=== PATIENT | female | born 1970 | race Caucasian/White ===

== ENCOUNTER → 2017-05-05 | Outpatient (CLI) | payer BC ==
[~2017-05-05] MED LIST: AMOX500C2; AMOXIL; ASPI1TAB9 PO; FAMO20TA5; PEPCID; RABE20TA PO; SCR1T1 PO; SULF1TAB38 PO; SUMA100T2 PO; TRAM50TA2 PO; TRM50T; TRM50T PO
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
== END ==
LOC: RAD 08:36
PROVIDERS: ATTEND Orthopaedic Surgery Orthopaedic Surgery of the Spine
DX: M51.26 Other intervertebral disc displacement, lumbar region (principal); M48.06 Spinal stenosis, lumbar region
CPT/HCPCS: 72148

== ENCOUNTER 2020-02-22 16:53 | Inpatient (IN) | payer BC ==
[~2020-02-22] VITALS: Ht 165 cm; Wt 84.0 kg
--- OUTSIDE RECORDS SUMMARY | 2020-02-22 17:07 | XMS REPORT ---
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 [employer] [facility] [place] [facility] Address [address] [address] Care Team Providers Care Electronic Equipment Installer Name Role Phone ZACKARY TRUJILLO Unavailable Unavailable HUERTIRMA, ZACKARY Unavailable HUERTER, ZACKARY Unavailable MARCUS GORMAN Unavailable Unavailable JOVAN STONE Unavailable HUERTER, ZACKARY Unavailable HUERTER, ZACKARY Unavailable HUERTER, ZACKARY Unavailable HUERTER, ZACKARY Unavailable JOSE SILVA Unavailable HUERTER, ZACKARY Unavailable RAYRAY BENITEZ Unavailable RAYRAY BENITEZ Unavailable HUERTER, ZACKARY Unavailable HUERTER, ZACKARY Unavailable HUERTER, ZACKARY Unavailable HUERTER, ZACKARY Unavailable HUERTER, ZACKARY Unavailable HUERTER, ZACKARY Unavailable HUERTER, ZACKARY Unavailable HUERTER, ZACKARY Unavailable HUERTER, ZACKARY Unavailable HUERTER, ZACKARY Unavailable HUERTER, ZACKARY Unavailable HUERTER, ZACKARY Unavailable HUERTER, ZACKARY Unavailable HUERTER, ZACKARY Unavailable HUERTER, ZACKARY Unavailable HUERTER, ZACKARY Unavailable ANNA ORTIZ Unavailable HUERTER, ZACKARY Unavailable Migration, Doctor Unavailable Unavailable Migration, Doctor Unavailable Unavailable Migration, Doctor Unavailable Unavailable Migration, Doctor Unavailable Unavailable Migration, Doctor Unavailable Unavailable Migration, Doctor Unavailable Unavailable Migration, Doctor Unavailable Unavailable Migration, Doctor Unavailable Unavailable Migration, Doctor Unavailable Unavailable Migration, Doctor Unavailable Unavailable HUERTIRMA, ZACKARY Gustafson Unavailable Unavailable Migration, Doctor Unavailable Unavailable Migration, Doctor Unavailable Unavailable MADL, JOSE Unavailable HUERTER, ZACKARY Unavailable HUERTER, ZACKARY Unavailable MADELINE, SHABNAM Unavailable MADELINE, SHABNAM Unavailable MADL, JOSE Unavailable Migration, Doctor Unavailable Unavailable MADELINE, SHABNAM Unavailable MADELINE, SHABNAM Unavailable Migration, Doctor Unavailable Unavailable ZACKARY TRUJILLO Unavailable MADELINE, SHABNAM Unavailable MADELINE, SHABNAM Unavailable MADELINE, SHABNAM Unavailable MADELINE, SHABNAM Unavailable MADELINE, SHABNAM Unavailable MADL, JOSE Unavailable HUZACKARY WILLIAM Unavailable MADELINE, SHABNAM Unavailable MADELINE, SHABNAM Unavailable MADELINE, SHABNAM Unavailable MADELINE, SHABNAM Unavailable MADELINE, SHABNAM Unavailable MADELINE, SHABNAM Unavailable MADELINE, SHABNAM Unavailable Unavailable Unavailable ZACKARY TRUJILLO Unavailable SHABNAM CORREA Unavailable ZACKARY TRUJILLO Unavailable MADELINE, SHABNAM Unavailable MADL, JOSE Unavailable MADELINE, SHABNAM Unavailable MADELINE, SHABNAM Unavailable SHABNAM CORREA Unavailable HUZACKARY WILLIAM Unavailable HUERTIRMA, ZACKARY Unavailable HUERTIRMA, ZACKARY Unavailable SHABNAM CORREA Unavailable EVER BRYANT Unavailable SHABNAM CORREA Unavailable Migration, Doctor Unavailable Unavailable SHABNAM CORREA Unavailable Migration, Doctor Unavailable Unavailable Migration, Doctor Unavailable Unavailable Migration, Doctor Unavailable Unavailable SHABNAM CORREA Unavailable ZACKARY TRUJILLO Unavailable SHABNAM CORREA Unavailable SHABNAM CORREA Unavailable SHABNAM CORREA Unavailable SHABNAM CORREA Unavailable SHABNAM CORREA Unavailable Unavailable Unavailable Allergies The data below is from unstructured sourcesNo Known Allergies No Known Allergies No Known Allergies Unknown Allergies Unknown AllergiesNo Known Allergies No Known Allergies No Known Allergies No Known Allergies No Known Allergies No Known Allergies No Known Allergies No Known Allergies No Known Allergies No Known Allergies No Known Allergies No Known Allergies No Known Allergies No Known Allergies No Known Allergies No Known Allergies Unknown Allergies Unknown Allergies Unknown Allergies Unknown Allergies No Information No Information No Information No Information No Information No Information No Information No Information No Information No Information No Information No Information No Information No Information No Information No Information No Information No Information No Information No Information No Information No Information No Information No Information No Information No Information No Information No Information No Information No Information No Information No Information No Information No Information No Information No Information No Information No Information No Information No Information No Information No Information No Information No Information No Information No Information No Information No Information No Information No Information No Information No Information No Information No Information No Information No Information No Information No Information No Information No Information No Information No Information No Information No Information No Information No Information No Information No Information No Information No Information No Information No Information No Information No Information No Information No Information No Information No Information No Information No Information No Information No Information No Information No Information No Information No Information No Information No Information No Information No Information No Information No Information No Information No Information No Information No Information No Information No Information No Information No Information No Information No Information No Information No Information No Information No Information No Information No Information No Information No Information No Information No Information No Information No Information No Information No Information No Information No Information No Information No Information No Information No Information No Information No Information No Information No Information No Information No Information No Information No Information No Information No Information No Information No Information No Information No Information Medications Medication Ingredient Drug Dose Dates Status Sig Sig Care Class(es) (Normalized) (Original) Provid er azithromyci Azithromyci Macrolide 500 mg 10-30-19 Active take 2 Zithromax no n 250 mg n Antimicrobi 15 tablets by Z-Edd 250 mg name oral tablet Translation al mouth once 2 tablet by (1 source.) s: [ daily, then Oral route 1 Zithromax take 1 time per day Z-Edd 250 tablet by for 1 days mg] mouth once then take 1 daily, then tab daily on take 2-5 days 2-5 27 tablets by Oct, 2014 mouth Active ciprofloxac Ciprofloxac Quinolone 500 mg 10-18-19 Active take 1 Cipro 500 mg no in 500 mg in Antimicrobi 13 tablet by take 1 nam e oral tablet Translation al mouth every tablet by (1 source.) s: [ Cipro twelve hours Oral route 500 mg] every 12 hours for 5 day(s) Oct, Active doxycycline Doxycycline Tetracyclin 100 mg 07-02-20 Active no Doxycycline no hyclate 100 Translation e-class 18 - information Hyclate 10 0 name mg oral s: [ Drug 07-09-20 mg Orally capsule (1 Doxycycline 18 twice a day source.) Hyclate 100 1 capsule mg] 12h Jun, Jul, 7 days Active meclizine Meclizine Antiemetic 25 mg 11-13-19 Active take 1 mec lizine 25 no hydrochlori Translation 15 tablet by mg 1 tablet name de 25 mg s: [ mouth four by Oral oral tablet meclizine times daily route 4 (1 source.) 25 mg] as needed times per day PRN Nov, Active predniSONE predniSONE no 40 mg 01-01-20 Active take 2 Predn iSONE no 20 mg oral Translation information 14 tablets by 20 mg 2 name tablet (1 s: [ mouth once tablet by source.) PredniSONE daily Oral route 1 20 mg] time per day for 5 day(s) Dec, Active pseudoePHED Pseudoephed alpha-Adren 60 mg 10-15-19 Active no SudoGest 60 no rine rine ergic 18 information mg Orally name hydrochlori Translation Agonist every 6 hrs de 60 mg s: [ 1 tablet as oral tablet SudoGest 60 needed 6h 12 (1 source.) mg] Oct, 2017 5 days Active Problems Active Problems Problem Normalized Date Last Normalized Normalized Provider Fa cility Classification Problem(s) Recorded Problem Problem Sta tus Duration Thyroid Acquired Chronic Active Doctor Community disorders (20 hypothyroidism [facility] sources.) Translations: of [facility] [ Acquired [place] ([address]855) hypothyroidism , - Acquired hypothyroidism E03.9] Deficiency and Anemia, Episodic Active WILLIAM CORREIA MD Not Available other anemia unspecified (53485) (3 sources.) Abdominal Diaphragmatic Episodic Active no name no infor mation hernia (2 hernia without sources.) mention of obstruction or gangrene Esophageal Gastro-esophag Chronic Active [facility] disorders (20 eal reflux [address] [place] [address] sources.) disease of [facility] without [place] (94404) esophagitis Translations: [ - Gastro-esophag eal reflux disease without esophagitis K21.9, Gastro-esophag eal reflux disease without esophagitis, Gastro-esophag eal reflux disease without esophagitis] Headache; Headache Episodic Active [facility] including Translations: [address] [place] [address] migraine (20 [ - [facility] [place] sources.) headache R51] [place] ([address]11) Headache; Migraine Chronic Active Doctor Community including without aura, [facility] migraine (20 not of [facility] sources.) intractable, [place] ([address]84) without status migrainosus Translations: [ - Migraine without aura and without status migrainosus, not intractable G43.009, Migraine without aura and without status migrainosus, not intractable, Migraine without aura and without status migrainosus, not intractable] Past or Other Problems Problem Normalized Date Last Normalized Normalized Provider Fa cility Classification Problem(s) Recorded Problem Problem Sta tus Duration Spondylosis; Other Chronic Completed DONTRELL IPSEN , Not Av ailable intervertebral intervertebral (14398) disc disc disorders; displacement, other back lumbar region problems (2 Translations: sources.) [ SPINAL STENOSIS, LUMBAR REGION] Procedures Procedure Normalized Procedure Procedure Result Performer Facility Date 06-17-2014 Assay of magnesium no information no name [facility] ([id number]) 06-17-2014 Assay of thyroid no information no name [facility] stimulating hormone [facility] ([id number]) 09-28-2014 Blood count complete no information no name [facility] auto&auto difrntl [facility] (97313) 06-17-2014 Blood count complete no information no name [facility] auto&auto difrntl [facility] (78846) 11-27-2013 Blood count complete no information no name [facility] auto&auto difrntl wbc Center [facility] (61664) 06-16-2013 Blood count complete no information no name [facility] auto&auto difrntl wbc Center [facility] (39164) 09-28-2014 Collection venous no information no name [facility] blood venipuncture [facility] (10439) 06-17-2014 Collection venous no information no name [facility] blood venipuncture [facility] (25985) 11-27-2013 Collection venous no information no name [facility] blood venipuncture [facility] (03952) 06-17-2014 Comprehensive no information no name [facility] metabolic panel [facility] (00216) 06-23-2013 Ct abdomen & pelvis no information no name [facility] w/o contrst 1/> body [facility] (70457) 06-17-2014 Ecg routine ecg no information no name [facility] w/least 12 lds trcg [facility] w/o i&r [place] ([address]) 10-07-2014 Echo tthrc r-t 2d no information no name [facility] w/wom-mode compl [facility] spec&colr d [place] (16721) 10-07-2014 Gonadotropin chorionic no information no name [facility] Health qualitative [facility] (01290) 06-17-2014 Lipid panel no information no name [facility] H ealth [facility] (63641) 12-31-2013 Mri spinal canal no information no name [facility] lumbar w/o contrast [facility] (05987) 10-07-2014 Myocardial spect no information no name [facility] multiple studies [facility] (77470) 10-07-2014 Noninvasive ear/pulse [facility] information [facility] single deter [facility] (68497) 06-16-2014 Xtrnl ecg & 48 hr no information no name [facility] (48902) Immunizations The data below is from unstructured sources No Known Immunizations No Known Immunizations No Known ImmunizationsNo immunization records.No immunization records. No Known Immunizations No Known Immunizations No Known Immunizations No Known Immunizations No Known Immunizations No Known Immunizations No Known Immunizations No Known Immunizations No Known Immunizations No Known Immunizations No Known Immunizations No Known Immunizations No Known Immunizations No Known Immunizations No Known Immunizations No Known Immunizations No Known Immunizations No Known Immunizations No Known Immunizations No Known Immunizations No Known Immunizations No Known Immunizations No Known Immunizations No Known Immunizations No Known Immunizations No Known Immunizations No Known Immunizations No Known Immunizations No Known Immunizations No Known Immunizations No Known Immunizations No Known Immunizations No Known Immunizations No Known Immunizations No Known Immunizations No Known Immunizations No Known Immunizations No Known Immunizations No Known Immunizations No Known Immunizations No Known Immunizations No Known Immunizations No Known Immunizations No Known Immunizations No Known Immunizations No Known Immunizations No Known Immunizations No Known Immunizations No Known Immunizations No Known Immunizations No Known Immunizations No Known Immunizations No Known Immunizations No Known Immunizations No Known Immunizations No Known Immunizations No Known Immunizations No Known Immunizations No Known Immunizations No Known Immunizations No Known Immunizations No Known Immunizations No Known Immunizations No Known Immunizations No Known Immunizations No Known Immunizations No Known Immunizations No Known Immunizations No Known Immunizations No Known Immunizations No Known Immunizations No Known Immunizations No Known Immunizations No Known Immunizations No Known Immunizations No Known Immunizations No Known Immunizations No Known Immunizations No Known Immunizations No Known Immunizations No Known Immunizations No Known Immunizations No Known Immunizations No Known Immunizations No Known Immunizations No Known Immunizations No Known Immunizations No Known Immunizations No Known Immunizations No Known Immunizations No Known Immunizations No Known Immunizations No Known Immunizations No Known Immunizations No Known Immunizations No Known Immunizations No Known Immunizations No Known Immunizations No Known Immunizations No Known Immunizations No Known Immunizations No Known Immunizations No Known Immunizations No Known Immunizations No Known Immunizations No Known Immunizations No Known Immunizations No Known Immunizations No Known Immunizations No Known Immunizations No Known Immunizations No Known Immunizations No Known Immunizations No Known Immunizations No Known Immunizations No Known Immunizations No Known Immunizations No Known Immunizations No Known Immunizations No Known Immunizations No Known Immunizations No Known Immunizations No Known Immunizations No Known Immunizations No Known Immunizations No Known Immunizations No Known Immunizations No Known Immunizations No Known Immunizations No Known Immunizations No Known Immunizations No Known Immunizations No Known Immunizations No Known Immunizations No Known Immunizations No Known Immunizations No Known Immunizations No Known Immunizations No Known Immunizations No Known Immunizations No Known Immunizations No Known Immunizations No Known Immunizations No Known Immunizations No Known Immunizations No Known Immunizations No Known Immunizations No Known Immunizations No Known Immunizations No Known Immunizations Results Test Name Value Interpretation Reference Range Date Time Fa cility (Normalized) (Normalized) (Medline Reference) not yet categorized on null BLO 1+ (no code) [facility] (79633) Exp date [id number] (no code) [facility] (43175) KET clear~yellow~non (no code) [facility] e~neg~neg~neg [facility] (84707) LISA neg~3+ (no code) [facility] (98736) SG 1.010 (no code) [facility] (44560) URO 0.2 (no code) [facility] (80651) laboratory on null pH (Bld) 7.0 [pH] (no code) 7.38 - 7.42 [pH] [facility] (95094) Protein (U) Negative (no code) 0 - 20 mg/dL [facility] [Mass/Vol] [facility] (70187) urinalysis on 2019-01-01 Amphetamines Ql Negative (no code) [facility] th (U) [facility] (67026) Benzodiazepines Negative (no code) [facility] Ql (U) [facility] (31912) Benzoylecgonine Negative (no code) [facility] Ql (U) [facility] (81996) Creatinine (U) 11.9 mg/dL (L) Critical access hospital [Mass/Vol] [facility] (17405) Methadone Ql (U) Negative (no code) [facility] (34170) Opiates Ql (U) Negative (no code) [facility] (79694) Phencyclidine Ql Negative (no code) [facility] lt (U) [facility] (73166) Specific gravity 1.002 (L) [facility] lt (U) [[facility]] [facility] (01229) Tetrahydrocannab Negative (no code) [facility] inol Ql (U) [facility] (43557) other on 2019-01-01 Alphahydroxyalpr Negative (no code) [facility] azolam [facility] (20309) Alphahydroxymida Negative (no code) [facility] zolam [facility] (78967) Alphahydroxytria Negative (no code) [facility] (45742) Aminoclonazepam Negative (no code) [facility] (28316) Hydroxyethylflur Negative (no code) [facility] azepam [facility] (63812) Lorazepam Negative (no code) [facility] (66661) Nordiazepam Negative (no code) [facility] (95014) Oxazepam Negative (no code) [facility] (68765) Temazepam Negative (no code) [facility] (79640) Abnormal no information (no code) Critical access hospital Specimen [facility] Test: [facility] (22043) Barbiturates Negative (no code) [facility] (32263) COMMENT no information (no code) [facility] (62088) medMATCH CONSISTENT (no code) [facility] (60302) medMATCH CONSISTENT (no code) [facility] (23666) medMATCH aOH CONSISTENT (no code) [facility] alprazol[facility] (69783) medMATCH aOH CONSISTENT (no code) [facility] (85267) medMATCH aOH CONSISTENT (no code) [facility] triazol[facility] (35569) medMATCH CONSISTENT (no code) [facility] Barbiturates [facility] (79422) medMATCH Cocaine CONSISTENT (no code) [facility] Metab [facility] (99135) medMATCH CONSISTENT (no code) [facility] Lorazepam [facility] (25605) medMATCH CONSISTENT (no code) [facility] Marijuana Metab [facility] (18263) medMATCH CONSISTENT (no code) [facility] Methadone Metab [facility] (24203) medMATCH INCONSISTENT (no code) [facility] Nordiazepam [facility] (42329) medMATCH OH,Et CONSISTENT (no code) [facility] flurazepam [facility] (98554) medMATCH Opiates CONSISTENT (no code) [facility] (52336) medMATCH INCONSISTENT (no code) [facility] Oxazep[facility] (69338) medMATCH CONSISTENT (no code) [facility] Oxycodone [facility] (33397) medMATCH CONSISTENT (no code) [facility] Phencyclidine [facility] (19942) medMATCH INCONSISTENT (no code) [facility] Temazep[facility] (67374) Oxidants Ql (U) Negative (no code) [facility] Heal th [facility] (73406) Oxycodone Ql (U) Negative (no code) [facility] (16579) pH (U) 6.81 [pH] (no code) 4.6 - 8 [pH] [facility] (40125) Prescribed Drug Tramadol (no code) [facility] 1 [facility] (63460) Prescribed Drug Diazepam (no code) [facility] 2 [facility] (12672) urinalysis on 2018-12-12 Amphetamines Ql Negative (no code) [facility] (U) [facility] (93565) Benzodiazepines Positive (A) [facility] Ql (U) [facility] (94795) Benzoylecgonine Negative (no code) [facility] Ql (U) [facility] (19359) Creatinine (U) 84.2 mg/dL (no code) Critical access hospital [Mass/Vol] [facility] (01709) Methadone Ql (U) Negative (no code) [facility] (72965) Opiates Ql (U) Positive (A) [facility] (24680) Phencyclidine Ql Negative (no code) [facility] (U) [facility] (92073) Tetrahydrocannab Negative (no code) [facility] inol Ql (U) [facility] (59054) other on 2018-12-12 Alphahydroxyalpr Negative (no code) [facility] azolam [facility] (24057) Alphahydroxymida Negative (no code) [facility] zolam [facility] (71587) Alphahydroxytria Negative (no code) [facility] (53886) Aminoclonazepam Negative (no code) [facility] (13848) Codeine Negative (no code) [facility] (30516) Hydrocodone 95 (H) [facility] (73498) Hydromorphone 159 (H) [facility] (45555) Hydroxyethylflur Negative (no code) [facility]20722[facility] Lorazepam Negative (no code) [facility] (81581) Morphine Negative (no code) [facility] (35377) Nordiazepam 343 (H) [facility] (90048) Norhydrocodone 591 (H) [facility] (86645) Oxazepam 466 (H) [facility] (08423) Temazepam 786 (H) [facility] (76232) Barbiturates Negative (no code) [facility] (75176) COMMENT no information (no code) [facility] (24444) medMATCH CONSISTENT (no code) [facility] Aminoclonazepam [facility] (48130) medMATCH CONSISTENT (no code) [facility] Amphetamines [facility] (84791) medMATCH aOH CONSISTENT (no code) [facility] alprazolam [facility] (05679) medMATCH aOH CONSISTENT (no code) [facility] midazolam [facility] (27236) medMATCH aOH CONSISTENT (no code) [facility] triazolam [facility] ([id number]) medMATCH CONSISTENT (no code) [facility] Barbiturates [facility] ([id number]) medMATCH Cocaine CONSISTENT (no code) [facility] Metab [facility] (61550) medMATCH Codeine CONSISTENT (no code) [facility] (30814) medMATCH INCONSISTENT (no code) [facility] Hydrocodone [facility] (12712) medMATCH INCONSISTENT (no code) [facility] Hydromorphone [facility] (70007) medMATCH CONSISTENT (no code) [facility] Lorazepam [facility] (02578) medMATCH CONSISTENT (no code) [facility] Marijuana Metab [facility] (16739) medMATCH CONSISTENT (no code) [facility] Methadone Metab [facility] (21882) medMATCH CONSISTENT (no code) [facility] Morphine [facility] (55028) medMATCH CONSISTENT (no code) [facility] Nordiazepam [facility] (25909) medMATCH INCONSISTENT (no code) [facility] Norhydrocodone [facility] (51095) medMATCH [place],Et CONSISTENT (no code) [facility] Healt flurazepam [facility] (41320) medMATCH CONSISTENT (no code) [facility] Oxazepam [facility] (72493) medMATCH CONSISTENT (no code) [facility] Oxycodone [facility] (37905) medMATCH CONSISTENT (no code) [facility] Phencyclidine [facility] (65542) medMATCH CONSISTENT (no code) Critical access hospital Temazepam [facility] (00043) Oxidants Ql (U) Negative (no code) [facility] (68897) Oxycodone Ql (U) Negative (no code) [facility] Hea [facility] (44622) pH (U) 7.19 [pH] (no code) 4.6 - 8 [pH] [facility] (07463) Prescribed Drug Tramadol (no code) [facility] 1 [facility] (83017) Prescribed Drug Diazepam (no code) [facility] 2 [facility] (21059) thyroid on 2018-12-05 Free T4 0.8 ng/dL (N) 0.9 - 2.2 ng/dL [facility] [Mass/Vol] [facility] (95605) TSH Qn 2.43 m[IU]/L (N) 0.4 - 4 m[IU]/L [facility] (21710) laboratory on 2018-12-05 Albumin 4.0 g/dL (N) 3.4 - 5.4 g/dL [facility] [Mass/Vol] [facility] (16451) Albumin/Globulin 1.4 {ratio} (N) 1 - 2.5 {ratio} Comm [facility] [Mass ratio] [facility] (86676) ALP [Catalytic 60 U/L (N) 44 - 147 U/L [facility] Health activity/Vol] [facility] (09366) ALT [Catalytic 9 U/L (N) 4 - 40 U/L [facility] ealt activity/Vol] [facility] (71025) AST [Catalytic 19 U/L (N) 10 - 34 U/L [facility] activity/Vol] [facility] (40445) Bilirubin 0.3 mg/dL (N) 0.1 - 1.2 mg/dL [facility] [Mass/Vol] [facility] (34639) Calcium 9.7 mg/dL (N) 8.5 - 10.2 mg/dL [facility] [Mass/Vol] [facility] (99619) Chloride 103 mmol/L (N) 95 - 106 mmol/L [facility] [Moles/Vol] [facility] (79569) CO2 [Moles/Vol] 28 mmol/L (N) 23 - 29 mmol/L [facility] (02902) Creatinine 0.76 mg/dL (N) [facility] h [Mass/Vol] [facility] (93100) GFR/1.73 sq M 108 (N) 90 - 120 [facility] predicted among mL/min/{1.73_m2} mL/min/{1.73_m2} [facility] f [facility] blacks MDRD [facility] (S/P/Bld) [Vol (28018) rate/Area] GFR/1.73 sq 93 (N) 90 - 120 Community [facility]al th M.predicted MDRD mL/min/{1.73_m2} mL/min/{1.73_m2} [facility] (S/P/Bld) [Vol [facility] rate/Area] (20212) Globulin (S) 2.8 g/dL (N) 2 - 3.5 g/dL [facility] ealt [Mass/Vol] [facility] (60813) Glucose 98 mg/dL (N) 60 - 125 mg/dL [facility] [Mass/Vol] [facility] (51721) Potassium 4.2 mmol/L (N) 3.7 - 5.2 mmol/L [facility] [Moles/Vol] [facility] (28245) Protein 6.8 g/dL (N) 6.4 - 8.3 g/dL [facility] [Mass/Vol] [facility] (01600) Sodium 139 mmol/L (N) 135 - 145 mmol/L [facility] [Moles/Vol] [facility] (84830) Urea nitrogen 7 mg/dL (N) 7 - 20 mg/dL [facility] [Mass/Vol] [facility] (79505) Urea NOT APPLICABLE (no code) [facility]alt [facility] nitrogen/Creatin [facility] ine [Mass ratio] [facility] (42759) other on 2017-09-10 MYCOPLASMA 97 (no code) Community [facility]alt [facility] PNEUMONIAE [facility] (IGM) [facility] (21039) Vital Signs Vital Sign Value Interpretation Reference Date Time Care Prov ider Facility (Normalized) (Normalized) Range BMI (Body Mass 29.4 kg/m2 (no code) 15 - 25 kg/m2 07-02-2018 HILDA ORLANDO [facility] Community Index) 17:00-0400 29118 [facility] (45009) Body height 165.1 cm (no code) cm 06-16-2014 Doctor Com ivy 17:20-0400 Migration [facility] (48067) Body height 165.1 cm (no code) cm 12-31-2013 [facility] 18:35-0400 61238 [facility] (76774) Body height 165.1 cm (no code) cm 11-27-2013 ZACKARY NATALIIA [facility] 16:50-0400 29671 [facility] (91999) Body height 165.1 cm (no code) cm 06-16-2013 [facility] 13:28-0400 87577 (Other Health Center Phone: of [facility] (02631) Body 98 [degF] (no code) 97.8 - 99.0 07-02-2018 ZACKARY CRAWFORD [facility] Temperature [degF] 17:00-0400 10729 Health Cente r of [facility] (07035) Body 98.1 [degF] (no code) 97.8 - 99.0 11-12-2014 ZACKARY WILLIAMSON [facility] Temperature [degF] 12:57-0400 32561 Health Cente r of [facility] (23980) Body 98.1 [degF] (no code) 97.8 - 99.0 10-30-2014 ZACKARY IRMA [facility] Temperature [degF] 14:35-0500 77140 Health Cente r of [facility] (02825) Body 99.7 [degF] (no code) 97.8 - 99.0 10-15-2014 ZACKARY WILLIAMSON [facility] Temperature [degF] 16:24-0500 99598 Health Cent[facility] r [facility] (36231) Body 98.9 [degF] (no code) 97.8 - 99.0 09-28-2014 JOSE [facility] Temperature [degF] 15:22-0500 62697 Health Cente r of [facility] (81288) Body 98.9 [degF] (no code) 97.8 - 99.0 06-16-2014 [facility] temperature [degF] 17:20-0400 [facility] (36684) Body 98.9 [degF] (no code) 97.8 - 99.0 06-13-2014 [facility] Community Temperature [degF] 14:10-0400 36586 Health Cent[facility] (39891) Body 97.4 [degF] (no code) 97.8 - 99.0 05-05-2014 SHABNAM [facility] Temperature [degF] 16:11-0400 93592 Health Cent[facility] r [facility] (13352) Body 99 [degF] (no code) 97.8 - 99.0 12-31-2013 SHABNAM [facility] temperature [degF] 18:35-0400 10820 Health Cent[facility] r [facility] (31760) Body 97.5 [degF] (no code) 97.8 - 99.0 11-27-2013 ZACKARY WILLIAMSON [facility] temperature [degF] 16:50-0400 39209 Health Cente r of [facility] (94153) Body 98.5 [degF] (no code) 97.8 - 99.0 06-16-2013 SHABNAM ROBLERO [facility] temperature [degF] 13:280400 41365 (Other Health Cent er Phone: of [facility] ) [place] (20340) Body weight 80.54 kg (no code) kg 11-12-2014 [facility] 12:57-0400 11091 [facility] (91095) Body weight 80.29 kg (no code) kg 10-30-2014 [facility] 14:35-0500 60191 [facility] (73773) Body weight 78.93 kg (no code) kg 10-15-2014 [facility] 16:24-[address] [place] [address] (40574) Body weight 79.84 kg (no code) kg 10-07-2014 Doctor Com munity 08:39-0500 [facility] (03185) Body weight 81.19 kg (no code) kg 09-28-2014 JOSE SILVA [facility] 15:22-0500 12957 [facility] (64535) Body weight 78.79 kg (no code) kg 06-16-2014 Doctor Com munity 17:20-0400 [facility] (88726) Body weight 79.43 kg (no code) kg 06-13-2014 SHABNAM CORREA [facility] 14:10-[id number] [place] [address] ([id number]) Body weight 76.89 kg (no code) kg 05-05-2014 SHABNAM [facility] 16:11-[address] [place] [address] (72075) Body weight 78.84 kg (no code) kg 12-31-2013 SHABNAM [facility] 18:35-[id number] [place] [address] (49877) Body weight 77.88 kg (no code) kg 11-27-2013 [facility] 16:50-0400 82088 [facility] (16755) Body weight 74.71 kg (no code) kg 06-16-2013 [facility] 13:28-0400 50953 (Other Health Center Phone: of [facility] (49665) Height 165.1 cm (no code) cm 07-02-2018 ZACKARY [facility] 17:00-[id number] [place] [address] (50181) Height 165.1 cm (no code) cm 11-12-2014 ZACKARY [facility] 12:57-[id number] [place] [address] (16515) Height 165.1 cm (no code) cm 10-30-2014 ZACKARY [facility] 14:35-[address] [place] [address] (81647) Height 165.1 cm (no code) cm 10-15-2014 ZACKARY [facility] 16:24-[address] [place] [address] (07590) Height 165.1 cm (no code) cm 10-07-2014 Doctor Commun ity 08:39-0500 Migration [facility] (54029) Height 165.1 cm (no code) cm 09-28-2014 JOSE SILVA Com munity 15:22-[address] [place] [address] (52196) Height 165.1 cm (no code) cm 06-13-2014 SHABNAM MADELINE Fl [facility] 14:100400 [address] [place] [address] (06994) Height 165.1 cm (no code) cm 05-05-2014 [facility] mmunity 16:11-[id number] [place] [address] ([id number]) Weight 80.15 kg (no code) kg 07-02-2018 ZACKARY [facility] 17:00-[address] [place] [address] ([id number]) Interventions No Information Plan of Treatment The data below is from unstructured sources Activity Details Follow Up 3 Months Reason: Activity Details Follow Up if not improving with PCP or reg follow up Reason: Activity Details Follow Up prn Reason: Activity Details Follow Up 4 Months Reason: Goals No Information Social History The data below is from unstructured sources History Response Recorde d Date/Time Hx Family Cancer Y GRANDPARENTS BOTH SIDES OF FAMILY 04/02/13 11:45pm Hx Family Cardiac Disorders Y 04/02/13 11:45pm Hx Family Myocardial Infarction Y PA TERNAL GRANDFATHER, PATIENTS SON AT AGE 16. 04/02/13 11:45pm History Response Recorde d Date/Time Alcohol Use Denies Use 0 04/02/13 11:45pm Recreational Drug Use N 04/02/13 11:45pm Functional Status The data below is from unstructured sourcesNo functional status results. Mental Status No Information Encounters Encounter Normalized Encounter Encounter Diagnosis Care Provi debbie Organization Date Type 05-22-2019 [facility] Acute cystitis with NADJA HERCULES (no [facility] CARE hematuria phone) CARE (no phone ) 05-22-2019 - 05-22-2019 04-28-2019 [facility] Cervical disc ZACKARY TRUJILLO ( no [facility] - disorder, unspecified, phone) (no mary ne) 04-28-2019 unspecified cervical - region 04-28-2019 10-15-2017 Patient encounter no information no name no or ganization name 09-10-2017 Patient encounter no information no name no or ganization name 09-21-2014 Patient encounter no information no name no or ganization name 06-22-2014 Patient encounter no information no name no or ganization name - 09-20-2014 01-12-2014 Patient encounter no information no name no or ganization name 07-02-2013 Patient encounter no information no name no or ganization name NEGATED Patient encounter no information no name no or ganization name 04-02-2013 - 04-03-2013 08-01-2012 Patient encounter no information no name no or ganization name 10-16-2019 Patient encounter no information ZACKARY TRUJILLO ([facility] o [facility] phone) [facility] (no phone) 10-14-2019 Patient encounter no information (no phone) [facility] procedure [facility] (no phone) 05-22-2019 Patient encounter no information no name no or ganization name procedure 04-28-2019 Patient encounter no information no name no or ganization name procedure 01-01-2019 Patient encounter no information no name no or ganization name procedure 12-12-2018 Patient encounter no information no name no or ganization name procedure 12-05-2018 Patient encounter no information no name no or ganization name procedure 05-05-2017 Patient encounter no information no name no or ganization name procedure 01-08-2020 Telephone encounter Cervical disc ZACKARY HUERTER (no [facility] disorder, unspecified, phone) (no phone) unspecified cervical region 01-05-2020 Telephone encounter Cervical disc ZACKARY HUERTER (no [facility] disorder, unspecified, phone) (no phone) unspecified cervical region 10-16-2019 Telephone encounter Cervical disc ZACKARY HUERTER (no [facility] disorder, unspecified, phone) (no phone) unspecified cervical region 09-17-2019 Telephone encounter Cervical disc ZACKARY HUERTER (no [facility] disorder, unspecified, phone) (no phone) unspecified cervical region 08-21-2019 Telephone encounter Cervical disc ZACKARY SHEPHERDERTER (no [facility] disorder, unspecified, phone) (no phone) unspecified cervical region 08-07-2019 Telephone encounter no information ZACKARY SHEPHERDERTER (n o [facility] phone) (no phone) 07-24-2019 Telephone encounter Cervical disc ZACKARY HUERTER (no [facility] disorder, unspecified, phone) (no phone) unspecified cervical region 06-25-2019 Telephone encounter Cervical disc ZACKARY SHEPHERDERTER (no [facility] disorder, unspecified, phone) (no phone) unspecified cervical region 05-30-2019 Telephone encounter no information ZACKARY SHEPHERDERTER (n o [facility] - phone) (no phone) 05-30-2019 - 05-30-2019 05-28-2019 Telephone encounter Cervical disc ZACKARY SHEPHERDERTER (no [facility] - disorder, unspecified, phone) (no mary ne) 05-28-2019 unspecified cervical - region 05-28-2019 05-19-2019 Telephone encounter no information ZACKARY SHEPHERDERTER (n o [facility] - phone) (no phone) 05-19-2019 - 05-19-2019 04-30-2019 Telephone encounter Cervical disc ZACKARY SHEPHERDERTER (no [facility] - disorder, unspecified, phone) (no mary ne) 04-30-2019 unspecified cervical - region 04-30-2019 Medical Equipment No Information Payers The data below is from unstructured sources Payer Name Policy Number Subscriber Name Relationship [place] [employer] [facility] [id number] Sudhir Maya 02 History general Narrative - Reported Note Type Note Facility History general Narrative - Reported Type Medical gastric ulcer History Medical pyloric stenosis s/p dilati on History Medical Arthritis History Medical migraine headaches History Medical chronic pain History Medical anemia History Medical MRSA History Medical mitral valve prolapse History Medical heart murmur History Medical asthma History Medical blood transfusion History Surgical oopherectomy (L) History Surgical section x2 History Surgical cholecystectomy History Hospitaliz see surgeries ation History Hospitaliz numerous pneumonias x 4 ation History Hospitaliz flesh eating strep ation History [facility] ([id number]) Summary Purpose eClinicalWorks SubmissioneClinicalWorks SubmissioneClinicalWorks SubmissioneClinicalWorks SubmissioneClinicalWorks SubmissioneClinicalWorks SubmissioneClinicalWorks SubmissioneClinicalWorks SubmissioneClinicalWorks SubmissioneClinicalWorks SubmissioneClinicalWorks SubmissioneClinicalWorks SubmissioneClinicalWorks SubmissioneClinicalWorks Submission Advance Directives Directive Response Recor ded Date Advance Directives N 11:45pm Health Care Power of Die Designer Apprentice N 04/02/13 11:45pm Organ Donor Y 04/02/13 1 1:45pm Directive Response Recor ded Date/Time Advance Directives No 11:45pm Health Care Power of Die Designer Apprentice No 04/02/13 11:45pm Organ Donor Yes 04/02/13 11:45pm Discharge Instructions No hospital discharge instructions. Additional Source Comments This clinical document has been generated using [employer] software that has been certified by the Office of the National Coordinator for Health Information Technology (ONC 15.99.04.3023.Diam.31.00.0.918951) and the National Committee for Image Archivist (NCQA, as an eMeasure certified technology). FOR RECORDS PERTAINING TO PATIENTS WHO ARE OR HAVE BEEN ENROLLED IN A CHEMICAL D EPENDENCY/SUBSTANCE ABUSE PROGRAM, SOME INFORMATION MAY BE OMITTED. This clinica l summary was aggregated from multiple sources. Caution should be exercised in using it in the provision of clinical care. This summary normalizes information from multiple sources, and as a consequence, information in this document may ma terially change the coding, format and clinical context of patient data. In troy tion, data may be omitted in some cases. CLINICAL DECISIONS SHOULD BE BASED ON T HE PRIMARY CLINICAL RECORDS. [employer] provides no warranty or guara ntee of the accuracy or completeness of information in this document.The followi ng information is based on time limited clinical information UNRECOGNIZED CONTENT PROVIDED BELOW FOR UNRECOGNIZED SECTION MEDICAL (GENERAL) HISTORY Type Description Date Medical History gastric ulcer Medical History pyloric stenosis s/p dilation Medical History Arthritis Medical History migraine headaches Medical History chronic pain Medical History anemia Medical History MRSA Medical History mitral valve prolapse Medical History heart murmur Medical History asthma Medical History blood transfusion Surgical History oopherectomy (L) Surgical History section x2 Surgical History cholecystectomy Hospitalization History see surgeries Hospitalization History numerous pne umonias x 4 Hospitalization History flesh eating strep UNRECOGNIZED CONTENT PROVIDED BELOW FOR UNRECOGNIZED SECTION REASON FOR VISIT ValiumControlled refill- EarlyControlled med refillControlled Med RefillControll ed Med Refill 06/28Controlled Med Refill 07/24c/o Sinus Infection b9aeiee kPage mA , severe headaches with facial pain kPage mA , has alot of drainage but also has some pressure KPage MARIAH [id number]-MigEMR- [id number]-MigEMR-MigControlled Med Refill
--- OUTSIDE RECORDS SUMMARY | 2020-02-22 17:07 | XMS REPORT ---
Author Author Marion CORREA Organization [facility] Address [address] [place] [address] Care Team Providers Care Crown Presser Name Role Phone SHABNAM CORREA Unavailable PROBLEMS Type Condition ICD9-CM Code OVC80-YE Code Onset Dates Condition S tatus SNOMED Code Problem Acquired hypothyroidism E03.9 Active 894026447 Problem Gastro-esophageal reflux disease without esophagitis K21.9 Active 596926154 Problem Cervical disc disease M50.90 Active 578793214 Problem Dyspepsia R10.13 Active 417419570 Problem Migraine without aura and without status migrain osus, not intractable G43.009 Active [id number] ALLERGIES No Information ENCOUNTERS Encounter Location Date Diagnosis [facility] [address] [id number] [address] [place] [address] January, Cervical disc disease M50.[address] 340B [id number] [place] [address] January, Cervical disc disease M50.90 [facility] [address] [id number] [address] [place] [address] Dec, [facility] [address] [id number] [address] [place] [address] Nov, [facility] [address] [id number] [address] [place] [address] Nov, Cervical disc disease M50.90 [facility] [address] [id number] [address] [place] [address] Oct, [facility] [address] [id number] [address] [place] [address] Oct, Cervical disc disease M50.90 [facility] [address] [id number] [address] [place] [address] 13 Oct, 2019 Contusion of left knee, init ial encounter S80.02XA [facility] [address] [id number] [address] [place] [address] 13 Oct, 2019 Cervical disc disease M50.90 [facility] [address] [id number] [address] [place] [address] 12 Oct, 2019 [facility] [address] [id number] [address] [place] [address] Oct, Acute pain of left knee M25. 562 [facility] [address] [id number] [address] [place] [address] Sep, [facility] [address] [id number] [address] [place] [address] Sep, Cervical disc disease M50.90 [facility] [address] [id number] [address] [place] [address] Sep, Cervical disc disease M50.90 [facility] [address] [id number] [address] [place] [address] Aug, Cervical disc disease M50.90 [facility] [address] [id number] [address] [place] [address] Aug, [facility] [address] [id number] [address] [place] [address] Jul, Cervical disc disease M50.90 [facility] [address] [id number] [address] [place] [address] Jun, Cervical disc disease M50.90 [facility] [address] [id number] [address] [place] [address] May, [facility] [address] [id number] [address] [place] [address] May, Cervical disc disease M50.90 [facility] [address] [id number] [address] [place] [address] May, Acute cystitis with hematuri a N30.01 and UTI symptoms R39.9 [facility] [address] [id number] [address] [place] [address] May, [facility] [address] [id number] [address] [place] [address] Apr, Cervical disc disease M50.90 [facility] [address] [id number] [address] [place] [address] Apr, Cervical disc disease M50.90 ; Gastro-esophageal reflux disease without esophagitis K21.9 and Sinus headache R51 [facility] [address] [id number] [address] [place] [address] Apr, [facility] [address] [id number] [address] [place] [address] Apr, Cervical disc disease M50.90 [facility] [address] [id number] [address] [place] [address] Mar, [facility] [address] [id number] [address] [place] [address] Mar, Cervical disc disease M50.90 [facility] [address] [id number] [address] [place] [address] Feb, [address] [id number] [address] Feb, Cervical disc disease M50.[address] 340[id number] [address] January, [facility] [address] [id number] [address] [place] [address] January, Cervical disc disease M50.90 [facility] [address] [id number] [address] [place] [address] January, Cervical disc disease M50.90 [facility] [address] [id number] [address] [place] [address] Dec, Cervical disc disease M50.90 [facility] [address] [id number] [address] [place] [address] Dec, Cervical disc disease M50.90 [facility] [address] [id number] [address] [place] [address] Dec, Cervical disc disease M50.90 [facility] [address] [id number] [address] [place] [address] Dec, Cervical disc disease M50.90 ; Acquired hypothyroidism E03.9 and Migraine without aura and without status migrainosus, not intractable G43.009 [facility] [address] [id number] [address] [place] [address] Nov, [facility] [address] [id number] [address] [place] [address] Nov, Cervical disc disease M50.90 [facility] [address] [id number] [address] [place] [address] Oct, Cervical disc disease M50.90 [facility] [address] [id number] [address] [place] [address] Sep, [facility] [address] [id number] [address] [place] [address] Sep, Cervical disc disease M50.90 [facility] [address] [id number] [address] [place] [address] Aug, Cervical disc disease M50.90 [facility] [address] [id number] [address] [place] [address] Jul, Cervical disc disease M50.90 [facility] [address] [id number] [address] [place] [address] Jun, Acute recurrent pansinusitis J01.41 and Cervical disc disease M50.90 [facility] [address] [id number] [address] [place] [address] Jun, Cervical disc disease M50.90 [facility] [address] [id number] [address] [place] [address] May, Cervical disc disease M50.90 [facility] [address] [id number] [address] [place] [address] Apr, Cervical disc disease M50.90 [facility] [address] [id number] [address] [place] [address] Mar, Cervical disc disease M50.90 [facility] [address] [id number] [address] [place] [address] Mar, [facility] [address] [id number] [address] [place] [address] Mar, Cervical disc disease M50.90 [facility] [address] [id number] [address] [place] [address] Feb, Cervical disc disease M50.90 [facility] [address] [id number] [address] [place] [address] January, Cervical disc disease M50.90 [facility] [address] [id number] [address] [place] [address] Dec, [facility] [address] [id number] [address] [place] [address] Dec, Cervical disc disease M50.90 [facility] [address] [id number] [address] [place] [address] Nov, Cervical disc disease M50.90 [facility] [address] [id number] [address] [place] [address] Nov, Cervical disc disease M50.90 [facility] [address] [id number] [address] [place] [address] Oct, Cervical disc disease M50.90 [facility] [address] [id number] [address] [place] [address] Oct, Cervical disc disease M50.90 and Acute non-recurrent maxillary sinusitis J01.00 [facility] [address] [id number] [address] [place] [address] Sep, Cervical disc disease M50.90 [facility] [address] [id number] [address] [place] [address] Sep, [facility] [address] [id number] [address] [place] [address] Sep, Fatigue, unspecified type R5 3.83 and Cough R05 [facility] [address] [id number] [address] [place] [address] Aug, Cervical disc disease M50.90 [facility] [address] [id number] [address] [place] [address] Aug, Sore throat J02.9 ; Canker s ore K12.0 and History of anemia Z86.2 [facility] [address] [id number] [address] [place] [address] Jul, Cervical disc disease M50.90 [place] [id number] [id number] [address] [place] [address] Jun, Cervical disc disease M50.90 [facility] [address] [id number] [address] [place] [address] Jun, Cervical disc disease M50.90 [facility] [address] [id number] [address] [place] [address] May, Cervical disc disease M50.90 [facility] [address] [id number] [address] [place] [address] Apr, Cervical disc disease M50.90 [facility] [address] [id number] [address] [place] [address] Apr, [facility] [address] [id number] [address] [place] [address] Feb, Cervical disc disease M50.90 [place] [address] [id number] [address] [place] [address] January, Cervical disc disease M50.90 [facility] [address] [id number] [address] [place] [address] Nov, [facility] [address] [id number] [address] [place] [address] Nov, Cervical disc disease M50.90 [facility] [address] [id number] [address] [place] [address] Nov, Acute cystitis with hematuri a N30.01 and Dysuria R30.0 [facility] [address] [place] [id number] [place] [address] Oct, Cervical disc disease M50.90 and Acute non-recurrent frontal sinusitis J01.10 [place] [address] [place] [place] [id number] [address] [place] [address] Sep, Neck pain M54.2 [facility] [address] [place] [id number] [address] [place] [address] Sep, [facility] [address] [place] [id number] [place] [address] Aug, Cervical disc disease M50.90 [facility] [address] [id number] [address] [place] [address] Jul, [facility] [address] [place] [id number] [address] [place] [address] Jun, [facility] [address] [place] [id number] [address] [place] [address] May, [place] [address] [place] [id number] [place] [address] May, Screening for diabetes emilio tus Z13.1 ; Chronic fatigue R53.82 and Edema, unspecified type R60.9 [facility] [address] [place] [address] [id number] [address] [place] [address] Apr, Neck pain M54.2 [facility] [address] [id number] [address] [place] [address], [place] [address] Mar, [facility] [address] [id number] [address] [place] [address] Mar, Neck pain M54.2 [facility] [address] [id number] [address] [place] [address] Feb, Cervical disc disease M50.90 [facility] [address] [id number] [address] [place] [address] Feb, Cervical disc disease M50.90 [facility] [address] [id number] [address] [place] [address] January, [facility] [address] [id number] [address] [place] [address] January, [facility] [address] [id number] [address] [place] [address] January, Cervical disc disease M50.90 [facility] [address] [id number] [address] [place] [address] January, [facility] [address] [id number] [address] [place] [address] January, [facility] [address] [id number] [address] [place] [address] Dec, Cervical disc disease M50.90 [facility] [address] [id number] [address] [place] [address] Nov, Cervical disc disease M50.90 [facility] [address] [id number] [address] [place] [address] Oct, Cervical disc disease M50.90 [facility] [address] [id number] [address] [place] [address] Sep, Cervical disc disease M50.90 [facility] [address] [id number] [address] [place] [address] [id number] 16 Aug, 2015 Dental caries K02.9 and Enco unter for dental examination Z01.20 [facility] [address] [id number] [address] [place] [address] Aug, [facility] [address] [id number] [address] [place] [address] Aug, [facility] [address] [id number] [address] [place] [address] [id number] 08 Aug, 2015 Encounter for dental examina tion Z01.20 [facility] [address] [id number] [address] [place] [address] Jul, [facility] [address] [id number] [address] [place] [address] Jun, Sinusitis J32.9 and Cervical disc disease M50.90 [facility] [address] [id number] [address] [place] [address] Jun, [facility] [address] [id number] [address] [place] [address] 24 May, 2015 [facility] [address] [id number] [address] [place] [address] May, [facility] [address] [id number] [address] [place] [address] May, [facility] [address] [id number] [address] [place] [address] May, [facility] [address] [id number] [address] [place] [address] Apr, Cervical spondylosis without myelopathy 721.0 [facility] [address] [id number] [address] [place] [address] Mar, [facility] [address] [id number] [address] [place] [address] January, Cervical spondylosis without myelopathy 721.0 [facility] [address] [id number] [address] [place] [address], [place] [address] 28 Dec, 2014 [facility] [address] [id number] [address] [place] [address], [place] [address] 14 Dec, 2014 [facility] [address] [id number] [address] [place] [address], [place] [address] 13 Dec, 2014 [facility] [address] [id number] [address] [place] [address], [place] [address] Nov, [facility] [address] [id number] [address] [place] [address], [place] [address] Nov, [facility] [address] [id number] [address] [place] [address], [place] [address] Oct, [facility] [address] [id number] [address] [place] [address], [place] [address] Oct, 2014 [facility] [address] [id number] [address] [place] [address], [place] [address] Oct, 2014 [facility] [address] [id number] [address] [place] [address], [place] [address] Oct, [facility] [address] [id number] [address] [place] [address], [place] [address] Oct, [facility] [address] [id number] [address] [place] [address], [place] [address] Oct, 2014 [facility] [address] [id number] [address] [place] [address], [place] [address] Oct, 2014 [facility] [address] [id number] [address] [place] [address], [place] [address] Oct, 2014 [facility] [address] [id number] [address] [place] [address], [place] [address] Oct, 2014 [facility] [address] [id number] [address] [place] [address], [place] [address] Oct, 2014 [facility] [address] [id number] [address] [place] [address] [place] [address] Sep, [facility] [address] [id number] [address] [place] [address], [place] [address] Sep, [facility] [address] [id number] [address] [place] [address], [place] [address] Sep, [facility] [address] [id number] [address] [place] [address], [place] [address] Sep, [facility] [address] [id number] [address] [place] [address], [place] [address] Sep, [facility] [address] [id number] [address] [place] [address], [place] [address] Sep, [facility] [address] [id number] [address] [place] [address], [place] [address] Sep, [facility] [address] [id number] [address] [place] [address], [place] [address] Sep, [facility] [address] [id number] [address] [place] [address], [place] [address] Sep, [facility] [address] [id number] [address] [place] [address], [place] [address] Aug, [facility] [address] [id number] [address] [place] [address], [place] [address] Aug, [facility] [address] [id number] [address] [place] [address], [place] [address] Aug, [facility] [address] [id number] [address] [place] [address], [place] [address] Aug, [facility] [address] [id number] [address] [place] [address], [place] [address] Jul, [facility] [address] [id number] [address] [place] [address], [place] [address] Jul, [facility] [address] [id number] [address] [place] [address], [place] [address] Jul, [facility] [address] [id number] [address] [place] [address], [place] [address] 17 Jul, 2014 [facility] [address] [id number] [address] [place] [address], [place] [address] Jul, [facility] [address] [id number] [address] [place] [address], [place] [address] Jul, [facility] [address] [id number] [address] [place] [address], [place] [address] Jul, [facility] [address] [id number] [address] [place] [address], [place] [address] Jul, [facility] [address] [id number] [address] [place] [address], [place] [address] Jun, [facility] [address] [id number] [address] [place] [address], [place] [address] 27 Jun, 2014 [facility] [address] [id number] [address] [place] [address], [place] [address] 20 Jun, 2014 [facility] [address] [id number] [address] [place] [address], [place] [address] 20 Jun, 2014 [facility] [address] [id number] [address] [place] [address], [place] [address] 16 Jun, 2014 [facility] [address] [id number] [address] [place] [address], [place] [address] 15 Jun, 2014 [facility] [address] [id number] [address] [place] [address], [place] [address] 15 Jun, 2014 [facility] [address] [id number] [address] [place] [address], [place] [address] 14 Jun, 2014 [facility] [address] [id number] [address] [place] [address], [place] [address] 14 Jun, 2014 [facility] [address] [id number] [address] [place] [address], [place] [address] 11 Jun, 2014 [facility] [address] [id number] [address] [place] [address], [place] [address] Jun, [facility] [address] [id number] [facility] [place] [place] [address] May, [facility] [address] [id number] [address] [place] [address], [place] [address] May, [facility] [address] [id number] [address] [place] [address], [place] [address] May, [facility] [address] [id number] [address] [place] [address], [place] [address] May, [facility] [address] [id number] [address] [place] [address], [place] [address] May, [facility] [address] [id number] [address] [place] [address], [place] [address] Apr, [facility] [address] [id number] [address] [place] [address], [place] [address] Apr, [facility] [address] [id number] [address] [place] [address], [place] [address] Apr, [facility] [address] [id number] [address] [place] [address], [place] [address] Apr, [facility] [address] [id number] [address] [place] [address], [place] [address] Apr, [facility] [address] [id number] [address] [place] [address], [place] [address] Apr, [facility] [address] [id number] [address] [place] [address], [place] [address] Mar, [facility] [address] [id number] [address] [place] [address], [place] [address] Mar, [facility] [address] [id number] [address] [place] [address], [place] [address] Mar, [facility] [address] [id number] [address] [place] [address], [place] [address] Mar, [facility] [address] [id number] [address] [place] [address], [place] [address] 07 Mar, 2014 [facility] [address] [id number] [address] [place] [address], [place] [address] Mar, [facility] [address] [id number] [address] [place] [address], [place] [address] Feb, [facility] [address] [id number] [address] [place] [address], [place] [address] Feb, [facility] [address] [id number] [address] [place] [address], [place] [address] Feb, [facility] [address] [id number] [address] [place] [address], [place] [address] Feb, [facility] [address] [id number] [address] [place] [address], [place] [address] Feb, [facility] [address] [id number] [address] [place] [address], [place] [address] Feb, [facility] [address] [id number] [address] [place] [address], [place] [address] Feb, [facility] [address] [id number] [address] [place] [address], [place] [address] Feb, [facility] [address] [id number] [address] [place] [address], [place] [address] January, [facility] [address] [id number] [address] [place] [address], [place] [address] January, [facility] [address] [id number] [address] [place] [address], [place] [address] January, [facility] [address] [id number] [address] [place] [address], [place] [address] January, [facility] [address] [id number] [address] [place] [address], [place] [address] January, [facility] [address] [id number] [address] [place] [address], [place] [address] January, [facility] [address] [id number] [address] [place] [address], [place] [address] January, [facility] [address] [id number] [address] [place] [address], [place] [address] January, [facility] [address] [id number] [address] [place] [address], [place] [address] Dec, [facility] [address] [id number] [address] [place] [address], [place] [address] Dec, [facility] [address] [id number] [address] [place] [address], [place] [address] Dec, [facility] [address] [id number] [address] [place] [address], [place] [address] Dec, [facility] [address] [id number] [address] [place] [address], [place] [address] Dec, [facility] [address] [id number] [address] [place] [address], [place] [address] Dec, [facility] [address] [id number] [address] [place] [address], [place] [address] Nov, [facility] [address] [id number] [address] [place] [address], [place] [address] Nov, [facility] [address] [id number] [address] [place] [address], [place] [address] Nov, [facility] [address] [id number] [address] [place] [address], [place] [address] Nov, [facility] [address] [id number] [address] [place] [address], [place] [address] Nov, [facility] [address] [id number] [address] [place] [address], [place] [address] Nov, [facility] [address] [id number] [address] [place] [address], [place] [address] Nov, [facility] [address] [id number] [address] [place] [address], [place] [address] Nov, [facility] [address] [id number] [address] [place] [address], [place] [address] Oct, [facility] [address] [id number] [address] [place] [address], [place] [address] Oct, [facility] [address] [id number] [address] [place] [address], [place] [address] Sep, [facility] [address] [id number] [address] [place] [address], [place] [address] Sep, [facility] [address] [id number] [address] [place] [address], [place] [address] Sep, [facility] [address] [id number] [address] [place] [address], [place] [address] Sep, [facility] [address] [id number] [address] [place] [address], [place] [address] Aug, [facility] [address] [id number] [address] [place] [address], [place] [address] Aug, [facility] [address] [id number] [address] [place] [address], [place] [address] Aug, [facility] [address] [id number] [address] [place] [address], [place] [address] Aug, [facility] [address] [id number] [address] [place] [address], [place] [address] Jul, [facility] [address] [id number] [address] [place] [address], [place] [address] Jul, [facility] [address] [id number] [address] [place] [address], [place] [address] Jul, [facility] [address] [id number] [address] [place] [address], [place] [address] Jul, [facility] [address] [id number] [address] [place] [address], [place] [address] Jul, [facility] [address] [id number] [address] [place] [address], [place] [address] Jul, [facility] [address] [id number] [address] [place] [address], [place] [address] Jul, [facility] [address] [id number] [address] [place] [address], [place] [address] Jul, [facility] [address] [id number] [address] [place] [address], [place] [address] Jul, [facility] [address] [id number] [address] [place] [address], [place] [address] Jul, [facility] [address] [id number] [address] [place] [address], [place] [address] Jul, [facility] [address] [id number] [address] [place] [address], [place] [address] Jul, [facility] [address] [id number] [address] [place] [address], [place] [address] Jun, [facility] [address] [id number] [address] [place] [address], [place] [address] Jun, [facility] [address] [id number] [address] [place] [address], [place] [address] Jun, [facility] [address] [id number] [address] [place] [address], [place] [address] Jun, [facility] [address] [id number] [address] [place] [address], [place] [address] 16 Jun, 2013 [facility] [address] [id number] [address] [place] [address], [place] [address] 14 Jun, 2013 [facility] [address] [id number] [address] [place] [address], [place] [address] 14 Jun, 2013 [facility] [address] [id number] [address] [place] [address], [place] [address] 02 Jun, 2013 [facility] [address] [id number] [address] [place] [address], [place] [address] 15 May, 2013 [facility] [address] [id number] [address] [place] [address], [place] [address] 05 May, 2013 [facility] [address] [id number] [address] [place] [address], [place] [address] May, [facility] [address] [id number] [address] [place] [address], [place] [address] Apr, [facility] [address] [id number] [address] [place] [address], [place] [address] Apr, [facility] [address] [id number] [address] [place] [address], [place] [address] Mar, [facility] [address] [id number] [address] [place] [address], [place] [address] Mar, [facility] [address] [id number] [address] [place] [address], [place] [address] Feb, [facility] [address] [id number] [address] [place] [address], [place] [address] January, [facility] [address] [id number] [address] [place] [address], [place] [address] January, [facility] [address] [id number] [address] [place] [address], [place] [address] January, [facility] [address] [id number] [address] [place] [address], [place] [address] January, [facility] [address] [id number] [address] [place] [address], [place] [address] January, [facility] [address] [id number] [address] [place] [address], [place] [address] Dec, [facility] [address] [id number] [address] [place] [address], [place] [address] Dec, [facility] [address] [id number] [address] [place] [address], [place] [address] Dec, [facility] [address] [id number] [address] [place] [address], [place] [address] 18 Nov, 2012 [facility] [address] [id number] [address] [place] [address], [place] [address] 27 Oct, 2012 [facility] [address] [id number] [address] [place] [address], [place] [address] 18 Oct, 2012 [facility] [address] [id number] [address] [place] [address], [place] [address] 15 Oct, 2012 [facility] [address] [id number] [address] [place] [address], [place] [address] 18 Sep, 2012 [facility] [address] [id number] [address] [place] [address], [place] [address] 16 Sep, 2012 [facility] [address] [id number] [address] [place] [address], [place] [address] 14 Aug, 2012 [facility] [address] [id number] [address] [place] [address], [place] [address] 14 Aug, 2012 [facility] [address] [id number] [address] [place] [address], [place] [address] Aug, [facility] [address] [id number] [address] [place] [address], [place] [address] Aug, [facility] [address] [id number] [address] [place] [address], [place] [address] Jul, [facility] [address] [id number] [address] [place] [address], [place] [address] Jul, [facility] [address] [id number] [address] [place] [address], [place] [address] Jul, [facility] [address] [id number] [address] [place] [address], [place] [address] 09 Jul, 2012 [facility] [address] [id number] [address] [place] [address], [place] [address] 09 Jul, 2012 [facility] [address] [id number] [address] [place] [address], [place] [address] 15 Jun, 2012 [facility] [address] [id number] [address] [place] [address], [place] [address] 15 Jun, 2012 [facility] [address] [id number] [address] [place] [address], [place] [address] 10 Jun, 2012 [facility] [address] [id number] [address] [place] [address], [place] [address] 10 Jun, 2012 [facility] [address] [id number] [address] [place] [address], [place] [address] 10 May, 2012 [facility] [address] [id number] [address] [place] [address], [place] [address] Apr, [facility] [address] [id number] [address] [place] [address], [place] [address] Apr, [facility] [address] [id number] [address] [place] [address], [place] [address] Apr, [facility] [address] [id number] [address] [place] [address], [place] [address] Apr, [facility] [address] [id number] [address] [place] [address], [place] [address] January, [facility] [address] [id number] [address] [place] [address], [place] [address] January, [facility] [address] [id number] [address] [place] [address], [place] [address] Dec, [facility] [address] [id number] [address] [place] [address], [place] [address] Dec, [facility] [address] [id number] [address] [place] [address], [place] [address] Nov, [facility] [address] [id number] [address] [place] [address], [place] [address] Nov, [facility] [address] [id number] [address] [place] [address], [place] [address] Nov, [facility] [address] [id number] [address] [place] [address] Nov, [facility] [address] [id number] [address] [place] [address], [place] [address] Oct, [facility] [address] [id number] [address] [place] [address], [place] [address] Oct, [facility] [address] [id number] [address] [place] [address], [place] [address] Oct, [facility] [address] [id number] [address] [place] [address], [place] [address] Sep, [facility] [address] [id number] [address] [place] [address], [place] [address] Sep, [facility] [address] [id number] [address] [place] [address], [place] [address] Aug, [facility] [address] [id number] [address] [place] [address], [place] [address] Aug, [facility] [address] [id number] [address] [place] [address], [place] [address] Jul, [facility] [address] [id number] [address] [place] [address], [place] [address] Jul, [facility] [address] [id number] [address] [place] [address], [place] [address] Jul, [facility] [address] [id number] [address] [place] [address], [place] [address] Jun, [facility] [address] [id number] [address] [place] [address] 24 Jun, 2011 [facility] [address] [id number] [address] [place] [address] Jun, [facility] [address] [id number] [address] [place] [address] Jun, [facility] [address] [id number] [address] [place] [address] Jun, [facility] [address] [id number] [address] [place] [address], [place] [address] 10 Jun, 2011 [facility] [address] [id number] [address] [place] [address], [place] [address] Aug, [facility] [address] [id number] [address] [place] [address], [place] [address] Aug, [facility] [address] [id number] [address] [place] [address], [place] [address] Aug, [facility] [address] [id number] [address] [place] [address], [place] [address] Jul, [facility] [address] [id number] [address] [place] [address], [place] [address] Jul, [facility] [address] [id number] [address] [place] [address], [place] [address] Jul, [facility] [address] [id number] [address] [place] [address], [place] [address] Jul, [facility] [address] [id number] [address] [place] [address], [place] [address] Jul, [facility] [address] [id number] [address] [place] [address], [place] [address] Jul, [facility] [address] [id number] [address] [place] [address], [place] [address] Jun, [facility] [address] [id number] [address] [place] [address], [place] [address] Apr, [facility] [address] [id number] [address] [place] [address], [place] [address] Feb, [facility] [address] [id number] [address] [place] [address], [place] [address] 10 Oct, 2009 [facility] [address] [id number] [address] [place] [address], [place] [address] 13 Sep, 2009 [facility] [address] [id number] [address] [place] [address] Aug, [facility] [address] [id number] [address] [place] [address] Aug, [facility] [address] [id number] [address] [place] [address] Aug, [facility] [address] [id number] [address] [place] [address] Jul, [facility] [address] [id number] [address] [place] [address] Jun, IMMUNIZATIONS No Known Immunizations SOCIAL HISTORY Never Assessed REASON FOR VISIT PLAN OF CARE VITAL SIGNS MEDICATIONS No Known Medications RESULTS No Results PROCEDURES No Known procedures INSTRUCTIONS MEDICATIONS ADMINISTERED No Known Medications MEDICAL (GENERAL) HISTORY Type Description Date Medical [...] Hospitalization History see surgeries Hospitalization History numerous pneumonias x 4 Hospitalization History flesh eating strep
--- OUTSIDE RECORDS SUMMARY | 2020-02-22 17:07 | XMS REPORT ---
Author Author Marion CORREA Organization [facility] Address [address] [place] [address] Care Team Providers Care Investment Underwriter Name Role Phone SHABNAM CORREA Unavailable PROBLEMS Type Condition ICD9-CM Code [id number] Code Onset Dates Condition S tatus SNOMED Code Problem Acquired hypothyroidism E03.9 Active 531472861 Problem Gastro-esophageal reflux disease without esophagitis K21.9 Active 460773339 Problem Cervical disc disease M50.90 Active 901509487 Problem Dyspepsia R10.13 Active 108339567 Problem Migraine without aura and without status migrain osus, not intractable G43.009 Active [id number] ALLERGIES No Information ENCOUNTERS Encounter Location Date Diagnosis [facility] [address] [facility] [id number] [address] [place] [address] January, Cervical disc disease M50.[address] 340[id number] [place] [address] January, Cervical disc disease M50.90 [facility] [address] [facility] [id number] [address] [place] [address] Dec, [facility] [address] [facility] [id number] [address] [place] [address] Nov, [facility] [address] [facility] [id number] [address] [place] [address] Nov, Cervical disc disease M50.90 [facility] [address] [facility] [id number] [address] [place] [address] Oct, [facility] [address] [facility] [id number] [address] [place] [address] Oct, Cervical disc disease M50.90 [facility] [address] [facility] [id number] [address] [place] [id number] 13 Oct, 2019 Contusion of left knee, init ial encounter S80.02XA [facility] [address] [id number] [address] [place] [id number] 13 Oct, 2019 Cervical disc disease M50.90 [facility] [address] [id number] [address] [place] [id number] 12 Oct, 2019 [facility] [address] [id number] [address] [place] [address] Oct, Acute pain of left knee M25. 562 [facility] [address] [id number] [address] [place] [phone] Sep, [facility] [address] [id number] [address] [place] [address] Sep, Cervical disc disease M50.90 [facility] [address] [id number] [address] [place] [address] Sep, Cervical disc disease M50.90 [facility] [address] [id number] [address] [place] [address] Aug, Cervical disc disease M50.90 [facility] [address] [id number] [address] [place] [address] Aug, [facility] [address] [id number] [address] [place] [address] Jul, Cervical disc disease M50.90 [facility] [address] [id number] [address] [place] [address] Jun, Cervical disc disease M50.90 [facility] [address] [id number] [address] [place] [phone] May, [facility] [address] [id number] [address] [place] [address] May, Cervical disc disease M50.90 [facility] [address] [id number] [address] [place] [address] May, Acute cystitis with hematuri a N30.01 and UTI symptoms R39.9 [facility] [address] [id number] [address] [place] [address] May, [facility] [address] [id number] [address] [place] [address] Apr, Cervical disc disease M50.90 [facility] [address] [id number] [address] [place] [address] Apr, Cervical disc disease M50.90 ; Gastro-esophageal reflux disease without esophagitis K21.9 and Sinus headache R51 [facility] [address] [id number] [address] [place] [address] Apr, [facility] [address] [id number] [address] [place] [address] Apr, Cervical disc disease M50.90 [facility] [address] [id number] [address] [place] [address] Mar, [facility] [address] [id number] [address] [place] [address] Mar, Cervical disc disease M50.90 [facility] [address] [id number] [address] [place] [address] Feb, [address] [id number] [address] Feb, Cervical disc disease M50.[address] [id number] [address] January, [facility] [address] [id number] [address] [place] [address] January, Cervical disc disease M50.90 [facility] [address] [id number] [address] [place] [address] January, Cervical disc disease M50.90 [facility] [address] [id number] [address] [place] [address] Dec, Cervical disc disease M50.90 [facility] [address] [facility] [id number] [address] [place] [address] Dec, Cervical disc disease M50.90 [facility] [address] [facility] [id number] [address] [place] [address] Dec, Cervical disc disease M50.90 [facility] [address] [facility] [id number] [address] [place] [address] Dec, Cervical disc disease M50.90 ; Acquired hypothyroidism E03.9 and Migraine without aura and without status migrainosus, not intractable G43.009 [facility] [address] [facility] [id number] [address] [place] [address] Nov, [facility] [address] [facility] [id number] [address] [place] [address] Nov, Cervical disc disease M50.90 [facility] [address] [facility] [id number] [address] [place] [address] Oct, Cervical disc disease M50.90 [facility] [address] [facility] [id number] [address] [place] [address] Sep, [facility] [address] [facility] [id number] [address] [place] [address] Sep, Cervical disc disease M50.90 [facility] [address] [facility] [id number] [address] [place] [address] Aug, Cervical disc disease M50.90 [facility] [address] [facility] [id number] [address] [place] [address] Jul, Cervical disc disease M50.90 [facility] [address] [facility] [id number] [address] [place] [address] Jun, Acute recurrent pansinusitis J01.41 and Cervical disc disease M50.90 [facility] [address] [facility] [id number] [address] [place] [address] Jun, Cervical disc disease M50.90 [facility] [address] [id number] [address] [place] [address] May, Cervical disc disease M50.90 [facility] [address] [id number] [address] [place] [address] Apr, Cervical disc disease M50.90 [facility] [address] [id number] [address] [place] [address] Mar, Cervical disc disease M50.90 [facility] [address] [id number] [address] [place] [address] Mar, [facility] [address] [id number] [address] [place] [address] Mar, Cervical disc disease M50.90 [facility] [address] [id number] [address] [place] [address] Feb, Cervical disc disease M50.90 [facility] [address] [id number] [address] [place] [address] January, Cervical disc disease M50.90 [facility] [address] [id number] [address] [place] [address] Dec, [facility] [address] [id number] [address] [place] [address] Dec, Cervical disc disease M50.90 [facility] [address] [id number] [address] [place] [address] Nov, Cervical disc disease M50.90 [facility] [address] [id number] [address] [place] [address] Nov, Cervical disc disease M50.90 [facility] [address] [id number] [address] [place] [address] Oct, Cervical disc disease M50.90 [facility] [address] [id number] [address] [place] [address] Oct, Cervical disc disease M50.90 and Acute non-recurrent maxillary sinusitis J01.00 [facility] [address] [id number] [address] [place] [address] Sep, Cervical disc disease M50.90 [facility] [address] [id number] [address] [place] [id number] Sep, [facility] [address] [facility] [id number] [address] [place] [address] Sep, Fatigue, unspecified type R5 3.83 and Cough R05 [facility] [address] [facility] [id number] [address] [place] [address] Aug, Cervical disc disease M50.90 [facility] [address] [facility] [id number] [address] [place] [address] Aug, Sore throat J02.9 ; Canker s ore K12.0 and History of anemia Z86.2 [facility] [address] [facility] [id number] [address] [place] [address] Jul, Cervical disc disease M50.90 [place] [address] [facility] [id number] [address] [place] [address] Jun, Cervical disc disease M50.90 [facility] [address] [facility] [id number] [address] [place] [address] Jun, Cervical disc disease M50.90 [facility] [address] [facility] [id number] [address] [place] [address] May, Cervical disc disease M50.90 [facility] [address] [facility] [id number] [address] [place] [address] Apr, Cervical disc disease M50.90 [facility] [address] [facility] [id number] [address] [place] [address] Apr, [facility] [address] [facility] [id number] [address] [place] [address] Feb, Cervical disc disease M50.90 [place] [address] [facility] [id number] [address] [place] [address] January, Cervical disc disease M50.90 [facility] [address] [facility] [id number] [address] [place] [address] Nov, [facility] [address] [facility] [id number] [address] [place] [address] Nov, Cervical disc disease M50.90 [facility] [address] [facility] [id number] [address] [place] [address] Nov, Acute cystitis with hematuri a N30.01 and Dysuria R30.0 [facility] [address] [place] [id number] [place] [address] Oct, Cervical disc disease M50.90 and Acute non-recurrent frontal sinusitis J01.10 [place] [address] [place] [id number] [address] [place] [address] Sep, Neck pain M54.2 [facility] [address] [place] [id number] [address] [place] [address] Sep, [facility] [address] [place] [id number] [place] [address] Aug, Cervical disc disease M50.90 [facility] [address] [place] [id number] [address] [place] [address] Jul, [facility] [address] [place] [id number] [address] [place] [address] Jun, [facility] [address] [place] [id number] [address] [place] [address] May, [place] [address] [place] [id number] [place] [address] May, Screening for diabetes emilio tus Z13.1 ; Chronic fatigue R53.82 and Edema, unspecified type R60.9 [facility] [address] [place] [id number] [address] [place] [phone] Apr, Neck pain M54.2 [facility] [address] [id number] [address] [place] [address], [place] [address] Mar, [facility] [address] [id number] [address] [place] [id number] Mar, Neck pain M54.2 [facility] [address] [id number] [address] [place] [address] Feb, Cervical disc disease M50.90 [facility] [address] [id number] [address] [place] [id number] Feb, Cervical disc disease M50.90 [facility] [address] [id number] [address] [place] [phone] January, [facility] [address] [id number] [address] [place] [phone] January, [facility] [address] [id number] [address] [place] [address] January, Cervical disc disease M50.90 [facility] [address] [id number] [address] [place] [id number] January, [facility] [address] [id number] [address] [place] [address] January, [facility] [address] [id number] [address] [place] [address] Dec, Cervical disc disease M50.90 [facility] [address] [id number] [address] [place] [address] Nov, Cervical disc disease M50.90 [facility] [address] [id number] [address] [place] [address] Oct, Cervical disc disease M50.90 [facility] [address] [id number] [address] [place] [id number] Sep, Cervical disc disease M50.90 [facility] [address] [id number] [address] [place] [address] [id number] 16 Aug, 2015 Dental caries K02.9 and Enco unter for dental examination Z01.20 [facility] [address] [id number] [address] [place] [id number] Aug, [facility] [address] [id number] [address] [place] [address] Aug, [facility] [address] [id number] [address] [place] [id number] 08 Aug, 2015 Encounter for dental examina tion Z01.20 [facility] [address] [id number] [address] [place] [id number] Jul, [facility] [address] [facility] [id number] [address] [place] [address] Jun, Sinusitis J32.9 and Cervical disc disease M50.90 [facility] [address] [id number] [address] [place] [address] Jun, [facility] [address] [id number] [address] [place] [id number] 24 May, 2015 [facility] [address] [id number] [address] [place] [id number] May, [facility] [address] [id number] [address] [place] [id number] May, [facility] [address] [id number] [address] [place] [address] May, [facility] [address] [id number] [address] [place] [id number] Apr, Cervical spondylosis without myelopathy 721.0 [facility] [address] [id number] [address] [place] [address] Mar, [facility] [address] [id number] [address] [place] [id number] January, Cervical spondylosis without myelopathy 721.0 [facility] [address] [id number] [address] [place] [address], [place] [address] 28 Dec, 2014 [facility] [address] [id number] [address] [place] [address], [place] [address] 14 Dec, 2014 [facility] [address] [id number] [address] [place] [address], [place] [address] 13 Dec, 2014 [facility] [address] [id number] [address] [place] [address], [place] [address] Nov, [facility] [address] [id number] [address] [place] [address], [place] [address] Nov, [facility] [address] [id number] [address] [place] [address], [place] [address] Oct, [facility] [address] [id number] [address] [place] [address], [place] [address] Oct, 2014 [facility] [address] [id number] [address] [place] [address], [place] [address] Oct, 2014 [facility] [address] [id number] [address] [place] [address], [place] [address] Oct, [facility] [address] [id number] [address] [place] [address], [place] [address] Oct, [facility] [address] [id number] [address] [place] [address], [place] [address] Oct, 2014 [facility] [address] [id number] [address] [place] [address], [place] [address] Oct, 2014 [facility] [address] [id number] [address] [place] [address], [place] [address] Oct, 2014 [facility] [address] [id number] [address] [place] [address], [place] [address] Oct, 2014 [facility] [address] [id number] [address] [place] [address], [place] [address] Oct, 2014 [facility] [address] [id number] [address] [place] [address] [place] [address] Sep, [facility] [address] [id number] [address] [place] [address], [place] [address] Sep, [facility] [address] [id number] [address] [place] [address], [place] [address] Sep, [facility] [address] [id number] [address] [place] [address], [place] [address] Sep, [facility] [address] [id number] [address] [place] [address], [place] [address] Sep, [facility] [address] [id number] [address] [place] [address], [place] [address] Sep, [facility] [address] [id number] [address] [place] [address], [place] [address] Sep, [facility] [address] [id number] [address] [place] [address], [place] [address] Sep, [facility] [address] [id number] [address] [place] [address], [place] [address] Sep, [facility] [address] [id number] [address] [place] [address], [place] [address] Aug, [facility] [address] [id number] [address] [place] [address], [place] [address] Aug, [facility] [address] [id number] [address] [place] [address], [place] [address] Aug, [facility] [address] [id number] [address] [place] [address], [place] [address] Aug, [facility] [address] [id number] [address] [place] [address], [place] [address] Jul, [facility] [address] [id number] [address] [place] [address], [place] [address] Jul, [facility] [address] [id number] [address] [place] [address], [place] [address] Jul, [facility] [address] [id number] [address] [place] [address], [place] [address] 17 Jul, 2014 [facility] [address] [id number] [address] [place] [address], [place] [address] Jul, [facility] [address] [id number] [address] [place] [address], [place] [address] Jul, [facility] [address] [id number] [address] [place] [address], [place] [address] Jul, [facility] [address] [id number] [address] [place] [address], [place] [address] Jul, [facility] [address] [id number] [address] [place] [address], [place] [address] Jun, [facility] [address] [id number] [address] [place] [address], [place] [address] 27 Jun, 2014 [facility] [address] [id number] [address] [place] [address], [place] [address] 20 Jun, 2014 [facility] [address] [id number] [address] [place] [address], [place] [address] 20 Jun, 2014 [facility] [address] [id number] [address] [place] [address], [place] [address] 16 Jun, 2014 [facility] [address] [id number] [address] [place] [address], [place] [address] 15 Jun, 2014 [facility] [address] [id number] [address] [place] [address], [place] [address] 15 Jun, 2014 [facility] [address] [id number] [address] [place] [address], [place] [address] 14 Jun, 2014 [facility] [address] [id number] [address] [place] [address], [place] [address] 14 Jun, 2014 [facility] [address] [id number] [address] [place] [address], [place] [address] 11 Jun, 2014 [facility] [address] [id number] [address] [place] [address], [place] [address] Jun, [facility] [address] [id number] [facility] [place] [address] May, [facility] [address] [id number] [address] [place] [address], [place] [address] May, [facility] [address] [id number] [address] [place] [address], [place] [address] May, [facility] [address] [id number] [address] [place] [address], [place] [address] May, [facility] [address] [id number] [address] [place] [address], [place] [address] May, [facility] [address] [id number] [address] [place] [address], [place] [address] Apr, [facility] [address] [id number] [address] [place] [address], [place] [address] Apr, [facility] [address] [id number] [address] [place] [address], [place] [address] Apr, [facility] [address] [id number] [address] [place] [address], [place] [address] Apr, [facility] [address] [id number] [address] [place] [address], [place] [address] Apr, [facility] [address] [id number] [address] [place] [address], [place] [address] Apr, [facility] [address] [id number] [address] [place] [address], [place] [address] Mar, [facility] [address] [id number] [address] [place] [address], [place] [address] Mar, [facility] [address] [id number] [address] [place] [address], [place] [address] Mar, [facility] [address] [id number] [address] [place] [address], [place] [address] Mar, [facility] [address] [id number] [address] [place] [address], [place] [address] 07 Mar, 2014 [facility] [address] [id number] [address] [place] [address], [place] [address] Mar, [facility] [address] [id number] [address] [place] [address], [place] [address] Feb, [facility] [address] [id number] [address] [place] [address], [place] [address] Feb, [facility] [address] [id number] [address] [place] [address], [place] [address] Feb, [facility] [address] [id number] [address] [place] [address], [place] [address] Feb, [facility] [address] [id number] [address] [place] [address], [place] [address] Feb, [facility] [address] [id number] [address] [place] [address], [place] [address] Feb, [facility] [address] [id number] [address] [place] [address], [place] [address] Feb, [facility] [address] [id number] [address] [place] [address], [place] [address] Feb, [facility] [address] [id number] [address] [place] [address], [place] [address] January, [facility] [address] [id number] [address] [place] [address], [place] [address] January, [facility] [address] [id number] [address] [place] [address], [place] [address] January, [facility] [address] [id number] [address] [place] [address], [place] [address] January, [facility] [address] [id number] [address] [place] [address], [place] [address] January, [facility] [address] [id number] [address] [place] [address], [place] [address] January, [facility] [address] [id number] [address] [place] [address], [place] [address] January, [facility] [address] [id number] [address] [place] [address], [place] [address] January, [facility] [address] [id number] [address] [place] [address], [place] [address] Dec, [facility] [address] [id number] [address] [place] [address], [place] [address] Dec, [facility] [address] [id number] [address] [place] [address], [place] [address] Dec, [facility] [address] [id number] [address] [place] [address], [place] [address] Dec, [facility] [address] [id number] [address] [place] [address], [place] [address] Dec, [facility] [address] [id number] [address] [place] [address], [place] [address] Dec, [facility] [address] [id number] [address] [place] [address], [place] [address] Nov, [facility] [address] [id number] [address] [place] [address], [place] [address] Nov, [facility] [address] [id number] [address] [place] [address], [place] [address] Nov, [facility] [address] [id number] [address] [place] [address], [place] [address] Nov, [facility] [address] [id number] [address] [place] [address], [place] [address] Nov, [facility] [address] [id number] [address] [place] [address], [place] [address] Nov, [facility] [address] [id number] [address] [place] [address], [place] [address] Nov, [facility] [address] [id number] [address] [place] [address], [place] [address] Nov, [facility] [address] [id number] [address] [place] [address], [place] [address] Oct, [facility] [address] [id number] [address] [place] [address], [place] [address] Oct, [facility] [address] [id number] [address] [place] [address], [place] [address] Sep, [facility] [address] [id number] [address] [place] [address], [place] [address] Sep, [facility] [address] [id number] [address] [place] [address], [place] [address] Sep, [facility] [address] [id number] [address] [place] [address], [place] [address] Sep, [facility] [address] [id number] [address] [place] [address], [place] [address] Aug, [facility] [address] [id number] [address] [place] [address], [place] [address] Aug, [facility] [address] [id number] [address] [place] [address], [place] [address] Aug, [facility] [address] [id number] [address] [place] [address], [place] [address] Aug, [facility] [address] [id number] [address] [place] [address], [place] [address] Jul, [facility] [address] [id number] [address] [place] [address], [place] [address] Jul, [facility] [address] [id number] [address] [place] [address], [place] [address] Jul, [facility] [address] [id number] [address] [place] [address], [place] [address] Jul, [facility] [address] [id number] [address] [place] [address], [place] [address] Jul, [facility] [address] [id number] [address] [place] [address], [place] [address] Jul, [facility] [address] [id number] [address] [place] [address], [place] [address] Jul, [facility] [address] [id number] [address] [place] [address], [place] [address] Jul, [facility] [address] [id number] [address] [place] [address], [place] [address] Jul, [facility] [address] [id number] [address] [place] [address], [place] [address] Jul, [facility] [address] [id number] [address] [place] [address], [place] [address] Jul, [facility] [address] [id number] [address] [place] [address], [place] [address] Jul, [facility] [address] [id number] [address] [place] [address], [place] [address] Jun, [facility] [address] [id number] [address] [place] [address], [place] [address] Jun, [facility] [address] [id number] [address] [place] [address], [place] [address] Jun, [facility] [address] [id number] [address] [place] [address], [place] [address] Jun, [facility] [address] [id number] [address] [place] [address], [place] [address] 16 Jun, 2013 [facility] [address] [id number] [address] [place] [address], [place] [address] 14 Jun, 2013 [facility] [address] [id number] [address] [place] [address], [place] [address] 14 Jun, 2013 [facility] [address] [id number] [address] [place] [address], [place] [address] 02 Jun, 2013 [facility] [address] [id number] [address] [place] [address], [place] [address] 15 May, 2013 [facility] [address] [id number] [address] [place] [address], [place] [address] 05 May, 2013 [facility] [address] [id number] [address] [place] [address], [place] [address] May, [facility] [address] [id number] [address] [place] [address], [place] [address] Apr, [facility] [address] [id number] [address] [place] [address], [place] [address] Apr, [facility] [address] [id number] [address] [place] [address], [place] [address] Mar, [facility] [address] [id number] [address] [place] [address], [place] [address] Mar, [facility] [address] [id number] [address] [place] [address], [place] [address] Feb, [facility] [address] [id number] [address] [place] [address], [place] [address] January, [facility] [address] [id number] [address] [place] [address], [place] [address] January, [facility] [address] [id number] [address] [place] [address], [place] [address] January, [facility] [address] [id number] [address] [place] [address], [place] [address] January, [facility] [address] [id number] [address] [place] [address], [place] [address] January, [facility] [address] [id number] [address] [place] [address], [place] [address] Dec, [facility] [address] [id number] [address] [place] [address], [place] [address] Dec, [facility] [address] [id number] [address] [place] [address], [place] [address] Dec, [facility] [address] [id number] [address] [place] [address], [place] [address] 18 Nov, 2012 [facility] [address] [id number] [address] [place] [address], [place] [address] 27 Oct, 2012 [facility] [address] [id number] [address] [place] [address], [place] [address] 18 Oct, 2012 [facility] [address] [id number] [address] [place] [address], [place] [address] 15 Oct, 2012 [facility] [address] [id number] [address] [place] [address], [place] [address] 18 Sep, 2012 [facility] [address] [id number] [address] [place] [address], [place] [address] 16 Sep, 2012 [facility] [address] [id number] [address] [place] [address], [place] [address] 14 Aug, 2012 [facility] [address] [id number] [address] [place] [address], [place] [address] 14 Aug, 2012 [facility] [address] [id number] [address] [place] [address], [place] [address] Aug, [facility] [address] [id number] [address] [place] [address], [place] [address] Aug, [facility] [address] [id number] [address] [place] [address], [place] [address] Jul, [facility] [address] [id number] [address] [place] [address], [place] [address] Jul, [facility] [address] [id number] [address] [place] [address], [place] [address] Jul, [facility] [address] [id number] [address] [place] [address], [place] [address] 09 Jul, 2012 [facility] [address] [id number] [address] [place] [address], [place] [address] 09 Jul, 2012 [facility] [address] [id number] [address] [place] [address], [place] [address] 15 Jun, 2012 [facility] [address] [id number] [address] [place] [address], [place] [address] 15 Jun, 2012 [facility] [address] [id number] [address] [place] [address], [place] [address] 10 Jun, 2012 [facility] [address] [id number] [address] [place] [address], [place] [address] 10 Jun, 2012 [facility] [address] [id number] [address] [place] [address], [place] [address] 10 May, 2012 [facility] [address] [id number] [address] [place] [address], [place] [address] Apr, [facility] [address] [id number] [address] [place] [address], [place] [address] Apr, [facility] [address] [id number] [address] [place] [address], [place] [address] Apr, [facility] [address] [id number] [address] [place] [address], [place] [address] Apr, [facility] [address] [id number] [address] [place] [address], [place] [address] January, [facility] [address] [id number] [address] [place] [address], [place] [address] January, [facility] [address] [id number] [address] [place] [address], [place] [address] Dec, [facility] [address] [id number] [address] [place] [address], [place] [address] Dec, [facility] [address] [id number] [address] [place] [address], [place] [address] Nov, [facility] [address] [id number] [address] [place] [address], [place] [address] Nov, [facility] [address] [id number] [address] [place] [address], [place] [address] Nov, [facility] [address] [id number] [address] [place] [address] Nov, [facility] [address] [id number] [address] [place] [address], [place] [address] Oct, [facility] [address] [id number] [address] [place] [address], [place] [address] Oct, [facility] [address] [id number] [address] [place] [address], [place] [address] Oct, [facility] [address] [id number] [address] [place] [address], [place] [address] Sep, [facility] [address] [id number] [address] [place] [address], [place] [address] Sep, [facility] [address] [id number] [address] [place] [address], [place] [address] Aug, [facility] [address] [id number] [address] [place] [address], [place] [address] Aug, [facility] [address] [id number] [address] [place] [address], [place] [address] Jul, [facility] [address] [id number] [address] [place] [address], [place] [address] Jul, [facility] [address] [id number] [address] [place] [address], [place] [address] Jul, [facility] [address] [id number] [address] [place] [address], [place] [address] Jun, [facility] [address] [id number] [address] [place] [address] 24 Jun, 2011 [facility] [address] [id number] [address] [place] [address] Jun, [facility] [address] [id number] [address] [place] [address] Jun, [facility] [address] [id number] [address] [place] [address] Jun, [facility] [address] [id number] [address] [place] [address], [place] [address] 10 Jun, 2011 [facility] [address] [id number] [address] [place] [address], [place] [address] Aug, [facility] [address] [id number] [address] [place] [address], [place] [address] Aug, [facility] [address] [id number] [address] [place] [address], [place] [address] Aug, [facility] [address] [id number] [address] [place] [address], [place] [address] Jul, [facility] [address] [id number] [address] [place] [address], [place] [address] Jul, [facility] [address] [id number] [address] [place] [address], [place] [address] Jul, [facility] [address] [id number] [address] [place] [address], [place] [address] Jul, [facility] [address] [id number] [address] [place] [address], [place] [address] Jul, [facility] [address] [id number] [address] [place] [address], [place] [address] Jul, [facility] [address] [id number] [address] [place] [address], [place] [address] Jun, [facility] [address] [id number] [address] [place] [address], [place] [address] Apr, [facility] [address] [id number] [address] [place] [address], [place] [address] Feb, [facility] [address] [id number] [address] [place] [address], [place] [address] 10 Oct, 2009 [facility] [address] [id number] [address] [place] [address], [place] [address] 13 Sep, 2009 [facility] [address] [id number] [address] [place] [address] Aug, [facility] [address] [facility] [id number] [address] [place] [address] Aug, [facility] [address] [facility] [id number] [address] [place] [address] Aug, [facility] [address] [facility] [id number] [address] [place] [address] Jul, [facility] [address] [facility] [id number] [address] [place] [address] Jun, IMMUNIZATIONS No Known Immunizations SOCIAL HISTORY Never Assessed REASON FOR VISIT PLAN OF CARE VITAL SIGNS MEDICATIONS No Known Medications RESULTS No Results PROCEDURES Procedure Date Ordered Result Body Site CT ABD&PELV 1+ SECTION/REGNS Jun 23, 2013 INSTRUCTIONS MEDICATIONS ADMINISTERED No Known Medications MEDICAL [...]
--- OUTSIDE RECORDS SUMMARY | 2020-02-22 17:08 | XMS REPORT ---
Author Author Marion CORREA Organization [facility] Address [address] [place] [address] Care Team Providers Care Leather Finisher Name Role Phone SHABNAM CORREA Unavailable PROBLEMS Type Condition ICD9-CM Code TED92-NC Code Onset Dates Condition S tatus SNOMED Code Problem Acquired hypothyroidism E03.9 Active 220226605 Problem Gastro-esophageal reflux disease without esophagitis K21.9 Active 775924119 Problem Cervical disc disease M50.90 Active 567976032 Problem Dyspepsia R10.13 Active 654775009 Problem Migraine without aura and without status migrain osus, not intractable G43.009 Active [id number] ALLERGIES No Information ENCOUNTERS Encounter Location Date Diagnosis [facility] [place] [address] [facility] [id number] [address] [place] [address] January, Cervical disc disease M50.[id number] [place] [address] January, Cervical disc disease M50.90 [facility] [place] [address] [facility] [id number] [address] [place] [address] Dec, [facility] [place] [address] [facility] [id number] [address] [place] [id number] Nov, [facility] [place] [address] [facility] [id number] [address] [place] [address] Nov, Cervical disc disease M50.90 [facility] [place] [address] [facility] [id number] [address] [place] [address] Oct, [facility] [place] [address] [facility] [id number] [address] [place] [address] Oct, Cervical disc disease M50.90 [facility] [place] [address] [facility] [id number] [address] [place] [address] 13 Oct, 2019 Contusion of left knee, init ial encounter S80.02XA [facility] [place] [address] [id number] [address] [place] [address] 13 Oct, 2019 Cervical disc disease M50.90 [facility] [address] [id number] [address] [place] [id number] 12 Oct, 2019 [facility] [address] [id number] [address] [place] [address] Oct, Acute pain of left knee M25. 562 [facility] [place] [address] [id number] [address] [place] [address] Sep, [facility] [place] [address] [id number] [address] [place] [address] Sep, Cervical disc disease M50.90 [facility] [place] [address] [id number] [address] [place] [address] Sep, Cervical disc disease M50.90 [facility] [place] [address] [id number] [address] [place] [address] Aug, Cervical disc disease M50.90 [facility] [place] [address] [id number] [address] [place] [address] Aug, [facility] [place] [address] [id number] [address] [place] [address] Jul, Cervical disc disease M50.90 [facility] [place] [address] [id number] [address] [place] [address] Jun, Cervical disc disease M50.90 [facility] [place] [address] [id number] [address] [place] [address] May, [facility] [place] [address] [id number] [address] [place] [address] May, Cervical disc disease M50.90 [facility] [address] [id number] [address] [place] [address] May, Acute cystitis with hematuri a N30.01 and UTI symptoms R39.9 [facility] [place] [address] [id number] [address] [place] [address] May, [facility] [place] [address] [id number] [address] [place] [address] Apr, Cervical disc disease M50.90 [facility] [place] [address] [id number] [address] [place] [address] Apr, Cervical disc disease M50.90 ; Gastro-esophageal reflux disease without esophagitis K21.9 and Sinus headache R51 [facility] [place] [address] [id number] [address] [place] [address] Apr, [facility] [place] [address] [id number] [address] [place] [address] Apr, Cervical disc disease M50.90 [facility] [place] [address] [id number] [address] [place] [address] Mar, [facility] [place] [address] [id number] [address] [place] [address] Mar, Cervical disc disease M50.90 [facility] [place] [address] [id number] [address] [place] [address] Feb, [id number] [address] Feb, Cervical disc disease M50.[address] 340[id number] [address] January, [facility] [place] [address] [id number] [address] [place] [address] January, Cervical disc disease M50.90 [facility] [place] [address] [id number] [address] [place] [address] January, Cervical disc disease M50.90 [facility] [place] [address] [id number] [address] [place] [address] Dec, Cervical disc disease M50.90 [facility] [place] [address] [facility] [id number] [address] [place] [address] Dec, Cervical disc disease M50.90 [facility] [place] [address] [facility] [id number] [address] [place] [address] Dec, Cervical disc disease M50.90 [facility] [place] [address] [facility] [id number] [address] [place] [address] Dec, Cervical disc disease M50.90 ; Acquired hypothyroidism E03.9 and Migraine without aura and without status migrainosus, not intractable G43.009 [facility] [place] [address] [facility] [id number] [address] [place] [address] Nov, [facility] [place] [address] [facility] [id number] [address] [place] [address] Nov, Cervical disc disease M50.90 [facility] [place] [address] [facility] [id number] [address] [place] [address] Oct, Cervical disc disease M50.90 [facility] [place] [address] [facility] [id number] [address] [place] [address] Sep, [facility] [place] [address] [facility] [id number] [address] [place] [address] Sep, Cervical disc disease M50.90 [facility] [place] [address] [facility] [id number] [address] [place] [address] Aug, Cervical disc disease M50.90 [facility] [place] [address] [facility] [id number] [address] [place] [address] Jul, Cervical disc disease M50.90 [facility] [place] [address] [facility] [id number] [address] [place] [address] Jun, Acute recurrent pansinusitis J01.41 and Cervical disc disease M50.90 [facility] [place] [address] [facility] [id number] [address] [place] [address] Jun, Cervical disc disease M50.90 [facility] [place] [address] [id number] [address] [place] [address] May, Cervical disc disease M50.90 [facility] [place] [address] [id number] [address] [place] [address] Apr, Cervical disc disease M50.90 [facility] [place] [address] [id number] [address] [place] [address] Mar, Cervical disc disease M50.90 [facility] [place] [address] [id number] [address] [place] [address] Mar, [facility] [place] [address] [id number] [address] [place] [address] Mar, Cervical disc disease M50.90 [facility] [place] [address] [id number] [address] [place] [address] Feb, Cervical disc disease M50.90 [facility] [place] [address] [id number] [address] [place] [address] January, Cervical disc disease M50.90 [facility] [place] [address] [id number] [address] [place] [address] Dec, [facility] [place] [address] [id number] [address] [place] [address] Dec, Cervical disc disease M50.90 [facility] [place] [address] [id number] [address] [place] [address] Nov, Cervical disc disease M50.90 [facility] [place] [address] [id number] [address] [place] [address] Nov, Cervical disc disease M50.90 [facility] [place] [address] [id number] [address] [place] [address] Oct, Cervical disc disease M50.90 [facility] [place] [address] [id number] [address] [place] [address] Oct, Cervical disc disease M50.90 and Acute non-recurrent maxillary sinusitis J01.00 [facility] [place] [address] [id number] [address] [place] [address] Sep, Cervical disc disease M50.90 [facility] [address] [id number] [address] [place] [address] Sep, [facility] [address] [facility] [id number] [address] [place] [address] Sep, Fatigue, unspecified type R5 3.83 and Cough R05 [facility] [place] [address] [facility] [id number] [address] [place] [address] Aug, Cervical disc disease M50.90 [facility] [address] [facility] [id number] [address] [place] [address] Aug, Sore throat J02.9 ; Canker s ore K12.0 and History of anemia Z86.2 [facility] [place] [address] [facility] [id number] [address] [place] [address] Jul, Cervical disc disease M50.90 [place] [address] [facility] [id number] [address] [place] [address] Jun, Cervical disc disease M50.90 [facility] [place] [address] [facility] [id number] [address] [place] [address] Jun, Cervical disc disease M50.90 [facility] [place] [address] [facility] [id number] [address] [place] [address] May, Cervical disc disease M50.90 [facility] [place] [address] [facility] [id number] [address] [place] [address] Apr, Cervical disc disease M50.90 [facility] [place] [address] [facility] [id number] [address] [place] [address] Apr, [facility] [place] [address] [facility] [id number] [address] [place] [address] Feb, Cervical disc disease M50.90 [place] [address] [facility] [id number] [address] [place] [address] January, Cervical disc disease M50.90 [facility] [address] [facility] [id number] [address] [place] [address] Nov, [facility] [place] [address] [facility] [id number] [address] [place] [address] Nov, Cervical disc disease M50.90 [facility] [address] [facility] [id number] [address] [place] [address] Nov, Acute cystitis with hematuri a N30.01 and Dysuria R30.0 [facility] [address] [place] [id number] [place] [address] Oct, Cervical disc disease M50.90 and Acute non-recurrent frontal sinusitis J01.10 [place] [address] [place] [id number] [address] [place] [address] Sep, Neck pain M54.2 [facility] [place] [address] [place] [id number] [address] [place] [address] Sep, [facility] [place] [address] [place] [id number] [place] [address] Aug, Cervical disc disease M50.90 [facility] [place] [address] [place] [id number] [address] [place] [address] Jul, [facility] [place] [address] [place] [id number] [address] [place] [address] Jun, [facility] [place] [address] [place] [id number] [address] [place] [address] May, [place] [address] [place] [id number] [place] [address] May, Screening for diabetes emilio tus Z13.1 ; Chronic fatigue R53.82 and Edema, unspecified type R60.9 [facility] [place] [address] [place] [id number] [address] [place] [address] Apr, Neck pain M54.2 [facility] [place] [address] [id number] [address] [place] [address], [place] [address] Mar, [facility] [place] [address] [id number] [address] [place] [address] Mar, Neck pain M54.2 [facility] [place] [address] [id number] [address] [place] [address] Feb, Cervical disc disease M50.90 [facility] [place] [address] [id number] [address] [place] [address] Feb, Cervical disc disease M50.90 [facility] [place] [address] [id number] [address] [place] [address] January, [facility] [place] [address] [id number] [address] [place] [address] January, [facility] [address] [id number] [address] [place] [address] January, Cervical disc disease M50.90 [facility] [address] [id number] [address] [place] [address] January, [facility] [place] [address] [id number] [address] [place] [address] January, [facility] [place] [address] [id number] [address] [place] [address] Dec, Cervical disc disease M50.90 [facility] [place] [address] [id number] [address] [place] [address] Nov, Cervical disc disease M50.90 [facility] [place] [address] [id number] [address] [place] [address] Oct, Cervical disc disease M50.90 [facility] [address] [id number] [address] [place] [address] Sep, Cervical disc disease M50.90 [facility] [address] [id number] [address] [place] [address] [id number] 16 Aug, 2015 Dental caries K02.9 and Enco unter for dental examination Z01.20 [facility] [address] [id number] [address] [place] [address] Aug, [facility] [address] [id number] [address] [place] [id number] Aug, [facility] [address] [id number] [address] [place] [address] [id number] 08 Aug, 2015 Encounter for dental examina tion Z01.20 [facility] [address] [id number] [address] [place] [address] Jul, [facility] [address] [facility] [id number] [address] [place] [address] Jun, Sinusitis J32.9 and Cervical disc disease M50.90 [facility] [address] [id number] [address] [place] [address] Jun, [facility] [place] [address] [id number] [address] [place] [id number] 24 May, 2015 [facility] [address] [id number] [address] [place] [id number] May, [facility] [address] [id number] [address] [place] [address] May, [facility] [address] [id number] [address] [place] [phone] May, [facility] [address] [id number] [address] [place] [address] Apr, Cervical spondylosis without myelopathy 721.0 [facility] [address] [id number] [address] [place] [address] Mar, [facility] [address] [id number] [address] [place] [phone] January, Cervical spondylosis without myelopathy 721.0 [facility] [address] [id number] [address] [place] [address], [place] [address] 28 Dec, 2014 [facility] [address] [id number] [address] [place] [address], [place] [address] 14 Dec, 2014 [facility] [address] [id number] [address] [place] [address], [place] [address] 13 Dec, 2014 [facility] [address] [id number] [address] [place] [address], [place] [address] Nov, [facility] [address] [id number] [address] [place] [address], [place] [address] Nov, [facility] [address] [id number] [address] [place] [address], [place] [address] Oct, [facility] [address] [id number] [address] [place] [address], [place] [address] Oct, 2014 [facility] [address] [id number] [address] [place] [address], [place] [address] Oct, 2014 [facility] [address] [id number] [address] [place] [address], [place] [address] Oct, [facility] [address] [id number] [address] [place] [address], [place] [address] Oct, [facility] [address] [id number] [address] [place] [address], [place] [address] Oct, 2014 [facility] [address] [id number] [address] [place] [address], [place] [address] Oct, 2014 [facility] [address] [id number] [address] [place] [address], [place] [address] Oct, 2014 [facility] [address] [id number] [address] [place] [address], [place] [address] Oct, 2014 [facility] [address] [id number] [address] [place] [address], [place] [address] Oct, 2014 [facility] [address] [id number] [address] [place] [address] [place] [address] Sep, [facility] [address] [id number] [address] [place] [address], [place] [address] Sep, [facility] [address] [id number] [address] [place] [address], [place] [address] Sep, [facility] [address] [id number] [address] [place] [address], [place] [address] Sep, [facility] [address] [id number] [address] [place] [address], [place] [address] Sep, [facility] [address] [id number] [address] [place] [address], [place] [address] Sep, [facility] [address] [id number] [address] [place] [address], [place] [address] Sep, [facility] [address] [id number] [address] [place] [address], [place] [address] Sep, [facility] [address] [id number] [address] [place] [address], [place] [address] Sep, [facility] [address] [id number] [address] [place] [address], [place] [address] Aug, [facility] [address] [id number] [address] [place] [address], [place] [address] Aug, [facility] [address] [id number] [address] [place] [address], [place] [address] Aug, [facility] [address] [id number] [address] [place] [address], [place] [address] Aug, [facility] [address] [id number] [address] [place] [address], [place] [address] Jul, [facility] [address] [id number] [address] [place] [address], [place] [address] Jul, [facility] [address] [id number] [address] [place] [address], [place] [address] Jul, [facility] [address] [id number] [address] [place] [address], [place] [address] 17 Jul, 2014 [facility] [address] [id number] [address] [place] [address], [place] [address] Jul, [facility] [address] [id number] [address] [place] [address], [place] [address] Jul, [facility] [address] [id number] [address] [place] [address], [place] [address] Jul, [facility] [address] [id number] [address] [place] [address], [place] [address] Jul, [facility] [address] [id number] [address] [place] [address], [place] [address] Jun, [facility] [address] [id number] [address] [place] [address], [place] [address] 27 Jun, 2014 [facility] [address] [id number] [address] [place] [address], [place] [address] 20 Jun, 2014 [facility] [address] [id number] [address] [place] [address], [place] [address] 20 Jun, 2014 [facility] [address] [id number] [address] [place] [address], [place] [address] 16 Jun, 2014 [facility] [address] [id number] [address] [place] [address], [place] [address] 15 Jun, 2014 [facility] [address] [id number] [address] [place] [address], [place] [address] 15 Jun, 2014 [facility] [address] [id number] [address] [place] [address], [place] [address] 14 Jun, 2014 [facility] [address] [id number] [address] [place] [address], [place] [address] 14 Jun, 2014 [facility] [address] [id number] [address] [place] [address], [place] [address] 11 Jun, 2014 [facility] [address] [id number] [address] [place] [address], [place] [address] Jun, [facility] [address] [id number] [facility] [place] [address] May, [facility] [address] [id number] [address] [place] [address], [place] [address] May, [facility] [address] [id number] [address] [place] [address], [place] [address] May, [facility] [address] [id number] [address] [place] [address], [place] [address] May, [facility] [address] [id number] [address] [place] [address], [place] [address] May, [facility] [address] [id number] [address] [place] [address], [place] [address] Apr, [facility] [address] [id number] [address] [place] [address], [place] [address] Apr, [facility] [address] [id number] [address] [place] [address], [place] [address] Apr, [facility] [address] [id number] [address] [place] [address], [place] [address] Apr, [facility] [address] [id number] [address] [place] [address], [place] [address] Apr, [facility] [address] [id number] [address] [place] [address], [place] [address] Apr, [facility] [address] [id number] [address] [place] [address], [place] [address] Mar, [facility] [address] [id number] [address] [place] [address], [place] [address] Mar, [facility] [address] [id number] [address] [place] [address], [place] [address] Mar, [facility] [address] [id number] [address] [place] [address], [place] [address] Mar, [facility] [address] [id number] [address] [place] [address], [place] [address] 07 Mar, 2014 [facility] [address] [id number] [address] [place] [address], [place] [address] Mar, [facility] [address] [id number] [address] [place] [address], [place] [address] Feb, [facility] [address] [id number] [address] [place] [address], [place] [address] Feb, [facility] [address] [id number] [address] [place] [address], [place] [address] Feb, [facility] [address] [id number] [address] [place] [address], [place] [address] Feb, [facility] [address] [id number] [address] [place] [address], [place] [address] Feb, [facility] [address] [id number] [address] [place] [address], [place] [address] Feb, [facility] [address] [id number] [address] [place] [address], [place] [address] Feb, [facility] [address] [id number] [address] [place] [address], [place] [address] Feb, [facility] [address] [id number] [address] [place] [address], [place] [address] January, [facility] [address] [id number] [address] [place] [address], [place] [address] January, [facility] [address] [id number] [address] [place] [address], [place] [address] January, [facility] [address] [id number] [address] [place] [address], [place] [address] January, [facility] [address] [id number] [address] [place] [address], [place] [address] January, [facility] [address] [id number] [address] [place] [address], [place] [address] January, [facility] [address] [id number] [address] [place] [address], [place] [address] January, [facility] [address] [id number] [address] [place] [address], [place] [address] January, [facility] [address] [id number] [address] [place] [address], [place] [address] Dec, [facility] [address] [id number] [address] [place] [address], [place] [address] Dec, [facility] [address] [id number] [address] [place] [address], [place] [address] Dec, [facility] [address] [id number] [address] [place] [address], [place] [address] Dec, [facility] [address] [id number] [address] [place] [address], [place] [address] Dec, [facility] [address] [id number] [address] [place] [address], [place] [address] Dec, [facility] [address] [id number] [address] [place] [address], [place] [address] Nov, [facility] [address] [id number] [address] [place] [address], [place] [address] Nov, [facility] [address] [id number] [address] [place] [address], [place] [address] Nov, [facility] [address] [id number] [address] [place] [address], [place] [address] Nov, [facility] [address] [id number] [address] [place] [address], [place] [address] Nov, [facility] [address] [id number] [address] [place] [address], [place] [address] Nov, [facility] [address] [id number] [address] [place] [address], [place] [address] Nov, [facility] [address] [id number] [address] [place] [address], [place] [address] Nov, [facility] [address] [id number] [address] [place] [address], [place] [address] Oct, [facility] [address] [id number] [address] [place] [address], [place] [address] Oct, [facility] [address] [id number] [address] [place] [address], [place] [address] Sep, [facility] [address] [id number] [address] [place] [address], [place] [address] Sep, [facility] [address] [id number] [address] [place] [address], [place] [address] Sep, [facility] [address] [id number] [address] [place] [address], [place] [address] Sep, [facility] [address] [id number] [address] [place] [address], [place] [address] Aug, [facility] [address] [id number] [address] [place] [address], [place] [address] Aug, [facility] [address] [id number] [address] [place] [address], [place] [address] Aug, [facility] [address] [id number] [address] [place] [address], [place] [address] Aug, [facility] [address] [id number] [address] [place] [address], [place] [address] Jul, [facility] [address] [id number] [address] [place] [address], [place] [address] Jul, [facility] [address] [id number] [address] [place] [address], [place] [address] Jul, [facility] [address] [id number] [address] [place] [address], [place] [address] Jul, [facility] [address] [id number] [address] [place] [address], [place] [address] Jul, [facility] [address] [id number] [address] [place] [address], [place] [address] Jul, [facility] [address] [id number] [address] [place] [address], [place] [address] Jul, [facility] [address] [id number] [address] [place] [address], [place] [address] Jul, [facility] [address] [id number] [address] [place] [address], [place] [address] Jul, [facility] [address] [id number] [address] [place] [address], [place] [address] Jul, [facility] [address] [id number] [address] [place] [address], [place] [address] Jul, [facility] [address] [id number] [address] [place] [address], [place] [address] Jul, [facility] [address] [id number] [address] [place] [address], [place] [address] Jun, [facility] [address] [id number] [address] [place] [address], [place] [address] Jun, [facility] [address] [id number] [address] [place] [address], [place] [address] Jun, [facility] [address] [id number] [address] [place] [address], [place] [address] Jun, [facility] [address] [id number] [address] [place] [address], [place] [address] 16 Jun, 2013 [facility] [address] [id number] [address] [place] [address], [place] [address] 14 Jun, 2013 [facility] [address] [id number] [address] [place] [address], [place] [address] 14 Jun, 2013 [facility] [address] [id number] [address] [place] [address], [place] [address] 02 Jun, 2013 [facility] [address] [id number] [address] [place] [address], [place] [address] 15 May, 2013 [facility] [address] [id number] [address] [place] [address], [place] [address] 05 May, 2013 [facility] [address] [id number] [address] [place] [address], [place] [address] May, [facility] [address] [id number] [address] [place] [address], [place] [address] Apr, [facility] [address] [id number] [address] [place] [address], [place] [address] Apr, [facility] [address] [id number] [address] [place] [address], [place] [address] Mar, [facility] [address] [id number] [address] [place] [address], [place] [address] Mar, [facility] [address] [id number] [address] [place] [address], [place] [address] Feb, [facility] [address] [id number] [address] [place] [address], [place] [address] January, [facility] [address] [id number] [address] [place] [address], [place] [address] January, [facility] [address] [id number] [address] [place] [address], [place] [address] January, [facility] [address] [id number] [address] [place] [address], [place] [address] January, [facility] [address] [id number] [address] [place] [address], [place] [address] January, [facility] [address] [id number] [address] [place] [address], [place] [address] Dec, [facility] [address] [id number] [address] [place] [address], [place] [address] Dec, [facility] [address] [id number] [address] [place] [address], [place] [address] Dec, [facility] [address] [id number] [address] [place] [address], [place] [address] 18 Nov, 2012 [facility] [address] [id number] [address] [place] [address], [place] [address] 27 Oct, 2012 [facility] [address] [id number] [address] [place] [address], [place] [address] 18 Oct, 2012 [facility] [address] [id number] [address] [place] [address], [place] [address] 15 Oct, 2012 [facility] [address] [id number] [address] [place] [address], [place] [address] 18 Sep, 2012 [facility] [address] [id number] [address] [place] [address], [place] [address] 16 Sep, 2012 [facility] [address] [id number] [address] [place] [address], [place] [address] 14 Aug, 2012 [facility] [address] [id number] [address] [place] [address], [place] [address] 14 Aug, 2012 [facility] [address] [id number] [address] [place] [address], [place] [address] Aug, [facility] [address] [id number] [address] [place] [address], [place] [address] Aug, [facility] [address] [id number] [address] [place] [address], [place] [address] Jul, [facility] [address] [id number] [address] [place] [address], [place] [address] Jul, [facility] [address] [id number] [address] [place] [address], [place] [address] Jul, [facility] [address] [id number] [address] [place] [address], [place] [address] 09 Jul, 2012 [facility] [address] [id number] [address] [place] [address], [place] [address] 09 Jul, 2012 [facility] [address] [id number] [address] [place] [address], [place] [address] 15 Jun, 2012 [facility] [address] [id number] [address] [place] [address], [place] [address] 15 Jun, 2012 [facility] [address] [id number] [address] [place] [address], [place] [address] 10 Jun, 2012 [facility] [address] [id number] [address] [place] [address], [place] [address] 10 Jun, 2012 [facility] [address] [id number] [address] [place] [address], [place] [address] 10 May, 2012 [facility] [address] [id number] [address] [place] [address], [place] [address] Apr, [facility] [address] [id number] [address] [place] [address], [place] [address] Apr, [facility] [address] [id number] [address] [place] [address], [place] [address] Apr, [facility] [address] [id number] [address] [place] [address], [place] [address] Apr, [facility] [address] [id number] [address] [place] [address], [place] [address] January, [facility] [address] [id number] [address] [place] [address], [place] [address] January, [facility] [address] [id number] [address] [place] [address], [place] [address] Dec, [facility] [address] [id number] [address] [place] [address], [place] [address] Dec, [facility] [address] [id number] [address] [place] [address], [place] [address] Nov, [facility] [address] [id number] [address] [place] [address], [place] [address] Nov, [facility] [address] [id number] [address] [place] [address], [place] [address] Nov, [facility] [address] [id number] [address] [place] [address] Nov, [facility] [address] [id number] [address] [place] [address], [place] [address] Oct, [facility] [address] [id number] [address] [place] [address], [place] [address] Oct, [facility] [address] [id number] [address] [place] [address], [place] [address] Oct, [facility] [address] [id number] [address] [place] [address], [place] [address] Sep, [facility] [address] [id number] [address] [place] [address], [place] [address] Sep, [facility] [address] [id number] [address] [place] [address], [place] [address] Aug, [facility] [address] [id number] [address] [place] [address], [place] [address] Aug, [facility] [address] [id number] [address] [place] [address], [place] [address] Jul, [facility] [address] [id number] [address] [place] [address], [place] [address] Jul, [facility] [address] [id number] [address] [place] [address], [place] [address] Jul, [facility] [address] [id number] [address] [place] [address], [place] [address] Jun, [facility] [address] [id number] [address] [place] [address] 24 Jun, 2011 [facility] [address] [id number] [address] [place] [address] Jun, [facility] [address] [id number] [address] [place] [address] Jun, [facility] [address] [id number] [address] [place] [address] Jun, [facility] [address] [id number] [address] [place] [address], [place] [address] 10 Jun, 2011 [facility] [address] [id number] [address] [place] [address], [place] [address] Aug, [facility] [address] [id number] [address] [place] [address], [place] [address] Aug, [facility] [address] [id number] [address] [place] [address], [place] [address] Aug, [facility] [address] [id number] [address] [place] [address], [place] [address] Jul, [facility] [address] [id number] [address] [place] [address], [place] [address] Jul, [facility] [address] [id number] [address] [place] [address], [place] [address] Jul, [facility] [address] [id number] [address] [place] [address], [place] [address] Jul, [facility] [address] [id number] [address] [place] [address], [place] [address] Jul, [facility] [address] [id number] [address] [place] [address], [place] [address] Jul, [facility] [address] [id number] [address] [place] [address], [place] [address] Jun, [facility] [address] [id number] [address] [place] [address], [place] [address] Apr, [facility] [address] [id number] [address] [place] [address], [place] [address] Feb, [facility] [address] [id number] [address] [place] [address], [place] [id number] 10 Oct, 2009 [facility] [address] [id number] [address] [place] [address], [place] [id number] 13 Sep, 2009 [facility] [address] [id number] [address] [place] [id number] Aug, [facility] [place] [address] [facility] [id number] [address] [place] [phone] Aug, [facility] [place] [address] [facility] [id number] [address] [place] [phone] Aug, [facility] [place] [address] [facility] [id number] [address] [place] [id number] Jul, [facility] [place] [address] [facility] [id number] [address] [place] [id number] Jun, IMMUNIZATIONS No Known Immunizations SOCIAL HISTORY Never Assessed REASON FOR VISIT PLAN OF CARE VITAL SIGNS Height 65 in 2013-06-16 Weight 164.7 lbs 2013-06-16 Temperature 98.5 degrees Fahrenheit 2013-06-16 Heart Rate 76 bpm 2013-06-16 Respiratory Rate 18 2013-06-16 Blood pressure systolic 142 mmHg 2013-06-16 Blood pressure diastolic 80 mmHg 2013-06-16 MEDICATIONS No Known Medications RESULTS No Results PROCEDURES Procedure Date Ordered Result Body Site COMPLETE CBC W/AUTO DIFF WBC Jun 16, 2013 INSTRUCTIONS MEDICATIONS ADMINISTERED No Known Medications [...]
--- OUTSIDE RECORDS SUMMARY | 2020-02-22 17:08 | XMS REPORT ---
Author Author Marion CORREA Organization [facility] Address [address] [place] [address] Care Team Providers Care Automotive Professional Name Role Phone SHABNAM CORREA Unavailable PROBLEMS Type Condition ICD9-CM Code AMS03-LH Code Onset Dates Condition S tatus SNOMED Code Problem Acquired hypothyroidism E03.9 Active 520664460 Problem Gastro-esophageal reflux disease without esophagitis K21.9 Active 245946540 Problem Cervical disc disease M50.90 Active 475602244 Problem Dyspepsia R10.13 Active 954951160 Problem Migraine without aura and without status migrain osus, not intractable G43.009 Active 290013948 ALLERGIES No Information ENCOUNTERS Encounter Location Date Diagnosis [facility] [address] [facility] [id number] [address] [place] [address] January, Cervical disc disease M50.[address] 340[id number] [place] [address] January, Cervical disc disease M50.90 [facility] [address] [facility] [id number] [address] [place] [address] Dec, [facility] [address] [facility] [id number] [address] [place] [address] Nov, [facility] [address] [facility] [id number] [address] [place] [address] Nov, Cervical disc disease M50.90 [facility] [address] [facility] [id number] [address] [place] [address] Oct, [facility] [address] [facility] [id number] [address] [place] [address] Oct, Cervical disc disease M50.90 [facility] [address] [facility] [id number] [address] [place] [address] 13 Oct, 2019 Contusion of left knee, init ial encounter S80.02XA [facility] [address] [id number] [address] [place] [address] 13 Oct, 2019 Cervical disc disease M50.90 [facility] [address] [id number] [address] [place] [address] 12 Oct, 2019 [facility] [address] [id number] [address] [place] [address] Oct, Acute pain of left knee M25. 562 [facility] [address] [id number] [address] [place] [address] Sep, [facility] [address] [id number] [address] [place] [address] Sep, Cervical disc disease M50.90 [facility] [address] [id number] [address] [place] [address] Sep, Cervical disc disease M50.90 [facility] [address] [id number] [address] [place] [address] Aug, Cervical disc disease M50.90 [facility] [address] [id number] [address] [place] [address] Aug, [facility] [address] [id number] [address] [place] [address] Jul, Cervical disc disease M50.90 [facility] [address] [id number] [address] [place] [address] Jun, Cervical disc disease M50.90 [facility] [address] [id number] [address] [place] [address] May, [facility] [address] [id number] [address] [place] [address] May, Cervical disc disease M50.90 [facility] [address] [id number] [address] [place] [address] May, Acute cystitis with hematuri a N30.01 and UTI symptoms R39.9 [facility] [address] [id number] [address] [place] [address] May, [facility] [address] [id number] [address] [place] [address] Apr, Cervical disc disease M50.90 [facility] [address] [id number] [address] [place] [address] Apr, Cervical disc disease M50.90 ; Gastro-esophageal reflux disease without esophagitis K21.9 and Sinus headache R51 [facility] [address] [id number] [address] [place] [address] Apr, [facility] [address] [id number] [address] [place] [address] Apr, Cervical disc disease M50.90 [facility] [address] [id number] [address] [place] [address] Mar, [facility] [address] [id number] [address] [place] [address] Mar, Cervical disc disease M50.90 [facility] [address] [id number] [address] [place] [address] Feb, [id number] [address] Feb, Cervical disc disease M50.[address] 340[id number] [address] January, [facility] [address] [id number] [address] [place] [address] January, Cervical disc disease M50.90 [facility] [address] [id number] [address] [place] [address] January, Cervical disc disease M50.90 [facility] [address] [id number] [address] [place] [address] Dec, Cervical disc disease M50.90 [facility] [address] [facility] [id number] [address] [place] [address] Dec, Cervical disc disease M50.90 [facility] [address] [facility] [id number] [address] [place] [address] Dec, Cervical disc disease M50.90 [facility] [address] [facility] [id number] [address] [place] [address] Dec, Cervical disc disease M50.90 ; Acquired hypothyroidism E03.9 and Migraine without aura and without status migrainosus, not intractable G43.009 [facility] [address] [facility] [id number] [address] [place] [address] Nov, [facility] [address] [facility] [id number] [address] [place] [address] Nov, Cervical disc disease M50.90 [facility] [address] [facility] [id number] [address] [place] [address] Oct, Cervical disc disease M50.90 [facility] [address] [facility] [id number] [address] [place] [address] Sep, [facility] [address] [facility] [id number] [address] [place] [address] Sep, Cervical disc disease M50.90 [facility] [address] [facility] [id number] [address] [place] [address] Aug, Cervical disc disease M50.90 [facility] [address] [facility] [id number] [address] [place] [address] Jul, Cervical disc disease M50.90 [facility] [address] [facility] [id number] [address] [place] [address] Jun, Acute recurrent pansinusitis J01.41 and Cervical disc disease M50.90 [facility] [address] [facility] [id number] [address] [place] [address] Jun, Cervical disc disease M50.90 [facility] [address] [id number] [address] [place] [address] May, Cervical disc disease M50.90 [facility] [address] [id number] [address] [place] [address] Apr, Cervical disc disease M50.90 [facility] [address] [id number] [address] [place] [address] Mar, Cervical disc disease M50.90 [facility] [address] [id number] [address] [place] [address] Mar, [facility] [address] [id number] [address] [place] [address] Mar, Cervical disc disease M50.90 [facility] [address] [id number] [address] [place] [address] Feb, Cervical disc disease M50.90 [facility] [address] [id number] [address] [place] [address] January, Cervical disc disease M50.90 [facility] [address] [id number] [address] [place] [address] Dec, [facility] [address] [id number] [address] [place] [address] Dec, Cervical disc disease M50.90 [facility] [address] [id number] [address] [place] [address] Nov, Cervical disc disease M50.90 [facility] [address] [id number] [address] [place] [address] Nov, Cervical disc disease M50.90 [facility] [address] [id number] [address] [place] [address] Oct, Cervical disc disease M50.90 [facility] [address] [id number] [address] [place] [address] Oct, Cervical disc disease M50.90 and Acute non-recurrent maxillary sinusitis J01.00 [facility] [address] [id number] [address] [place] [address] Sep, Cervical disc disease M50.90 [facility] [address] [id number] [address] [place] [address] Sep, [facility] [address] [facility] [id number] [address] [place] [address] Sep, Fatigue, unspecified type R5 3.83 and Cough R05 [facility] [address] [facility] [id number] [address] [place] [address] Aug, Cervical disc disease M50.90 [facility] [address] [facility] [id number] [address] [place] [address] Aug, Sore throat J02.9 ; Canker s ore K12.0 and History of anemia Z86.2 [facility] [address] [facility] [id number] [address] [place] [address] Jul, Cervical disc disease M50.90 [place] [id number] [facility] [id number] [address] [place] [address] Jun, Cervical disc disease M50.90 [facility] [address] [facility] [id number] [address] [place] [address] Jun, Cervical disc disease M50.90 [facility] [address] [facility] [id number] [address] [place] [address] May, Cervical disc disease M50.90 [facility] [address] [facility] [id number] [address] [place] [address] Apr, Cervical disc disease M50.90 [facility] [address] [facility] [id number] [address] [place] [address] Apr, [facility] [address] [facility] [id number] [address] [place] [address] Feb, Cervical disc disease M50.90 [place] [address] [facility] [id number] [address] [place] [address] January, Cervical disc disease M50.90 [facility] [address] [facility] [id number] [address] [place] [address] Nov, [facility] [address] [facility] [id number] [address] [place] [address] Nov, Cervical disc disease M50.90 [facility] [address] [facility] [id number] [address] [place] [address] Nov, Acute cystitis with hematuri a N30.01 and Dysuria R30.0 [facility] [address] [place] [id number] [place] [address] Oct, Cervical disc disease M50.90 and Acute non-recurrent frontal sinusitis J01.10 [place] [address] [place] [id number] [address] [place] [address] Sep, Neck pain M54.2 [facility] [address] [place] [id number] [address] [place] [address] Sep, [facility] [address] [place] [id number] [place] [address] Aug, Cervical disc disease M50.90 [facility] [address] [place] [id number] [address] [place] [address] Jul, [facility] [address] [place] [id number] [address] [place] [address] Jun, [facility] [address] [place] [id number] [address] [place] [address] May, [place] [address] [place] [id number] [place] [address] May, Screening for diabetes emilio tus Z13.1 ; Chronic fatigue R53.82 and Edema, unspecified type R60.9 [facility] [address] [place] [id number] [address] [place] [address] Apr, Neck pain M54.2 [facility] [address] [id number] [address] [place] [address], [place] [address] Mar, [facility] [address] [id number] [address] [place] [address] Mar, Neck pain M54.2 [facility] [address] [id number] [address] [place] [address] Feb, Cervical disc disease M50.90 [facility] [address] [id number] [address] [place] [address] Feb, Cervical disc disease M50.90 [facility] [address] [id number] [address] [place] [address] January, [facility] [address] [id number] [address] [place] [address] January, [facility] [address] [id number] [address] [place] [address] January, Cervical disc disease M50.90 [facility] [address] [id number] [address] [place] [address] January, [facility] [address] [id number] [address] [place] [address] January, [facility] [address] [id number] [address] [place] [address] Dec, Cervical disc disease M50.90 [facility] [address] [id number] [address] [place] [address] Nov, Cervical disc disease M50.90 [facility] [address] [id number] [address] [place] [address] Oct, Cervical disc disease M50.90 [facility] [address] [id number] [address] [place] [address] Sep, Cervical disc disease M50.90 [facility] [address] [id number] [address] [place] [id number] 16 Aug, 2015 Dental caries K02.9 and Enco unter for dental examination Z01.20 [facility] [address] [id number] [address] [place] [address] Aug, [facility] [address] [id number] [address] [place] [address] Aug, [facility] [address] [id number] [address] [place] [id number] Aug, 2015 Encounter for dental examina tion Z01.20 [facility] [address] [id number] [address] [place] [address] Jul, [facility] [address] [facility] [id number] [address] [place] [address] Jun, Sinusitis J32.9 and Cervical disc disease M50.90 [facility] [address] [id number] [address] [place] [address] Jun, [facility] [address] [id number] [address] [place] [address] 24 May, 2015 [facility] [address] [id number] [address] [place] [address] May, [facility] [address] [id number] [address] [place] [address] May, [facility] [address] [id number] [address] [place] [address] May, [facility] [address] [id number] [address] [place] [address] Apr, Cervical spondylosis without myelopathy 721.0 [facility] [address] [id number] [address] [place] [address] Mar, [facility] [address] [id number] [address] [place] [address] January, Cervical spondylosis without myelopathy 721.0 [facility] [address] [id number] [address] [place] [address], [place] [address] 28 Dec, 2014 [facility] [address] [id number] [address] [place] [address], [place] [address] 14 Dec, 2014 [facility] [address] [id number] [address] [place] [address], [place] [address] 13 Dec, 2014 [facility] [address] [id number] [address] [place] [address], [place] [address] Nov, [facility] [address] [id number] [address] [place] [address], [place] [address] Nov, [facility] [address] [id number] [address] [place] [address], [place] [address] Oct, [facility] [address] [id number] [address] [place] [address], [place] [address] Oct, 2014 [facility] [address] [id number] [address] [place] [address], [place] [address] Oct, 2014 [facility] [address] [id number] [address] [place] [address], [place] [address] Oct, [facility] [address] [id number] [address] [place] [address], [place] [address] Oct, [facility] [address] [id number] [address] [place] [address], [place] [address] Oct, 2014 [facility] [address] [id number] [address] [place] [address], [place] [address] Oct, 2014 [facility] [address] [id number] [address] [place] [address], [place] [address] Oct, 2014 [facility] [address] [id number] [address] [place] [address], [place] [address] Oct, 2014 [facility] [address] [id number] [address] [place] [address], [place] [address] Oct, 2014 [facility] [address] [id number] [address] [place] [address] [place] [address] Sep, [facility] [address] [id number] [address] [place] [address], [place] [address] Sep, [facility] [address] [id number] [address] [place] [address], [place] [address] Sep, [facility] [address] [id number] [address] [place] [address], [place] [address] Sep, [facility] [address] [id number] [address] [place] [address], [place] [address] Sep, [facility] [address] [id number] [address] [place] [address], [place] [address] Sep, [facility] [address] [id number] [address] [place] [address], [place] [address] Sep, [facility] [address] [id number] [address] [place] [address], [place] [address] Sep, [facility] [address] [id number] [address] [place] [address], [place] [address] Sep, [facility] [address] [id number] [address] [place] [address], [place] [address] Aug, [facility] [address] [id number] [address] [place] [address], [place] [address] Aug, [facility] [address] [id number] [address] [place] [address], [place] [address] Aug, [facility] [address] [id number] [address] [place] [address], [place] [address] Aug, [facility] [address] [id number] [address] [place] [address], [place] [address] Jul, [facility] [address] [id number] [address] [place] [address], [place] [address] Jul, [facility] [address] [id number] [address] [place] [address], [place] [address] Jul, [facility] [address] [id number] [address] [place] [address], [place] [address] 17 Jul, 2014 [facility] [address] [id number] [address] [place] [address], [place] [address] Jul, [facility] [address] [id number] [address] [place] [address], [place] [address] Jul, [facility] [address] [id number] [address] [place] [address], [place] [address] Jul, [facility] [address] [id number] [address] [place] [address], [place] [address] Jul, [facility] [address] [id number] [address] [place] [address], [place] [address] Jun, [facility] [address] [id number] [address] [place] [address], [place] [address] 27 Jun, 2014 [facility] [address] [id number] [address] [place] [address], [place] [address] 20 Jun, 2014 [facility] [address] [id number] [address] [place] [address], [place] [address] 20 Jun, 2014 [facility] [address] [id number] [address] [place] [address], [place] [id number] 16 Jun, 2014 [facility] [address] [id number] [address] [place] [address], [place] [id number] 15 Jun, 2014 [facility] [address] [id number] [address] [place] [address], [place] [id number] 15 Jun, 2014 [facility] [address] [id number] [address] [place] [address], [place] [id number] 14 Jun, 2014 [facility] [address] [id number] [address] [place] [address], [place] [id number] 14 Jun, 2014 [facility] [address] [id number] [address] [place] [address], [place] [id number] 11 Jun, 2014 [facility] [address] [id number] [address] [place] [address], [place] [address] Jun, [facility] [address] [id number] [address] [place] [address] May, [facility] [address] [id number] [address] [place] [address], [place] [address] May, [facility] [address] [id number] [address] [place] [address], [place] [address] May, [facility] [address] [id number] [address] [place] [address], [place] [address] May, [facility] [address] [id number] [address] [place] [address], [place] [id number] May, [facility] [address] [id number] [address] [place] [address], [place] [address] Apr, [facility] [address] [id number] [address] [place] [address], [place] [address] Apr, [facility] [address] [id number] [address] [place] [address], [place] [address] Apr, [facility] [address] [id number] [address] [place] [address], [place] [address] Apr, [facility] [address] [id number] [address] [place] [address], [place] [address] Apr, [facility] [address] [id number] [address] [place] [address], [place] [address] Apr, [facility] [address] [id number] [address] [place] [address], [place] [address] Mar, [facility] [address] [id number] [address] [place] [address], [place] [address] Mar, [facility] [address] [id number] [address] [place] [address], [place] [address] Mar, [facility] [address] [id number] [address] [place] [address], [place] [address] Mar, [facility] [address] [id number] [address] [place] [address], [place] [id number] 07 Mar, 2014 [facility] [address] [id number] [address] [place] [address], [place] [address] Mar, [facility] [address] [id number] [address] [place] [address], [place] [id number] Feb, [facility] [address] [id number] [address] [place] [address], [place] [address] Feb, [facility] [address] [id number] [address] [place] [address], [place] [address] Feb, [facility] [address] [id number] [address] [place] [address], [place] [id number] Feb, [facility] [address] [id number] [address] [place] [address], [place] [address] Feb, [facility] [address] [id number] [address] [place] [address], [place] [address] Feb, [facility] [address] [id number] [address] [place] [address], [place] [id number] Feb, [facility] [address] [id number] [address] [place] [address], [place] [address] Feb, [facility] [address] [id number] [address] [place] [address], [place] [address] January, [facility] [address] [id number] [address] [place] [address] [address] January, [facility] [address] [id number] [address] [place] [address], [place] [address] January, [facility] [address] [id number] [address] [place] [address], [place] [address] January, [facility] [address] [id number] [address] [place] [address], [place] [address] January, [facility] [address] [id number] [address] [place] [address], [place] [address] January, [facility] [address] [id number] [address] [place] [address], [place] [address] January, [facility] [address] [id number] [address] [place] [address], [place] [address] January, [facility] [address] [id number] [address] [place] [address], [place] [address] Dec, [facility] [address] [id number] [address] [place] [address], [place] [address] Dec, [facility] [address] [id number] [address] [place] [address], [place] [address] Dec, [facility] [address] [id number] [address] [place] [address], [place] [address] Dec, [facility] [address] [id number] [address] [place] [address], [place] [address] Dec, [facility] [address] [id number] [address] [place] [address], [place] [address] Dec, [facility] [address] [id number] [address] [place] [address], [place] [address] Nov, [facility] [address] [id number] [address] [place] [address], [place] [address] Nov, [facility] [address] [id number] [address] [place] [address], [place] [address] Nov, [facility] [address] [id number] [address] [place] [address], [place] [address] Nov, [facility] [address] [id number] [address] [place] [address], [place] [address] Nov, [facility] [address] [id number] [address] [place] [address], [place] [address] Nov, [facility] [address] [id number] [address] [place] [address], [place] [address] Nov, [facility] [address] [id number] [address] [place] [address], [place] [address] Nov, [facility] [address] [id number] [address] [place] [address], [place] [address] Oct, [facility] [address] [id number] [address] [place] [address], [place] [address] Oct, [facility] [address] [id number] [address] [place] [address], [place] [address] Sep, [facility] [address] [id number] [address] [place] [address], [place] [address] Sep, [facility] [address] [id number] [address] [place] [address], [place] [address] Sep, [facility] [address] [id number] [address] [place] [address], [place] [address] Sep, [facility] [address] [id number] [address] [place] [address], [place] [address] Aug, [facility] [address] [id number] [address] [place] [address], [place] [address] Aug, [facility] [address] [id number] [address] [place] [address], [place] [address] Aug, [facility] [address] [id number] [address] [place] [address], [place] [address] Aug, [facility] [address] [id number] [address] [place] [address], [place] [address] Jul, [facility] [address] [id number] [address] [place] [address], [place] [address] Jul, [facility] [address] [id number] [address] [place] [address], [place] [address] Jul, [facility] [address] [id number] [address] [place] [address], [place] [address] Jul, [facility] [address] [id number] [address] [place] [address], [place] [address] Jul, [facility] [address] [id number] [address] [place] [address], [place] [address] Jul, [facility] [address] [id number] [address] [place] [address], [place] [address] Jul, [facility] [address] [id number] [address] [place] [address], [place] [address] Jul, [facility] [address] [id number] [address] [place] [address], [place] [address] Jul, [facility] [address] [id number] [address] [place] [address], [place] [address] Jul, [facility] [address] [id number] [address] [place] [address], [place] [address] Jul, [facility] [address] [id number] [address] [place] [address], [place] [address] Jul, [facility] [address] [id number] [address] [place] [address], [place] [address] Jun, [facility] [address] [id number] [address] [place] [address], [place] [address] Jun, [facility] [address] [id number] [address] [place] [address], [place] [address] Jun, [facility] [address] [id number] [address] [place] [address], [place] [address] Jun, [facility] [address] [id number] [address] [place] [address], [place] [address] 16 Jun, 2013 [facility] [address] [id number] [address] [place] [address], [place] [address] 14 Jun, 2013 [facility] [address] [id number] [address] [place] [address], [place] [address] 14 Jun, 2013 [facility] [address] [id number] [address] [place] [address], [place] [address] 02 Jun, 2013 [facility] [address] [id number] [address] [place] [address], [place] [address] 15 May, 2013 [facility] [address] [id number] [address] [place] [address], [place] [address] 05 May, 2013 [facility] [address] [id number] [address] [place] [address], [place] [address] May, [facility] [address] [id number] [address] [place] [address], [place] [address] Apr, [facility] [address] [id number] [address] [place] [address], [place] [address] Apr, [facility] [address] [id number] [address] [place] [address], [place] [address] Mar, [facility] [address] [id number] [address] [place] [address], [place] [address] Mar, [facility] [address] [id number] [address] [place] [address], [place] [address] Feb, [facility] [address] [id number] [address] [place] [address], [place] [address] January, [facility] [address] [id number] [address] [place] [address], [place] [address] January, [facility] [address] [id number] [address] [place] [address], [place] [address] January, [facility] [address] [id number] [address] [place] [address], [place] [address] January, [facility] [address] [id number] [address] [place] [address], [place] [address] January, [facility] [address] [id number] [address] [place] [address], [place] [address] Dec, [facility] [address] [id number] [address] [place] [address], [place] [address] Dec, [facility] [address] [id number] [address] [place] [address], [place] [address] Dec, [facility] [address] [id number] [address] [place] [address], [place] [address] 18 Nov, 2012 [facility] [address] [id number] [address] [place] [address], [place] [address] 27 Oct, 2012 [facility] [address] [id number] [address] [place] [address], [place] [address] 18 Oct, 2012 [facility] [address] [id number] [address] [place] [address], [place] [address] 15 Oct, 2012 [facility] [address] [id number] [address] [place] [address], [place] [address] 18 Sep, 2012 [facility] [address] [id number] [address] [place] [address], [place] [address] 16 Sep, 2012 [facility] [address] [id number] [address] [place] [address], [place] [address] 14 Aug, 2012 [facility] [address] [id number] [address] [place] [address], [place] [address] 14 Aug, 2012 [facility] [address] [id number] [address] [place] [address], [place] [address] Aug, [facility] [address] [id number] [address] [place] [address], [place] [address] Aug, [facility] [address] [id number] [address] [place] [address], [place] [address] Jul, [facility] [address] [id number] [address] [place] [address], [place] [address] Jul, [facility] [address] [id number] [address] [place] [address], [place] [address] Jul, [facility] [address] [id number] [address] [place] [address], [place] [address] 09 Jul, 2012 [facility] [address] [id number] [address] [place] [address], [place] [address] 09 Jul, 2012 [facility] [address] [id number] [address] [place] [address], [place] [address] 15 Jun, 2012 [facility] [address] [id number] [address] [place] [address], [place] [address] 15 Jun, 2012 [facility] [address] [id number] [address] [place] [address], [place] [address] 10 Jun, 2012 [facility] [address] [id number] [address] [place] [address], [place] [address] 10 Jun, 2012 [facility] [address] [id number] [address] [place] [address], [place] [address] 10 May, 2012 [facility] [address] [id number] [address] [place] [address], [place] [address] Apr, [facility] [address] [id number] [address] [place] [address], [place] [address] Apr, [facility] [address] [id number] [address] [place] [address], [place] [address] Apr, [facility] [address] [id number] [address] [place] [address], [place] [address] Apr, [facility] [address] [id number] [address] [place] [address], [place] [address] January, [facility] [address] [id number] [address] [place] [address], [place] [address] January, [facility] [address] [id number] [address] [place] [address], [place] [address] Dec, [facility] [address] [id number] [address] [place] [address], [place] [address] Dec, [facility] [address] [id number] [address] [place] [address], [place] [address] Nov, [facility] [address] [id number] [address] [place] [address], [place] [address] Nov, [facility] [address] [id number] [address] [place] [address], [place] [address] Nov, [facility] [address] [id number] [address] [place] [address] Nov, [facility] [address] [id number] [address] [place] [address], [place] [address] Oct, [facility] [address] [id number] [address] [place] [address], [place] [address] Oct, [facility] [address] [id number] [address] [place] [address], [place] [address] Oct, [facility] [address] [id number] [address] [place] [address], [place] [address] Sep, [facility] [address] [id number] [address] [place] [address], [place] [address] Sep, [facility] [address] [id number] [address] [place] [address], [place] [address] Aug, [facility] [address] [id number] [address] [place] [address], [place] [address] Aug, [facility] [address] [id number] [address] [place] [address], [place] [address] Jul, [facility] [address] [id number] [address] [place] [address], [place] [address] Jul, [facility] [address] [id number] [address] [place] [address], [place] [address] Jul, [facility] [address] [id number] [address] [place] [address], [place] [address] Jun, [facility] [address] [id number] [address] [place] [id number] 24 Jun, 2011 [facility] [address] [id number] [address] [place] [address] Jun, [facility] [address] [id number] [address] [place] [address] Jun, [facility] [address] [id number] [address] [place] [address] Jun, [facility] [address] [id number] [address] [place] [address], [place] [address] 10 Jun, 2011 [facility] [address] [id number] [address] [place] [address], [place] [address] Aug, [facility] [address] [id number] [address] [place] [address], [place] [address] Aug, [facility] [address] [id number] [address] [place] [address], [place] [address] Aug, [facility] [address] [id number] [address] [place] [address], [place] [address] Jul, [facility] [address] [id number] [address] [place] [address], [place] [address] Jul, [facility] [address] [id number] [address] [place] [address], [place] [address] Jul, [facility] [address] [id number] [address] [place] [address], [place] [address] Jul, [facility] [address] [id number] [address] [place] [address], [place] [address] Jul, [facility] [address] [id number] [address] [place] [address], [place] [address] Jul, [facility] [address] [id number] [address] [place] [address], [place] [address] Jun, [facility] [address] [id number] [address] [place] [address], [place] [address] Apr, [facility] [address] [id number] [address] [place] [address], [place] [address] Feb, [facility] [address] [id number] [address] [place] [address], [place] [address] 10 Oct, 2009 [facility] [address] [id number] [address] [place] [address], [place] [address] 13 Sep, 2009 [facility] [address] [id number] [address] [place] [id number] Aug, [facility] [address] [facility] [id number] [address] [place] [address] Aug, [facility] [address] [facility] [id number] [address] [place] [id number] Aug, [facility] [address] [facility] [id number] [address] [place] [address] Jul, [facility] [address] [facility] [id number] [address] [place] [address] Jun, IMMUNIZATIONS No Known Immunizations SOCIAL HISTORY [...]
--- OUTSIDE RECORDS SUMMARY | 2020-02-22 17:08 | XMS REPORT ---
Author Author Marion CORREA Organization [facility] Address [address] [place] [address] Care Team Providers Care Hammerer Tab Name Role Phone SHABNAM CORREA Unavailable PROBLEMS Type Condition ICD9-CM Code [id number] Code Onset Dates Condition S tatus SNOMED Code Problem Acquired hypothyroidism E03.9 Active 091448212 Problem Gastro-esophageal reflux disease without esophagitis K21.9 Active 886241000 Problem Cervical disc disease M50.90 Active 360421909 Problem Dyspepsia R10.13 Active 238193117 Problem Migraine without aura and without status migrain osus, not intractable G43.009 Active [id number] ALLERGIES No Information ENCOUNTERS Encounter Location Date Diagnosis [place] [id number] [place] [phone] January, [place] [address] [place] [id number] [address] [place] [phone] Dec, [place] [address] [place] [id number] [address] [place] [phone] Nov, [place] [address] [place] [id number] [address] [place] [phone] Nov, Cervical disc disease M50.90 [facility] [address] [facility] [id number] [address] [place] [phone] Oct, [place] [address] [facility] [id number] [address] [place] [phone] Oct, Cervical disc disease M50.90 [facility] [address] [place] [id number] [address] [place] [phone] Oct, Contusion of left knee, init ial encounter S80.02XA [place] [address] [place] [id number] [address] [place] [id number] 13 Oct, 2019 Cervical disc disease M50.90 [facility] [address] [id number] [address] [place] [phone] 12 Oct, 2019 [facility] [address] [id number] [address] [place] [phone] 11 Oct, 2019 Acute pain of left knee M25. 562 [facility] [address] [id number] [address] [place] [phone] 31 Sep, 2019 [facility] [address] [id number] [address] [place] [id number] 17 Sep, 2019 Cervical disc disease M50.90 [facility] [address] [id number] [address] [place] [id number] Sep, Cervical disc disease M50.90 [facility] [address] [id number] [address] [place] [phone] Aug, Cervical disc disease M50.90 [facility] [address] [id number] [address] [place] [phone] Aug, [facility] [address] [id number] [address] [place] [phone] Jul, Cervical disc disease M50.90 [facility] [address] [id number] [address] [place] [phone] Jun, Cervical disc disease M50.90 [facility] [address] [id number] [address] [place] [phone] May, [facility] [address] [id number] [address] [place] [phone] 25 May, 2019 Cervical disc disease M50.90 [facility] [address] [id number] [address] [place] [phone] 19 May, 2019 Acute cystitis with hematuri a N30.01 and UTI symptoms R39.9 [facility] [address] [id number] [address] [place] [phone] May, [facility] [address] [id number] [address] [place] [phone] Apr, Cervical disc disease M50.90 [facility] [address] [id number] [address] [place] [phone] Apr, Cervical disc disease M50.90 ; Gastro-esophageal reflux disease without esophagitis K21.9 and Sinus headache R51 [facility] [address] [id number] [address] [place] [phone] Apr, [facility] [address] [id number] [address] [place] [phone] Apr, Cervical disc disease M50.90 [facility] [address] [facility] [id number] [address] [place] [phone] Mar, [facility] [address] [facility] [id number] [address] [place] [phone] Mar, Cervical disc disease M50.90 [facility] [address] [facility] [id number] [address] [place] [phone] Feb, [address] [id number] [address] Feb, Cervical disc disease M50.[address] [id number] [address] January, [facility] [address] [facility] [id number] [address] [place] [phone] January, Cervical disc disease M50.90 [facility] [address] [facility] [id number] [address] [place] [phone] January, Cervical disc disease M50.90 [facility] [address] [facility] [id number] [address] [place] [phone] Dec, Cervical disc disease M50.90 [facility] [address] [facility] [id number] [address] [place] [phone] Dec, Cervical disc disease M50.90 [facility] [address] [facility] [id number] [address] [place] [phone] Dec, Cervical disc disease M50.90 [facility] [address] [facility] [id number] [address] [place] [phone] Dec, Cervical disc disease M50.90 ; Acquired hypothyroidism E03.9 and Migraine without aura and without status migrainosus, not intractable G43.009 [facility] [address] [facility] [id number] [address] [place] [phone] Nov, [facility] [address] [facility] [id number] [address] [place] [phone] Nov, Cervical disc disease M50.90 [facility] [address] [facility] [id number] [address] [place] [phone] Oct, Cervical disc disease M50.90 [facility] [address] [place] [id number] [address] [place] [phone] Sep, [facility] [address] [facility] [id number] [address] [place] [phone] Sep, Cervical disc disease M50.90 [facility] [address] [facility] [id number] [address] [place] [phone] Aug, Cervical disc disease M50.90 [facility] [address] [place] [id number] [address] [place] [phone] Jul, Cervical disc disease M50.90 [facility] [address] [facility] [id number] [address] [place] [phone] Jun, Acute recurrent pansinusitis J01.41 and Cervical disc disease M50.90 [facility] [address] [facility] [id number] [address] [place] [phone] Jun, Cervical disc disease M50.90 [facility] [address] [facility] [id number] [address] [place] [phone] May, Cervical disc disease M50.90 [facility] [address] [id number] [address] [place] [phone] Apr, Cervical disc disease M50.90 [facility] [address] [id number] [address] [place] [phone] Mar, Cervical disc disease M50.90 [facility] [address] [id number] [address] [place] [phone] Mar, [facility] [address] [id number] [address] [place] [phone] Mar, Cervical disc disease M50.90 [facility] [address] [id number] [address] [place] [phone] Feb, Cervical disc disease M50.90 [facility] [address] [id number] [address] [place] [phone] January, Cervical disc disease M50.90 [facility] [address] [id number] [address] [place] [phone] Dec, [facility] [address] [id number] [address] [place] [phone] Dec, Cervical disc disease M50.90 [facility] [address] [id number] [address] [place] [phone] Nov, Cervical disc disease M50.90 [facility] [address] [id number] [address] [place] [id number] Nov, Cervical disc disease M50.90 [facility] [address] [id number] [address] [place] [phone] Oct, Cervical disc disease M50.90 [facility] [address] [id number] [address] [place] [phone] Oct, Cervical disc disease M50.90 and Acute non-recurrent maxillary sinusitis J01.00 [facility] [address] [id number] [address] [place] [phone] Sep, Cervical disc disease M50.90 [facility] [address] [facility] [id number] [address] [place] [phone] Sep, [facility] [address] [facility] [id number] [address] [place] [phone] Sep, Fatigue, unspecified type R5 3.83 and Cough R05 [facility] [address] [facility] [id number] [address] [place] [phone] Aug, Cervical disc disease M50.90 [facility] [address] [facility] [id number] [address] [place] [phone] Aug, Sore throat J02.9 ; Canker s ore K12.0 and History of anemia Z86.2 [facility] [address] [facility] [id number] [address] [place] [phone] Jul, Cervical disc disease M50.90 [facility] [address] [facility] [id number] [address] [place] [phone] Jun, Cervical disc disease M50.90 [facility] [address] [facility] [id number] [address] [place] [phone] Jun, Cervical disc disease M50.90 [facility] [address] [facility] [id number] [address] [place] [phone] May, Cervical disc disease M50.90 [facility] [address] [facility] [id number] [address] [place] [phone] Apr, Cervical disc disease M50.90 [facility] [address] [facility] [id number] [address] [place] [phone] Apr, [facility] [address] [facility] [id number] [address] [place] [phone] Feb, Cervical disc disease M50.90 [facility] [address] [facility] [id number] [address] [place] [phone] January, Cervical disc disease M50.90 [facility] [address] [facility] [id number] [address] [place] [phone] Nov, [facility] [address] [facility] [id number] [address] [place] [phone] Nov, Cervical disc disease M50.90 [facility] [address] [facility] [id number] [address] [place] [phone] Nov, Acute cystitis with hematuri a N30.01 and Dysuria R30.0 [facility] [address] [facility] [id number] [address] [place] [phone] Oct, Cervical disc disease M50.90 and Acute non-recurrent frontal sinusitis J01.10 [facility] [address] [facility] [id number] [address] [place] [phone] Sep, Neck pain M54.2 [facility] [address] [place] [id number] [address] [place] [phone] Sep, [facility] [address] [place] [id number] [address] [place] [phone] Aug, Cervical disc disease M50.90 [facility] [address] [place] [id number] [address] [place] [phone] Jul, [facility] [address] [place] [id number] [address] [place] [phone] Jun, [facility] [address] [place] [id number] [address] [place] [phone] May, [facility] [address] [place] [id number] [address] [place] [phone] May, Screening for diabetes melli tus Z13.1 ; Chronic fatigue R53.82 and Edema, unspecified type R60.9 [facility] [address] [facility] [id number] [address] [place] [phone] Apr, Neck pain M54.2 [facility] [address] [place] [id number] [address] [place] [phone] Mar, [facility] [address] [id number] [address] [place] [phone] Mar, Neck pain M54.2 [facility] [address] [id number] [address] [place] [phone] Feb, Cervical disc disease M50.90 [facility] [address] [id number] [address] [place] [phone] Feb, Cervical disc disease M50.90 [facility] [address] [id number] [address] [place] [phone] January, [facility] [address] [id number] [address] [place] [phone] January, [facility] [address] [id number] [address] [place] [phone] January, Cervical disc disease M50.90 [facility] [address] [id number] [address] [place] [phone] January, [facility] [address] [id number] [address] [place] [phone] January, [facility] [address] [id number] [address] [place] [phone] Dec, Cervical disc disease M50.90 [facility] [address] [id number] [address] [place] [phone] Nov, Cervical disc disease M50.90 [facility] [address] [id number] [address] [place] [phone] Oct, Cervical disc disease M50.90 [facility] [address] [id number] [address] [place] [id number] Sep, Cervical disc disease M50.90 [facility] [address] [id number] [address] [place] [id number] Aug, Dental caries K02.9 and Enco unter for dental examination Z01.20 [facility] [address] [id number] [address] [place] [phone] Aug, [facility] [address] [id number] [address] [place] [phone] Aug, [facility] [address] [id number] [address] [place] [address] [id number] 08 Aug, 2015 Encounter for dental examina tion Z01.20 [facility] [address] [id number] [address] [place] [phone] Jul, [facility] [address] [id number] [address] [place] [phone] Jun, Sinusitis J32.9 and Cervical disc disease M50.90 [facility] [address] [id number] [address] [place] [phone] Jun, [facility] [address] [id number] [address] [place] [id number] 24 May, 2015 [facility] [address] [id number] [address] [place] [phone] May, [facility] [address] [id number] [address] [place] [id number] May, [facility] [address] [id number] [address] [place] [phone] May, [facility] [address] [id number] [address] [place] [id number] Apr, Cervical spondylosis without myelopathy 721.0 [facility] [address] [id number] [address] [place] [phone] Mar, [facility] [address] [id number] [address] [place] [phone] January, Cervical spondylosis without myelopathy 721.0 [facility] [address] [id number] [address] [place] [phone] Dec, [facility] [address] [id number] [address] [place] [id number] 14 Dec, 2014 [facility] [address] [id number] [address] [place] [address], [place] [address] Dec, [facility] [address] [id number] [address] [place] [address], [place] [address] Nov, [facility] [address] [id number] [address] [place] [address], [place] [address] Nov, [facility] [address] [id number] [address] [place] [address], [place] [address] Oct, [facility] [address] [id number] [address] [place] [address], [place] [address] Oct, [facility] [address] [id number] [address] [place] [address], [place] [id number] Oct, [facility] [address] [id number] [address] [place] [address], [place] [address] Oct, [facility] [address] [id number] [address] [place] [address], [place] [address] Oct, [facility] [address] [id number] [address] [place] [address], [place] [address] Oct, [facility] [address] [id number] [address] [place] [address], [place] [address] Oct, [facility] [address] [id number] [address] [place] [address], [place] [address] Oct, [facility] [address] [id number] [address] [place] [address], [place] [address] Oct, [facility] [address] [id number] [address] [place] [address], [place] [address] Oct, [facility] [address] [id number] [address] [place] [address], [place] [address] Sep, [facility] [address] [id number] [address] [place] [address], [place] [address] Sep, [facility] [address] [id number] [address] [place] [address], [place] [address] Sep, [facility] [address] [id number] [address] [place] [address], [place] [address] Sep, [facility] [address] [id number] [address] [place] [address], [place] [address] Sep, [facility] [address] [id number] [address] [place] [address], [place] [address] Sep, [facility] [address] [id number] [address] [place] [address], [place] [address] Sep, [facility] [address] [id number] [address] [place] [address], [place] [address] Sep, [facility] [address] [id number] [address] [place] [address], [place] [address] Sep, [facility] [address] [id number] [address] [place] [address], [place] [address] Aug, [facility] [address] [id number] [address] [place] [address], [place] [address] Aug, [facility] [address] [id number] [address] [place] [address], [place] [address] Aug, [facility] [address] [id number] [address] [place] [address], [place] [address] Aug, [facility] [address] [id number] [address] [place] [address], [place] [address] Jul, [facility] [address] [id number] [address] [place] [address], [place] [address] Jul, [facility] [address] [id number] [address] [place] [address], [place] [address] Jul, [facility] [address] [id number] [address] [place] [address], [place] [address] Jul, [facility] [address] [id number] [address] [place] [address] Jul, [facility] [address] [id number] [address] [place] [address], [place] [address] Jul, [facility] [address] [id number] [address] [place] [address] Jul, [facility] [address] [id number] [address] [place] [address], [place] [address] Jul, [facility] [address] [id number] [address] [place] [address], [place] [address] Jun, [facility] [address] [id number] [address] [place] [address], [place] [address] 27 Jun, 2014 [facility] [address] [id number] [address] [place] [address], [place] [address] Jun, [facility] [address] [id number] [address] [place] [address], [place] [address] 20 Jun, 2014 [facility] [address] [id number] [address] [place] [address], [place] [address] 16 Jun, 2014 [facility] [address] [id number] [address] [place] [address], [place] [address] 15 Jun, 2014 [facility] [address] [id number] [address] [place] [address] 15 Jun, 2014 [facility] [address] [id number] [address] [place] [address] 14 Jun, 2014 [facility] [address] [id number] [address] [place] [address] 14 Jun, 2014 [facility] [address] [id number] [address] [place] [address], [place] [address] 11 Jun, 2014 [facility] [address] [id number] [address] [place] [address], [place] [address] 11 Jun, 2014 [facility] [address] [id number] [address] [place] [address], [place] [address] 24 May, 2014 [facility] [address] [id number] [facility] [place] [address] 24 May, 2014 [facility] [address] [id number] [facility] [place] [address] 08 May, 2014 [facility] [address] [id number] [facility] [place] [address] May, [facility] [address] [id number] [address] [place] [address], [place] [address] May, [facility] [address] [id number] [facility] [place] [address] Apr, [facility] [address] [id number] [address] [place] [address], [place] [address] Apr, [facility] [address] [id number] [address] [place] [address], [place] [address] Apr, [facility] [address] [id number] [address] [place] [address], [place] [address] Apr, [facility] [address] [id number] [address] [place] [address], [place] [address] Apr, [facility] [address] [id number] [address] [place] [address], [place] [address] Apr, [facility] [address] [id number] [address] [place] [address], [place] [address] Mar, [facility] [address] [id number] [address] [place] [address], [place] [address] Mar, [facility] [address] [id number] [address] [place] [address], [place] [address] Mar, [facility] [address] [address] [id number] [address] [place] [address], [place] [address] Mar, [facility] [address] [id number] [address] [place] [address], [place] [address] Mar, [facility] [address] [id number] [address] [place] [address], [place] [address] Mar, [facility] [address] [id number] [facility] [place] [address] Feb, [facility] [address] [id number] [address] [place] [address], [place] [address] Feb, [facility] [address] [id number] [address] [place] [address], [place] [address] Feb, [facility] [address] [id number] [address] [place] [address], [place] [address] Feb, [facility] [address] [id number] [address] [place] [address], [place] [address] Feb, [facility] [address] [id number] [address] [place] [address], [place] [address] Feb, [facility] [address] [id number] [address] [place] [address], [place] [address] Feb, [facility] [address] [id number] [address] [place] [address], [place] [address] Feb, [facility] [address] [id number] [address] [place] [address], [place] [address] January, [facility] [address] [id number] [address] [place] [address], [place] [address] January, [facility] [address] [id number] [address] [place] [address], [place] [address] January, [facility] [address] [id number] [address] [place] [address], [place] [address] January, [facility] [address] [id number] [address] [place] [address], [place] [address] January, [facility] [address] [id number] [address] [place] [address], [place] [address] January, [facility] [address] [id number] [address] [place] [address], [place] [address] January, [facility] [address] [id number] [facility] [place] [address] January, [facility] [address] [id number] [address] [place] [address], [place] [address] Dec, [facility] [address] [id number] [address] [place] [address], [place] [address] Dec, [facility] [address] [id number] [address] [place] [address], [place] [address] Dec, [facility] [address] [id number] [address] [place] [address], [place] [address] Dec, [facility] [address] [id number] [address] [place] [address], [place] [address] Dec, [facility] [address] [id number] [address] [place] [address], [place] [address] Dec, [facility] [address] [id number] [address] [place] [address], [place] [address] Nov, [facility] [address] [id number] [address] [place] [address], [place] [address] Nov, [facility] [address] [id number] [address] [place] [address], [place] [address] Nov, [facility] [address] [id number] [address] [place] [address], [place] [address] Nov, [facility] [address] [id number] [address] [place] [address], [place] [address] Nov, [facility] [address] [id number] [address] [place] [address], [place] [address] Nov, [facility] [address] [id number] [address] [place] [address], [place] [address] Nov, [facility] [address] [id number] [address] [place] [address], [place] [address] Nov, [facility] [address] [id number] [address] [place] [address], [place] [address] Oct, [facility] [address] [id number] [address] [place] [address], [place] [address] Oct, [facility] [address] [id number] [address] [place] [address], [place] [address] Sep, [facility] [address] [id number] [address] [place] [address], [place] [address] Sep, [facility] [address] [id number] [address] [place] [address], [place] [address] Sep, [facility] [address] [id number] [address] [place] [address], [place] [address] Sep, [facility] [address] [id number] [address] [place] [address], [place] [address] Aug, [facility] [address] [id number] [address] [place] [address], [place] [address] Aug, [facility] [address] [id number] [address] [place] [address], [place] [address] Aug, [facility] [address] [id number] [address] [place] [address], [place] [address] Aug, [facility] [address] [id number] [address] [place] [address], [place] [address] Jul, [facility] [address] [id number] [address] [place] [address], [place] [address] Jul, [facility] [address] [id number] [address] [place] [address], [place] [address] Jul, [facility] [address] [id number] [address] [place] [address], [place] [address] Jul, [facility] [address] [id number] [address] [place] [address], [place] [address] Jul, [facility] [address] [id number] [address] [place] [address], [place] [address] Jul, [facility] [address] [id number] [address] [place] [address] Jul, [facility] [address] [id number] [address] [place] [address], [place] [address] Jul, [facility] [address] [id number] [address] [place] [address] Jul, [facility] [address] [id number] [address] [place] [address], [place] [address] Jul, [facility] [address] [id number] [address] [place] [address] Jul, [facility] [address] [id number] [address] [place] [address], [place] [address] Jul, [facility] [address] [id number] [address] [place] [address], [place] [address] Jun, [facility] [address] [id number] [address] [place] [address] Jun, [facility] [address] [id number] [address] [place] [address] Jun, [facility] [address] [id number] [address] [place] [address] Jun, [facility] [address] [id number] [address] [place] [address] 16 Jun, 2013 [facility] [address] [id number] [address] [place] [address] 14 Jun, 2013 [facility] [address] [id number] [address] [place] [address] 14 Jun, 2013 [facility] [address] [id number] [address] [place] [address] 02 Jun, 2013 [facility] [address] [id number] [address] [place] [address] 15 May, 2013 [facility] [address] [id number] [address] [place] [address] 05 May, 2013 [facility] [address] [id number] [address] [place] [address], [place] [address] May, [facility] [address] [id number] [address] [place] [address], [place] [address] Apr, [facility] [address] [id number] [address] [place] [address], [place] [address] Apr, [facility] [address] [id number] [address] [place] [address], [place] [address] Mar, [facility] [address] [id number] [address] [place] [address], [place] [address] Mar, [facility] [address] [id number] [address] [place] [address], [place] [address] Feb, [facility] [address] [id number] [address] [place] [address], [place] [address] January, [facility] [address] [id number] [address] [place] [address], [place] [address] January, [facility] [address] [id number] [address] [place] [address], [place] [address] January, [facility] [address] [id number] [address] [place] [address], [place] [address] January, [facility] [address] [id number] [address] [place] [address], [place] [address] January, [facility] [address] [id number] [address] [place] [address], [place] [address] Dec, [facility] [address] [id number] [address] [place] [address], [place] [address] Dec, [facility] [address] [id number] [address] [place] [address], [place] [address] Dec, [facility] [address] [id number] [address] [place] [address], [place] [address] Nov, [facility] [address] [id number] [address] [place] [address], [place] [address] Oct, [facility] [address] [id number] [address] [place] [address], [place] [address] 18 Oct, 2012 [facility] [address] [id number] [address] [place] [address], [place] [address] 15 Oct, 2012 [facility] [address] [id number] [address] [place] [address], [place] [address] 18 Sep, 2012 [facility] [address] [id number] [address] [place] [address], [place] [address] 16 Sep, 2012 [facility] [address] [id number] [address] [place] [address], [place] [address] 14 Aug, 2012 [facility] [address] [id number] [address] [place] [address], [place] [address] 14 Aug, 2012 [facility] [address] [id number] [address] [place] [address], [place] [address] Aug, [facility] [address] [id number] [address] [place] [address], [place] [address] Aug, [facility] [address] [id number] [address] [place] [address], [place] [address] Jul, [facility] [address] [id number] [address] [place] [address], [place] [address] Jul, [facility] [address] [id number] [address] [place] [address], [place] [address] Jul, [facility] [address] [id number] [address] [place] [address] Jul, [facility] [address] [id number] [address] [place] [address], [place] [address] Jul, [facility] [address] [id number] [address] [place] [address], [place] [address] 15 Jun, 2012 [facility] [address] [id number] [address] [place] [address], [place] [address] 15 Jun, 2012 [facility] [address] [id number] [address] [place] [address], [place] [address] 10 Jun, 2012 [facility] [address] [id number] [address] [place] [address], [place] [address] 10 Jun, 2012 [facility] [address] [id number] [address] [place] [address], [place] [address] 10 May, 2012 [facility] [address] [id number] [address] [place] [address], [place] [address] Apr, [facility] [address] [id number] [address] [place] [address], [place] [address] Apr, [facility] [address] [id number] [address] [place] [address], [place] [address] Apr, [facility] [address] [id number] [address] [place] [address], [place] [address] Apr, [facility] [address] [id number] [address] [place] [address], [place] [address] January, [facility] [address] [id number] [address] [place] [address], [place] [address] January, [facility] [address] [id number] [address] [place] [address], [place] [address] Dec, [facility] [address] [id number] [address] [place] [address], [place] [address] Dec, [facility] [address] [id number] [address] [place] [address], [place] [address] Nov, [facility] [address] [id number] [address] [place] [address], [place] [address] Nov, [facility] [address] [id number] [address] [place] [address], [place] [address] Nov, [facility] [address] [id number] [address] [place] [address], [place] [address] Nov, [facility] [address] [id number] [address] [place] [address], [place] [address] Oct, [facility] [address] [id number] [address] [place] [address], [place] [address] Oct, [facility] [address] [id number] [address] [place] [address], [place] [address] Oct, [facility] [address] [id number] [address] [place] [address], [place] [address] Sep, [facility] [address] [id number] [address] [place] [address], [place] [address] Sep, [facility] [address] [id number] [address] [place] [address], [place] [address] Aug, [facility] [address] [id number] [address] [place] [address], [place] [address] Aug, [facility] [address] [id number] [address] [place] [address], [place] [address] Jul, [facility] [address] [id number] [address] [place] [address] Jul, [facility] [address] [id number] [address] [place] [address], [place] [address] Jul, [facility] [address] [id number] [address] [place] [address] Jun, [facility] [address] [id number] [address] [place] [address] Jun, [facility] [address] [id number] [address] [place] [address] Jun, [facility] [address] [id number] [address] [place] [address], [place] [address] Jun, [facility] [address] [id number] [address] [place] [address] Jun, [facility] [address] [id number] [address] [place] [address] Jun, [facility] [address] [id number] [address] [place] [address] 29 Aug, 2010 [facility] [address] [id number] [address] [place] [address], [place] [address] Aug, [facility] [address] [id number] [address] [place] [address] 08 Aug, 2010 [facility] [address] [id number] [address] [place] [address], [place] [address] 29 Jul, 2010 [facility] [address] [id number] [address] [place] [address], [place] [address] 27 Jul, 2010 [facility] [address] [id number] [address] [place] [address], [place] [address] Jul, [facility] [address] [id number] [address] [place] [address], [place] [address] 15 Jul, 2010 [facility] [address] [id number] [address] [place] [address], [place] [address] Jul, [facility] [address] [id number] [address] [place] [address], [place] [address] Jul, [facility] [address] [id number] [address] [place] [address], [place] [address] Jun, [facility] [address] [id number] [address] [place] [address], [place] [address] Apr, [facility] [address] [id number] [address] [place] [address] Feb, [facility] [address] [id number] [address] [place] [address] 10 Oct, 2009 [facility] [address] [id number] [address] [place] [address], [place] [address] 13 Sep, 2009 [facility] [address] [id number] [address] [place] [address], [place] [address] 18 Aug, 2009 [facility] [address] [id number] [address] [place] [address] Aug, [facility] [address] [facility] [id number] [address] [place] [address] Aug, [facility] [address] [facility] [id number] [address] [place] [id number] Jul, [facility] [address] [facility] [id number] [address] [place] [address] Jun, IMMUNIZATIONS No Known Immunizations SOCIAL HISTORY Never Assessed REASON FOR VISIT PLAN OF CARE VITAL SIGNS MEDICATIONS Unknown Medications RESULTS No Results PROCEDURES No Known [...]
--- OUTSIDE RECORDS SUMMARY | 2020-02-22 17:09 | XMS REPORT ---
Author Author Marion CORREA Organization [facility] Address [address] [place] [address] Care Team Providers Care Enrollment Services Vice President Name Role Phone SHABNAM CORREA Unavailable PROBLEMS Type Condition ICD9-CM Code VJY09-AC Code Onset Dates Condition S tatus SNOMED Code Problem Acquired hypothyroidism E03.9 Active 964789210 Problem Gastro-esophageal reflux disease without esophagitis K21.9 Active 905463527 Problem Cervical disc disease M50.90 Active 788908213 Problem Dyspepsia R10.13 Active 153986609 Problem Migraine without aura and without status migrain osus, not intractable G43.009 Active 330102374 ALLERGIES No Information ENCOUNTERS Encounter Location Date Diagnosis [place] [id number] [place] [phone] January, [place] [address] [place] [id number] [address] [place] [phone] Dec, [place] [address] [place] [id number] [address] [place] [address] Nov, [place] [address] [place] [id number] [address] [place] [phone] Nov, Cervical disc disease M50.90 [facility] [address] [facility] [id number] [address] [place] [address] Oct, [place] [address] [facility] [id number] [address] [place] [address] Oct, Cervical disc disease M50.90 [facility] [address] [place] [id number] [address] [place] [address] Oct, Contusion of left knee, init ial encounter S80.02XA [place] [address] [place] [id number] [address] [place] [phone] 13 Oct, 2019 Cervical disc disease M50.90 [facility] [address] [id number] [address] [place] [address] 12 Oct, 2019 [facility] [address] [id number] [address] [place] [address] 11 Oct, 2019 Acute pain of left knee M25. 562 [facility] [address] [id number] [address] [place] [address] 31 Sep, 2019 [facility] [address] [id number] [address] [place] [address] 17 Sep, 2019 Cervical disc disease M50.90 [facility] [address] [id number] [address] [place] [address] Sep, Cervical disc disease M50.90 [facility] [address] [id number] [address] [place] [address] Aug, Cervical disc disease M50.90 [facility] [address] [id number] [address] [place] [address] Aug, [facility] [address] [id number] [address] [place] [address] Jul, Cervical disc disease M50.90 [facility] [address] [id number] [address] [place] [address] Jun, Cervical disc disease M50.90 [facility] [address] [id number] [address] [place] [address] May, [facility] [address] [id number] [address] [place] [address] 25 May, 2019 Cervical disc disease M50.90 [facility] [address] [id number] [address] [place] [address] 19 May, 2019 Acute cystitis with hematuri a N30.01 and UTI symptoms R39.9 [facility] [address] [id number] [address] [place] [address] May, [facility] [address] [id number] [address] [place] [address] Apr, Cervical disc disease M50.90 [facility] [address] [id number] [address] [place] [address] Apr, Cervical disc disease M50.90 ; Gastro-esophageal reflux disease without esophagitis K21.9 and Sinus headache R51 [facility] [address] [id number] [address] [place] [address] Apr, [facility] [address] [id number] [address] [place] [address] Apr, Cervical disc disease M50.90 [facility] [address] [facility] [id number] [address] [place] [address] Mar, [facility] [address] [facility] [id number] [address] [place] [address] Mar, Cervical disc disease M50.90 [facility] [address] [facility] [id number] [address] [place] [address] Feb, [address] [address] Feb, Cervical disc disease M50.[address] [place] [address] January, [facility] [address] [facility] [id number] [address] [place] [address] January, Cervical disc disease M50.90 [facility] [address] [facility] [id number] [address] [place] [address] January, Cervical disc disease M50.90 [facility] [address] [facility] [id number] [address] [place] [address] Dec, Cervical disc disease M50.90 [facility] [address] [facility] [id number] [address] [place] [address] Dec, Cervical disc disease M50.90 [facility] [address] [facility] [id number] [address] [place] [address] Dec, Cervical disc disease M50.90 [facility] [address] [facility] [id number] [address] [place] [address] Dec, Cervical disc disease M50.90 ; Acquired hypothyroidism E03.9 and Migraine without aura and without status migrainosus, not intractable G43.009 [facility] [address] [facility] [id number] [address] [place] [address] Nov, [facility] [address] [facility] [id number] [address] [place] [address] Nov, Cervical disc disease M50.90 [facility] [address] [facility] [id number] [address] [place] [address] Oct, Cervical disc disease M50.90 [facility] [address] [place] [id number] [address] [place] [address] Sep, [facility] [address] [facility] [id number] [address] [place] [address] Sep, Cervical disc disease M50.90 [facility] [address] [facility] [id number] [address] [place] [address] Aug, Cervical disc disease M50.90 [facility] [address] [place] [id number] [address] [place] [address] Jul, Cervical disc disease M50.90 [facility] [address] [facility] [id number] [address] [place] [address] Jun, Acute recurrent pansinusitis J01.41 and Cervical disc disease M50.90 [facility] [address] [facility] [id number] [address] [place] [address] Jun, Cervical disc disease M50.90 [facility] [address] [facility] [id number] [address] [place] [address] May, Cervical disc disease M50.90 [facility] [address] [id number] [address] [place] [address] Apr, Cervical disc disease M50.90 [facility] [address] [id number] [address] [place] [address] Mar, Cervical disc disease M50.90 [facility] [address] [id number] [address] [place] [address] Mar, [facility] [address] [id number] [address] [place] [address] Mar, Cervical disc disease M50.90 [facility] [address] [id number] [address] [place] [address] Feb, Cervical disc disease M50.90 [facility] [address] [id number] [address] [place] [address] January, Cervical disc disease M50.90 [facility] [address] [id number] [address] [place] [address] Dec, [facility] [address] [id number] [address] [place] [address] Dec, Cervical disc disease M50.90 [facility] [address] [id number] [address] [place] [address] Nov, Cervical disc disease M50.90 [facility] [address] [id number] [address] [place] [address] Nov, Cervical disc disease M50.90 [facility] [address] [id number] [address] [place] [address] Oct, Cervical disc disease M50.90 [facility] [address] [id number] [address] [place] [address] Oct, Cervical disc disease M50.90 and Acute non-recurrent maxillary sinusitis J01.00 [facility] [address] [id number] [address] [place] [address] Sep, Cervical disc disease M50.90 [facility] [address] [facility] [id number] [address] [place] [address] Sep, [facility] [address] [facility] [id number] [address] [place] [address] Sep, Fatigue, unspecified type R5 3.83 and Cough R05 [facility] [address] [facility] [id number] [address] [place] [address] Aug, Cervical disc disease M50.90 [facility] [address] [facility] [id number] [address] [place] [address] Aug, Sore throat J02.9 ; Canker s ore K12.0 and History of anemia Z86.2 [facility] [address] [facility] [id number] [address] [place] [address] Jul, Cervical disc disease M50.90 [facility] [address] [facility] [id number] [address] [place] [address] Jun, Cervical disc disease M50.90 [facility] [address] [facility] [id number] [address] [place] [address] Jun, Cervical disc disease M50.90 [facility] [address] [facility] [id number] [address] [place] [address] May, Cervical disc disease M50.90 [facility] [address] [facility] [id number] [address] [place] [address] Apr, Cervical disc disease M50.90 [facility] [address] [facility] [id number] [address] [place] [address] Apr, [facility] [address] [facility] [id number] [address] [place] [address] Feb, Cervical disc disease M50.90 [facility] [address] [facility] [id number] [address] [place] [address] January, Cervical disc disease M50.90 [facility] [address] [facility] [id number] [address] [place] [address] Nov, [facility] [address] [facility] [id number] [address] [place] [address] Nov, Cervical disc disease M50.90 [facility] [address] [facility] [id number] [address] [place] [address] Nov, Acute cystitis with hematuri a N30.01 and Dysuria R30.0 [facility] [address] [facility] [id number] [address] [place] [address] Oct, Cervical disc disease M50.90 and Acute non-recurrent frontal sinusitis J01.10 [facility] [address] [facility] [id number] [address] [place] [address] Sep, Neck pain M54.2 [facility] [address] [place] [id number] [address] [place] [address] Sep, [facility] [address] [place] [id number] [address] [place] [address] Aug, Cervical disc disease M50.90 [facility] [address] [place] [id number] [address] [place] [address] Jul, [facility] [address] [place] [id number] [address] [place] [address] Jun, [facility] [address] [place] [id number] [address] [place] [address] May, [facility] [address] [place] [id number] [address] [place] [address] May, Screening for diabetes melli tus Z13.1 ; Chronic fatigue R53.82 and Edema, unspecified type R60.9 [facility] [address] [facility] [id number] [address] [place] [address] Apr, Neck pain M54.2 [facility] [address] [place] [id number] [address] [place] [address] Mar, [facility] [address] [id number] [address] [place] [address] Mar, Neck pain M54.2 [facility] [address] [id number] [address] [place] [address] Feb, Cervical disc disease M50.90 [facility] [address] [id number] [address] [place] [address] Feb, Cervical disc disease M50.90 [facility] [address] [id number] [address] [place] [address] January, [facility] [address] [id number] [address] [place] [address] January, [facility] [address] [id number] [address] [place] [address] January, Cervical disc disease M50.90 [facility] [address] [id number] [address] [place] [address] January, [facility] [address] [id number] [address] [place] [address] January, [facility] [address] [id number] [address] [place] [address] Dec, Cervical disc disease M50.90 [facility] [address] [id number] [address] [place] [address] Nov, Cervical disc disease M50.90 [facility] [address] [id number] [address] [place] [address] Oct, Cervical disc disease M50.90 [facility] [address] [id number] [address] [place] [address] Sep, Cervical disc disease M50.90 [facility] [address] [id number] [address] [place] [id number] Aug, Dental caries K02.9 and Enco unter for dental examination Z01.20 [facility] [address] [id number] [address] [place] [address] Aug, [facility] [address] [id number] [address] [place] [address] Aug, [facility] [address] [id number] [address] [place] [id number] 08 Aug, 2015 Encounter for dental examina tion Z01.20 [facility] [address] [id number] [address] [place] [address] Jul, [facility] [address] [id number] [address] [place] [address] Jun, Sinusitis J32.9 and Cervical disc disease M50.90 [facility] [address] [id number] [address] [place] [address] Jun, [facility] [address] [id number] [address] [place] [address] 24 May, 2015 [facility] [address] [id number] [address] [place] [address] May, [facility] [address] [id number] [address] [place] [address] May, [facility] [address] [id number] [address] [place] [address] May, [facility] [address] [id number] [address] [place] [address] Apr, Cervical spondylosis without myelopathy 721.0 [facility] [address] [id number] [address] [place] [address] Mar, [facility] [address] [id number] [address] [place] [address] January, Cervical spondylosis without myelopathy 721.0 [facility] [address] [id number] [address] [place] [address] Dec, [facility] [address] [id number] [address] [place] [phone] 14 Dec, 2014 [facility] [address] [id number] [address] [place] [address], [place] [address] Dec, [facility] [address] [id number] [address] [place] [address], [place] [address] Nov, [facility] [address] [id number] [address] [place] [address], [place] [address] Nov, [facility] [address] [id number] [address] [place] [address], [place] [address] Oct, [facility] [address] [id number] [address] [place] [address], [place] [address] Oct, [facility] [address] [id number] [address] [place] [address], [place] [address] Oct, [facility] [address] [id number] [address] [place] [address], [place] [address] Oct, [facility] [address] [id number] [address] [place] [address], [place] [address] Oct, [facility] [address] [id number] [address] [place] [address], [place] [address] Oct, [facility] [address] [id number] [address] [place] [address], [place] [address] Oct, [facility] [address] [id number] [address] [place] [address], [place] [address] Oct, [facility] [address] [id number] [address] [place] [address], [place] [address] Oct, [facility] [address] [id number] [address] [place] [address], [place] [address] Oct, [facility] [address] [id number] [address] [place] [address], [place] [address] Sep, [facility] [address] [id number] [address] [place] [address], [place] [address] Sep, [facility] [address] [id number] [address] [place] [address], [place] [address] Sep, [facility] [address] [id number] [address] [place] [address], [place] [address] Sep, [facility] [address] [id number] [address] [place] [address], [place] [address] Sep, [facility] [address] [id number] [address] [place] [address], [place] [address] Sep, [facility] [address] [id number] [address] [place] [address], [place] [address] Sep, [facility] [address] [id number] [address] [place] [address], [place] [address] Sep, [facility] [address] [id number] [address] [place] [address], [place] [address] Sep, [facility] [address] [id number] [address] [place] [address], [place] [address] Aug, [facility] [address] [id number] [address] [place] [address], [place] [address] Aug, [facility] [address] [id number] [address] [place] [address], [place] [address] Aug, [facility] [address] [id number] [address] [place] [address], [place] [address] Aug, [facility] [address] [id number] [address] [place] [address], [place] [address] Jul, [facility] [address] [id number] [address] [place] [address], [place] [address] Jul, [facility] [address] [id number] [address] [place] [address], [place] [address] Jul, [facility] [address] [id number] [address] [place] [address], [place] [address] Jul, [facility] [address] [id number] [address] [place] [address] Jul, [facility] [address] [id number] [address] [place] [address], [place] [address] Jul, [facility] [address] [id number] [address] [place] [address] Jul, [facility] [address] [id number] [address] [place] [address], [place] [address] Jul, [facility] [address] [id number] [address] [place] [address], [place] [address] Jun, [facility] [address] [id number] [address] [place] [address], [place] [address] 27 Jun, 2014 [facility] [address] [id number] [address] [place] [address], [place] [address] Jun, [facility] [address] [id number] [address] [place] [address], [place] [address] 20 Jun, 2014 [facility] [address] [id number] [address] [place] [address], [place] [address] 16 Jun, 2014 [facility] [address] [id number] [address] [place] [address], [place] [address] 15 Jun, 2014 [facility] [address] [id number] [address] [place] [address] 15 Jun, 2014 [facility] [address] [id number] [address] [place] [address] 14 Jun, 2014 [facility] [address] [id number] [address] [place] [address] 14 Jun, 2014 [facility] [address] [id number] [address] [place] [address], [place] [address] 11 Jun, 2014 [facility] [address] [id number] [address] [place] [address], [place] [address] 11 Jun, 2014 [facility] [address] [id number] [address] [place] [address], [place] [address] 24 May, 2014 [facility] [address] [id number] [facility] [place] [address] 24 May, 2014 [facility] [address] [id number] [facility] [place] [address] 08 May, 2014 [facility] [address] [id number] [facility] [place] [address] May, [facility] [address] [id number] [address] [place] [address], [place] [address] May, [facility] [address] [id number] [facility] [place] [address] Apr, [facility] [address] [id number] [address] [place] [address], [place] [address] Apr, [facility] [address] [id number] [address] [place] [address], [place] [address] Apr, [facility] [address] [id number] [address] [place] [address], [place] [address] Apr, [facility] [address] [id number] [address] [place] [address], [place] [address] Apr, [facility] [address] [id number] [address] [place] [address], [place] [address] Apr, [facility] [address] [id number] [address] [place] [address], [place] [address] Mar, [facility] [address] [id number] [address] [place] [address], [place] [address] Mar, [facility] [address] [id number] [address] [place] [address], [place] [address] Mar, [facility] [address] [id number] [address] [place] [address], [place] [address] Mar, [facility] [address] [id number] [address] [place] [address], [place] [address] Mar, [facility] [address] [id number] [address] [place] [address], [place] [address] Mar, [facility] [address] [id number] [facility] [place] [address] Feb, [facility] [address] [id number] [address] [place] [address], [place] [address] Feb, [facility] [address] [id number] [address] [place] [address], [place] [address] Feb, [facility] [address] [id number] [address] [place] [address], [place] [address] Feb, [facility] [address] [id number] [address] [place] [address], [place] [address] Feb, [facility] [address] [id number] [address] [place] [address], [place] [address] Feb, [facility] [address] [id number] [address] [place] [address], [place] [address] Feb, [facility] [address] [id number] [address] [place] [address], [place] [address] Feb, [facility] [address] [id number] [address] [place] [address], [place] [address] January, [facility] [address] [id number] [address] [place] [address], [place] [address] January, [facility] [address] [id number] [address] [place] [address], [place] [address] January, [facility] [address] [id number] [address] [place] [address], [place] [address] January, [facility] [address] [id number] [address] [place] [address], [place] [address] January, [facility] [address] [id number] [address] [place] [address], [place] [address] January, [facility] [address] [id number] [address] [place] [address], [place] [address] January, [facility] [address] [id number] [facility] [place] [address] January, [facility] [address] [id number] [address] [place] [address], [place] [address] Dec, [facility] [address] [id number] [address] [place] [address], [place] [address] Dec, [facility] [address] [id number] [address] [place] [address], [place] [address] Dec, [facility] [address] [id number] [address] [place] [address], [place] [address] Dec, [facility] [address] [id number] [address] [place] [address], [place] [address] Dec, [facility] [address] [id number] [address] [place] [address], [place] [address] Dec, [facility] [address] [id number] [address] [place] [address], [place] [address] Nov, [facility] [address] [id number] [address] [place] [address], [place] [address] Nov, [facility] [address] [id number] [address] [place] [address], [place] [address] Nov, [facility] [address] [id number] [address] [place] [address], [place] [address] Nov, [facility] [address] [id number] [address] [place] [address], [place] [address] Nov, [facility] [address] [id number] [address] [place] [address], [place] [address] Nov, [facility] [address] [id number] [address] [place] [address], [place] [address] Nov, [facility] [address] [id number] [address] [place] [address], [place] [address] Nov, [facility] [address] [id number] [address] [place] [address], [place] [address] Oct, [facility] [address] [id number] [address] [place] [address], [place] [address] Oct, [facility] [address] [id number] [address] [place] [address], [place] [address] Sep, [facility] [address] [id number] [address] [place] [address], [place] [address] Sep, [facility] [address] [id number] [address] [place] [address], [place] [address] Sep, [facility] [address] [id number] [address] [place] [address], [place] [address] Sep, [facility] [address] [id number] [address] [place] [address], [place] [address] Aug, [facility] [address] [id number] [address] [place] [address], [place] [address] Aug, [facility] [address] [id number] [address] [place] [address], [place] [address] Aug, [facility] [address] [id number] [address] [place] [address], [place] [address] Aug, [facility] [address] [id number] [address] [place] [address], [place] [address] Jul, [facility] [address] [id number] [address] [place] [address], [place] [address] Jul, [facility] [address] [id number] [address] [place] [address], [place] [address] Jul, [facility] [address] [id number] [address] [place] [address], [place] [address] Jul, [facility] [address] [id number] [address] [place] [address], [place] [address] Jul, [facility] [address] [id number] [address] [place] [address], [place] [address] Jul, [facility] [address] [id number] [address] [place] [address] Jul, [facility] [address] [id number] [address] [place] [address], [place] [address] Jul, [facility] [address] [id number] [address] [place] [address] Jul, [facility] [address] [id number] [address] [place] [address], [place] [address] Jul, [facility] [address] [id number] [address] [place] [address] Jul, [facility] [address] [id number] [address] [place] [address], [place] [address] Jul, [facility] [address] [id number] [address] [place] [address], [place] [address] Jun, [facility] [address] [id number] [address] [place] [address] Jun, [facility] [address] [id number] [address] [place] [address] Jun, [facility] [address] [id number] [address] [place] [address] Jun, [facility] [address] [id number] [address] [place] [address] 16 Jun, 2013 [facility] [address] [id number] [address] [place] [address] 14 Jun, 2013 [facility] [address] [id number] [address] [place] [address] 14 Jun, 2013 [facility] [address] [id number] [address] [place] [address] 02 Jun, 2013 [facility] [address] [id number] [address] [place] [address] 15 May, 2013 [facility] [address] [id number] [address] [place] [id number] 05 May, 2013 [facility] [address] [id number] [address] [place] [address], [place] [address] May, [facility] [address] [id number] [address] [place] [address], [place] [address] Apr, [facility] [address] [id number] [address] [place] [address], [place] [address] Apr, [facility] [address] [id number] [address] [place] [address], [place] [address] Mar, [facility] [address] [id number] [address] [place] [address], [place] [address] Mar, [facility] [address] [id number] [address] [place] [address], [place] [address] Feb, [facility] [address] [id number] [address] [place] [address], [place] [address] January, [facility] [address] [id number] [address] [place] [address], [place] [address] January, [facility] [address] [id number] [address] [place] [address], [place] [address] January, [facility] [address] [id number] [address] [place] [address], [place] [address] January, [facility] [address] [id number] [address] [place] [address], [place] [address] January, [facility] [address] [id number] [address] [place] [address], [place] [address] Dec, [facility] [address] [id number] [address] [place] [address], [place] [address] Dec, [facility] [address] [id number] [address] [place] [address], [place] [address] Dec, [facility] [address] [id number] [address] [place] [address], [place] [address] Nov, [facility] [address] [id number] [address] [place] [address], [place] [address] Oct, [facility] [address] [id number] [address] [place] [address], [place] [address] 18 Oct, 2012 [facility] [address] [id number] [address] [place] [address], [place] [address] 15 Oct, 2012 [facility] [address] [id number] [address] [place] [address], [place] [address] 18 Sep, 2012 [facility] [address] [id number] [address] [place] [address], [place] [address] 16 Sep, 2012 [facility] [address] [id number] [address] [place] [address], [place] [address] 14 Aug, 2012 [facility] [address] [id number] [address] [place] [address], [place] [address] 14 Aug, 2012 [facility] [address] [id number] [address] [place] [address], [place] [address] Aug, [facility] [address] [id number] [address] [place] [address], [place] [address] Aug, [facility] [address] [id number] [address] [place] [address], [place] [address] Jul, [facility] [address] [id number] [address] [place] [address], [place] [address] Jul, [facility] [address] [id number] [address] [place] [address], [place] [address] Jul, [facility] [address] [id number] [address] [place] [address] Jul, [facility] [address] [id number] [address] [place] [address], [place] [address] Jul, [facility] [address] [id number] [address] [place] [address], [place] [address] 15 Jun, 2012 [facility] [address] [id number] [address] [place] [address], [place] [address] 15 Jun, 2012 [facility] [address] [id number] [address] [place] [address], [place] [address] 10 Jun, 2012 [facility] [address] [id number] [address] [place] [address], [place] [address] 10 Jun, 2012 [facility] [address] [id number] [address] [place] [address], [place] [address] 10 May, 2012 [facility] [address] [id number] [address] [place] [address], [place] [address] Apr, [facility] [address] [id number] [address] [place] [address], [place] [address] Apr, [facility] [address] [id number] [address] [place] [address], [place] [address] Apr, [facility] [address] [id number] [address] [place] [address], [place] [address] Apr, [facility] [address] [id number] [address] [place] [address], [place] [address] January, [facility] [address] [id number] [address] [place] [address], [place] [address] January, [facility] [address] [id number] [address] [place] [address], [place] [address] Dec, [facility] [address] [id number] [address] [place] [address], [place] [address] Dec, [facility] [address] [id number] [address] [place] [address], [place] [address] Nov, [facility] [address] [id number] [address] [place] [address], [place] [address] Nov, [facility] [address] [id number] [address] [place] [address], [place] [address] Nov, [facility] [address] [id number] [address] [place] [address], [place] [address] Nov, [facility] [address] [id number] [address] [place] [address], [place] [address] Oct, [facility] [address] [id number] [address] [place] [address], [place] [address] Oct, [facility] [address] [id number] [address] [place] [address], [place] [address] Oct, [facility] [address] [id number] [address] [place] [address], [place] [address] Sep, [facility] [address] [id number] [address] [place] [address], [place] [address] Sep, [facility] [address] [id number] [address] [place] [address], [place] [address] Aug, [facility] [address] [id number] [address] [place] [address], [place] [address] Aug, [facility] [address] [id number] [address] [place] [address], [place] [address] Jul, [facility] [address] [id number] [address] [place] [address] Jul, [facility] [address] [id number] [address] [place] [address], [place] [address] Jul, [facility] [address] [id number] [address] [place] [address] Jun, [facility] [address] [id number] [address] [place] [address] Jun, [facility] [address] [id number] [address] [place] [address] Jun, [facility] [address] [id number] [address] [place] [address], [place] [address] Jun, [facility] [address] [id number] [address] [place] [address] Jun, [facility] [address] [id number] [address] [place] [address] Jun, [facility] [address] [id number] [address] [place] [address] 29 Aug, 2010 [facility] [address] [id number] [address] [place] [address], [place] [address] Aug, [facility] [address] [id number] [address] [place] [address] 08 Aug, 2010 [facility] [address] [id number] [address] [place] [address], [place] [address] 29 Jul, 2010 [facility] [address] [id number] [address] [place] [address], [place] [address] 27 Jul, 2010 [facility] [address] [id number] [address] [place] [address], [place] [address] Jul, [facility] [address] [id number] [address] [place] [address], [place] [address] 15 Jul, 2010 [facility] [address] [id number] [address] [place] [address], [place] [address] Jul, [facility] [address] [id number] [address] [place] [address], [place] [address] Jul, [facility] [address] [id number] [address] [place] [address], [place] [address] Jun, [facility] [address] [id number] [address] [place] [address], [place] [address] Apr, [facility] [address] [id number] [address] [place] [address] Feb, [facility] [address] [id number] [address] [place] [address] 10 Oct, 2009 [facility] [address] [id number] [address] [place] [address], [place] [address] 13 Sep, 2009 [facility] [address] [id number] [address] [place] [address], [place] [address] 18 Aug, 2009 [facility] [address] [id number] [address] [place] [address] Aug, [facility] [address] [facility] [id number] [address] [place] [address] Aug, [facility] [address] [facility] [id number] [address] [place] [address] Jul, [facility] [address] [facility] [id number] [address] [place] [address] Jun, IMMUNIZATIONS No Known Immunizations SOCIAL HISTORY [...]
--- OUTSIDE RECORDS SUMMARY | 2020-02-22 17:09 | XMS REPORT ---
Author Author Marion Alexander Doctor Organization [facility] Address Unknown Phone Unavailable Care Team Providers Care Rn Mds Coordinator Name Role Phone Migration, Doctor Unavailable Unavailable PROBLEMS Type Condition ICD9-CM Code SZY72-SD Code Onset Dates Condition S tatus SNOMED Code Problem Acquired hypothyroidism E03.9 Active 032934989 Problem Gastro-esophageal reflux disease without esophagitis K21.9 Active 682709885 Problem Cervical disc disease M50.90 Active 671605028 Problem Dyspepsia R10.13 Active 910169828 Problem Migraine without aura and without status migrain osus, not intractable G43.009 Active [id number] ALLERGIES No Information ENCOUNTERS Encounter Location Date Diagnosis [place] [id number] [place] [address] Dec, [facility] [address] [place] [id number] [address] [place] [address] Nov, [facility] [address] [place] [id number] [address] [place] [address] Nov, Cervical disc disease M50.90 [facility] [address] [place] [place] [id number] [address] [place] [address] Oct, [facility] [address] [place] [place] [id number] [address] [place] [address] Oct, Cervical disc disease M50.90 [facility] [address] [place] [place] [id number] [address] [place] [address] Oct, Contusion of left knee, init ial encounter S80.02XA [facility] [address] [place] [place] [id number] [address] [place] [address] Oct, Cervical disc disease M50.90 [facility] [address] [place] [place] [id number] [address] [place] [address] Oct, [facility] [address] [id number] [address] [place] [address] 11 Oct, 2019 Acute pain of left knee M25. 562 [facility] [address] [id number] [address] [place] [address] Sep, [facility] [address] [id number] [address] [place] [address] Sep, Cervical disc disease M50.90 [facility] [address] [id number] [address] [place] [address] Sep, Cervical disc disease M50.90 [facility] [address] [id number] [address] [place] [address] Aug, Cervical disc disease M50.90 [facility] [address] [id number] [address] [place] [address] Aug, [facility] [address] [id number] [address] [place] [address] Jul, Cervical disc disease M50.90 [facility] [address] [id number] [address] [place] [address] Jun, Cervical disc disease M50.90 [facility] [address] [id number] [address] [place] [address] May, [facility] [address] [id number] [address] [place] [address] May, Cervical disc disease M50.[address] [facility] [address] [id number] [address] [place] [address] May, Acute cystitis with hematuri a N30.01 and UTI symptoms R39.9 [facility] [address] [id number] [address] [place] [address] 16 May, 2019 [facility] [address] [id number] [address] [place] [address] Apr, Cervical disc disease M50.90 [facility] [address] [id number] [address] [place] [address] Apr, Cervical disc disease M50.90 ; Gastro-esophageal reflux disease without esophagitis K21.9 and Sinus headache R51 [facility] [address] [id number] [address] [place] [address] Apr, [facility] [address] [id number] [address] [place] [address] Apr, Cervical disc disease M50.90 [facility] [address] [id number] [address] [place] [address] Mar, [facility] [address] [id number] [address] [place] [address] Mar, Cervical disc disease M50.90 [facility] [address] [id number] [address] [place] [address] Feb, [address] [id number] [address] Feb, Cervical disc disease M50.[address] [id number] [address] January, [facility] [address] [id number] [address] [place] [address] January, Cervical disc disease M50.90 [facility] [address] [id number] [address] [place] [address] January, Cervical disc disease M50.90 [facility] [address] [id number] [address] [place] [address] Dec, Cervical disc disease M50.90 [facility] [address] [id number] [address] [place] [address] Dec, Cervical disc disease M50.90 [facility] [address] [id number] [address] [place] [address] Dec, Cervical disc disease M50.90 [facility] [address] [id number] [address] [place] [address] Dec, Cervical disc disease M50.90 ; Acquired hypothyroidism E03.9 and Migraine without aura and without status migrainosus, not intractable G43.009 [facility] [address] [id number] [address] [place] [address] Nov, [facility] [address] [facility] [id number] [address] [place] [address] Nov, Cervical disc disease M50.90 [facility] [address] [facility] [id number] [address] [place] [address] Oct, Cervical disc disease M50.90 [facility] [address] [facility] [id number] [address] [place] [address] Sep, [facility] [address] [facility] [id number] [address] [place] [address] Sep, Cervical disc disease M50.90 [facility] [address] [id number] [address] [place] [address] Aug, Cervical disc disease M50.90 [facility] [address] [facility] [id number] [address] [place] [address] Jul, Cervical disc disease M50.90 [facility] [address] [facility] [id number] [address] [place] [address] Jun, Acute recurrent pansinusitis J01.41 and Cervical disc disease M50.90 [facility] [address] [id number] [address] [place] [address] Jun, Cervical disc disease M50.90 [facility] [address] [facility] [id number] [address] [place] [address] May, Cervical disc disease M50.90 [facility] [address] [facility] [id number] [address] [place] [address] Apr, Cervical disc disease M50.90 [facility] [address] [facility] [id number] [address] [place] [address] Mar, Cervical disc disease M50.90 [facility] [address] [id number] [address] [place] [address] Mar, [facility] [address] [id number] [address] [place] [address] Mar, Cervical disc disease M50.90 [facility] [address] [id number] [address] [place] [address] Feb, Cervical disc disease M50.90 [facility] [address] [id number] [address] [place] [address] January, Cervical disc disease M50.90 [facility] [address] [id number] [address] [place] [address] Dec, [facility] [address] [id number] [address] [place] [address] Dec, Cervical disc disease M50.90 [facility] [address] [id number] [address] [place] [address] Nov, Cervical disc disease M50.90 [facility] [address] [id number] [address] [place] [address] Nov, Cervical disc disease M50.90 [facility] [address] [id number] [address] [place] [address] Oct, Cervical disc disease M50.90 [facility] [address] [id number] [address] [place] [address] Oct, Cervical disc disease M50.90 and Acute non-recurrent maxillary sinusitis J01.00 [facility] [address] [id number] [address] [place] [address] Sep, Cervical disc disease M50.90 [facility] [address] [id number] [address] [place] [address] Sep, [facility] [address] [facility] [id number] [address] [place] [address] Sep, Fatigue, unspecified type R5 3.83 and Cough R05 [facility] [address] [facility] [id number] [address] [place] [address] Aug, Cervical disc disease M50.[address] [facility] [address] [facility] [id number] [address] [place] [address] Aug, Sore throat J02.9 ; Canker s ore K12.0 and History of anemia Z86.2 [facility] [address] [facility] [id number] [address] [place] [address] Jul, Cervical disc disease M50.90 [facility] [address] [place] [id number] [address] [place] [address] Jun, Cervical disc disease M50.90 [facility] [address] [place] [id number] [address] [place] [address] Jun, Cervical disc disease M50.90 [facility] [address] [facility] [id number] [address] [place] [address] May, Cervical disc disease M50.90 [facility] [address] [place] [id number] [address] [place] [address] Apr, Cervical disc disease M50.90 [facility] [address] [facility] [id number] [address] [place] [address] Apr, [facility] [address] [facility] [id number] [address] [place] [address] Feb, Cervical disc disease M50.90 [facility] [address] [facility] [id number] [address] [place] [address] January, Cervical disc disease M50.90 [facility] [address] [facility] [id number] [address] [place] [address] Nov, [facility] [address] [facility] [id number] [address] [place] [address] Nov, Cervical disc disease M50.[address] [facility] [address] [id number] [address] [place] [address] Nov, Acute cystitis with hematuri a N30.01 and Dysuria R30.0 [facility] [address] [id number] [address] [place] [address] Oct, Cervical disc disease M50.90 and Acute non-recurrent frontal sinusitis J01.10 [facility] [address] [id number] [address] [place] [address] Sep, Neck pain M54.2 [facility] [address] [id number] [address] [place] [address] Sep, [facility] [address] [facility] [id number] [address] [place] [address] Aug, Cervical disc disease M50.90 [facility] [address] [id number] [address] [place] [address] Jul, [facility] [address] [id number] [address] [place] [address] Jun, [facility] [address] [id number] [address] [place] [address] May, [facility] [address] [facility] [id number] [address] [place] [address] May, Screening for diabetes melli tus Z13.1 ; Chronic fatigue R53.82 and Edema, unspecified type R60.9 [facility] [address] [id number] [address] [place] [address] Apr, Neck pain M54.2 [facility] [address] [id number] [address] [place] [address] Mar, [facility] [address] [id number] [address] [place] [address] Mar, Neck pain M54.2 [facility] [address] [id number] [address] [place] [address] Feb, Cervical disc disease M50.90 [facility] [address] [id number] [address] [place] [address] Feb, Cervical disc disease M50.90 [facility] [address] [id number] [address] [place] [address] January, [facility] [address] [id number] [address] [place] [address] January, [facility] [address] [id number] [address] [place] [address] January, Cervical disc disease M50.90 [facility] [address] [id number] [address] [place] [address] January, [facility] [address] [id number] [address] [place] [address] January, [facility] [address] [id number] [address] [place] [address] Dec, Cervical disc disease M50.90 [facility] [address] [id number] [address] [place] [address] Nov, Cervical disc disease M50.90 [facility] [address] [id number] [address] [place] [address] Oct, Cervical disc disease M50.90 [facility] [address] [id number] [address] [place] [address] Sep, Cervical disc disease M50.90 [facility] [address] [id number] [address] [place] [id number] Aug, Dental caries K02.9 and Enco unter for dental examination Z01.20 [facility] [address] [id number] [address] [place] [address] Aug, [facility] [address] [id number] [address] [place] [address] Aug, [facility] [address] [id number] [address] [place] [id number] 08 Aug, 2015 Encounter for dental examina tion Z01.20 [facility] [address] [id number] [address] [place] [address] 16 Jul, 2015 [facility] [address] [id number] [address] [place] [address] Jun, Sinusitis J32.9 and Cervical disc disease M50.90 [facility] [address] [id number] [address] [place] [address] Jun, [facility] [address] [id number] [address] [place] [address] 24 May, 2015 [facility] [address] [id number] [address] [place] [address] May, [facility] [address] [id number] [address] [place] [address] May, [facility] [address] [id number] [address] [place] [address] May, [facility] [address] [id number] [address] [place] [address] Apr, Cervical spondylosis without myelopathy 721.0 [facility] [address] [id number] [address] [place] [address] Mar, [facility] [address] [id number] [address] [place] [address] January, Cervical spondylosis without myelopathy 721.0 [facility] [address] [id number] [address] [place] [address] Dec, [facility] [address] [id number] [address] [place] [address] 14 Dec, 2014 [facility] [address] [id number] [address] [place] [address] 13 Dec, 2014 [facility] [address] [id number] [address] [place] [address], [place] [address] Nov, [facility] [address] [id number] [address] [place] [address], [place] [address] Nov, [facility] [address] [id number] [address] [place] [address], [place] [address] Oct, 2014 [facility] [address] [id number] [address] [place] [address], [place] [address] Oct, 2014 [facility] [address] [id number] [address] [place] [address], [place] [address] Oct, [facility] [address] [id number] [address] [place] [address], [place] [address] Oct, [facility] [address] [id number] [address] [place] [address], [place] [address] Oct, [facility] [address] [id number] [address] [place] [address], [place] [address] Oct, [facility] [address] [id number] [address] [place] [address], [place] [address] Oct, [facility] [address] [id number] [address] [place] [address], [place] [address] Oct, [facility] [address] [id number] [address] [place] [address], [place] [address] Oct, [facility] [address] [id number] [address] [place] [address] Oct, [facility] [address] [id number] [address] [place] [address], [place] [address] Sep, [facility] [address] [id number] [address] [place] [address], [place] [address] Sep, [facility] [address] [id number] [address] [place] [address], [place] [address] Sep, [facility] [address] [id number] [address] [place] [address] Sep, [facility] [address] [id number] [address] [place] [address], [place] [address] Sep, [facility] [address] [id number] [address] [place] [address], [place] [address] Sep, [facility] [address] [id number] [address] [place] [address], [place] [address] Sep, [facility] [address] [id number] [address] [place] [address], [place] [address] Sep, [facility] [address] [id number] [address] [place] [address], [place] [address] Sep, [facility] [address] [id number] [address] [place] [address], [place] [address] Aug, [facility] [address] [id number] [address] [place] [address], [place] [address] Aug, [facility] [address] [id number] [address] [place] [address], [place] [address] Aug, [facility] [address] [id number] [address] [place] [address], [place] [address] Aug, [facility] [address] [id number] [address] [place] [address], [place] [address] Jul, [facility] [address] [id number] [address] [place] [address], [place] [address] Jul, [facility] [address] [id number] [address] [place] [address], [place] [address] Jul, [facility] [address] [id number] [address] [place] [address], [place] [address] Jul, [facility] [address] [id number] [address] [place] [address], [place] [address] Jul, [facility] [address] [id number] [address] [place] [address], [place] [address] Jul, [facility] [address] [id number] [address] [place] [address], [place] [address] Jul, [facility] [address] [id number] [address] [place] [address], [place] [address] Jul, [facility] [address] [id number] [address] [place] [address], [place] [address] 27 Jun, 2014 [facility] [address] [id number] [address] [place] [address], [place] [address] 27 Jun, 2014 [facility] [address] [id number] [address] [place] [address], [place] [address] 20 Jun, 2014 [facility] [address] [id number] [address] [place] [address], [place] [address] 20 Jun, 2014 [facility] [address] [id number] [address] [place] [address], [place] [address] 16 Jun, 2014 [facility] [address] [id number] [address] [place] [address], [place] [address] 15 Jun, 2014 [facility] [address] [id number] [address] [place] [address], [place] [address] 15 Jun, 2014 [facility] [address] [id number] [address] [place] [address], [place] [address] 14 Jun, 2014 [facility] [address] [id number] [address] [place] [address], [place] [address] 14 Jun, 2014 [facility] [address] [id number] [address] [place] [address], [place] [address] 11 Jun, 2014 [facility] [address] [id number] [address] [place] [address], [place] [address] 11 Jun, 2014 [facility] [address] [id number] [address] [place] [address], [place] [address] 24 May, 2014 [facility] [address] [id number] [address] [place] [address], [place] [address] 24 May, 2014 [facility] [address] [id number] [address] [place] [address], [place] [address] May, [facility] [address] [id number] [facility] [place] [address] May, [facility] [address] [id number] [address] [place] [address], [place] [address] May, [facility] [address] [id number] [address] [place] [address], [place] [address] Apr, [facility] [address] [id number] [address] [place] [address], [place] [address] Apr, [facility] [address] [id number] [address] [place] [address], [place] [address] Apr, [facility] [address] [id number] [address] [place] [address], [place] [address] Apr, [facility] [address] [id number] [address] [place] [address], [place] [address] Apr, [facility] [address] [id number] [address] [place] [address], [place] [address] Apr, [facility] [address] [id number] [address] [place] [address], [place] [address] Mar, [facility] [address] [id number] [address] [place] [address], [place] [address] Mar, [facility] [address] [id number] [address] [place] [address], [place] [address] Mar, [facility] [address] [id number] [address] [place] [address], [place] [address] Mar, [facility] [address] [id number] [address] [place] [address], [place] [address] Mar, [facility] [address] [id number] [address] [place] [address], [place] [id number] Mar, [facility] [address] [id number] [address] [place] [address], [place] [address] Feb, [facility] [address] [id number] [address] [place] [address], [place] [address] Feb, [facility] [address] [id number] [address] [place] [address], [place] [address] Feb, [facility] [address] [id number] [address] [place] [address], [place] [address] Feb, [facility] [address] [id number] [address] [place] [address], [place] [address] Feb, [facility] [address] [id number] [address] [place] [address], [place] [address] Feb, [facility] [address] [id number] [address] [place] [address], [place] [address] Feb, [facility] [address] [id number] [address] [place] [address], [place] [address] Feb, [facility] [address] [id number] [address] [place] [address], [place] [address] January, [facility] [address] [id number] [address] [place] [address], [place] [address] January, [facility] [address] [id number] [address] [place] [address], [place] [address] January, [facility] [address] [id number] [address] [place] [address], [place] [address] January, [facility] [address] [id number] [address] [place] [address], [place] [address] January, [facility] [address] [id number] [address] [place] [address], [place] [address] January, [facility] [address] [id number] [address] [place] [address], [place] [address] January, [facility] [address] [id number] [address] [place] [address], [place] [address] January, [facility] [address] [id number] [address] [place] [address], [place] [address] Dec, [facility] [address] [id number] [facility] [place] [address] 30 Dec, 2013 [facility] [address] [id number] [facility] [place] [address] Dec, [facility] [address] [id number] [facility] [place] [address] Dec, [facility] [address] [id number] [address] [place] [address], [place] [address] Dec, [facility] [address] [id number] [address] [place] [address], [place] [address] Dec, [facility] [address] [id number] [address] [place] [address], [place] [address] Nov, [facility] [address] [id number] [address] [place] [address], [place] [address] Nov, [facility] [address] [id number] [address] [place] [address], [place] [address] Nov, [facility] [address] [id number] [address] [place] [address], [place] [address] Nov, [facility] [address] [id number] [address] [place] [address], [place] [address] Nov, [facility] [address] [id number] [address] [place] [address], [place] [address] Nov, [facility] [address] [id number] [address] [place] [address], [place] [address] Nov, [facility] [address] [id number] [address] [place] [address], [place] [address] Nov, [facility] [address] [id number] [address] [place] [address], [place] [address] Oct, [facility] [address] [id number] [address] [place] [address], [place] [address] Oct, [facility] [address] [id number] [address] [place] [address], [place] [address] Sep, [facility] [address] [id number] [address] [place] [address], [place] [address] Sep, [facility] [address] [id number] [address] [place] [address], [place] [address] Sep, [facility] [address] [id number] [address] [place] [address], [place] [address] Sep, [facility] [address] [id number] [address] [place] [address], [place] [address] Aug, [facility] [address] [id number] [address] [place] [address], [place] [address] Aug, [facility] [address] [id number] [address] [place] [address], [place] [address] Aug, [facility] [address] [id number] [address] [place] [address], [place] [address] Aug, [facility] [address] [id number] [address] [place] [address], [place] [address] Jul, [facility] [address] [id number] [address] [place] [address], [place] [address] Jul, [facility] [address] [id number] [address] [place] [address], [place] [address] Jul, [facility] [address] [id number] [address] [place] [address], [place] [address] Jul, [facility] [address] [id number] [address] [place] [address], [place] [address] Jul, [facility] [address] [id number] [address] [place] [address], [place] [address] Jul, [facility] [address] [id number] [address] [place] [address], [place] [address] Jul, [facility] [address] [id number] [address] [place] [address], [place] [address] Jul, [facility] [address] [id number] [address] [place] [address], [place] [address] Jul, [facility] [address] [id number] [address] [place] [address], [place] [address] Jul, [facility] [address] [id number] [address] [place] [address], [place] [address] Jul, [facility] [address] [id number] [address] [place] [address], [place] [address] Jul, [facility] [address] [id number] [address] [place] [address], [place] [address] Jun, [facility] [address] [id number] [address] [place] [address], [place] [address] Jun, [facility] [address] [id number] [address] [place] [address], [place] [address] Jun, [facility] [address] [id number] [address] [place] [address], [place] [address] Jun, [facility] [address] [id number] [address] [place] [address], [place] [address] 16 Jun, 2013 [facility] [address] [id number] [address] [place] [address], [place] [address] Jun, [facility] [address] [id number] [address] [place] [address], [place] [address] 14 Jun, 2013 [facility] [address] [id number] [address] [place] [address], [place] [address] 02 Jun, 2013 [facility] [address] [id number] [address] [place] [address], [place] [address] 15 May, 2013 [facility] [address] [id number] [address] [place] [address], [place] [address] 05 May, 2013 [facility] [address] [id number] [address] [place] [address], [place] [address] 04 May, 2013 [facility] [address] [id number] [address] [place] [address], [place] [address] Apr, [facility] [address] [id number] [address] [place] [address], [place] [address] Apr, [facility] [address] [id number] [address] [place] [address], [place] [address] Mar, [facility] [address] [id number] [address] [place] [address], [place] [address] Mar, [facility] [address] [id number] [address] [place] [address], [place] [address] Feb, [facility] [address] [id number] [address] [place] [address], [place] [address] January, [facility] [address] [id number] [address] [place] [address], [place] [address] January, [facility] [address] [id number] [address] [place] [address], [place] [address] January, [facility] [address] [id number] [address] [place] [address], [place] [address] January, [facility] [address] [id number] [address] [place] [address], [place] [address] January, [facility] [address] [id number] [address] [place] [address], [place] [address] Dec, [facility] [address] [id number] [address] [place] [address], [place] [address] Dec, [facility] [address] [id number] [address] [place] [address], [place] [address] Dec, [facility] [address] [id number] [address] [place] [address], [place] [address] Nov, [facility] [address] [id number] [address] [place] [address], [place] [address] Oct, [facility] [address] [id number] [address] [place] [address], [place] [address] Oct, [facility] [address] [id number] [address] [place] [address], [place] [address] 15 Oct, 2012 [facility] [address] [id number] [address] [place] [address], [place] [address] 18 Sep, 2012 [facility] [address] [id number] [address] [place] [address], [place] [address] 16 Sep, 2012 [facility] [address] [id number] [address] [place] [address], [place] [address] 14 Aug, 2012 [facility] [address] [id number] [address] [place] [address], [place] [address] 14 Aug, 2012 [facility] [address] [id number] [address] [place] [address], [place] [address] Aug, [facility] [address] [id number] [address] [place] [address], [place] [address] Aug, [facility] [address] [id number] [address] [place] [address], [place] [address] Jul, [facility] [address] [id number] [address] [place] [address], [place] [address] Jul, [facility] [address] [id number] [address] [place] [address], [place] [address] Jul, [facility] [address] [id number] [address] [place] [address], [place] [address] Jul, [facility] [address] [id number] [address] [place] [address], [place] [address] Jul, [facility] [address] [id number] [address] [place] [address] 15 Jun, 2012 [facility] [address] [id number] [address] [place] [address], [place] [address] 15 Jun, 2012 [facility] [address] [id number] [address] [place] [address], [place] [address] 10 Jun, 2012 [facility] [address] [id number] [address] [place] [address] 10 Jun, 2012 [facility] [address] [id number] [address] [place] [address], [place] [address] May, [facility] [address] [id number] [address] [place] [address], [place] [address] Apr, [facility] [address] [id number] [address] [place] [address], [place] [address] Apr, [facility] [address] [id number] [address] [place] [address], [place] [address] Apr, [facility] [address] [id number] [address] [place] [address], [place] [address] Apr, [facility] [address] [id number] [address] [place] [address], [place] [address] January, [facility] [address] [id number] [address] [place] [address], [place] [address] January, [facility] [address] [id number] [address] [place] [address], [place] [address] Dec, [facility] [address] [id number] [address] [place] [address], [place] [address] Dec, [facility] [address] [id number] [address] [place] [address], [place] [address] Nov, [facility] [address] [id number] [address] [place] [address], [place] [address] Nov, [facility] [address] [id number] [address] [place] [address], [place] [address] Nov, [facility] [address] [id number] [address] [place] [address], [place] [address] Nov, [facility] [address] [id number] [address] [place] [address], [place] [address] Oct, [facility] [address] [id number] [address] [place] [address], [place] [address] Oct, [facility] [address] [id number] [address] [place] [address], [place] [address] Oct, [facility] [address] [id number] [address] [place] [address], [place] [address] Sep, [facility] [address] [id number] [address] [place] [address] Sep, [facility] [address] [id number] [address] [place] [address], [place] [address] Aug, [facility] [address] [id number] [address] [place] [address], [place] [address] Aug, [facility] [address] [id number] [address] [place] [address], [place] [address] Jul, [facility] [address] [id number] [address] [place] [address], [place] [address] Jul, [facility] [address] [id number] [address] [place] [address], [place] [address] Jul, [facility] [address] [id number] [address] [place] [address], [place] [address] Jun, [facility] [address] [id number] [address] [place] [address], [place] [address] 24 Jun, 2011 [facility] [address] [id number] [address] [place] [address], [place] [address] Jun, [facility] [address] [id number] [address] [place] [address] Jun, [facility] [address] [id number] [address] [place] [address] Jun, [facility] [address] [id number] [address] [place] [address], [place] [address] Jun, [facility] [address] [id number] [address] [place] [address], [place] [address] 29 Aug, 2010 [facility] [address] [id number] [address] [place] [address], [place] [address] Aug, [facility] [address] [id number] [address] [place] [address], [place] [address] 08 Aug, 2010 [facility] [address] [id number] [address] [place] [address], [place] [address] 29 Jul, 2010 [facility] [address] [id number] [address] [place] [address], [place] [address] 27 Jul, 2010 [facility] [address] [id number] [address] [place] [address], [place] [address] Jul, [facility] [address] [id number] [address] [place] [address], [place] [address] 15 Jul, 2010 [facility] [address] [id number] [address] [place] [address], [place] [address] 15 Jul, 2010 [facility] [address] [id number] [address] [place] [address], [place] [address] Jul, [facility] [address] [id number] [address] [place] [address], [place] [address] Jun, [facility] [address] [id number] [address] [place] [address], [place] [address] Apr, [facility] [address] [id number] [address] [place] [address], [place] [address] Feb, [facility] [address] [id number] [address] [place] [address], [place] [address] 10 Oct, 2009 [facility] [address] [id number] [address] [place] [address], [place] [address] Sep, [facility] [address] [id number] [address] [place] [address], [place] [address] Aug, [facility] [address] [id number] [address] [place] [address], [place] [address] Aug, [facility] [address] [id number] [address] [place] [address], [place] [address] 05 Aug, 2009 [facility] [address] [id number] [address] [place] [address], [place] [address] Jul, [facility] [address] [facility] [id number] [address] [place] [address] Jun, IMMUNIZATIONS No Known Immunizations SOCIAL HISTORY [...]
--- OUTSIDE RECORDS SUMMARY | 2020-02-22 17:09 | XMS REPORT ---
Author Author Marion TRUJILLO Organization [facility] Address [address] [place] [address] Care Team Providers Care Nuclear Control Operator Name Role Phone ZACKARY TRUJILLO Unavailable PROBLEMS Type Condition ICD9-CM Code CQH31-DY Code Onset Dates Condition S tatus SNOMED Code Problem Acquired hypothyroidism E03.9 Active 144202412 Problem Gastro-esophageal reflux disease without esophagitis K21.9 Active 087343526 Problem Cervical disc disease M50.90 Active 390933522 Problem Dyspepsia R10.13 Active 543689661 Problem Migraine without aura and without status migrain osus, not intractable G43.009 Active [id number] ALLERGIES No Information ENCOUNTERS Encounter Location Date Diagnosis [place] [id number] [place] [phone] January, [place] [address] [place] [id number] [address] [place] [phone] Dec, [place] [address] [place] [phone] Nov, [place] [address] [place] [phone] Nov, Cervical disc disease M50.90 [place] [address] [place] [id number] [address] [place] [phone] Oct, [place] [address] [place] [id number] [address] [place] [phone] Oct, Cervical disc disease M50.90 [place] [address] [place] [id number] [address] [place] [phone] Oct, Contusion of left knee, init ial encounter S80.02XA [place] [address] [place] [id number] [address] [place] [id number] 13 Oct, 2019 Cervical disc disease M50.90 [facility] [address] [id number] [address] [place] [id number] 12 Oct, 2019 [facility] [address] [id number] [address] [place] [phone] 11 Oct, 2019 Acute pain of left knee M25. 562 [facility] [address] [id number] [address] [place] [phone] 31 Sep, 2019 [facility] [address] [id number] [address] [place] [phone] Sep, Cervical disc disease M50.90 [facility] [address] [id number] [address] [place] [phone] Sep, Cervical disc disease M50.90 [facility] [address] [id number] [address] [place] [id number] Aug, Cervical disc disease M50.90 [facility] [address] [id number] [address] [place] [phone] Aug, [facility] [address] [id number] [address] [place] [phone] Jul, Cervical disc disease M50.90 [facility] [address] [id number] [address] [place] [phone] Jun, Cervical disc disease M50.90 [facility] [address] [id number] [address] [place] [phone] May, [facility] [address] [id number] [address] [place] [id number] 25 May, 2019 Cervical disc disease M50.90 [facility] [address] [id number] [address] [place] [id number] 19 May, 2019 Acute cystitis with hematuri a N30.01 and UTI symptoms R39.9 [facility] [address] [id number] [address] [place] [phone] May, [facility] [address] [id number] [address] [place] [phone] Apr, Cervical disc disease M50.90 [facility] [address] [id number] [address] [place] [phone] Apr, Cervical disc disease M50.90 ; Gastro-esophageal reflux disease without esophagitis K21.9 and Sinus headache R51 [facility] [address] [id number] [address] [place] [phone] Apr, [facility] [address] [id number] [address] [place] [phone] Apr, Cervical disc disease M50.90 [facility] [address] [facility] [id number] [address] [place] [phone] Mar, [facility] [address] [id number] [address] [place] [phone] Mar, Cervical disc disease M50.90 [facility] [address] [facility] [id number] [address] [place] [phone] Feb, [address] [place] [id number] [address] Feb, Cervical disc disease M50.[address] [id number] [address] January, [facility] [address] [facility] [id number] [address] [place] [phone] January, Cervical disc disease M50.90 [facility] [address] [id number] [address] [place] [address] January, Cervical disc disease M50.90 [facility] [address] [facility] [id number] [address] [place] [address] Dec, Cervical disc disease M50.90 [facility] [address] [id number] [address] [place] [phone] Dec, Cervical disc disease M50.90 [facility] [address] [id number] [address] [place] [phone] Dec, Cervical disc disease M50.90 [facility] [address] [facility] [id number] [address] [place] [address] Dec, Cervical disc disease M50.90 ; Acquired hypothyroidism E03.9 and Migraine without aura and without status migrainosus, not intractable G43.009 [facility] [address] [id number] [address] [place] [phone] Nov, [facility] [address] [facility] [id number] [address] [place] [phone] Nov, Cervical disc disease M50.90 [facility] [address] [facility] [id number] [address] [place] [phone] Oct, Cervical disc disease M50.90 [facility] [address] [facility] [id number] [address] [place] [phone] Sep, [facility] [address] [facility] [id number] [address] [place] [id number] Sep, Cervical disc disease M50.90 [facility] [address] [facility] [id number] [address] [place] [phone] Aug, Cervical disc disease M50.90 [facility] [address] [facility] [id number] [address] [place] [address] Jul, Cervical disc disease M50.90 [facility] [address] [facility] [id number] [address] [place] [phone] Jun, Acute recurrent pansinusitis J01.41 and Cervical disc disease M50.90 [facility] [address] [facility] [id number] [address] [place] [phone] 24 Jun, 2018 Cervical disc disease M50.90 [facility] [address] [facility] [id number] [address] [place] [phone] May, Cervical disc disease M50.90 [facility] [address] [id number] [address] [place] [phone] Apr, Cervical disc disease M50.90 [facility] [address] [id number] [address] [place] [address] Mar, Cervical disc disease M50.90 [facility] [address] [id number] [address] [place] [phone] Mar, [facility] [address] [id number] [address] [place] [phone] Mar, Cervical disc disease M50.90 [facility] [address] [id number] [address] [place] [id number] Feb, Cervical disc disease M50.90 [facility] [address] [id number] [address] [place] [phone] January, Cervical disc disease M50.90 [facility] [address] [id number] [address] [place] [phone] Dec, [facility] [address] [id number] [address] [place] [address] Dec, Cervical disc disease M50.90 [facility] [address] [id number] [address] [place] [phone] Nov, Cervical disc disease M50.90 [facility] [address] [id number] [address] [place] [phone] Nov, Cervical disc disease M50.90 [facility] [address] [id number] [address] [place] [phone] Oct, Cervical disc disease M50.90 [facility] [address] [id number] [address] [place] [id number] Oct, Cervical disc disease M50.90 and Acute non-recurrent maxillary sinusitis J01.00 [facility] [address] [id number] [address] [place] [id number] Sep, Cervical disc disease M50.90 [facility] [address] [facility] [id number] [address] [place] [phone] Sep, [facility] [address] [facility] [id number] [address] [place] [phone] Sep, Fatigue, unspecified type R5 3.83 and Cough R05 [facility] [address] [facility] [id number] [address] [place] [address] Aug, Cervical disc disease M50.90 [facility] [address] [facility] [id number] [address] [place] [phone] Aug, Sore throat J02.9 ; Canker s ore K12.0 and History of anemia Z86.2 [facility] [address] [facility] [id number] [address] [place] [id number] Jul, Cervical disc disease M50.90 [facility] [address] [facility] [id number] [address] [place] [id number] Jun, Cervical disc disease M50.90 [facility] [address] [facility] [id number] [address] [place] [phone] Jun, Cervical disc disease M50.90 [facility] [address] [facility] [id number] [address] [place] [phone] May, Cervical disc disease M50.90 [facility] [address] [facility] [id number] [address] [place] [phone] Apr, Cervical disc disease M50.90 [facility] [address] [facility] [id number] [address] [place] [phone] Apr, [facility] [address] [facility] [id number] [address] [place] [phone] Feb, Cervical disc disease M50.90 [facility] [address] [place] [id number] [address] [place] [phone] January, Cervical disc disease M50.90 [facility] [address] [facility] [id number] [address] [place] [phone] Nov, [facility] [address] [facility] [id number] [address] [place] [address] Nov, Cervical disc disease M50.90 [facility] [address] [facility] [id number] [address] [place] [phone] Nov, Acute cystitis with hematuri a N30.01 and Dysuria R30.0 [facility] [address] [facility] [id number] [address] [place] [phone] Oct, Cervical disc disease M50.90 and Acute non-recurrent frontal sinusitis J01.10 [facility] [address] [facility] [id number] [address] [place] [phone] Sep, Neck pain M54.2 [facility] [address] [facility] [id number] [address] [place] [phone] Sep, [facility] [address] [facility] [id number] [address] [place] [phone] Aug, Cervical disc disease M50.90 [facility] [address] [facility] [id number] [address] [place] [phone] Jul, [facility] [address] [facility] [id number] [address] [place] [id number] Jun, [facility] [address] [place] [id number] [address] [place] [phone] May, [facility] [address] [facility] [id number] [address] [place] [phone] May, Screening for diabetes melli tus Z13.1 ; Chronic fatigue R53.82 and Edema, unspecified type R60.9 [facility] [address] [facility] [id number] [address] [place] [phone] Apr, Neck pain M54.2 [facility] [address] [place] [id number] [address] [place] [phone] Mar, [facility] [address] [id number] [address] [place] [phone] Mar, Neck pain M54.2 [facility] [address] [id number] [address] [place] [address] Feb, Cervical disc disease M50.90 [facility] [address] [id number] [address] [place] [phone] Feb, Cervical disc disease M50.90 [facility] [address] [id number] [address] [place] [phone] January, [facility] [address] [id number] [address] [place] [phone] January, [facility] [address] [id number] [address] [place] [phone] January, Cervical disc disease M50.90 [facility] [address] [id number] [address] [place] [phone] January, [facility] [address] [id number] [address] [place] [phone] January, [facility] [address] [id number] [address] [place] [phone] Dec, Cervical disc disease M50.90 [facility] [address] [id number] [address] [place] [id number] Nov, Cervical disc disease M50.90 [facility] [address] [id number] [address] [place] [phone] Oct, Cervical disc disease M50.90 [facility] [address] [id number] [address] [place] [address] Sep, Cervical disc disease M50.90 [facility] [address] [id number] [address] [place] [id number] Aug, Dental caries K02.9 and Enco unter for dental examination Z01.20 [facility] [address] [id number] [address] [place] [id number] 16 Aug, 2015 [facility] [address] [id number] [address] [place] [phone] Aug, [facility] [address] [id number] [address] [place] [id number] 08 Aug, 2015 Encounter for dental examina tion Z01.20 [facility] [address] [id number] [address] [place] [id number] Jul, [facility] [address] [id number] [address] [place] [phone] Jun, Sinusitis J32.9 and Cervical disc disease M50.90 [facility] [address] [id number] [address] [place] [phone] Jun, [facility] [address] [id number] [address] [place] [id number] 24 May, 2015 [facility] [address] [id number] [address] [place] [phone] May, [facility] [address] [id number] [address] [place] [phone] May, [facility] [address] [id number] [address] [place] [phone] May, [facility] [address] [id number] [address] [place] [id number] Apr, Cervical spondylosis without myelopathy 721.0 [facility] [address] [id number] [address] [place] [id number] Mar, [facility] [address] [id number] [address] [place] [phone] January, Cervical spondylosis without myelopathy 721.0 [facility] [address] [id number] [address] [place] [phone] Dec, [facility] [address] [id number] [address] [place] [address] [place] [address] 14 Dec, 2014 [facility] [address] [id number] [address] [place] [address], [place] [id number] 13 Dec, 2014 [facility] [address] [id number] [address] [place] [address], [place] [address] Nov, [facility] [address] [id number] [address] [place] [address], [place] [address] Nov, [facility] [address] [id number] [address] [place] [address], [place] [address] Oct, [facility] [address] [id number] [address] [place] [address], [place] [address] Oct, [facility] [address] [id number] [address] [place] [address], [place] [address] Oct, [facility] [address] [id number] [address] [place] [address], [place] [address] Oct, [facility] [address] [id number] [address] [place] [address], [place] [address] Oct, [facility] [address] [id number] [address] [place] [address], [place] [address] Oct, [facility] [address] [id number] [address] [place] [address], [place] [address] Oct, [facility] [address] [id number] [address] [place] [address], [place] [address] Oct, [facility] [address] [id number] [address] [place] [address], [place] [address] Oct, [facility] [address] [id number] [address] [place] [address], [place] [address] Oct, [facility] [address] [id number] [address] [place] [address], [place] [address] Sep, [facility] [address] [id number] [address] [place] [address], [place] [id number] Sep, [facility] [address] [id number] [address] [place] [address], [place] [id number] Sep, [facility] [address] [id number] [address] [place] [address], [place] [address] Sep, [facility] [address] [id number] [address] [place] [address], [place] [address] Sep, [facility] [address] [id number] [address] [place] [address], [place] [address] Sep, [facility] [address] [id number] [address] [place] [address], [place] [address] Sep, [facility] [address] [id number] [address] [place] [address], [place] [address] Sep, [facility] [address] [id number] [address] [place] [address], [place] [address] Sep, [facility] [address] [id number] [address] [place] [address], [place] [address] Aug, [facility] [address] [id number] [address] [place] [address], [place] [address] Aug, [facility] [address] [id number] [address] [place] [address], [place] [address] Aug, [facility] [address] [id number] [address] [place] [address], [place] [address] Aug, [facility] [address] [id number] [address] [place] [address], [place] [address] Jul, [facility] [address] [id number] [address] [place] [address], [place] [address] Jul, [facility] [address] [id number] [address] [place] [address], [place] [address] Jul, [facility] [address] [id number] [address] [place] [address], [place] [address] Jul, [facility] [address] [id number] [address] [place] [address], [place] [address] Jul, [facility] [address] [id number] [address] [place] [address], [place] [address] Jul, [facility] [address] [id number] [address] [place] [address], [place] [address] Jul, [facility] [address] [id number] [address] [place] [address], [place] [address] Jul, [facility] [address] [id number] [address] [place] [address], [place] [address] Jun, [facility] [address] [id number] [address] [place] [address], [place] [address] 27 Jun, 2014 [facility] [address] [id number] [address] [place] [address], [place] [address] Jun, [facility] [address] [id number] [address] [place] [address], [place] [address] 20 Jun, 2014 [facility] [address] [id number] [address] [place] [address], [place] [address] 16 Jun, 2014 [facility] [address] [id number] [address] [place] [address], [place] [address] 15 Jun, 2014 [facility] [address] [id number] [address] [place] [address], [place] [address] 15 Jun, 2014 [facility] [address] [id number] [address] [place] [address], [place] [address] 14 Jun, 2014 [facility] [address] [id number] [address] [place] [address], [place] [address] 14 Jun, 2014 [facility] [address] [id number] [address] [place] [address], [place] [address] 11 Jun, 2014 [facility] [address] [id number] [address] [place] [address], [place] [address] 11 Jun, 2014 [facility] [address] [id number] [address] [place] [address], [place] [address] 24 May, 2014 [facility] [address] [id number] [facility] [address] 24 May, 2014 [facility] [address] [id number] [address] [place] [address], [place] [address] May, [facility] [address] [id number] [address] [place] [address], [place] [address] May, [facility] [address] [id number] [address] [place] [address], [place] [address] May, [facility] [address] [id number] [address] [place] [address], [place] [address] Apr, [facility] [address] [id number] [address] [place] [address], [place] [address] Apr, [facility] [address] [id number] [address] [place] [address], [place] [address] Apr, [facility] [address] [id number] [address] [place] [address], [place] [address] Apr, [facility] [address] [id number] [address] [place] [address], [place] [address] Apr, [facility] [address] [id number] [address] [place] [address], [place] [address] Apr, [facility] [address] [id number] [address] [place] [address], [place] [address] Mar, [facility] [address] [id number] [address] [place] [address], [place] [address] Mar, [facility] [address] [id number] [address] [place] [address], [place] [address] Mar, [facility] [address] [id number] [address] [place] [address], [place] [address] Mar, [facility] [address] [id number] [address] [place] [address], [place] [address] Mar, [facility] [address] [id number] [address] [place] [address], [place] [address] Mar, [facility] [address] [id number] [address] [place] [address], [place] [address] Feb, [facility] [address] [id number] [address] [place] [address], [place] [address] Feb, [facility] [address] [id number] [address] [place], [place] [address], [place] [address] Feb, [facility] [address] [id number] [address] [place] [address], [place] [address] Feb, [facility] [address] [id number] [address] [place] [address], [place] [address] Feb, [facility] [address] [id number] [address] [place] [address], [place] [address] Feb, [facility] [address] [id number] [address] [place] [address], [place] [address] Feb, [facility] [address] [id number] [address] [place] [address], [place] [address] Feb, [facility] [address] [id number] [address] [place] [address], [place] [address] January, [facility] [address] [id number] [address] [place] [address], [place] [address] January, [facility] [address] [id number] [address] [place] [address], [place] [address] January, [facility] [address] [id number] [address] [place] [address], [place] [address] January, [facility] [address] [id number] [address] [place] [address], [place] [address] January, [facility] [address] [id number] [address] [place] [address], [place] [address] January, [facility] [address] [id number] [address] [place] [address], [place] [address] January, [facility] [address] [id number] [facility] [address] January, [facility] [address] [id number] [address] [place] [address], [place] [address] Dec, [facility] [address] [id number] [address] [place] [address], [place] [address] Dec, [facility] [address] [id number] [address] [place] [address], [place] [address] Dec, [facility] [address] [id number] [address] [place] [address], [place] [address] Dec, [facility] [address] [id number] [address] [place] [address], [place] [address] Dec, [facility] [address] [id number] [address] [place] [address], [place] [address] Dec, [facility] [address] [id number] [address] [place] [address], [place] [address] Nov, [facility] [address] [id number] [address] [place] [address], [place] [address] Nov, [facility] [address] [id number] [address] [place] [address], [place] [address] Nov, [facility] [address] [id number] [address] [place] [address], [place] [address] Nov, [facility] [address] [id number] [address] [place] [address], [place] [address] Nov, [facility] [address] [id number] [address] [place] [address], [place] [address] Nov, [facility] [address] [id number] [address] [place] [address], [place] [address] Nov, [facility] [address] [id number] [address] [place] [address], [place] [address] Nov, [facility] [address] [id number] [address] [place] [address], [place] [address] Oct, [facility] [address] [id number] [address] [place] [address], [place] [address] Oct, [facility] [address] [id number] [address] [place] [address], [place] [address] Sep, [facility] [address] [id number] [address] [place] [address], [place] [address] Sep, [facility] [address] [id number] [address] [place] [address], [place] [address] Sep, [facility] [address] [id number] [address] [place] [address], [place] [address] Sep, [facility] [address] [id number] [address] [place] [address], [place] [address] Aug, [facility] [address] [id number] [address] [place] [address], [place] [address] Aug, [facility] [address] [id number] [address] [place] [address], [place] [address] Aug, [facility] [address] [id number] [address] [place] [address], [place] [address] Aug, [facility] [address] [id number] [address] [place] [address], [place] [address] Jul, [facility] [address] [id number] [address] [place] [address], [place] [address] Jul, [facility] [address] [id number] [address] [place] [address], [place] [address] Jul, [facility] [address] [id number] [address] [place] [address], [place] [address] Jul, [facility] [address] [id number] [address] [place] [address], [place] [address] Jul, [facility] [address] [id number] [address] [place] [address], [place] [address] Jul, [facility] [address] [id number] [address] [place] [address] [place] [address] 12 Jul, 2013 [facility] [address] [id number] [address] [place] [address], [place] [address] Jul, [facility] [address] [id number] [address] [place] [address] Jul, [facility] [address] [id number] [address] [place] [address], [place] [address] Jul, [facility] [address] [id number] [address] [place] [address], [place] [address] 05 Jul, 2013 [facility] [address] [id number] [address] [place] [address], [place] [address] Jul, [facility] [address] [id number] [address] [place] [address], [place] [address] Jun, [facility] [address] [id number] [address] [place] [address], [place] [address] Jun, [facility] [address] [id number] [address] [place] [address], [place] [address] Jun, [facility] [address] [id number] [address] [place] [address], [place] [address] Jun, [facility] [address] [id number] [address] [place] [id number] 16 Jun, 2013 [facility] [address] [id number] [address] [place] [address], [place] [address] 14 Jun, 2013 [facility] [address] [id number] [address] [place] [address] 14 Jun, 2013 [facility] [address] [id number] [address] [place] [address] 02 Jun, 2013 [facility] [address] [id number] [address] [place] [id number] 15 May, 2013 [facility] [address] [id number] [address] [place] [address] 05 Sep, 2012 [facility] [address] [id number] [address] [place] [address], [place] [address] May, [facility] [address] [id number] [address] [place] [address], [place] [address] Apr, [facility] [address] [id number] [address] [place] [address], [place] [address] Apr, [facility] [address] [id number] [address] [place] [address], [place] [address] Mar, [facility] [address] [id number] [address] [place] [address], [place] [address] Mar, [facility] [address] [id number] [address] [place] [address], [place] [address] Feb, [facility] [address] [id number] [address] [place] [address], [place] [address] January, [facility] [address] [id number] [address] [place] [address], [place] [address] January, [facility] [address] [id number] [address] [place] [address], [place] [address] January, [facility] [address] [id number] [address] [place] [address], [place] [address] January, [facility] [address] [id number] [address] [place] [address], [place] [address] January, [facility] [address] [id number] [address] [place] [address], [place] [address] Dec, [facility] [address] [id number] [address] [place] [address], [place] [address] Dec, [facility] [address] [id number] [address] [place] [address], [place] [address] Dec, [facility] [address] [id number] [address] [place] [address], [place] [address] Nov, [facility] [address] [id number] [address] [place] [address], [place] [address] Oct, [facility] [address] [id number] [address] [place] [address], [place] [address] 18 Oct, 2012 [facility] [address] [id number] [address] [place] [address], [place] [address] 15 Oct, 2012 [facility] [address] [id number] [address] [place] [address], [place] [address] 18 Sep, 2012 [facility] [address] [id number] [address] [place] [address], [place] [address] 16 Sep, 2012 [facility] [address] [id number] [address] [place] [address], [place] [address] 14 Aug, 2012 [facility] [address] [id number] [address] [place] [address], [place] [address] 14 Aug, 2012 [facility] [address] [id number] [address] [place] [address], [place] [address] Aug, [facility] [address] [id number] [address] [place] [address], [place] [address] Aug, [facility] [address] [id number] [address] [place] [address], [place] [address] Jul, [facility] [address] [id number] [address] [place] [address], [place] [address] Jul, [facility] [address] [id number] [address] [place] [address], [place] [address] Jul, [facility] [address] [id number] [address] [place] [address] Jul, [facility] [address] [id number] [address] [place] [address], [place] [address] Jul, [facility] [address] [id number] [address] [place] [address], [place] [address] 15 Jun, 2012 [facility] [address] [id number] [address] [place] [address], [place] [address] 15 Jun, 2012 [facility] [address] [id number] [address] [place] [address], [place] [address] 10 Jun, 2012 [facility] [address] [id number] [address] [place] [address], [place] [address] 10 Jun, 2012 [facility] [address] [id number] [address] [place] [address], [place] [address] 10 May, 2012 [facility] [address] [id number] [address] [place] [address], [place] [address] Apr, [facility] [address] [id number] [address] [place] [address], [place] [address] Apr, [facility] [address] [id number] [address] [place] [address], [place] [address] Apr, [facility] [address] [id number] [address] [place] [address], [place] [address] Apr, [facility] [address] [id number] [address] [place] [address], [place] [address] January, [facility] [address] [id number] [address] [place] [address], [place] [address] January, [facility] [address] [id number] [address] [place] [address], [place] [address] Dec, [facility] [address] [id number] [address] [place] [address], [place] [address] Dec, [facility] [address] [id number] [address] [place] [address], [place] [address] Nov, [facility] [address] [id number] [address] [place] [address], [place] [address] Nov, [facility] [address] [id number] [address] [place] [address], [place] [address] Nov, [facility] [address] [id number] [address] [place] [address], [place] [address] Nov, [facility] [address] [id number] [address] [place] [address], [place] [address] Oct, [facility] [address] [id number] [address] [place] [address], [place] [address] Oct, [facility] [address] [id number] [address] [place] [address], [place] [address] Oct, [facility] [address] [id number] [address] [place] [address], [place] [address] Sep, [facility] [address] [id number] [address] [place] [address], [place] [address] Sep, [facility] [address] [id number] [address] [place] [address], [place] [address] Aug, [facility] [address] [id number] [address] [place] [address], [place] [address] Aug, [facility] [address] [id number] [address] [place] [address], [place] [address] Jul, [facility] [address] [id number] [address] [place] [address], [place] [address] Jul, [facility] [address] [id number] [address] [place] [address], [place] [address] Jul, [facility] [address] [id number] [address] [place] [address] Jun, [facility] [address] [id number] [address] [place] [address] 24 Jun, 2011 [facility] [address] [id number] [address] [place] [address] Jun, [facility] [address] [id number] [address] [place] [address], [place] [address] Jun, [facility] [address] [id number] [address] [place] [address] Jun, [facility] [address] [id number] [address] [place] [address] Jun, [facility] [address] [id number] [address] [place] [address], [place] [address] 29 Aug, 2010 [facility] [address] [id number] [address] [place] [address], [place] [address] 12 Aug, 2010 [facility] [address] [id number] [address] [place] [address], [place] [address] 08 Aug, 2010 [facility] [address] [id number] [address] [place] [address], [place] [address] 29 Jul, 2010 [facility] [address] [id number] [address] [place] [address], [place] [address] 27 Jul, 2010 [facility] [address] [id number] [address] [place] [address], [place] [address] Jul, [facility] [address] [id number] [address] [place] [address], [place] [address] 15 Jul, 2010 [facility] [address] [id number] [address] [place] [address], [place] [address] 15 Jul, 2010 [facility] [address] [id number] [address] [place] [address], [place] [address] 08 Jul, 2010 [facility] [address] [id number] [address] [place] [address], [place] [address] 25 Jun, 2010 [facility] [address] [id number] [address] [place] [address], [place] [address] Apr, [facility] [address] [id number] [address] [place] [address], [place] [address] 11 Feb, 2010 [facility] [address] [id number] [address] [place] [address], [place] [address] 10 Oct, 2009 [facility] [address] [id number] [address] [place] [address], [place] [address] 13 Sep, 2009 [facility] [address] [id number] [address] [place] [address], [place] [address] 18 Aug, 2009 [facility] [address] [id number] [address] [place] [address], [place] [address] Aug, [facility] [address] [facility] [id number] [address] [place] [address] Aug, [facility] [address] [facility] [id number] [address] [place] [address] Jul, [facility] [address] [facility] [id number] [address] [place] [address] Jun, IMMUNIZATIONS No Known Immunizations SOCIAL HISTORY Never Assessed REASON FOR VISIT PLAN OF CARE VITAL SIGNS Height 65 in 2014-07-24 Weight 175 lbs 2014-07-24 Temperature 98 degrees Fahrenheit 2014-07-24 Heart Rate 78 bpm 2014-07-24 Respiratory Rate 20 2014-07-24 Blood pressure systolic 162 mmHg 2014-07-24 Blood pressure diastolic 78 mmHg 2014-07-24 MEDICATIONS Unknown Medications RESULTS No Results PROCEDURES [...]
--- OUTSIDE RECORDS SUMMARY | 2020-02-22 17:10 | XMS REPORT ---
Author Author Marion Alexander Doctor Organization [facility] Address Unknown Phone Unavailable Care Team Providers Care Erp Implementation Consultant Name Role Phone Migration, Doctor Unavailable Unavailable PROBLEMS Type Condition ICD9-CM Code NCJ52-DL Code Onset Dates Condition S tatus SNOMED Code Problem Acquired hypothyroidism E03.9 Active 037117095 Problem Gastro-esophageal reflux disease without esophagitis K21.9 Active 596198904 Problem Cervical disc disease M50.90 Active 559034814 Problem Dyspepsia R10.13 Active 645025409 Problem Migraine without aura and without status migrain osus, not intractable G43.009 Active 837644406 ALLERGIES No Information ENCOUNTERS Encounter Location Date Diagnosis [place] [id number] [place] [address] Dec, [facility] [address] [id number] [address] [place] [address] Nov, [facility] [address] [id number] [address] [place] [address] Nov, Cervical disc disease M50.90 [facility] [address] [id number] [address] [place] [address] Oct, [facility] [address] [id number] [address] [place] [address] Oct, Cervical disc disease M50.90 [facility] [address] [id number] [address] [place] [address] Oct, Contusion of left knee, init ial encounter S80.02XA [facility] [address] [id number] [address] [place] [address] Oct, Cervical disc disease M50.90 [facility] [address] [id number] [address] [place] [address] Oct, [facility] [address] [id number] [address] [place] [address] 11 Oct, 2019 Acute pain of left knee M25. 562 [facility] [address] [id number] [address] [place] [address] Sep, [facility] [address] [id number] [address] [place] [address] Sep, Cervical disc disease M50.90 [facility] [address] [id number] [address] [place] [address] Sep, Cervical disc disease M50.90 [facility] [address] [id number] [address] [place] [address] Aug, Cervical disc disease M50.90 [facility] [address] [id number] [address] [place] [address] Aug, [facility] [address] [id number] [address] [place] [address] Jul, Cervical disc disease M50.90 [facility] [address] [id number] [address] [place] [address] Jun, Cervical disc disease M50.90 [facility] [address] [id number] [address] [place] [address] May, [facility] [address] [id number] [address] [place] [address] May, Cervical disc disease M50.90 [facility] [address] [id number] [address] [place] [address] May, Acute cystitis with hematuri a N30.01 and UTI symptoms R39.9 [facility] [address] [id number] [address] [place] [address] 16 May, 2019 [facility] [address] [id number] [address] [place] [address] Apr, Cervical disc disease M50.90 [facility] [address] [id number] [address] [place] [address] Apr, Cervical disc disease M50.90 ; Gastro-esophageal reflux disease without esophagitis K21.9 and Sinus headache R51 [facility] [address] [id number] [address] [place] [address] Apr, [facility] [address] [id number] [address] [place] [address] Apr, Cervical disc disease M50.90 [facility] [address] [id number] [address] [place] [address] Mar, [facility] [address] [id number] [address] [place] [address] Mar, Cervical disc disease M50.90 [facility] [address] [id number] [address] [place] [address] Feb, [address] [place] [address] Feb, Cervical disc disease M50.[address] 340B [id number] [address] January, [facility] [address] [id number] [address] [place] [address] January, Cervical disc disease M50.90 [facility] [address] [id number] [address] [place] [address] January, Cervical disc disease M50.90 [facility] [address] [id number] [address] [place] [address] Dec, Cervical disc disease M50.90 [facility] [address] [id number] [address] [place] [address] Dec, Cervical disc disease M50.90 [facility] [address] [id number] [address] [place] [address] Dec, Cervical disc disease M50.90 [facility] [address] [id number] [address] [place] [address] Dec, Cervical disc disease M50.90 ; Acquired hypothyroidism E03.9 and Migraine without aura and without status migrainosus, not intractable G43.009 [facility] [address] [id number] [address] [place] [address] Nov, [facility] [address] [facility] [id number] [address] [place] [address] Nov, Cervical disc disease M50.90 [facility] [address] [facility] [id number] [address] [place] [address] Oct, Cervical disc disease M50.90 [facility] [address] [facility] [id number] [address] [place] [address] Sep, [facility] [address] [facility] [id number] [address] [place] [address] Sep, Cervical disc disease M50.90 [facility] [address] [id number] [address] [place] [address] Aug, Cervical disc disease M50.90 [facility] [address] [facility] [id number] [address] [place] [address] Jul, Cervical disc disease M50.90 [facility] [address] [facility] [id number] [address] [place] [address] Jun, Acute recurrent pansinusitis J01.41 and Cervical disc disease M50.90 [facility] [address] [id number] [address] [place] [address] Jun, Cervical disc disease M50.90 [facility] [address] [facility] [id number] [address] [place] [address] May, Cervical disc disease M50.90 [facility] [address] [facility] [id number] [address] [place] [address] Apr, Cervical disc disease M50.90 [facility] [address] [facility] [id number] [address] [place] [address] Mar, Cervical disc disease M50.90 [facility] [address] [id number] [address] [place] [address] Mar, [facility] [address] [id number] [address] [place] [address] Mar, Cervical disc disease M50.90 [facility] [address] [id number] [address] [place] [address] Feb, Cervical disc disease M50.90 [facility] [address] [id number] [address] [place] [address] January, Cervical disc disease M50.90 [facility] [address] [id number] [address] [place] [address] Dec, [facility] [address] [id number] [address] [place] [address] Dec, Cervical disc disease M50.90 [facility] [address] [id number] [address] [place] [address] Nov, Cervical disc disease M50.90 [facility] [address] [id number] [address] [place] [address] Nov, Cervical disc disease M50.90 [facility] [address] [id number] [address] [place] [address] Oct, Cervical disc disease M50.90 [facility] [address] [id number] [address] [place] [address] Oct, Cervical disc disease M50.90 and Acute non-recurrent maxillary sinusitis J01.00 [facility] [address] [id number] [address] [place] [address] Sep, Cervical disc disease M50.90 [facility] [address] [id number] [address] [place] [address] Sep, [facility] [address] [facility] [id number] [address] [place] [address] Sep, Fatigue, unspecified type R5 3.83 and Cough R05 [facility] [address] [facility] [id number] [address] [place] [address] Aug, Cervical disc disease M50.90 [facility] [address] [facility] [id number] [address] [place] [address] Aug, Sore throat J02.9 ; Canker s ore K12.0 and History of anemia Z86.2 [facility] [address] [facility] [id number] [address] [place] [address] Jul, Cervical disc disease M50.90 [facility] [address] [place] [id number] [address] [place] [address] Jun, Cervical disc disease M50.90 [facility] [address] [place] [id number] [address] [place] [address] Jun, Cervical disc disease M50.90 [facility] [address] [facility] [id number] [address] [place] [address] May, Cervical disc disease M50.90 [facility] [address] [place] [id number] [address] [place] [address] Apr, Cervical disc disease M50.90 [facility] [address] [facility] [id number] [address] [place] [address] Apr, [facility] [address] [facility] [id number] [address] [place] [address] Feb, Cervical disc disease M50.90 [facility] [address] [facility] [id number] [address] [place] [address] January, Cervical disc disease M50.90 [facility] [address] [facility] [id number] [address] [place] [address] Nov, [facility] [address] [facility] [id number] [address] [place] [address] Nov, Cervical disc disease M50.90 [facility] [address] [id number] [address] [place] [address] Nov, Acute cystitis with hematuri a N30.01 and Dysuria R30.0 [facility] [address] [id number] [address] [place] [address] Oct, Cervical disc disease M50.90 and Acute non-recurrent frontal sinusitis J01.10 [facility] [address] [id number] [address] [place] [address] Sep, Neck pain M54.2 [facility] [address] [id number] [address] [place] [address] Sep, [facility] [address] [facility] [id number] [address] [place] [address] Aug, Cervical disc disease M50.90 [facility] [address] [id number] [address] [place] [address] Jul, [facility] [address] [id number] [address] [place] [address] Jun, [facility] [address] [id number] [address] [place] [address] May, [facility] [address] [facility] [id number] [address] [place] [address] May, Screening for diabetes melli tus Z13.1 ; Chronic fatigue R53.82 and Edema, unspecified type R60.9 [facility] [address] [id number] [address] [place] [address] Apr, Neck pain M54.2 [facility] [address] [id number] [address] [place] [address] Mar, [facility] [address] [id number] [address] [place] [address] Mar, Neck pain M54.2 [facility] [address] [id number] [address] [place] [address] Feb, Cervical disc disease M50.90 [facility] [address] [id number] [address] [place] [address] Feb, Cervical disc disease M50.90 [facility] [address] [id number] [address] [place] [address] January, [facility] [address] [id number] [address] [place] [address] January, [facility] [address] [id number] [address] [place] [address] January, Cervical disc disease M50.90 [facility] [address] [id number] [address] [place] [address] January, [facility] [address] [id number] [address] [place] [address] January, [facility] [address] [id number] [address] [place] [address] Dec, Cervical disc disease M50.90 [facility] [address] [id number] [address] [place] [address] Nov, Cervical disc disease M50.90 [facility] [address] [id number] [address] [place] [address] Oct, Cervical disc disease M50.90 [facility] [address] [id number] [address] [place] [address] Sep, Cervical disc disease M50.90 [facility] [address] [id number] [address] [place] [id number] Aug, Dental caries K02.9 and Enco unter for dental examination Z01.20 [facility] [address] [id number] [address] [place] [address] Aug, [facility] [address] [id number] [address] [place] [address] Aug, [facility] [address] [id number] [address] [place] [id number] 08 Aug, 2015 Encounter for dental examina tion Z01.20 [facility] [address] [id number] [address] [place] [address] 16 Jul, 2015 [facility] [address] [id number] [address] [place] [address] Jun, Sinusitis J32.9 and Cervical disc disease M50.90 [facility] [address] [id number] [address] [place] [address] Jun, [facility] [address] [id number] [address] [place] [address] 24 May, 2015 [facility] [address] [id number] [address] [place] [address] May, [facility] [address] [id number] [address] [place] [address] May, [facility] [address] [id number] [address] [place] [address] May, [facility] [address] [id number] [address] [place] [address] Apr, Cervical spondylosis without myelopathy 721.0 [facility] [address] [id number] [address] [place] [address] Mar, [facility] [address] [id number] [address] [place] [address] January, Cervical spondylosis without myelopathy 721.0 [facility] [address] [id number] [address] [place] [address] Dec, [facility] [address] [id number] [address] [place] [address] 14 Dec, 2014 [facility] [address] [id number] [address] [place] [address] 13 Dec, 2014 [facility] [address] [id number] [address] [place] [address], [place] [address] Nov, [facility] [address] [id number] [address] [place] [address], [place] [address] Nov, [facility] [address] [id number] [address] [place] [address], [place] [address] Oct, 2014 [facility] [address] [id number] [address] [place] [address], [place] [address] Oct, 2014 [facility] [address] [id number] [address] [place] [address], [place] [address] Oct, [facility] [address] [id number] [address] [place] [address], [place] [address] Oct, [facility] [address] [id number] [address] [place] [address], [place] [address] Oct, [facility] [address] [id number] [address] [place] [address], [place] [address] Oct, [facility] [address] [id number] [address] [place] [address], [place] [address] Oct, [facility] [address] [id number] [address] [place] [address], [place] [address] Oct, [facility] [address] [id number] [address] [place] [address], [place] [address] Oct, [facility] [address] [id number] [address] [place] [id number] Oct, [facility] [address] [id number] [address] [place] [address], [place] [address] Sep, [facility] [address] [id number] [address] [place] [address], [place] [address] Sep, [facility] [address] [id number] [address] [place] [address], [place] [address] Sep, [facility] [address] [id number] [address] [place] [address] Sep, [facility] [address] [id number] [address] [place] [address], [place] [address] Sep, [facility] [address] [id number] [address] [place] [address], [place] [address] Sep, [facility] [address] [id number] [address] [place] [address], [place] [address] Sep, [facility] [address] [id number] [address] [place] [address], [place] [address] Sep, [facility] [address] [id number] [address] [place] [address], [place] [address] Sep, [facility] [address] [id number] [address] [place] [address], [place] [address] Aug, [facility] [address] [id number] [address] [place] [address], [place] [address] Aug, [facility] [address] [id number] [address] [place] [address], [place] [address] Aug, [facility] [address] [id number] [address] [place] [address], [place] [address] Aug, [facility] [address] [id number] [address] [place] [address], [place] [address] Jul, [facility] [address] [id number] [address] [place] [address], [place] [address] Jul, [facility] [address] [id number] [address] [place] [address], [place] [address] Jul, [facility] [address] [id number] [address] [place] [address], [place] [address] Jul, [facility] [address] [id number] [address] [place] [address], [place] [address] Jul, [facility] [address] [id number] [address] [place] [address], [place] [address] Jul, [facility] [address] [id number] [address] [place] [address], [place] [address] Jul, [facility] [address] [id number] [address] [place] [address], [place] [address] Jul, [facility] [address] [id number] [address] [place] [address], [place] [address] 27 Jun, 2014 [facility] [address] [id number] [address] [place] [address], [place] [address] 27 Jun, 2014 [facility] [address] [id number] [address] [place] [address], [place] [address] 20 Jun, 2014 [facility] [address] [id number] [address] [place] [address], [place] [address] 20 Jun, 2014 [facility] [address] [id number] [address] [place] [address], [place] [address] 16 Jun, 2014 [facility] [address] [id number] [address] [place] [address], [place] [address] 15 Jun, 2014 [facility] [address] [id number] [address] [place] [address], [place] [address] 15 Jun, 2014 [facility] [address] [id number] [address] [place] [address], [place] [address] 14 Jun, 2014 [facility] [address] [id number] [address] [place] [address], [place] [address] 14 Jun, 2014 [facility] [address] [id number] [address] [place] [address], [place] [address] 11 Jun, 2014 [facility] [address] [id number] [address] [place] [address], [place] [address] 11 Jun, 2014 [facility] [address] [id number] [address] [place] [address], [place] [address] 24 May, 2014 [facility] [address] [id number] [address] [place] [address], [place] [address] 24 May, 2014 [facility] [address] [id number] [address] [place] [address], [place] [address] May, [facility] [address] [id number] [facility] [place] [address] May, [facility] [address] [id number] [address] [place] [address], [place] [address] May, [facility] [address] [id number] [address] [place] [address], [place] [address] Apr, [facility] [address] [id number] [address] [place] [address], [place] [address] Apr, [facility] [address] [id number] [address] [place] [address], [place] [address] Apr, [facility] [address] [id number] [address] [place] [address], [place] [address] Apr, [facility] [address] [id number] [address] [place] [address], [place] [address] Apr, [facility] [address] [id number] [address] [place] [address], [place] [address] Apr, [facility] [address] [id number] [address] [place] [address], [place] [address] Mar, [facility] [address] [id number] [address] [place] [address], [place] [address] Mar, [facility] [address] [id number] [address] [place] [address], [place] [address] Mar, [facility] [address] [id number] [address] [place] [address], [place] [address] Mar, [facility] [address] [id number] [address] [place] [address], [place] [address] Mar, [facility] [address] [id number] [address] [place] [address], [place] [address] Mar, [facility] [address] [id number] [address] [place] [address], [place] [address] Feb, [facility] [address] [id number] [address] [place] [address], [place] [address] Feb, [facility] [address] [id number] [address] [place] [address], [place] [address] Feb, [facility] [address] [id number] [address] [place] [address], [place] [address] Feb, [facility] [address] [id number] [address] [place] [address], [place] [address] Feb, [facility] [address] [id number] [address] [place] [address], [place] [address] Feb, [facility] [address] [id number] [address] [place] [address], [place] [address] Feb, [facility] [address] [id number] [address] [place] [address], [place] [address] Feb, [facility] [address] [id number] [address] [place] [address], [place] [address] January, [facility] [address] [id number] [address] [place] [address], [place] [address] January, [facility] [facility] [address] [id number] [address] [place] [address], [place] [address] January, [facility] [address] [id number] [address] [place] [address], [place] [address] January, [facility] [address] [id number] [address] [place] [address], [place] [address] January, [facility] [address] [id number] [address] [place] [address], [place] [address] January, [facility] [address] [id number] [address] [place] [address], [place] [address] January, [facility] [address] [id number] [address] [place] [address], [place] [address] January, [facility] [address] [id number] [address] [place] [address], [place] [address] Dec, [facility] [address] [id number] [facility] [place] [address] 30 Dec, 2013 [facility] [address] [id number] [facility] [place] [address] Dec, [facility] [address] [id number] [facility] [place] [address] Dec, [facility] [address] [id number] [address] [place] [address], [place] [address] Dec, [facility] [address] [id number] [address] [place] [address], [place] [address] Dec, [facility] [address] [id number] [address] [place] [address], [place] [address] Nov, [facility] [address] [id number] [address] [place] [address], [place] [address] Nov, [facility] [address] [id number] [address] [place] [address], [place] [address] Nov, [facility] [address] [id number] [address] [place] [address], [place] [address] Nov, [facility] [address] [id number] [address] [place] [address], [place] [address] Nov, [facility] [address] [id number] [address] [place] [address], [place] [address] Nov, [facility] [address] [id number] [address] [place] [address], [place] [address] Nov, [facility] [address] [id number] [address] [place] [address], [place] [address] Nov, [facility] [address] [id number] [address] [place] [address], [place] [address] Oct, [facility] [address] [id number] [address] [place] [address], [place] [address] Oct, [facility] [address] [id number] [address] [place] [address], [place] [address] Sep, [facility] [address] [id number] [address] [place] [address], [place] [address] Sep, [facility] [address] [id number] [address] [place] [address], [place] [address] Sep, [facility] [address] [id number] [address] [place] [address], [place] [address] Sep, [facility] [address] [id number] [address] [place] [address], [place] [address] Aug, [facility] [address] [id number] [address] [place] [address], [place] [address] Aug, [facility] [address] [id number] [address] [place] [address], [place] [address] Aug, [facility] [address] [id number] [address] [place] [address], [place] [address] Aug, [facility] [address] [id number] [address] [place] [address], [place] [address] Jul, [facility] [address] [id number] [address] [place] [address], [place] [address] Jul, [facility] [address] [id number] [address] [place] [address], [place] [address] Jul, [facility] [address] [id number] [address] [place] [address], [place] [address] Jul, [facility] [address] [id number] [address] [place] [address], [place] [address] Jul, [facility] [address] [id number] [address] [place] [address], [place] [address] Jul, [facility] [address] [id number] [address] [place] [address], [place] [address] Jul, [facility] [address] [id number] [address] [place] [address], [place] [address] Jul, [facility] [address] [id number] [address] [place] [address], [place] [address] Jul, [facility] [address] [id number] [address] [place] [address], [place] [address] Jul, [facility] [address] [id number] [address] [place] [address], [place] [address] Jul, [facility] [address] [id number] [address] [place] [address], [place] [address] Jul, [facility] [address] [id number] [address] [place] [address], [place] [address] Jun, [facility] [address] [id number] [address] [place] [address], [place] [address] Jun, [facility] [address] [id number] [address] [place] [address], [place] [address] Jun, [facility] [address] [id number] [address] [place] [address], [place] [address] Jun, [facility] [address] [id number] [address] [place] [address], [place] [address] 16 Jun, 2013 [facility] [address] [id number] [address] [place] [address], [place] [address] Jun, [facility] [address] [id number] [address] [place] [address], [place] [address] 14 Jun, 2013 [facility] [address] [id number] [address] [place] [address], [place] [address] 02 Jun, 2013 [facility] [address] [id number] [address] [place] [address], [place] [address] 15 May, 2013 [facility] [address] [id number] [address] [place] [address], [place] [address] 05 May, 2013 [facility] [address] [id number] [address] [place] [address], [place] [address] 04 May, 2013 [facility] [address] [id number] [address] [place] [address], [place] [address] Apr, [facility] [address] [id number] [address] [place] [address], [place] [address] Apr, [facility] [address] [id number] [address] [place] [address], [place] [address] Mar, [facility] [address] [id number] [address] [place] [address], [place] [address] Mar, [facility] [address] [id number] [address] [place] [address], [place] [address] Feb, [facility] [address] [id number] [address] [place] [address], [place] [address] January, [facility] [address] [id number] [address] [place] [address], [place] [address] January, [facility] [address] [id number] [address] [place] [address], [place] [address] January, [facility] [address] [id number] [address] [place] [address], [place] [address] January, [facility] [address] [id number] [address] [place] [address], [place] [address] January, [facility] [address] [id number] [address] [place] [address], [place] [address] Dec, [facility] [address] [id number] [address] [place] [address], [place] [address] Dec, [facility] [address] [id number] [address] [place] [address], [place] [address] Dec, [facility] [address] [id number] [address] [place] [address], [place] [address] Nov, [facility] [address] [id number] [address] [place] [address], [place] [address] Oct, [facility] [address] [id number] [address] [place] [address], [place] [address] Oct, [facility] [address] [id number] [address] [place] [address], [place] [address] 15 Oct, 2012 [facility] [address] [id number] [address] [place] [address], [place] [address] 18 Sep, 2012 [facility] [address] [id number] [address] [place] [address], [place] [address] 16 Sep, 2012 [facility] [address] [id number] [address] [place] [address], [place] [address] 14 Aug, 2012 [facility] [address] [id number] [address] [place] [address], [place] [address] 14 Aug, 2012 [facility] [address] [id number] [address] [place] [address], [place] [address] Aug, [facility] [address] [id number] [address] [place] [address], [place] [address] Aug, [facility] [address] [id number] [address] [place] [address], [place] [address] Jul, [facility] [address] [id number] [address] [place] [address], [place] [address] Jul, [facility] [address] [id number] [address] [place] [address], [place] [address] Jul, [facility] [address] [id number] [address] [place] [address], [place] [address] Jul, [facility] [address] [id number] [address] [place] [address], [place] [address] Jul, [facility] [address] [id number] [address] [place] [address] 15 Jun, 2012 [facility] [address] [id number] [address] [place] [address], [place] [address] 15 Jun, 2012 [facility] [address] [id number] [address] [place] [address], [place] [address] 10 Jun, 2012 [facility] [address] [id number] [address] [place] [address] 10 Jun, 2012 [facility] [address] [id number] [address] [place] [address], [place] [address] May, [facility] [address] [id number] [address] [place] [address], [place] [address] Apr, [facility] [address] [id number] [address] [place] [address], [place] [address] Apr, [facility] [address] [id number] [address] [place] [address], [place] [address] Apr, [facility] [address] [id number] [address] [place] [address], [place] [address] Apr, [facility] [address] [id number] [address] [place] [address], [place] [address] January, [facility] [address] [id number] [address] [place] [address], [place] [address] January, [facility] [address] [id number] [address] [place] [address], [place] [address] Dec, [facility] [address] [id number] [address] [place] [address], [place] [address] Dec, [facility] [address] [id number] [address] [place] [address], [place] [address] Nov, [facility] [address] [id number] [address] [place] [address], [place] [address] Nov, [facility] [address] [id number] [address] [place] [address], [place] [address] Nov, [facility] [address] [id number] [address] [place] [address], [place] [address] Nov, [facility] [address] [id number] [address] [place] [address], [place] [address] Oct, [facility] [address] [id number] [address] [place] [address], [place] [address] Oct, [facility] [address] [id number] [address] [place] [address], [place] [address] Oct, [facility] [address] [id number] [address] [place] [address], [place] [address] Sep, [facility] [address] [id number] [address] [place] [address] Sep, [facility] [address] [id number] [address] [place] [address], [place] [address] Aug, [facility] [address] [id number] [address] [place] [address], [place] [address] Aug, [facility] [address] [id number] [address] [place] [address], [place] [address] Jul, [facility] [address] [id number] [address] [place] [address], [place] [address] Jul, [facility] [address] [id number] [address] [place] [address], [place] [address] Jul, [facility] [address] [id number] [address] [place] [address], [place] [address] Jun, [facility] [address] [id number] [address] [place] [address], [place] [address] 24 Jun, 2011 [facility] [address] [id number] [address] [place] [address], [place] [address] Jun, [facility] [address] [id number] [address] [place] [address] Jun, [facility] [address] [id number] [address] [place] [address] Jun, [facility] [address] [id number] [address] [place] [address], [place] [address] Jun, [facility] [address] [id number] [address] [place] [address], [place] [address] 29 Aug, 2010 [facility] [address] [id number] [address] [place] [address], [place] [address] Aug, [facility] [address] [id number] [address] [place] [address], [place] [address] 08 Aug, 2010 [facility] [address] [id number] [address] [place] [address], [place] [address] 29 Jul, 2010 [facility] [address] [id number] [address] [place] [address], [place] [address] 27 Jul, 2010 [facility] [address] [id number] [address] [place] [address], [place] [address] Jul, [facility] [address] [id number] [address] [place] [address], [place] [address] 15 Jul, 2010 [facility] [address] [id number] [address] [place] [address], [place] [address] 15 Jul, 2010 [facility] [address] [id number] [address] [place] [address], [place] [address] Jul, [facility] [address] [id number] [address] [place] [address], [place] [address] Jun, [facility] [address] [id number] [address] [place] [address], [place] [address] Apr, [facility] [address] [id number] [address] [place] [address], [place] [address] Feb, [facility] [address] [id number] [address] [place] [address], [place] [address] 10 Oct, 2009 [facility] [address] [id number] [address] [place] [address], [place] [address] Sep, [facility] [address] [id number] [address] [place] [address], [place] [address] Aug, [facility] [address] [id number] [address] [place] [address], [place] [address] Aug, [facility] [address] [id number] [address] [place] [address], [place] [address] 05 Aug, 2009 [facility] [address] [id number] [address] [place] [address], [place] [address] Jul, [facility] [address] [facility] [id number] [address] [place] [address] Jun, IMMUNIZATIONS No Known Immunizations SOCIAL HISTORY Never Assessed REASON FOR VISIT PLAN OF CARE VITAL SIGNS Height 65 in 2014-06-16 Weight 173.7 lbs 2014-06-16 Temperature 98.9 degrees Fahrenheit 2014-06-16 Heart Rate 100 bpm 2014-06-16 Respiratory Rate 18 2014-06-16 Blood pressure systolic 132 mmHg 2014-06-16 Blood pressure diastolic 95 mmHg 2014-06-16 MEDICATIONS Unknown Medications RESULTS No Results PROCEDURES Procedure Date Ordered Result Body Site ECG MONITOR/RECORD, 24 HRS Jun 16, 2014 INSTRUCTIONS MEDICATIONS ADMINISTERED No Known Medications MEDICAL [...]
--- OUTSIDE RECORDS SUMMARY | 2020-02-22 17:10 | XMS REPORT ---
Author Author Marion Alexander Doctor Organization [facility] Address Unknown Phone Unavailable Care Team Providers Care Orthopedically Impaired Teacher Name Role Phone Migration, Doctor Unavailable Unavailable PROBLEMS Type Condition ICD9-CM Code [id number] Code Onset Dates Condition S tatus SNOMED Code Problem Acquired hypothyroidism E03.9 Active 180369892 Problem Gastro-esophageal reflux disease without esophagitis K21.9 Active 363261962 Problem Cervical disc disease M50.90 Active 312326226 Problem Dyspepsia R10.13 Active 724705413 Problem Migraine without aura and without status migrain osus, not intractable G43.009 Active [id number] ALLERGIES No Information ENCOUNTERS Encounter Location Date Diagnosis [place] [id number] [place] [address] Dec, [facility] [address] [place] [id number] [address] [place] [address] Nov, [facility] [address] [place] [id number] [address] [place] [address] Nov, Cervical disc disease M50.90 [facility] [address] [place] [id number] [address] [place] [address] Oct, [facility] [address] [place] [place] [id number] [address] [place] [address] Oct, Cervical disc disease M50.90 [facility] [address] [place] [id number] [address] [place] [address] Oct, Contusion of left knee, init ial encounter S80.02XA [facility] [address] [place] [id number] [address] [place] [address] Oct, Cervical disc disease M50.90 [facility] [address] [place] [id number] [address] [place] [address] Oct, [facility] [address] [id number] [address] [place] [id number] 11 Oct, 2019 Acute pain of left knee M25. 562 [facility] [address] [id number] [address] [place] [address] Sep, [facility] [address] [id number] [address] [place] [address] Sep, Cervical disc disease M50.90 [facility] [address] [id number] [address] [place] [address] Sep, Cervical disc disease M50.90 [facility] [address] [id number] [address] [place] [address] Aug, Cervical disc disease M50.90 [facility] [address] [id number] [address] [place] [id number] Aug, [facility] [address] [id number] [address] [place] [address] Jul, Cervical disc disease M50.90 [facility] [address] [id number] [address] [place] [address] Jun, Cervical disc disease M50.90 [facility] [address] [id number] [address] [place] [address] May, [facility] [address] [id number] [address] [place] [address] May, Cervical disc disease M50.90 [facility] [address] [id number] [address] [place] [address] May, Acute cystitis with hematuri a N30.01 and UTI symptoms R39.9 [facility] [address] [id number] [address] [place] [address] 16 May, 2019 [facility] [address] [id number] [address] [place] [address] Apr, Cervical disc disease M50.90 [facility] [address] [id number] [address] [place] [address] Apr, Cervical disc disease M50.90 ; Gastro-esophageal reflux disease without esophagitis K21.9 and Sinus headache R51 [facility] [address] [id number] [address] [place] [address] Apr, [facility] [address] [id number] [address] [place] [address] Apr, Cervical disc disease M50.90 [facility] [address] [id number] [address] [place] [address] Mar, [facility] [address] [id number] [address] [place] [address] Mar, Cervical disc disease M50.90 [facility] [address] [id number] [address] [place] [address] Feb, [address] [id number] [address] Feb, Cervical disc disease M50.[id number] [facility] [place] [address] January, [facility] [address] [id number] [address] [place] [address] January, Cervical disc disease M50.90 [facility] [address] [id number] [address] [place] [address] January, Cervical disc disease M50.90 [facility] [address] [id number] [address] [place] [address] Dec, Cervical disc disease M50.90 [facility] [address] [id number] [address] [place] [address] Dec, Cervical disc disease M50.90 [facility] [address] [id number] [address] [place] [address] Dec, Cervical disc disease M50.90 [facility] [address] [id number] [address] [place] [address] Dec, Cervical disc disease M50.90 ; Acquired hypothyroidism E03.9 and Migraine without aura and without status migrainosus, not intractable G43.009 [facility] [address] [id number] [address] [place] [address] Nov, [facility] [address] [facility] [id number] [address] [place] [address] Nov, Cervical disc disease M50.90 [facility] [address] [facility] [id number] [address] [place] [address] Oct, Cervical disc disease M50.90 [facility] [address] [facility] [id number] [address] [place] [address] Sep, [facility] [address] [facility] [id number] [address] [place] [address] Sep, Cervical disc disease M50.90 [facility] [address] [id number] [address] [place] [address] Aug, Cervical disc disease M50.90 [facility] [address] [facility] [id number] [address] [place] [address] Jul, Cervical disc disease M50.90 [facility] [address] [facility] [id number] [address] [place] [address] Jun, Acute recurrent pansinusitis J01.41 and Cervical disc disease M50.90 [facility] [address] [id number] [address] [place] [address] Jun, Cervical disc disease M50.90 [facility] [address] [facility] [id number] [address] [place] [address] May, Cervical disc disease M50.90 [facility] [address] [facility] [id number] [address] [place] [address] Apr, Cervical disc disease M50.90 [facility] [address] [facility] [id number] [address] [place] [address] Mar, Cervical disc disease M50.90 [facility] [address] [id number] [address] [place] [address] Mar, [facility] [address] [id number] [address] [place] [address] Mar, Cervical disc disease M50.90 [facility] [address] [id number] [address] [place] [address] Feb, Cervical disc disease M50.90 [facility] [address] [id number] [address] [place] [address] January, Cervical disc disease M50.90 [facility] [address] [id number] [address] [place] [address] Dec, [facility] [address] [id number] [address] [place] [address] Dec, Cervical disc disease M50.90 [facility] [address] [id number] [address] [place] [address] Nov, Cervical disc disease M50.90 [facility] [address] [id number] [address] [place] [address] Nov, Cervical disc disease M50.90 [facility] [address] [id number] [address] [place] [address] Oct, Cervical disc disease M50.90 [facility] [address] [id number] [address] [place] [address] Oct, Cervical disc disease M50.90 and Acute non-recurrent maxillary sinusitis J01.00 [facility] [address] [id number] [address] [place] [address] Sep, Cervical disc disease M50.90 [facility] [address] [id number] [address] [place] [address] Sep, [facility] [address] [facility] [id number] [address] [place] [address] Sep, Fatigue, unspecified type R5 3.83 and Cough R05 [facility] [address] [facility] [id number] [address] [place] [address] Aug, Cervical disc disease M50.90 [facility] [address] [facility] [id number] [address] [place] [address] Aug, Sore throat J02.9 ; Canker s ore K12.0 and History of anemia Z86.2 [facility] [address] [facility] [id number] [address] [place] [address] Jul, Cervical disc disease M50.90 [facility] [address] [place] [id number] [address] [place] [address] Jun, Cervical disc disease M50.90 [facility] [address] [place] [id number] [address] [place] [address] Jun, Cervical disc disease M50.90 [facility] [address] [facility] [id number] [address] [place] [address] May, Cervical disc disease M50.90 [facility] [address] [place] [id number] [address] [place] [address] Apr, Cervical disc disease M50.90 [facility] [address] [facility] [id number] [address] [place] [address] Apr, [facility] [address] [facility] [id number] [address] [place] [address] Feb, Cervical disc disease M50.90 [facility] [address] [facility] [id number] [address] [place] [address] January, Cervical disc disease M50.90 [facility] [address] [facility] [id number] [address] [place] [address] Nov, [facility] [address] [facility] [id number] [address] [place] [address] Nov, Cervical disc disease M50.90 [facility] [address] [id number] [address] [place] [address] Nov, Acute cystitis with hematuri a N30.01 and Dysuria R30.0 [facility] [address] [id number] [address] [place] [address] Oct, Cervical disc disease M50.90 and Acute non-recurrent frontal sinusitis J01.10 [facility] [address] [id number] [address] [place] [address] Sep, Neck pain M54.2 [facility] [address] [id number] [address] [place] [address] Sep, [facility] [address] [facility] [id number] [address] [place] [address] Aug, Cervical disc disease M50.90 [facility] [address] [id number] [address] [place] [address] Jul, [facility] [address] [id number] [address] [place] [address] Jun, [facility] [address] [id number] [address] [place] [id number] May, [facility] [address] [facility] [id number] [address] [place] [address] May, Screening for diabetes melli tus Z13.1 ; Chronic fatigue R53.82 and Edema, unspecified type R60.9 [facility] [address] [id number] [address] [place] [address] Apr, Neck pain M54.2 [facility] [address] [id number] [address] [place] [address] Mar, [facility] [address] [id number] [address] [place] [address] Mar, Neck pain M54.2 [facility] [address] [id number] [address] [place] [address] Feb, Cervical disc disease M50.90 [facility] [address] [id number] [address] [place] [address] Feb, Cervical disc disease M50.90 [facility] [address] [id number] [address] [place] [address] January, [facility] [address] [id number] [address] [place] [address] January, [facility] [address] [id number] [address] [place] [address] January, Cervical disc disease M50.90 [facility] [address] [id number] [address] [place] [address] January, [facility] [address] [id number] [address] [place] [address] January, [facility] [address] [id number] [address] [place] [address] Dec, Cervical disc disease M50.90 [facility] [address] [id number] [address] [place] [address] Nov, Cervical disc disease M50.90 [facility] [address] [id number] [address] [place] [address] Oct, Cervical disc disease M50.90 [facility] [address] [id number] [address] [place] [address] Sep, Cervical disc disease M50.90 [facility] [address] [id number] [address] [place] [id number] Aug, Dental caries K02.9 and Enco unter for dental examination Z01.20 [facility] [address] [id number] [address] [place] [address] Aug, [facility] [address] [id number] [address] [place] [address] Aug, [facility] [address] [id number] [address] [place] [id number] 08 Aug, 2015 Encounter for dental examina tion Z01.20 [facility] [address] [id number] [address] [place] [address] 16 Jul, 2015 [facility] [address] [id number] [address] [place] [address] Jun, Sinusitis J32.9 and Cervical disc disease M50.90 [facility] [address] [id number] [address] [place] [address] Jun, [facility] [address] [id number] [address] [place] [address] 24 May, 2015 [facility] [address] [id number] [address] [place] [address] May, [facility] [address] [id number] [address] [place] [address] May, [facility] [address] [id number] [address] [place] [address] May, [facility] [address] [id number] [address] [place] [address] Apr, Cervical spondylosis without myelopathy 721.0 [facility] [address] [id number] [address] [place] [address] Mar, [facility] [address] [id number] [address] [place] [address] January, Cervical spondylosis without myelopathy 721.0 [facility] [address] [id number] [address] [place] [address] Dec, [facility] [address] [id number] [address] [place] [address] 14 Dec, 2014 [facility] [address] [id number] [address] [place] [address] 13 Dec, 2014 [facility] [address] [id number] [address] [place] [address], [place] [address] Nov, [facility] [address] [id number] [address] [place] [address], [place] [address] Nov, [facility] [address] [id number] [address] [place] [address], [place] [address] Oct, 2014 [facility] [address] [id number] [address] [place] [address], [place] [address] Oct, 2014 [facility] [address] [id number] [address] [place] [address], [place] [address] Oct, [facility] [address] [id number] [address] [place] [address], [place] [address] Oct, [facility] [address] [id number] [address] [place] [address], [place] [address] Oct, [facility] [address] [id number] [address] [place] [address], [place] [address] Oct, [facility] [address] [id number] [address] [place] [address], [place] [address] Oct, [facility] [address] [id number] [address] [place] [address], [place] [address] Oct, [facility] [address] [id number] [address] [place] [address], [place] [address] Oct, [facility] [address] [id number] [address] [place] [id number] Oct, [facility] [address] [id number] [address] [place] [address], [place] [address] Sep, [facility] [address] [id number] [address] [place] [address], [place] [address] Sep, [facility] [address] [id number] [address] [place] [address], [place] [address] Sep, [facility] [address] [id number] [address] [place] [phone] Sep, [facility] [address] [id number] [address] [place] [address], [place] [address] Sep, [facility] [address] [id number] [address] [place] [address], [place] [address] Sep, [facility] [address] [id number] [address] [place] [address], [place] [address] Sep, [facility] [address] [id number] [address] [place] [address], [place] [address] Sep, [facility] [address] [id number] [address] [place] [address], [place] [address] Sep, [facility] [address] [id number] [address] [place] [address], [place] [address] Aug, [facility] [address] [id number] [address] [place] [address], [place] [address] Aug, [facility] [address] [id number] [address] [place] [address], [place] [address] Aug, [facility] [address] [id number] [address] [place] [address], [place] [address] Aug, [facility] [address] [id number] [address] [place] [address], [place] [address] Jul, [facility] [address] [id number] [address] [place] [address], [place] [address] Jul, [facility] [address] [id number] [address] [place] [address], [place] [address] Jul, [facility] [address] [id number] [address] [place] [address], [place] [address] Jul, [facility] [address] [id number] [address] [place] [address], [place] [address] Jul, [facility] [address] [id number] [address] [place] [address], [place] [address] Jul, [facility] [address] [id number] [address] [place] [address], [place] [address] Jul, [facility] [address] [id number] [address] [place] [address], [place] [address] Jul, [facility] [address] [id number] [address] [place] [address], [place] [address] 27 Jun, 2014 [facility] [address] [id number] [address] [place] [address], [place] [address] 27 Jun, 2014 [facility] [address] [id number] [address] [place] [address], [place] [address] 20 Jun, 2014 [facility] [address] [id number] [address] [place] [address], [place] [address] 20 Jun, 2014 [facility] [address] [id number] [address] [place] [address], [place] [address] 16 Jun, 2014 [facility] [address] [id number] [address] [place] [address], [place] [address] 15 Jun, 2014 [facility] [address] [id number] [address] [place] [address], [place] [address] 15 Jun, 2014 [facility] [address] [id number] [address] [place] [address], [place] [address] 14 Jun, 2014 [facility] [address] [id number] [address] [place] [address], [place] [address] 14 Jun, 2014 [facility] [address] [id number] [address] [place] [address], [place] [address] 11 Jun, 2014 [facility] [address] [id number] [address] [place] [address], [place] [address] 11 Jun, 2014 [facility] [address] [id number] [address] [place] [address], [place] [address] 24 May, 2014 [facility] [address] [id number] [address] [place] [address], [place] [address] 24 May, 2014 [facility] [address] [id number] [address] [place] [address], [place] [address] May, [facility] [address] [id number] [facility] [place] [address] May, [facility] [address] [id number] [address] [place] [address], [place] [address] May, [facility] [address] [id number] [address] [place] [address], [place] [address] Apr, [facility] [address] [id number] [address] [place] [address], [place] [address] Apr, [facility] [address] [id number] [address] [place] [address], [place] [address] Apr, [facility] [address] [id number] [address] [place] [address], [place] [address] Apr, [facility] [address] [id number] [address] [place] [address], [place] [address] Apr, [facility] [address] [id number] [address] [place] [address], [place] [address] Apr, [facility] [address] [id number] [address] [place] [address], [place] [address] Mar, [facility] [address] [id number] [address] [place] [address], [place] [address] Mar, [facility] [address] [id number] [address] [place] [address], [place] [address] Mar, [facility] [address] [id number] [address] [place] [address], [place] [address] Mar, [facility] [address] [id number] [address] [place] [address], [place] [address] Mar, [facility] [address] [id number] [address] [place] [address], [place] [address] Mar, [facility] [address] [id number] [address] [place] [address], [place] [address] Feb, [facility] [address] [id number] [address] [place] [address], [place] [address] Feb, [facility] [address] [id number] [address] [place] [address], [place] [address] Feb, [facility] [address] [id number] [address] [place] [address], [place] [address] Feb, [facility] [address] [id number] [address] [place] [address], [place] [address] Feb, [facility] [address] [id number] [address] [place] [address], [place] [address] Feb, [facility] [address] [id number] [address] [place] [address], [place] [address] Feb, [facility] [address] [id number] [address] [place] [address], [place] [address] Feb, [facility] [address] [id number] [address] [place] [address], [place] [address] January, [facility] [address] [id number] [address] [place] [address], [place] [address] January, [facility] [address] [id number] [address] [place] [address], [place] [address] January, [facility] [address] [id number] [address] [place] [address], [place] [address] January, [facility] [address] [id number] [address] [place] [address], [place] [address] January, [facility] [address] [id number] [address] [place] [address], [place] [address] January, [facility] [address] [id number] [address] [place] [address], [place] [address] January, [facility] [address] [id number] [address] [place] [address], [place] [address] January, [facility] [address] [id number] [address] [place] [address], [place] [address] Dec, [facility] [address] [id number] [facility] [place] [address] 30 Dec, 2013 [facility] [address] [id number] [facility] [place] [address] Dec, [facility] [address] [id number] [facility] [place] [address] Dec, [facility] [address] [id number] [address] [place] [address], [place] [address] Dec, [facility] [address] [id number] [address] [place] [address], [place] [address] Dec, [facility] [address] [id number] [address] [place] [address], [place] [address] Nov, [facility] [address] [id number] [address] [place] [address], [place] [address] Nov, [facility] [address] [id number] [address] [place] [address], [place] [address] Nov, [facility] [address] [id number] [address] [place] [address], [place] [address] Nov, [facility] [address] [id number] [address] [place] [address], [place] [address] Nov, [facility] [address] [id number] [address] [place] [address], [place] [address] Nov, [facility] [address] [id number] [address] [place] [address], [place] [address] Nov, [facility] [address] [id number] [address] [place] [address], [place] [address] Nov, [facility] [address] [id number] [address] [place] [address], [place] [address] Oct, [facility] [address] [id number] [address] [place] [address], [place] [address] Oct, [facility] [address] [id number] [address] [place] [address], [place] [address] Sep, [facility] [address] [id number] [address] [place] [address], [place] [address] Sep, [facility] [address] [id number] [address] [place] [address], [place] [address] Sep, [facility] [address] [id number] [address] [place] [address], [place] [address] Sep, [facility] [address] [id number] [address] [place] [address], [place] [address] Aug, [facility] [address] [id number] [address] [place] [address], [place] [address] Aug, [facility] [address] [id number] [address] [place] [address], [place] [address] Aug, [facility] [address] [id number] [address] [place] [address], [place] [address] Aug, [facility] [address] [id number] [address] [place] [address], [place] [address] Jul, [facility] [address] [id number] [address] [place] [address], [place] [address] Jul, [facility] [address] [id number] [address] [place] [address], [place] [address] Jul, [facility] [address] [id number] [address] [place] [address], [place] [address] Jul, [facility] [address] [id number] [address] [place] [address], [place] [address] Jul, [facility] [address] [id number] [address] [place] [address], [place] [address] Jul, [facility] [address] [id number] [address] [place] [address], [place] [address] Jul, [facility] [address] [id number] [address] [place] [address], [place] [address] Jul, [facility] [address] [id number] [address] [place] [address], [place] [address] Jul, [facility] [address] [id number] [address] [place] [address], [place] [address] Jul, [facility] [address] [id number] [address] [place] [address], [place] [address] Jul, [facility] [address] [id number] [address] [place] [address], [place] [address] Jul, [facility] [address] [id number] [address] [place] [address], [place] [address] Jun, [facility] [address] [id number] [address] [place] [address], [place] [address] Jun, [facility] [address] [id number] [address] [place] [address], [place] [address] Jun, [facility] [address] [id number] [address] [place] [address], [place] [address] Jun, [facility] [address] [id number] [address] [place] [address], [place] [address] 16 Jun, 2013 [facility] [address] [id number] [address] [place] [address], [place] [address] Jun, [facility] [address] [id number] [address] [place] [address], [place] [address] 14 Jun, 2013 [facility] [address] [id number] [address] [place] [address], [place] [address] 02 Jun, 2013 [facility] [address] [id number] [address] [place] [address], [place] [address] 15 May, 2013 [facility] [address] [id number] [address] [place] [address], [place] [address] 05 May, 2013 [facility] [address] [id number] [address] [place] [address], [place] [address] 04 May, 2013 [facility] [address] [id number] [address] [place] [address], [place] [address] Apr, [facility] [address] [id number] [address] [place] [address], [place] [address] Apr, [facility] [address] [id number] [address] [place] [address], [place] [address] Mar, [facility] [address] [id number] [address] [place] [address], [place] [address] Mar, [facility] [address] [id number] [address] [place] [address], [place] [address] Feb, [facility] [address] [id number] [address] [place] [address], [place] [address] January, [facility] [address] [id number] [address] [place] [address], [place] [address] January, [facility] [address] [id number] [address] [place] [address], [place] [address] January, [facility] [address] [id number] [address] [place] [address], [place] [address] January, [facility] [address] [id number] [address] [place] [address], [place] [address] January, [facility] [address] [id number] [address] [place] [address], [place] [address] Dec, [facility] [address] [id number] [address] [place] [address], [place] [address] Dec, [facility] [address] [id number] [address] [place] [address], [place] [address] Dec, [facility] [address] [id number] [address] [place] [address], [place] [address] Nov, [facility] [address] [id number] [address] [place] [address], [place] [address] Oct, [facility] [address] [id number] [address] [place] [address], [place] [address] Oct, [facility] [address] [id number] [address] [place] [address], [place] [address] 15 Oct, 2012 [facility] [address] [id number] [address] [place] [address], [place] [address] 18 Sep, 2012 [facility] [address] [id number] [address] [place] [address], [place] [address] 16 Sep, 2012 [facility] [address] [id number] [address] [place] [address], [place] [address] 14 Aug, 2012 [facility] [address] [id number] [address] [place] [address], [place] [address] 14 Aug, 2012 [facility] [address] [id number] [address] [place] [address], [place] [address] Aug, [facility] [address] [id number] [address] [place] [address], [place] [address] Aug, [facility] [address] [id number] [address] [place] [address], [place] [address] Jul, [facility] [address] [id number] [address] [place] [address], [place] [address] Jul, [facility] [address] [id number] [address] [place] [address], [place] [address] Jul, [facility] [address] [id number] [address] [place] [address], [place] [address] Jul, [facility] [address] [id number] [address] [place] [address], [place] [address] Jul, [facility] [address] [id number] [address] [place] [address] 15 Jun, 2012 [facility] [address] [id number] [address] [place] [address], [place] [address] 15 Jun, 2012 [facility] [address] [id number] [address] [place] [address], [place] [address] 10 Jun, 2012 [facility] [address] [id number] [address] [place] [address] 10 Jun, 2012 [facility] [address] [id number] [address] [place] [address], [place] [address] May, [facility] [address] [id number] [address] [place] [address], [place] [address] Apr, [facility] [address] [id number] [address] [place] [address], [place] [address] Apr, [facility] [address] [id number] [address] [place] [address], [place] [address] Apr, [facility] [address] [id number] [address] [place] [address], [place] [address] Apr, [facility] [address] [id number] [address] [place] [address], [place] [address] January, [facility] [address] [id number] [address] [place] [address], [place] [address] January, [facility] [address] [id number] [address] [place] [address], [place] [address] Dec, [facility] [address] [id number] [address] [place] [address], [place] [address] Dec, [facility] [address] [id number] [address] [place] [address], [place] [address] Nov, [facility] [address] [id number] [address] [place] [address], [place] [address] Nov, [facility] [address] [id number] [address] [place] [address], [place] [address] Nov, [facility] [address] [id number] [address] [place] [address], [place] [address] Nov, [facility] [address] [id number] [address] [place] [address], [place] [address] Oct, [facility] [address] [id number] [address] [place] [address], [place] [address] Oct, [facility] [address] [id number] [address] [place] [address], [place] [address] Oct, [facility] [address] [id number] [address] [place] [address], [place] [address] Sep, [facility] [address] [id number] [address] [place] [address] Sep, [facility] [address] [id number] [address] [place] [address], [place] [address] Aug, [facility] [address] [id number] [address] [place] [address], [place] [address] Aug, [facility] [address] [id number] [address] [place] [address], [place] [address] Jul, [facility] [address] [id number] [address] [place] [address], [place] [address] Jul, [facility] [address] [id number] [address] [place] [address], [place] [address] Jul, [facility] [address] [id number] [address] [place] [address], [place] [address] Jun, [facility] [address] [id number] [address] [place] [address], [place] [address] 24 Jun, 2011 [facility] [address] [id number] [address] [place] [address], [place] [address] Jun, [facility] [address] [id number] [address] [place] [address] Jun, [facility] [address] [id number] [address] [place] [address] Jun, [facility] [address] [id number] [address] [place] [address], [place] [address] Jun, [facility] [address] [id number] [address] [place] [address], [place] [address] 29 Aug, 2010 [facility] [address] [id number] [address] [place] [address], [place] [address] Aug, [facility] [address] [id number] [address] [place] [address], [place] [address] 08 Aug, 2010 [facility] [address] [id number] [address] [place] [address], [place] [address] 29 Jul, 2010 [facility] [address] [id number] [address] [place] [address], [place] [address] 27 Jul, 2010 [facility] [address] [id number] [address] [place] [address], [place] [address] Jul, [facility] [address] [id number] [address] [place] [address], [place] [address] 15 Jul, 2010 [facility] [address] [id number] [address] [place] [address], [place] [address] 15 Jul, 2010 [facility] [address] [id number] [address] [place] [address], [place] [address] Jul, [facility] [address] [id number] [address] [place] [address], [place] [address] Jun, [facility] [address] [id number] [address] [place] [address], [place] [address] Apr, [facility] [address] [id number] [address] [place] [address], [place] [address] Feb, [facility] [address] [id number] [address] [place] [address], [place] [address] 10 Oct, 2009 [facility] [address] [id number] [address] [place] [address], [place] [address] Sep, [facility] [address] [id number] [address] [place] [address], [place] [address] Aug, [facility] [address] [id number] [address] [place] [address], [place] [address] Aug, [facility] [address] [id number] [address] [place] [address], [place] [address] 05 Aug, 2009 [facility] [address] [id number] [address] [place] [address], [place] [address] Jul, [facility] [address] [facility] [id number] [address] [place] [address] Jun, IMMUNIZATIONS No Known Immunizations SOCIAL HISTORY [...]
--- OUTSIDE RECORDS SUMMARY | 2020-02-22 17:10 | XMS REPORT ---
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 Name Role Phone ZACKARY TRUJILLO Unavailable PROBLEMS Type Condition ICD9-CM Code GQV28-FV Code Onset Dates Condition S tatus SNOMED Code Problem Acquired hypothyroidism E03.9 Active 299803332 Problem Gastro-esophageal reflux disease without esophagitis K21.9 Active 373051102 Problem Cervical disc disease M50.90 Active 152498663 Problem Dyspepsia R10.13 Active 658749810 Problem Migraine without aura and without status migrain osus, not intractable G43.009 Active [id number] ALLERGIES No Information ENCOUNTERS Encounter Location Date Diagnosis [place] [id number] [place] [address] Dec, [place] [address] [place] [id number] [address] [place] [phone] Nov, [place] [address] [place] [id number] [address] [place] [address] Nov, Cervical disc disease M50.90 [place] [address] [place] [address] Oct, [place] [address] [place] [id number] [address] [place] [address] Oct, Cervical disc disease M50.90 [place] [address] [place] [id number] [address] [place] [address] Oct, Contusion of left knee, init ial encounter S80.02XA [facility] [address] [place] [id number] [address] [place] [address] Oct, Cervical disc disease M50.90 [facility] [address] [id number] [address] [place] [phone] 12 Oct, 2019 [facility] [address] [id number] [address] [place] [address] Oct, Acute pain of left knee M25. 562 [facility] [address] [id number] [address] [place] [address] Sep, [facility] [address] [id number] [address] [place] [address] Sep, Cervical disc disease M50.90 [facility] [address] [id number] [address] [place] [id number] Sep, Cervical disc disease M50.90 [facility] [address] [id number] [address] [place] [address] Aug, Cervical disc disease M50.90 [facility] [address] [id number] [address] [place] [phone] Aug, [facility] [address] [id number] [address] [place] [address] Jul, Cervical disc disease M50.90 [facility] [address] [id number] [address] [place] [address] Jun, Cervical disc disease M50.90 [facility] [address] [id number] [address] [place] [address] May, [facility] [address] [id number] [address] [place] [address] May, Cervical disc disease M50.90 [facility] [address] [id number] [address] [place] [id number] 19 May, 2019 Acute cystitis with hematuri a N30.01 and UTI symptoms R39.9 [facility] [address] [id number] [address] [place] [phone] 16 May, 2019 [facility] [address] [id number] [address] [place] [address] Apr, Cervical disc disease M50.90 [facility] [address] [id number] [address] [place] [address] Apr, Cervical disc disease M50.90 ; Gastro-esophageal reflux disease without esophagitis K21.9 and Sinus headache R51 [facility] [address] [id number] [address] [place] [address] Apr, [facility] [address] [id number] [address] [place] [id number] Apr, Cervical disc disease M50.90 [facility] [address] [id number] [address] [place] [address] Mar, [facility] [address] [facility] [id number] [address] [place] [address] Mar, Cervical disc disease M50.90 [facility] [address] [id number] [address] [place] [address] Feb, [address] [id number] [address] Feb, Cervical disc disease M50.[address] [id number] [address] January, [facility] [address] [id number] [address] [place] [address] January, Cervical disc disease M50.90 [facility] [address] [id number] [address] [place] [address] January, Cervical disc disease M50.90 [facility] [address] [facility] [id number] [address] [place] [address] Dec, Cervical disc disease M50.90 [facility] [address] [facility] [id number] [address] [place] [address] Dec, Cervical disc disease M50.90 [facility] [address] [id number] [address] [place] [address] Dec, Cervical disc disease M50.90 [facility] [address] [place] [id number] [address] [place] [address] Dec, Cervical disc disease M50.90 ; Acquired hypothyroidism E03.9 and Migraine without aura and without status migrainosus, not intractable G43.009 [facility] [address] [facility] [id number] [address] [place] [address] Nov, [facility] [address] [facility] [id number] [address] [place] [address] Nov, Cervical disc disease M50.90 [facility] [address] [place] [id number] [address] [place] [address] Oct, Cervical disc disease M50.90 [facility] [address] [place] [id number] [address] [place] [address] Sep, [facility] [address] [place] [id number] [address] [place] [address] Sep, Cervical disc disease M50.90 [facility] [address] [place] [id number] [address] [place] [address] Aug, Cervical disc disease M50.90 [facility] [address] [place] [id number] [address] [place] [address] Jul, Cervical disc disease M50.90 [facility] [address] [facility] [id number] [address] [place] [address] Jun, Acute recurrent pansinusitis J01.41 and Cervical disc disease M50.90 [facility] [address] [facility] [id number] [address] [place] [address] Jun, Cervical disc disease M50.90 [facility] [address] [facility] [id number] [address] [place] [address] May, Cervical disc disease M50.90 [facility] [address] [place] [id number] [address] [place] [address] Apr, Cervical disc disease M50.90 [facility] [address] [id number] [address] [place] [address] Mar, Cervical disc disease M50.90 [facility] [address] [id number] [address] [place] [address] Mar, [facility] [address] [id number] [address] [place] [address] Mar, Cervical disc disease M50.90 [facility] [address] [id number] [address] [place] [address] Feb, Cervical disc disease M50.90 [facility] [address] [id number] [address] [place] [address] January, Cervical disc disease M50.90 [facility] [address] [id number] [address] [place] [id number] Dec, [facility] [address] [id number] [address] [place] [address] Dec, Cervical disc disease M50.90 [facility] [address] [id number] [address] [place] [address] Nov, Cervical disc disease M50.90 [facility] [address] [id number] [address] [place] [address] Nov, Cervical disc disease M50.90 [facility] [address] [id number] [address] [place] [address] Oct, Cervical disc disease M50.90 [facility] [address] [id number] [address] [place] [address] Oct, Cervical disc disease M50.90 and Acute non-recurrent maxillary sinusitis J01.00 [facility] [address] [id number] [address] [place] [address] Sep, Cervical disc disease M50.90 [facility] [address] [id number] [address] [place] [address] Sep, [facility] [address] [facility] [id number] [address] [place] [address] Sep, Fatigue, unspecified type R5 3.83 and Cough R05 [facility] [address] [facility] [id number] [address] [place] [address] Aug, Cervical disc disease M50.90 [facility] [address] [facility] [id number] [address] [place] [address] Aug, Sore throat J02.9 ; Canker s ore K12.0 and History of anemia Z86.2 [facility] [address] [facility] [id number] [address] [place] [address] Jul, Cervical disc disease M50.90 [facility] [address] [place] [id number] [address] [place] [address] Jun, Cervical disc disease M50.90 [facility] [address] [place] [id number] [address] [place] [address] Jun, Cervical disc disease M50.90 [facility] [address] [facility] [id number] [address] [place] [address] May, Cervical disc disease M50.90 [facility] [address] [facility] [id number] [address] [place] [address] Apr, Cervical disc disease M50.90 [facility] [address] [facility] [id number] [address] [place] [address] Apr, [facility] [address] [facility] [id number] [address] [place] [address] Feb, Cervical disc disease M50.90 [facility] [address] [facility] [id number] [address] [place] [address] January, Cervical disc disease M50.90 [facility] [address] [facility] [id number] [address] [place] [address] Nov, [facility] [address] [id number] [address] [place] [address] Nov, Cervical disc disease M50.90 [facility] [address] [facility] [id number] [address] [place] [address] Nov, Acute cystitis with hematuri a N30.01 and Dysuria R30.0 [facility] [address] [facility] [id number] [address] [place] [address] Oct, Cervical disc disease M50.90 and Acute non-recurrent frontal sinusitis J01.10 [facility] [address] [facility] [id number] [address] [place] [address] Sep, Neck pain M54.2 [facility] [address] [facility] [id number] [address] [place] [address] Sep, [facility] [address] [facility] [id number] [address] [place] [address] Aug, Cervical disc disease M50.90 [facility] [address] [facility] [id number] [address] [place] [address] Jul, [facility] [address] [facility] [id number] [address] [place] [phone] Jun, [facility] [address] [facility] [id number] [address] [place] [address] May, [facility] [address] [place] [id number] [address] [place] [address] May, Screening for diabetes emilio tus Z13.1 ; Chronic fatigue R53.82 and Edema, unspecified type R60.9 [facility] [address] [id number] [address] [place] [address] Apr, Neck pain M54.2 [facility] [address] [facility] [id number] [address] [place] [address] Mar, [facility] [address] [facility] [id number] [address] [place] [address] Mar, Neck pain M54.2 [facility] [address] [id number] [address] [place] [id number] Feb, Cervical disc disease M50.90 [facility] [address] [id number] [address] [place] [address] Feb, Cervical disc disease M50.90 [facility] [address] [id number] [address] [place] [phone] January, [facility] [address] [id number] [address] [place] [phone] January, [facility] [address] [id number] [address] [place] [address] January, Cervical disc disease M50.90 [facility] [address] [id number] [address] [place] [address] January, [facility] [address] [id number] [address] [place] [phone] January, [facility] [address] [id number] [address] [place] [address] Dec, Cervical disc disease M50.90 [facility] [address] [id number] [address] [place] [address] Nov, Cervical disc disease M50.90 [facility] [address] [id number] [address] [place] [address] Oct, Cervical disc disease M50.90 [facility] [address] [id number] [address] [place] [id number] Sep, Cervical disc disease M50.90 [facility] [address] [id number] [address] [place] [id number] Aug, Dental caries K02.9 and Enco unter for dental examination Z01.20 [facility] [address] [id number] [address] [place] [address] Aug, [facility] [address] [id number] [address] [place] [address] 15 Aug, 2015 [facility] [address] [id number] [address] [place] [id number] Aug, Encounter for dental examina tion Z01.20 [facility] [address] [id number] [address] [place] [id number] 16 Jul, 2015 [facility] [address] [id number] [address] [place] [address] Jun, Sinusitis J32.9 and Cervical disc disease M50.90 [facility] [address] [id number] [address] [place] [address] Jun, [facility] [address] [id number] [address] [place] [phone] 24 May, 2015 [facility] [address] [id number] [address] [place] [address] May, [facility] [address] [id number] [address] [place] [phone] May, [facility] [address] [id number] [address] [place] [phone] May, [facility] [address] [id number] [address] [place] [phone] Apr, Cervical spondylosis without myelopathy 721.0 [facility] [address] [id number] [address] [place] [phone] Mar, [facility] [address] [id number] [address] [place] [phone] January, Cervical spondylosis without myelopathy 721.0 [facility] [address] [id number] [address] [place] [phone] 28 Dec, 2014 [facility] [address] [id number] [address] [place] [phone] 14 Dec, 2014 [facility] [address] [id number] [address] [place] [address] [place] [address] Dec, [facility] [address] [id number] [address] [place] [address], [place] [address] Nov, [facility] [address] [id number] [address] [place] [address], [place] [address] Nov, [facility] [address] [id number] [address] [place] [address], [place] [address] Oct, 2014 [facility] [address] [id number] [address] [place] [address], [place] [address] Oct, 2014 [facility] [address] [id number] [address] [place] [address], [place] [address] Oct, 2014 [facility] [address] [id number] [address] [place] [address], [place] [address] Oct, 2014 [facility] [address] [id number] [address] [place] [address], [place] [address] Oct, [facility] [address] [id number] [address] [place] [address], [place] [address] Oct, [facility] [address] [id number] [address] [place] [address], [place] [address] Oct, [facility] [address] [id number] [address] [place] [address], [place] [address] Oct, [facility] [address] [id number] [address] [place] [address], [place] [address] Oct, [facility] [address] [id number] [address] [place] [address], [place] [address] Oct, [facility] [address] [id number] [address] [place] [address], [place] [address] Sep, [facility] [address] [id number] [address] [place] [address], [place] [address] Sep, [facility] [address] [id number] [address] [place] [address], [place] [address] Sep, [facility] [address] [id number] [address] [place] [address], [place] [address] Sep, [facility] [address] [id number] [address] [place] [address], [place] [address] Sep, [facility] [address] [id number] [address] [place] [address], [place] [address] Sep, [facility] [address] [id number] [address] [place] [address], [place] [address] Sep, [facility] [address] [id number] [address] [place] [address], [place] [address] Sep, [facility] [address] [id number] [address] [place] [address], [place] [address] Sep, [facility] [address] [id number] [address] [place] [address], [place] [address] Aug, [facility] [address] [id number] [address] [place] [address], [place] [address] Aug, [facility] [address] [id number] [address] [place] [address], [place] [address] Aug, [facility] [address] [id number] [address] [place] [address], [place] [address] Aug, [facility] [address] [id number] [address] [place] [address], [place] [address] Jul, [facility] [address] [id number] [address] [place] [address], [place] [address] Jul, [facility] [address] [id number] [address] [place] [address], [place] [address] Jul, [facility] [address] [id number] [address] [place] [address], [place] [address] Jul, [facility] [address] [id number] [address] [place] [address], [place] [address] Jul, [facility] [address] [id number] [address] [place] [address], [place] [address] Jul, [facility] [address] [id number] [address] [place] [address], [place] [address] Jul, [facility] [address] [id number] [address] [place] [address], [place] [address] Jul, [facility] [address] [id number] [address] [place] [address], [place] [address] 27 Jun, 2014 [facility] [address] [id number] [address] [place] [address], [place] [address] 27 Jun, 2014 [facility] [address] [id number] [address] [place] [address], [place] [id number] Jun, [facility] [address] [id number] [address] [place] [address], [place] [address] 20 Jun, 2014 [facility] [address] [id number] [address] [place] [address], [place] [address] 16 Jun, 2014 [facility] [address] [id number] [address] [place] [address], [place] [address] 15 Jun, 2014 [facility] [address] [id number] [address] [place] [address], [place] [address] 15 Jun, 2014 [facility] [address] [id number] [address] [place] [address], [place] [address] 14 Jun, 2014 [facility] [address] [id number] [address] [place] [address], [place] [address] 14 Jun, 2014 [facility] [address] [id number] [address] [place] [address], [place] [id number] 11 Jun, 2014 [facility] [address] [id number] [address] [place] [address], [place] [address] 11 Jun, 2014 [facility] [address] [id number] [address] [place] [address], [place] [address] 24 May, 2014 [facility] [address] [id number] [address] [place] [address], [place] [address] 24 May, 2014 [facility] [address] [id number] [facility] [place] [address] May, [facility] [address] [id number] [facility] [place] [address] May, [facility] [address] [id number] [facility] [address] May, [facility] [address] [id number] [address] [place] [address], [place] [address] Apr, [facility] [address] [id number] [address] [place] [address], [place] [address] Apr, [facility] [address] [id number] [address] [place] [address], [place] [address] Apr, [facility] [address] [id number] [address] [place] [address], [place] [address] Apr, [facility] [address] [id number] [address] [place] [address], [place] [address] Apr, [facility] [address] [id number] [address] [place] [address], [place] [address] Apr, [facility] [address] [id number] [address] [place] [address], [place] [address] Mar, [facility] [address] [id number] [address] [place] [address], [place] [address] Mar, [facility] [address] [id number] [address] [place] [address], [place] [address] Mar, [facility] [address] [id number] [address] [place] [address], [place] [address] Mar, [facility] [address] [id number] [address] [place] [address], [place] [address] Mar, [facility] [address] [id number] [address] [place] [address], [place] [address] Mar, [facility] [address] [id number] [address] [place] [address], [place] [address] Feb, [facility] [address] [id number] [address] [place] [address], [place] [address] Feb, [facility] [address] [id number] [address] [place] [address], [place] [address] Feb, [facility] [address] [id number] [address] [place] [address], [place] [address] Feb, [facility] [address] [id number] [address] [place] [address], [place] [address] Feb, [facility] [address] [id number] [address] [place] [address], [place] [address] Feb, [facility] [address] [id number] [address] [place] [address], [place] [address] Feb, [facility] [address] [id number] [address] [place] [address], [place] [address] Feb, [facility] [address] [id number] [address] [place] [address], [place] [address] January, [facility] [address] [id number] [address] [place] [address], [place] [address] January, [facility] [address] [id number] [address] [place] [address], [place] [address] January, [facility] [address] [id number] [address] [place] [address], [place] [address] January, [facility] [address] [id number] [address] [place] [address], [place] [address] January, [facility] [address] [id number] [address] [place] [address], [place] [address] January, [facility] [address] [id number] [address] [place] [address], [place] [address] January, [facility] [address] [id number] [address] [place] [address], [place] [address] January, [facility] [address] [id number] [facility] [address] Dec, [facility] [address] [id number] [address] [place] [address], [place] [address] Dec, [facility] [address] [id number] [facility] [place] [address] Dec, [facility] [address] [id number] [address] [place] [address], [place] [address] Dec, [facility] [address] [id number] [address] [place] [address], [place] [address] Dec, [facility] [address] [id number] [address] [place] [address], [place] [address] Dec, [facility] [address] [id number] [address] [place] [address], [place] [address] Nov, [facility] [address] [id number] [address] [place] [address], [place] [address] Nov, [facility] [address] [id number] [address] [place] [address], [place] [address] Nov, [facility] [address] [id number] [address] [place] [address], [place] [address] Nov, [facility] [address] [id number] [address] [place] [address], [place] [address] Nov, [facility] [address] [id number] [address] [place] [address], [place] [address] Nov, [facility] [address] [id number] [address] [place] [address], [place] [address] Nov, [facility] [address] [id number] [address] [place] [address], [place] [address] Nov, [facility] [address] [id number] [address] [place] [address], [place] [address] Oct, [facility] [address] [id number] [address] [place] [address], [place] [address] Oct, [facility] [address] [id number] [address] [place] [address], [place] [address] Sep, [facility] [address] [id number] [address] [place] [address], [place] [address] Sep, [facility] [address] [id number] [address] [place] [address], [place] [address] Sep, [facility] [address] [id number] [address] [place] [address], [place] [address] Sep, [facility] [address] [id number] [address] [place] [address], [place] [address] Aug, [facility] [address] [id number] [address] [place] [address], [place] [address] Aug, [facility] [address] [id number] [address] [place] [address], [place] [address] Aug, [facility] [address] [id number] [address] [place] [address], [place] [address] Aug, [facility] [address] [id number] [address] [place] [address], [place] [address] Jul, [facility] [address] [id number] [address] [place] [address], [place] [address] Jul, [facility] [address] [id number] [address] [place] [address], [place] [address] Jul, [facility] [address] [id number] [address] [place] [address], [place] [address] Jul, [facility] [address] [id number] [address] [place] [address], [place] [address] Jul, [facility] [address] [id number] [address] [place] [address], [place] [address] Jul, [facility] [address] [id number] [address] [place] [address], [place] [address] Jul, [facility] [address] [id number] [address] [place] [address] [place] [address] Jul, [facility] [address] [id number] [address] [place] [address], [place] [address] Jul, [facility] [address] [id number] [address] [place] [address] Jul, [facility] [address] [id number] [address] [place] [address], [place] [address] Jul, [facility] [address] [id number] [address] [place] [address], [place] [address] Jul, [facility] [address] [id number] [address] [place] [address], [place] [address] Jun, [facility] [address] [id number] [address] [place] [address], [place] [address] Jun, [facility] [address] [id number] [address] [place] [address] Jun, [facility] [address] [id number] [address] [place] [address], [place] [address] Jun, [facility] [address] [id number] [address] [place] [address] 16 Jun, 2013 [facility] [address] [id number] [address] [place] [address] Jun, [facility] [address] [id number] [address] [place] [address] 14 Jun, 2013 [facility] [address] [id number] [address] [place] [id number] 02 Jun, 2013 [facility] [address] [id number] [address] [place] [address] 15 May, 2013 [facility] [address] [id number] [address] [place] [address] 05 May, 2012 [facility] [address] [id number] [address] [place] [id number] 04 May, 2012 [facility] [address] [id number] [address] [place] [address], [place] [address] Apr, [facility] [address] [id number] [address] [place] [address], [place] [address] Apr, [facility] [address] [id number] [address] [place] [address], [place] [address] Mar, [facility] [address] [id number] [address] [place] [address], [place] [address] Mar, [facility] [address] [id number] [address] [place] [address], [place] [address] Feb, [facility] [address] [id number] [address] [place] [address], [place] [address] January, [facility] [address] [id number] [address] [place] [address], [place] [address] January, [facility] [address] [id number] [address] [place] [address], [place] [address] January, [facility] [address] [id number] [address] [place] [address], [place] [address] January, [facility] [address] [id number] [address] [place] [address], [place] [address] January, [facility] [address] [id number] [address] [place] [address], [place] [address] Dec, [facility] [address] [id number] [address] [place] [address], [place] [address] Dec, [facility] [address] [id number] [address] [place] [address], [place] [address] Dec, [facility] [address] [id number] [address] [place] [address], [place] [address] Nov, [facility] [address] [id number] [address] [place] [address], [place] [address] Oct, [facility] [address] [id number] [address] [place] [address], [place] [address] 18 Oct, 2012 [facility] [address] [id number] [address] [place] [address], [place] [address] 15 Oct, 2012 [facility] [address] [id number] [address] [place] [address], [place] [address] 18 Sep, 2012 [facility] [address] [id number] [address] [place] [address], [place] [address] 16 Sep, 2012 [facility] [address] [id number] [address] [place] [address], [place] [address] 14 Aug, 2012 [facility] [address] [id number] [address] [place] [address], [place] [address] 14 Aug, 2012 [facility] [address] [id number] [address] [place] [address], [place] [address] Aug, [facility] [address] [id number] [address] [place] [address], [place] [address] Aug, [facility] [address] [id number] [address] [place] [address], [place] [address] Jul, [facility] [address] [id number] [address] [place] [address], [place] [address] Jul, [facility] [address] [id number] [address] [place] [address], [place] [address] Jul, [facility] [address] [id number] [address] [place] [address], [place] [address] Jul, [facility] [address] [id number] [address] [place] [id number] Jul, [facility] [address] [id number] [address] [place] [address], [place] [address] 15 Jun, 2012 [facility] [address] [id number] [address] [place] [address], [place] [address] 15 Jun, 2012 [facility] [address] [id number] [address] [place] [address], [place] [address] 10 Jun, 2012 [facility] [address] [id number] [address] [place] [address], [place] [address] 10 Jun, 2012 [facility] [address] [id number] [address] [place] [address], [place] [address] 10 May, 2012 [facility] [address] [id number] [address] [place] [address], [place] [address] Apr, [facility] [address] [id number] [address] [place] [address], [place] [address] Apr, [facility] [address] [id number] [address] [place] [address], [place] [address] Apr, [facility] [address] [id number] [address] [place] [address], [place] [address] Apr, [facility] [address] [id number] [address] [place] [address], [place] [address] January, [facility] [address] [id number] [address] [place] [address], [place] [address] January, [facility] [address] [id number] [address] [place] [address], [place] [address] Dec, [facility] [address] [id number] [address] [place] [address], [place] [address] Dec, [facility] [address] [id number] [address] [place] [address], [place] [address] Nov, [facility] [address] [id number] [address] [place] [address], [place] [address] Nov, [facility] [address] [id number] [address] [place] [address], [place] [address] Nov, [facility] [address] [id number] [address] [place] [address], [place] [address] Nov, [facility] [address] [id number] [address] [place] [address], [place] [address] Oct, [facility] [address] [id number] [address] [place] [address], [place] [address] Oct, [facility] [address] [id number] [address] [place] [address], [place] [address] Oct, [facility] [address] [id number] [address] [place] [address], [place] [address] Sep, [facility] [address] [id number] [address] [place] [address], [place] [address] Sep, [facility] [address] [id number] [address] [place] [address], [place] [address] Aug, [facility] [address] [id number] [address] [place] [address], [place] [address] Aug, [facility] [address] [id number] [address] [place] [address], [place] [address] Jul, [facility] [address] [id number] [address] [place] [address], [place] [address] Jul, [facility] [address] [id number] [address] [place] [address], [place] [address] Jul, [facility] [address] [id number] [address] [place] [address], [place] [address] Jun, [facility] [address] [id number] [address] [place] [address], [place] [address] Jun, [facility] [address] [id number] [address] [place] [address] Jun, [facility] [address] [id number] [address] [place] [address] Jun, [facility] [address] [id number] [address] [place] [address], [place] [address] Jun, [facility] [address] [id number] [address] [place] [address], [place] [address] Jun, [facility] [address] [id number] [address] [place] [address], [place] [address] 29 Aug, 2010 [facility] [address] [id number] [address] [place] [address], [place] [address] 12 Aug, 2010 [facility] [address] [id number] [address] [place] [address], [place] [address] 08 Aug, 2010 [facility] [address] [id number] [address] [place] [address], [place] [address] 29 Jul, 2010 [facility] [address] [id number] [address] [place] [address], [place] [address] 27 Jul, 2010 [facility] [address] [id number] [address] [place] [address], [place] [address] Jul, [facility] [address] [id number] [address] [place] [address], [place] [address] 15 Jul, 2010 [facility] [address] [id number] [address] [place] [address], [place] [address] 15 Jul, 2010 [facility] [address] [id number] [address] [place] [address], [place] [address] 08 Jul, 2010 [facility] [address] [id number] [address] [place] [address], [place] [address] Jun, [facility] [address] [id number] [address] [place] [address], [place] [address] 10 Apr, 2010 [facility] [address] [id number] [address] [place] [address], [place] [address] Feb, [facility] [address] [id number] [address] [place] [address], [place] [address] 10 Oct, 2009 [facility] [address] [id number] [address] [place] [address], [place] [address] 13 Sep, 2009 [facility] [address] [id number] [address] [place] [address], [place] [address] 18 Aug, 2009 [facility] [address] [id number] [address] [place] [address], [place] [address] 18 Aug, 2009 [facility] [address] [id number] [address] [place] [address], [place] [address] Aug, [facility] [address] [facility] [id number] [address] [place] [id number] Jul, [facility] [address] [facility] [id number] [address] [place] [id number] Jun, IMMUNIZATIONS No Known Immunizations SOCIAL HISTORY [...]
--- OUTSIDE RECORDS SUMMARY | 2020-02-22 17:11 | XMS REPORT ---
Author Author Marion Alexander Doctor Organization [facility] Address Unknown Phone Unavailable Care Team Providers Care Manager House Name Role Phone Migration, Doctor Unavailable Unavailable PROBLEMS Type Condition ICD9-CM Code [id number]-SE Code Onset Dates Condition S tatus SNOMED Code Problem Acquired hypothyroidism E03.9 Active 299095557 Problem Gastro-esophageal reflux disease without esophagitis K21.9 Active 320984897 Problem Cervical disc disease M50.90 Active 627882762 Problem Dyspepsia R10.13 Active 061354503 Problem Migraine without aura and without status migrain osus, not intractable G43.009 Active 834491358 ALLERGIES No Information ENCOUNTERS Encounter Location Date Diagnosis [place] [id number] [place] [address] Nov, [facility] [address] [place] [id number] [address] [place] [address] Nov, Cervical disc disease M50.90 [place] [address] [place] [id number] [address] [place] [address] Oct, [facility] [address] [place] [id number] [address] [place] [address] Oct, Cervical disc disease M50.90 [facility] [address] [place] [id number] [address] [place] [address] Oct, Contusion of left knee, init ial encounter S80.02XA [place] [address] [place] [id number] [address] [place] [phone] Oct, Cervical disc disease M50.90 [facility] [address] [place] [id number] [address] [place] [address] Oct, [facility] [address] [place] [id number] [address] [place] [address] Oct, Acute pain of left knee M25. 562 [facility] [address] [id number] [address] [place] [phone] Sep, [facility] [address] [id number] [address] [place] [address] Sep, Cervical disc disease M50.90 [facility] [address] [id number] [address] [place] [address] Sep, Cervical disc disease M50.90 [facility] [address] [id number] [address] [place] [address] Aug, Cervical disc disease M50.90 [facility] [address] [id number] [address] [place] [address] Aug, [facility] [address] [id number] [address] [place] [address] Jul, Cervical disc disease M50.90 [facility] [address] [id number] [address] [place] [address] Jun, Cervical disc disease M50.90 [facility] [address] [id number] [address] [place] [address] May, [facility] [address] [id number] [address] [place] [address] May, Cervical disc disease M50.90 [facility] [address] [id number] [address] [place] [address] May, Acute cystitis with hematuri a N30.01 and UTI symptoms R39.9 [facility] [address] [id number] [address] [place] [address] May, [facility] [address] [id number] [address] [place] [address] Apr, Cervical disc disease M50.90 [facility] [address] [id number] [address] [place] [address] Apr, Cervical disc disease M50.90 ; Gastro-esophageal reflux disease without esophagitis K21.9 and Sinus headache R51 [facility] [address] [id number] [address] [place] [address] Apr, [facility] [address] [id number] [address] [place] [address] Apr, Cervical disc disease M50.90 [facility] [address] [id number] [address] [place] [address] Mar, [facility] [address] [id number] [address] [place] [address] Mar, Cervical disc disease M50.90 [facility] [address] [id number] [address] [place] [address] Feb, [address] [id number] [address] Feb, Cervical disc disease M50.[address] [id number], [place] [address] January, [facility] [address] [facility] [id number] [address] [place] [address] January, Cervical disc disease M50.90 [facility] [address] [facility] [id number] [address] [place] [address] January, Cervical disc disease M50.90 [facility] [address] [id number] [address] [place] [address] Dec, Cervical disc disease M50.90 [facility] [address] [id number] [address] [place] [address] Dec, Cervical disc disease M50.90 [facility] [address] [id number] [address] [place] [address] Dec, Cervical disc disease M50.90 [facility] [address] [id number] [address] [place] [address] Dec, Cervical disc disease M50.90 ; Acquired hypothyroidism E03.9 and Migraine without aura and without status migrainosus, not intractable G43.009 [facility] [address] [facility] [id number] [address] [place] [address] Nov, [facility] [address] [facility] [id number] [address] [place] [address] Nov, Cervical disc disease M50.90 [facility] [address] [facility] [id number] [address] [place] [address] Oct, Cervical disc disease M50.90 [facility] [address] [id number] [address] [place] [address] Sep, [facility] [address] [facility] [id number] [address] [place] [address] Sep, Cervical disc disease M50.90 [facility] [address] [facility] [id number] [address] [place] [address] Aug, Cervical disc disease M50.90 [facility] [address] [facility] [id number] [address] [place] [address] Jul, Cervical disc disease M50.90 [facility] [address] [facility] [id number] [address] [place] [address] Jun, Acute recurrent pansinusitis J01.41 and Cervical disc disease M50.90 [facility] [address] [facility] [id number] [address] [place] [address] Jun, Cervical disc disease M50.90 [facility] [address] [facility] [id number] [address] [place] [address] May, Cervical disc disease M50.90 [facility] [address] [facility] [id number] [address] [place] [address] Apr, Cervical disc disease M50.90 [facility] [address] [facility] [id number] [address] [place] [address] Mar, Cervical disc disease M50.90 [facility] [address] [id number] [address] [place] [address] Mar, [facility] [address] [id number] [address] [place] [address] Mar, Cervical disc disease M50.90 [facility] [address] [id number] [address] [place] [address] Feb, Cervical disc disease M50.90 [facility] [address] [id number] [address] [place] [address] January, Cervical disc disease M50.90 [facility] [address] [id number] [address] [place] [address] Dec, [facility] [address] [id number] [address] [place] [address] Dec, Cervical disc disease M50.90 [facility] [address] [id number] [address] [place] [address] Nov, Cervical disc disease M50.90 [facility] [address] [id number] [address] [place] [address] Nov, Cervical disc disease M50.90 [facility] [address] [facility] [id number] [address] [place] [address] Oct, Cervical disc disease M50.90 [facility] [address] [facility] [id number] [address] [place] [address] Oct, Cervical disc disease M50.90 and Acute non-recurrent maxillary sinusitis J01.00 [facility] [address] [id number] [address] [place] [address] Sep, Cervical disc disease M50.90 [facility] [address] [facility] [id number] [address] [place] [address] Sep, [facility] [address] [facility] [id number] [address] [place] [address] Sep, Fatigue, unspecified type R5 3.83 and Cough R05 [facility] [address] [facility] [id number] [address] [place] [address] Aug, Cervical disc disease M50.90 [facility] [address] [facility] [id number] [address] [place] [address] Aug, Sore throat J02.9 ; Canker s ore K12.0 and History of anemia Z86.2 [facility] [address] [facility] [id number] [address] [place] [address] Jul, Cervical disc disease M50.90 [facility] [address] [facility] [id number] [address] [place] [address] Jun, Cervical disc disease M50.90 [facility] [address] [facility] [id number] [address] [place] [address] Jun, Cervical disc disease M50.90 [facility] [address] [facility] [id number] [address] [place] [address] May, Cervical disc disease M50.90 [facility] [address] [facility] [id number] [address] [place] [address] Apr, Cervical disc disease M50.90 [facility] [address] [facility] [id number] [address] [place] [address] Apr, [facility] [address] [facility] [id number] [address] [place] [address] Feb, Cervical disc disease M50.90 [facility] [address] [facility] [id number] [address] [place] [address] January, Cervical disc disease M50.90 [facility] [address] [facility] [id number] [address] [place] [address] Nov, [facility] [address] [facility] [id number] [address] [place] [address] Nov, Cervical disc disease M50.90 [facility] [address] [facility] [id number] [address] [place] [address] Nov, Acute cystitis with hematuri a N30.01 and Dysuria R30.0 [facility] [address] [facility] [id number] [address] [place] [address] Oct, Cervical disc disease M50.90 and Acute non-recurrent frontal sinusitis J01.10 [facility] [address] [facility] [id number] [address] [place] [address] Sep, Neck pain M54.2 [facility] [address] [id number] [address] [place] [address] Sep, [facility] [address] [id number] [address] [place] [address] Aug, Cervical disc disease M50.90 [facility] [address] [facility] [id number] [address] [place] [address] Jul, [facility] [address] [place] [id number] [address] [place] [address] Jun, [facility] [address] [facility] [id number] [address] [place] [address] May, [facility] [address] [place] [id number] [address] [place] [address] May, Screening for diabetes melli tus Z13.1 ; Chronic fatigue R53.82 and Edema, unspecified type R60.9 [facility] [address] [facility] [id number] [address] [place] [address] Apr, Neck pain M54.2 [facility] [address] [id number] [address] [place] [address] Mar, [facility] [address] [facility] [id number] [address] [place] [id number] Mar, Neck pain M54.2 [facility] [address] [facility] [id number] [address] [place] [address] Feb, Cervical disc disease M50.90 [facility] [address] [facility] [id number] [address] [place] [id number] Feb, Cervical disc disease M50.90 [facility] [address] [id number] [address] [place] [address] January, [facility] [address] [id number] [address] [place] [address] January, [facility] [address] [id number] [address] [place] [address] January, Cervical disc disease M50.90 [facility] [address] [id number] [address] [place] [address] January, [facility] [address] [id number] [address] [place] [address] January, [facility] [address] [id number] [address] [place] [address] Dec, Cervical disc disease M50.90 [facility] [address] [id number] [address] [place] [address] Nov, Cervical disc disease M50.90 [facility] [address] [id number] [address] [place] [address] Oct, Cervical disc disease M50.90 [facility] [address] [id number] [address] [place] [address] Sep, Cervical disc disease M50.90 [facility] [address] [id number] [address] [place] [id number] Aug, Dental caries K02.9 and Enco unter for dental examination Z01.20 [facility] [address] [id number] [address] [place] [address] Aug, [facility] [address] [id number] [address] [place] [address] Aug, [facility] [address] [id number] [address] [place] [id number] 08 Aug, 2015 Encounter for dental examina tion Z01.20 [facility] [address] [id number] [address] [place] [address] Jul, [facility] [address] [id number] [address] [place] [address] Jun, Sinusitis J32.9 and Cervical disc disease M50.90 [facility] [address] [id number] [address] [place] [phone] Jun, [facility] [address] [id number] [address] [place] [id number] 24 May, 2015 [facility] [address] [id number] [address] [place] [phone] May, [facility] [address] [id number] [address] [place] [phone] May, [facility] [address] [id number] [address] [place] [address] May, [facility] [address] [id number] [address] [place] [address] Apr, Cervical spondylosis without myelopathy 721.0 [facility] [address] [id number] [address] [place] [address] Mar, [facility] [address] [id number] [address] [place] [phone] January, Cervical spondylosis without myelopathy 721.0 [facility] [address] [id number] [address] [place] [phone] Dec, [facility] [address] [id number] [address] [place] [phone] 14 Dec, 2014 [facility] [address] [id number] [address] [place] [phone] 13 Dec, 2014 [facility] [address] [id number] [address] [place] [phone] Nov, [facility] [address] [id number] [address] [place] [address], [place] [address] Nov, [facility] [address] [id number] [address] [place] [address], [place] [address] Oct, 2014 [facility] [address] [id number] [address] [place] [address], [place] [address] Oct, 2014 [facility] [address] [id number] [address] [place] [address], [place] [address] Oct, 2014 [facility] [address] [id number] [address] [place] [address], [place] [address] Oct, 2014 [facility] [address] [id number] [address] [place] [address], [place] [address] Oct, [facility] [address] [id number] [address] [place] [address], [place] [address] Oct, [facility] [address] [id number] [address] [place] [address], [place] [address] Oct, [facility] [address] [id number] [address] [place] [address], [place] [address] Oct, [facility] [address] [id number] [address] [place] [address], [place] [address] Oct, [facility] [address] [id number] [address] [place] [address], [place] [address] Oct, [facility] [address] [id number] [address] [place] [phone] Sep, [facility] [address] [id number] [address] [place] [address], [place] [address] Sep, [facility] [address] [id number] [address] [place] [address], [place] [address] Sep, [facility] [address] [id number] [address] [place] [address], [place] [address] Sep, [facility] [address] [id number] [address] [place] [phone] Sep, [facility] [address] [id number] [address] [place] [address], [place] [address] Sep, [facility] [address] [id number] [address] [place] [address], [place] [address] Sep, [facility] [address] [id number] [address] [place] [address], [place] [address] Sep, [facility] [address] [id number] [address] [place] [address], [place] [address] Sep, [facility] [address] [id number] [address] [place] [address], [place] [address] Aug, [facility] [address] [id number] [address] [place] [address], [place] [address] Aug, [facility] [address] [id number] [address] [place] [address], [place] [address] Aug, [facility] [address] [id number] [address] [place] [address], [place] [address] Aug, [facility] [address] [id number] [address] [place] [address], [place] [address] Jul, [facility] [address] [id number] [address] [place] [address], [place] [address] Jul, [facility] [address] [id number] [address] [place] [address], [place] [address] Jul, [facility] [address] [id number] [address] [place] [address], [place] [address] Jul, [facility] [address] [id number] [address] [place] [address], [place] [address] Jul, [facility] [address] [id number] [address] [place] [address], [place] [address] Jul, [facility] [address] [id number] [address] [place] [address], [place] [address] Jul, [facility] [address] [id number] [address] [place] [address], [place] [address] Jul, [facility] [address] [id number] [address] [place] [address], [place] [address] 27 Jun, 2014 [facility] [address] [id number] [address] [place] [address], [place] [address] 27 Jun, 2014 [facility] [address] [id number] [address] [place] [address], [place] [address] 20 Jun, 2014 [facility] [address] [id number] [address] [place] [address], [place] [address] 20 Jun, 2014 [facility] [address] [id number] [address] [place] [address], [place] [address] 16 Jun, 2014 [facility] [address] [id number] [address] [place] [address], [place] [address] 15 Jun, 2014 [facility] [address] [id number] [address] [place] [address], [place] [address] 15 Jun, 2014 [facility] [address] [id number] [address] [place] [address], [place] [address] 14 Jun, 2014 [facility] [address] [id number] [address] [place] [address], [place] [address] 14 Jun, 2014 [facility] [address] [id number] [address] [place] [address], [place] [address] 11 Jun, 2014 [facility] [address] [id number] [address] [place] [address], [place] [address] 11 Jun, 2014 [facility] [address] [id number] [address] [place] [address], [place] [address] 24 May, 2013 [facility] [address] [id number] [address] [place] [address], [place] [address] 24 May, 2013 [facility] [address] [id number] [address] [place] [address], [place] [address] 08 May, 2013 [facility] [address] [id number] [address] [place] [address], [place] [address] May, [facility] [address] [id number] [address] [place] [address], [place] [address] May, [facility] [address] [id number] [address] [place] [address], [place] [address] Apr, [facility] [address] [id number] [address] [place] [address], [place] [address] Apr, [facility] [address] [id number] [address] [place] [address], [place] [address] Apr, [facility] [address] [id number] [address] [place] [address], [place] [address] Apr, [facility] [address] [id number] [address] [place] [address], [place] [address] Apr, [facility] [address] [id number] [address] [place] [address], [place] [address] Apr, [facility] [address] [id number] [address] [place] [address], [place] [address] Mar, [facility] [address] [id number] [address] [place] [address], [place] [address] Mar, [facility] [address] [id number] [address] [place] [address], [place] [address] Mar, [facility] [address] [id number] [address] [place] [address], [place] [address] Mar, [facility] [address] [id number] [address] [place] [address], [place] [address] Mar, [facility] [address] [id number] [address] [place] [address], [place] [address] Mar, [facility] [address] [id number] [address] [place] [address], [place] [address] Feb, [facility] [address] [id number] [address] [place] [address], [place] [address] Feb, [facility] [address] [id number] [address] [place] [address], [place] [address] Feb, [facility] [address] [id number] [address] [place] [address], [place] [address] Feb, [facility] [address] [id number] [address] [place] [address], [place] [address] Feb, [facility] [address] [id number] [address] [place] [address], [place] [address] Feb, [facility] [address] [id number] [address] [place] [address], [place] [address] Feb, [facility] [address] [id number] [address] [place] [address], [place] [address] Feb, [facility] [address] [id number] [address] [place] [address], [place] [address] January, [facility] [address] [id number] [address] [place] [address], [place] [address] January, [facility] [address] [id number] [address] [place] [address], [place] [address] January, [facility] [address] [id number] [address] [place] [address], [place] [address] January, [facility] [address] [id number] [address] [place] [address], [place] [address] January, [facility] [address] [id number] [address] [place] [address], [place] [address] January, [facility] [address] [id number] [address] [place] [address], [place] [address] January, [facility] [address] [id number] [address] [place] [address], [place] [address] January, [facility] [address] [id number] [address] [place] [address], [place] [address] Dec, [facility] [address] [id number] [address] [place] [address], [place] [address] Dec, [facility] [address] [id number] [facility] [place] [address] Dec, [facility] [address] [id number] [facility] [place] [address] Dec, [facility] [address] [id number] [facility] [place] [address] Dec, [facility] [address] [id number] [address] [place] [address], [place] [address] Dec, [facility] [address] [id number] [address] [place] [address], [place] [address] Nov, [facility] [address] [id number] [address] [place] [address], [place] [address] Nov, [facility] [address] [id number] [address] [place] [address], [place] [address] Nov, [facility] [address] [id number] [address] [place] [address], [place] [address] Nov, [facility] [address] [id number] [address] [place] [address], [place] [address] Nov, [facility] [address] [id number] [address] [place] [address], [place] [address] Nov, [facility] [address] [id number] [address] [place] [address], [place] [address] Nov, [facility] [address] [id number] [address] [place] [address], [place] [address] Nov, [facility] [address] [id number] [address] [place] [address], [place] [address] Oct, [facility] [address] [id number] [address] [place] [address], [place] [address] Oct, [facility] [address] [id number] [address] [place] [address], [place] [address] Sep, [facility] [address] [id number] [address] [place] [address], [place] [address] Sep, [facility] [address] [id number] [address] [place] [address], [place] [address] Sep, [facility] [address] [id number] [address] [place] [address], [place] [address] Sep, [facility] [address] [id number] [address] [place] [address], [place] [address] Aug, [facility] [address] [id number] [address] [place] [address], [place] [address] Aug, [facility] [address] [id number] [address] [place] [address], [place] [address] Aug, [facility] [address] [id number] [address] [place] [address], [place] [address] Aug, [facility] [address] [id number] [address] [place] [address], [place] [address] Jul, [facility] [address] [id number] [address] [place] [address], [place] [address] Jul, [facility] [address] [id number] [address] [place] [address], [place] [address] Jul, [facility] [address] [id number] [address] [place] [address], [place] [address] Jul, [facility] [address] [id number] [address] [place] [address], [place] [address] Jul, [facility] [address] [id number] [address] [place] [address] Jul, [facility] [address] [id number] [address] [place] [address], [place] [address] Jul, [facility] [address] [id number] [address] [place] [address], [place] [address] Jul, [facility] [address] [id number] [address] [place] [address], [place] [address] Jul, [facility] [address] [id number] [address] [place] [address], [place] [address] Jul, [facility] [address] [id number] [address] [place] [address], [place] [address] Jul, [facility] [address] [id number] [address] [place] [address], [place] [address] Jul, [facility] [address] [id number] [address] [place] [address], [place] [address] Jun, [facility] [address] [id number] [address] [place] [address], [place] [address] Jun, [facility] [address] [id number] [address] [place] [address], [place] [address] Jun, [facility] [address] [id number] [address] [place] [address], [place] [address] Jun, [facility] [address] [id number] [address] [place] [address], [place] [address] Jun, [facility] [address] [id number] [address] [place] [address], [place] [address] Jun, [facility] [address] [id number] [address] [place] [address], [place] [address] Jun, [facility] [address] [id number] [address] [place] [address], [place] [address] Jun, [facility] [address] [id number] [address] [place] [address], [place] [address] 15 May, 2013 [facility] [address] [id number] [address] [place] [address], [place] [address] 05 May, 2013 [facility] [address] [id number] [address] [place] [address], [place] [address] May, [facility] [address] [id number] [address] [place] [address], [place] [address] Apr, [facility] [address] [id number] [address] [place] [address], [place] [address] Apr, [facility] [address] [id number] [address] [place] [address], [place] [address] Mar, [facility] [address] [id number] [address] [place] [address], [place] [address] Mar, [facility] [address] [id number] [address] [place] [address], [place] [address] Feb, [facility] [address] [id number] [address] [place] [address], [place] [address] January, [facility] [address] [id number] [address] [place] [address], [place] [address] January, [facility] [address] [id number] [address] [place] [address], [place] [address] January, [facility] [address] [id number] [address] [place] [address], [place] [address] January, [facility] [address] [id number] [address] [place] [address], [place] [address] January, [facility] [address] [id number] [address] [place] [address], [place] [address] Dec, [facility] [address] [id number] [address] [place] [address], [place] [address] Dec, [facility] [address] [id number] [address] [place] [address], [place] [address] Dec, [facility] [address] [id number] [address] [place] [address], [place] [address] Nov, [facility] [address] [id number] [address] [place] [address], [place] [address] Oct, [facility] [address] [id number] [address] [place] [address], [place] [address] Oct, [facility] [address] [id number] [address] [place] [address], [place] [address] Oct, [facility] [address] [id number] [address] [place] [address], [place] [address] 18 Sep, 2012 [facility] [address] [id number] [address] [place] [address], [place] [address] 16 Sep, 2012 [facility] [address] [id number] [address] [place] [address], [place] [address] 14 Aug, 2012 [facility] [address] [id number] [address] [place] [address], [place] [address] 14 Aug, 2012 [facility] [address] [id number] [address] [place] [address], [place] [address] 11 Aug, 2012 [facility] [address] [id number] [address] [place] [address], [place] [address] 11 Aug, 2012 [facility] [address] [id number] [address] [place] [address], [place] [address] Jul, [facility] [address] [id number] [address] [place] [address], [place] [address] Jul, [facility] [address] [id number] [address] [place] [address], [place] [address] Jul, [facility] [address] [id number] [address] [place] [address], [place] [address] Jul, [facility] [address] [id number] [address] [place] [address], [place] [address] Jul, [facility] [address] [id number] [address] [place] [address], [place] [address] 15 Jun, 2012 [facility] [address] [id number] [address] [place] [address], [place] [address] 15 Jun, 2012 [facility] [address] [id number] [address] [place] [address], [place] [address] 10 Jun, 2012 [facility] [address] [id number] [address] [place] [address], [place] [address] 10 Jun, 2012 [facility] [address] [id number] [address] [place] [address], [place] [address] 10 May, 2012 [facility] [address] [id number] [address] [place] [address], [place] [address] Apr, [facility] [address] [id number] [address] [place] [address], [place] [address] Apr, [facility] [address] [id number] [address] [place] [address], [place] [address] Apr, [facility] [address] [id number] [address] [place] [address], [place] [address] Apr, [facility] [address] [id number] [address] [place] [address], [place] [address] January, [facility] [address] [id number] [address] [place] [address], [place] [address] January, [facility] [address] [id number] [address] [place] [address], [place] [address] Dec, [facility] [address] [id number] [address] [place] [address], [place] [address] Dec, [facility] [address] [id number] [address] [place] [address], [place] [address] Nov, [facility] [address] [id number] [address] [place] [address], [place] [address] Nov, [facility] [address] [id number] [address] [place] [address], [place] [address] Nov, [facility] [address] [id number] [address] [place] [address], [place] [address] Nov, [facility] [address] [id number] [address] [place] [address], [place] [address] Oct, [facility] [address] [id number] [address] [place] [address], [place] [address] Oct, [facility] [address] [id number] [address] [place] [address], [place] [address] Oct, [facility] [address] [id number] [address] [place] [address], [place] [address] Sep, [facility] [address] [id number] [address] [place] [address], [place] [address] Sep, [facility] [address] [id number] [address] [place] [address], [place] [address] Aug, [facility] [address] [id number] [address] [place] [address], [place] [address] Aug, [facility] [address] [id number] [address] [place] [address], [place] [address] Jul, [facility] [address] [id number] [address] [place] [address], [place] [address] Jul, [facility] [address] [id number] [address] [place] [address], [place] [address] Jul, [facility] [address] [id number] [address] [place] [address], [place] [address] Jun, [facility] [address] [id number] [address] [place] [address], [place] [address] Jun, [facility] [address] [id number] [address] [place] [address], [place] [address] Jun, [facility] [address] [id number] [address] [place] [address], [place] [address] Jun, [facility] [address] [id number] [address] [place] [address], [place] [address] Jun, [facility] [address] [id number] [address] [place] [address], [place] [address] Jun, [facility] [address] [id number] [address] [place] [address], [place] [address] Aug, [facility] [address] [id number] [address] [place] [address], [place] [address] Aug, [facility] [address] [id number] [address] [place] [address], [place] [address] Aug, [facility] [address] [id number] [address] [place] [address], [place] [address] 29 Jul, 2010 [facility] [address] [id number] [address] [place] [address], [place] [address] 27 Jul, 2010 [facility] [address] [id number] [address] [place] [address], [place] [address] Jul, [facility] [address] [id number] [address] [place] [address], [place] [address] 15 Jul, 2010 [facility] [address] [id number] [address] [place] [address], [place] [address] 15 Jul, 2010 [facility] [address] [id number] [address] [place] [address], [place] [address] 08 Jul, 2010 [facility] [address] [id number] [address] [place] [address], [place] [address] Jun, [facility] [address] [id number] [address] [place] [address], [place] [address] Apr, [facility] [address] [id number] [address] [place] [address], [place] [address] Feb, [facility] [address] [id number] [address] [place] [address], [place] [address] 10 Oct, 2009 [facility] [address] [id number] [address] [place] [address], [place] [address] Sep, [facility] [address] [id number] [address] [place] [address], [place] [address] Aug, [facility] [address] [id number] [address] [place] [address], [place] [address] Aug, [facility] [address] [id number] [address] [place] [address], [place] [address] Aug, [facility] [address] [id number] [address] [place] [address], [place] [address] Jul, [facility] [address] [id number] [address] [place] [address], [place] [address] Jun, IMMUNIZATIONS No Known Immunizations SOCIAL HISTORY [...]
--- OUTSIDE RECORDS SUMMARY | 2020-02-22 17:11 | XMS REPORT ---
Author Author Marion Alexander Doctor Organization [facility] Address Unknown Phone Unavailable Care Team Providers Care Order Packer Name Role Phone Migration, Doctor Unavailable Unavailable PROBLEMS Type Condition ICD9-CM Code MSQ90-YO Code Onset Dates Condition S tatus SNOMED Code Problem Acquired hypothyroidism E03.9 Active 188445968 Problem Gastro-esophageal reflux disease without esophagitis K21.9 Active 320862248 Problem Cervical disc disease M50.90 Active 374413268 Problem Dyspepsia R10.13 Active 839097670 Problem Migraine without aura and without status migrain osus, not intractable G43.009 Active [id number] ALLERGIES No Information ENCOUNTERS Encounter Location Date Diagnosis [place] [address] [id number] [place] [address] Nov, [facility], [place] [address] [place] [id number] [address] [place] [address] Nov, Cervical disc disease M50.90 [place] [address] [place] [id number] [address] [place] [address] Oct, [facility], [place] [address] [place] [id number] [address] [place] [address] Oct, Cervical disc disease M50.90 [facility], [place] [address] [place] [id number] [address] [place] [address] Oct, Contusion of left knee, init ial encounter S80.02XA [place] [address] [place] [id number] [address] [place] [address] Oct, Cervical disc disease M50.90 [facility] [address] [place] [id number] [address] [place] [address] Oct, [facility] [address] [place] [id number] [address] [place] [address] Oct, Acute pain of left knee M25. 562 [facility], [place] [address] [id number] [address] [place] [address] Sep, [facility], [place] [address] [id number] [address] [place] [address] Sep, Cervical disc disease M50.90 [facility], [place] [address] [id number] [address] [place] [address] Sep, Cervical disc disease M50.90 [facility], [place] [address] [id number] [address] [place] [address] Aug, Cervical disc disease M50.90 [facility], [place] [address] [id number] [address] [place] [address] Aug, [facility], [place] [address] [id number] [address] [place] [address] Jul, Cervical disc disease M50.90 [facility], [place] [address] [id number] [address] [place] [address] Jun, Cervical disc disease M50.90 [facility], [place] [address] [id number] [address] [place] [address] May, [facility], [place] [address] [id number] [address] [place] [address] May, Cervical disc disease M50.90 [facility] [address] [id number] [address] [place] [address] May, Acute cystitis with hematuri a N30.01 and UTI symptoms R39.9 [facility], [place] [address] [id number] [address] [place] [address] May, [facility], [place] [address] [id number] [address] [place] [address] Apr, Cervical disc disease M50.90 [facility], [place] [address] [id number] [address] [place] [address] Apr, Cervical disc disease M50.90 ; Gastro-esophageal reflux disease without esophagitis K21.9 and Sinus headache R51 [facility], [place] [address] [id number] [address] [place] [address] Apr, [facility], [place] [address] [id number] [address] [place] [address] Apr, Cervical disc disease M50.90 [facility], [place] [address] [id number] [address] [place] [address] Mar, [facility], [place] [address] [id number] [address] [place] [address] Mar, Cervical disc disease M50.90 [facility], [place] [address] [id number] [address] [place] [address] Feb, [address] [address] Feb, Cervical disc disease M50.[address] [place] [address] January, [facility], [place] [address] [facility] [id number] [address] [place] [address] January, Cervical disc disease M50.90 [facility], [place] [address] [facility] [id number] [address] [place] [address] January, Cervical disc disease M50.90 [facility], [place] [address] [id number] [address] [place] [address] Dec, Cervical disc disease M50.90 [facility], [place] [address] [id number] [address] [place] [address] Dec, Cervical disc disease M50.90 [facility], [place] [address] [id number] [address] [place] [address] Dec, Cervical disc disease M50.90 [facility], [place] [address] [id number] [address] [place] [address] Dec, Cervical disc disease M50.90 ; Acquired hypothyroidism E03.9 and Migraine without aura and without status migrainosus, not intractable G43.009 [facility], [place] [address] [facility] [id number] [address] [place] [address] Nov, [facility], [place] [address] [facility] [id number] [address] [place] [address] Nov, Cervical disc disease M50.90 [facility], [place] [address] [facility] [id number] [address] [place] [address] Oct, Cervical disc disease M50.90 [facility], [place] [address] [id number] [address] [place] [address] Sep, [facility], [place] [address] [facility] [id number] [address] [place] [address] Sep, Cervical disc disease M50.90 [facility], [place] [address] [facility] [id number] [address] [place] [address] Aug, Cervical disc disease M50.90 [facility], [place] [address] [facility] [id number] [address] [place] [address] Jul, Cervical disc disease M50.90 [facility], [place] [address] [facility] [id number] [address] [place] [address] Jun, Acute recurrent pansinusitis J01.41 and Cervical disc disease M50.90 [facility], [place] [address] [facility] [id number] [address] [place] [address] Jun, Cervical disc disease M50.90 [facility], [place] [address] [facility] [id number] [address] [place] [address] May, Cervical disc disease M50.90 [facility], [place] [address] [facility] [id number] [address] [place] [address] Apr, Cervical disc disease M50.90 [facility], [place] [address] [facility] [id number] [address] [place] [address] Mar, Cervical disc disease M50.90 [facility], [place] [address] [id number] [address] [place] [address] Mar, [facility], [place] [address] [id number] [address] [place] [address] Mar, Cervical disc disease M50.90 [facility], [place] [address] [id number] [address] [place] [address] Feb, Cervical disc disease M50.90 [facility], [place] [address] [id number] [address] [place] [address] January, Cervical disc disease M50.90 [facility], [place] [address] [id number] [address] [place] [address] Dec, [facility], [place] [address] [id number] [address] [place] [address] Dec, Cervical disc disease M50.90 [facility], [place] [address] [id number] [address] [place] [address] Nov, Cervical disc disease M50.90 [facility], [place] [address] [id number] [address] [place] [address] Nov, Cervical disc disease M50.90 [facility], [place] [address] [facility] [id number] [address] [place] [address] Oct, Cervical disc disease M50.90 [facility], [place] [address] [facility] [id number] [address] [place] [address] Oct, Cervical disc disease M50.90 and Acute non-recurrent maxillary sinusitis J01.00 [facility], [place] [address] [id number] [address] [place] [address] Sep, Cervical disc disease M50.90 [facility] [address] [facility] [id number] [address] [place] [address] Sep, [facility] [address] [facility] [id number] [address] [place] [address] Sep, Fatigue, unspecified type R5 3.83 and Cough R05 [facility] [address] [facility] [id number] [address] [place] [address] Aug, Cervical disc disease M50.90 [facility] [address] [facility] [id number] [address] [place] [address] Aug, Sore throat J02.9 ; Canker s ore K12.0 and History of anemia Z86.2 [facility], [place] [address] [facility] [id number] [address] [place] [address] Jul, Cervical disc disease M50.90 [facility], [place] [address] [facility] [id number] [address] [place] [address] Jun, Cervical disc disease M50.90 [facility], [place] [address] [facility] [id number] [address] [place] [address] Jun, Cervical disc disease M50.90 [facility], [place] [address] [facility] [id number] [address] [place] [address] May, Cervical disc disease M50.90 [facility], [place] [address] [facility] [id number] [address] [place] [address] Apr, Cervical disc disease M50.90 [facility], [place] [address] [facility] [id number] [address] [place] [address] Apr, [facility], [place] [address] [facility] [id number] [address] [place] [address] Feb, Cervical disc disease M50.90 [facility], [place] [address] [facility] [id number] [address] [place] [address] January, Cervical disc disease M50.90 [facility], [place] [address] [facility] [id number] [address] [place] [address] Nov, [facility], [place] [address] [facility] [id number] [address] [place] [address] Nov, Cervical disc disease M50.90 [facility] [address] [facility] [id number] [address] [place] [address] Nov, Acute cystitis with hematuri a N30.01 and Dysuria R30.0 [facility], [place] [address] [facility] [id number] [address] [place] [address] Oct, Cervical disc disease M50.90 and Acute non-recurrent frontal sinusitis J01.10 [facility], [place] [address] [facility] [id number] [address] [place] [address] Sep, Neck pain M54.2 [facility], [place] [address] [id number] [address] [place] [address] Sep, [facility], [place] [address] [id number] [address] [place] [address] Aug, Cervical disc disease M50.90 [facility], [place] [address] [facility] [id number] [address] [place] [address] Jul, [facility], [place] [address] [place] [id number] [address] [place] [address] Jun, [facility], [place] [address] [facility] [id number] [address] [place] [address] May, [facility], [place] [address] [place] [id number] [address] [place] [address] May, Screening for diabetes melli tus Z13.1 ; Chronic fatigue R53.82 and Edema, unspecified type R60.9 [facility], [place] [address] [facility] [id number] [address] [place] [address] Apr, Neck pain M54.2 [facility], [place] [address] [id number] [address] [place] [address] Mar, [facility], [place] [address] [facility] [id number] [address] [place] [address] Mar, Neck pain M54.2 [facility], [place] [address] [facility] [id number] [address] [place] [address] Feb, Cervical disc disease M50.90 [facility], [place] [address] [facility] [id number] [address] [place] [address] Feb, Cervical disc disease M50.90 [facility], [place] [address] [id number] [address] [place] [address] January, [facility], [place] [address] [id number] [address] [place] [address] January, [facility], [place] [address] [id number] [address] [place] [address] January, Cervical disc disease M50.90 [facility], [place] [address] [id number] [address] [place] [address] January, [facility], [place] [address] [id number] [address] [place] [address] January, [facility], [place] [address] [id number] [address] [place] [address] Dec, Cervical disc disease M50.90 [facility], [place] [address] [id number] [address] [place] [address] Nov, Cervical disc disease M50.90 [facility], [place] [address] [id number] [address] [place] [address] Oct, Cervical disc disease M50.90 [facility], [place] [address] [id number] [address] [place] [address] Sep, Cervical disc disease M50.90 [facility] [address] [id number] [address] [place] [id number] Aug, Dental caries K02.9 and Enco unter for dental examination Z01.20 [facility], [place] [address] [id number] [address] [place] [address] Aug, [facility], [place] [address] [id number] [address] [place] [address] Aug, [facility] [address] [id number] [address] [place] [id number] 08 Aug, 2015 Encounter for dental examina tion Z01.20 [facility], [place] [address] [id number] [address] [place] [address] Jul, [facility], [place] [address] [id number] [address] [place] [address] Jun, Sinusitis J32.9 and Cervical disc disease M50.90 [facility], [place] [address] [id number] [address] [place] [address] Jun, [facility], [place] [address] [id number] [address] [place] [id number] 24 May, 2015 [facility], [place] [address] [id number] [address] [place] [address] May, [facility], [place] [address] [id number] [address] [place] [address] May, [facility], [place] [address] [id number] [address] [place] [address] May, [facility], [place] [address] [id number] [address] [place] [address] Apr, Cervical spondylosis without myelopathy 721.0 [facility], [place] [address] [id number] [address] [place] [address] Mar, [facility], [place] [address] [id number] [address] [place] [address] January, Cervical spondylosis without myelopathy 721.0 [facility], [place] [address] [id number] [address] [place] [address] Dec, [facility], [place] [address] [id number] [address] [place] [id number] 14 Dec, 2014 [facility], [place] [address] [id number] [address] [place] [id number] 13 Dec, 2014 [facility], [place] [address] [id number] [address] [place] [address] Nov, [facility] [address] [id number] [address] [place] [address], [place] [address] Nov, [facility] [address] [id number] [address] [place] [address], [place] [address] Oct, 2014 [facility] [address] [id number] [address] [place] [address], [place] [address] Oct, 2014 [facility] [address] [id number] [address] [place] [address], [place] [address] Oct, 2014 [facility] [address] [id number] [address] [place] [address], [place] [address] Oct, 2014 [facility] [address] [id number] [address] [place] [address], [place] [address] Oct, [facility] [address] [id number] [address] [place] [address], [place] [address] Oct, [facility] [address] [id number] [address] [place] [address], [place] [address] Oct, [facility] [address] [id number] [address] [place] [address], [place] [address] Oct, [facility] [address] [id number] [address] [place] [address], [place] [address] Oct, [facility] [address] [id number] [address] [place] [address], [place] [address] Oct, [facility] [address] [id number] [address] [place] [address] Sep, [facility] [address] [id number] [address] [place] [address], [place] [address] Sep, [facility] [address] [id number] [address] [place] [address], [place] [address] Sep, [facility] [address] [id number] [address] [place] [address], [place] [address] Sep, [facility] [address] [id number] [address] [place] [address] Sep, [facility] [address] [id number] [address] [place] [address], [place] [address] Sep, [facility] [address] [id number] [address] [place] [address], [place] [address] Sep, [facility] [address] [id number] [address] [place] [address], [place] [address] Sep, [facility] [address] [id number] [address] [place] [address], [place] [address] Sep, [facility] [address] [id number] [address] [place] [address], [place] [address] Aug, [facility] [address] [id number] [address] [place] [address], [place] [address] Aug, [facility] [address] [id number] [address] [place] [address], [place] [address] Aug, [facility] [address] [id number] [address] [place] [address], [place] [address] Aug, [facility] [address] [id number] [address] [place] [address], [place] [address] Jul, [facility] [address] [id number] [address] [place] [address], [place] [address] Jul, [facility] [address] [id number] [address] [place] [address], [place] [address] Jul, [facility] [address] [id number] [address] [place] [address], [place] [address] Jul, [facility] [address] [id number] [address] [place] [address], [place] [address] Jul, [facility] [address] [id number] [address] [place] [address], [place] [address] Jul, [facility] [address] [id number] [address] [place] [address], [place] [address] Jul, [facility] [address] [id number] [address] [place] [address], [place] [address] Jul, [facility] [address] [id number] [address] [place] [address], [place] [address] 27 Jun, 2014 [facility] [address] [id number] [address] [place] [address], [place] [address] 27 Jun, 2014 [facility] [address] [id number] [address] [place] [address], [place] [address] 20 Jun, 2014 [facility] [address] [id number] [address] [place] [address], [place] [address] 20 Jun, 2014 [facility] [address] [id number] [address] [place] [address], [place] [address] 16 Jun, 2014 [facility] [address] [id number] [address] [place] [address], [place] [address] 15 Jun, 2014 [facility] [address] [id number] [address] [place] [address], [place] [address] 15 Jun, 2014 [facility] [address] [id number] [address] [place] [address], [place] [address] 14 Jun, 2014 [facility] [address] [id number] [address] [place] [address], [place] [address] 14 Jun, 2014 [facility] [address] [id number] [address] [place] [address], [place] [address] 11 Jun, 2014 [facility] [address] [id number] [address] [place] [address], [place] [address] 11 Jun, 2014 [facility] [address] [id number] [address] [place] [address], [place] [address] 24 May, 2013 [facility] [address] [id number] [address] [place] [address], [place] [address] 24 May, 2013 [facility] [address] [id number] [address] [place] [address], [place] [address] 08 May, 2013 [facility] [address] [id number] [address] [place] [address], [place] [address] May, [facility] [address] [id number] [address] [place] [address], [place] [address] May, [facility] [address] [id number] [address] [place] [address], [place] [address] Apr, [facility] [address] [id number] [address] [place] [address], [place] [address] Apr, [facility] [address] [id number] [address] [place] [address], [place] [address] Apr, [facility] [address] [id number] [address] [place] [address], [place] [address] Apr, [facility] [address] [id number] [address] [place] [address], [place] [address] Apr, [facility] [address] [id number] [address] [place] [address], [place] [address] Apr, [facility] [address] [id number] [address] [place] [address], [place] [address] Mar, [facility] [address] [id number] [address] [place] [address], [place] [address] Mar, [facility] [address] [id number] [address] [place] [address], [place] [address] Mar, [facility] [address] [id number] [address] [place] [address], [place] [address] Mar, [facility] [address] [id number] [address] [place] [address], [place] [address] Mar, [facility] [address] [id number] [address] [place] [address], [place] [address] Mar, [facility] [address] [id number] [address] [place] [address], [place] [address] Feb, [facility] [address] [id number] [address] [place] [address], [place] [address] Feb, [facility] [address] [id number] [address] [place] [address], [place] [address] Feb, [facility] [address] [id number] [address] [place] [address], [place] [address] Feb, [facility] [address] [id number] [address] [place] [address], [place] [address] Feb, [facility] [address] [id number] [address] [place] [address], [place] [address] Feb, [facility] [address] [id number] [address] [place] [address], [place] [address] Feb, [facility] [address] [id number] [address] [place] [address], [place] [address] Feb, [facility] [address] [id number] [address] [place] [address], [place] [address] January, [facility] [address] [id number] [address] [place] [address], [place] [address] January, [facility] [address] [id number] [address] [place] [address], [place] [address] January, [facility] [address] [id number] [address] [place] [address], [place] [address] January, [facility] [address] [id number] [address] [place] [address], [place] [address] January, [facility] [address] [id number] [address] [place] [address], [place] [address] January, [facility] [address] [id number] [address] [place] [address], [place] [address] January, [facility] [address] [id number] [address] [place] [address], [place] [address] January, [facility] [address] [id number] [address] [place] [address], [place] [address] Dec, [facility] [address] [id number] [address] [place] [address], [place] [address] Dec, [facility] [address] [id number] [facility] [place] [address] Dec, [facility] [address] [id number] [facility] [place] [address] Dec, [facility] [address] [id number] [facility] [place] [address] Dec, [facility] [address] [id number] [address] [place] [address], [place] [address] Dec, [facility] [address] [id number] [address] [place] [address], [place] [address] Nov, [facility] [address] [id number] [address] [place] [address], [place] [address] Nov, [facility] [address] [id number] [address] [place] [address], [place] [address] Nov, [facility] [address] [id number] [address] [place] [address], [place] [address] Nov, [facility] [address] [id number] [address] [place] [address], [place] [address] Nov, [facility] [address] [id number] [address] [place] [address], [place] [address] Nov, [facility] [address] [id number] [address] [place] [address], [place] [address] Nov, [facility] [address] [id number] [address] [place] [address], [place] [address] Nov, [facility] [address] [id number] [address] [place] [address], [place] [address] Oct, [facility] [address] [id number] [address] [place] [address], [place] [address] Oct, [facility] [address] [id number] [address] [place] [address], [place] [address] Sep, [facility] [address] [id number] [address] [place] [address], [place] [address] Sep, [facility] [address] [id number] [address] [place] [address], [place] [address] Sep, [facility] [address] [id number] [address] [place] [address], [place] [address] Sep, [facility] [address] [id number] [address] [place] [address], [place] [address] Aug, [facility] [address] [id number] [address] [place] [address], [place] [address] Aug, [facility] [address] [id number] [address] [place] [address], [place] [address] Aug, [facility] [address] [id number] [address] [place] [address], [place] [address] Aug, [facility] [address] [id number] [address] [place] [address], [place] [address] Jul, [facility] [address] [id number] [address] [place] [address], [place] [address] Jul, [facility] [address] [id number] [address] [place] [address], [place] [address] Jul, [facility] [address] [id number] [address] [place] [address], [place] [address] Jul, [facility] [address] [id number] [address] [place] [address], [place] [address] Jul, [facility] [address] [id number] [address] [place] [address] Jul, [facility] [address] [id number] [address] [place] [address], [place] [address] Jul, [facility] [address] [id number] [address] [place] [address], [place] [address] Jul, [facility] [address] [id number] [address] [place] [address], [place] [address] Jul, [facility] [address] [id number] [address] [place] [address], [place] [address] Jul, [facility] [address] [id number] [address] [place] [address], [place] [address] Jul, [facility] [address] [id number] [address] [place] [address], [place] [address] Jul, [facility] [address] [id number] [address] [place] [address], [place] [address] Jun, [facility] [address] [id number] [address] [place] [address], [place] [address] Jun, [facility] [address] [id number] [address] [place] [address], [place] [address] Jun, [facility] [address] [id number] [address] [place] [address], [place] [address] Jun, [facility] [address] [id number] [address] [place] [address], [place] [address] Jun, [facility] [address] [id number] [address] [place] [address], [place] [address] Jun, [facility] [address] [id number] [address] [place] [address], [place] [address] Jun, [facility] [address] [id number] [address] [place] [address], [place] [address] Jun, [facility] [address] [id number] [address] [place] [address], [place] [address] 15 May, 2013 [facility] [address] [id number] [address] [place] [address], [place] [address] 05 May, 2013 [facility] [address] [id number] [address] [place] [address], [place] [address] May, [facility] [address] [id number] [address] [place] [address], [place] [address] Apr, [facility] [address] [id number] [address] [place] [address], [place] [address] Apr, [facility] [address] [id number] [address] [place] [address], [place] [address] Mar, [facility] [address] [id number] [address] [place] [address], [place] [address] Mar, [facility] [address] [id number] [address] [place] [address], [place] [address] Feb, [facility] [address] [id number] [address] [place] [address], [place] [address] January, [facility] [address] [id number] [address] [place] [address], [place] [address] January, [facility] [address] [id number] [address] [place] [address], [place] [address] January, [facility] [address] [id number] [address] [place] [address], [place] [address] January, [facility] [address] [id number] [address] [place] [address], [place] [address] January, [facility] [address] [id number] [address] [place] [address], [place] [address] Dec, [facility] [address] [id number] [address] [place] [address], [place] [address] Dec, [facility] [address] [id number] [address] [place] [address], [place] [address] Dec, [facility] [address] [id number] [address] [place] [address], [place] [address] Nov, [facility] [address] [id number] [address] [place] [address], [place] [address] Oct, [facility] [address] [id number] [address] [place] [address], [place] [address] Oct, [facility] [address] [id number] [address] [place] [address], [place] [address] Oct, [facility] [address] [id number] [address] [place] [address], [place] [address] 18 Sep, 2012 [facility] [address] [id number] [address] [place] [address], [place] [address] 16 Sep, 2012 [facility] [address] [id number] [address] [place] [address], [place] [address] 14 Aug, 2012 [facility] [address] [id number] [address] [place] [address], [place] [address] 14 Aug, 2012 [facility] [address] [id number] [address] [place] [address], [place] [address] 11 Aug, 2012 [facility] [address] [id number] [address] [place] [address], [place] [address] 11 Aug, 2012 [facility] [address] [id number] [address] [place] [address], [place] [address] Jul, [facility] [address] [id number] [address] [place] [address], [place] [address] Jul, [facility] [address] [id number] [address] [place] [address], [place] [address] Jul, [facility] [address] [id number] [address] [place] [address], [place] [address] Jul, [facility] [address] [id number] [address] [place] [address], [place] [address] Jul, [facility] [address] [id number] [address] [place] [address], [place] [address] 15 Jun, 2012 [facility] [address] [id number] [address] [place] [address], [place] [address] 15 Jun, 2012 [facility] [address] [id number] [address] [place] [address], [place] [address] 10 Jun, 2012 [facility] [address] [id number] [address] [place] [address], [place] [address] 10 Jun, 2012 [facility] [address] [id number] [address] [place] [address], [place] [address] 10 May, 2012 [facility] [address] [id number] [address] [place] [address], [place] [address] Apr, [facility] [address] [id number] [address] [place] [address], [place] [address] Apr, [facility] [address] [id number] [address] [place] [address], [place] [address] Apr, [facility] [address] [id number] [address] [place] [address], [place] [address] Apr, [facility] [address] [id number] [address] [place] [address], [place] [address] January, [facility] [address] [id number] [address] [place] [address], [place] [address] January, [facility] [address] [id number] [address] [place] [address], [place] [address] Dec, [facility] [address] [id number] [address] [place] [address], [place] [address] Dec, [facility] [address] [id number] [address] [place] [address], [place] [address] Nov, [facility] [address] [id number] [address] [place] [address], [place] [address] Nov, [facility] [address] [id number] [address] [place] [address], [place] [address] Nov, [facility] [address] [id number] [address] [place] [address], [place] [address] Nov, [facility] [address] [id number] [address] [place] [address], [place] [address] Oct, [facility] [address] [id number] [address] [place] [address], [place] [address] Oct, [facility] [address] [id number] [address] [place] [address], [place] [address] Oct, [facility] [address] [id number] [address] [place] [address], [place] [address] Sep, [facility] [address] [id number] [address] [place] [address], [place] [address] Sep, [facility] [address] [id number] [address] [place] [address], [place] [address] Aug, [facility] [address] [id number] [address] [place] [address], [place] [address] Aug, [facility] [address] [id number] [address] [place] [address], [place] [address] Jul, [facility] [address] [id number] [address] [place] [address], [place] [address] Jul, [facility] [address] [id number] [address] [place] [address], [place] [address] Jul, [facility] [address] [id number] [address] [place] [address], [place] [address] Jun, [facility] [address] [id number] [address] [place] [address], [place] [address] Jun, [facility] [address] [id number] [address] [place] [address], [place] [address] Jun, [facility] [address] [id number] [address] [place] [address], [place] [address] Jun, [facility] [address] [id number] [address] [place] [address], [place] [address] Jun, [facility] [address] [id number] [address] [place] [address], [place] [address] Jun, [facility] [address] [id number] [address] [place] [address], [place] [address] Aug, [facility] [address] [id number] [address] [place] [address], [place] [address] Aug, [facility] [address] [id number] [address] [place] [address], [place] [address] Aug, [facility] [address] [id number] [address] [place] [address], [place] [address] 29 Jul, 2010 [facility] [address] [id number] [address] [place] [address], [place] [address] 27 Jul, 2010 [facility] [address] [id number] [address] [place] [address], [place] [address] Jul, [facility] [address] [id number] [address] [place] [address], [place] [address] 15 Jul, 2010 [facility] [address] [id number] [address] [place] [address], [place] [address] 15 Jul, 2010 [facility] [address] [id number] [address] [place] [address], [place] [address] 08 Jul, 2010 [facility] [address] [id number] [address] [place] [address], [place] [address] Jun, [facility] [address] [id number] [address] [place] [address], [place] [address] Apr, [facility] [address] [id number] [address] [place] [address], [place] [address] Feb, [facility] [address] [id number] [address] [place] [address], [place] [address] 10 Oct, 2009 [facility] [address] [id number] [address] [place] [address], [place] [address] Sep, [facility] [address] [id number] [address] [place] [address], [place] [address] Aug, [facility] [address] [id number] [address] [place] [address], [place] [address] Aug, [facility] [address] [id number] [address] [place] [address], [place] [address] Aug, [facility] [address] [id number] [address] [place] [address], [place] [address] Jul, [facility] [address] [id number] [address] [place] [address], [place] [address] Jun, IMMUNIZATIONS No Known Immunizations SOCIAL HISTORY Never Assessed REASON FOR VISIT PLAN OF CARE VITAL SIGNS MEDICATIONS Unknown Medications RESULTS No Results PROCEDURES Procedure Date Ordered Result Body Site COMPLETE CBC W/AUTO DIFF WBC Jun 17, 2014 ASSAY THYROID STIM HORMONE Jun 17, 2014 ASSAY OF MAGNESIUM Jun 17, 2014 LIPID PANEL Jun 17, 2014 COMPREHEN METABOLIC PANEL Jun 17, 2014 ELECTROCARDIOGRAM, TRACING Jun 17, 2014 VENIPUNCT, ROUTINE* Jun 17, 2014 INSTRUCTIONS MEDICATIONS ADMINISTERED No Known Medications [...]
--- OUTSIDE RECORDS SUMMARY | 2020-02-22 17:11 | XMS REPORT ---
Author Author Marion CORREA Organization [facility] Address [address] [place] [address] Care Team Providers Care Dealer Analyst Name Role Phone SHABNAM CORREA Unavailable PROBLEMS Type Condition ICD9-CM Code [id number] Code Onset Dates Condition S tatus SNOMED Code Problem Acquired hypothyroidism E03.9 Active 870918859 Problem Gastro-esophageal reflux disease without esophagitis K21.9 Active 321190260 Problem Cervical disc disease M50.90 Active 452349026 Problem Dyspepsia R10.13 Active 350060410 Problem Migraine without aura and without status migrain osus, not intractable G43.009 Active 514444850 ALLERGIES No Information ENCOUNTERS Encounter Location Date Diagnosis [place] [id number] [place] [address] Nov, [place] [address] [place] [id number] [address] [place] [address] Nov, Cervical disc disease M50.90 [place] [address] [place] [id number] [address] [place] [address] Oct, [place] [address] [place] [id number] [address] [place] [address] Oct, Cervical disc disease M50.90 [place] [address] [facility] [id number] [address] [place] [address] Oct, Contusion of left knee, init ial encounter S80.02XA [place] [address] [facility] [id number] [address] [place] [address] Oct, Cervical disc disease M50.90 [facility] [address] [place] [id number] [address] [place] [address] Oct, [facility] [address] [id number] [address] [place] [address] Oct, Acute pain of left knee M25. 562 [facility] [address] [id number] [address] [place] [address] Sep, [facility] [address] [id number] [address] [place] [address] Sep, Cervical disc disease M50.90 [facility] [address] [id number] [address] [place] [address] Sep, Cervical disc disease M50.90 [facility] [address] [id number] [address] [place] [address] Aug, Cervical disc disease M50.90 [facility] [address] [id number] [address] [place] [address] Aug, [facility] [address] [id number] [address] [place] [address] Jul, Cervical disc disease M50.90 [facility] [address] [id number] [address] [place] [address] Jun, Cervical disc disease M50.90 [facility] [address] [id number] [address] [place] [address] May, [facility] [address] [id number] [address] [place] [address] May, Cervical disc disease M50.90 [facility] [address] [id number] [address] [place] [address] May, Acute cystitis with hematuri a N30.01 and UTI symptoms R39.9 [facility] [address] [id number] [address] [place] [address] 16 May, 2019 [facility] [address] [id number] [address] [place] [address] Apr, Cervical disc disease M50.90 [facility] [address] [id number] [address] [place] [address] Apr, Cervical disc disease M50.90 ; Gastro-esophageal reflux disease without esophagitis K21.9 and Sinus headache R51 [facility] [address] [id number] [address] [place] [address] Apr, [facility] [address] [id number] [address] [place] [address] Apr, Cervical disc disease M50.90 [facility] [address] [id number] [address] [place] [address] Mar, [facility] [address] [id number] [address] [place] [address] Mar, Cervical disc disease M50.90 [facility] [address] [facility] [id number] [address] [place] [address] Feb, [address] [id number] [address] Feb, Cervical disc disease M50.[address] [place] [address] January, [facility] [address] [facility] [id number] [address] [place] [address] January, Cervical disc disease M50.90 [facility] [address] [facility] [id number] [address] [place] [address] January, Cervical disc disease M50.90 [facility] [address] [id number] [address] [place] [address] Dec, Cervical disc disease M50.90 [facility] [address] [id number] [address] [place] [address] Dec, Cervical disc disease M50.90 [facility] [address] [id number] [address] [place] [address] Dec, Cervical disc disease M50.90 [facility] [address] [facility] [id number] [address] [place] [address] Dec, Cervical disc disease M50.90 ; Acquired hypothyroidism E03.9 and Migraine without aura and without status migrainosus, not intractable G43.009 [facility] [address] [facility] [id number] [address] [place] [address] Nov, [facility] [address] [facility] [id number] [address] [place] [address] Nov, Cervical disc disease M50.90 [facility] [address] [facility] [id number] [address] [place] [address] Oct, Cervical disc disease M50.90 [facility] [address] [facility] [id number] [address] [place] [address] Sep, [facility] [address] [place] [id number] [address] [place] [address] Sep, Cervical disc disease M50.90 [facility] [address] [facility] [id number] [address] [place] [address] Aug, Cervical disc disease M50.90 [facility] [address] [place] [id number] [address] [place] [address] Jul, Cervical disc disease M50.90 [facility] [address] [facility] [id number] [address] [place] [address] Jun, Acute recurrent pansinusitis J01.41 and Cervical disc disease M50.90 [facility] [address] [facility] [id number] [address] [place] [address] Jun, Cervical disc disease M50.90 [facility] [address] [facility] [id number] [address] [place] [address] May, Cervical disc disease M50.90 [facility] [address] [facility] [id number] [address] [place] [address] Apr, Cervical disc disease M50.90 [facility] [address] [place] [id number] [address] [place] [address] Mar, Cervical disc disease M50.90 [facility] [address] [id number] [address] [place] [address] Mar, [facility] [address] [id number] [address] [place] [address] Mar, Cervical disc disease M50.90 [facility] [address] [id number] [address] [place] [address] Feb, Cervical disc disease M50.90 [facility] [address] [id number] [address] [place] [address] January, Cervical disc disease M50.90 [facility] [address] [id number] [address] [place] [address] Dec, [facility] [address] [id number] [address] [place] [address] Dec, Cervical disc disease M50.90 [facility] [address] [id number] [address] [place] [address] Nov, Cervical disc disease M50.90 [facility] [address] [id number] [address] [place] [address] Nov, Cervical disc disease M50.90 [facility] [address] [id number] [address] [place] [address] Oct, Cervical disc disease M50.90 [facility] [address] [id number] [address] [place] [address] Oct, Cervical disc disease M50.90 and Acute non-recurrent maxillary sinusitis J01.00 [facility] [address] [id number] [address] [place] [address] Sep, Cervical disc disease M50.90 [facility] [address] [id number] [address] [place] [address] Sep, [facility] [address] [id number] [address] [place] [address] Sep, Fatigue, unspecified type R5 3.83 and Cough R05 [facility] [address] [id number] [address] [place] [address] Aug, Cervical disc disease M50.90 [facility] [address] [facility] [id number] [address] [place] [address] Aug, Sore throat J02.9 ; Canker s ore K12.0 and History of anemia Z86.2 [facility] [address] [id number] [address] [place] [address] Jul, Cervical disc disease M50.90 [facility] [address] [id number] [address] [place] [address] Jun, Cervical disc disease M50.90 [facility] [address] [facility] [id number] [address] [place] [address] Jun, Cervical disc disease M50.90 [facility] [address] [id number] [address] [place] [address] May, Cervical disc disease M50.90 [facility] [address] [facility] [id number] [address] [place] [address] Apr, Cervical disc disease M50.90 [facility] [address] [facility] [id number] [address] [place] [address] Apr, [facility] [address] [facility] [id number] [address] [place] [address] Feb, Cervical disc disease M50.90 [facility] [address] [facility] [id number] [address] [place] [address] January, Cervical disc disease M50.90 [facility] [address] [facility] [id number] [address] [place] [address] Nov, [facility] [address] [facility] [id number] [address] [place] [address] Nov, Cervical disc disease M50.90 [facility] [address] [id number] [address] [place] [address] Nov, Acute cystitis with hematuri a N30.01 and Dysuria R30.0 [facility] [address] [facility] [id number] [address] [place] [address] Oct, Cervical disc disease M50.90 and Acute non-recurrent frontal sinusitis J01.10 [facility] [address] [facility] [id number] [address] [place] [address] Sep, Neck pain M54.2 [facility] [address] [facility] [id number] [address] [place] [address] Sep, [facility] [address] [facility] [id number] [address] [place] [address] Aug, Cervical disc disease M50.90 [facility] [address] [facility] [id number] [address] [place] [address] Jul, [facility] [address] [facility] [id number] [address] [place] [address] Jun, [facility] [address] [facility] [id number] [address] [place] [address] May, [facility] [address] [facility] [id number] [address] [place] [address] May, Screening for diabetes melli tus Z13.1 ; Chronic fatigue R53.82 and Edema, unspecified type R60.9 [facility] [address] [facility] [id number] [address] [place] [address] Apr, Neck pain M54.2 [facility] [address] [facility] [id number] [address] [place] [address] Mar, [facility] [address] [facility] [id number] [address] [place] [address] Mar, Neck pain M54.2 [facility] [address] [facility] [id number] [address] [place] [address] Feb, Cervical disc disease M50.90 [facility] [address] [id number] [address] [place] [address] Feb, Cervical disc disease M50.90 [facility] [address] [id number] [address] [place] [address] January, [facility] [address] [id number] [address] [place] [address] January, [facility] [address] [id number] [address] [place] [address] January, Cervical disc disease M50.90 [facility] [address] [id number] [address] [place] [address] January, [facility] [address] [id number] [address] [place] [address] January, [facility] [address] [id number] [address] [place] [address] Dec, Cervical disc disease M50.90 [facility] [address] [id number] [address] [place] [address] Nov, Cervical disc disease M50.90 [facility] [address] [id number] [address] [place] [address] Oct, Cervical disc disease M50.90 [facility] [address] [id number] [address] [place] [address] Sep, Cervical disc disease M50.90 [facility] [address] [id number] [address] [place] [id number] Aug, Dental caries K02.9 and Enco unter for dental examination Z01.20 [facility] [address] [id number] [address] [place] [address] Aug, [facility] [address] [id number] [address] [place] [address] Aug, [facility] [address] [id number] [address] [place] [address] [id number] 08 Aug, 2015 Encounter for dental examina tion Z01.20 [facility] [address] [id number] [address] [place] [address] 16 Jul, 2015 [facility] [address] [id number] [address] [place] [address] Jun, Sinusitis J32.9 and Cervical disc disease M50.90 [facility] [address] [id number] [address] [place] [address] Jun, [facility] [address] [id number] [address] [place] [address] 24 May, 2015 [facility] [address] [id number] [address] [place] [address] May, [facility] [address] [id number] [address] [place] [address] May, [facility] [address] [id number] [address] [place] [address] May, [facility] [address] [id number] [address] [place] [address] Apr, Cervical spondylosis without myelopathy 721.0 [facility] [address] [id number] [address] [place] [address] Mar, [facility] [address] [id number] [address] [place] [address] January, Cervical spondylosis without myelopathy 721.0 [facility] [address] [id number] [address] [place] [address] 28 Dec, 2014 [facility] [address] [id number] [address] [place] [address] 14 Dec, 2014 [facility] [address] [id number] [address] [place] [address] 13 Dec, 2014 [facility] [address] [id number] [address] [place] [address] Nov, [facility] [address] [id number] [address] [place] [address], [place] [address] Nov, [facility] [address] [id number] [address] [place] [address], [place] [address] Oct, 2014 [facility] [address] [id number] [address] [place] [address], [place] [address] Oct, 2014 [facility] [address] [id number] [address] [place] [address], [place] [address] Oct, 2014 [facility] [address] [id number] [address] [place] [address], [place] [address] Oct, 2014 [facility] [address] [id number] [address] [place] [address], [place] [address] Oct, 2014 [facility] [address] [id number] [address] [place] [address], [place] [address] Oct, 2014 [facility] [address] [id number] [address] [place] [address], [place] [address] Oct, [facility] [address] [id number] [address] [place] [address], [place] [address] Oct, [facility] [address] [id number] [address] [place] [address], [place] [address] Oct, [facility] [address] [id number] [address] [place] [address], [place] [address] Oct, [facility] [address] [id number] [address] [place] [address] Sep, [facility] [address] [id number] [address] [place] [address], [place] [address] Sep, [facility] [address] [id number] [address] [place] [address], [place] [address] Sep, [facility] [address] [id number] [address] [place] [address] Sep, [facility] [address] [id number] [address] [place] [address], [place] [address] Sep, [facility] [address] [id number] [address] [place] [address], [place] [address] Sep, [facility] [address] [id number] [address] [place] [address], [place] [address] Sep, [facility] [address] [id number] [address] [place] [address], [place] [address] Sep, [facility] [address] [id number] [address] [place] [address], [place] [address] Sep, [facility] [address] [id number] [address] [place] [address], [place] [address] Aug, [facility] [address] [id number] [address] [place] [address], [place] [address] Aug, [facility] [address] [id number] [address] [place] [address], [place] [address] Aug, [facility] [address] [id number] [address] [place] [address], [place] [address] Aug, [facility] [address] [id number] [address] [place] [address], [place] [address] Jul, [facility] [address] [id number] [address] [place] [address], [place] [address] Jul, [facility] [address] [id number] [address] [place] [address] Jul, [facility] [address] [id number] [address] [place] [address], [place] [address] Jul, [facility] [address] [id number] [address] [place] [address], [place] [address] Jul, [facility] [address] [id number] [address] [place] [address] Jul, [facility] [address] [id number] [address] [place] [address], [place] [address] Jul, [facility] [address] [id number] [address] [place] [address], [place] [address] Jul, [facility] [address] [id number] [address] [place] [address], [place] [address] 27 Jun, 2014 [facility] [address] [id number] [address] [place] [address], [place] [address] 27 Jun, 2014 [facility] [address] [id number] [address] [place] [address], [place] [address] 20 Jun, 2014 [facility] [address] [id number] [address] [place] [address], [place] [address] 20 Jun, 2014 [facility] [address] [id number] [address] [place] [address], [place] [address] 16 Jun, 2014 [facility] [address] [id number] [address] [place] [address], [place] [address] 15 Jun, 2014 [facility] [address] [id number] [address] [place] [address], [place] [address] 15 Jun, 2014 [facility] [address] [id number] [address] [place] [address], [place] [address] 14 Jun, 2014 [facility] [address] [id number] [address] [place] [address], [place] [address] 14 Jun, 2014 [facility] [address] [id number] [address] [place] [address], [place] [address] 11 Jun, 2014 [facility] [address] [id number] [address] [place] [address], [place] [address] 11 Jun, 2014 [facility] [address] [id number] [address] [place] [address], [place] [address] 24 May, 2014 [facility] [address] [id number] [address] [place] [address], [place] [address] 24 May, 2014 [facility] [address] [id number] [address] [place] [address], [place] [address] 08 May, 2014 [facility] [address] [id number] [facility] [place] [address] May, [facility] [address] [id number] [address] [place] [address], [place] [address] May, [facility] [address] [id number] [facility] [place] [address] Apr, [facility] [address] [id number] [address] [place] [address], [place] [address] Apr, [facility] [address] [id number] [address] [place] [address], [place] [address] Apr, [facility] [address] [id number] [address] [place] [address], [place] [address] Apr, [facility] [address] [id number] [address] [place] [address], [place] [address] Apr, [facility] [address] [id number] [address] [place] [address], [place] [address] Apr, [facility] [address] [id number] [address] [place] [address], [place] [address] Mar, [facility] [address] [id number] [address] [place] [address], [place] [address] Mar, [facility] [address] [id number] [address] [place] [address], [place] [address] Mar, [facility] [address] [id number] [address] [place] [address], [place] [address] Mar, [facility] [address] [id number] [address] [place] [address], [place] [address] Mar, [facility] [address] [id number] [address] [place] [address], [place] [address] Mar, [facility] [address] [id number] [address] [place] [address], [place] [address] Feb, [facility] [address] [id number] [address] [place] [address], [place] [address] Feb, [facility] [address] [id number] [facility] [place] [address] Feb, [facility] [address] [id number] [address] [place] [address], [place] [address] Feb, [facility] [address] [id number] [address] [place] [address], [place] [address] Feb, [facility] [address] [id number] [address] [place] [address], [place] [address] Feb, [facility] [address] [id number] [address] [place] [address], [place] [address] Feb, [facility] [address] [id number] [address] [place] [address], [place] [address] Feb, [facility] [address] [id number] [address] [place] [address], [place] [address] January, [facility] [address] [id number] [address] [place] [address], [place] [address] January, [facility] [address] [id number] [address] [place] [address], [place] [address] January, [facility] [address] [id number] [address] [place] [address], [place] [address] January, [facility] [address] [id number] [address] [place] [address], [place] [address] January, [facility] [address] [id number] [address] [place] [address], [place] [address] January, [facility] [facility] [address] [id number] [address] [place] [address], [place] [address] January, [facility] [address] [id number] [address] [place] [address], [place] [address] January, [facility] [address] [id number] [address] [place] [address], [place] [address] Dec, [facility] [address] [id number] [facility] [place] [address] 30 Dec, 2013 [facility] [address] [id number] [address] [place] [address], [place] [address] Dec, [facility] [address] [id number] [facility] [place] [address] Dec, [facility] [address] [id number] [address] [place] [address], [place] [address] Dec, [facility] [address] [id number] [address] [place] [address], [place] [address] Dec, [facility] [address] [id number] [address] [place] [address], [place] [address] Nov, [facility] [address] [id number] [address] [place] [address], [place] [address] Nov, [facility] [address] [id number] [address] [place] [address], [place] [address] Nov, [facility] [address] [id number] [address] [place] [address], [place] [address] Nov, [facility] [address] [id number] [address] [place] [address], [place] [address] Nov, [facility] [address] [id number] [address] [place] [address], [place] [address] Nov, [facility] [address] [id number] [address] [place] [address], [place] [address] Nov, [facility] [address] [id number] [address] [place] [address], [place] [address] Nov, [facility] [address] [id number] [address] [place] [address], [place] [address] Oct, [facility] [address] [id number] [address] [place] [address], [place] [address] Oct, [facility] [address] [id number] [address] [place] [address], [place] [address] Sep, [facility] [address] [id number] [address] [place] [address], [place] [address] Sep, [facility] [address] [id number] [address] [place] [address], [place] [address] Sep, [facility] [address] [id number] [address] [place] [address], [place] [address] Sep, [facility] [address] [id number] [address] [place] [address], [place] [address] Aug, [facility] [address] [id number] [address] [place] [address], [place] [address] Aug, [facility] [address] [id number] [address] [place] [address], [place] [address] Aug, [facility] [address] [id number] [address] [place] [address], [place] [address] Aug, [facility] [address] [id number] [address] [place] [address], [place] [address] Jul, [facility] [address] [id number] [address] [place] [address], [place] [address] Jul, [facility] [address] [id number] [address] [place] [address], [place] [address] Jul, [facility] [address] [id number] [address] [place] [address], [place] [address] Jul, [facility] [address] [id number] [address] [place] [address], [place] [address] Jul, [facility] [address] [id number] [address] [place] [address], [place] [address] Jul, [facility] [address] [id number] [address] [place] [address], [place] [address] Jul, [facility] [address] [id number] [address] [place] [address], [place] [address] Jul, [facility] [address] [id number] [address] [place] [address] Jul, [facility] [address] [id number] [address] [place] [address], [place] [address] Jul, [facility] [address] [id number] [address] [place] [address] Jul, [facility] [address] [id number] [address] [place] [address], [place] [address] Jul, [facility] [address] [id number] [address] [place] [address] Jun, [facility] [address] [id number] [address] [place] [address], [place] [address] Jun, [facility] [address] [id number] [address] [place] [address], [place] [address] Jun, [facility] [address] [id number] [address] [place] [address], [place] [address] Jun, [facility] [address] [id number] [address] [place] [address], [place] [address] Jun, [facility] [address] [id number] [address] [place] [address] Jun, [facility] [address] [id number] [address] [place] [address] Jun, [facility] [address] [id number] [address] [place] [address] 02 Jun, 2013 [facility] [address] [id number] [address] [place] [address] 15 May, 2013 [facility] [address] [id number] [address] [place] [address], [place] [address] 05 May, 2013 [facility] [address] [id number] [address] [place] [address] 04 May, 2013 [facility] [address] [id number] [address] [place] [address], [place] [address] Apr, [facility] [address] [id number] [address] [place] [address], [place] [address] Apr, [facility] [address] [id number] [address] [place] [address], [place] [address] Mar, [facility] [address] [id number] [address] [place] [address], [place] [address] Mar, [facility] [address] [id number] [address] [place] [address], [place] [address] Feb, [facility] [address] [id number] [address] [place] [address], [place] [address] January, [facility] [address] [id number] [address] [place] [address], [place] [address] January, [facility] [address] [id number] [address] [place] [address], [place] [address] January, [facility] [address] [id number] [address] [place] [address], [place] [address] January, [facility] [address] [id number] [address] [place] [address], [place] [address] January, [facility] [address] [id number] [address] [place] [address], [place] [address] Dec, [facility] [address] [id number] [address] [place] [address], [place] [address] Dec, [facility] [address] [id number] [address] [place] [address], [place] [address] Dec, [facility] [address] [id number] [address] [place] [address], [place] [address] Nov, [facility] [address] [id number] [address] [place] [address], [place] [address] Oct, [facility] [address] [id number] [address] [place] [address], [place] [address] 18 Oct, 2012 [facility] [address] [id number] [address] [place] [address], [place] [address] 15 Oct, 2012 [facility] [address] [id number] [address] [place] [address], [place] [address] Sep, [facility] [address] [id number] [address] [place] [address], [place] [address] 16 Sep, 2012 [facility] [address] [id number] [address] [place] [address], [place] [address] 14 Aug, 2012 [facility] [address] [id number] [address] [place] [address], [place] [address] 14 Aug, 2012 [facility] [address] [id number] [address] [place] [address], [place] [address] Aug, [facility] [address] [id number] [address] [place] [address], [place] [address] Aug, [facility] [address] [id number] [address] [place] [address], [place] [address] Jul, [facility] [address] [id number] [address] [place] [address], [place] [address] Jul, [facility] [address] [id number] [address] [place] [address], [place] [address] Jul, [facility] [address] [id number] [address] [place] [address], [place] [address] Jul, [facility] [address] [id number] [address] [place] [address], [place] [address] Jul, [facility] [address] [id number] [address] [place] [address] 15 Jun, 2012 [facility] [address] [id number] [address] [place] [address], [place] [address] 15 Jun, 2012 [facility] [address] [id number] [address] [place] [address], [place] [address] Jun, [facility] [address] [id number] [address] [place] [address], [place] [address] 10 Jun, 2012 [facility] [address] [id number] [address] [place] [address], [place] [address] 10 May, 2012 [facility] [address] [id number] [address] [place] [address], [place] [address] Apr, [facility] [address] [id number] [address] [place] [address], [place] [address] Apr, [facility] [address] [id number] [address] [place] [address], [place] [address] Apr, [facility] [address] [id number] [address] [place] [address], [place] [address] Apr, [facility] [address] [id number] [address] [place] [address], [place] [address] January, [facility] [address] [id number] [address] [place] [address], [place] [address] January, [facility] [address] [id number] [address] [place] [address], [place] [address] Dec, [facility] [address] [id number] [address] [place] [address], [place] [address] Dec, [facility] [address] [id number] [address] [place] [address], [place] [address] Nov, [facility] [address] [id number] [address] [place] [address], [place] [address] Nov, [facility] [address] [id number] [address] [place] [address], [place] [address] Nov, [facility] [address] [id number] [address] [place] [address], [place] [address] Nov, [facility] [address] [id number] [address] [place] [address], [place] [address] Oct, [facility] [address] [id number] [address] [place] [address], [place] [address] Oct, [facility] [address] [id number] [address] [place] [address], [place] [address] Oct, [facility] [address] [id number] [address] [place] [address], [place] [address] Sep, [facility] [address] [id number] [address] [place] [address], [place] [address] Sep, [facility] [address] [id number] [address] [place] [address], [place] [address] Aug, [facility] [address] [id number] [address] [place] [address], [place] [address] Aug, [facility] [address] [id number] [address] [place] [address], [place] [address] Jul, [facility] [address] [id number] [address] [place] [address], [place] [address] Jul, [facility] [address] [id number] [address] [place] [address], [place] [address] Jul, [facility] [address] [id number] [address] [place] [address], [place] [address] Jun, [facility] [address] [id number] [address] [place] [address], [place] [address] Jun, [facility] [address] [id number] [address] [place] [address] Jun, [facility] [address] [id number] [address] [place] [address] Jun, [facility] [address] [id number] [address] [place] [address] Jun, [facility] [address] [id number] [address] [place] [address], [place] [address] Jun, [facility] [address] [id number] [address] [place] [address] Aug, [facility] [address] [id number] [address] [place] [address] Aug, [facility] [address] [id number] [address] [place] [address] 08 Aug, 2010 [facility] [address] [id number] [address] [place] [address], [place] [address] 29 Jul, 2010 [facility] [address] [id number] [address] [place] [address] 27 Jul, 2010 [facility] [address] [id number] [address] [place] [address], [place] [address] Jul, [facility] [address] [id number] [address] [place] [address] 15 Jul, 2010 [facility] [address] [id number] [address] [place] [address], [place] [address] 15 Jul, 2010 [facility] [address] [id number] [address] [place] [address], [place] [address] 08 Jul, 2010 [facility] [address] [id number] [address] [place] [address] Jun, [facility] [address] [id number] [address] [place] [address] Apr, [facility] [address] [id number] [address] [place] [address] 11 Feb, 2010 [facility] [address] [id number] [address] [place] [address] 10 Oct, 2009 [facility] [address] [id number] [address] [place] [address] 13 Sep, 2009 [facility] [address] [id number] [address] [place] [address] 18 Aug, 2009 [facility] [address] [id number] [address] [place] [id number] 18 Aug, 2009 [facility] [address] [id number] [address] [place] [address] 05 Aug, 2009 [facility] [address] [id number] [address] [place] [address] 25 Jul, 2009 [facility] [address] [facility] [id number] [address] [place] [address] Jun, IMMUNIZATIONS No Known Immunizations SOCIAL HISTORY [...]
--- OUTSIDE RECORDS SUMMARY | 2020-02-22 17:12 | XMS REPORT ---
Author Author Marion BRYANT Organization [facility] Address [address] [place] [address] Care Team Providers Care Transportation Department Supervisor Name Role Phone EVER BRYANT Unavailable PROBLEMS Type Condition ICD9-CM Code XTQ19-TP Code Onset Dates Condition S tatus SNOMED Code Problem Acquired hypothyroidism E03.9 Active 833351910 Problem Gastro-esophageal reflux disease without esophagitis K21.9 Active 812921026 Problem Cervical disc disease M50.90 Active 119915384 Problem Dyspepsia R10.13 Active 985957651 Problem Migraine without aura and without status migrain osus, not intractable G43.009 Active 807391399 ALLERGIES No Information ENCOUNTERS Encounter Location Date Diagnosis [place] [address] [address] Nov, Cervical disc disease M50.90 [place] [address] [address] Oct, [place] [address] [address] Oct, Cervical disc disease M50.90 [place] [address] [address] Oct, Contusion of left knee, initial encounte r S80.02XA [place] [address] [address] Oct, Cervical disc disease M50.90 [facility] [address] [place] [id number] [place] [address] Oct, [facility] [address] [place] [id number] [address] [place] [address] Oct, Acute pain of left knee M25. 562 [facility] [address] [address] Sep, [facility] [address] [address] Sep, Cervical disc disease M50.90 [place] [address] [address] Sep, Cervical disc disease M50.90 [facility] [address] [address] Aug, Cervical disc disease M50.90 [place] [address] [address] Aug, [place] [address] [address] Jul, Cervical disc disease M50.90 [place] [address] [address] Jun, Cervical disc disease M50.90 [facility] [address] [address] May, [place] [address] [address] May, Cervical disc disease M50.90 [facility] [address] [facility] [id number] [address] [place] [address] May, Acute cystitis with hematuri a N30.01 and UTI symptoms R39.9 [facility] [address] [address] May, [place] [address] [address] Apr, Cervical disc disease M50.90 [facility] [address] [address] Apr, Cervical disc disease M50.90 ; Gastro-es ophageal reflux disease without esophagitis K21.9 and Sinus headache R51 [facility] [address] [place] [id number] [place] [address] Apr, [facility] [address] [place] [id number] [place] [address] Apr, Cervical disc disease M50.90 [facility] [address] [place] [id number] [place] [address] Mar, [facility] [address] [place] [id number] [place] [address] Mar, Cervical disc disease M50.90 [facility] [address] [place] [id number] [place] [address] Feb, [address] [place] [address] Feb, Cervical disc disease M50.[address] [place] [address] January, [place] [address] [place] [id number] [place] [address] January, Cervical disc disease M50.90 [facility] [address] [place] [id number] [place] [address] January, Cervical disc disease M50.90 [facility] [address] [place] [id number] [place] [address] Dec, Cervical disc disease M50.90 [place] [address] [place] [id number] [place] [address] Dec, Cervical disc disease M50.90 [facility] [address] [place] [id number] [place] [address] Dec, Cervical disc disease M50.90 [facility] [address] [place] [id number] [place] [address] Dec, Cervical disc disease M50.90 ; Acquired hypothyroidism E03.9 and Migraine without aura and without status migrainosus, not intractable G43.009 [facility] [address] [place] [id number] [place] [address] Nov, [facility] [address] [place] [id number] [place] [address] Nov, Cervical disc disease M50.90 [facility] [address] [place] [id number] [place] [address] Oct, Cervical disc disease M50.90 [facility] [address] [place] [id number] [place] [address] Sep, [facility] [address] [place] [id number] [place] [address] Sep, Cervical disc disease M50.90 [facility] [address] [place] [id number] [place] [address] Aug, Cervical disc disease M50.90 [facility] [address] [place] [id number] [place] [address] Jul, Cervical disc disease M50.90 [facility] [address] [place] [id number] [place] [address] Jun, Acute recurrent pansinusitis J01.41 and Cervical disc disease M50.90 [facility] [address] [place] [id number] [place] [address] Jun, Cervical disc disease M50.90 [facility] [address] [place] [id number] [place] [address] May, Cervical disc disease M50.90 [facility] [address] [place] [id number] [place] [address] Apr, Cervical disc disease M50.90 [facility] [address] [place] [id number] [place] [address] Mar, Cervical disc disease M50.90 [facility] [address] [place] [id number] [place] [address] Mar, [facility] [address] [place] [id number] [place] [address] Mar, Cervical disc disease M50.90 [facility] [address] [place] [id number] [place] [address] Feb, Cervical disc disease M50.90 [facility] [address] [address] January, Cervical disc disease M50.90 [facility] [address] [address] Dec, [place] [address] [address] Dec, Cervical disc disease M50.90 [place] [address] [address] Nov, Cervical disc disease M50.90 [place] [address] [address] Nov, Cervical disc disease M50.90 [place] [address] [address] Oct, Cervical disc disease M50.90 [place] [address] [address] Oct, Cervical disc disease M50.90 and Acute n on-recurrent maxillary sinusitis J01.00 [place] [address] [address] Sep, Cervical disc disease M50.90 [facility] [address] [place] [id number] [place] [address] Sep, [facility] [address] [place] [id number] [place] [address] Sep, Fatigue, unspecified type R5 3.83 and Cough R05 [place] [address] [address] Aug, Cervical disc disease M50.90 [facility] [address] [place] [id number] [place] [address] Aug, Sore throat J02.9 ; Canker s ore K12.0 and History of anemia Z86.2 [place] [address] [place] [id number] [place] [address] Jul, Cervical disc disease M50.90 [facility] [address] [address] Jun, Cervical disc disease M50.90 [facility] [address] [address] Jun, Cervical disc disease M50.90 [facility] [address] [address] May, Cervical disc disease M50.90 [facility] [address] [address] Apr, Cervical disc disease M50.90 [facility] [address] [address] Apr, [facility] [address] [address] Feb, Cervical disc disease M50.90 [facility] [address] [address] January, Cervical disc disease M50.90 [facility] [address] [address] Nov, [facility] [address] [address] Nov, Cervical disc disease M50.90 [facility] [address] [facility] [id number] [place] [address] Nov, Acute cystitis with hematuri a N30.01 and Dysuria R30.0 [facility] [address] [address] Oct, Cervical disc disease M50.90 and Acute n on-recurrent frontal sinusitis J01.10 [facility] [address] [facility] [place] [address] Sep, Neck pain M54.2 [facility] [address] [place] [address] Sep, [facility] [address] [address] Aug, Cervical disc disease M50.90 [facility] [address] [place] [id number] [place] [address] Jul, [facility] [address] [address] Jun, [facility] [address] [address] May, [facility] [address] [address] May, Screening for diabetes mellitus Z13.1 ; Chronic fatigue R53.82 and Edema, unspecified type R60.9 [facility] [address] [place] [id number] [place] [address] Apr, Neck pain M54.2 [facility] [address] [address] Mar, [facility] [address] [address] Mar, Neck pain M54.2 [facility] [address] [address] Feb, Cervical disc disease M50.90 [facility] [address] [place] [id number] [place] [address] Feb, Cervical disc disease M50.90 [facility] [address] [place] [id number] [place] [address] January, [facility] [address] [address] January, [facility] [address] [address] January, Cervical disc disease M50.90 [facility] [address] [address] January, [facility] [address] [address] January, [facility] [address] [address] Dec, Cervical disc disease M50.90 [facility] [address] [address] Nov, Cervical disc disease M50.90 [facility] [address] [address] Oct, Cervical disc disease M50.90 [facility] [address] [address] Sep, Cervical disc disease M50.90 [facility] [address] [id number] Aug, Dental caries K02.9 and Encounter for de ntal examination Z01.20 [facility] [address] [address] Aug, [facility] [address] [address] Aug, [facility] [address] [id number] Aug, Encounter for dental examination Z01.20 [facility] [address] [address] Jul, [facility] [address] [address] Jun, Sinusitis J32.9 and Cervical disc diseas e M50.90 [facility] [address] [address] Jun, [facility] [address] [address] 24 May, 2015 [facility] [address] [address] May, [facility] [address] [place] [address] [place] [address] May, [facility] [address] [id number] [place] [address] May, [facility] [address] [id number] [place] [address] Apr, Cervical spondylosis without myelopathy 721.0 [facility] [address] [place] [id number] [place] [address] Mar, [facility] [address] [place] [id number] [place] [address] January, Cervical spondylosis without myelopathy 721.0 [facility] [address] [place] [id number] [place] [address] Dec, [facility] [address] [place] [id number] [place] [address] Dec, [facility] [address] [place] [id number] [place] [address] Dec, [facility] [address] [place] [id number] [place] [address] Nov, [facility] [address] [place] [id number] [place] [address] Nov, [facility] [address] [place] [id number] [place] [address] Oct, [facility] [address] [place] [id number] [place] [address] Oct, [facility] [address] [place] [id number] [place] [address] Oct, [facility] [address] [place] [id number] [place] [address] Oct, [facility] [address] [place] [id number] [place] [address] Oct, [facility] [address] [place] [id number] [place] [address] Oct, [facility] [address] [id number] [place] [address] Oct, [facility] [address] [id number] [place] [address] Oct, [facility] [address] [id number] [place] [address] Oct, [facility] [address] [id number] [place] [address] Oct, [facility] [address] [id number] [place] [address] Sep, [facility] [address] [id number] [place] [address] Sep, [facility] [address] [id number] [place] [address] Sep, [facility] [address] [place] [id number] [place] [address] Sep, [facility] [address] [id number] [place] [address] Sep, [facility] [address] [id number] [place] [address] Sep, [facility] [address] [id number] [place] [address] Sep, [facility] [address] [id number] [place] [address] Sep, [facility] [address] [id number] [place] [address] Sep, [facility] [address] [id number] [place] [address] Aug, [facility] [address] [id number] [place] [address] Aug, [facility] [address] [id number] [place] [address] Aug, [facility] [address] [id number] [place] [address] Aug, [facility] [address] [facility] [id number] [place] [address] Jul, [facility] [address] [facility] [id number] [place] [address] Jul, [facility] [address] [id number] [place] [address] Jul, [facility] [address] [id number] [place] [address] Jul, [facility] [address] [facility] [id number] [place] [address] Jul, [facility] [address] [id number] [place] [address] Jul, [facility] [address] [id number] [place] [address] Jul, [facility] [address] [id number] [place] [address] Jul, [facility] [address] [id number] [place] [address] Jun, [facility] [address] [id number] [place] [address] 27 Jun, 2014 [facility] [address] [id number] [place] [address] Jun, [facility] [address] [id number] [place] [address] 20 Jun, 2014 [facility] [address] [id number] [place] [address] 16 Jun, 2014 [facility] [address] [id number] [place] [address] 15 Jun, 2014 [facility] [address] [id number] [place] [address] 15 Jun, 2014 [facility] [address] [id number] [place] [address] 14 Jun, 2014 [facility] [address] [id number] [place] [address] 14 Jun, 2014 [facility] [address] [id number] [place] [address] Jun, [facility] [address] [facility] [id number] [place] [address] Jun, [facility] [address] [id number] [place] [address] May, [facility] [address] [facility] [id number] [place] [address] May, [facility] [address] [facility] [id number] [place] [address] May, [facility] [address] [id number] [place] [address] May, [facility] [address] [id number] [place] [address] May, [facility] [address] [id number] [place] [address] Apr, [facility] [address] [facility] [id number] [place] [address] Apr, [facility] [address] [id number] [place] [address] Apr, [facility] [address] [id number] [place] [address] Apr, [facility] [address] [id number] [place] [address] Apr, [facility] [address] [facility] [id number] [place] [address] Apr, [facility] [address] [id number] [place] [address] Mar, [facility] [address] [id number] [place] [address] Mar, [facility] [address] [id number] [place] [address] Mar, [facility] [address] [facility] [id number] [place] [address] Mar, [facility] [address] [id number] [place] [address] Mar, [facility] [address] [id number] [place] [address] Mar, [facility] [address] [id number] [place] [address] Feb, [facility] [address] [id number] [place] [address] Feb, [facility] [address] [id number] [place] [address] Feb, [facility] [address] [id number] [place] [address] Feb, [facility] [address] [id number] [place] [address] Feb, [facility] [address] [id number] [place] [address] Feb, [facility] [address] [id number] [place] [address] Feb, [facility] [address] [id number] [place] [address] Feb, [facility] [address] [id number] [place] [address] January, [facility] [address] [id number] [place] [address] January, [facility] [address] [id number] [place] [address] January, [facility] [address] [id number] [place] [address] January, [facility] [address] [id number] [place] [address] January, [facility] [address] [id number] [place] [address] January, [facility] [address] [facility] [id number] [place] [address] January, [facility] [address] [facility] [id number] [place] [address] January, [facility] [address] [id number] [place] [address] Dec, [facility] [address] [id number] [place] [address] Dec, [facility] [address] [facility] [id number] [place] [address] Dec, [facility] [address] [id number] [place] [address] Dec, [facility] [address] [id number] [place] [address] Dec, [facility] [address] [id number] [place] [address] Dec, [facility] [address] [id number] [place] [address] Nov, [facility] [address] [id number] [place] [address] Nov, [facility] [address] [id number] [place] [address] Nov, [facility] [address] [id number] [place] [address] Nov, [facility] [address] [id number] [place] [address] Nov, [facility] [address] [id number] [place] [address] Nov, [facility] [address] [id number] [place] [address] Nov, [facility] [address] [id number] [place] [address] Nov, [facility] [address] [id number] [place] [address] Oct, [facility] [address] [id number] [place] [address] Oct, [facility] [address] [id number] [place] [address] Sep, [facility] [address] [id number] [place] [address] Sep, [facility] [address] [id number] [place] [address] Sep, [facility] [address] [id number] [place] [address] Sep, [facility] [address] [id number] [place] [address] Aug, [facility] [address] [id number] [place] [address] Aug, [facility] [address] [id number] [place] [address] Aug, [facility] [address] [id number] [place] [address] Aug, [facility] [address] [id number] [place] [address] Jul, [facility] [address] [id number] [place] [address] Jul, [facility] [address] [id number] [place] [address] Jul, [facility] [address] [id number] [place] [address] Jul, [facility] [address] [id number] [place] [address] Jul, [facility] [address] [id number] [place] [address] Jul, [facility] [address] [id number] [place] [address] Jul, [facility] [address] [id number] [place] [address] Jul, 2012 [facility] [address] [id number] [place] [address] Jul, 2012 [facility] [address] [id number] [place] [address] Jul, 2012 [facility] [address] [id number] [place] [address] Jul, [facility] [address] [id number] [place] [address] Jul, [facility] [address] [id number] [place] [address] Jun, [facility] [address] [id number] [place] [address] Jun, [facility] [address] [id number] [place] [address] Jun, [facility] [address] [id number] [place] [address] Jun, [facility] [address] [id number] [place] [address] 16 Jun, 2013 [facility] [address] [id number] [place] [address] Jun, [facility] [address] [id number] [place] [address] 14 Jun, 2013 [facility] [address] [id number] [place] [address] 02 Jun, 2013 [facility] [address] [id number] [place] [address] 15 May, 2013 [facility] [address] [id number] [place] [address] 05 Sep, 2012 [facility] [address] [id number] [place] [address] 04 May, 2012 [facility] [address] [id number] [place] [address] Apr, [facility] [address] [id number] [place] [address] Apr, [facility] [address] [id number] [place] [address] Mar, [facility] [address] [id number] [place] [address] Mar, [facility] [address] [id number] [place] [address] Feb, [facility] [address] [id number] [place] [address] January, [facility] [address] [id number] [place] [address] January, [facility] [address] [id number] [place] [address] January, [facility] [id number] [place] [address] January, [facility] [address] [id number] [place] [address] January, [facility] [address] [id number] [place] [address] Dec, [facility] [address] [id number] [place] [address] Dec, [facility] [address] [id number] [place] [address] Dec, [facility] [address] [id number] [place] [address] Nov, [facility] [address] [id number] [place] [address] Oct, [facility] [address] [id number] [place] [address] Oct, [facility] [id number] [place] [address] Oct, [facility] [address] [id number] [place] [address] 18 Sep, 2012 [facility] [address] [id number] [place] [address] 16 Sep, 2012 [facility] [address] [id number] [place] [address] 14 Aug, 2012 [facility] [address] [id number] [place] [address] 14 Aug, 2012 [facility] [address] [id number] [place] [address] 11 Aug, 2012 [facility] [address] [id number] [place] [address] Aug, [facility] [address] [id number] [place] [address] Jul, [facility] [address] [id number] [place] [address] Jul, [facility] [address] [id number] [place] [address] Jul, [facility] [address] [id number] [place] [address] Jul, [facility] [address] [id number] [place] [address] Jul, [facility] [address] [id number] [place] [address] 15 Jun, 2012 [facility] [address] [id number] [place] [address] 15 Jun, 2012 [facility] [address] [id number] [place] [address] 10 Jun, 2012 [facility] [id number] [place] [address] 10 Jun, 2012 [facility] [address] [id number] [place] [address] 10 May, 2012 [facility] [address] [id number] [place] [address] Apr, [facility] [address] [id number] [place] [address] Apr, [facility] [address] [id number] [place] [address] Apr, [facility] [address] [id number] [place] [address] Apr, [facility] [address] [id number] [place] [address] January, [facility] [address] [facility] [id number] [place] [address] January, [facility] [address] [id number] [place] [address] Dec, [facility] [address] [id number] [place] [address] Dec, [facility] [address] [id number] [place] [address] Nov, [facility] [address] [id number] [place] [address] Nov, [facility] [address] [id number] [place] [address] Nov, [facility] [address] [id number] [place] [address] Nov, [facility] [address] [id number] [place] [address] Oct, [facility] [address] [id number] [place] [address] Oct, [facility] [address] [id number] [place] [address] Oct, [facility] [address] [id number] [place] [address] Sep, [facility] [address] [id number] [place] [address] Sep, [facility] [address] [id number] [place] [address] Aug, [facility] [address] [id number] [place] [address] Aug, [facility] [address] [id number] [place] [address] Jul, [facility] [address] [id number] [place] [address] Jul, [facility] [address] [id number] [place] [address] Jul, [facility] [address] [id number] [place] [address] Jun, [facility] [address] [id number] [place] [address] Jun, [facility] [address] [id number] [place] [address] Jun, [facility] [address] [id number] [place] [address] Jun, [facility] [address] [id number] [place] [address] Jun, [facility] [address] [id number] [place] [address] Jun, [facility] [address] [id number] [place] [address] Aug, [facility] [address] [id number] [place] [address] Aug, [facility] [address] [id number] [place] [address] Aug, [facility] [address] [id number] [place] [address] 29 Jul, 2010 [facility] [address] [id number] [place] [address] Jul, [facility] [address] [id number] [place] [address] Jul, [facility] [id number] [place] [address] Jul, [facility] [id number] [place] [address] Jul, [facility] [id number] [place] [address] Jul, [facility] [id number] [place] [address] Jun, [facility] [id number] [place] [address] Apr, [facility] [id number] [place] [address] Feb, [facility] [id number] [place] [address] Oct, [facility] [id number] [place] [address] Sep, [facility] [id number] [place] [address] Aug, [facility] [id number] [place] [address] Aug, [facility] [id number] [place] [address] Aug, [facility] [id number] [place] [address] Jul, [facility] [id number] [place] [address] Jun, IMMUNIZATIONS No Known Immunizations SOCIAL HISTORY [...]
--- OUTSIDE RECORDS SUMMARY | 2020-02-22 17:12 | XMS REPORT ---
Author Author Marion CORREA Organization [facility] Address [address] [place] [address] Care Team Providers Care Rn Chronic Name Role Phone SHABNAM CORREA Unavailable PROBLEMS Type Condition ICD9-CM Code [id number] Code Onset Dates Condition S tatus SNOMED Code Problem Acquired hypothyroidism E03.9 Active 264348435 Problem Gastro-esophageal reflux disease without esophagitis K21.9 Active 179416917 Problem Cervical disc disease M50.90 Active 002726177 Problem Dyspepsia R10.13 Active 626341996 Problem Migraine without aura and without status migrain osus, not intractable G43.009 Active [id number] ALLERGIES No Information ENCOUNTERS Encounter Location Date Diagnosis [place] [id number] [place] [id number] Nov, [place] [address] [address] [place] [id number] [address] [place] [id number] Nov, Cervical disc disease M50.90 [place] [address] [address] [place] [id number] [address] [place] [address] Oct, [place] [address] [address] [place] [id number] [address] [place] [address] Oct, Cervical disc disease M50.90 [place] [address] [facility] [id number] [address] [place] [phone] Oct, Contusion of left knee, init ial encounter S80.02XA [place] [address] [facility] [id number] [address] [place] [phone] Oct, Cervical disc disease M50.90 [facility] [address] [place] [id number] [address] [place] [phone] Oct, [facility] [address] [id number] [address] [place] [phone] Oct, Acute pain of left knee M25. 562 [facility] [address] [id number] [address] [place] [id number] Sep, [facility] [address] [id number] [address] [place] [phone] Sep, Cervical disc disease M50.90 [facility] [address] [id number] [address] [place] [phone] Sep, Cervical disc disease M50.90 [facility] [address] [id number] [address] [place] [phone] Aug, Cervical disc disease M50.90 [facility] [address] [id number] [address] [place] [phone] Aug, [facility] [address] [id number] [address] [place] [phone] Jul, Cervical disc disease M50.90 [facility] [address] [id number] [address] [place] [phone] Jun, Cervical disc disease M50.90 [facility] [address] [id number] [address] [place] [phone] May, [facility] [address] [id number] [address] [place] [phone] May, Cervical disc disease M50.90 [facility] [address] [id number] [address] [place] [phone] May, Acute cystitis with hematuri a N30.01 and UTI symptoms R39.9 [facility] [address] [id number] [address] [place] [phone] 16 May, 2019 [facility] [address] [id number] [address] [place] [phone] Apr, Cervical disc disease M50.90 [facility] [address] [id number] [address] [place] [phone] Apr, Cervical disc disease M50.90 ; Gastro-esophageal reflux disease without esophagitis K21.9 and Sinus headache R51 [facility] [address] [id number] [address] [place] [phone] Apr, [facility] [address] [id number] [address] [place] [address] Apr, Cervical disc disease M50.90 [facility] [address] [id number] [address] [place] [phone] Mar, [facility] [address] [id number] [address] [place] [phone] Mar, Cervical disc disease M50.90 [facility] [address] [facility] [id number] [address] [place] [phone] Feb, [address] [id number] [address] Feb, Cervical disc disease M50.[id number] [address] January, [facility] [address] [facility] [id number] [address] [place] [address] January, Cervical disc disease M50.90 [facility] [address] [facility] [id number] [address] [place] [address] January, Cervical disc disease M50.90 [facility] [address] [id number] [address] [place] [phone] Dec, Cervical disc disease M50.90 [facility] [address] [id number] [address] [place] [phone] Dec, Cervical disc disease M50.90 [facility] [address] [id number] [address] [place] [address] Dec, Cervical disc disease M50.90 [facility] [address] [facility] [id number] [address] [place] [address] Dec, Cervical disc disease M50.90 ; Acquired hypothyroidism E03.9 and Migraine without aura and without status migrainosus, not intractable G43.009 [facility] [address] [facility] [id number] [address] [place] [phone] Nov, [facility] [address] [facility] [id number] [address] [place] [phone] Nov, Cervical disc disease M50.90 [facility] [address] [facility] [id number] [address] [place] [address] Oct, Cervical disc disease M50.90 [facility] [address] [facility] [id number] [address] [place] [phone] Sep, [facility] [address] [place] [id number] [address] [place] [address] Sep, Cervical disc disease M50.90 [facility] [address] [facility] [id number] [address] [place] [address] Aug, Cervical disc disease M50.90 [facility] [address] [place] [id number] [address] [place] [phone] Jul, Cervical disc disease M50.90 [facility] [address] [facility] [id number] [address] [place] [phone] Jun, Acute recurrent pansinusitis J01.41 and Cervical disc disease M50.90 [facility] [address] [facility] [id number] [address] [place] [phone] Jun, Cervical disc disease M50.90 [facility] [address] [facility] [id number] [address] [place] [address] May, Cervical disc disease M50.90 [facility] [address] [facility] [id number] [address] [place] [address] Apr, Cervical disc disease M50.90 [facility] [address] [place] [id number] [address] [place] [address] Mar, Cervical disc disease M50.90 [facility] [address] [id number] [address] [place] [phone] Mar, [facility] [address] [id number] [address] [place] [phone] Mar, Cervical disc disease M50.90 [facility] [address] [id number] [address] [place] [address] Feb, Cervical disc disease M50.90 [facility] [address] [id number] [address] [place] [phone] January, Cervical disc disease M50.90 [facility] [address] [id number] [address] [place] [phone] Dec, [facility] [address] [id number] [address] [place] [address] Dec, Cervical disc disease M50.90 [facility] [address] [id number] [address] [place] [address] Nov, Cervical disc disease M50.90 [facility] [address] [id number] [address] [place] [phone] Nov, Cervical disc disease M50.90 [facility] [address] [id number] [address] [place] [phone] Oct, Cervical disc disease M50.90 [facility] [address] [id number] [address] [place] [phone] Oct, Cervical disc disease M50.90 and Acute non-recurrent maxillary sinusitis J01.00 [facility] [address] [id number] [address] [place] [phone] Sep, Cervical disc disease M50.90 [facility] [address] [id number] [address] [place] [phone] Sep, [facility] [address] [id number] [address] [place] [address] Sep, Fatigue, unspecified type R5 3.83 and Cough R05 [facility] [address] [id number] [address] [place] [id number] Aug, Cervical disc disease M50.90 [facility] [address] [facility] [id number] [address] [place] [address] Aug, Sore throat J02.9 ; Canker s ore K12.0 and History of anemia Z86.2 [facility] [address] [id number] [address] [place] [address] Jul, Cervical disc disease M50.90 [facility] [address] [id number] [address] [place] [id number] Jun, Cervical disc disease M50.90 [facility] [address] [facility] [id number] [address] [place] [address] Jun, Cervical disc disease M50.90 [facility] [address] [id number] [address] [place] [id number] May, Cervical disc disease M50.90 [facility] [address] [facility] [id number] [address] [place] [address] Apr, Cervical disc disease M50.90 [facility] [address] [facility] [id number] [address] [place] [phone] Apr, [facility] [address] [facility] [id number] [address] [place] [phone] Feb, Cervical disc disease M50.90 [facility] [address] [facility] [id number] [address] [place] [address] January, Cervical disc disease M50.90 [facility] [address] [facility] [id number] [address] [place] [phone] Nov, [facility] [address] [facility] [id number] [address] [place] [id number] Nov, Cervical disc disease M50.90 [facility] [address] [id number] [address] [place] [address] Nov, Acute cystitis with hematuri a N30.01 and Dysuria R30.0 [facility] [address] [facility] [id number] [address] [place] [address] Oct, Cervical disc disease M50.90 and Acute non-recurrent frontal sinusitis J01.10 [facility] [address] [facility] [id number] [address] [place] [address] Sep, Neck pain M54.2 [facility] [address] [facility] [id number] [address] [place] [phone] Sep, [facility] [address] [facility] [id number] [address] [place] [phone] Aug, Cervical disc disease M50.90 [facility] [address] [facility] [id number] [address] [place] [phone] Jul, [facility] [address] [facility] [id number] [address] [place] [phone] Jun, [facility] [address] [facility] [id number] [address] [place] [phone] May, [facility] [address] [facility] [id number] [address] [place] [address] May, Screening for diabetes melli tus Z13.1 ; Chronic fatigue R53.82 and Edema, unspecified type R60.9 [facility] [address] [facility] [id number] [address] [place] [phone] Apr, Neck pain M54.2 [facility] [address] [facility] [id number] [address] [place] [phone] Mar, [facility] [address] [facility] [id number] [address] [place] [phone] Mar, Neck pain M54.2 [facility] [address] [facility] [id number] [address] [place] [phone] Feb, Cervical disc disease M50.90 [facility] [address] [id number] [address] [place] [address] Feb, Cervical disc disease M50.90 [facility] [address] [id number] [address] [place] [id number] January, [facility] [address] [id number] [address] [place] [phone] January, [facility] [address] [id number] [address] [place] [phone] January, Cervical disc disease M50.90 [facility] [address] [id number] [address] [place] [phone] January, [facility] [address] [id number] [address] [place] [phone] January, [facility] [address] [id number] [address] [place] [address] Dec, Cervical disc disease M50.90 [facility] [address] [id number] [address] [place] [phone] Nov, Cervical disc disease M50.90 [facility] [address] [id number] [address] [place] [phone] Oct, Cervical disc disease M50.90 [facility] [address] [id number] [address] [place] [address] Sep, Cervical disc disease M50.90 [facility] [address] [id number] [address] [place] [id number] Aug, Dental caries K02.9 and Enco unter for dental examination Z01.20 [facility] [address] [id number] [address] [place] [phone] Aug, [facility] [address] [id number] [address] [place] [phone] Aug, [facility] [address] [id number] [address] [place] [id number] Aug, 2015 Encounter for dental examina tion Z01.20 [facility] [address] [id number] [address] [place] [phone] 16 Jul, 2015 [facility] [address] [id number] [address] [place] [phone] Jun, Sinusitis J32.9 and Cervical disc disease M50.90 [facility] [address] [id number] [address] [place] [phone] Jun, [facility] [address] [id number] [address] [place] [id number] 24 May, 2015 [facility] [address] [id number] [address] [place] [phone] May, [facility] [address] [id number] [address] [place] [phone] May, [facility] [address] [id number] [address] [place] [phone] May, [facility] [address] [id number] [address] [place] [phone] Apr, Cervical spondylosis without myelopathy 721.0 [facility] [address] [id number] [address] [place] [id number] Mar, [facility] [address] [id number] [address] [place] [phone] January, Cervical spondylosis without myelopathy 721.0 [facility] [address] [id number] [address] [place] [id number] 28 Dec, 2014 [facility] [address] [id number] [address] [place] [phone] 14 Dec, 2014 [facility] [address] [id number] [address] [place] [phone] 13 Dec, 2014 [facility] [address] [id number] [address] [place] [phone] Nov, [facility] [address] [id number] [address] [place] [address], [place] [address] Nov, [facility] [address] [id number] [address] [place] [address], [place] [address] Oct, 2014 [facility] [address] [id number] [address] [place] [address], [place] [address] Oct, 2014 [facility] [address] [id number] [address] [place] [address], [place] [address] Oct, 2014 [facility] [address] [id number] [address] [place] [address], [place] [address] Oct, 2014 [facility] [address] [id number] [address] [place] [address], [place] [address] Oct, 2014 [facility] [address] [id number] [address] [place] [address], [place] [address] Oct, 2014 [facility] [address] [id number] [address] [place] [address], [place] [address] Oct, [facility] [address] [id number] [address] [place] [address], [place] [address] Oct, [facility] [address] [id number] [address] [place] [address], [place] [address] Oct, [facility] [address] [id number] [address] [place] [address], [place] [address] Oct, [facility] [address] [id number] [address] [place] [phone] Sep, [facility] [address] [id number] [address] [place] [address], [place] [address] Sep, [facility] [address] [id number] [address] [place] [address], [place] [address] Sep, [facility] [address] [id number] [address] [place] [phone] Sep, [facility] [address] [id number] [address] [place] [address], [place] [address] Sep, [facility] [address] [id number] [address] [place] [address], [place] [address] Sep, [facility] [address] [id number] [address] [place] [address], [place] [address] Sep, [facility] [address] [id number] [address] [place] [address], [place] [address] Sep, [facility] [address] [id number] [address] [place] [address], [place] [address] Sep, [facility] [address] [id number] [address] [place] [address], [place] [address] Aug, [facility] [address] [id number] [address] [place] [address], [place] [address] Aug, [facility] [address] [id number] [address] [place] [address], [place] [address] Aug, [facility] [address] [id number] [address] [place] [address], [place] [address] Aug, [facility] [address] [id number] [address] [place] [address], [place] [address] Jul, [facility] [address] [id number] [address] [place] [address], [place] [address] Jul, [facility] [address] [id number] [address] [place] [id number] Jul, [facility] [address] [id number] [address] [place] [address], [place] [address] Jul, [facility] [address] [id number] [address] [place] [address], [place] [address] Jul, [facility] [address] [id number] [address] [place] [address] Jul, [facility] [address] [id number] [address] [place] [address], [place] [address] Jul, [facility] [address] [id number] [address] [place] [address], [place] [address] Jul, [facility] [address] [id number] [address] [place] [address], [place] [address] 27 Jun, 2014 [facility] [address] [id number] [address] [place] [address], [place] [address] 27 Jun, 2014 [facility] [address] [id number] [address] [place] [address], [place] [address] 20 Jun, 2014 [facility] [address] [id number] [address] [place] [address], [place] [address] 20 Jun, 2014 [facility] [address] [id number] [address] [place] [address], [place] [address] 16 Jun, 2014 [facility] [address] [id number] [address] [place] [address], [place] [address] 15 Jun, 2014 [facility] [address] [id number] [address] [place] [address], [place] [address] 15 Jun, 2014 [facility] [address] [id number] [address] [place] [address], [place] [address] 14 Jun, 2014 [facility] [address] [id number] [address] [place] [address], [place] [address] 14 Jun, 2014 [facility] [address] [id number] [address] [place] [address], [place] [address] 11 Jun, 2014 [facility] [address] [id number] [address] [place] [address], [place] [address] 11 Jun, 2014 [facility] [address] [id number] [address] [place] [address], [place] [address] 24 May, 2014 [facility] [address] [id number] [address] [place] [address], [place] [address] 24 May, 2014 [facility] [address] [id number] [address] [place] [address], [place] [address] 08 May, 2014 [facility] [address] [id number] [facility] [place] [address] May, [facility] [address] [id number] [address] [place] [address], [place] [address] May, [facility] [address] [id number] [facility] [place] [address] Apr, [facility] [address] [id number] [address] [place] [address], [place] [address] Apr, [facility] [address] [id number] [address] [place] [address], [place] [address] Apr, [facility] [address] [id number] [address] [place] [address], [place] [address] Apr, [facility] [address] [id number] [address] [place] [address], [place] [address] Apr, [facility] [address] [id number] [address] [place] [address], [place] [address] Apr, [facility] [address] [id number] [address] [place] [address], [place] [address] Mar, [facility] [address] [id number] [address] [place] [address], [place] [address] Mar, [facility] [address] [id number] [address] [place] [address], [place] [address] Mar, [facility] [address] [id number] [address] [place] [address], [place] [address] Mar, [facility] [address] [id number] [address] [place] [address], [place] [address] Mar, [facility] [address] [id number] [address] [place] [address], [place] [address] Mar, [facility] [address] [id number] [address] [place] [address], [place] [address] Feb, [facility] [address] [id number] [address] [place] [address], [place] [address] Feb, [facility] [address] [id number] [facility] [place] [address] Feb, [facility] [address] [id number] [address] [place] [address], [place] [address] Feb, [facility] [address] [id number] [address] [place] [address], [place] [address] Feb, [facility] [address] [id number] [address] [place] [address], [place] [address] Feb, [facility] [address] [id number] [address] [place] [address], [place] [address] Feb, [facility] [address] [id number] [address] [place] [address], [place] [address] Feb, [facility] [address] [id number] [address] [place] [address], [place] [address] January, [facility] [address] [id number] [address] [place] [address], [place] [address] January, [facility] [address] [id number] [address] [place] [address], [place] [address] January, [facility] [address] [id number] [address] [place] [address], [place] [address] January, [facility] [address] [id number] [address] [place] [address], [place] [address] January, [facility] [address] [id number] [address] [place] [address], [place] [address] January, [facility] [address] [id number] [address] [place] [address], [place] [address] January, [facility] [address] [id number] [address] [place] [address], [place] [address] January, [facility] [address] [id number] [address] [place] [address], [place] [address] Dec, [facility] [address] [id number] [facility] [place] [address] 30 Dec, 2013 [facility] [address] [id number] [address] [place] [address], [place] [address] Dec, [facility] [address] [id number] [facility] [place] [address] Dec, [facility] [address] [id number] [address] [place] [address], [place] [address] Dec, [facility] [address] [id number] [address] [place] [address], [place] [address] Dec, [facility] [address] [id number] [address] [place] [address], [place] [address] Nov, [facility] [address] [id number] [address] [place] [address], [place] [address] Nov, [facility] [address] [id number] [address] [place] [address], [place] [address] Nov, [facility] [address] [id number] [address] [place] [address], [place] [address] Nov, [facility] [address] [id number] [address] [place] [address], [place] [address] Nov, [facility] [address] [id number] [address] [place] [address], [place] [address] Nov, [facility] [address] [id number] [address] [place] [address], [place] [address] Nov, [facility] [address] [id number] [address] [place] [address], [place] [address] Nov, [facility] [address] [id number] [address] [place] [address], [place] [address] Oct, [facility] [address] [id number] [address] [place] [address], [place] [address] Oct, [facility] [address] [id number] [address] [place] [address], [place] [address] Sep, [facility] [address] [id number] [address] [place] [address], [place] [address] Sep, [facility] [address] [id number] [address] [place] [address], [place] [address] Sep, [facility] [address] [id number] [address] [place] [address], [place] [address] Sep, [facility] [address] [id number] [address] [place] [address], [place] [address] Aug, [facility] [address] [id number] [address] [place] [address], [place] [address] Aug, [facility] [address] [id number] [address] [place] [address], [place] [address] Aug, [facility] [address] [id number] [address] [place] [address], [place] [address] Aug, [facility] [address] [id number] [address] [place] [address], [place] [address] Jul, [facility] [address] [id number] [address] [place] [address], [place] [address] Jul, [facility] [address] [id number] [address] [place] [address], [place] [address] Jul, [facility] [address] [id number] [address] [place] [address], [place] [address] Jul, [facility] [address] [id number] [address] [place] [address], [place] [address] Jul, [facility] [address] [id number] [address] [place] [address], [place] [address] Jul, [facility] [address] [id number] [address] [place] [address], [place] [address] Jul, [facility] [address] [id number] [address] [place] [address], [place] [address] Jul, [facility] [address] [id number] [address] [place] [address] Jul, [facility] [address] [id number] [address] [place] [address], [place] [address] Jul, [facility] [address] [id number] [address] [place] [address] Jul, [facility] [address] [id number] [address] [place] [address], [place] [address] Jul, [facility] [address] [id number] [address] [place] [address] Jun, [facility] [address] [id number] [address] [place] [address], [place] [address] Jun, [facility] [address] [id number] [address] [place] [address], [place] [address] Jun, [facility] [address] [id number] [address] [place] [address], [place] [address] Jun, [facility] [address] [id number] [address] [place] [address], [place] [address] Jun, [facility] [address] [id number] [address] [place] [address] Jun, [facility] [address] [id number] [address] [place] [address] Jun, [facility] [address] [id number] [address] [place] [address] 02 Jun, 2013 [facility] [address] [id number] [address] [place] [address] 15 May, 2013 [facility] [address] [id number] [address] [place] [address], [place] [address] 05 May, 2013 [facility] [address] [id number] [address] [place] [address] 04 May, 2013 [facility] [address] [id number] [address] [place] [address], [place] [address] Apr, [facility] [address] [id number] [address] [place] [address], [place] [address] Apr, [facility] [address] [id number] [address] [place] [address], [place] [address] Mar, [facility] [address] [id number] [address] [place] [address], [place] [address] Mar, [facility] [address] [id number] [address] [place] [address], [place] [address] Feb, [facility] [address] [id number] [address] [place] [address], [place] [address] January, [facility] [address] [id number] [address] [place] [address], [place] [address] January, [facility] [address] [id number] [address] [place] [address], [place] [address] January, [facility] [address] [id number] [address] [place] [address], [place] [address] January, [facility] [address] [id number] [address] [place] [address], [place] [address] January, [facility] [address] [id number] [address] [place] [address], [place] [address] Dec, [facility] [address] [id number] [address] [place] [address], [place] [address] Dec, [facility] [address] [id number] [address] [place] [address], [place] [address] Dec, [facility] [address] [id number] [address] [place] [address], [place] [address] Nov, [facility] [address] [id number] [address] [place] [address], [place] [address] Oct, [facility] [address] [id number] [address] [place] [address], [place] [address] 18 Oct, 2012 [facility] [address] [id number] [address] [place] [address], [place] [address] 15 Oct, 2012 [facility] [address] [id number] [address] [place] [address], [place] [address] Sep, [facility] [address] [id number] [address] [place] [address], [place] [address] 16 Sep, 2012 [facility] [address] [id number] [address] [place] [address], [place] [address] 14 Aug, 2012 [facility] [address] [id number] [address] [place] [address], [place] [address] 14 Aug, 2012 [facility] [address] [id number] [address] [place] [address], [place] [address] Aug, [facility] [address] [id number] [address] [place] [address], [place] [address] Aug, [facility] [address] [id number] [address] [place] [address], [place] [address] Jul, [facility] [address] [id number] [address] [place] [address], [place] [address] Jul, [facility] [address] [id number] [address] [place] [address], [place] [address] Jul, [facility] [address] [id number] [address] [place] [address], [place] [address] Jul, [facility] [address] [id number] [address] [place] [address], [place] [address] Jul, [facility] [address] [id number] [address] [place] [address] 15 Jun, 2012 [facility] [address] [id number] [address] [place] [address], [place] [address] 15 Jun, 2012 [facility] [address] [id number] [address] [place] [address], [place] [address] Jun, [facility] [address] [id number] [address] [place] [address], [place] [address] 10 Jun, 2012 [facility] [address] [id number] [address] [place] [address], [place] [address] 10 May, 2012 [facility] [address] [id number] [address] [place] [address], [place] [address] Apr, [facility] [address] [id number] [address] [place] [address], [place] [address] Apr, [facility] [address] [id number] [address] [place] [address], [place] [address] Apr, [facility] [address] [id number] [address] [place] [address], [place] [address] Apr, [facility] [address] [id number] [address] [place] [address], [place] [address] January, [facility] [address] [id number] [address] [place] [address], [place] [address] January, [facility] [address] [id number] [address] [place] [address], [place] [address] Dec, [facility] [address] [id number] [address] [place] [address], [place] [address] Dec, [facility] [address] [id number] [address] [place] [address], [place] [address] Nov, [facility] [address] [id number] [address] [place] [address], [place] [address] Nov, [facility] [address] [id number] [address] [place] [address], [place] [address] Nov, [facility] [address] [id number] [address] [place] [address], [place] [address] Nov, [facility] [address] [id number] [address] [place] [address], [place] [address] Oct, [facility] [address] [id number] [address] [place] [address], [place] [address] Oct, [facility] [address] [id number] [address] [place] [address], [place] [address] Oct, [facility] [address] [id number] [address] [place] [address], [place] [address] Sep, [facility] [address] [id number] [address] [place] [address], [place] [address] Sep, [facility] [address] [id number] [address] [place] [address], [place] [address] Aug, [facility] [address] [id number] [address] [place] [address], [place] [address] Aug, [facility] [address] [id number] [address] [place] [address], [place] [address] Jul, [facility] [address] [id number] [address] [place] [address], [place] [address] Jul, [facility] [address] [id number] [address] [place] [address], [place] [address] Jul, [facility] [address] [id number] [address] [place] [address], [place] [address] Jun, [facility] [address] [id number] [address] [place] [address], [place] [address] Jun, [facility] [address] [id number] [address] [place] [address] Jun, [facility] [address] [id number] [address] [place] [address] Jun, [facility] [address] [id number] [address] [place] [address] Jun, [facility] [address] [id number] [address] [place] [address], [place] [address] Jun, [facility] [address] [id number] [address] [place] [address] Aug, [facility] [address] [id number] [address] [place] [address] Aug, [facility] [address] [id number] [address] [place] [address] 08 Aug, 2010 [facility] [address] [id number] [address] [place] [address], [place] [address] 29 Jul, 2010 [facility] [address] [id number] [address] [place] [address] 27 Jul, 2010 [facility] [address] [id number] [address] [place] [address], [place] [address] Jul, [facility] [address] [id number] [address] [place] [address] 15 Jul, 2010 [facility] [address] [id number] [address] [place] [address], [place] [address] 15 Jul, 2010 [facility] [address] [id number] [address] [place] [address], [place] [address] 08 Jul, 2010 [facility] [address] [id number] [address] [place] [address] Jun, [facility] [address] [id number] [address] [place] [address] Apr, [facility] [address] [id number] [address] [place] [address] 11 Feb, 2010 [facility] [address] [id number] [address] [place] [id number] 10 Oct, 2009 [facility] [address] [id number] [address] [place] [id number] 13 Sep, 2009 [facility] [address] [id number] [address] [place] [id number] 18 Aug, 2009 [facility] [address] [id number] [address] [place] [id number] 18 Aug, 2009 [facility] [address] [id number] [address] [place] [id number] 05 Aug, 2009 [facility] [address] [id number] [address] [place] [id number] 25 Jul, 2009 [facility] [address] [facility] [id number] [address] [place] [address] Jun, IMMUNIZATIONS No Known Immunizations SOCIAL HISTORY [...]
--- OUTSIDE RECORDS SUMMARY | 2020-02-22 17:12 | XMS REPORT ---
Author Author Marion CORREA Organization [facility] [place] Address [address] [place] [address] Care Team Providers Care Pediatric Care Coordinator Name Role Phone SHABNAM CORREA Unavailable PROBLEMS Type Condition ICD9-CM Code MGR49-LD Code Onset Dates Condition S tatus SNOMED Code Problem Acquired hypothyroidism E03.9 Active 180669844 Problem Gastro-esophageal reflux disease without esophagitis K21.9 Active 737549513 Problem Cervical disc disease M50.90 Active 333614976 Problem Dyspepsia R10.13 Active 640975401 Problem Migraine without aura and without status migrain osus, not intractable G43.009 Active [id number] ALLERGIES No Information ENCOUNTERS Encounter Location Date Diagnosis [place] [address] [address] Oct, [place] [address] [address] Oct, Cervical disc disease M50.90 [place] [address] [address] Oct, Contusion of left knee, initial encounte r S80.02XA [place] [address] [address] Oct, Cervical disc disease M50.90 [facility] [address] [facility] [id number] [address] [place] [address] Oct, [facility] N [facility] [id number] [address] [place] [address] Oct, Acute pain of left knee M25. 562 [place] [address] [place] [id number] [place] [address] Sep, [place] [address] [place] [id number] [place] [address] Sep, Cervical disc disease M50.90 [facility] [place] [address] [address] Sep, Cervical disc disease M50.90 [facility] [place] [address] [place] [id number] [place] [address] Aug, Cervical disc disease M50.90 [facility] [place] [address] [address] Aug, [facility] [place] [address] [address] Jul, Cervical disc disease M50.90 [facility] [place] [address] [address] Jun, Cervical disc disease M50.90 [facility] [place] [address] [address] May, [facility] [place] [address] [address] May, Cervical disc disease M50.90 [facility] [address] [facility] [id number] [address] [place] [address] May, Acute cystitis with hematuri a N30.01 and UTI symptoms R39.9 [facility] [place] [address] [place] [id number] [place] [address] May, [facility] [place] [address] [address] Apr, Cervical disc disease M50.90 [facility] [place] [address] [address] Apr, Cervical disc disease M50.90 ; Gastro-es ophageal reflux disease without esophagitis K21.9 and Sinus headache R51 [facility] [place] [address] [place] [id number] [place] [address] Apr, [facility] [place] [address] [address] Apr, Cervical disc disease M50.90 [facility] [place] [address] [id number] [place] [address] Mar, [facility] [place] [address] [place] [id number] [place] [address] Mar, Cervical disc disease M50.90 [facility] [place] [address] [place] [id number] [place] [address] Feb, [place] [address] [place] [address] Feb, Cervical disc disease M50.90 [address] [place] [address] January, [facility] [place] [address] [place] [id number] [place] [address] January, Cervical disc disease M50.90 [place] [address] [address] January, Cervical disc disease M50.90 [facility] [place] [address] [place] [id number] [place] [address] Dec, Cervical disc disease M50.90 [place] [address] [address] Dec, Cervical disc disease M50.90 [place] [address] [address] Dec, Cervical disc disease M50.90 [facility] [place] [address] [address] Dec, Cervical disc disease M50.90 ; Acquired hypothyroidism E03.9 and Migraine without aura and without status migrainosus, not intractable G43.009 [facility] [place] [address] [place] [id number] [place] [address] Nov, [facility] [place] [address] [address] Nov, Cervical disc disease M50.90 [place] [address] [place] [id number] [place] [address] Oct, Cervical disc disease M50.90 [facility] [place] [address] [place] [id number] [place] [address] Sep, [facility] [place] [address] [place] [id number] [place] [address] Sep, Cervical disc disease M50.90 [facility] [place] [address] [place] [id number] [place] [address] Aug, Cervical disc disease M50.90 [facility] [place] [address] [place] [id number] [place] [address] Jul, Cervical disc disease M50.90 [facility] [place] [address] [place] [id number] [place] [address] Jun, Acute recurrent pansinusitis J01.41 and Cervical disc disease M50.90 [facility] [place] [address] [place] [id number] [place] [address] Jun, Cervical disc disease M50.90 [facility] [place] [address] [place] [id number] [place] [address] May, Cervical disc disease M50.90 [facility] [place] [address] [place] [id number] [place] [address] Apr, Cervical disc disease M50.90 [facility] [place] [address] [place] [id number] [place] [address] Mar, Cervical disc disease M50.90 [facility] [place] [address] [place] [id number] [place] [address] Mar, [facility] [place] [address] [place] [id number] [place] [address] Mar, Cervical disc disease M50.90 [facility] [place] [address] [place] [id number] [place] [address] Feb, Cervical disc disease M50.90 [facility] [place] [address] [place] [id number] [place] [address] January, Cervical disc disease M50.90 [facility] [place] [address] [address] Dec, [facility] [place] [address] [address] Dec, Cervical disc disease M50.90 [facility] [place] [address] [address] Nov, Cervical disc disease M50.90 [facility] [place] [address] [address] Nov, Cervical disc disease M50.90 [place] [address] [address] Oct, Cervical disc disease M50.90 [place] [address] [address] Oct, Cervical disc disease M50.90 and Acute n on-recurrent maxillary sinusitis J01.00 [place] [address] [address] Sep, Cervical disc disease M50.90 [facility] [address] [address] Sep, [facility] [address] [address] Sep, Fatigue, unspecified type R5 3.83 and Cough R05 [place] [address] [address] Aug, Cervical disc disease M50.90 [facility] [address] [address] Aug, Sore throat J02.9 ; Canker s ore K12.0 and History of anemia Z86.2 [place] [address] [address] Jul, Cervical disc disease M50.90 [place] [address] [address] Jun, Cervical disc disease M50.90 [facility] [place] [address] [address] Jun, Cervical disc disease M50.90 [facility] [place] [address] [address] May, Cervical disc disease M50.90 [facility] [place] [address] [address] Apr, Cervical disc disease M50.90 [facility] [place] [address] [address] Apr, [facility] [place] [address] [address] Feb, Cervical disc disease M50.90 [facility] [place] [address] [address] January, Cervical disc disease M50.90 [facility] [place] [address] [address] Nov, [facility] [place] [address] [address] Nov, Cervical disc disease M50.90 [facility] [address] [facility] [id number] [address] [place] [address] Nov, Acute cystitis with hematuri a N30.01 and Dysuria R30.0 [facility] [place] [address] [address] Oct, Cervical disc disease M50.90 and Acute n on-recurrent frontal sinusitis J01.10 [facility] [place] [address] [address] Sep, Neck pain M54.2 [place] [address] [address] Sep, [facility] [place] [address] [address] Aug, Cervical disc disease M50.90 [facility] [place] [address] [place] [id number] [place] [address] Jul, [facility] [place] [address] [address] Jun, [facility] [place] [address] [place] [id number] [place] [address] May, [facility] [place] [address] [address] May, Screening for diabetes mellitus Z13.1 ; Chronic fatigue R53.82 and Edema, unspecified type R60.9 [facility] [place] [address] [place] [id number] [place] [address] Apr, Neck pain M54.2 [facility] [place] [address] [address] Mar, [facility] [place] [address] [address] Mar, Neck pain M54.2 [facility] [place] [address] [place] [id number] [place] [address] Feb, Cervical disc disease M50.90 [facility] [place] [address] [place] [id number] [place] [address] Feb, Cervical disc disease M50.90 [facility] [place] [address] [place] [id number] [place] [address] January, [facility] [place] [address] [place] [id number] [place] [address] January, [facility] [place] [address] [place] [id number] [place] [address] January, Cervical disc disease M50.90 [facility] [place] [address] [place] [id number] [place] [address] January, [facility] [place] [address] [place] [id number] [place] [address] January, [facility] [place] [address] [address] 04 Dec, 2015 Cervical disc disease M50.90 [facility] [place] [address] [address] Nov, Cervical disc disease M50.90 [facility] [place] [address] [address] 08 Oct, 2015 Cervical disc disease M50.90 [facility] [place] [address] [address] Sep, Cervical disc disease M50.90 [facility] [address] [id number] Aug, Dental caries K02.9 and Encounter for de ntal examination Z01.20 [facility] [place] [address] [address] Aug, [facility] [place] [address] [address] Aug, [facility] [address] [id number] Aug, Encounter for dental examination Z01.20 [facility] [place] [address] [address] Jul, [facility] [place] [address] [address] Jun, Sinusitis J32.9 and Cervical disc diseas e M50.90 [facility] [place] [address] [address] Jun, [facility] [place] [address] [address] 24 May, 2015 [facility] [place] [address] [address] 23 May, 2015 [facility] [place] [address] [address] 22 May, 2015 [facility] [place] [address] [address] May, [facility] [address] [place] [id number] [place] [address] Apr, Cervical spondylosis without myelopathy 721.0 [facility] [address] [id number] [place] [address] Mar, [facility] [address] [place] [id number] [place] [address] January, Cervical spondylosis without myelopathy 721.0 [facility] [address] [place] [id number] [place] [address] Dec, [facility] [address] [place] [id number] [place] [address] Dec, [facility] [address] [place] [id number] [place] [address] Dec, [facility] [address] [place] [id number] [place] [address] Nov, [facility] [address] [place] [id number] [place] [address] Nov, [facility] [address] [place] [id number] [place] [address] Oct, [facility] [address] [place] [id number] [place] [address] Oct, [facility] [address] [place] [id number] [place] [address] Oct, [facility] [address] [place] [id number] [place] [address] Oct, [facility] [address] [place] [id number] [place] [address] Oct, [facility] [address] [place] [id number] [place] [address] Oct, [facility] [address] [place] [id number] [place] [address] Oct, [facility] [address] [place] [id number] [place] [address] Oct, [facility] [address] [id number] [place] [address] Oct, [facility] [address] [id number] [place] [address] Oct, [facility] [address] [id number] [place] [address] Sep, [facility] [address] [id number] [place] [address] Sep, [facility] [address] [id number] [place] [address] Sep, [facility] [address] [id number] [place] [address] Sep, [facility] [address] [id number] [place] [address] Sep, [facility] [address] [id number] [place] [address] Sep, [facility] [address] [id number] [place] [address] Sep, [facility] [address] [id number] [place] [address] Sep, [facility] [address] [id number] [place] [address] Sep, [facility] [address] [id number] [place] [address] Aug, [facility] [address] [id number] [place] [address] Aug, [facility] [address] [id number] [place] [address] Aug, [facility] [address] [id number] [place] [address] Aug, [facility] [address] [id number] [place] [address] Jul, [facility] [address] [id number] [place] [address] Jul, [facility] [address] [id number] [place] [address] Jul, [facility] [address] [id number] [place] [address] Jul, [facility] [address] [id number] [place] [address] Jul, [facility] [address] [id number] [place] [address] Jul, [facility] [address] [id number] [place] [address] Jul, [facility] [address] [id number] [place] [address] Jul, [facility] [address] [id number] [place] [address] Jun, [facility] [address] [id number] [place] [address] 27 Jun, 2014 [facility] [address] [id number] [place] [address] 20 Jun, 2014 [facility] [address] [id number] [place] [address] 20 Jun, 2014 [facility] [address] [id number] [place] [address] 16 Jun, 2014 [facility] [address] [id number] [place] [address] 15 Jun, 2014 [facility] [address] [id number] [place] [address] 15 Jun, 2014 [facility] [address] [id number] [place] [address] 14 Jun, 2014 [facility] [address] [id number] [place] [address] 14 Jun, 2014 [facility] [address] [id number] [place] [address] Jun, [facility] [address] [facility] [id number] [place] [address] Jun, [facility] [address] [facility] [id number] [place] [address] May, [facility] [address] [facility] [id number] [place] [address] May, [facility] [address] [id number] [place] [address] May, [facility] [address] [facility] [id number] [place] [address] May, [facility] [address] [id number] [place] [address] May, [facility] [address] [id number] [place] [address] Apr, [facility] [address] [id number] [place] [address] Apr, [facility] [address] [id number] [place] [address] Apr, [facility] [address] [id number] [place] [address] Apr, [facility] [address] [id number] [place] [address] Apr, [facility] [address] [id number] [place] [address] Apr, [facility] [address] [facility] [id number] [place] [address] Mar, [facility] [address] [facility] [id number] [place] [address] Mar, [facility] [address] [id number] [place] [address] Mar, [facility] [address] [id number] [place] [address] Mar, [facility] [address] [id number] [place] [address] Mar, [facility] [address] [facility] [id number] [facility] [address] Mar, [facility] [address] [facility] [id number] [place] [address] Feb, [facility] [address] [id number] [place] [address] Feb, [facility] [address] [id number] [place] [address] Feb, [facility] [address] [facility] [id number] [facility] [address] Feb, [facility] [address] [id number] [place] [address] Feb, [facility] [address] [id number] [place] [address] Feb, [facility] [address] [id number] [place] [address] Feb, [facility] [address] [id number] [place] [address] Feb, [facility] [address] [id number] [place] [address] January, [facility] [address] [id number] [place] [address] January, [facility] [address] [id number] [place] [address] January, [facility] [address] [facility] [id number] [place] [address] January, [facility] [address] [id number] [place] [address] January, [facility] [address] [id number] [place] [address] January, [facility] [address] [id number] [place] [address] January, [facility] [address] [id number] [place] [address] January, [facility] [address] [id number] [place] [address] Dec, [facility] [address] [id number] [place] [address] Dec, [facility] [address] [id number] [place] [address] Dec, [facility] [address] [id number] [place] [address] Dec, [facility] [address] [id number] [place] [address] Dec, [facility] [address] [id number] [place] [address] Dec, [facility] [address] [id number] [place] [address] Nov, [facility] [address] [id number] [place] [address] Nov, [facility] [address] [id number] [place] [address] Nov, [facility] [address] [id number] [place] [address] Nov, [facility] [address] [id number] [place] [address] Nov, [facility] [address] [id number] [place] [address] Nov, [facility] [address] [id number] [place] [address] Nov, [facility] [address] [id number] [place] [address] Nov, [facility] [address] [id number] [place] [address] Oct, [facility] [address] [id number] [place] [address] Oct, [facility] [address] [id number] [place] [address] Sep, [facility] [address] [id number] [place] [address] Sep, [facility] [address] [id number] [place] [address] Sep, [facility] [address] [id number] [place] [address] Sep, [facility] [address] [id number] [place] [address] Aug, [facility] [address] [id number] [place] [address] Aug, [facility] [address] [id number] [place] [address] Aug, [facility] [address] [id number] [place] [address] Aug, [facility] [address] [id number] [place] [address] Jul, [facility] [address] [id number] [place] [address] Jul, [facility] [address] [id number] [place] [address] Jul, [facility] [address] [id number] [place] [address] Jul, [facility] [address] [id number] [place] [address] Jul, [facility] [address] [id number] [place] [address] Jul, [facility] [address] [id number] [place] [address] Jul, [facility] [address] [id number] [place] [address] Jul, [facility] [address] [id number] [place] [address] Jul, [facility] [address] [id number] [place] [address] Jul, [facility] [address] [id number] [place] [address] Jul, [facility] [address] [id number] [place] [address] Jul, [facility] [address] [id number] [place] [address] Jun, [facility] [address] [id number] [place] [address] Jun, [facility] [address] [id number] [place] [address] Jun, [facility] [facility] [address] [id number] [place] [address] Jun, [facility] [address] [id number] [place] [address] Jun, [facility] [address] [id number] [place] [address] Jun, [facility] [address] [id number] [place] [address] Jun, [facility] [address] [id number] [place] [address] Jun, [facility] [address] [id number] [place] [address] 15 May, 2013 [facility] [address] [id number] [place] [address] May, [facility] [address] [id number] [place] [address] May, [facility] [address] [id number] [place] [address] Apr, [facility] [address] [id number] [place] [address] Apr, [facility] [address] [id number] [place] [address] Mar, [facility] [address] [id number] [place] [address] Mar, [facility] [address] [id number] [place] [address] Feb, [facility] [address] [id number] [place] [address] January, [facility] [address] [id number] [place] [address] January, [facility] [address] [id number] [place] [address] January, [facility] [address] [id number] [place] [address] January, [facility] [address] [id number] [place] [address] January, [facility] [address] [id number] [place] [address] Dec, [facility] [address] [id number] [place] [address] Dec, [facility] [address] [id number] [place] [address] Dec, [facility] [address] [id number] [place] [address] Nov, [facility] [address] [id number] [place] [address] Oct, [facility] [address] [id number] [place] [address] Oct, [facility] [address] [id number] [place] [address] Oct, [facility] [address] [id number] [place] [address] Sep, [facility] [address] [id number] [place] [address] 16 Sep, 2012 [facility] [address] [facility] [id number] [place] [address] 14 Aug, 2012 [facility] [address] [id number] [place] [address] 14 Aug, 2012 [facility] [address] [id number] [place] [address] Aug, [facility] [address] [id number] [place] [address] Aug, [facility] [address] [facility] [id number] [place] [address] Jul, [facility] [address] [id number] [place] [address] Jul, [facility] [address] [id number] [place] [address] Jul, [facility] [address] [id number] [place] [address] Jul, [facility] [address] [id number] [place] [address] Jul, [facility] [address] [id number] [place] [address] 15 Jun, 2012 [facility] [address] [id number] [place] [address] 15 Jun, 2012 [facility] [address] [id number] [place] [address] 10 Jun, 2012 [facility] [address] [id number] [place] [address] 10 Jun, 2012 [facility] [address] [id number] [place] [address] 10 May, 2012 [facility] [address] [id number] [place] [address] 13 Apr, 2012 [facility] [address] [id number] [place] [address] Apr, [facility] [address] [id number] [place] [address] Apr, [facility] [address] [id number] [place] [address] Apr, [facility] [address] [id number] [place] [address] January, [facility] [address] [id number] [place] [address] January, [facility] [address] [id number] [place] [address] Dec, [facility] [address] [id number] [place] [address] Dec, [facility] [address] [id number] [place] [address] Nov, [facility] [address] [id number] [place] [address] Nov, [facility] [address] [id number] [place] [address] Nov, [facility] [address] [id number] [place] [address] Nov, [facility] [address] [id number] [place] [address] Oct, [facility] [address] [id number] [place] [address] Oct, [facility] [address] [id number] [place] [address] Oct, [facility] [address] [id number] [place] [address] Sep, [facility] [address] [id number] [place] [address] Sep, [facility] [address] [id number] [place] [address] Aug, [facility] [address] [id number] [place] [address] Aug, [facility] [address] [id number] [place] [address] 15 Jul, 2011 [facility] [address] [id number] [place] [address] Jul, [facility] [address] [id number] [place] [address] Jul, [facility] [address] [id number] [place] [address] Jun, [facility] [address] [id number] [place] [address] Jun, [facility] [address] [id number] [place] [address] Jun, [facility] [address] [id number] [place] [address] Jun, [facility] [address] [id number] [place] [address] Jun, [facility] [address] [id number] [place] [address] Jun, [facility] [address] [id number] [place] [address] Aug, [facility] [address] [id number] [place] [address] Aug, [facility] [address] [id number] [place] [address] Aug, [facility] [address] [id number] [place] [address] 29 Jul, 2010 [facility] [address] [id number] [place] [address] Jul, [facility] [address] [id number] [place] [address] Jul, [facility] [address] [id number] [place] [address] 15 Jul, 2010 [facility] [address] [id number] [place] [address] 15 Jul, 2010 [facility] [place] [address] [id number] [place] [address] Jul, [facility] [place] [address] [id number] [place] [address] Jun, [facility] [place] [address] [id number] [place] [address] 10 Apr, 2010 [facility] [place] [address] [id number] [place] [address] Feb, [facility] [place] [address] [id number] [place] [address] Oct, [facility] [place] [address] [id number] [place] [address] Sep, [facility] [place] [address] [id number] [place] [address] Aug, [facility] [place] [address] [id number] [place] [address] Aug, [facility] [place] [address] [id number] [place] [address] Aug, [facility] [place] [address] [id number] [place] [address] Jul, [facility] [place] [address] [id number] [place] [address] Jun, IMMUNIZATIONS No Known Immunizations SOCIAL HISTORY [...]
--- OUTSIDE RECORDS SUMMARY | 2020-02-22 17:13 | XMS REPORT ---
Author Author Marion TRUJILLO Organization 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 Name Role Phone ZACKARY TRUJILLO Unavailable PROBLEMS Type Condition ICD9-CM Code PWC87-SS Code Onset Dates Condition S tatus SNOMED Code Problem Acquired hypothyroidism E03.9 Active 398674573 Problem Gastro-esophageal reflux disease without esophagitis K21.9 Active 485096608 Problem Cervical disc disease M50.90 Active 631907068 Problem Dyspepsia R10.13 Active 799141471 Problem Migraine without aura and without status migrain osus, not intractable G43.009 Active [id number] ALLERGIES No Information ENCOUNTERS Encounter Location Date Diagnosis [place] [address] [address] Oct, [place] [address] [address] Oct, Cervical disc disease M50.90 [place] [address] [address] Oct, Contusion of left knee, initial encounte r S80.02XA [place] [address] [address] Oct, Cervical disc disease M50.90 [facility] [address] [place] [id number] [place] [address] Oct, [facility] N [facility] [id number] [address] [place] [address] Oct, Acute pain of left knee M25. 562 [place] [address] [address] Sep, [place] [address] [address] Sep, Cervical disc disease M50.90 [facility] [address] [address] Sep, Cervical disc disease M50.90 [facility] [address] [address] Aug, Cervical disc disease M50.90 [facility] [address] [address] Aug, [facility] [address] [address] Jul, Cervical disc disease M50.90 [facility] [address] [address] Jun, Cervical disc disease M50.90 [facility] [address] [address] May, [facility] [address] [address] May, Cervical disc disease M50.90 [facility] [address] [facility] [id number] [address] [place] [address] May, Acute cystitis with hematuri a N30.01 and UTI symptoms R39.9 [facility] [address] [address] May, [facility] [address] [address] Apr, Cervical disc disease M50.90 [facility] [address] [address] Apr, Cervical disc disease M50.90 ; Gastro-es ophageal reflux disease without esophagitis K21.[address]51 [facility] [address] [place] [id number] [place] [address] Apr, [facility] [address] [address] Apr, Cervical disc disease M50.90 [facility] [address] [place] [id number] [place] [address] Mar, [facility] [address] [address] Mar, Cervical disc disease M50.90 [facility] [address] [address] Feb, [address] [place] [address] Feb, Cervical disc disease M50.90 [address] [place] [address] January, [facility] [address] [place] [id number] [place] [address] January, Cervical disc disease M50.90 [place] [address] [address] January, Cervical disc disease M50.90 [facility] [address] [address] Dec, Cervical disc disease M50.90 [facility] [address] [address] Dec, Cervical disc disease M50.90 [place] [address] [address] Dec, Cervical disc disease M50.90 [facility] [address] [address] Dec, Cervical disc disease M50.90 ; Acquired hypothyroidism E03.9 and Migraine without aura and without status migrainosus, not intractable G43.009 [facility] [address] [address] Nov, [facility] [address] [address] Nov, Cervical disc disease M50.90 [facility] [address] [place] [id number] [place] [address] Oct, Cervical disc disease M50.90 [facility] [address] [place] [id number] [place] [address] Sep, [facility] [address] [place] [id number] [place] [address] Sep, Cervical disc disease M50.90 [facility] [address] [place] [id number] [place] [address] Aug, Cervical disc disease M50.90 [facility] [address] [place] [id number] [place] [address] Jul, Cervical disc disease M50.90 [facility] [address] [place] [id number] [place] [address] Jun, Acute recurrent pansinusitis J01.41 and Cervical disc disease M50.90 [facility] [address] [place] [id number] [place] [address] Jun, Cervical disc disease M50.90 [facility] [address] [place] [id number] [place] [address] May, Cervical disc disease M50.90 [facility] [address] [place] [id number] [place] [address] Apr, Cervical disc disease M50.90 [facility] [address] [place] [id number] [place] [address] Mar, Cervical disc disease M50.90 [facility] [address] [place] [id number] [place] [address] Mar, [facility] [address] [place] [id number] [place] [address] Mar, Cervical disc disease M50.90 [facility] [address] [place] [id number] [place] [address] Feb, Cervical disc disease M50.90 [facility] [address] [place] [id number] [place] [address] January, Cervical disc disease M50.90 [facility] [address] [place] [id number] [place] [address] Dec, [facility] [address] [address] Dec, Cervical disc disease M50.90 [facility] [address] [address] Nov, Cervical disc disease M50.90 [facility] [address] [address] Nov, Cervical disc disease M50.90 [place] [address] [address] Oct, Cervical disc disease M50.90 [place] [address] [address] Oct, Cervical disc disease M50.90 and Acute n on-recurrent maxillary sinusitis J01.00 [place] [address] [address] Sep, Cervical disc disease M50.90 [facility] [address] [place] [id number] [address] [place] [address] Sep, [facility] [address] [place] [address] Sep, Fatigue, unspecified type R5 3.83 and Cough R05 [place] [address] [address] Aug, Cervical disc disease M50.90 [facility] [address] [place] [id number] [address] [place] [address] Aug, Sore throat J02.9 ; Canker s ore K12.0 and History of anemia Z86.2 [place] [address] [place] [id number] [place] [address] Jul, Cervical disc disease M50.90 [place] [address] [address] Jun, Cervical disc disease M50.90 [facility] [address] [address] Jun, Cervical disc disease M50.90 [facility] [address] [address] May, Cervical disc disease M50.90 [facility] [address] [address] Apr, Cervical disc disease M50.90 [facility] [address] [address] Apr, [place] [address] [address] Feb, Cervical disc disease M50.90 [place] [address] [address] January, Cervical disc disease M50.90 [facility] [address] [address] Nov, [place] [address] [address] Nov, Cervical disc disease M50.90 [facility] [address] [facility] [id number] [address] [place] [address] Nov, Acute cystitis with hematuri a N30.01 and Dysuria R30.0 [place] [address] [address] Oct, Cervical disc disease M50.90 and Acute n on-recurrent frontal sinusitis J01.10 [place] [address] [address] Sep, Neck pain M54.2 [place] [address] [address] Sep, [facility] [address] [address] Aug, Cervical disc disease M50.90 [facility] [address] [place] [id number] [place] [address] Jul, [facility] [address] [place] [id number] [place] [address] Jun, [facility] [address] [place] [id number] [place] [address] May, [facility] [address] [address] May, Screening for diabetes mellitus Z13.1 ; Chronic fatigue R53.82 and Edema, unspecified type R60.9 [facility] [address] [place] [id number] [place] [address] Apr, Neck pain M54.2 [facility] [address] [address] Mar, [facility] [address] [address] Mar, Neck pain M54.2 [facility] [address] [place] [id number] [place] [address] Feb, Cervical disc disease M50.90 [facility] [address] [place] [id number] [place] [address] Feb, Cervical disc disease M50.90 [facility] [address] [place] [id number] [place] [address] January, [facility] [address] [place] [id number] [place] [address] January, [facility] [address] [place] [id number] [place] [address] January, Cervical disc disease M50.90 [facility] [address] [place] [id number] [place] [address] January, [facility] [address] [place] [id number] [place] [address] January, [facility] [address] [address] Dec, Cervical disc disease M50.90 [facility] [address] [address] Nov, Cervical disc disease M50.90 [facility] [address] [address] Oct, Cervical disc disease M50.90 [facility] [address] [address] Sep, Cervical disc disease M50.90 [facility] [address] [id number] Aug, Dental caries K02.9 and Encounter for de ntal examination Z01.20 [facility] [address] [address] Aug, [facility] [address] [address] Aug, [facility] [address] [id number] Aug, Encounter for dental examination Z01.20 [facility] [address] [address] Jul, [facility] [address] [address] Jun, Sinusitis J32.9 and Cervical disc diseas e M50.90 [facility] [address] [address] Jun, [facility] [address] [address] 24 May, 2015 [facility] [address] [address] 23 May, 2015 [facility] [address] [address] 22 [address], 2015 [facility] [address] [address] May, [facility] [place] [facility] [address] [id number] [place] [address] Apr, Cervical spondylosis without myelopathy 721.0 [facility] [place] [facility] [address] [id number] [place] [address] Mar, [facility] [place] [facility] [address] [id number] [place] [address] January, Cervical spondylosis without myelopathy 721.0 [facility] [place] [facility] [address] [id number] [place] [address] Dec, [facility] [place] [facility] [address] [place] [id number] [place] [address] Dec, [facility] [place] [facility] [address] [place] [id number] [place] [address] Dec, [facility] [place] [facility] [address] [place] [id number] [place] [address] Nov, [facility] [place] [facility] [address] [place] [id number] [place] [address] Nov, [facility] [place] [facility] [address] [place] [id number] [place] [address] Oct, [facility] [place] [facility] [address] [place] [id number] [place] [address] Oct, [facility] [place] [facility] [address] [place] [id number] [place] [address] Oct, [facility] [place] [facility] [address] [place] [id number] [place] [address] Oct, [facility] [place] [facility] [address] [place] [id number] [place] [address] Oct, [facility] [place] [facility] [address] [place] [id number] [place] [address] Oct, [facility] [place] [facility] [address] [place] [id number] [place] [address] Oct, [facility] [place] [facility] [address] [place] [id number] [place] [address] Oct, 2014 [facility] [place] [facility] [address] [facility] [id number] [place] [address] Oct, [facility] [place] [facility] [address] [id number] [place] [address] Oct, [facility] [place] [facility] [address] [id number] [place] [address] Sep, [facility] [place] [facility] [address] [id number] [place] [address] Sep, [facility] [place] [facility] [address] [id number] [place] [address] Sep, [facility] [place] [facility] [address] [id number] [place] [address] Sep, [facility] [place] [facility] [address] [id number] [place] [address] Sep, [facility] [place] [facility] [address] [id number] [place] [address] Sep, [facility] [place] [facility] [address] [id number] [place] [address] Sep, [facility] [place] [facility] [address] [id number] [place] [address] Sep, [facility] [place] [facility] [address] [id number] [place] [address] Sep, [facility] [place] [facility] [address] [id number] [place] [address] Aug, [facility] [place] [facility] [address] [id number] [place] [address] Aug, [facility] [place] [facility] [address] [id number] [place] [address] Aug, [facility] [place] [facility] [address] [id number] [place] [address] Aug, [facility] [place] [facility] [address] [id number] [place] [address] Jul, [facility] [place] [facility] [address] [id number] [place] [address] Jul, [facility] [place] [facility] [address] [id number] [place] [address] Jul, [facility] [place] [facility] [address] [id number] [place] [address] Jul, [facility] [place] [facility] [address] [id number] [place] [address] Jul, [facility] [place] [facility] [address] [id number] [place] [address] Jul, [facility] [place] [facility] [address] [id number] [place] [address] Jul, [facility] [place] [facility] [address] [id number] [place] [address] Jul, [facility] [place] [facility] [address] [id number] [place] [address] Jun, [facility] [place] [facility] [address] [id number] [place] [address] 27 Jun, 2014 [facility] [place] [facility] [address] [id number] [place] [address] 20 Jun, 2014 [facility] [place] [facility] [address] [id number] [place] [address] 20 Jun, 2014 [facility] [place] [facility] [address] [id number] [place] [address] 16 Jun, 2014 [facility] [place] [facility] [address] [id number] [place] [address] 15 Jun, 2014 [facility] [place] [facility] [address] [id number] [place] [address] 15 Jun, 2014 [facility] [place] [facility] [address] [id number] [place] [address] 14 Jun, 2014 [facility] [place] [facility] [address] [id number] [place] [address] 14 Jun, 2014 [facility] [place] [facility] [address] [id number] [place] [address] Jun, [facility] [place] [facility] [address] [facility] [id number] [place] [address] Jun, [facility] [place] [facility] [address] [facility] [id number] [facility] [address] May, [facility] [place] [facility] [address] [facility] [id number] [place] [address] May, [facility] [place] [facility] [address] [facility] [id number] [place] [address] May, [facility] [place] [facility] [address] [facility] [id number] [facility] [address] May, [facility] [place] [facility] [address] [facility] [id number] [place] [address] May, [facility] [place] [facility] [address] [id number] [place] [address] Apr, [facility] [place] [facility] [address] [id number] [place] [address] Apr, [facility] [place] [facility] [address] [facility] [id number] [place] [address] Apr, [facility] [place] [facility] [address] [id number] [place] [address] Apr, [facility] [place] [facility] [address] [facility] [id number] [place] [address] Apr, [facility] [place] [facility] [address] [id number] [place] [address] Apr, [facility] [place] [facility] [address] [facility] [id number] [place] [address] Mar, [facility] [place] [facility] [address] [facility] [id number] [place] [address] Mar, [facility] [place] [facility] [address] [facility] [id number] [place] [address] Mar, [facility] [place] [facility] [address] [id number] [place] [address] Mar, [facility] [place] [facility] [address] [facility] [id number] [place] [address] Mar, [facility] [place] [facility] [address] [id number] [place] [address] Mar, [facility] [place] [facility] [address] [id number] [place] [address] Feb, [facility] [place] [facility] [address] [id number] [place] [address] Feb, [facility] [place] [facility] [address] [id number] [place] [address] Feb, [facility] [place] [facility] [address] [facility] [id number] [place] [address] Feb, [facility] [place] [facility] [address] [id number] [place] [address] Feb, [facility] [place] [facility] [address] [id number] [place] [address] Feb, [facility] [place] [facility] [address] [id number] [place] [address] Feb, [facility] [place] [facility] [address] [id number] [place] [address] Feb, [facility] [place] [facility] [address] [id number] [place] [address] January, [facility] [place] [facility] [address] [id number] [place] [address] January, [facility] [place] [facility] [address] [id number] [place] [address] January, [facility] [place] [facility] [address] [facility] [id number] [place] [address] January, [facility] [place] [facility] [address] [id number] [place] [address] January, [facility] [place] [facility] [address] [id number] [place] [address] January, [facility] [place] [facility] [address] [id number] [place] [address] January, [facility] [place] [facility] [address] [id number] [place] [address] January, [facility] [place] [facility] [address] [id number] [place] [address] Dec, [facility] [place] [facility] [address] [id number] [place] [address] Dec, [facility] [place] [facility] [address] [id number] [place] [address] Dec, [facility] [place] [facility] [address] [id number] [place] [address] Dec, [facility] [place] [facility] [address] [id number] [place] [address] Dec, [facility] [place] [facility] [address] [id number] [place] [address] Dec, [facility] [place] [facility] [address] [id number] [place] [address] Nov, [facility] [place] [facility] [address] [id number] [place] [address] Nov, [facility] [address] [id number] [place] [address] Nov, [facility] [address] [id number] [place] [address] Nov, [facility] [address] [id number] [place] [address] Nov, [facility] [address] [id number] [place] [address] Nov, [facility] [address] [id number] [place] [address] Nov, [facility] [address] [id number] [place] [address] Nov, [facility] [address] [id number] [place] [address] Oct, [facility] [address] [id number] [place] [address] Oct, [facility] [address] [id number] [place] [address] Sep, [facility] [address] [id number] [place] [address] Sep, [facility] [address] [id number] [place] [address] Sep, [facility] [address] [id number] [place] [address] Sep, [facility] [address] [id number] [place] [address] Aug, [facility] [address] [id number] [place] [address] Aug, [facility] [address] [id number] [place] [address] Aug, [facility] [address] [id number] [place] [address] Aug, [facility] [address] [id number] [place] [address] Jul, [facility] [address] [id number] [place] [address] Jul, [facility] [address] [id number] [place] [address] Jul, [facility] [address] [id number] [place] [address] Jul, [facility] [address] [id number] [place] [address] Jul, [facility] [address] [id number] [place] [address] Jul, [facility] [address] [id number] [place] [address] Jul, [facility] [address] [id number] [place] [address] Jul, [facility] [address] [id number] [place] [address] Jul, [facility] [address] [id number] [place] [address] Jul, [facility] [address] [id number] [place] [address] Jul, [facility] [address] [id number] [place] [address] Jul, [facility] [address] [id number] [place] [address] Jun, [facility] [address] [id number] [place] [address] Jun, [facility] [address] [id number] [place] [address] Jun, [facility] [address] [id number] [place] [address] Jun, [facility] [address] [id number] [place] [address] Jun, [facility] [address] [id number] [place] [address] Jun, [facility] [address] [id number] [place] [address] Jun, [facility] [address] [id number] [place] [address] Jun, [facility] [address] [id number] [place] [address] 15 May, 2013 [facility] [address] [id number] [place] [address] 05 May, 2013 [facility] [address] [id number] [place] [address] May, [facility] [address] [id number] [place] [address] Apr, [facility] [address] [id number] [place] [address] Apr, [facility] [address] [id number] [place] [address] Mar, [facility] [address] [id number] [place] [address] Mar, [facility] [address] [id number] [place] [address] Feb, [facility] [address] [id number] [place] [address] January, [facility] [address] [id number] [place] [address] January, [facility] [address] [id number] [place] [address] January, [facility] [address] [id number] [place] [address] January, [facility] [address] [id number] [place] [address] January, [facility] [address] [id number] [place] [address] Dec, [facility] [address] [id number] [place] [address] Dec, [facility] [address] [id number] [place] [address] Dec, [facility] [address] [id number] [place] [address] Nov, [facility] [address] [id number] [place] [address] Oct, [facility] [address] [id number] [place] [address] Oct, [facility] [address] [id number] [place] [address] Oct, [facility] [address] [id number] [place] [address] Sep, [facility] [address] [id number] [place] [address] 16 Sep, 2012 [facility] [address] [facility] [id number] [place] [address] 14 Aug, 2012 [facility] [address] [id number] [place] [address] 14 Aug, 2012 [facility] [address] [id number] [place] [address] Aug, [facility] [address] [id number] [place] [address] Aug, [facility] [address] [id number] [place] [address] Jul, [facility] [address] [id number] [place] [address] Jul, [facility] [address] [id number] [place] [address] Jul, [facility] [address] [id number] [place] [address] Jul, [facility] [address] [id number] [place] [address] Jul, [facility] [address] [id number] [place] [address] 15 Jun, 2012 [facility] [address] [id number] [place] [address] 15 Jun, 2012 [facility] [address] [id number] [place] [address] 10 Jun, 2012 [facility] [address] [id number] [place] [address] 10 Jun, 2012 [facility] [address] [id number] [place] [address] 10 May, 2012 [facility] [address] [id number] [place] [address] 13 Apr, 2012 [facility] [address] [id number] [place] [address] 13 Apr, 2012 [facility] [address] [facility] [id number] [place] [address] Apr, [facility] [address] [id number] [place] [address] Apr, [facility] [address] [id number] [place] [address] January, [facility] [address] [id number] [place] [address] January, [facility] [address] [id number] [place] [address] Dec, [facility] [address] [id number] [place] [address] Dec, [facility] [address] [id number] [place] [address] Nov, [facility] [address] [id number] [place] [address] Nov, [facility] [address] [id number] [place] [address] Nov, [facility] [address] [id number] [place] [address] Nov, [facility] [address] [id number] [place] [address] Oct, [facility] [address] [id number] [place] [address] Oct, [facility] [address] [id number] [place] [address] Oct, [facility] [address] [id number] [place] [address] Sep, [facility] [address] [id number] [place] [address] Sep, [facility] [address] [id number] [place] [address] Aug, [facility] [address] [id number] [place] [address] Aug, [facility] [address] [facility] [id number] [place] [address] 15 Jul, 2011 [facility] [address] [id number] [place] [address] Jul, [facility] [address] [id number] [place] [address] Jul, [facility] [address] [id number] [facility] [address] Jun, [facility] [address] [facility] [id number] [facility] [address] Jun, [facility] [address] [id number] [place] [address] Jun, [facility] [address] [id number] [place] [address] Jun, [facility] [address] [id number] [place] [address] Jun, [facility] [address] [id number] [place] [address] Jun, [facility] [address] [id number] [place] [address] Aug, [facility] [address] [id number] [place] [address] Aug, [facility] [address] [id number] [place] [address] Aug, [facility] [address] [id number] [place] [address] 29 Jul, 2010 [facility] [address] [id number] [place] [address] Jul, [facility] [address] [id number] [place] [address] Jul, [facility] [address] [id number] [place] [address] 15 Jul, 2010 [facility] [address] [id number] [place] [address] [address] [facility] [address] [id number] [place] [address] Jul, [facility] [address] [id number] [place] [address] Jun, [facility] [address] [id number] [place] [address] Apr, [facility] [id number] [place] [address] Feb, [facility] [address] [id number] [place] [address] Oct, [facility] [id number] [place] [address] Sep, [facility] [id number] [place] [address] Aug, [facility] [id number] [place] [address] Aug, [facility] [address] [id number] [place] [address] Aug, [facility] [id number] [place] [address] Jul, [facility] [address] [id number] [place] [address] Jun, IMMUNIZATIONS No Known Immunizations SOCIAL HISTORY [...]
--- OUTSIDE RECORDS SUMMARY | 2020-02-22 17:13 | XMS REPORT ---
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 Name Role Phone ZACKARY TRUJILLO Unavailable PROBLEMS Type Condition ICD9-CM Code [id number] Code Onset Dates Condition S tatus SNOMED Code Problem Acquired hypothyroidism E03.9 Active 722015380 Problem Gastro-esophageal reflux disease without esophagitis K21.9 Active 119601137 Problem Cervical disc disease M50.90 Active 122450923 Problem Dyspepsia R10.13 Active 919459350 Problem Migraine without aura and without status migrain osus, not intractable G43.009 Active [id number] ALLERGIES No Information ENCOUNTERS Encounter Location Date Diagnosis [place] [address] [address] Oct, [place] [address] [address] Oct, Cervical disc disease M50.90 [place] [address] [address] Oct, Contusion of left knee, initial encounte r S80.02XA [place] [address] [address] Oct, Cervical disc disease M50.90 [facility] [address] [place] [address] [id number] [place] [address] Oct, [facility] N [facility] [id number] [address] [place] [address] Oct, Acute pain of left knee M25. 562 [place] [address] [address] Sep, [place] [address] [address] Sep, Cervical disc disease M50.90 [facility] [address] [address] Sep, Cervical disc disease M50.90 [facility] [address] [address] Aug, Cervical disc disease M50.90 [facility] [address] [address] Aug, [facility] [address] [address] Jul, Cervical disc disease M50.90 [facility] [address] [address] Jun, Cervical disc disease M50.90 [facility] [address] [address] May, [facility] [address] [address] May, Cervical disc disease M50.90 [facility] [address] [facility] [id number] [address] [place] [address] May, Acute cystitis with hematuri a N30.01 and UTI symptoms R39.9 [facility] [address] [address] May, [facility] [address] [address] Apr, Cervical disc disease M50.90 [facility] [address] [address] Apr, Cervical disc disease M50.90 ; Gastro-es ophageal reflux disease without esophagitis K21.9 and Sinus headache R51 [facility] [address] [place] [id number] [place] [address] Apr, [facility] [address] [address] Apr, Cervical disc disease M50.90 [facility] [address] [place] [id number] [place] [address] Mar, [facility] [address] [address] Mar, Cervical disc disease M50.90 [facility] [address] [address] Feb, [address] [place] [address] Feb, Cervical disc disease M50.[address] [place] [address] January, [facility] [address] [place] [id number] [place] [address] January, Cervical disc disease M50.90 [place] [address] [address] January, Cervical disc disease M50.90 [facility] [address] [address] Dec, Cervical disc disease M50.90 [facility] [address] [address] Dec, Cervical disc disease M50.90 [place] [address] [address] Dec, Cervical disc disease M50.90 [facility] [address] [address] Dec, Cervical disc disease M50.90 ; Acquired hypothyroidism E03.9 and Migraine without aura and without status migrainosus, not intractable G43.009 [facility] [address] [address] Nov, [facility] [address] [address] Nov, Cervical disc disease M50.90 [facility] [address] [place] [id number] [place] [address] Oct, Cervical disc disease M50.90 [facility] [address] [place] [id number] [place] [address] Sep, [facility] [address] [place] [id number] [place] [address] Sep, Cervical disc disease M50.90 [facility] [address] [place] [id number] [place] [address] Aug, Cervical disc disease M50.90 [facility] [address] [place] [id number] [place] [address] Jul, Cervical disc disease M50.90 [facility] [address] [place] [id number] [place] [address] Jun, Acute recurrent pansinusitis J01.41 and Cervical disc disease M50.90 [facility] [address] [place] [id number] [place] [address] Jun, Cervical disc disease M50.90 [facility] [address] [place] [id number] [place] [address] May, Cervical disc disease M50.90 [facility] [address] [place] [id number] [place] [address] Apr, Cervical disc disease M50.90 [facility] [address] [place] [id number] [place] [address] Mar, Cervical disc disease M50.90 [facility] [address] [place] [id number] [place] [address] Mar, [facility] [address] [place] [id number] [place] [address] Mar, Cervical disc disease M50.90 [facility] [address] [place] [id number] [place] [address] Feb, Cervical disc disease M50.90 [facility] [address] [place] [id number] [place] [address] January, Cervical disc disease M50.90 [facility] [address] [place] [id number] [place] [address] Dec, [facility] [address] [address] Dec, Cervical disc disease M50.90 [facility] [address] [address] Nov, Cervical disc disease M50.90 [facility] [address] [address] Nov, Cervical disc disease M50.90 [place] [address] [address] Oct, Cervical disc disease M50.90 [place] [address] [address] Oct, Cervical disc disease M50.90 and Acute n on-recurrent maxillary sinusitis J01.00 [place] [address] [address] Sep, Cervical disc disease M50.90 [facility] [address] [place] [id number] [place] [address] Sep, [facility] N [address] [place] [address] Sep, Fatigue, unspecified type R5 3.83 and Cough R05 [place] [address] [address] Aug, Cervical disc disease M50.90 [facility] [address] [place] [id number] [place] [address] Aug, Sore throat J02.9 ; Canker s ore K12.0 and History of anemia Z86.2 [place] [address] [place] [id number] [place] [address] Jul, Cervical disc disease M50.90 [place] [address] [address] Jun, Cervical disc disease M50.90 [facility] [address] [address] Jun, Cervical disc disease M50.90 [facility] [address] [address] May, Cervical disc disease M50.90 [facility] [address] [address] Apr, Cervical disc disease M50.90 [facility] [address] [address] Apr, [place] [address] [address] Feb, Cervical disc disease M50.90 [place] [address] [address] January, Cervical disc disease M50.90 [facility] [address] [address] Nov, [place] [address] [address] Nov, Cervical disc disease M50.90 [facility] [address] [facility] [id number] [address] [place] [address] Nov, Acute cystitis with hematuri a N30.01 and Dysuria R30.0 [place] [address] [address] Oct, Cervical disc disease M50.90 and Acute n on-recurrent frontal sinusitis J01.10 [place] [address] [address] Sep, Neck pain M54.2 [place] [address] [address] Sep, [facility] [address] [address] Aug, Cervical disc disease M50.90 [facility] [address] [place] [id number] [place] [address] Jul, [facility] [address] [place] [id number] [place] [address] Jun, [facility] [address] [place] [id number] [place] [address] May, [facility] [address] [address] May, Screening for diabetes mellitus Z13.1 ; Chronic fatigue R53.82 and Edema, unspecified type R60.9 [facility] [address] [place] [id number] [place] [address] Apr, Neck pain M54.2 [facility] [address] [address] Mar, [facility] [address] [address] Mar, Neck pain M54.2 [facility] [address] [place] [id number] [place] [address] Feb, Cervical disc disease M50.90 [facility] [address] [place] [id number] [place] [address] Feb, Cervical disc disease M50.90 [facility] [address] [place] [id number] [place] [address] January, [facility] [address] [place] [id number] [place] [address] January, [facility] [address] [place] [id number] [place] [address] January, Cervical disc disease M50.90 [facility] [address] [place] [id number] [place] [address] January, [facility] [address] [place] [id number] [place] [address] January, [facility] [address] [address] Dec, Cervical disc disease M50.90 [facility] [address] [address] Nov, Cervical disc disease M50.90 [facility] [address] [address] Oct, Cervical disc disease M50.90 [facility] [address] [address] Sep, Cervical disc disease M50.90 [facility] [address] [id number] Aug, Dental caries K02.9 and Encounter for de ntal examination Z01.20 [facility] [address] [address] Aug, [facility] [address] [address] Aug, [facility] [address] [id number] Aug, Encounter for dental examination Z01.20 [facility] [address] [address] Jul, [facility] [address] [address] Jun, Sinusitis J32.9 and Cervical disc diseas e M50.90 [facility] [address] [address] Jun, [facility] [address] [address] 24 May, 2015 [facility] [address] [address] 23 May, 2015 [facility] [address] [address] 22 May, 2015 [facility] [address] [address] May, [facility] [place] [facility] [address] [id number] [place] [address] Apr, Cervical spondylosis without myelopathy 721.0 [facility] [place] [facility] [address] [id number] [place] [address] Mar, [facility] [place] [facility] [address] [id number] [place] [address] January, Cervical spondylosis without myelopathy 721.0 [facility] [place] [facility] [address] [id number] [place] [address] Dec, [facility] [place] [facility] [address] [place] [id number] [place] [address] Dec, [facility] [place] [facility] [address] [place] [id number] [place] [address] Dec, [facility] [place] [facility] [address] [place] [id number] [place] [address] Nov, [facility] [place] [facility] [address] [place] [id number] [place] [address] Nov, [facility] [place] [facility] [address] [place] [id number] [place] [address] Oct, [facility] [place] [facility] [address] [place] [id number] [place] [address] Oct, [facility] [place] [facility] [address] [place] [id number] [place] [address] Oct, [facility] [place] [facility] [address] [place] [id number] [place] [address] Oct, [facility] [place] [facility] [address] [place] [id number] [place] [address] Oct, [facility] [place] [facility] [address] [place] [id number] [place] [address] Oct, [facility] [place] [facility] [address] [place] [id number] [place] [address] Oct, [facility] [place] [facility] [address] [place] [id number] [place] [address] Oct, 2014 [facility] [place] [facility] [address] [facility] [id number] [place] [address] Oct, [facility] [place] [facility] [address] [id number] [place] [address] Oct, [facility] [place] [facility] [address] [id number] [place] [address] Sep, [facility] [place] [facility] [address] [id number] [place] [address] Sep, [facility] [place] [facility] [address] [id number] [place] [address] Sep, [facility] [place] [facility] [address] [id number] [place] [address] Sep, [facility] [place] [facility] [address] [id number] [place] [address] Sep, [facility] [place] [facility] [address] [id number] [place] [address] Sep, [facility] [place] [facility] [address] [id number] [place] [address] Sep, [facility] [place] [facility] [address] [id number] [place] [address] Sep, [facility] [place] [facility] [address] [id number] [place] [address] Sep, [facility] [place] [facility] [address] [id number] [place] [address] Aug, [facility] [place] [facility] [address] [id number] [place] [address] Aug, [facility] [place] [facility] [address] [id number] [place] [address] Aug, [facility] [place] [facility] [address] [id number] [place] [address] Aug, [facility] [place] [facility] [address] [id number] [place] [address] Jul, [facility] [place] [facility] [address] [id number] [place] [address] Jul, [facility] [place] [facility] [address] [id number] [place] [address] Jul, [facility] [place] [facility] [address] [id number] [place] [address] Jul, [facility] [place] [facility] [address] [id number] [place] [address] Jul, [facility] [place] [facility] [address] [id number] [place] [address] Jul, [facility] [place] [facility] [address] [id number] [place] [address] Jul, [facility] [place] [facility] [address] [id number] [place] [address] Jul, [facility] [place] [facility] [address] [id number] [place] [address] Jun, [facility] [place] [facility] [address] [id number] [place] [address] 27 Jun, 2014 [facility] [place] [facility] [address] [id number] [place] [address] 20 Jun, 2014 [facility] [place] [facility] [address] [id number] [place] [address] 20 Jun, 2014 [facility] [place] [facility] [address] [id number] [place] [address] 16 Jun, 2014 [facility] [place] [facility] [address] [id number] [place] [address] 15 Jun, 2014 [facility] [place] [facility] [address] [id number] [place] [address] 15 Jun, 2014 [facility] [place] [facility] [address] [id number] [place] [address] 14 Jun, 2014 [facility] [place] [facility] [address] [id number] [place] [address] 14 Jun, 2014 [facility] [place] [facility] [address] [id number] [place] [address] Jun, [facility] [place] [facility] [address] [facility] [id number] [place] [address] Jun, [facility] [place] [facility] [address] [facility] [id number] [facility] [place] [address] May, [facility] [place] [facility] [address] [facility] [id number] [place] [address] May, [facility] [place] [facility] [address] [facility] [id number] [place] [address] May, [facility] [place] [facility] [address] [facility] [id number] [facility] [place] [address] May, [facility] [place] [facility] [address] [facility] [id number] [place] [address] May, [facility] [place] [facility] [address] [id number] [place] [address] Apr, [facility] [place] [facility] [address] [id number] [place] [address] Apr, [facility] [place] [facility] [address] [facility] [id number] [place] [address] Apr, [facility] [place] [facility] [address] [id number] [place] [address] Apr, [facility] [place] [facility] [address] [facility] [id number] [place] [address] Apr, [facility] [place] [facility] [address] [id number] [place] [address] Apr, [facility] [place] [facility] [address] [facility] [id number] [place] [address] Mar, [facility] [place] [facility] [address] [facility] [id number] [place] [address] Mar, [facility] [place] [facility] [address] [facility] [id number] [place] [address] Mar, [facility] [place] [facility] [address] [id number] [place] [address] Mar, [facility] [place] [facility] [address] [facility] [id number] [place] [address] Mar, [facility] [place] [facility] [address] [id number] [place] [address] Mar, [facility] [place] [facility] [address] [id number] [place] [address] Feb, [facility] [place] [facility] [address] [id number] [place] [address] Feb, [facility] [place] [facility] [address] [id number] [place] [address] Feb, [facility] [place] [facility] [address] [facility] [id number] [place] [address] Feb, [facility] [place] [facility] [address] [id number] [place] [address] Feb, [facility] [place] [facility] [address] [id number] [place] [address] Feb, [facility] [place] [facility] [address] [id number] [place] [address] Feb, [facility] [place] [facility] [address] [id number] [place] [address] Feb, [facility] [place] [facility] [address] [id number] [place] [address] January, [facility] [place] [facility] [address] [id number] [place] [address] January, [facility] [place] [facility] [address] [id number] [place] [address] January, [facility] [place] [facility] [address] [facility] [id number] [place] [address] January, [facility] [place] [facility] [address] [id number] [place] [address] January, [facility] [place] [facility] [address] [id number] [place] [address] January, [facility] [place] [facility] [address] [id number] [place] [address] January, [facility] [place] [facility] [address] [id number] [place] [address] January, [facility] [place] [facility] [address] [id number] [place] [address] Dec, [facility] [place] [facility] [address] [id number] [place] [address] Dec, [facility] [place] [facility] [address] [id number] [place] [address] Dec, [facility] [place] [facility] [address] [id number] [place] [address] Dec, [facility] [place] [facility] [address] [id number] [place] [address] Dec, [facility] [place] [facility] [address] [id number] [place] [address] Dec, [facility] [place] [facility] [address] [id number] [place] [address] Nov, [facility] [place] [facility] [address] [id number] [place] [address] Nov, [facility] [address] [id number] [place] [address] Nov, [facility] [address] [id number] [place] [address] Nov, [facility] [address] [id number] [place] [address] Nov, [facility] [address] [id number] [place] [address] Nov, [facility] [address] [id number] [place] [address] Nov, [facility] [address] [id number] [place] [address] Nov, [facility] [address] [id number] [place] [address] Oct, [facility] [address] [id number] [place] [address] Oct, [facility] [address] [id number] [place] [address] Sep, [facility] [address] [id number] [place] [address] Sep, [facility] [address] [id number] [place] [address] Sep, [facility] [address] [id number] [place] [address] Sep, [facility] [address] [id number] [place] [address] Aug, [facility] [address] [id number] [place] [address] Aug, [facility] [address] [id number] [place] [address] Aug, [facility] [address] [id number] [place] [address] Aug, [facility] [address] [id number] [place] [address] Jul, [facility] [address] [id number] [place] [address] Jul, [facility] [address] [id number] [place] [address] Jul, [facility] [address] [id number] [place] [address] Jul, [facility] [address] [id number] [place] [address] Jul, [facility] [address] [id number] [place] [address] Jul, [facility] [address] [id number] [place] [address] Jul, [facility] [address] [id number] [place] [address] Jul, [facility] [address] [id number] [place] [address] Jul, [facility] [address] [id number] [place] [address] Jul, [facility] [address] [id number] [place] [address] Jul, [facility] [address] [id number] [place] [address] Jul, [facility] [address] [id number] [place] [address] Jun, [facility] [address] [id number] [place] [address] Jun, [facility] [address] [id number] [place] [address] Jun, [facility] [address] [id number] [place] [address] Jun, [facility] [address] [id number] [place] [address] Jun, [facility] [address] [id number] [place] [address] Jun, [facility] [address] [id number] [place] [address] Jun, [facility] [address] [id number] [place] [address] Jun, [facility] [address] [id number] [place] [address] 15 May, 2013 [facility] [address] [id number] [place] [address] 05 May, 2013 [facility] [address] [id number] [place] [address] May, [facility] [address] [id number] [place] [address] Apr, [facility] [address] [id number] [place] [address] Apr, [facility] [address] [id number] [place] [address] Mar, [facility] [address] [id number] [place] [address] Mar, [facility] [address] [id number] [place] [address] Feb, [facility] [address] [id number] [place] [address] January, [facility] [address] [id number] [place] [address] January, [facility] [address] [id number] [place] [address] January, [facility] [address] [id number] [place] [address] January, [facility] [address] [id number] [place] [address] January, [facility] [address] [id number] [place] [address] Dec, [facility] [address] [id number] [place] [address] Dec, [facility] [address] [id number] [place] [address] Dec, [facility] [address] [id number] [place] [address] Nov, [facility] [address] [id number] [place] [address] Oct, [facility] [address] [id number] [place] [address] Oct, [facility] [address] [id number] [place] [address] Oct, [facility] [address] [id number] [place] [address] Sep, [facility] [address] [id number] [place] [address] 16 Sep, 2012 [facility] [address] [facility] [id number] [place] [address] 14 Aug, 2012 [facility] [address] [id number] [place] [address] 14 Aug, 2012 [facility] [address] [id number] [place] [address] Aug, [facility] [address] [id number] [place] [address] Aug, [facility] [address] [id number] [place] [address] Jul, [facility] [address] [id number] [place] [address] Jul, [facility] [address] [id number] [place] [address] Jul, [facility] [address] [id number] [place] [address] Jul, [facility] [address] [id number] [place] [address] Jul, [facility] [address] [id number] [place] [address] 15 Jun, 2012 [facility] [address] [id number] [place] [address] 15 Jun, 2012 [facility] [address] [id number] [place] [address] 10 Jun, 2012 [facility] [address] [id number] [place] [address] 10 Jun, 2012 [facility] [address] [id number] [place] [address] 10 May, 2012 [facility] [address] [id number] [place] [address] 13 Apr, 2012 [facility] [address] [id number] [place] [address] 13 Apr, 2012 [facility] [address] [facility] [id number] [place] [address] Apr, [facility] [address] [id number] [place] [address] Apr, [facility] [address] [id number] [place] [address] January, [facility] [address] [id number] [place] [address] January, [facility] [address] [id number] [place] [address] Dec, [facility] [address] [id number] [place] [address] Dec, [facility] [address] [id number] [place] [address] Nov, [facility] [address] [id number] [place] [address] Nov, [facility] [address] [id number] [place] [address] Nov, [facility] [address] [id number] [place] [address] Nov, [facility] [address] [id number] [place] [address] Oct, [facility] [address] [id number] [place] [address] Oct, [facility] [address] [id number] [place] [address] Oct, [facility] [address] [id number] [place] [address] Sep, [facility] [address] [id number] [place] [address] Sep, [facility] [address] [id number] [place] [address] Aug, [facility] [address] [id number] [place] [address] Aug, [facility] [address] [facility] [id number] [place] [address] 15 Jul, 2011 [facility] [address] [id number] [place] [address] Jul, [facility] [address] [id number] [place] [address] Jul, [facility] [address] [id number] [facility] [address] Jun, [facility] [address] [facility] [id number] [facility] [place] [address] Jun, [facility] [address] [id number] [place] [address] Jun, [facility] [address] [id number] [place] [address] Jun, [facility] [address] [id number] [place] [address] Jun, [facility] [address] [id number] [place] [address] Jun, [facility] [address] [id number] [place] [address] Aug, [facility] [address] [id number] [place] [address] Aug, [facility] [address] [id number] [place] [address] Aug, [facility] [address] [id number] [place] [address] 29 Jul, 2010 [facility] [address] [id number] [place] [address] Jul, [facility] [address] [id number] [place] [address] Jul, [facility] [address] [id number] [place] [address] 15 Jul, 2010 [facility] [address] [id number] [place] [address] 15 Jul, 2010 [facility] [address] [id number] [place] [address] Jul, [facility] [address] [id number] [place] [address] Jun, [facility] [address] [id number] [place] [address] Apr, [facility] [id number] [place] [address] Feb, [facility] [id number] [place] [address] Oct, [facility] [id number] [place] [address] Sep, [facility] [id number] [place] [address] Aug, [facility] [id number] [place] [address] Aug, [facility] [id number] [place] [address] Aug, [facility] [id number] [place] [address] Jul, [facility] [address] [id number] [place] [address] Jun, IMMUNIZATIONS No Known Immunizations SOCIAL HISTORY Never Assessed REASON FOR VISIT Controlled Med Refill PLAN OF CARE VITAL SIGNS MEDICATIONS Medication Instructions Dosage Frequency Start Date End Date Duration S tatus Diazepam 5 mg Orally Once a day 1 tablet as needed 24h 28 Active RESULTS No Results PROCEDURES No Known procedures [...]
--- OUTSIDE RECORDS SUMMARY | 2020-02-22 17:13 | XMS REPORT ---
Author Author Marion TRUJILLO Organization [facility] Address [address] [place] [address] Care Team Providers Care Director Of Clinical Trials Name Role Phone ZACKARY TRUJILLO Unavailable PROBLEMS Type Condition ICD9-CM Code IHC45-IP Code Onset Dates Condition S tatus SNOMED Code Problem Acquired hypothyroidism E03.9 Active 813622161 Problem Gastro-esophageal reflux disease without esophagitis K21.9 Active 016143889 Problem Cervical disc disease M50.90 Active 547908774 Problem Dyspepsia R10.13 Active 507462912 Problem Migraine without aura and without status migrain osus, not intractable G43.009 Active [id number] ALLERGIES No Information ENCOUNTERS Encounter Location Date Diagnosis [place] [address] [address] Oct, [place] [address] [address] Oct, Cervical disc disease M50.90 [place] [address] [address] Oct, Contusion of left knee, initial encounte r S80.02XA [place] [address] [address] Oct, Cervical disc disease M50.90 [facility] [address] [place] [id number] [place] [address] Oct, [facility] N [facility] [id number] [address] [place] [address] Oct, Acute pain of left knee M25. 562 [place] [address] [address] Sep, [place] [address] [address] Sep, Cervical disc disease M50.90 [facility] [address] [address] Sep, Cervical disc disease M50.90 [facility] [address] [address] Aug, Cervical disc disease M50.90 [facility] [address] [address] Aug, [facility] [address] [address] Jul, Cervical disc disease M50.90 [facility] [address] [address] Jun, Cervical disc disease M50.90 [facility] [address] [address] May, [facility] [address] [address] May, Cervical disc disease M50.90 [facility] [address] [facility] [id number] [address] [place] [address] May, Acute cystitis with hematuri a N30.01 and UTI symptoms R39.9 [facility] [address] [address] May, [facility] [address] [address] Apr, Cervical disc disease M50.90 [facility] [address] [address] Apr, Cervical disc disease M50.90 ; Gastro-es ophageal reflux disease without esophagitis K21.9 and Sinus headache R51 [facility] [address] [place] [id number] [place] [address] Apr, [facility] [address] [address] Apr, Cervical disc disease M50.90 [facility] [address] [place] [id number] [place] [address] Mar, [facility] [address] [address] Mar, Cervical disc disease M50.90 [facility] [address] [address] Feb, [address] [place] [address] Feb, Cervical disc disease M50.90 [address] [place] [address] January, [facility] [address] [place] [id number] [place] [address] January, Cervical disc disease M50.90 [place] [address] [address] January, Cervical disc disease M50.90 [facility] [address] [address] Dec, Cervical disc disease M50.90 [facility] [address] [address] Dec, Cervical disc disease M50.90 [place] [address] [address] Dec, Cervical disc disease M50.90 [facility] [address] [address] Dec, Cervical disc disease M50.90 ; Acquired hypothyroidism E03.9 and Migraine without aura and without status migrainosus, not intractable G43.009 [facility] [address] [address] Nov, [facility] [address] [address] Nov, Cervical disc disease M50.90 [facility] [address] [place] [id number] [place] [address] Oct, Cervical disc disease M50.90 [facility] [address] [place] [id number] [place] [address] Sep, [facility] [address] [place] [id number] [place] [address] Sep, Cervical disc disease M50.90 [facility] [address] [place] [id number] [place] [address] Aug, Cervical disc disease M50.90 [facility] [address] [place] [id number] [place] [address] Jul, Cervical disc disease M50.90 [facility] [address] [place] [id number] [place] [address] Jun, Acute recurrent pansinusitis J01.41 and Cervical disc disease M50.90 [facility] [address] [place] [id number] [place] [address] Jun, Cervical disc disease M50.90 [facility] [address] [place] [id number] [place] [address] May, Cervical disc disease M50.90 [facility] [address] [place] [id number] [place] [address] Apr, Cervical disc disease M50.90 [facility] [address] [place] [id number] [place] [address] Mar, Cervical disc disease M50.90 [facility] [address] [place] [id number] [place] [address] Mar, [facility] [address] [place] [id number] [place] [address] Mar, Cervical disc disease M50.90 [facility] [address] [place] [id number] [place] [address] Feb, Cervical disc disease M50.90 [facility] [address] [place] [id number] [place] [address] January, Cervical disc disease M50.90 [facility] [address] [place] [id number] [place] [address] Dec, [facility] [address] [address] Dec, Cervical disc disease M50.90 [facility] [address] [address] Nov, Cervical disc disease M50.90 [facility] [address] [address] Nov, Cervical disc disease M50.90 [place] [address] [address] Oct, Cervical disc disease M50.90 [place] [address] [address] Oct, Cervical disc disease M50.90 and Acute n on-recurrent maxillary sinusitis J01.00 [place] [address] [address] Sep, Cervical disc disease M50.90 [facility] [address] [place] [id number] [place] [address] Sep, [facility] [address] [place] [address] Sep, Fatigue, unspecified type R5 3.83 and Cough R05 [place] [address] [address] Aug, Cervical disc disease M50.90 [facility] [address] [place] [id number] [place] [address] Aug, Sore throat J02.9 ; Canker s ore K12.0 and History of anemia Z86.2 [place] [address] [place] [id number] [place] [address] Jul, Cervical disc disease M50.90 [place] [address] [address] Jun, Cervical disc disease M50.90 [facility] [address] [address] Jun, Cervical disc disease M50.90 [facility] [address] [address] May, Cervical disc disease M50.90 [facility] [address] [address] Apr, Cervical disc disease M50.90 [facility] [address] [address] Apr, [place] [address] [address] Feb, Cervical disc disease M50.90 [place] [address] [address] January, Cervical disc disease M50.90 [facility] [address] [address] Nov, [place] [address] [address] Nov, Cervical disc disease M50.90 [facility] [address] [facility] [id number] [address] [place] [address] Nov, Acute cystitis with hematuri a N30.01 and Dysuria R30.0 [place] [address] [address] Oct, Cervical disc disease M50.90 and Acute n on-recurrent frontal sinusitis J01.10 [place] [address] [address] Sep, Neck pain M54.2 [place] [address] [address] Sep, [facility] [address] [address] Aug, Cervical disc disease M50.90 [facility] [address] [place] [id number] [place] [address] Jul, [facility] [address] [place] [id number] [place] [address] Jun, [facility] [address] [place] [id number] [place] [address] May, [facility] [address] [address] May, Screening for diabetes mellitus Z13.1 ; Chronic fatigue R53.82 and Edema, unspecified type R60.9 [facility] [address] [place] [id number] [place] [address] Apr, Neck pain M54.2 [facility] [address] [address] Mar, [facility] [address] [address] Mar, Neck pain M54.2 [facility] [address] [place] [id number] [place] [address] Feb, Cervical disc disease M50.90 [facility] [address] [place] [id number] [place] [address] Feb, Cervical disc disease M50.90 [facility] [address] [place] [id number] [place] [address] January, [facility] [address] [place] [id number] [place] [address] January, [facility] [address] [place] [id number] [place] [address] January, Cervical disc disease M50.90 [facility] [address] [place] [id number] [place] [address] January, [facility] [address] [place] [id number] [place] [address] January, [facility] [address] [address] Dec, Cervical disc disease M50.90 [facility] [address] [address] Nov, Cervical disc disease M50.90 [facility] [address] [address] Oct, Cervical disc disease M50.90 [facility] [address] [address] Sep, Cervical disc disease M50.90 [facility] [address] [id number] Aug, Dental caries K02.9 and Encounter for de ntal examination Z01.20 [facility] [address] [address] Aug, [facility] [address] [address] Aug, [facility] [address] [id number] Aug, Encounter for dental examination Z01.20 [facility] [address] [address] Jul, [facility] [address] [address] Jun, Sinusitis J32.9 and Cervical disc diseas e M50.90 [facility] [address] [address] Jun, [facility] [address] [address] 24 May, 2015 [facility] [address] [address] 23 May, 2015 [facility] [address] [address] 22 May, 2015 [facility] [address] [address] May, [facility] [place] [facility] [address] [id number] [place] [address] Apr, Cervical spondylosis without myelopathy 721.0 [facility] [place] [facility] [address] [id number] [place] [address] Mar, [facility] [place] [facility] [address] [id number] [place] [address] January, Cervical spondylosis without myelopathy 721.0 [facility] [place] [facility] [address] [id number] [place] [address] Dec, [facility] [place] [facility] [address] [place] [id number] [place] [address] Dec, [facility] [place] [facility] [address] [place] [id number] [place] [address] Dec, [facility] [place] [facility] [address] [place] [id number] [place] [address] Nov, [facility] [place] [facility] [address] [place] [id number] [place] [address] Nov, [facility] [place] [facility] [address] [place] [id number] [place] [address] Oct, [facility] [place] [facility] [address] [place] [id number] [place] [address] Oct, [facility] [place] [facility] [address] [place] [id number] [place] [address] Oct, [facility] [place] [facility] [address] [place] [id number] [place] [address] Oct, [facility] [place] [facility] [address] [place] [id number] [place] [address] Oct, [facility] [place] [facility] [address] [place] [id number] [place] [address] Oct, [facility] [place] [facility] [address] [place] [id number] [place] [address] Oct, [facility] [place] [facility] [address] [place] [id number] [place] [address] Oct, 2014 [facility] [place] [facility] [address] [facility] [id number] [place] [address] Oct, [facility] [place] [facility] [address] [id number] [place] [address] Oct, [facility] [place] [facility] [address] [id number] [place] [address] Sep, [facility] [place] [facility] [address] [id number] [place] [address] Sep, [facility] [place] [facility] [address] [id number] [place] [address] Sep, [facility] [place] [facility] [address] [id number] [place] [address] Sep, [facility] [place] [facility] [address] [id number] [place] [address] Sep, [facility] [place] [facility] [address] [id number] [place] [address] Sep, [facility] [place] [facility] [address] [id number] [place] [address] Sep, [facility] [place] [facility] [address] [id number] [place] [address] Sep, [facility] [place] [facility] [address] [id number] [place] [address] Sep, [facility] [place] [facility] [address] [id number] [place] [address] Aug, [facility] [place] [facility] [address] [id number] [place] [address] Aug, [facility] [place] [facility] [address] [id number] [place] [address] Aug, [facility] [place] [facility] [address] [id number] [place] [address] Aug, [facility] [place] [facility] [address] [id number] [place] [address] Jul, [facility] [place] [facility] [address] [id number] [place] [address] Jul, [facility] [place] [facility] [address] [id number] [place] [address] Jul, [facility] [place] [facility] [address] [id number] [place] [address] Jul, [facility] [place] [facility] [address] [id number] [place] [address] Jul, [facility] [place] [facility] [address] [id number] [place] [address] Jul, [facility] [place] [facility] [address] [id number] [place] [address] Jul, [facility] [place] [facility] [address] [id number] [place] [address] Jul, [facility] [place] [facility] [address] [id number] [place] [address] Jun, [facility] [place] [facility] [address] [id number] [place] [address] 27 Jun, 2014 [facility] [place] [facility] [address] [id number] [place] [address] 20 Jun, 2014 [facility] [place] [facility] [address] [id number] [place] [address] 20 Jun, 2014 [facility] [place] [facility] [address] [id number] [place] [address] 16 Jun, 2014 [facility] [place] [facility] [address] [id number] [place] [address] 15 Jun, 2014 [facility] [place] [facility] [address] [id number] [place] [address] 15 Jun, 2014 [facility] [place] [facility] [address] [id number] [place] [address] 14 Jun, 2014 [facility] [place] [facility] [address] [id number] [place] [address] 14 Jun, 2014 [facility] [place] [facility] [address] [id number] [place] [address] Jun, [facility] [place] [facility] [address] [facility] [id number] [place] [address] Jun, [facility] [place] [facility] [address] [facility] [id number] [place] [address] May, [facility] [place] [facility] [address] [facility] [id number] [place] [address] May, [facility] [place] [facility] [address] [facility] [id number] [place] [address] May, [facility] [place] [facility] [address] [facility] [id number] [place] [address] May, [facility] [place] [facility] [address] [facility] [id number] [place] [address] May, [facility] [place] [facility] [address] [id number] [place] [address] Apr, [facility] [place] [facility] [address] [id number] [place] [address] Apr, [facility] [place] [facility] [address] [facility] [id number] [place] [address] Apr, [facility] [place] [facility] [address] [id number] [place] [address] Apr, [facility] [place] [facility] [address] [facility] [id number] [place] [address] Apr, [facility] [place] [facility] [address] [id number] [place] [address] Apr, [facility] [place] [facility] [address] [facility] [id number] [place] [address] Mar, [facility] [place] [facility] [address] [facility] [id number] [place] [address] Mar, [facility] [place] [facility] [address] [facility] [id number] [place] [address] Mar, [facility] [place] [facility] [address] [id number] [place] [address] Mar, [facility] [place] [facility] [address] [facility] [id number] [place] [address] Mar, [facility] [place] [facility] [address] [id number] [place] [address] Mar, [facility] [place] [facility] [address] [id number] [place] [address] Feb, [facility] [place] [facility] [address] [id number] [place] [address] Feb, [facility] [place] [facility] [address] [id number] [place] [address] Feb, [facility] [place] [facility] [address] [facility] [id number] [place] [address] Feb, [facility] [place] [facility] [address] [id number] [place] [address] Feb, [facility] [place] [facility] [address] [id number] [place] [address] Feb, [facility] [place] [facility] [address] [id number] [place] [address] Feb, [facility] [place] [facility] [address] [id number] [place] [address] Feb, [facility] [place] [facility] [address] [id number] [place] [address] January, [facility] [place] [facility] [address] [id number] [place] [address] January, [facility] [place] [facility] [address] [id number] [place] [address] January, [facility] [place] [facility] [address] [facility] [id number] [place] [address] January, [facility] [place] [facility] [address] [id number] [place] [address] January, [facility] [place] [facility] [address] [id number] [place] [address] January, [facility] [place] [facility] [address] [id number] [place] [address] January, [facility] [place] [facility] [address] [id number] [place] [address] January, [facility] [place] [facility] [address] [id number] [place] [address] Dec, [facility] [place] [facility] [address] [id number] [place] [address] Dec, [facility] [place] [facility] [address] [id number] [place] [address] Dec, [facility] [place] [facility] [address] [id number] [place] [address] Dec, [facility] [place] [facility] [address] [id number] [place] [address] Dec, [facility] [place] [facility] [address] [id number] [place] [address] Dec, [facility] [place] [facility] [address] [id number] [place] [address] Nov, [facility] [place] [facility] [address] [id number] [place] [address] Nov, [facility] [place] [facility] [address] [id number] [place] [address] Nov, [facility] [place] [facility] [address] [id number] [place] [address] Nov, [facility] [place] [facility] [address] [id number] [place] [address] Nov, [facility] [place] [facility] [address] [id number] [place] [address] Nov, [facility] [address] [id number] [place] [address] Nov, [facility] [address] [id number] [place] [address] Nov, [facility] [address] [id number] [place] [address] Oct, [facility] [address] [id number] [place] [address] Oct, [facility] [address] [id number] [place] [address] Sep, [facility] [address] [id number] [place] [address] Sep, [facility] [address] [id number] [place] [address] Sep, [facility] [address] [id number] [place] [address] Sep, [facility] [address] [id number] [place] [address] Aug, [facility] [address] [id number] [place] [address] Aug, [facility] [address] [id number] [place] [address] Aug, [facility] [address] [id number] [place] [address] Aug, [facility] [address] [id number] [place] [address] Jul, [facility] [address] [id number] [place] [address] Jul, [facility] [address] [id number] [place] [address] Jul, [facility] [address] [id number] [place] [address] Jul, [facility] [address] [id number] [place] [address] Jul, [facility] [address] [id number] [place] [address] Jul, [facility] [address] [id number] [place] [address] Jul, [facility] [address] [id number] [place] [address] Jul, [facility] [address] [id number] [place] [address] Jul, [facility] [address] [id number] [place] [address] Jul, [facility] [address] [id number] [place] [address] Jul, [facility] [address] [id number] [place] [address] Jul, [facility] [address] [id number] [place] [address] Jun, [facility] [address] [id number] [place] [address] Jun, [facility] [address] [id number] [place] [address] Jun, [facility] [address] [id number] [place] [address] Jun, [facility] [address] [id number] [place] [address] Jun, [facility] [address] [id number] [place] [address] Jun, [facility] [address] [id number] [place] [address] Jun, [facility] [address] [id number] [place] [address] Jun, [facility] [address] [id number] [place] [address] 15 May, 2013 [facility] [address] [id number] [place] [address] 05 May, 2013 [facility] [address] [id number] [place] [address] May, [facility] [address] [id number] [place], [place] [address] Apr, [facility] [address] [id number] [place] [address] Apr, [facility] [address] [id number] [place] [address] Mar, [facility] [address] [id number] [place] [address] Mar, [facility] [address] [id number] [place] [address] Feb, [facility] [address] [id number] [place] [address] January, [facility] [address] [id number] [place] [address] January, [facility] [address] [id number] [place] [address] January, [facility] [address] [id number] [place] [address] January, [facility] [address] [id number] [place] [address] January, [facility] [address] [id number] [place] [address] Dec, [facility] [address] [id number] [place] [address] Dec, [facility] [address] [id number] [place] [address] Dec, [facility] [address] [id number] [place] [address] Nov, [facility] [address] [id number] [place] [address] Oct, [facility] [address] [id number] [place] [address] Oct, [facility] [address] [id number] [place] [address] Oct, [facility] [address] [id number] [place] [address] Sep, [facility] [address] [id number] [place] [address] 16 Sep, 2012 [facility] [address] [facility] [id number] [place] [address] 14 Aug, 2012 [facility] [address] [id number] [place] [address] 14 Aug, 2012 [facility] [address] [id number] [place] [address] Aug, [facility] [address] [id number] [place] [address] Aug, [facility] [address] [id number] [place] [address] Jul, [facility] [address] [id number] [place] [address] Jul, [facility] [address] [id number] [place] [address] Jul, [facility] [address] [id number] [place] [address] Jul, [facility] [address] [id number] [place] [address] Jul, [facility] [address] [id number] [place] [address] 15 Jun, 2012 [facility] [address] [id number] [place] [address] 15 Jun, 2012 [facility] [address] [id number] [place] [address] 10 Jun, 2012 [facility] [address] [id number] [place] [address] 10 Jun, 2012 [facility] [address] [id number] [place] [address] 10 May, 2012 [facility] [address] [id number] [place] [address] 13 Apr, 2012 [facility] [address] [id number] [place] [address] 13 Apr, 2012 [facility] [address] [facility] [id number] [place] [address] Apr, [facility] [address] [id number] [place] [address] Apr, [facility] [address] [id number] [place] [address] January, [facility] [address] [id number] [place] [address] January, [facility] [address] [id number] [place] [address] Dec, [facility] [address] [id number] [place] [address] Dec, [facility] [address] [id number] [place] [address] Nov, [facility] [address] [id number] [place] [address] Nov, [facility] [address] [id number] [place] [address] Nov, [facility] [address] [id number] [place] [address] Nov, [facility] [address] [id number] [place] [address] Oct, [facility] [address] [id number] [place] [address] Oct, [facility] [address] [id number] [place] [address] Oct, [facility] [address] [id number] [place] [address] Sep, [facility] [address] [id number] [place] [address] Sep, [facility] [address] [id number] [place] [address] Aug, [facility] [address] [id number] [place] [address] Aug, [facility] [address] [facility] [id number] [place] [address] 15 Jul, 2011 [facility] [address] [id number] [place] [address] Jul, [facility] [address] [id number] [place] [address] Jul, [facility] [address] [id number] [place] [address] Jun, [facility] [address] [facility] [id number] [place] [address] Jun, [facility] [address] [id number] [place] [address] Jun, [facility] [address] [id number] [place] [address] Jun, [facility] [address] [id number] [place] [address] Jun, [facility] [address] [id number] [place] [address] Jun, [facility] [address] [id number] [place] [address] Aug, [facility] [address] [id number] [place] [address] Aug, [facility] [address] [id number] [place] [address] Aug, [facility] [address] [id number] [place] [address] 29 Jul, 2010 [facility] [address] [id number] [place] [address] Jul, [facility] [address] [id number] [place] [address] Jul, [facility] [address] [id number] [place] [address] 15 Jul, 2010 [facility] [id number] [place] [address] 15 Jul, 2010 [facility] [id number] [place] [address] Jul, [facility] [id number] [place] [address] Jun, [facility] [id number] [place] [address] Apr, [facility] [address] [address] Feb, [facility] [address] [address] Oct, [facility] [address] [address] Sep, [facility] [address] [address] Aug, [facility] [address] [address] Aug, [facility] [id number] [place] [address] Aug, [facility] [address] [address] Jul, [facility] [id number] [place] [address] Jun, IMMUNIZATIONS No Known Immunizations SOCIAL HISTORY Never Assessed REASON FOR VISIT PLAN OF CARE VITAL SIGNS Height 65 in 2013-11-27 Weight 171.7 lbs 2013-11-27 Temperature 97.5 degrees Fahrenheit 2013-11-27 Heart Rate 84 bpm 2013-11-27 Respiratory Rate 18 2013-11-27 Blood pressure systolic 128 mmHg 2013-11-27 Blood pressure diastolic 66 mmHg 2013-11-27 MEDICATIONS Unknown Medications RESULTS No Results PROCEDURES Procedure Date Ordered Result Body Site COMPLETE CBC W/AUTO DIFF WBC November 27, 2013 VENIPUNCT, ROUTINE* November 27, 2013 INSTRUCTIONS MEDICATIONS ADMINISTERED No Known Medications [...]
--- OUTSIDE RECORDS SUMMARY | 2020-02-22 17:14 | XMS REPORT ---
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 Name Role Phone ZACKARY TRUJILLO Unavailable PROBLEMS Type Condition ICD9-CM Code [id number]-YK Code Onset Dates Condition S tatus SNOMED Code Problem Acquired hypothyroidism E03.9 Active 719566816 Problem Gastro-esophageal reflux disease without esophagitis K21.9 Active 367508605 Problem Cervical disc disease M50.90 Active 095659240 Problem Dyspepsia R10.13 Active 990485002 Problem Migraine without aura and without status migrain osus, not intractable G43.009 Active [id number] ALLERGIES No Information ENCOUNTERS Encounter Location Date Diagnosis [place] [address] [address] Oct, Cervical disc disease M50.[address] [address] Oct, Contusion of left knee, initial encounte r S80.02XA [address] [address] Oct, Cervical disc disease M50.90 [facility] [address] [place] [id number] [address] [place] [address] Oct, [facility] [address] [place] [id number] [address] [place] [address] Oct, Acute pain of left knee M25. 562 [place] [address] [address] Sep, [place] [address] [address] Sep, Cervical disc disease M50.90 [facility] [address] [place] [id number] [place] [address] Sep, Cervical disc disease M50.90 [facility] [address] [address] Aug, Cervical disc disease M50.90 [facility] [address] [address] Aug, [facility] [address] [address] Jul, Cervical disc disease M50.90 [facility] [address] [address] Jun, Cervical disc disease M50.90 [facility] [address] [address] May, [facility] [address] [address] May, Cervical disc disease M50.90 [facility] [address] [id number] [address] [place] [address] May, Acute cystitis with hematuri a N30.01 and UTI symptoms R39.9 [facility] [address] [place] [id number] [place] [address] May, [facility] [address] [address] Apr, Cervical disc disease M50.90 [facility] [address] [address] Apr, Cervical disc disease M50.90 ; Gastro-es ophageal reflux disease without esophagitis K21.9 and Sinus headache R51 [facility] [address] [place] [id number] [place] [address] Apr, [facility] [address] [address] Apr, Cervical disc disease M50.90 [facility] [address] [place] [address] Mar, [facility] [address] [address] Mar, Cervical disc disease M50.90 [facility] [address] [address] Feb, [address] [place] [address] Feb, Cervical disc disease M50.90 [address] [place] [address] January, [facility] [address] [address] January, Cervical disc disease M50.90 [facility] [address] [address] January, Cervical disc disease M50.90 [facility] [address] [address] Dec, Cervical disc disease M50.90 [facility] [address] [address] Dec, Cervical disc disease M50.90 [facility] [address] [address] Dec, Cervical disc disease M50.90 [facility] [address] [address] Dec, Cervical disc disease M50.90 ; Acquired hypothyroidism E03.9 and Migraine without aura and without status migrainosus, not intractable G43.009 [facility] [address] [address] Nov, [facility] [address] [address] Nov, Cervical disc disease M50.90 [facility] [address] [address] Oct, Cervical disc disease M50.90 [facility] [address] [place] [id number] [place] [address] Sep, [facility] [address] [place] [id number] [place] [address] Sep, Cervical disc disease M50.90 [facility] [address] [place] [id number] [place] [address] Aug, Cervical disc disease M50.90 [facility] [address] [address] Jul, Cervical disc disease M50.90 [facility] [address] [place] [id number] [place] [address] Jun, Acute recurrent pansinusitis J01.41 and Cervical disc disease M50.90 [facility] [address] [place] [id number] [place] [address] Jun, Cervical disc disease M50.90 [facility] [address] [place] [id number] [place] [address] May, Cervical disc disease M50.90 [facility] [address] [place] [id number] [place] [address] Apr, Cervical disc disease M50.90 [facility] [address] [place] [id number] [place] [address] Mar, Cervical disc disease M50.90 [facility] [address] [place] [id number] [place] [address] Mar, [facility] [address] [place] [id number] [place] [address] Mar, Cervical disc disease M50.90 [facility] [address] [place] [id number] [place] [address] Feb, Cervical disc disease M50.90 [facility] [address] [place] [id number] [place] [address] January, Cervical disc disease M50.90 [facility] [address] [address] Dec, [facility] [address] [address] Dec, Cervical disc disease M50.90 [facility] [address] [address] Nov, Cervical disc disease M50.90 [place] [address] [address] Nov, Cervical disc disease M50.90 [place] [address] [address] Oct, Cervical disc disease M50.90 [place] [address] [address] Oct, Cervical disc disease M50.90 and Acute n on-recurrent maxillary sinusitis J01.00 [place] [address] [address] Sep, Cervical disc disease M50.90 [facility] [address] [address] Sep, [facility] [address] [address] Sep, Fatigue, unspecified type R5 3.83 and Cough R05 [place] [address] [address] Aug, Cervical disc disease M50.90 [facility] [address] [place] [id number] [address] [place] [address] Aug, Sore throat J02.9 ; Canker s ore K12.0 and History of anemia Z86.2 [place] [address] [address] Jul, Cervical disc disease M50.90 [place] [address] [address] Jun, Cervical disc disease M50.90 [place] [address] [place] [id number] [place] [address] Jun, Cervical disc disease M50.90 [facility] [address] [address] May, Cervical disc disease M50.90 [facility] [address] [address] Apr, Cervical disc disease M50.90 [facility] [address] [address] Apr, [facility] [address] [address] Feb, Cervical disc disease M50.90 [facility] [address] [address] January, Cervical disc disease M50.90 [facility] [address] [address] Nov, [facility] [address] [address] Nov, Cervical disc disease M50.90 [facility] [address] [id number] [address] [place] [address] Nov, Acute cystitis with hematuri a N30.01 and Dysuria R30.0 [facility] [address] [address] Oct, Cervical disc disease M50.90 and Acute n on-recurrent frontal sinusitis J01.10 [facility] [address] [address] Sep, Neck pain M54.2 [place] [address] [address] Sep, [facility] [address] [address] Aug, Cervical disc disease M50.90 [facility] [address] [address] Jul, [facility] [address] [place] [id number] [place] [address] Jun, [facility] [address] [address] May, [facility] [address] [address] May, Screening for diabetes mellitus Z13.1 ; Chronic fatigue R53.82 and Edema, unspecified type R60.9 [facility] [address] [address] Apr, Neck pain M54.2 [facility] [address] [address] Mar, [facility] [address] [address] Mar, Neck pain M54.2 [facility] [address] [address] Feb, Cervical disc disease M50.90 [facility] [address] [address] Feb, Cervical disc disease M50.90 [facility] [address] [address] January, [facility] [address] [address] January, [facility] [address] [address] January, Cervical disc disease M50.90 [facility] [address] [address] January, [facility] [address] [address] January, [facility] [address] [address] Dec, Cervical disc disease M50.90 [facility] [address] [address] Nov, Cervical disc disease M50.90 [facility] [address] [address] Oct, Cervical disc disease M50.90 [facility] [address] [address] Sep, Cervical disc disease M50.90 [facility] [address] [id number] Aug, Dental caries K02.9 and Encounter for de ntal examination Z01.20 [facility] [address] [address] Aug, [facility] [address] [address] Aug, [facility] [address] [id number] Aug, Encounter for dental examination Z01.20 [facility] [address] [address] Jul, [facility] [address] [address] Jun, Sinusitis J32.9 and Cervical disc diseas e M50.90 [facility] [address] [address] Jun, [facility] [address] [address] 24 May, 2015 [facility] [address] [address] May, [facility] [address] [address] 22 May, 2015 [facility] [address] [address] May, [facility] [address] [address] Apr, Cervical spondylosis without myelopathy 721.0 [facility] [address] [place] [id number] [place] [address] Mar, [facility] [address] [place] [id number] [place] [address] January, Cervical spondylosis without myelopathy 721.0 [facility] [address] [place] [id number] [place] [address] Dec, [facility] [address] [place] [id number] [place] [address] Dec, [facility] [address] [place] [id number] [place] [address] Dec, [facility] [address] [place] [id number] [place] [address] Nov, [facility] [address] [place] [id number] [place] [address] Nov, [facility] [address] [place] [id number] [place] [address] Oct, [facility] [address] [place] [id number] [place] [address] Oct, [facility] [address] [place] [id number] [place] [address] Oct, [facility] [address] [place] [id number] [place] [address] Oct, [facility] [address] [place] [id number] [place] [address] Oct, [facility] [address] [place] [id number] [place] [address] Oct, [facility] [address] [place] [id number] [place] [address] Oct, [facility] [address] [address] Oct, [facility] [address] [place] [id number] [place] [address] Oct, [facility] [address] [id number] [place] [address] Oct, [facility] [address] [id number] [place] [address] Sep, [facility] [address] [id number] [place] [address] Sep, [facility] [address] [id number] [place] [address] Sep, [facility] [address] [id number] [place] [address] Sep, [facility] [address] [id number] [place] [address] Sep, [facility] [address] [id number] [place] [address] Sep, [facility] [address] [id number] [place] [address] Sep, [facility] [address] [id number] [place] [address] Sep, [facility] [address] [id number] [place] [address] Sep, [facility] [address] [id number] [place] [address] Aug, [facility] [address] [id number] [place] [address] Aug, [facility] [address] [id number] [place] [address] Aug, [facility] [address] [id number] [place] [address] Aug, [facility] [address] [id number] [place] [address] Jul, [facility] [address] [id number] [place] [address] Jul, [facility] [address] [id number] [place] [address] Jul, [facility] [address] [id number] [place] [address] Jul, [facility] [address] [id number] [place] [address] Jul, [facility] [address] [id number] [place] [address] Jul, [facility] [address] [id number] [place] [address] Jul, [facility] [address] [id number] [place] [address] Jul, [facility] [address] [id number] [place] [address] Jun, [facility] [address] [id number] [place] [address] 27 Jun, 2014 [facility] [address] [id number] [place] [address] 20 Jun, 2014 [facility] [address] [id number] [place] [address] 20 Jun, 2014 [facility] [address] [id number] [place] [address] 16 Jun, 2014 [facility] [address] [id number] [place] [address] 15 Jun, 2014 [facility] [address] [id number] [place] [address] 15 Jun, 2014 [facility] [address] [id number] [place] [address] 14 Jun, 2014 [facility] [address] [id number] [place] [address] 14 Jun, 2014 [facility] [address] [id number] [place] [address] 11 Jun, 2014 [facility] [address] [id number] [place] [address] Jun, [facility] [address] [id number] [place] [address] May, [facility] [address] [id number] [facility] [address] May, [facility] [address] [id number] [place] [address] May, [facility] [address] [id number] [facility] [address] May, [facility] [address] [id number] [place] [address] May, [facility] [address] [id number] [place] [address] Apr, [facility] [address] [id number] [place] [address] Apr, [facility] [address] [id number] [place] [address] Apr, [facility] [address] [id number] [place] [address] Apr, [facility] [address] [id number] [place] [address] Apr, [facility] [address] [id number] [place] [address] Apr, [facility] [address] [id number] [place] [address] Mar, [facility] [address] [id number] [place] [address] Mar, [facility] [address] [id number] [place] [address] Mar, [facility] [address] [id number] [place] [address] Mar, [facility] [address] [id number] [place] [address] Mar, [facility] [address] [id number] [facility] [address] Mar, [facility] [address] [id number] [place] [address] Feb, [facility] [address] [id number] [place] [address] Feb, [facility] [address] [id number] [place] [address] Feb, [facility] [address] [id number] [place] [address] Feb, [facility] [address] [id number] [place] [address] Feb, [facility] [address] [id number] [place] [address] Feb, [facility] [address] [id number] [place] [address] Feb, [facility] [address] [id number] [place] [address] Feb, [facility] [address] [id number] [place] [address] January, [facility] [address] [id number] [place] [address] January, [facility] [address] [id number] [place] [address] January, [facility] [address] [id number] [place] [address] January, [facility] [address] [id number] [place] [address] January, [facility] [address] [id number] [place] [address] January, [facility] [address] [id number] [place] [address] January, [facility] [address] [id number] [place] [address] January, [facility] [address] [id number] [place] [address] Dec, [facility] [address] [id number] [place] [address] Dec, [facility] [address] [id number] [place] [address] Dec, [facility] [address] [id number] [place] [address] Dec, [facility] [address] [id number] [place] [address] Dec, [facility] [address] [id number] [place] [address] Dec, [facility] [address] [id number] [place] [address] Nov, [facility] [address] [id number] [place] [address] Nov, [facility] [address] [id number] [place] [address] Nov, [facility] [address] [id number] [place] [address] Nov, [facility] [address] [id number] [place] [address] Nov, [facility] [address] [id number] [place] [address] Nov, [facility] [address] [id number] [place] [address] Nov, [facility] [address] [id number] [place] [address] Nov, [facility] [address] [id number] [place] [address] Oct, [facility] [address] [id number] [place] [address] Oct, [facility] [address] [id number] [place] [address] Sep, [facility] [address] [id number] [place] [address] Sep, [facility] [address] [id number] [place] [address] Sep, [facility] [address] [id number] [place] [address] Sep, [facility] [address] [id number] [place] [address] Aug, [facility] [id number] [place] [address] Aug, [facility] [address] [id number] [place] [address] Aug, [facility] [address] [id number] [place] [address] Aug, [facility] [address] [id number] [place] [address] Jul, [facility] [address] [id number] [place] [address] Jul, [facility] [address] [id number] [place] [address] Jul, [facility] [address] [id number] [place] [address] Jul, [facility] [address] [id number] [place] [address] Jul, [facility] [address] [id number] [place] [address] Jul, [facility] [address] [id number] [place] [address] Jul, [facility] [address] [id number] [place] [address] Jul, [facility] [address] [id number] [place] [address] Jul, [facility] [address] [id number] [place] [address] 05 Jul, 2013 [facility] [address] [id number] [place] [address] Jul, [facility] [address] [id number] [place] [address] Jul, [facility] [address] [id number] [place] [address] Jun, [facility] [address] [id number] [place] [address] Jun, [facility] [address] [id number] [place] [address] Jun, [facility] [address] [id number] [place] [address] Jun, [facility] [address] [id number] [place] [address] 16 Jun, 2013 [facility] [address] [id number] [place] [address] Jun, [facility] [address] [id number] [place] [address] Jun, [facility] [address] [id number] [place] [address] Jun, [facility] [address] [id number] [place] [address] 15 May, 2013 [facility] [address] [id number] [place] [address] 05 May, 2013 [facility] [address] [id number] [place] [address] May, [facility] [address] [id number] [place] [address] Apr, [facility] [address] [id number] [place] [address] Apr, [facility] [address] [id number] [place] [address] Mar, [facility] [address] [id number] [place] [address] Mar, [facility] [address] [id number] [place] [address] Feb, [facility] [address] [id number] [place] [address] January, [facility] [address] [id number] [place] [address] January, [facility] [address] [id number] [place] [address] January, [facility] [facility] [address] [id number] [place] [address] January, [facility] [address] [id number] [place] [address] January, [facility] [address] [id number] [place] [address] Dec, [facility] [address] [id number] [place] [address] Dec, [facility] [address] [id number] [place] [address] Dec, [facility] [address] [id number] [place] [address] Nov, [facility] [address] [id number] [place] [address] Oct, [facility] [address] [id number] [place] [address] Oct, [facility] [address] [id number] [place] [address] Oct, [facility] [address] [id number] [place] [address] Sep, [facility] [address] [id number] [place] [address] Sep, [facility] [address] [id number] [place] [address] 14 Aug, 2012 [facility] [address] [id number] [place] [address] 14 Aug, 2012 [facility] [address] [id number] [place] [address] Aug, [facility] [address] [id number] [place] [address] Aug, [facility] [address] [id number] [place] [address] Jul, [facility] [address] [id number] [place] [address] Jul, [facility] [address] [id number] [place] [address] Jul, [facility] [address] [id number] [place] [address] Jul, [facility] [address] [id number] [place] [address] Jul, [facility] [address] [id number] [place] [address] 15 Jun, 2012 [facility] [address] [id number] [place] [address] 15 Jun, 2012 [facility] [address] [id number] [place] [address] 10 Jun, 2012 [facility] [address] [id number] [place] [address] 10 Jun, 2012 [facility] [address] [id number] [place] [address] 10 May, 2012 [facility] [address] [id number] [place] [address] Apr, [facility] [address] [id number] [place] [address] Apr, [facility] [address] [id number] [place] [address] Apr, [facility] [address] [id number] [place] [address] Apr, [facility] [address] [id number] [place] [address] January, [facility] [address] [id number] [place] [address] January, [facility] [address] [id number] [place] [address] Dec, [facility] [address] [id number] [place] [address] Dec, [facility] [address] [id number] [place] [address] Nov, [facility] [address] [id number] [place] [address] Nov, [facility] [address] [id number] [place] [address] Nov, [facility] [address] [id number] [place] [address] Nov, [facility] [address] [id number] [place] [address] Oct, [facility] [address] [id number] [place] [address] Oct, [facility] [address] [id number] [place] [address] Oct, [facility] [address] [id number] [place] [address] Sep, [facility] [address] [id number] [place] [address] Sep, [facility] [address] [id number] [place] [address] Aug, [facility] [address] [id number] [place] [address] Aug, [facility] [address] [id number] [place] [address] Jul, [facility] [address] [id number] [place] [address] Jul, [facility] [address] [id number] [place] [address] Jul, [facility] [address] [id number] [place] [address] Jun, [facility] [address] [id number] [place] [address] 24 Jun, 2011 [facility] [id number] [place] [address] Jun, [facility] [address] [id number] [place] [address] Jun, [facility] [address] [id number] [place] [address] Jun, [facility] [address] [id number] [place] [address] Jun, [facility] [address] [id number] [place] [address] Aug, [facility] [address] [id number] [place] [address] Aug, [facility] [address] [id number] [place] [address] 08 Aug, 2010 [facility] [address] [id number] [place] [address] 29 Jul, 2010 [facility] [address] [id number] [place] [address] Jul, [facility] [address] [id number] [place] [address] Jul, [facility] [address] [id number] [place] [address] 15 Jul, 2010 [facility] [address] [id number] [place] [address] 15 Jul, 2010 [facility] [address] [id number] [place] [address] 08 Jul, 2010 [facility] [address] [id number] [place] [address] Jun, [facility] [address] [id number] [place] [address] Apr, [facility] [address] [id number] [place] [address] Feb, [facility] [id number] [place] [address] Oct, [facility] [id number] [place] [address] Sep, [facility] [id number] [place] [address] Aug, [facility] [id number] [place] [address] Aug, [facility] [id number] [place] [address] Aug, [facility] [address] [id number] [place] [address] Jul, [facility] [id number] [place] [address] Jun, IMMUNIZATIONS No Known Immunizations SOCIAL HISTORY [...]
--- OUTSIDE RECORDS SUMMARY | 2020-02-22 17:14 | XMS REPORT ---
Author Author Marion CORREA Organization [facility] Address [address] [place] [address] Care Team Providers Care Sr. Strategic Sourcing Manager Name Role Phone SHABNAM CORREA Unavailable PROBLEMS Type Condition ICD9-CM Code GNS98-ZU Code Onset Dates Condition S tatus SNOMED Code Problem Acquired hypothyroidism E03.9 Active 191884063 Problem Gastro-esophageal reflux disease without esophagitis K21.9 Active 293717817 Problem Cervical disc disease M50.90 Active 905038453 Problem Dyspepsia R10.13 Active 571357970 Problem Migraine without aura and without status migrain osus, not intractable G43.009 Active [id number] ALLERGIES No Information ENCOUNTERS Encounter Location Date Diagnosis [place] [address] [address] Oct, [place] [address] [address] Oct, Cervical disc disease M50.90 [place] [address] [address] Oct, Contusion of left knee, initial encounte r S80.02XA [place] [address] [address] Oct, Cervical disc disease M50.90 [facility] [address] [facility] [id number] [address] [place] [address] Oct, [facility] N [facility] [id number] [address] [place] [address] Oct, Acute pain of left knee M25. 562 [place] [address] [place] [id number] [place] [address] Sep, [place] [address] [place] [id number] [place] [address] Sep, Cervical disc disease M50.90 [facility] [address] [address] Sep, Cervical disc disease M50.90 [facility] [address] [place] [id number] [place] [address] Aug, Cervical disc disease M50.90 [facility] [address] [address] Aug, [facility] [address] [address] Jul, Cervical disc disease M50.90 [facility] [address] [address] Jun, Cervical disc disease M50.90 [facility] [address] [address] May, [facility] [address] [address] May, Cervical disc disease M50.90 [facility] [address] [facility] [id number] [address] [place] [address] May, Acute cystitis with hematuri a N30.01 and UTI symptoms R39.9 [facility] [address] [place] [id number] [place] [address] May, [facility] [address] [address] Apr, Cervical disc disease M50.90 [facility] [address] [address] Apr, Cervical disc disease M50.90 ; Gastro-es ophageal reflux disease without esophagitis K21.9 and Sinus headache R51 [facility] [address] [place] [id number] [place] [address] Apr, [facility] [address] [address] Apr, Cervical disc disease M50.90 [facility] [address] [id number] [place] [address] Mar, [facility] [address] [place] [id number] [place] [address] Mar, Cervical disc disease M50.90 [facility] [address] [place] [id number] [place] [address] Feb, [place] [address] [place] [address] Feb, Cervical disc disease M50.90 [address] [place] [address] January, [facility] [address] [place] [id number] [place] [address] January, Cervical disc disease M50.90 [place] [address] [address] January, Cervical disc disease M50.90 [facility] [address] [place] [id number] [place] [address] Dec, Cervical disc disease M50.90 [place] [address] [address] Dec, Cervical disc disease M50.90 [place] [address] [address] Dec, Cervical disc disease M50.90 [facility] [address] [address] Dec, Cervical disc disease M50.90 ; Acquired hypothyroidism E03.9 and Migraine without aura and without status migrainosus, not intractable G43.009 [facility] [address] [place] [id number] [place] [address] Nov, [facility] [address] [address] Nov, Cervical disc disease M50.90 [place] [address] [place] [id number] [place] [address] Oct, Cervical disc disease M50.90 [facility] [address] [place] [id number] [place] [address] Sep, [facility] [address] [place] [id number] [place] [address] Sep, Cervical disc disease M50.90 [facility] [address] [place] [id number] [place] [address] Aug, Cervical disc disease M50.90 [facility] [address] [place] [id number] [place] [address] Jul, Cervical disc disease M50.90 [facility] [address] [place] [id number] [place] [address] Jun, Acute recurrent pansinusitis J01.41 and Cervical disc disease M50.90 [facility] [address] [place] [id number] [place] [address] Jun, Cervical disc disease M50.90 [facility] [address] [place] [id number] [place] [address] May, Cervical disc disease M50.90 [facility] [address] [place] [id number] [place] [address] Apr, Cervical disc disease M50.90 [facility] [address] [place] [id number] [place] [address] Mar, Cervical disc disease M50.90 [facility] [address] [place] [id number] [place] [address] Mar, [facility] [address] [place] [id number] [place] [address] Mar, Cervical disc disease M50.90 [facility] [address] [place] [id number] [place] [address] Feb, Cervical disc disease M50.90 [facility] [address] [place] [id number] [place] [address] January, Cervical disc disease M50.90 [facility] [address] [address] Dec, [facility] [address] [address] Dec, Cervical disc disease M50.90 [facility] [address] [address] Nov, Cervical disc disease M50.90 [facility] [address] [address] Nov, Cervical disc disease M50.90 [place] [address] [address] Oct, Cervical disc disease M50.90 [place] [address] [address] Oct, Cervical disc disease M50.90 and Acute n on-recurrent maxillary sinusitis J01.00 [place] [address] [address] Sep, Cervical disc disease M50.90 [facility] [address] [address] Sep, [facility] [address] [address] Sep, Fatigue, unspecified type R5 3.83 and Cough R05 [place] [address] [address] Aug, Cervical disc disease M50.90 [facility] [address] [address] Aug, Sore throat J02.9 ; Canker s ore K12.0 and History of anemia Z86.2 [place] [address] [address] Jul, Cervical disc disease M50.90 [place] [address] [address] Jun, Cervical disc disease M50.90 [facility] [address] [address] Jun, Cervical disc disease M50.90 [facility] [address] [address] May, Cervical disc disease M50.90 [facility] [address] [address] Apr, Cervical disc disease M50.90 [facility] [address] [address] Apr, [facility] [address] [address] Feb, Cervical disc disease M50.90 [facility] [address] [address] January, Cervical disc disease M50.90 [facility] [address] [address] Nov, [facility] [address] [address] Nov, Cervical disc disease M50.90 [facility] [address] [facility] [id number] [address] [place] [address] Nov, Acute cystitis with hematuri a N30.01 and Dysuria R30.0 [facility] [address] [address] Oct, Cervical disc disease M50.90 and Acute n on-recurrent frontal sinusitis J01.10 [facility] [address] [address] Sep, Neck pain M54.2 [place] [address] [address] Sep, [facility] [address] [address] Aug, Cervical disc disease M50.90 [facility] [address] [place] [id number] [place] [address] Jul, [facility] [address] [address] Jun, [facility] [address] [place] [id number] [place] [address] May, [facility] [address] [address] May, Screening for diabetes mellitus Z13.1 ; Chronic fatigue R53.82 and Edema, unspecified type R60.9 [facility] [address] [place] [id number] [place] [address] Apr, Neck pain M54.2 [facility] [address] [address] Mar, [facility] [address] [address] Mar, Neck pain M54.2 [facility] [address] [place] [id number] [place] [address] Feb, Cervical disc disease M50.90 [facility] [address] [place] [id number] [place] [address] Feb, Cervical disc disease M50.90 [facility] [address] [place] [id number] [place] [address] January, [facility] [address] [place] [id number] [place] [address] January, [facility] [address] [place] [id number] [place] [address] January, Cervical disc disease M50.90 [facility] [address] [place] [id number] [place] [address] January, [facility] [address] [place] [id number] [place] [address] January, [facility] [address] [address] 04 Dec, 2015 Cervical disc disease M50.90 [facility] [address] [address] Nov, Cervical disc disease M50.90 [facility] [address] [address] 08 Oct, 2015 Cervical disc disease M50.90 [facility] [address] [address] Sep, Cervical disc disease M50.90 [facility] [address] [id number] Aug, Dental caries K02.9 and Encounter for de ntal examination Z01.20 [facility] [address] [address] Aug, [facility] [address] [address] Aug, [facility] [address] [id number] Aug, Encounter for dental examination Z01.20 [facility] [address] [address] Jul, [facility] [address] [address] Jun, Sinusitis J32.9 and Cervical disc diseas e M50.90 [facility] [address] [address] Jun, [facility] [address] [address] 24 May, 2015 [facility] [address] [address] 23 May, 2015 [facility] [address] [address] 22 May, 2015 [facility] [address] [address] May, [facility] [address] [place] [id number] [place] [address] Apr, Cervical spondylosis without myelopathy 721.0 [facility] [address] [id number] [place] [address] Mar, [facility] [address] [place] [id number] [place] [address] January, Cervical spondylosis without myelopathy 721.0 [facility] [address] [place] [id number] [place] [address] Dec, [facility] [address] [place] [id number] [place] [address] Dec, [facility] [address] [place] [id number] [place] [address] Dec, [facility] [address] [place] [id number] [place] [address] Nov, [facility] [address] [place] [id number] [place] [address] Nov, [facility] [address] [place] [id number] [place] [address] Oct, [facility] [address] [place] [id number] [place] [address] Oct, [facility] [address] [place] [id number] [place] [address] Oct, [facility] [address] [place] [id number] [place] [address] Oct, [facility] [address] [place] [id number] [place] [address] Oct, [facility] [address] [place] [id number] [place] [address] Oct, [facility] [address] [place] [id number] [place] [address] Oct, [facility] [address] [place] [id number] [place] [address] Oct, [facility] [address] [id number] [place] [address] Oct, [facility] [address] [id number] [place] [address] Oct, [facility] [address] [id number] [place] [address] Sep, [facility] [address] [id number] [place] [address] Sep, [facility] [address] [id number] [place] [address] Sep, [facility] [address] [id number] [place] [address] Sep, [facility] [address] [id number] [place] [address] Sep, [facility] [address] [id number] [place] [address] Sep, [facility] [address] [id number] [place] [address] Sep, [facility] [address] [id number] [place] [address] Sep, [facility] [address] [id number] [place] [address] Sep, [facility] [address] [id number] [place] [address] Aug, [facility] [address] [id number] [place] [address] Aug, [facility] [address] [id number] [place] [address] Aug, [facility] [address] [id number] [place] [address] Aug, [facility] [address] [id number] [place] [address] Jul, [facility] [address] [id number] [place] [address] Jul, [facility] [address] [id number] [place] [address] Jul, [facility] [address] [id number] [place] [address] Jul, [facility] [address] [id number] [place] [address] Jul, [facility] [address] [id number] [place] [address] Jul, [facility] [address] [id number] [place] [address] Jul, [facility] [address] [id number] [place] [address] Jul, [facility] [address] [id number] [place] [address] Jun, [facility] [address] [id number] [place] [address] 27 Jun, 2014 [facility] [address] [id number] [place] [address] 20 Jun, 2014 [facility] [address] [id number] [place] [address] 20 Jun, 2014 [facility] [address] [id number] [place] [address] 16 Jun, 2014 [facility] [address] [id number] [place] [address] 15 Jun, 2014 [facility] [address] [id number] [place] [address] 15 Jun, 2014 [facility] [address] [id number] [place] [address] 14 Jun, 2014 [facility] [address] [id number] [place] [address] 14 Jun, 2014 [facility] [address] [id number] [place] [address] Jun, [facility] [address] [facility] [id number] [place] [address] Jun, [facility] [address] [facility] [id number] [place] [address] May, [facility] [address] [facility] [id number] [place] [address] May, [facility] [address] [id number] [place] [address] May, [facility] [address] [facility] [id number] [place] [address] May, [facility] [address] [id number] [place] [address] May, [facility] [address] [id number] [place] [address] Apr, [facility] [address] [id number] [place] [address] Apr, [facility] [address] [id number] [place] [address] Apr, [facility] [address] [id number] [place] [address] Apr, [facility] [address] [id number] [place] [address] Apr, [facility] [address] [id number] [place] [address] Apr, [facility] [address] [facility] [id number] [place] [address] Mar, [facility] [address] [facility] [id number] [place] [address] Mar, [facility] [address] [id number] [place] [address] Mar, [facility] [address] [id number] [place] [address] Mar, [facility] [address] [id number] [place] [address] Mar, [facility] [address] [facility] [id number] [facility] [place] [address] Mar, [facility] [address] [facility] [id number] [place] [address] Feb, [facility] [address] [id number] [place] [address] Feb, [facility] [address] [id number] [place] [address] Feb, [facility] [address] [facility] [id number] [facility] [place] [address] Feb, [facility] [address] [id number] [place] [address] Feb, [facility] [address] [id number] [place] [address] Feb, [facility] [address] [id number] [place] [address] Feb, [facility] [address] [id number] [place] [address] Feb, [facility] [address] [id number] [place] [address] January, [facility] [address] [id number] [place] [address] January, [facility] [address] [id number] [place] [address] January, [facility] [address] [facility] [id number] [place] [address] January, [facility] [address] [id number] [place] [address] January, [facility] [address] [id number] [place] [address] January, [facility] [address] [id number] [place] [address] January, [facility] [address] [id number] [place] [address] January, [facility] [address] [id number] [place] [address] Dec, [facility] [address] [id number] [place] [address] Dec, [facility] [address] [id number] [place] [address] Dec, [facility] [address] [id number] [place] [address] Dec, [facility] [address] [id number] [place] [address] Dec, [facility] [address] [id number] [place] [address] Dec, [facility] [address] [id number] [place] [address] Nov, [facility] [address] [id number] [place] [address] Nov, [facility] [address] [id number] [place] [address] Nov, [facility] [address] [id number] [place] [address] Nov, [facility] [address] [id number] [place] [address] Nov, [facility] [address] [id number] [place] [address] Nov, [facility] [address] [id number] [place] [address] Nov, [facility] [address] [id number] [place] [address] Nov, [facility] [address] [id number] [place] [address] Oct, [facility] [address] [id number] [place] [address] Oct, [facility] [address] [id number] [place] [address] Sep, [facility] [address] [id number] [place] [address] Sep, [facility] [address] [id number] [place] [address] Sep, [facility] [address] [id number] [place] [address] Sep, [facility] [address] [id number] [place] [address] Aug, [facility] [address] [id number] [place] [address] Aug, [facility] [address] [id number] [place] [address] Aug, [facility] [address] [id number] [place] [address] Aug, [facility] [address] [id number] [place] [address] Jul, [facility] [address] [id number] [place] [address] Jul, [facility] [address] [id number] [place] [address] Jul, [facility] [address] [id number] [place] [address] Jul, [facility] [address] [id number] [place] [address] Jul, [facility] [address] [id number] [place] [address] Jul, [facility] [address] [id number] [place] [address] Jul, [facility] [address] [id number] [place] [address] Jul, [facility] [address] [id number] [place] [address] Jul, [facility] [address] [id number] [place] [address] Jul, [facility] [address] [id number] [place] [address] Jul, [facility] [address] [id number] [place] [address] Jul, [facility] [address] [id number] [place] [address] Jun, [facility] [address] [id number] [place] [address] Jun, [facility] [address] [id number] [place] [address] Jun, [facility] [address] [id number] [place] [address] Jun, [facility] [address] [id number] [place] [address] Jun, [facility] [address] [facility] [facility] [id number] [place] [address] Jun, [facility] [address] [id number] [place] [address] Jun, [facility] [address] [id number] [place] [address] Jun, [facility] [address] [id number] [place] [address] 15 May, 2013 [facility] [address] [id number] [place] [address] May, [facility] [address] [id number] [place] [address] May, [facility] [address] [id number] [place] [address] Apr, [facility] [address] [id number] [place] [address] Apr, [facility] [address] [id number] [place] [address] Mar, [facility] [address] [id number] [place] [address] Mar, [facility] [address] [id number] [place] [address] Feb, [facility] [address] [id number] [place] [address] January, [facility] [address] [id number] [place] [address] January, [facility] [address] [id number] [place] [address] January, [facility] [address] [id number] [place] [address] January, [facility] [address] [id number] [place] [address] January, [facility] [address] [id number] [place] [address] Dec, [facility] [address] [id number] [place] [address] Dec, [facility] [address] [id number] [place] [address] Dec, [facility] [address] [id number] [place] [address] Nov, [facility] [address] [id number] [place] [address] Oct, [facility] [address] [id number] [place] [address] Oct, [facility] [address] [id number] [place] [address] Oct, [facility] [address] [id number] [place] [address] Sep, [facility] [address] [id number] [place] [address] 16 Sep, 2012 [facility] [address] [facility] [id number] [place] [address] 14 Aug, 2012 [facility] [address] [id number] [place] [address] 14 Aug, 2012 [facility] [address] [id number] [place] [address] Aug, [facility] [address] [id number] [place] [address] Aug, [facility] [address] [facility] [id number] [place] [address] Jul, [facility] [address] [id number] [place] [address] Jul, [facility] [address] [id number] [place] [address] Jul, [facility] [address] [id number] [place] [address] Jul, [facility] [address] [id number] [place] [address] Jul, [facility] [address] [id number] [place] [address] 15 Jun, 2012 [facility] [address] [id number] [place] [address] 15 Jun, 2012 [facility] [address] [id number] [place] [address] 10 Jun, 2012 [facility] [address] [id number] [place] [address] 10 Jun, 2012 [facility] [address] [id number] [place] [address] 10 May, 2012 [facility] [address] [id number] [place] [address] 13 Apr, 2012 [facility] [address] [id number] [place] [address] Apr, [facility] [address] [id number] [place] [address] Apr, [facility] [address] [id number] [place] [address] Apr, [facility] [address] [id number] [place] [address] January, [facility] [address] [id number] [place] [address] January, [facility] [address] [id number] [place] [address] Dec, [facility] [address] [id number] [place] [address] Dec, [facility] [address] [id number] [place] [address] Nov, [facility] [address] [id number] [place] [address] Nov, [facility] [address] [id number] [place] [address] Nov, [facility] [address] [id number] [place] [address] Nov, [facility] [address] [id number] [place] [address] Oct, [facility] [address] [id number] [place] [address] Oct, [facility] [address] [id number] [place] [address] Oct, [facility] [address] [id number] [place] [address] Sep, [facility] [address] [id number] [place] [address] Sep, [facility] [address] [id number] [place] [address] Aug, [facility] [address] [id number] [place] [address] Aug, [facility] [address] [id number] [place] [address] 15 Jul, 2011 [facility] [address] [id number] [place] [address] Jul, [facility] [address] [id number] [place] [address] Jul, [facility] [address] [id number] [place] [address] Jun, [facility] [address] [id number] [place] [address] Jun, [facility] [address] [id number] [place] [address] Jun, [facility] [address] [id number] [place] [address] Jun, [facility] [address] [id number] [place] [address] Jun, [facility] [address] [id number] [place] [address] Jun, [facility] [address] [id number] [place] [address] Aug, [facility] [address] [id number] [place] [address] Aug, [facility] [address] [id number] [place] [address] Aug, [facility] [address] [id number] [place] [address] 29 Jul, 2010 [facility] [address] [id number] [place] [address] Jul, [facility] [address] [id number] [place] [address] Jul, [facility] [address] [id number] [place] [address] 15 Jul, 2010 [facility] [address] [id number] [place] [address] 15 Jul, 2010 [facility] [address] [id number] [place] [address] Jul, [facility] [address] [id number] [place] [address] Jun, [facility] [address] [id number] [place] [address] 10 Apr, 2010 [facility] [address] [id number] [place] [address] Feb, [facility] [address] [id number] [place] [address] Oct, [facility] [address] [id number] [place] [address] Sep, [facility] [address] [id number] [place] [address] Aug, [facility] [address] [id number] [place] [address] Aug, [facility] [address] [id number] [place] [address] Aug, [facility] [address] [id number] [place] [address] Jul, [facility] [address] [id number] [place] [address] Jun, IMMUNIZATIONS No Known Immunizations SOCIAL HISTORY [...]
--- OUTSIDE RECORDS SUMMARY | 2020-02-22 17:14 | XMS REPORT ---
Author Author Marion CORREA Organization 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 Name Role Phone SHABNAM CORREA Unavailable PROBLEMS Type Condition ICD9-CM Code [id number] Code Onset Dates Condition S tatus SNOMED Code Problem Acquired hypothyroidism E03.9 Active 158556236 Problem Gastro-esophageal reflux disease without esophagitis K21.9 Active 756104645 Problem Cervical disc disease M50.90 Active 765077548 Problem Dyspepsia R10.13 Active 718630483 Problem Migraine without aura and without status migrain osus, not intractable G43.009 Active 708030011 ALLERGIES No Information ENCOUNTERS Encounter Location Date Diagnosis [place] [address] [address] Oct, Cervical disc disease M50.[address] [address] Oct, Contusion of left knee, initial encounte r S80.02XA [place] [address] [address] Oct, Cervical disc disease M50.90 [facility] [address] [place] [id number] [address] [place] [address] Oct, [facility] [address] [place] [id number] [place] [address] Oct, Acute pain of left knee M25. 562 [place] [address] [address] Sep, [place] [address] [address] Sep, Cervical disc disease M50.90 [place] [address] [address] Sep, Cervical disc disease M50.90 [facility] [address] [address] Aug, Cervical disc disease M50.90 [facility] [address] [address] Aug, [facility] [address] [address] Jul, Cervical disc disease M50.90 [facility] [address] [address] Jun, Cervical disc disease M50.90 [facility] [address] [address] May, [facility] [address] [address] May, Cervical disc disease M50.90 [facility] [address] [facility] [id number] [place] [address] May, Acute cystitis with hematuri a N30.01 and UTI symptoms R39.9 [place] [address] [address] May, [facility] [address] [address] Apr, Cervical disc disease M50.90 [facility] [address] [address] Apr, Cervical disc disease M50.90 ; Gastro-es ophageal reflux disease without esophagitis K21.[address] headache R51 [facility] [address] [address] Apr, [facility] [address] [address] Apr, Cervical disc disease M50.90 [facility] [address] [address] Mar, [facility] [address] [address] Mar, Cervical disc disease M50.90 [facility] [address] [place] [id number] [place] [address] Feb, [address] [place] [address] Feb, Cervical disc disease M50.[address] [place] [address] January, [facility] [address] [address] January, Cervical disc disease M50.90 [facility] [address] [address] January, Cervical disc disease M50.90 [facility] [address] [address] Dec, Cervical disc disease M50.90 [facility] [address] [address] Dec, Cervical disc disease M50.90 [facility] [address] [address] Dec, Cervical disc disease M50.90 [facility] [address] [address] Dec, Cervical disc disease M50.90 ; Acquired hypothyroidism E03.9 and Migraine without aura and without status migrainosus, not intractable G43.009 [facility] [address] [address] Nov, [facility] [address] [address] Nov, Cervical disc disease M50.90 [facility] [address] [address] Oct, Cervical disc disease M50.90 [facility] [address] [address] Sep, [facility] [address] [address] Sep, Cervical disc disease M50.90 [facility] [address] [place] [id number] [place] [address] Aug, Cervical disc disease M50.90 [facility] [address] [address] Jul, Cervical disc disease M50.90 [facility] [address] [address] Jun, Acute recurrent pansinusitis J01.41 and Cervical disc disease M50.90 [facility] [address] [address] Jun, Cervical disc disease M50.90 [facility] [address] [address] May, Cervical disc disease M50.90 [facility] [address] [address] Apr, Cervical disc disease M50.90 [facility] [address] [place] [id number] [place] [address] Mar, Cervical disc disease M50.90 [facility] [address] [address] Mar, [facility] [address] [address] Mar, Cervical disc disease M50.90 [facility] [address] [address] Feb, Cervical disc disease M50.90 [facility] [address] [address] January, Cervical disc disease M50.90 [facility] [address] [address] Dec, [facility] [address] [address] Dec, Cervical disc disease M50.90 [facility] [address] [address] Nov, Cervical disc disease M50.90 [place] [address] [address] Nov, Cervical disc disease M50.90 [place] [address] [address] Oct, Cervical disc disease M50.90 [place] [address] [address] Oct, Cervical disc disease M50.90 and Acute n on-recurrent maxillary sinusitis J01.00 [place] [address] [address] Sep, Cervical disc disease M50.90 [facility] [address] [address] Sep, [facility] [address] [address] Sep, Fatigue, unspecified type R5 3.83 and Cough R05 [place] [address] [address] Aug, Cervical disc disease M50.90 [facility] [address] [address] Aug, Sore throat J02.9 ; Canker s ore K12.0 and History of anemia Z86.2 [place] [address] [address] Jul, Cervical disc disease M50.90 [place] [address] [address] Jun, Cervical disc disease M50.90 [place] [address] [place] [id number] [place] [address] Jun, Cervical disc disease M50.90 [facility] [address] [address] May, Cervical disc disease M50.90 [facility] [address] [address] Apr, Cervical disc disease M50.90 [facility] [address] [address] Apr, [facility] [address] [address] Feb, Cervical disc disease M50.90 [place] [address] [address] January, Cervical disc disease M50.90 [facility] [address] [address] Nov, [facility] [address] [address] Nov, Cervical disc disease M50.90 [facility] [address] [facility] [id number] [address] [place] [address] Nov, Acute cystitis with hematuri a N30.[address] [facility] [address] [address] Oct, Cervical disc disease M50.90 and Acute n on-recurrent frontal sinusitis J01.10 [facility] [address] [place] [id number] [place] [address] Sep, Neck pain M54.2 [place] [address] [address] Sep, [facility] [address] [address] Aug, Cervical disc disease M50.90 [facility] [address] [address] Jul, [facility] [address] [place] [id number] [place] [address] Jun, [facility] [address] [address] May, [facility] [address] [place] [id number] [place] [address] May, Screening for diabetes mellitus Z13.1 ; Chronic fatigue R53.82 and Edema, unspecified type R60.9 [facility] [address] [place] [id number] [place] [address] Apr, Neck pain M54.2 [facility] [address] [address] Mar, [facility] [address] [address] Mar, Neck pain M54.2 [facility] [address] [address] Feb, Cervical disc disease M50.90 [facility] [address] [address] Feb, Cervical disc disease M50.90 [facility] [address] [place] [id number] [place] [address] January, [facility] [address] [place] [id number] [place] [address] January, [facility] [address] [place] [id number] [place] [address] January, Cervical disc disease M50.90 [facility] [address] [place] [id number] [place] [address] January, [facility] [address] [address] January, [facility] [address] [address] Dec, Cervical disc disease M50.90 [facility] [address] [address] Nov, Cervical disc disease M50.90 [facility] [address] [address] Oct, Cervical disc disease M50.90 [facility] [address] [address] Sep, Cervical disc disease M50.90 [facility] [address] [id number] Aug, Dental caries K02.9 and Encounter for de ntal examination Z01.20 [facility] [address] [address] Aug, [facility] [address] [address] Aug, [facility] [address] [id number] Aug, Encounter for dental examination Z01.20 [facility] [address] [address] Jul, [facility] [address] [address] Jun, Sinusitis J32.9 and Cervical disc diseas e M50.90 [facility] [address] [address] Jun, [facility] [address] [address] 24 May, 2015 [facility] [address] [address] May, [facility] [address] [address] 22 May, 2015 [facility] [address] [address] May, [facility] [address] [address] Apr, Cervical spondylosis without myelopathy 721.0 [facility] [place] [facility] [address] [place] [id number] [place] [address] Mar, [facility] [place] [facility] [address] [id number] [place] [address] January, Cervical spondylosis without myelopathy 721.0 [facility] [place] [facility] [address] [place] [id number] [place] [address] Dec, [facility] [place] [facility] [address] [place] [id number] [place] [address] Dec, [facility] [place] [facility] [address] [place] [id number] [place] [address] Dec, [facility] [place] [facility] [address] [place] [id number] [place] [address] Nov, [facility] [place] [facility] [address] [place] [id number] [place] [address] Nov, [facility] [place] [facility] [address] [place] [id number] [place] [address] Oct, [facility] [place] [facility] [address] [place] [id number] [place] [address] Oct, [facility] [place] [facility] [address] [place] [id number] [place] [address] Oct, [facility] [place] [facility] [address] [place] [id number] [place] [address] Oct, [facility] [place] [facility] [address] [place] [id number] [place] [address] Oct, [facility] [place] [facility] [address] [place] [id number] [place] [address] Oct, [facility] [place] [facility] [address] [place] [id number] [place] [address] Oct, [facility] [place] [facility] [address] [place] [id number] [place] [address] Oct, [facility] [place] [facility] [address] [place] [id number] [place] [address] Oct, [facility] [place] [facility] [address] [id number] [place] [address] Oct, [facility] [place] [facility] [address] [id number] [place] [address] Sep, [facility] [place] [facility] [address] [id number] [place] [address] Sep, [facility] [place] [facility] [address] [id number] [place] [address] Sep, [facility] [place] [facility] [address] [id number] [place] [address] Sep, [facility] [place] [facility] [address] [id number] [place] [address] Sep, [facility] [place] [facility] [address] [id number] [place] [address] Sep, [facility] [place] [facility] [address] [id number] [place] [address] Sep, [facility] [place] [facility] [address] [id number] [place] [address] Sep, [facility] [place] [facility] [address] [id number] [place] [address] Sep, [facility] [place] [facility] [address] [id number] [place] [address] Aug, [facility] [place] [facility] [address] [id number] [place] [address] Aug, [facility] [place] [facility] [address] [id number] [place] [address] Aug, [facility] [place] [facility] [address] [id number] [place] [address] Aug, [facility] [place] [facility] [address] [id number] [place] [address] Jul, [facility] [place] [facility] [address] [id number] [place] [address] Jul, [facility] [place] [facility] [address] [facility] [id number] [place] [address] Jul, [facility] [place] [facility] [address] [facility] [id number] [place] [address] Jul, [facility] [place] [facility] [address] [id number] [place] [address] Jul, [facility] [place] [facility] [address] [id number] [place] [address] Jul, [facility] [place] [facility] [address] [id number] [place] [address] Jul, [facility] [place] [facility] [address] [id number] [place] [address] Jul, [facility] [place] [facility] [address] [id number] [place] [address] Jun, [facility] [place] [facility] [address] [id number] [place] [address] 27 Jun, 2014 [facility] [place] [facility] [address] [id number] [place] [address] 20 Jun, 2014 [facility] [place] [facility] [address] [id number] [place] [address] 20 Jun, 2014 [facility] [place] [facility] [address] [id number] [place] [address] 16 Jun, 2014 [facility] [place] [facility] [address] [id number] [place] [address] 15 Jun, 2014 [facility] [place] [facility] [address] [id number] [place] [address] 15 Jun, 2014 [facility] [place] [facility] [address] [id number] [place] [address] 14 Jun, 2014 [facility] [place] [facility] [address] [id number] [place] [address] 14 Jun, 2014 [facility] [place] [facility] [address] [id number] [place] [address] 11 Jun, 2014 [facility] [place] [facility] [address] [id number] [place] [address] Jun, [facility] [place] [facility] [address] [facility] [id number] [place] [address] May, [facility] [place] [facility] [address] [facility] [id number] [place] [address] May, [facility] [place] [facility] [address] [id number] [place] [address] May, [facility] [place] [facility] [address] [id number] [place] [address] May, [facility] [place] [facility] [address] [facility] [id number] [place] [address] May, [facility] [place] [facility] [address] [id number] [place] [address] Apr, [facility] [place] [facility] [address] [id number] [place] [address] Apr, [facility] [place] [facility] [address] [id number] [place] [address] Apr, [facility] [place] [facility] [address] [id number] [place] [address] Apr, [facility] [place] [facility] [address] [id number] [place] [address] Apr, [facility] [place] [facility] [address] [id number] [place] [address] Apr, [facility] [place] [facility] [address] [id number] [place] [address] Mar, [facility] [place] [facility] [address] [id number] [place] [address] Mar, [facility] [place] [facility] [address] [id number] [place] [address] Mar, [facility] [place] [facility] [address] [id number] [place] [address] Mar, [facility] [place] [facility] [address] [id number] [place] [address] Mar, [facility] [place] [facility] [address] [id number] [place] [address] Mar, [facility] [place] [facility] [address] [facility] [id number] [place] [address] Feb, [facility] [place] [facility] [address] [facility] [id number] [place] [address] Feb, [facility] [place] [facility] [address] [id number] [place] [address] Feb, [facility] [place] [facility] [address] [facility] [id number] [place] [address] Feb, [facility] [place] [facility] [address] [facility] [id number] [place] [address] Feb, [facility] [place] [facility] [address] [id number] [place] [address] Feb, [facility] [place] [facility] [address] [id number] [place] [address] Feb, [facility] [place] [facility] [address] [id number] [place] [address] Feb, [facility] [place] [facility] [address] [id number] [place] [address] January, [facility] [place] [facility] [address] [id number] [place] [address] January, [facility] [place] [facility] [address] [id number] [place] [address] January, [facility] [place] [facility] [address] [id number] [place] [address] January, [facility] [place] [facility] [address] [facility] [id number] [place] [address] January, [facility] [place] [facility] [address] [id number] [place] [address] January, [facility] [place] [facility] [address] [id number] [place] [address] January, [facility] [place] [facility] [address] [id number] [place] [address] January, [facility] [place] [facility] [address] [facility] [id number] [place] [address] Dec, [facility] [place] [facility] [address] [facility] [id number] [place] [address] Dec, [facility] [place] [facility] [address] [facility] [id number] [place] [address] Dec, [facility] [place] [facility] [address] [id number] [place] [address] Dec, [facility] [place] [facility] [address] [id number] [place] [address] Dec, [facility] [place] [facility] [address] [id number] [place] [address] Dec, [facility] [place] [facility] [address] [id number] [place] [address] Nov, [facility] [place] [facility] [address] [id number] [place] [address] Nov, [facility] [place] [facility] [address] [id number] [place] [address] Nov, [facility] [place] [facility] [address] [id number] [place] [address] Nov, [facility] [place] [facility] [address] [id number] [place] [address] Nov, [facility] [place] [facility] [address] [id number] [place] [address] Nov, [facility] [place] [facility] [address] [id number] [place] [address] Nov, [facility] [place] [facility] [address] [id number] [place] [address] Nov, [facility] [place] [facility] [address] [id number] [place] [address] Oct, [facility] [place] [facility] [address] [id number] [place] [address] Oct, [facility] [place] [facility] [address] [id number] [place] [address] Sep, [facility] [address] [id number] [place] [address] Sep, [facility] [place] [facility] [address] [id number] [place] [address] Sep, [facility] [place] [facility] [address] [id number] [place] [address] Sep, [facility] [place] [facility] [address] [id number] [place] [address] Aug, [facility] [id number] [place] [address] Aug, [facility] [id number] [place] [address] Aug, [facility] [id number] [place] [address] Aug, [facility] [id number] [place] [address] Jul, [facility] [id number] [place] [address] Jul, [facility] [id number] [place] [address] Jul, [facility] [id number] [place] [address] Jul, [facility] [id number] [place] [address] Jul, [facility] [id number] [place] [address] Jul, [facility] [id number] [place] [address] Jul, [facility] [id number] [place] [address] Jul, [facility] [id number] [place] [address] Jul, [facility] [id number] [place] [address] 05 Jul, 2013 [facility] [id number] [place] [address] Jul, [facility] [id number] [place] [address] Jul, [facility] [id number] [place] [address] Jun, [facility] [id number] [place] [address] Jun, [facility] [id number] [place] [address] Jun, [facility] [id number] [place] [address] Jun, [facility] [id number] [place] [address] 16 Jun, 2013 [facility] [id number] [place] [address] Jun, [facility] [id number] [place] [address] Jun, [facility] [id number] [place] [address] Jun, [facility] [id number] [place] [address] 15 May, 2013 [facility] [id number] [place] [address] 05 May, 2013 [facility] [id number] [place] [address] May, [facility] [id number] [place] [address] Apr, [facility] [id number] [place] [address] Apr, [facility] [id number] [place] [address] Mar, [facility] [id number] [place] [address] Mar, [facility] [id number] [place] [address] Feb, [facility] [id number] [place] [address] January, [facility] [id number] [place] [address] January, [facility] [id number] [place] [address] January, [facility] [id number] [place] [address] January, [facility] [id number] [place] [address] January, [facility] [id number] [place] [address] Dec, [facility] [id number] [place] [address] Dec, [facility] [id number] [place] [address] Dec, [facility] [id number] [place] [address] Nov, [facility] [id number] [place] [address] Oct, [facility] [id number] [place] [address] 18 Oct, 2012 [facility] [id number] [place] [address] 15 Oct, 2012 [facility] [id number] [place] [address] Sep, [facility] [id number] [place] [address] 16 Sep, 2012 [facility] [id number] [place] [address] 14 Aug, 2012 [facility] [id number] [place] [address] 14 Aug, 2012 [facility] [id number] [place] [address] Aug, [facility] [id number] [place] [address] Aug, [facility] [id number] [place] [address] Jul, [facility] [id number] [place] [address] Jul, [facility] [id number] [place] [address] Jul, [facility] [id number] [place] [address] Jul, [facility] [id number] [place] [address] Jul, [facility] [id number] [place] [address] 15 Jun, 2012 [facility] [id number] [place] [address] 15 Jun, 2012 [facility] [id number] [place] [address] Jun, [facility] [id number] [place] [address] 10 Jun, 2012 [facility] [id number] [place] [address] May, [facility] [id number] [place] [address] Apr, [facility] [address] [id number] [place] [address] Apr, [facility] [id number] [place] [address] Apr, [facility] [id number] [place] [address] Apr, [facility] [id number] [place] [address] January, [facility] [id number] [place] [address] January, [facility] [id number] [place] [address] Dec, [facility] [id number] [place] [address] Dec, [facility] [id number] [place] [address] Nov, [facility] [id number] [place] [address] Nov, [facility] [id number] [place] [address] Nov, [facility] [id number] [place] [address] Nov, [facility] [id number] [place] [address] Oct, [facility] [id number] [place] [address] Oct, [facility] [id number] [place] [address] Oct, [facility] [id number] [place] [address] Sep, [facility] [id number] [place] [address] Sep, [facility] [id number] [place] [address] Aug, [facility] [id number] [place] [address] Aug, [facility] [id number] [place] [address] Jul, [facility] [id number] [place] [address] Jul, [facility] [id number] [place] [address] Jul, [facility] [id number] [place] [address] Jun, [facility] [id number] [place] [address] 24 Jun, 2011 [facility] [id number] [place] [address] Jun, [facility] [id number] [place] [address] Jun, [facility] [id number] [place] [address] Jun, [facility] [id number] [place] [address] Jun, [facility] [id number] [place] [address] Aug, [facility] [id number] [place] [address] Aug, [facility] [id number] [place] [address] Aug, [facility] [id number] [place] [address] Jul, [facility] [id number] [place] [address] Jul, [facility] [id number] [place] [address] Jul, [facility] [id number] [place] [address] Jul, [facility] [id number] [place] [address] Jul, [facility] [id number] [place] [address] Jul, [facility] [id number] [place] [address] Jun, [facility] [id number] [place] [address] Apr, [facility] [id number] [place] [address] Feb, [facility] [id number] [place] [address] Oct, [facility] [id number] [place] [address] Sep, [facility] [id number] [place] [address] Aug, [facility] [id number] [place] [address] Aug, [facility] [id number] [place] [address] Aug, [facility] [id number] [place] [address] Jul, [facility] [id number] [place] [address] Jun, IMMUNIZATIONS No Known Immunizations SOCIAL HISTORY [...]
[2020-02-22] MEDS ORDERED: ASPIRIN 81 MG CHEW (CHILDREN'S ASA) PO ONE (17:15)
--- OUTSIDE RECORDS SUMMARY | 2020-02-22 17:15 | XMS REPORT ---
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 Name Role Phone ZACKARY TRUJILLO Unavailable PROBLEMS Type Condition ICD9-CM Code WGP94-OZ Code Onset Dates Condition S tatus SNOMED Code Problem Acquired hypothyroidism E03.9 Active 876241983 Problem Gastro-esophageal reflux disease without esophagitis K21.9 Active 988630620 Problem Cervical disc disease M50.90 Active 865955022 Problem Dyspepsia R10.13 Active 399643762 Problem Migraine without aura and without status migrain osus, not intractable G43.009 Active [id number] ALLERGIES No Information ENCOUNTERS Encounter Location Date Diagnosis [place] [address] [address] Oct, Cervical disc disease M50.[address] [address] Oct, Contusion of left knee, initial encounte r S80.02XA [address] [address] Oct, Cervical disc disease M50.90 [facility] [address] [place] [id number] [address] [place] [address] Oct, [facility] N [facility] [id number] [address] [place] [address] Oct, Acute pain of left knee M25. 562 [place] [address] [address] Sep, [place] [address] [address] Sep, Cervical disc disease M50.90 [facility] [address] [place] [id number] [place] [address] Sep, Cervical disc disease M50.90 [facility] [address] [address] Aug, Cervical disc disease M50.90 [facility] [address] [address] Aug, [facility] [address] [address] Jul, Cervical disc disease M50.90 [facility] [address] [address] Jun, Cervical disc disease M50.90 [facility] [address] [address] May, [facility] [address] [address] May, Cervical disc disease M50.90 [facility] [address] [facility] [id number] [address] [place] [address] May, Acute cystitis with hematuri a N30.01 and UTI symptoms R39.9 [facility] [address] [place] [id number] [place] [address] May, [facility] [address] [address] Apr, Cervical disc disease M50.90 [facility] [address] [address] Apr, Cervical disc disease M50.90 ; Gastro-es ophageal reflux disease without esophagitis K21.9 and Sinus headache R51 [facility] [address] [place] [id number] [place] [address] Apr, [facility] [address] [address] Apr, Cervical disc disease M50.90 [facility] [address] [place] [address] Mar, [facility] [address] [address] Mar, Cervical disc disease M50.90 [facility] [address] [address] Feb, [address] [place] [address] Feb, Cervical disc disease M50.90 [address] [place] [address] January, [facility] [address] [address] January, Cervical disc disease M50.90 [facility] [address] [address] January, Cervical disc disease M50.90 [facility] [address] [address] Dec, Cervical disc disease M50.90 [facility] [address] [address] Dec, Cervical disc disease M50.90 [facility] [address] [address] Dec, Cervical disc disease M50.90 [facility] [address] [address] Dec, Cervical disc disease M50.90 ; Acquired hypothyroidism E03.9 and Migraine without aura and without status migrainosus, not intractable G43.009 [facility] [address] [address] Nov, [facility] [address] [address] Nov, Cervical disc disease M50.90 [facility] [address] [address] Oct, Cervical disc disease M50.90 [facility] [address] [place] [id number] [place] [address] Sep, [facility] [address] [place] [id number] [place] [address] Sep, Cervical disc disease M50.90 [facility] [address] [place] [id number] [place] [address] Aug, Cervical disc disease M50.90 [facility] [address] [address] Jul, Cervical disc disease M50.90 [facility] [address] [place] [id number] [place] [address] Jun, Acute recurrent pansinusitis J01.41 and Cervical disc disease M50.90 [facility] [address] [place] [id number] [place] [address] Jun, Cervical disc disease M50.90 [facility] [address] [place] [id number] [place] [address] May, Cervical disc disease M50.90 [facility] [address] [place] [id number] [place] [address] Apr, Cervical disc disease M50.90 [facility] [address] [place] [id number] [place] [address] Mar, Cervical disc disease M50.90 [facility] [address] [place] [id number] [place] [address] Mar, [facility] [address] [place] [id number] [place] [address] Mar, Cervical disc disease M50.90 [facility] [address] [place] [id number] [place] [address] Feb, Cervical disc disease M50.90 [facility] [address] [place] [id number] [place] [address] January, Cervical disc disease M50.90 [facility] [address] [address] Dec, [facility] [address] [address] Dec, Cervical disc disease M50.90 [facility] [address] [address] Nov, Cervical disc disease M50.90 [place] [address] [address] Nov, Cervical disc disease M50.90 [place] [address] [address] Oct, Cervical disc disease M50.90 [place] [address] [address] Oct, Cervical disc disease M50.90 and Acute n on-recurrent maxillary sinusitis J01.00 [place] [address] [address] Sep, Cervical disc disease M50.90 [facility] [address] [address] Sep, [facility] [address] [address] Sep, Fatigue, unspecified type R5 3.83 and Cough R05 [place] [address] [address] Aug, Cervical disc disease M50.90 [facility] [address] [place] [id number] [address] [place] [address] Aug, Sore throat J02.9 ; Canker s ore K12.0 and History of anemia Z86.2 [place] [address] [address] Jul, Cervical disc disease M50.90 [place] [address] [address] Jun, Cervical disc disease M50.90 [place] [address] [place] [id number] [place] [address] Jun, Cervical disc disease M50.90 [facility] [address] [address] May, Cervical disc disease M50.90 [facility] [address] [address] Apr, Cervical disc disease M50.90 [facility] [address] [address] Apr, [facility] [address] [address] Feb, Cervical disc disease M50.90 [facility] [address] [address] January, Cervical disc disease M50.90 [facility] [address] [address] Nov, [facility] [address] [address] Nov, Cervical disc disease M50.90 [facility] [address] [facility] [id number] [address] [place] [address] Nov, Acute cystitis with hematuri a N30.01 and Dysuria R30.0 [facility] [address] [address] Oct, Cervical disc disease M50.90 and Acute n on-recurrent frontal sinusitis J01.10 [facility] [address] [address] Sep, Neck pain M54.2 [place] [address] [address] Sep, [facility] [address] [address] Aug, Cervical disc disease M50.90 [facility] [address] [address] Jul, [facility] [address] [place] [id number] [place] [address] Jun, [facility] [address] [address] May, [facility] [address] [address] May, Screening for diabetes mellitus Z13.1 ; Chronic fatigue R53.82 and Edema, unspecified type R60.9 [facility] [address] [address] Apr, Neck pain M54.2 [facility] [address] [address] Mar, [facility] [address] [address] Mar, Neck pain M54.2 [facility] [address] [address] Feb, Cervical disc disease M50.90 [facility] [address] [address] Feb, Cervical disc disease M50.90 [facility] [address] [address] January, [facility] [address] [address] January, [facility] [address] [address] January, Cervical disc disease M50.90 [facility] [address] [address] January, [facility] [address] [address] January, [facility] [address] [address] Dec, Cervical disc disease M50.90 [facility] [address] [address] Nov, Cervical disc disease M50.90 [facility] [address] [address] Oct, Cervical disc disease M50.90 [facility] [address] [address] Sep, Cervical disc disease M50.90 [facility] [address] [id number] Aug, Dental caries K02.9 and Encounter for de ntal examination Z01.20 [facility] [address] [address] Aug, [facility] [address] [address] Aug, [facility] [address] [id number] Aug, Encounter for dental examination Z01.20 [facility] [address] [address] Jul, [facility] [address] [address] Jun, Sinusitis J32.9 and Cervical disc diseas e M50.90 [facility] [address] [address] Jun, [facility] [address] [address] 24 May, 2015 [facility] [address] [address] May, [facility] [address] [address] 22 May, 2015 [facility] [address] [address] May, [facility] [address] [address] Apr, Cervical spondylosis without myelopathy 721.0 [facility] [address] [place] [id number] [place] [address] Mar, [facility] [address] [place] [id number] [place] [address] January, Cervical spondylosis without myelopathy 721.0 [facility] [address] [place] [id number] [place] [address] Dec, [facility] [address] [place] [id number] [place] [address] Dec, [facility] [address] [place] [id number] [place] [address] Dec, [facility] [address] [place] [id number] [place] [address] Nov, [facility] [address] [place] [id number] [place] [address] Nov, [facility] [address] [place] [id number] [place] [address] Oct, [facility] [address] [place] [id number] [place] [address] Oct, [facility] [address] [place] [id number] [place] [address] Oct, [facility] [address] [place] [id number] [place] [address] Oct, [facility] [address] [place] [id number] [place] [address] Oct, [facility] [address] [place] [id number] [place] [address] Oct, [facility] [address] [place] [id number] [place] [address] Oct, [facility] [address] [address] Oct, [facility] [address] [place] [id number] [place] [address] Oct, [facility] [address] [facility] [id number] [place] [address] Oct, [facility] [address] [id number] [place] [address] Sep, [facility] [address] [id number] [place] [address] Sep, [facility] [address] [id number] [place] [address] Sep, [facility] [address] [id number] [place] [address] Sep, [facility] [address] [id number] [place] [address] Sep, [facility] [address] [id number] [place] [address] Sep, [facility] [address] [id number] [place] [address] Sep, [facility] [address] [id number] [place] [address] Sep, [facility] [address] [id number] [place] [address] Sep, [facility] [address] [id number] [place] [address] Aug, [facility] [address] [id number] [place] [address] Aug, [facility] [address] [id number] [place] [address] Aug, [facility] [address] [id number] [place] [address] Aug, [facility] [address] [id number] [place] [address] Jul, [facility] [address] [id number] [place] [address] Jul, [facility] [address] [id number] [place] [address] Jul, [facility] [address] [id number] [place] [address] Jul, [facility] [address] [id number] [place] [address] Jul, [facility] [address] [id number] [place] [address] Jul, [facility] [address] [id number] [place] [address] Jul, [facility] [address] [id number] [place] [address] Jul, [facility] [address] [id number] [place] [address] Jun, [facility] [address] [id number] [place] [address] 27 Jun, 2014 [facility] [address] [id number] [place] [address] 20 Jun, 2014 [facility] [address] [id number] [place] [address] 20 Jun, 2014 [facility] [address] [id number] [place] [address] 16 Jun, 2014 [facility] [address] [id number] [place] [address] 15 Jun, 2014 [facility] [address] [id number] [place] [address] 15 Jun, 2014 [facility] [address] [id number] [place] [address] 14 Jun, 2014 [facility] [address] [id number] [place] [address] 14 Jun, 2014 [facility] [address] [id number] [place] [address] 11 Jun, 2014 [facility] [address] [id number] [place] [address] Jun, [facility] [address] [facility] [id number] [place] [address] May, [facility] [address] [facility] [id number] [facility] [place] [address] May, [facility] [address] [facility] [id number] [place] [address] May, [facility] [address] [facility] [id number] [facility] [place] [address] May, [facility] [address] [facility] [id number] [place] [address] May, [facility] [address] [facility] [id number] [place] [address] Apr, [facility] [address] [id number] [place] [address] Apr, [facility] [address] [id number] [place] [address] Apr, [facility] [address] [facility] [id number] [place] [address] Apr, [facility] [address] [id number] [place] [address] Apr, [facility] [address] [id number] [place] [address] Apr, [facility] [address] [id number] [place] [address] Mar, [facility] [address] [facility] [id number] [place] [address] Mar, [facility] [address] [facility] [id number] [place] [address] Mar, [facility] [address] [facility] [id number] [place] [address] Mar, [facility] [address] [id number] [place] [address] Mar, [facility] [address] [facility] [id number] [facility] [place] [address] Mar, [facility] [address] [id number] [place] [address] Feb, [facility] [address] [id number] [place] [address] Feb, [facility] [address] [id number] [place] [address] Feb, [facility] [address] [id number] [place] [address] Feb, [facility] [address] [id number] [place] [address] Feb, [facility] [address] [id number] [place] [address] Feb, [facility] [address] [id number] [place] [address] Feb, [facility] [address] [id number] [place] [address] Feb, [facility] [address] [id number] [place] [address] January, [facility] [address] [id number] [place] [address] January, [facility] [address] [id number] [place] [address] January, [facility] [address] [id number] [place] [address] January, [facility] [address] [id number] [place] [address] January, [facility] [address] [id number] [place] [address] January, [facility] [address] [id number] [place] [address] January, [facility] [address] [id number] [place] [address] January, [facility] [address] [id number] [place] [address] Dec, [facility] [address] [id number] [place] [address] Dec, [facility] [address] [id number] [place] [address] Dec, [facility] [address] [id number] [place] [address] Dec, [facility] [address] [id number] [place] [address] Dec, [facility] [address] [id number] [place] [address] Dec, [facility] [address] [id number] [place] [address] Nov, [facility] [address] [id number] [place] [address] Nov, [facility] [address] [id number] [place] [address] Nov, [facility] [address] [id number] [place] [address] Nov, [facility] [address] [id number] [place] [address] Nov, [facility] [address] [id number] [place] [address] Nov, [facility] [address] [id number] [place] [address] Nov, [facility] [address] [id number] [place] [address] Nov, [facility] [address] [id number] [place] [address] Oct, [facility] [address] [id number] [place] [address] Oct, [facility] [address] [id number] [place] [address] Sep, [facility] [address] [id number] [place] [address] Sep, [facility] [address] [id number] [place] [address] Sep, [facility] [address] [id number] [place] [address] Sep, [facility] [address] [id number] [place] [address] Aug, [facility] [address] [facility] [id number] [place] [address] Aug, [facility] [address] [facility] [id number] [place] [address] Aug, [facility] [address] [id number] [place] [address] Aug, [facility] [address] [id number] [place] [address] Jul, [facility] [address] [id number] [place] [address] Jul, [facility] [address] [id number] [place] [address] Jul, [facility] [address] [id number] [place] [address] Jul, [facility] [address] [id number] [place] [address] Jul, [facility] [address] [id number] [place] [address] Jul, [facility] [address] [id number] [place] [address] Jul, [facility] [address] [id number] [place] [address] Jul, [facility] [address] [id number] [place] [address] Jul, [facility] [address] [id number] [place] [address] 05 Jul, 2013 [facility] [address] [id number] [place] [address] Jul, [facility] [address] [id number] [place] [address] Jul, [facility] [address] [id number] [place] [address] Jun, [facility] [address] [id number] [place] [address] Jun, [facility] [address] [id number] [place] [address] Jun, [facility] [address] [id number] [place] [address] Jun, [facility] [address] [id number] [place] [address] 16 Jun, 2013 [facility] [address] [id number] [place] [address] Jun, [facility] [address] [id number] [place] [address] Jun, [facility] [address] [id number] [place] [address] Jun, [facility] [address] [id number] [place] [address] 15 May, 2013 [facility] [address] [id number] [place] [address] 05 May, 2013 [facility] [address] [id number] [place] [address] May, [facility] [address] [id number] [place] [address] Apr, [facility] [address] [id number] [place] [address] Apr, [facility] [address] [id number] [place] [address] Mar, [facility] [address] [id number] [place] [address] Mar, [facility] [address] [id number] [place] [address] Feb, [facility] [address] [id number] [place] [address] January, [facility] [address] [id number] [place] [address] January, [facility] [address] [id number] [place] [address] January, [facility] [address] [id number] [place] [address] January, [facility] [address] [id number] [place] [address] January, [facility] [address] [id number] [place] [address] Dec, [facility] [address] [id number] [place] [address] Dec, [facility] [address] [id number] [place] [address] Dec, [facility] [address] [id number] [place] [address] Nov, [facility] [address] [id number] [place] [address] Oct, [facility] [address] [id number] [place] [address] Oct, [facility] [address] [id number] [place] [address] Oct, [facility] [address] [id number] [place] [address] Sep, [facility] [address] [id number] [place] [address] Sep, [facility] [address] [id number] [place] [address] 14 Aug, 2012 [facility] [address] [id number] [place] [address] 14 Aug, 2012 [facility] [address] [id number] [place] [address] Aug, [facility] [address] [id number] [place] [address] Aug, [facility] [address] [id number] [place] [address] Jul, [facility] [address] [id number] [place] [address] Jul, [facility] [address] [id number] [place] [address] Jul, [facility] [address] [id number] [place] [address] Jul, [facility] [address] [id number] [place] [address] Jul, [facility] [address] [id number] [place] [address] 15 Jun, 2012 [facility] [address] [id number] [place] [address] 15 Jun, 2012 [facility] [address] [id number] [place] [address] 10 Jun, 2012 [facility] [address] [id number] [place] [address] 10 Jun, 2012 [facility] [address] [id number] [place] [address] 10 May, 2012 [facility] [address] [id number] [place] [address] Apr, [facility] [address] [id number] [place] [address] Apr, [facility] [address] [id number] [place] [address] Apr, [facility] [address] [id number] [place] [address] Apr, [facility] [address] [id number] [place] [address] January, [facility] [address] [id number] [place] [address] January, [facility] [address] [id number] [place] [address] Dec, [facility] [address] [id number] [place] [address] Dec, [facility] [address] [id number] [place] [address] Nov, [facility] [address] [id number] [place] [address] Nov, [facility] [address] [id number] [place] [address] Nov, [facility] [address] [id number] [place] [address] Nov, [facility] [address] [id number] [place] [address] Oct, [facility] [address] [id number] [place] [address] Oct, [facility] [address] [id number] [place] [address] Oct, [facility] [address] [id number] [place] [address] Sep, [facility] [address] [id number] [place] [address] Sep, [facility] [address] [id number] [place] [address] Aug, [facility] [address] [id number] [place] [address] Aug, [facility] [address] [id number] [place] [address] Jul, [facility] [address] [id number] [place] [address] Jul, [facility] [address] [id number] [place] [address] Jul, [facility] [address] [id number] [place] [address] Jun, [facility] [address] [id number] [place] [address] 24 Jun, 2011 [facility] [address] [facility] [id number] [place] [address] Jun, [facility] [address] [id number] [place] [address] Jun, [facility] [address] [id number] [place] [address] Jun, [facility] [address] [id number] [place] [address] Jun, [facility] [address] [id number] [place] [address] Aug, [facility] [address] [id number] [place] [address] Aug, [facility] [address] [id number] [place] [address] 08 Aug, 2010 [facility] [address] [id number] [place] [address] 29 Jul, 2010 [facility] [address] [id number] [place] [address] Jul, [facility] [address] [id number] [place] [address] Jul, [facility] [address] [id number] [place] [address] 15 Jul, 2010 [facility] [address] [id number] [place] [address] 15 Jul, 2010 [facility] [address] [id number] [place] [address] 08 Jul, 2010 [facility] [address] [id number] [place] [address] Jun, [facility] [address] [id number] [place] [address] Apr, [facility] [address] [id number] [place] [address] Feb, [facility] [id number] [place] [address] Oct, [facility] [id number] [place] [address] Sep, [facility] [id number] [place] [address] Aug, [facility] [id number] [place] [address] Aug, [facility] [id number] [place] [address] Aug, [facility] [address] [id number] [place] [address] Jul, [facility] [id number] [place] [address] Jun, IMMUNIZATIONS No Known Immunizations SOCIAL HISTORY [...]
--- OUTSIDE RECORDS SUMMARY | 2020-02-22 17:15 | XMS REPORT ---
Author Author Marion CORREA Organization [facility] Address [address] [place] [address] Care Team Providers Care Feltmaker Name Role Phone SHABNAM CORREA Unavailable PROBLEMS Type Condition ICD9-CM Code MRE58-MY Code Onset Dates Condition S tatus SNOMED Code Problem Acquired hypothyroidism E03.9 Active 432157265 Problem Gastro-esophageal reflux disease without esophagitis K21.9 Active 356882039 Problem Cervical disc disease M50.90 Active 201411777 Problem Dyspepsia R10.13 Active 541316612 Problem Migraine without aura and without status migrain osus, not intractable G43.009 Active [id number] ALLERGIES No Information ENCOUNTERS Encounter Location Date Diagnosis [facility] [address] [facility] [id number] [address] [address] Oct, Acute pain of left knee M25. 562 [facility] [address] [address] Sep, [facility] [address] [address] Sep, Cervical disc disease M50.90 [facility] [address] [address] Sep, Cervical disc disease M50.90 [facility] [address] [address] Aug, Cervical disc disease M50.90 [facility] [address] [address] Aug, [facility] [address] [address] Jul, Cervical disc disease M50.90 [facility] [address] [address] Jun, Cervical disc disease M50.90 [facility] [id number] [place] [address] May, [facility] [id number] [place] [address] May, Cervical disc disease M50.90 [facility] [address] [facility] [id number] [address] [place] [address] May, Acute cystitis with hematuri a N30.01 and UTI symptoms R39.9 [facility] [id number] [place] [address] May, [facility] [address] [address] Apr, Cervical disc disease M50.90 [facility] [id number] [place] [address] Apr, Cervical disc disease M50.90 ; Gastro-es ophageal reflux disease without esophagitis K21.9 and Sinus headache R51 [facility] [id number] [place] [address] Apr, [facility] [address] [address] Apr, Cervical disc disease M50.90 [facility] [id number] [place] [address] Mar, [facility] [id number] [place] [address] Mar, Cervical disc disease M50.90 [facility] [id number] [place] [address] Feb, [address] [place] [address] Feb, Cervical disc disease M50.[address] [place] [address] January, [facility] [id number] [place] [address] January, Cervical disc disease M50.90 [facility] [address] [address] January, Cervical disc disease M50.90 [facility] [address] [address] Dec, Cervical disc disease M50.90 [facility] [address] [address] Dec, Cervical disc disease M50.90 [facility] [address] [address] Dec, Cervical disc disease M50.90 [facility] [address] [address] Dec, Cervical disc disease M50.90 ; Acquired hypothyroidism E03.9 and Migraine without aura and without status migrainosus, not intractable G43.009 [facility] [id number] [place] [address] Nov, [facility] [address] [address] Nov, Cervical disc disease M50.90 [facility] [address] [address] Oct, Cervical disc disease M50.90 [facility] [address] [address] Sep, [facility] [address] [address] Sep, Cervical disc disease M50.90 [facility] [address] [address] Aug, Cervical disc disease M50.90 [facility] [address] [address] Jul, Cervical disc disease M50.90 [facility] [address] [address] Jun, Acute recurrent pansinusitis J01.41 and Cervical disc disease M50.90 [facility] [address] [address] Jun, Cervical disc disease M50.90 [facility] [address] [address] May, Cervical disc disease M50.90 [facility] [address] [address] Apr, Cervical disc disease M50.90 [facility] [address] [address] Mar, Cervical disc disease M50.90 [facility] [address] [address] Mar, [facility] [address] [address] Mar, Cervical disc disease M50.90 [facility] [address] [address] Feb, Cervical disc disease M50.90 [facility] [address] [address] January, Cervical disc disease M50.90 [facility] [address] [address] Dec, [facility] [address] [address] Dec, Cervical disc disease M50.90 [facility] [address] [address] Nov, Cervical disc disease M50.90 [facility] [address] [address] Nov, Cervical disc disease M50.90 [facility] [address] [address] Oct, Cervical disc disease M50.90 [facility] [address] [address] Oct, Cervical disc disease M50.90 and Acute n on-recurrent maxillary sinusitis J01.00 [facility] [address] [address] Sep, Cervical disc disease M50.90 [facility] [address] [place] [address] Sep, [facility] [address] [address] Sep, Fatigue, unspecified type R5 3.83 and Cough R05 [facility] [address] [address] Aug, Cervical disc disease M50.90 [facility] [address] [address] Aug, Sore throat J02.9 ; Canker s ore K12.0 and History of anemia Z86.2 [facility] [address] [address] Jul, Cervical disc disease M50.90 [place] [address] [address] Jun, Cervical disc disease M50.90 [place] [address] [address] Jun, Cervical disc disease M50.90 [place] [address] [address] May, Cervical disc disease M50.90 [place] [address] [address] Apr, Cervical disc disease M50.90 [place] [address] [address] Apr, [place] [address] [address] Feb, Cervical disc disease M50.90 [facility] [address] [address] January, Cervical disc disease M50.90 [facility] [address] [address] Nov, [facility] [address] [address] Nov, Cervical disc disease M50.90 [facility] [address] [facility] [id number] [address] [place] [address] Nov, Acute cystitis with hematuri a N30.01 and Dysuria R30.0 [facility] [address] [address] Oct, Cervical disc disease M50.90 and Acute n on-recurrent frontal sinusitis J01.10 [place] [address] [address] Sep, Neck pain M54.2 [place] [address] [address] Sep, [place] [address] [address] Aug, Cervical disc disease M50.90 [facility] [address] [address] Jul, [place] [address] [address] Jun, [place] [address] [address] May, [place] [address] [address] May, Screening for diabetes mellitus Z13.1 ; Chronic fatigue R53.82 and Edema, unspecified type R60.9 [place] [address] [address] Apr, Neck pain M54.2 [facility] [id number] [place] [address] Mar, [facility] [address] [address] Mar, Neck pain M54.2 [facility] [address] [address] Feb, Cervical disc disease M50.90 [facility] [id number] [place] [address] Feb, Cervical disc disease M50.90 [facility] [address] [address] January, [facility] [address] [address] January, [facility] [address] [address] January, Cervical disc disease M50.90 [facility] [id number] [place] [address] January, [facility] [address] [address] January, [facility] [address] [address] Dec, Cervical disc disease M50.90 [facility] [address] [address] Nov, Cervical disc disease M50.90 [facility] [id number] [place] [address] Oct, Cervical disc disease M50.90 [facility] [id number] [place] [address] Sep, Cervical disc disease M50.90 [facility] [address] [id number] [place] [id number] 16 Aug, 2015 Dental caries K02.9 and Encounter for de ntal examination Z01.20 [facility] [id number] [place] [address] 16 Aug, 2015 [facility] [id number] [place] [address] Aug, [facility] [address] [facility] [id number] [place] [id number] 08 Aug, 2015 Encounter for dental examination Z01.20 [facility] [id number] [place] [address] Jul, [facility] [id number] [place] [address] Jun, Sinusitis J32.9 and Cervical disc diseas e M50.90 [facility] [id number] [place] [address] Jun, [facility] [address] [address] 24 May, 2015 [facility] [id number] [place] [address] May, [facility] [id number] [place] [address] May, [facility] [id number] [place] [address] May, [facility] [id number] [place] [address] Apr, Cervical spondylosis without myelopathy 721.0 [facility] [id number] [place] [address] Mar, [facility] [id number] [place] [address] January, Cervical spondylosis without myelopathy 721.0 [facility] [id number] [place] [address] 28 Dec, 2014 [facility] [address] [address] 14 Dec, 2014 [facility] [id number] [place] [address] Dec, [facility] [address] [id number] [place] [address] Nov, [facility] [address] [id number] [place] [address] Nov, [facility] [address] [id number] [place] [address] Oct, [facility] [address] [id number] [place] [address] Oct, [facility] [address] [id number] [place] [address] Oct, [facility] [address] [id number] [place] [address] Oct, [facility] [address] [id number] [place] [address] Oct, [facility] [address] [id number] [place] [address] Oct, [facility] [address] [id number] [place] [address] Oct, [facility] [address] [id number] [place] [address] Oct, [facility] [address] [id number] [place] [address] Oct, [facility] [address] [id number] [place] [address] Oct, [facility] [address] [id number] [place] [address] Sep, [facility] [address] [id number] [place] [address] Sep, [facility] [address] [id number] [place] [address] Sep, [facility] [address] [id number] [place] [address] Sep, [facility] [address] [facility] [id number] [place] [address] Sep, [facility] [address] [facility] [id number] [place] [address] Sep, [facility] [address] [id number] [place] [address] Sep, [facility] [address] [id number] [place] [address] Sep, [facility] [address] [id number] [place] [address] Sep, [facility] [address] [id number] [place] [address] Aug, [facility] [address] [id number] [place] [address] Aug, [facility] [address] [id number] [place] [address] Aug, [facility] [address] [id number] [place] [address] Aug, [facility] [address] [id number] [place] [address] Jul, [facility] [address] [id number] [place] [address] Jul, [facility] [address] [id number] [place] [address] Jul, [facility] [address] [id number] [place] [address] Jul, [facility] [address] [id number] [place] [address] Jul, [facility] [address] [id number] [place] [address] Jul, [facility] [address] [id number] [place] [address] Jul, [facility] [address] [id number] [place] [address] Jul, [facility] [address] [facility] [id number] [place] [address] Jun, [facility] [address] [id number] [place] [address] Jun, [facility] [address] [id number] [place] [address] Jun, [facility] [address] [id number] [place] [address] 20 Jun, 2014 [facility] [address] [id number] [place] [address] 16 Jun, 2014 [facility] [address] [id number] [place] [address] 15 Jun, 2014 [facility] [address] [id number] [place] [address] 15 Jun, 2014 [facility] [address] [id number] [place] [address] 14 Jun, 2014 [facility] [address] [id number] [place] [address] 14 Jun, 2014 [facility] [address] [id number] [place] [address] 11 Jun, 2014 [facility] [address] [id number] [place] [address] Jun, [facility] [address] [id number] [place] [address] 24 May, 2013 [facility] [address] [id number] [place] [address] 24 May, 2013 [facility] [address] [id number] [place] [address] 08 Sep, 2013 [facility] [address] [id number] [place] [address] 02 Sep, 2013 [facility] [address] [id number] [place] [address] 02 May2013 [facility] [address] [id number] [place] [address] Apr, [facility] [address] [facility] [id number] [place] [address] Apr, [facility] [address] [facility] [id number] [place] [address] Apr, [facility] [address] [id number] [place] [address] Apr, [facility] [address] [facility] [id number] [place] [address] Apr, [facility] [address] [facility] [id number] [place] [address] Apr, [facility] [address] [id number] [place] [address] Mar, [facility] [address] [id number] [place] [address] Mar, [facility] [address] [id number] [place] [address] Mar, [facility] [address] [id number] [place] [address] Mar, [facility] [address] [id number] [place] [address] Mar, [facility] [address] [id number] [place] [address] Mar, [facility] [address] [id number] [place] [address] Feb, [facility] [address] [facility] [id number] [place] [address] Feb, [facility] [address] [id number] [place] [address] Feb, [facility] [address] [id number] [place] [address] Feb, [facility] [address] [id number] [place] [address] Feb, [facility] [address] [facility] [id number] [place] [address] Feb, [facility] [address] [facility] [id number] [place] [address] Feb, [facility] [address] [id number] [place] [address] Feb, [facility] [address] [id number] [place] [address] January, [facility] [address] [facility] [id number] [place] [address] January, [facility] [address] [id number] [place] [address] January, [facility] [address] [id number] [place] [address] January, [facility] [address] [id number] [place] [address] January, [facility] [address] [id number] [place] [address] January, [facility] [address] [id number] [place] [address] January, [facility] [address] [id number] [place] [address] January, [facility] [address] [id number] [place] [address] Dec, [facility] [address] [id number] [place] [address] Dec, [facility] [address] [id number] [place] [address] Dec, [facility] [address] [id number] [place] [address] Dec, [facility] [address] [id number] [place] [address] Dec, [facility] [address] [id number] [facility] [address] Dec, [facility] [address] [id number] [place] [address] Nov, [facility] [address] [id number] [place] [address] Nov, [facility] [address] [id number] [place] [address] Nov, [facility] [address] [id number] [place] [address] Nov, [facility] [address] [id number] [place] [address] Nov, [facility] [address] [id number] [place] [address] Nov, [facility] [address] [id number] [place] [address] Nov, [facility] [address] [id number] [place] [address] Nov, [facility] [address] [id number] [place] [address] Oct, [facility] [address] [id number] [place] [address] Oct, [facility] [address] [id number] [place] [address] Sep, [facility] [address] [id number] [place] [address] Sep, [facility] [address] [id number] [place] [address] Sep, [facility] [address] [id number] [place] [address] Sep, [facility] [address] [id number] [place] [address] Aug, [facility] [address] [id number] [place] [address] Aug, [facility] [address] [id number] [place] [address] Aug, [facility] [address] [id number] [place] [address] Aug, [facility] [address] [id number] [place] [address] Jul, [facility] [address] [id number] [place] [address] Jul, [facility] [address] [id number] [place] [address] Jul, [facility] [address] [id number] [place] [address] Jul, [facility] [address] [id number] [place] [address] Jul, [facility] [id number] [place] [address] Jul, [facility] [address] [id number] [place] [address] Jul, [facility] [address] [id number] [place] [address] Jul, [facility] [address] [id number] [place] [address] Jul, [facility] [address] [id number] [place] [address] Jul, [facility] [address] [id number] [place] [address] Jul, [facility] [address] [id number] [place] [address] Jul, [facility] [address] [id number] [place] [address] Jun, [facility] [address] [id number] [place] [address] Jun, [facility] [address] [id number] [place] [address] Jun, [facility] [address] [facility] [id number] [place] [address] Jun, [facility] [address] [facility] [id number] [place] [address] 16 Jun, 2013 [facility] [address] [id number] [place] [address] Jun, [facility] [address] [id number] [place] [address] 14 Jun, 2013 [facility] [address] [facility] [id number] [place] [address] Jun, [facility] [address] [id number] [place] [address] 15 May, 2013 [facility] [facility] [address] [id number] [place] [address] 05 May, 2013 [facility] [address] [id number] [place] [address] May, [facility] [address] [id number] [place] [address] Apr, [facility] [address] [id number] [place] [address] Apr, [facility] [address] [id number] [place] [address] Mar, [facility] [address] [id number] [place] [address] Mar, [facility] [address] [id number] [place] [address] Feb, [facility] [address] [facility] [id number] [place] [address] January, [facility] [address] [id number] [place] [address] January, [facility] [address] [id number] [place] [address] January, [facility] [address] [id number] [place] [address] January, [facility] [address] [id number] [place] [address] January, [facility] [address] [id number] [place] [address] 29 Dec, 2012 [facility] [address] [id number] [place] [address] Dec, [facility] [address] [id number] [place] [address] Dec, [facility] [address] [id number] [place] [address] Nov, [facility] [address] [id number] [place] [address] Oct, [facility] [address] [id number] [place] [address] 18 Oct, 2012 [facility] [address] [id number] [place] [address] 15 Oct, 2012 [facility] [address] [id number] [place] [address] Sep, [facility] [address] [id number] [place] [address] 16 Sep, 2012 [facility] [address] [id number] [place] [address] 14 Aug, 2012 [facility] [address] [id number] [place] [address] 14 Aug, 2012 [facility] [address] [id number] [place] [address] Aug, [facility] [address] [id number] [place] [address] Aug, [facility] [address] [id number] [place] [address] Jul, [facility] [id number] [place] [address] Jul, [facility] [address] [id number] [place] [address] Jul, [facility] [address] [id number] [place] [address] Jul, [facility] [address] [id number] [place] [address] Jul, [facility] [address] [id number] [place] [address] Jun, [facility] [address] [id number] [place] [address] 15 Jun, 2012 [facility] [address] [id number] [place] [address] Jun, [facility] [address] [id number] [place] [address] Jun, [facility] [address] [id number] [place] [address] May, [facility] [address] [id number] [place] [address] Apr, [facility] [address] [id number] [place] [address] Apr, [facility] [address] [id number] [place] [address] Apr, [facility] [address] [id number] [place] [address] Apr, [facility] [address] [id number] [place] [address] January, [facility] [address] [id number] [place] [address] January, [facility] [address] [id number] [place] [address] Dec, [facility] [address] [id number] [place] [address] Dec, [facility] [address] [id number] [place] [address] Nov, [facility] [address] [id number] [place] [address] Nov, [facility] [address] [id number] [place] [address] Nov, [facility] [address] [id number] [place] [address] Nov, [facility] [address] [id number] [place] [address] Oct, [facility] [address] [id number] [place] [address] Oct, [facility] [address] [id number] [place] [address] Oct, [facility] [address] [id number] [place] [address] Sep, [facility] [address] [id number] [place] [address] Sep, [facility] [address] [id number] [place] [address] Aug, [facility] [address] [id number] [place] [address] Aug, [facility] [address] [id number] [place] [address] Jul, [facility] [id number] [place] [address] Jul, [facility] [address] [id number] [place] [address] Jul, [facility] [address] [id number] [place] [address] Jun, [facility] [address] [id number] [place] [address] Jun, [facility] [address] [id number] [place] [address] Jun, [facility] [address] [id number] [place] [address] 10 Jun, 2011 [facility] [address] [id number] [place] [address] 10 Jun, 2011 [facility] [address] [id number] [place] [address] 10 Jun, 2011 [facility] [address] [id number] [place] [address] 29 Aug, 2010 [facility] [address] [id number] [place] [address] Aug, [facility] [address] [id number] [place] [address] Aug, [facility] [address] [id number] [place] [address] 29 Jul, 2010 [facility] [address] [id number] [place] [address] Jul, [facility] [address] [id number] [place] [address] Jul, [facility] [address] [id number] [place] [address] 15 Jul, 2010 [facility] [address] [id number] [place] [address] 15 Jul, 2010 [facility] [address] [id number] [place] [address] Jul, [facility] [address] [id number] [place] [address] Jun, [facility] [address] [id number] [place] [address] Apr, [facility] [address] [id number] [place] [address] 11 Feb, 2010 [facility] [address] [id number] [place] [address] 10 Oct, 2009 [facility] [address] [id number] [place] [address] Sep, [facility] [address] [id number] [place] [address] Aug, [facility] [address] [id number] [place] [address] Aug, [facility] [address] [id number] [place] [address] Aug, [facility] [address] [id number] [place] [address] Jul, [facility] [address] [id number] [place] [address] Jun, IMMUNIZATIONS No Known Immunizations SOCIAL HISTORY [...]
--- OUTSIDE RECORDS SUMMARY | 2020-02-22 17:15 | XMS REPORT ---
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 Name Role Phone SHABNAM CORREA Unavailable PROBLEMS Type Condition ICD9-CM Code ZTH35-NQ Code Onset Dates Condition S tatus SNOMED Code Problem Acquired hypothyroidism E03.9 Active 233653033 Problem Gastro-esophageal reflux disease without esophagitis K21.9 Active 948318937 Problem Cervical disc disease M50.90 Active 805071651 Problem Dyspepsia R10.13 Active 052805688 Problem Migraine without aura and without status migrain osus, not intractable G43.009 Active [id number] ALLERGIES No Information ENCOUNTERS Encounter Location Date Diagnosis [facility] [address] [facility] [id number] [address] [address] Oct, Acute pain of left knee M25. 562 [facility] [address] [address] Sep, [facility] [address] [address] Sep, Cervical disc disease M50.90 [facility] [address] [address] Sep, Cervical disc disease M50.90 [facility] [address] [address] Aug, Cervical disc disease M50.90 [facility] [address] [address] Aug, [facility] [address] [address] Jul, Cervical disc disease M50.90 [facility] [address] [address] Jun, Cervical disc disease M50.90 [facility] [id number] [place] [address] May, [facility] [id number] [place] [address] May, Cervical disc disease M50.90 [facility] [address] [facility] [id number] [address] [place] [address] May, Acute cystitis with hematuri a N30.01 and UTI symptoms R39.9 [facility] [id number] [place] [address] May, [facility] [address] [address] Apr, Cervical disc disease M50.90 [place] [id number] [place] [address] Apr, Cervical disc disease M50.90 ; Gastro-es ophageal reflux disease without esophagitis K21.9 and Sinus headache R51 [facility] [id number] [place] [address] Apr, [facility] [address] [address] Apr, Cervical disc disease M50.90 [place] [id number] [place] [address] Mar, [facility] [id number] [place] [address] Mar, Cervical disc disease M50.90 [facility] [address] [id number] [place] [address] Feb, [address] [place] [address] Feb, Cervical disc disease M50.[address] [place] [address] January, [facility] [id number] [place] [address] January, Cervical disc disease M50.90 [facility] [address] [address] January, Cervical disc disease M50.90 [facility] [address] [address] Dec, Cervical disc disease M50.90 [facility] [address] [address] Dec, Cervical disc disease M50.90 [facility] [address] [address] Dec, Cervical disc disease M50.90 [facility] [address] [address] Dec, Cervical disc disease M50.90 ; Acquired hypothyroidism E03.9 and Migraine without aura and without status migrainosus, not intractable G43.009 [facility] [id number] [place] [address] Nov, [facility] [address] [address] Nov, Cervical disc disease M50.90 [facility] [address] [address] Oct, Cervical disc disease M50.90 [facility] [address] [address] Sep, [facility] [address] [address] Sep, Cervical disc disease M50.90 [facility] [address] [address] Aug, Cervical disc disease M50.90 [facility] [address] [address] Jul, Cervical disc disease M50.90 [facility] [address] [address] Jun, Acute recurrent pansinusitis J01.41 and Cervical disc disease M50.90 [facility] [address] [address] Jun, Cervical disc disease M50.90 [facility] [address] [address] May, Cervical disc disease M50.90 [facility] [address] [address] Apr, Cervical disc disease M50.90 [facility] [address] [address] Mar, Cervical disc disease M50.90 [facility] [address] [address] Mar, [facility] [address] [address] Mar, Cervical disc disease M50.90 [facility] [address] [address] Feb, Cervical disc disease M50.90 [facility] [address] [address] January, Cervical disc disease M50.90 [facility] [address] [address] Dec, [facility] [address] [address] Dec, Cervical disc disease M50.90 [facility] [address] [address] Nov, Cervical disc disease M50.90 [facility] [address] [address] Nov, Cervical disc disease M50.90 [facility] [address] [address] Oct, Cervical disc disease M50.90 [facility] [address] [address] Oct, Cervical disc disease M50.90 and Acute n on-recurrent maxillary sinusitis J01.00 [facility] [address] [address] Sep, Cervical disc disease M50.90 [facility] [address] [place] [address] Sep, [facility] [address] [address] Sep, Fatigue, unspecified type R5 3.83 and Cough R05 [place] [address] [address] Aug, Cervical disc disease M50.90 [facility] [address] [address] Aug, Sore throat J02.9 ; 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 s 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 K12.0 and History of anemia Z86.2 [place] [address] [address] Jul, Cervical disc disease M50.90 [place] [address] [address] Jun, Cervical disc disease M50.90 [place] [address] [address] Jun, Cervical disc disease M50.90 [place] [address] [address] May, Cervical disc disease M50.90 [place] [address] [address] Apr, Cervical disc disease M50.90 [place] [address] [address] Apr, [place] [address] [address] Feb, Cervical disc disease M50.90 [facility] [address] [address] January, Cervical disc disease M50.90 [facility] [address] [address] Nov, [facility] [address] [address] Nov, Cervical disc disease M50.90 [facility] [address] [facility] [id number] [address] [place] [address] Nov, Acute cystitis with hematuri a N30.01 and Dysuria R30.0 [place] [address] [address] Oct, Cervical disc disease M50.90 and Acute n on-recurrent frontal sinusitis J01.10 [place] [address] [address] Sep, Neck pain M54.2 [place] [address] [address] Sep, [place] [address] [address] Aug, Cervical disc disease M50.90 [facility] [address] [address] Jul, [place] [address] [address] Jun, [place] [address] [address] May, [place] [address] [address] May, Screening for diabetes mellitus Z13.1 ; Chronic fatigue R53.82 and Edema, unspecified type R60.9 [place] [address] [address] Apr, Neck pain M54.2 [facility] [address] [place] [address] Mar, [facility] [address] [address] Mar, Neck pain M54.2 [facility] [address] [address] Feb, Cervical disc disease M50.90 [facility] [address] [place] [address] Feb, Cervical disc disease M50.90 [facility] [address] [address] January, [facility] [address] [address] January, [facility] [address] [address] January, Cervical disc disease M50.90 [facility] [id number] [place] [address] January, [facility] [address] [address] January, [facility] [address] [address] Dec, Cervical disc disease M50.90 [facility] [address] [address] Nov, Cervical disc disease M50.90 [facility] [id number] [place] [address] Oct, Cervical disc disease M50.90 [facility] [address] [place] [address] Sep, Cervical disc disease M50.90 [facility] [address] [id number] [place] [id number] 16 Aug, 2015 Dental caries K02.9 and Encounter for de ntal examination Z01.20 [facility] [id number] [place] [address] 16 Aug, 2015 [facility] [id number] [place] [address] Aug, [facility] [address] [facility] [id number] [place] [id number] 08 Aug, 2015 Encounter for dental examination Z01.20 [facility] [id number] [place] [address] Jul, [facility] [id number] [place] [address] Jun, Sinusitis J32.9 and Cervical disc diseas e M50.90 [facility] [id number] [place] [address] Jun, [facility] [address] [address] 24 May, 2015 [facility] [id number] [place] [address] May, [facility] [id number] [place] [address] May, [facility] [id number] [place] [address] May, [facility] [id number] [place] [address] Apr, Cervical spondylosis without myelopathy 721.0 [facility] [id number] [place] [address] Mar, [facility] [address] [place] [address] January, Cervical spondylosis without myelopathy 721.0 [facility] [id number] [place] [address] 28 Dec, 2014 [facility] [address] [address] 14 Dec, 2014 [facility] [id number] [place] [address] Dec, [facility] [address] [id number] [place] [address] Nov, [facility] [address] [id number] [place] [address] Nov, [facility] [address] [id number] [place] [address] Oct, [facility] [address] [id number] [place] [address] Oct, [facility] [address] [id number] [place] [address] Oct, [facility] [address] [id number] [place] [address] Oct, [facility] [address] [id number] [place] [address] Oct, [facility] [address] [id number] [place] [address] Oct, [facility] [address] [id number] [place] [address] Oct, [facility] [address] [id number] [place] [address] Oct, [facility] [address] [id number] [place] [address] Oct, [facility] [address] [id number] [place] [address] Oct, [facility] [address] [id number] [place] [address] Sep, [facility] [address] [id number] [place] [address] Sep, [facility] [address] [id number] [place] [address] Sep, [facility] [address] [id number] [place] [address] Sep, [facility] [address] [facility] [id number] [place] [address] Sep, [facility] [address] [facility] [id number] [place] [address] Sep, [facility] [address] [id number] [place] [address] Sep, [facility] [address] [id number] [place] [address] Sep, [facility] [address] [id number] [place] [address] Sep, [facility] [address] [id number] [place] [address] Aug, [facility] [address] [id number] [place] [address] Aug, [facility] [address] [id number] [place] [address] Aug, [facility] [address] [id number] [place] [address] Aug, [facility] [address] [id number] [place] [address] Jul, [facility] [address] [id number] [place] [address] Jul, [facility] [address] [id number] [place] [address] Jul, [facility] [address] [id number] [place] [address] Jul, [facility] [address] [id number] [place] [address] Jul, [facility] [address] [id number] [place] [address] Jul, [facility] [address] [id number] [place] [address] Jul, [facility] [address] [id number] [place] [address] Jul, [facility] [address] [facility] [id number] [place] [address] Jun, [facility] [address] [id number] [place] [address] Jun, [facility] [address] [id number] [place] [address] Jun, [facility] [address] [id number] [place] [address] 20 Jun, 2014 [facility] [address] [id number] [place] [address] 16 Jun, 2014 [facility] [address] [id number] [place] [address] 15 Jun, 2014 [facility] [address] [id number] [place] [address] 15 Jun, 2014 [facility] [address] [id number] [place] [address] 14 Jun, 2014 [facility] [address] [id number] [place] [address] 14 Jun, 2014 [facility] [address] [id number] [place] [address] 11 Jun, 2014 [facility] [address] [id number] [place] [address] Jun, [facility] [address] [id number] [place] [address] 24 May, 2013 [facility] [address] [id number] [place] [address] 24 May, 2013 [facility] [address] [id number] [place] [address] 08 Sep, 2013 [facility] [address] [id number] [place] [address] 02 Sep, 2013 [facility] [address] [id number] [place] [address] 02 May2013 [facility] [address] [id number] [place] [address] Apr, [facility] [address] [facility] [id number] [place] [address] Apr, [facility] [address] [facility] [id number] [place] [address] Apr, [facility] [address] [id number] [place] [address] Apr, [facility] [address] [facility] [id number] [place] [address] Apr, [facility] [address] [facility] [id number] [place] [address] Apr, [facility] [address] [id number] [place] [address] Mar, [facility] [address] [id number] [place] [address] Mar, [facility] [address] [id number] [place] [address] Mar, [facility] [address] [id number] [place] [address] Mar, [facility] [address] [id number] [place] [address] Mar, [facility] [address] [id number] [place] [address] Mar, [facility] [address] [id number] [place] [address] Feb, [facility] [address] [facility] [id number] [place] [address] Feb, [facility] [address] [id number] [place] [address] Feb, [facility] [address] [id number] [place] [address] Feb, [facility] [address] [id number] [place] [address] Feb, [facility] [address] [facility] [id number] [place] [address] Feb, [facility] [address] [facility] [id number] [place] [address] Feb, [facility] [address] [id number] [place] [address] Feb, [facility] [address] [id number] [place] [address] January, [facility] [address] [facility] [id number] [place] [address] January, [facility] [address] [id number] [place] [address] January, [facility] [address] [id number] [place] [address] January, [facility] [address] [id number] [place] [address] January, [facility] [address] [id number] [place] [address] January, [facility] [address] [id number] [place] [address] January, [facility] [address] [id number] [place] [address] January, [facility] [address] [id number] [place] [address] Dec, [facility] [address] [id number] [place] [address] Dec, [facility] [address] [id number] [place] [address] Dec, [facility] [address] [id number] [place] [address] Dec, [facility] [address] [id number] [place] [address] Dec, [facility] [address] [id number] [facility] [place] [address] Dec, [facility] [address] [id number] [place] [address] Nov, [facility] [address] [id number] [place] [address] Nov, [facility] [address] [id number] [place] [address] Nov, [facility] [address] [id number] [place] [address] Nov, [facility] [address] [id number] [place] [address] Nov, [facility] [address] [id number] [place] [address] Nov, [facility] [address] [id number] [place] [address] Nov, [facility] [address] [id number] [place] [address] Nov, [facility] [address] [id number] [place] [address] Oct, [facility] [address] [id number] [place] [address] Oct, [facility] [address] [id number] [place] [address] Sep, [facility] [address] [id number] [place] [address] Sep, [facility] [address] [id number] [place] [address] Sep, [facility] [address] [id number] [place] [address] Sep, [facility] [address] [id number] [place] [address] Aug, [facility] [address] [id number] [place] [address] Aug, [facility] [address] [id number] [place] [address] Aug, [facility] [address] [id number] [place] [address] Aug, [facility] [address] [id number] [place] [address] Jul, [facility] [address] [id number] [place] [address] Jul, [facility] [address] [id number] [place] [address] Jul, [facility] [address] [id number] [place] [address] Jul, [facility] [address] [id number] [place] [address] Jul, [facility] [id number] [place] [address] Jul, [facility] [address] [id number] [place] [address] Jul, [facility] [address] [id number] [place] [address] Jul, [facility] [address] [id number] [place] [address] Jul, [facility] [address] [id number] [place] [address] Jul, [facility] [address] [id number] [place] [address] Jul, [facility] [address] [id number] [place] [address] Jul, [facility] [address] [id number] [place] [address] Jun, [facility] [address] [id number] [place] [address] Jun, [facility] [address] [id number] [place] [address] Jun, [facility] [address] [facility] [id number] [place] [address] Jun, [facility] [address] [facility] [id number] [place] [address] 16 Jun, 2013 [facility] [address] [id number] [place] [address] Jun, [facility] [address] [id number] [place] [address] 14 Jun, 2013 [facility] [address] [facility] [id number] [place] [address] Jun, [facility] [address] [id number] [place] [address] 15 May, 2013 [facility] [address] [id number] [place] [address] 05 May, 2013 [facility] [address] [id number] [place] [address] May, [facility] [address] [id number] [place] [address] Apr, [facility] [address] [id number] [place] [address] Apr, [facility] [address] [id number] [place] [address] Mar, [facility] [address] [id number] [place] [address] Mar, [facility] [address] [id number] [place] [place] [address] Feb, [facility] [address] [facility] [id number] [place] [address] January, [facility] [address] [id number] [place] [address] January, [facility] [address] [id number] [place] [address] January, [facility] [address] [id number] [place] [address] January, [facility] [address] [id number] [place] [address] January, [facility] [address] [id number] [place] [address] 29 Dec, 2012 [facility] [address] [id number] [place] [address] Dec, [facility] [address] [id number] [place] [address] Dec, [facility] [address] [id number] [place] [address] Nov, [facility] [address] [id number] [place] [address] Oct, [facility] [address] [id number] [place] [address] 18 Oct, 2012 [facility] [address] [id number] [place] [address] 15 Oct, 2012 [facility] [address] [id number] [place] [address] Sep, [facility] [address] [id number] [place] [address] 16 Sep, 2012 [facility] [address] [id number] [place] [address] 14 Aug, 2012 [facility] [address] [id number] [place] [address] 14 Aug, 2012 [facility] [address] [id number] [place] [address] Aug, [facility] [address] [id number] [place] [address] Aug, [facility] [address] [id number] [place] [address] Jul, [facility] [id number] [place] [address] Jul, [facility] [address] [id number] [place] [address] Jul, [facility] [address] [id number] [place] [address] Jul, [facility] [address] [id number] [place] [address] Jul, [facility] [address] [id number] [place] [address] Jun, [facility] [address] [id number] [place] [address] 15 Jun, 2012 [facility] [address] [id number] [place] [address] Jun, [facility] [address] [id number] [place] [address] Jun, [facility] [address] [id number] [place] [address] May, [facility] [address] [id number] [place] [address] Apr, [facility] [address] [id number] [place] [address] Apr, [facility] [address] [id number] [place] [address] Apr, [facility] [address] [id number] [place] [address] Apr, [facility] [address] [id number] [place] [address] January, [facility] [address] [id number] [place] [address] January, [facility] [address] [id number] [place] [address] Dec, [facility] [address] [id number] [place] [address] Dec, [facility] [address] [id number] [place] [address] Nov, [facility] [address] [id number] [place] [address] Nov, [facility] [address] [id number] [place] [address] Nov, [facility] [address] [id number] [place] [address] Nov, [facility] [address] [id number] [place] [address] Oct, [facility] [address] [id number] [place] [address] Oct, [facility] [address] [id number] [place] [address] Oct, [facility] [address] [id number] [place] [address] Sep, [facility] [address] [id number] [place] [address] Sep, [facility] [address] [id number] [place] [address] Aug, [facility] [address] [id number] [place] [address] Aug, [facility] [address] [id number] [place] [address] Jul, [facility] [id number] [place] [address] Jul, [facility] [address] [id number] [place] [address] Jul, [facility] [address] [id number] [place] [address] Jun, [facility] [address] [id number] [place] [address] Jun, [facility] [address] [id number] [place] [address] Jun, [facility] [address] [id number] [place] [address] 10 Jun, 2011 [facility] [address] [id number] [place] [address] 10 Jun, 2011 [facility] [address] [id number] [place] [address] 10 Jun, 2011 [facility] [address] [id number] [place] [address] 29 Aug, 2010 [facility] [address] [id number] [place] [address] Aug, [facility] [address] [id number] [place] [address] Aug, [facility] [address] [id number] [place] [address] 29 Jul, 2010 [facility] [address] [id number] [place] [address] Jul, [facility] [address] [id number] [place] [address] Jul, [facility] [address] [id number] [place] [address] 15 Jul, 2010 [facility] [address] [id number] [place] [address] 15 Jul, 2010 [facility] [address] [id number] [place] [address] Jul, [facility] [address] [id number] [place] [address] Jun, [facility] [address] [id number] [place] [address] Apr, [facility] [address] [id number] [place] [address] 11 Feb, 2010 [facility] [address] [id number] [place] [address] 10 Oct, 2009 [facility] [address] [id number] [place] [address] Sep, [facility] [address] [id number] [place] [address] Aug, [facility] [address] [id number] [place] [address] Aug, [facility] [address] [id number] [place] [address] Aug, [facility] [address] [id number] [place] [address] Jul, [facility] [address] [id number] [place] [address] Jun, IMMUNIZATIONS No Known Immunizations SOCIAL HISTORY [...]
--- OUTSIDE RECORDS SUMMARY | 2020-02-22 17:16 | XMS REPORT ---
Author Author Marion CORREA Organization [facility] Address [address] [place] [address] Care Team Providers Care American Studies Professor Name Role Phone SHABNAM CORREA Unavailable PROBLEMS Type Condition ICD9-CM Code CYF06-TN Code Onset Dates Condition S tatus SNOMED Code Problem Acquired hypothyroidism E03.9 Active 103794437 Problem Gastro-esophageal reflux disease without esophagitis K21.9 Active 995581043 Problem Cervical disc disease M50.90 Active 168177831 Problem Dyspepsia R10.13 Active 374191967 Problem Migraine without aura and without status migrain osus, not intractable G43.009 Active [id number] ALLERGIES No Information ENCOUNTERS Encounter Location Date Diagnosis [facility] [address] [address] Sep, [facility] [address] [address] Aug, Cervical disc disease M50.90 [facility] [address] [address] Aug, [facility] [address] [address] Jul, Cervical disc disease M50.90 [facility] [address] [address] Jun, Cervical disc disease M50.90 [facility] [address] [address] May, [facility] [address] [address] May, Cervical disc disease M50.90 [facility] [address] [facility] [id number] [address] [place] [address] May, Acute cystitis with hematuri a N30.01 and UTI symptoms R39.9 [facility] [address] [address] May, [facility] [address] [address] Apr, Cervical disc disease M50.90 [facility] [address] [address] Apr, Cervical disc disease M50.90 ; Gastro-es ophageal reflux disease without esophagitis K21.9 and Sinus headache R51 [facility] [address] [address] Apr, [facility] [address] [address] Apr, Cervical disc disease M50.90 [place] [address] [address] Mar, [facility] [address] [address] Mar, Cervical disc disease M50.90 [facility] [address] [address] Feb, [address] [place] [address] Feb, Cervical disc disease M50.[address] [place] [address] January, [facility] [id number] [place] [address] January, Cervical disc disease M50.90 [facility] [address] [address] January, Cervical disc disease M50.90 [facility] [id number] [place] [address] Dec, Cervical disc disease M50.90 [facility] [address] [address] Dec, Cervical disc disease M50.90 [facility] [address] [address] Dec, Cervical disc disease M50.90 [facility] [address] [address] Dec, Cervical disc disease M50.90 ; Acquired hypothyroidism E03.9 and Migraine without aura and without status migrainosus, not intractable G43.009 [facility] [address] [address] Nov, [facility] [address] [address] Nov, Cervical disc disease M50.90 [place] [address] [address] Oct, Cervical disc disease M50.90 [facility] [address] [address] Sep, [facility] [address] [address] Sep, Cervical disc disease M50.90 [place] [address] [address] Aug, Cervical disc disease M50.90 [place] [address] [address] Jul, Cervical disc disease M50.90 [facility] [address] [address] Jun, Acute recurrent pansinusitis J01.41 and Cervical disc disease M50.90 [facility] [address] [address] 24 Jun, 2018 Cervical disc disease M50.90 [facility] [address] [address] 28 May, 2018 Cervical disc disease M50.90 [facility] [id number] [place] [address] Apr, Cervical disc disease M50.90 [facility] [id number] [place] [address] Mar, Cervical disc disease M50.90 [facility] [id number] [place] [address] Mar, [facility] [address] [address] Mar, Cervical disc disease M50.90 [facility] [id number] [place] [address] Feb, Cervical disc disease M50.90 [facility] [address] [address] January, Cervical disc disease M50.90 [facility] [address] [address] Dec, [facility] [address] [address] Dec, Cervical disc disease M50.90 [facility] [address] [address] Nov, Cervical disc disease M50.90 [facility] [id number] [place] [address] Nov, Cervical disc disease M50.90 [facility] [address] [address] Oct, Cervical disc disease M50.90 [facility] [address] [address] Oct, Cervical disc disease M50.90 and Acute n on-recurrent maxillary sinusitis J01.00 [facility] [address] [id number] [place] [address] Sep, Cervical disc disease M50.90 [facility] [address] [facility] [id number] [address] [place] [address] Sep, [facility] [address] [facility] [id number] [address] [address] Sep, Fatigue, unspecified type R5 3.83 and Cough R05 [facility] [address] [address] Aug, Cervical disc disease M50.90 [facility] [address] [place] [id number] [address] [address] Aug, Sore throat J02.9 ; Canker s ore K12.0 and History of anemia Z86.2 [place] [address] [address] Jul, Cervical disc disease M50.90 [place] [address] [address] Jun, Cervical disc disease M50.90 [place] [address] [address] Jun, Cervical disc disease M50.90 [facility] [address] [address] May, Cervical disc disease M50.90 [place] [address] [address] Apr, Cervical disc disease M50.90 [place] [address] [address] Apr, [place] [address] [address] Feb, Cervical disc disease M50.90 [place] [address] [address] January, Cervical disc disease M50.90 [facility] [address] [address] Nov, [facility] [address] [address] Nov, Cervical disc disease M50.90 [facility] [address] [facility] [id number] [address] [place] [address] Nov, Acute cystitis with hematuri a N30.01 and Dysuria R30.0 [facility] [address] [address] Oct, Cervical disc disease M50.90 and Acute n on-recurrent frontal sinusitis J01.10 [facility] [address] [address] Sep, Neck pain M54.2 [facility] [address] [address] Sep, [facility] [address] [address] Aug, Cervical disc disease M50.90 [place] [address] [address] Jul, [facility] [address] [address] Jun, [facility] [address] [address] May, [place] [address] [address] May, Screening for diabetes mellitus Z13.1 ; Chronic fatigue R53.82 and Edema, unspecified type R60.9 [place] [address] [address] Apr, Neck pain M54.2 [facility] [address] [address] Mar, [facility] [address] [address] Mar, Neck pain M54.2 [facility] [address] [address] Feb, Cervical disc disease M50.90 [facility] [address] [place] [address] Feb, Cervical disc disease M50.90 [facility] [address] [address] January, [facility] [address] [address] January, [facility] [address] [address] January, Cervical disc disease M50.90 [facility] [address] [address] January, [facility] [address] [address] January, [facility] [address] [address] Dec, Cervical disc disease M50.90 [facility] [address] [address] Nov, Cervical disc disease M50.90 [facility] [address] [address] Oct, Cervical disc disease M50.90 [facility] [address] [address] Sep, Cervical disc disease M50.[address] [facility] [address] [id number] Aug, Dental caries K02.9 and Encounter for de ntal examination Z01.20 [facility] [address] [address] Aug, [facility] [address] [address] Aug, [facility] [address] [id number] Aug, Encounter for dental examination Z01.20 [facility] [address] [address] Jul, [facility] [id number] [place] [address] Jun, Sinusitis J32.9 and Cervical disc diseas e M50.90 [facility] [id number] [place] [address] Jun, [facility] [id number] [place] [address] May, [facility] [id number] [place] [address] May, [facility] [id number] [place] [address] May, [facility] [id number] [place] [address] May, [facility] [id number] [place] [address] Apr, Cervical spondylosis without myelopathy 721.0 [facility] [id number] [place] [address] Mar, [facility] [id number] [place] [address] January, Cervical spondylosis without myelopathy 721.0 [facility] [id number] [place] [address] Dec, [facility] [id number] [place] [address] 14 Dec, 2014 [facility] [id number] [place] [address] 13 Dec, 2014 [facility] [id number] [place] [address] Nov, [facility] [id number] [place] [address] Nov, [facility] [id number] [place] [address] Oct, [facility] [id number] [place] [address] Oct, 2014 [facility] [address] [id number] [place] [address] Oct, [facility] [address] [id number] [place] [address] Oct, 2014 [facility] [address] [id number] [place] [address] Oct, 2014 [facility] [address] [id number] [place] [address] Oct, [facility] [address] [id number] [place] [address] Oct, [facility] [address] [id number] [place] [address] Oct, [facility] [address] [id number] [place] [address] Oct, [facility] [address] [id number] [place] [address] Oct, [facility] [address] [id number] [place] [address] Sep, [facility] [address] [id number] [place] [address] Sep, [facility] [address] [id number] [place] [address] Sep, [facility] [address] [id number] [place] [address] Sep, [facility] [address] [id number] [place] [address] Sep, [facility] [address] [id number] [place] [address] Sep, [facility] [address] [id number] [place] [address] Sep, [facility] [address] [id number] [place] [address] Sep, [facility] [address] [id number] [place] [address] Sep, [facility] [address] [id number] [place] [address] Aug, [facility] [address] [id number] [place] [address] Aug, [facility] [address] [id number] [place] [address] Aug, [facility] [address] [id number] [place] [address] Aug, [facility] [address] [id number] [place] [address] Jul, [facility] [address] [id number] [place] [address] Jul, [facility] [address] [id number] [place] [address] Jul, [facility] [address] [id number] [place] [address] Jul, [facility] [address] [id number] [place] [address] Jul, [facility] [address] [id number] [place] [address] Jul, [facility] [address] [id number] [place] [address] Jul, [facility] [address] [id number] [place] [address] Jul, [facility] [address] [id number] [place] [address] Jun, [facility] [address] [id number] [place] [address] Jun, [facility] [address] [id number] [place] [address] Jun, [facility] [address] [id number] [place] [address] 20 Jun, 2014 [facility] [address] [facility] [id number] [place] [address] 16 Jun, 2014 [facility] [address] [id number] [place] [address] 15 Jun, 2014 [facility] [address] [id number] [place] [address] 15 Jun, 2014 [facility] [address] [id number] [place] [address] 14 Jun, 2014 [facility] [address] [facility] [id number] [place] [address] 14 Jun, 2014 [facility] [address] [id number] [place] [address] 11 Jun, 2014 [facility] [address] [id number] [place] [address] 11 Jun, 2014 [facility] [address] [id number] [place] [address] 24 May, 2014 [facility] [address] [id number] [place] [address] 24 May, 2014 [facility] [address] [id number] [place] [address] 08 May, 2014 [facility] [address] [id number] [place] [address] 02 May, 2014 [facility] [address] [id number] [place] [address] May, [facility] [address] [id number] [place] [address] Apr, [facility] [address] [id number] [place] [address] Apr, [facility] [address] [id number] [place] [address] Apr, [facility] [address] [id number] [place] [address] Apr, [facility] [address] [facility] [id number] [place] [address] Apr, [facility] [address] [id number] [place] [address] Apr, [facility] [address] [facility] [id number] [place] [address] Mar, [facility] [address] [id number] [place] [address] Mar, [facility] [address] [facility] [id number] [place] [address] Mar, [facility] [address] [id number] [place] [address] Mar, [facility] [address] [id number] [place] [address] Mar, [facility] [address] [id number] [place] [address] Mar, [facility] [address] [id number] [place] [address] Feb, [facility] [address] [id number] [place] [address] Feb, [facility] [address] [id number] [place] [address] Feb, [facility] [address] [id number] [place] [address] Feb, [facility] [address] [id number] [place] [address] Feb, [facility] [address] [id number] [place] [address] Feb, [facility] [address] [id number] [place] [address] Feb, [facility] [address] [id number] [place] [address] Feb, [facility] [address] [id number] [place] [address] January, [facility] [address] [id number] [place] [address] January, [facility] [address] [facility] [id number] [facility] [place] [address] January, [facility] [address] [id number] [place] [address] January, [facility] [address] [id number] [place] [address] January, [facility] [address] [facility] [id number] [facility] [place] [address] January, [facility] [address] [id number] [place] [address] January, [facility] [address] [id number] [place] [address] January, [facility] [address] [id number] [place] [address] Dec, [facility] [address] [id number] [place] [address] Dec, [facility] [address] [id number] [place] [address] Dec, [facility] [address] [id number] [place] [address] Dec, [facility] [address] [id number] [place] [address] Dec, [facility] [address] [id number] [place] [address] Dec, [facility] [address] [id number] [place] [address] Nov, [facility] [address] [id number] [place] [address] Nov, [facility] [address] [id number] [place] [address] Nov, [facility] [address] [id number] [place] [address] Nov, [facility] [address] [id number] [place] [address] Nov, [facility] [address] [id number] [place] [address] Nov, [facility] [address] [id number] [place] [address] Nov, [facility] [address] [id number] [place] [address] Nov, [facility] [address] [id number] [place] [address] Oct, [facility] [address] [id number] [place] [address] Oct, [facility] [address] [id number] [place] [address] Sep, [facility] [address] [id number] [place] [address] Sep, [facility] [address] [id number] [place] [address] Sep, [facility] [address] [id number] [place] [address] Sep, [facility] [address] [id number] [place] [address] Aug, [facility] [address] [id number] [place] [address] Aug, [facility] [address] [id number] [place] [address] Aug, [facility] [address] [id number] [place] [address] Aug, [facility] [address] [id number] [place] [address] Jul, [facility] [id number] [place] [address] Jul, [facility] [address] [id number] [place] [address] Jul, [facility] [address] [id number] [place] [address] Jul, [facility] [address] [id number] [place] [address] Jul, [facility] [address] [id number] [place] [address] Jul, [facility] [address] [id number] [place] [address] Jul, [facility] [address] [id number] [place] [address] Jul, [facility] [address] [id number] [place] [address] Jul, [facility] [address] [id number] [place] [address] Jul, [facility] [address] [id number] [place] [address] Jul, [facility] [address] [id number] [place] [address] Jul, [facility] [address] [id number] [place] [address] Jun, [facility] [address] [id number] [place] [address] Jun, [facility] [address] [id number] [place] [address] Jun, [facility] [address] [id number] [place] [address] Jun, [facility] [address] [id number] [place] [address] 16 Jun, 2013 [facility] [address] [id number] [place] [address] 14 Jun, 2013 [facility] [address] [id number] [place] [address] 14 Jun, 2013 [facility] [address] [id number] [place] [address] Jun, [facility] [address] [id number] [place] [address] 15 May, 2013 [facility] [address] [id number] [place] [address] May, [facility] [address] [id number] [place] [address] May, [facility] [address] [id number] [place] [address] Apr, [facility] [address] [id number] [place] [address] Apr, [facility] [address] [id number] [place] [address] Mar, [facility] [address] [id number] [place] [address] Mar, [facility] [address] [id number] [place] [address] Feb, [facility] [address] [id number] [place] [address] January, [facility] [address] [id number] [place] [address] January, [facility] [address] [id number] [place] [address] January, [facility] [address] [id number] [place] [address] January, [facility] [address] [id number] [place] [address] January, [facility] [address] [id number] [place] [address] 29 Dec, 2012 [facility] [address] [id number] [place] [address] Dec, [facility] [address] [id number] [place] [address] 02 Dec, 2012 [facility] [address] [id number] [place] [address] Nov, [facility] [facility] [address] [id number] [place] [address] 27 Oct, 2012 [facility] [address] [id number] [place] [address] 18 Oct, 2012 [facility] [address] [id number] [place] [address] 15 Oct, 2012 [facility] [address] [id number] [place] [address] Sep, [facility] [address] [id number] [place] [address] 16 Sep, 2012 [facility] [id number] [place] [address] 14 Aug, 2012 [facility] [id number] [place] [address] 14 Aug, 2012 [facility] [address] [id number] [place] [address] Aug, [facility] [address] [id number] [place] [address] Aug, [facility] [address] [id number] [place] [address] Jul, [facility] [address] [id number] [place] [address] Jul, [facility] [address] [id number] [place] [address] Jul, [facility] [id number] [place] [address] Jul, [facility] [address] [id number] [place] [address] Jul, [facility] [id number] [place] [address] 15 Jun, 2012 [facility] [address] [id number] [place] [address] 15 Jun, 2012 [facility] [address] [id number] [place] [address] 10 Jun, 2012 [facility] [address] [id number] [place] [address] 10 Jun, 2012 [facility] [address] [id number] [place] [address] 10 May, 2012 [facility] [address] [facility] [id number] [place] [address] Apr, [facility] [address] [id number] [place] [address] Apr, [facility] [address] [id number] [place] [address] Apr, [facility] [address] [id number] [place] [address] Apr, [facility] [address] [id number] [place] [address] January, [facility] [address] [id number] [place] [address] January, [facility] [address] [id number] [place] [address] Dec, [facility] [address] [id number] [place] [address] Dec, [facility] [address] [id number] [place] [address] Nov, [facility] [address] [id number] [place] [address] Nov, [facility] [address] [id number] [place] [address] Nov, [facility] [address] [id number] [place] [address] Nov, [facility] [address] [id number] [place] [address] Oct, [facility] [address] [id number] [place] [address] Oct, [facility] [address] [id number] [place] [address] Oct, [facility] [address] [id number] [place] [address] Sep, [facility] [address] [id number] [place] [address] Sep, [facility] [address] [id number] [place] [address] Aug, [facility] [address] [id number] [place] [address] Aug, [facility] [address] [id number] [place] [address] Jul, [facility] [address] [id number] [place] [address] Jul, [facility] [address] [id number] [place] [address] Jul, [facility] [address] [id number] [place] [address] Jun, [facility] [address] [id number] [place] [address] Jun, [facility] [address] [id number] [place] [address] Jun, [facility] [address] [id number] [place] [address] Jun, [facility] [id number] [place] [address] Jun, [facility] [address] [id number] [place] [address] Jun, [facility] [address] [id number] [place] [address] Aug, [facility] [address] [id number] [place] [address] 12 Aug, 2010 [facility] [address] [id number] [place] [address] 08 Aug, 2010 [facility] [address] [id number] [place] [address] Jul, [facility] [address] [id number] [place] [address] Jul, [facility] [address] [id number] [place] [address] Jul, [facility] [address] [id number] [place] [address] Jul, [facility] [address] [id number] [place] [address] Jul, [facility] [id number] [place] [address] Jul, [facility] [address] [id number] [place] [address] Jun, [facility] [address] [id number] [place] [address] Apr, [facility] [id number] [place] [address] Feb, [facility] [address] [id number] [place] [address] Oct, [facility] [address] [id number] [place] [address] Sep, [facility] [address] [id number] [place] [address] Aug, [facility] [id number] [place] [address] Aug, [facility] [address] [id number] [place] [address] 05 Aug, 2009 [facility] [address] [id number] [place] [address] Jul, [facility] [address] [facility] [id number] [place] [address] Jun, IMMUNIZATIONS No Known Immunizations SOCIAL HISTORY [...]
--- OUTSIDE RECORDS SUMMARY | 2020-02-22 17:16 | XMS REPORT ---
Author Author Marion CORREA Organization [facility] Address [address] [place] [address] Care Team Providers Care Concrete Pavement Installer Name Role Phone SHABNAM CORREA Unavailable PROBLEMS Type Condition ICD9-CM Code VBI25-PJ Code Onset Dates Condition S tatus SNOMED Code Problem Acquired hypothyroidism E03.9 Active 304278983 Problem Gastro-esophageal reflux disease without esophagitis K21.9 Active 645565999 Problem Cervical disc disease M50.90 Active 677124458 Problem Dyspepsia R10.13 Active 370727100 Problem Migraine without aura and without status migrain osus, not intractable G43.009 Active [id number] ALLERGIES No Information ENCOUNTERS Encounter Location Date Diagnosis [place] [address] [address] Sep, [place] [address] [address] Sep, Cervical disc disease M50.90 [place] [address] [address] Sep, Cervical disc disease M50.90 [place] [address] [address] Aug, Cervical disc disease M50.90 [place] [address] [address] Aug, [place] [address] [address] Jul, Cervical disc disease M50.90 [place] [address] [address] Jun, Cervical disc disease M50.90 [place] [address] [address] May, [facility] [address] [id number] [place] [address] May, Cervical disc disease M50.90 [facility] [address] [facility] [id number] [address] [place] [address] May, Acute cystitis with hematuri a N30.01 and UTI symptoms R39.9 [facility] [address] [place] [id number] [place] [address] May, [facility] [address] [place] [id number] [place] [address] Apr, Cervical disc disease M50.90 [place] [address] [place] [id number] [place] [address] Apr, Cervical disc disease M50.90 ; Gastro-es ophageal reflux disease without esophagitis K21.[address] [facility] [address] [place] [id number] [place] [address] Apr, [facility] [address] [place] [id number] [place] [address] Apr, Cervical disc disease M50.90 [place] [address] [place] [id number] [place] [address] Mar, [facility] [address] [place] [id number] [place] [address] Mar, Cervical disc disease M50.90 [facility] [address] [place] [id number] [place] [address] Feb, [address] [place] [address] Feb, Cervical disc disease M50.[address] [place] [address] January, [facility] [address] [id number] [place] [address] January, Cervical disc disease M50.90 [place] [address] [address] January, Cervical disc disease M50.90 [facility] [address] [address] Dec, Cervical disc disease M50.90 [facility] [address] [address] Dec, Cervical disc disease M50.90 [facility] [address] [address] Dec, Cervical disc disease M50.90 [facility] [address] [address] Dec, Cervical disc disease M50.90 ; Acquired hypothyroidism E03.9 and Migraine without aura and without status migrainosus, not intractable G43.009 [facility] [address] [address] Nov, [facility] [address] [address] Nov, Cervical disc disease M50.90 [facility] [address] [address] Oct, Cervical disc disease M50.90 [facility] [address] [address] Sep, [facility] [address] [address] Sep, Cervical disc disease M50.90 [facility] [address] [address] Aug, Cervical disc disease M50.90 [facility] [address] [address] Jul, Cervical disc disease M50.90 [facility] [address] [address] Jun, Acute recurrent pansinusitis J01.41 and Cervical disc disease M50.90 [facility] [address] [place] [id number] [place] [address] Jun, Cervical disc disease M50.90 [facility] [address] [place] [id number] [place] [address] May, Cervical disc disease M50.90 [facility] [address] [place] [id number] [place] [address] Apr, Cervical disc disease M50.90 [facility] [address] [place] [id number] [place] [address] Mar, Cervical disc disease M50.90 [facility] [address] [place] [id number] [place] [address] Mar, [facility] [address] [place] [id number] [place] [address] Mar, Cervical disc disease M50.90 [facility] [address] [place] [id number] [place] [address] Feb, Cervical disc disease M50.90 [facility] [address] [place] [id number] [place] [address] January, Cervical disc disease M50.90 [facility] [address] [place] [id number] [place] [address] Dec, [facility] [address] [place] [id number] [place] [address] Dec, Cervical disc disease M50.90 [facility] [address] [place] [id number] [place] [address] Nov, Cervical disc disease M50.90 [facility] [address] [place] [id number] [place] [address] Nov, Cervical disc disease M50.90 [facility] [address] [place] [id number] [place] [address] Oct, Cervical disc disease M50.90 [facility] [address] [place] [id number] [place] [address] Oct, Cervical disc disease M50.90 and Acute n on-recurrent maxillary sinusitis J01.00 [place] [address] [address] Sep, Cervical disc disease M50.90 [facility] [address] [place] [id number] [address] [place] [address] Sep, [facility] [address] [place] [id number] [address] [place] [address] Sep, Fatigue, unspecified type R5 3.83 and Cough R05 [place] [address] [address] Aug, Cervical disc disease M50.90 [facility] [address] [place] [id number] [place] [address] Aug, Sore throat J02.9 ; Canker s ore K12.0 and History of anemia Z86.2 [place] [address] [address] Jul, Cervical disc disease M50.90 [place] [address] [address] Jun, Cervical disc disease M50.90 [place] [address] [address] Jun, Cervical disc disease M50.90 [place] [address] [address] May, Cervical disc disease M50.90 [place] [address] [address] Apr, Cervical disc disease M50.90 [place] [address] [address] Apr, [place] [address] [address] Feb, Cervical disc disease M50.90 [place] [address] [address] January, Cervical disc disease M50.90 [facility] [address] [place] [id number] [place] [address] Nov, [facility] [address] [address] Nov, Cervical disc disease M50.90 [facility] [address] [facility] [id number] 100[address] [place] [address] Nov, Acute cystitis with hematuri a N30.[address] [facility] [address] [address] Oct, Cervical disc disease M50.90 and Acute n on-recurrent frontal sinusitis J01.10 [place] [address] [address] Sep, Neck pain M54.2 [place] [address] [address] Sep, [facility] [address] [address] Aug, Cervical disc disease M50.90 [place] [address] [address] Jul, [place] [address] [address] Jun, [place] [address] [address] May, [place] [address] [address] May, Screening for diabetes mellitus Z13.1 ; Chronic fatigue R53.82 and Edema, unspecified type R60.9 [place] [address] [place] [id number] [place] [address] Apr, Neck pain M54.2 [facility] [address] [address] Mar, [place] [address] [place] [id number] [place] [address] Mar, Neck pain M54.2 [facility] [address] [address] Feb, Cervical disc disease M50.90 [facility] [address] [place] [id number] [place] [address] Feb, Cervical disc disease M50.90 [facility] [address] [address] January, [facility] [address] [address] January, [facility] [address] [address] January, Cervical disc disease M50.90 [facility] [address] [address] January, [facility] [address] [address] January, [facility] [address] [place] [id number] [place] [address] Dec, Cervical disc disease M50.90 [facility] [address] [address] Nov, Cervical disc disease M50.90 [facility] [address] [place] [id number] [place] [address] Oct, Cervical disc disease M50.90 [facility] [address] [place] [id number] [place] [address] Sep, Cervical disc disease M50.90 [facility] [address] [id number] [place] [id number] Aug, Dental caries K02.9 and Encounter for de ntal examination Z01.20 [facility] [address] [place] [id number] [place] [address] Aug, [facility] [address] [address] 15 Aug, 2015 [facility] [address] [facility] [id number] [place] [id number] 08 Aug, 2015 Encounter for dental examination Z01.20 [facility] [address] [place] [id number] [place] [address] 16 Jul, 2015 [facility] [address] [place] [id number] [place] [address] Jun, Sinusitis J32.9 and Cervical disc diseas e M50.90 [facility] [address] [place] [id number] [place] [address] Jun, [facility] [address] [address] 24 May, 2015 [facility] [address] [place] [id number] [place] [address] May, [facility] [address] [address] May, [facility] [address] [place] [id number] [place] [address] May, [facility] [address] [address] Apr, Cervical spondylosis without myelopathy 721.0 [facility] [address] [place] [id number] [place] [address] Mar, [facility] [address] [place] [id number] [place] [address] January, Cervical spondylosis without myelopathy 721.0 [facility] [address] [place] [id number] [place] [address] 28 Dec, 2014 [facility] [address] [address] 14 Dec, 2014 [facility] [address] [place] [id number] [place] [address] 13 Dec, 2014 [facility] [address] [address] Nov, [facility] [place] [facility] [address] [id number] [place] [address] Nov, [facility] [place] [facility] [address] [id number] [place] [address] Oct, [facility] [place] [facility] [address] [id number] [place] [address] Oct, [facility] [place] [facility] [address] [id number] [place] [address] Oct, [facility] [place] [facility] [address] [id number] [place] [address] Oct, [facility] [place] [facility] [address] [id number] [place] [address] Oct, [facility] [place] [facility] [address] [id number] [place] [address] Oct, [facility] [place] [facility] [address] [id number] [place] [address] Oct, [facility] [place] [facility] [address] [id number] [place] [address] Oct, [facility] [place] [facility] [address] [id number] [place] [address] Oct, [facility] [place] [facility] [address] [id number] [place] [address] Oct, [facility] [place] [facility] [address] [id number] [place] [address] Sep, [facility] [place] [facility] [address] [id number] [place] [address] Sep, [facility] [place] [facility] [address] [id number] [place] [address] Sep, [facility] [place] [facility] [address] [id number] [place] [address] Sep, [facility] [place] [facility] [address] [id number] [place] [address] Sep, [facility] [place] [facility] [address] [id number] [place] [address] Sep, [facility] [place] [facility] [address] [id number] [place] [address] Sep, [facility] [place] [facility] [address] [id number] [place] [address] Sep, [facility] [place] [facility] [address] [id number] [place] [address] Sep, [facility] [place] [facility] [address] [id number] [place] [address] Aug, [facility] [place] [facility] [address] [id number] [place] [address] Aug, [facility] [place] [facility] [address] [id number] [place] [address] Aug, [facility] [place] [facility] [address] [id number] [place] [address] Aug, [facility] [place] [facility] [address] [id number] [place] [address] Jul, [facility] [place] [facility] [address] [id number] [place] [address] Jul, [facility] [place] [facility] [address] [id number] [place] [address] Jul, [facility] [place] [facility] [address] [id number] [place] [address] Jul, [facility] [place] [facility] [address] [id number] [place] [address] Jul, [facility] [place] [facility] [address] [id number] [place] [address] Jul, [facility] [place] [facility] [address] [place] [id number] [place] [address] Jul, [facility] [place] [facility] [address] [id number] [place] [address] Jul, [facility] [place] [facility] [address] [id number] [place] [address] Jun, [facility] [place] [facility] [address] [facility] [id number] [place] [address] 27 Jun, 2013 [facility] [place] [facility] [address] [id number] [place] [address] 20 Jun, 2013 [facility] [place] [facility] [address] [id number] [place] [address] 20 Jun, 2013 [facility] [place] [facility] [address] [id number] [place] [address] 16 Jun, 2013 [facility] [place] [facility] [address] [facility] [id number] [place] [address] 15 Jun, 2014 [facility] [place] [facility] [address] [id number] [place] [address] 15 Jun, 2014 [facility] [place] [facility] [address] [id number] [place] [address] 14 Jun, 2014 [facility] [place] [facility] [address] [id number] [place] [address] 14 Jun, 2014 [facility] [place] [facility] [address] [id number] [place] [address] 11 Jun, 2014 [facility] [place] [facility] [address] [id number] [place] [address] 11 Jun, 2014 [facility] [place] [facility] [address] [id number] [place] [address] 24 May, 2013 [facility] [place] [facility] [address] [id number] [place] [address] 24 May, 2013 [facility] [place] [facility] [address] [id number] [place] [address] 08 May, 2013 [facility] [place] [facility] [address] [id number] [place] [address] 02 May, 2013 [facility] [place] [facility] [address] [id number] [place] [address] 02 May, 2013 [facility] [place] [facility] [address] [id number] [place] [address] 26 Apr, 2013 [facility] [place] [facility] [address] [id number] [place] [address] Apr, [facility] [place] [facility] [address] [facility] [id number] [facility] [place] [address] Apr, [facility] [place] [facility] [address] [facility] [id number] [place] [address] Apr, [facility] [place] [facility] [address] [facility] [id number] [facility] [place] [address] Apr, [facility] [place] [facility] [address] [facility] [id number] [place] [address] Apr, [facility] [place] [facility] [address] [facility] [id number] [place] [address] Mar, [facility] [place] [facility] [address] [facility] [id number] [place] [address] Mar, [facility] [place] [facility] [address] [id number] [facility] [place] [address] Mar, [facility] [place] [facility] [address] [id number] [facility] [place] [address] Mar, [facility] [place] [facility] [address] [facility] [id number] [facility] [place] [address] Mar, [facility] [place] [facility] [address] [id number] [facility] [place] [address] Mar, [facility] [place] [facility] [address] [id number] [place] [address] Feb, [facility] [place] [facility] [address] [id number] [facility] [place] [address] Feb, [facility] [place] [facility] [address] [facility] [id number] [facility] [place] [address] Feb, [facility] [place] [facility] [address] [id number] [place] [address] Feb, [facility] [place] [facility] [address] [facility] [id number] [facility] [place] [address] Feb, [facility] [place] [facility] [address] [id number] [facility] [place] [address] Feb, [facility] [place] [facility] [address] [facility] [id number] [place] [address] Feb, [facility] [place] [facility] [address] [facility] [id number] [place] [address] Feb, [facility] [place] [facility] [address] [id number] [place] [address] January, [facility] [place] [facility] [address] [id number] [place] [address] January, [facility] [place] [facility] [address] [id number] [place] [address] January, [facility] [place] [facility] [address] [id number] [place] [address] January, [facility] [place] [facility] [address] [id number] [place] [address] January, [facility] [address] [id number] [place] [address] January, [facility] [address] [id number] [place] [address] January, [facility] [address] [id number] [place] [address] January, [facility] [address] [id number] [place] [address] Dec, [facility] [address] [id number] [place] [address] Dec, [facility] [address] [id number] [place] [address] Dec, [facility] [address] [id number] [place] [address] Dec, [facility] [address] [id number] [place] [address] Dec, [facility] [address] [id number] [place] [address] Dec, [facility] [address] [id number] [place] [address] Nov, [facility] [address] [id number] [place] [address] Nov, [facility] [address] [id number] [place] [address] Nov, [facility] [address] [id number] [place] [address] Nov, [facility] [address] [id number] [place] [address] Nov, [facility] [address] [id number] [place] [address] Nov, [facility] [address] [id number] [place] [address] Nov, [facility] [address] [id number] [place] [address] Nov, [facility] [address] [id number] [place] [address] Oct, [facility] [address] [id number] [place] [address] Oct, [facility] [address] [id number] [place] [address] Sep, [facility] [address] [id number] [place] [address] Sep, [facility] [address] [id number] [place] [address] Sep, [facility] [address] [id number] [place] [address] Sep, [facility] [address] [id number] [place] [address] Aug, [facility] [address] [id number] [place] [address] Aug, [facility] [address] [id number] [place] [address] Aug, [facility] [address] [id number] [place] [address] Aug, [facility] [address] [id number] [place] [address] Jul, [facility] [address] [id number] [place] [address] Jul, [facility] [address] [id number] [place] [address] Jul, [facility] [address] [id number] [place] [address] Jul, [facility] [address] [id number] [place] [address] Jul, [facility] [address] [id number] [place] [address] Jul, [facility] [address] [id number] [place] [address] Jul, [facility] [address] [id number] [place] [address] Jul, [facility] [address] [id number] [place] [address] Jul, [facility] [address] [id number] [place] [address] Jul, [facility] [address] [id number] [place] [address] Jul, [facility] [address] [id number] [place] [address] Jul, [facility] [address] [id number] [place] [address] Jun, [facility] [address] [id number] [place] [address] Jun, [facility] [address] [id number] [place] [address] Jun, [facility] [address] [id number] [place] [address] Jun, [facility] [address] [id number] [place] [address] 16 Jun, 2013 [facility] [address] [id number] [place] [address] 14 Jun, 2013 [facility] [address] [id number] [place] [address] 14 Jun, 2013 [facility] [address] [id number] [place] [address] 02 Jun, 2013 [facility] [address] [id number] [place] [address] 15 May, 2013 [facility] [address] [id number] [place] [address] 05 May, 2013 [facility] [address] [id number] [place] [address] May, [facility] [address] [id number] [place] [address] Apr, [facility] [address] [id number] [place] [address] Apr, [facility] [address] [id number] [place] [address] Mar, [facility] [address] [id number] [place] [address] Mar, [facility] [address] [id number] [place] [address] Feb, [facility] [address] [id number] [place] [address] January, [facility] [address] [id number] [place] [address] January, [facility] [address] [id number] [place] [address] January, [facility] [address] [id number] [place] [address] January, [facility] [address] [id number] [place] [address] January, [facility] [address] [facility] [id number] [place] [address] 29 Dec, 2012 [facility] [address] [id number] [place] [address] Dec, [facility] [address] [id number] [place] [address] Dec, [facility] [address] [id number] [place] [address] Nov, [facility] [address] [facility] [id number] [place] [address] Oct, [facility] [address] [id number] [place] [address] Oct, [facility] [address] [id number] [place] [address] 15 Oct, 2012 [facility] [address] [id number] [place] [address] Sep, [facility] [address] [id number] [place] [address] 16 Sep, 2012 [facility] [address] [id number] [place] [address] 14 Aug, 2012 [facility] [address] [id number] [place] [address] 14 Aug, 2012 [facility] [address] [id number] [place] [address] Aug, [facility] [address] [id number] [place] [address] Aug, [facility] [address] [id number] [place] [address] Jul, [facility] [address] [id number] [place] [address] Jul, [facility] [address] [id number] [place] [address] Jul, [facility] [address] [id number] [place] [address] Jul, [facility] [address] [id number] [place] [address] Jul, [facility] [address] [id number] [place] [address] Jun, [facility] [address] [id number] [place] [address] 15 Jun, 2012 [facility] [address] [id number] [place] [address] Jun, [facility] [address] [id number] [place] [address] Jun, [facility] [address] [id number] [place] [address] May, [facility] [address] [id number] [place] [address] Apr, [facility] [address] [id number] [place] [address] Apr, [facility] [address] [id number] [place] [address] Apr, [facility] [address] [id number] [place] [address] Apr, [facility] [address] [id number] [place] [address] January, [facility] [address] [id number] [place] [address] January, [facility] [address] [id number] [place] [address] Dec, [facility] [address] [id number] [place] [address] Dec, [facility] [address] [id number] [place] [address] Nov, [facility] [address] [id number] [place] [address] Nov, [facility] [address] [id number] [place] [address] Nov, [facility] [address] [id number] [place] [address] Nov, [facility] [address] [id number] [place] [address] Oct, [facility] [id number] [place] [address] Oct, [facility] [address] [id number] [place] [address] Oct, [facility] [address] [id number] [place] [address] Sep, [facility] [id number] [place] [address] Sep, [facility] [id number] [place] [address] Aug, [facility] [address] [id number] [place] [address] Aug, [facility] [id number] [place] [address] Jul, [facility] [address] [id number] [place] [address] Jul, [facility] [id number] [place] [address] Jul, [facility] [address] [id number] [place] [address] Jun, [facility] [address] [id number] [place] [address] 24 Jun, 2011 [facility] [address] [id number] [place] [address] Jun, [facility] [address] [id number] [place] [address] Jun, [facility] [address] [id number] [place] [address] 10 Jun, 2011 [facility] [address] [id number] [place] [address] Jun, [facility] [address] [id number] [place] [address] Aug, [facility] [address] [id number] [place] [address] Aug, [facility] [address] [id number] [place] [address] Aug, [facility] [address] [id number] [place] [address] Jul, [facility] [address] [id number] [place] [address] Jul, [facility] [address] [id number] [place] [address] Jul, [facility] [address] [id number] [place] [address] Jul, [facility] [address] [id number] [place] [address] Jul, [facility] [address] [id number] [place] [address] Jul, [facility] [address] [id number] [place] [address] Jun, [facility] [address] [id number] [place] [address] Apr, [facility] [address] [id number] [place] [address] Feb, [facility] [address] [id number] [place] [address] Oct, [facility] [address] [id number] [place] [address] Sep, [facility] [address] [id number] [place] [address] Aug, [facility] [address] [id number] [place] [address] Aug, [facility] [address] [id number] [place] [address] Aug, [facility] [address] [id number] [place] [address] Jul, [facility] [address] [id number] [place] [address] Jun, IMMUNIZATIONS No Known Immunizations SOCIAL HISTORY Never Assessed REASON FOR VISIT PLAN OF CARE VITAL SIGNS Height 65 in 2013-12-31 Weight 173.8 lbs 2013-12-31 Temperature 99 degrees Fahrenheit 2013-12-31 Heart Rate 86 bpm 2013-12-31 Respiratory Rate 16 2013-12-31 Blood pressure systolic 135 mmHg 2013-12-31 Blood pressure diastolic 86 mmHg 2013-12-31 MEDICATIONS Unknown Medications RESULTS No Results PROCEDURES Procedure Date Ordered Result Body Site MRI LUMBAR SPINE W/O DYE December 31, 2013 INSTRUCTIONS MEDICATIONS ADMINISTERED No Known Medications [...]
--- OUTSIDE RECORDS SUMMARY | 2020-02-22 17:16 | XMS REPORT ---
Author Author Marion SILVANYA Organization [facility] Address [address] [place] [address] Care Team Providers Care Informatics Nurse Name Role Phone RICARDO JOSE Unavailable PROBLEMS Type Condition ICD9-CM Code ZMT29-UG Code Onset Dates Condition S tatus SNOMED Code Problem Acquired hypothyroidism E03.9 Active 554086088 Problem Gastro-esophageal reflux disease without esophagitis K21.9 Active 690902808 Problem Cervical disc disease M50.90 Active 174547422 Problem Dyspepsia R10.13 Active 833036130 Problem Migraine without aura and without status migrain osus, not intractable G43.009 Active 713646829 ALLERGIES No Information ENCOUNTERS Encounter Location Date Diagnosis [place] [address] [address] Sep, [place] [address] [address] Sep, Cervical disc disease M50.90 [place] [address] [address] Sep, Cervical disc disease M50.90 [place] [address] [address] Aug, Cervical disc disease M50.90 [place] [address] [address] Aug, [place] [address] [address] Jul, Cervical disc disease M50.90 [place] [address] [address] Jun, Cervical disc disease M50.90 [place] [address] [address] May, [facility] [address] [id number] [place] [address] May, Cervical disc disease M50.[address] [facility] [address] [facility] [id number] [address] [place] [address] May, Acute cystitis with hematuri a N30.01 and UTI symptoms R39.9 [facility] [address] [place] [id number] [place] [address] May, [facility] [address] [id number] [place] [address] Apr, Cervical disc disease M50.90 [place] [address] [place] [id number] [place] [address] Apr, Cervical disc disease M50.90 ; Gastro-es ophageal reflux disease without esophagitis K21.9 and Sinus headache R51 [facility] [address] [place] [id number] [place] [address] Apr, [facility] [address] [place] [id number] [place] [address] Apr, Cervical disc disease M50.90 [place] [address] [place] [id number] [place] [address] Mar, [facility] [address] [place] [id number] [place] [address] Mar, Cervical disc disease M50.90 [facility] [address] [id number] [place] [address] Feb, [address] [place] [address] Feb, Cervical disc disease M50.[address] [place] [address] January, [facility] [address] [id number] [place] [address] January, Cervical disc disease M50.90 [place] [address] [address] January, Cervical disc disease M50.90 [facility] [address] [address] Dec, Cervical disc disease M50.90 [facility] [address] [address] Dec, Cervical disc disease M50.90 [facility] [address] [address] Dec, Cervical disc disease M50.90 [facility] [address] [address] Dec, Cervical disc disease M50.90 ; Acquired hypothyroidism E03.9 and Migraine without aura and without status migrainosus, not intractable G43.009 [facility] [address] [address] Nov, [facility] [address] [address] Nov, Cervical disc disease M50.90 [facility] [address] [address] Oct, Cervical disc disease M50.90 [facility] [address] [address] Sep, [facility] [address] [address] Sep, Cervical disc disease M50.90 [facility] [address] [address] Aug, Cervical disc disease M50.90 [facility] [address] [address] Jul, Cervical disc disease M50.90 [facility] [address] [address] Jun, Acute recurrent pansinusitis J01.41 and Cervical disc disease M50.90 [facility] [address] [place] [id number] [place] [address] Jun, Cervical disc disease M50.90 [facility] [address] [place] [id number] [place] [address] May, Cervical disc disease M50.90 [facility] [address] [place] [id number] [place] [address] Apr, Cervical disc disease M50.90 [facility] [address] [address] Mar, Cervical disc disease M50.90 [facility] [address] [address] Mar, [facility] [address] [address] Mar, Cervical disc disease M50.90 [facility] [address] [address] Feb, Cervical disc disease M50.90 [facility] [address] [place] [id number] [place] [address] January, Cervical disc disease M50.90 [facility] [address] [address] Dec, [facility] [address] [place] [id number] [place] [address] Dec, Cervical disc disease M50.90 [facility] [address] [place] [id number] [place] [address] Nov, Cervical disc disease M50.90 [facility] [address] [place] [id number] [place] [address] Nov, Cervical disc disease M50.90 [facility] [address] [place] [id number] [place] [address] Oct, Cervical disc disease M50.90 [facility] [address] [place] [id number] [place] [address] Oct, Cervical disc disease M50.90 and Acute n on-recurrent maxillary sinusitis J01.00 [place] [address] [address] Sep, Cervical disc disease M50.90 [facility] [address] [place] [id number] [address] [place] [address] Sep, [facility] [address] [address] Sep, Fatigue, unspecified type R5 3.83 and Cough R05 [place] [address] [address] Aug, Cervical disc disease M50.90 [facility] [address] [place] [id number] [place] [address] Aug, Sore throat J02.9 ; Canker s ore K12.0 and History of anemia Z86.2 [place] [address] [address] Jul, Cervical disc disease M50.90 [place] [address] [address] Jun, Cervical disc disease M50.90 [place] [address] [address] Jun, Cervical disc disease M50.90 [place] [address] [address] May, Cervical disc disease M50.90 [place] [address] [address] Apr, Cervical disc disease M50.90 [place] [address] [address] Apr, [place] [address] [address] Feb, Cervical disc disease M50.90 [place] [address] [address] January, Cervical disc disease M50.90 [facility] [address] [address] Nov, [facility] [address] [address] Nov, Cervical disc disease M50.[address] [facility] [address] [facility] [id number] [address] [place] [address] Nov, Acute cystitis with hematuri a N30.01 and Dysuria R30.0 [facility] [address] [address] Oct, Cervical disc disease M50.90 and Acute n on-recurrent frontal sinusitis J01.10 [facility] [address] [address] Sep, Neck pain M54.2 [place] [address] [address] Sep, [facility] [address] [address] Aug, Cervical disc disease M50.90 [place] [address] [address] Jul, [place] [address] [address] Jun, [place] [address] [address] May, [place] [address] [address] 08 May, 2016 Screening for diabetes mellitus Z13.1 ; Chronic fatigue R53.82 and Edema, unspecified type R60.9 [facility] [address] [address] Apr, Neck pain M54.2 [facility] [address] [address] Mar, [facility] [address] [id number] [place] [address] Mar, Neck pain M54.2 [facility] [address] [place] [id number] [place] [address] Feb, Cervical disc disease M50.90 [facility] [address] [place] [id number] [place] [address] Feb, Cervical disc disease M50.90 [facility] [address] [place] [id number] [place] [address] January, [facility] [address] [place] [id number] [place] [address] January, [facility] [address] [place] [id number] [place] [address] January, Cervical disc disease M50.90 [facility] [address] [place] [id number] [place] [address] January, [facility] [address] [place] [id number] [place] [address] January, [facility] [address] [place] [id number] [place] [address] Dec, Cervical disc disease M50.90 [facility] [address] [place] [id number] [place] [address] Nov, Cervical disc disease M50.90 [facility] [address] [place] [id number] [place] [address] Oct, Cervical disc disease M50.90 [facility] [address] [id number] [place] [address] Sep, Cervical disc disease M50.90 [facility] [address] [id number] [place] [id number] Aug, Dental caries K02.9 and Encounter for de ntal examination Z01.20 [facility] [address] [id number] [place] [address] Aug, [facility] [address] [place] [id number] [place] [address] 15 Aug, 2015 [facility] [address] [id number] [place] [id number] 08 Aug, 2015 Encounter for dental examination Z01.20 [facility] [address] [place] [id number] [place] [address] 16 Jul, 2015 [facility] [address] [place] [id number] [place] [address] Jun, Sinusitis J32.9 and Cervical disc diseas e M50.90 [facility] [address] [place] [id number] [place] [address] Jun, [facility] [address] [address] 24 May, 2015 [facility] [address] [place] [id number] [place] [address] May, [facility] [address] [address] May, [facility] [address] [place] [id number] [place] [address] May, [facility] [address] [address] Apr, Cervical spondylosis without myelopathy 721.0 [facility] [address] [place] [id number] [place] [address] Mar, [facility] [address] [place] [id number] [place] [address] January, Cervical spondylosis without myelopathy 721.0 [facility] [address] [place] [id number] [place] [address] 28 Dec, 2014 [facility] [address] [place] [id number] [place] [address] 14 Dec, 2014 [facility] [address] [address] 13 Dec, 2014 [facility] [address] [address] Nov, [facility] [address] [id number] [place] [address] Nov, [facility] [address] [id number] [place] [address] Oct, [facility] [address] [id number] [place] [address] Oct, [facility] [address] [id number] [place] [address] Oct, 2014 [facility] [address] [id number] [place] [address] Oct, [facility] [address] [id number] [place] [address] Oct, 2014 [facility] [address] [id number] [place] [address] Oct, [facility] [address] [id number] [place] [address] Oct, 2014 [facility] [address] [id number] [place] [address] Oct, [facility] [address] [id number] [place] [address] Oct, [facility] [address] [id number] [place] [address] Oct, [facility] [address] [id number] [place] [address] Sep, [facility] [address] [id number] [place] [address] Sep, [facility] [address] [place] [id number] [place] [address] Sep, [facility] [address] [id number] [place] [address] Sep, [facility] [address] [place] [id number] [place] [address] Sep, [facility] [address] [id number] [place] [address] Sep, [facility] [address] [id number] [place] [address] Sep, [facility] [address] [id number] [place] [address] Sep, [facility] [address] [id number] [place] [address] Sep, [facility] [address] [id number] [place] [address] Aug, [facility] [address] [id number] [place] [address] Aug, [facility] [address] [id number] [place] [address] Aug, [facility] [address] [id number] [place] [address] Aug, [facility] [address] [id number] [place] [address] Jul, [facility] [address] [id number] [place] [address] Jul, [facility] [address] [id number] [place] [address] Jul, [facility] [address] [id number] [place] [address] Jul, [facility] [address] [id number] [place] [address] Jul, [facility] [address] [id number] [place] [address] Jul, [facility] [address] [id number] [place] [address] Jul, [facility] [address] [id number] [place] [address] Jul, [facility] [address] [id number] [place] [address] 27 Jun, 2014 [facility] [address] [facility] [id number] [place] [address] 27 Jun, 2014 [facility] [address] [facility] [id number] [place] [address] 20 Jun, 2014 [facility] [address] [id number] [place] [address] 20 Jun, 2014 [facility] [address] [id number] [place] [address] 16 Jun, 2014 [facility] [address] [facility] [id number] [place] [address] 15 Jun, 2014 [facility] [address] [id number] [place] [address] 15 Jun, 2014 [facility] [address] [id number] [place] [address] 14 Jun, 2014 [facility] [address] [id number] [place] [address] 14 Jun, 2014 [facility] [address] [id number] [place] [address] 11 Jun, 2014 [facility] [address] [id number] [place] [address] 11 Jun, 2014 [facility] [address] [id number] [place] [address] 24 May, 2013 [facility] [address] [id number] [place] [address] 24 May, 2013 [facility] [address] [id number] [place] [address] 08 May, 2013 [facility] [address] [id number] [place] [address] 02 May, 2013 [facility] [address] [id number] [place] [address] 02 May, 2013 [facility] [address] [id number] [place] [address] Apr, [facility] [address] [id number] [facility] [place] [address] Apr, [facility] [address] [id number] [facility] [place] [address] Apr, [facility] [address] [facility] [id number] [place] [address] Apr, [facility] [address] [id number] [place] [address] Apr, [facility] [address] [facility] [id number] [place] [address] Apr, [facility] [address] [facility] [id number] [facility] [place] [address] Mar, [facility] [address] [id number] [place] [address] Mar, [facility] [address] [id number] [place] [address] Mar, [facility] [address] [id number] [place] [address] Mar, [facility] [address] [facility] [id number] [place] [address] Mar, [facility] [address] [id number] [place] [address] Mar, [facility] [address] [id number] [place] [address] Feb, [facility] [address] [id number] [place] [address] Feb, [facility] [address] [facility] [id number] [place] [address] Feb, [facility] [address] [id number] [place] [address] Feb, [facility] [address] [id number] [place] [address] Feb, [facility] [address] [id number] [place] [address] Feb, [facility] [address] [id number] [place] [address] Feb, [facility] [address] [id number] [place] [address] Feb, [facility] [address] [id number] [place] [address] January, [facility] [address] [id number] [place] [address] January, [facility] [address] [id number] [place] [address] January, [facility] [address] [id number] [place] [address] January, [facility] [address] [id number] [place] [address] January, [facility] [address] [id number] [place] [address] January, [facility] [address] [id number] [place] [address] January, [facility] [address] [id number] [place] [address] January, [facility] [address] [id number] [place] [address] Dec, [facility] [address] [id number] [place] [address] Dec, [facility] [address] [id number] [place] [address] Dec, [facility] [address] [id number] [place] [address] Dec, [facility] [address] [id number] [place] [address] Dec, [facility] [address] [id number] [place] [address] Dec, [facility] [address] [id number] [place] [address] Nov, [facility] [address] [facility] [id number] [facility] [place] [address] Nov, [facility] [address] [id number] [facility] [place] [address] Nov, [facility] [address] [id number] [place] [address] Nov, [facility] [address] [id number] [facility] [place] [address] Nov, [facility] [address] [id number] [facility] [place] [address] Nov, [facility] [address] [id number] [place] [address] Nov, [facility] [address] [id number] [place] [address] Nov, [facility] [address] [id number] [place] [address] Oct, [facility] [address] [id number] [place] [address] Oct, [facility] [address] [id number] [place] [address] Sep, [facility] [address] [id number] [place] [address] Sep, [facility] [address] [id number] [place] [address] Sep, [facility] [address] [id number] [place] [address] Sep, [facility] [address] [id number] [place] [address] Aug, [facility] [address] [id number] [place] [address] Aug, [facility] [address] [id number] [place] [address] Aug, [facility] [address] [id number] [place] [address] Aug, [facility] [address] [id number] [place] [address] Jul, [facility] [address] [id number] [place] [address] Jul, [facility] [address] [id number] [place] [address] Jul, [facility] [address] [facility] [id number] [place] [address] Jul, [facility] [address] [id number] [place] [address] Jul, [facility] [address] [id number] [place] [address] Jul, [facility] [address] [id number] [place] [address] Jul, [facility] [address] [id number] [place] [address] Jul, [facility] [address] [id number] [place] [address] Jul, [facility] [address] [id number] [place] [address] Jul, [facility] [address] [id number] [place] [address] Jul, [facility] [address] [id number] [place] [address] Jul, [facility] [address] [id number] [place] [address] Jun, [facility] [address] [id number] [place] [address] Jun, [facility] [address] [id number] [place] [address] Jun, [facility] [address] [id number] [place] [address] Jun, [facility] [address] [id number] [place] [address] 16 Jun, 2013 [facility] [address] [id number] [place] [address] 14 Jun, 2013 [facility] [address] [id number] [place] [address] 14 Jun, 2013 [facility] [address] [id number] [place] [address] Jun, [facility] [address] [id number] [place] [address] 15 May, 2013 [facility] [address] [id number] [place] [address] May, [facility] [address] [id number] [place] [address] May, [facility] [address] [id number] [place] [address] Apr, [facility] [address] [id number] [place] [address] Apr, [facility] [address] [id number] [place] [address] Mar, [facility] [address] [id number] [place] [address] Mar, [facility] [address] [id number] [place] [address] Feb, [facility] [address] [id number] [place] [address] January, [facility] [address] [id number] [place] [address] January, [facility] [address] [id number] [place] [address] January, [facility] [address] [id number] [place] [address] January, [facility] [address] [id number] [place] [address] January, [facility] [address] [id number] [place] [address] 29 Dec, 2012 [facility] [address] [id number] [place] [address] Dec, [facility] [address] [id number] [place] [address] Dec, [facility] [address] [id number] [place] [address] Nov, [facility] [address] [id number] [place] [address] Oct, [facility] [address] [id number] [place] [address] 18 Oct, 2012 [facility] [address] [id number] [place] [address] Oct, [facility] [address] [id number] [place] [address] Sep, [facility] [address] [id number] [place] [address] Sep, [facility] [address] [id number] [place] [address] 14 Aug, 2012 [facility] [address] [id number] [place] [address] 14 Aug, 2012 [facility] [address] [id number] [place] [address] 11 Aug, 2012 [facility] [address] [id number] [place] [address] 11 Aug, 2012 [facility] [address] [id number] [place] [address] Jul, [facility] [address] [id number] [place] [address] Jul, [facility] [address] [id number] [place] [address] Jul, [facility] [address] [id number] [place] [address] Jul, [facility] [address] [id number] [place] [address] Jul, [facility] [address] [id number] [place] [address] 15 Jun, 2012 [facility] [address] [id number] [place] [address] 15 Jun, 2012 [facility] [address] [id number] [place] [address] Jun, [facility] [address] [id number] [place] [address] Jun, [facility] [address] [id number] [place] [address] May, [facility] [address] [id number] [place] [address] Apr, [facility] [address] [id number] [place] [address] Apr, [facility] [address] [id number] [place] [address] Apr, [facility] [address] [id number] [place] [address] Apr, [facility] [address] [id number] [place] [address] January, [facility] [address] [id number] [place] [address] January, [facility] [address] [id number] [place] [address] Dec, [facility] [address] [id number] [place] [address] Dec, [facility] [address] [id number] [place] [address] Nov, [facility] [address] [id number] [place] [address] Nov, [facility] [address] [id number] [place] [address] Nov, [facility] [address] [id number] [place] [address] Nov, [facility] [address] [id number] [place] [address] Oct, [facility] [address] [id number] [place] [address] Oct, [facility] [address] [id number] [place] [address] Oct, [facility] [address] [id number] [place] [address] Sep, [facility] [address] [id number] [place] [address] Sep, [facility] [address] [id number] [place] [address] Aug, [facility] [address] [id number] [place] [address] Aug, [facility] [address] [id number] [place] [address] Jul, [facility] [address] [id number] [place] [address] Jul, [facility] [address] [id number] [place] [address] Jul, [facility] [address] [id number] [place] [address] Jun, [facility] [address] [id number] [place] [address] 24 Jun, 2011 [facility] [address] [id number] [place] [address] Jun, [facility] [address] [id number] [place] [address] Jun, [facility] [address] [id number] [place] [address] 10 Jun, 2011 [facility] [address] [id number] [place] [address] 10 Jun, 2011 [facility] [address] [id number] [place] [address] Aug, [facility] [address] [id number] [place] [address] Aug, [facility] [address] [id number] [place] [address] Aug, [facility] [address] [id number] [place] [address] Jul, [facility] [address] [id number] [place] [address] Jul, [facility] [address] [id number] [place] [address] Jul, [facility] [address] [id number] [place] [address] Jul, [facility] [address] [id number] [place] [address] Jul, [facility] [address] [id number] [place] [address] Jul, [facility] [address] [id number] [place] [address] Jun, [facility] [address] [id number] [place] [address] Apr, [facility] [address] [id number] [place] [address] Feb, [facility] [id number] [place] [address] 10 Oct, 2009 [facility] [address] [id number] [place] [address] Sep, [facility] [address] [id number] [place] [address] Aug, [facility] [address] [id number] [place] [address] Aug, [facility] [address] [id number] [place] [address] Aug, [facility] [address] [id number] [place] [address] Jul, [facility] [address] [id number] [place] [address] Jun, IMMUNIZATIONS No Known Immunizations SOCIAL HISTORY [...]
--- OUTSIDE RECORDS SUMMARY | 2020-02-22 17:17 | XMS REPORT ---
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 [employer] Technician Name Role Phone SHABNAM CORREA Unavailable PROBLEMS Type Condition ICD9-CM Code [id number] Code Onset Dates Condition S tatus SNOMED Code Problem Acquired hypothyroidism E03.9 Active 872437198 Problem Gastro-esophageal reflux disease without esophagitis K21.9 Active 524253263 Problem Cervical disc disease M50.90 Active 757707344 Problem Dyspepsia R10.13 Active 291644443 Problem Migraine without aura and without status migrain osus, not intractable G43.009 Active 307340423 ALLERGIES No Information ENCOUNTERS Encounter Location Date Diagnosis [facility] [address] [address] Aug, Cervical disc disease M50.90 [facility] [address] [address] Aug, [facility] [address] [address] Jul, Cervical disc disease M50.90 [facility] [address] [address] Jun, Cervical disc disease M50.90 [facility] [address] [address] May, [facility] [address] [address] May, Cervical disc disease M50.90 [facility] [address] [facility] [id number] [address] [address] May, Acute cystitis with hematuri a N30.01 and UTI symptoms R39.9 [facility] [address] [place] [address] May, [facility] [address] [address] Apr, Cervical disc disease M50.90 [facility] [id number] [place] [address] Apr, Cervical disc disease M50.90 ; Gastro-es ophageal reflux disease without esophagitis K21.9 and Sinus headache R51 [facility] [id number] [place] [address] Apr, [facility] [address] [address] Apr, Cervical disc disease M50.90 [facility] [id number] [place] [address] Mar, [facility] [id number] [place] [address] Mar, Cervical disc disease M50.90 [facility] [id number] [place] [address] Feb, [address] [place] [address] Feb, Cervical disc disease M50.[address] [place] [address] January, [facility] [id number] [place] [address] January, Cervical disc disease M50.90 [facility] [id number] [place] [address] January, Cervical disc disease M50.90 [facility] [id number] [place] [address] Dec, Cervical disc disease M50.90 [facility] [id number] [place] [address] Dec, Cervical disc disease M50.90 [facility] [address] [address] Dec, Cervical disc disease M50.90 [facility] [address] [address] Dec, Cervical disc disease M50.90 ; Acquired hypothyroidism E03.9 and Migraine without aura and without status migrainosus, not intractable G43.009 [place] [address] [address] Nov, [facility] [address] [address] Nov, Cervical disc disease M50.90 [place] [address] [address] Oct, Cervical disc disease M50.90 [place] [address] [address] Sep, [facility] [address] [address] Sep, Cervical disc disease M50.90 [place] [address] [address] Aug, Cervical disc disease M50.90 [place] [address] [address] Jul, Cervical disc disease M50.90 [place] [address] [address] Jun, Acute recurrent pansinusitis J01.41 and Cervical disc disease M50.90 [facility] [address] [address] Jun, Cervical disc disease M50.90 [place] [address] [address] May, Cervical disc disease M50.90 [facility] [address] [address] Apr, Cervical disc disease M50.90 [place] [id number] [place] [address] Mar, Cervical disc disease M50.90 [facility] [address] [address] Mar, [facility] [id number] [place] [address] Mar, Cervical disc disease M50.90 [facility] [id number] [place] [address] Feb, Cervical disc disease M50.90 [facility] [id number] [place] [address] January, Cervical disc disease M50.90 [facility] [address] [address] Dec, [facility] [address] [address] Dec, Cervical disc disease M50.90 [facility] [id number] [place] [address] Nov, Cervical disc disease M50.90 [facility] [address] [address] Nov, Cervical disc disease M50.90 [facility] [id number] [place] [address] Oct, Cervical disc disease M50.90 [facility] [address] [address] Oct, Cervical disc disease M50.90 and Acute n on-recurrent maxillary sinusitis J01.00 [facility] [id number] [place] [address] Sep, Cervical disc disease M50.90 [facility] [address] [facility] [id number] [address] [place] [address] Sep, [facility] [address] [facility] [id number] [address] [place] [address] Sep, Fatigue, unspecified type R5 3.83 and Cough R05 [facility] [address] [address] Aug, Cervical disc disease M50.90 [facility] [address] [facility] [id number] [address] [address] Aug, Sore throat J02.9 ; Canker s ore K12.0 and History of anemia Z86.2 [facility] [address] [address] Jul, Cervical disc disease M50.90 [place] [address] [address] Jun, Cervical disc disease M50.90 [place] [address] [address] Jun, Cervical disc disease M50.90 [place] [address] [address] May, Cervical disc disease M50.90 [place] [address] [address] Apr, Cervical disc disease M50.90 [facility] [address] [address] Apr, [place] [address] [address] Feb, Cervical disc disease M50.90 [facility] [address] [address] January, Cervical disc disease M50.90 [place] [address] [address] Nov, [place] [address] [address] Nov, Cervical disc disease M50.90 [facility] [address] [facility] [id number] [address] [place] [address] Nov, Acute cystitis with hematuri a N30.01 and Dysuria R30.0 [facility] [address] [address] Oct, Cervical disc disease M50.90 and Acute n on-recurrent frontal sinusitis J01.10 [facility] [address] [address] Sep, Neck pain M54.2 [facility] [address] [address] Sep, [facility] [address] [address] Aug, Cervical disc disease M50.90 [place] [address] [address] Jul, [place] [address] [address] Jun, [facility] [address] [address] May, [place] [address] [address] May, Screening for diabetes mellitus Z13.1 ; Chronic fatigue R53.82 and Edema, unspecified type R60.9 [place] [address] [address] Apr, Neck pain M54.2 [facility] [address] [address] Mar, [facility] [address] [address] Mar, Neck pain M54.2 [place] [address] [address] Feb, Cervical disc disease M50.90 [facility] [address] [address] Feb, Cervical disc disease M50.90 [place] [id number] [place] [address] January, [facility] [address] [address] January, [facility] [address] [address] January, Cervical disc disease M50.90 [facility] [address] [address] January, [facility] [address] [address] January, [facility] [address] [address] Dec, Cervical disc disease M50.90 [facility] [address] [address] Nov, Cervical disc disease M50.90 [facility] [address] [address] Oct, Cervical disc disease M50.90 [facility] [address] [address] Sep, Cervical disc disease M50.90 [facility] [address] [id number] Aug, Dental caries K02.9 and Encounter for de ntal examination Z01.20 [facility] [address] [address] Aug, [facility] [address] [address] Aug, [facility] [address] [id number] Aug, Encounter for dental examination Z01.20 [facility] [address] [address] Jul, [facility] [address] [address] Jun, Sinusitis J32.9 and Cervical disc diseas e M50.90 [facility] [id number] [place] [address] Jun, [facility] [id number] [place] [address] 24 May, 2015 [facility] [id number] [place] [address] May, [facility] [id number] [place] [address] May, [facility] [id number] [place] [address] May, [facility] [id number] [place] [address] Apr, Cervical spondylosis without myelopathy 721.0 [facility] [id number] [place] [address] Mar, [facility] [id number] [place] [address] January, Cervical spondylosis without myelopathy 721.0 [facility] [id number] [place] [address] 28 Dec, 2014 [facility] [id number] [place] [address] 14 Dec, 2014 [facility] [id number] [place] [address] Dec, [facility] [id number] [place] [address] Nov, [facility] [id number] [place] [address] Nov, [facility] [id number] [place] [address] Oct, [facility] [id number] [place] [address] Oct, [facility] [id number] [place] [address] Oct, [facility] [address] [facility] [id number] [place] [address] Oct, [facility] [address] [id number] [place] [address] Oct, [facility] [address] [id number] [place] [address] Oct, [facility] [address] [id number] [place] [address] Oct, [facility] [address] [id number] [place] [address] Oct, [facility] [address] [id number] [place] [address] Oct, [facility] [address] [id number] [place] [address] Oct, [facility] [address] [id number] [place] [address] Sep, [facility] [address] [id number] [place] [address] Sep, [facility] [address] [id number] [place] [address] Sep, [facility] [address] [id number] [place] [address] Sep, [facility] [address] [id number] [place] [address] Sep, [facility] [address] [id number] [place] [address] Sep, [facility] [address] [id number] [place] [address] Sep, [facility] [address] [id number] [place] [address] Sep, [facility] [address] [id number] [place] [address] Sep, [facility] [address] [facility] [id number] [place] [address] Aug, [facility] [address] [id number] [place] [address] Aug, [facility] [address] [id number] [place] [address] Aug, [facility] [address] [id number] [place] [address] Aug, [facility] [address] [id number] [place] [address] Jul, [facility] [address] [id number] [place] [address] Jul, [facility] [address] [id number] [place] [address] Jul, [facility] [address] [id number] [place] [address] Jul, [facility] [address] [id number] [place] [address] Jul, [facility] [address] [id number] [place] [address] Jul, [facility] [address] [id number] [place] [address] Jul, [facility] [address] [id number] [place] [address] Jul, [facility] [address] [id number] [place] [address] Jun, [facility] [address] [id number] [place] [address] Jun, [facility] [address] [id number] [place] [address] Jun, [facility] [address] [id number] [place] [address] Jun, [facility] [address] [id number] [place] [address] 16 Jun, 2014 [facility] [address] [facility] [id number] [place] [address] 15 Jun, 2014 [facility] [address] [id number] [place] [address] 15 Jun, 2014 [facility] [address] [id number] [place] [address] 14 Jun, 2014 [facility] [address] [id number] [place] [address] 14 Jun, 2014 [facility] [address] [facility] [id number] [place] [address] Jun, [facility] [address] [id number] [place] [address] Jun, [facility] [address] [id number] [place] [address] 24 May, 2014 [facility] [address] [id number] [place] [address] 24 May, 2014 [facility] [address] [id number] [place] [address] 08 May, 2014 [facility] [address] [id number] [place] [address] May, [facility] [address] [id number] [place] [address] May, [facility] [address] [id number] [place] [address] Apr, [facility] [address] [id number] [place] [address] Apr, [facility] [address] [id number] [place] [address] Apr, [facility] [address] [id number] [place] [address] Apr, [facility] [address] [id number] [place] [address] Apr, [facility] [address] [facility] [id number] [place] [address] Apr, [facility] [address] [id number] [place] [address] Mar, [facility] [address] [id number] [place] [address] Mar, [facility] [address] [id number] [place] [address] Mar, [facility] [address] [facility] [id number] [place] [address] Mar, [facility] [address] [id number] [place] [address] Mar, [facility] [address] [id number] [place] [address] Mar, [facility] [address] [id number] [place] [address] Feb, [facility] [address] [id number] [place] [address] Feb, [facility] [address] [id number] [place] [address] Feb, [facility] [address] [id number] [place] [address] Feb, [facility] [address] [id number] [place] [address] Feb, [facility] [address] [id number] [place] [address] Feb, [facility] [address] [id number] [place] [address] Feb, [facility] [address] [id number] [place] [address] Feb, [facility] [address] [id number] [place] [address] January, [facility] [address] [id number] [place] [address] January, [facility] [address] [id number] [place] [address] January, [facility] [address] [facility] [id number] [place] [address] January, [facility] [address] [id number] [place] [address] January, [facility] [address] [id number] [place] [address] January, [facility] [address] [facility] [id number] [place] [address] January, [facility] [address] [id number] [place] [address] January, [facility] [address] [id number] [place] [address] Dec, [facility] [address] [id number] [place] [address] Dec, [facility] [address] [id number] [place] [address] Dec, [facility] [address] [id number] [place] [address] Dec, [facility] [address] [id number] [place] [address] Dec, [facility] [address] [id number] [place] [address] Dec, [facility] [address] [id number] [place] [address] Nov, [facility] [id number] [place] [address] Nov, [facility] [address] [id number] [place] [address] Nov, [facility] [address] [id number] [place] [address] Nov, [facility] [address] [id number] [place] [address] Nov, [facility] [address] [id number] [place] [address] Nov, [facility] [address] [id number] [place] [address] Nov, [facility] [address] [id number] [place] [address] Nov, [facility] [address] [id number] [place] [address] Oct, [facility] [address] [id number] [place] [address] Oct, [facility] [address] [id number] [place] [address] Sep, [facility] [address] [id number] [place] [address] Sep, [facility] [address] [id number] [place] [address] Sep, [facility] [address] [id number] [place] [address] Sep, [facility] [address] [id number] [place] [address] Aug, [facility] [address] [id number] [place] [address] Aug, [facility] [address] [id number] [place] [address] Aug, [facility] [address] [id number] [place] [address] Aug, [facility] [id number] [place] [address] Jul, [facility] [address] [id number] [place] [address] Jul, [facility] [address] [id number] [place] [address] Jul, [facility] [address] [id number] [place] [address] Jul, [facility] [address] [id number] [place] [address] Jul, [facility] [address] [id number] [place] [address] Jul, [facility] [address] [id number] [place] [address] Jul, [facility] [address] [id number] [place] [address] Jul, [facility] [address] [id number] [place] [address] Jul, [facility] [address] [id number] [place] [address] Jul, [facility] [address] [id number] [place] [address] Jul, [facility] [address] [id number] [place] [address] Jul, [facility] [address] [id number] [place] [address] Jun, [facility] [address] [id number] [place] [address] Jun, [facility] [address] [id number] [place] [address] Jun, [facility] [address] [id number] [place] [address] Jun, [facility] [address] [id number] [place] [address] 16 Jun, 2013 [facility] [address] [id number] [place] [address] 14 Jun, 2013 [facility] [address] [id number] [place] [address] 14 Jun, 2013 [facility] [address] [id number] [place] [address] Jun, [facility] [address] [id number] [place] [address] May, [facility] [address] [id number] [place] [address] May, [facility] [address] [id number] [place] [address] May, [facility] [address] [id number] [place] [address] Apr, [facility] [address] [id number] [place] [address] Apr, [facility] [address] [id number] [place] [address] Mar, [facility] [address] [id number] [place] [address] Mar, [facility] [address] [id number] [place] [address] Feb, [facility] [address] [id number] [place] [address] January, [facility] [address] [id number] [place] [address] January, [facility] [address] [id number] [place] [address] January, [facility] [address] [id number] [place] [address] January, [facility] [address] [id number] [place] [address] January, [facility] [address] [id number] [place] [address] Dec, [facility] [address] [id number] [place] [address] Dec, [facility] [address] [id number] [place] [address] Dec, [facility] [address] [id number] [place] [address] Nov, [facility] [address] [id number] [place] [address] Oct, [facility] [address] [id number] [place] [address] Oct, [facility] [address] [id number] [place] [address] 15 Oct, 2012 [facility] [address] [id number] [place] [address] Sep, [facility] [address] [id number] [place] [address] 16 Sep, 2012 [facility] [address] [id number] [place] [address] 14 Aug, 2012 [facility] [id number] [place] [address] 14 Aug, 2012 [facility] [address] [id number] [place] [address] Aug, [facility] [address] [id number] [place] [address] Aug, [facility] [address] [id number] [place] [address] Jul, [facility] [address] [id number] [place] [address] Jul, [facility] [address] [id number] [place] [address] Jul, [facility] [address] [id number] [place] [address] Jul, [facility] [id number] [place] [address] Jul, [facility] [address] [id number] [place] [address] 15 Jun, 2012 [facility] [id number] [place] [address] 15 Jun, 2012 [facility] [address] [id number] [place] [address] 10 Jun, 2012 [facility] [address] [id number] [place] [address] 10 Jun, 2012 [facility] [address] [id number] [place] [address] 10 May, 2012 [facility] [address] [id number] [place] [address] Apr, [facility] [address] [id number] [place] [address] Apr, [facility] [address] [id number] [place] [address] Apr, [facility] [address] [id number] [place] [address] Apr, [facility] [address] [id number] [place] [address] January, [facility] [address] [id number] [place] [address] January, [facility] [address] [id number] [place] [address] Dec, [facility] [address] [id number] [place] [address] Dec, [facility] [address] [id number] [place] [address] Nov, [facility] [address] [id number] [place] [address] Nov, [facility] [address] [id number] [place] [address] Nov, [facility] [address] [id number] [place] [address] Nov, [facility] [address] [id number] [place] [address] Oct, [facility] [address] [id number] [place] [address] Oct, [facility] [address] [id number] [place] [address] Oct, [facility] [address] [id number] [place] [address] Sep, [facility] [address] [id number] [place] [address] Sep, [facility] [address] [id number] [place] [address] Aug, [facility] [address] [id number] [place] [address] Aug, [facility] [address] [id number] [place] [address] Jul, [facility] [address] [id number] [place] [address] Jul, [facility] [address] [id number] [place] [address] Jul, [facility] [address] [id number] [place] [address] Jun, [facility] [address] [id number] [place] [address] Jun, [facility] [address] [id number] [place] [address] Jun, [facility] [address] [id number] [place] [address] Jun, [facility] [address] [id number] [place] [address] Jun, [facility] [address] [id number] [place] [address] Jun, [facility] [address] [id number] [place] [address] Aug, [facility] [address] [id number] [place] [address] Aug, [facility] [address] [id number] [place] [address] 08 Aug, 2010 [facility] [address] [id number] [place] [address] 29 Jul, 2010 [facility] [address] [id number] [place] [address] Jul, [facility] [address] [id number] [place] [address] Jul, [facility] [address] [id number] [place] [address] 15 Jul, 2010 [facility] [address] [id number] [place] [address] 15 Jul, 2010 [facility] [address] [id number] [place] [address] Jul, [facility] [id number] [place] [address] Jun, [facility] [address] [id number] [place] [address] Apr, [facility] [address] [id number] [place] [address] Feb, [facility] [address] [id number] [place] [address] 10 Oct, 2009 [facility] [address] [id number] [place] [address] Sep, [facility] [address] [id number] [place] [address] Aug, [facility] [address] [id number] [place] [address] Aug, [facility] [id number] [place] [address] 05 Aug, 2009 [facility] [address] [id number] [place] [address] Jul, [facility] [id number] [place] [address] Jun, IMMUNIZATIONS No Known Immunizations SOCIAL HISTORY [...]
--- OUTSIDE RECORDS SUMMARY | 2020-02-22 17:17 | XMS REPORT ---
Author Author Marion CORREA Organization [facility] Address [address] [place] [address] Care Team Providers Care Catering Service Manager Name Role Phone SHABNAM CORREA Unavailable PROBLEMS Type Condition ICD9-CM Code QXW30-DT Code Onset Dates Condition S tatus SNOMED Code Problem Acquired hypothyroidism E03.9 Active 158180920 Problem Gastro-esophageal reflux disease without esophagitis K21.9 Active 118642614 Problem Cervical disc disease M50.90 Active 860695735 Problem Dyspepsia R10.13 Active 476878922 Problem Migraine without aura and without status migrain osus, not intractable G43.009 Active [id number] ALLERGIES No Information ENCOUNTERS Encounter Location Date Diagnosis [facility] [address] [address] Aug, Cervical disc disease M50.90 [facility] [address] [address] Aug, [facility] [address] [address] Jul, Cervical disc disease M50.90 [facility] [address] [address] Jun, Cervical disc disease M50.90 [facility] [address] [address] May, [facility] [address] [address] May, Cervical disc disease M50.90 [facility] [address] [facility] [id number] [place] [address] May, Acute cystitis with hematuri a N30.01 and UTI symptoms R39.9 [facility] [address] [place] [address] May, [facility] [address] [address] Apr, Cervical disc disease M50.90 [facility] [id number] [place] [address] Apr, Cervical disc disease M50.90 ; Gastro-es ophageal reflux disease without esophagitis K21.9 and Sinus headache R51 [facility] [id number] [place] [address] Apr, [facility] [address] [address] Apr, Cervical disc disease M50.90 [facility] [id number] [place] [address] Mar, [facility] [id number] [place] [address] Mar, Cervical disc disease M50.90 [facility] [id number] [place] [address] Feb, [address] [place] [address] Feb, Cervical disc disease M50.[address] [place] [address] January, [facility] [id number] [place] [address] January, Cervical disc disease M50.90 [facility] [id number] [place] [address] January, Cervical disc disease M50.90 [facility] [id number] [place] [address] Dec, Cervical disc disease M50.90 [facility] [id number] [place] [address] Dec, Cervical disc disease M50.90 [facility] [address] [address] Dec, Cervical disc disease M50.90 [facility] [address] [address] Dec, Cervical disc disease M50.90 ; Acquired hypothyroidism E03.9 and Migraine without aura and without status migrainosus, not intractable G43.009 [place] [address] [address] Nov, [facility] [address] [address] Nov, Cervical disc disease M50.90 [place] [address] [address] Oct, Cervical disc disease M50.90 [place] [address] [address] Sep, [facility] [address] [address] Sep, Cervical disc disease M50.90 [place] [address] [address] Aug, Cervical disc disease M50.90 [place] [address] [address] Jul, Cervical disc disease M50.90 [place] [address] [address] Jun, Acute recurrent pansinusitis J01.41 and Cervical disc disease M50.90 [facility] [address] [address] Jun, Cervical disc disease M50.90 [place] [address] [address] May, Cervical disc disease M50.90 [facility] [address] [address] Apr, Cervical disc disease M50.90 [place] [id number] [place] [address] Mar, Cervical disc disease M50.90 [facility] [address] [address] Mar, [facility] [id number] [place] [address] Mar, Cervical disc disease M50.90 [facility] [id number] [place] [address] Feb, Cervical disc disease M50.90 [facility] [id number] [place] [address] January, Cervical disc disease M50.90 [facility] [address] [address] Dec, [facility] [address] [address] Dec, Cervical disc disease M50.90 [facility] [id number] [place] [address] Nov, Cervical disc disease M50.90 [facility] [address] [address] Nov, Cervical disc disease M50.90 [facility] [id number] [place] [address] Oct, Cervical disc disease M50.90 [facility] [address] [address] Oct, Cervical disc disease M50.90 and Acute n on-recurrent maxillary sinusitis J01.00 [facility] [id number] [place] [address] Sep, Cervical disc disease M50.90 [facility] [address] [facility] [id number] [address] [place] [address] Sep, [facility] [address] [facility] [id number] [address] [place] [address] Sep, Fatigue, unspecified type R5 3.83 and Cough R05 [facility] [address] [address] Aug, Cervical disc disease M50.90 [facility] [address] [facility] [id number] [place] [address] Aug, Sore throat J02.9 ; Canker s ore K12.0 and History of anemia Z86.2 [facility] [address] [address] Jul, Cervical disc disease M50.90 [place] [address] [address] Jun, Cervical disc disease M50.90 [place] [address] [address] Jun, Cervical disc disease M50.90 [place] [address] [address] May, Cervical disc disease M50.90 [place] [address] [address] Apr, Cervical disc disease M50.90 [facility] [address] [address] Apr, [place] [address] [address] Feb, Cervical disc disease M50.90 [facility] [address] [address] January, Cervical disc disease M50.90 [place] [address] [address] Nov, [place] [address] [address] Nov, Cervical disc disease M50.90 [facility] [address] [facility] [id number] [address] [place] [address] Nov, Acute cystitis with hematuri a N30.01 and Dysuria R30.0 [facility] [address] [address] Oct, Cervical disc disease M50.90 and Acute n on-recurrent frontal sinusitis J01.10 [facility] [address] [address] Sep, Neck pain M54.2 [facility] [address] [address] Sep, [facility] [address] [address] Aug, Cervical disc disease M50.90 [place] [address] [address] Jul, [place] [address] [address] Jun, [facility] [address] [address] May, [place] [address] [address] May, Screening for diabetes mellitus Z13.1 ; Chronic fatigue R53.82 and Edema, unspecified type R60.9 [place] [address] [address] Apr, Neck pain M54.2 [facility] [address] [address] Mar, [facility] [address] [address] Mar, Neck pain M54.2 [place] [address] [address] Feb, Cervical disc disease M50.90 [facility] [address] [address] Feb, Cervical disc disease M50.90 [place] [id number] [place] [address] January, [facility] [address] [address] January, [facility] [address] [address] January, Cervical disc disease M50.90 [facility] [address] [address] January, [facility] [address] [address] January, [facility] [address] [address] Dec, Cervical disc disease M50.90 [facility] [address] [address] Nov, Cervical disc disease M50.90 [facility] [address] [address] Oct, Cervical disc disease M50.90 [facility] [address] [address] Sep, Cervical disc disease M50.90 [facility] [address] [id number] Aug, Dental caries K02.9 and Encounter for de ntal examination Z01.20 [facility] [address] [address] Aug, [facility] [address] [address] Aug, [facility] [address] [id number] Aug, Encounter for dental examination Z01.20 [facility] [address] [address] Jul, [facility] [address] [address] Jun, Sinusitis J32.9 and Cervical disc diseas e M50.90 [facility] [id number] [place] [address] Jun, [facility] [id number] [place] [address] 24 May, 2015 [facility] [id number] [place] [address] May, [facility] [id number] [place] [address] May, [facility] [id number] [place] [address] May, [facility] [id number] [place] [address] Apr, Cervical spondylosis without myelopathy 721.0 [facility] [id number] [place] [address] Mar, [facility] [id number] [place] [address] January, Cervical spondylosis without myelopathy 721.0 [facility] [id number] [place] [address] 28 Dec, 2014 [facility] [id number] [place] [address] 14 Dec, 2014 [facility] [id number] [place] [address] Dec, [facility] [id number] [place] [address] Nov, [facility] [id number] [place] [address] Nov, [facility] [id number] [place] [address] Oct, [facility] [id number] [place] [address] Oct, [facility] [id number] [place] [address] Oct, [facility] [address] [facility] [id number] [place] [address] Oct, [facility] [address] [id number] [place] [address] Oct, [facility] [address] [id number] [place] [address] Oct, [facility] [address] [id number] [place] [address] Oct, [facility] [address] [id number] [place] [address] Oct, [facility] [address] [id number] [place] [address] Oct, [facility] [address] [id number] [place] [address] Oct, [facility] [address] [id number] [place] [address] Sep, [facility] [address] [id number] [place] [address] Sep, [facility] [address] [id number] [place] [address] Sep, [facility] [address] [id number] [place] [address] Sep, [facility] [address] [id number] [place] [address] Sep, [facility] [address] [id number] [place] [address] Sep, [facility] [address] [id number] [place] [address] Sep, [facility] [address] [id number] [place] [address] Sep, [facility] [address] [id number] [place] [address] Sep, [facility] [address] [facility] [id number] [place] [address] Aug, [facility] [address] [id number] [place] [address] Aug, [facility] [address] [id number] [place] [address] Aug, [facility] [address] [id number] [place] [address] Aug, [facility] [address] [id number] [place] [address] Jul, [facility] [address] [id number] [place] [address] Jul, [facility] [address] [id number] [place] [address] Jul, [facility] [address] [id number] [place] [address] Jul, [facility] [address] [id number] [place] [address] Jul, [facility] [address] [id number] [place] [address] Jul, [facility] [address] [id number] [place] [address] Jul, [facility] [address] [id number] [place] [address] Jul, [facility] [address] [id number] [place] [address] Jun, [facility] [address] [id number] [place] [address] Jun, [facility] [address] [id number] [place] [address] Jun, [facility] [address] [id number] [place] [address] Jun, [facility] [address] [id number] [place] [address] 16 Jun, 2014 [facility] [address] [facility] [id number] [place] [address] 15 Jun, 2014 [facility] [address] [id number] [place] [address] 15 Jun, 2014 [facility] [address] [id number] [place] [address] 14 Jun, 2014 [facility] [address] [id number] [place] [address] 14 Jun, 2014 [facility] [address] [facility] [id number] [place] [address] Jun, [facility] [address] [id number] [place] [address] Jun, [facility] [address] [id number] [place] [address] 24 May, 2014 [facility] [address] [id number] [place] [address] 24 May, 2014 [facility] [address] [id number] [place] [address] 08 May, 2014 [facility] [address] [id number] [place] [address] May, [facility] [address] [id number] [place] [address] May, [facility] [address] [id number] [place] [address] Apr, [facility] [address] [id number] [place] [address] Apr, [facility] [address] [id number] [place] [address] Apr, [facility] [address] [id number] [place] [address] Apr, [facility] [address] [id number] [place] [address] Apr, [facility] [address] [facility] [id number] [place] [address] Apr, [facility] [address] [id number] [place] [address] Mar, [facility] [address] [id number] [place] [address] Mar, [facility] [address] [id number] [place] [address] Mar, [facility] [address] [facility] [id number] [place] [address] Mar, [facility] [address] [id number] [place] [address] Mar, [facility] [address] [id number] [place] [address] Mar, [facility] [address] [id number] [place] [address] Feb, [facility] [address] [id number] [place] [address] Feb, [facility] [address] [id number] [place] [address] Feb, [facility] [address] [id number] [place] [address] Feb, [facility] [address] [id number] [place] [address] Feb, [facility] [address] [id number] [place] [address] Feb, [facility] [address] [id number] [place] [address] Feb, [facility] [address] [id number] [place] [address] Feb, [facility] [address] [id number] [place] [address] January, [facility] [address] [id number] [place] [address] January, [facility] [address] [id number] [place] [address] January, [facility] [address] [facility] [id number] [place] [address] January, [facility] [address] [id number] [place] [address] January, [facility] [address] [id number] [place] [address] January, [facility] [address] [facility] [id number] [place] [address] January, [facility] [address] [id number] [place] [address] January, [facility] [address] [id number] [place] [address] Dec, [facility] [address] [id number] [place] [address] Dec, [facility] [address] [id number] [place] [address] Dec, [facility] [address] [id number] [place] [address] Dec, [facility] [address] [facility] [id number] [place] [address] Dec, [facility] [address] [id number] [place] [address] Dec, [facility] [address] [id number] [place] [address] Nov, [facility] [address] [id number] [place] [address] Nov, [facility] [address] [facility] [id number] [place] [address] Nov, [facility] [address] [id number] [place] [address] Nov, [facility] [address] [id number] [place] [address] Nov, [facility] [address] [id number] [place] [address] Nov, [facility] [address] [id number] [place] [address] Nov, [facility] [address] [id number] [place] [address] Nov, [facility] [address] [id number] [place] [address] Oct, [facility] [address] [facility] [id number] [place] [address] Oct, [facility] [address] [id number] [place] [address] Sep, [facility] [address] [facility] [id number] [place] [address] Sep, [facility] [address] [id number] [place] [address] Sep, [facility] [address] [id number] [place] [address] Sep, [facility] [address] [facility] [id number] [place] [address] Aug, [facility] [address] [id number] [place] [address] Aug, [facility] [address] [id number] [place] [address] Aug, [facility] [address] [id number] [place] [address] Aug, [facility] [id number] [place] [address] Jul, [facility] [address] [id number] [place] [address] Jul, [facility] [address] [id number] [place] [address] Jul, [facility] [address] [id number] [place] [address] Jul, [facility] [address] [id number] [place] [address] Jul, [facility] [address] [id number] [place] [address] Jul, [facility] [address] [id number] [place] [address] Jul, [facility] [address] [id number] [place] [address] Jul, [facility] [address] [facility] [id number] [place] [address] Jul, [facility] [address] [facility] [id number] [place] [address] Jul, [facility] [address] [facility] [id number] [place] [address] Jul, [facility] [address] [facility] [id number] [place] [address] Jul, [facility] [address] [facility] [id number] [place] [address] Jun, [facility] [address] [facility] [id number] [place] [address] Jun, [facility] [address] [facility] [id number] [place] [address] Jun, [facility] [address] [facility] [id number] [place] [address] Jun, [facility] [address] [id number] [place] [address] 16 Jun, 2013 [facility] [address] [id number] [place] [address] 14 Jun, 2013 [facility] [address] [facility] [id number] [place] [address] 14 Jun, 2013 [facility] [address] [id number] [place] [address] Jun, [facility] [address] [id number] [place] [address] May, [facility] [address] [facility] [id number] [place] [address] May, [facility] [address] [id number] [place] [address] May, [facility] [address] [id number] [place] [address] Apr, [facility] [address] [id number] [place] [address] Apr, [facility] [address] [id number] [place] [address] Mar, [facility] [address] [id number] [place] [address] Mar, [facility] [address] [id number] [place] [address] Feb, [facility] [address] [id number] [place] [address] January, [facility] [address] [id number] [place] [address] January, [facility] [address] [id number] [place] [address] January, [facility] [address] [id number] [place] [address] January, [facility] [address] [id number] [place] [address] January, [facility] [address] [id number] [place] [address] Dec, [facility] [address] [id number] [place] [address] Dec, [facility] [address] [id number] [place] [address] Dec, [facility] [address] [id number] [place] [address] Nov, [facility] [address] [id number] [place] [address] Oct, [facility] [address] [id number] [place] [address] Oct, [facility] [address] [id number] [place] [address] 15 Oct, 2012 [facility] [address] [id number] [place] [address] Sep, [facility] [address] [id number] [place] [address] 16 Sep, 2012 [facility] [address] [id number] [place] [address] 14 Aug, 2012 [facility] [id number] [place] [address] 14 Aug, 2012 [facility] [address] [id number] [place] [address] Aug, [facility] [address] [id number] [place] [address] Aug, [facility] [address] [id number] [place] [address] Jul, [facility] [address] [id number] [place] [address] Jul, [facility] [address] [id number] [place] [address] Jul, [facility] [address] [id number] [place] [address] Jul, [facility] [id number] [place] [address] Jul, [facility] [address] [id number] [place] [address] 15 Jun, 2012 [facility] [id number] [place] [address] 15 Jun, 2012 [facility] [address] [id number] [place] [address] 10 Jun, 2012 [facility] [address] [id number] [place] [address] 10 Jun, 2012 [facility] [address] [id number] [place] [address] 10 May, 2012 [facility] [address] [id number] [place] [address] Apr, [facility] [address] [id number] [place] [address] Apr, [facility] [address] [id number] [place] [address] Apr, [facility] [address] [id number] [place] [address] Apr, [facility] [address] [id number] [place] [address] January, [facility] [address] [id number] [place] [address] January, [facility] [address] [id number] [place] [address] Dec, [facility] [address] [id number] [place] [address] Dec, [facility] [address] [id number] [place] [address] Nov, [facility] [address] [id number] [place] [address] Nov, [facility] [address] [id number] [place] [address] Nov, [facility] [address] [id number] [place] [address] Nov, [facility] [address] [id number] [place] [address] Oct, [facility] [address] [id number] [place] [address] Oct, [facility] [address] [id number] [place] [address] Oct, [facility] [address] [id number] [place] [address] Sep, [facility] [address] [id number] [place] [address] Sep, [facility] [address] [id number] [place] [address] Aug, [facility] [address] [id number] [place] [address] Aug, [facility] [address] [id number] [place] [address] Jul, [facility] [address] [id number] [place] [address] Jul, [facility] [address] [id number] [place] [address] Jul, [facility] [address] [facility] [id number] [place] [address] Jun, [facility] [address] [facility] [id number] [place] [address] Jun, [facility] [address] [id number] [place] [address] Jun, [facility] [address] [id number] [place] [address] Jun, [facility] [address] [id number] [place] [address] Jun, [facility] [address] [facility] [id number] [place] [address] Jun, [facility] [address] [facility] [id number] [place] [address] Aug, [facility] [address] [id number] [place] [address] Aug, [facility] [address] [facility] [id number] [place] [address] 08 Aug, 2010 [facility] [address] [facility] [id number] [place] [address] 29 Jul, 2010 [facility] [address] [facility] [id number] [place] [address] Jul, [facility] [address] [facility] [id number] [place] [address] Jul, [facility] [address] [facility] [id number] [place] [address] 15 Jul, 2010 [facility] [address] [id number] [place] [address] 15 Jul, 2010 [facility] [address] [facility] [id number] [place] [address] Jul, [facility] [id number] [place] [address] Jun, [facility] [address] [id number] [place] [address] Apr, [facility] [address] [id number] [place] [address] Feb, [facility] [address] [id number] [place] [address] 10 Oct, 2009 [facility] [address] [id number] [place] [address] Sep, [facility] [address] [id number] [place] [address] Aug, [facility] [address] [id number] [place] [address] Aug, [facility] [id number] [place] [address] 05 Aug, 2009 [facility] [address] [id number] [place] [address] Jul, [facility] [id number] [place] [address] Jun, IMMUNIZATIONS No Known Immunizations SOCIAL HISTORY [...]
--- OUTSIDE RECORDS SUMMARY | 2020-02-22 17:17 | XMS REPORT ---
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 Role Phone SHABNAM CORREA Unavailable PROBLEMS Type Condition ICD9-CM Code [id number]-SC Code Onset Dates Condition S tatus SNOMED Code Problem Acquired hypothyroidism E03.9 Active 925774227 Problem Gastro-esophageal reflux disease without esophagitis K21.9 Active 094572178 Problem Cervical disc disease M50.90 Active 527991864 Problem Dyspepsia R10.13 Active 304445332 Problem Migraine without aura and without status migrain osus, not intractable G43.009 Active [id number] ALLERGIES No Information ENCOUNTERS Encounter Location Date Diagnosis [facility] [address] [address] Aug, Cervical disc disease M50.90 [facility] [address] [address] Aug, [facility] [address] [address] Jul, Cervical disc disease M50.90 [facility] [address] [address] Jun, Cervical disc disease M50.90 [facility] [address] [address] May, [facility] [address] [address] May, Cervical disc disease M50.90 [facility] [address] [facility] [id number] [address] [address] May, Acute cystitis with hematuri a N30.01 and UTI symptoms R39.9 [facility] [address] [place] [address] May, [facility] [address] [address] Apr, Cervical disc disease M50.90 [facility] [id number] [place] [address] Apr, Cervical disc disease M50.90 ; Gastro-es ophageal reflux disease without esophagitis K21.9 and Sinus headache R51 [facility] [id number] [place] [address] Apr, [facility] [address] [address] Apr, Cervical disc disease M50.90 [facility] [id number] [place] [address] Mar, [facility] [id number] [place] [address] Mar, Cervical disc disease M50.90 [facility] [id number] [place] [address] Feb, [address] [place] [address] Feb, Cervical disc disease M50.[address] [place] [address] January, [facility] [id number] [place] [address] January, Cervical disc disease M50.90 [facility] [id number] [place] [address] January, Cervical disc disease M50.90 [facility] [id number] [place] [address] Dec, Cervical disc disease M50.90 [facility] [id number] [place] [address] Dec, Cervical disc disease M50.90 [facility] [address] [address] Dec, Cervical disc disease M50.90 [facility] [address] [address] Dec, Cervical disc disease M50.90 ; Acquired hypothyroidism E03.9 and Migraine without aura and without status migrainosus, not intractable G43.009 [place] [address] [address] Nov, [facility] [address] [address] Nov, Cervical disc disease M50.90 [place] [address] [address] Oct, Cervical disc disease M50.90 [place] [address] [address] Sep, [facility] [address] [address] Sep, Cervical disc disease M50.90 [place] [address] [address] Aug, Cervical disc disease M50.90 [place] [address] [address] Jul, Cervical disc disease M50.90 [place] [address] [address] Jun, Acute recurrent pansinusitis J01.41 and Cervical disc disease M50.90 [facility] [address] [address] Jun, Cervical disc disease M50.90 [place] [address] [address] May, Cervical disc disease M50.90 [facility] [address] [address] Apr, Cervical disc disease M50.90 [place] [id number] [place] [address] Mar, Cervical disc disease M50.90 [facility] [address] [address] Mar, [facility] [id number] [place] [address] Mar, Cervical disc disease M50.90 [facility] [id number] [place] [address] Feb, Cervical disc disease M50.90 [facility] [id number] [place] [address] January, Cervical disc disease M50.90 [facility] [address] [address] Dec, [facility] [address] [address] Dec, Cervical disc disease M50.90 [facility] [id number] [place] [address] Nov, Cervical disc disease M50.90 [facility] [address] [address] Nov, Cervical disc disease M50.90 [facility] [id number] [place] [address] Oct, Cervical disc disease M50.90 [facility] [address] [address] Oct, Cervical disc disease M50.90 and Acute n on-recurrent maxillary sinusitis J01.00 [facility] [id number] [place] [address] Sep, Cervical disc disease M50.90 [facility] [address] [facility] [id number] [address] [place] [address] Sep, [facility] [address] [facility] [id number] [address] [place] [address] Sep, Fatigue, unspecified type R5 3.83 and Cough R05 [facility] [address] [address] Aug, Cervical disc disease M50.90 [facility] [address] [facility] [id number] [address] [address] Aug, Sore throat J02.9 ; Canker s ore K12.0 and History of anemia Z86.2 [facility] [address] [address] Jul, Cervical disc disease M50.90 [place] [address] [address] Jun, Cervical disc disease M50.90 [place] [address] [address] Jun, Cervical disc disease M50.90 [place] [address] [address] May, Cervical disc disease M50.90 [place] [address] [address] Apr, Cervical disc disease M50.90 [facility] [address] [address] Apr, [place] [address] [address] Feb, Cervical disc disease M50.90 [facility] [address] [address] January, Cervical disc disease M50.90 [place] [address] [address] Nov, [place] [address] [address] Nov, Cervical disc disease M50.90 [facility] [address] [facility] [id number] [address] [place] [address] Nov, Acute cystitis with hematuri a N30.01 and Dysuria R30.0 [facility] [address] [address] Oct, Cervical disc disease M50.90 and Acute n on-recurrent frontal sinusitis J01.10 [facility] [address] [address] Sep, Neck pain M54.2 [facility] [address] [address] Sep, [facility] [address] [address] Aug, Cervical disc disease M50.90 [place] [address] [address] Jul, [place] [address] [address] Jun, [facility] [address] [address] May, [place] [address] [address] May, Screening for diabetes mellitus Z13.1 ; Chronic fatigue R53.82 and Edema, unspecified type R60.9 [place] [address] [address] Apr, Neck pain M54.2 [facility] [address] [address] Mar, [facility] [address] [address] Mar, Neck pain M54.2 [place] [address] [address] Feb, Cervical disc disease M50.90 [facility] [address] [address] Feb, Cervical disc disease M50.90 [place] [id number] [place] [address] January, [facility] [address] [address] January, [facility] [address] [address] January, Cervical disc disease M50.90 [facility] [address] [address] January, [facility] [address] [address] January, [facility] [address] [address] Dec, Cervical disc disease M50.90 [facility] [address] [address] Nov, Cervical disc disease M50.90 [facility] [address] [address] Oct, Cervical disc disease M50.90 [facility] [address] [address] Sep, Cervical disc disease M50.90 [facility] [address] [id number] Aug, Dental caries K02.9 and Encounter for de ntal examination Z01.20 [facility] [address] [address] Aug, [facility] [address] [address] Aug, [facility] [address] [id number] Aug, Encounter for dental examination Z01.20 [facility] [address] [address] Jul, [facility] [address] [address] Jun, Sinusitis J32.9 and Cervical disc diseas e M50.90 [facility] [id number] [place] [address] Jun, [facility] [id number] [place] [address] 24 May, 2015 [facility] [id number] [place] [address] May, [facility] [id number] [place] [address] May, [facility] [id number] [place] [address] May, [facility] [id number] [place] [address] Apr, Cervical spondylosis without myelopathy 721.0 [facility] [id number] [place] [address] Mar, [facility] [id number] [place] [address] January, Cervical spondylosis without myelopathy 721.0 [facility] [id number] [place] [address] 28 Dec, 2014 [facility] [id number] [place] [address] 14 Dec, 2014 [facility] [id number] [place] [address] Dec, [facility] [id number] [place] [address] Nov, [facility] [id number] [place] [address] Nov, [facility] [id number] [place] [address] Oct, [facility] [id number] [place] [address] Oct, [facility] [id number] [place] [address] Oct, [facility] [address] [facility] [id number] [place] [address] Oct, [facility] [address] [id number] [place] [address] Oct, [facility] [address] [facility] [id number] [place] [address] Oct, [facility] [address] [facility] [id number] [place] [address] Oct, [facility] [address] [facility] [id number] [place] [address] Oct, [facility] [address] [facility] [id number] [place] [address] Oct, [facility] [address] [facility] [id number] [place] [address] Oct, [facility] [address] [facility] [id number] [place] [address] Sep, [facility] [address] [facility] [id number] [place] [address] Sep, [facility] [address] [facility] [id number] [place] [address] Sep, [facility] [address] [facility] [id number] [place] [address] Sep, [facility] [address] [facility] [id number] [place] [address] Sep, [facility] [address] [facility] [id number] [place] [address] Sep, [facility] [address] [facility] [id number] [place] [address] Sep, [facility] [address] [facility] [id number] [place] [address] Sep, [facility] [address] [facility] [id number] [place] [address] Sep, [facility] [address] [facility] [id number] [place] [address] Aug, [facility] [address] [facility] [id number] [place] [address] Aug, [facility] [address] [facility] [id number] [place] [address] Aug, [facility] [address] [facility] [id number] [place] [address] Aug, [facility] [address] [facility] [id number] [place] [address] Jul, [facility] [address] [facility] [id number] [place] [address] Jul, [facility] [address] [facility] [id number] [place] [address] Jul, [facility] [address] [facility] [id number] [place] [address] Jul, [facility] [address] [facility] [id number] [place] [address] Jul, [facility] [address] [facility] [id number] [place] [address] Jul, [facility] [address] [facility] [id number] [place] [address] Jul, [facility] [address] [facility] [id number] [place] [address] Jul, [facility] [address] [facility] [id number] [place] [address] Jun, [facility] [address] [facility] [id number] [place] [address] Jun, [facility] [address] [facility] [id number] [place] [address] Jun, [facility] [address] [facility] [id number] [place] [address] Jun, [facility] [address] [facility] [id number] [place] [address] 16 Jun, 2014 [facility] [address] [facility] [id number] [place] [address] 15 Jun, 2014 [facility] [address] [id number] [place] [address] 15 Jun, 2014 [facility] [address] [id number] [place] [address] 14 Jun, 2014 [facility] [address] [id number] [place] [address] 14 Jun, 2014 [facility] [address] [facility] [id number] [place] [address] Jun, [facility] [address] [id number] [place] [address] Jun, [facility] [address] [id number] [place] [address] 24 May, 2014 [facility] [address] [facility] [id number] [place] [address] 24 May, 2014 [facility] [address] [facility] [id number] [place] [address] 08 May, 2014 [facility] [address] [facility] [id number] [place] [address] May, [facility] [address] [facility] [id number] [place] [address] May, [facility] [address] [facility] [id number] [place] [address] Apr, [facility] [address] [facility] [id number] [place] [address] Apr, [facility] [address] [facility] [id number] [place] [address] Apr, [facility] [address] [facility] [id number] [place] [address] Apr, [facility] [address] [id number] [place] [address] Apr, [facility] [address] [facility] [id number] [place] [address] Apr, [facility] [address] [id number] [place] [address] Mar, [facility] [address] [id number] [place] [address] Mar, [facility] [address] [id number] [place] [address] Mar, [facility] [address] [facility] [id number] [place] [address] Mar, [facility] [address] [id number] [place] [address] Mar, [facility] [address] [id number] [place] [address] Mar, [facility] [address] [id number] [place] [address] Feb, [facility] [address] [id number] [place] [address] Feb, [facility] [address] [id number] [place] [address] Feb, [facility] [address] [id number] [place] [address] Feb, [facility] [address] [id number] [place] [address] Feb, [facility] [address] [id number] [place] [address] Feb, [facility] [address] [id number] [place] [address] Feb, [facility] [address] [id number] [place] [address] Feb, [facility] [address] [id number] [place] [address] January, [facility] [address] [id number] [place] [address] January, [facility] [address] [id number] [place] [address] January, [facility] [address] [facility] [id number] [place] [address] January, [facility] [address] [id number] [place] [address] January, [facility] [address] [id number] [place] [address] January, [facility] [address] [facility] [id number] [place] [address] January, [facility] [address] [id number] [place] [address] January, [facility] [address] [id number] [place] [address] Dec, [facility] [address] [id number] [place] [address] Dec, [facility] [address] [id number] [place] [address] Dec, [facility] [address] [id number] [place] [address] Dec, [facility] [address] [id number] [place] [address] Dec, [facility] [address] [id number] [place] [address] Dec, [facility] [address] [id number] [place] [address] Nov, [facility] [address] [id number] [place] [address] Nov, [facility] [address] [id number] [place] [address] Nov, [facility] [address] [id number] [place] [address] Nov, [facility] [address] [id number] [place] [address] Nov, [facility] [address] [id number] [place] [address] Nov, [facility] [address] [id number] [place] [address] Nov, [facility] [address] [id number] [place] [address] Nov, [facility] [address] [id number] [place] [address] Oct, [facility] [address] [id number] [place] [address] Oct, [facility] [address] [id number] [place] [address] Sep, [facility] [address] [id number] [place] [address] Sep, [facility] [address] [id number] [place] [address] Sep, [facility] [address] [id number] [place] [address] Sep, [facility] [address] [id number] [place] [address] Aug, [facility] [address] [id number] [place] [address] Aug, [facility] [address] [id number] [place] [address] Aug, [facility] [address] [id number] [place] [address] Aug, [facility] [id number] [place] [address] Jul, [facility] [address] [id number] [place] [address] Jul, [facility] [address] [id number] [place] [address] Jul, [facility] [address] [id number] [place] [address] Jul, [facility] [address] [id number] [place] [address] Jul, [facility] [address] [id number] [place] [address] Jul, [facility] [address] [id number] [place] [address] Jul, [facility] [id number] [place] [address] Jul, [facility] [id number] [place] [address] Jul, [facility] [id number] [place] [address] Jul, [facility] [id number] [place] [address] Jul, [facility] [id number] [place] [address] Jul, [facility] [id number] [place] [address] Jun, [facility] [id number] [place] [address] Jun, [facility] [id number] [place] [address] Jun, [facility] [id number] [place] [address] Jun, [facility] [id number] [place] [address] 16 Jun, 2013 [facility] [id number] [place] [address] 14 Jun, 2013 [facility] [id number] [place] [address] 14 Jun, 2013 [facility] [id number] [place] [address] Jun, [facility] [id number] [place] [address] May, [facility] [id number] [place] [address] May, [facility] [id number] [place] [address] May, [facility] [id number] [place] [address] Apr, [facility] [id number] [place] [address] Apr, [facility] [id number] [place] [address] Mar, [facility] [id number] [place] [address] Mar, [facility] [id number] [place] [address] Feb, [facility] [id number] [place] [address] January, [facility] [id number] [place] [address] January, [facility] [id number] [place] [address] January, [facility] [id number] [place] [address] January, [facility] [id number] [place] [address] January, [facility] [id number] [place] [address] Dec, [facility] [id number] [place] [address] Dec, [facility] [id number] [place] [address] Dec, [facility] [id number] [place] [address] Nov, [facility] [id number] [place] [address] Oct, [facility] [id number] [place] [address] Oct, [facility] [id number] [place] [address] 15 Oct, 2012 [facility] [id number] [place] [address] Sep, [facility] [id number] [place] [address] 16 Sep, 2012 [facility] [id number] [place] [address] 14 Aug, 2012 [facility] [id number] [place] [address] 14 Aug, 2012 [facility] [id number] [place] [address] Aug, [facility] [id number] [place] [address] Aug, [facility] [id number] [place] [address] Jul, [facility] [id number] [place] [address] Jul, [facility] [id number] [place] [address] Jul, [facility] [id number] [place] [address] Jul, [facility] [id number] [place] [address] Jul, [facility] [id number] [place] [address] 15 Jun, 2012 [facility] [id number] [place] [address] 15 Jun, 2012 [facility] [id number] [place] [address] 10 Jun, 2012 [facility] [id number] [place] [address] 10 Jun, 2012 [facility] [address] [id number] [place] [address] 10 May, 2012 [facility] [id number] [place] [address] Apr, [facility] [id number] [place] [address] Apr, [facility] [id number] [place] [address] Apr, [facility] [id number] [place] [address] Apr, [facility] [id number] [place] [address] January, [facility] [id number] [place] [address] January, [facility] [id number] [place] [address] Dec, [facility] [id number] [place] [address] Dec, [facility] [id number] [place] [address] Nov, [facility] [id number] [place] [address] Nov, [facility] [id number] [place] [address] Nov, [facility] [id number] [place] [address] Nov, [facility] [id number] [place] [address] Oct, [facility] [id number] [place] [address] Oct, [facility] [id number] [place] [address] Oct, [facility] [id number] [place] [address] Sep, [facility] [id number] [place] [address] Sep, [facility] [id number] [place] [address] Aug, [facility] [id number] [place] [address] Aug, [facility] [id number] [place] [address] Jul, [facility] [id number] [place] [address] Jul, [facility] [id number] [place] [address] Jul, [facility] [id number] [place] [address] Jun, [facility] [id number] [place] [address] Jun, [facility] [id number] [place] [address] Jun, [facility] [id number] [place] [address] Jun, [facility] [id number] [place] [address] Jun, [facility] [id number] [place] [address] Jun, [facility] [id number] [place] [address] Aug, [facility] [id number] [place] [address] Aug, [facility] [id number] [place] [address] 08 Aug, 2010 [facility] [id number] [place] [address] 29 Jul, 2010 [facility] [id number] [place] [address] Jul, [facility] [id number] [place] [address] Jul, [facility] [id number] [place] [address] 15 Jul, 2010 [facility] [id number] [place] [address] 15 Jul, 2010 [facility] [id number] [place] [address] Jul, [facility] [id number] [place] [address] Jun, [facility] [id number] [place] [address] Apr, [facility] [id number] [place] [address] Feb, [facility] [id number] [place] [address] 10 Oct, 2009 [facility] [id number] [place] [address] Sep, [facility] [id number] [place] [address] Aug, [facility] [id number] [place] [address] Aug, [facility] [id number] [place] [address] 05 Aug, 2009 [facility] [id number] [place] [address] Jul, [facility] [id number] [place] [address] Jun, IMMUNIZATIONS No Known Immunizations SOCIAL HISTORY [...]
[2020-02-22 17:18] LABS: BASOPHILS % (AUTO) 1 % (0-10); EOSINOPHILS # (AUTO) 0.1 10^3/uL (0.0-0.3); EOSINOPHILS % (AUTO) 1 % (0-10); HEMATOCRIT 30 % (35-52); HEMOGLOBIN 9.2 G/DL (11.5-16.0); LYMPHOCYTES # (AUTO) 1.9 X 10^3 (1.0-4.0); LYMPHOCYTES % (AUTO) 27 % (12-44); MEAN CORPUSCULAR HEMOGLOBIN 21 PG (25-34); MEAN CORPUSCULAR HGB CONC 31 G/DL (32-36); MEAN CORPUSCULAR VOLUME 69 FL (80-99); MONOCYTES # (AUTO) 0.4 X 10^3 (0.0-1.0); MONOCYTES % (AUTO) 6 % (0-12); NEUTROPHILS # (AUTO) 4.7 X 10^3 (1.8-7.8); NEUTROPHILS % (AUTO) 66 % (42-75); PLATELET COUNT 711 10^3/uL (130-400); RED CELL DISTRIBUTION WIDTH 17.8 % (10.0-14.5); WHITE BLOOD COUNT 7.1 10^3/uL (4.3-11.0)
--- OUTSIDE RECORDS SUMMARY | 2020-02-22 17:18 | XMS REPORT ---
Author Author Marion CORREA Organization [facility] Address [address] [place] [address] Care Team Providers Care C Architect Name Role Phone SHABNAM CORREA Unavailable PROBLEMS Type Condition ICD9-CM Code [id number] Code Onset Dates Condition S tatus SNOMED Code Problem Acquired hypothyroidism E03.9 Active 105906017 Problem Gastro-esophageal reflux disease without esophagitis K21.9 Active 063270058 Problem Cervical disc disease M50.90 Active 377047013 Problem Dyspepsia R10.13 Active 631893952 Problem Migraine without aura and without status migrain osus, not intractable G43.009 Active [id number] ALLERGIES No Information ENCOUNTERS Encounter Location Date Diagnosis [facility] [address] [id number] [address] [place] [id number] May, [facility] [address] [id number] [address] [place] [address] May, Cervical disc disease M50.90 [facility] [address] [id number] [address] [place] [id number] 19 May, 2019 Acute cystitis with hematuri a N30.01 and UTI symptoms R39.9 [facility] [address] [id number] [address] [place] [id number] May, [facility] [address] [id number] [address] [place] [phone] Apr, Cervical disc disease M50.90 [facility] [address] [id number] [address] [place] [address] Apr, Cervical disc disease M50.90 ; Gastro-esophageal reflux disease without esophagitis K21.9 and Sinus headache R51 [facility] [address] [id number] [address] [place] [id number] Apr, [facility] [address] [id number] [address] [place] [id number] Apr, Cervical disc disease M50.90 [facility] [address] [id number] [address] [place] [phone] Mar, [facility] [address] [id number] [address] [place] [address] Mar, Cervical disc disease M50.90 [facility] [address] [id number] [address] [place] [phone] Feb, [address] [id number] Feb, Cervical disc disease M50.[address] [address] January, [facility] [address] [facility] [id number] [address] [place] [id number] January, Cervical disc disease M50.90 [facility] [address] [facility] [id number] [address] [place] [address] January, Cervical disc disease M50.90 [facility] [address] [facility] [id number] [address] [place] [address] Dec, Cervical disc disease M50.90 [facility] [address] [id number] [address] [place] [address] Dec, Cervical disc disease M50.90 [facility] [address] [facility] [id number] [address] [place] [id number] Dec, Cervical disc disease M50.90 [facility] [address] [facility] [id number] [address] [place] [id number] Dec, Cervical disc disease M50.90 ; Acquired hypothyroidism E03.9 and Migraine without aura and without status migrainosus, not intractable G43.009 [facility] [address] [id number] [address] [place] [address] Nov, [facility] [address] [id number] [address] [place] [address] Nov, Cervical disc disease M50.90 [facility] [address] [id number] [address] [place] [id number] Oct, Cervical disc disease M50.90 [facility] [address] [id number] [address] [place] [id number] Sep, [facility] [address] [id number] [address] [place] [id number] Sep, Cervical disc disease M50.90 [facility] [address] [id number] [address] [place] [address] Aug, Cervical disc disease M50.90 [facility] [address] [facility] [id number] [address] [place] [address] Jul, Cervical disc disease M50.90 [facility] [address] [facility] [id number] [address] [place] [address] Jun, Acute recurrent pansinusitis J01.41 and Cervical disc disease M50.90 [facility] [address] [id number] [address] [place] [address] Jun, Cervical disc disease M50.90 [facility] [address] [facility] [id number] [address] [place] [address] May, Cervical disc disease M50.90 [facility] [address] [facility] [id number] [address] [place] [address] Apr, Cervical disc disease M50.90 [facility] [address] [id number] [address] [place] [address] Mar, Cervical disc disease M50.90 [facility] [address] [facility] [id number] [address] [place] [address] Mar, [facility] [address] [facility] [id number] [address] [place] [address] Mar, Cervical disc disease M50.90 [facility] [address] [id number] [address] [place] [id number] Feb, Cervical disc disease M50.90 [facility] [address] [id number] [address] [place] [address] January, Cervical disc disease M50.90 [facility] [address] [id number] [address] [place] [address] Dec, [facility] [address] [id number] [address] [place] [address] Dec, Cervical disc disease M50.90 [facility] [address] [id number] [address] [place] [address] Nov, Cervical disc disease M50.90 [facility] [address] [id number] [address] [place] [address] Nov, Cervical disc disease M50.90 [facility] [address] [id number] [address] [place] [address] Oct, Cervical disc disease M50.90 [facility] [address] [id number] [address] [place] [id number] Oct, Cervical disc disease M50.90 and Acute non-recurrent maxillary sinusitis J01.00 [facility] [address] [id number] [address] [place] [id number] Sep, Cervical disc disease M50.90 [facility] [address] [id number] [address] [place] [address] Sep, [facility] [address] [id number] [address] [place] [id number] Sep, Fatigue, unspecified type R5 3.83 and Cough R05 [facility] [address] [id number] [address] [place] [id number] Aug, Cervical disc disease M50.90 [facility] [address] [id number] [address] [place] [address] Aug, Sore throat J02.9 ; Canker s ore K12.0 and History of anemia Z86.2 [facility] [address] [id number] [address] [place] [id number] Jul, Cervical disc disease M50.90 [facility] [address] [id number] [address] [place] [address] Jun, Cervical disc disease M50.90 [facility] [id number] [place] [address] Jun, Cervical disc disease M50.90 [facility] [address] [id number] [address] [place] [id number] May, Cervical disc disease M50.90 [facility] [address] [id number] [address] [place] [id number] Apr, Cervical disc disease M50.90 [facility] [address] [id number] [address] [place] [id number] Apr, [facility] [address] [id number] [address] [place] [id number] Feb, Cervical disc disease M50.90 [facility] [address] [id number] [address] [place] [id number] January, Cervical disc disease M50.90 [facility] [address] [id number] [address] [place] [phone] Nov, [facility] [address] [facility] [id number] [address] [place] [address] Nov, Cervical disc disease M50.90 [facility] [address] [facility] [id number] [address] [place] [address] Nov, Acute cystitis with hematuri a N30.01 and Dysuria R30.0 [facility] [address] [id number] [address] [place] [address] Oct, Cervical disc disease M50.90 and Acute non-recurrent frontal sinusitis J01.10 [facility] [address] [id number] [address] [place] [id number] Sep, Neck pain M54.2 [facility] [address] [facility] [id number] [address] [place] [id number] Sep, [facility] [address] [facility] [id number] [address] [place] [id number] Aug, Cervical disc disease M50.90 [facility] [address] [id number] [address] [place] [id number] Jul, [facility] [address] [facility] [id number] [address] [place] [id number] Jun, [facility] [address] [facility] [id number] [address] [place] [phone] May, [facility] [address] [facility] [id number] [address] [place] [address] May, Screening for diabetes emilio tus Z13.1 ; Chronic fatigue R53.82 and Edema, unspecified type R60.9 [facility] [address] [facility] [id number] [address] [place] [address] Apr, Neck pain M54.2 [facility] [address] [facility] [id number] [address] [place] [id number] Mar, [facility] [address] [facility] [id number] [address] [place] [address] Mar, Neck pain M54.2 [facility] [address] [facility] [id number] [address] [place] [id number] Feb, Cervical disc disease M50.90 [facility] [address] [facility] [id number] [address] [place] [id number] Feb, Cervical disc disease M50.90 [facility] [address] [facility] [id number] [address] [place] [id number] January, [facility] [address] [id number] [address] [place] [id number] January, [facility] [address] [id number] [address] [place] [address] January, Cervical disc disease M50.90 [facility] [address] [id number] [address] [place] [address] January, [facility] [address] [id number] [address] [place] [id number] January, [facility] [address] [id number] [address] [place] [address] Dec, Cervical disc disease M50.90 [facility] [address] [id number] [address] [place] [address] Nov, Cervical disc disease M50.90 [facility] [address] [id number] [address] [place] [address] Oct, Cervical disc disease M50.90 [facility] [address] [id number] [address] [place] [address] Sep, Cervical disc disease M50.90 [facility] [address] [id number] [address] [place] [id number] Aug, Dental caries K02.9 and Enco unter for dental examination Z01.20 [facility] [address] [id number] [address] [place] [id number] Aug, [facility] [address] [id number] [address] [place] [id number] Aug, [facility] [address] [id number] [address] [place] [address] [id number] Aug, Encounter for dental examina tion Z01.20 [facility] [address] [id number] [address] [place] [id number] Jul, [facility] [address] [id number] [address] [place] [id number] Jun, Sinusitis J32.9 and Cervical disc disease M50.90 [facility] [address] [id number] [address] [place] [id number] Jun, [facility] [address] [id number] [address] [place] [id number] May, [facility] [address] [id number] [address] [place] [phone] May, [facility] [address] [id number] [address] [place] [id number] May, [facility] [address] [id number] [address] [place] [address] May, [facility] [address] [id number] [address] [place] [id number] Apr, Cervical spondylosis without myelopathy 721.0 [facility] [address] [id number] [address] [place] [id number] Mar, [facility] [address] [id number] [address] [place] [id number] January, Cervical spondylosis without myelopathy 721.0 [facility] [address] [id number] [address] [place] [phone] Dec, [facility] [address] [id number] [address] [place] [id number] 14 Dec, 2014 [facility] [address] [id number] [address] [place] [id number] 13 Dec, 2014 [facility] [address] [id number] [address] [place] [phone] Nov, [facility] [address] [id number] [address] [place] [phone] Nov, [facility] [address] [id number] [address] [place] [phone] Oct, [facility] [address] [id number] [address] [place] [address], [place] [address] Oct, 2014 [facility] [address] [id number] [address] [place] [address], [place] [address] Oct, 2014 [facility] [address] [id number] [address] [place] [address], [place] [address] Oct, 2014 [facility] [address] [id number] [address] [place] [address], [place] [address] Oct, 2014 [facility] [address] [id number] [address] [place] [address], [place] [address] Oct, 2014 [facility] [address] [id number] [address] [place] [address], [place] [address] Oct, 2014 [facility] [address] [id number] [address] [place] [address], [place] [address] Oct, 2014 [facility] [address] [id number] [address] [place] [address], [place] [address] Oct, 2014 [facility] [address] [id number] [address] [place] [address], [place] [address] Oct, [facility] [address] [id number] [address] [place] [address], [place] [address] Sep, [facility] [address] [id number] [address] [place] [address], [place] [address] Sep, [facility] [address] [id number] [address] [place] [address], [place] [address] Sep, [facility] [address] [id number] [address] [place] [address], [place] [address] Sep, [facility] [address] [id number] [address] [place] [address], [place] [address] Sep, [facility] [address] [id number] [address] [place] [address], [place] [address] Sep, [facility] [address] [id number] [address] [place] [address] [place] [address] Sep, [facility] [address] [id number] [address] [place] [address], [place] [address] Sep, [facility] [address] [id number] [address] [place] [address], [place] [address] Sep, [facility] [address] [id number] [address] [place] [address], [place] [address] Aug, [facility] [address] [id number] [address] [place] [address], [place] [address] Aug, [facility] [address] [id number] [address] [place] [address], [place] [address] Aug, [facility] [address] [id number] [address] [place] [address], [place] [address] Aug, [facility] [address] [id number] [address] [place] [address], [place] [address] Jul, [facility] [address] [id number] [address] [place] [address], [place] [address] Jul, [facility] [address] [id number] [address] [place] [address], [place] [address] Jul, [facility] [address] [id number] [address] [place] [address], [place] [address] Jul, [facility] [address] [id number] [address] [place] [address], [place] [address] Jul, [facility] [address] [id number] [address] [place] [address], [place] [address] Jul, [facility] [address] [id number] [address] [place] [address], [place] [address] Jul, [facility] [address] [id number] [address] [place] [address], [place] [address] Jul, [facility] [address] [id number] [address] [place] [address], [place] [address] Jun, [facility] [address] [id number] [address] [place] [address], [place] [address] 27 Jun, 2014 [facility] [address] [id number] [address] [place] [address], [place] [address] 20 Jun, 2014 [facility] [address] [id number] [address] [place] [address], [place] [address] 20 Jun, 2014 [facility] [address] [id number] [address] [place] [address], [place] [address] 16 Jun, 2014 [facility] [address] [id number] [address] [place] [address], [place] [address] 15 Jun, 2014 [facility] [address] [id number] [address] [place] [address], [place] [address] 15 Jun, 2014 [facility] [address] [id number] [address] [place] [address], [place] [address] 14 Jun, 2014 [facility] [address] [id number] [address] [place] [address], [place] [address] 14 Jun, 2014 [facility] [address] [id number] [address] [place] [address], [place] [address] 11 Jun, 2014 [facility] [address] [id number] [address] [place] [address], [place] [address] 11 Jun, 2014 [facility] [address] [id number] [address] [place] [address], [place] [address] 24 May, 2013 [facility] [address] [id number] [address] [place] [address], [place] [address] 24 Sep, 2013 [facility] [address] [id number] [address] [place] [address], [place] [address] 08 Sep, 2013 [facility] [address] [id number] [address] [place] [address], [place] [address] 02 Sep, 2013 [facility] [address] [id number] [address] [place] [address], [place] [address] 02 Sep, 2013 [facility] [address] [id number] [address] [place] [address], [place] [address] Apr, [facility] [address] [id number] [facility] [address] Apr, [facility] [address] [id number] [address] [place] [address], [place] [address] Apr, [facility] [address] [id number] [facility] [address] Apr, [facility] [address] [id number] [address] [place] [address], [place] [address] Apr, [facility] [address] [id number] [address] [place] [address], [place] [address] Apr, [facility] [address] [id number] [address] [place] [address], [place] [address] Mar, [facility] [address] [id number] [address] [place] [address], [place] [address] Mar, [facility] [place] [facility] [address] [id number] [address] [place] [address], [place] [address] Mar, [facility] [place] [facility] [address] [id number] [address] [place] [address], [place] [address] Mar, [facility] [place] [facility] [address] [id number] [address] [place] [address], [place] [address] Mar, [facility] [place] [facility] [address] [id number] [address] [place] [address], [place] [address] Mar, [facility] [place] [facility] [address] [id number] [address] [place] [address], [place] [address] Feb, [facility] [place] [facility] [address] [id number] [address] [place] [address], [place] [address] Feb, [facility] [place] [facility] [address] [id number] [address] [place] [address], [place] [address] Feb, [facility] [place] [facility] [address] [id number] [address] [place] [address], [place] [address] Feb, [facility] [place] [facility] [address] [id number] [address] [place] [address] Feb, [facility] [address] [id number] [address] [place] [address], [place] [address] Feb, [facility] [address] [id number] [address] [place] [address], [place] [address] Feb, [facility] [address] [id number] [address] [place] [address], [place] [address] Feb, [facility] [address] [id number] [address] [place] [address], [place] [address] January, [facility] [address] [id number] [address] [place] [address], [place] [address] January, [facility] [address] [id number] [address] [place] [address], [place] [address] January, [facility] [address] [id number] [address] [place] [address], [place] [address] January, [facility] [address] [id number] [address] [place] [address], [place] [address] January, [facility] [address] [id number] [address] [place] [address], [place] [address] January, [facility] [address] [id number] [address] [place] [address], [place] [address] January, [facility] [address] [id number] [address] [place] [address], [place] [address] January, [facility] [address] [id number] [address] [place] [address], [place] [address] Dec, [facility] [address] [id number] [address] [place] [address], [place] [address] Dec, [facility] [address] [id number] [address] [place] [address], [place] [address] Dec, [facility] [address] [id number] [address] [place] [address], [place] [address] Dec, [facility] [address] [id number] [address] [place] [address], [place] [address] Dec, [facility] [address] [id number] [address] [place] [address], [place] [address] Dec, [facility] [address] [id number] [address] [place] [address], [place] [address] Nov, [facility] [address] [id number] [address] [place] [address], [place] [address] Nov, [facility] [address] [id number] [address] [place] [address], [place] [address] Nov, [facility] [address] [id number] [address] [place] [address], [place] [address] Nov, [facility] [address] [id number] [address] [place] [address], [place] [address] Nov, [facility] [address] [id number] [address] [place] [address], [place] [address] Nov, [facility] [address] [id number] [address] [place] [address], [place] [address] Nov, [facility] [address] [id number] [address] [place] [address], [place] [address] Nov, [facility] [address] [id number] [address] [place] [address], [place] [address] Oct, [facility] [address] [id number] [address] [place] [address], [place] [address] Oct, [facility] [address] [id number] [address] [place] [address], [place] [address] Sep, [facility] [address] [id number] [address] [place] [address], [place] [address] Sep, [facility] [address] [id number] [address] [place] [address], [place] [address] Sep, [facility] [address] [id number] [address] [place] [address] Sep, [facility] [address] [id number] [address] [place] [address], [place] [address] Aug, [facility] [address] [id number] [address] [place] [address], [place] [address] Aug, [facility] [address] [id number] [address] [place] [address], [place] [address] Aug, [facility] [address] [id number] [address] [place] [address], [place] [address] Aug, [facility] [address] [id number] [address] [place] [address], [place] [address] Jul, [facility] [address] [id number] [address] [place] [address], [place] [address] Jul, [facility] [address] [id number] [address] [place] [address], [place] [address] Jul, [facility] [address] [id number] [address] [place] [address], [place] [address] Jul, [facility] [address] [id number] [address] [place] [address], [place] [address] Jul, [facility] [address] [id number] [address] [place] [address], [place] [address] Jul, [facility] [address] [id number] [address] [place] [address], [place] [address] Jul, [facility] [address] [id number] [address] [place] [address], [place] [address] Jul, [facility] [address] [id number] [address] [place] [address], [place] [address] Jul, [facility] [address] [id number] [address] [place] [address], [place] [address] Jul, [facility] [address] [id number] [address] [place] [address], [place] [address] Jul, [facility] [address] [id number] [address] [place] [address], [place] [address] Jul, [facility] [address] [id number] [address] [place] [address], [place] [address] Jun, [facility] [address] [id number] [address] [place] [address], [place] [address] Jun, [facility] [address] [id number] [address] [place] [address], [place] [address] Jun, [facility] [address] [id number] [address] [place] [address], [place] [address] Jun, [facility] [address] [id number] [address] [place] [address], [place] [address] 16 Jun, 2013 [facility] [address] [id number] [address] [place] [address], [place] [address] Jun, [facility] [address] [id number] [address] [place] [address], [place] [address] Jun, [facility] [address] [id number] [address] [place] [address], [place] [address] 02 Jun, 2013 [facility] [address] [id number] [address] [place] [address], [place] [address] 15 May, 2013 [facility] [address] [id number] [address] [place] [address], [place] [address] 05 May, 2013 [facility] [address] [id number] [address] [place] [address], [place] [address] 04 May, 2013 [facility] [address] [id number] [address] [place] [address], [place] [address] Apr, [facility] [address] [id number] [address] [place] [address], [place] [address] Apr, [facility] [address] [id number] [address] [place] [address], [place] [address] Mar, [facility] [address] [id number] [address] [place] [address], [place] [address] Mar, [facility] [address] [id number] [address] [place] [address], [place] [address] Feb, [facility] [address] [id number] [address] [place] [address], [place] [address] January, [facility] [address] [id number] [address] [place] [address], [place] [address] January, [facility] [address] [id number] [address] [place] [address], [place] [address] January, [facility] [address] [id number] [address] [place] [address], [place] [address] January, [facility] [address] [id number] [address] [place] [address], [place] [address] January, [facility] [address] [id number] [address] [place] [address], [place] [address] Dec, [facility] [address] [id number] [address] [place] [address], [place] [address] Dec, [facility] [address] [id number] [address] [place] [address], [place] [address] Dec, [facility] [address] [id number] [address] [place] [address], [place] [address] Nov, [facility] [address] [id number] [address] [place] [address], [place] [address] Oct, [facility] [address] [id number] [address] [place] [address], [place] [address] Oct, [facility] [address] [id number] [address] [place] [address], [place] [address] Oct, [facility] [address] [id number] [address] [place] [address], [place] [address] Sep, [facility] [address] [id number] [address] [place] [address], [place] [address] Sep, [facility] [address] [id number] [address] [place] [address], [place] [address] 14 Aug, 2012 [facility] [address] [id number] [address] [place] [address], [place] [address] 14 Aug, 2012 [facility] [address] [id number] [address] [place] [address], [place] [address] 11 Aug, 2012 [facility] [address] [id number] [address] [place] [address], [place] [address] 11 Aug, 2012 [facility] [address] [id number] [address] [place] [address], [place] [address] Jul, [facility] [address] [id number] [address] [place] [address], [place] [address] Jul, [facility] [address] [id number] [address] [place] [address], [place] [address] Jul, [facility] [address] [id number] [address] [place] [address], [place] [address] Jul, [facility] [address] [id number] [address] [place] [address], [place] [address] 09 Jul, 2012 [facility] [address] [id number] [address] [place] [address], [place] [address] 15 Jun, 2012 [facility] [address] [id number] [address] [place] [address], [place] [address] 15 Jun, 2012 [facility] [address] [id number] [address] [place] [address], [place] [address] 10 Jun, 2012 [facility] [address] [id number] [address] [place] [address], [place] [address] 10 Jun, 2012 [facility] [address] [id number] [address] [place] [address], [place] [address] 10 May, 2012 [facility] [address] [id number] [address] [place] [address], [place] [address] 13 Apr, 2012 [facility] [address] [id number] [address] [place] [address], [place] [address] 13 Apr, 2012 [facility] [address] [id number] [address] [place] [address], [place] [address] Apr, [facility] [address] [id number] [address] [place] [address], [place] [address] Apr, [facility] [address] [id number] [address] [place] [address], [place] [address] January, [facility] [address] [id number] [address] [place] [address], [place] [address] January, [facility] [address] [id number] [address] [place] [address], [place] [address] Dec, [facility] [address] [id number] [address] [place] [address], [place] [address] Dec, [facility] [address] [id number] [address] [place] [address], [place] [address] Nov, [facility] [address] [id number] [address] [place] [address], [place] [address] Nov, [facility] [address] [id number] [address] [place] [address], [place] [address] Nov, [facility] [address] [id number] [address] [place] [address], [place] [address] Nov, [facility] [address] [id number] [address] [place] [address], [place] [address] Oct, [facility] [address] [id number] [address] [place] [address], [place] [address] Oct, [facility] [address] [id number] [address] [place] [address], [place] [address] Oct, [facility] [address] [id number] [address] [place] [address], [place] [address] Sep, [facility] [address] [id number] [address] [place] [address], [place] [address] Sep, [facility] [address] [id number] [address] [place] [address], [place] [address] Aug, [facility] [address] [id number] [address] [place] [address], [place] [address] Aug, [facility] [address] [id number] [address] [place] [address], [place] [address] Jul, [facility] [address] [id number] [address] [place] [address], [place] [address] Jul, [facility] [address] [id number] [address] [place] [address], [place] [address] Jul, [facility] [address] [id number] [address] [place] [address], [place] [address] Jun, [facility] [address] [id number] [address] [place] [address], [place] [address] 24 Jun, 2011 [facility] [address] [id number] [address] [place] [address], [place] [address] Jun, [facility] [address] [id number] [address] [place] [address], [place] [address] Jun, [facility] [address] [id number] [address] [place] [address], [place] [address] Jun, [facility] [address] [id number] [address] [place] [address], [place] [address] Jun, [facility] [address] [id number] [address] [place] [address], [place] [address] Aug, [facility] [address] [id number] [address] [place] [address], [place] [address] Aug, [facility] [address] [id number] [address] [place] [address], [place] [address] Aug, [facility] [address] [id number] [address] [place] [address], [place] [address] Jul, [facility] [address] [id number] [address] [place] [address], [place] [address] Jul, [facility] [address] [id number] [address] [place] [id number] Jul, [facility] [address] [id number] [address] [place] [id number] Jul, [facility] [address] [id number] [address] [place] [address] Jul, [facility] [address] [id number] [address] [place] [address] Jul, [facility] [address] [id number] [address] [place] [id number] Jun, [facility] [address] [id number] [address] [place] [address] Apr, [facility] [address] [id number] [address] [place] [id number] Feb, [facility] [address] [id number] [address] [place] [id number] Oct, [facility] [address] [id number] [address] [place] [address] Sep, [facility] [address] [id number] [address] [place] [address] Aug, [facility] [address] [id number] [address] [place] [id number] Aug, [facility] [address] [id number] [address] [place] [id number] Aug, [facility] [address] [id number] [address] [place] [address] Jul, [facility] [address] [id number] [address] [place] [address] Jun, IMMUNIZATIONS No Known Immunizations SOCIAL HISTORY [...]
--- OUTSIDE RECORDS SUMMARY | 2020-02-22 17:18 | XMS REPORT ---
Author Author Marion CORREA Organization [facility] Address [address] [place] [address] Care Team Providers Care Rubber Trimmer Name Role Phone SHABNAM CORREA Unavailable PROBLEMS Type Condition ICD9-CM Code [id number] Code Onset Dates Condition S tatus SNOMED Code Problem Acquired hypothyroidism E03.9 Active 726291748 Problem Gastro-esophageal reflux disease without esophagitis K21.9 Active 293561325 Problem Cervical disc disease M50.90 Active 611708770 Problem Dyspepsia R10.13 Active 173235656 Problem Migraine without aura and without status migrain osus, not intractable G43.009 Active [id number] ALLERGIES No Information ENCOUNTERS Encounter Location Date Diagnosis [facility] [address] [address] Aug, Cervical disc disease M50.90 [facility] [address] [address] Aug, [facility] [address] [address] Jul, Cervical disc disease M50.90 [facility] [address] [address] Jun, Cervical disc disease M50.90 [facility] [address] [address] May, [facility] [address] [address] May, Cervical disc disease M50.90 [facility] [address] [facility] [id number] [place] [address] May, Acute cystitis with hematuri a N30.01 and UTI symptoms R39.9 [facility] [address] [place] [address] May, [facility] [address] [address] Apr, Cervical disc disease M50.90 [facility] [id number] [place] [address] Apr, Cervical disc disease M50.90 ; Gastro-es ophageal reflux disease without esophagitis K21.9 and Sinus headache R51 [facility] [id number] [place] [address] Apr, [facility] [address] [address] Apr, Cervical disc disease M50.90 [facility] [id number] [place] [address] Mar, [facility] [id number] [place] [address] Mar, Cervical disc disease M50.90 [facility] [id number] [place] [address] Feb, [address] [place] [address] Feb, Cervical disc disease M50.[address] [place] [address] January, [facility] [id number] [place] [address] January, Cervical disc disease M50.90 [facility] [id number] [place] [address] January, Cervical disc disease M50.90 [facility] [id number] [place] [address] Dec, Cervical disc disease M50.90 [facility] [id number] [place] [address] Dec, Cervical disc disease M50.90 [facility] [address] [address] Dec, Cervical disc disease M50.90 [facility] [address] [address] Dec, Cervical disc disease M50.90 ; Acquired hypothyroidism E03.9 and Migraine without aura and without status migrainosus, not intractable G43.009 [place] [address] [address] Nov, [facility] [address] [address] Nov, Cervical disc disease M50.90 [place] [address] [address] Oct, Cervical disc disease M50.90 [place] [address] [address] Sep, [facility] [address] [address] Sep, Cervical disc disease M50.90 [place] [address] [address] Aug, Cervical disc disease M50.90 [place] [address] [address] Jul, Cervical disc disease M50.90 [place] [address] [address] Jun, Acute recurrent pansinusitis J01.41 and Cervical disc disease M50.90 [facility] [address] [address] Jun, Cervical disc disease M50.90 [place] [address] [address] May, Cervical disc disease M50.90 [facility] [address] [address] Apr, Cervical disc disease M50.90 [place] [id number] [place] [address] Mar, Cervical disc disease M50.90 [facility] [address] [address] Mar, [facility] [id number] [place] [address] Mar, Cervical disc disease M50.90 [facility] [id number] [place] [address] Feb, Cervical disc disease M50.90 [facility] [id number] [place] [address] January, Cervical disc disease M50.90 [facility] [address] [address] Dec, [facility] [address] [address] Dec, Cervical disc disease M50.90 [facility] [id number] [place] [address] Nov, Cervical disc disease M50.90 [facility] [address] [address] Nov, Cervical disc disease M50.90 [facility] [id number] [place] [address] Oct, Cervical disc disease M50.90 [facility] [address] [address] Oct, Cervical disc disease M50.90 and Acute n on-recurrent maxillary sinusitis J01.00 [facility] [id number] [place] [address] Sep, Cervical disc disease M50.90 [facility] [address] [facility] [id number] [address] [place] [address] Sep, [facility] [address] [facility] [id number] [address] [place] [address] Sep, Fatigue, unspecified type R5 3.83 and Cough R05 [facility] [address] [address] Aug, Cervical disc disease M50.90 [facility] [address] [facility] [id number] [place] [address] Aug, Sore throat J02.9 ; Canker s ore K12.0 and History of anemia Z86.2 [facility] [address] [address] Jul, Cervical disc disease M50.90 [place] [address] [address] Jun, Cervical disc disease M50.90 [place] [address] [address] Jun, Cervical disc disease M50.90 [place] [address] [address] May, Cervical disc disease M50.90 [place] [address] [address] Apr, Cervical disc disease M50.90 [facility] [address] [address] Apr, [place] [address] [address] Feb, Cervical disc disease M50.90 [facility] [address] [address] January, Cervical disc disease M50.90 [place] [address] [address] Nov, [place] [address] [address] Nov, Cervical disc disease M50.90 [facility] [address] [facility] [id number] [address] [place] [address] Nov, Acute cystitis with hematuri a N30.01 and Dysuria R30.0 [facility] [address] [address] Oct, Cervical disc disease M50.90 and Acute n on-recurrent frontal sinusitis J01.10 [facility] [address] [address] Sep, Neck pain M54.2 [facility] [address] [address] Sep, [facility] [address] [address] Aug, Cervical disc disease M50.90 [place] [address] [address] Jul, [place] [address] [address] Jun, [facility] [address] [address] May, [place] [address] [address] May, Screening for diabetes mellitus Z13.1 ; Chronic fatigue R53.82 and Edema, unspecified type R60.9 [place] [address] [address] Apr, Neck pain M54.2 [facility] [address] [address] Mar, [facility] [address] [address] Mar, Neck pain M54.2 [place] [address] [address] Feb, Cervical disc disease M50.90 [facility] [address] [address] Feb, Cervical disc disease M50.90 [place] [id number] [place] [address] January, [facility] [address] [address] January, [facility] [address] [address] January, Cervical disc disease M50.90 [facility] [address] [address] January, [facility] [address] [address] January, [facility] [address] [address] Dec, Cervical disc disease M50.90 [facility] [address] [address] Nov, Cervical disc disease M50.90 [facility] [address] [address] Oct, Cervical disc disease M50.90 [facility] [address] [address] Sep, Cervical disc disease M50.90 [facility] [address] [id number] Aug, Dental caries K02.9 and Encounter for de ntal examination Z01.20 [facility] [address] [address] Aug, [facility] [address] [address] Aug, [facility] [address] [id number] Aug, Encounter for dental examination Z01.20 [facility] [address] [address] Jul, [facility] [address] [address] Jun, Sinusitis J32.9 and Cervical disc diseas e M50.90 [facility] [id number] [place] [address] Jun, [facility] [id number] [place] [address] 24 May, 2015 [facility] [id number] [place] [address] May, [facility] [id number] [place] [address] May, [facility] [id number] [place] [address] May, [facility] [id number] [place] [address] Apr, Cervical spondylosis without myelopathy 721.0 [facility] [id number] [place] [address] Mar, [facility] [id number] [place] [address] January, Cervical spondylosis without myelopathy 721.0 [facility] [id number] [place] [address] 28 Dec, 2014 [facility] [id number] [place] [address] 14 Dec, 2014 [facility] [id number] [place] [address] Dec, [facility] [id number] [place] [address] Nov, [facility] [id number] [place] [address] Nov, [facility] [id number] [place] [address] Oct, [facility] [id number] [place] [address] Oct, [facility] [id number] [place] [address] Oct, [facility] [address] [facility] [id number] [place] [address] Oct, [facility] [address] [id number] [place] [address] Oct, [facility] [address] [id number] [place] [address] Oct, [facility] [address] [id number] [place] [address] Oct, [facility] [address] [id number] [place] [address] Oct, [facility] [address] [id number] [place] [address] Oct, [facility] [address] [id number] [place] [address] Oct, [facility] [address] [id number] [place] [address] Sep, [facility] [address] [id number] [place] [address] Sep, [facility] [address] [id number] [place] [address] Sep, [facility] [address] [id number] [place] [address] Sep, [facility] [address] [id number] [place] [address] Sep, [facility] [address] [id number] [place] [address] Sep, [facility] [address] [id number] [place] [address] Sep, [facility] [address] [id number] [place] [address] Sep, [facility] [address] [id number] [place] [address] Sep, [facility] [address] [facility] [id number] [place] [address] Aug, [facility] [address] [id number] [place] [address] Aug, [facility] [address] [id number] [place] [address] Aug, [facility] [address] [id number] [place] [address] Aug, [facility] [address] [id number] [place] [address] Jul, [facility] [address] [id number] [place] [address] Jul, [facility] [address] [id number] [place] [address] Jul, [facility] [address] [id number] [place] [address] Jul, [facility] [address] [id number] [place] [address] Jul, [facility] [address] [id number] [place] [address] Jul, [facility] [address] [id number] [place] [address] Jul, [facility] [address] [id number] [place] [address] Jul, [facility] [address] [id number] [place] [address] Jun, [facility] [address] [id number] [place] [address] Jun, [facility] [address] [id number] [place] [address] Jun, [facility] [address] [id number] [place] [address] Jun, [facility] [address] [id number] [place] [address] 16 Jun, 2014 [facility] [address] [facility] [id number] [place] [address] 15 Jun, 2014 [facility] [address] [id number] [place] [address] 15 Jun, 2014 [facility] [address] [id number] [place] [address] 14 Jun, 2014 [facility] [address] [id number] [place] [address] 14 Jun, 2014 [facility] [address] [facility] [id number] [place] [address] Jun, [facility] [address] [id number] [place] [address] Jun, [facility] [address] [id number] [place] [address] 24 May, 2014 [facility] [address] [id number] [place] [address] 24 May, 2014 [facility] [address] [id number] [place] [address] 08 May, 2014 [facility] [address] [id number] [place] [address] May, [facility] [address] [id number] [place] [address] May, [facility] [address] [id number] [place] [address] Apr, [facility] [address] [id number] [place] [address] Apr, [facility] [address] [id number] [place] [address] Apr, [facility] [address] [id number] [place] [address] Apr, [facility] [address] [id number] [place] [address] Apr, [facility] [address] [facility] [id number] [place] [address] Apr, [facility] [address] [id number] [place] [address] Mar, [facility] [address] [id number] [place] [address] Mar, [facility] [address] [id number] [place] [address] Mar, [facility] [address] [facility] [id number] [place] [address] Mar, [facility] [address] [id number] [place] [address] Mar, [facility] [address] [id number] [place] [address] Mar, [facility] [address] [id number] [place] [address] Feb, [facility] [address] [id number] [place] [address] Feb, [facility] [address] [id number] [place] [address] Feb, [facility] [address] [id number] [place] [address] Feb, [facility] [address] [id number] [place] [address] Feb, [facility] [address] [id number] [place] [address] Feb, [facility] [address] [id number] [place] [address] Feb, [facility] [address] [id number] [place] [address] Feb, [facility] [address] [id number] [place] [address] January, [facility] [address] [id number] [place] [address] January, [facility] [address] [id number] [place] [address] January, [facility] [address] [facility] [id number] [place] [address] January, [facility] [address] [id number] [place] [address] January, [facility] [address] [id number] [place] [address] January, [facility] [address] [facility] [id number] [place] [address] January, [facility] [address] [id number] [place] [address] January, [facility] [address] [id number] [place] [address] Dec, [facility] [address] [id number] [place] [address] Dec, [facility] [address] [id number] [place] [address] Dec, [facility] [address] [id number] [place] [address] Dec, [facility] [address] [id number] [place] [address] Dec, [facility] [address] [id number] [place] [address] Dec, [facility] [address] [id number] [place] [address] Nov, [facility] [address] [id number] [place] [address] Nov, [facility] [address] [id number] [place] [address] Nov, [facility] [address] [id number] [place] [address] Nov, [facility] [address] [id number] [place] [address] Nov, [facility] [address] [facility] [id number] [place] [address] Nov, [facility] [address] [facility] [id number] [place] [address] Nov, [facility] [address] [facility] [id number] [place] [address] Nov, [facility] [address] [id number] [place] [address] Oct, [facility] [address] [id number] [place] [address] Oct, [facility] [address] [id number] [place] [address] Sep, [facility] [address] [id number] [place] [address] Sep, [facility] [address] [id number] [place] [address] Sep, [facility] [address] [id number] [place] [address] Sep, [facility] [address] [id number] [place] [address] Aug, [facility] [address] [facility] [id number] [place] [address] Aug, [facility] [address] [id number] [place] [address] Aug, [facility] [address] [id number] [place] [address] Aug, [facility] [id number] [place] [address] Jul, [facility] [address] [facility] [id number] [place] [address] Jul, [facility] [address] [facility] [id number] [place] [address] Jul, [facility] [address] [id number] [place] [address] Jul, [facility] [address] [id number] [place] [address] Jul, [facility] [address] [id number] [place] [address] Jul, [facility] [address] [id number] [place] [address] Jul, [facility] [address] [id number] [place] [address] Jul, [facility] [address] [id number] [place] [address] Jul, [facility] [address] [id number] [place] [address] Jul, [facility] [address] [id number] [place] [address] Jul, [facility] [address] [id number] [place] [address] Jul, [facility] [address] [id number] [place] [address] Jun, [facility] [address] [id number] [place] [address] Jun, [facility] [address] [id number] [place] [address] Jun, [facility] [address] [id number] [place] [address] Jun, [facility] [address] [id number] [place] [address] 16 Jun, 2013 [facility] [address] [id number] [place] [address] 14 Jun, 2013 [facility] [address] [id number] [place] [address] 14 Jun, 2013 [facility] [address] [id number] [place] [address] Jun, [facility] [address] [id number] [place] [address] May, [facility] [address] [id number] [place] [address] May, [facility] [address] [id number] [place] [address] May, [facility] [address] [id number] [place] [address] Apr, [facility] [address] [id number] [place] [address] Apr, [facility] [address] [id number] [place] [address] Mar, [facility] [address] [id number] [place] [address] Mar, [facility] [address] [id number] [place] [address] Feb, [facility] [address] [id number] [place] [address] January, [facility] [address] [id number] [place] [address] January, [facility] [address] [id number] [place] [address] January, [facility] [address] [id number] [place] [address] January, [facility] [address] [id number] [place] [address] January, [facility] [address] [id number] [place] [address] Dec, [facility] [address] [id number] [place] [address] Dec, [facility] [address] [id number] [place] [address] Dec, [facility] [address] [id number] [place] [address] Nov, [facility] [address] [id number] [place] [address] Oct, [facility] [address] [id number] [place] [address] Oct, [facility] [address] [id number] [place] [address] 15 Oct, 2012 [facility] [address] [id number] [place] [address] Sep, [facility] [address] [id number] [place] [address] 16 Sep, 2012 [facility] [address] [id number] [place] [address] 14 Aug, 2012 [facility] [id number] [place] [address] 14 Aug, 2012 [facility] [address] [id number] [place] [address] Aug, [facility] [address] [id number] [place] [address] Aug, [facility] [address] [id number] [place] [address] Jul, [facility] [address] [id number] [place] [address] Jul, [facility] [address] [id number] [place] [address] Jul, [facility] [address] [id number] [place] [address] Jul, [facility] [id number] [place] [address] Jul, [facility] [address] [id number] [place] [address] 15 Jun, 2012 [facility] [id number] [place] [address] 15 Jun, 2012 [facility] [address] [id number] [place] [address] 10 Jun, 2012 [facility] [address] [id number] [place] [address] 10 Jun, 2012 [facility] [address] [id number] [place] [address] 10 May, 2012 [facility] [address] [id number] [place] [address] Apr, [facility] [address] [id number] [place] [address] Apr, [facility] [address] [id number] [place] [address] Apr, [facility] [address] [id number] [place] [address] Apr, [facility] [address] [id number] [place] [address] January, [facility] [address] [id number] [place] [address] January, [facility] [address] [id number] [place] [address] Dec, [facility] [address] [id number] [place] [address] Dec, [facility] [address] [id number] [place] [address] Nov, [facility] [address] [id number] [place] [address] Nov, [facility] [address] [id number] [place] [address] Nov, [facility] [address] [id number] [place] [address] Nov, [facility] [address] [id number] [place] [address] Oct, [facility] [address] [id number] [place] [address] Oct, [facility] [address] [id number] [place] [address] Oct, [facility] [address] [id number] [place] [address] Sep, [facility] [address] [id number] [place] [address] Sep, [facility] [address] [id number] [place] [address] Aug, [facility] [address] [id number] [place] [address] Aug, [facility] [address] [id number] [place] [address] Jul, [facility] [address] [id number] [place] [address] Jul, [facility] [address] [id number] [place] [address] Jul, [facility] [address] [id number] [place] [address] Jun, [facility] [address] [id number] [place] [address] Jun, [facility] [address] [id number] [place] [address] Jun, [facility] [address] [id number] [place] [address] Jun, [facility] [address] [id number] [place] [address] Jun, [facility] [address] [id number] [place] [address] Jun, [facility] [address] [id number] [place] [address] Aug, [facility] [address] [id number] [place] [address] Aug, [facility] [address] [id number] [place] [address] 08 Aug, 2010 [facility] [address] [id number] [place] [address] 29 Jul, 2010 [facility] [address] [id number] [place] [address] Jul, [facility] [address] [id number] [place] [address] Jul, [facility] [address] [id number] [place] [address] 15 Jul, 2010 [facility] [address] [id number] [place] [address] 15 Jul, 2010 [facility] [address] [id number] [place] [address] Jul, [facility] [id number] [place] [address] Jun, [facility] [address] [id number] [place] [address] Apr, [facility] [address] [id number] [place] [address] Feb, [facility] [address] [id number] [place] [address] 10 Oct, 2009 [facility] [address] [id number] [place] [address] Sep, [facility] [address] [id number] [place] [address] Aug, [facility] [address] [id number] [place] [address] Aug, [facility] [id number] [place] [address] 05 Aug, 2009 [facility] [address] [id number] [place] [address] Jul, [facility] [id number] [place] [address] Jun, IMMUNIZATIONS No Known Immunizations SOCIAL HISTORY [...]
--- OUTSIDE RECORDS SUMMARY | 2020-02-22 17:18 | XMS REPORT ---
Author Author Marion CORREA Organization [facility] Address [address] [place] [address] Care Team Providers Care Hand Model Name Role Phone SHABNAM CORREA Unavailable PROBLEMS Type Condition ICD9-CM Code GUW27-OA Code Onset Dates Condition S tatus SNOMED Code Problem Acquired hypothyroidism E03.9 Active 297094824 Problem Gastro-esophageal reflux disease without esophagitis K21.9 Active 466310034 Problem Cervical disc disease M50.90 Active 311374826 Problem Dyspepsia R10.13 Active 649450178 Problem Migraine without aura and without status migrain osus, not intractable G43.009 Active [id number] ALLERGIES No Information ENCOUNTERS Encounter Location Date Diagnosis [facility] [address] [address] Aug, Cervical disc disease M50.90 [facility] [address] [address] Aug, [facility] [address] [address] Jul, Cervical disc disease M50.90 [facility] [address] [address] Jun, Cervical disc disease M50.90 [facility] [address] [address] May, [facility] [address] [address] May, Cervical disc disease M50.90 [facility] [address] [facility] [id number] [place] [address] May, Acute cystitis with hematuri a N30.01 and UTI symptoms R39.9 [facility] [address] [place] [address] May, [facility] [address] [address] Apr, Cervical disc disease M50.90 [facility] [id number] [place] [address] Apr, Cervical disc disease M50.90 ; Gastro-es ophageal reflux disease without esophagitis K21.9 and Sinus headache R51 [facility] [id number] [place] [address] Apr, [facility] [address] [address] Apr, Cervical disc disease M50.90 [facility] [id number] [place] [address] Mar, [facility] [id number] [place] [address] Mar, Cervical disc disease M50.90 [facility] [id number] [place] [address] Feb, [address] [place] [address] Feb, Cervical disc disease M50.[address] [place] [address] January, [facility] [id number] [place] [address] January, Cervical disc disease M50.90 [facility] [id number] [place] [address] January, Cervical disc disease M50.90 [facility] [id number] [place] [address] Dec, Cervical disc disease M50.90 [facility] [id number] [place] [address] Dec, Cervical disc disease M50.90 [facility] [address] [address] Dec, Cervical disc disease M50.90 [facility] [address] [address] Dec, Cervical disc disease M50.90 ; Acquired hypothyroidism E03.9 and Migraine without aura and without status migrainosus, not intractable G43.009 [place] [address] [address] Nov, [facility] [address] [address] Nov, Cervical disc disease M50.90 [place] [address] [address] Oct, Cervical disc disease M50.90 [place] [address] [address] Sep, [facility] [address] [address] Sep, Cervical disc disease M50.90 [place] [address] [address] Aug, Cervical disc disease M50.90 [place] [address] [address] Jul, Cervical disc disease M50.90 [place] [address] [address] Jun, Acute recurrent pansinusitis J01.41 and Cervical disc disease M50.90 [facility] [address] [address] Jun, Cervical disc disease M50.90 [place] [address] [address] May, Cervical disc disease M50.90 [facility] [address] [address] Apr, Cervical disc disease M50.90 [place] [id number] [place] [address] Mar, Cervical disc disease M50.90 [facility] [address] [address] Mar, [facility] [id number] [place] [address] Mar, Cervical disc disease M50.90 [facility] [id number] [place] [address] Feb, Cervical disc disease M50.90 [facility] [id number] [place] [address] January, Cervical disc disease M50.90 [facility] [address] [address] Dec, [facility] [address] [address] Dec, Cervical disc disease M50.90 [facility] [id number] [place] [address] Nov, Cervical disc disease M50.90 [facility] [address] [address] Nov, Cervical disc disease M50.90 [facility] [id number] [place] [address] Oct, Cervical disc disease M50.90 [facility] [address] [address] Oct, Cervical disc disease M50.90 and Acute n on-recurrent maxillary sinusitis J01.00 [facility] [id number] [place] [address] Sep, Cervical disc disease M50.90 [facility] [address] [facility] [id number] [address] [place] [address] Sep, [facility] [address] [facility] [id number] [address] [place] [address] Sep, Fatigue, unspecified type R5 3.83 and Cough R05 [facility] [address] [address] Aug, Cervical disc disease M50.90 [facility] [address] [facility] [id number] [place] [address] Aug, Sore throat J02.9 ; Canker s ore K12.0 and History of anemia Z86.2 [facility] [address] [address] Jul, Cervical disc disease M50.90 [place] [address] [address] Jun, Cervical disc disease M50.90 [place] [address] [address] Jun, Cervical disc disease M50.90 [place] [address] [address] May, Cervical disc disease M50.90 [place] [address] [address] Apr, Cervical disc disease M50.90 [facility] [address] [address] Apr, [place] [address] [address] Feb, Cervical disc disease M50.90 [facility] [address] [address] January, Cervical disc disease M50.90 [place] [address] [address] Nov, [place] [address] [address] Nov, Cervical disc disease M50.90 [facility] [address] [facility] [id number] [address] [place] [address] Nov, Acute cystitis with hematuri a N30.01 and Dysuria R30.0 [facility] [address] [address] Oct, Cervical disc disease M50.90 and Acute n on-recurrent frontal sinusitis J01.10 [facility] [address] [address] Sep, Neck pain M54.2 [facility] [address] [address] Sep, [facility] [address] [address] Aug, Cervical disc disease M50.90 [place] [address] [address] Jul, [place] [address] [address] Jun, [facility] [address] [address] May, [place] [address] [address] May, Screening for diabetes mellitus Z13.1 ; Chronic fatigue R53.82 and Edema, unspecified type R60.9 [place] [address] [address] Apr, Neck pain M54.2 [facility] [address] [address] Mar, [facility] [address] [address] Mar, Neck pain M54.2 [place] [address] [address] Feb, Cervical disc disease M50.90 [facility] [address] [address] Feb, Cervical disc disease M50.90 [place] [id number] [place] [address] January, [facility] [address] [address] January, [facility] [address] [address] January, Cervical disc disease M50.90 [facility] [address] [address] January, [facility] [address] [address] January, [facility] [address] [address] Dec, Cervical disc disease M50.90 [facility] [address] [address] Nov, Cervical disc disease M50.90 [facility] [address] [address] Oct, Cervical disc disease M50.90 [facility] [address] [address] Sep, Cervical disc disease M50.90 [facility] [address] [id number] Aug, Dental caries K02.9 and Encounter for de ntal examination Z01.20 [facility] [address] [address] Aug, [facility] [address] [address] Aug, [facility] [address] [id number] Aug, Encounter for dental examination Z01.20 [facility] [address] [address] Jul, [facility] [address] [address] Jun, Sinusitis J32.9 and Cervical disc diseas e M50.90 [facility] [id number] [place] [address] Jun, [facility] [id number] [place] [address] 24 May, 2015 [facility] [id number] [place] [address] May, [facility] [id number] [place] [address] May, [facility] [id number] [place] [address] May, [facility] [id number] [place] [address] Apr, Cervical spondylosis without myelopathy 721.0 [facility] [id number] [place] [address] Mar, [facility] [id number] [place] [address] January, Cervical spondylosis without myelopathy 721.0 [facility] [id number] [place] [address] 28 Dec, 2014 [facility] [id number] [place] [address] 14 Dec, 2014 [facility] [id number] [place] [address] Dec, [facility] [id number] [place] [address] Nov, [facility] [id number] [place] [address] Nov, [facility] [id number] [place] [address] Oct, [facility] [id number] [place] [address] Oct, [facility] [id number] [place] [address] Oct, [facility] [address] [facility] [id number] [place] [address] Oct, [facility] [address] [id number] [place] [address] Oct, [facility] [address] [id number] [place] [address] Oct, [facility] [address] [id number] [place] [address] Oct, [facility] [address] [id number] [place] [address] Oct, [facility] [address] [id number] [place] [address] Oct, [facility] [address] [id number] [place] [address] Oct, [facility] [address] [id number] [place] [address] Sep, [facility] [address] [id number] [place] [address] Sep, [facility] [address] [id number] [place] [address] Sep, [facility] [address] [id number] [place] [address] Sep, [facility] [address] [id number] [place] [address] Sep, [facility] [address] [id number] [place] [address] Sep, [facility] [address] [id number] [place] [address] Sep, [facility] [address] [id number] [place] [address] Sep, [facility] [address] [id number] [place] [address] Sep, [facility] [address] [facility] [id number] [place] [address] Aug, [facility] [address] [id number] [place] [address] Aug, [facility] [address] [id number] [place] [address] Aug, [facility] [address] [id number] [place] [address] Aug, [facility] [address] [id number] [place] [address] Jul, [facility] [address] [id number] [place] [address] Jul, [facility] [address] [id number] [place] [address] Jul, [facility] [address] [id number] [place] [address] Jul, [facility] [address] [id number] [place] [address] Jul, [facility] [address] [id number] [place] [address] Jul, [facility] [address] [id number] [place] [address] Jul, [facility] [address] [id number] [place] [address] Jul, [facility] [address] [id number] [place] [address] Jun, [facility] [address] [id number] [place] [address] Jun, [facility] [address] [id number] [place] [address] Jun, [facility] [address] [id number] [place] [address] Jun, [facility] [address] [id number] [place] [address] 16 Jun, 2014 [facility] [address] [facility] [id number] [place] [address] 15 Jun, 2014 [facility] [address] [id number] [place] [address] 15 Jun, 2014 [facility] [address] [id number] [place] [address] 14 Jun, 2014 [facility] [address] [id number] [place] [address] 14 Jun, 2014 [facility] [address] [facility] [id number] [place] [address] Jun, [facility] [address] [id number] [place] [address] Jun, [facility] [address] [id number] [place] [address] 24 May, 2014 [facility] [address] [id number] [place] [address] 24 May, 2014 [facility] [address] [id number] [place] [address] 08 May, 2014 [facility] [address] [id number] [place] [address] May, [facility] [address] [id number] [place] [address] May, [facility] [address] [id number] [place] [address] Apr, [facility] [address] [id number] [place] [address] Apr, [facility] [address] [id number] [place] [address] Apr, [facility] [address] [id number] [place] [address] Apr, [facility] [address] [id number] [place] [address] Apr, [facility] [address] [facility] [id number] [place] [address] Apr, [facility] [address] [id number] [place] [address] Mar, [facility] [address] [id number] [place] [address] Mar, [facility] [address] [id number] [place] [address] Mar, [facility] [address] [facility] [id number] [place] [address] Mar, [facility] [address] [id number] [place] [address] Mar, [facility] [address] [id number] [place] [address] Mar, [facility] [address] [id number] [place] [address] Feb, [facility] [address] [id number] [place] [address] Feb, [facility] [address] [id number] [place] [address] Feb, [facility] [address] [id number] [place] [address] Feb, [facility] [address] [id number] [place] [address] Feb, [facility] [address] [id number] [place] [address] Feb, [facility] [address] [id number] [place] [address] Feb, [facility] [address] [id number] [place] [address] Feb, [facility] [address] [id number] [place] [address] January, [facility] [address] [id number] [place] [address] January, [facility] [address] [id number] [place] [address] January, [facility] [address] [facility] [id number] [place] [address] January, [facility] [address] [id number] [place] [address] January, [facility] [address] [id number] [place] [address] January, [facility] [address] [facility] [id number] [place] [address] January, [facility] [address] [id number] [place] [address] January, [facility] [address] [id number] [place] [address] Dec, [facility] [address] [id number] [place] [address] Dec, [facility] [address] [id number] [place] [address] Dec, [facility] [address] [id number] [place] [address] Dec, [facility] [address] [id number] [place] [address] Dec, [facility] [address] [id number] [place] [address] Dec, [facility] [address] [id number] [place] [address] Nov, [facility] [address] [id number] [place] [address] Nov, [facility] [address] [id number] [place] [address] Nov, [facility] [address] [id number] [place] [address] Nov, [facility] [address] [id number] [place] [address] Nov, [facility] [address] [id number] [place] [address] Nov, [facility] [address] [id number] [place] [address] Nov, [facility] [address] [id number] [place] [address] Nov, [facility] [address] [id number] [place] [address] Oct, [facility] [address] [id number] [place] [address] Oct, [facility] [address] [id number] [place] [address] Sep, [facility] [address] [id number] [place] [address] Sep, [facility] [address] [id number] [place] [address] Sep, [facility] [address] [id number] [place] [address] Sep, [facility] [address] [id number] [place] [address] Aug, [facility] [address] [id number] [place] [address] Aug, [facility] [address] [id number] [place] [address] Aug, [facility] [address] [id number] [place] [address] Aug, [facility] [id number] [place] [address] Jul, [facility] [address] [id number] [place] [address] Jul, [facility] [address] [id number] [place] [address] Jul, [facility] [address] [id number] [place] [address] Jul, [facility] [address] [id number] [place] [address] Jul, [facility] [address] [id number] [place] [address] Jul, [facility] [address] [id number] [place] [address] Jul, [facility] [address] [id number] [place] [address] Jul, [facility] [address] [id number] [place] [address] Jul, [facility] [address] [id number] [place] [address] Jul, [facility] [address] [id number] [place] [address] Jul, [facility] [address] [id number] [place] [address] Jul, [facility] [address] [id number] [place] [address] Jun, [facility] [address] [id number] [place] [address] Jun, [facility] [address] [id number] [place] [address] Jun, [facility] [address] [id number] [place] [address] Jun, [facility] [address] [id number] [place] [address] 16 Jun, 2013 [facility] [address] [id number] [place] [address] 14 Jun, 2013 [facility] [address] [id number] [place] [address] 14 Jun, 2013 [facility] [address] [id number] [place] [address] Jun, [facility] [address] [id number] [place] [address] May, [facility] [address] [id number] [place] [address] May, [facility] [address] [id number] [place] [address] May, [facility] [address] [id number] [place] [address] Apr, [facility] [address] [id number] [place] [address] Apr, [facility] [address] [id number] [place] [address] Mar, [facility] [address] [id number] [place] [address] Mar, [facility] [address] [id number] [place] [address] Feb, [facility] [address] [id number] [place] [address] January, [facility] [address] [id number] [place] [address] January, [facility] [address] [id number] [place] [address] January, [facility] [address] [id number] [place] [address] January, [facility] [address] [id number] [place] [address] January, [facility] [address] [id number] [place] [address] Dec, [facility] [address] [id number] [place] [address] Dec, [facility] [address] [id number] [place] [address] Dec, [facility] [address] [id number] [place] [address] Nov, [facility] [address] [id number] [place] [address] Oct, [facility] [address] [id number] [place] [address] Oct, [facility] [address] [id number] [place] [address] 15 Oct, 2012 [facility] [address] [id number] [place] [address] Sep, [facility] [address] [id number] [place] [address] 16 Sep, 2012 [facility] [address] [id number] [place] [address] 14 Aug, 2012 [facility] [id number] [place] [address] 14 Aug, 2012 [facility] [address] [id number] [place] [address] Aug, [facility] [address] [id number] [place] [address] Aug, [facility] [address] [id number] [place] [address] Jul, [facility] [address] [id number] [place] [address] Jul, [facility] [address] [id number] [place] [address] Jul, [facility] [address] [id number] [place] [address] Jul, [facility] [id number] [place] [address] Jul, [facility] [address] [id number] [place] [address] 15 Jun, 2012 [facility] [id number] [place] [address] 15 Jun, 2012 [facility] [address] [id number] [place] [address] 10 Jun, 2012 [facility] [address] [id number] [place] [address] 10 Jun, 2012 [facility] [address] [id number] [place] [address] 10 May, 2012 [facility] [address] [id number] [place] [address] Apr, [facility] [address] [id number] [place] [address] Apr, [facility] [address] [id number] [place] [address] Apr, [facility] [address] [id number] [place] [address] Apr, [facility] [address] [id number] [place] [address] January, [facility] [address] [id number] [place] [address] January, [facility] [address] [id number] [place] [address] Dec, [facility] [address] [id number] [place] [address] Dec, [facility] [address] [id number] [place] [address] Nov, [facility] [address] [id number] [place] [address] Nov, [facility] [address] [id number] [place] [address] Nov, [facility] [address] [id number] [place] [address] Nov, [facility] [address] [id number] [place] [address] Oct, [facility] [address] [id number] [place] [address] Oct, [facility] [address] [id number] [place] [address] Oct, [facility] [address] [id number] [place] [address] Sep, [facility] [address] [id number] [place] [address] Sep, [facility] [address] [id number] [place] [address] Aug, [facility] [address] [id number] [place] [address] Aug, [facility] [address] [id number] [place] [address] Jul, [facility] [address] [id number] [place] [address] Jul, [facility] [address] [id number] [place] [address] Jul, [facility] [address] [id number] [place] [address] Jun, [facility] [address] [id number] [place] [address] Jun, [facility] [address] [id number] [place] [address] Jun, [facility] [address] [id number] [place] [address] Jun, [facility] [address] [id number] [place] [address] Jun, [facility] [address] [id number] [place] [address] Jun, [facility] [address] [id number] [place] [address] Aug, [facility] [address] [id number] [place] [address] Aug, [facility] [address] [id number] [place] [address] 08 Aug, 2010 [facility] [address] [id number] [place] [address] 29 Jul, 2010 [facility] [address] [id number] [place] [address] Jul, [facility] [address] [id number] [place] [address] Jul, [facility] [address] [id number] [place] [address] 15 Jul, 2010 [facility] [address] [id number] [place] [address] 15 Jul, 2010 [facility] [address] [id number] [place] [address] Jul, [facility] [id number] [place] [address] Jun, [facility] [address] [id number] [place] [address] Apr, [facility] [address] [id number] [place] [address] Feb, [facility] [address] [id number] [place] [address] 10 Oct, 2009 [facility] [address] [id number] [place] [address] Sep, [facility] [address] [id number] [place] [address] Aug, [facility] [address] [id number] [place] [address] Aug, [facility] [id number] [place] [address] 05 Aug, 2009 [facility] [address] [id number] [place] [address] Jul, [facility] [id number] [place] [address] Jun, IMMUNIZATIONS No Known Immunizations SOCIAL HISTORY [...]
--- OUTSIDE RECORDS SUMMARY | 2020-02-22 17:19 | XMS REPORT ---
Author Author Marion TRUJILLO Organization [facility] Address [address] [place] [address] Care Team Providers Care Engraver [employer] Name Role Phone ZACKARY TRUJILLO Unavailable PROBLEMS Type Condition ICD9-CM Code ISX87-DE Code Onset Dates Condition S tatus SNOMED Code Problem Acquired hypothyroidism E03.9 Active 613172675 Problem Gastro-esophageal reflux disease without esophagitis K21.9 Active 401055167 Problem Cervical disc disease M50.90 Active 829866699 Problem Dyspepsia R10.13 Active 989705738 Problem Migraine without aura and without status migrain osus, not intractable G43.009 Active [id number] ALLERGIES No Information ENCOUNTERS Encounter Location Date Diagnosis [facility] [id number] [place] [id number] May, [facility] [address] [id number] [address] [place] [address] May, Cervical disc disease M50.90 [facility] [address] [id number] [address] [place] [address] 19 May, 2019 Acute cystitis with hematuri a N30.01 and UTI symptoms R39.9 [facility] [address] [id number] [address] [place] [address] May, [facility] [address] [id number] [address] [place] [address] Apr, Cervical disc disease M50.90 [facility] [address] [id number] [address] [place] [address] Apr, Cervical disc disease M50.90 ; Gastro-esophageal reflux disease without esophagitis K21.9 and Sinus headache R51 [facility] [address] [id number] [address] [place] [address] Apr, [facility] [address] [id number] [address] [place] [address] Apr, Cervical disc disease M50.90 [facility] [address] [id number] [address] [place] [address] Mar, [facility] [address] [id number] [address] [place] [address] Mar, Cervical disc disease M50.90 [facility] [address] [id number] [address] [place] [address] Feb, [address] [phone] Feb, Cervical disc disease M50.[address] [address] January, [facility] [address] [facility] [id number] [address] [place] [address] January, Cervical disc disease M50.90 [facility] [address] [facility] [id number] [address] [place] [address] January, Cervical disc disease M50.90 [facility] [address] [facility] [id number] [address] [place] [address] Dec, Cervical disc disease M50.90 [facility] [address] [id number] [address] [place] [address] Dec, Cervical disc disease M50.90 [facility] [address] [id number] [address] [place] [address] Dec, Cervical disc disease M50.90 [facility] [address] [facility] [id number] [address] [place] [address] Dec, Cervical disc disease M50.90 ; Acquired hypothyroidism E03.9 and Migraine without aura and without status migrainosus, not intractable G43.009 [facility] [address] [id number] [address] [place] [phone] Nov, [facility] [address] [id number] [address] [place] [address] Nov, Cervical disc disease M50.90 [facility] [address] [id number] [address] [place] [address] Oct, Cervical disc disease M50.90 [facility] [address] [id number] [address] [place] [address] Sep, [facility] [address] [id number] [address] [place] [address] Sep, Cervical disc disease M50.90 [facility] [address] [id number] [address] [place] [address] Aug, Cervical disc disease M50.90 [facility] [address] [facility] [id number] [address] [place] [address] Jul, Cervical disc disease M50.90 [facility] [address] [facility] [id number] [address] [place] [address] Jun, Acute recurrent pansinusitis J01.41 and Cervical disc disease M50.90 [facility] [address] [facility] [id number] [address] [place] [address] Jun, Cervical disc disease M50.90 [facility] [address] [facility] [id number] [address] [place] [address] May, Cervical disc disease M50.90 [facility] [address] [facility] [id number] [address] [place] [address] Apr, Cervical disc disease M50.90 [facility] [address] [id number] [address] [place] [address] Mar, Cervical disc disease M50.90 [facility] [address] [facility] [id number] [address] [place] [phone] Mar, [facility] [address] [facility] [id number] [address] [place] [address] Mar, Cervical disc disease M50.90 [facility] [address] [id number] [address] [place] [address] Feb, Cervical disc disease M50.90 [facility] [address] [id number] [address] [place] [address] January, Cervical disc disease M50.90 [facility] [address] [id number] [address] [place] [address] Dec, [facility] [address] [id number] [address] [place] [address] Dec, Cervical disc disease M50.90 [facility] [address] [id number] [address] [place] [address] Nov, Cervical disc disease M50.90 [facility] [address] [id number] [address] [place] [address] Nov, Cervical disc disease M50.90 [facility] [address] [id number] [address] [place] [address] Oct, Cervical disc disease M50.90 [facility] [address] [id number] [address] [place] [address] Oct, Cervical disc disease M50.90 and Acute non-recurrent maxillary sinusitis J01.00 [facility] [address] [id number] [address] [place] [address] Sep, Cervical disc disease M50.90 [facility] [address] [id number] [address] [place] [id number] Sep, [facility] [address] [id number] [address] [place] [address] Sep, Fatigue, unspecified type R5 3.83 and Cough R05 [facility] [address] [id number] [address] [place] [address] Aug, Cervical disc disease M50.90 [facility] [address] [id number] [address] [place] [phone] Aug, Sore throat J02.9 ; Canker s ore K12.0 and History of anemia Z86.2 [facility] [address] [id number] [address] [place] [id number] Jul, Cervical disc disease M50.90 [facility] [address] [id number] [address] [place] [address] Jun, Cervical disc disease M50.90 [facility] [address] [id number] [address] [place] [address] Jun, Cervical disc disease M50.90 [facility] [address] [id number] [address] [place] [address] May, Cervical disc disease M50.90 [facility] [address] [id number] [address] [place] [address] Apr, Cervical disc disease M50.90 [facility] [address] [id number] [address] [place] [address] Apr, [facility] [id number] [place] [address] Feb, Cervical disc disease M50.90 [facility] [address] [id number] [address] [place] [address] January, Cervical disc disease M50.90 [facility] [address] [id number] [address] [place] [id number] Nov, [facility] [address] [id number] [address] [place] [address] Nov, Cervical disc disease M50.[address] [facility] [address] [facility] [id number] [address] [place] [address] Nov, Acute cystitis with hematuri a N30.01 and Dysuria R30.0 [facility] [address] [id number] [address] [place] [address] Oct, Cervical disc disease M50.90 and Acute non-recurrent frontal sinusitis J01.10 [facility] [address] [id number] [address] [place] [address] Sep, Neck pain M54.2 [facility] [address] [id number] [address] [place] [address] Sep, [facility] [address] [facility] [id number] [address] [place] [address] Aug, Cervical disc disease M50.90 [facility] [address] [id number] [address] [place] [phone] Jul, [facility] [address] [id number] [address] [place] [phone] Jun, [facility] [address] [facility] [id number] [address] [place] [address] May, [facility] [address] [facility] [id number] [address] [place] [phone] May, Screening for diabetes blanchei tus Z13.1 ; Chronic fatigue R53.82 and Edema, unspecified type R60.9 [facility] [address] [facility] [id number] [address] [place] [address] Apr, Neck pain M54.2 [facility] [address] [facility] [id number] [address] [place] [phone] Mar, [facility] [address] [facility] [id number] [address] [place] [address] Mar, Neck pain M54.2 [facility] [address] [id number] [address] [place] [id number] Feb, Cervical disc disease M50.90 [facility] [address] [facility] [id number] [address] [place] [address] Feb, Cervical disc disease M50.90 [facility] [address] [facility] [id number] [address] [place] [phone] January, [facility] [address] [id number] [address] [place] [phone] January, [facility] [address] [id number] [address] [place] [address] January, Cervical disc disease M50.90 [facility] [address] [id number] [address] [place] [id number] January, [facility] [address] [id number] [address] [place] [address] January, [facility] [address] [id number] [address] [place] [address] Dec, Cervical disc disease M50.90 [facility] [address] [id number] [address] [place] [address] Nov, Cervical disc disease M50.90 [facility] [address] [id number] [address] [place] [address] Oct, Cervical disc disease M50.90 [facility] [address] [id number] [address] [place] [address] Sep, Cervical disc disease M50.90 [facility] [address] [id number] [address] [place] [id number] Aug, Dental caries K02.9 and Enco unter for dental examination Z01.20 [facility] [address] [id number] [address] [place] [phone] Aug, [facility] [address] [id number] [address] [place] [phone] Aug, [facility] [address] [id number] [address] [place] [id number] Aug, Encounter for dental examina tion Z01.20 [facility] [address] [id number] [address] [place] [id number] Jul, [facility] [address] [id number] [address] [place] [id number] Jun, Sinusitis J32.9 and Cervical disc disease M50.90 [facility] [address] [id number] [address] [place] [phone] Jun, [facility] [address] [id number] [address] [place] [address] May, [facility] [address] [id number] [address] [place] [phone] May, [facility] [address] [id number] [address] [place] [phone] May, [facility] [address] [id number] [address] [place] [address] May, [facility] [address] [id number] [address] [place] [phone] Apr, Cervical spondylosis without myelopathy 721.0 [facility] [address] [id number] [address] [place] [phone] Mar, [facility] [address] [id number] [address] [place] [phone] January, Cervical spondylosis without myelopathy 721.0 [facility] [address] [id number] [address] [place] [phone] Dec, [facility] [address] [id number] [address] [place] [phone] 14 Dec, 2014 [facility] [address] [id number] [address] [place] [phone] 13 Dec, 2014 [facility] [address] [id number] [address] [place] [phone] Nov, [facility] [address] [id number] [address] [place] [phone] Nov, [facility] [address] [id number] [address] [place] [address] Oct, [facility] [address] [id number] [address] [place] [address], [place] [address] Oct, 2014 [facility] [address] [id number] [address] [place] [address], [place] [address] Oct, 2014 [facility] [address] [id number] [address] [place] [address], [place] [address] Oct, 2014 [facility] [address] [id number] [address] [place] [address], [place] [address] Oct, 2014 [facility] [address] [id number] [address] [place] [address], [place] [address] Oct, [facility] [address] [id number] [address] [place] [address], [place] [address] Oct, 2014 [facility] [address] [id number] [address] [place] [address], [place] [address] Oct, [facility] [address] [id number] [address] [place] [address], [place] [address] Oct, [facility] [address] [id number] [address] [place] [address], [place] [address] Oct, [facility] [address] [id number] [address] [place] [address], [place] [address] Sep, [facility] [address] [id number] [address] [place] [id number] Sep, [facility] [address] [id number] [address] [place] [address], [place] [address] Sep, [facility] [address] [id number] [address] [place] [address], [place] [address] Sep, [facility] [address] [id number] [address] [place] [address], [place] [address] Sep, [facility] [address] [id number] [address] [place] [address], [place] [address] Sep, [facility] [address] [id number] [address] [place] [address], [place] [address] Sep, [facility] [address] [id number] [address] [place] [address], [place] [address] Sep, [facility] [address] [id number] [address] [place] [address], [place] [address] Sep, [facility] [address] [id number] [address] [place] [address], [place] [address] Aug, [facility] [address] [id number] [address] [place] [address], [place] [address] Aug, [facility] [address] [id number] [address] [place] [address], [place] [address] Aug, [facility] [address] [id number] [address] [place] [address], [place] [address] Aug, [facility] [address] [id number] [address] [place] [address], [place] [address] Jul, [facility] [address] [id number] [address] [place] [address], [place] [address] Jul, [facility] [address] [id number] [address] [place] [address], [place] [address] Jul, [facility] [address] [id number] [address] [place] [address], [place] [address] Jul, [facility] [address] [id number] [address] [place] [address], [place] [address] Jul, [facility] [address] [id number] [address] [place] [address], [place] [address] Jul, [facility] [address] [id number] [address] [place] [address], [place] [address] Jul, [facility] [address] [id number] [address] [place] [address], [place] [address] Jul, [facility] [address] [id number] [address] [place] [address], [place] [address] Jun, [facility] [address] [id number] [address] [place] [address], [place] [address] 27 Jun, 2014 [facility] [address] [id number] [address] [place] [address], [place] [address] 20 Jun, 2014 [facility] [address] [id number] [address] [place] [address], [place] [address] 20 Jun, 2014 [facility] [address] [id number] [address] [place] [address], [place] [address] 16 Jun, 2014 [facility] [address] [id number] [address] [place] [address], [place] [address] 15 Jun, 2014 [facility] [address] [id number] [address] [place] [address], [place] [address] 15 Jun, 2014 [facility] [address] [id number] [address] [place] [address], [place] [address] 14 Jun, 2014 [facility] [address] [id number] [address] [place] [address], [place] [address] 14 Jun, 2014 [facility] [address] [id number] [address] [place] [address], [place] [address] 11 Jun, 2014 [facility] [address] [id number] [address] [place] [address], [place] [address] 11 Jun, 2014 [facility] [address] [id number] [address] [place] [address], [place] [address] 24 May, 2013 [facility] [address] [id number] [address] [place] [address], [place] [address] 24 Sep, 2013 [facility] [address] [id number] [address] [place] [address], [place] [address] 08 May, 2013 [facility] [address] [id number] [address] [place] [address], [place] [address] 02 Sep, 2013 [facility] [address] [id number] [address] [place] [address], [place] [address] 02 May, 2013 [facility] [address] [id number] [address] [place] [address], [place] [address] Apr, [facility] [address] [id number] [facility] [place] [address] Apr, [facility] [address] [id number] [address] [place] [address], [place] [address] Apr, [facility] [address] [id number] [address] [place] [address], [place] [address] Apr, [facility] [address] [id number] [address] [place] [address], [place] [address] Apr, [facility] [address] [id number] [address] [place] [address], [place] [address] Apr, [facility] [address] [id number] [address] [place] [address], [place] [address] Mar, [facility] [address] [id number] [address] [place] [address], [place] [address] Mar, [facility] [address] [id number] [address] [place] [address], [place] [address] Mar, [facility] [address] [id number] [address] [place] [address], [place] [address] Mar, [facility] [address] [id number] [address] [place] [address], [place] [address] Mar, [facility] [address] [id number] [address] [place] [address], [place] [address] Mar, [facility] [address] [id number] [address] [place] [address], [place] [address] Feb, [facility] [address] [id number] [address] [place] [address], [place] [address] Feb, [facility] [address] [id number] [address] [place] [address], [place] [address] Feb, [facility] [address] [id number] [address] [place] [address], [place] [address] Feb, [facility] [address] [id number] [address] [place] [address], [place] [address] Feb, [facility] [address] [id number] [address] [place] [address], [place] [address] Feb, [facility] [address] [id number] [address] [place] [address], [place] [address] Feb, [facility] [address] [id number] [address] [place] [address], [place] [address] Feb, [facility] [address] [id number] [address] [place] [address], [place] [address] January, [facility] [address] [id number] [address] [place] [address], [place] [address] January, [facility] [address] [id number] [address] [place] [address], [place] [address] January, [facility] [address] [id number] [address] [place] [address], [place] [address] January, [facility] [address] [id number] [address] [place] [address], [place] [address] January, [facility] [address] [id number] [address] [place] [address], [place] [address] January, [facility] [address] [id number] [address] [place] [address], [place] [address] January, [facility] [address] [id number] [address] [place] [address], [place] [address] January, [facility] [address] [id number] [address] [place] [address], [place] [address] Dec, [facility] [address] [id number] [address] [place] [address], [place] [address] Dec, [facility] [address] [id number] [address] [place] [address], [place] [address] Dec, [facility] [address] [id number] [address] [place] [address], [place] [address] Dec, [facility] [address] [id number] [facility] [place] [address] Dec, [facility] [address] [id number] [facility] [place] [address] Dec, [facility] [address] [id number] [facility] [place] [address] Nov, [facility] [address] [id number] [address] [place] [address], [place] [address] Nov, [facility] [address] [id number] [facility] [place] [address] Nov, [facility] [address] [id number] [address] [place] [address], [place] [address] Nov, [facility] [address] [id number] [address] [place] [address], [place] [address] Nov, [facility] [address] [id number] [address] [place] [address], [place] [address] Nov, [facility] [address] [id number] [address] [place] [address], [place] [address] Nov, [facility] [address] [id number] [address] [place] [address], [place] [address] Nov, [facility] [address] [id number] [address] [place] [address], [place] [address] Oct, [facility] [address] [id number] [address] [place] [address], [place] [address] Oct, [facility] [address] [id number] [address] [place] [address], [place] [address] Sep, [facility] [address] [id number] [address] [place] [address], [place] [address] Sep, [facility] [address] [id number] [address] [place] [address], [place] [address] Sep, [facility] [address] [id number] [address] [place] [address], [place] [address] Sep, [facility] [address] [id number] [address] [place] [address], [place] [address] Aug, [facility] [address] [id number] [address] [place] [address], [place] [address] Aug, [facility] [address] [id number] [address] [place] [address], [place] [address] Aug, [facility] [address] [id number] [address] [place] [address], [place] [address] Aug, [facility] [address] [id number] [address] [place] [address], [place] [address] Jul, [facility] [address] [id number] [address] [place] [address], [place] [address] Jul, [facility] [address] [id number] [address] [place] [address], [place] [address] Jul, [facility] [address] [id number] [address] [place] [address], [place] [address] Jul, [facility] [address] [id number] [address] [place] [address], [place] [address] Jul, [facility] [address] [id number] [address] [place] [address], [place] [address] Jul, [facility] [address] [id number] [address] [place] [address], [place] [address] Jul, [facility] [address] [id number] [address] [place] [address], [place] [address] Jul, [facility] [address] [id number] [address] [place] [address], [place] [address] Jul, [facility] [address] [id number] [address] [place] [address], [place] [address] Jul, [facility] [address] [id number] [address] [place] [id number] Jul, [facility] [address] [id number] [address] [place] [address], [place] [address] Jul, [facility] [address] [id number] [address] [place] [address], [place] [address] Jun, [facility] [address] [id number] [address] [place] [address], [place] [address] Jun, [facility] [address] [id number] [address] [place] [address], [place] [address] Jun, [facility] [address] [id number] [address] [place] [address], [place] [address] Jun, [facility] [address] [id number] [address] [place] [address], [place] [address] 16 Jun, 2013 [facility] [address] [id number] [address] [place] [address], [place] [address] Jun, [facility] [address] [id number] [address] [place] [address], [place] [address] 14 Jun, 2013 [facility] [address] [id number] [address] [place] [address], [place] [address] Jun, [facility] [address] [id number] [address] [place] [address], [place] [address] 15 May, 2013 [facility] [address] [id number] [address] [place] [address], [place] [address] 05 May, 2013 [facility] [address] [id number] [address] [place] [address], [place] [address] 04 May, 2013 [facility] [address] [id number] [address] [place] [address], [place] [address] Apr, [facility] [address] [id number] [address] [place] [address], [place] [address] Apr, [facility] [address] [id number] [address] [place] [address], [place] [address] Mar, [facility] [address] [id number] [address] [place] [address], [place] [address] Mar, [facility] [address] [id number] [address] [place] [address], [place] [address] Feb, [facility] [address] [id number] [address] [place] [address], [place] [address] January, [facility] [address] [id number] [address] [place] [address], [place] [address] January, [facility] [address] [id number] [address] [place] [address], [place] [address] January, [facility] [address] [id number] [address] [place] [address], [place] [address] January, [facility] [address] [id number] [address] [place] [address], [place] [address] January, [facility] [address] [id number] [address] [place] [address], [place] [address] Dec, [facility] [address] [id number] [address] [place] [address], [place] [address] Dec, [facility] [address] [id number] [address] [place] [address], [place] [address] Dec, [facility] [address] [id number] [address] [place] [address], [place] [address] Nov, [facility] [address] [id number] [address] [place] [address], [place] [address] Oct, [facility] [address] [id number] [address] [place] [address], [place] [address] Oct, [facility] [address] [id number] [address] [place] [address], [place] [address] Oct, [facility] [address] [id number] [address] [place] [address], [place] [address] Sep, [facility] [address] [id number] [address] [place] [address], [place] [address] Sep, [facility] [address] [id number] [address] [place] [address], [place] [address] 14 Aug, 2012 [facility] [address] [id number] [address] [place] [address], [place] [address] 14 Aug, 2012 [facility] [address] [id number] [address] [place] [address], [place] [address] 11 Aug, 2012 [facility] [address] [id number] [address] [place] [address], [place] [address] 11 Aug, 2012 [facility] [address] [id number] [address] [place] [address], [place] [address] Jul, [facility] [address] [id number] [address] [place] [address], [place] [address] Jul, [facility] [address] [id number] [address] [place] [address], [place] [address] Jul, [facility] [address] [id number] [address] [place] [address], [place] [address] Jul, [facility] [address] [id number] [address] [place] [address], [place] [address] 09 Jul, 2012 [facility] [address] [id number] [address] [place] [address], [place] [address] 15 Jun, 2012 [facility] [address] [id number] [address] [place] [address], [place] [address] 15 Jun, 2012 [facility] [address] [id number] [address] [place] [address], [place] [address] 10 Jun, 2012 [facility] [address] [id number] [address] [place] [address], [place] [address] 10 Jun, 2012 [facility] [address] [id number] [address] [place] [address], [place] [address] 10 May, 2012 [facility] [address] [id number] [address] [place] [address], [place] [address] 13 Apr, 2012 [facility] [address] [id number] [address] [place] [address], [place] [address] Apr, [facility] [address] [id number] [facility] [place] [address] Apr, [facility] [address] [id number] [address] [place] [address], [place] [address] Apr, [facility] [address] [id number] [address] [place] [address], [place] [address] January, [facility] [address] [id number] [address] [place] [address], [place] [address] January, [facility] [address] [id number] [address] [place] [address], [place] [address] Dec, [facility] [address] [id number] [address] [place] [address], [place] [address] Dec, [facility] [address] [id number] [address] [place] [address], [place] [address] Nov, [facility] [address] [id number] [address] [place] [address], [place] [address] Nov, [facility] [address] [id number] [address] [place] [address], [place] [address] Nov, [facility] [address] [id number] [address] [place] [address], [place] [address] Nov, [facility] [address] [id number] [address] [place] [address], [place] [address] Oct, [facility] [address] [id number] [address] [place] [address], [place] [address] Oct, [facility] [address] [id number] [address] [place] [address], [place] [address] Oct, [facility] [address] [id number] [address] [place] [address], [place] [address] Sep, [facility] [address] [id number] [address] [place] [address], [place] [address] Sep, [facility] [address] [id number] [address] [place] [address], [place] [address] Aug, [facility] [address] [id number] [address] [place] [address], [place] [address] Aug, [facility] [address] [id number] [address] [place] [address], [place] [address] Jul, [facility] [address] [id number] [address] [place] [address], [place] [address] Jul, [facility] [address] [id number] [address] [place] [address], [place] [address] Jul, [facility] [address] [id number] [address] [place] [address], [place] [address] Jun, [facility] [address] [id number] [address] [place] [address], [place] [address] 24 Jun, 2011 [facility] [address] [id number] [address] [place] [address], [place] [address] Jun, [facility] [address] [id number] [address] [place] [address], [place] [address] Jun, [facility] [address] [id number] [address] [place] [address], [place] [address] Jun, [facility] [address] [id number] [address] [place] [address], [place] [address] Jun, [facility] [address] [id number] [address] [place] [address], [place] [address] Aug, [facility] [address] [id number] [address] [place] [address], [place] [address] Aug, [facility] [address] [id number] [address] [place] [address], [place] [address] Aug, [facility] [address] [id number] [address] [place] [address], [place] [address] Jul, [facility] [address] [id number] [address] [place] [address], [place] [address] Jul, [facility] [address] [id number] [address] [place] [address] Jul, [facility] [address] [id number] [address] [place] [phone] Jul, [facility] [address] [id number] [address] [place] [address] Jul, [facility] [address] [id number] [address] [place] [address] Jul, [facility] [address] [id number] [address] [place] [phone] Jun, [facility] [address] [id number] [address] [place] [id number] Apr, [facility] [address] [id number] [address] [place] [id number] Feb, [facility] [address] [id number] [address] [place] [id number] Oct, [facility] [address] [id number] [address] [place] [id number] Sep, [facility] [address] [id number] [address] [place] [id number] Aug, [facility] [address] [id number] [address] [place] [id number] Aug, [facility] [address] [id number] [address] [place] [phone] Aug, [facility] [address] [id number] [address] [place] [id number] Jul, [facility] [address] [id number] [address] [place] [phone] Jun, IMMUNIZATIONS No Known Immunizations SOCIAL HISTORY Never Assessed REASON FOR VISIT PLAN OF CARE VITAL SIGNS Height 65 in 2014-08-13 Weight 175.31 lbs 2014-08-13 Temperature 99 degrees Fahrenheit 2014-08-13 Heart Rate 90 bpm 2014-08-13 Respiratory Rate 20 2014-08-13 Blood pressure systolic 152 mmHg 2014-08-13 Blood pressure diastolic 82 mmHg 2014-08-13 MEDICATIONS Unknown Medications RESULTS No Results PROCEDURES Procedure Date Ordered Result Body Site X-RAY EXAM OF NECK SPINE Aug 13, 2014 INSTRUCTIONS MEDICATIONS ADMINISTERED No Known Medications [...]
--- OUTSIDE RECORDS SUMMARY | 2020-02-22 17:19 | XMS REPORT ---
Author Author Marion SILVANYA Organization [facility] Address [address] [place] [address] Care Team Providers Care Vp Legal Affairs Name Role Phone JONELLERosalee JOSE Unavailable PROBLEMS Type Condition ICD9-CM Code ARZ50-WX Code Onset Dates Condition S tatus SNOMED Code Problem Acquired hypothyroidism E03.9 Active 331869995 Problem Gastro-esophageal reflux disease without esophagitis K21.9 Active 167552623 Problem Cervical disc disease M50.90 Active 946952351 Problem Dyspepsia R10.13 Active 150826909 Problem Migraine without aura and without status migrain osus, not intractable G43.009 Active [id number] ALLERGIES No Information ENCOUNTERS Encounter Location Date Diagnosis [place] [address] [place] [id number] [place] [address] May, [place] [address] [address] Apr, Cervical disc disease M50.90 [place] [address] [place] [id number] [address] [place] [address] Apr, Cervical disc disease M50.90 ; Gastro-esophageal reflux disease without esophagitis K21.9 and Sinus headache R51 [place] [id number] [place] [id number] [address] [place] [address] Apr, [place] [address] [place] [id number] [address] [place] [address] Apr, Cervical disc disease M50.90 [facility] [address] [place] [id number] [address] [place] [address] Mar, [place] [address] [place] [id number] [address] [place] [address] Mar, Cervical disc disease M50.90 [facility] [address] [facility] [id number] [address] [place] [address] Feb, [address] [place] [address] Feb, Cervical disc disease M50.[address] [place] [address] January, [facility] [address] [facility] [id number] [address] [place] [address] January, Cervical disc disease M50.90 [facility] [address] [facility] [id number] [address] [place] [address] January, Cervical disc disease M50.90 [facility] [address] [facility] [id number] [address] [place] [address] Dec, Cervical disc disease M50.90 [facility] [address] [facility] [id number] [address] [place] [address] Dec, Cervical disc disease M50.90 [facility] [address] [facility] [id number] [address] [place] [address] Dec, Cervical disc disease M50.90 [facility] [address] [facility] [id number] [address] [place] [address] Dec, Cervical disc disease M50.90 ; Acquired hypothyroidism E03.9 and Migraine without aura and without status migrainosus, not intractable G43.009 [facility] [address] [facility] [id number] [address] [place] [address] Nov, [facility] [address] [facility] [id number] [address] [place] [address] Nov, Cervical disc disease M50.90 [facility] [address] [facility] [id number] [address] [place] [address] Oct, Cervical disc disease M50.90 [facility] [address] [facility] [id number] [address] [place] [address] Sep, [facility] [address] [id number] [address] [place] [address] Sep, Cervical disc disease M50.90 [facility] [address] [id number] [address] [place] [address] Aug, Cervical disc disease M50.90 [facility] [address] [id number] [address] [place] [address] Jul, Cervical disc disease M50.90 [facility] [address] [id number] [address] [place] [address] Jun, Acute recurrent pansinusitis J01.41 and Cervical disc disease M50.90 [facility] [address] [id number] [address] [place] [address] Jun, Cervical disc disease M50.90 [facility] [address] [id number] [address] [place] [address] May, Cervical disc disease M50.90 [facility] [address] [id number] [address] [place] [address] Apr, Cervical disc disease M50.90 [facility] [address] [id number] [address] [place] [address] Mar, Cervical disc disease M50.90 [facility] [address] [id number] [address] [place] [address] Mar, [facility] [address] [id number] [address] [place] [address] Mar, Cervical disc disease M50.90 [facility] [address] [id number] [address] [place] [address] Feb, Cervical disc disease M50.90 [facility] [address] [facility] [id number] [address] [place] [address] January, Cervical disc disease M50.90 [facility] [address] [facility] [id number] [address] [place] [address] Dec, [facility] [address] [facility] [id number] [address] [place] [address] Dec, Cervical disc disease M50.90 [facility] [address] [facility] [id number] [address] [place] [address] Nov, Cervical disc disease M50.90 [facility] [address] [facility] [id number] [address] [place] [address] Nov, Cervical disc disease M50.90 [facility] [address] [facility] [id number] [address] [place] [address] Oct, Cervical disc disease M50.90 [facility] [address] [place] [id number] [place] [address] Oct, Cervical disc disease M50.90 and Acute non-recurrent maxillary sinusitis J01.00 [facility] [address] [address] Sep, Cervical disc disease M50.90 [facility] [address] [place] [id number] [address] [place] [address] Sep, [facility] [address] [place] [id number] [place] [address] Sep, Fatigue, unspecified type R5 3.83 and Cough R05 [facility] [address] [place] [id number] [address] [place] [address] Aug, Cervical disc disease M50.90 [facility] [address] [place] [id number] [address] [place] [address] Aug, Sore throat J02.9 ; Canker s ore K12.0 and History of anemia Z86.2 [facility] [address] [place] [id number] [address] [place] [address] Jul, Cervical disc disease M50.90 [facility] [address] [place] [id number] [address] [place] [address] Jun, Cervical disc disease M50.90 [facility] [address] [id number] [address] [place] [address] Jun, Cervical disc disease M50.90 [facility] [address] [id number] [address] [place] [address] May, Cervical disc disease M50.90 [facility] [address] [id number] [address] [place] [address] Apr, Cervical disc disease M50.90 [facility] [address] [id number] [address] [place] [address] Apr, [facility] [address] [id number] [address] [place] [address] Feb, Cervical disc disease M50.90 [facility] [address] [facility] [id number] [address] [place] [address] January, Cervical disc disease M50.90 [facility] [address] [facility] [id number] [address] [place] [address] Nov, [facility] [address] [facility] [id number] [address] [place] [address] Nov, Cervical disc disease M50.90 [facility] [address] [facility] [id number] [address] [place] [address] Nov, Acute cystitis with hematuri a N30.01 and Dysuria R30.0 [facility] [address] [facility] [id number] [address] [place] [address] Oct, Cervical disc disease M50.90 and Acute non-recurrent frontal sinusitis J01.10 [facility] [address] [facility] [id number] [address] [place] [address] Sep, Neck pain M54.2 [facility] [address] [facility] [id number] [address] [place] [address] Sep, [facility] [address] [facility] [id number] [address] [place] [address] Aug, Cervical disc disease M50.90 [facility] [address] [id number] [address] [place] [address] Jul, [facility] [address] [facility] [id number] [address] [place] [address] Jun, [facility] [address] [facility] [id number] [address] [place] [address] May, [facility] [address] [facility] [id number] [address] [place] [address] May, Screening for diabetes blanchei tus Z13.1 ; Chronic fatigue R53.82 and Edema, unspecified type R60.9 [facility] [address] [id number] [address] [place] [address] Apr, Neck pain M54.2 [facility] [address] [facility] [id number] [address] [place] [address] Mar, [facility] [address] [id number] [address] [place] [address] Mar, Neck pain M54.2 [facility] [address] [facility] [id number] [address] [place] [address] Feb, Cervical disc disease M50.90 [facility] [address] [facility] [id number] [address] [place] [address] Feb, Cervical disc disease M50.90 [facility] [address] [facility] [id number] [address] [place] [address] January, [facility] [address] [facility] [id number] [address] [place] [address] January, [facility] [address] [facility] [id number] [address] [place] [address] January, Cervical disc disease M50.90 [facility] [address] [facility] [id number] [address] [place] [address] January, [facility] [address] [facility] [id number] [address] [place] [address] January, [facility] [address] [id number] [address] [place] [address] Dec, Cervical disc disease M50.90 [facility] [address] [id number] [address] [place] [address] Nov, Cervical disc disease M50.90 [facility] [address] [id number] [address] [place] [address] Oct, Cervical disc disease M50.90 [facility] [address] [id number] [address] [place] [address] Sep, Cervical disc disease M50.90 [facility] [address] [id number] [address] [place] [id number] Aug, Dental caries K02.9 and Enco unter for dental examination Z01.20 [facility] [address] [id number] [address] [place] [address] Aug, [facility] [address] [id number] [address] [place] [address] Aug, [facility] [address] [id number] [address] [place] [address] [id number] Aug, Encounter for dental examina tion Z01.20 [facility] [address] [id number] [address] [place] [address] Jul, [facility] [address] [id number] [address] [place] [address] Jun, Sinusitis J32.9 and Cervical disc disease M50.90 [facility] [address] [id number] [address] [place] [address] Jun, [facility] [address] [id number] [address] [place] [address] 24 May, 2015 [facility] [address] [id number] [address] [place] [address] May, [facility] [address] [id number] [address] [place] [address] May, [facility] [address] [id number] [address] [place] [address] May, [facility] [address] [id number] [address] [place] [address] Apr, Cervical spondylosis without myelopathy 721.0 [facility] [address] [id number] [address] [place] [address] Mar, [facility] [address] [id number] [address] [place] [address] January, Cervical spondylosis without myelopathy 721.0 [facility] [address] [id number] [address] [place] [address] Dec, [facility] [address] [id number] [address] [place] [address] Dec, [facility] [address] [id number] [address] [place] [address] Dec, [facility] [address] [id number] [address] [place] [address] Nov, [facility] [address] [id number] [address] [place] [address] Nov, [facility] [address] [id number] [address] [place] [address] Oct, [facility] [address] [id number] [address] [place] [address] Oct, [facility] [address] [id number] [address] [place] [address] Oct, [facility] [address] [id number] [address] [place] [address] Oct, [facility] [address] [id number] [address] [place] [address] Oct, [facility] [address] [id number] [address] [place] [address], [place] [address] Oct, [facility] [address] [id number] [address] [place] [address], [place] [address] Oct, [facility] [address] [id number] [address] [place] [address], [place] [address] Oct, [facility] [address] [id number] [address] [place] [address], [place] [address] Oct, [facility] [address] [id number] [address] [place] [address], [place] [address] Oct, [facility] [address] [id number] [address] [place] [address], [place] [address] Sep, [facility] [address] [id number] [address] [place] [address], [place] [address] Sep, [facility] [address] [id number] [address] [place] [address], [place] [address] Sep, [facility] [address] [id number] [address] [place] [address], [place] [address] Sep, [facility] [address] [id number] [address] [place] [address], [place] [address] Sep, [facility] [address] [id number] [address] [place] [address], [place] [address] Sep, [facility] [address] [id number] [address] [place] [address] Sep, [facility] [address] [id number] [address] [place] [address] Sep, [facility] [address] [id number] [address] [place] [address] Sep, [facility] [address] [id number] [address] [place] [address] Aug, [facility] [address] [id number] [address] [place] [address], [place] [address] Aug, [facility] [address] [id number] [address] [place] [address], [place] [address] Aug, [facility] [address] [id number] [address] [place] [address], [place] [address] Aug, [facility] [address] [id number] [address] [place] [address], [place] [address] Jul, [facility] [address] [id number] [address] [place] [address], [place] [address] Jul, [facility] [address] [id number] [address] [place] [address], [place] [address] Jul, [facility] [address] [id number] [address] [place] [address], [place] [address] Jul, [facility] [address] [id number] [address] [place] [address], [place] [address] Jul, [facility] [address] [id number] [address] [place] [address], [place] [address] Jul, [facility] [address] [id number] [address] [place] [address], [place] [address] Jul, [facility] [address] [id number] [address] [place] [address], [place] [address] Jul, [facility] [address] [id number] [address] [place] [address], [place] [address] Jun, [facility] [address] [id number] [address] [place] [address], [place] [address] Jun, [facility] [address] [id number] [address] [place] [address], [place] [address] Jun, [facility] [address] [id number] [address] [place] [address], [place] [address] Jun, [facility] [address] [id number] [address] [place] [address], [place] [address] 16 Jun, 2014 [facility] [address] [id number] [address] [place] [address], [place] [address] 15 Jun, 2014 [facility] [address] [id number] [address] [place] [address], [place] [address] 15 Jun, 2014 [facility] [address] [id number] [address] [place] [address], [place] [address] 14 Jun, 2014 [facility] [address] [id number] [address] [place] [address], [place] [address] 14 Jun, 2014 [facility] [address] [id number] [address] [place] [address], [place] [address] Jun, [facility] [address] [id number] [address] [place] [address], [place] [address] Jun, [facility] [address] [id number] [address] [place] [address], [place] [address] 24 May, 2014 [facility] [address] [id number] [address] [place] [address], [place] [address] 24 May, 2014 [facility] [address] [id number] [address] [place] [address], [place] [address] 08 May, 2014 [facility] [address] [id number] [address] [place] [address], [place] [address] 02 May, 2014 [facility] [address] [id number] [address] [place] [address], [place] [address] May, [facility] [address] [id number] [address] [place] [address], [place] [address] Apr, [facility] [address] [id number] [address] [place] [address], [place] [address] Apr, [facility] [address] [id number] [address] [place] [address], [place] [address] Apr, [facility] [address] [id number] [address] [place] [address], [place] [address] Apr, [facility] [address] [id number] [facility] [place] [address] Apr, [facility] [address] [id number] [address] [place] [address], [place] [address] Apr, [facility] [address] [id number] [address] [place] [address], [place] [address] Mar, [facility] [address] [id number] [address] [place] [address], [place] [address] Mar, [facility] [address] [id number] [address] [place] [address], [place] [address] Mar, [facility] [address] [id number] [address] [place] [address], [place] [address] Mar, [facility] [address] [id number] [address] [place] [address], [place] [address] Mar, [facility] [address] [id number] [address] [place] [address], [place] [address] Mar, [facility] [address] [id number] [address] [place] [address], [place] [address] Feb, [facility] [address] [id number] [address] [place] [address], [place] [address] Feb, [facility] [address] [id number] [address] [place] [address], [place] [address] Feb, [facility] [address] [id number] [address] [place] [address], [place] [address] Feb, [facility] [address] [id number] [address] [place] [address], [place] [address] Feb, [facility] [address] [id number] [address] [place] [address], [place] [address] Feb, [facility] [address] [id number] [address] [place] [address], [place] [address] Feb, [facility] [address] [id number] [address] [place] [address], [place] [address] Feb, [facility] [address] [id number] [address] [place] [address], [place] [address] January, [facility] [address] [id number] [address] [place] [address], [place] [address] January, [facility] [address] [id number] [address] [place] [address], [place] [address] January, [facility] [address] [id number] [address] [place] [address], [place] [address] January, [facility] [address] [id number] [address] [place] [address], [place] [address] January, [facility] [address] [id number] [address] [place] [address], [place] [address] January, [facility] [address] [id number] [address] [place] [address], [place] [address] January, [facility] [address] [id number] [address] [place] [address], [place] [address] January, [facility] [address] [id number] [address] [place] [address], [place] [address] Dec, [facility] [address] [id number] [address] [place] [address], [place] [address] Dec, [facility] [address] [id number] [address] [place] [address], [place] [address] Dec, [facility] [address] [id number] [address] [place] [address], [place] [address] Dec, [facility] [address] [id number] [address] [place] [address], [place] [address] Dec, [facility] [address] [id number] [address] [place] [address], [place] [address] Dec, [facility] [address] [id number] [address] [place] [address], [place] [address] Nov, [facility] [address] [id number] [address] [place] [address], [place] [address] Nov, [facility] [address] [id number] [address] [place] [address], [place] [address] Nov, [facility] [address] [id number] [address] [place] [address], [place] [address] Nov, [facility] [address] [id number] [address] [place] [address], [place] [address] Nov, [facility] [address] [id number] [address] [place] [address], [place] [address] Nov, [facility] [address] [id number] [address] [place] [address], [place] [address] Nov, [facility] [address] [id number] [address] [place] [address], [place] [address] Nov, [facility] [address] [id number] [address] [place] [address], [place] [address] Oct, [facility] [address] [id number] [address] [place] [address], [place] [address] Oct, [facility] [address] [id number] [address] [place] [address], [place] [address] Sep, [facility] [address] [id number] [address] [place] [address], [place] [address] Sep, [facility] [address] [id number] [address] [place] [address], [place] [address] Sep, [facility] [address] [id number] [address] [place] [address], [place] [address] Sep, [facility] [address] [id number] [address] [place] [address], [place] [address] Aug, [facility] [address] [id number] [address] [place] [address], [place] [address] Aug, [facility] [address] [id number] [address] [place] [address], [place] [address] Aug, [facility] [address] [id number] [address] [place] [address], [place] [address] Aug, [facility] [address] [id number] [address] [place] [address], [place] [address] Jul, [facility] [address] [id number] [address] [place] [address], [place] [address] Jul, [facility] [address] [id number] [address] [place] [address], [place] [address] Jul, [facility] [address] [id number] [address] [place] [address], [place] [address] Jul, [facility] [address] [id number] [address] [place] [address], [place] [address] Jul, [facility] [address] [id number] [address] [place] [address], [place] [address] Jul, [facility] [address] [id number] [address] [place] [address], [place] [address] Jul, [facility] [address] [id number] [address] [place] [address], [place] [address] Jul, [facility] [address] [id number] [address] [place] [address], [place] [address] Jul, [facility] [address] [id number] [address] [place] [address], [place] [address] Jul, [facility] [address] [id number] [address] [place] [address], [place] [address] Jul, [facility] [address] [id number] [address] [place] [address], [place] [address] Jul, [facility] [address] [id number] [address] [place] [address], [place] [address] Jun, [facility] [address] [id number] [address] [place] [address], [place] [address] Jun, [facility] [address] [id number] [address] [place] [address], [place] [address] Jun, [facility] [address] [id number] [address] [place] [address], [place] [address] 21 Jun, 2013 [facility] [address] [id number] [address] [place] [address], [place] [address] 16 Jun, 2013 [facility] [address] [id number] [address] [place] [address], [place] [address] 14 Jun, 2013 [facility] [address] [id number] [address] [place] [address], [place] [address] 14 Jun, 2013 [facility] [address] [id number] [address] [place] [address], [place] [address] Jun, [facility] [address] [id number] [address] [place] [address], [place] [address] 15 May, 2013 [facility] [address] [id number] [address] [place] [address], [place] [address] 05 May, 2013 [facility] [address] [id number] [address] [place] [address], [place] [address] 04 May, 2013 [facility] [address] [id number] [address] [place] [address], [place] [address] Apr, [facility] [address] [id number] [address] [place] [address], [place] [address] Apr, [facility] [address] [id number] [address] [place] [id number] Mar, [facility] [address] [id number] [address] [place] [address] Mar, [facility] [address] [id number] [address] [place] [address], [place] [address] Feb, [facility] [address] [id number] [address] [place] [address], [place] [address] January, [facility] [address] [id number] [address] [place] [address], [place] [address] January, [facility] [address] [id number] [address] [place] [address], [place] [address] 14 Jan, 2013 [facility] [address] [id number] [address] [place] [address], [place] [address] January, [facility] [address] [id number] [address] [place] [address], [place] [address] January, [facility] [address] [id number] [address] [place] [address], [place] [address] 29 Dec, 2012 [facility] [address] [id number] [address] [place] [address], [place] [address] 17 Dec, 2012 [facility] [address] [id number] [address] [place] [address], [place] [address] Dec, [facility] [address] [id number] [address] [place] [address], [place] [address] Nov, [facility] [address] [id number] [address] [place] [address], [place] [address] 27 Oct, 2012 [facility] [address] [id number] [address] [place] [address], [place] [address] 18 Oct, 2012 [facility] [address] [id number] [address] [place] [address], [place] [address] 15 Oct, 2012 [facility] [address] [id number] [address] [place] [address], [place] [address] 18 Sep, 2012 [facility] [address] [id number] [address] [place] [address], [place] [address] 16 Sep, 2012 [facility] [address] [id number] [address] [place] [address], [place] [address] 14 Aug, 2012 [facility] [address] [id number] [address] [place] [address], [place] [address] 14 Aug, 2012 [facility] [address] [id number] [address] [place] [address], [place] [address] 11 Aug, 2012 [facility] [address] [id number] [address] [place] [address], [place] [address] Aug, [facility] [address] [id number] [address] [place] [address], [place] [address] Jul, [facility] [address] [id number] [address] [place] [address], [place] [address] Jul, [facility] [address] [id number] [address] [place] [address], [place] [address] Jul, [facility] [address] [id number] [address] [place] [address], [place] [address] Jul, [facility] [address] [id number] [address] [place] [address], [place] [address] Jul, [facility] [address] [id number] [address] [place] [address], [place] [address] Jun, [facility] [address] [id number] [address] [place] [address], [place] [address] Jun, [facility] [address] [id number] [address] [place] [address], [place] [address] Jun, [facility] [address] [id number] [address] [place] [address], [place] [address] Jun, [facility] [address] [id number] [address] [place] [phone] May, [facility] [address] [id number] [address] [place] [phone] Apr, [facility] [address] [id number] [address] [place] [address] Apr, [facility] [address] [id number] [address] [place] [address], [place] [address] Apr, [facility] [address] [id number] [address] [place] [address], [place] [address] Apr, [facility] [address] [id number] [address] [place] [address], [place] [address] January, [facility] [address] [id number] [address] [place] [id number] January, [facility] [address] [id number] [address] [place] [address], [place] [address] Dec, [facility] [address] [id number] [address] [place] [address], [place] [address] Dec, [facility] [address] [id number] [address] [place] [address], [place] [address] Nov, [facility] [address] [id number] [address] [place] [address], [place] [address] Nov, [facility] [address] [id number] [address] [place] [address], [place] [address] Nov, [facility] [address] [id number] [address] [place] [address], [place] [address] Nov, [facility] [address] [id number] [address] [place] [address], [place] [address] Oct, [facility] [address] [id number] [address] [place] [address], [place] [address] Oct, [facility] [address] [id number] [address] [place] [address], [place] [address] Oct, [facility] [address] [id number] [address] [place] [address], [place] [address] Sep, [facility] [address] [id number] [address] [place] [address], [place] [address] Sep, [facility] [address] [id number] [address] [place] [address], [place] [address] Aug, [facility] [address] [id number] [address] [place] [address], [place] [address] Aug, [facility] [address] [id number] [address] [place] [address], [place] [address] Jul, [facility] [address] [id number] [address] [place] [address], [place] [address] Jul, [facility] [address] [id number] [address] [place] [address], [place] [address] 04 Jul, 2011 [facility] [address] [id number] [address] [place] [address], [place] [address] Jun, [facility] [address] [id number] [address] [place] [address], [place] [address] Jun, [facility] [address] [id number] [address] [place] [address], [place] [address] Jun, [facility] [address] [id number] [address] [place] [address], [place] [address] Jun, [facility] [address] [id number] [address] [place] [address], [place] [address] Jun, [facility] [address] [id number] [address] [place] [address], [place] [address] Jun, [facility] [address] [id number] [address] [place] [address], [place] [address] Aug, [facility] [address] [id number] [address] [place] [address], [place] [address] Aug, [facility] [address] [id number] [address] [place] [address], [place] [address] Aug, [facility] [address] [id number] [address] [place] [address], [place] [address] Jul, [facility] [address] [id number] [address] [place] [address], [place] [address] Jul, [facility] [address] [id number] [address] [place] [address], [place] [address] Jul, [facility] [address] [id number] [address] [place] [address], [place] [address] Jul, [facility] [address] [id number] [address] [place] [address], [place] [address] 15 Jul, 2010 [facility] [address] [id number] [address] [address] Jul, [facility] [address] [id number] [address] [place] [id number] Jun, [facility] [address] [id number] [address] [place] [address] Apr, [facility] [address] [id number] [address] [place] [address] Feb, [facility] [address] [id number] [address] [place] [address] Oct, [facility] [address] [id number] [address] [place] [address] Sep, [facility] [address] [id number] [address] [place] [phone] Aug, [facility] [address] [id number] [address] [place] [address] Aug, [facility] [address] [id number] [address] [place] [address] Aug, [facility] [address] [id number] [address] [place] [id number] Jul, [facility] [address] [id number] [address] [place] [id number] Jun, IMMUNIZATIONS No Known Immunizations SOCIAL HISTORY [...]
--- OUTSIDE RECORDS SUMMARY | 2020-02-22 17:19 | XMS REPORT ---
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 Name Role Phone ZACKARY TRUJILLO Unavailable PROBLEMS Type Condition ICD9-CM Code [id number] Code Onset Dates Condition S tatus SNOMED Code Problem Acquired hypothyroidism E03.9 Active 697427671 Problem Gastro-esophageal reflux disease without esophagitis K21.9 Active 134447867 Problem Cervical disc disease M50.90 Active 536108493 Problem Dyspepsia R10.13 Active 192493326 Problem Migraine without aura and without status migrain osus, not intractable G43.009 Active [id number] ALLERGIES No Information ENCOUNTERS Encounter Location Date Diagnosis [facility] [address] [facility] [id number] [address] [place] [address] May, Acute cystitis with hematuri a N30.01 and UTI symptoms R39.9 [facility] [address] [facility] [id number] [address] [place] [address] May, [facility] [address] [facility] [id number] [address] [place] [address] Apr, Cervical disc disease M50.90 [facility] [address] [facility] [id number] [address] [place] [address] Apr, Cervical disc disease M50.90 ; Gastro-esophageal reflux disease without esophagitis K21.9 and Sinus headache R51 [facility] [address] [facility] [id number] [address] [place] [address] Apr, [facility] [address] [facility] [id number] [address] [place] [address] Apr, Cervical disc disease M50.90 [facility] [address] [facility] [id number] [address] [place] [address] Mar, [facility] [address] [id number] [address] [place] [address] Mar, Cervical disc disease M50.90 [facility] [address] [id number] [address] [place] [address] Feb, [address] [id number] Feb, Cervical disc disease M50.[address] [address] January, [facility] [address] [id number] [address] [place] [address] January, Cervical disc disease M50.90 [facility] [address] [id number] [address] [place] [address] January, Cervical disc disease M50.90 [facility] [address] [id number] [address] [place] [address] Dec, Cervical disc disease M50.90 [facility] [address] [id number] [address] [place] [address] Dec, Cervical disc disease M50.90 [facility] [address] [id number] [address] [place] [address] Dec, Cervical disc disease M50.90 [facility] [address] [facility] [id number] [address] [place] [address] Dec, Cervical disc disease M50.90 ; Acquired hypothyroidism E03.9 and Migraine without aura and without status migrainosus, not intractable G43.009 [facility] [address] [id number] [address] [place] [address] Nov, [facility] [address] [id number] [address] [place] [address] Nov, Cervical disc disease M50.90 [facility] [address] [id number] [address] [place] [address] Oct, Cervical disc disease M50.90 [facility] [address] [id number] [address] [place] [address] Sep, [facility] [address] [facility] [id number] [address] [place] [address] Sep, Cervical disc disease M50.90 [facility] [address] [id number] [address] [place] [address] Aug, Cervical disc disease M50.90 [facility] [address] [id number] [address] [place] [address] Jul, Cervical disc disease M50.90 [facility] [address] [id number] [address] [place] [address] Jun, Acute recurrent pansinusitis J01.41 and Cervical disc disease M50.90 [facility] [address] [facility] [id number] [address] [place] [address] Jun, Cervical disc disease M50.90 [facility] [address] [id number] [address] [place] [address] May, Cervical disc disease M50.90 [facility] [address] [facility] [id number] [address] [place] [address] Apr, Cervical disc disease M50.90 [facility] [address] [id number] [address] [place] [address] Mar, Cervical disc disease M50.90 [facility] [address] [id number] [address] [place] [address] Mar, [facility] [address] [facility] [id number] [address] [place] [address] Mar, Cervical disc disease M50.90 [facility] [address] [facility] [id number] [address] [place] [address] Feb, Cervical disc disease M50.90 [facility] [address] [facility] [id number] [address] [place] [address] January, Cervical disc disease M50.90 [facility] [address] [facility] [id number] [address] [place] [address] Dec, [facility] [address] [facility] [id number] [address] [place] [address] Dec, Cervical disc disease M50.90 [facility] [address] [place] [id number] [address] [place] [address] Nov, Cervical disc disease M50.90 [facility] [address] [facility] [id number] [address] [place] [address] Nov, Cervical disc disease M50.90 [facility] [address] [place] [id number] [place] [address] Oct, Cervical disc disease M50.90 [facility] [address] [place] [id number] [place] [address] Oct, Cervical disc disease M50.90 and Acute non-recurrent maxillary sinusitis J01.00 [facility] [address] [place] [id number] [address] [place] [address] Sep, Cervical disc disease M50.[address] [facility] [address] [place] [id number] [address] [place] [address] Sep, [facility] [address] [place] [id number] [address] [place] [address] Sep, Fatigue, unspecified type R5 3.83 and Cough R05 [facility] [address] [place] [id number] [address] [place] [address] Aug, Cervical disc disease M50.90 [facility] [address] [id number] [address] [place] [address] Aug, Sore throat J02.9 ; Canker s ore K12.0 and History of anemia Z86.2 [facility] [address] [place] [id number] [address] [place] [address] Jul, Cervical disc disease M50.90 [facility] [address] [id number] [address] [place] [address] Jun, Cervical disc disease M50.90 [facility] [address] [id number] [address] [place] [address] Jun, Cervical disc disease M50.90 [facility] [address] [id number] [address] [place] [address] May, Cervical disc disease M50.90 [facility] [address] [id number] [address] [place] [address] Apr, Cervical disc disease M50.90 [facility] [address] [id number] [address] [place] [address] Apr, [facility] [address] [facility] [id number] [address] [place] [address] Feb, Cervical disc disease M50.90 [facility] [address] [facility] [id number] [address] [place] [address] January, Cervical disc disease M50.90 [facility] [address] [facility] [id number] [address] [place] [address] Nov, [facility] [address] [facility] [id number] [address] [place] [address] Nov, Cervical disc disease M50.90 [facility] [address] [facility] [id number] [address] [place] [address] Nov, Acute cystitis with hematuri a N30.01 and Dysuria R30.0 [facility] [address] [facility] [id number] [address] [place] [address] Oct, Cervical disc disease M50.90 and Acute non-recurrent frontal sinusitis J01.10 [facility] [address] [facility] [id number] [address] [place] [address] Sep, Neck pain M54.2 [facility] [address] [id number] [address] [place] [address] Sep, [facility] [address] [id number] [address] [place] [address] Aug, Cervical disc disease M50.90 [facility] [address] [id number] [address] [place] [address] Jul, [facility] [address] [id number] [address] [place] [address] Jun, [facility] [address] [id number] [address] [place] [address] May, [facility] [address] [id number] [address] [place] [address] May, Screening for diabetes emilio tus Z13.1 ; Chronic fatigue R53.82 and Edema, unspecified type R60.9 [facility] [address] [id number] [address] [place] [address] Apr, Neck pain M54.2 [facility] [address] [id number] [address] [place] [address] Mar, [facility] [address] [id number] [address] [place] [address] Mar, Neck pain M54.2 [facility] [address] [id number] [address] [place] [address] Feb, Cervical disc disease M50.90 [facility] [address] [id number] [address] [place] [address] Feb, Cervical disc disease M50.90 [facility] [address] [id number] [address] [place] [address] January, [facility] [address] [id number] [address] [place] [address] January, [facility] [address] [id number] [address] [place] [address] January, Cervical disc disease M50.90 [facility] [address] [id number] [address] [place] [address] January, [facility] [address] [id number] [address] [place] [address] January, [facility] [address] [id number] [address] [place] [address] Dec, Cervical disc disease M50.90 [facility] [address] [id number] [address] [place] [address] Nov, Cervical disc disease M50.90 [facility] [address] [id number] [address] [place] [address] Oct, Cervical disc disease M50.90 [facility] [address] [id number] [address] [place] [address] Sep, Cervical disc disease M50.90 [facility] [address] [id number] [address] [place] [id number] Aug, Dental caries K02.9 and Enco unter for dental examination Z01.20 [facility] [address] [id number] [address] [place] [address] Aug, [facility] [address] [id number] [address] [place] [address] Aug, [facility] [address] [id number] [address] [place] [id number] 08 Aug, 2015 Encounter for dental examina tion Z01.20 [facility] [address] [id number] [address] [place] [id number] Jul, [facility] [address] [id number] [address] [place] [address] Jun, Sinusitis J32.9 and Cervical disc disease M50.90 [facility] [address] [id number] [address] [place] [address] Jun, [facility] [address] [id number] [address] [place] [address], [place] [address] 24 May, 2015 [facility] [address] [id number] [address] [place] [address], [place] [address] 23 May, 2015 [facility] [address] [id number] [address] [place] [address], [place] [address] 22 May, 2015 [facility] [address] [id number] [address] [place] [phone] May, [facility] [address] [id number] [address] [place] [address] Apr, Cervical spondylosis without myelopathy 721.0 [facility] [address] [id number] [address] [place] [id number] Mar, [facility] [address] [id number] [address] [place] [address] January, Cervical spondylosis without myelopathy 721.0 [facility] [address] [id number] [address] [place] [phone] Dec, [facility] [address] [id number] [address] [place] [phone] Dec, [facility] [address] [id number] [address] [place] [address] Dec, [facility] [address] [id number] [address] [place] [address] Nov, [facility] [address] [id number] [address] [place] [address] Nov, [facility] [address] [id number] [address] [place] [id number] Oct, [facility] [address] [id number] [address] [place] [address] Oct, [facility] [address] [id number] [address] [place] [phone] Oct, [facility] [address] [id number] [address] [place] [address], [place] [address] Oct, 2014 [facility] [address] [id number] [address] [place] [address], [place] [address] Oct, 2014 [facility] [address] [id number] [address] [place] [address], [place] [address] Oct, 2014 [facility] [address] [id number] [address] [place] [address], [place] [address] Oct, 2014 [facility] [address] [id number] [address] [place] [address], [place] [address] Oct, 2014 [facility] [address] [id number] [address] [place] [address], [place] [address] Oct, 2014 [facility] [address] [id number] [address] [place] [address], [place] [address] Oct, 2014 [facility] [address] [id number] [address] [place] [address], [place] [address] Sep, [facility] [address] [id number] [address] [place] [address], [place] [address] Sep, [facility] [address] [id number] [address] [place] [address], [place] [address] Sep, [facility] [address] [id number] [address] [place] [phone] Sep, [facility] [address] [id number] [address] [place] [address] Sep, [facility] [address] [id number] [address] [place] [address], [place] [address] Sep, [facility] [address] [id number] [address] [place] [address], [place] [address] Sep, [facility] [address] [id number] [address] [place] [address], [place] [address] Sep, [facility] [address] [id number] [address] [place] [address] Sep, [facility] [address] [id number] [address] [place] [address], [place] [address] Aug, [facility] [address] [id number] [address] [place] [address], [place] [address] Aug, [facility] [address] [id number] [address] [place] [address], [place] [address] Aug, [facility] [address] [id number] [address] [place] [address], [place] [address] Aug, [facility] [address] [id number] [address] [place] [address], [place] [address] Jul, [facility] [address] [id number] [address] [place] [address], [place] [address] Jul, [facility] [address] [id number] [address] [place] [address], [place] [address] Jul, [facility] [address] [id number] [address] [place] [address], [place] [address] Jul, [facility] [address] [id number] [address] [place] [address], [place] [address] Jul, [facility] [address] [id number] [address] [place] [address], [place] [address] Jul, [facility] [address] [id number] [address] [place] [address], [place] [address] Jul, [facility] [address] [id number] [address] [place] [address] Jul, [facility] [address] [id number] [address] [place] [address], [place] [address] Jun, [facility] [address] [id number] [address] [place] [address], [place] [address] Jun, [facility] [address] [id number] [address] [place] [address], [place] [address] Jun, [facility] [address] [id number] [address] [place] [address], [place] [address] 20 Jun, 2014 [facility] [address] [id number] [address] [place] [address], [place] [address] 16 Jun, 2014 [facility] [address] [id number] [address] [place] [address], [place] [address] 15 Jun, 2014 [facility] [address] [id number] [address] [place] [address], [place] [address] 15 Jun, 2014 [facility] [address] [id number] [address] [place] [address], [place] [address] 14 Jun, 2014 [facility] [address] [id number] [address] [place] [address], [place] [address] 14 Jun, 2014 [facility] [address] [id number] [address] [place] [address], [place] [address] 11 Jun, 2014 [facility] [address] [id number] [address] [place] [address], [place] [address] 11 Jun, 2014 [facility] [address] [id number] [address] [place] [address], [place] [address] 24 May, 2014 [facility] [address] [id number] [address] [place] [address], [place] [address] 24 May, 2014 [facility] [address] [id number] [address] [place] [address], [place] [address] 08 May, 2014 [facility] [address] [id number] [address] [place] [address], [place] [address] May, [facility] [address] [id number] [address] [place] [address], [place] [address] May, [facility] [address] [id number] [address] [place] [address], [place] [address] Apr, [facility] [address] [id number] [address] [place] [address], [place] [address] Apr, [facility] [address] [id number] [address] [place] [address], [place] [address] Apr, [facility] [address] [id number] [address] [place] [address] Apr, [facility] [address] [id number] [address] [place] [address], [place] [address] Apr, [facility] [address] [id number] [address] [place] [address], [place] [address] Apr, [facility] [address] [id number] [address] [place] [address], [place] [address] Mar, [facility] [address] [id number] [address] [place] [address], [place] [address] Mar, [facility] [address] [id number] [address] [place] [address], [place] [address] Mar, [facility] [address] [id number] [address] [place] [address], [place] [address] Mar, [facility] [address] [id number] [address] [place] [address], [place] [address] Mar, [facility] [address] [id number] [address] [place] [address], [place] [address] Mar, [facility] [address] [id number] [address] [place] [address], [place] [address] Feb, [facility] [address] [id number] [address] [place] [address], [place] [address] Feb, [facility] [address] [id number] [address] [place] [address], [place] [address] Feb, [facility] [address] [id number] [address] [place] [address], [place] [address] Feb, [facility] [address] [id number] [address] [place] [address], [place] [address] Feb, [facility] [address] [id number] [address] [place] [address], [place] [address] Feb, [facility] [address] [id number] [address] [place] [address], [place] [address] Feb, [facility] [address] [id number] [address] [place] [address], [place] [address] Feb, [facility] [address] [id number] [address] [place] [address], [place] [address] January, [facility] [address] [id number] [address] [place] [address], [place] [address] January, [facility] [address] [id number] [address] [place] [address], [place] [address] January, [facility] [address] [id number] [address] [place] [address], [place] [address] January, [facility] [address] [id number] [address] [place] [address], [place] [address] January, [facility] [address] [id number] [address] [place] [address], [place] [address] January, [facility] [address] [id number] [address] [place] [address], [place] [address] January, [facility] [address] [id number] [address] [place] [address], [place] [address] January, [facility] [address] [id number] [address] [place] [address], [place] [address] Dec, [facility] [address] [id number] [address] [place] [address], [place] [address] Dec, [facility] [address] [id number] [address] [place] [address], [place] [address] Dec, [facility] [address] [id number] [address] [place] [address], [place] [address] Dec, [facility] [address] [id number] [address] [place] [address], [place] [address] Dec, [facility] [address] [id number] [address] [place] [address], [place] [address] Dec, [facility] [address] [id number] [address] [place] [address] Nov, [facility] [address] [id number] [facility] [place] [address] Nov, [facility] [address] [id number] [facility] [place] [address] Nov, [facility] [address] [id number] [address] [place] [address], [place] [address] Nov, [facility] [address] [id number] [address] [place] [address], [place] [address] Nov, [facility] [address] [id number] [address] [place] [address], [place] [address] Nov, [facility] [address] [id number] [address] [place] [address], [place] [address] Nov, [facility] [address] [id number] [address] [place] [address], [place] [address] Nov, [facility] [address] [id number] [address] [place] [address], [place] [address] Oct, [facility] [address] [id number] [address] [place] [address], [place] [address] Oct, [facility] [address] [id number] [address] [place] [address], [place] [address] Sep, [facility] [address] [id number] [address] [place] [address], [place] [address] Sep, [facility] [address] [id number] [address] [place] [address], [place] [address] Sep, [facility] [address] [id number] [address] [place] [address], [place] [address] Sep, [facility] [address] [id number] [address] [place] [address], [place] [address] Aug, [facility] [address] [id number] [address] [place] [address], [place] [address] Aug, [facility] [address] [id number] [address] [place] [address], [place] [address] Aug, [facility] [address] [id number] [address] [place] [address], [place] [address] Aug, [facility] [address] [id number] [address] [place] [address], [place] [address] Jul, [facility] [address] [id number] [address] [place] [address] Jul, [facility] [address] [id number] [address] [place] [address], [place] [address] Jul, [facility] [address] [id number] [address] [place] [address], [place] [address] Jul, [facility] [address] [id number] [address] [place] [address], [place] [address] Jul, [facility] [address] [id number] [address] [place] [address], [place] [address] Jul, [facility] [address] [id number] [address] [place] [address] Jul, [facility] [address] [id number] [address] [place] [address], [place] [address] Jul, [facility] [address] [id number] [address] [place] [address] Jul, [facility] [address] [id number] [address] [place] [address] Jul, [facility] [address] [id number] [address] [place] [address], [place] [address] Jul, [facility] [address] [id number] [address] [place] [address] Jul, [facility] [address] [id number] [address] [place] [address], [place] [address] Jun, [facility] [address] [id number] [address] [place] [address], [place] [address] Jun, [facility] [address] [id number] [address] [place] [address], [place] [address] Jun, [facility] [address] [id number] [address] [place] [address], [place] [address] Jun, [facility] [address] [id number] [address] [place] [address], [place] [address] 16 Jun, 2013 [facility] [address] [id number] [address] [place] [address], [place] [address] 14 Jun, 2013 [facility] [address] [id number] [address] [place] [address], [place] [address] 14 Jun, 2013 [facility] [address] [id number] [address] [place] [address], [place] [address] Jun, [facility] [address] [id number] [address] [place] [address], [place] [address] 15 May, 2013 [facility] [address] [id number] [address] [place] [address], [place] [address] 05 May, 2013 [facility] [address] [id number] [address] [place] [address], [place] [address] 04 May, 2013 [facility] [address] [id number] [address] [place] [address], [place] [address] Apr, [facility] [address] [id number] [address] [place] [address], [place] [address] Apr, [facility] [address] [id number] [address] [place] [address], [place] [address] Mar, [facility] [address] [id number] [address] [place] [address], [place] [address] Mar, [facility] [address] [id number] [address] [place] [address], [place] [address] Feb, [facility] [address] [id number] [address] [place] [address], [place] [address] January, [facility] [address] [id number] [address] [place] [address], [place] [address] January, [facility] [address] [id number] [address] [place] [address], [place] [address] January, [facility] [address] [id number] [address] [place] [address], [place] [address] January, [facility] [address] [id number] [address] [place] [address], [place] [address] January, [facility] [address] [id number] [address] [place] [address], [place] [address] Dec, [facility] [address] [id number] [address] [place] [address], [place] [address] Dec, [facility] [address] [id number] [address] [place] [address], [place] [address] Dec, [facility] [address] [id number] [address] [place] [address], [place] [address] Nov, [facility] [address] [id number] [address] [place] [address], [place] [address] Oct, [facility] [address] [id number] [address] [place] [address], [place] [address] 18 Oct, 2012 [facility] [address] [id number] [address] [place] [address], [place] [address] Oct, [facility] [address] [id number] [address] [place] [address], [place] [address] Sep, [facility] [address] [id number] [address] [place] [address], [place] [address] 16 Sep, 2012 [facility] [address] [id number] [address] [place] [address], [place] [address] 14 Aug, 2012 [facility] [address] [id number] [address] [place] [address], [place] [address] Aug, [facility] [address] [id number] [address] [place] [address], [place] [address] 11 Aug, 2012 [facility] [address] [id number] [address] [place] [address], [place] [address] Aug, [facility] [address] [id number] [address] [place] [address], [place] [address] Jul, [facility] [address] [id number] [address] [place] [address], [place] [address] Jul, [facility] [address] [id number] [address] [place] [address], [place] [address] Jul, [facility] [address] [id number] [address] [place] [address], [place] [address] Jul, [facility] [address] [id number] [address] [place] [address], [place] [address] Jul, [facility] [address] [id number] [address] [place] [address], [place] [address] 15 Jun, 2012 [facility] [address] [id number] [address] [place] [address], [place] [address] 15 Jun, 2012 [facility] [address] [id number] [address] [place] [address], [place] [address] Jun, [facility] [address] [id number] [address] [place] [address], [place] [address] Jun, [facility] [address] [id number] [address] [place] [address], [place] [address] May, [facility] [address] [id number] [address] [place] [address], [place] [address] Apr, [facility] [address] [id number] [address] [place] [address], [place] [address] Apr, [facility] [address] [id number] [address] [place] [address], [place] [address] Apr, [facility] [address] [id number] [address] [place] [address], [place] [address] Apr, [facility] [address] [id number] [address] [place] [address], [place] [address] January, [facility] [address] [id number] [address] [place] [address], [place] [address] January, [facility] [address] [id number] [address] [place] [address], [place] [address] Dec, [facility] [address] [id number] [address] [place] [address], [place] [address] Dec, [facility] [address] [id number] [address] [place] [address], [place] [address] Nov, [facility] [address] [id number] [address] [place] [address], [place] [address] Nov, [facility] [address] [id number] [address] [place] [address], [place] [address] Nov, [facility] [address] [id number] [address] [place] [address], [place] [address] Nov, [facility] [address] [id number] [address] [place] [address], [place] [address] Oct, [facility] [address] [id number] [address] [place] [address], [place] [address] Oct, [facility] [address] [id number] [address] [place] [address], [place] [address] Oct, [facility] [address] [id number] [address] [place] [address], [place] [address] Sep, [facility] [address] [id number] [address] [place] [address], [place] [address] Sep, [facility] [address] [id number] [address] [place] [address], [place] [address] Aug, [facility] [address] [id number] [address] [place] [address], [place] [address] Aug, [facility] [address] [id number] [address] [place] [address] 15 Jul, 2011 [facility] [address] [id number] [address] [place] [address], [place] [address] Jul, [facility] [address] [id number] [address] [place] [address], [place] [address] 04 Jul, 2011 [facility] [address] [id number] [address] [place] [address], [place] [address] Jun, [facility] [address] [id number] [address] [place] [address], [place] [address] 24 Jun, 2011 [facility] [address] [id number] [address] [place] [address], [place] [address] Jun, [facility] [address] [id number] [address] [place] [address], [place] [address] Jun, [facility] [address] [id number] [address] [place] [address], [place] [address] Jun, [facility] [address] [id number] [address] [place] [address], [place] [address] Jun, [facility] [address] [id number] [address] [place] [address], [place] [address] Aug, [facility] [address] [id number] [address] [place] [address], [place] [address] Aug, [facility] [address] [id number] [address] [place] [address], [place] [address] Aug, [facility] [address] [id number] [address] [place] [address], [place] [address] Jul, [facility] [address] [id number] [address] [place] [address], [place] [address] Jul, [facility] [address] [id number] [address] [place] [address], [place] [address] Jul, [facility] [address] [id number] [address] [place] [address], [place] [address] 15 Jul, 2010 [facility] [address] [id number] [address] [place] [address] 15 Jul, 2010 [facility] [address] [id number] [address] [place] [address] 08 Jul, 2010 [facility] [address] [id number] [address] [place] [address] Jun, [facility] [address] [id number] [address] [place] [address] Apr, [facility] [address] [id number] [address] [place] [address] Feb, [facility] [address] [id number] [address] [place] [address] Oct, [facility] [address] [id number] [address] [place] [address] Sep, [facility] [address] [id number] [address] [place] [address] Aug, [facility] [address] [id number] [address] [place] [address] Aug, [facility] [address] [id number] [address] [place] [address] Aug, [facility] [address] [id number] [address] [place] [address] Jul, [facility] [address] [id number] [address] [place] [address] Jun, IMMUNIZATIONS No Known Immunizations SOCIAL HISTORY Never Assessed REASON FOR VISIT PLAN OF CARE VITAL SIGNS Height 65 in 2014-10-15 Weight 174 lbs 2014-10-15 Temperature 99.7 degrees Fahrenheit 2014-10-15 Heart Rate 80 bpm 2014-10-15 Respiratory Rate 18 2014-10-15 Blood pressure systolic 138 mmHg 2014-10-15 Blood pressure diastolic 70 mmHg 2014-10-15 MEDICATIONS No Known Medications RESULTS No Results [...]
--- OUTSIDE RECORDS SUMMARY | 2020-02-22 17:19 | XMS REPORT ---
Author Author Marion CORREA Organization 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 Name Role Phone SHABNAM CORREA Unavailable PROBLEMS Type Condition ICD9-CM Code JCH28-[place] Code Onset Dates Condition S tatus SNOMED Code Problem Acquired hypothyroidism E03.9 Active 887972933 Problem Gastro-esophageal reflux disease without esophagitis K21.9 Active 974339625 Problem Cervical disc disease M50.90 Active 532947724 Problem Dyspepsia R10.13 Active 868573144 Problem Migraine without aura and without status migrain osus, not intractable G43.009 Active [id number] ALLERGIES No Information ENCOUNTERS Encounter Location Date Diagnosis [place] [address] [place] [id number] [address] [place] [address] Apr, Cervical disc disease M50.90 [place] [address] [place] [id number] [address] [place] [address] Apr, Cervical disc disease M50.90 ; Gastro-esophageal reflux disease without esophagitis K21.9 and Sinus headache R51 [place] [id number] [place] [address] Apr, [place] [address] [place] [id number] [address] [place] [address] Apr, Cervical disc disease M50.90 [place] [id number] [place] [id number] [address] [place] [address] Mar, [place] [address] [place] [id number] [address] [place] [address] Mar, Cervical disc disease M50.90 [place] [address] [place] [id number] [address] [place] [address] Feb, [facility] [address] [place] [address] Feb, Cervical disc disease M50.90 [facility] [address] [place] [address] January, [facility] [address] [id number] [address] [place] [address] January, Cervical disc disease M50.90 [facility] [address] [id number] [address] [place] [address] January, Cervical disc disease M50.90 [facility] [address] [id number] [address] [place] [address] Dec, Cervical disc disease M50.90 [facility] [address] [id number] [address] [place] [address] Dec, Cervical disc disease M50.90 [facility] [address] [id number] [address] [place] [address] Dec, Cervical disc disease M50.90 [facility] [address] [id number] [address] [place] [address] Dec, Cervical disc disease M50.90 ; Acquired hypothyroidism E03.9 and Migraine without aura and without status migrainosus, not intractable G43.009 [facility] [address] [id number] [address] [place] [address] Nov, [facility] [address] [id number] [address] [place] [address] Nov, Cervical disc disease M50.90 [facility] [address] [id number] [address] [place] [phone] Oct, Cervical disc disease M50.90 [facility] [address] [id number] [address] [place] [address] Sep, [facility] [address] [id number] [address] [place] [address] Sep, Cervical disc disease M50.90 [facility] [address] [id number] [address] [place] [address] Aug, Cervical disc disease M50.90 [facility] [address] [id number] [address] [place] [address] Jul, Cervical disc disease M50.90 [facility] [address] [id number] [address] [place] [address] Jun, Acute recurrent pansinusitis J01.41 and Cervical disc disease M50.90 [facility] [address] [id number] [address] [place] [address] Jun, Cervical disc disease M50.90 [facility] [address] [id number] [address] [place] [address] May, Cervical disc disease M50.90 [facility] [address] [id number] [address] [place] [address] Apr, Cervical disc disease M50.90 [facility] [address] [id number] [address] [place] [address] Mar, Cervical disc disease M50.90 [facility] [address] [id number] [address] [place] [address] Mar, [facility] [address] [id number] [address] [place] [address] Mar, Cervical disc disease M50.90 [facility] [address] [id number] [address] [place] [address] Feb, Cervical disc disease M50.90 [facility] [address] [id number] [address] [place] [address] January, Cervical disc disease M50.90 [facility] [address] [id number] [address] [place] [address] Dec, [facility] [address] [id number] [address] [place] [address] Dec, Cervical disc disease M50.90 [facility] [address] [facility] [id number] [address] [place] [address] Nov, Cervical disc disease M50.90 [facility] [address] [facility] [id number] [address] [place] [address] Nov, Cervical disc disease M50.90 [facility] [address] [facility] [id number] [address] [place] [address] Oct, Cervical disc disease M50.90 [facility] [address] [facility] [id number] [address] [place] [address] Oct, Cervical disc disease M50.90 and Acute non-recurrent maxillary sinusitis J01.00 [place] [address] [facility] [id number] [address] [place] [address] Sep, Cervical disc disease M50.90 [facility] [address] [place] [id number] [place] [address] Sep, [facility] [address] [place] [id number] [place] [address] Sep, Fatigue, unspecified type R5 3.83 and Cough R05 [place] [address] [place] [id number] [address] [place] [address] Aug, Cervical disc disease M50.90 [facility] [address] [place] [id number] [address] [place] [address] Aug, Sore throat J02.9 ; Canker s ore K12.0 and History of anemia Z86.2 [place] [address] [place] [id number] [address] [place] [address] Jul, Cervical disc disease M50.90 [place] [address] [place] [id number] [address] [place] [address] Jun, Cervical disc disease M50.90 [place] [id number] [place] [id number] [address] [place] [address] Jun, Cervical disc disease M50.90 [facility] [address] [id number] [address] [place] [address] May, Cervical disc disease M50.90 [facility] [address] [id number] [address] [place] [address] Apr, Cervical disc disease M50.90 [facility] [address] [id number] [address] [place] [phone] Apr, [facility] [address] [facility] [id number] [address] [place] [address] Feb, Cervical disc disease M50.90 [facility] [address] [facility] [id number] [address] [place] [address] January, Cervical disc disease M50.90 [facility] [address] [facility] [id number] [address] [place] [address] Nov, [facility] [address] [facility] [id number] [address] [place] [address] Nov, Cervical disc disease M50.90 [facility] [address] [facility] [id number] [address] [place] [phone] Nov, Acute cystitis with hematuri a N30.01 and Dysuria R30.0 [facility] [address] [facility] [id number] [address] [place] [address] Oct, Cervical disc disease M50.90 and Acute non-recurrent frontal sinusitis J01.10 [facility] [address] [facility] [id number] [address] [place] [address] Sep, Neck pain M54.2 [facility] [address] [facility] [id number] [address] [place] [phone] Sep, [facility] [address] [facility] [id number] [address] [place] [address] Aug, Cervical disc disease M50.90 [facility] [address] [facility] [id number] [address] [place] [address] Jul, [facility] [address] [id number] [address] [place] [address] Jun, [facility] [address] [id number] [address] [place] [address] May, [facility] [address] [id number] [address] [place] [phone] May, Screening for diabetes melli tus Z13.1 ; Chronic fatigue R53.82 and Edema, unspecified type R60.9 [facility] [address] [id number] [address] [place] [address] Apr, Neck pain M54.2 [facility] [address] [id number] [address] [place] [address] Mar, [facility] [address] [id number] [address] [place] [phone] Mar, Neck pain M54.2 [facility] [address] [id number] [address] [place] [address] Feb, Cervical disc disease M50.90 [facility] [address] [id number] [address] [place] [address] Feb, Cervical disc disease M50.90 [facility] [address] [id number] [address] [place] [address] January, [facility] [address] [id number] [address] [place] [phone] January, [facility] [address] [id number] [address] [place] [phone] January, Cervical disc disease M50.90 [facility] [address] [id number] [address] [place] [phone] January, [facility] [address] [id number] [address] [place] [address] January, [facility] [address] [id number] [address] [place] [address] Dec, Cervical disc disease M50.90 [facility] [address] [id number] [address] [place] [address] Nov, Cervical disc disease M50.90 [facility] [address] [id number] [address] [place] [phone] Oct, Cervical disc disease M50.90 [facility] [address] [id number] [address] [place] [address] Sep, Cervical disc disease M50.90 [facility] [address] [id number] [address] [place] [id number] Aug, Dental caries K02.9 and Enco unter for dental examination Z01.20 [facility] [address] [id number] [address] [place] [phone] Aug, [facility] [address] [id number] [address] [place] [id number] Aug, [facility] [address] [id number] [address] [place] [id number] Aug, Encounter for dental examina tion Z01.20 [facility] [address] [id number] [address] [place] [phone] Jul, [facility] [address] [id number] [address] [place] [phone] Jun, Sinusitis J32.9 and Cervical disc disease M50.90 [facility] [address] [id number] [address] [place] [phone] Jun, [facility] [address] [id number] [address] [place] [phone] 24 May, 2015 [facility] [address] [id number] [address] [place] [id number] 23 May, 2015 [facility] [address] [id number] [address] [place] [phone] May, [facility] [address] [id number] [address] [place] [phone] May, [facility] [address] [id number] [address] [place] [phone] Apr, Cervical spondylosis without myelopathy 721.0 [facility] [address] [id number] [address] [place] [phone] Mar, [facility] [address] [id number] [address] [place] [phone] January, Cervical spondylosis without myelopathy 721.0 [facility] [address] [id number] [address] [place] [phone] Dec, [facility] [address] [id number] [address] [place] [phone] Dec, [facility] [address] [id number] [address] [place] [phone] Dec, [facility] [address] [id number] [address] [place] [phone] Nov, [facility] [address] [id number] [address] [place] [phone] Nov, [facility] [address] [id number] [address] [place] [phone] Oct, [facility] [address] [id number] [address] [place] [phone] Oct, [facility] [address] [id number] [address] [place] [phone] Oct, [facility] [address] [id number] [address] [place] [phone] Oct, [facility] [address] [id number] [address] [place] [phone] Oct, [facility] [address] [id number] [address] [place] [phone] Oct, [facility] [address] [id number] [address] [place] [address], [place] [address] Oct, [facility] [address] [id number] [address] [place] [address], [place] [address] Oct, [facility] [address] [id number] [address] [place] [address], [place] [address] Oct, [facility] [address] [id number] [address] [place] [address], [place] [address] Oct, [facility] [address] [id number] [address] [place] [address], [place] [address] Sep, [facility] [address] [id number] [address] [place] [address], [place] [address] Sep, [facility] [address] [id number] [address] [place] [address], [place] [address] Sep, [facility] [address] [id number] [address] [place] [address], [place] [address] Sep, [facility] [address] [id number] [address] [place] [address], [place] [address] Sep, [facility] [address] [id number] [address] [place] [address], [place] [address] Sep, [facility] [address] [id number] [address] [place] [address], [place] [address] Sep, [facility] [address] [id number] [address] [place] [address], [place] [address] Sep, [facility] [address] [id number] [address] [place] [address], [place] [address] Sep, [facility] [address] [id number] [address] [place] [address], [place] [address] Aug, [facility] [address] [id number] [address] [place] [address], [place] [address] Aug, [facility] [address] [id number] [address] [place] [address], [place] [address] Aug, [facility] [address] [id number] [address] [place] [address], [place] [address] Aug, [facility] [address] [id number] [address] [place] [address], [place] [address] Jul, [facility] [address] [id number] [address] [place] [address], [place] [address] Jul, [facility] [address] [id number] [address] [place] [address], [place] [address] Jul, [facility] [address] [id number] [address] [place] [address], [place] [address] Jul, [facility] [address] [id number] [address] [place] [address], [place] [address] Jul, [facility] [address] [id number] [address] [place] [address], [place] [address] Jul, [facility] [address] [id number] [address] [place] [address], [place] [address] Jul, [facility] [address] [id number] [address] [place] [address], [place] [address] Jul, [facility] [address] [id number] [address] [place] [address], [place] [address] Jun, [facility] [address] [id number] [address] [place] [address], [place] [address] Jun, [facility] [address] [id number] [address] [place] [address], [place] [address] Jun, [facility] [address] [id number] [address] [place] [address], [place] [address] 20 Jun, 2014 [facility] [address] [id number] [address] [place] [address], [place] [address] 16 Jun, 2014 [facility] [address] [id number] [address] [place] [address], [place] [address] 15 Jun, 2014 [facility] [address] [id number] [address] [place] [address], [place] [address] 15 Jun, 2014 [facility] [address] [id number] [address] [place] [address], [place] [address] 14 Jun, 2014 [facility] [address] [id number] [address] [place] [address], [place] [address] 14 Jun, 2014 [facility] [address] [id number] [address] [place] [address], [place] [address] Jun, [facility] [address] [id number] [address] [place] [address], [place] [address] Jun, [facility] [address] [id number] [address] [place] [address], [place] [address] 24 May, 2014 [facility] [address] [id number] [address] [place] [address], [place] [address] 24 May, 2014 [facility] [address] [id number] [address] [place] [address], [place] [address] 08 May, 2014 [facility] [address] [id number] [address] [place] [address], [place] [address] 02 May, 2014 [facility] [address] [id number] [address] [place] [address], [place] [address] May, [facility] [address] [id number] [address] [place] [address], [place] [address] Apr, [facility] [address] [id number] [address] [place] [address], [place] [address] Apr, [facility] [address] [id number] [address] [place] [address], [place] [address] Apr, [facility] [address] [id number] [address] [place] [address], [place] [address] Apr, [facility] [address] [id number] [address] [place] [address], [place] [address] Apr, [facility] [address] [id number] [address] [place] [address], [place] [address] Apr, [facility] [address] [id number] [address] [place] [address], [place] [address] Mar, [facility] [address] [id number] [address] [place] [address], [place] [address] Mar, [facility] [address] [id number] [address] [place] [address], [place] [address] Mar, [facility] [address] [id number] [address] [place] [address], [place] [address] Mar, [facility] [address] [id number] [address] [place] [address], [place] [id number] Mar, [facility] [address] [id number] [address] [place] [address], [place] [id number] Mar, [facility] [address] [id number] [address] [place] [address], [place] [id number] Feb, [facility] [address] [id number] [address] [place] [address], [place] [id number] Feb, [facility] [address] [id number] [address] [place] [address], [place] [id number] Feb, [facility] [address] [id number] [address] [place] [address], [place] [id number] Feb, [facility] [address] [id number] [address] [place] [address], [place] [id number] Feb, [facility] [address] [id number] [address] [place] [address], [place] [id number] Feb, [facility] [address] [id number] [address] [place] [address], [place] [id number] Feb, [facility] [address] [id number] [address] [place] [address], [place] [id number] Feb, [facility] [address] [id number] [address] [place] [address], [place] [address] January, [facility] [address] [id number] [address] [place] [address], [place] [address] January, [facility] [address] [id number] [address] [place] [address], [place] [id number] January, [facility] [address] [id number] [address] [place] [address], [place] [id number] January, [facility] [address] [id number] [address] [place] [address], [place] [id number] January, [facility] [address] [id number] [address] [place] [address], [place] [id number] January, [facility] [address] [id number] [address] [place] [address], [place] [id number] January, [facility] [address] [id number] [address] [place] [address], [place] [id number] January, [facility] [address] [id number] [address] [place] [address], [place] [id number] Dec, [facility] [address] [id number] [address] [place] [address], [place] [id number] Dec, [facility] [address] [id number] [address] [place] [address], [place] [id number] Dec, [facility] [address] [id number] [address] [place] [address], [place] [id number] Dec, [facility] [address] [id number] [address] [place] [address], [place] [id number] Dec, [facility] [address] [id number] [address] [place] [address], [place] [id number] Dec, [facility] [address] [id number] [address] [place] [address], [place] [id number] Nov, [facility] [address] [id number] [address] [place] [address], [place] [id number] Nov, [facility] [address] [id number] [address] [place] [address], [place] [address] Nov, [facility] [address] [id number] [facility] [place] [address] Nov, [facility] [address] [id number] [facility] [place] [address] Nov, [facility] [address] [id number] [facility] [place] [address] Nov, [facility] [address] [id number] [address] [place] [address], [place] [id number] Nov, [facility] [address] [id number] [address] [place] [address], [place] [id number] Nov, [facility] [address] [id number] [address] [place] [address], [place] [id number] Oct, [facility] [address] [id number] [address] [place] [address], [place] [id number] Oct, [facility] [address] [id number] [address] [place] [address], [place] [id number] Sep, [facility] [address] [id number] [address] [place] [address], [place] [id number] Sep, [facility] [address] [id number] [address] [place] [address], [place] [id number] Sep, [facility] [address] [id number] [address] [place] [address], [place] [id number] Sep, [facility] [address] [id number] [address] [place] [address], [place] [address] Aug, [facility] [place] [facility] [address] [id number] [address] [place] [address], [place] [address] Aug, [facility] [place] [facility] [address] [id number] [address] [place] [address], [place] [address] Aug, [facility] [place] [facility] [address] [id number] [address] [place] [address], [place] [address] Aug, [facility] [place] [facility] [address] [id number] [address] [place] [address] Jul, [facility] [address] [id number] [address] [place] [address], [place] [address] Jul, [facility] [address] [id number] [address] [place] [address], [place] [address] Jul, [facility] [address] [id number] [address] [place] [address], [place] [address] Jul, [facility] [address] [id number] [address] [place] [address], [place] [address] Jul, [facility] [address] [id number] [address] [place] [address], [place] [address] Jul, [facility] [address] [id number] [address] [place] [address], [place] [address] Jul, [facility] [address] [id number] [address] [place] [address], [place] [address] Jul, [facility] [address] [id number] [address] [place] [address], [place] [address] Jul, [facility] [address] [id number] [address] [place] [address], [place] [address] Jul, [facility] [address] [id number] [address] [place] [address], [place] [address] Jul, [facility] [address] [id number] [address] [place] [address], [place] [address] Jul, [facility] [address] [id number] [address] [place] [address], [place] [address] Jun, [facility] [address] [id number] [address] [place] [address], [place] [address] Jun, [facility] [address] [id number] [address] [place] [address], [place] [address] Jun, [facility] [address] [id number] [address] [place] [address], [place] [address] Jun, [facility] [address] [id number] [address] [place] [address], [place] [address] 16 Jun, 2013 [facility] [address] [id number] [address] [place] [address], [place] [address] 14 Jun, 2013 [facility] [address] [id number] [address] [place] [address], [place] [address] 14 Jun, 2013 [facility] [address] [id number] [address] [place] [address], [place] [address] Jun, [facility] [address] [id number] [address] [place] [address], [place] [id number] 15 May, 2013 [facility] [address] [id number] [address] [place] [address], [place] [address] 05 May, 2013 [facility] [address] [id number] [address] [place] [address], [place] [address] May, [facility] [address] [id number] [address] [place] [address], [place] [address] Apr, [facility] [address] [id number] [address] [place] [address], [place] [address] Apr, [facility] [address] [id number] [address] [place] [address], [place] [address] Mar, [facility] [address] [id number] [address] [place] [address], [place] [address] Mar, [facility] [address] [id number] [address] [place] [address], [place] [address] Feb, [facility] [address] [id number] [address] [place] [address], [place] [address] January, [facility] [address] [id number] [address] [place] [address], [place] [address] January, [facility] [address] [id number] [address] [place] [address], [place] [address] January, [facility] [address] [id number] [address] [place] [address], [place] [address] January, [facility] [address] [id number] [address] [place] [address], [place] [address] January, [facility] [address] [id number] [address] [place] [address], [place] [address] 29 Dec, 2012 [facility] [address] [id number] [address] [place] [address], [place] [address] Dec, [facility] [address] [id number] [address] [place] [address], [place] [address] Dec, [facility] [address] [id number] [address] [place] [address], [place] [address] Nov, [facility] [address] [id number] [address] [place] [address], [place] [address] 27 Oct, 2012 [facility] [address] [id number] [address] [place] [address], [place] [address] 18 Oct, 2012 [facility] [address] [id number] [address] [place] [address], [place] [address] 15 Oct, 2012 [facility] [address] [id number] [address] [place] [address], [place] [address] Sep, [facility] [address] [id number] [address] [place] [address], [place] [address] 16 Sep, 2012 [facility] [address] [id number] [address] [place] [address], [place] [address] 14 Aug, 2012 [facility] [address] [id number] [address] [place] [address], [place] [address] 14 Aug, 2012 [facility] [address] [id number] [address] [place] [address], [place] [address] Aug, [facility] [address] [id number] [address] [place] [address], [place] [address] Aug, [facility] [address] [id number] [address] [place] [address], [place] [address] Jul, [facility] [place] [facility] [address] [id number] [address] [place] [address], [place] [address] Jul, [facility] [place] [facility] [address] [id number] [address] [place] [address], [place] [address] Jul, [facility] [place] [facility] [address] [id number] [address] [place] [address], [place] [address] Jul, [facility] [place] [facility] [address] [id number] [address] [place] [address], [place] [address] Jul, [facility] [place] [facility] [address] [id number] [address] [place] [address], [place] [address] 15 Jun, 2012 [facility] [place] [facility] [address] [id number] [address] [place] [address], [place] [address] 15 Jun, 2012 [facility] [place] [facility] [address] [id number] [address] [place] [address], [place] [address] Jun, [facility] [place] [facility] [address] [id number] [address] [place] [address], [place] [address] Jun, [facility] [place] [facility] [address] [id number] [address] [place] [address], [place] [address] May, [facility] [place] [facility] [address] [id number] [address] [place] [address], [place] [address] Apr, [facility] [place] [facility] [address] [id number] [address] [place] [address], [place] [address] Apr, [facility] [place] [facility] [address] [id number] [address] [place] [address], [place] [address] Apr, [facility] [place] [facility] [address] [id number] [address] [place] [address], [place] [address] Apr, [facility] [place] [facility] [address] [id number] [address] [place] [address], [place] [address] January, [facility] [place] [facility] [address] [id number] [address] [place] [address], [place] [address] January, [facility] [place] [facility] [address] [id number] [address] [place] [address], [place] [address] Dec, [facility] [address] [id number] [address] [place] [address], [place] [address] Dec, [facility] [address] [id number] [address] [place] [address], [place] [address] Nov, [facility] [address] [id number] [address] [place] [address], [place] [address] Nov, [facility] [address] [id number] [address] [place] [address], [place] [address] Nov, [facility] [address] [id number] [address] [place] [address], [place] [address] Nov, [facility] [address] [id number] [address] [place] [address], [place] [address] Oct, [facility] [address] [id number] [address] [place] [address], [place] [address] Oct, [facility] [address] [id number] [address] [place] [address], [place] [address] Oct, [facility] [address] [id number] [address] [place] [address], [place] [address] Sep, [facility] [address] [id number] [address] [place] [address], [place] [address] Sep, [facility] [address] [id number] [address] [place] [address], [place] [address] Aug, [facility] [address] [id number] [address] [place] [address], [place] [address] Aug, [facility] [address] [id number] [address] [place] [address], [place] [address] Jul, [facility] [address] [id number] [address] [place] [address], [place] [address] Jul, [facility] [address] [id number] [address] [place] [address], [place] [address] Jul, [facility] [address] [id number] [address] [place] [address], [place] [address] 26 Jun, 2011 [facility] [address] [id number] [address] [place] [address], [place] [address] 24 Jun, 2011 [facility] [address] [id number] [address] [place] [address], [place] [address] 11 Jun, 2011 [facility] [address] [id number] [address] [place] [address], [place] [address] Jun, [facility] [address] [id number] [address] [place] [address], [place] [address] 10 Jun, 2011 [facility] [address] [id number] [address] [place] [address], [place] [address] Jun, [facility] [address] [id number] [address] [place] [address], [place] [address] Aug, [facility] [address] [id number] [address] [place] [address], [place] [address] Aug, [facility] [address] [id number] [address] [place] [address], [place] [address] Aug, [facility] [address] [id number] [address] [place] [address], [place] [address] Jul, [facility] [address] [id number] [address] [place] [address], [place] [address] Jul, [facility] [address] [id number] [address] [place] [address], [place] [address] Jul, [facility] [address] [id number] [address] [place] [address], [place] [address] 15 Jul, 2010 [facility] [address] [id number] [address] [place] [address], [place] [id number] 15 Jul, 2010 [facility] [address] [id number] [address] [place] [address], [place] [id number] 08 Jul, 2010 [facility] [address] [id number] [address] [place] [address], [place] [address] Jun, [facility] [address] [id number] [address] [place] [id number] Apr, [facility] [address] [id number] [address] [place] [id number] Feb, [facility] [address] [id number] [address] [place] [id number] Oct, [facility] [address] [id number] [address] [place] [id number] Sep, [facility] [address] [id number] [address] [place] [id number] Aug, [facility] [address] [id number] [address] [place] [id number] Aug, [facility] [address] [facility] [id number] [address] [place] [id number] Aug, [facility] [address] [id number] [address] [place] [id number] Jul, [facility] [address] [facility] [id number] [address] [place] [id number] Jun, IMMUNIZATIONS No Known Immunizations SOCIAL HISTORY [...]
--- NOTE | 2020-02-22 17:20 | ED Cardiac General ---
History of Present Illness General Chief Complaint: Cardiac/General Problems Stated Complaint: CP/SOB Source: patient Exam Limitations: no limitations History of Present Illness Date Seen by Provider: Feb 22, 2020 Time Seen by Provider: 17:17 Initial Comments To ER with a three-day history of nausea without vomiting, mild diarrhea, general malaise, dyspnea on exertion, palpitations on exertion. States that her daughter yesterday and she didn't feel well all day, no fevers. No cough. No chest pain. She does have a history of mitral valve prolapse. She does not feel that stress or anxiety is related to her daughters wedding contributed to her symptoms. Timing/Duration: 2-3 days Severity: moderate NTG SL RN CHRONIC: No ASA po RN CHRONIC: No Associated Systoms: No Chest Pain, No Cough, No Fever/Chills; Malaise, Nausea/Vomiting Allergies and Home Medications Allergies Coded Allergies: latex (Verified Allergy, Unknown, SWELLING, 05/30/06) theophylline (Verified Allergy, Unknown, N&V, 05/30/06) Home Medications Aspirin/Acetaminophen/Caffeine 1 Each Tablet, 2 TAB PO BID PRN, (Reported) NEEDED FOR HEADACHE Rabeprazole Sodium 20 Mg Tablet.dr, 20 MG PO BID, (Reported) Sucralfate 1 Gm Tab, 1 GM PO QID, (Reported) BEFORE MEALS AND AT BEDTIME Sumatriptan Succinate 100 Mg Tablet, 0 PO UD, (Reported) TAKE 1 TABLET AT ONSET OF HEADACHE; MAY REPEAT X 1 IN 2 HOURS Tramadol Hcl 50 Mg Tablet, 100 MG PO TID PRN, (Reported) TAKES 2 (100MG) TABLETS THREE TIMES DAILY NEEDED FOR PAIN Patient Home Medication List Home Medication List Reviewed: Yes Review of Systems Review of Systems Constitutional: see HPI; No chills, No fever EENTM: No Symptoms Reported Respiratory: See HPI; Denies Cough; Shortness of Air, SOA With Exertion Cardiovascular: No Symptoms Reported, See HPI; Denies Chest Pain; Irregular Heart Rate Gastrointestinal: See HPI; Denies Abdominal Pain, Denies Constipated; Diarrhea, Nausea; Denies Vomiting Genitourinary: No Symptoms Reported Musculoskeletal: no symptoms reported Skin: no symptoms reported Psychiatric/Neurological: No Symptoms Reported Endocrine: No Symptoms Reported Hematologic/Lymphatic: No Symptoms Reported Past Gyzaese-Esptwm-Kjatui Hx Seasonal Allergies Seasonal Allergies: Yes Past Medical History Reproductive Disorders: No Female Reproductive Disorders: Ovarian Cyst Gastroesophageal Reflux, Ulcer Chronic Back Pain Blood Disorders: No Physical Exam Vital Signs Vital Signs - First Documented 02/22/20 17:13 Temp 36.9 Pulse 16 Resp 18 B/P (MAP) 125/76 (92) Pulse Ox 99 Capillary Refill : Height, Weight, BMI Height: '" Weight: 147lbs. oz. 66.066673ue; BMI Method:Stated General Appearance: No Apparent Distress, WD/WN, Other (at the present time she is asymptomatic .) HEENT: PERRL/EOMI, TMs Normal Neck: Full Range of Motion, Normal Inspection Respiratory: No Accessory Muscle Use, No Respiratory Distress Cardiovascular: Regular Rate, Rhythm, Normal Peripheral Pulses Gastrointestinal: Normal Bowel Sounds, Non Tender, Soft Extremity: Normal Capillary Refill, Normal Inspection Neurologic/Psychiatric: Alert, Oriented x3 Skin: Normal Color, Warm/Dry Progress/Results/Core Measures Results/Orders Lab Results Laboratory Tests Test 02/22/20 17:09 02/22/20 17:47 Range/Units White Blood Count 7.1 4.3-11.0 10^3/uL Red Blood Count 4.40 4.35-5.85 10^6/uL Hemoglobin 9.2 L 11.5-16.0 G/DL Hematocrit 30 L 35-52 % Mean Corpuscular Volume 69 L 80-99 FL Mean Corpuscular Hemoglobin 21 L 25-34 PG Mean Corpuscular Hemoglobin Concent 31 L 32-36 G/DL Red Cell Distribution Width 17.8 H 10.0-14.5 % Platelet Count 711 H 130-400 10^3/uL Mean Platelet Volume 9.0 7.4-10.4 FL Neutrophils (%) (Auto) 66 42-75 % Lymphocytes (%) (Auto) 27 12-44 % Monocytes (%) (Auto) 6 0-12 % Eosinophils (%) (Auto) 1 0-10 % Basophils (%) (Auto) 1 0-10 % Neutrophils # (Auto) 4.7 1.8-7.8 X 10^3 Lymphocytes # (Auto) 1.9 1.0-4.0 X 10^3 Monocytes # (Auto) 0.4 0.0-1.0 X 10^3 Eosinophils # (Auto) 0.1 0.0-0.3 10^3/uL Basophils # (Auto) 0.0 0.0-0.1 10^3/uL Prothrombin Time 13.2 12.2-14.7 SEC INR Comment 1.0 0.8-1.4 Activated Partial Thromboplast Time 24 24-35 SEC D-Dimer 1.22 H 0.00-0.49 UG/ML Sodium Level 133 L 135-145 MMOL/L Chloride Level 95 L 98-107 MMOL/L Carbon Dioxide Level 27 21-32 MMOL/L Anion Gap 11 5-14 MMOL/L Blood Urea Nitrogen 17 7-18 MG/DL Creatinine 1.42 H 0.60-1.30 MG/DL Estimat Glomerular Filtration Rate 39 BUN/Creatinine Ratio 12 Glucose Level 124 H 70-105 MG/DL Calcium Level 9.5 8.5-10.1 MG/DL Corrected Calcium 9.5 8.5-10.1 MG/DL Magnesium Level 1.7 1.6-2.4 MG/DL Total Bilirubin 0.4 0.1-1.0 MG/DL Aspartate Amino Transf (AST/SGOT) 32 5-34 U/L Alanine Aminotransferase (ALT/SGPT) 21 0-55 U/L Alkaline Phosphatase 59 40-136 U/L Myoglobin 117.2 H 10.0-92.0 NG/ML Troponin I 0.041 H <0.028 NG/ML Total Protein 7.4 6.4-8.2 GM/DL Albumin 4.0 3.2-4.5 GM/DL My Orders Orders - SHARRON AMARAL APRN Chest 1 View, Ap/Pa Only (02/22/20 17:02) Ekg Tracing (02/22/20 17:02) Aspirin Chewable Tablet (Baby Aspirin Ch (02/22/20 17:15) Cbc With Automated Diff (02/22/20 17:02) Magnesium (02/22/20 17:02) Comprehensive Metabolic Panel (02/22/20 17:02) Myoglobin Serum (02/22/20 17:02) Protime With Inr (02/22/20 17:02) Partial Thromboplastin Time (02/22/20 17:02) O2 (02/22/20 17:02) Monitor-Rhythm Ecg Trace Only (02/22/20 17:02) Lipid Panel (02/23/20 06:00) Ed Iv/Invasive Line Start (02/22/20 17:02) BNP (02/22/20 17:02) Fibrin Degradation Products (02/22/20 17:02) Troponin I (02/22/20 17:02) Coronavirus Sars-Cov-2 So 2018 (02/22/20 17:03) Ct Angio Chest W (02/22/20 17:35) Ns Iv 1000 Ml (Sodium Chloride 0.9%) (02/22/20 17:45) Hs C Reactive Protein (02/22/20 17:42) Medications Given in ED Current Medications Medications Dose Ordered Sig/Margaret Route Start Time Stop Time Status Last Admin Dose Admin Aspirin 324 mg ONCE ONCE PO 02/22/20 17:15 02/22/20 17:16 DC 02/22/20 17:20 324 MG Vital Signs/I&O 02/22/20 17:13 Temp 36.9 Pulse 16 Resp 18 B/P (MAP) 125/76 (92) Pulse Ox 99 Departure Impression Primary Impression: Elevated d-dimer Additional Impression: Palpitations Disposition: ADMITTED INPATIENT Condition: Stable Admissions Decision to Admit Reason: Admit from ER (General) Decision to Admit/Date: Feb 22, 2020 Time/Decision to Admit Time: 17:57 Departure-Patient Inst. Referrals: ZACKARY TRUJILLO MD (PCP/Family) Primary Care Physician SHARRON AMARAL APRN Feb 22, 2020 17:20
--- OUTSIDE RECORDS SUMMARY | 2020-02-22 17:20 | XMS REPORT ---
Author Author Marion CORREA Organization [facility] Address [address] [place] [address] Care Team Providers Care Director Of Catering Name Role Phone SHABNAM CORREA Unavailable PROBLEMS Type Condition ICD9-CM Code EWF15-UA Code Onset Dates Condition S tatus SNOMED Code Problem Acquired hypothyroidism E03.9 Active 010337396 Problem Gastro-esophageal reflux disease without esophagitis K21.9 Active 022133296 Problem Cervical disc disease M50.90 Active 649887630 Problem Dyspepsia R10.13 Active 349353990 Problem Migraine without aura and without status migrain osus, not intractable G43.009 Active [id number] ALLERGIES No Information ENCOUNTERS Encounter Location Date Diagnosis [place] [address] [place] [id number] [place] [address] Apr, Cervical disc disease M50.90 [place] [address] [place] [id number] [place] [address] Apr, Cervical disc disease M50.90 ; Gastro-esophageal reflux disease without esophagitis K21.9 and Sinus headache R51 [place] [id number] [place] [address] Apr, [place] [address] [place] [id number] [address] [place] [id number] Apr, Cervical disc disease M50.90 [place] [address] [place] [id number] [address] [place] [address] Mar, [place] [address] [place] [id number] [place] [address] Mar, Cervical disc disease M50.90 [place] [address] [place] [id number] [address] [place] [phone] Feb, [facility] [address] [place] [address] Feb, Cervical disc disease M50.90 [facility] [address] [place] [address] January, [facility] [address] [id number] [address] [place] [address] January, Cervical disc disease M50.90 [facility] [address] [id number] [address] [place] [address] January, Cervical disc disease M50.90 [facility] [address] [id number] [address] [place] [address] Dec, Cervical disc disease M50.90 [facility] [address] [id number] [address] [place] [address] Dec, Cervical disc disease M50.90 [facility] [address] [id number] [address] [place] [address] Dec, Cervical disc disease M50.90 [facility] [address] [id number] [address] [place] [address] Dec, Cervical disc disease M50.90 ; Acquired hypothyroidism E03.9 and Migraine without aura and without status migrainosus, not intractable G43.009 [facility] [address] [id number] [address] [place] [address] Nov, [facility] [address] [id number] [address] [place] [address] Nov, Cervical disc disease M50.90 [facility] [address] [id number] [address] [place] [address] Oct, Cervical disc disease M50.90 [facility] [address] [id number] [address] [place] [address] Sep, [facility] [address] [id number] [address] [place] [address] Sep, Cervical disc disease M50.90 [facility] [address] [id number] [address] [place] [address] Aug, Cervical disc disease M50.90 [facility] [address] [id number] [address] [place] [address] Jul, Cervical disc disease M50.90 [facility] [address] [id number] [address] [place] [address] Jun, Acute recurrent pansinusitis J01.41 and Cervical disc disease M50.90 [facility] [address] [id number] [address] [place] [address] Jun, Cervical disc disease M50.90 [facility] [address] [id number] [address] [place] [address] May, Cervical disc disease M50.90 [facility] [address] [id number] [address] [place] [address] Apr, Cervical disc disease M50.90 [facility] [address] [id number] [address] [place] [address] Mar, Cervical disc disease M50.90 [facility] [address] [id number] [address] [place] [address] Mar, [facility] [address] [id number] [address] [place] [address] Mar, Cervical disc disease M50.90 [facility] [address] [id number] [address] [place] [address] Feb, Cervical disc disease M50.90 [facility] [address] [id number] [address] [place] [address] January, Cervical disc disease M50.90 [facility] [address] [id number] [address] [place] [address] Dec, [facility] [address] [id number] [address] [place] [address] Dec, Cervical disc disease M50.90 [facility] [address] [facility] [id number] [address] [place] [address] Nov, Cervical disc disease M50.90 [facility] [address] [facility] [id number] [address] [place] [address] Nov, Cervical disc disease M50.90 [facility] [address] [facility] [id number] [address] [place] [address] Oct, Cervical disc disease M50.90 [facility] [address] [facility] [id number] [address] [place] [address] Oct, Cervical disc disease M50.90 and Acute non-recurrent maxillary sinusitis J01.00 [place] [address] [facility] [id number] [address] [place] [address] Sep, Cervical disc disease M50.90 [facility] [address] [place] [id number] [place] [address] Sep, [facility] [address] [place] [id number] [place] [address] Sep, Fatigue, unspecified type R5 3.83 and Cough R05 [place] [address] [place] [id number] [address] [place] [address] Aug, Cervical disc disease M50.90 [facility] [address] [place] [id number] [address] [place] [address] Aug, Sore throat J02.9 ; Canker s ore K12.0 and History of anemia Z86.2 [place] [address] [place] [id number] [address] [place] [address] Jul, Cervical disc disease M50.90 [place] [address] [place] [id number] [address] [place] [address] Jun, Cervical disc disease M50.90 [place] [address] [place] [id number] [address] [place] [address] Jun, Cervical disc disease M50.90 [facility] [address] [id number] [address] [place] [address] May, Cervical disc disease M50.90 [facility] [address] [id number] [address] [place] [address] Apr, Cervical disc disease M50.90 [facility] [address] [id number] [address] [place] [address] Apr, [facility] [address] [facility] [id number] [address] [place] [address] Feb, Cervical disc disease M50.90 [facility] [address] [facility] [id number] [address] [place] [address] January, Cervical disc disease M50.90 [facility] [address] [facility] [id number] [address] [place] [address] Nov, [facility] [address] [facility] [id number] [address] [place] [address] Nov, Cervical disc disease M50.90 [facility] [address] [facility] [id number] [address] [place] [address] Nov, Acute cystitis with hematuri a N30.01 and Dysuria R30.0 [facility] [address] [facility] [id number] [address] [place] [address] Oct, Cervical disc disease M50.90 and Acute non-recurrent frontal sinusitis J01.10 [facility] [address] [facility] [id number] [address] [place] [address] Sep, Neck pain M54.2 [facility] [address] [facility] [id number] [address] [place] [phone] Sep, [facility] [address] [facility] [id number] [address] [place] [address] Aug, Cervical disc disease M50.90 [facility] [address] [facility] [id number] [address] [place] [address] Jul, [facility] [address] [id number] [address] [place] [address] Jun, [facility] [address] [id number] [address] [place] [address] May, [facility] [address] [id number] [address] [place] [address] May, Screening for diabetes melli tus Z13.1 ; Chronic fatigue R53.82 and Edema, unspecified type R60.9 [facility] [address] [id number] [address] [place] [address] Apr, Neck pain M54.2 [facility] [address] [id number] [address] [place] [address] Mar, [facility] [address] [id number] [address] [place] [address] Mar, Neck pain M54.2 [facility] [address] [id number] [address] [place] [address] Feb, Cervical disc disease M50.90 [facility] [address] [id number] [address] [place] [address] Feb, Cervical disc disease M50.90 [facility] [address] [id number] [address] [place] [address] January, [facility] [address] [id number] [address] [place] [address] January, [facility] [address] [id number] [address] [place] [address] January, Cervical disc disease M50.90 [facility] [address] [id number] [address] [place] [address] January, [facility] [address] [id number] [address] [place] [phone] January, [facility] [address] [id number] [address] [place] [address] Dec, Cervical disc disease M50.90 [facility] [address] [id number] [address] [place] [address] Nov, Cervical disc disease M50.90 [facility] [address] [id number] [address] [place] [address] Oct, Cervical disc disease M50.90 [facility] [address] [id number] [address] [place] [address] Sep, Cervical disc disease M50.90 [facility] [address] [id number] [address] [place] [id number] Aug, Dental caries K02.9 and Enco unter for dental examination Z01.20 [facility] [address] [id number] [address] [place] [address] Aug, [facility] [address] [id number] [address] [place] [address] Aug, [facility] [address] [id number] [address] [place] [id number] Aug, Encounter for dental examina tion Z01.20 [facility] [address] [id number] [address] [place] [address] Jul, [facility] [address] [id number] [address] [place] [address] Jun, Sinusitis J32.9 and Cervical disc disease M50.90 [facility] [address] [id number] [address] [place] [address] Jun, [facility] [address] [id number] [address] [place] [id number] 24 May, 2015 [facility] [address] [id number] [address] [place] [phone] 23 May, 2015 [facility] [address] [id number] [address] [place] [address] May, [facility] [address] [id number] [address] [place] [address] May, [facility] [address] [id number] [address] [place] [address] Apr, Cervical spondylosis without myelopathy 721.0 [facility] [address] [id number] [address] [place] [phone] Mar, [facility] [address] [id number] [address] [place] [address] January, Cervical spondylosis without myelopathy 721.0 [facility] [address] [id number] [address] [place] [address] Dec, [facility] [address] [id number] [address] [place] [phone] Dec, [facility] [address] [id number] [address] [place] [address] Dec, [facility] [address] [id number] [address] [place] [address] Nov, [facility] [address] [id number] [address] [place] [phone] Nov, [facility] [address] [id number] [address] [place] [address] Oct, [facility] [address] [id number] [address] [place] [phone] Oct, [facility] [address] [id number] [address] [place] [phone] Oct, [facility] [address] [id number] [address] [place] [phone] Oct, [facility] [address] [id number] [address] [place] [phone] Oct, [facility] [address] [id number] [address] [place] [phone] Oct, [facility] [address] [id number] [address] [place] [address], [place] [address] Oct, [facility] [address] [id number] [address] [place] [address], [place] [address] Oct, [facility] [address] [id number] [address] [place] [address], [place] [address] Oct, [facility] [address] [id number] [address] [place] [address], [place] [address] Oct, [facility] [address] [id number] [address] [place] [address], [place] [address] Sep, [facility] [address] [id number] [address] [place] [address], [place] [address] Sep, [facility] [address] [id number] [address] [place] [address], [place] [address] Sep, [facility] [address] [id number] [address] [place] [address], [place] [address] Sep, [facility] [address] [id number] [address] [place] [address], [place] [address] Sep, [facility] [address] [id number] [address] [place] [address], [place] [address] Sep, [facility] [address] [id number] [address] [place] [address], [place] [address] Sep, [facility] [address] [id number] [address] [place] [address], [place] [address] Sep, [facility] [address] [id number] [address] [place] [address], [place] [address] Sep, [facility] [address] [id number] [address] [place] [address], [place] [address] Aug, [facility] [address] [id number] [address] [place] [address], [place] [address] Aug, [facility] [address] [id number] [address] [place] [address], [place] [address] Aug, [facility] [address] [id number] [address] [place] [address], [place] [address] Aug, [facility] [address] [id number] [address] [place] [address], [place] [address] Jul, [facility] [address] [id number] [address] [place] [address], [place] [address] Jul, [facility] [address] [id number] [address] [place] [address], [place] [address] Jul, [facility] [address] [id number] [address] [place] [address], [place] [address] Jul, [facility] [address] [id number] [address] [place] [address], [place] [address] Jul, [facility] [address] [id number] [address] [place] [address], [place] [address] Jul, [facility] [address] [id number] [address] [place] [address], [place] [address] Jul, [facility] [address] [id number] [address] [place] [address], [place] [address] Jul, [facility] [address] [id number] [address] [place] [address], [place] [address] Jun, [facility] [address] [id number] [address] [place] [address], [place] [address] Jun, [facility] [address] [id number] [address] [place] [address], [place] [address] Jun, [facility] [address] [id number] [address] [place] [address], [place] [address] 20 Jun, 2014 [facility] [address] [id number] [address] [place] [address], [place] [address] 16 Jun, 2014 [facility] [address] [id number] [address] [place] [address], [place] [address] 15 Jun, 2014 [facility] [address] [id number] [address] [place] [address], [place] [address] 15 Jun, 2014 [facility] [address] [id number] [address] [place] [address], [place] [address] 14 Jun, 2014 [facility] [address] [id number] [address] [place] [address], [place] [address] 14 Jun, 2014 [facility] [address] [id number] [address] [place] [address], [place] [address] Jun, [facility] [address] [id number] [address] [place] [address], [place] [address] Jun, [facility] [address] [id number] [address] [place] [address], [place] [address] 24 May, 2014 [facility] [address] [id number] [address] [place] [address], [place] [address] 24 May, 2014 [facility] [address] [id number] [address] [place] [address], [place] [address] 08 May, 2014 [facility] [address] [id number] [address] [place] [address], [place] [address] 02 May, 2014 [facility] [address] [id number] [address] [place] [address], [place] [address] May, [facility] [address] [id number] [address] [place] [address], [place] [address] Apr, [facility] [address] [id number] [address] [place] [address], [place] [address] Apr, [facility] [address] [id number] [address] [place] [address], [place] [address] Apr, [facility] [address] [id number] [address] [place] [address], [place] [address] Apr, [facility] [address] [id number] [address] [place] [address], [place] [address] Apr, [facility] [address] [id number] [address] [place] [address], [place] [address] Apr, [facility] [address] [id number] [address] [place] [address], [place] [address] Mar, [facility] [address] [id number] [address] [place] [address], [place] [address] Mar, [facility] [address] [id number] [address] [place] [address], [place] [address] Mar, [facility] [address] [id number] [address] [place] [address], [place] [address] Mar, [facility] [address] [id number] [address] [place] [address], [place] [address] Mar, [facility] [address] [id number] [address] [place] [address], [place] [address] Mar, [facility] [address] [id number] [address] [place] [address], [place] [address] Feb, [facility] [address] [id number] [address] [place] [address], [place] [address] Feb, [facility] [address] [id number] [address] [place] [address], [place] [address] Feb, [facility] [address] [id number] [address] [place] [address], [place] [address] Feb, [facility] [address] [id number] [address] [place] [address], [place] [address] Feb, [facility] [address] [id number] [address] [place] [address], [place] [address] Feb, [facility] [address] [id number] [address] [place] [address], [place] [address] Feb, [facility] [address] [id number] [address] [place] [address], [place] [address] Feb, [facility] [address] [id number] [address] [place] [address], [place] [address] January, [facility] [address] [id number] [address] [place] [address], [place] [address] January, [facility] [address] [id number] [address] [place] [address], [place] [address] January, [facility] [address] [id number] [address] [place] [address], [place] [address] January, [facility] [address] [id number] [address] [place] [address], [place] [address] January, [facility] [address] [id number] [address] [place] [address], [place] [address] January, [facility] [address] [id number] [address] [place] [address], [place] [address] January, [facility] [address] [id number] [address] [place] [address], [place] [address] January, [facility] [address] [id number] [address] [place] [address], [place] [address] Dec, [facility] [address] [id number] [address] [place] [address], [place] [address] Dec, [facility] [address] [id number] [address] [place] [address], [place] [address] Dec, [facility] [address] [id number] [address] [place] [address], [place] [address] Dec, [facility] [address] [id number] [address] [place] [address], [place] [address] Dec, [facility] [address] [id number] [address] [place] [address], [place] [address] Dec, [facility] [address] [id number] [address] [place] [address], [place] [address] Nov, [facility] [address] [id number] [address] [place] [address], [place] [address] Nov, [facility] [facility] [address] [id number] [address] [place] [address], [place] [address] Nov, [facility] [address] [id number] [facility] [place] [address] Nov, [facility] [address] [id number] [facility] [place] [address] Nov, [facility] [address] [id number] [facility] [place] [address] Nov, [facility] [place] [facility] [address] [id number] [address] [place] [address], [place] [address] Nov, [facility] [address] [id number] [address] [place] [address], [place] [address] Nov, [facility] [address] [id number] [address] [place] [address], [place] [address] Oct, [facility] [address] [id number] [address] [place] [address], [place] [address] Oct, [facility] [address] [id number] [address] [place] [address], [place] [address] Sep, [facility] [address] [id number] [address] [place] [address], [place] [address] Sep, [facility] [address] [id number] [address] [place] [address], [place] [address] Sep, [facility] [address] [id number] [address] [place] [address], [place] [address] Sep, [facility] [address] [id number] [address] [place] [address], [place] [address] Aug, [facility] [place] [facility] [address] [id number] [address] [place] [address], [place] [address] Aug, [facility] [place] [facility] [address] [id number] [address] [place] [address], [place] [address] Aug, [facility] [place] [facility] [address] [id number] [address] [place] [address], [place] [address] Aug, [facility] [place] [facility] [address] [id number] [address] [address] Jul, [facility] [address] [id number] [address] [place] [address], [place] [address] Jul, [facility] [address] [id number] [address] [place] [address], [place] [address] Jul, [facility] [address] [id number] [address] [place] [address], [place] [address] Jul, [facility] [address] [id number] [address] [place] [address], [place] [address] Jul, [facility] [address] [id number] [address] [place] [address], [place] [address] Jul, [facility] [address] [id number] [address] [place] [address], [place] [address] Jul, [facility] [address] [id number] [address] [place] [address], [place] [address] Jul, [facility] [address] [id number] [address] [place] [address], [place] [address] Jul, [facility] [address] [id number] [address] [place] [address], [place] [address] Jul, [facility] [address] [id number] [address] [place] [address], [place] [address] Jul, [facility] [address] [id number] [address] [place] [address], [place] [address] Jul, [facility] [address] [id number] [address] [place] [address], [place] [address] Jun, [facility] [address] [id number] [address] [place] [address], [place] [address] Jun, [facility] [address] [id number] [address] [place] [address], [place] [address] Jun, [facility] [address] [id number] [address] [place] [address], [place] [address] Jun, [facility] [address] [id number] [address] [place] [address], [place] [address] 16 Jun, 2013 [facility] [address] [id number] [address] [place] [address], [place] [address] 14 Jun, 2013 [facility] [address] [id number] [address] [place] [address], [place] [address] 14 Jun, 2013 [facility] [address] [id number] [address] [place] [address], [place] [address] Jun, [facility] [address] [id number] [address] [place] [address], [place] [address] 15 May, 2013 [facility] [address] [id number] [address] [place] [address], [place] [address] 05 May, 2013 [facility] [address] [id number] [address] [place] [address], [place] [address] May, [facility] [address] [id number] [address] [place] [address], [place] [address] Apr, [facility] [address] [id number] [address] [place] [address], [place] [address] Apr, [facility] [address] [id number] [address] [place] [address], [place] [address] Mar, [facility] [address] [id number] [address] [place] [address], [place] [address] Mar, [facility] [address] [id number] [address] [place] [address], [place] [address] Feb, [facility] [address] [id number] [address] [place] [address], [place] [address] January, [facility] [address] [id number] [address] [place] [address], [place] [address] January, [facility] [address] [id number] [address] [place] [address], [place] [address] January, [facility] [address] [id number] [address] [place] [address], [place] [address] January, [facility] [address] [id number] [address] [place] [address], [place] [address] January, [facility] [address] [id number] [address] [place] [address], [place] [address] 29 Dec, 2012 [facility] [address] [id number] [address] [place] [address], [place] [address] Dec, [facility] [address] [id number] [address] [place] [address], [place] [address] Dec, [facility] [address] [id number] [address] [place] [address], [place] [address] Nov, [facility] [address] [id number] [address] [place] [address], [place] [address] 27 Oct, 2012 [facility] [address] [id number] [address] [place] [address], [place] [address] 18 Oct, 2012 [facility] [address] [id number] [address] [place] [address], [place] [address] 15 Oct, 2012 [facility] [address] [id number] [address] [place] [address], [place] [address] Sep, [facility] [address] [id number] [address] [place] [address], [place] [address] 16 Sep, 2012 [facility] [address] [id number] [address] [place] [address], [place] [address] 14 Aug, 2012 [facility] [address] [id number] [address] [place] [address], [place] [address] 14 Aug, 2012 [facility] [address] [id number] [address] [place] [address], [place] [address] Aug, [facility] [address] [id number] [address] [place] [address], [place] [address] Aug, [facility] [address] [id number] [address] [place] [address], [place] [address] Jul, [facility] [address] [id number] [address] [place] [address], [place] [address] Jul, [facility] [address] [id number] [address] [place] [address], [place] [address] Jul, [facility] [address] [id number] [address] [place] [address], [place] [address] Jul, [facility] [address] [id number] [address] [place] [address], [place] [address] Jul, [facility] [address] [id number] [address] [place] [address], [place] [address] 15 Jun, 2012 [facility] [address] [id number] [address] [place] [address], [place] [address] 15 Jun, 2012 [facility] [address] [id number] [address] [place] [address], [place] [address] Jun, [facility] [address] [id number] [address] [place] [address], [place] [address] Jun, [facility] [address] [id number] [address] [place] [address], [place] [address] May, [facility] [address] [id number] [address] [place] [address], [place] [address] Apr, [facility] [address] [id number] [address] [place] [address], [place] [address] Apr, [facility] [address] [id number] [address] [place] [address], [place] [address] Apr, [facility] [address] [id number] [address] [place] [address], [place] [address] Apr, [facility] [address] [id number] [address] [place] [address], [place] [address] January, [facility] [address] [id number] [address] [place] [address], [place] [address] January, [facility] [address] [id number] [address] [place] [address], [place] [address] Dec, [facility] [address] [id number] [address] [place] [address], [place] [address] Dec, [facility] [address] [id number] [address] [place] [address], [place] [address] Nov, [facility] [address] [id number] [address] [place] [address], [place] [address] Nov, [facility] [address] [id number] [address] [place] [address], [place] [address] Nov, [facility] [address] [id number] [address] [place] [address], [place] [address] Nov, [facility] [address] [id number] [address] [place] [address], [place] [address] Oct, [facility] [address] [id number] [address] [place] [address], [place] [address] Oct, [facility] [address] [id number] [address] [place] [address], [place] [address] Oct, [facility] [address] [id number] [address] [place] [address], [place] [address] Sep, [facility] [address] [id number] [address] [place] [address], [place] [address] Sep, [facility] [address] [id number] [address] [place] [address], [place] [address] Aug, [facility] [address] [id number] [address] [place] [address], [place] [address] Aug, [facility] [address] [id number] [address] [place] [address], [place] [address] Jul, [facility] [address] [id number] [address] [place] [address], [place] [address] Jul, [facility] [address] [id number] [address] [place] [address], [place] [address] Jul, [facility] [address] [id number] [address] [place] [address], [place] [address] 26 Jun, 2011 [facility] [address] [id number] [address] [place] [address], [place] [address] 24 Jun, 2011 [facility] [address] [id number] [address] [place] [address], [place] [address] 11 Jun, 2011 [facility] [address] [id number] [address] [place] [address], [place] [address] Jun, [facility] [address] [id number] [address] [place] [address], [place] [address] 10 Jun, 2011 [facility] [address] [id number] [address] [place] [address], [place] [address] Jun, [facility] [address] [id number] [address] [place] [address], [place] [address] Aug, [facility] [address] [id number] [address] [place] [address], [place] [address] Aug, [facility] [address] [id number] [address] [place] [address], [place] [address] Aug, [facility] [address] [id number] [address] [place] [address], [place] [address] Jul, [facility] [address] [id number] [address] [place] [address], [place] [address] Jul, [facility] [address] [id number] [address] [place] [address], [place] [address] Jul, [facility] [address] [id number] [address] [place] [address], [place] [address] 15 Jul, 2010 [facility] [address] [id number] [address] [place] [address], [place] [address] 15 Jul, 2010 [facility] [address] [id number] [address] [place] [address], [place] [address] 08 Jul, 2010 [facility] [address] [id number] [address] [place] [address], [place] [address] Jun, [facility] [address] [id number] [address] [place] [address] Apr, [facility] [address] [id number] [address] [place] [id number] Feb, [facility] [address] [id number] [address] [place] [address] Oct, [facility] [address] [id number] [address] [place] [id number] Sep, [facility] [address] [id number] [address] [place] [address] Aug, [facility] [address] [id number] [address] [place] [id number] Aug, [facility] [address] [facility] [id number] [address] [place] [id number] Aug, [facility] [address] [id number] [address] [place] [id number] Jul, [facility] [address] [facility] [id number] [address] [place] [id number] Jun, IMMUNIZATIONS No Known Immunizations SOCIAL HISTORY [...]
--- OUTSIDE RECORDS SUMMARY | 2020-02-22 17:20 | XMS REPORT ---
Author Author Marion CORREA Organization [facility] Address [address] [place] [address] Care Team Providers Care Manager Reimbursement Name Role Phone SHABNAM CORREA Unavailable PROBLEMS Type Condition ICD9-CM Code PBT85-LD Code Onset Dates Condition S tatus SNOMED Code Problem Acquired hypothyroidism E03.9 Active 321436159 Problem Gastro-esophageal reflux disease without esophagitis K21.9 Active 677001581 Problem Cervical disc disease M50.90 Active 472350349 Problem Dyspepsia R10.13 Active 567705772 Problem Migraine without aura and without status migrain osus, not intractable G43.009 Active [id number] ALLERGIES No Information ENCOUNTERS Encounter Location Date Diagnosis [place] [address] [place] [id number] [place] [address] Apr, Cervical disc disease M50.90 [place] [address] [place] [id number] [place] [address] Apr, Cervical disc disease M50.90 ; Gastro-esophageal reflux disease without esophagitis K21.9 and Sinus headache R51 [place] [id number] [place] [address] Apr, [place] [address] [place] [id number] [address] [place] [address] Apr, Cervical disc disease M50.90 [place] [address] [place] [id number] [address] [place] [phone] Mar, [place] [address] [place] [id number] [place] [address] Mar, Cervical disc disease M50.90 [place] [address] [place] [id number] [address] [place] [address] Feb, [facility] [address] [facility] [place] [address] Feb, Cervical disc disease M50.90 [facility] [address] [facility] [place] [address] January, [facility] [address] [id number] [address] [place] [address] January, Cervical disc disease M50.90 [facility] [address] [id number] [address] [place] [address] January, Cervical disc disease M50.90 [facility] [address] [id number] [address] [place] [address] Dec, Cervical disc disease M50.90 [facility] [address] [id number] [address] [place] [address] Dec, Cervical disc disease M50.90 [facility] [address] [id number] [address] [place] [address] Dec, Cervical disc disease M50.90 [facility] [address] [id number] [address] [place] [address] Dec, Cervical disc disease M50.90 ; Acquired hypothyroidism E03.9 and Migraine without aura and without status migrainosus, not intractable G43.009 [facility] [address] [id number] [address] [place] [address] Nov, [facility] [address] [id number] [address] [place] [address] Nov, Cervical disc disease M50.90 [facility] [address] [id number] [address] [place] [address] Oct, Cervical disc disease M50.90 [facility] [address] [id number] [address] [place] [address] Sep, [facility] [address] [id number] [address] [place] [address] Sep, Cervical disc disease M50.90 [facility] [address] [id number] [address] [place] [address] Aug, Cervical disc disease M50.90 [facility] [address] [id number] [address] [place] [address] Jul, Cervical disc disease M50.90 [facility] [address] [id number] [address] [place] [address] Jun, Acute recurrent pansinusitis J01.41 and Cervical disc disease M50.90 [facility] [address] [id number] [address] [place] [address] Jun, Cervical disc disease M50.90 [facility] [address] [id number] [address] [place] [address] May, Cervical disc disease M50.90 [facility] [address] [id number] [address] [place] [address] Apr, Cervical disc disease M50.90 [facility] [address] [id number] [address] [place] [address] Mar, Cervical disc disease M50.90 [facility] [address] [id number] [address] [place] [address] Mar, [facility] [address] [id number] [address] [place] [address] Mar, Cervical disc disease M50.90 [facility] [address] [id number] [address] [place] [address] Feb, Cervical disc disease M50.90 [facility] [address] [id number] [address] [place] [address] January, Cervical disc disease M50.90 [facility] [address] [id number] [address] [place] [address] Dec, [facility] [address] [id number] [address] [place] [address] Dec, Cervical disc disease M50.90 [facility] [address] [facility] [id number] [address] [place] [address] Nov, Cervical disc disease M50.90 [facility] [address] [facility] [id number] [address] [place] [address] Nov, Cervical disc disease M50.90 [facility] [address] [facility] [id number] [address] [place] [address] Oct, Cervical disc disease M50.90 [facility] [address] [facility] [id number] [address] [place] [address] Oct, Cervical disc disease M50.90 and Acute non-recurrent maxillary sinusitis J01.00 [place] [address] [facility] [id number] [address] [place] [address] Sep, Cervical disc disease M50.90 [facility] [address] [place] [id number] [place] [address] Sep, [facility] [address] [place] [id number] [place] [address] Sep, Fatigue, unspecified type R5 3.83 and Cough R05 [place] [address] [place] [id number] [address] [place] [address] Aug, Cervical disc disease M50.90 [facility] [address] [place] [id number] [address] [place] [address] Aug, Sore throat J02.9 ; Canker s ore K12.0 and History of anemia Z86.2 [place] [address] [place] [id number] [address] [place] [address] Jul, Cervical disc disease M50.90 [place] [address] [place] [id number] [address] [place] [address] Jun, Cervical disc disease M50.90 [place] [address] [place] [id number] [address] [place] [phone] Jun, Cervical disc disease M50.90 [facility] [address] [id number] [address] [place] [address] May, Cervical disc disease M50.90 [facility] [address] [id number] [address] [place] [address] Apr, Cervical disc disease M50.90 [facility] [address] [id number] [address] [place] [address] Apr, [facility] [address] [facility] [id number] [address] [place] [address] Feb, Cervical disc disease M50.90 [facility] [address] [facility] [id number] [address] [place] [address] January, Cervical disc disease M50.90 [facility] [address] [facility] [id number] [address] [place] [address] Nov, [facility] [address] [facility] [id number] [address] [place] [address] Nov, Cervical disc disease M50.90 [facility] [address] [facility] [id number] [address] [place] [address] Nov, Acute cystitis with hematuri a N30.01 and Dysuria R30.0 [facility] [address] [facility] [id number] [address] [place] [address] Oct, Cervical disc disease M50.90 and Acute non-recurrent frontal sinusitis J01.10 [facility] [address] [facility] [id number] [address] [place] [address] Sep, Neck pain M54.2 [facility] [address] [facility] [id number] [address] [place] [id number] Sep, [facility] [address] [facility] [id number] [address] [place] [address] Aug, Cervical disc disease M50.90 [facility] [address] [facility] [id number] [address] [place] [phone] Jul, [facility] [address] [id number] [address] [place] [address] Jun, [facility] [address] [id number] [address] [place] [address] May, [facility] [address] [id number] [address] [place] [address] May, Screening for diabetes melli tus Z13.1 ; Chronic fatigue R53.82 and Edema, unspecified type R60.9 [facility] [address] [id number] [address] [place] [address] Apr, Neck pain M54.2 [facility] [address] [id number] [address] [place] [phone] Mar, [facility] [address] [id number] [address] [place] [address] Mar, Neck pain M54.2 [facility] [address] [id number] [address] [place] [phone] Feb, Cervical disc disease M50.90 [facility] [address] [id number] [address] [place] [address] Feb, Cervical disc disease M50.90 [facility] [address] [id number] [address] [place] [id number] January, [facility] [address] [id number] [address] [place] [address] January, [facility] [address] [id number] [address] [place] [address] January, Cervical disc disease M50.90 [facility] [address] [id number] [address] [place] [address] January, [facility] [address] [id number] [address] [place] [address] January, [facility] [address] [id number] [address] [place] [address] Dec, Cervical disc disease M50.90 [facility] [address] [id number] [address] [place] [address] Nov, Cervical disc disease M50.90 [facility] [address] [id number] [address] [place] [address] Oct, Cervical disc disease M50.90 [facility] [address] [id number] [address] [place] [address] Sep, Cervical disc disease M50.90 [facility] [address] [id number] [address] [place] [id number] Aug, Dental caries K02.9 and Enco unter for dental examination Z01.20 [facility] [address] [id number] [address] [place] [phone] Aug, [facility] [address] [id number] [address] [place] [phone] Aug, [facility] [address] [id number] [address] [place] [id number] Aug, Encounter for dental examina tion Z01.20 [facility] [address] [id number] [address] [place] [phone] Jul, [facility] [address] [id number] [address] [place] [address] Jun, Sinusitis J32.9 and Cervical disc disease M50.90 [facility] [address] [id number] [address] [place] [phone] Jun, [facility] [address] [id number] [address] [place] [phone] 24 May, 2015 [facility] [address] [id number] [address] [place] [phone] 23 May, 2015 [facility] [address] [id number] [address] [place] [phone] May, [facility] [address] [id number] [address] [place] [phone] May, [facility] [address] [id number] [address] [place] [address] Apr, Cervical spondylosis without myelopathy 721.0 [facility] [address] [id number] [address] [place] [address] Mar, [facility] [address] [id number] [address] [place] [phone] January, Cervical spondylosis without myelopathy 721.0 [facility] [address] [id number] [address] [place] [id number] Dec, [facility] [address] [id number] [address] [place] [phone] Dec, [facility] [address] [id number] [address] [place] [phone] Dec, [facility] [address] [id number] [address] [place] [phone] Nov, [facility] [address] [id number] [address] [place] [phone] Nov, [facility] [address] [id number] [address] [place] [phone] Oct, [facility] [address] [id number] [address] [place] [phone] Oct, [facility] [address] [id number] [address] [place] [phone] Oct, [facility] [address] [id number] [address] [place] [phone] Oct, [facility] [address] [id number] [address] [place] [id number] Oct, [facility] [address] [id number] [address] [place] [phone] Oct, [facility] [address] [id number] [address] [place] [address], [place] [address] Oct, [facility] [address] [id number] [address] [place] [address], [place] [address] Oct, [facility] [address] [id number] [address] [place] [address], [place] [address] Oct, [facility] [address] [id number] [address] [place] [address], [place] [address] Oct, [facility] [address] [id number] [address] [place] [address], [place] [address] Sep, [facility] [address] [id number] [address] [place] [address], [place] [address] Sep, [facility] [address] [id number] [address] [place] [address], [place] [address] Sep, [facility] [address] [id number] [address] [place] [address], [place] [address] Sep, [facility] [address] [id number] [address] [place] [address], [place] [address] Sep, [facility] [address] [id number] [address] [place] [address], [place] [address] Sep, [facility] [address] [id number] [address] [place] [address], [place] [address] Sep, [facility] [address] [id number] [address] [place] [address], [place] [address] Sep, [facility] [address] [id number] [address] [place] [address], [place] [address] Sep, [facility] [address] [id number] [address] [place] [address], [place] [address] Aug, [facility] [address] [id number] [address] [place] [address], [place] [address] Aug, [facility] [address] [id number] [address] [place] [address], [place] [address] Aug, [facility] [address] [id number] [address] [place] [address], [place] [address] Aug, [facility] [address] [id number] [address] [place] [address], [place] [address] Jul, [facility] [address] [id number] [address] [place] [address], [place] [address] Jul, [facility] [address] [id number] [address] [place] [address], [place] [address] Jul, [facility] [address] [id number] [address] [place] [address], [place] [address] Jul, [facility] [address] [id number] [address] [place] [address], [place] [address] Jul, [facility] [address] [id number] [address] [place] [address], [place] [address] Jul, [facility] [address] [id number] [address] [place] [address], [place] [address] Jul, [facility] [address] [id number] [address] [place] [address], [place] [address] Jul, [facility] [address] [id number] [address] [place] [address], [place] [address] Jun, [facility] [address] [id number] [address] [place] [address], [place] [address] Jun, [facility] [address] [id number] [address] [place] [address], [place] [address] Jun, [facility] [address] [id number] [address] [place] [address], [place] [address] 20 Jun, 2014 [facility] [address] [id number] [address] [place] [address], [place] [address] 16 Jun, 2014 [facility] [address] [id number] [address] [place] [address], [place] [address] 15 Jun, 2014 [facility] [address] [id number] [address] [place] [address], [place] [address] 15 Jun, 2014 [facility] [address] [id number] [address] [place] [address], [place] [address] 14 Jun, 2014 [facility] [address] [id number] [address] [place] [address], [place] [address] 14 Jun, 2014 [facility] [address] [id number] [address] [place] [address], [place] [address] Jun, [facility] [address] [id number] [address] [place] [address], [place] [address] Jun, [facility] [address] [id number] [address] [place] [address], [place] [address] 24 May, 2014 [facility] [address] [id number] [address] [place] [address], [place] [address] 24 May, 2014 [facility] [address] [id number] [address] [place] [address], [place] [address] 08 May, 2014 [facility] [address] [id number] [address] [place] [address], [place] [address] 02 May, 2014 [facility] [address] [id number] [address] [place] [address], [place] [address] May, [facility] [address] [id number] [address] [place] [address], [place] [address] Apr, [facility] [address] [id number] [address] [place] [address], [place] [address] Apr, [facility] [address] [id number] [address] [place] [address], [place] [address] Apr, [facility] [address] [id number] [address] [place] [address], [place] [address] Apr, [facility] [address] [id number] [address] [place] [address], [place] [address] Apr, [facility] [address] [id number] [address] [place] [address], [place] [address] Apr, [facility] [address] [id number] [address] [place] [address], [place] [address] Mar, [facility] [address] [id number] [address] [place] [address], [place] [address] Mar, [facility] [address] [id number] [address] [place] [address], [place] [address] Mar, [facility] [address] [id number] [address] [place] [address], [place] [address] Mar, [facility] [address] [id number] [address] [place] [address], [place] [address] Mar, [facility] [address] [id number] [address] [place] [address], [place] [address] Mar, [facility] [address] [id number] [address] [place] [address], [place] [address] Feb, [facility] [address] [id number] [address] [place] [address], [place] [address] Feb, [facility] [address] [id number] [address] [place] [address], [place] [address] Feb, [facility] [address] [id number] [address] [place] [address], [place] [address] Feb, [facility] [address] [id number] [address] [place] [address], [place] [address] Feb, [facility] [address] [id number] [address] [place] [address], [place] [address] Feb, [facility] [address] [id number] [address] [place] [address], [place] [address] Feb, [facility] [address] [id number] [address] [place] [address], [place] [address] Feb, [facility] [address] [id number] [address] [place] [address], [place] [address] January, [facility] [address] [id number] [address] [place] [address], [place] [address] January, [facility] [address] [id number] [address] [place] [address], [place] [address] January, [facility] [address] [id number] [address] [place] [address], [place] [address] January, [facility] [facility] [address] [id number] [address] [place] [address], [place] [address] January, [facility] [address] [id number] [address] [place] [address], [place] [address] January, [facility] [address] [id number] [address] [place] [address], [place] [address] January, [facility] [address] [id number] [address] [place] [address], [place] [address] January, [facility] [address] [id number] [address] [place] [address], [place] [address] Dec, [facility] [address] [id number] [address] [place] [address], [place] [address] Dec, [facility] [address] [id number] [address] [place] [address], [place] [address] Dec, [facility] [address] [id number] [address] [place] [address], [place] [address] Dec, [facility] [address] [id number] [address] [place] [address], [place] [address] Dec, [facility] [address] [id number] [address] [place] [address], [place] [address] Dec, [facility] [address] [id number] [address] [place] [address], [place] [address] Nov, [facility] [address] [id number] [address] [place] [address], [place] [address] Nov, [facility] [address] [id number] [address] [place] [address], [place] [address] Nov, [facility] [address] [id number] [facility] [place] [address] Nov, [facility] [address] [id number] [facility] [place] [address] Nov, [facility] [address] [id number] [facility] [place] [address] Nov, [facility] [address] [id number] [address] [place] [address], [place] [address] Nov, [facility] [address] [id number] [address] [place] [address], [place] [address] Nov, [facility] [address] [id number] [address] [place] [address], [place] [address] Oct, [facility] [address] [id number] [address] [place] [address], [place] [address] Oct, [facility] [address] [id number] [address] [place] [address], [place] [address] Sep, [facility] [address] [id number] [address] [place] [address], [place] [address] Sep, [facility] [address] [id number] [address] [place] [address], [place] [address] Sep, [facility] [address] [id number] [address] [place] [address], [place] [address] Sep, [facility] [address] [id number] [address] [place] [address], [place] [address] Aug, [facility] [address] [id number] [address] [place] [address], [place] [address] Aug, [facility] [place] [address] [id number] [address] [place] [address], [place] [address] Aug, [facility] [place] [facility] [address] [id number] [address] [place] [address], [place] [address] Aug, [facility] [place] [facility] [address] [id number] [address] [place] [address] Jul, [facility] [address] [id number] [address] [place] [address], [place] [address] Jul, [facility] [address] [id number] [address] [place] [address], [place] [address] Jul, [facility] [address] [id number] [address] [place] [address], [place] [address] Jul, [facility] [address] [id number] [address] [place] [address], [place] [address] Jul, [facility] [address] [id number] [address] [place] [address], [place] [address] Jul, [facility] [address] [id number] [address] [place] [address], [place] [address] Jul, [facility] [address] [id number] [address] [place] [address], [place] [address] Jul, [facility] [address] [id number] [address] [place] [address], [place] [address] Jul, [facility] [address] [id number] [address] [place] [address], [place] [address] Jul, [facility] [address] [id number] [address] [place] [address], [place] [address] Jul, [facility] [address] [id number] [address] [place] [address], [place] [address] Jul, [facility] [address] [id number] [address] [place] [address], [place] [address] Jun, [facility] [address] [id number] [address] [place] [address], [place] [address] Jun, [facility] [address] [id number] [address] [place] [address], [place] [address] Jun, [facility] [address] [id number] [address] [place] [address], [place] [address] Jun, [facility] [address] [id number] [address] [place] [address], [place] [address] 16 Jun, 2013 [facility] [address] [id number] [address] [place] [address], [place] [address] 14 Jun, 2013 [facility] [address] [id number] [address] [place] [address], [place] [address] 14 Jun, 2013 [facility] [address] [id number] [address] [place] [address], [place] [address] Jun, [facility] [address] [id number] [address] [place] [address], [place] [address] 15 May, 2013 [facility] [address] [id number] [address] [place] [address], [place] [address] 05 May, 2013 [facility] [address] [id number] [address] [place] [address], [place] [address] May, [facility] [address] [id number] [address] [place] [address], [place] [address] Apr, [facility] [address] [id number] [address] [place] [address], [place] [address] Apr, [facility] [address] [id number] [address] [place] [address], [place] [address] Mar, [facility] [address] [id number] [address] [place] [address], [place] [address] Mar, [facility] [address] [id number] [address] [place] [address], [place] [address] Feb, [facility] [address] [id number] [address] [place] [address], [place] [address] January, [facility] [address] [id number] [address] [place] [address], [place] [address] January, [facility] [address] [id number] [address] [place] [address], [place] [address] January, [facility] [address] [id number] [address] [place] [address], [place] [address] January, [facility] [address] [id number] [address] [place] [address], [place] [address] January, [facility] [address] [id number] [address] [place] [address], [place] [address] 29 Dec, 2012 [facility] [address] [id number] [address] [place] [address], [place] [address] Dec, [facility] [address] [id number] [address] [place] [address], [place] [address] Dec, [facility] [address] [id number] [address] [place] [address], [place] [address] Nov, [facility] [address] [id number] [address] [place] [address], [place] [address] 27 Oct, 2012 [facility] [address] [id number] [address] [place] [address], [place] [address] 18 Oct, 2012 [facility] [address] [id number] [address] [place] [address], [place] [address] 15 Oct, 2012 [facility] [address] [id number] [address] [place] [address], [place] [address] Sep, [facility] [address] [id number] [address] [place] [address], [place] [address] 16 Sep, 2012 [facility] [address] [id number] [address] [place] [address], [place] [address] 14 Aug, 2012 [facility] [address] [id number] [address] [place] [address], [place] [address] 14 Aug, 2012 [facility] [address] [id number] [address] [place] [address], [place] [address] Aug, [facility] [address] [id number] [address] [place] [address], [place] [address] Aug, [facility] [address] [id number] [address] [place] [address], [place] [address] Jul, [facility] [address] [id number] [address] [place] [address], [place] [address] Jul, [facility] [address] [id number] [address] [place] [address], [place] [address] Jul, [facility] [address] [id number] [address] [place] [address], [place] [address] Jul, [facility] [address] [id number] [address] [place] [address], [place] [address] Jul, [facility] [address] [id number] [address] [place] [address], [place] [address] 15 Jun, 2012 [facility] [address] [id number] [address] [place] [address], [place] [address] 15 Jun, 2012 [facility] [address] [id number] [address] [place] [address], [place] [address] Jun, [facility] [address] [id number] [address] [place] [address], [place] [address] Jun, [facility] [address] [id number] [address] [place] [address], [place] [address] May, [facility] [address] [id number] [address] [place] [address], [place] [address] Apr, [facility] [address] [id number] [address] [place] [address], [place] [address] Apr, [facility] [address] [id number] [address] [place] [address], [place] [address] Apr, [facility] [address] [id number] [address] [place] [address], [place] [address] Apr, [facility] [address] [id number] [address] [place] [address], [place] [address] January, [facility] [address] [id number] [address] [place] [address], [place] [address] January, [facility] [address] [id number] [address] [place] [address], [place] [address] Dec, [facility] [address] [id number] [address] [place] [address], [place] [address] Dec, [facility] [address] [id number] [address] [place] [address], [place] [address] Nov, [facility] [address] [id number] [address] [place] [address], [place] [address] Nov, [facility] [address] [id number] [address] [place] [address], [place] [address] Nov, [facility] [address] [id number] [address] [place] [address], [place] [address] Nov, [facility] [address] [id number] [address] [place] [address], [place] [address] Oct, [facility] [address] [id number] [address] [place] [address], [place] [address] Oct, [facility] [address] [id number] [address] [place] [address], [place] [address] Oct, [facility] [address] [id number] [address] [place] [address], [place] [address] Sep, [facility] [address] [id number] [address] [place] [address], [place] [address] Sep, [facility] [address] [id number] [address] [place] [address], [place] [address] Aug, [facility] [address] [id number] [address] [place] [address], [place] [address] Aug, [facility] [address] [id number] [address] [place] [address], [place] [address] Jul, [facility] [address] [id number] [address] [place] [address], [place] [address] Jul, [facility] [address] [id number] [address] [place] [address], [place] [address] Jul, [facility] [address] [id number] [address] [place] [address], [place] [address] 26 Jun, 2011 [facility] [address] [id number] [address] [place] [address], [place] [address] 24 Jun, 2011 [facility] [address] [id number] [address] [place] [address], [place] [address] 11 Jun, 2011 [facility] [address] [id number] [address] [place] [address], [place] [address] Jun, [facility] [address] [id number] [address] [place] [address], [place] [address] 10 Jun, 2011 [facility] [address] [id number] [address] [place] [address], [place] [address] Jun, [facility] [address] [id number] [address] [place] [address], [place] [address] Aug, [facility] [address] [id number] [address] [place] [address], [place] [address] Aug, [facility] [address] [id number] [address] [place] [address], [place] [address] Aug, [facility] [address] [id number] [address] [place] [address], [place] [address] Jul, [facility] [address] [id number] [address] [place] [address], [place] [address] Jul, [facility] [address] [id number] [address] [place] [address], [place] [address] Jul, [facility] [address] [id number] [address] [place] [address], [place] [address] 15 Jul, 2010 [facility] [address] [id number] [address] [place] [address], [place] [address] 15 Jul, 2010 [facility] [address] [id number] [address] [place] [address], [place] [address] 08 Jul, 2010 [facility] [address] [id number] [address] [place] [address], [place] [address] Jun, [facility] [address] [id number] [address] [place] [address] Apr, [facility] [address] [id number] [address] [place] [address] Feb, [facility] [address] [id number] [address] [place] [address] Oct, [facility] [address] [id number] [address] [place] [address] Sep, [facility] [address] [id number] [address] [place] [address] Aug, [facility] [address] [id number] [address] [place] [address] Aug, [facility] [address] [id number] [address] [place] [address] Aug, [facility] [address] [id number] [address] [place] [address] Jul, [facility] [address] [id number] [address] [place] [address] Jun, IMMUNIZATIONS No Known Immunizations SOCIAL HISTORY Never Assessed REASON FOR VISIT PLAN OF CARE VITAL SIGNS Height 65 in 2014-06-13 Weight 175.11 lbs 2014-06-13 Temperature 98.9 degrees Fahrenheit 2014-06-13 Heart Rate 88 bpm 2014-06-13 Respiratory Rate 18 2014-06-13 Blood pressure systolic 138 mmHg 2014-06-13 Blood pressure diastolic 90 mmHg 2014-06-13 MEDICATIONS Unknown Medications RESULTS No Results PROCEDURES [...]
--- OUTSIDE RECORDS SUMMARY | 2020-02-22 17:20 | XMS REPORT ---
Author Author Marion CORREA Organization [facility] Address [address] [place] [address] Care Team Providers Care Field Application Engineer Name Role Phone SHABNAM CORREA Unavailable PROBLEMS Type Condition ICD9-CM Code [id number] Code Onset Dates Condition S tatus SNOMED Code Problem Acquired hypothyroidism E03.9 Active 930497636 Problem Gastro-esophageal reflux disease without esophagitis K21.9 Active 364837743 Problem Cervical disc disease M50.90 Active 546505079 Problem Dyspepsia R10.13 Active 175889170 Problem Migraine without aura and without status migrain osus, not intractable G43.009 Active 551570901 ALLERGIES No Information ENCOUNTERS Encounter Location Date Diagnosis [place] [address] [place] [id number] [place] [address] Apr, Cervical disc disease M50.90 [place] [address] [place] [id number] [place] [phone] Apr, Cervical disc disease M50.90 ; Gastro-esophageal reflux disease without esophagitis K21.9 and Sinus headache R51 [place] [id number] [place] [address] Apr, [place] [address] [place] [id number] [address] [place] [address] Apr, Cervical disc disease M50.90 [place] [address] [place] [id number] [address] [place] [address] Mar, [place] [address] [place] [id number] [place] [address] Mar, Cervical disc disease M50.90 [place] [address] [place] [id number] [address] [place] [phone] Feb, [facility] [address] [facility] [place] [address] Feb, Cervical disc disease M50.90 [facility] [address] [facility] [place] [address] January, [facility] [address] [id number] [address] [place] [address] January, Cervical disc disease M50.90 [facility] [address] [id number] [address] [place] [address] January, Cervical disc disease M50.90 [facility] [address] [id number] [address] [place] [address] Dec, Cervical disc disease M50.90 [facility] [address] [id number] [address] [place] [address] Dec, Cervical disc disease M50.90 [facility] [address] [id number] [address] [place] [address] Dec, Cervical disc disease M50.90 [facility] [address] [id number] [address] [place] [address] Dec, Cervical disc disease M50.90 ; Acquired hypothyroidism E03.9 and Migraine without aura and without status migrainosus, not intractable G43.009 [facility] [address] [id number] [address] [place] [address] Nov, [facility] [address] [id number] [address] [place] [address] Nov, Cervical disc disease M50.90 [facility] [address] [id number] [address] [place] [address] Oct, Cervical disc disease M50.90 [facility] [address] [id number] [address] [place] [address] Sep, [facility] [address] [id number] [address] [place] [address] Sep, Cervical disc disease M50.90 [facility] [address] [id number] [address] [place] [address] Aug, Cervical disc disease M50.90 [facility] [address] [id number] [address] [place] [address] Jul, Cervical disc disease M50.90 [facility] [address] [id number] [address] [place] [address] Jun, Acute recurrent pansinusitis J01.41 and Cervical disc disease M50.90 [facility] [address] [id number] [address] [place] [address] Jun, Cervical disc disease M50.90 [facility] [address] [id number] [address] [place] [address] May, Cervical disc disease M50.90 [facility] [address] [id number] [address] [place] [address] Apr, Cervical disc disease M50.90 [facility] [address] [id number] [address] [place] [address] Mar, Cervical disc disease M50.90 [facility] [address] [id number] [address] [place] [address] Mar, [facility] [address] [id number] [address] [place] [address] Mar, Cervical disc disease M50.90 [facility] [address] [id number] [address] [place] [address] Feb, Cervical disc disease M50.90 [facility] [address] [id number] [address] [place] [address] January, Cervical disc disease M50.90 [facility] [address] [id number] [address] [place] [address] Dec, [facility] [address] [id number] [address] [place] [address] Dec, Cervical disc disease M50.90 [facility] [address] [facility] [id number] [address] [place] [address] Nov, Cervical disc disease M50.90 [facility] [address] [facility] [id number] [address] [place] [address] Nov, Cervical disc disease M50.90 [facility] [address] [facility] [id number] [address] [place] [address] Oct, Cervical disc disease M50.90 [facility] [address] [facility] [id number] [address] [place] [address] Oct, Cervical disc disease M50.90 and Acute non-recurrent maxillary sinusitis J01.00 [place] [address] [facility] [id number] [address] [place] [address] Sep, Cervical disc disease M50.90 [facility] [address] [place] [id number] [place] [address] Sep, [facility] [address] [place] [id number] [place] [address] Sep, Fatigue, unspecified type R5 3.83 and Cough R05 [place] [address] [place] [id number] [address] [place] [address] Aug, Cervical disc disease M50.90 [facility] [address] [place] [id number] [address] [place] [address] Aug, Sore throat J02.9 ; Canker s ore K12.0 and History of anemia Z86.2 [place] [address] [place] [id number] [address] [place] [address] Jul, Cervical disc disease M50.90 [place] [address] [place] [id number] [address] [place] [address] Jun, Cervical disc disease M50.90 [place] [address] [place] [id number] [address] [place] [address] Jun, Cervical disc disease M50.90 [facility] [address] [id number] [address] [place] [address] May, Cervical disc disease M50.90 [facility] [address] [id number] [address] [place] [address] Apr, Cervical disc disease M50.90 [facility] [address] [id number] [address] [place] [phone] Apr, [facility] [address] [facility] [id number] [address] [place] [address] Feb, Cervical disc disease M50.90 [facility] [address] [facility] [id number] [address] [place] [address] January, Cervical disc disease M50.90 [facility] [address] [facility] [id number] [address] [place] [address] Nov, [facility] [address] [facility] [id number] [address] [place] [address] Nov, Cervical disc disease M50.90 [facility] [address] [facility] [id number] [address] [place] [address] Nov, Acute cystitis with hematuri a N30.01 and Dysuria R30.0 [facility] [address] [facility] [id number] [address] [place] [address] Oct, Cervical disc disease M50.90 and Acute non-recurrent frontal sinusitis J01.10 [facility] [address] [facility] [id number] [address] [place] [address] Sep, Neck pain M54.2 [facility] [address] [facility] [id number] [address] [place] [address] Sep, [facility] [address] [facility] [id number] [address] [place] [address] Aug, Cervical disc disease M50.90 [facility] [address] [facility] [id number] [address] [place] [address] Jul, [facility] [address] [id number] [address] [place] [address] Jun, [facility] [address] [id number] [address] [place] [phone] May, [facility] [address] [id number] [address] [place] [address] May, Screening for diabetes melli tus Z13.1 ; Chronic fatigue R53.82 and Edema, unspecified type R60.9 [facility] [address] [id number] [address] [place] [address] Apr, Neck pain M54.2 [facility] [address] [id number] [address] [place] [address] Mar, [facility] [address] [id number] [address] [place] [address] Mar, Neck pain M54.2 [facility] [address] [id number] [address] [place] [address] Feb, Cervical disc disease M50.90 [facility] [address] [id number] [address] [place] [address] Feb, Cervical disc disease M50.90 [facility] [address] [id number] [address] [place] [phone] January, [facility] [address] [id number] [address] [place] [address] January, [facility] [address] [id number] [address] [place] [address] January, Cervical disc disease M50.90 [facility] [address] [id number] [address] [place] [address] January, [facility] [address] [id number] [address] [place] [address] January, [facility] [address] [id number] [address] [place] [address] Dec, Cervical disc disease M50.90 [facility] [address] [id number] [address] [place] [address] Nov, Cervical disc disease M50.90 [facility] [address] [id number] [address] [place] [address] Oct, Cervical disc disease M50.90 [facility] [address] [id number] [address] [place] [address] Sep, Cervical disc disease M50.90 [facility] [address] [id number] [address] [place] [id number] Aug, Dental caries K02.9 and Enco unter for dental examination Z01.20 [facility] [address] [id number] [address] [place] [phone] Aug, [facility] [address] [id number] [address] [place] [address] Aug, [facility] [address] [id number] [address] [place] [address] [id number] Aug, Encounter for dental examina tion Z01.20 [facility] [address] [id number] [address] [place] [phone] Jul, [facility] [address] [id number] [address] [place] [address] Jun, Sinusitis J32.9 and Cervical disc disease M50.90 [facility] [address] [id number] [address] [place] [phone] Jun, [facility] [address] [id number] [address] [place] [id number] 24 May, 2015 [facility] [address] [id number] [address] [place] [phone] 23 May, 2015 [facility] [address] [id number] [address] [place] [phone] May, [facility] [address] [id number] [address] [place] [id number] May, [facility] [address] [id number] [address] [place] [phone] Apr, Cervical spondylosis without myelopathy 721.0 [facility] [address] [id number] [address] [place] [address] Mar, [facility] [address] [id number] [address] [place] [phone] January, Cervical spondylosis without myelopathy 721.0 [facility] [address] [id number] [address] [place] [phone] Dec, [facility] [address] [id number] [address] [place] [phone] Dec, [facility] [address] [id number] [address] [place] [phone] Dec, [facility] [address] [id number] [address] [place] [phone] Nov, [facility] [address] [id number] [address] [place] [phone] Nov, [facility] [address] [id number] [address] [place] [phone] Oct, [facility] [address] [id number] [address] [place] [phone] Oct, [facility] [address] [id number] [address] [place] [phone] Oct, [facility] [address] [id number] [address] [place] [phone] Oct, [facility] [address] [id number] [address] [place] [phone] Oct, [facility] [address] [id number] [address] [place] [phone] Oct, [facility] [address] [id number] [address] [place] [address], [place] [address] Oct, [facility] [address] [id number] [address] [place] [address], [place] [address] Oct, [facility] [address] [id number] [address] [place] [address], [place] [address] Oct, [facility] [address] [id number] [address] [place] [address], [place] [address] Oct, [facility] [address] [id number] [address] [place] [address], [place] [address] Sep, [facility] [address] [id number] [address] [place] [address], [place] [address] Sep, [facility] [address] [id number] [address] [place] [address], [place] [address] Sep, [facility] [address] [id number] [address] [place] [address], [place] [address] Sep, [facility] [address] [id number] [address] [place] [address], [place] [address] Sep, [facility] [address] [id number] [address] [place] [address], [place] [address] Sep, [facility] [address] [id number] [address] [place] [address], [place] [address] Sep, [facility] [address] [id number] [address] [place] [address], [place] [address] Sep, [facility] [address] [id number] [address] [place] [address], [place] [address] Sep, [facility] [address] [id number] [address] [place] [address], [place] [address] Aug, [facility] [address] [id number] [address] [place] [address], [place] [address] Aug, [facility] [address] [id number] [address] [place] [address], [place] [address] Aug, [facility] [address] [id number] [address] [place] [address], [place] [address] Aug, [facility] [address] [id number] [address] [place] [address], [place] [address] Jul, [facility] [address] [id number] [address] [place] [address], [place] [address] Jul, [facility] [address] [id number] [address] [place] [address], [place] [address] Jul, [facility] [address] [id number] [address] [place] [address], [place] [address] Jul, [facility] [address] [id number] [address] [place] [address], [place] [address] Jul, [facility] [address] [id number] [address] [place] [address], [place] [address] Jul, [facility] [address] [id number] [address] [place] [address], [place] [address] Jul, [facility] [address] [id number] [address] [place] [address], [place] [address] Jul, [facility] [address] [id number] [address] [place] [address], [place] [address] Jun, [facility] [address] [id number] [address] [place] [address], [place] [address] Jun, [facility] [address] [id number] [address] [place] [address], [place] [address] Jun, [facility] [address] [id number] [address] [place] [address], [place] [address] 20 Jun, 2014 [facility] [address] [id number] [address] [place] [address], [place] [address] 16 Jun, 2014 [facility] [address] [id number] [address] [place] [address], [place] [address] 15 Jun, 2014 [facility] [address] [id number] [address] [place] [address], [place] [address] 15 Jun, 2014 [facility] [address] [id number] [address] [place] [address], [place] [address] 14 Jun, 2014 [facility] [address] [id number] [address] [place] [address], [place] [address] 14 Jun, 2014 [facility] [address] [id number] [address] [place] [address], [place] [address] Jun, [facility] [address] [id number] [address] [place] [address], [place] [address] Jun, [facility] [address] [id number] [address] [place] [address], [place] [address] 24 May, 2014 [facility] [address] [id number] [address] [place] [address], [place] [address] 24 May, 2014 [facility] [address] [id number] [address] [place] [address], [place] [address] 08 May, 2014 [facility] [address] [id number] [address] [place] [address], [place] [address] 02 May, 2014 [facility] [address] [id number] [address] [place] [address], [place] [address] May, [facility] [address] [id number] [address] [place] [address], [place] [address] Apr, [facility] [address] [id number] [address] [place] [address], [place] [address] Apr, [facility] [address] [id number] [address] [place] [address], [place] [address] Apr, [facility] [address] [id number] [address] [place] [address], [place] [address] Apr, [facility] [address] [id number] [address] [place] [address], [place] [address] Apr, [facility] [address] [id number] [address] [place] [address], [place] [address] Apr, [facility] [address] [id number] [address] [place] [address], [place] [address] Mar, [facility] [address] [id number] [address] [place] [address], [place] [address] Mar, [facility] [address] [id number] [address] [place] [address], [place] [address] Mar, [facility] [address] [id number] [address] [place] [address], [place] [address] Mar, [facility] [address] [id number] [address] [place] [address], [place] [address] Mar, [facility] [address] [id number] [address] [place] [address], [place] [address] Mar, [facility] [address] [id number] [address] [place] [address], [place] [address] Feb, [facility] [address] [id number] [address] [place] [address], [place] [address] Feb, [facility] [address] [id number] [address] [place] [address], [place] [address] Feb, [facility] [address] [id number] [address] [place] [address], [place] [address] Feb, [facility] [address] [id number] [address] [place] [address], [place] [address] Feb, [facility] [address] [id number] [address] [place] [address], [place] [address] Feb, [facility] [address] [id number] [address] [place] [address], [place] [address] Feb, [facility] [address] [id number] [address] [place] [address], [place] [address] Feb, [facility] [address] [id number] [address] [place] [address], [place] [address] January, [facility] [address] [id number] [address] [place] [address], [place] [address] January, [facility] [address] [id number] [address] [place] [address], [place] [address] January, [facility] [address] [id number] [address] [place] [address], [place] [address] January, [facility] [address] [id number] [address] [place] [address], [place] [address] January, [facility] [address] [id number] [address] [place] [address], [place] [address] January, [facility] [address] [id number] [address] [place] [address], [place] [address] January, [facility] [address] [id number] [address] [place] [address], [place] [address] January, [facility] [address] [id number] [address] [place] [address], [place] [address] Dec, [facility] [address] [id number] [address] [place] [address], [place] [address] Dec, [facility] [address] [id number] 08 [place] [address], [place] [address] Dec, [facility] [address] [id number] [address] [place] [address], [place] [address] Dec, [facility] [address] [id number] [address] [place] [address], [place] [address] Dec, [facility] [address] [id number] [address] [place] [address], [place] [address] Dec, [facility] [place] [facility] [address] [id number] [address] [place] [address], [place] [address] Nov, [facility] [address] [id number] [address] [place] [address], [place] [address] Nov, [facility] [address] [id number] [address] [place] [address], [place] [address] Nov, [facility] [address] [id number] [facility] [place] [address] Nov, [facility] [place] [address] [id number] [facility] [place] [address] Nov, [facility] [address] [id number] [facility] [place] [address] Nov, [facility] [place] [facility] [address] [id number] [address] [place] [address], [place] [address] Nov, [facility] [address] [id number] [address] [place] [address], [place] [address] Nov, [facility] [address] [id number] [address] [place] [address], [place] [address] Oct, [facility] [address] [id number] [address] [place] [address], [place] [address] Oct, [facility] [address] [id number] [address] [place] [address], [place] [address] Sep, [facility] [address] [id number] [address] [place] [address], [place] [address] Sep, [facility] [address] [id number] [address] [place] [address], [place] [address] Sep, [facility] [address] [id number] [address] [place] [address], [place] [address] Sep, [facility] [address] [id number] [address] [place] [address], [place] [address] Aug, [facility] [address] [id number] [address] [place] [address], [place] [address] Aug, [facility] [place] [address] [id number] [address] [place] [address], [place] [address] Aug, [facility] [place] [address] [id number] [address] [place] [address], [place] [address] Aug, [facility] [place] [address] [id number] [address] [place] [address] Jul, [facility] [address] [id number] [address] [place] [address], [place] [address] Jul, [facility] [address] [id number] [address] [place] [address], [place] [address] Jul, [facility] [address] [id number] [address] [place] [address], [place] [address] Jul, [facility] [address] [id number] [address] [place] [address], [place] [address] Jul, [facility] [address] [id number] [address] [place] [address], [place] [address] Jul, [facility] [address] [id number] [address] [place] [address], [place] [address] Jul, [facility] [address] [id number] [address] [place] [address], [place] [address] Jul, [facility] [address] [id number] [address] [place] [address], [place] [address] Jul, [facility] [address] [id number] [address] [place] [address], [place] [address] Jul, [facility] [address] [id number] [address] [place] [address], [place] [address] Jul, [facility] [address] [id number] [address] [place] [address], [place] [address] Jul, [facility] [address] [id number] [address] [place] [address], [place] [address] Jun, [facility] [address] [id number] [address] [place] [address], [place] [address] Jun, [facility] [address] [id number] [address] [place] [address], [place] [address] Jun, [facility] [address] [id number] [address] [place] [address], [place] [address] Jun, [facility] [address] [id number] [address] [place] [address], [place] [address] 16 Jun, 2013 [facility] [address] [id number] [address] [place] [address], [place] [address] 14 Jun, 2013 [facility] [address] [id number] [address] [place] [address], [place] [address] 14 Jun, 2013 [facility] [address] [id number] [address] [place] [address], [place] [address] Jun, [facility] [address] [id number] [address] [place] [address], [place] [address] 15 May, 2013 [facility] [address] [id number] [address] [place] [address], [place] [address] 05 May, 2013 [facility] [address] [id number] [address] [place] [address], [place] [address] May, [facility] [address] [id number] [address] [place] [address], [place] [address] Apr, [facility] [address] [id number] [address] [place] [address], [place] [address] Apr, [facility] [address] [id number] [address] [place] [address], [place] [address] Mar, [facility] [address] [id number] [address] [place] [address], [place] [address] Mar, [facility] [address] [id number] [address] [place] [address], [place] [address] Feb, [facility] [address] [id number] [address] [place] [address], [place] [address] January, [facility] [address] [id number] [address] [place] [address], [place] [address] January, [facility] [address] [id number] [address] [place] [address], [place] [address] January, [facility] [address] [id number] [address] [place] [address], [place] [address] January, [facility] [address] [id number] [address] [place] [address], [place] [address] January, [facility] [address] [id number] [address] [place] [address], [place] [address] 29 Dec, 2012 [facility] [address] [id number] [address] [place] [address], [place] [address] Dec, [facility] [address] [id number] [address] [place] [address], [place] [address] Dec, [facility] [address] [id number] [address] [place] [address], [place] [address] Nov, [facility] [address] [id number] [address] [place] [address], [place] [address] 27 Oct, 2012 [facility] [address] [id number] [address] [place] [address], [place] [address] 18 Oct, 2012 [facility] [address] [id number] [address] [place] [address], [place] [address] 15 Oct, 2012 [facility] [address] [id number] [address] [place] [address], [place] [address] Sep, [facility] [address] [id number] [address] [place] [address], [place] [address] 16 Sep, 2012 [facility] [address] [id number] [address] [place] [address], [place] [address] 14 Aug, 2012 [facility] [address] [id number] [address] [place] [address], [place] [address] 14 Aug, 2012 [facility] [address] [id number] [address] [place] [address], [place] [address] Aug, [facility] [address] [id number] [address] [place] [address], [place] [address] Aug, [facility] [address] [id number] [address] [place] [address], [place] [address] Jul, [facility] [address] [id number] [address] [place] [address], [place] [address] Jul, [facility] [address] [id number] [address] [place] [address], [place] [address] Jul, [facility] [address] [id number] [address] [place] [address], [place] [address] Jul, [facility] [address] [id number] [address] [place] [address], [place] [address] Jul, [facility] [address] [id number] [address] [place] [address], [place] [address] 15 Jun, 2012 [facility] [address] [id number] [address] [place] [address], [place] [address] 15 Jun, 2012 [facility] [address] [id number] [address] [place] [address], [place] [address] Jun, [facility] [address] [id number] [address] [place] [address], [place] [address] Jun, [facility] [address] [id number] [address] [place] [address], [place] [address] May, [facility] [address] [id number] [address] [place] [address], [place] [address] Apr, [facility] [address] [id number] [address] [place] [address], [place] [address] Apr, [facility] [address] [id number] [address] [place] [address], [place] [address] Apr, [facility] [address] [id number] [address] [place] [address], [place] [address] Apr, [facility] [address] [id number] [address] [place] [address], [place] [address] January, [facility] [address] [id number] [address] [place] [address], [place] [address] January, [facility] [address] [id number] [address] [place] [address], [place] [address] Dec, [facility] [address] [id number] [address] [place] [address], [place] [address] Dec, [facility] [address] [id number] [address] [place] [address], [place] [address] Nov, [facility] [address] [id number] [address] [place] [address], [place] [address] Nov, [facility] [address] [id number] [address] [place] [address], [place] [address] Nov, [facility] [address] [id number] [address] [place] [address], [place] [address] Nov, [facility] [address] [id number] [address] [place] [address], [place] [address] Oct, [facility] [address] [id number] [address] [place] [address], [place] [address] Oct, [facility] [address] [id number] [address] [place] [address], [place] [address] Oct, [facility] [address] [id number] [address] [place] [address], [place] [address] Sep, [facility] [address] [id number] [address] [place] [address], [place] [address] Sep, [facility] [address] [id number] [address] [place] [address], [place] [address] Aug, [facility] [address] [id number] [address] [place] [address], [place] [address] Aug, [facility] [address] [id number] [address] [place] [address], [place] [address] Jul, [facility] [address] [id number] [address] [place] [address], [place] [address] Jul, [facility] [address] [id number] [address] [place] [address], [place] [address] Jul, [facility] [address] [id number] [address] [place] [address], [place] [address] 26 Jun, 2011 [facility] [address] [id number] [address] [place] [address], [place] [address] 24 Jun, 2011 [facility] [address] [id number] [address] [place] [address], [place] [address] 11 Jun, 2011 [facility] [address] [id number] [address] [place] [address], [place] [address] Jun, [facility] [address] [id number] [address] [place] [address], [place] [address] 10 Jun, 2011 [facility] [address] [id number] [address] [place] [address], [place] [address] Jun, [facility] [address] [id number] [address] [place] [address], [place] [address] Aug, [facility] [address] [id number] [address] [place] [address], [place] [address] Aug, [facility] [address] [id number] [address] [place] [address], [place] [address] Aug, [facility] [address] [id number] [address] [place] [address], [place] [address] Jul, [facility] [address] [id number] [address] [place] [address], [place] [address] Jul, [facility] [address] [id number] [address] [place] [address], [place] [address] Jul, [facility] [address] [id number] [address] [place] [address], [place] [address] 15 Jul, 2010 [facility] [address] [id number] [address] [place] [address], [place] [address] 15 Jul, 2010 [facility] [address] [id number] [address] [place] [address], [place] [address] 08 Jul, 2010 [facility] [address] [id number] [address] [place] [address], [place] [address] Jun, [facility] [address] [id number] [address] [place] [id number] Apr, [facility] [address] [id number] [address] [place] [address] Feb, [facility] [address] [id number] [address] [place] [address] Oct, [facility] [address] [id number] [address] [place] [address] Sep, [facility] [address] [id number] [address] [place] [id number] Aug, [facility] [address] [id number] [address] [place] [address] Aug, [facility] [address] [id number] [address] [place] [address] Aug, [facility] [address] [id number] [address] [place] [id number] Jul, [facility] [address] [id number] [address] [place] [id number] Jun, IMMUNIZATIONS No Known Immunizations SOCIAL HISTORY Never Assessed REASON FOR VISIT PLAN OF CARE VITAL SIGNS Height 65 in 2014-05-05 Weight 169.5 lbs 2014-05-05 Temperature 97.4 degrees Fahrenheit 2014-05-05 Heart Rate 84 bpm 2014-05-05 Respiratory Rate 16 2014-05-05 Blood pressure systolic 126 mmHg 2014-05-05 Blood pressure diastolic 80 mmHg 2014-05-05 MEDICATIONS Unknown Medications RESULTS No Results PROCEDURES [...]
--- OUTSIDE RECORDS SUMMARY | 2020-02-22 17:21 | XMS REPORT ---
Author Author Marion CORREA Organization [facility] Address [address] [place] [address] Care Team Providers Care Surveyor Rod Helper Name Role Phone SHABNAM CORREA Unavailable PROBLEMS Type Condition ICD9-CM Code [id number] Code Onset Dates Condition S tatus SNOMED Code Problem Migraine without aura and without status migrain osus, not intractable G43.009 Active 238794328 Problem Acquired hypothyroidism E03.9 Active 584296870 Problem Cervical disc disease M50.90 Active 949211378 Problem Dyspepsia R10.13 Active [id number] ALLERGIES No Information ENCOUNTERS Encounter Location Date Diagnosis [facility] [address] [facility] [id number] [address] [place] [address] Apr, [facility] [address] [id number] [address] [place] [address] Apr, [facility] [address] [id number] [address] [place] [address] Apr, Cervical disc disease M50.90 [facility] [address] [id number] [address] [place] [address] Mar, [facility] [address] [facility] [id number] [address] [place] [address] Mar, Cervical disc disease M50.90 [facility] [address] [facility] [id number] [address] [place] [address] Feb, [address] [address] Feb, Cervical disc disease M50.[address] [address] January, [facility] [address] [facility] [id number] [address] [place] [address] January, Cervical disc disease M50.90 [facility] [address] [id number] [address] [place] [address] January, Cervical disc disease M50.90 [facility] [address] [id number] [address] [place] [address] Dec, Cervical disc disease M50.90 [facility] [address] [facility] [id number] [address] [place] [address] Dec, Cervical disc disease M50.90 [facility] [address] [facility] [id number] [address] [place] [address] Dec, Cervical disc disease M50.90 [facility] [address] [facility] [id number] [address] [place] [address] Dec, Cervical disc disease M50.90 ; Acquired hypothyroidism E03.9 and Migraine without aura and without status migrainosus, not intractable G43.009 [facility] [address] [facility] [id number] [address] [place] [address] Nov, [facility] [address] [facility] [id number] [address] [place] [address] Nov, Cervical disc disease M50.90 [facility] [address] [facility] [id number] [address] [place] [address] Oct, Cervical disc disease M50.90 [facility] [address] [id number] [address] [place] [address] Sep, [facility] [address] [facility] [id number] [address] [place] [address] Sep, Cervical disc disease M50.90 [facility] [address] [id number] [address] [place] [address] Aug, Cervical disc disease M50.90 [facility] [address] [facility] [id number] [address] [place] [address] Jul, Cervical disc disease M50.90 [facility] [address] [id number] [address] [place] [address] Jun, Acute recurrent pansinusitis J01.41 and Cervical disc disease M50.90 [facility] [address] [id number] [address] [place] [address] Jun, Cervical disc disease M50.90 [facility] [address] [id number] [address] [place] [address] May, Cervical disc disease M50.90 [facility] [address] [id number] [address] [place] [address] Apr, Cervical disc disease M50.90 [facility] [address] [id number] [address] [place] [address] Mar, Cervical disc disease M50.90 [facility] [address] [id number] [address] [place] [address] Mar, [facility] [address] [id number] [address] [place] [address] Mar, Cervical disc disease M50.90 [facility] [address] [id number] [address] [place] [address] Feb, Cervical disc disease M50.90 [facility] [address] [id number] [address] [place] [address] January, Cervical disc disease M50.90 [facility] [address] [id number] [address] [place] [address] Dec, [facility] [address] [id number] [address] [place] [address] Dec, Cervical disc disease M50.90 [facility] [address] [id number] [address] [place] [address] Nov, Cervical disc disease M50.90 [facility] [address] [id number] [address] [place] [address] Nov, Cervical disc disease M50.90 [facility] [address] [facility] [id number] [address] [place] [address] 15 Oct, 2017 Cervical disc disease M50.90 [facility] [address] [facility] [id number] [address] [place] [address] Oct, Cervical disc disease M50.90 and Acute non-recurrent maxillary sinusitis J01.00 [facility] [address] [facility] [id number] [address] [place] [address] Sep, Cervical disc disease M50.90 [facility] [address] [facility] [id number] [address] [place] [address] Sep, [facility] [address] [place] [id number] [place] [address] Sep, Fatigue, unspecified type R5 3.83 and Cough R05 [place] [address] [place] [id number] [address] [place] [address] Aug, Cervical disc disease M50.90 [facility] [address] [place] [id number] [address] [place] [address] Aug, Sore throat J02.9 ; Canker s ore K12.0 and History of anemia Z86.2 [facility] [address] [place] [id number] [address] [place] [address] Jul, Cervical disc disease M50.90 [facility] [address] [place] [id number] [address] [place] [address] Jun, Cervical disc disease M50.90 [place] [address] [place] [id number] [address] [place] [address] Jun, Cervical disc disease M50.90 [place] [address] [place] [id number] [address] [place] [address] May, Cervical disc disease M50.90 [facility] [address] [place] [id number] [address] [place] [address] Apr, Cervical disc disease M50.90 [facility] [address] [id number] [address] [place] [address] Apr, [facility] [address] [facility] [id number] [address] [place] [address] Feb, Cervical disc disease M50.90 [facility] [address] [facility] [id number] [address] [place] [address] January, Cervical disc disease M50.90 [facility] [address] [id number] [address] [place] [address] Nov, [facility] [address] [facility] [id number] [address] [place] [address] Nov, Cervical disc disease M50.90 [facility] [address] [facility] [id number] [address] [place] [address] Nov, Acute cystitis with hematuri a N30.01 and Dysuria R30.0 [facility] [address] [facility] [id number] [address] [place] [address] Oct, Cervical disc disease M50.90 and Acute non-recurrent frontal sinusitis J01.10 [facility] [address] [facility] [id number] [address] [place] [address] Sep, Neck pain M54.2 [facility] [address] [facility] [id number] [address] [place] [address] Sep, [facility] [address] [facility] [id number] [address] [place] [address] Aug, Cervical disc disease M50.90 [facility] [address] [id number] [address] [place] [address] Jul, [facility] [address] [facility] [id number] [address] [place] [address] Jun, [facility] [address] [facility] [id number] [address] [place] [address] May, [facility] [address] [id number] [address] [place] [address] May, Screening for diabetes blanchei tus Z13.1 ; Chronic fatigue R53.82 and Edema, unspecified type R60.9 [facility] [address] [id number] [address] [place] [address] Apr, Neck pain M54.2 [facility] [address] [id number] [address] [place] [address] Mar, [facility] [address] [id number] [address] [place] [address] Mar, Neck pain M54.2 [facility] [address] [id number] [address] [place] [address] Feb, Cervical disc disease M50.90 [facility] [address] [id number] [address] [place] [address] Feb, Cervical disc disease M50.90 [facility] [address] [id number] [address] [place] [address] January, [facility] [address] [id number] [address] [place] [address] January, [facility] [address] [id number] [address] [place] [address] January, Cervical disc disease M50.90 [facility] [address] [id number] [address] [place] [address] January, [facility] [address] [id number] [address] [place] [address] January, [facility] [address] [id number] [address] [place] [address] Dec, Cervical disc disease M50.90 [facility] [address] [id number] [address] [place] [address] Nov, Cervical disc disease M50.90 [facility] [address] [id number] [address] [place] [address] Oct, Cervical disc disease M50.90 [facility] [address] [id number] [address] [place] [address] Sep, Cervical disc disease M50.90 [facility] [address] [id number] [address] [place] [id number] Aug, Dental caries K02.9 and Enco unter for dental examination Z01.20 [facility] [address] [id number] [address] [place] [address] Aug, [facility] [address] [id number] [address] [place] [id number] Aug, [facility] [address] [id number] [address] [place] [id number] Aug, Encounter for dental examina tion Z01.20 [facility] [address] [id number] [address] [place] [address] Jul, [facility] [address] [id number] [address] [place] [address] Jun, Sinusitis J32.9 and Cervical disc disease M50.90 [facility] [address] [id number] [address] [place] [address] Jun, [facility] [address] [id number] [address] [place] [address] 24 May, 2015 [facility] [address] [id number] [address] [place] [address] 23 May, 2015 [facility] [address] [id number] [address] [place] [phone] 22 May, 2015 [facility] [address] [id number] [address] [place] [address] May, [facility] [address] [id number] [address] [place] [address] Apr, Cervical spondylosis without myelopathy 721.0 [facility] [address] [id number] [address] [place] [address] Mar, [facility] [address] [id number] [address] [place] [phone] January, Cervical spondylosis without myelopathy 721.0 [facility] [address] [id number] [address] [place] [phone] Dec, [facility] [address] [id number] [address] [place] [address] Dec, [facility] [address] [id number] [address] [place] [address] Dec, [facility] [address] [id number] [address] [place] [address] Nov, [facility] [address] [id number] [address] [place] [phone] Nov, [facility] [address] [id number] [address] [place] [phone] Oct, [facility] [address] [id number] [address] [place] [address] Oct, [facility] [address] [id number] [address] [place] [phone] Oct, [facility] [address] [id number] [address] [place] [phone] Oct, [facility] [address] [id number] [address] [place] [phone] Oct, [facility] [address] [id number] [address] [place] [address] Oct, [facility] [address] [id number] [address] [place] [phone] Oct, [facility] [address] [id number] [address] [place] [phone] Oct, [facility] [address] [id number] [address] [place] [address], [place] [address] Oct, [facility] [address] [id number] [address] [place] [address], [place] [address] Oct, [facility] [address] [id number] [address] [place] [address], [place] [address] Sep, [facility] [address] [id number] [address] [place] [address], [place] [address] Sep, [facility] [address] [id number] [address] [place] [address], [place] [address] Sep, [facility] [address] [id number] [address] [place] [address], [place] [address] Sep, [facility] [address] [id number] [address] [place] [address], [place] [address] Sep, [facility] [address] [id number] [address] [place] [address], [place] [address] Sep, [facility] [address] [id number] [address] [place] [address], [place] [address] Sep, [facility] [address] [id number] [address] [place] [address], [place] [address] Sep, [facility] [address] [id number] [address] [place] [address], [place] [address] Sep, [facility] [address] [id number] [address] [place] [address], [place] [address] Aug, [facility] [address] [id number] [address] [place] [address], [place] [address] Aug, [facility] [address] [id number] [address] [place] [address], [place] [address] Aug, [facility] [address] [id number] [address] [place] [address], [place] [address] Aug, [facility] [address] [id number] [address] [place] [address], [place] [address] Jul, [facility] [address] [id number] [address] [place] [address], [place] [address] Jul, [facility] [address] [id number] [address] [place] [address], [place] [address] Jul, [facility] [address] [id number] [address] [place] [address], [place] [address] Jul, [facility] [address] [id number] [address] [place] [address], [place] [address] Jul, [facility] [address] [id number] [address] [place] [address], [place] [address] Jul, [facility] [address] [id number] [address] [place] [address], [place] [address] Jul, [facility] [address] [id number] [address] [place] [address], [place] [address] Jul, [facility] [address] [id number] [address] [place] [address], [place] [address] Jun, [facility] [address] [id number] [address] [place] [address], [place] [address] 27 Jun, 2014 [facility] [address] [id number] [address] [place] [address], [place] [address] Jun, [facility] [address] [id number] [address] [place] [address], [place] [address] 20 Jun, 2014 [facility] [address] [id number] [address] [place] [address], [place] [address] 16 Jun, 2014 [facility] [address] [id number] [address] [place] [address], [place] [address] 15 Jun, 2014 [facility] [address] [id number] [address] [place] [address], [place] [address] 15 Jun, 2014 [facility] [address] [id number] [address] [place] [address], [place] [address] 14 Jun, 2014 [facility] [address] [id number] [address] [place] [address] [place] [address] 14 Jun, 2014 [facility] [address] [id number] [address] [place] [address], [place] [address] Jun, [facility] [address] [id number] [address] [place] [address], [place] [address] Jun, [facility] [address] [id number] [address] [place] [address], [place] [address] May, [facility] [address] [id number] [address] [place] [address], [place] [address] May, [facility] [address] [id number] [address] [place] [address], [place] [address] May, [facility] [address] [id number] [address] [place] [address], [place] [address] May, [facility] [address] [id number] [address] [place] [address], [place] [address] May, [facility] [address] [id number] [address] [place] [address], [place] [address] Apr, [facility] [address] [id number] [address] [place] [address], [place] [address] Apr, [facility] [address] [id number] [address] [place] [address], [place] [address] Apr, [facility] [address] [id number] [address] [place] [address], [place] [address] Apr, [facility] [place] [facility] [address] [id number] [address] [place] [address], [place] [address] Apr, [facility] [place] [facility] [address] [id number] [address] [place] [address], [place] [address] Apr, [facility] [place] [facility] [address] [id number] [address] [place] [address], [place] [address] Mar, [facility] [place] [facility] [address] [id number] [address] [place] [address], [place] [address] Mar, [facility] [place] [facility] [address] [id number] [facility] [place] [address] 15 Mar, 2014 [facility] [place] [facility] [address] [id number] [address] [place] [address], [place] [address] Mar, [facility] [place] [facility] [address] [id number] [address] [place] [address], [place] [address] Mar, [facility] [place] [facility] [address] [id number] [address] [place] [address], [place] [address] Mar, [facility] [place] [facility] [address] [id number] [address] [place] [address], [place] [address] Feb, [facility] [place] [facility] [address] [id number] [address] [place] [address], [place] [address] Feb, [facility] [place] [facility] [address] [id number] [address] [place] [address], [place] [address] Feb, [facility] [place] [facility] [address] [id number] [address] [place] [address], [place] [address] Feb, [facility] [place] [facility] [address] [id number] [address] [place] [address], [place] [address] Feb, [facility] [place] [facility] [address] [id number] [address] [place] [address], [place] [address] Feb, [facility] [place] [facility] [address] [id number] [address] [place] [address], [place] [address] Feb, [facility] [place] [facility] [address] [id number] [address] [place] [address], [place] [address] Feb, [facility] [place] [facility] [address] [id number] [address] [place] [address], [place] [address] January, [facility] [place] [facility] [address] [id number] [address] [place] [address], [place] [address] January, [facility] [place] [facility] [address] [id number] [address] [place] [address], [place] [address] January, [facility] [place] [facility] [address] [id number] [address] [place] [address], [place] [address] January, [facility] [address] [id number] [facility] [place] [address] January, [facility] [address] [id number] [address] [place] [address], [place] [address] January, [facility] [address] [id number] [address] [place] [address], [place] [address] January, [facility] [address] [id number] [address] [place] [address], [place] [address] January, [facility] [address] [id number] [address] [place] [address], [place] [address] Dec, [facility] [address] [id number] [address] [place] [address], [place] [address] Dec, [facility] [address] [id number] [address] [place] [address], [place] [address] Dec, [facility] [address] [id number] [address] [place] [address], [place] [address] Dec, [facility] [address] [id number] [address] [place] [address], [place] [address] Dec, [facility] [address] [id number] [address] [place] [address], [place] [address] Dec, [facility] [address] [id number] [address] [place] [address], [place] [address] Nov, [facility] [address] [id number] [address] [place] [address], [place] [address] Nov, [facility] [place] [address] [id number] [address] [place] [address], [place] [address] Nov, [facility] [place] [facility] [address] [id number] [address] [place] [address], [place] [address] Nov, [facility] [place] [facility] [address] [id number] [address] [place] [address], [place] [address] Nov, [facility] [place] [facility] [address] [id number] [address] [place] [address] Nov, [facility] [address] [id number] [address] [place] [address] [address] Nov, [facility] [address] [id number] [address] [place] [address], [place] [address] Nov, [facility] [address] [id number] [address] [place] [address], [place] [address] Oct, [facility] [address] [id number] [address] [place] [address], [place] [address] Oct, [facility] [address] [id number] [address] [place] [address], [place] [address] Sep, [facility] [address] [id number] [address] [place] [address], [place] [address] Sep, [facility] [address] [id number] [address] [place] [address], [place] [address] Sep, [facility] [address] [id number] [address] [place] [address], [place] [address] Sep, [facility] [address] [id number] [address] [place] [address], [place] [address] Aug, [facility] [address] [id number] [address] [place] [address], [place] [address] Aug, [facility] [address] [id number] [address] [place] [address], [place] [address] Aug, [facility] [address] [id number] [address] [place] [address], [place] [address] Aug, [facility] [address] [id number] [address] [place] [address], [place] [address] Jul, [facility] [address] [id number] [address] [place] [address], [place] [address] Jul, [facility] [address] [id number] [address] [place] [address], [place] [address] Jul, [facility] [address] [id number] [address] [place] [address], [place] [address] Jul, [facility] [address] [id number] [address] [place] [address], [place] [address] Jul, [facility] [address] [id number] [address] [place] [address], [place] [address] Jul, [facility] [address] [id number] [address] [place] [address], [place] [address] Jul, [facility] [address] [id number] [address] [place] [address], [place] [address] Jul, [facility] [address] [id number] [address] [place] [address], [place] [address] Jul, [facility] [address] [id number] [address] [place] [address], [place] [address] Jul, [facility] [address] [id number] [address] [place] [address] Jul, [facility] [address] [id number] [address] [place] [address], [place] [address] Jul, [facility] [address] [id number] [address] [place] [address] Jun, [facility] [address] [id number] [address] [place] [address] Jun, [facility] [address] [id number] [address] [place] [id number] Jun, [facility] [address] [id number] [address] [place] [id number] Jun, [facility] [address] [id number] [address] [place] [id number] 16 Jun, 2013 [facility] [address] [id number] [address] [place] [id number] 14 Jun, 2013 [facility] [address] [id number] [address] [place] [id number] Jun, [facility] [address] [id number] [address] [place] [address], [place] [address] Jun, [facility] [address] [id number] [address] [place] [address], [place] [address] May, [facility] [address] [id number] [address] [place] [address], [place] [address] May, [facility] [address] [id number] [address] [place] [address], [place] [address] May, [facility] [address] [id number] [address] [place] [address], [place] [address] Apr, [facility] [address] [id number] [address] [place] [address], [place] [address] Apr, [facility] [address] [id number] [address] [place] [address], [place] [address] Mar, [facility] [address] [id number] [address] [place] [address], [place] [address] Mar, [facility] [address] [id number] [address] [place] [address], [place] [address] Feb, [facility] [address] [id number] [address] [place] [address], [place] [address] January, [facility] [address] [id number] [address] [place] [address], [place] [address] January, [facility] [address] [id number] [address] [place] [address], [place] [address] January, [facility] [address] [id number] [address] [place] [address], [place] [address] January, [facility] [address] [id number] [address] [place] [address], [place] [address] January, [facility] [address] [id number] [address] [place] [address], [place] [address] Dec, [facility] [address] [id number] [address] [place] [address], [place] [address] 17 Dec, 2012 [facility] [address] [id number] [address] [place] [address], [place] [address] 02 Dec, 2012 [facility] [address] [id number] [address] [place] [address], [place] [address] Nov, [facility] [address] [id number] [address] [place] [address], [place] [address] 27 Oct, 2012 [facility] [address] [id number] [address] [place] [address], [place] [address] 18 Oct, 2012 [facility] [address] [id number] [address] [place] [address], [place] [address] 15 Oct, 2012 [facility] [address] [id number] [address] [place] [address], [place] [address] 18 Sep, 2012 [facility] [address] [id number] [address] [place] [address], [place] [address] 16 Sep, 2012 [facility] [address] [id number] [address] [place] [address], [place] [address] 14 Aug, 2012 [facility] [address] [id number] [address] [place] [address], [place] [address] 14 Aug, 2012 [facility] [address] [id number] [address] [place] [address], [place] [address] 11 Aug, 2012 [facility] [address] [id number] [address] [place] [address], [place] [address] Aug, [facility] [address] [id number] [address] [place] [address], [place] [address] Jul, [facility] [address] [id number] [address] [place] [address], [place] [address] Jul, [facility] [address] [id number] [address] [place] [address], [place] [address] Jul, [facility] [address] [id number] [address] [place] [address], [place] [address] Jul, [facility] [address] [id number] [address] [place] [address], [place] [address] Jul, [facility] [address] [id number] [address] [place] [address], [place] [address] 15 Jun, 2012 [facility] [address] [id number] [address] [place] [address], [place] [address] 15 Jun, 2012 [facility] [address] [id number] [address] [place] [address], [place] [address] Jun, [facility] [address] [id number] [address] [place] [address], [place] [address] Jun, [facility] [address] [id number] [address] [place] [address], [place] [address] May, [facility] [address] [id number] [address] [place] [address], [place] [address] Apr, [facility] [address] [id number] [address] [place] [address], [place] [address] Apr, [facility] [address] [id number] [address] [place] [address], [place] [address] Apr, [facility] [address] [id number] [address] [place] [address], [place] [address] Apr, [facility] [address] [id number] [address] [place] [address], [place] [address] January, [facility] [address] [id number] [address] [place] [address], [place] [address] January, [facility] [address] [id number] [address] [place] [address], [place] [address] Dec, [facility] [address] [id number] [address] [place] [address], [place] [address] Dec, [facility] [address] [id number] [address] [place] [address], [place] [address] Nov, [facility] [address] [id number] [address] [place] [address], [place] [address] Nov, [facility] [address] [id number] [address] [place] [address], [place] [address] Nov, [facility] [address] [id number] [address] [place] [address], [place] [address] Nov, [facility] [address] [id number] [address] [place] [address], [place] [address] Oct, [facility] [address] [id number] [address] [place] [address], [place] [address] Oct, [facility] [address] [id number] [address] [place] [address], [place] [address] Oct, [facility] [address] [id number] [address] [place] [address], [place] [address] Sep, [facility] [address] [id number] [address] [place] [address], [place] [address] Sep, [facility] [address] [id number] [address] [place] [address], [place] [address] Aug, [facility] [address] [id number] [address] [place] [address], [place] [address] Aug, [facility] [address] [id number] [address] [place] [address], [place] [address] Jul, [facility] [address] [id number] [address] [place] [address], [place] [address] Jul, [facility] [address] [id number] [address] [place] [address], [place] [address] Jul, [facility] [address] [id number] [address] [place] [address], [place] [address] Jun, [facility] [address] [id number] [address] [place] [address], [place] [address] Jun, [facility] [address] [id number] [address] [place] [address], [place] [address] Jun, [facility] [address] [id number] [address] [place] [address], [place] [address] Jun, [facility] [address] [id number] [address] [place] [address], [place] [address] Jun, [facility] [address] [id number] [address] [place] [address], [place] [address] Jun, [facility] [address] [id number] [address] [place] [address], [place] [address] Aug, [facility] [address] [id number] [address] [place] [address], [place] [address] Aug, [facility] [address] [id number] [address] [place] [address], [place] [address] Aug, [facility] [address] [id number] [address] [place] [address], [place] [address] Jul, [facility] [address] [id number] [address] [place] [address], [place] [address] Jul, [facility] [address] [id number] [address] [place] [address], [place] [address] Jul, [facility] [address] [id number] [address] [place] [address], [place] [address] Jul, [facility] [address] [id number] [address] [place] [address], [place] [address] Jul, [facility] [address] [id number] [address] [place] [address], [place] [address] Jul, [facility] [address] [id number] [address] [place] [address], [place] [address] Jun, [facility] [address] [id number] [address] [place] [address], [place] [address] Apr, [facility] [address] [id number] [address] [place] [address], [place] [address] Feb, [facility] [address] [id number] [address] [place] [id number] 10 Oct, 2009 [facility] [address] [facility] [id number] [address] [place] [address] Sep, [facility] [address] [facility] [id number] [address] [place] [address] Aug, [facility] [address] [facility] [id number] [address] [place] [address] Aug, [facility] [address] [facility] [id number] [address] [place] [id number] Aug, [facility] [address] [facility] [id number] [address] [place] [address] Jul, [facility] [address] [facility] [id number] [address] [place] [id number] Jun, IMMUNIZATIONS No Known Immunizations SOCIAL HISTORY [...]
--- OUTSIDE RECORDS SUMMARY | 2020-02-22 17:21 | XMS REPORT ---
Author Author Marion Alexander Doctor Organization [facility] Address Unknown Phone Unavailable Care Team Providers Care Hood Maker Name Role Phone Migration, Doctor Unavailable Unavailable PROBLEMS Type Condition ICD9-CM Code FRC83-CA Code Onset Dates Condition S tatus SNOMED Code Problem Migraine without aura and without status migrain osus, not intractable G43.009 Active 640549395 Problem Acquired hypothyroidism E03.9 Active 538331639 Problem Cervical disc disease M50.90 Active 627798507 Problem Dyspepsia R10.13 Active [id number] ALLERGIES No Information ENCOUNTERS Encounter Location Date Diagnosis [facility] [address] [facility] [id number] [address] [place] [id number] Apr, [facility] [address] [facility] [id number] [address] [place] [phone] Apr, [facility] [address] [facility] [id number] [address] [place] [address] Apr, Cervical disc disease M50.90 [facility] [address] [facility] [id number] [address] [place] [address] Mar, [facility] [address] [facility] [id number] [address] [place] [address] Mar, Cervical disc disease M50.90 [facility] [address] [facility] [id number] [address] [place] [id number] Feb, [facility] [address] [place] [address] Feb, Cervical disc disease M50.90 [facility] [address] [place] [address] January, [facility] [address] [facility] [id number] [address] [place] [address] January, Cervical disc disease M50.90 [facility] [address] [facility] [id number] [address] [place] [address] January, Cervical disc disease M50.90 [facility] [address] [facility] [id number] [address] [place] [address] Dec, Cervical disc disease M50.90 [facility] [address] [facility] [id number] [address] [place] [address] Dec, Cervical disc disease M50.90 [facility] [address] [facility] [id number] [address] [place] [address] Dec, Cervical disc disease M50.90 [facility] [address] [facility] [id number] [address] [place] [address] Dec, Cervical disc disease M50.90 ; Acquired hypothyroidism E03.9 and Migraine without aura and without status migrainosus, not intractable G43.009 [facility] [address] [place] [id number] [address] [place] [address] Nov, [facility] [address] [facility] [id number] [address] [place] [address] Nov, Cervical disc disease M50.90 [facility] [address] [facility] [id number] [address] [place] [address] Oct, Cervical disc disease M50.90 [facility] [address] [facility] [id number] [address] [place] [address] Sep, [facility] [address] [facility] [id number] [address] [place] [address] Sep, Cervical disc disease M50.90 [facility] [address] [facility] [id number] [address] [place] [address] Aug, Cervical disc disease M50.90 [facility] [address] [facility] [id number] [address] [place] [address] Jul, Cervical disc disease M50.90 [facility] [address] [facility] [id number] [address] [place] [address] Jun, Acute recurrent pansinusitis J01.41 and Cervical disc disease M50.90 [facility] [address] [id number] [address] [place] [address] Jun, Cervical disc disease M50.90 [facility] [address] [id number] [address] [place] [address] May, Cervical disc disease M50.90 [facility] [address] [id number] [address] [place] [address] Apr, Cervical disc disease M50.90 [facility] [address] [id number] [address] [place] [id number] Mar, Cervical disc disease M50.90 [facility] [address] [id number] [address] [place] [address] Mar, [facility] [address] [id number] [address] [place] [address] Mar, Cervical disc disease M50.90 [facility] [address] [id number] [address] [place] [address] Feb, Cervical disc disease M50.90 [facility] [address] [id number] [address] [place] [address] January, Cervical disc disease M50.90 [facility] [address] [id number] [address] [place] [address] Dec, [facility] [address] [id number] [address] [place] [address] Dec, Cervical disc disease M50.90 [facility] [address] [id number] [address] [place] [address] Nov, Cervical disc disease M50.90 [facility] [address] [id number] [address] [place] [id number] 13 Nov, 2017 Cervical disc disease M50.90 [facility] [address] [id number] [address] [place] [address] Oct, Cervical disc disease M50.90 [facility] [address] [facility] [id number] [address] [place] [address] Oct, Cervical disc disease M50.90 and Acute non-recurrent maxillary sinusitis J01.00 [facility] [address] [facility] [id number] [address] [place] [address] Sep, Cervical disc disease M50.90 [facility] [address] [place] [id number] [address] [place] [address] Sep, [facility] [address] [place] [id number] [place] [address] Sep, Fatigue, unspecified type R5 3.83 and Cough R05 [place] [address] [place] [id number] [address] [place] [address] Aug, Cervical disc disease M50.90 [facility] [address] [address] Aug, Sore throat J02.9 ; Canker s ore K12.0 and History of anemia Z86.2 [place] [address] [address] Jul, Cervical disc disease M50.90 [place] [address] [place] [id number] [address] [place] [address] Jun, Cervical disc disease M50.90 [facility] [address] [place] [id number] [address] [place] [address] Jun, Cervical disc disease M50.90 [place] [address] [place] [id number] [address] [place] [address] May, Cervical disc disease M50.90 [facility] [address] [place] [id number] [address] [place] [address] Apr, Cervical disc disease M50.90 [facility] [address] [place] [id number] [address] [place] [id number] Apr, [facility] [address] [facility] [id number] [address] [place] [address] Feb, Cervical disc disease M50.90 [facility] [address] [facility] [id number] [address] [place] [address] January, Cervical disc disease M50.90 [facility] [address] [facility] [id number] [address] [place] [address] Nov, [facility] [address] [facility] [id number] [address] [place] [address] Nov, Cervical disc disease M50.90 [facility] [address] [facility] [id number] [address] [place] [phone] Nov, Acute cystitis with hematuri a N30.01 and Dysuria R30.0 [facility] [address] [facility] [id number] [address] [place] [address] Oct, Cervical disc disease M50.90 and Acute non-recurrent frontal sinusitis J01.10 [facility] [address] [facility] [id number] [address] [place] [address] Sep, Neck pain M54.2 [facility] [address] [facility] [id number] [address] [place] [address] Sep, [facility] [address] [facility] [id number] [address] [place] [address] Aug, Cervical disc disease M50.90 [facility] [address] [id number] [address] [place] [phone] Jul, [facility] [address] [facility] [id number] [address] [place] [address] Jun, [facility] [address] [facility] [id number] [address] [place] [id number] May, [facility] [address] [facility] [id number] [address] [place] [address] May, Screening for diabetes melli tus Z13.1 ; Chronic fatigue R53.82 and Edema, unspecified type R60.9 [facility] [address] [id number] [address] [place] [id number] Apr, Neck pain M54.2 [facility] [address] [id number] [address] [place] [phone] Mar, [facility] [address] [id number] [address] [place] [address] Mar, Neck pain M54.2 [facility] [address] [id number] [address] [place] [address] Feb, Cervical disc disease M50.90 [facility] [address] [id number] [address] [place] [address] Feb, Cervical disc disease M50.90 [facility] [address] [id number] [address] [place] [id number] January, [facility] [address] [id number] [address] [place] [phone] January, [facility] [address] [id number] [address] [place] [address] January, Cervical disc disease M50.90 [facility] [address] [id number] [address] [place] [address] January, [facility] [address] [id number] [address] [place] [id number] January, [facility] [address] [id number] [address] [place] [address] Dec, Cervical disc disease M50.90 [facility] [address] [id number] [address] [place] [id number] Nov, Cervical disc disease M50.90 [facility] [address] [id number] [address] [place] [id number] Oct, Cervical disc disease M50.90 [facility] [address] [id number] [address] [place] [id number] Sep, Cervical disc disease M50.90 [facility] [address] [id number] [address] [place] [id number] Aug, Dental caries K02.9 and Enco unter for dental examination Z01.20 [facility] [address] [id number] [address] [place] [id number] Aug, [facility] [address] [id number] [address] [place] [id number] Aug, [facility] [address] [id number] [address] [place] [id number] Aug, Encounter for dental examina tion Z01.20 [facility] [address] [id number] [address] [place] [id number] Jul, [facility] [address] [id number] [address] [place] [id number] Jun, Sinusitis J32.9 and Cervical disc disease M50.90 [facility] [address] [id number] [address] [place] [phone] Jun, [facility] [address] [id number] [address] [place] [id number] 24 May, 2015 [facility] [address] [id number] [address] [place] [id number] May, [facility] [address] [id number] [address] [place] [phone] May, [facility] [address] [id number] [address] [place] [id number] May, [facility] [address] [id number] [address] [place] [id number] Apr, Cervical spondylosis without myelopathy 721.0 [facility] [address] [id number] [address] [place] [phone] Mar, [facility] [address] [id number] [address] [place] [id number] January, Cervical spondylosis without myelopathy 721.0 [facility] [address] [id number] [address] [place] [id number] Dec, [facility] [address] [id number] [address] [place] [phone] Dec, [facility] [address] [id number] [address] [place] [id number] Dec, [facility] [address] [id number] [address] [place] [id number] Nov, [facility] [address] [id number] [address] [place] [phone] Nov, [facility] [address] [id number] [address] [place] [phone] Oct, [facility] [address] [id number] [address] [place] [id number] Oct, [facility] [address] [id number] [address] [place] [id number] Oct, [facility] [address] [id number] [address] [place] [phone] Oct, [facility] [address] [id number] [address] [place] [id number] Oct, 2014 [facility] [address] [id number] [address] [place] [phone] Oct, 2014 [facility] [address] [id number] [address] [place] [id number] Oct, [facility] [address] [id number] [address] [place] [phone] Oct, 2014 [facility] [address] [id number] [address] [place] [id number] Oct, [facility] [address] [id number] [address] [place] [address], [place] [address] Oct, [facility] [address] [id number] [address] [place] [address], [place] [address] Sep, [facility] [address] [id number] [address] [place] [address], [place] [address] Sep, [facility] [address] [id number] [address] [place] [address], [place] [address] Sep, [facility] [address] [id number] [address] [place] [address], [place] [address] Sep, [facility] [address] [id number] [address] [place] [address], [place] [address] Sep, [facility] [address] [id number] [address] [place] [address], [place] [address] Sep, [facility] [address] [id number] [address] [place] [address], [place] [address] Sep, [facility] [address] [id number] [address] [place] [address], [place] [address] Sep, [facility] [address] [id number] [address] [place] [address], [place] [address] Sep, [facility] [address] [id number] [address] [place] [address], [place] [address] Aug, [facility] [address] [id number] [address] [place] [address] Aug, [facility] [address] [id number] [address] [place] [address], [place] [address] Aug, [facility] [address] [id number] [address] [place] [address], [place] [address] Aug, [facility] [address] [id number] [address] [place] [address], [place] [address] Jul, [facility] [address] [id number] [address] [place] [address] Jul, [facility] [address] [id number] [address] [place] [address], [place] [address] Jul, [facility] [address] [id number] [address] [place] [address], [place] [address] Jul, [facility] [address] [id number] [address] [place] [address], [place] [address] Jul, [facility] [address] [id number] [address] [place] [address], [place] [address] Jul, [facility] [address] [id number] [address] [place] [address], [place] [address] Jul, [facility] [address] [id number] [address] [place] [address], [place] [address] Jul, [facility] [address] [id number] [address] [place] [address], [place] [address] Jun, [facility] [address] [id number] [address] [place] [address], [place] [address] 27 Jun, 2014 [facility] [address] [id number] [address] [place] [address], [place] [address] 20 Jun, 2014 [facility] [address] [id number] [address] [place] [address], [place] [address] 20 Jun, 2014 [facility] [address] [id number] [address] [place] [address], [place] [address] 16 Jun, 2014 [facility] [address] [id number] [address] [place] [id number] 15 Jun, 2014 [facility] [address] [id number] [address] [place] [address], [place] [address] 15 Jun, 2014 [facility] [address] [id number] [address] [place] [address], [place] [address] 14 Jun, 2014 [facility] [address] [id number] [address] [place] [address], [place] [address] 14 Jun, 2014 [facility] [address] [id number] [facility] [address] Jun, [facility] [address] [id number] [address] [place] [address], [place] [address] Jun, [facility] [address] [id number] [facility] [address] May, [facility] [address] [id number] [address] [place] [address], [place] [address] May, [facility] [address] [id number] [address] [place] [address], [place] [address] May, [facility] [address] [id number] [address] [place] [address], [place] [address] May, [facility] [address] [id number] [address] [place] [address], [place] [address] May, [facility] [address] [id number] [address] [place] [address], [place] [address] Apr, [facility] [address] [id number] [address] [place] [address], [place] [address] Apr, [facility] [address] [id number] [address] [place] [address], [place] [address] Apr, [facility] [address] [id number] [address] [place] [address], [place] [address] Apr, [facility] [address] [id number] [address] [place] [address], [place] [address] Apr, [facility] [address] [id number] [address] [place] [address], [place] [address] Apr, [facility] [address] [id number] [address] [place] [address], [place] [address] Mar, [facility] [address] [id number] [address] [place] [address], [place] [address] Mar, [facility] [address] [id number] [address] [place] [address], [place] [address] Mar, [facility] [address] [id number] [facility] [address] Mar, [facility] [address] [id number] [facility] [address] Mar, [facility] [address] [id number] [facility] [address] Mar, [facility] [address] [id number] [address] [place] [address], [place] [address] Feb, [facility] [place] [address] [id number] [address] [place] [address], [place] [address] Feb, [facility] [place] [address] [id number] [address] [place] [address], [place] [address] Feb, [facility] [place] [address] [id number] [address] [place] [address], [place] [address] Feb, [facility] [place] [address] [id number] [address] [place] [address], [place] [address] Feb, [facility] [place] [address] [id number] [address] [place] [address], [place] [address] Feb, [facility] [place] [address] [id number] [address] [place] [address], [place] [address] Feb, [facility] [place] [address] [id number] [address] [place] [address], [place] [address] Feb, [facility] [place] [facility] [address] [id number] [address] [place] [address], [place] [address] January, [facility] [place] [address] [id number] [address] [place] [address], [place] [address] January, [facility] [place] [address] [id number] [address] [place] [address], [place] [address] January, [facility] [place] [address] [id number] [address] [place] [address], [place] [address] January, [facility] [address] [id number] [address] [place] [address], [place] [address] January, [facility] [address] [id number] [address] [place] [address], [place] [address] January, [facility] [address] [id number] [address] [place] [address], [place] [address] January, [facility] [address] [id number] [address] [place] [address], [place] [address] January, [facility] [address] [id number] [address] [place] [address], [place] [address] Dec, [facility] [address] [id number] [address] [place] [address], [place] [address] Dec, [facility] [address] [id number] [address] [place] [address], [place] [address] Dec, [facility] [address] [id number] [address] [place] [address], [place] [address] Dec, [facility] [address] [id number] [address] [place] [address], [place] [address] Dec, [facility] [address] [id number] [address] [place] [address], [place] [address] Dec, [facility] [address] [id number] [address] [place] [address], [place] [address] Nov, [facility] [address] [id number] [address] [place] [address], [place] [address] Nov, [facility] [address] [id number] [address] [place] [address], [place] [address] Nov, [facility] [address] [id number] [address] [place] [address], [place] [address] Nov, [facility] [address] [id number] [address] [place] [address], [place] [address] Nov, [facility] [address] [id number] [address] [place] [address], [place] [address] Nov, [facility] [address] [id number] [address] [place] [address], [place] [address] Nov, [facility] [address] [id number] [address] [place] [address], [place] [address] Nov, [facility] [address] [id number] [address] [place] [address], [place] [address] Oct, [facility] [address] [id number] [address] [place] [address], [place] [address] Oct, [facility] [address] [id number] [address] [place] [address], [place] [address] Sep, [facility] [address] [id number] [address] [place] [address], [place] [address] Sep, [facility] [address] [id number] [address] [place] [address], [place] [address] Sep, [facility] [address] [id number] [address] [place] [address], [place] [address] Sep, [facility] [address] [id number] [address] [place] [address], [place] [address] Aug, [facility] [address] [id number] [address] [place] [address], [place] [address] Aug, [facility] [address] [id number] [address] [place] [address], [place] [address] Aug, [facility] [address] [id number] [address] [place] [address], [place] [address] Aug, [facility] [address] [id number] [address] [place] [address], [place] [address] Jul, [facility] [address] [id number] [address] [place] [address], [place] [address] Jul, [facility] [address] [id number] [address] [place] [address], [place] [address] Jul, [facility] [address] [id number] [address] [place] [address] Jul, [facility] [address] [id number] [address] [place] [address], [place] [address] Jul, [facility] [address] [id number] [address] [place] [id number] Jul, [facility] [address] [id number] [address] [place] [address], [place] [address] Jul, [facility] [address] [id number] [address] [place] [id number] Jul, [facility] [address] [id number] [address] [place] [address], [place] [address] Jul, [facility] [address] [id number] [address] [place] [address] Jul, [facility] [address] [id number] [address] [place] [id number] Jul, [facility] [address] [id number] [address] [place] [address], [place] [address] Jul, [facility] [address] [id number] [address] [place] [address] Jun, [facility] [address] [id number] [address] [place] [address], [place] [address] Jun, [facility] [address] [id number] [address] [place] [address] Jun, [facility] [address] [id number] [address] [place] [address] Jun, [facility] [address] [id number] [address] [place] [id number] 16 Jun, 2013 [facility] [address] [id number] [address] [place] [id number] 14 Jun, 2013 [facility] [address] [id number] [address] [place] [id number] 14 Jun, 2013 [facility] [address] [id number] [address] [place] [address], [place] [address] Jun, [facility] [address] [id number] [address] [place] [address], [place] [address] 15 May, 2013 [facility] [address] [id number] [address] [place] [address], [place] [address] May, [facility] [address] [id number] [address] [place] [address], [place] [address] May, [facility] [address] [id number] [address] [place] [address], [place] [address] Apr, [facility] [address] [id number] [address] [place] [address], [place] [address] Apr, [facility] [address] [id number] [address] [place] [address], [place] [address] Mar, [facility] [address] [id number] [address] [place] [address], [place] [address] Mar, [facility] [address] [id number] [address] [place] [address], [place] [address] Feb, [facility] [address] [id number] [address] [place] [address], [place] [address] January, [facility] [address] [id number] [address] [place] [address], [place] [address] January, [facility] [address] [id number] [address] [place] [address], [place] [address] January, [facility] [address] [id number] [address] [place] [address], [place] [address] January, [facility] [address] [id number] [address] [place] [address], [place] [address] January, [facility] [address] [id number] [address] [place] [address], [place] [address] Dec, [facility] [address] [id number] [address] [place] [address], [place] [address] Dec, [facility] [address] [id number] [address] [place] [address], [place] [address] 02 Dec, 2012 [facility] [address] [id number] [address] [place] [address], [place] [address] Nov, [facility] [address] [id number] [address] [place] [address], [place] [address] 27 Oct, 2012 [facility] [address] [id number] [address] [place] [address], [place] [address] 18 Oct, 2012 [facility] [address] [id number] [address] [place] [address], [place] [address] 15 Oct, 2012 [facility] [address] [id number] [address] [place] [address], [place] [address] Sep, [facility] [address] [id number] [address] [place] [address], [place] [address] 16 Sep, 2012 [facility] [address] [id number] [address] [place] [address], [place] [address] 14 Aug, 2012 [facility] [address] [id number] [address] [place] [address], [place] [address] 14 Aug, 2012 [facility] [address] [id number] [address] [place] [address], [place] [address] Aug, [facility] [address] [id number] [address] [place] [address], [place] [address] Aug, [facility] [address] [id number] [address] [place] [address], [place] [address] Jul, [facility] [address] [id number] [address] [place] [address], [place] [address] Jul, [facility] [address] [id number] [address] [place] [address], [place] [address] Jul, [facility] [address] [id number] [address] [place] [address], [place] [address] Jul, [facility] [address] [id number] [address] [place] [address], [place] [address] 09 Jul, 2012 [facility] [address] [id number] [address] [place] [address], [place] [address] 15 Jun, 2012 [facility] [address] [id number] [address] [place] [address], [place] [address] 15 Jun, 2012 [facility] [address] [id number] [address] [place] [address], [place] [address] 10 Jun, 2012 [facility] [address] [id number] [address] [place] [address], [place] [address] 10 Jun, 2012 [facility] [address] [id number] [address] [place] [address], [place] [address] May, [facility] [address] [id number] [address] [place] [address], [place] [address] Apr, [facility] [address] [id number] [address] [place] [address], [place] [address] Apr, [facility] [address] [id number] [address] [place] [address], [place] [address] Apr, [facility] [address] [id number] [address] [place] [address], [place] [address] Apr, [facility] [address] [id number] [address] [place] [address], [place] [address] January, [facility] [address] [id number] [address] [place] [address], [place] [address] January, [facility] [address] [id number] [address] [place] [address], [place] [address] Dec, [facility] [address] [id number] [address] [place] [address], [place] [address] Dec, [facility] [address] [id number] [address] [place] [address], [place] [address] Nov, [facility] [address] [id number] [address] [place] [address], [place] [address] Nov, [facility] [address] [id number] [address] [place] [address], [place] [address] Nov, [facility] [address] [id number] [address] [place] [address], [place] [address] Nov, [facility] [address] [id number] [address] [place] [address], [place] [address] Oct, [facility] [address] [id number] [address] [place] [address], [place] [address] Oct, [facility] [address] [id number] [address] [place] [address], [place] [address] Oct, [facility] [address] [id number] [address] [place] [address], [place] [address] Sep, [facility] [address] [id number] [address] [place] [address], [place] [address] Sep, [facility] [address] [id number] [address] [place] [address], [place] [address] Aug, [facility] [address] [id number] [address] [place] [address], [place] [address] Aug, [facility] [address] [id number] [address] [place] [address] Jul, [facility] [address] [id number] [address] [place] [address] Jul, [facility] [address] [id number] [address] [place] [address] Jul, [facility] [address] [id number] [address] [place] [address], [place] [address] Jun, [facility] [address] [id number] [address] [place] [address], [place] [address] Jun, [facility] [address] [id number] [address] [place] [address] Jun, [facility] [address] [id number] [address] [place] [address] 10 Jun, 2011 [facility] [address] [id number] [address] [place] [address], [place] [address] 10 Jun, 2011 [facility] [address] [id number] [address] [place] [address], [place] [address] Jun, [facility] [address] [id number] [address] [place] [address], [place] [address] 29 Aug, 2010 [facility] [address] [id number] [address] [place] [address], [place] [address] Aug, [facility] [address] [id number] [address] [place] [address], [place] [address] Aug, [facility] [address] [id number] [address] [place] [address], [place] [address] 29 Jul, 2010 [facility] [address] [id number] [address] [place] [address], [place] [address] Jul, [facility] [address] [id number] [address] [place] [address], [place] [address] Jul, [facility] [address] [id number] [address] [place] [address], [place] [address] Jul, [facility] [address] [id number] [address] [place] [address], [place] [address] 15 Jul, 2010 [facility] [address] [id number] [address] [place] [address] Jul, [facility] [address] [id number] [address] [place] [address], [place] [address] Jun, [facility] [address] [id number] [address] [place] [address], [place] [address] Apr, [facility] [address] [id number] [address] [place] [address], [place] [address] Feb, [facility] [address] [id number] [address] [place] [address], [place] [address] 10 Oct, 2009 [facility] [address] [facility] [id number] [address] [place] [id number] Sep, [facility] [address] [facility] [id number] [address] [place] [address] Aug, [facility] [address] [facility] [id number] [address] [place] [address] Aug, [facility] [address] [facility] [id number] [address] [place] [address] Aug, [facility] [address] [facility] [id number] [address] [place] [address] Jul, [facility] [address] [facility] [id number] [address] [place] [id number] Jun, IMMUNIZATIONS No Known Immunizations SOCIAL HISTORY [...]
--- OUTSIDE RECORDS SUMMARY | 2020-02-22 17:21 | XMS REPORT ---
Author Author Marion TRUJILLO Organization [facility] Address [address] [place] [address] Care Team Providers Care [employer] Supervisor Name Role Phone ZACKARY TRUJILLO Unavailable PROBLEMS Type Condition ICD9-CM Code HPP26-AV Code Onset Dates Condition S tatus SNOMED Code Problem Migraine without aura and without status migrain osus, not intractable G43.009 Active 485216204 Problem Acquired hypothyroidism E03.9 Active 778518948 Problem Cervical disc disease M50.90 Active 382780597 Problem Dyspepsia R10.13 Active [id number] ALLERGIES No Information ENCOUNTERS Encounter Location Date Diagnosis [facility] [address] [facility] [id number] [address] [place] [phone] Apr, [facility] [address] [id number] [address] [place] [phone] Apr, [facility] [address] [facility] [id number] [address] [place] [phone] Apr, Cervical disc disease M50.90 [facility] [address] [facility] [id number] [address] [place] [phone] Mar, [facility] [address] [facility] [id number] [address] [place] [phone] Mar, Cervical disc disease M50.90 [facility] [address] [facility] [id number] [address] [place] [phone] Feb, [address] [address] Feb, Cervical disc disease M50.[address] [address] January, [facility] [address] [facility] [id number] [address] [place] [phone] January, Cervical disc disease M50.90 [facility] [address] [id number] [address] [place] [phone] January, Cervical disc disease M50.90 [facility] [address] [id number] [address] [place] [phone] Dec, Cervical disc disease M50.90 [facility] [address] [id number] [address] [place] [phone] Dec, Cervical disc disease M50.90 [facility] [address] [id number] [address] [place] [phone] Dec, Cervical disc disease M50.90 [facility] [address] [facility] [id number] [address] [place] [phone] Dec, Cervical disc disease M50.90 ; Acquired hypothyroidism E03.9 and Migraine without aura and without status migrainosus, not intractable G43.009 [facility] [address] [id number] [address] [place] [phone] Nov, [facility] [address] [facility] [id number] [address] [place] [phone] Nov, Cervical disc disease M50.90 [facility] [address] [facility] [id number] [address] [place] [phone] Oct, Cervical disc disease M50.90 [facility] [address] [id number] [address] [place] [phone] Sep, [facility] [address] [facility] [id number] [address] [place] [id number] Sep, Cervical disc disease M50.90 [facility] [address] [facility] [id number] [address] [place] [id number] Aug, Cervical disc disease M50.90 [facility] [address] [facility] [id number] [address] [place] [phone] Jul, Cervical disc disease M50.90 [facility] [address] [id number] [address] [place] [phone] Jun, Acute recurrent pansinusitis J01.41 and Cervical disc disease M50.90 [facility] [address] [id number] [address] [place] [phone] Jun, Cervical disc disease M50.90 [facility] [address] [id number] [address] [place] [phone] May, Cervical disc disease M50.90 [facility] [address] [id number] [address] [place] [phone] Apr, Cervical disc disease M50.90 [facility] [address] [id number] [address] [place] [phone] Mar, Cervical disc disease M50.90 [facility] [address] [id number] [address] [place] [phone] Mar, [facility] [address] [id number] [address] [place] [id number] Mar, Cervical disc disease M50.90 [facility] [address] [id number] [address] [place] [id number] Feb, Cervical disc disease M50.90 [facility] [address] [id number] [address] [place] [phone] January, Cervical disc disease M50.90 [facility] [address] [id number] [address] [place] [phone] Dec, [facility] [address] [id number] [address] [place] [phone] Dec, Cervical disc disease M50.90 [facility] [address] [id number] [address] [place] [phone] Nov, Cervical disc disease M50.90 [facility] [address] [id number] [address] [place] [phone] Nov, Cervical disc disease M50.90 [facility] [address] [facility] [id number] [address] [place] [phone] 15 Oct, 2017 Cervical disc disease M50.90 [facility] [address] [facility] [id number] [address] [place] [phone] 12 Oct, 2017 Cervical disc disease M50.90 and Acute non-recurrent maxillary sinusitis J01.00 [facility] [address] [place] [id number] [address] [place] [phone] Sep, Cervical disc disease M50.90 [facility] [address] [facility] [id number] [address] [place] [phone] Sep, [facility] [address] [place] [id number] [place] [phone] Sep, Fatigue, unspecified type R5 3.83 and Cough R05 [place] [address] [place] [id number] [address] [place] [phone] Aug, Cervical disc disease M50.90 [facility] [address] [place] [id number] [address] [place] [phone] Aug, Sore throat J02.9 ; Canker s ore K12.0 and History of anemia Z86.2 [facility] [address] [facility] [id number] [address] [place] [phone] Jul, Cervical disc disease M50.90 [facility] [address] [place] [id number] [address] [place] [phone] Jun, Cervical disc disease M50.90 [place] [id number] [place] [id number] [address] [place] [phone] Jun, Cervical disc disease M50.90 [place] [address] [place] [id number] [address] [place] [phone] May, Cervical disc disease M50.90 [facility] [address] [place] [id number] [address] [place] [phone] Apr, Cervical disc disease M50.90 [facility] [address] [id number] [address] [place] [phone] Apr, [facility] [address] [facility] [id number] [address] [place] [phone] Feb, Cervical disc disease M50.90 [facility] [address] [facility] [id number] [address] [place] [phone] January, Cervical disc disease M50.90 [facility] [address] [id number] [address] [place] [phone] Nov, [facility] [address] [id number] [address] [place] [phone] Nov, Cervical disc disease M50.90 [facility] [address] [facility] [id number] [address] [place] [phone] Nov, Acute cystitis with hematuri a N30.01 and Dysuria R30.0 [facility] [address] [facility] [id number] [address] [place] [phone] Oct, Cervical disc disease M50.90 and Acute non-recurrent frontal sinusitis J01.10 [facility] [address] [facility] [id number] [address] [place] [phone] Sep, Neck pain M54.2 [facility] [address] [facility] [id number] [address] [place] [phone] Sep, [facility] [address] [facility] [id number] [address] [place] [phone] Aug, Cervical disc disease M50.90 [facility] [address] [id number] [address] [place] [phone] Jul, [facility] [address] [facility] [id number] [address] [place] [phone] Jun, [facility] [address] [facility] [id number] [address] [place] [phone] May, [facility] [address] [id number] [address] [place] [phone] May, Screening for diabetes blanchei tus Z13.1 ; Chronic fatigue R53.82 and Edema, unspecified type R60.9 [facility] [address] [id number] [address] [place] [phone] Apr, Neck pain M54.2 [facility] [address] [id number] [address] [place] [phone] Mar, [facility] [address] [id number] [address] [place] [phone] Mar, Neck pain M54.2 [facility] [address] [id number] [address] [place] [phone] Feb, Cervical disc disease M50.90 [facility] [address] [id number] [address] [place] [phone] Feb, Cervical disc disease M50.90 [facility] [address] [id number] [address] [place] [phone] January, [facility] [address] [id number] [address] [place] [phone] January, [facility] [address] [id number] [address] [place] [phone] January, Cervical disc disease M50.90 [facility] [address] [id number] [address] [place] [phone] January, [facility] [address] [id number] [address] [place] [phone] January, [facility] [address] [id number] [address] [place] [id number] Dec, Cervical disc disease M50.90 [facility] [address] [id number] [address] [place] [id number] Nov, Cervical disc disease M50.90 [facility] [address] [id number] [address] [place] [phone] 08 Oct, 2015 Cervical disc disease M50.90 [facility] [address] [id number] [address] [place] [phone] Sep, Cervical disc disease M50.90 [facility] [address] [id number] [address] [place] [id number] Aug, Dental caries K02.9 and Enco unter for dental examination Z01.20 [facility] [address] [id number] [address] [place] [phone] Aug, [facility] [address] [id number] [address] [place] [phone] Aug, [facility] [address] [id number] [address] [place] [id number] Aug, Encounter for dental examina tion Z01.20 [facility] [address] [id number] [address] [place] [phone] Jul, [facility] [address] [id number] [address] [place] [phone] Jun, Sinusitis J32.9 and Cervical disc disease M50.90 [facility] [address] [id number] [address] [place] [phone] Jun, [facility] [address] [id number] [address] [place] [phone] 24 May, 2015 [facility] [address] [id number] [address] [place] [phone] 23 May, 2015 [facility] [address] [id number] [address] [place] [phone] 22 May, 2015 [facility] [address] [id number] [address] [place] [phone] 11 May, 2015 [facility] [address] [id number] [address] [place] [phone] Apr, Cervical spondylosis without myelopathy 721.0 [facility] [address] [id number] [address] [place] [phone] Mar, [facility] [address] [id number] [address] [place] [phone] January, Cervical spondylosis without myelopathy 721.0 [facility] [address] [id number] [address] [place] [address], [place] [address] Dec, [facility] [address] [id number] [address] [place] [phone] Dec, [facility] [place] [address] [id number] [address] [place] [address], [place] [address] Dec, [facility] [address] [id number] [address] [place] [phone] Nov, [facility] [address] [id number] [address] [place] [phone] Nov, [facility] [address] [id number] [address] [place] [phone] Oct, [facility] [address] [id number] [address] [place] [phone] Oct, [facility] [address] [id number] [address] [place] [phone] Oct, [facility] [address] [id number] [address] [place] [phone] Oct, [facility] [address] [id number] [address] [place] [phone] Oct, [facility] [address] [id number] [address] [place] [phone] Oct, [facility] [address] [id number] [address] [place] [phone] Oct, [facility] [address] [id number] [address] [place] [phone] Oct, [facility] [address] [id number] [address] [place] [address], [place] [phone] Oct, [facility] [address] [id number] [address] [place] [address], [place] [address] Oct, [facility] [address] [id number] [address] [place] [address], [place] [address] Sep, [facility] [address] [id number] [address] [place] [address], [place] [address] Sep, [facility] [address] [id number] [address] [place] [address], [place] [address] Sep, [facility] [address] [id number] [address] [place] [address], [place] [address] Sep, [facility] [address] [id number] [address] [place] [address], [place] [address] Sep, [facility] [address] [id number] [address] [place] [address], [place] [address] Sep, [facility] [address] [id number] [address] [place] [address], [place] [address] Sep, [facility] [address] [id number] [address] [place] [address], [place] [address] Sep, [facility] [address] [id number] [address] [place] [address], [place] [address] Sep, [facility] [address] [id number] [address] [place] [address], [place] [address] Aug, [facility] [address] [id number] [address] [place] [address], [place] [address] Aug, [facility] [address] [id number] [address] [place] [address], [place] [address] Aug, [facility] [address] [id number] [address] [place] [address], [place] [address] Aug, [facility] [address] [id number] [address] [place] [address], [place] [address] Jul, [facility] [address] [id number] [address] [place] [address], [place] [address] Jul, [facility] [address] [id number] [address] [place] [address], [place] [address] Jul, [facility] [address] [id number] [address] [place] [address], [place] [address] Jul, [facility] [address] [id number] [address] [place] [address], [place] [address] Jul, [facility] [address] [id number] [address] [place] [address], [place] [address] Jul, [facility] [address] [id number] [address] [place] [address], [place] [address] Jul, [facility] [address] [id number] [address] [place] [address], [place] [address] Jul, [facility] [address] [id number] [address] [place] [address], [place] [address] Jun, [facility] [address] [id number] [address] [place] [address], [place] [address] 27 Jun, 2014 [facility] [address] [id number] [address] [place] [address], [place] [address] Jun, [facility] [address] [id number] [address] [place] [id number] 20 Jun, 2014 [facility] [address] [id number] [address] [place] [id number] 16 Jun, 2014 [facility] [address] [id number] [address] [place] [address], [place] [address] 15 Jun, 2014 [facility] [address] [id number] [address] [place] [address], [place] [address] 15 Jun, 2014 [facility] [address] [id number] [address] [place] [address], [place] [address] 14 Jun, 2014 [facility] [address] [id number] [address] [place] [address], [place] [address] 14 Jun, 2014 [facility] [address] [id number] [address] [place] [address], [place] [address] Jun, [facility] [address] [id number] [address] [place] [address], [place] [address] Jun, [facility] [address] [id number] [address] [place] [address], [place] [address] May, [facility] [address] [id number] [address] [place] [address], [place] [address] May, [facility] [address] [id number] [address] [place] [address], [place] [address] May, [facility] [address] [id number] [address] [place] [address], [place] [address] May, [facility] [address] [id number] [address] [place] [address], [place] [address] May, [facility] [address] [id number] [address] [place] [address], [place] [address] Apr, [facility] [address] [id number] [address] [place] [address], [place] [address] Apr, [facility] [address] [id number] [address] [place] [address], [place] [address] Apr, [facility] [address] [id number] [address] [place] [address], [place] [address] Apr, [facility] [address] [id number] [address] [place] [address], [place] [address] Apr, [facility] [address] [id number] [address] [place] [address], [place] [address] Apr, [facility] [address] [id number] [address] [place] [address], [place] [address] Mar, [facility] [address] [id number] [address] [place] [address], [place] [address] Mar, [facility] [address] [id number] [address] [place] [address], [place] [address] Mar, [facility] [address] [id number] [address] [place] [address], [place] [address] Mar, [facility] [address] [id number] [address] [place] [address], [place] [address] Mar, [facility] [address] [id number] [address] [place] [address], [place] [address] Mar, [facility] [address] [id number] [address] [place] [address], [place] [address] Feb, [facility] [address] [id number] [address] [place] [address], [place] [address] Feb, [facility] [address] [id number] [address] [place] [address], [place] [address] Feb, [facility] [address] [id number] [address] [place] [address], [place] [address] Feb, [facility] [address] [id number] [address] [place] [address], [place] [address] Feb, [facility] [address] [id number] [address] [place] [address], [place] [address] Feb, [facility] [address] [id number] [address] [place] [address], [place] [address] Feb, [facility] [address] [id number] [address] [place] [address], [place] [address] Feb, [facility] [address] [id number] [address] [place] [address], [place] [address] January, [facility] [address] [id number] [address] [place] [address], [place] [address] January, [facility] [address] [id number] [address] [place] [address], [place] [address] January, [facility] [address] [id number] [address] [place] [address], [place] [address] January, [facility] [address] [id number] [address] [place] [address], [place] [address] January, [facility] [address] [id number] [address] [place] [address], [place] [address] January, [facility] [address] [id number] [address] [place] [address], [place] [address] January, [facility] [address] [id number] [address] [place] [address], [place] [address] January, [facility] [address] [id number] [address] [place] [address], [place] [address] Dec, [facility] [address] [id number] [address] [place] [address], [place] [address] Dec, [facility] [address] [id number] [address] [place] [address], [place] [address] Dec, [facility] [address] [id number] [address] [place] [address], [place] [address] Dec, [facility] [address] [id number] [address] [place] [address], [place] [address] Dec, [facility] [address] [id number] [address] [place] [address], [place] [address] Dec, [facility] [address] [id number] [address] [place] [address], [place] [address] Nov, [facility] [address] [id number] [address] [place] [address], [place] [address] Nov, [facility] [address] [id number] [address] [place] [address], [place] [address] Nov, [facility] [address] [id number] [address] [place] [address], [place] [address] Nov, [facility] [address] [id number] [address] [place] [address], [place] [address] Nov, [facility] [address] [id number] [address] [place] [address], [place] [address] Nov, [facility] [address] [id number] [address] [place] [address], [place] [address] Nov, [facility] [address] [id number] [address] [place] [address], [place] [address] Nov, [facility] [address] [id number] [address] [place] [address], [place] [address] Oct, [facility] [address] [id number] [address] [place] [address], [place] [address] Oct, [facility] [address] [id number] [address] [place] [address], [place] [address] Sep, [facility] [address] [id number] [address] [place] [address], [place] [address] Sep, [facility] [address] [id number] [address] [place] [address], [place] [address] Sep, [facility] [address] [id number] [address] [place] [address], [place] [address] Sep, [facility] [address] [id number] [address] [place] [address], [place] [address] Aug, [facility] [address] [id number] [address] [place] [address], [place] [address] Aug, [facility] [address] [id number] [address] [place] [address], [place] [address] Aug, [facility] [address] [id number] [address] [place] [address], [place] [address] Aug, [facility] [address] [id number] [address] [place] [address], [place] [address] Jul, [facility] [address] [id number] [address] [place] [address], [place] [address] Jul, [facility] [address] [id number] [address] [place] [address], [place] [address] Jul, [facility] [address] [id number] [address] [place] [address], [place] [address] Jul, [facility] [address] [id number] [address] [place] [address], [place] [address] Jul, [facility] [address] [id number] [address] [place] [address], [place] [address] Jul, [facility] [address] [id number] [address] [place] [address], [place] [address] Jul, [facility] [address] [id number] [address] [place] [address], [place] [address] Jul, [facility] [address] [id number] [address] [place] [address], [place] [address] Jul, [facility] [address] [id number] [address] [place] [address], [place] [address] Jul, [facility] [address] [id number] [address] [place] [address], [place] [address] Jul, [facility] [address] [id number] [address] [place] [address], [place] [address] Jul, [facility] [address] [id number] [address] [place] [address] Jun, [facility] [address] [id number] [address] [place] [address] Jun, [facility] [address] [id number] [address] [place] [address] Jun, [facility] [address] [id number] [address] [place] [address], [place] [address] Jun, [facility] [address] [id number] [address] [place] [address] 16 Jun, 2013 [facility] [address] [id number] [address] [place] [address], [place] [address] 14 Jun, 2013 [facility] [address] [id number] [address] [place] [address], [place] [address] 14 Jun, 2013 [facility] [address] [id number] [address] [place] [address], [place] [address] 02 Jun, 2013 [facility] [address] [id number] [address] [place] [address], [place] [address] 15 May, 2013 [facility] [address] [id number] [address] [place] [address], [place] [address] 05 May, 2013 [facility] [address] [id number] [address] [place] [address], [place] [address] May, [facility] [address] [id number] [address] [place] [address], [place] [address] Apr, [facility] [address] [id number] [address] [place] [address], [place] [address] Apr, [facility] [address] [id number] [address] [place] [address], [place] [address] Mar, [facility] [address] [id number] [address] [place] [address], [place] [address] Mar, [facility] [address] [id number] [address] [place] [address], [place] [address] Feb, [facility] [address] [id number] [address] [place] [address], [place] [address] January, [facility] [address] [id number] [address] [place] [address], [place] [address] January, [facility] [address] [id number] [address] [place] [address], [place] [address] January, [facility] [address] [id number] [address] [place] [address], [place] [address] January, [facility] [address] [id number] [address] [place] [address], [place] [address] January, [facility] [address] [id number] [address] [place] [address], [place] [address] Dec, [facility] [address] [id number] [address] [place] [address], [place] [address] 17 Dec, 2012 [facility] [address] [id number] [address] [place] [address], [place] [address] 02 Dec, 2012 [facility] [address] [id number] [address] [place] [address], [place] [address] 18 Nov, 2012 [facility] [address] [id number] [address] [place] [address], [place] [address] 27 Oct, 2012 [facility] [address] [id number] [address] [place] [address], [place] [address] 18 Oct, 2012 [facility] [address] [id number] [address] [place] [address], [place] [address] 15 Oct, 2012 [facility] [address] [id number] [address] [place] [address], [place] [address] 18 Sep, 2012 [facility] [address] [id number] [address] [place] [address], [place] [address] 16 Sep, 2012 [facility] [address] [id number] [address] [place] [address], [place] [address] 14 Aug, 2012 [facility] [address] [id number] [address] [place] [address], [place] [address] 14 Aug, 2012 [facility] [address] [id number] [address] [place] [address], [place] [address] 11 Aug, 2012 [facility] [address] [id number] [address] [place] [address], [place] [address] Aug, [facility] [address] [id number] [address] [place] [address], [place] [address] Jul, [facility] [address] [id number] [address] [place] [address], [place] [address] Jul, [facility] [address] [id number] [address] [place] [address], [place] [address] Jul, [facility] [address] [id number] [address] [place] [address], [place] [address] Jul, [facility] [address] [id number] [address] [place] [address], [place] [address] Jul, [facility] [address] [id number] [address] [place] [address], [place] [address] 15 Jun, 2012 [facility] [address] [id number] [address] [place] [address], [place] [address] 15 Jun, 2012 [facility] [address] [id number] [address] [place] [address], [place] [address] Jun, [facility] [address] [id number] [address] [place] [address], [place] [address] Jun, [facility] [address] [id number] [address] [place] [address], [place] [address] May, [facility] [address] [id number] [address] [place] [address], [place] [address] Apr, [facility] [address] [id number] [address] [place] [address], [place] [address] Apr, [facility] [address] [id number] [address] [place] [address], [place] [address] Apr, [facility] [address] [id number] [address] [place] [address], [place] [address] Apr, [facility] [address] [id number] [address] [place] [address], [place] [address] January, [facility] [address] [id number] [address] [place] [address], [place] [address] January, [facility] [address] [id number] [address] [place] [address], [place] [address] Dec, [facility] [address] [id number] [address] [place] [address], [place] [address] Dec, [facility] [address] [id number] [address] [place] [address], [place] [address] Nov, [facility] [address] [id number] [address] [place] [address], [place] [address] Nov, [facility] [address] [id number] [address] [place] [address], [place] [address] Nov, [facility] [address] [id number] [address] [place] [address], [place] [address] Nov, [facility] [address] [id number] [address] [place] [address], [place] [address] Oct, [facility] [address] [id number] [address] [place] [address], [place] [address] Oct, [facility] [address] [id number] [address] [place] [address], [place] [address] Oct, [facility] [address] [id number] [address] [place] [address], [place] [address] Sep, [facility] [address] [id number] [address] [place] [address], [place] [address] Sep, [facility] [address] [id number] [address] [place] [address], [place] [address] Aug, [facility] [address] [id number] [address] [place] [address], [place] [address] Aug, [facility] [address] [id number] [address] [place] [address], [place] [address] Jul, [facility] [address] [id number] [address] [place] [address], [place] [address] Jul, [facility] [address] [id number] [address] [place] [address], [place] [address] Jul, [facility] [address] [id number] [address] [place] [address], [place] [address] Jun, [facility] [address] [id number] [address] [place] [address], [place] [address] 24 Jun, 2011 [facility] [address] [id number] [address] [place] [address], [place] [address] Jun, [facility] [address] [id number] [address] [place] [address], [place] [address] 10 Jun, 2011 [facility] [address] [id number] [address] [place] [address], [place] [address] 10 Jun, 2011 [facility] [address] [id number] [address] [place] [address], [place] [address] Jun, [facility] [address] [id number] [address] [place] [address], [place] [address] Aug, [facility] [address] [id number] [address] [place] [address], [place] [address] Aug, [facility] [address] [id number] [address] [place] [address], [place] [address] Aug, [facility] [address] [id number] [address] [place] [address], [place] [address] Jul, [facility] [address] [id number] [address] [place] [address] Jul, [facility] [address] [id number] [address] [place] [address], [place] [address] Jul, [facility] [address] [id number] [address] [place] [address] Jul, [facility] [address] [id number] [address] [place] [address] Jul, [facility] [address] [id number] [address] [place] [address] Jul, [facility] [address] [id number] [address] [place] [address], [place] [address] Jun, [facility] [address] [id number] [address] [place] [address] Apr, [facility] [address] [id number] [address] [place] [address] Feb, [facility] [address] [id number] [address] [place] [address] 10 Oct, 2009 [facility] [address] [facility] [id number] [address] [place] [address] Sep, [facility] [address] [facility] [id number] [address] [place] [id number] Aug, [facility] [address] [facility] [id number] [address] [place] [id number] Aug, [facility] [address] [facility] [id number] [address] [place] [address] Aug, [facility] [address] [facility] [id number] [address] [place] [address] Jul, [facility] [address] [facility] [id number] [address] [place] [id number] Jun, IMMUNIZATIONS No Known Immunizations SOCIAL HISTORY Never Assessed REASON FOR VISIT PLAN OF CARE VITAL SIGNS Height 65 in 2014-09-07 Weight 180.3 lbs 2014-09-07 Temperature 97.7 degrees Fahrenheit 2014-09-07 Heart Rate 100 bpm 2014-09-07 Respiratory Rate 18 2014-09-07 Blood pressure systolic 140 mmHg 2014-09-07 Blood pressure diastolic 82 mmHg 2014-09-07 MEDICATIONS Unknown Medications RESULTS No Results PROCEDURES Procedure Date Ordered Result Body Site MRI NECK SPINE W/O DYE Sep 07, 2014 INSTRUCTIONS MEDICATIONS ADMINISTERED No Known Medications [...]
--- OUTSIDE RECORDS SUMMARY | 2020-02-22 17:22 | XMS REPORT ---
Author Author Marion CORREA Organization [facility] Address [address] [place] [address] Care Team Providers Care String Cutter Name Role Phone SHABNAM CORREA Unavailable PROBLEMS Type Condition ICD9-CM Code EDA28-XQ Code Onset Dates Condition S tatus SNOMED Code Problem Migraine without aura and without status migrain osus, not intractable G43.009 Active 190702347 Problem Acquired hypothyroidism E03.9 Active 161820305 Problem Cervical disc disease M50.90 Active 039718058 Problem Dyspepsia R10.13 Active [id number] ALLERGIES No Information ENCOUNTERS Encounter Location Date Diagnosis [facility] [address] [facility] [id number] [address] [place] [id number] Apr, [facility] [address] [id number] [address] [place] [phone] Apr, Cervical disc disease M50.90 [facility] [address] [facility] [id number] [address] [place] [id number] Mar, [facility] [address] [facility] [id number] [address] [place] [id number] Mar, Cervical disc disease M50.90 [facility] [address] [facility] [id number] [address] [place] [id number] Feb, [address] [id number] Feb, Cervical disc disease M50.[address] [id number] January, [facility] [address] [facility] [id number] [address] [place] [id number] January, Cervical disc disease M50.90 [facility] [address] [facility] [id number] [address] [place] [phone] January, Cervical disc disease M50.90 [facility] [address] [facility] [id number] [address] [place] [id number] Dec, Cervical disc disease M50.90 [facility] [address] [facility] [id number] [address] [place] [id number] Dec, Cervical disc disease M50.90 [facility] [address] [facility] [id number] [address] [place] [id number] Dec, Cervical disc disease M50.90 [facility] [address] [facility] [id number] [address] [place] [phone] Dec, Cervical disc disease M50.90 ; Acquired hypothyroidism E03.9 and Migraine without aura and without status migrainosus, not intractable G43.009 [facility] [address] [facility] [id number] [address] [place] [id number] Nov, [facility] [address] [facility] [id number] [address] [place] [id number] Nov, Cervical disc disease M50.90 [facility] [address] [facility] [id number] [address] [place] [phone] Oct, Cervical disc disease M50.90 [facility] [address] [facility] [id number] [address] [place] [phone] Sep, [facility] [address] [facility] [id number] [address] [place] [id number] Sep, Cervical disc disease M50.90 [facility] [address] [facility] [id number] [address] [place] [id number] Aug, Cervical disc disease M50.90 [facility] [address] [facility] [id number] [address] [place] [id number] Jul, Cervical disc disease M50.90 [facility] [address] [facility] [id number] [address] [place] [id number] Jun, Acute recurrent pansinusitis J01.41 and Cervical disc disease M50.90 [facility] [address] [id number] [address] [place] [id number] Jun, Cervical disc disease M50.90 [facility] [address] [id number] [address] [place] [id number] May, Cervical disc disease M50.90 [facility] [address] [id number] [address] [place] [phone] Apr, Cervical disc disease M50.90 [facility] [address] [id number] [address] [place] [id number] Mar, Cervical disc disease M50.90 [facility] [address] [id number] [address] [place] [phone] Mar, [facility] [address] [id number] [address] [place] [id number] Mar, Cervical disc disease M50.90 [facility] [address] [id number] [address] [place] [id number] Feb, Cervical disc disease M50.90 [facility] [address] [id number] [address] [place] [phone] January, Cervical disc disease M50.90 [facility] [address] [id number] [address] [place] [id number] Dec, [facility] [address] [id number] [address] [place] [id number] Dec, Cervical disc disease M50.90 [facility] [address] [id number] [address] [place] [phone] Nov, Cervical disc disease M50.90 [facility] [address] [id number] [address] [place] [id number] Nov, Cervical disc disease M50.90 [facility] [address] [id number] [address] [place] [phone] Oct, Cervical disc disease M50.90 [facility] [address] [facility] [id number] [address] [place] [phone] Oct, Cervical disc disease M50.90 and Acute non-recurrent maxillary sinusitis J01.00 [facility] [address] [facility] [id number] [address] [place] [phone] Sep, Cervical disc disease M50.90 [facility] [address] [facility] [id number] [address] [place] [id number] Sep, [facility] [address] [facility] [id number] [address] [place] [id number] Sep, Fatigue, unspecified type R5 3.83 and Cough R05 [facility] [address] [facility] [id number] [address] [place] [id number] Aug, Cervical disc disease M50.90 [facility] [address] [place] [id number] [address] [place] [id number] Aug, Sore throat J02.9 ; Canker s ore K12.0 and History of anemia Z86.2 [place] [address] [place] [id number] [address] [place] [id number] Jul, Cervical disc disease M50.90 [facility] [address] [place] [id number] [address] [place] [id number] Jun, Cervical disc disease M50.90 [facility] [address] [place] [id number] [address] [place] [id number] Jun, Cervical disc disease M50.90 [facility] [address] [facility] [id number] [address] [place] [id number] May, Cervical disc disease M50.90 [facility] [address] [place] [id number] [address] [place] [id number] Apr, Cervical disc disease M50.90 [facility] [address] [place] [id number] [address] [place] [id number] Apr, [facility] [address] [id number] [address] [place] [id number] Feb, Cervical disc disease M50.90 [facility] [address] [id number] [address] [place] [id number] January, Cervical disc disease M50.90 [facility] [address] [facility] [id number] [address] [place] [phone] Nov, [facility] [address] [facility] [id number] [address] [place] [phone] Nov, Cervical disc disease M50.90 [facility] [address] [facility] [id number] [address] [place] [phone] Nov, Acute cystitis with hematuri a N30.01 and Dysuria R30.0 [facility] [address] [facility] [id number] [address] [place] [id number] Oct, Cervical disc disease M50.90 and Acute non-recurrent frontal sinusitis J01.10 [facility] [address] [facility] [id number] [address] [place] [id number] Sep, Neck pain M54.2 [facility] [address] [facility] [id number] [address] [place] [id number] Sep, [facility] [address] [facility] [id number] [address] [place] [id number] Aug, Cervical disc disease M50.90 [facility] [address] [facility] [id number] [address] [place] [id number] Jul, [facility] [address] [facility] [id number] [address] [place] [id number] Jun, [facility] [address] [facility] [id number] [address] [place] [phone] May, [facility] [address] [facility] [id number] [address] [place] [id number] May, Screening for diabetes melli tus Z13.1 ; Chronic fatigue R53.82 and Edema, unspecified type R60.9 [facility] [address] [id number] [address] [place] [id number] Apr, Neck pain M54.2 [facility] [address] [id number] [address] [place] [phone] Mar, [facility] [address] [id number] [address] [place] [phone] Mar, Neck pain M54.2 [facility] [address] [id number] [address] [place] [id number] Feb, Cervical disc disease M50.90 [facility] [address] [id number] [address] [place] [id number] Feb, Cervical disc disease M50.90 [facility] [address] [id number] [address] [place] [phone] January, [facility] [address] [id number] [address] [place] [phone] January, [facility] [address] [id number] [address] [place] [phone] January, Cervical disc disease M50.90 [facility] [address] [id number] [address] [place] [id number] January, [facility] [address] [id number] [address] [place] [phone] January, [facility] [address] [id number] [address] [place] [phone] Dec, Cervical disc disease M50.90 [facility] [address] [id number] [address] [place] [phone] Nov, Cervical disc disease M50.90 [facility] [address] [id number] [address] [place] [id number] Oct, Cervical disc disease M50.90 [facility] [address] [id number] [address] [place] [phone] Sep, Cervical disc disease M50.90 [facility] [address] [id number] [address] [place] [id number] Aug, Dental caries K02.9 and Enco unter for dental examination Z01.20 [facility] [address] [id number] [address] [place] [phone] Aug, [facility] [address] [id number] [address] [place] [id number] Aug, [facility] [address] [id number] [address] [place] [id number] Aug, Encounter for dental examina tion Z01.20 [facility] [address] [id number] [address] [place] [phone] Jul, [facility] [address] [id number] [address] [place] [id number] Jun, Sinusitis J32.9 and Cervical disc disease M50.90 [facility] [address] [id number] [address] [place] [id number] Jun, [facility] [address] [id number] [address] [place] [phone] May, [facility] [address] [id number] [address] [place] [phone] May, [facility] [address] [id number] [address] [place] [phone] May, [facility] [address] [id number] [address] [place] [id number] May, [facility] [address] [id number] [address] [place] [id number] Apr, Cervical spondylosis without myelopathy 721.0 [facility] [address] [id number] [address] [place] [id number] Mar, [facility] [address] [id number] [address] [place] [id number] January, Cervical spondylosis without myelopathy 721.0 [facility] [address] [id number] [address] [place] [id number] Dec, [facility] [address] [id number] [address] [place] [phone] Dec, [facility] [address] [id number] [address] [place] [phone] Dec, [facility] [address] [id number] [address] [place] [id number] Nov, [facility] [address] [id number] [address] [place] [id number] Nov, [facility] [address] [id number] [address] [place] [phone] Oct, [facility] [address] [id number] [address] [place] [phone] Oct, [facility] [address] [id number] [address] [place] [phone] Oct, [facility] [address] [id number] [address] [place] [id number] Oct, [facility] [address] [id number] [address] [place] [phone] Oct, [facility] [address] [id number] [address] [place] [phone] Oct, [facility] [address] [id number] [address] [place] [phone] Oct, [facility] [address] [id number] [address] [place] [id number] Oct, [facility] [address] [id number] [address] [place] [phone] Oct, [facility] [address] [id number] [address] [place] [address], [place] [address] Oct, [facility] [address] [id number] [address] [place] [address], [place] [address] Sep, [facility] [address] [id number] [address] [place] [address], [place] [phone] Sep, [facility] [address] [id number] [address] [place] [address], [place] [id number] Sep, [facility] [address] [id number] [address] [place] [address], [place] [id number] Sep, [facility] [address] [id number] [address] [place] [address], [place] [id number] Sep, [facility] [address] [id number] [address] [place] [address], [place] [phone] Sep, [facility] [address] [id number] [address] [place] [address], [place] [id number] Sep, [facility] [address] [id number] [address] [place] [address], [place] [id number] Sep, [facility] [address] [id number] [address] [place] [address], [place] [id number] Sep, [facility] [address] [id number] [address] [place] [address], [place] [id number] Aug, [facility] [address] [id number] [address] [place] [address], [place] [id number] Aug, [facility] [address] [id number] [address] [place] [address], [place] [id number] Aug, [facility] [address] [id number] [address] [place] [address], [place] [id number] Aug, [facility] [address] [id number] [address] [place] [address], [place] [id number] Jul, [facility] [address] [id number] [address] [place] [address], [place] [id number] Jul, [facility] [address] [id number] [address] [place] [address], [place] [id number] Jul, [facility] [address] [id number] [address] [place] [address], [place] [id number] Jul, [facility] [address] [id number] [address] [place] [address], [place] [id number] Jul, [facility] [address] [id number] [address] [place] [address], [place] [id number] Jul, [facility] [address] [id number] [address] [place] [address], [place] [address] Jul, [facility] [address] [id number] [address] [place] [address], [place] [id number] Jul, [facility] [address] [id number] [address] [place] [address], [place] [address] Jun, [facility] [address] [id number] [address] [place] [address], [place] [id number] 27 Jun, 2014 [facility] [address] [id number] [address] [place] [address], [place] [address] 20 Jun, 2014 [facility] [address] [id number] [address] [place] [address], [place] [id number] 20 Jun, 2014 [facility] [address] [id number] [address] [place] [address], [place] [id number] 16 Jun, 2014 [facility] [address] [id number] [address] [place] [address], [place] [id number] 15 Jun, 2014 [facility] [address] [id number] [address] [place] [address], [place] [id number] 15 Jun, 2014 [facility] [address] [id number] [address] [place] [address], [place] [id number] 14 Jun, 2014 [facility] [address] [id number] [address] [place] [address], [place] [id number] 14 Jun, 2014 [facility] [address] [id number] [address] [place] [address] [place] [id number] Jun, [facility] [address] [id number] [address] [place] [address], [place] [address] Jun, [facility] [address] [id number] [address] [place] [address], [place] [id number] May, [facility] [address] [id number] [address] [place] [address], [place] [address] May, [facility] [address] [id number] [address] [place] [address], [place] [id number] May, [facility] [address] [id number] [address] [place] [address], [place] [address] May, [facility] [address] [id number] [address] [place] [address], [place] [id number] May, [facility] [address] [id number] [address] [place] [address], [place] [id number] Apr, [facility] [address] [id number] [address] [place] [address], [place] [address] Apr, [facility] [address] [id number] [address] [place] [address], [place] [id number] Apr, [facility] [address] [id number] [address] [place] [address], [place] [id number] Apr, [facility] [address] [id number] [address] [place] [address], [place] [address] Apr, [facility] [address] [id number] [address] [place] [address], [place] [id number] Apr, [facility] [address] [id number] [address] [place] [address], [place] [address] Mar, [facility] [address] [id number] [address] [place] [address], [place] [address] Mar, [facility] [address] [id number] [address] [place] [address], [place] [address] Mar, [facility] [address] [id number] [address] [place] [address] Mar, [facility] [address] [id number] [facility] [place] [address] Mar, [facility] [address] [id number] [address] [place] [address], [place] [id number] Mar, [facility] [address] [id number] [address] [place] [address], [place] [address] Feb, [facility] [address] [id number] [address] [place] [address], [place] [id number] Feb, [facility] [address] [id number] [address] [place] [address], [place] [address] Feb, [facility] [address] [id number] [address] [place] [address], [place] [id number] Feb, [facility] [address] [id number] [address] [place] [address], [place] [address] Feb, [facility] [address] [id number] [address] [place] [address], [place] [address] Feb, [facility] [address] [id number] [address] [place] [address], [place] [address] Feb, [facility] [address] [id number] [address] [place] [address], [place] [address] Feb, [facility] [address] [id number] [address] [place] [address], [place] [address] January, [facility] [address] [id number] [address] [place] [address], [place] [address] January, [facility] [address] [id number] [address] [place] [address], [place] [id number] January, [facility] [address] [id number] [address] [place] [address], [place] [address] January, [facility] [address] [id number] [address] [place] [address], [place] [address] January, [facility] [address] [id number] [address] [address] January, [facility] [address] [id number] [address] [place] [address], [place] [address] January, [facility] [address] [id number] [address] [place] [address], [place] [address] January, [facility] [address] [id number] [address] [place] [address], [place] [address] Dec, [facility] [address] [id number] [address] [place] [address], [place] [address] Dec, [facility] [address] [id number] [address] [place] [address], [place] [address] Dec, [facility] [address] [id number] [address] [place] [address], [place] [address] Dec, [facility] [address] [id number] [address] [place] [address], [place] [address] Dec, [facility] [address] [id number] [address] [place] [address], [place] [address] Dec, [facility] [address] [id number] [address] [place] [address], [place] [address] Nov, [facility] [address] [id number] [address] [place] [address], [place] [address] Nov, [facility] [place] [facility] [address] [id number] [address] [place] [address], [place] [address] Nov, [facility] [place] [facility] [address] [id number] [address] [place] [address], [place] [address] Nov, [facility] [place] [facility] [address] [id number] [address] [place] [address], [place] [address] Nov, [facility] [place] [facility] [address] [id number] [address] [place] [address], [place] [address] Nov, [facility] [place] [facility] [address] [id number] [address] [address] Nov, [facility] [address] [id number] [address] [place] [address], [place] [address] Nov, [facility] [address] [id number] [address] [place] [address], [place] [address] Oct, [facility] [place] [address] [id number] [address] [place] [address], [place] [address] Oct, [facility] [address] [id number] [address] [place] [address], [place] [address] Sep, [facility] [place] [address] [id number] [address] [place] [address], [place] [address] Sep, [facility] [place] [address] [id number] [address] [place] [address], [place] [address] Sep, [facility] [place] [address] [id number] [address] [place] [address], [place] [address] Sep, [facility] [address] [id number] [address] [place] [address], [place] [address] Aug, [facility] [place] [address] [id number] [address] [place] [address], [place] [address] Aug, [facility] [address] [id number] [address] [place] [address], [place] [address] Aug, [facility] [place] [address] [id number] [address] [place] [address], [place] [address] Aug, [facility] [address] [id number] [address] [place] [address], [place] [address] Jul, [facility] [address] [id number] [address] [place] [address], [place] [address] Jul, [facility] [address] [id number] [address] [place] [address], [place] [address] Jul, [facility] [address] [id number] [address] [place] [address], [place] [address] Jul, [facility] [address] [id number] [address] [place] [address], [place] [address] Jul, [facility] [address] [id number] [address] [place] [address], [place] [address] Jul, [facility] [address] [id number] [address] [place] [address], [place] [address] Jul, [facility] [place] [facility] [address] [id number] [address] [place] [address], [place] [address] Jul, [facility] [address] [id number] [address] [place] [address], [place] [address] Jul, [facility] [address] [id number] [address] [place] [address], [place] [address] Jul, [facility] [address] [id number] [address] [place] [address], [place] [address] Jul, [facility] [address] [id number] [address] [place] [id number] Jul, [facility] [address] [id number] [address] [place] [address], [place] [address] Jun, [facility] [address] [id number] [address] [place] [id number] Jun, [facility] [address] [id number] [address] [place] [id number] Jun, [facility] [address] [id number] [address] [place] [id number] Jun, [facility] [address] [id number] [address] [place] [id number] 16 Jun, 2013 [facility] [address] [id number] [address] [place] [id number] 14 Jun, 2013 [facility] [place] [facility] [address] [id number] [address] [place] [id number] Jun, [facility] [address] [id number] [address] [place] [id number] Jun, [facility] [address] [id number] [address] [place] [address], [place] [address] May, [facility] [address] [id number] [address] [place] [address], [place] [address] May, [facility] [address] [id number] [address] [place] [address], [place] [address] May, [facility] [address] [id number] [address] [place] [address], [place] [address] Apr, [facility] [address] [id number] [address] [place] [address], [place] [address] Apr, [facility] [address] [id number] [address] [place] [address], [place] [address] Mar, [facility] [place] [address] [id number] [address] [place] [address], [place] [address] Mar, [facility] [address] [id number] [address] [place] [address], [place] [address] Feb, [facility] [place] [address] [id number] [address] [place] [address], [place] [address] January, [facility] [place] [address] [id number] [address] [place] [address], [place] [address] January, [facility] [place] [address] [id number] [address] [place] [address], [place] [address] January, [facility] [address] [id number] [address] [place] [address], [place] [address] January, [facility] [address] [id number] [address] [place] [address], [place] [address] January, [facility] [address] [id number] [address] [place] [address], [place] [address] 29 Dec, 2012 [facility] [address] [id number] [address] [place] [address], [place] [address] Dec, [facility] [place] [facility] [address] [id number] [address] [place] [address], [place] [address] 02 Dec, 2012 [facility] [address] [id number] [address] [place] [address], [place] [address] Nov, [facility] [address] [id number] [address] [place] [address], [place] [address] 27 Oct, 2012 [facility] [address] [id number] [address] [place] [address], [place] [address] 18 Oct, 2012 [facility] [address] [id number] [address] [place] [address], [place] [address] 15 Oct, 2012 [facility] [address] [id number] [address] [place] [address], [place] [address] 18 Sep, 2012 [facility] [address] [id number] [address] [place] [address], [place] [address] 16 Sep, 2012 [facility] [address] [id number] [address] [place] [address], [place] [address] 14 Aug, 2012 [facility] [address] [id number] [address] [place] [address], [place] [address] 14 Aug, 2012 [facility] [address] [id number] [address] [place] [address], [place] [address] Aug, [facility] [address] [id number] [address] [place] [address], [place] [address] Aug, [facility] [address] [id number] [address] [place] [address], [place] [address] Jul, [facility] [address] [id number] [address] [place] [address], [place] [address] Jul, [facility] [address] [id number] [address] [place] [address], [place] [address] Jul, [facility] [address] [id number] [address] [place] [address], [place] [address] 09 Jul, 2012 [facility] [address] [id number] [address] [place] [address], [place] [address] Jul, [facility] [address] [id number] [address] [place] [address], [place] [address] 15 Jun, 2012 [facility] [place] [facility] [address] [id number] [address] [place] [address], [place] [address] 15 Jun, 2012 [facility] [address] [id number] [address] [place] [address], [place] [address] 10 Jun, 2012 [facility] [place] [facility] [address] [id number] [address] [place] [address], [place] [address] Jun, [facility] [address] [id number] [address] [place] [address], [place] [address] May, [facility] [address] [id number] [address] [place] [address], [place] [address] Apr, [facility] [address] [id number] [address] [place] [address], [place] [address] Apr, [facility] [place] [facility] [address] [id number] [address] [place] [address], [place] [address] Apr, [facility] [address] [id number] [address] [place] [address], [place] [address] Apr, [facility] [place] [facility] [address] [id number] [address] [place] [address], [place] [address] January, [facility] [address] [id number] [address] [place] [address], [place] [address] January, [facility] [place] [facility] [address] [id number] [address] [place] [address], [place] [address] Dec, [facility] [place] [facility] [address] [id number] [address] [place] [address], [place] [address] Dec, [facility] [place] [facility] [address] [id number] [address] [place] [address], [place] [address] Nov, [facility] [place] [facility] [address] [id number] [address] [place] [address], [place] [address] Nov, [facility] [place] [facility] [address] [id number] [address] [place] [address], [place] [address] Nov, [facility] [address] [id number] [address] [place] [address], [place] [address] Nov, [facility] [address] [id number] [address] [place] [address], [place] [address] Oct, [facility] [address] [id number] [address] [place] [address], [place] [address] Oct, [facility] [address] [id number] [address] [place] [address], [place] [address] Oct, [facility] [address] [id number] [address] [place] [address], [place] [address] Sep, [facility] [address] [id number] [address] [place] [address], [place] [address] Sep, [facility] [address] [id number] [address] [place] [address], [place] [address] Aug, [facility] [address] [id number] [address] [place] [address], [place] [address] Aug, [facility] [address] [id number] [address] [place] [address], [place] [address] Jul, [facility] [address] [id number] [address] [place] [address], [place] [address] Jul, [facility] [address] [id number] [address] [place] [address], [place] [address] Jul, [facility] [address] [id number] [address] [place] [address], [place] [address] Jun, [facility] [address] [id number] [address] [place] [address], [place] [address] 24 Jun, 2011 [facility] [address] [id number] [address] [place] [address], [place] [address] Jun, [facility] [address] [id number] [address] [place] [address], [place] [address] Jun, [facility] [address] [id number] [address] [place] [address], [place] [address] 10 Jun, 2011 [facility] [address] [id number] [address] [place] [address], [place] [address] Jun, [facility] [address] [id number] [address] [place] [address], [place] [address] Aug, [facility] [place] [facility] [address] [id number] [address] [place] [address], [place] [address] Aug, [facility] [address] [id number] [address] [place] [address], [place] [address] Aug, [facility] [address] [id number] [address] [place] [address], [place] [address] Jul, [facility] [address] [id number] [address] [place] [address], [place] [address] Jul, [facility] [address] [id number] [address] [place] [address], [place] [address] Jul, [facility] [address] [id number] [address] [place] [address], [place] [address] Jul, [facility] [address] [id number] [address] [place] [address], [place] [address] Jul, [facility] [address] [id number] [address] [place] [address], [place] [address] Jul, [facility] [address] [id number] [address] [place] [address], [place] [address] Jun, [facility] [place] [facility] [address] [id number] [address] [place] [address], [place] [address] Apr, [facility] [place] [facility] [address] [id number] [address] [place] [address], [place] [address] Feb, [facility] [place] [facility] [address] [id number] [address] [place] [address], [place] [address] 10 Oct, 2009 [facility] [place] [facility] [address] [id number] [address] [place] [id number] 13 Sep, 2009 [facility] [address] [facility] [id number] [address] [place] [id number] Aug, [facility] [address] [facility] [id number] [address] [place] [id number] Aug, [facility] [address] [facility] [id number] [address] [place] [id number] Aug, [facility] [address] [facility] [id number] [address] [place] [id number] Jul, [facility] [address] [facility] [id number] [address] [place] [id number] Jun, IMMUNIZATIONS No Known Immunizations SOCIAL HISTORY [...]
--- OUTSIDE RECORDS SUMMARY | 2020-02-22 17:22 | XMS REPORT ---
Author Author Marion Alexander Doctor Organization [facility] Address Unknown Phone Unavailable Care Team Providers Care Geophysical Laboratory Director Name Role Phone Migration, Doctor Unavailable Unavailable PROBLEMS Type Condition ICD9-CM Code [id number] Code Onset Dates Condition S tatus SNOMED Code Problem Migraine without aura and without status migrain osus, not intractable G43.009 Active 639575974 Problem Acquired hypothyroidism E03.9 Active 499423758 Problem Cervical disc disease M50.90 Active 636634771 Problem Dyspepsia R10.13 Active [id number] ALLERGIES No Information ENCOUNTERS Encounter Location Date Diagnosis [facility] [address] [facility] [id number] [address] [place] [address] Mar, [facility] [address] [id number] [address] [place] [address] Mar, Cervical disc disease M50.90 [facility] [address] [facility] [id number] [address] [place] [address] Feb, [facility] [address] [place] [address] Feb, Cervical disc disease M50.[address] [address] January, [facility] [address] [facility] [id number] [address] [place] [address] January, Cervical disc disease M50.90 [facility] [address] [id number] [address] [place] [address] January, Cervical disc disease M50.90 [facility] [address] [facility] [id number] [address] [place] [address] Dec, Cervical disc disease M50.90 [facility] [address] [facility] [id number] [address] [place] [address] Dec, Cervical disc disease M50.90 [facility] [address] [facility] [id number] [address] [place] [address] Dec, Cervical disc disease M50.90 [facility] [address] [facility] [id number] [address] [place] [address] Dec, Cervical disc disease M50.90 ; Acquired hypothyroidism E03.9 and Migraine without aura and without status migrainosus, not intractable G43.009 [facility] [address] [facility] [id number] [address] [place] [address] Nov, [facility] [address] [facility] [id number] [address] [place] [address] Nov, Cervical disc disease M50.90 [facility] [address] [facility] [id number] [address] [place] [address] Oct, Cervical disc disease M50.90 [facility] [address] [facility] [id number] [address] [place] [address] Sep, [facility] [address] [facility] [id number] [address] [place] [address] Sep, Cervical disc disease M50.90 [facility] [address] [facility] [id number] [address] [place] [address] Aug, Cervical disc disease M50.90 [facility] [address] [facility] [id number] [address] [place] [address] Jul, Cervical disc disease M50.90 [facility] [address] [facility] [id number] [address] [place] [address] Jun, Acute recurrent pansinusitis J01.41 and Cervical disc disease M50.90 [facility] [address] [facility] [id number] [address] [place] [address] 24 Jun, 2018 Cervical disc disease M50.90 [facility] [address] [facility] [id number] [address] [place] [address] May, Cervical disc disease M50.90 [facility] [address] [id number] [address] [place] [address] Apr, Cervical disc disease M50.90 [facility] [address] [id number] [address] [place] [address] Mar, Cervical disc disease M50.90 [facility] [address] [id number] [address] [place] [address] Mar, [facility] [address] [id number] [address] [place] [address] Mar, Cervical disc disease M50.90 [facility] [address] [id number] [address] [place] [address] Feb, Cervical disc disease M50.90 [facility] [address] [id number] [address] [place] [address] January, Cervical disc disease M50.90 [facility] [address] [id number] [address] [place] [address] Dec, [facility] [address] [id number] [address] [place] [address] Dec, Cervical disc disease M50.90 [facility] [address] [id number] [address] [place] [address] Nov, Cervical disc disease M50.90 [facility] [address] [id number] [address] [place] [address] Nov, Cervical disc disease M50.90 [facility] [address] [id number] [address] [place] [address] Oct, Cervical disc disease M50.90 [facility] [address] [facility] [id number] [address] [place] [address] Oct, Cervical disc disease M50.90 and Acute non-recurrent maxillary sinusitis J01.00 [facility] [address] [id number] [address] [place] [address] Sep, Cervical disc disease M50.90 [facility] [address] [facility] [id number] [address] [place] [address] Sep, [facility] [address] [facility] [id number] [address] [place] [address] Sep, Fatigue, unspecified type R5 3.83 and Cough R05 [facility] [address] [facility] [id number] [address] [place] [address] Aug, Cervical disc disease M50.90 [facility] [address] [facility] [id number] [address] [place] [address] Aug, Sore throat J02.9 ; Canker s ore K12.0 and History of anemia Z86.2 [facility] [address] [facility] [id number] [address] [place] [address] Jul, Cervical disc disease M50.90 [facility] [address] [facility] [id number] [address] [place] [address] Jun, Cervical disc disease M50.90 [facility] [address] [facility] [id number] [address] [place] [address] Jun, Cervical disc disease M50.90 [facility] [address] [facility] [id number] [address] [place] [address] May, Cervical disc disease M50.90 [facility] [address] [facility] [id number] [address] [place] [address] Apr, Cervical disc disease M50.90 [facility] [address] [facility] [id number] [address] [place] [address] Apr, [facility] [address] [facility] [id number] [address] [place] [address] Feb, Cervical disc disease M50.90 [facility] [address] [facility] [id number] [address] [place] [address] January, Cervical disc disease M50.90 [facility] [address] [facility] [id number] [address] [place] [address] Nov, [facility] [address] [facility] [id number] [address] [place] [address] Nov, Cervical disc disease M50.90 [facility] [address] [facility] [id number] [address] [place] [address] Nov, Acute cystitis with hematuri a N30.01 and Dysuria R30.0 [facility] [address] [facility] [id number] [address] [place] [address] Oct, Cervical disc disease M50.90 and Acute non-recurrent frontal sinusitis J01.10 [facility] [address] [facility] [id number] [address] [place] [address] Sep, Neck pain M54.2 [place] [address] [facility] [id number] [address] [place] [address] Sep, [facility] [address] [place] [id number] [address] [place] [address] Aug, Cervical disc disease M50.90 [facility] [address] [facility] [id number] [address] [place] [address] Jul, [facility] [address] [place] [id number] [address] [place] [address] Jun, [facility] [address] [place] [id number] [address] [place] [address] May, [facility] [address] [place] [id number] [address] [place] [address] 08 May, 2016 Screening for diabetes melli tus Z13.1 ; Chronic fatigue R53.82 and Edema, unspecified type R60.9 [facility] [address] [facility] [id number] [address] [place] [address] Apr, Neck pain M54.2 [facility] [address] [facility] [id number] [address] [place] [address] Mar, [facility] [address] [id number] [address] [place] [address] Mar, Neck pain M54.2 [facility] [address] [id number] [address] [place] [address] Feb, Cervical disc disease M50.90 [facility] [address] [id number] [address] [place] [address] Feb, Cervical disc disease M50.90 [facility] [address] [id number] [address] [place] [address] January, [facility] [address] [id number] [address] [place] [address] January, [facility] [address] [id number] [address] [place] [address] January, Cervical disc disease M50.90 [facility] [address] [id number] [address] [place] [address] January, [facility] [address] [id number] [address] [place] [address] January, [facility] [address] [id number] [address] [place] [address] Dec, Cervical disc disease M50.90 [facility] [address] [id number] [address] [place] [address] Nov, Cervical disc disease M50.90 [facility] [address] [id number] [address] [place] [address] Oct, Cervical disc disease M50.90 [facility] [address] [id number] [address] [place] [address] Sep, Cervical disc disease M50.90 [facility] [address] [id number] [address] [place] [id number] 16 Aug, 2015 Dental caries K02.9 and Enco unter for dental examination Z01.20 [facility] [address] [id number] [address] [place] [address] Aug, [facility] [address] [id number] [address] [place] [address] Aug, [facility] [address] [id number] [address] [place] [id number] 08 Aug, 2015 Encounter for dental examina tion Z01.20 [facility] [address] [id number] [address] [place] [address] Jul, [facility] [address] [id number] [address] [place] [address] Jun, Sinusitis J32.9 and Cervical disc disease M50.90 [facility] [address] [id number] [address] [place] [address] Jun, [facility] [address] [id number] [address] [place] [address] 24 May, 2015 [facility] [address] [id number] [address] [place] [address] May, [facility] [address] [id number] [address] [place] [address] May, [facility] [address] [id number] [address] [place] [address] May, [facility] [address] [id number] [address] [place] [address] Apr, Cervical spondylosis without myelopathy 721.0 [facility] [address] [id number] [address] [place] [address] Mar, [facility] [address] [id number] [address] [place] [address] January, Cervical spondylosis without myelopathy 721.0 [facility] [address] [id number] [address] [place] [address] Dec, [facility] [address] [id number] [address] [place] [address] Dec, [facility] [address] [id number] [address] [place] [address], [place] [address] Dec, [facility] [address] [id number] [address] [place] [address], [place] [address] Nov, [facility] [address] [id number] [address] [place] [address], [place] [address] Nov, [facility] [address] [id number] [address] [place] [address], [place] [address] Oct, [facility] [address] [id number] [address] [place] [address], [place] [address] Oct, [facility] [address] [id number] [address] [place] [address], [place] [address] Oct, [facility] [address] [id number] [address] [place] [address], [place] [address] Oct, [facility] [address] [id number] [address] [place] [address], [place] [address] Oct, [facility] [address] [id number] [address] [place] [address], [place] [address] Oct, [facility] [address] [id number] [address] [place] [address], [place] [address] Oct, [facility] [address] [id number] [address] [place] [address], [place] [address] Oct, [facility] [address] [id number] [address] [place] [address], [place] [address] Oct, [facility] [address] [id number] [address] [place] [address], [place] [address] Oct, [facility] [address] [id number] [address] [place] [address], [place] [address] Sep, [facility] [address] [id number] [address] [place] [address], [place] [address] Sep, [facility] [address] [id number] [address] [place] [address], [place] [address] Sep, [facility] [address] [id number] [address] [place] [address], [place] [address] Sep, [facility] [address] [id number] [address] [place] [address], [place] [address] Sep, [facility] [address] [id number] [address] [place] [address], [place] [address] Sep, [facility] [address] [id number] [address] [place] [address], [place] [address] Sep, [facility] [address] [id number] [address] [place] [address], [place] [address] Sep, [facility] [address] [id number] [address] [place] [address], [place] [address] Sep, [facility] [address] [id number] [address] [place] [address], [place] [address] Aug, [facility] [address] [id number] [address] [place] [address], [place] [address] Aug, [facility] [address] [id number] [address] [place] [address], [place] [address] Aug, [facility] [address] [id number] [address] [place] [address], [place] [address] Aug, [facility] [address] [id number] [address] [place] [address], [place] [address] Jul, [facility] [address] [id number] [address] [place] [address], [place] [address] Jul, [facility] [address] [id number] [address] [place] [address], [place] [address] Jul, [facility] [address] [id number] [address] [place] [address], [place] [address] Jul, [facility] [address] [id number] [address] [place] [address] [address] Jul, [facility] [address] [id number] [address] [place] [address], [place] [address] Jul, [facility] [address] [id number] [address] [place] [address], [place] [address] Jul, [facility] [address] [id number] [address] [place] [address], [place] [address] Jul, [facility] [address] [id number] [address] [place] [address], [place] [address] Jun, [facility] [address] [id number] [address] [place] [address], [place] [address] 27 Jun, 2014 [facility] [address] [id number] [address] [place] [address], [place] [address] Jun, [facility] [address] [id number] [address] [place] [address], [place] [address] 20 Jun, 2014 [facility] [address] [id number] [address] [place] [address], [place] [address] 16 Jun, 2014 [facility] [address] [id number] [address] [place] [address], [place] [address] 15 Jun, 2014 [facility] [address] [id number] [address] [place] [address], [place] [address] 15 Jun, 2014 [facility] [address] [id number] [address] [place] [address] 14 Jun, 2014 [facility] [address] [id number] [address] [place] [address] 14 Jun, 2014 [facility] [address] [id number] [address] [place] [address], [place] [address] 11 Jun, 2014 [facility] [address] [id number] [address] [place] [address], [place] [address] 11 Jun, 2014 [facility] [address] [id number] [address] [place] [address], [place] [address] 24 May, 2014 [facility] [address] [id number] [facility] [place] [address] 24 May, 2014 [facility] [address] [id number] [address] [place] [address], [place] [address] 08 May, 2014 [facility] [address] [id number] [address] [place] [address], [place] [address] May, [facility] [address] [id number] [address] [place] [address], [place] [address] May, [facility] [address] [id number] [address] [place] [address], [place] [address] Apr, [facility] [address] [id number] [address] [place] [address], [place] [address] Apr, [facility] [address] [id number] [address] [place] [address], [place] [address] Apr, [facility] [address] [id number] [address] [place] [address], [place] [address] Apr, [facility] [address] [id number] [address] [place] [address], [place] [address] Apr, [facility] [address] [id number] [address] [place] [address], [place] [address] Apr, [facility] [address] [id number] [address] [place] [address], [place] [address] Mar, [facility] [address] [id number] [address] [place] [address], [place] [address] Mar, [facility] [address] [id number] [address] [place] [address], [place] [address] Mar, [facility] [address] [id number] [address] [place] [address], [place] [address] Mar, [facility] [address] [id number] [address] [place] [address], [place] [address] Mar, [facility] [address] [id number] [address] [place] [address], [place] [address] Mar, [facility] [address] [id number] [address] [place] [address], [place] [address] Feb, [facility] [address] [id number] [address] [place] [address], [place] [address] Feb, [facility] [address] [id number] [address] [place] [address], [place] [address] Feb, [facility] [address] [id number] [address] [place] [address], [place] [address] Feb, [facility] [address] [id number] [address] [place] [address], [place] [address] Feb, [facility] [address] [id number] [address] [place] [address], [place] [address] Feb, [facility] [address] [id number] [address] [place] [address], [place] [address] Feb, [facility] [address] [id number] [address] [place] [address], [place] [address] Feb, [facility] [address] [id number] [address] [place] [address], [place] [address] January, [facility] [address] [id number] [address] [place] [address], [place] [address] January, [facility] [address] [id number] [address] [place] [address], [place] [address] January, [facility] [address] [id number] [address] [place] [address], [place] [address] January, [facility] [address] [id number] [address] [place] [address], [place] [address] January, [facility] [address] [id number] [address] [place] [address], [place] [address] January, [facility] [address] [id number] [address] [place] [address], [place] [address] January, [facility] [address] [id number] [address] [place] [address], [place] [address] January, [facility] [address] [id number] [facility] [place] [address] Dec, [facility] [address] [id number] [address] [place] [address], [place] [address] Dec, [facility] [address] [id number] [address] [place] [address], [place] [address] Dec, [facility] [address] [id number] [address] [place] [address], [place] [address] Dec, [facility] [address] [id number] [address] [place] [address], [place] [address] Dec, [facility] [address] [id number] [address] [place] [address], [place] [address] Dec, [facility] [address] [id number] [address] [place] [address], [place] [address] Nov, [facility] [address] [id number] [address] [place] [address], [place] [address] Nov, [facility] [address] [id number] [address] [place] [address], [place] [address] Nov, [facility] [address] [id number] [address] [place] [address], [place] [address] Nov, [facility] [address] [id number] [address] [place] [address], [place] [address] Nov, [facility] [address] [id number] [address] [place] [address], [place] [address] Nov, [facility] [address] [id number] [address] [place] [address], [place] [address] Nov, [facility] [address] [id number] [address] [place] [address], [place] [address] Nov, [facility] [address] [id number] [address] [place] [address], [place] [address] Oct, [facility] [address] [id number] [address] [place] [address], [place] [address] Oct, [facility] [address] [id number] [address] [place] [address], [place] [address] Sep, [facility] [address] [id number] [address] [place] [address], [place] [address] Sep, [facility] [address] [id number] [address] [place] [address], [place] [address] Sep, [facility] [address] [id number] [address] [place] [address], [place] [address] Sep, [facility] [address] [id number] [address] [place] [address], [place] [address] Aug, [facility] [address] [id number] [address] [place] [address], [place] [address] Aug, [facility] [address] [id number] [address] [place] [address], [place] [address] Aug, [facility] [address] [id number] [address] [place] [address], [place] [address] Aug, [facility] [address] [id number] [address] [place] [address], [place] [address] Jul, [facility] [address] [id number] [address] [place] [address], [place] [address] Jul, [facility] [address] [id number] [address] [place] [address], [place] [address] Jul, [facility] [address] [id number] [address] [place] [address], [place] [address] Jul, [facility] [address] [id number] [address] [place] [address], [place] [address] Jul, [facility] [address] [id number] [address] [place] [address], [place] [address] Jul, [facility] [address] [id number] [address] [place] [address], [place] [address] Jul, [facility] [address] [id number] [address] [place] [address], [place] [address] Jul, [facility] [address] [id number] [address] [place] [address], [place] [address] Jul, [facility] [address] [id number] [address] [place] [address], [place] [address] Jul, [facility] [address] [id number] [address] [place] [address], [place] [address] Jul, [facility] [address] [id number] [address] [place] [address], [place] [address] Jul, [facility] [address] [id number] [address] [place] [address], [place] [address] Jun, [facility] [address] [id number] [address] [place] [address], [place] [address] Jun, [facility] [address] [id number] [address] [place] [address] Jun, [facility] [address] [id number] [address] [place] [address], [place] [address] Jun, [facility] [address] [id number] [address] [place] [address] 16 Jun, 2013 [facility] [address] [id number] [address] [place] [address] 14 Jun, 2013 [facility] [address] [id number] [address] [place] [address] 14 Jun, 2013 [facility] [address] [id number] [address] [place] [address], [place] [address] 02 Jun, 2013 [facility] [address] [id number] [address] [place] [address] 15 May, 2013 [facility] [address] [id number] [address] [place] [address], [place] [address] 05 May, 2013 [facility] [address] [id number] [address] [place] [address], [place] [address] May, [facility] [address] [id number] [address] [place] [address], [place] [address] Apr, [facility] [address] [id number] [address] [place] [address], [place] [address] Apr, [facility] [address] [id number] [address] [place] [address], [place] [address] Mar, [facility] [address] [id number] [address] [place] [address], [place] [address] Mar, [facility] [address] [id number] [address] [place] [address], [place] [address] Feb, [facility] [address] [id number] [address] [place] [address], [place] [address] January, [facility] [address] [id number] [address] [place] [address], [place] [address] January, [facility] [address] [id number] [address] [place] [address], [place] [address] January, [facility] [address] [id number] [address] [place] [address], [place] [address] January, [facility] [address] [id number] [address] [place] [address], [place] [address] January, [facility] [address] [id number] [address] [place] [address], [place] [address] Dec, [facility] [address] [id number] [address] [place] [address], [place] [address] Dec, [facility] [address] [id number] [address] [place] [address], [place] [address] Dec, [facility] [address] [id number] [address] [place] [address], [place] [address] Nov, [facility] [address] [id number] [address] [place] [address], [place] [address] Oct, [facility] [address] [id number] [address] [place] [address], [place] [address] 18 Oct, 2012 [facility] [address] [id number] [address] [place] [address], [place] [address] 15 Oct, 2012 [facility] [address] [id number] [address] [place] [address], [place] [address] 18 Sep, 2012 [facility] [address] [id number] [address] [place] [address], [place] [address] 16 Sep, 2012 [facility] [address] [id number] [address] [place] [address], [place] [address] 14 Aug, 2012 [facility] [address] [id number] [address] [place] [address], [place] [address] Aug, [facility] [address] [id number] [address] [place] [address], [place] [address] Aug, [facility] [address] [id number] [address] [place] [address], [place] [address] Aug, [facility] [address] [id number] [address] [place] [address], [place] [address] Jul, [facility] [address] [id number] [address] [place] [address], [place] [address] Jul, [facility] [address] [id number] [address] [place] [address], [place] [address] Jul, [facility] [address] [id number] [address] [place] [address] Jul, [facility] [address] [id number] [address] [place] [address], [place] [address] Jul, [facility] [address] [id number] [address] [place] [address], [place] [address] 15 Jun, 2012 [facility] [address] [id number] [address] [place] [address], [place] [address] 15 Jun, 2012 [facility] [address] [id number] [address] [place] [address] 10 Jun, 2012 [facility] [address] [id number] [address] [place] [address], [place] [address] 10 Jun, 2012 [facility] [address] [id number] [address] [place] [address], [place] [address] May, [facility] [address] [id number] [address] [place] [address], [place] [address] Apr, [facility] [address] [id number] [address] [place] [address], [place] [address] Apr, [facility] [address] [id number] [address] [place] [address], [place] [address] Apr, [facility] [address] [id number] [address] [place] [address], [place] [address] Apr, [facility] [address] [id number] [address] [place] [address], [place] [address] January, [facility] [address] [id number] [address] [place] [address], [place] [address] January, [facility] [address] [id number] [address] [place] [address], [place] [address] Dec, [facility] [address] [id number] [address] [place] [address], [place] [address] Dec, [facility] [address] [id number] [address] [place] [address], [place] [address] Nov, [facility] [address] [id number] [address] [place] [address], [place] [address] Nov, [facility] [address] [id number] [address] [place] [address], [place] [address] Nov, [facility] [address] [id number] [address] [place] [address], [place] [address] Nov, [facility] [address] [id number] [address] [place] [address], [place] [address] Oct, [facility] [address] [id number] [address] [place] [address], [place] [address] Oct, [facility] [address] [id number] [address] [place] [address], [place] [address] Oct, [facility] [address] [id number] [address] [place] [address], [place] [address] Sep, [facility] [address] [id number] [address] [place] [address], [place] [address] Sep, [facility] [address] [id number] [address] [place] [address], [place] [address] Aug, [facility] [address] [id number] [address] [place] [address], [place] [address] Aug, [facility] [address] [id number] [address] [place] [address], [place] [address] Jul, [facility] [address] [id number] [address] [place] [address], [place] [address] Jul, [facility] [address] [id number] [address] [place] [address], [place] [address] Jul, [facility] [address] [id number] [address] [place] [address], [place] [address] Jun, [facility] [address] [id number] [address] [place] [address], [place] [address] Jun, [facility] [address] [id number] [address] [place] [address], [place] [address] Jun, [facility] [address] [id number] [address] [place] [address], [place] [address] Jun, [facility] [address] [id number] [address] [place] [address], [place] [address] Jun, [facility] [address] [id number] [address] [place] [address], [place] [address] Jun, [facility] [address] [id number] [address] [place] [address] [address] 29 Aug, 2010 [facility] [address] [id number] [address] [place] [address], [place] [address] 12 Aug, 2010 [facility] [address] [id number] [address] [place] [address], [place] [address] 08 Aug, 2010 [facility] [address] [id number] [address] [place] [address], [place] [address] 29 Jul, 2010 [facility] [address] [id number] [address] [place] [address], [place] [address] Jul, [facility] [address] [id number] [address] [place] [address], [place] [address] Jul, [facility] [address] [id number] [address] [place] [address], [place] [address] Jul, [facility] [address] [id number] [address] [place] [address], [place] [address] Jul, [facility] [address] [id number] [address] [place] [address], [place] [address] Jul, [facility] [address] [id number] [address] [place] [address], [place] [address] Jun, [facility] [address] [id number] [address] [place] [address] Apr, [facility] [address] [id number] [address] [place] [address] Feb, [facility] [address] [id number] [address] [place] [address] 10 Oct, 2009 [facility] [address] [id number] [address] [place] [address], [place] [address] Sep, [facility] [address] [id number] [address] [place] [address] Aug, [facility] [address] [id number] [address] [place] [address] Aug, [facility] [address] [id number] [address] [place] [address] Aug, [facility] [address] [facility] [id number] [address] [place] [address] Jul, [facility] [address] [facility] [id number] [address] [place] [address] Jun, IMMUNIZATIONS No Known Immunizations SOCIAL HISTORY Never Assessed REASON FOR VISIT PLAN OF CARE VITAL SIGNS Height 65 in 2014-10-07 Weight 176.01 lbs 2014-10-07 Heart Rate 86 bpm 2014-10-07 Respiratory Rate 18 2014-10-07 Blood pressure systolic 128 mmHg 2014-10-07 Blood pressure diastolic 78 mmHg 2014-10-07 MEDICATIONS Unknown Medications RESULTS No Results PROCEDURES Procedure Date Ordered Result Body Site HT MUSCLE IMAGE SPECT MULT Oct 07, 2014 TTE W/DOPPLER, COMPLETE Oct 07, 2014 MEASURE BLOOD OXYGEN LEVEL Oct 07, 2014 CHORIONIC GONADOTROPIN ASSAY Oct 07, 2014 INSTRUCTIONS MEDICATIONS ADMINISTERED No Known [...]
--- OUTSIDE RECORDS SUMMARY | 2020-02-22 17:22 | XMS REPORT ---
Author Author Marion CORREA Organization [facility] Address [address] [place] [address] Care Team Providers Care Quantity Surveyor Name Role Phone SHABNAM CORREA Unavailable PROBLEMS Type Condition ICD9-CM Code NNT85-[place] Code Onset Dates Condition S tatus SNOMED Code Problem Migraine without aura and without status migrain osus, not intractable G43.009 Active 289048401 Problem Acquired hypothyroidism E03.9 Active 188071176 Problem Cervical disc disease M50.90 Active 685011547 Problem Dyspepsia R10.13 Active 852195436 ALLERGIES No Information ENCOUNTERS Encounter Location Date Diagnosis [facility] [address] [facility] [id number] [address] [place] [phone] Apr, [facility] [address] [id number] [address] [place] [phone] Apr, [facility] [address] [id number] [address] [place] [address] Apr, Cervical disc disease M50.90 [facility] [address] [id number] [address] [place] [phone] Mar, [facility] [address] [facility] [id number] [address] [place] [address] Mar, Cervical disc disease M50.90 [facility] [address] [facility] [id number] [address] [place] [address] Feb, [address] [address] Feb, Cervical disc disease M50.[address] [address] January, [facility] [address] [facility] [id number] [address] [place] [address] January, Cervical disc disease M50.90 [facility] [address] [id number] [address] [place] [address] January, Cervical disc disease M50.90 [facility] [address] [id number] [address] [place] [address] Dec, Cervical disc disease M50.90 [facility] [address] [facility] [id number] [address] [place] [address] Dec, Cervical disc disease M50.90 [facility] [address] [facility] [id number] [address] [place] [address] Dec, Cervical disc disease M50.90 [facility] [address] [facility] [id number] [address] [place] [address] Dec, Cervical disc disease M50.90 ; Acquired hypothyroidism E03.9 and Migraine without aura and without status migrainosus, not intractable G43.009 [facility] [address] [facility] [id number] [address] [place] [address] Nov, [facility] [address] [facility] [id number] [address] [place] [address] Nov, Cervical disc disease M50.90 [facility] [address] [facility] [id number] [address] [place] [address] Oct, Cervical disc disease M50.90 [facility] [address] [id number] [address] [place] [address] Sep, [facility] [address] [facility] [id number] [address] [place] [address] Sep, Cervical disc disease M50.90 [facility] [address] [id number] [address] [place] [address] Aug, Cervical disc disease M50.90 [facility] [address] [facility] [id number] [address] [place] [address] Jul, Cervical disc disease M50.90 [facility] [address] [id number] [address] [place] [address] Jun, Acute recurrent pansinusitis J01.41 and Cervical disc disease M50.90 [facility] [address] [id number] [address] [place] [address] Jun, Cervical disc disease M50.90 [facility] [address] [id number] [address] [place] [address] May, Cervical disc disease M50.90 [facility] [address] [id number] [address] [place] [address] Apr, Cervical disc disease M50.90 [facility] [address] [id number] [address] [place] [address] Mar, Cervical disc disease M50.90 [facility] [address] [id number] [address] [place] [address] Mar, [facility] [address] [id number] [address] [place] [address] Mar, Cervical disc disease M50.90 [facility] [address] [id number] [address] [place] [address] Feb, Cervical disc disease M50.90 [facility] [address] [id number] [address] [place] [address] January, Cervical disc disease M50.90 [facility] [address] [id number] [address] [place] [address] Dec, [facility] [address] [id number] [address] [place] [address] Dec, Cervical disc disease M50.90 [facility] [address] [id number] [address] [place] [address] Nov, Cervical disc disease M50.90 [facility] [address] [id number] [address] [place] [address] Nov, Cervical disc disease M50.90 [facility] [address] [facility] [id number] [address] [place] [id number] 15 Oct, 2017 Cervical disc disease M50.90 [facility] [address] [facility] [id number] [address] [place] [address] Oct, Cervical disc disease M50.90 and Acute non-recurrent maxillary sinusitis J01.00 [facility] [address] [facility] [id number] [address] [place] [address] Sep, Cervical disc disease M50.90 [facility] [address] [facility] [id number] [address] [place] [address] Sep, [facility] [address] [place] [id number] [place] [address] Sep, Fatigue, unspecified type R5 3.83 and Cough R05 [place] [address] [place] [id number] [address] [place] [address] Aug, Cervical disc disease M50.90 [facility] [address] [place] [id number] [address] [place] [address] Aug, Sore throat J02.9 ; Canker s ore K12.0 and History of anemia Z86.2 [facility] [address] [place] [id number] [address] [place] [address] Jul, Cervical disc disease M50.90 [facility] [address] [place] [id number] [address] [place] [address] Jun, Cervical disc disease M50.90 [place] [address] [place] [id number] [address] [place] [address] Jun, Cervical disc disease M50.90 [place] [address] [place] [id number] [address] [place] [address] May, Cervical disc disease M50.90 [facility] [address] [place] [id number] [address] [place] [address] Apr, Cervical disc disease M50.90 [facility] [address] [id number] [address] [place] [address] Apr, [facility] [address] [facility] [id number] [address] [place] [address] Feb, Cervical disc disease M50.90 [facility] [address] [facility] [id number] [address] [place] [address] January, Cervical disc disease M50.90 [facility] [address] [id number] [address] [place] [address] Nov, [facility] [address] [facility] [id number] [address] [place] [address] Nov, Cervical disc disease M50.90 [facility] [address] [facility] [id number] [address] [place] [address] Nov, Acute cystitis with hematuri a N30.01 and Dysuria R30.0 [facility] [address] [facility] [id number] [address] [place] [address] Oct, Cervical disc disease M50.90 and Acute non-recurrent frontal sinusitis J01.10 [facility] [address] [facility] [id number] [address] [place] [address] Sep, Neck pain M54.2 [facility] [address] [facility] [id number] [address] [place] [id number] Sep, [facility] [address] [facility] [id number] [address] [place] [address] Aug, Cervical disc disease M50.90 [facility] [address] [id number] [address] [place] [address] Jul, [facility] [address] [facility] [id number] [address] [place] [address] Jun, [facility] [address] [facility] [id number] [address] [place] [address] May, [facility] [address] [id number] [address] [place] [address] May, Screening for diabetes blanchei tus Z13.1 ; Chronic fatigue R53.82 and Edema, unspecified type R60.9 [facility] [address] [id number] [address] [place] [address] Apr, Neck pain M54.2 [facility] [address] [id number] [address] [place] [address] Mar, [facility] [address] [id number] [address] [place] [address] Mar, Neck pain M54.2 [facility] [address] [id number] [address] [place] [id number] Feb, Cervical disc disease M50.90 [facility] [address] [id number] [address] [place] [address] Feb, Cervical disc disease M50.90 [facility] [address] [id number] [address] [place] [address] January, [facility] [address] [id number] [address] [place] [address] January, [facility] [address] [id number] [address] [place] [address] January, Cervical disc disease M50.90 [facility] [address] [id number] [address] [place] [address] January, [facility] [address] [id number] [address] [place] [address] January, [facility] [address] [id number] [address] [place] [address] Dec, Cervical disc disease M50.90 [facility] [address] [id number] [address] [place] [address] Nov, Cervical disc disease M50.90 [facility] [address] [id number] [address] [place] [address] Oct, Cervical disc disease M50.90 [facility] [address] [id number] [address] [place] [address] Sep, Cervical disc disease M50.90 [facility] [address] [id number] [address] [place] [id number] Aug, Dental caries K02.9 and Enco unter for dental examination Z01.20 [facility] [address] [id number] [address] [place] [address] Aug, [facility] [address] [id number] [address] [place] [address] Aug, [facility] [address] [id number] [address] [place] [id number] Aug, Encounter for dental examina tion Z01.20 [facility] [address] [id number] [address] [place] [address] Jul, [facility] [address] [id number] [address] [place] [id number] Jun, Sinusitis J32.9 and Cervical disc disease M50.90 [facility] [address] [id number] [address] [place] [address] Jun, [facility] [address] [id number] [address] [place] [address] 24 May, 2015 [facility] [address] [id number] [address] [place] [id number] 23 May, 2015 [facility] [address] [id number] [address] [place] [id number] 22 May, 2015 [facility] [address] [id number] [address] [place] [id number] May, [facility] [address] [id number] [address] [place] [address] Apr, Cervical spondylosis without myelopathy 721.0 [facility] [address] [id number] [address] [place] [address] Mar, [facility] [address] [id number] [address] [place] [address] January, Cervical spondylosis without myelopathy 721.0 [facility] [address] [id number] [address] [place] [id number] Dec, [facility] [address] [id number] [address] [place] [address] Dec, [facility] [address] [id number] [address] [place] [address] Dec, [facility] [address] [id number] [address] [place] [address] Nov, [facility] [address] [id number] [address] [place] [address] Nov, [facility] [address] [id number] [address] [place] [phone] Oct, [facility] [address] [id number] [address] [place] [id number] Oct, [facility] [address] [id number] [address] [place] [phone] Oct, [facility] [address] [id number] [address] [place] [phone] Oct, [facility] [address] [id number] [address] [place] [phone] Oct, [facility] [address] [id number] [address] [place] [address] Oct, [facility] [address] [id number] [address] [place] [phone] Oct, [facility] [address] [id number] [address] [place] [address] Oct, [facility] [address] [id number] [address] [place] [address], [place] [id number] Oct, [facility] [address] [id number] [address] [place] [address], [place] [address] Oct, [facility] [address] [id number] [address] [place] [address], [place] [id number] Sep, [facility] [address] [id number] [address] [place] [address], [place] [address] Sep, [facility] [address] [id number] [address] [place] [address], [place] [id number] Sep, [facility] [address] [id number] [address] [place] [address], [place] [address] Sep, [facility] [address] [id number] [address] [place] [address], [place] [address] Sep, [facility] [address] [id number] [address] [place] [address], [place] [address] Sep, [facility] [address] [id number] [address] [place] [address], [place] [address] Sep, [facility] [address] [id number] [address] [place] [address], [place] [address] Sep, [facility] [address] [id number] [address] [place] [address], [place] [address] Sep, [facility] [address] [id number] [address] [place] [address], [place] [id number] Aug, [facility] [address] [id number] [address] [place] [address], [place] [address] Aug, [facility] [address] [id number] [address] [place] [address], [place] [address] Aug, [facility] [address] [id number] [address] [place] [address], [place] [address] Aug, [facility] [address] [id number] [address] [place] [address], [place] [address] Jul, [facility] [address] [id number] [address] [place] [address], [place] [address] Jul, [facility] [address] [id number] [address] [place] [address], [place] [address] Jul, [facility] [address] [id number] [address] [place] [address], [place] [address] Jul, [facility] [address] [id number] [address] [place] [address], [place] [address] Jul, [facility] [address] [id number] [address] [place] [address], [place] [address] Jul, [facility] [address] [id number] [address] [place] [address], [place] [id number] Jul, [facility] [address] [id number] [address] [place] [address], [place] [id number] Jul, [facility] [address] [id number] [address] [place] [address], [place] [address] Jun, [facility] [address] [id number] [address] [place] [address], [place] [id number] 27 Jun, 2014 [facility] [address] [id number] [address] [place] [address], [place] [address] Jun, [facility] [address] [id number] [address] [place] [address], [place] [id number] 20 Jun, 2014 [facility] [address] [id number] [address] [place] [address], [place] [address] 16 Jun, 2014 [facility] [address] [id number] [address] [place] [address], [place] [id number] 15 Jun, 2014 [facility] [address] [id number] [address] [place] [address], [place] [id number] 15 Jun, 2014 [facility] [address] [id number] [address] [place] [address], [place] [address] 14 Jun, 2014 [facility] [address] [id number] [address] [place] [address] [place] [id number] 14 Jun, 2014 [facility] [address] [id number] [address] [place] [address], [place] [address] Jun, [facility] [address] [id number] [address] [place] [address], [place] [address] Jun, [facility] [address] [id number] [address] [place] [address], [place] [address] May, [facility] [address] [id number] [address] [place] [address], [place] [id number] May, [facility] [address] [id number] [address] [place] [address], [place] [address] May, [facility] [address] [id number] [address] [place] [address], [place] [id number] May, [facility] [address] [id number] [address] [place] [address], [place] [address] May, [facility] [address] [id number] [address] [place] [address], [place] [id number] Apr, [facility] [address] [id number] [address] [place] [address], [place] [id number] Apr, [facility] [address] [id number] [address] [place] [address], [place] [address] Apr, [facility] [address] [id number] [address] [place] [address], [place] [address] Apr, [facility] [address] [id number] [address] [place] [address], [place] [id number] Apr, [facility] [address] [id number] [address] [place] [address], [place] [address] Apr, [facility] [address] [id number] [address] [place] [address], [place] [address] Mar, [facility] [address] [id number] [address] [place] [address], [place] [id number] Mar, [facility] [address] [id number] [facility] [place] [id number] 15 Mar, 2014 [facility] [address] [id number] [address] [place] [address], [place] [address] Mar, [facility] [address] [id number] [address] [place] [address], [place] [address] Mar, [facility] [address] [id number] [address] [place] [address], [place] [address] Mar, [facility] [address] [id number] [address] [place] [address], [place] [id number] Feb, [facility] [address] [id number] [address] [place] [address], [place] [id number] Feb, [facility] [address] [id number] [address] [place] [address], [place] [id number] Feb, [facility] [address] [id number] [address] [place] [address], [place] [id number] Feb, [facility] [address] [id number] [address] [place] [address], [place] [id number] Feb, [facility] [address] [id number] [address] [place] [address], [place] [id number] Feb, [facility] [address] [id number] [address] [place] [address], [place] [id number] Feb, [facility] [address] [id number] [address] [place] [address], [place] [address] Feb, [facility] [address] [id number] [address] [place] [address], [place] [address] January, [facility] [address] [id number] [address] [place] [address], [place] [id number] January, [facility] [address] [id number] [address] [place] [address], [place] [address] January, [facility] [address] [id number] [address] [place] [address], [place] [id number] January, [facility] [address] [id number] [facility] [place] [address] January, [facility] [address] [id number] [address] [place] [address], [place] [id number] January, [facility] [address] [id number] [address] [place] [address], [place] [address] January, [facility] [address] [id number] [address] [place] [address], [place] [address] January, [facility] [address] [id number] [address] [place] [address], [place] [address] Dec, [facility] [address] [id number] [address] [place] [address], [place] [id number] Dec, [facility] [address] [id number] [address] [place] [address], [place] [id number] Dec, [facility] [address] [id number] [address] [place] [address], [place] [address] Dec, [facility] [address] [id number] [address] [place] [address], [place] [address] Dec, [facility] [address] [id number] [address] [place] [address], [place] [id number] Dec, [facility] [address] [id number] [address] [place] [address], [place] [id number] Nov, [facility] [address] [id number] [address] [place] [address], [place] [address] Nov, [facility] [address] [id number] [address] [place] [address], [place] [id number] Nov, [facility] [address] [id number] [address] [place] [address], [place] [id number] Nov, [facility] [place] [facility] [address] [id number] [address] [place] [address], [place] [id number] Nov, [facility] [place] [facility] [address] [id number] [address] [place] [address] Nov, [facility] [address] [id number] [address] [place] [address], [place] [id number] Nov, [facility] [address] [id number] [address] [place] [address], [place] [address] Nov, [facility] [address] [id number] [address] [place] [address], [place] [address] Oct, [facility] [address] [id number] [address] [place] [address], [place] [id number] Oct, [facility] [address] [id number] [address] [place] [address], [place] [id number] Sep, [facility] [address] [id number] [address] [place] [address], [place] [address] Sep, [facility] [address] [id number] [address] [place] [address], [place] [address] Sep, [facility] [address] [id number] [address] [place] [address], [place] [id number] Sep, [facility] [address] [id number] [address] [place] [address], [place] [address] Aug, [facility] [address] [id number] [address] [place] [address], [place] [id number] Aug, [facility] [address] [id number] [address] [place] [address], [place] [address] Aug, [facility] [address] [id number] [address] [place] [address], [place] [address] Aug, [facility] [address] [id number] [address] [place] [address], [place] [address] Jul, [facility] [address] [id number] [address] [place] [address], [place] [address] Jul, [facility] [address] [id number] [address] [place] [address], [place] [address] Jul, [facility] [address] [id number] [address] [place] [address], [place] [address] Jul, [facility] [address] [id number] [address] [place] [address], [place] [address] Jul, [facility] [address] [id number] [address] [place] [address], [place] [id number] Jul, [facility] [place] [facility] [address] [id number] [address] [place] [address], [place] [address] Jul, [facility] [address] [id number] [address] [place] [address], [place] [address] Jul, [facility] [address] [id number] [address] [place] [address], [place] [address] Jul, [facility] [address] [id number] [address] [place] [address], [place] [address] Jul, [facility] [address] [id number] [address] [place] [id number] Jul, [facility] [address] [id number] [address] [place] [address], [place] [address] Jul, [facility] [address] [id number] [address] [place] [id number] Jun, [facility] [address] [id number] [address] [place] [id number] Jun, [facility] [address] [id number] [address] [place] [id number] Jun, [facility] [address] [id number] [address] [place] [id number] Jun, [facility] [address] [id number] [address] [place] [id number] 16 Jun, 2013 [facility] [place] [facility] [address] [id number] [address] [place] [id number] 14 Jun, 2013 [facility] [address] [id number] [address] [place] [id number] Jun, [facility] [address] [id number] [address] [place] [address], [place] [address] Jun, [facility] [address] [id number] [address] [place] [address], [place] [address] May, [facility] [address] [id number] [address] [place] [address], [place] [address] May, [facility] [address] [id number] [address] [place] [address], [place] [id number] May, [facility] [address] [id number] [address] [place] [address], [place] [id number] Apr, [facility] [address] [id number] [address] [place] [address], [place] [address] Apr, [facility] [address] [id number] [address] [place] [address], [place] [address] Mar, [facility] [address] [id number] [address] [place] [address], [place] [address] Mar, [facility] [address] [id number] [address] [place] [address], [place] [id number] Feb, [facility] [address] [id number] [address] [place] [address], [place] [address] January, [facility] [address] [id number] [address] [place] [address], [place] [address] January, [facility] [address] [id number] [address] [place] [address], [place] [address] January, [facility] [address] [id number] [address] [place] [address], [place] [id number] January, [facility] [address] [id number] [address] [place] [address], [place] [address] January, [facility] [address] [id number] [address] [place] [address], [place] [address] Dec, [facility] [place] [facility] [address] [id number] [address] [place] [address], [place] [id number] 17 Dec, 2012 [facility] [address] [id number] [address] [place] [address], [place] [id number] 02 Dec, 2012 [facility] [address] [id number] [address] [place] [address], [place] [id number] Nov, [facility] [address] [id number] [address] [place] [address], [place] [id number] 27 Oct, 2012 [facility] [address] [id number] [address] [place] [address], [place] [id number] 18 Oct, 2012 [facility] [address] [id number] [address] [place] [address], [place] [address] 15 Oct, 2012 [facility] [address] [id number] [address] [place] [address], [place] [address] 18 Sep, 2012 [facility] [address] [id number] [address] [place] [address], [place] [id number] 16 Sep, 2012 [facility] [address] [id number] [address] [place] [address], [place] [id number] 14 Aug, 2012 [facility] [address] [id number] [address] [place] [address], [place] [address] 14 Aug, 2012 [facility] [address] [id number] [address] [place] [address], [place] [id number] 11 Aug, 2012 [facility] [address] [id number] [address] [place] [address], [place] [address] Aug, [facility] [address] [id number] [address] [place] [address], [place] [id number] Jul, [facility] [address] [id number] [address] [place] [address], [place] [address] Jul, [facility] [address] [id number] [address] [place] [address], [place] [id number] Jul, [facility] [address] [id number] [address] [place] [address], [place] [address] Jul, [facility] [place] [facility] [address] [id number] [address] [place] [address], [place] [address] Jul, [facility] [place] [facility] [address] [id number] [address] [place] [address], [place] [id number] 15 Jun, 2012 [facility] [place] [facility] [address] [id number] [address] [place] [address], [place] [id number] 15 Jun, 2012 [facility] [place] [facility] [address] [id number] [address] [place] [address], [place] [address] Jun, [facility] [address] [id number] [address] [place] [address], [place] [address] Jun, [facility] [address] [id number] [address] [place] [address], [place] [address] May, [facility] [address] [id number] [address] [place] [address], [place] [address] Apr, [facility] [place] [facility] [address] [id number] [address] [place] [address], [place] [address] Apr, [facility] [address] [id number] [address] [place] [address], [place] [address] Apr, [facility] [place] [facility] [address] [id number] [address] [place] [address], [place] [address] Apr, [facility] [place] [facility] [address] [id number] [address] [place] [address], [place] [address] January, [facility] [place] [facility] [address] [id number] [address] [place] [address], [place] [address] January, [facility] [place] [facility] [address] [id number] [address] [place] [address], [place] [address] Dec, [facility] [place] [facility] [address] [id number] [address] [place] [address], [place] [address] Dec, [facility] [place] [facility] [address] [id number] [address] [place] [address], [place] [address] Nov, [facility] [place] [facility] [address] [id number] [address] [place] [address], [place] [id number] Nov, [facility] [address] [id number] [address] [place] [address], [place] [address] Nov, [facility] [address] [id number] [address] [place] [address], [place] [address] Nov, [facility] [address] [id number] [address] [place] [address], [place] [address] Oct, [facility] [address] [id number] [address] [place] [address], [place] [address] Oct, [facility] [address] [id number] [address] [place] [address], [place] [address] Oct, [facility] [address] [id number] [address] [place] [address], [place] [address] Sep, [facility] [address] [id number] [address] [place] [address], [place] [address] Sep, [facility] [address] [id number] [address] [place] [address], [place] [id number] Aug, [facility] [address] [id number] [address] [place] [address], [place] [address] Aug, [facility] [address] [id number] [address] [place] [address], [place] [address] Jul, [facility] [address] [id number] [address] [place] [address], [place] [id number] Jul, [facility] [address] [id number] [address] [place] [address], [place] [id number] Jul, [facility] [address] [id number] [address] [place] [address], [place] [address] Jun, [facility] [address] [id number] [address] [place] [address], [place] [address] Jun, [facility] [address] [id number] [address] [place] [address], [place] [address] Jun, [facility] [address] [id number] [address] [place] [address], [place] [address] Jun, [facility] [place] [facility] [address] [id number] [address] [place] [address], [place] [address] Jun, [facility] [address] [id number] [address] [place] [address], [place] [id number] Jun, [facility] [address] [id number] [address] [place] [address], [place] [address] Aug, [facility] [address] [id number] [address] [place] [address], [place] [address] Aug, [facility] [address] [id number] [address] [place] [address], [place] [id number] Aug, [facility] [address] [id number] [address] [place] [address], [place] [id number] Jul, [facility] [address] [id number] [address] [place] [address], [place] [id number] Jul, [facility] [address] [id number] [address] [place] [address], [place] [id number] Jul, [facility] [address] [id number] [address] [place] [address], [place] [id number] Jul, [facility] [place] [facility] [address] [id number] [address] [place] [address], [place] [id number] Jul, [facility] [place] [facility] [address] [id number] [address] [place] [address], [place] [id number] Jul, [facility] [place] [facility] [address] [id number] [address] [place] [address], [place] [id number] Jun, [facility] [place] [facility] [address] [id number] [address] [place] [address], [place] [id number] Apr, [facility] [place] [facility] [address] [id number] [address] [place] [address], [place] [id number] Feb, [facility] [place] [facility] [address] [id number] [address] [place] [id number] 10 Oct, 2009 [facility] [address] [facility] [id number] [address] [place] [id number] Sep, [facility] [address] [facility] [id number] [address] [place] [id number] Aug, [facility] [address] [facility] [id number] [address] [place] [id number] Aug, [facility] [address] [facility] [id number] [address] [place] [id number] Aug, [facility] [address] [facility] [id number] [address] [place] [id number] Jul, [facility] [address] [facility] [id number] [address] [place] [id number] Jun, IMMUNIZATIONS No Known Immunizations SOCIAL HISTORY Never Assessed REASON FOR VISIT PLAN OF CARE VITAL SIGNS Height 65 in 2014-07-06 Weight 173.9 lbs 2014-07-06 Heart Rate 80 bpm 2014-07-06 Respiratory Rate 18 2014-07-06 Blood pressure systolic 156 mmHg 2014-07-06 Blood pressure diastolic 84 mmHg 2014-07-06 MEDICATIONS Unknown Medications RESULTS No Results PROCEDURES [...]
--- OUTSIDE RECORDS SUMMARY | 2020-02-22 17:23 | XMS REPORT ---
Author Author Marion CORREA Organization [facility] Address [address] [place] [address] Care Team Providers Care Building Performance Specialist Name Role Phone SHABNAM CORREA Unavailable PROBLEMS Type Condition ICD9-CM Code ALZ25-OX Code Onset Dates Condition S tatus SNOMED Code Problem Migraine without aura and without status migrain osus, not intractable G43.009 Active 368590809 Problem Acquired hypothyroidism E03.9 Active 280991316 Problem Cervical disc disease M50.90 Active 417408146 Problem Dyspepsia R10.13 Active 142335755 ALLERGIES No Information ENCOUNTERS Encounter Location Date Diagnosis [facility] [address] [facility] [id number] [address] [place] [address] Mar, Cervical disc disease M50.90 [facility] [address] [facility] [id number] [address] [place] [address] Feb, [facility] [address] [place] [address] Feb, Cervical disc disease M50.[address] [address] January, [facility] [address] [facility] [id number] [address] [place] [address] January, Cervical disc disease M50.90 [facility] [address] [id number] [address] [place] [address] January, Cervical disc disease M50.90 [facility] [address] [id number] [address] [place] [address] Dec, Cervical disc disease M50.90 [facility] [address] [id number] [address] [place] [address] Dec, Cervical disc disease M50.90 [place] [id number] [facility] [id number] [address] [place] [address] Dec, Cervical disc disease M50.90 [facility] [address] [facility] [id number] [address] [place] [address] Dec, Cervical disc disease M50.90 ; Acquired hypothyroidism E03.9 and Migraine without aura and without status migrainosus, not intractable G43.009 [facility] [address] [facility] [id number] [address] [place] [address] Nov, [facility] [address] [facility] [id number] [address] [place] [address] Nov, Cervical disc disease M50.90 [facility] [address] [facility] [id number] [address] [place] [address] Oct, Cervical disc disease M50.90 [facility] [address] [place] [id number] [address] [place] [address] Sep, [facility] [address] [facility] [id number] [address] [place] [address] Sep, Cervical disc disease M50.90 [facility] [address] [place] [id number] [address] [place] [address] Aug, Cervical disc disease M50.90 [facility] [address] [place] [id number] [address] [place] [address] Jul, Cervical disc disease M50.90 [facility] [address] [facility] [id number] [address] [place] [address] Jun, Acute recurrent pansinusitis J01.41 and Cervical disc disease M50.90 [facility] [address] [facility] [id number] [address] [place] [address] Jun, Cervical disc disease M50.90 [facility] [address] [facility] [id number] [address] [place] [address] May, Cervical disc disease M50.90 [facility] [address] [id number] [address] [place] [address] Apr, Cervical disc disease M50.90 [facility] [address] [id number] [address] [place] [address] Mar, Cervical disc disease M50.90 [facility] [address] [id number] [address] [place] [address] Mar, [facility] [address] [id number] [address] [place] [address] Mar, Cervical disc disease M50.90 [facility] [address] [id number] [address] [place] [address] Feb, Cervical disc disease M50.90 [facility] [address] [id number] [address] [place] [address] January, Cervical disc disease M50.90 [facility] [address] [id number] [address] [place] [address] Dec, [facility] [address] [id number] [address] [place] [address] Dec, Cervical disc disease M50.90 [facility] [address] [id number] [address] [place] [address] Nov, Cervical disc disease M50.90 [facility] [address] [id number] [address] [place] [address] Nov, Cervical disc disease M50.90 [facility] [address] [id number] [address] [place] [address] Oct, Cervical disc disease M50.90 [facility] [address] [id number] [address] [place] [address] Oct, Cervical disc disease M50.90 and Acute non-recurrent maxillary sinusitis J01.00 [facility] [address] [id number] [address] [place] [address] Sep, Cervical disc disease M50.90 [facility] [address] [facility] [facility] [id number] [address] [place] [address] Sep, [facility] [address] [facility] [facility] [id number] [address] [place] [address] Sep, Fatigue, unspecified type R5 3.83 and Cough R05 [facility] [address] [facility] [facility] [id number] [address] [place] [address] Aug, Cervical disc disease M50.90 [facility] [address] [facility] [facility] [id number] [address] [place] [address] Aug, Sore throat J02.9 ; Canker s ore K12.0 and History of anemia Z86.2 [facility] [address] [facility] [id number] [address] [place] [address] Jul, Cervical disc disease M50.90 [facility] [address] [facility] [id number] [address] [place] [address] Jun, Cervical disc disease M50.90 [facility] [address] [facility] [id number] [address] [place] [address] Jun, Cervical disc disease M50.90 [facility] [address] [facility] [id number] [address] [place] [address] May, Cervical disc disease M50.90 [facility] [address] [facility] [id number] [address] [place] [address] Apr, Cervical disc disease M50.90 [facility] [address] [facility] [id number] [address] [place] [address] Apr, [facility] [address] [facility] [id number] [address] [place] [address] Feb, Cervical disc disease M50.90 [facility] [address] [facility] [facility] [id number] [address] [place] [address] January, Cervical disc disease M50.90 [facility] [address] [facility] [id number] [address] [place] [address] Nov, [facility] [address] [id number] [address] [place] [address] Nov, Cervical disc disease M50.90 [facility] [address] [id number] [address] [place] [address] Nov, Acute cystitis with hematuri a N30.01 and Dysuria R30.0 [facility] [address] [id number] [address] [place] [address] Oct, Cervical disc disease M50.90 and Acute non-recurrent frontal sinusitis J01.10 [facility] [address] [id number] [address] [place] [address] Sep, Neck pain M54.2 [facility] [address] [facility] [facility] [id number] [address] [place] [address] Sep, [facility] [address] [facility] [facility] [id number] [address] [place] [address] Aug, Cervical disc disease M50.90 [facility] [address] [id number] [address] [place] [address] Jul, [facility] [address] [facility] [id number] [address] [place] [address] Jun, [facility] [address] [facility] [id number] [address] [place] [address] May, [facility] [address] [facility] [facility] [id number] [address] [place] [address] May, Screening for diabetes melli tus Z13.1 ; Chronic fatigue R53.82 and Edema, unspecified type R60.9 [facility] [address] [id number] [address] [place] [address] Apr, Neck pain M54.2 [facility] [address] [facility] [facility] [id number] [address] [place] [address] Mar, [facility] [address] [facility] [id number] [address] [place] [address] Mar, Neck pain M54.2 [facility] [address] [id number] [address] [place] [address] Feb, Cervical disc disease M50.90 [facility] [address] [id number] [address] [place] [address] Feb, Cervical disc disease M50.90 [facility] [address] [id number] [address] [place] [address] January, [facility] [address] [id number] [address] [place] [address] January, [facility] [address] [id number] [address] [place] [address] January, Cervical disc disease M50.90 [facility] [address] [id number] [address] [place] [address] January, [facility] [address] [id number] [address] [place] [address] January, [facility] [address] [id number] [address] [place] [address] Dec, Cervical disc disease M50.90 [facility] [address] [id number] [address] [place] [address] Nov, Cervical disc disease M50.90 [facility] [address] [id number] [address] [place] [address] Oct, Cervical disc disease M50.90 [facility] [address] [id number] [address] [place] [address] Sep, Cervical disc disease M50.90 [facility] [address] [id number] [address] [place] [id number] Aug, Dental caries K02.9 and Enco unter for dental examination Z01.20 [facility] [address] [id number] [address] [place] [address] Aug, [facility] [address] [id number] [address] [place] [address] Aug, [facility] [address] [id number] [address] [place] [id number] Aug, Encounter for dental examina tion Z01.20 [facility] [address] [id number] [address] [place] [address] Jul, [facility] [address] [id number] [address] [place] [address] Jun, Sinusitis J32.9 and Cervical disc disease M50.90 [facility] [address] [id number] [address] [place] [address] Jun, [facility] [address] [id number] [address] [place] [address] May, [facility] [address] [id number] [address] [place] [address] May, [facility] [address] [id number] [address] [place] [address] May, [facility] [address] [id number] [address] [place] [address] May, [facility] [address] [id number] [address] [place] [address] Apr, Cervical spondylosis without myelopathy 721.0 [facility] [address] [id number] [address] [place] [address] Mar, [facility] [address] [id number] [address] [place] [address] January, Cervical spondylosis without myelopathy 721.0 [facility] [address] [id number] [address] [place] [address] Dec, [facility] [address] [id number] [address] [place] [address] 14 Dec, 2014 [facility] [address] [id number] [address] [place] [address], [place] [address] Dec, [facility] [address] [id number] [address] [place] [address], [place] [address] Nov, [facility] [address] [id number] [address] [place] [address], [place] [address] Nov, [facility] [address] [id number] [address] [place] [address], [place] [address] Oct, [facility] [address] [id number] [address] [place] [address], [place] [address] Oct, [facility] [address] [id number] [address] [place] [address], [place] [address] Oct, [facility] [address] [id number] [address] [place] [address], [place] [address] Oct, [facility] [address] [id number] [address] [place] [address], [place] [address] Oct, [facility] [address] [id number] [address] [place] [address], [place] [address] Oct, [facility] [address] [id number] [address] [place] [address], [place] [address] Oct, [facility] [address] [id number] [address] [place] [address], [place] [address] Oct, [facility] [address] [id number] [address] [place] [address] Oct, [facility] [address] [id number] [address] [place] [address], [place] [address] Oct, [facility] [address] [id number] [address] [place] [address], [place] [address] Sep, [facility] [address] [id number] [address] [place] [address], [place] [address] Sep, [facility] [address] [id number] [address] [place] [address], [place] [address] Sep, [facility] [address] [id number] [address] [place] [address], [place] [address] Sep, [facility] [address] [id number] [address] [place] [address], [place] [address] Sep, [facility] [address] [id number] [address] [place] [address], [place] [address] Sep, [facility] [address] [id number] [address] [place] [address], [place] [address] Sep, [facility] [address] [id number] [address] [place] [address], [place] [address] Sep, [facility] [address] [id number] [address] [place] [address], [place] [address] Sep, [facility] [address] [id number] [address] [place] [address], [place] [address] Aug, [facility] [address] [id number] [address] [place] [address], [place] [address] Aug, [facility] [address] [id number] [address] [place] [address], [place] [address] Aug, [facility] [address] [id number] [address] [place] [address], [place] [address] Aug, [facility] [address] [id number] [address] [place] [address], [place] [address] Jul, [facility] [address] [id number] [address] [place] [address], [place] [address] Jul, [facility] [address] [id number] [address] [place] [address], [place] [address] Jul, [facility] [address] [id number] [address] [place] [address], [place] [address] Jul, [facility] [address] [id number] [address] [place] [address], [place] [address] Jul, [facility] [address] [id number] [address] [place] [address], [place] [address] Jul, [facility] [address] [id number] [address] [place] [address], [place] [address] Jul, [facility] [address] [id number] [address] [place] [address], [place] [address] Jul, [facility] [address] [id number] [address] [place] [address], [place] [address] Jun, [facility] [address] [id number] [address] [place] [address], [place] [address] 27 Jun, 2014 [facility] [address] [id number] [address] [place] [address], [place] [address] Jun, [facility] [address] [id number] [address] [place] [address], [place] [address] 20 Jun, 2014 [facility] [address] [id number] [address] [place] [address], [place] [address] 16 Jun, 2014 [facility] [address] [id number] [address] [place] [address], [place] [address] 15 Jun, 2014 [facility] [address] [id number] [address] [place] [address], [place] [address] 15 Jun, 2014 [facility] [address] [id number] [address] [place] [address], [place] [address] 14 Jun, 2014 [facility] [address] [id number] [address] [place] [address], [place] [address] 14 Jun, 2014 [facility] [address] [id number] [address] [place] [address], [place] [address] 11 Jun, 2014 [facility] [address] [id number] [address] [place] [address], [place] [address] 11 Jun, 2014 [facility] [address] [id number] [address] [place] [address], [place] [address] 24 May, 2014 [facility] [address] [id number] [address] [place] [address], [place] [address] May, [facility] [address] [id number] [address] [place] [address], [place] [address] May, [facility] [address] [id number] [address] [place] [address], [place] [address] May, [facility] [address] [id number] [address] [place] [address], [place] [address] May, [facility] [address] [id number] [address] [place] [address], [place] [address] Apr, [facility] [address] [id number] [address] [place] [address], [place] [address] Apr, [facility] [address] [id number] [address] [place] [address], [place] [address] Apr, [facility] [address] [id number] [address] [place] [address], [place] [address] Apr, [facility] [address] [id number] [address] [place] [address], [place] [address] Apr, [facility] [address] [id number] [address] [place] [address], [place] [address] Apr, [facility] [address] [id number] [address] [place] [address], [place] [address] Mar, [facility] [address] [id number] [address] [place] [address], [place] [address] Mar, [facility] [address] [id number] [address] [place] [address], [place] [address] Mar, [facility] [address] [id number] [address] [place] [address], [place] [address] Mar, [facility] [address] [id number] [address] [place] [address], [place] [address] Mar, [facility] [address] [id number] [address] [place] [address], [place] [address] Mar, [facility] [address] [id number] [address] [place] [address], [place] [address] Feb, [facility] [address] [id number] [address] [place] [address], [place] [address] Feb, [facility] [address] [id number] [address] [place] [address], [place] [address] Feb, [facility] [address] [id number] [address] [place] [address], [place] [address] Feb, [facility] [address] [id number] [address] [place] [address], [place] [address] Feb, [facility] [address] [id number] [address] [place] [address], [place] [address] Feb, [facility] [address] [id number] [address] [place] [address], [place] [address] Feb, [facility] [address] [id number] [address] [place] [address], [place] [address] Feb, [facility] [address] [id number] [address] [place] [address], [place] [address] January, [facility] [address] [id number] [address] [place] [address], [place] [address] January, [facility] [address] [id number] [address] [place] [address], [place] [address] January, [facility] [address] [id number] [address] [place] [address], [place] [address] January, [facility] [address] [id number] [address] [place] [address], [place] [address] January, [facility] [address] [id number] [address] [place] [address], [place] [address] January, [facility] [address] [id number] [address] [place] [address], [place] [address] January, [facility] [address] [id number] [address] [place] [address], [place] [address] January, [facility] [address] [id number] [address] [place] [address], [place] [address] Dec, [facility] [address] [id number] [address] [place] [address], [place] [address] Dec, [facility] [address] [id number] [address] [place] [address], [place] [address] Dec, [facility] [address] [id number] [address] [place] [address], [place] [address] Dec, [facility] [address] [id number] [address] [place] [address], [place] [address] Dec, [facility] [address] [id number] [address] [place] [address], [place] [address] Dec, [facility] [address] [id number] [address] [place] [address], [place] [address] Nov, [facility] [address] [id number] [address] [place] [address], [place] [address] Nov, [facility] [address] [id number] [address] [place] [address], [place] [address] Nov, [facility] [address] [id number] [address] [place] [address], [place] [address] Nov, [facility] [address] [id number] [address] [place] [address], [place] [address] Nov, [facility] [address] [id number] [address] [place] [address], [place] [address] Nov, [facility] [address] [id number] [address] [place] [address], [place] [address] Nov, [facility] [address] [id number] [address] [place] [address], [place] [address] Nov, [facility] [address] [id number] [address] [place] [address], [place] [address] Oct, [facility] [address] [id number] [address] [place] [address] Oct, [facility] [address] [id number] [address] [place] [address], [place] [address] Sep, [facility] [address] [id number] [address] [place] [address], [place] [address] Sep, [facility] [address] [id number] [address] [place] [address], [place] [address] Sep, [facility] [address] [id number] [address] [place] [address], [place] [address] Sep, [facility] [address] [id number] [address] [place] [address], [place] [address] Aug, [facility] [address] [id number] [address] [place] [address], [place] [address] Aug, [facility] [address] [id number] [address] [place] [address], [place] [address] Aug, [facility] [address] [id number] [address] [place] [address], [place] [address] Aug, [facility] [facility] [address] [id number] [address] [place] [address], [place] [address] Jul, [facility] [address] [id number] [address] [place] [address], [place] [address] Jul, [facility] [address] [id number] [address] [place] [address], [place] [address] Jul, [facility] [address] [id number] [address] [place] [address], [place] [address] Jul, [facility] [address] [id number] [address] [place] [address], [place] [address] Jul, [facility] [address] [id number] [address] [place] [address], [place] [address] Jul, [facility] [address] [id number] [address] [place] [address], [place] [address] Jul, [facility] [address] [id number] [address] [place] [address], [place] [address] 06 Jul, 2013 [facility] [address] [id number] [address] [place] [address], [place] [address] 06 Jul, 2013 [facility] [address] [id number] [address] [place] [address], [place] [address] Jul, [facility] [address] [id number] [address] [place] [address], [place] [address] 05 Jul, 2013 [facility] [address] [id number] [address] [place] [address], [place] [address] Jul, [facility] [address] [id number] [address] [place] [address], [place] [address] Jun, [facility] [address] [id number] [address] [place] [address], [place] [address] Jun, [facility] [address] [id number] [address] [place] [address], [place] [address] Jun, [facility] [address] [id number] [address] [place] [address], [place] [address] Jun, [facility] [address] [id number] [address] [place] [address], [place] [address] 16 Jun, 2013 [facility] [address] [id number] [address] [place] [address], [place] [address] 14 Jun, 2013 [facility] [address] [id number] [address] [place] [address], [place] [address] 14 Jun, 2013 [facility] [address] [id number] [address] [place] [address], [place] [address] 02 Jun, 2013 [facility] [address] [id number] [address] [place] [address], [place] [address] 15 May, 2013 [facility] [address] [id number] [address] [place] [address] [address] 05 Sep2012 [facility] [address] [id number] [address] [place] [address] [address] May, [facility] [address] [id number] [address] [place] [address], [place] [address] Apr, [facility] [address] [id number] [address] [place] [address], [place] [address] Apr, [facility] [address] [id number] [address] [place] [address], [place] [address] Mar, [facility] [address] [id number] [address] [place] [address], [place] [address] Mar, [facility] [address] [id number] [address] [place] [address], [place] [address] Feb, [facility] [address] [id number] [address] [place] [address], [place] [address] January, [facility] [address] [id number] [address] [place] [address], [place] [address] January, [facility] [address] [id number] [address] [place] [address], [place] [address] January, [facility] [address] [id number] [address] [place] [address], [place] [address] January, [facility] [address] [id number] [address] [place] [address], [place] [address] January, [facility] [address] [id number] [address] [place] [address], [place] [address] Dec, [facility] [address] [id number] [address] [place] [address], [place] [address] Dec, [facility] [address] [id number] [address] [place] [address], [place] [address] Dec, [facility] [address] [id number] [address] [place] [address], [place] [address] Nov, [facility] [address] [id number] [address] [place] [address], [place] [address] Oct, [facility] [address] [id number] [address] [place] [address], [place] [address] 18 Oct, 2012 [facility] [address] [id number] [address] [place] [address], [place] [address] 15 Oct, 2012 [facility] [address] [id number] [address] [place] [address], [place] [address] 18 Sep, 2012 [facility] [address] [id number] [address] [place] [address], [place] [address] 16 Sep, 2012 [facility] [address] [id number] [address] [place] [address], [place] [address] 14 Aug, 2012 [facility] [address] [id number] [address] [place] [address], [place] [address] 14 Aug, 2012 [facility] [address] [id number] [address] [place] [address], [place] [address] 11 Aug, 2012 [facility] [address] [id number] [address] [place] [address], [place] [address] Aug, [facility] [address] [id number] [address] [place] [address], [place] [address] Jul, [facility] [address] [id number] [address] [place] [address], [place] [address] Jul, [facility] [address] [id number] [address] [place] [address], [place] [address] Jul, [facility] [address] [id number] [address] [place] [address], [place] [address] Jul, [facility] [address] [id number] [address] [place] [address], [place] [address] Jul, [facility] [address] [id number] [address] [place] [address], [place] [address] 15 Jun, 2012 [facility] [address] [id number] [address] [place] [address], [place] [address] 15 Jun, 2012 [facility] [address] [id number] [address] [place] [address], [place] [address] 10 Jun, 2012 [facility] [address] [id number] [address] [place] [address], [place] [address] 10 Jun, 2012 [facility] [address] [id number] [address] [place] [address], [place] [address] May, [facility] [address] [id number] [address] [place] [address], [place] [address] Apr, [facility] [address] [id number] [address] [place] [address], [place] [address] Apr, [facility] [address] [id number] [address] [place] [address], [place] [address] Apr, [facility] [address] [id number] [address] [place] [address], [place] [address] Apr, [facility] [address] [id number] [address] [place] [address], [place] [address] January, [facility] [address] [id number] [address] [place] [address], [place] [address] January, [facility] [address] [id number] [address] [place] [address], [place] [address] Dec, [facility] [address] [id number] [address] [place] [address], [place] [address] Dec, [facility] [address] [id number] [address] [place] [address], [place] [address] Nov, [facility] [address] [id number] [address] [place] [address], [place] [address] Nov, [facility] [address] [id number] [address] [place] [address], [place] [address] Nov, [facility] [address] [id number] [address] [place] [address], [place] [address] Nov, [facility] [address] [id number] [address] [place] [address], [place] [address] Oct, [facility] [address] [id number] [address] [place] [address] Oct, [facility] [address] [id number] [address] [place] [address], [place] [address] Oct, [facility] [address] [id number] [address] [place] [address], [place] [address] Sep, [facility] [address] [id number] [address] [place] [address], [place] [address] Sep, [facility] [address] [id number] [address] [place] [address], [place] [address] Aug, [facility] [address] [id number] [address] [place] [address], [place] [address] Aug, [facility] [address] [id number] [address] [place] [address], [place] [address] Jul, [facility] [address] [id number] [address] [place] [address], [place] [address] Jul, [facility] [address] [id number] [address] [place] [address], [place] [address] Jul, [facility] [address] [id number] [address] [place] [address], [place] [address] Jun, [facility] [address] [id number] [address] [place] [address], [place] [address] Jun, [facility] [address] [id number] [address] [place] [address], [place] [address] Jun, [facility] [address] [id number] [address] [place] [address] Jun, [facility] [address] [id number] [address] [place] [address], [place] [address] Jun, [facility] [address] [id number] [address] [place] [address], [place] [address] Jun, [facility] [address] [id number] [address] [place] [address] Aug, [facility] [address] [id number] [address] [place] [address], [place] [address] 12 Aug, 2010 [facility] [address] [id number] [address] [place] [address], [place] [address] 08 Aug, 2010 [facility] [address] [id number] [address] [place] [address], [place] [address] 29 Jul, 2010 [facility] [address] [id number] [address] [place] [address], [place] [address] 27 Jul, 2010 [facility] [address] [id number] [address] [place] [address], [place] [address] Jul, [facility] [address] [id number] [address] [place] [address], [place] [address] 15 Jul, 2010 [facility] [address] [id number] [address] [place] [address], [place] [address] Jul, [facility] [address] [id number] [address] [place] [address], [place] [address] Jul, [facility] [address] [id number] [address] [place] [address], [place] [address] Jun, [facility] [address] [id number] [address] [place] [address], [place] [address] Apr, [facility] [address] [id number] [address] [place] [address], [place] [address] Feb, [facility] [address] [id number] [address] [place] [address], [place] [address] Oct, [facility] [address] [id number] [address] [place] [address], [place] [address] Sep, [facility] [address] [id number] [address] [place] [address], [place] [address] Aug, [facility] [address] [id number] [address] [place] [address], [place] [address] 18 Aug, 2009 [facility] [address] [id number] [address] [place] [address] Aug, [facility] [address] [facility] [id number] [address] [place] [address] Jul, [facility] [address] [facility] [id number] [address] [place] [address] Jun, IMMUNIZATIONS No Known Immunizations SOCIAL HISTORY [...]
--- OUTSIDE RECORDS SUMMARY | 2020-02-22 17:23 | XMS REPORT ---
Author Author Marion SILVA Organization [facility] Address [address] [place] [address] Care Team Providers Care Coil Inspector Name Role Phone RICARDO JOSE Unavailable PROBLEMS Type Condition ICD9-CM Code EKO14-MG Code Onset Dates Condition S tatus SNOMED Code Problem Migraine without aura and without status migrain osus, not intractable G43.009 Active 074126620 Problem Acquired hypothyroidism E03.9 Active 748793343 Problem Cervical disc disease M50.90 Active 687006115 Problem Dyspepsia R10.13 Active [id number] ALLERGIES No Information ENCOUNTERS Encounter Location Date Diagnosis [facility] [address] [facility] [id number] [address] [place] [id number] Mar, Cervical disc disease M50.90 [facility] [address] [facility] [id number] [address] [place] [id number] Feb, [address] [address] Feb, Cervical disc disease M50.[address] [address] January, [facility] [address] [facility] [id number] [address] [place] [id number] January, Cervical disc disease M50.90 [facility] [address] [facility] [id number] [address] [place] [address] January, Cervical disc disease M50.90 [facility] [address] [facility] [id number] [address] [place] [id number] Dec, Cervical disc disease M50.90 [facility] [address] [facility] [id number] [address] [place] [id number] Dec, Cervical disc disease M50.90 [facility] [address] [facility] [id number] [address] [place] [id number] Dec, Cervical disc disease M50.90 [facility] [address] [facility] [id number] [address] [place] [id number] Dec, Cervical disc disease M50.90 ; Acquired hypothyroidism E03.9 and Migraine without aura and without status migrainosus, not intractable G43.009 [facility] [address] [facility] [id number] [address] [place] [id number] Nov, [facility] [address] [facility] [id number] [address] [place] [id number] Nov, Cervical disc disease M50.90 [facility] [address] [facility] [id number] [address] [place] [address] Oct, Cervical disc disease M50.90 [facility] [address] [place] [id number] [address] [place] [id number] Sep, [facility] [address] [facility] [id number] [address] [place] [address] Sep, Cervical disc disease M50.90 [facility] [address] [facility] [id number] [address] [place] [address] Aug, Cervical disc disease M50.90 [facility] [address] [facility] [id number] [address] [place] [id number] Jul, Cervical disc disease M50.90 [facility] [address] [facility] [id number] [address] [place] [id number] Jun, Acute recurrent pansinusitis J01.41 and Cervical disc disease M50.90 [facility] [address] [facility] [id number] [address] [place] [address] Jun, Cervical disc disease M50.90 [facility] [address] [facility] [id number] [address] [place] [id number] May, Cervical disc disease M50.90 [facility] [address] [id number] [address] [place] [id number] Apr, Cervical disc disease M50.90 [facility] [address] [id number] [address] [place] [address] Mar, Cervical disc disease M50.90 [facility] [address] [id number] [address] [place] [id number] Mar, [facility] [address] [id number] [address] [place] [id number] Mar, Cervical disc disease M50.90 [facility] [address] [id number] [address] [place] [id number] Feb, Cervical disc disease M50.90 [facility] [address] [id number] [address] [place] [address] January, Cervical disc disease M50.90 [facility] [address] [id number] [address] [place] [address] Dec, [facility] [address] [id number] [address] [place] [id number] Dec, Cervical disc disease M50.90 [facility] [address] [id number] [address] [place] [id number] Nov, Cervical disc disease M50.90 [facility] [address] [id number] [address] [place] [id number] Nov, Cervical disc disease M50.90 [facility] [address] [id number] [address] [place] [id number] Oct, Cervical disc disease M50.90 [facility] [address] [id number] [address] [place] [id number] Oct, Cervical disc disease M50.90 and Acute non-recurrent maxillary sinusitis J01.00 [facility] [address] [id number] [address] [place] [id number] Sep, Cervical disc disease M50.90 [facility] [address] [facility] [id number] [address] [place] [phone] Sep, [facility] [address] [facility] [id number] [address] [place] [address] Sep, Fatigue, unspecified type R5 3.83 and Cough R05 [facility] [address] [facility] [id number] [address] [place] [id number] Aug, Cervical disc disease M50.90 [facility] [address] [facility] [id number] [address] [place] [id number] Aug, Sore throat J02.9 ; Canker s ore K12.0 and History of anemia Z86.2 [facility] [address] [facility] [id number] [address] [place] [id number] Jul, Cervical disc disease M50.90 [facility] [address] [facility] [id number] [address] [place] [id number] Jun, Cervical disc disease M50.90 [facility] [address] [facility] [id number] [address] [place] [address] Jun, Cervical disc disease M50.90 [facility] [address] [facility] [id number] [address] [place] [id number] May, Cervical disc disease M50.90 [facility] [address] [facility] [id number] [address] [place] [id number] Apr, Cervical disc disease M50.90 [facility] [address] [facility] [id number] [address] [place] [id number] Apr, [facility] [address] [facility] [id number] [address] [place] [id number] Feb, Cervical disc disease M50.90 [facility] [address] [facility] [id number] [address] [place] [id number] January, Cervical disc disease M50.90 [facility] [address] [facility] [id number] [address] [place] [phone] Nov, [facility] [address] [id number] [address] [place] [id number] Nov, Cervical disc disease M50.90 [facility] [address] [id number] [address] [place] [id number] Nov, Acute cystitis with hematuri a N30.01 and Dysuria R30.0 [facility] [address] [id number] [address] [place] [id number] Oct, Cervical disc disease M50.90 and Acute non-recurrent frontal sinusitis J01.10 [facility] [address] [facility] [id number] [address] [place] [id number] Sep, Neck pain M54.2 [facility] [address] [facility] [id number] [address] [place] [id number] Sep, [facility] [address] [facility] [id number] [address] [place] [address] Aug, Cervical disc disease M50.90 [facility] [address] [id number] [address] [place] [id number] Jul, [facility] [address] [place] [id number] [address] [place] [id number] Jun, [facility] [address] [place] [id number] [address] [place] [id number] May, [facility] [address] [place] [id number] [address] [place] [id number] May, Screening for diabetes melli tus Z13.1 ; Chronic fatigue R53.82 and Edema, unspecified type R60.9 [facility] [address] [facility] [id number] [address] [place] [id number] Apr, Neck pain M54.2 [facility] [address] [place] [id number] [address] [place] [id number] Mar, [facility] [address] [place] [id number] [address] [place] [id number] Mar, Neck pain M54.2 [facility] [address] [id number] [address] [place] [id number] Feb, Cervical disc disease M50.90 [facility] [address] [id number] [address] [place] [phone] Feb, Cervical disc disease M50.90 [facility] [address] [id number] [address] [place] [id number] January, [facility] [address] [id number] [address] [place] [id number] January, [facility] [address] [id number] [address] [place] [id number] January, Cervical disc disease M50.90 [facility] [address] [id number] [address] [place] [id number] January, [facility] [address] [id number] [address] [place] [id number] January, [facility] [address] [id number] [address] [place] [id number] Dec, Cervical disc disease M50.90 [facility] [address] [id number] [address] [place] [id number] Nov, Cervical disc disease M50.90 [facility] [address] [id number] [address] [place] [id number] Oct, Cervical disc disease M50.90 [facility] [address] [id number] [address] [place] [id number] Sep, Cervical disc disease M50.[address] [facility] [address] [id number] [address] [place] [id number] Aug, Dental caries K02.9 and Enco unter for dental examination Z01.20 [facility] [address] [id number] [address] [place] [id number] Aug, [facility] [address] [id number] [address] [place] [id number] Aug, [facility] [address] [id number] [address] [place] [address] [id number] Aug, 2015 Encounter for dental examina tion Z01.20 [facility] [address] [id number] [address] [place] [id number] Jul, [facility] [address] [id number] [address] [place] [id number] Jun, Sinusitis J32.9 and Cervical disc disease M50.90 [facility] [address] [id number] [address] [place] [id number] Jun, [facility] [address] [id number] [address] [place] [id number] 24 May, 2015 [facility] [address] [id number] [address] [place] [id number] May, [facility] [address] [id number] [address] [place] [phone] May, [facility] [address] [id number] [address] [place] [id number] May, [facility] [address] [id number] [address] [place] [id number] Apr, Cervical spondylosis without myelopathy 721.0 [facility] [address] [id number] [address] [place] [id number] Mar, [facility] [address] [id number] [address] [place] [id number] January, Cervical spondylosis without myelopathy 721.0 [facility] [address] [id number] [address] [place] [id number] Dec, [facility] [address] [id number] [address] [place] [id number] Dec, [facility] [address] [id number] [address] [place] [address], [place] [id number] Dec, [facility] [address] [id number] [address] [place] [address], [place] [id number] Nov, [facility] [address] [id number] [address] [place] [address], [place] [id number] Nov, [facility] [address] [id number] [address] [place] [address], [place] [id number] Oct, [facility] [address] [id number] [address] [place] [address], [place] [address] Oct, [facility] [address] [id number] [address] [place] [address], [place] [id number] Oct, [facility] [address] [id number] [address] [place] [address], [place] [id number] Oct, [facility] [address] [id number] [address] [place] [address], [place] [id number] Oct, [facility] [address] [id number] [address] [place] [address], [place] [id number] Oct, [facility] [address] [id number] [address] [place] [address], [place] [id number] Oct, [facility] [address] [id number] [address] [place] [address], [place] [id number] Oct, [facility] [address] [id number] [address] [place] [address], [place] [id number] Oct, [facility] [address] [id number] [address] [place] [address], [place] [id number] Oct, [facility] [address] [id number] [address] [place] [address], [place] [id number] Sep, [facility] [address] [id number] [address] [place] [address], [place] [id number] Sep, [facility] [address] [id number] [address] [place] [address], [place] [id number] Sep, [facility] [address] [id number] [address] [place] [address], [place] [id number] Sep, [facility] [address] [id number] [address] [place] [address], [place] [id number] Sep, [facility] [address] [id number] [address] [place] [address], [place] [id number] Sep, [facility] [address] [id number] [address] [place] [address], [place] [address] Sep, [facility] [address] [id number] [address] [place] [address], [place] [id number] Sep, [facility] [address] [id number] [address] [place] [address], [place] [id number] Sep, [facility] [address] [id number] [address] [place] [address], [place] [id number] Aug, [facility] [address] [id number] [address] [place] [address], [place] [id number] Aug, [facility] [address] [id number] [address] [place] [address], [place] [address] Aug, [facility] [address] [id number] [address] [place] [address], [place] [id number] Aug, [facility] [address] [id number] [address] [place] [address], [place] [id number] Jul, [facility] [address] [id number] [address] [place] [address], [place] [id number] Jul, [facility] [address] [id number] [address] [place] [address], [place] [id number] Jul, [facility] [address] [id number] [address] [place] [address], [place] [id number] Jul, [facility] [address] [id number] [address] [place] [address], [place] [id number] Jul, [facility] [address] [id number] [address] [place] [address], [place] [id number] Jul, [facility] [address] [id number] [address] [place] [address], [place] [id number] Jul, [facility] [address] [id number] [address] [place] [address], [place] [address] Jul, [facility] [address] [id number] [address] [place] [address], [place] [address] Jun, [facility] [address] [id number] [address] [place] [address], [place] [id number] 27 Jun, 2014 [facility] [address] [id number] [address] [place] [address], [place] [address] Jun, [facility] [address] [id number] [address] [place] [address], [place] [id number] 20 Jun, 2014 [facility] [address] [id number] [address] [place] [address], [place] [id number] 16 Jun, 2014 [facility] [address] [id number] [address] [place] [address], [place] [id number] 15 Jun, 2014 [facility] [address] [id number] [address] [place] [id number] 15 Jun, 2014 [facility] [address] [id number] [address] [place] [address], [place] [address] 14 Jun, 2014 [facility] [address] [id number] [address] [place] [id number] 14 Jun, 2014 [facility] [address] [id number] [address] [place] [address], [place] [id number] 11 Jun, 2014 [facility] [address] [id number] [address] [place] [address], [place] [id number] 11 Jun, 2014 [facility] [address] [id number] [address] [place] [address], [place] [id number] 24 May, 2014 [facility] [address] [id number] [address] [place] [address], [place] [address] 24 May, 2014 [facility] [address] [id number] [address] [place] [address], [place] [id number] May, [facility] [address] [id number] [address] [place] [address], [place] [id number] May, [facility] [address] [id number] [address] [place] [address], [place] [address] May, [facility] [address] [id number] [address] [place] [address], [place] [id number] Apr, [facility] [address] [id number] [address] [place] [address], [place] [address] Apr, [facility] [address] [id number] [address] [place] [address], [place] [id number] Apr, [facility] [address] [id number] [address] [place] [address], [place] [address] Apr, [facility] [address] [id number] [address] [place] [address], [place] [address] Apr, [facility] [address] [id number] [address] [place] [address], [place] [address] Apr, [facility] [address] [id number] [address] [place] [address], [place] [address] Mar, [facility] [address] [id number] [address] [place] [address], [place] [address] Mar, [facility] [address] [id number] [address] [place] [address], [place] [address] Mar, [facility] [address] [id number] [address] [place] [address], [place] [address] Mar, [facility] [address] [id number] [address] [place] [address], [place] [id number] Mar, [facility] [address] [id number] [address] [place] [address], [place] [address] Mar, [facility] [address] [id number] [address] [place] [address], [place] [address] Feb, [facility] [address] [id number] [address] [place] [address], [place] [address] Feb, [facility] [address] [id number] [address] [place] [address], [place] [address] Feb, [facility] [address] [id number] [address] [place] [address], [place] [address] Feb, [facility] [address] [id number] [address] [place] [address], [place] [address] Feb, [facility] [address] [id number] [address] [place] [address], [place] [address] Feb, [facility] [address] [id number] [address] [place] [address], [place] [address] Feb, [facility] [address] [id number] [address] [place] [address], [place] [address] Feb, [facility] [address] [id number] [address] [place] [address], [place] [address] January, [facility] [address] [id number] [address] [place] [address], [place] [address] January, [facility] [address] [id number] [address] [place] [address], [place] [address] January, [facility] [address] [id number] [address] [place] [address], [place] [address] January, [facility] [address] [id number] [address] [place] [address], [place] [address] January, [facility] [address] [id number] [address] [place] [address], [place] [address] January, [facility] [address] [id number] [address] [place] [address], [place] [id number] January, [facility] [address] [id number] [address] [place] [address], [place] [address] January, [facility] [address] [id number] [facility] [address] Dec, [facility] [address] [id number] [address] [place] [address], [place] [address] Dec, [facility] [address] [id number] [address] [place] [address], [place] [address] Dec, [facility] [address] [id number] [address] [place] [address], [place] [address] Dec, [facility] [address] [id number] [address] [place] [address], [place] [id number] Dec, [facility] [address] [id number] [address] [place] [address], [place] [address] Dec, [facility] [address] [id number] [address] [place] [address], [place] [address] Nov, [facility] [address] [id number] [address] [place] [address], [place] [address] Nov, [facility] [address] [id number] [address] [place] [address], [place] [address] Nov, [facility] [address] [id number] [address] [place] [address], [place] [address] Nov, [facility] [address] [id number] [address] [place] [address], [place] [address] Nov, [facility] [address] [id number] [address] [place] [address], [place] [address] Nov, [facility] [address] [id number] [address] [place] [address], [place] [address] Nov, [facility] [address] [id number] [address] [place] [address], [place] [address] Nov, [facility] [address] [id number] [address] [place] [address], [place] [address] Oct, [facility] [address] [id number] [address] [place] [address], [place] [address] Oct, [facility] [address] [id number] [address] [place] [address], [place] [address] Sep, [facility] [address] [id number] [address] [place] [address], [place] [address] Sep, [facility] [address] [id number] [address] [place] [address], [place] [address] Sep, [facility] [address] [id number] [address] [place] [address], [place] [address] Sep, [facility] [address] [id number] [address] [place] [address], [place] [address] Aug, [facility] [address] [id number] [address] [place] [address], [place] [address] Aug, [facility] [address] [id number] [address] [place] [address], [place] [address] Aug, [facility] [address] [id number] [address] [place] [address], [place] [address] Aug, [facility] [address] [id number] [address] [place] [address], [place] [id number] Jul, [facility] [address] [id number] [address] [place] [address], [place] [address] Jul, [facility] [address] [id number] [address] [place] [address], [place] [address] Jul, [facility] [address] [id number] [address] [place] [address], [place] [address] Jul, [facility] [address] [id number] [address] [place] [address], [place] [address] Jul, [facility] [address] [id number] [address] [place] [address], [place] [address] Jul, [facility] [address] [id number] [address] [place] [address], [place] [address] Jul, [facility] [address] [id number] [address] [place] [address], [place] [address] Jul, [facility] [address] [id number] [address] [place] [address], [place] [address] Jul, [facility] [address] [id number] [address] [place] [address], [place] [address] Jul, [facility] [address] [id number] [address] [place] [address], [place] [address] Jul, [facility] [address] [id number] [address] [place] [address], [place] [address] Jul, [facility] [address] [id number] [address] [place] [address], [place] [address] Jun, [facility] [address] [id number] [address] [place] [address], [place] [address] Jun, [facility] [address] [id number] [address] [place] [id number] Jun, [facility] [address] [id number] [address] [place] [address], [place] [address] Jun, [facility] [address] [id number] [address] [place] [id number] 16 Jun, 2013 [facility] [address] [id number] [address] [place] [id number] 14 Jun, 2013 [facility] [address] [id number] [address] [place] [id number] 14 Jun, 2013 [facility] [address] [id number] [address] [place] [id number] 02 Jun, 2013 [facility] [address] [id number] [address] [place] [id number] 15 May, 2013 [facility] [address] [id number] [address] [place] [id number] 05 May, 2013 [facility] [address] [id number] [address] [place] [id number] May, [facility] [address] [id number] [address] [place] [address], [place] [address] Apr, [facility] [address] [id number] [address] [place] [address], [place] [address] Apr, [facility] [address] [id number] [address] [place] [address], [place] [address] Mar, [facility] [address] [id number] [address] [place] [address], [place] [address] Mar, [facility] [address] [id number] [address] [place] [address], [place] [address] Feb, [facility] [address] [id number] [address] [place] [address], [place] [address] January, [facility] [address] [id number] [address] [place] [address], [place] [address] January, [facility] [address] [id number] [address] [place] [address], [place] [address] January, [facility] [address] [id number] [address] [place] [address], [place] [address] January, [facility] [address] [id number] [address] [place] [address], [place] [address] January, [facility] [address] [id number] [address] [place] [address], [place] [address] Dec, [facility] [address] [id number] [address] [place] [address], [place] [address] Dec, [facility] [address] [id number] [address] [place] [address], [place] [address] Dec, [facility] [address] [id number] [address] [place] [address], [place] [address] Nov, [facility] [address] [id number] [address] [place] [address], [place] [address] Oct, [facility] [address] [id number] [address] [place] [address], [place] [address] 18 Oct, 2012 [facility] [address] [id number] [address] [place] [address], [place] [address] 15 Oct, 2012 [facility] [address] [id number] [address] [place] [address], [place] [address] 18 Sep, 2012 [facility] [address] [id number] [address] [place] [address], [place] [address] 16 Sep, 2012 [facility] [address] [id number] [address] [place] [address], [place] [address] 14 Aug, 2012 [facility] [address] [id number] [address] [place] [address], [place] [address] 14 Aug, 2012 [facility] [address] [id number] [address] [place] [address], [place] [address] Aug, [facility] [address] [id number] [address] [place] [address], [place] [address] Aug, [facility] [address] [id number] [address] [place] [address], [place] [address] Jul, [facility] [address] [id number] [address] [place] [address], [place] [address] Jul, [facility] [address] [id number] [address] [place] [address], [place] [address] Jul, [facility] [address] [id number] [address] [place] [address], [place] [address] Jul, [facility] [address] [id number] [address] [place] [address], [place] [address] Jul, [facility] [address] [id number] [address] [place] [address], [place] [address] 15 Jun, 2012 [facility] [address] [id number] [address] [place] [address], [place] [address] 15 Jun, 2012 [facility] [address] [id number] [address] [place] [id number] 10 Jun, 2012 [facility] [address] [id number] [address] [place] [address], [place] [address] 10 Jun, 2012 [facility] [address] [id number] [address] [place] [address], [place] [address] May, [facility] [address] [id number] [address] [place] [address], [place] [address] Apr, [facility] [address] [id number] [address] [place] [address], [place] [address] Apr, [facility] [address] [id number] [address] [place] [address], [place] [id number] Apr, [facility] [address] [id number] [address] [place] [address], [place] [address] Apr, [facility] [address] [id number] [address] [place] [address], [place] [address] January, [facility] [address] [id number] [address] [place] [address], [place] [address] January, [facility] [address] [id number] [address] [place] [address], [place] [address] Dec, [facility] [address] [id number] [address] [place] [address], [place] [address] Dec, [facility] [address] [id number] [address] [place] [address], [place] [address] Nov, [facility] [address] [id number] [address] [place] [address], [place] [id number] Nov, [facility] [address] [id number] [address] [place] [address], [place] [address] Nov, [facility] [address] [id number] [address] [place] [address], [place] [address] Nov, [facility] [address] [id number] [address] [place] [address], [place] [address] Oct, [facility] [address] [id number] [address] [place] [address], [place] [address] Oct, [facility] [address] [id number] [address] [place] [address], [place] [address] Oct, [facility] [address] [id number] [address] [place] [address], [place] [address] Sep, [facility] [address] [id number] [address] [place] [address], [place] [address] Sep, [facility] [address] [id number] [address] [place] [address], [place] [address] Aug, [facility] [address] [id number] [address] [place] [address], [place] [address] Aug, [facility] [address] [id number] [address] [place] [address], [place] [address] Jul, [facility] [address] [id number] [address] [place] [address], [place] [address] Jul, [facility] [address] [id number] [address] [place] [address], [place] [address] Jul, [facility] [address] [id number] [address] [place] [address], [place] [address] Jun, [facility] [address] [id number] [address] [place] [address], [place] [address] Jun, [facility] [address] [id number] [address] [place] [address], [place] [address] Jun, [facility] [address] [id number] [address] [place] [address], [place] [address] Jun, [facility] [address] [id number] [address] [place] [address], [place] [address] Jun, [facility] [address] [id number] [address] [place] [address], [place] [address] Jun, [facility] [address] [id number] [address] [place] [address], [place] [address] Aug, [facility] [address] [id number] [address] [place] [address], [place] [address] 12 Aug, 2010 [facility] [address] [id number] [address] [place] [address], [place] [address] 08 Aug, 2010 [facility] [address] [id number] [address] [place] [address], [place] [address] 29 Jul, 2010 [facility] [address] [id number] [address] [place] [address], [place] [address] Jul, [facility] [address] [id number] [address] [place] [address], [place] [address] Jul, [facility] [address] [id number] [address] [place] [address], [place] [id number] 15 Jul, 2010 [facility] [address] [id number] [address] [place] [address], [place] [address] Jul, [facility] [address] [id number] [address] [place] [address], [place] [address] Jul, [facility] [address] [id number] [address] [place] [address], [place] [address] Jun, [facility] [address] [id number] [address] [place] [id number] Apr, [facility] [address] [id number] [address] [place] [address], [place] [address] Feb, [facility] [address] [id number] [address] [place] [id number] 10 Oct, 2009 [facility] [address] [id number] [address] [place] [address], [place] [address] Sep, [facility] [address] [id number] [address] [place] [id number] 18 Aug, 2009 [facility] [address] [id number] [address] [place] [address], [place] [address] Aug, [facility] [address] [id number] [address] [place] [address] Aug, [facility] [address] [facility] [id number] [address] [place] [id number] Jul, [facility] [address] [facility] [id number] [address] [place] [id number] Jun, IMMUNIZATIONS No Known Immunizations SOCIAL HISTORY [...]
--- OUTSIDE RECORDS SUMMARY | 2020-02-22 17:23 | XMS REPORT ---
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 Name Role Phone SHABNAM CORREA Unavailable PROBLEMS Type Condition ICD9-CM Code [id number] Code Onset Dates Condition S tatus SNOMED Code Problem Migraine without aura and without status migrain osus, not intractable G43.009 Active 664865335 Problem Acquired hypothyroidism E03.9 Active 564219272 Problem Cervical disc disease M50.90 Active 285498763 Problem Dyspepsia R10.13 Active [id number] ALLERGIES No Information ENCOUNTERS Encounter Location Date Diagnosis [facility] [address] [facility] [id number] [address] [place] [phone] Mar, Cervical disc disease M50.90 [facility] [address] [facility] [id number] [address] [place] [address] Feb, [facility] [address] [place] [address] Feb, Cervical disc disease M50.[address] [address] January, [facility] [address] [facility] [id number] [address] [place] [address] January, Cervical disc disease M50.90 [facility] [address] [id number] [address] [place] [address] January, Cervical disc disease M50.90 [facility] [address] [id number] [address] [place] [address] Dec, Cervical disc disease M50.90 [facility] [address] [id number] [address] [place] [address] Dec, Cervical disc disease M50.90 [place] [address] [facility] [id number] [address] [place] [address] Dec, Cervical disc disease M50.90 [facility] [address] [facility] [id number] [address] [place] [address] Dec, Cervical disc disease M50.90 ; Acquired hypothyroidism E03.9 and Migraine without aura and without status migrainosus, not intractable G43.009 [facility] [address] [facility] [id number] [address] [place] [address] Nov, [facility] [address] [facility] [id number] [address] [place] [address] Nov, Cervical disc disease M50.90 [facility] [address] [facility] [id number] [address] [place] [address] Oct, Cervical disc disease M50.90 [facility] [address] [place] [id number] [address] [place] [address] Sep, [facility] [address] [facility] [id number] [address] [place] [address] Sep, Cervical disc disease M50.90 [facility] [address] [place] [id number] [address] [place] [address] Aug, Cervical disc disease M50.90 [facility] [address] [place] [id number] [address] [place] [address] Jul, Cervical disc disease M50.90 [facility] [address] [facility] [id number] [address] [place] [address] Jun, Acute recurrent pansinusitis J01.41 and Cervical disc disease M50.90 [facility] [address] [facility] [id number] [address] [place] [address] Jun, Cervical disc disease M50.90 [facility] [address] [facility] [id number] [address] [place] [address] May, Cervical disc disease M50.90 [facility] [address] [id number] [address] [place] [address] Apr, Cervical disc disease M50.90 [facility] [address] [id number] [address] [place] [address] Mar, Cervical disc disease M50.90 [facility] [address] [id number] [address] [place] [address] Mar, [facility] [address] [id number] [address] [place] [address] Mar, Cervical disc disease M50.90 [facility] [address] [id number] [address] [place] [address] Feb, Cervical disc disease M50.90 [facility] [address] [id number] [address] [place] [address] January, Cervical disc disease M50.90 [facility] [address] [id number] [address] [place] [address] Dec, [facility] [address] [id number] [address] [place] [address] Dec, Cervical disc disease M50.90 [facility] [address] [id number] [address] [place] [address] Nov, Cervical disc disease M50.90 [facility] [address] [id number] [address] [place] [address] Nov, Cervical disc disease M50.90 [facility] [address] [id number] [address] [place] [address] Oct, Cervical disc disease M50.90 [facility] [address] [id number] [address] [place] [address] Oct, Cervical disc disease M50.90 and Acute non-recurrent maxillary sinusitis J01.00 [facility] [address] [id number] [address] [place] [address] Sep, Cervical disc disease M50.90 [facility] [address] [facility] [id number] [address] [place] [address] Sep, [facility] [address] [facility] [id number] [address] [place] [address] Sep, Fatigue, unspecified type R5 3.83 and Cough R05 [facility] [address] [facility] [id number] [address] [place] [address] Aug, Cervical disc disease M50.90 [facility] [address] [facility] [id number] [address] [place] [address] Aug, Sore throat J02.9 ; Canker s ore K12.0 and History of anemia Z86.2 [facility] [address] [facility] [id number] [address] [place] [address] Jul, Cervical disc disease M50.90 [facility] [address] [facility] [id number] [address] [place] [address] Jun, Cervical disc disease M50.90 [facility] [address] [facility] [id number] [address] [place] [address] Jun, Cervical disc disease M50.90 [facility] [address] [facility] [id number] [address] [place] [address] May, Cervical disc disease M50.90 [facility] [address] [facility] [id number] [address] [place] [address] Apr, Cervical disc disease M50.90 [facility] [address] [facility] [id number] [address] [place] [address] Apr, [facility] [address] [facility] [id number] [address] [place] [address] Feb, Cervical disc disease M50.90 [facility] [address] [facility] [id number] [address] [place] [address] January, Cervical disc disease M50.90 [facility] [address] [facility] [id number] [address] [place] [address] Nov, [facility] [address] [id number] [address] [place] [address] Nov, Cervical disc disease M50.90 [facility] [address] [id number] [address] [place] [address] Nov, Acute cystitis with hematuri a N30.01 and Dysuria R30.0 [facility] [address] [id number] [address] [place] [address] Oct, Cervical disc disease M50.90 and Acute non-recurrent frontal sinusitis J01.10 [facility] [address] [id number] [address] [place] [address] Sep, Neck pain M54.2 [facility] [address] [facility] [id number] [address] [place] [address] Sep, [facility] [address] [facility] [id number] [address] [place] [address] Aug, Cervical disc disease M50.90 [facility] [address] [id number] [address] [place] [address] Jul, [facility] [address] [facility] [id number] [address] [place] [phone] Jun, [facility] [address] [facility] [id number] [address] [place] [address] May, [facility] [address] [facility] [id number] [address] [place] [address] May, Screening for diabetes melli tus Z13.1 ; Chronic fatigue R53.82 and Edema, unspecified type R60.9 [facility] [address] [id number] [address] [place] [address] Apr, Neck pain M54.2 [facility] [address] [facility] [id number] [address] [place] [address] Mar, [facility] [address] [facility] [id number] [address] [place] [address] Mar, Neck pain M54.2 [facility] [address] [id number] [address] [place] [address] Feb, Cervical disc disease M50.90 [facility] [address] [id number] [address] [place] [address] Feb, Cervical disc disease M50.90 [facility] [address] [id number] [address] [place] [phone] January, [facility] [address] [id number] [address] [place] [address] January, [facility] [address] [id number] [address] [place] [address] January, Cervical disc disease M50.90 [facility] [address] [id number] [address] [place] [address] January, [facility] [address] [id number] [address] [place] [address] January, [facility] [address] [id number] [address] [place] [address] Dec, Cervical disc disease M50.90 [facility] [address] [id number] [address] [place] [address] Nov, Cervical disc disease M50.90 [facility] [address] [id number] [address] [place] [address] Oct, Cervical disc disease M50.90 [facility] [address] [id number] [address] [place] [address] Sep, Cervical disc disease M50.90 [facility] [address] [id number] [address] [place] [id number] Aug, Dental caries K02.9 and Enco unter for dental examination Z01.20 [facility] [address] [id number] [address] [place] [address] Aug, [facility] [address] [id number] [address] [place] [address] Aug, [facility] [address] [id number] [address] [place] [id number] Aug, Encounter for dental examina tion Z01.20 [facility] [address] [id number] [address] [place] [phone] Jul, [facility] [address] [id number] [address] [place] [address] Jun, Sinusitis J32.9 and Cervical disc disease M50.90 [facility] [address] [id number] [address] [place] [address] Jun, [facility] [address] [id number] [address] [place] [address] May, [facility] [address] [id number] [address] [place] [phone] May, [facility] [address] [id number] [address] [place] [phone] May, [facility] [address] [id number] [address] [place] [phone] May, [facility] [address] [id number] [address] [place] [phone] Apr, Cervical spondylosis without myelopathy 721.0 [facility] [address] [id number] [address] [place] [address] Mar, [facility] [address] [id number] [address] [place] [phone] January, Cervical spondylosis without myelopathy 721.0 [facility] [address] [id number] [address] [place] [phone] Dec, [facility] [address] [id number] [address] [place] [id number] 14 Dec, 2014 [facility] [address] [id number] [address] [place] [place] [address], [place] [address] Dec, [facility] [address] [id number] [address] [place] [address], [place] [address] Nov, [facility] [address] [id number] [address] [place] [address], [place] [address] Nov, [facility] [address] [id number] [address] [place] [address], [place] [address] Oct, [facility] [address] [id number] [address] [place] [place] [address], [place] [address] Oct, [facility] [address] [id number] [address] [place] [address], [place] [address] Oct, [facility] [address] [id number] [address] [place] [address], [place] [address] Oct, [facility] [address] [id number] [address] [place] [address], [place] [address] Oct, [facility] [address] [id number] [address] [place] [address], [place] [address] Oct, [facility] [address] [id number] [address] [place] [address], [place] [address] Oct, [facility] [address] [id number] [address] [place] [address], [place] [address] Oct, [facility] [address] [id number] [address] [place] [phone] Oct, [facility] [address] [id number] [address] [place] [place] [address], [place] [address] Oct, [facility] [address] [id number] [address] [place] [address], [place] [address] Sep, [facility] [address] [id number] [address] [place] [place] [address], [place] [address] Sep, [facility] [address] [id number] [address] [place] [address], [place] [address] Sep, [facility] [address] [id number] [address] [place] [address], [place] [address] Sep, [facility] [address] [id number] [address] [place] [address], [place] [address] Sep, [facility] [address] [id number] [address] [place] [place] [address], [place] [address] Sep, [facility] [address] [id number] [address] [place] [address], [place] [address] Sep, [facility] [address] [id number] [address] [place] [address], [place] [address] Sep, [facility] [address] [id number] [address] [place] [address], [place] [address] Sep, [facility] [address] [id number] [address] [place] [address], [place] [address] Aug, [facility] [address] [id number] [address] [place] [address], [place] [address] Aug, [facility] [address] [id number] [address] [place] [place] [address], [place] [address] Aug, [facility] [address] [id number] [address] [place] [address], [place] [address] Aug, [facility] [address] [id number] [address] [place] [address], [place] [address] Jul, [facility] [address] [id number] [address] [place] [address], [place] [address] Jul, [facility] [address] [id number] [address] [place] [address], [place] [address] Jul, [facility] [address] [id number] [address] [place] [address], [place] [address] Jul, [facility] [address] [id number] [address] [place] [address], [place] [address] Jul, [facility] [address] [id number] [address] [place] [address], [place] [address] Jul, [facility] [address] [id number] [address] [place] [address], [place] [address] Jul, [facility] [address] [id number] [address] [place] [address], [place] [address] Jul, [facility] [address] [id number] [address] [place] [address], [place] [address] Jun, [facility] [address] [id number] [address] [place] [address], [place] [address] 27 Jun, 2014 [facility] [address] [id number] [address] [place] [address], [place] [address] Jun, [facility] [address] [id number] [address] [place] [address], [place] [address] 20 Jun, 2014 [facility] [address] [id number] [address] [place] [address], [place] [address] 16 Jun, 2014 [facility] [address] [id number] [address] [place] [address], [place] [address] 15 Jun, 2014 [facility] [address] [id number] [address] [place] [address], [place] [address] 15 Jun, 2014 [facility] [address] [id number] [address] [place] [address], [place] [address] 14 Jun, 2014 [facility] [address] [id number] [address] [place] [address], [place] [address] 14 Jun, 2014 [facility] [address] [id number] [address] [place] [address], [place] [address] 11 Jun, 2014 [facility] [address] [id number] [address] [place] [address], [place] [address] 11 Jun, 2014 [facility] [address] [id number] [address] [place] [address], [place] [address] 24 May, 2014 [facility] [address] [id number] [address] [place] [address], [place] [address] May, [facility] [address] [id number] [address] [place] [address], [place] [address] May, [facility] [address] [id number] [address] [place] [address], [place] [address] May, [facility] [address] [id number] [address] [place] [address], [place] [address] May, [facility] [address] [id number] [address] [place] [address], [place] [address] Apr, [facility] [address] [id number] [address] [place] [address], [place] [address] Apr, [facility] [address] [id number] [address] [place] [address], [place] [address] Apr, [facility] [address] [id number] [address] [place] [address], [place] [address] Apr, [facility] [address] [id number] [address] [place] [address], [place] [address] Apr, [facility] [address] [id number] [address] [place] [address], [place] [address] Apr, [facility] [address] [id number] [address] [place] [address], [place] [address] Mar, [facility] [address] [id number] [address] [place] [address], [place] [address] Mar, [facility] [address] [id number] [address] [place] [address], [place] [address] Mar, [facility] [address] [id number] [address] [place] [address], [place] [address] Mar, [facility] [address] [id number] [address] [place] [address], [place] [address] Mar, [facility] [address] [id number] [address] [place] [address], [place] [address] Mar, [facility] [address] [id number] [address] [address], [place] [address] Feb, [facility] [address] [id number] [address] [address], [place] [address] Feb, [facility] [address] [id number] [address] [place] [address], [place] [address] Feb, [facility] [address] [id number] [address] [place] [address], [place] [address] Feb, [facility] [address] [id number] [address] [place] [address], [place] [address] Feb, [facility] [address] [id number] [address] [place] [address], [place] [address] Feb, [facility] [address] [id number] [address] [place] [address], [place] [address] Feb, [facility] [address] [id number] [address] [place] [address], [place] [address] Feb, [facility] [address] [id number] [address] [place] [address], [place] [address] January, [facility] [address] [id number] [address] [address], [place] [address] January, [facility] [address] [id number] [address] [place] [address], [place] [address] January, [facility] [address] [id number] [address] [address], [place] [address] January, [facility] [address] [id number] [address] [place] [address], [place] [address] January, [facility] [address] [id number] [address] [place] [address], [place] [address] January, [facility] [address] [id number] [address] [address], [place] [address] January, [facility] [address] [id number] [address] [place] [address], [place] [address] January, [facility] [address] [id number] [address] [place] [address], [place] [address] Dec, [facility] [address] [id number] [address] [address], [place] [address] Dec, [facility] [address] [id number] [address] [address], [place] [address] Dec, [facility] [address] [id number] [address] [address], [place] [address] Dec, [facility] [address] [id number] [address] [address], [place] [address] Dec, [facility] [address] [id number] [address] [place] [address], [place] [address] Dec, [facility] [address] [id number] [address] [place] [address], [place] [address] Nov, [facility] [address] [id number] [address] [address], [place] [address] Nov, [facility] [address] [id number] [address] [address], [place] [address] Nov, [facility] [address] [id number] [address] [place] [address], [place] [address] Nov, [facility] [address] [id number] [address] [place] [address], [place] [address] Nov, [facility] [address] [id number] [address] [place] [address], [place] [address] Nov, [facility] [address] [id number] [address] [place] [place] [address], [place] [address] Nov, [facility] [address] [id number] [address] [place] [place] [address], [place] [address] Nov, [facility] [address] [id number] [address] [place] [place] [address], [place] [address] Oct, [facility] [address] [id number] [address] [place] [address] Oct, [facility] [address] [id number] [address] [place] [address], [place] [address] Sep, [facility] [address] [id number] [address] [place] [address], [place] [address] Sep, [facility] [address] [id number] [address] [place] [place] [address], [place] [address] Sep, [facility] [address] [id number] [address] [place] [place] [address], [place] [address] Sep, [facility] [address] [id number] [address] [place] [place] [address], [place] [address] Aug, [facility] [address] [id number] [address] [place] [place] [address], [place] [address] Aug, [facility] [address] [id number] [address] [place] [place] [address], [place] [address] Aug, [facility] [address] [id number] [address] [place] [place] [address], [place] [address] Aug, [facility] [address] [id number] [address] [place] [address], [place] [address] Jul, [facility] [address] [id number] [address] [place] [address], [place] [address] Jul, [facility] [address] [id number] [address] [place] [place] [address], [place] [address] Jul, [facility] [address] [id number] [address] [place] [place] [address], [place] [address] Jul, [facility] [address] [id number] [address] [place] [place] [address], [place] [address] Jul, [facility] [address] [id number] [address] [place] [address], [place] [address] Jul, [facility] [address] [id number] [address] [place] [address], [place] [address] Jul, [facility] [address] [id number] [address] [place] [place] [address], [place] [address] 06 Jul, 2013 [facility] [address] [id number] [address] [place] [place] [address], [place] [address] 06 Jul, 2013 [facility] [address] [id number] [address] [place] [place] [address], [place] [address] Jul, [facility] [address] [id number] [address] [place] [place] [address], [place] [address] 05 Jul, 2013 [facility] [address] [id number] [address] [place] [place] [address], [place] [address] Jul, [facility] [address] [id number] [address] [place] [place] [address], [place] [address] Jun, [facility] [address] [id number] [address] [place] [place] [address], [place] [address] Jun, [facility] [address] [id number] [address] [place] [place] [address], [place] [address] Jun, [facility] [address] [id number] [address] [place] [place] [address], [place] [address] Jun, [facility] [address] [id number] [address] [place] [address], [place] [address] 16 Jun, 2013 [facility] [address] [id number] [address] [place] [address], [place] [address] 14 Jun, 2013 [facility] [address] [id number] [address] [place] [place] [address], [place] [address] 14 Jun, 2013 [facility] [address] [id number] [address] [place] [place] [address], [place] [address] 02 Jun, 2013 [facility] [address] [id number] [address] [place] [address], [place] [address] 15 May, 2013 [facility] [address] [id number] [address] [place] [address], [place] [address] 05 Sep2012 [facility] [address] [id number] [address] [place] [address] [address] May, [facility] [address] [id number] [address] [address], [place] [address] Apr, [facility] [address] [id number] [address] [place] [address], [place] [address] Apr, [facility] [address] [id number] [address] [place] [place] [address], [place] [address] Mar, [facility] [address] [id number] [address] [place] [place] [address], [place] [address] Mar, [facility] [address] [id number] [address] [place] [place] [address], [place] [address] Feb, [facility] [address] [id number] [address] [place] [address], [place] [address] January, [facility] [address] [id number] [address] [place] [address], [place] [address] January, [facility] [address] [id number] [address] [place] [address], [place] [address] January, [facility] [address] [id number] [address] [place] [address], [place] [address] January, [facility] [address] [id number] [address] [place] [address], [place] [address] January, [facility] [address] [id number] [address] [place] [address], [place] [address] Dec, [facility] [address] [id number] [address] [place] [place] [address], [place] [address] Dec, [facility] [address] [id number] [address] [place] [place] [address], [place] [address] Dec, [facility] [address] [id number] [address] [place] [place] [address], [place] [address] Nov, [facility] [address] [id number] [address] [place] [place] [address], [place] [address] Oct, [facility] [address] [id number] [address] [place] [address], [place] [address] 18 Oct, 2012 [facility] [address] [id number] [address] [place] [address], [place] [address] 15 Oct, 2012 [facility] [address] [id number] [address] [place] [place] [address], [place] [address] 18 Sep, 2012 [facility] [address] [id number] [address] [place] [address], [place] [address] 16 Sep, 2012 [facility] [address] [id number] [address] [place] [address], [place] [address] 14 Aug, 2012 [facility] [address] [id number] [address] [place] [address], [place] [address] 14 Aug, 2012 [facility] [address] [id number] [address] [place] [address], [place] [address] 11 Aug, 2012 [facility] [address] [id number] [address] [place] [address], [place] [address] Aug, [facility] [address] [id number] [address] [place] [place] [address], [place] [address] Jul, [facility] [address] [id number] [address] [place] [place] [address], [place] [address] Jul, [facility] [address] [id number] [address] [place] [place] [address], [place] [address] Jul, [facility] [address] [id number] [address] [place] [place] [address], [place] [address] Jul, [facility] [address] [id number] [address] [place] [address], [place] [address] Jul, [facility] [address] [id number] [address] [place] [place] [address], [place] [address] 15 Jun, 2012 [facility] [address] [id number] [address] [place] [place] [address], [place] [address] 15 Jun, 2012 [facility] [address] [id number] [address] [place] [place] [address], [place] [address] 10 Jun, 2012 [facility] [address] [id number] [address] [place] [address], [place] [address] 10 Jun, 2012 [facility] [address] [id number] [address] [place] [address], [place] [address] May, [facility] [address] [id number] [address] [place] [address], [place] [address] Apr, [facility] [address] [id number] [address] [place] [place] [address], [place] [address] Apr, [facility] [address] [id number] [address] [place] [place] [address], [place] [address] Apr, [facility] [address] [id number] [address] [place] [place] [address], [place] [address] Apr, [facility] [address] [id number] [address] [place] [address], [place] [address] January, [facility] [address] [id number] [address] [place] [place] [address], [place] [address] January, [facility] [address] [id number] [address] [place] [place] [address], [place] [address] Dec, [facility] [address] [id number] [address] [place] [address], [place] [address] Dec, [facility] [address] [id number] [address] [place] [address], [place] [address] Nov, [facility] [address] [id number] [address] [place] [address], [place] [address] Nov, [facility] [address] [id number] [address] [place] [address], [place] [address] Nov, [facility] [address] [id number] [address] [place] [address], [place] [address] Nov, [facility] [address] [id number] [address] [place] [place] [address], [place] [address] Oct, [facility] [address] [id number] [address] [place] [address] Oct, [facility] [address] [id number] [address] [place] [place] [address], [place] [address] Oct, [facility] [address] [id number] [address] [place] [address], [place] [address] Sep, [facility] [address] [id number] [address] [place] [address], [place] [address] Sep, [facility] [address] [id number] [address] [place] [address], [place] [address] Aug, [facility] [address] [id number] [address] [place] [address], [place] [address] Aug, [facility] [address] [id number] [address] [place] [address], [place] [address] Jul, [facility] [address] [id number] [address] [place] [place] [address], [place] [address] Jul, [facility] [address] [id number] [address] [place] [place] [address], [place] [address] Jul, [facility] [address] [id number] [address] [place] [place] [address], [place] [address] Jun, [facility] [address] [id number] [address] [place] [address], [place] [address] Jun, [facility] [address] [id number] [address] [place] [address], [place] [address] Jun, [facility] [address] [id number] [address] [place] [address] Jun, [facility] [address] [id number] [address] [place] [place] [address], [place] [address] Jun, [facility] [address] [id number] [address] [place] [address], [place] [address] Jun, [facility] [address] [id number] [address] [place] [address] Aug, [facility] [address] [id number] [address] [place] [place] [address], [place] [address] 12 Aug, 2010 [facility] [address] [id number] [address] [place] [address], [place] [address] 08 Aug, 2010 [facility] [address] [id number] [address] [place] [place] [address], [place] [address] 29 Jul, 2010 [facility] [address] [id number] [address] [place] [place] [address], [place] [address] 27 Jul, 2010 [facility] [address] [id number] [address] [place] [address], [place] [address] Jul, [facility] [address] [id number] [address] [place] [place] [address], [place] [address] 15 Jul, 2010 [facility] [address] [id number] [address] [place] [address], [place] [address] Jul, [facility] [address] [id number] [address] [place] [place] [address], [place] [address] Jul, [facility] [address] [id number] [address] [place] [address], [place] [address] Jun, [facility] [address] [id number] [address] [place] [place] [address], [place] [address] Apr, [facility] [address] [id number] [address] [place] [place] [address], [place] [address] Feb, [facility] [address] [id number] [address] [place] [place] [address], [place] [address] Oct, [facility] [address] [id number] [address] [place] [address], [place] [address] Sep, [facility] [address] [id number] [address] [place] [address], [place] [address] Aug, [facility] [address] [id number] [address] [place] [address], [place] [address] 18 Aug, 2009 [facility] [address] [id number] [address] [place] [address] Aug, [facility] [address] [facility] [id number] [address] [place] [address] Jul, [facility] [address] [facility] [id number] [address] [place] [address] Jun, IMMUNIZATIONS No Known Immunizations SOCIAL HISTORY [...]
--- OUTSIDE RECORDS SUMMARY | 2020-02-22 17:24 | XMS REPORT ---
Author Author Marion SILVA Organization [facility] Address [address] [place] [address] Care Team Providers Care Material Flow Engineer Name Role Phone RICARDO JOSE Unavailable PROBLEMS Type Condition ICD9-CM Code [id number] Code Onset Dates Condition S tatus SNOMED Code Problem Migraine without aura and without status migrain osus, not intractable G43.009 Active 636658458 Problem Acquired hypothyroidism E03.9 Active 098519105 Problem Cervical disc disease M50.90 Active 779823981 Problem Dyspepsia R10.13 Active [id number] ALLERGIES No Information ENCOUNTERS Encounter Location Date Diagnosis [facility] [address] [facility] [id number] [address] [place] [address] Feb, [address] [address] Feb, Cervical disc disease M50.[address] [address] January, [facility] [address] [facility] [id number] [address] [place] [address] January, Cervical disc disease M50.90 [facility] [address] [facility] [id number] [address] [place] [address] January, Cervical disc disease M50.90 [facility] [address] [facility] [id number] [address] [place] [address] Dec, Cervical disc disease M50.90 [facility] [address] [facility] [id number] [address] [place] [address] Dec, Cervical disc disease M50.90 [facility] [address] [facility] [id number] [address] [place] [address] Dec, Cervical disc disease M50.90 [facility] [address] [facility] [id number] [address] [place] [address] Dec, Cervical disc disease M50.90 ; Acquired hypothyroidism E03.9 and Migraine without aura and without status migrainosus, not intractable G43.009 [facility] [address] [id number] [address] [place] [address] Nov, [facility] [address] [facility] [id number] [address] [place] [address] Nov, Cervical disc disease M50.90 [facility] [address] [facility] [id number] [address] [place] [address] Oct, Cervical disc disease M50.90 [facility] [address] [facility] [id number] [address] [place] [address] Sep, [facility] [address] [facility] [id number] [address] [place] [address] Sep, Cervical disc disease M50.90 [facility] [address] [facility] [id number] [address] [place] [address] Aug, Cervical disc disease M50.90 [facility] [address] [facility] [id number] [address] [place] [address] Jul, Cervical disc disease M50.90 [facility] [address] [facility] [id number] [address] [place] [address] Jun, Acute recurrent pansinusitis J01.41 and Cervical disc disease M50.90 [facility] [address] [facility] [id number] [address] [place] [address] Jun, Cervical disc disease M50.90 [facility] [address] [facility] [id number] [address] [place] [address] May, Cervical disc disease M50.90 [facility] [address] [facility] [id number] [address] [place] [address] Apr, Cervical disc disease M50.90 [facility] [address] [id number] [address] [place] [address] Mar, Cervical disc disease M50.90 [facility] [address] [id number] [address] [place] [address] Mar, [facility] [address] [id number] [address] [place] [address] Mar, Cervical disc disease M50.90 [facility] [address] [id number] [address] [place] [address] Feb, Cervical disc disease M50.90 [facility] [address] [id number] [address] [place] [address] January, Cervical disc disease M50.90 [facility] [address] [id number] [address] [place] [address] Dec, [facility] [address] [id number] [address] [place] [address] Dec, Cervical disc disease M50.90 [facility] [address] [id number] [address] [place] [address] Nov, Cervical disc disease M50.90 [facility] [address] [id number] [address] [place] [address] Nov, Cervical disc disease M50.90 [facility] [address] [id number] [address] [place] [address] Oct, Cervical disc disease M50.90 [facility] [address] [id number] [address] [place] [address] Oct, Cervical disc disease M50.90 and Acute non-recurrent maxillary sinusitis J01.00 [facility] [address] [id number] [address] [place] [address] Sep, Cervical disc disease M50.90 [facility] [address] [id number] [address] [place] [address] Sep, [facility] [address] [facility] [id number] [address] [place] [address] Sep, Fatigue, unspecified type R5 3.83 and Cough R05 [facility] [address] [facility] [id number] [address] [place] [address] Aug, Cervical disc disease M50.90 [facility] [address] [facility] [id number] [address] [place] [address] Aug, Sore throat J02.9 ; Canker s ore K12.0 and History of anemia Z86.2 [facility] [address] [facility] [id number] [address] [place] [address] Jul, Cervical disc disease M50.90 [facility] [address] [facility] [id number] [address] [place] [address] Jun, Cervical disc disease M50.90 [facility] [address] [place] [id number] [address] [place] [address] Jun, Cervical disc disease M50.90 [facility] [address] [facility] [id number] [address] [place] [address] May, Cervical disc disease M50.90 [facility] [address] [facility] [id number] [address] [place] [address] Apr, Cervical disc disease M50.90 [facility] [address] [facility] [id number] [address] [place] [address] Apr, [facility] [address] [facility] [id number] [address] [place] [address] Feb, Cervical disc disease M50.90 [facility] [address] [facility] [id number] [address] [place] [address] January, Cervical disc disease M50.90 [facility] [address] [facility] [id number] [address] [place] [address] Nov, [facility] [address] [facility] [id number] [address] [place] [address] Nov, Cervical disc disease M50.90 [facility] [address] [id number] [address] [place] [address] Nov, Acute cystitis with hematuri a N30.01 and Dysuria R30.0 [facility] [address] [id number] [address] [place] [address] Oct, Cervical disc disease M50.90 and Acute non-recurrent frontal sinusitis J01.10 [facility] [address] [id number] [address] [place] [address] Sep, Neck pain M54.2 [facility] [address] [id number] [address] [place] [address] Sep, [facility] [address] [id number] [address] [place] [address] Aug, Cervical disc disease M50.90 [facility] [address] [id number] [address] [place] [address] Jul, [facility] [address] [id number] [address] [place] [address] Jun, [facility] [address] [id number] [address] [place] [address] May, [facility] [address] [id number] [address] [place] [address] May, Screening for diabetes melli tus Z13.1 ; Chronic fatigue R53.82 and Edema, unspecified type R60.9 [facility] [address] [id number] [address] [place] [address] Apr, Neck pain M54.2 [facility] [address] [id number] [address] [place] [address] Mar, [facility] [address] [id number] [address] [place] [address] Mar, Neck pain M54.2 [facility] [address] [id number] [address] [place] [address] Feb, Cervical disc disease M50.90 [facility] [address] [id number] [address] [place] [address] Feb, Cervical disc disease M50.90 [facility] [address] [id number] [address] [place] [address] January, [facility] [address] [id number] [address] [place] [address] January, [facility] [address] [id number] [address] [place] [address] January, Cervical disc disease M50.90 [facility] [address] [id number] [address] [place] [address] January, [facility] [address] [id number] [address] [place] [address] January, [facility] [address] [id number] [address] [place] [address] Dec, Cervical disc disease M50.90 [facility] [address] [id number] [address] [place] [address] Nov, Cervical disc disease M50.90 [facility] [address] [id number] [address] [place] [address] Oct, Cervical disc disease M50.90 [facility] [address] [id number] [address] [place] [address] Sep, Cervical disc disease M50.90 [facility] [address] [id number] [address] [place] [id number] Aug, Dental caries K02.9 and Enco unter for dental examination Z01.20 [facility] [address] [id number] [address] [place] [address] Aug, [facility] [address] [id number] [address] [place] [address] Aug, [facility] [address] [id number] [address] [place] [id number] Aug, Encounter for dental examina tion Z01.20 [facility] [address] [id number] [address] [place] [address] Jul, [facility] [address] [id number] [address] [place] [address] Jun, Sinusitis J32.9 and Cervical disc disease M50.90 [facility] [address] [id number] [address] [place] [address] Jun, [facility] [address] [id number] [address] [place] [address] 24 May, 2015 [facility] [address] [id number] [address] [place] [address] May, [facility] [address] [id number] [address] [place] [address] May, [facility] [address] [id number] [address] [place] [address] May, [facility] [address] [id number] [address] [place] [address] Apr, Cervical spondylosis without myelopathy 721.0 [facility] [address] [id number] [address] [place] [address] Mar, [facility] [address] [id number] [address] [place] [address] January, Cervical spondylosis without myelopathy 721.0 [facility] [address] [id number] [address] [place] [address] Dec, [facility] [address] [id number] [address] [place] [id number] 14 Dec, 2014 [facility] [address] [id number] [address] [place] [address] 13 Dec, 2014 [facility] [address] [id number] [facility] [address] Nov, [facility] [address] [id number] [address] [place] [address], [place] [address] Nov, [facility] [address] [id number] [address] [place] [address], [place] [address] Oct, 2014 [facility] [address] [id number] [address] [place] [address], [place] [address] Oct, [facility] [address] [id number] [address] [place] [address], [place] [address] Oct, 2014 [facility] [address] [id number] [address] [place] [address], [place] [address] Oct, 2014 [facility] [address] [id number] [address] [place] [address], [place] [address] Oct, 2014 [facility] [address] [id number] [address] [place] [address], [place] [address] Oct, 2014 [facility] [address] [id number] [address] [place] [address], [place] [address] Oct, [facility] [address] [id number] [address] [place] [address], [place] [address] Oct, [facility] [address] [id number] [address] [place] [address], [place] [address] Oct, [facility] [address] [id number] [address] [place] [address], [place] [address] Oct, [facility] [address] [id number] [address] [place] [address], [place] [address] Sep, [facility] [address] [id number] [address] [place] [address], [place] [address] Sep, [facility] [address] [id number] [address] [place] [address], [place] [address] Sep, [facility] [address] [id number] [address] [place] [address], [place] [address] Sep, [facility] [address] [id number] [address] [place] [address], [place] [address] Sep, [facility] [address] [id number] [address] [place] [address], [place] [address] Sep, [facility] [address] [id number] [address] [place] [address], [place] [address] Sep, [facility] [address] [id number] [address] [place] [address], [place] [address] Sep, [facility] [address] [id number] [address] [place] [address], [place] [address] Sep, [facility] [address] [id number] [address] [place] [address], [place] [address] Aug, [facility] [address] [id number] [address] [place] [address], [place] [address] Aug, [facility] [address] [id number] [address] [place] [address], [place] [address] Aug, [facility] [address] [id number] [address] [place] [address], [place] [address] Aug, [facility] [address] [id number] [address] [place] [address], [place] [address] Jul, [facility] [address] [id number] [address] [place] [address], [place] [address] Jul, [facility] [address] [id number] [address] [place] [address], [place] [address] Jul, [facility] [address] [id number] [address] [place] [address], [place] [address] Jul, [facility] [address] [id number] [address] [place] [address], [place] [address] Jul, [facility] [address] [id number] [address] [place] [address], [place] [address] Jul, [facility] [address] [id number] [address] [place] [address], [place] [address] Jul, [facility] [address] [id number] [address] [place] [address], [place] [address] Jul, [facility] [address] [id number] [address] [place] [address], [place] [address] 27 Jun, 2014 [facility] [address] [id number] [address] [place] [address], [place] [address] 27 Jun, 2014 [facility] [address] [id number] [address] [place] [address], [place] [address] 20 Jun, 2014 [facility] [address] [id number] [address] [place] [address], [place] [address] 20 Jun, 2014 [facility] [address] [id number] [address] [place] [address], [place] [address] 16 Jun, 2014 [facility] [address] [id number] [address] [place] [address], [place] [address] 15 Jun, 2014 [facility] [address] [id number] [address] [place] [address], [place] [address] 15 Jun, 2014 [facility] [address] [id number] [address] [place] [address], [place] [address] 14 Jun, 2014 [facility] [address] [id number] [address] [place] [address], [place] [address] 14 Jun, 2014 [facility] [address] [id number] [address] [place] [address], [place] [address] 11 Jun, 2014 [facility] [address] [id number] [address] [place] [address], [place] [address] 11 Jun, 2014 [facility] [address] [id number] [address] [place] [address], [place] [address] 24 May, 2014 [facility] [address] [id number] [address] [place] [address], [place] [address] 24 May, 2014 [facility] [address] [id number] [address] [place] [address], [place] [address] May, [facility] [address] [id number] [address] [place] [address], [place] [address] May, [facility] [address] [id number] [address] [place] [address], [place] [address] May, [facility] [address] [id number] [address] [place] [address], [place] [address] Apr, [facility] [address] [id number] [address] [place] [address], [place] [address] Apr, [facility] [address] [id number] [address] [place] [address], [place] [address] Apr, [facility] [address] [id number] [address] [place] [address], [place] [address] Apr, [facility] [address] [id number] [address] [place] [address], [place] [address] Apr, [facility] [address] [id number] [address] [place] [address], [place] [address] Apr, [facility] [address] [id number] [address] [place] [address], [place] [address] Mar, [facility] [address] [id number] [address] [place] [address], [place] [address] Mar, [facility] [address] [id number] [address] [place] [address], [place] [address] Mar, [facility] [address] [id number] [address] [place] [address], [place] [address] Mar, [facility] [address] [id number] [address] [place] [address], [place] [address] Mar, [facility] [address] [id number] [address] [place] [address], [place] [address] Mar, [facility] [address] [id number] [address] [place] [address], [place] [address] Feb, [facility] [address] [id number] [address] [place] [address], [place] [address] Feb, [facility] [address] [id number] [address] [place] [address], [place] [address] Feb, [facility] [address] [id number] [address] [place] [address], [place] [address] Feb, [facility] [address] [id number] [address] [place] [address], [place] [address] Feb, [facility] [address] [id number] [address] [place] [address], [place] [address] Feb, [facility] [address] [id number] [address] [place] [address], [place] [address] Feb, [facility] [address] [id number] [address] [place] [address], [place] [address] Feb, [facility] [address] [id number] [address] [place] [address], [place] [address] January, [facility] [address] [id number] [address] [place] [address], [place] [address] January, [facility] [address] [id number] [address] [place] [address], [place] [address] January, [facility] [address] [id number] [address] [place] [address], [place] [address] January, [facility] [address] [id number] [address] [place] [address], [place] [address] January, [facility] [address] [id number] [address] [place] [address], [place] [address] January, [facility] [address] [id number] [address] [place] [address], [place] [address] January, [facility] [address] [id number] [address] [place] [address], [place] [address] January, [facility] [address] [id number] [address] [place] [address], [place] [address] Dec, [facility] [address] [id number] [facility] [address] Dec, [facility] [address] [id number] [address] [place] [address], [place] [address] Dec, [facility] [address] [id number] [address] [place] [address], [place] [address] Dec, [facility] [address] [id number] [address] [place] [address], [place] [address] Dec, [facility] [address] [id number] [address] [place] [address], [place] [address] Dec, [facility] [address] [id number] [address] [place] [address], [place] [address] Nov, [facility] [address] [id number] [address] [place] [address], [place] [address] Nov, [facility] [address] [id number] [address] [place] [address], [place] [address] Nov, [facility] [address] [id number] [address] [place] [address], [place] [address] Nov, [facility] [address] [id number] [address] [place] [address], [place] [address] Nov, [facility] [address] [id number] [address] [place] [address], [place] [address] Nov, [facility] [address] [id number] [address] [place] [address], [place] [address] Nov, [facility] [address] [id number] [address] [place] [address], [place] [address] Nov, [facility] [address] [id number] [address] [place] [address], [place] [address] Oct, [facility] [address] [id number] [address] [place] [address], [place] [address] Oct, [facility] [address] [id number] [address] [place] [address], [place] [address] Sep, [facility] [address] [id number] [address] [place] [address], [place] [address] Sep, [facility] [address] [id number] [address] [place] [address], [place] [address] Sep, [facility] [address] [id number] [address] [place] [address], [place] [address] Sep, [facility] [address] [id number] [address] [place] [address], [place] [address] Aug, [facility] [address] [id number] [address] [place] [address], [place] [address] Aug, [facility] [address] [id number] [address] [place] [address], [place] [address] Aug, [facility] [address] [id number] [address] [place] [address], [place] [address] Aug, [facility] [address] [id number] [address] [place] [address], [place] [address] Jul, [facility] [address] [id number] [address] [place] [address], [place] [address] Jul, [facility] [address] [id number] [address] [place] [address], [place] [address] Jul, [facility] [address] [id number] [address] [place] [address], [place] [address] Jul, [facility] [address] [id number] [address] [place] [address], [place] [address] Jul, [facility] [address] [id number] [address] [place] [address], [place] [address] Jul, [facility] [address] [id number] [address] [place] [address], [place] [address] Jul, [facility] [address] [id number] [address] [place] [address], [place] [address] Jul, [facility] [address] [id number] [address] [place] [address], [place] [address] 06 Jul, 2013 [facility] [address] [id number] [address] [place] [address], [place] [address] 05 Jul, 2013 [facility] [address] [id number] [address] [place] [address], [place] [address] 05 Jul, 2013 [facility] [address] [id number] [address] [place] [address], [place] [address] Jul, [facility] [address] [id number] [address] [place] [address], [place] [address] Jun, [facility] [address] [id number] [address] [place] [address], [place] [address] Jun, [facility] [address] [id number] [address] [place] [address], [place] [address] Jun, [facility] [address] [id number] [address] [place] [address], [place] [address] Jun, [facility] [address] [id number] [address] [place] [address], [place] [address] 16 Jun, 2013 [facility] [address] [id number] [address] [place] [address], [place] [address] 14 Jun, 2013 [facility] [address] [id number] [address] [place] [address], [place] [address] 14 Jun, 2013 [facility] [address] [id number] [address] [place] [address], [place] [address] 02 Jun, 2013 [facility] [address] [id number] [address] [place] [address], [place] [address] 15 May, 2013 [facility] [address] [id number] [address] [place] [address], [place] [address] 05 Sep, 2012 [facility] [address] [id number] [address] [place] [address] 04 May, 2013 [facility] [address] [id number] [address] [place] [address] Apr, [facility] [address] [id number] [address] [place] [address], [place] [address] Apr, [facility] [address] [id number] [address] [place] [address], [place] [address] Mar, [facility] [address] [id number] [address] [place] [address], [place] [address] Mar, [facility] [address] [id number] [address] [place] [address], [place] [address] Feb, [facility] [address] [id number] [address] [place] [address], [place] [address] January, [facility] [address] [id number] [address] [place] [address], [place] [address] January, [facility] [address] [id number] [address] [place] [address], [place] [address] January, [facility] [address] [id number] [address] [place] [address], [place] [address] January, [facility] [address] [id number] [address] [place] [address], [place] [address] January, [facility] [address] [id number] [address] [place] [address], [place] [address] Dec, [facility] [address] [id number] [address] [place] [address], [place] [address] Dec, [facility] [address] [id number] [address] [place] [address], [place] [address] Dec, [facility] [address] [id number] [address] [place] [address], [place] [address] Nov, [facility] [address] [id number] [address] [place] [address], [place] [address] Oct, [facility] [address] [id number] [address] [place] [address], [place] [address] Oct, [facility] [address] [id number] [address] [place] [address], [place] [address] 15 Oct, 2012 [facility] [address] [id number] [address] [place] [address], [place] [address] 18 Sep, 2012 [facility] [address] [id number] [address] [place] [address], [place] [address] 16 Sep, 2012 [facility] [address] [id number] [address] [place] [address], [place] [address] 14 Aug, 2012 [facility] [address] [id number] [address] [place] [address], [place] [address] 14 Aug, 2012 [facility] [address] [id number] [address] [place] [address], [place] [address] Aug, [facility] [address] [id number] [address] [place] [address], [place] [address] Aug, [facility] [address] [id number] [address] [place] [address], [place] [address] Jul, [facility] [address] [id number] [address] [place] [address], [place] [address] Jul, [facility] [address] [id number] [address] [place] [address], [place] [address] Jul, [facility] [address] [id number] [address] [place] [address], [place] [address] Jul, [facility] [address] [id number] [address] [place] [address], [place] [address] Jul, [facility] [address] [id number] [address] [place] [address], [place] [address] 15 Jun, 2012 [facility] [address] [id number] [address] [place] [address], [place] [address] 15 Jun, 2012 [facility] [address] [id number] [address] [place] [address], [place] [address] 10 Jun, 2012 [facility] [address] [id number] [address] [place] [address], [place] [address] Jun, [facility] [address] [id number] [address] [place] [address], [place] [address] May, [facility] [address] [id number] [address] [place] [address], [place] [address] Apr, [facility] [address] [id number] [address] [place] [address], [place] [address] Apr, [facility] [address] [id number] [address] [place] [address], [place] [address] Apr, [facility] [address] [id number] [address] [place] [address], [place] [address] Apr, [facility] [address] [id number] [address] [place] [address], [place] [address] January, [facility] [address] [id number] [address] [place] [address], [place] [address] January, [facility] [address] [id number] [address] [place] [address], [place] [address] Dec, [facility] [address] [id number] [address] [place] [address], [place] [address] Dec, [facility] [address] [id number] [address] [place] [address], [place] [address] Nov, [facility] [address] [id number] [address] [place] [address], [place] [address] Nov, [facility] [address] [id number] [address] [place] [address], [place] [address] Nov, [facility] [address] [id number] [address] [place] [address], [place] [address] Nov, [facility] [address] [id number] [address] [place] [address], [place] [address] Oct, [facility] [address] [id number] [address] [place] [address], [place] [address] Oct, [facility] [address] [id number] [address] [place] [address], [place] [address] Oct, [facility] [address] [id number] [address] [place] [address], [place] [address] Sep, [facility] [address] [id number] [address] [place] [address], [place] [address] Sep, [facility] [address] [id number] [address] [place] [address], [place] [address] Aug, [facility] [address] [id number] [address] [place] [address], [place] [address] Aug, [facility] [address] [id number] [address] [place] [address], [place] [address] Jul, [facility] [address] [id number] [address] [place] [address], [place] [address] Jul, [facility] [address] [id number] [address] [place] [address], [place] [address] Jul, [facility] [address] [id number] [address] [place] [address], [place] [address] Jun, [facility] [address] [id number] [address] [place] [address], [place] [address] Jun, [facility] [address] [id number] [address] [place] [address], [place] [address] Jun, [facility] [address] [id number] [address] [place] [address], [place] [address] Jun, [facility] [address] [id number] [address] [place] [address], [place] [address] Jun, [facility] [address] [id number] [address] [place] [address], [place] [address] Jun, [facility] [address] [id number] [address] [place] [address], [place] [address] Aug, [facility] [address] [id number] [address] [place] [address], [place] [address] Aug, [facility] [address] [id number] [address] [place] [address], [place] [address] 08 Aug, 2010 [facility] [address] [id number] [address] [place] [address], [place] [address] 29 Jul, 2010 [facility] [address] [id number] [address] [place] [address], [place] [address] 27 Jul, 2010 [facility] [address] [id number] [address] [place] [address], [place] [address] Jul, [facility] [address] [id number] [address] [place] [address], [place] [address] 15 Jul, 2010 [facility] [address] [id number] [address] [place] [address], [place] [address] 15 Jul, 2010 [facility] [address] [id number] [address] [place] [address], [place] [address] Jul, [facility] [address] [id number] [address] [place] [address], [place] [address] Jun, [facility] [address] [id number] [address] [place] [address], [place] [address] Apr, [facility] [address] [id number] [address] [place] [address], [place] [address] 11 Feb, 2010 [facility] [address] [id number] [address] [place] [address], [place] [address] 10 Oct, 2009 [facility] [address] [id number] [address] [place] [address], [place] [address] 13 Sep, 2009 [facility] [address] [id number] [address] [place] [address], [place] [address] 18 Aug, 2009 [facility] [address] [id number] [address] [place] [address], [place] [address] 18 Aug, 2009 [facility] [address] [id number] [address] [place] [address], [place] [address] 05 Aug, 2009 [facility] [address] [id number] [address] [place] [address], [place] [address] Jul, [facility] [address] [facility] [id number] [address] [address] Jun, IMMUNIZATIONS No Known Immunizations SOCIAL HISTORY Never Assessed REASON FOR VISIT PLAN OF CARE VITAL SIGNS Height 65 in 2014-09-28 Weight 179 lbs 2014-09-28 Temperature 98.9 degrees Fahrenheit 2014-09-28 Heart Rate 96 bpm 2014-09-28 Respiratory Rate 18 2014-09-28 Blood pressure systolic 144 mmHg 2014-09-28 Blood pressure diastolic 92 mmHg 2014-09-28 MEDICATIONS Unknown Medications RESULTS No Results PROCEDURES Procedure Date Ordered Result Body Site COMPLETE CBC W/AUTO DIFF WBC Sep 28, 2014 VENIPUNCT, ROUTINE* Sep 28, 2014 INSTRUCTIONS MEDICATIONS ADMINISTERED No Known Medications [...]
--- OUTSIDE RECORDS SUMMARY | 2020-02-22 17:24 | XMS REPORT ---
Author Author Marion TRUJILLO Organization [facility] Address [address] [place] [address] Care Team Providers Care Metal Room Dental Technician Name Role Phone ZACKARY TRUJILLO Unavailable PROBLEMS Type Condition ICD9-CM Code BSY55-BJ Code Onset Dates Condition S tatus SNOMED Code Problem Migraine without aura and without status migrain osus, not intractable G43.009 Active 540466298 Problem Acquired hypothyroidism E03.9 Active 879529734 Problem Cervical disc disease M50.90 Active 941764937 Problem Dyspepsia R10.13 Active [id number] ALLERGIES No Information ENCOUNTERS Encounter Location Date Diagnosis [facility] [address] [facility] [place] [id number] [address] [place] [phone] Mar, Cervical disc disease M50.90 [facility] [address] [facility] [place] [facility] [id number] [address] [place] [phone] Feb, [address] [address] Feb, Cervical disc disease M50.[address] [address] January, [facility] [address] [facility] [place] [id number] [address] [place] [id number] January, Cervical disc disease M50.90 [facility] [address] [facility] [place] [facility] [id number] [address] [place] [phone] January, Cervical disc disease M50.90 [facility] [address] [facility] [place] [facility] [id number] [address] [place] [phone] Dec, Cervical disc disease M50.90 [facility] [address] [facility] [place] [facility] [id number] [address] [place] [id number] Dec, Cervical disc disease M50.90 [facility] [address] [facility] [place] [facility] [id number] [address] [place] [phone] Dec, Cervical disc disease M50.90 [facility] [address] [facility] [place] [facility] [id number] [address] [place] [id number] Dec, Cervical disc disease M50.90 ; Acquired hypothyroidism E03.9 and Migraine without aura and without status migrainosus, not intractable G43.009 [facility] [address] [id number] [address] [place] [id number] Nov, [facility] [address] [facility] [place] [facility] [id number] [address] [place] [id number] Nov, Cervical disc disease M50.90 [facility] [address] [facility] [place] [facility] [id number] [address] [place] [phone] Oct, Cervical disc disease M50.90 [facility] [address] [facility] [place] [facility] [id number] [address] [place] [id number] Sep, [facility] [address] [facility] [place] [id number] [address] [place] [phone] Sep, Cervical disc disease M50.90 [facility] [address] [place] [id number] [address] [place] [id number] Aug, Cervical disc disease M50.90 [facility] [address] [facility] [place] [facility] [id number] [address] [place] [phone] Jul, Cervical disc disease M50.90 [facility] [address] [facility] [place] [facility] [id number] [address] [place] [phone] Jun, Acute recurrent pansinusitis J01.41 and Cervical disc disease M50.90 [facility] [address] [facility] [place] [facility] [id number] [address] [place] [phone] 24 Jun, 2018 Cervical disc disease M50.90 [facility] [address] [facility] [place] [facility] [id number] [address] [place] [phone] May, Cervical disc disease M50.90 [facility] [address] [id number] [address] [place] [phone] Apr, Cervical disc disease M50.90 [facility] [address] [id number] [address] [place] [phone] Mar, Cervical disc disease M50.90 [facility] [address] [id number] [address] [place] [phone] Mar, [facility] [address] [id number] [address] [place] [id number] Mar, Cervical disc disease M50.90 [facility] [address] [id number] [address] [place] [phone] Feb, Cervical disc disease M50.90 [facility] [address] [id number] [address] [place] [address] January, Cervical disc disease M50.90 [facility] [address] [id number] [address] [place] [id number] Dec, [facility] [address] [id number] [address] [place] [phone] Dec, Cervical disc disease M50.90 [facility] [address] [id number] [address] [place] [id number] Nov, Cervical disc disease M50.90 [facility] [address] [id number] [address] [place] [phone] Nov, Cervical disc disease M50.90 [facility] [address] [id number] [address] [place] [phone] Oct, Cervical disc disease M50.90 [facility] [address] [id number] [address] [place] [address] Oct, Cervical disc disease M50.90 and Acute non-recurrent maxillary sinusitis J01.00 [facility] [address] [id number] [address] [place] [address] Sep, Cervical disc disease M50.90 [facility] [address] [facility] [place] [facility] [id number] [address] [place] [phone] Sep, [facility] [address] [facility] [place] [facility] [id number] [address] [place] [phone] Sep, Fatigue, unspecified type R5 3.[address] [facility] [address] [facility] [place] [facility] [id number] [address] [place] [phone] Aug, Cervical disc disease M50.90 [facility] [address] [facility] [place] [facility] [id number] [address] [place] [phone] Aug, Sore throat J02.9 ; Canker s ore K12.0 and History of anemia Z86.2 [facility] [address] [facility] [place] [facility] [id number] [address] [place] [phone] Jul, Cervical disc disease M50.90 [facility] [address] [facility] [place] [facility] [id number] [address] [place] [phone] Jun, Cervical disc disease M50.90 [facility] [address] [facility] [place] [facility] [id number] [address] [place] [phone] Jun, Cervical disc disease M50.90 [facility] [address] [facility] [place] [facility] [id number] [address] [place] [phone] May, Cervical disc disease M50.90 [facility] [address] [facility] [place] [facility] [id number] [address] [place] [address] Apr, Cervical disc disease M50.90 [facility] [address] [facility] [place] [facility] [id number] [address] [place] [phone] Apr, [facility] [address] [facility] [place] [id number] [address] [place] [phone] Feb, Cervical disc disease M50.90 [facility] [address] [facility] [place] [id number] [address] [place] [phone] January, Cervical disc disease M50.90 [facility] [address] [facility] [place]] [id number] [address] [place] [phone] Nov, [facility] [address] [id number] [address] [place] [phone] Nov, Cervical disc disease M50.90 [facility] [address] [id number] [address] [place] [phone] Nov, Acute cystitis with hematuri a N30.[address] [facility] [address] [id number] [address] [place] [phone] Oct, Cervical disc disease M50.90 and Acute non-recurrent frontal sinusitis J01.10 [facility] [address] [facility] [place] [facility] [id number] [address] [place] [phone] Sep, Neck pain M54.2 [facility] [address] [facility] [place] [facility] [id number] [address] [place] [phone] Sep, [facility] [address] [facility] [place] [facility] [id number] [address] [place] [phone] Aug, Cervical disc disease M50.90 [facility] [address] [id number] [address] [place] [phone] Jul, [facility] [address] [place] [id number] [address] [place] [phone] Jun, [facility] [address] [facility] [place] [facility]] [id number] [address] [place] [phone] May, [facility] [address] [place] [id number] [address] [place] [phone] May, Screening for diabetes blanchei tus Z13.1 ; Chronic fatigue R53.82 and Edema, unspecified type R60.9 [facility] [address] [id number] [address] [place] [phone] Apr, Neck pain M54.2 [facility] [address] [facility] [place] [facility] [id number] [address] [place] [phone] Mar, [facility] [address] [place] [id number] [address] [place] [id number] Mar, Neck pain M54.2 [facility] [address] [id number] [address] [place] [phone] Feb, Cervical disc disease M50.90 [facility] [address] [id number] [address] [place] [phone] Feb, Cervical disc disease M50.90 [facility] [address] [id number] [address] [place] [phone] January, [facility] [address] [id number] [address] [place] [phone] January, [facility] [address] [id number] [address] [place] [phone] January, Cervical disc disease M50.90 [facility] [address] [id number] [address] [place] [phone] January, [facility] [address] [id number] [address] [place] [phone] January, [facility] [address] [id number] [address] [place] [phone] Dec, Cervical disc disease M50.90 [facility] [address] [id number] [address] [place] [phone] Nov, Cervical disc disease M50.90 [facility] [address] [id number] [address] [place] [phone] Oct, Cervical disc disease M50.90 [facility] [address] [id number] [address] [place] [phone] Sep, Cervical disc disease M50.90 [facility] [address] [id number] [address] [place] [id number] Aug, Dental caries K02.9 and Enco unter for dental examination Z01.20 [facility] [address] [id number] [address] [place] [phone] Aug, [facility] [address] [id number] [address] [place] [phone] Aug, [facility] [address] [id number] [address] [place] [address] [id number] Aug, Encounter for dental examina tion Z01.20 [facility] [address] [id number] [address] [place] [phone] Jul, [facility] [address] [id number] [address] [place] [phone] Jun, Sinusitis J32.9 and Cervical disc disease M50.90 [facility] [address] [id number] [address] [place] [phone] Jun, [facility] [address] [id number] [address] [place] [phone] May, [facility] [address] [id number] [address] [place] [phone] May, [facility] [address] [id number] [address] [place] [phone] May, [facility] [address] [id number] [address] [place] [phone] May, [facility] [address] [id number] [address] [place] [phone] Apr, Cervical spondylosis without myelopathy 721.0 [facility] [address] [id number] [address] [place] [phone] Mar, [facility] [address] [id number] [address] [place] [phone] January, Cervical spondylosis without myelopathy 721.0 [facility] [address] [id number] [address] [place] [phone] Dec, [facility] [address] [id number] [address] [place] [phone] Dec, [facility] [address] [id number] [address] [place] [address], [place] [id number] 13 Dec, 2014 [facility] [address] [id number] [address] [place] [address], [place] [address] Nov, [facility] [address] [id number] [address] [place] [address], [place] [address] Nov, [facility] [address] [id number] [address] [place] [address], [place] [address] Oct, [facility] [address] [id number] [address] [place] [address], [place] [address] Oct, [facility] [address] [id number] [address] [place] [address], [place] [address] Oct, [facility] [address] [id number] [address] [place] [address], [place] [address] Oct, [facility] [address] [id number] [address] [place] [phone] Oct, [facility] [address] [id number] [address] [place] [address], [place] [address] Oct, [facility] [address] [id number] [address] [place] [address], [place] [address] Oct, [facility] [address] [id number] [address] [place] [address], [place] [address] Oct, 2014 [facility] [address] [id number] [address] [place] [phone] Oct, [facility] [address] [id number] [address] [place] [address], [place] [address] Oct, [facility] [address] [id number] [address] [place] [address], [place] [address] Sep, [facility] [address] [id number] [address] [place] [address], [place] [id number] Sep, [facility] [address] [id number] [address] [place] [address], [place] [address] Sep, [facility] [address] [id number] [address] [place] [address], [place] [address] Sep, [facility] [address] [id number] [address] [place] [address], [place] [address] Sep, [facility] [address] [id number] [address] [place] [address], [place] [address] Sep, [facility] [address] [id number] [address] [place] [address], [place] [address] Sep, [facility] [address] [id number] [address] [place] [address], [place] [address] Sep, [facility] [address] [id number] [address] [place] [address], [place] [address] Sep, [facility] [address] [id number] [address] [place] [address], [place] [id number] Aug, [facility] [address] [id number] [address] [place] [address], [place] [address] Aug, [facility] [address] [id number] [address] [place] [address], [place] [address] Aug, [facility] [address] [id number] [address] [place] [address], [place] [address] Aug, [facility] [address] [id number] [address] [place] [address], [place] [address] Jul, [facility] [address] [id number] [address] [place] [address], [place] [address] Jul, [facility] [address] [id number] [address] [place] [address], [place] [address] Jul, [facility] [address] [id number] [address] [place] [address], [place] [address] Jul, [facility] [address] [id number] [address] [place] [address], [place] [address] Jul, [facility] [address] [id number] [address] [place] [address], [place] [address] Jul, [facility] [address] [id number] [address] [place] [address], [place] [address] Jul, [facility] [address] [id number] [address] [place] [address], [place] [address] Jul, [facility] [address] [id number] [address] [place] [address], [place] [address] Jun, [facility] [address] [id number] [address] [place] [address], [place] [address] 27 Jun, 2014 [facility] [address] [id number] [address] [place] [address], [place] [address] Jun, [facility] [address] [id number] [address] [place] [address], [place] [address] 20 Jun, 2014 [facility] [address] [id number] [address] [place] [address], [place] [address] 16 Jun, 2014 [facility] [address] [id number] [address] [place] [address], [place] [address] 15 Jun, 2014 [facility] [address] [id number] [address] [place] [id number] 15 Jun, 2014 [facility] [address] [id number] [address] [place] [id number] 14 Jun, 2014 [facility] [address] [id number] [address] [place] [id number] 14 Jun, 2014 [facility] [address] [id number] [address] [place] [address], [place] [id number] 11 Jun, 2014 [facility] [address] [id number] [address] [place] [address], [place] [id number] 11 Jun, 2014 [facility] [address] [id number] [address] [place] [id number] 24 May, 2014 [facility] [address] [id number] [address] [place] [id number] May, [facility] [address] [id number] [address] [place] [address], [place] [address] May, [facility] [address] [id number] [address] [place] [address], [place] [address] May, [facility] [address] [id number] [address] [place] [address], [place] [address] May, [facility] [address] [id number] [address] [place] [address], [place] [id number] Apr, [facility] [address] [id number] [address] [place] [address], [place] [address] Apr, [facility] [address] [id number] [address] [place] [address], [place] [id number] Apr, [facility] [address] [id number] [address] [place] [address], [place] [address] Apr, [facility] [address] [id number] [address] [place] [address], [place] [id number] Apr, [facility] [address] [id number] [address] [place] [address], [place] [id number] Apr, [facility] [address] [id number] [address] [place] [address], [place] [address] Mar, [facility] [address] [id number] [address] [place] [address], [place] [address] Mar, [facility] [address] [id number] [address] [place] [address], [place] [id number] Mar, [facility] [address] [id number] [address] [place] [address], [place] [address] Mar, [facility] [address] [id number] [address] [place] [address], [place] [id number] Mar, [facility] [address] [id number] [address] [place] [address], [place] [address] Mar, [facility] [address] [id number] [address] [place] [address], [place] [id number] Feb, [facility] [address] [id number] [address] [place] [address], [place] [id number] Feb, [facility] [address] [id number] [address] [place] [address], [place] [address] Feb, [facility] [address] [id number] [address] [place] [address], [place] [id number] Feb, [facility] [address] [id number] [address] [place] [address], [place] [address] Feb, [facility] [address] [id number] [address] [place] [address], [place] [address] Feb, [facility] [address] [id number] [address] [place] [address], [place] [address] Feb, [facility] [address] [id number] [address] [place] [address], [place] [id number] Feb, [facility] [address] [id number] [address] [place] [address], [place] [id number] January, [facility] [address] [id number] [address] [place] [address], [place] [address] January, [facility] [address] [id number] [address] [place] [address], [place] [id number] January, [facility] [address] [id number] [address] [place] [address], [place] [address] January, [facility] [address] [id number] [address] [place] [address], [place] [id number] January, [facility] [address] [id number] [address] [place] [address], [place] [id number] January, [facility] [facility] [address] [id number] [address] [place] [address], [place] [address] January, [facility] [address] [id number] [address] [place] [address], [place] [address] January, [facility] [address] [id number] [facility] [place] [address] Dec, [facility] [address] [id number] [address] [place] [address], [place] [address] Dec, [facility] [address] [id number] [address] [place] [address], [place] [address] Dec, [facility] [address] [id number] [address] [place] [address], [place] [address] Dec, [facility] [address] [id number] [address] [place] [address], [place] [address] Dec, [facility] [address] [id number] [address] [place] [address], [place] [address] Dec, [facility] [address] [id number] [address] [place] [address], [place] [address] Nov, [facility] [address] [id number] [address] [place] [address], [place] [address] Nov, [facility] [address] [id number] [address] [place] [address], [place] [address] Nov, [facility] [address] [id number] [address] [place] [address], [place] [address] Nov, [facility] [address] [id number] [address] [place] [address], [place] [address] Nov, [facility] [address] [id number] [address] [place] [address], [place] [address] Nov, [facility] [address] [id number] [address] [place] [address], [place] [address] Nov, [facility] [address] [id number] [address] [place] [address], [place] [address] Nov, [facility] [address] [id number] [address] [place] [address], [place] [address] Oct, [facility] [address] [id number] [address] [place] [address], [place] [address] Oct, [facility] [address] [id number] [address] [place] [address], [place] [address] Sep, [facility] [address] [id number] [address] [place] [address], [place] [address] Sep, [facility] [address] [id number] [address] [place] [address], [place] [address] Sep, [facility] [address] [id number] [address] [place] [address], [place] [address] Sep, [facility] [address] [id number] [address] [place] [address], [place] [address] Aug, [facility] [address] [id number] [address] [place] [address], [place] [address] Aug, [facility] [address] [id number] [address] [place] [address], [place] [address] Aug, [facility] [address] [id number] [address] [place] [address], [place] [address] Aug, [facility] [address] [id number] [address] [place] [address], [place] [address] Jul, [facility] [address] [id number] [address] [place] [address], [place] [address] Jul, [facility] [address] [id number] [address] [place] [address], [place] [address] Jul, [facility] [address] [id number] [address] [place] [address], [place] [address] Jul, [facility] [address] [id number] [address] [place] [address], [place] [address] Jul, [facility] [address] [id number] [address] [place] [address], [place] [address] Jul, [facility] [address] [id number] [address] [place] [address], [place] [address] Jul, [facility] [address] [id number] [address] [place] [address], [place] [address] Jul, [facility] [address] [id number] [address] [place] [address], [place] [address] Jul, [facility] [address] [id number] [address] [place] [address], [place] [address] Jul, [facility] [address] [id number] [address] [place] [address], [place] [address] Jul, [facility] [address] [id number] [address] [place] [address], [place] [address] Jul, [facility] [address] [id number] [address] [place] [address], [place] [address] Jun, [facility] [address] [id number] [address] [place] [address], [place] [address] Jun, [facility] [address] [id number] [address] [place] [address], [place] [address] Jun, [facility] [address] [id number] [address] [place] [address], [place] [address] Jun, [facility] [address] [id number] [address] [place] [address], [place] [address] 16 Jun, 2013 [facility] [address] [id number] [address] [place] [address], [place] [address] 14 Jun, 2013 [facility] [address] [id number] [address] [place] [address], [place] [address] 14 Jun, 2013 [facility] [address] [id number] [address] [place] [address], [place] [address] 02 Jun, 2013 [facility] [address] [id number] [address] [place] [address], [place] [address] 15 May, 2013 [facility] [address] [id number] [address] [place] [address], [place] [address] 05 May, 2013 [facility] [address] [id number] [address] [place] [address], [place] [address] May, [facility] [address] [id number] [address] [place] [address], [place] [address] Apr, [facility] [address] [id number] [address] [place] [address], [place] [address] Apr, [facility] [address] [id number] [address] [place] [address], [place] [address] Mar, [facility] [address] [id number] [address] [place] [address], [place] [address] Mar, [facility] [address] [id number] [address] [place] [address], [place] [address] Feb, [facility] [address] [id number] [address] [place] [address], [place] [address] January, [facility] [address] [id number] [address] [place] [address], [place] [address] January, [facility] [address] [id number] [address] [place] [address], [place] [address] January, [facility] [address] [id number] [address] [place] [address], [place] [address] January, [facility] [address] [id number] [address] [place] [address], [place] [address] January, [facility] [address] [id number] [address] [place] [address], [place] [address] Dec, [facility] [address] [id number] [address] [place] [address], [place] [address] Dec, [facility] [address] [id number] [address] [place] [address], [place] [address] Dec, [facility] [address] [id number] [address] [place] [address], [place] [address] Nov, [facility] [address] [id number] [address] [place] [address], [place] [address] Oct, [facility] [address] [id number] [address] [place] [address], [place] [address] 18 Oct, 2012 [facility] [address] [id number] [address] [place] [address], [place] [address] 15 Oct, 2012 [facility] [address] [id number] [address] [place] [address], [place] [address] 18 Sep, 2012 [facility] [address] [id number] [address] [place] [address], [place] [address] 16 Sep, 2012 [facility] [address] [id number] [address] [place] [address], [place] [address] 14 Aug, 2012 [facility] [address] [id number] [address] [place] [address], [place] [address] 14 Aug, 2012 [facility] [address] [id number] [address] [place] [address], [place] [address] 11 Aug, 2012 [facility] [address] [id number] [address] [place] [address], [place] [address] Aug, [facility] [address] [id number] [address] [place] [address], [place] [address] Jul, [facility] [address] [id number] [address] [place] [address], [place] [address] Jul, [facility] [address] [id number] [address] [place] [address], [place] [address] Jul, [facility] [address] [id number] [address] [place] [address], [place] [address] Jul, [facility] [address] [id number] [address] [place] [address], [place] [address] Jul, [facility] [address] [id number] [address] [place] [address], [place] [address] 15 Jun, 2012 [facility] [address] [id number] [address] [place] [address], [place] [address] 15 Jun, 2012 [facility] [address] [id number] [address] [place] [address], [place] [address] 10 Jun, 2012 [facility] [address] [id number] [address] [place] [address], [place] [address] 10 Jun, 2012 [facility] [address] [id number] [address] [place] [address], [place] [address] 10 May, 2012 [facility] [address] [id number] [address] [place] [address], [place] [address] Apr, [facility] [address] [id number] [address] [place] [address], [place] [address] Apr, [facility] [address] [id number] [address] [place] [address], [place] [address] Apr, [facility] [address] [id number] [address] [place] [address], [place] [address] Apr, [facility] [address] [id number] [address] [place] [address], [place] [address] January, [facility] [address] [id number] [address] [place] [address], [place] [address] January, [facility] [address] [id number] [address] [place] [address], [place] [address] Dec, [facility] [address] [id number] [address] [place] [address], [place] [address] Dec, [facility] [address] [id number] [address] [place] [address], [place] [address] Nov, [facility] [address] [id number] [address] [place] [address], [place] [address] Nov, [facility] [address] [id number] [address] [place] [address], [place] [address] Nov, [facility] [address] [id number] [address] [place] [address], [place] [address] Nov, [facility] [address] [id number] [address] [place] [address], [place] [address] Oct, [facility] [address] [id number] [address] [place] [address], [place] [address] Oct, [facility] [address] [id number] [address] [place] [address], [place] [address] Oct, [facility] [address] [id number] [address] [place] [address], [place] [address] Sep, [facility] [address] [id number] [address] [place] [address], [place] [address] Sep, [facility] [address] [id number] [address] [place] [address], [place] [address] Aug, [facility] [address] [id number] [address] [place] [address], [place] [address] Aug, [facility] [address] [id number] [address] [place] [address], [place] [address] Jul, [facility] [address] [id number] [address] [place] [address], [place] [address] Jul, [facility] [address] [id number] [address] [place] [address], [place] [address] Jul, [facility] [address] [id number] [address] [place] [address], [place] [address] Jun, [facility] [address] [id number] [address] [place] [address], [place] [address] 24 Jun, 2011 [facility] [address] [id number] [address] [place] [address], [place] [address] Jun, [facility] [address] [id number] [address] [place] [address], [place] [address] Jun, [facility] [address] [id number] [address] [place] [address], [place] [address] Jun, [facility] [address] [id number] [address] [place] [address], [place] [address] Jun, [facility] [address] [id number] [address] [place] [address], [place] [address] 29 Aug, 2010 [facility] [address] [id number] [address] [place] [address], [place] [address] 12 Aug, 2010 [facility] [address] [id number] [address] [place] [address], [place] [address] 08 Aug, 2010 [facility] [address] [id number] [address] [place] [address], [place] [address] 29 Jul, 2010 [facility] [address] [id number] [address] [place] [address], [place] [address] Jul, [facility] [address] [id number] [address] [place] [address], [place] [address] Jul, [facility] [address] [id number] [address] [place] [address], [place] [address] 15 Jul, 2010 [facility] [address] [id number] [address] [place] [address], [place] [address] Jul, [facility] [address] [id number] [address] [place] [id number] Jul, [facility] [address] [id number] [address] [place] [address], [place] [address] Jun, [facility] [address] [id number] [address] [place] [id number] Apr, [facility] [address] [id number] [address] [place] [id number] Feb, [facility] [address] [id number] [address] [place] [id number] 10 Oct, 2009 [facility] [address] [id number] [address] [place] [address], [place] [address] Sep, [facility] [address] [id number] [address] [place] [id number] Aug, [facility] [address] [id number] [address] [place] [id number] Aug, [facility] [address] [id number] [address] [place] [id number] Aug, [facility] [address] [facility] [place] [id number] [address] [place] [id number] Jul, [facility] [address] [facility] [place] [id number] [address] [place] [id number] Jun, IMMUNIZATIONS No Known Immunizations SOCIAL HISTORY Never Assessed REASON FOR VISIT PLAN OF CARE VITAL SIGNS Height 65 in 2014-11-12 Weight 177.56 lbs 2014-11-12 Temperature 98.1 degrees Fahrenheit 2014-11-12 Heart Rate 72 bpm 2014-11-12 Respiratory Rate 18 2014-11-12 Blood pressure systolic 126 mmHg 2014-11-12 Blood pressure diastolic 72 mmHg 2014-11-12 MEDICATIONS Unknown Medications RESULTS No Results PROCEDURES [...]
--- OUTSIDE RECORDS SUMMARY | 2020-02-22 17:24 | XMS REPORT ---
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 [id number] [address] [place] [phone] Mar, Cervical disc disease M50.90 [facility] [address] [facility] [id number] [address] [place] [id number] Feb, [address] [address] Feb, Cervical disc disease M50.[address] [id number] January, [facility] [address] [facility] [id number] [address] [place] [id number] January, Cervical disc disease M50.90 [facility] [address] [facility] [id number] [address] [place] [address] January, Cervical disc disease M50.90 [facility] [address] [facility] [id number] [address] [place] [address] Dec, Cervical disc disease M50.90 [facility] [address] [facility] [id number] [address] [place] [address] Dec, Cervical disc disease M50.90 [facility] [address] [facility] [id number] [address] [place] [address] Dec, Cervical disc disease M50.90 [facility] [address] [facility] [id number] [address] [place] [id number] Dec, Cervical disc disease M50.90 ; Acquired hypothyroidism E03.9 and Migraine without aura and without status migrainosus, not intractable G43.009 [facility] [address] [id number] [address] [place] [phone] Nov, [facility] [address] [facility] [id number] [address] [place] [phone] Nov, Cervical disc disease M50.90 [facility] [address] [facility] [id number] [address] [place] [id number] Oct, Cervical disc disease M50.90 [facility] [address] [facility] [id number] [address] [place] [phone] Sep, [facility] [address] [facility] [id number] [address] [place] [phone] Sep, Cervical disc disease M50.90 [facility] [address] [id number] [address] [place] [phone] Aug, Cervical disc disease M50.90 [facility] [address] [facility] [id number] [address] [place] [address] Jul, Cervical disc disease M50.90 [facility] [address] [facility] [id number] [address] [place] [address] Jun, Acute recurrent pansinusitis J01.41 and Cervical disc disease M50.90 [facility] [address] [facility] [id number] [address] [place] [phone] 24 Jun, 2018 Cervical disc disease M50.90 [facility] [address] [facility] [id number] [address] [place] [address] May, Cervical disc disease M50.90 [facility] [address] [id number] [address] [place] [address] Apr, Cervical disc disease M50.90 [facility] [address] [id number] [address] [place] [address] Mar, Cervical disc disease M50.90 [facility] [address] [id number] [address] [place] [id number] Mar, [facility] [address] [id number] [address] [place] [address] Mar, Cervical disc disease M50.90 [facility] [address] [id number] [address] [place] [address] Feb, Cervical disc disease M50.90 [facility] [address] [id number] [address] [place] [address] January, Cervical disc disease M50.90 [facility] [address] [id number] [address] [place] [phone] Dec, [facility] [address] [id number] [address] [place] [address] Dec, Cervical disc disease M50.90 [facility] [address] [id number] [address] [place] [address] Nov, Cervical disc disease M50.90 [facility] [address] [id number] [address] [place] [id number] Nov, Cervical disc disease M50.90 [facility] [address] [id number] [address] [place] [address] Oct, Cervical disc disease M50.90 [facility] [address] [id number] [address] [place] [phone] Oct, Cervical disc disease M50.90 and Acute non-recurrent maxillary sinusitis J01.00 [facility] [address] [id number] [address] [place] [address] Sep, Cervical disc disease M50.90 [facility] [address] [facility] [id number] [address] [place] [address] Sep, [facility] [address] [facility] [id number] [address] [place] [address] Sep, Fatigue, unspecified type R5 3.83 and Cough R05 [facility] [address] [facility] [id number] [address] [place] [id number] Aug, Cervical disc disease M50.90 [facility] [address] [facility] [id number] [address] [place] [address] Aug, Sore throat J02.9 ; Canker s ore K12.0 and History of anemia Z86.2 [facility] [address] [facility] [id number] [address] [place] [address] Jul, Cervical disc disease M50.90 [facility] [address] [facility] [id number] [address] [place] [address] Jun, Cervical disc disease M50.90 [facility] [address] [facility] [id number] [address] [place] [phone] Jun, Cervical disc disease M50.90 [facility] [address] [facility] [id number] [address] [place] [address] May, Cervical disc disease M50.90 [facility] [address] [facility] [id number] [address] [place] [phone] Apr, Cervical disc disease M50.90 [facility] [address] [facility] [id number] [address] [place] [address] Apr, [facility] [address] [facility] [id number] [address] [place] [address] Feb, Cervical disc disease M50.90 [facility] [address] [facility] [id number] [address] [place] [phone] January, Cervical disc disease M50.90 [facility] [address] [facility] [id number] [address] [place] [phone] Nov, [facility] [address] [id number] [address] [place] [phone] Nov, Cervical disc disease M50.90 [facility] [address] [id number] [address] [place] [address] Nov, Acute cystitis with hematuri a N30.01 and Dysuria R30.0 [facility] [address] [id number] [address] [place] [address] Oct, Cervical disc disease M50.90 and Acute non-recurrent frontal sinusitis J01.10 [facility] [address] [facility] [id number] [address] [place] [address] Sep, Neck pain M54.2 [facility] [address] [facility] [id number] [address] [place] [phone] Sep, [facility] [address] [facility] [id number] [address] [place] [phone] Aug, Cervical disc disease M50.90 [facility] [address] [id number] [address] [place] [id number] Jul, [facility] [address] [id number] [address] [place] [phone] Jun, [facility] [address] [facility] [id number] [address] [place] [phone] May, [facility] [address] [id number] [address] [place] [phone] May, Screening for diabetes blanchei tus Z13.1 ; Chronic fatigue R53.82 and Edema, unspecified type R60.9 [facility] [address] [id number] [address] [place] [id number] Apr, Neck pain M54.2 [facility] [address] [facility] [id number] [address] [place] [phone] Mar, [facility] [address] [id number] [address] [place] [address] Mar, Neck pain M54.2 [facility] [address] [id number] [address] [place] [address] Feb, Cervical disc disease M50.90 [facility] [address] [id number] [address] [place] [address] Feb, Cervical disc disease M50.90 [facility] [address] [id number] [address] [place] [phone] January, [facility] [address] [id number] [address] [place] [phone] January, [facility] [address] [id number] [address] [place] [phone] January, Cervical disc disease M50.90 [facility] [address] [id number] [address] [place] [phone] January, [facility] [address] [id number] [address] [place] [phone] January, [facility] [address] [id number] [address] [place] [id number] Dec, Cervical disc disease M50.90 [facility] [address] [id number] [address] [place] [id number] Nov, Cervical disc disease M50.90 [facility] [address] [id number] [address] [place] [id number] Oct, Cervical disc disease M50.90 [facility] [address] [id number] [address] [place] [id number] Sep, Cervical disc disease M50.90 [facility] [address] [id number] [address] [place] [id number] Aug, Dental caries K02.9 and Enco unter for dental examination Z01.20 [facility] [address] [id number] [address] [place] [phone] Aug, [facility] [address] [id number] [address] [place] [phone] Aug, [facility] [address] [id number] [address] [place] [id number] Aug, Encounter for dental examina tion Z01.20 [facility] [address] [id number] [address] [place] [id number] Jul, [facility] [address] [id number] [address] [place] [address] Jun, Sinusitis J32.9 and Cervical disc disease M50.90 [facility] [address] [id number] [address] [place] [id number] Jun, [facility] [address] [id number] [address] [place] [id number] May, [facility] [address] [id number] [address] [place] [phone] May, [facility] [address] [id number] [address] [place] [id number] May, [facility] [address] [id number] [address] [place] [id number] May, [facility] [address] [id number] [address] [place] [phone] Apr, Cervical spondylosis without myelopathy 721.0 [facility] [address] [id number] [address] [place] [address] Mar, [facility] [address] [id number] [address] [place] [phone] January, Cervical spondylosis without myelopathy 721.0 [facility] [address] [id number] [address] [place] [phone] Dec, [facility] [address] [id number] [address] [place] [phone] Dec, [facility] [address] [id number] [address] [place] [address], [place] [address] 13 Dec, 2014 [facility] [address] [id number] [address] [place] [address], [place] [id number] Nov, [facility] [address] [id number] [address] [place] [address], [place] [address] Nov, [facility] [address] [id number] [address] [place] [address], [place] [address] Oct, [facility] [address] [id number] [address] [place] [address], [place] [address] Oct, [facility] [address] [id number] [address] [place] [address], [place] [address] Oct, [facility] [address] [id number] [address] [place] [address], [place] [address] Oct, [facility] [address] [id number] [address] [place] [phone] Oct, [facility] [address] [id number] [address] [place] [address], [place] [address] Oct, [facility] [address] [id number] [address] [place] [address], [place] [address] Oct, [facility] [address] [id number] [address] [place] [address], [place] [address] Oct, 2014 [facility] [address] [id number] [address] [place] [phone] Oct, [facility] [address] [id number] [address] [place] [address], [place] [address] Oct, [facility] [address] [id number] [address] [place] [address], [place] [address] Sep, [facility] [address] [id number] [address] [place] [address], [place] [address] Sep, [facility] [address] [id number] [address] [place] [address], [place] [address] Sep, [facility] [address] [id number] [address] [place] [address], [place] [address] Sep, [facility] [address] [id number] [address] [place] [address], [place] [address] Sep, [facility] [address] [id number] [address] [place] [address], [place] [address] Sep, [facility] [address] [id number] [address] [place] [address], [place] [address] Sep, [facility] [address] [id number] [address] [place] [address], [place] [address] Sep, [facility] [address] [id number] [address] [place] [address], [place] [address] Sep, [facility] [address] [id number] [address] [place] [address], [place] [address] Aug, [facility] [address] [id number] [address] [place] [address], [place] [address] Aug, [facility] [address] [id number] [address] [place] [address], [place] [address] Aug, [facility] [address] [id number] [address] [place] [address], [place] [address] Aug, [facility] [address] [id number] [address] [place] [address], [place] [address] Jul, [facility] [address] [id number] [address] [place] [address], [place] [address] Jul, [facility] [address] [id number] [address] [place] [address], [place] [address] Jul, [facility] [address] [id number] [address] [place] [address], [place] [address] Jul, [facility] [address] [id number] [address] [place] [address], [place] [address] Jul, [facility] [address] [id number] [address] [place] [address], [place] [address] Jul, [facility] [address] [id number] [address] [place] [address], [place] [address] Jul, [facility] [address] [id number] [address] [place] [address], [place] [address] Jul, [facility] [address] [id number] [address] [place] [address], [place] [address] Jun, [facility] [address] [id number] [address] [place] [address], [place] [address] 27 Jun, 2014 [facility] [address] [id number] [address] [place] [address], [place] [address] Jun, [facility] [address] [id number] [address] [place] [address], [place] [address] 20 Jun, 2014 [facility] [address] [id number] [address] [place] [address], [place] [address] 16 Jun, 2014 [facility] [address] [id number] [address] [place] [address], [place] [address] 15 Jun, 2014 [facility] [address] [id number] [address] [place] [id number] 15 Jun, 2014 [facility] [address] [id number] [address] [place] [id number] 14 Jun, 2014 [facility] [address] [id number] [address] [place] [id number] 14 Jun, 2014 [facility] [address] [id number] [address] [place] [address], [place] [address] 11 Jun, 2014 [facility] [address] [id number] [address] [place] [address], [place] [address] 11 Jun, 2014 [facility] [address] [id number] [address] [place] [id number] 24 May, 2014 [facility] [address] [id number] [address] [place] [phone] May, [facility] [address] [id number] [address] [place] [address], [place] [address] May, [facility] [address] [id number] [address] [place] [address], [place] [address] May, [facility] [address] [id number] [address] [place] [address], [place] [address] May, [facility] [address] [id number] [address] [place] [address], [place] [address] Apr, [facility] [address] [id number] [address] [place] [address], [place] [address] Apr, [facility] [address] [id number] [address] [place] [address], [place] [address] Apr, [facility] [address] [id number] [address] [place] [address], [place] [address] Apr, [facility] [address] [id number] [address] [place] [address], [place] [address] Apr, [facility] [address] [id number] [address] [place] [address], [place] [address] Apr, [facility] [address] [id number] [address] [place] [address], [place] [address] Mar, [facility] [address] [id number] [address] [place] [address], [place] [address] Mar, [facility] [address] [id number] [address] [place] [address], [place] [address] Mar, [facility] [address] [id number] [address] [place] [address], [place] [address] Mar, [facility] [address] [id number] [address] [place] [address], [place] [address] Mar, [facility] [address] [id number] [address] [place] [address], [place] [address] Mar, [facility] [address] [id number] [address] [place] [address], [place] [address] Feb, [facility] [address] [id number] [address] [place] [address], [place] [address] Feb, [facility] [address] [id number] [address] [place] [address], [place] [address] Feb, [facility] [address] [id number] [address] [place] [address], [place] [address] Feb, [facility] [address] [id number] [address] [place] [address], [place] [address] Feb, [facility] [address] [id number] [address] [place] [address], [place] [address] Feb, [facility] [address] [id number] [address] [place] [address], [place] [address] Feb, [facility] [address] [id number] [address] [place] [address], [place] [address] Feb, [facility] [address] [id number] [address] [place] [address], [place] [address] January, [facility] [address] [id number] [address] [place] [address], [place] [address] January, [facility] [address] [id number] [address] [place] [address], [place] [address] January, [facility] [address] [id number] [address] [place] [address], [place] [address] January, [facility] [address] [id number] [address] [place] [address], [place] [address] January, [facility] [address] [id number] [address] [place] [address], [place] [address] January, [facility] [address] [id number] [address] [place] [address], [place] [address] January, [facility] [address] [id number] [address] [place] [address], [place] [address] January, [facility] [address] [id number] [facility] [place] [address] Dec, [facility] [address] [id number] [address] [place] [address], [place] [address] Dec, [facility] [address] [id number] [address] [place] [address], [place] [address] Dec, [facility] [address] [id number] [address] [place] [address], [place] [address] Dec, [facility] [address] [id number] [address] [place] [address], [place] [address] Dec, [facility] [address] [id number] [address] [place] [address], [place] [address] Dec, [facility] [address] [id number] [address] [place] [address], [place] [address] Nov, [facility] [address] [id number] [address] [place] [address], [place] [address] Nov, [facility] [address] [id number] [address] [place] [address], [place] [address] Nov, [facility] [address] [id number] [address] [place] [address], [place] [address] Nov, [facility] [address] [id number] [address] [place] [address], [place] [address] Nov, [facility] [address] [id number] [address] [place] [address], [place] [address] Nov, [facility] [address] [id number] [address] [place] [address], [place] [address] Nov, [facility] [address] [id number] [address] [place] [address], [place] [address] Nov, [facility] [facility] [address] [id number] [address] [place] [address], [place] [address] Oct, [facility] [address] [id number] [address] [place] [address], [place] [address] Oct, [facility] [address] [id number] [address] [place] [address], [place] [address] Sep, [facility] [address] [id number] [address] [place] [address], [place] [address] Sep, [facility] [address] [id number] [address] [place] [address], [place] [address] Sep, [facility] [address] [id number] [address] [place] [address], [place] [address] Sep, [facility] [address] [id number] [address] [place] [address], [place] [address] Aug, [facility] [address] [id number] [address] [place] [address], [place] [address] Aug, [facility] [address] [id number] [address] [place] [address], [place] [address] Aug, [facility] [address] [id number] [address] [place] [address], [place] [address] Aug, [facility] [address] [id number] [address] [place] [address], [place] [address] Jul, [facility] [address] [id number] [address] [place] [address], [place] [address] Jul, [facility] [address] [id number] [address] [place] [address], [place] [address] Jul, [facility] [address] [id number] [address] [place] [address], [place] [address] Jul, [facility] [address] [id number] [address] [place] [address], [place] [address] Jul, [facility] [address] [id number] [address] [place] [address], [place] [address] Jul, [facility] [address] [id number] [address] [place] [address], [place] [address] Jul, [facility] [address] [id number] [address] [place] [address], [place] [address] Jul, [facility] [address] [id number] [address] [place] [address], [place] [address] Jul, [facility] [address] [id number] [address] [place] [address], [place] [address] Jul, [facility] [address] [id number] [address] [place] [address], [place] [address] Jul, [facility] [address] [id number] [address] [place] [address], [place] [address] Jul, [facility] [address] [id number] [address] [place] [address], [place] [address] Jun, [facility] [address] [id number] [address] [place] [address], [place] [address] Jun, [facility] [address] [id number] [address] [place] [address], [place] [address] Jun, [facility] [address] [id number] [address] [place] [address], [place] [address] Jun, [facility] [address] [id number] [address] [place] [address], [place] [address] 16 Jun, 2013 [facility] [address] [id number] [address] [place] [address], [place] [address] 14 Jun, 2013 [facility] [address] [id number] [address] [place] [address], [place] [address] 14 Jun, 2013 [facility] [address] [id number] [address] [place] [address], [place] [address] 02 Jun, 2013 [facility] [address] [id number] [address] [place] [address], [place] [address] 15 May, 2013 [facility] [address] [id number] [address] [place] [address], [place] [address] 05 May, 2013 [facility] [address] [id number] [address] [place] [address], [place] [address] May, [facility] [address] [id number] [address] [place] [address], [place] [address] Apr, [facility] [address] [id number] [address] [place] [address], [place] [address] Apr, [facility] [address] [id number] [address] [place] [address], [place] [address] Mar, [facility] [address] [id number] [address] [place] [address], [place] [address] Mar, [facility] [address] [id number] [address] [place] [address], [place] [address] Feb, [facility] [address] [id number] [address] [place] [address], [place] [address] January, [facility] [address] [id number] [address] [place] [address], [place] [address] January, [facility] [address] [id number] [address] [place] [address], [place] [address] January, [facility] [address] [id number] [address] [place] [address], [place] [address] January, [facility] [address] [id number] [address] [place] [address], [place] [address] January, [facility] [address] [id number] [address] [place] [address], [place] [address] Dec, [facility] [address] [id number] [address] [place] [address], [place] [address] Dec, [facility] [address] [id number] [address] [place] [address], [place] [address] Dec, [facility] [address] [id number] [address] [place] [address], [place] [address] Nov, [facility] [address] [id number] [address] [place] [address], [place] [address] Oct, [facility] [address] [id number] [address] [place] [address], [place] [address] 18 Oct, 2012 [facility] [address] [id number] [address] [place] [address], [place] [address] 15 Oct, 2012 [facility] [address] [id number] [address] [place] [address], [place] [address] 18 Sep, 2012 [facility] [address] [id number] [address] [place] [address], [place] [address] 16 Sep, 2012 [facility] [address] [id number] [address] [place] [address], [place] [address] 14 Aug, 2012 [facility] [address] [id number] [address] [place] [address], [place] [address] 14 Aug, 2012 [facility] [address] [id number] [address] [place] [address], [place] [address] 11 Aug, 2012 [facility] [address] [id number] [address] [place] [address], [place] [address] Aug, [facility] [address] [id number] [address] [place] [address], [place] [address] Jul, [facility] [address] [id number] [address] [place] [address], [place] [address] Jul, [facility] [address] [id number] [address] [place] [address], [place] [address] Jul, [facility] [address] [id number] [address] [place] [address], [place] [address] Jul, [facility] [address] [id number] [address] [place] [address], [place] [address] Jul, [facility] [address] [id number] [address] [place] [address], [place] [address] 15 Jun, 2012 [facility] [address] [id number] [address] [place] [address], [place] [address] 15 Jun, 2012 [facility] [address] [id number] [address] [place] [address], [place] [address] 10 Jun, 2012 [facility] [address] [id number] [address] [place] [address], [place] [address] 10 Jun, 2012 [facility] [address] [id number] [address] [place] [address], [place] [address] 10 May, 2012 [facility] [address] [id number] [address] [place] [address], [place] [address] Apr, [facility] [address] [id number] [address] [place] [address], [place] [address] Apr, [facility] [address] [id number] [address] [place] [address], [place] [address] Apr, [facility] [address] [id number] [address] [place] [address], [place] [address] Apr, [facility] [address] [id number] [address] [place] [address], [place] [address] January, [facility] [address] [id number] [address] [place] [address], [place] [address] January, [facility] [address] [id number] [address] [place] [address], [place] [address] Dec, [facility] [address] [id number] [address] [place] [address], [place] [address] Dec, [facility] [address] [id number] [address] [place] [address], [place] [address] Nov, [facility] [address] [id number] [address] [place] [address], [place] [address] Nov, [facility] [address] [id number] [address] [place] [address], [place] [address] Nov, [facility] [address] [id number] [address] [place] [address], [place] [address] Nov, [facility] [address] [id number] [address] [place] [address], [place] [address] Oct, [facility] [address] [id number] [address] [place] [address], [place] [address] Oct, [facility] [address] [id number] [address] [place] [address], [place] [address] Oct, [facility] [address] [id number] [address] [place] [address], [place] [address] Sep, [facility] [address] [id number] [address] [place] [address], [place] [address] Sep, [facility] [address] [id number] [address] [place] [address], [place] [address] Aug, [facility] [address] [id number] [address] [place] [address], [place] [address] Aug, [facility] [address] [id number] [address] [place] [address], [place] [address] Jul, [facility] [address] [id number] [address] [place] [address], [place] [address] Jul, [facility] [address] [id number] [address] [place] [address], [place] [address] Jul, [facility] [address] [id number] [address] [place] [address], [place] [address] Jun, [facility] [address] [id number] [address] [place] [address], [place] [address] 24 Jun, 2011 [facility] [address] [id number] [address] [place] [address], [place] [address] Jun, [facility] [address] [id number] [address] [place] [address], [place] [address] Jun, [facility] [address] [id number] [address] [place] [address], [place] [address] Jun, [facility] [address] [id number] [address] [place] [address], [place] [address] Jun, [facility] [address] [id number] [address] [place] [address], [place] [address] 29 Aug, 2010 [facility] [address] [id number] [address] [place] [address], [place] [address] 12 Aug, 2010 [facility] [address] [id number] [address] [place] [address], [place] [address] 08 Aug, 2010 [facility] [address] [id number] [address] [place] [address], [place] [address] 29 Jul, 2010 [facility] [address] [id number] [address] [place] [address], [place] [address] Jul, [facility] [address] [id number] [address] [place] [address], [place] [address] Jul, [facility] [address] [id number] [address] [place] [address], [place] [address] 15 Jul, 2010 [facility] [address] [id number] [address] [place] [address], [place] [address] Jul, [facility] [address] [id number] [address] [place] [id number] Jul, [facility] [address] [id number] [address] [place] [address], [place] [address] Jun, [facility] [address] [id number] [address] [place] [id number] Apr, [facility] [address] [id number] [address] [place] [id number] Feb, [facility] [address] [id number] [address] [place] [id number] 10 Oct, 2009 [facility] [address] [id number] [address] [place] [address], [place] [address] Sep, [facility] [address] [id number] [address] [place] [id number] Aug, [facility] [address] [id number] [address] [place] [id number] Aug, [facility] [address] [id number] [address] [place] [id number] Aug, [facility] [address] [facility] [id number] [address] [place] [id number] Jul, [facility] [address] [facility] [id number] [address] [place] [id number] Jun, IMMUNIZATIONS No Known Immunizations SOCIAL HISTORY Never Assessed REASON FOR VISIT PLAN OF CARE VITAL SIGNS Height 65 in 2014-10-30 Weight 177 lbs 2014-10-30 Temperature 98.1 degrees Fahrenheit 2014-10-30 Heart Rate 78 bpm 2014-10-30 Respiratory Rate 18 2014-10-30 Blood pressure systolic 120 mmHg 2014-10-30 Blood pressure diastolic 72 mmHg 2014-10-30 MEDICATIONS Unknown Medications RESULTS No Results PROCEDURES [...]
--- OUTSIDE RECORDS SUMMARY | 2020-02-22 17:25 | XMS REPORT ---
Author Author Marion Alexander Doctor Organization [facility] Address Unknown Phone Unavailable Care Team Providers Care Separator Operator Name Role Phone Migration, Doctor Unavailable Unavailable PROBLEMS Type Condition ICD9-CM Code DBS55-AJ Code Onset Dates Condition S tatus SNOMED Code Problem Migraine without aura and without status migrain osus, not intractable G43.009 Active 520651534 Problem Acquired hypothyroidism E03.9 Active 769571178 Problem Cervical disc disease M50.90 Active 722231403 Problem Dyspepsia R10.13 Active 866322965 ALLERGIES Substance Reaction Event Type Date Status Zanaflex 4 Mg Capsule Pt reports that medications made her s ick. Non Drug Allergy Dec, Active Naprosyn 500 Mg Tablet Pt reports that medications made her sick. Non Drug Allergy Dec, Active ENCOUNTERS Encounter Location Date Diagnosis [facility], [place] [address] [facility] [id number] [address] [place] [id number] Feb, [address] [address] Feb, Cervical disc disease M50.[address] [id number] January, [facility], [place] [address] [facility] [id number] [address] [place] [phone] January, Cervical disc disease M50.90 [facility], [place] [address] [facility] [id number] [address] [place] [phone] January, Cervical disc disease M50.90 [facility], [place] [address] [facility] [id number] [address] [place] [phone] Dec, Cervical disc disease M50.90 [facility], [place] [address] [facility] [id number] [address] [place] [phone] Dec, Cervical disc disease M50.90 [facility], [place] [address] [facility] [id number] [address] [place] [id number] Dec, Cervical disc disease M50.90 [facility], [place] [address] [place] [place] [id number] [address] [place] [id number] Dec, Cervical disc disease M50.90 ; Acquired hypothyroidism E03.9 and Migraine without aura and without status migrainosus, not intractable G43.009 [facility], [place] [address] [facility] [id number] [address] [place] [phone] Nov, [facility], [place] [address] [facility] [id number] [address] [place] [id number] Nov, Cervical disc disease M50.90 [facility], [place] [address] [place] [id number] [address] [place] [id number] Oct, Cervical disc disease M50.90 [facility], [place] [address] [place] [id number] [address] [place] [phone] Sep, [facility], [place] [address] [id number] [address] [place] [id number] Sep, Cervical disc disease M50.90 [facility], [place] [address] [id number] [address] [place] [phone] Aug, Cervical disc disease M50.90 [facility], [place] [address] [id number] [address] [place] [phone] Jul, Cervical disc disease M50.90 [facility], [place] [address] [facility] [id number] [address] [place] [phone] Jun, Acute recurrent pansinusitis J01.41 and Cervical disc disease M50.90 [facility], [place] [address] [facility] [id number] [address] [place] [id number] Jun, Cervical disc disease M50.90 [facility], [place] [address] [facility] [id number] [address] [place] [address] May, Cervical disc disease M50.90 [facility], [place] [address] [place] [id number] [address] [place] [id number] Apr, Cervical disc disease M50.90 [facility], [place] [address] [id number] [address] [place] [phone] Mar, Cervical disc disease M50.90 [facility], [place] [address] [id number] [address] [place] [phone] Mar, [facility], [place] [address] [id number] [address] [place] [id number] Mar, Cervical disc disease M50.90 [facility], [place] [address] [id number] [address] [place] [phone] Feb, Cervical disc disease M50.90 [facility], [place] [address] [id number] [address] [place] [phone] January, Cervical disc disease M50.90 [facility], [place] [address] [id number] [address] [place] [phone] Dec, [facility], [place] [address] [id number] [address] [place] [id number] Dec, Cervical disc disease M50.90 [facility], [place] [address] [id number] [address] [place] [address] Nov, Cervical disc disease M50.90 [facility], [place] [address] [id number] [address] [place] [phone] Nov, Cervical disc disease M50.90 [facility], [place] [address] [id number] [address] [place] [phone] Oct, Cervical disc disease M50.90 [facility], [place] [address] [id number] [address] [place] [phone] Oct, Cervical disc disease M50.90 and Acute non-recurrent maxillary sinusitis J01.00 [facility], [place] [address] [id number] [address] [place] [phone] Sep, Cervical disc disease M50.90 [facility] [address] [id number] [address] [place] [phone] Sep, [facility] [address] [facility] [id number] [address] [place] [address] Sep, Fatigue, unspecified type R5 3.83 and Cough R05 [facility], [place] [address] [facility] [id number] [address] [place] [id number] Aug, Cervical disc disease M50.90 [facility] [address] [facility] [id number] [address] [place] [phone] Aug, Sore throat J02.9 ; Canker s ore K12.0 and History of anemia Z86.2 [facility], [place] [address] [facility] [id number] [address] [place] [phone] Jul, Cervical disc disease M50.90 [facility], [place] [address] [place] [id number] [address] [place] [phone] Jun, Cervical disc disease M50.90 [facility], [place] [address] [place] [place] [id number] [address] [place] [phone] Jun, Cervical disc disease M50.90 [facility], [place] [address] [facility] [id number] [address] [place] [id number] May, Cervical disc disease M50.90 [facility], [place] [address] [facility] [id number] [address] [place] [id number] Apr, Cervical disc disease M50.90 [facility], [place] [address] [facility] [id number] [address] [place] [phone] Apr, [facility], [place] [address] [facility] [id number] [address] [place] [phone] Feb, Cervical disc disease M50.90 [facility], [place] [address] [facility] [id number] [address] [place] [phone] January, Cervical disc disease M50.90 [facility], [place] [address] [facility] [id number] [address] [place] [phone] Nov, [facility], [place] [address] [id number] [address] [place] [phone] Nov, Cervical disc disease M50.90 [facility] [address] [facility] [id number] [address] [place] [phone] Nov, Acute cystitis with hematuri a N30.01 and Dysuria R30.0 [facility], [place] [address] [facility] [id number] [address] [place] [phone] Oct, Cervical disc disease M50.90 and Acute non-recurrent frontal sinusitis J01.10 [facility], [place] [address] [facility] [id number] [address] [place] [phone] Sep, Neck pain M54.2 [facility], [place] [address] [facility] [id number] [address] [place] [id number] Sep, [facility], [place] [address] [facility] [id number] [address] [place] [phone] Aug, Cervical disc disease M50.90 [facility], [place] [address] [facility] [id number] [address] [place] [phone] Jul, [facility], [place] [address] [facility] [id number] [address] [place] [phone] Jun, [facility], [place] [address] [facility] [id number] [address] [place] [id number] May, [facility], [place] [address] [id number] [address] [place] [id number] May, Screening for diabetes emilio tus Z13.1 ; Chronic fatigue R53.82 and Edema, unspecified type R60.9 [facility], [place] [address] [id number] [address] [place] [phone] Apr, Neck pain M54.2 [facility], [place] [address] [facility] [id number] [address] [place] [id number] Mar, [facility], [place] [address] [facility] [id number] [address] [place] [id number] Mar, Neck pain M54.2 [facility], [place] [address] [id number] [address] [place] [id number] Feb, Cervical disc disease M50.90 [facility], [place] [address] [id number] [address] [place] [id number] Feb, Cervical disc disease M50.90 [facility], [place] [address] [id number] [address] [place] [phone] January, [facility], [place] [address] [id number] [address] [place] [id number] January, [facility], [place] [address] [id number] [address] [place] [id number] January, Cervical disc disease M50.90 [facility], [place] [address] [id number] [address] [place] [id number] January, [facility], [place] [address] [id number] [address] [place] [phone] January, [facility], [place] [address] [id number] [address] [place] [id number] Dec, Cervical disc disease M50.90 [facility], [place] [address] [id number] [address] [place] [phone] Nov, Cervical disc disease M50.90 [facility], [place] [address] [id number] [address] [place] [phone] Oct, Cervical disc disease M50.90 [facility], [place] [address] [id number] [address] [place] [phone] Sep, Cervical disc disease M50.90 [facility] [address] [id number] [address] [place] [id number] Aug, Dental caries K02.9 and Enco unter for dental examination Z01.20 [facility], [place] [address] [id number] [address] [place] [id number] Aug, [facility], [place] [address] [id number] [address] [place] [phone] 15 Aug, 2015 [facility] [address] [id number] [address] [place] [id number] Aug, Encounter for dental examina tion Z01.20 [facility], [place] [address] [id number] [address] [place] [phone] 16 Jul, 2015 [facility], [place] [address] [id number] [address] [place] [phone] Jun, Sinusitis J32.9 and Cervical disc disease M50.90 [facility], [place] [address] [id number] [address] [place] [phone] Jun, [facility], [place] [address] [id number] [address] [place] [phone] 24 May, 2015 [facility], [place] [address] [id number] [address] [place] [phone] May, [facility], [place] [address] [id number] [address] [place] [phone] May, [facility], [place] [address] [id number] [address] [place] [phone] May, [facility], [place] [address] [id number] [address] [place] [phone] Apr, Cervical spondylosis without myelopathy 721.0 [facility], [place] [address] [id number] [address] [place] [phone] Mar, [facility], [place] [address] [id number] [address] [place] [id number] January, Cervical spondylosis without myelopathy 721.0 [facility], [place] [address] [id number] [address] [place] [phone] 28 Dec, 2014 [facility], [place] [address] [id number] [address] [place] [phone] 14 Dec, 2014 [facility], [place] [address] [id number] [address] [place] [address] [place] [address] Dec, [facility] [address] [id number] [address] [place] [address], [place] [address] Nov, [facility] [address] [id number] [address] [place] [address], [place] [address] Nov, [facility] [address] [id number] [address] [place] [address], [place] [address] Oct, 2014 [facility] [address] [id number] [address] [place] [address], [place] [address] Oct, 2014 [facility] [address] [id number] [address] [place] [address], [place] [address] Oct, 2014 [facility] [address] [id number] [address] [place] [address], [place] [address] Oct, 2014 [facility] [address] [id number] [address] [place] [address], [place] [address] Oct, [facility] [address] [id number] [address] [place] [address], [place] [address] Oct, [facility] [address] [id number] [address] [place] [address], [place] [address] Oct, [facility] [address] [id number] [address] [place] [address], [place] [address] Oct, [facility] [address] [id number] [address] [place] [address], [place] [address] Oct, [facility] [address] [id number] [address] [place] [address], [place] [address] Oct, [facility] [address] [id number] [address] [place] [address], [place] [address] Sep, [facility] [address] [id number] [address] [place] [address], [place] [address] Sep, [facility] [address] [id number] [address] [place] [address], [place] [address] Sep, [facility] [address] [id number] [address] [place] [address], [place] [address] Sep, [facility] [address] [id number] [address] [place] [address], [place] [address] Sep, [facility] [address] [id number] [address] [place] [address], [place] [address] Sep, [facility] [address] [id number] [address] [place] [address], [place] [address] Sep, [facility] [address] [id number] [address] [place] [address], [place] [address] Sep, [facility] [address] [id number] [address] [place] [address], [place] [address] Sep, [facility] [address] [id number] [address] [place] [address], [place] [address] Aug, [facility] [address] [id number] [address] [place] [address], [place] [address] Aug, [facility] [address] [id number] [address] [place] [address], [place] [address] Aug, [facility] [address] [id number] [address] [place] [address], [place] [address] Aug, [facility] [address] [id number] [address] [place] [address], [place] [address] Jul, [facility] [address] [id number] [address] [place] [address], [place] [address] Jul, [facility] [address] [id number] [address] [place] [address], [place] [address] Jul, [facility] [address] [id number] [address] [place] [address], [place] [address] Jul, [facility] [address] [id number] [address] [place] [address], [place] [address] Jul, [facility] [address] [id number] [address] [place] [address], [place] [address] Jul, [facility] [address] [id number] [address] [place] [address], [place] [address] Jul, [facility] [address] [id number] [address] [place] [address], [place] [address] Jul, [facility] [address] [id number] [address] [place] [address], [place] [address] 27 Jun, 2014 [facility] [address] [id number] [address] [place] [address], [place] [address] 27 Jun, 2014 [facility] [address] [id number] [address] [place] [address], [place] [address] Jun, [facility] [address] [id number] [address] [place] [address], [place] [address] 20 Jun, 2014 [facility] [address] [id number] [address] [place] [address], [place] [address] 16 Jun, 2014 [facility] [address] [id number] [address] [place] [address], [place] [address] 15 Jun, 2014 [facility] [address] [id number] [address] [place] [address], [place] [address] 15 Jun, 2014 [facility] [address] [id number] [address] [place] [address], [place] [address] 14 Jun, 2014 [facility] [address] [id number] [address] [place] [address], [place] [address] 14 Jun, 2014 [facility] [address] [id number] [address] [place] [address], [place] [address] 11 Jun, 2014 [facility] [address] [id number] [address] [place] [address], [place] [address] 11 Jun, 2014 [facility] [address] [id number] [address] [place] [address], [place] [address] 24 May, 2014 [facility] [address] [id number] [address] [place] [address], [place] [address] 24 May, 2014 [facility] [address] [id number] [facility] [place] [address] May, [facility] [address] [id number] [facility] [place] [address] May, [facility] [address] [id number] [facility] [place] [address] May, [facility] [address] [id number] [address] [place] [address], [place] [address] Apr, [facility] [address] [id number] [address] [place] [address], [place] [address] Apr, [facility] [address] [id number] [address] [place] [address], [place] [address] Apr, [facility] [address] [id number] [address] [place] [address], [place] [address] Apr, [facility] [address] [id number] [address] [place] [address], [place] [address] Apr, [facility] [address] [id number] [address] [place] [address], [place] [address] Apr, [facility] [address] [id number] [address] [place] [address], [place] [address] Mar, [facility] [address] [id number] [address] [place] [address], [place] [address] Mar, [facility] [address] [id number] [address] [place] [address], [place] [address] Mar, [facility] [address] [id number] [address] [place] [address], [place] [address] Mar, [facility] [address] [id number] [address] [place] [address], [place] [address] Mar, [facility] [address] [id number] [address] [place] [address], [place] [address] Mar, [facility] [address] [id number] [address] [place] [address], [place] [address] Feb, [facility] [address] [id number] [address] [place] [address], [place] [address] Feb, [facility] [address] [id number] [address] [place] [address], [place] [address] Feb, [facility] [address] [id number] [address] [place] [address], [place] [address] Feb, [facility] [address] [id number] [address] [place] [address], [place] [address] Feb, [facility] [address] [id number] [address] [place] [address], [place] [address] Feb, [facility] [address] [id number] [address] [place] [address], [place] [address] Feb, [facility] [address] [id number] [address] [place] [address], [place] [address] Feb, [facility] [address] [id number] [address] [place] [address], [place] [address] January, [facility] [address] [id number] [address] [place] [address], [place] [address] January, [facility] [address] [id number] [address] [place] [address], [place] [address] January, [facility] [address] [id number] [address] [place] [address], [place] [address] January, [facility] [address] [id number] [address] [place] [address], [place] [address] January, [facility] [address] [id number] [address] [place] [address], [place] [address] January, [facility] [address] [id number] [address] [place] [address], [place] [address] January, [facility] [address] [id number] [address] [place] [address], [place] [address] January, [facility] [address] [id number] [facility] [place] [address] Dec, [facility] [address] [id number] [address] [place] [address], [place] [address] Dec, [facility] [address] [id number] [facility] [place] [address] Dec, [facility] [address] [id number] [address] [place] [address], [place] [address] Dec, [facility] [address] [id number] [address] [place] [address], [place] [address] Dec, [facility] [address] [id number] [address] [place] [address], [place] [address] Dec, [facility] [address] [id number] [address] [place] [address], [place] [address] Nov, [facility] [address] [id number] [address] [place] [address], [place] [address] Nov, [facility] [address] [id number] [address] [place] [address], [place] [address] Nov, [facility] [address] [id number] [address] [place] [address], [place] [address] Nov, [facility] [address] [id number] [address] [place] [address], [place] [address] Nov, [facility] [address] [id number] [address] [place] [address], [place] [address] Nov, [facility] [address] [id number] [address] [place] [address], [place] [address] Nov, [facility] [address] [id number] [address] [place] [address], [place] [address] Nov, [facility] [address] [id number] [address] [place] [address], [place] [address] Oct, [facility] [address] [id number] [address] [place] [address], [place] [address] Oct, [facility] [address] [id number] [address] [place] [address], [place] [address] Sep, [facility] [address] [id number] [address] [place] [address], [place] [address] Sep, [facility] [address] [id number] [address] [place] [address], [place] [address] Sep, [facility] [address] [id number] [address] [place] [address], [place] [address] Sep, [facility] [address] [id number] [address] [place] [address], [place] [address] Aug, [facility] [address] [id number] [address] [place] [address], [place] [address] Aug, [facility] [address] [id number] [address] [place] [address], [place] [address] Aug, [facility] [address] [id number] [address] [place] [address], [place] [address] Aug, [facility] [address] [id number] [address] [place] [address], [place] [address] Jul, [facility] [address] [id number] [address] [place] [address], [place] [address] Jul, [facility] [address] [id number] [address] [place] [address], [place] [address] Jul, [facility] [address] [id number] [address] [place] [address], [place] [address] Jul, [facility] [address] [id number] [address] [place] [address], [place] [address] Jul, [facility] [address] [id number] [address] [place] [address], [place] [address] Jul, [facility] [address] [id number] [address] [place] [address], [place] [address] Jul, [facility] [address] [id number] [address] [place] [address] [place] [address] Jul, [facility] [address] [id number] [address] [place] [address], [place] [address] Jul, [facility] [address] [id number] [address] [place] [address] Jul, [facility] [address] [id number] [address] [place] [address], [place] [address] Jul, [facility] [address] [id number] [address] [place] [address], [place] [address] Jul, [facility] [address] [id number] [address] [place] [address], [place] [address] Jun, [facility] [address] [id number] [address] [place] [address], [place] [address] Jun, [facility] [address] [id number] [address] [place] [address] Jun, [facility] [address] [id number] [address] [place] [address], [place] [address] Jun, [facility] [address] [id number] [address] [place] [address] 16 Jun, 2013 [facility] [address] [id number] [address] [place] [address] Jun, [facility] [address] [id number] [address] [place] [address] 14 Jun, 2013 [facility] [address] [id number] [address] [place] [address] 02 Jun, 2013 [facility] [address] [id number] [address] [place] [address] 15 May, 2013 [facility] [address] [id number] [address] [place] [id number] 05 May, 2012 [facility] [address] [id number] [address] [place] [id number] 04 May, 2012 [facility] [address] [id number] [address] [place] [address], [place] [address] Apr, [facility] [address] [id number] [address] [place] [address], [place] [address] Apr, [facility] [address] [id number] [address] [place] [address], [place] [address] Mar, [facility] [address] [id number] [address] [place] [address], [place] [address] Mar, [facility] [address] [id number] [address] [place] [address], [place] [address] Feb, [facility] [address] [id number] [address] [place] [address], [place] [address] January, [facility] [address] [id number] [address] [place] [address], [place] [address] January, [facility] [address] [id number] [address] [place] [address], [place] [address] January, [facility] [address] [id number] [address] [place] [address], [place] [address] January, [facility] [address] [id number] [address] [place] [address], [place] [address] January, [facility] [address] [id number] [address] [place] [address], [place] [address] Dec, [facility] [address] [id number] [address] [place] [address], [place] [address] Dec, [facility] [address] [id number] [address] [place] [address], [place] [address] Dec, [facility] [address] [id number] [address] [place] [address], [place] [address] Nov, [facility] [address] [id number] [address] [place] [address], [place] [address] Oct, [facility] [address] [id number] [address] [place] [address], [place] [address] 18 Oct, 2012 [facility] [address] [id number] [address] [place] [address], [place] [address] 15 Oct, 2012 [facility] [address] [id number] [address] [place] [address], [place] [address] 18 Sep, 2012 [facility] [address] [id number] [address] [place] [address], [place] [address] 16 Sep, 2012 [facility] [address] [id number] [address] [place] [address], [place] [address] 14 Aug, 2012 [facility] [address] [id number] [address] [place] [address], [place] [address] 14 Aug, 2012 [facility] [address] [id number] [address] [place] [address], [place] [address] Aug, [facility] [address] [id number] [address] [place] [address], [place] [address] Aug, [facility] [address] [id number] [address] [place] [address], [place] [address] Jul, [facility] [address] [id number] [address] [place] [address], [place] [address] Jul, [facility] [address] [id number] [address] [place] [address], [place] [address] Jul, [facility] [address] [id number] [address] [place] [address], [place] [address] Jul, [facility] [address] [id number] [address] [place] [address] Jul, [facility] [address] [id number] [address] [place] [address], [place] [address] 15 Jun, 2012 [facility] [address] [id number] [address] [place] [address], [place] [address] 15 Jun, 2012 [facility] [address] [id number] [address] [place] [address], [place] [address] 10 Jun, 2012 [facility] [address] [id number] [address] [place] [address], [place] [address] 10 Jun, 2012 [facility] [address] [id number] [address] [place] [address], [place] [address] 10 May, 2012 [facility] [address] [id number] [address] [place] [address], [place] [address] Apr, [facility] [address] [id number] [address] [place] [address], [place] [address] Apr, [facility] [address] [id number] [address] [place] [address], [place] [address] Apr, [facility] [address] [id number] [address] [place] [address], [place] [address] Apr, [facility] [address] [id number] [address] [place] [address], [place] [address] January, [facility] [address] [id number] [address] [place] [address], [place] [address] January, [facility] [address] [id number] [address] [place] [address], [place] [address] Dec, [facility] [address] [id number] [address] [place] [address], [place] [address] Dec, [facility] [address] [id number] [address] [place] [address], [place] [address] Nov, [facility] [address] [id number] [address] [place] [address], [place] [address] Nov, [facility] [address] [id number] [address] [place] [address], [place] [address] Nov, [facility] [address] [id number] [address] [place] [address], [place] [address] Nov, [facility] [address] [id number] [address] [place] [address], [place] [address] Oct, [facility] [address] [id number] [address] [place] [address], [place] [address] Oct, [facility] [address] [id number] [address] [place] [address], [place] [address] Oct, [facility] [address] [id number] [address] [place] [address], [place] [address] Sep, [facility] [address] [id number] [address] [place] [address], [place] [address] Sep, [facility] [address] [id number] [address] [place] [address], [place] [address] Aug, [facility] [address] [id number] [address] [place] [address], [place] [address] Aug, [facility] [address] [id number] [address] [place] [address], [place] [address] Jul, [facility] [address] [id number] [address] [place] [address], [place] [address] Jul, [facility] [address] [id number] [address] [place] [address], [place] [address] Jul, [facility] [address] [id number] [address] [place] [address], [place] [address] Jun, [facility] [address] [id number] [address] [place] [address], [place] [address] Jun, [facility] [address] [id number] [address] [place] [address] Jun, [facility] [address] [id number] [address] [place] [address] Jun, [facility] [address] [id number] [address] [place] [address], [place] [address] Jun, [facility] [address] [id number] [address] [place] [address], [place] [address] Jun, [facility] [address] [id number] [address] [place] [address], [place] [address] 29 Aug, 2010 [facility] [address] [id number] [address] [place] [address], [place] [address] 12 Aug, 2010 [facility] [address] [id number] [address] [place] [address], [place] [address] 08 Aug, 2010 [facility] [address] [id number] [address] [place] [address], [place] [address] 29 Jul, 2010 [facility] [address] [id number] [address] [place] [address], [place] [address] 27 Jul, 2010 [facility] [address] [id number] [address] [place] [address], [place] [address] Jul, [facility] [address] [id number] [address] [place] [address], [place] [address] 15 Jul, 2010 [facility] [address] [id number] [address] [place] [address], [place] [address] 15 Jul, 2010 [facility] [address] [id number] [address] [place] [address], [place] [address] 08 Jul, 2010 [facility] [address] [id number] [address] [place] [address], [place] [address] Jun, [facility] [address] [id number] [address] [place] [address], [place] [address] 10 Apr, 2010 [facility] [address] [id number] [address] [place] [address], [place] [address] Feb, [facility] [address] [id number] [address] [place] [address], [place] [address] 10 Oct, 2009 [facility] [address] [id number] [address] [place] [address], [place] [address] 13 Sep, 2009 [facility] [address] [id number] [address] [place] [address], [place] [address] 18 Aug, 2009 [facility] [address] [id number] [address] [place] [address], [place] [address] 18 Aug, 2009 [facility] [address] [id number] [address] [place] [address], [place] [address] Aug, [facility] [place] [address] [facility] [id number] [address] [place] [id number] Jul, [facility] [place] [address] [facility] [id number] [address] [place] [address] Jun, IMMUNIZATIONS No Known Immunizations SOCIAL HISTORY Never Assessed REASON FOR VISIT [facility] [place] PLAN OF CARE VITAL SIGNS MEDICATIONS Medication Instructions Dosage Frequency Start Date End Date Duration S tatus Zithromax Z-Edd 250 mg 2 tablet by Oral route 1 time per day for 1 days then take 1 tab daily on days 2-5 Oct, Active Valium 5 mg 1 tablet by Oral route 1 time per day hs Oct, Active PredniSONE 20 mg 2 tablet by Oral route 1 time per day for 5 day(s) Dec, Active Cipro 500 mg take 1 tablet by Oral route every 12 hour s for 5 day(s) Oct, Active Amoxicillin 500 mg 1 capsule by Oral route 3 times per day for 14 days Jul, Active Imitrex 100 mg 1 tablet by Oral rou te 1 time per day PRN may repeat dose once in 2 hours ; quantity must last 30 days Oct, Active meclizine 25 mg 1 tablet by Oral route 4 times per day PRN Nov, Active tramadol 50 mg take 2 tablets by Oral route every 6 ho urs as needed PRN Nov, Active RESULTS No Results PROCEDURES No Known [...]
--- OUTSIDE RECORDS SUMMARY | 2020-02-22 17:25 | XMS REPORT ---
Author Author Marion Alexander Doctor Organization [facility] Address Unknown Phone Unavailable Care Team Providers Care Bb Shot Packer Name Role Phone Migration, Doctor Unavailable Unavailable PROBLEMS Type Condition ICD9-CM Code PKR01-EV Code Onset Dates Condition S tatus SNOMED Code Problem Migraine without aura and without status migrain osus, not intractable G43.009 Active 512104847 Problem Acquired hypothyroidism E03.9 Active 268914788 Problem Cervical disc disease M50.90 Active 131700241 Problem Dyspepsia R10.13 Active [id number] ALLERGIES No Information ENCOUNTERS Encounter Location Date Diagnosis [place] [address] [place] [id number] [address] [place] [address] Dec, Cervical disc disease M50.90 [place] [address] [place] [id number] [address] [place] [address] Dec, Cervical disc disease M50.90 [place] [address] [facility] [id number] [address] [place] [address] Dec, Cervical disc disease M50.90 [place] [id number] [place] [id number] [address] [place] [address] Dec, Cervical disc disease M50.90 ; Acquired hypothyroidism E03.9 and Migraine without aura and without status migrainosus, not intractable G43.009 [facility] [address] [facility] [id number] [address] [place] [address] Nov, [place] [address] [place] [id number] [address] [place] [address] Nov, Cervical disc disease M50.90 [place] [address] [facility] [id number] [address] [place] [address] Oct, Cervical disc disease M50.90 [place] [address] [facility] [id number] [address] [place] [address] Sep, [facility] [address] [id number] [address] [place] [address] Sep, Cervical disc disease M50.90 [facility] [address] [id number] [address] [place] [address] Aug, Cervical disc disease M50.90 [facility] [address] [id number] [address] [place] [address] Jul, Cervical disc disease M50.90 [facility] [address] [id number] [address] [place] [address] Jun, Acute recurrent pansinusitis J01.41 and Cervical disc disease M50.90 [facility] [address] [id number] [address] [place] [address] Jun, Cervical disc disease M50.90 [facility] [address] [id number] [address] [place] [address] May, Cervical disc disease M50.90 [facility] [address] [id number] [address] [place] [address] Apr, Cervical disc disease M50.90 [facility] [address] [id number] [address] [place] [address] Mar, Cervical disc disease M50.90 [facility] [address] [id number] [address] [place] [address] Mar, [facility] [address] [id number] [address] [place] [address] Mar, Cervical disc disease M50.90 [facility] [address] [id number] [address] [place] [address] Feb, Cervical disc disease M50.90 [facility] [address] [id number] [address] [place] [address] January, Cervical disc disease M50.90 [facility] [address] [id number] [address] [place] [address] Dec, [facility] [address] [facility] [id number] [address] [place] [address] Dec, Cervical disc disease M50.90 [facility] [address] [place] [id number] [address] [place] [address] Nov, Cervical disc disease M50.90 [facility] [address] [address] Nov, Cervical disc disease M50.90 [facility] [address] [place] [id number] [place] [address] 15 Oct, 2017 Cervical disc disease M50.90 [facility] [address] [place] [id number] [place] [address] 12 Oct, 2017 Cervical disc disease M50.90 and Acute non-recurrent maxillary sinusitis J01.00 [place] [address] [address] Sep, Cervical disc disease M50.90 [facility] [address] [address] Sep, [facility] [address] [address] Sep, Fatigue, unspecified type R5 3.83 and Cough R05 [facility] [address] [address] Aug, Cervical disc disease M50.90 [facility] [address] [place] [id number] [address] [place] [address] 16 Aug, 2017 Sore throat J02.9 ; Canker s ore K12.0 and History of anemia Z86.2 [facility] [address] [place] [id number] [address] [place] [address] Jul, Cervical disc disease M50.90 [facility] [address] [address] Jun, Cervical disc disease M50.90 [facility] [address] [id number] [address] [place] [address] Jun, Cervical disc disease M50.90 [facility] [address] [id number] [address] [place] [address] May, Cervical disc disease M50.90 [facility] [address] [id number] [address] [place] [address] Apr, Cervical disc disease M50.90 [facility] [address] [id number] [address] [place] [address] Apr, [facility] [address] [id number] [address] [place] [address] Feb, Cervical disc disease M50.90 [facility] [address] [id number] [address] [place] [address] January, Cervical disc disease M50.90 [facility] [address] [id number] [address] [place] [address] Nov, [facility] [address] [id number] [address] [place] [address] Nov, Cervical disc disease M50.90 [facility] [address] [id number] [address] [place] [address] Nov, Acute cystitis with hematuri a N30.01 and Dysuria R30.0 [facility] [address] [id number] [address] [place] [address] Oct, Cervical disc disease M50.90 and Acute non-recurrent frontal sinusitis J01.10 [facility] [address] [id number] [address] [place] [address] Sep, Neck pain M54.2 [facility] [address] [facility] [id number] [address] [place] [address] Sep, [facility] [address] [id number] [address] [place] [address] Aug, Cervical disc disease M50.90 [facility] [address] [facility] [id number] [address] [place] [address] Jul, [facility] [address] [facility] [id number] [address] [place] [address] Jun, [facility] [address] [facility] [id number] [address] [place] [address] May, [facility] [address] [facility] [id number] [address] [place] [address] May, Screening for diabetes emilio tunakia Z13.1 ; Chronic fatigue R53.82 and Edema, unspecified type R60.9 [facility] [address] [facility] [id number] [address] [place] [address] Apr, Neck pain M54.2 [facility] [address] [facility] [id number] [address] [place] [address] Mar, [facility] [address] [facility] [id number] [address] [place] [address] Mar, Neck pain M54.2 [facility] [address] [facility] [id number] [address] [place] [address] Feb, Cervical disc disease M50.90 [facility] [address] [facility] [id number] [address] [place] [address] Feb, Cervical disc disease M50.90 [facility] [address] [facility] [id number] [address] [place] [address] January, [facility] [address] [facility] [id number] [address] [place] [address] January, [facility] [address] [facility] [id number] [address] [place] [address] January, Cervical disc disease M50.90 [facility] [address] [facility] [id number] [address] [place] [address] January, [facility] [address] [id number] [address] [place] [address] January, [facility] [address] [id number] [address] [place] [address] Dec, Cervical disc disease M50.90 [facility] [address] [id number] [address] [place] [address] Nov, Cervical disc disease M50.90 [facility] [address] [id number] [address] [place] [address] Oct, Cervical disc disease M50.90 [facility] [address] [id number] [address] [place] [address] Sep, Cervical disc disease M50.90 [facility] [address] [id number] [address] [place] [id number] Aug, Dental caries K02.9 and Enco unter for dental examination Z01.20 [facility] [address] [id number] [address] [place] [address] Aug, [facility] [address] [id number] [address] [place] [address] Aug, [facility] [address] [id number] [address] [place] [address] [id number] Aug, Encounter for dental examina tion Z01.20 [facility] [address] [id number] [address] [place] [address] Jul, [facility] [address] [id number] [address] [place] [address] Jun, Sinusitis J32.9 and Cervical disc disease M50.90 [facility] [address] [id number] [address] [place] [address] Jun, [facility] [address] [id number] [address] [place] [address] 24 May, 2015 [facility] [address] [id number] [address] [place] [address] May, [facility] [address] [id number] [address] [place] [address] May, [facility] [address] [id number] [address] [place] [address] May, [facility] [address] [id number] [address] [place] [address] Apr, Cervical spondylosis without myelopathy 721.0 [facility] [address] [id number] [address] [place] [address] Mar, [facility] [address] [id number] [address] [place] [address] January, Cervical spondylosis without myelopathy 721.0 [facility] [address] [id number] [address] [place] [address] Dec, [facility] [address] [id number] [address] [place] [address] Dec, [facility] [address] [id number] [address] [place] [address] Dec, [facility] [address] [id number] [address] [place] [address] Nov, [facility] [address] [id number] [address] [place] [address] Nov, [facility] [address] [id number] [address] [place] [address] Oct, [facility] [address] [id number] [address] [place] [address] Oct, [facility] [address] [id number] [address] [place] [address] Oct, [facility] [address] [id number] [address] [place] [address] Oct, [facility] [address] [id number] [address] [place] [address], [place] [address] Oct, 2014 [facility] [address] [id number] [address] [place] [address], [place] [address] Oct, 2014 [facility] [address] [id number] [address] [place] [address], [place] [address] Oct, 2014 [facility] [address] [id number] [address] [place] [address], [place] [address] Oct, 2014 [facility] [address] [id number] [address] [place] [address], [place] [address] Oct, 2014 [facility] [address] [id number] [address] [place] [address], [place] [address] Oct, [facility] [address] [id number] [address] [place] [address], [place] [address] Sep, [facility] [address] [id number] [address] [place] [address], [place] [address] Sep, [facility] [address] [id number] [address] [place] [address], [place] [address] Sep, [facility] [address] [id number] [address] [place] [address], [place] [address] Sep, [facility] [address] [id number] [address] [place] [address], [place] [address] Sep, [facility] [address] [id number] [address] [place] [address], [place] [address] Sep, [facility] [address] [id number] [address] [place] [address], [place] [address] Sep, [facility] [address] [id number] [address] [place] [address], [place] [address] Sep, [facility] [address] [id number] [address] [place] [address], [place] [address] Sep, [facility] [address] [id number] [address] [place] [address], [place] [address] Aug, [facility] [address] [id number] [address] [place] [address], [place] [address] Aug, [facility] [address] [id number] [address] [place] [address], [place] [address] Aug, [facility] [address] [id number] [address] [place] [address], [place] [address] Aug, [facility] [address] [id number] [address] [place] [address], [place] [address] Jul, [facility] [address] [id number] [address] [place] [address], [place] [address] Jul, [facility] [address] [id number] [address] [place] [address], [place] [address] Jul, [facility] [address] [id number] [address] [place] [address], [place] [address] Jul, [facility] [address] [id number] [address] [place] [address], [place] [address] Jul, [facility] [address] [id number] [address] [place] [address], [place] [address] Jul, [facility] [address] [id number] [address] [place] [address], [place] [address] Jul, [facility] [address] [id number] [address] [place] [address], [place] [address] Jul, [facility] [address] [id number] [address] [place] [address], [place] [address] Jun, [facility] [address] [id number] [address] [place] [address], [place] [address] Jun, [facility] [address] [id number] [address] [place] [address], [place] [address] Jun, [facility] [address] [id number] [address] [place] [address], [place] [address] Jun, [facility] [address] [id number] [address] [place] [address], [place] [address] 16 Jun, 2014 [facility] [address] [id number] [address] [place] [address], [place] [address] 15 Jun, 2014 [facility] [address] [id number] [address] [place] [address], [place] [address] 15 Jun, 2014 [facility] [address] [id number] [address] [place] [address], [place] [address] 14 Jun, 2014 [facility] [address] [id number] [address] [place] [address], [place] [address] 14 Jun, 2014 [facility] [address] [id number] [address] [place] [address], [place] [address] 11 Jun, 2014 [facility] [address] [id number] [address] [place] [address], [place] [address] Jun, [facility] [address] [id number] [address] [place] [address], [place] [address] 24 May, 2014 [facility] [address] [id number] [address] [place] [address], [place] [address] 24 May, 2014 [facility] [address] [id number] [address] [place] [address], [place] [address] 08 May, 2014 [facility] [address] [id number] [address] [place] [address], [place] [address] 02 May, 2014 [facility] [address] [id number] [address] [place] [address], [place] [address] May, [facility] [address] [id number] [address] [place] [address], [place] [address] Apr, [facility] [address] [id number] [address] [place] [address], [place] [address] Apr, [facility] [address] [id number] [address] [place] [address], [place] [address] Apr, [facility] [address] [id number] [address] [place] [address], [place] [address] Apr, [facility] [address] [id number] [address] [place] [address], [place] [address] Apr, [facility] [address] [id number] [address] [place] [address], [place] [address] Apr, [facility] [address] [id number] [address] [place] [address], [place] [address] Mar, [facility] [address] [id number] [address] [place] [address], [place] [address] Mar, [facility] [address] [id number] [address] [place] [address], [place] [address] Mar, [facility] [address] [id number] [address] [place] [address], [place] [address] Mar, [facility] [address] [id number] [address] [place] [address], [place] [address] Mar, [facility] [address] [id number] [address] [place] [address], [place] [address] Mar, [facility] [address] [id number] [address] [place] [address], [place] [address] Feb, [facility] [address] [id number] [address] [place] [address], [place] [address] Feb, [facility] [address] [id number] [address] [place] [address], [place] [address] Feb, [facility] [address] [id number] [address] [place] [address], [place] [address] Feb, [facility] [address] [id number] [address] [place] [address], [place] [address] Feb, [facility] [address] [id number] [address] [place] [address], [place] [address] Feb, [facility] [address] [id number] [address] [place] [address], [place] [address] Feb, [facility] [address] [id number] [address] [place] [address], [place] [address] Feb, [facility] [address] [id number] [address] [place] [address], [place] [address] January, [facility] [address] [id number] [address] [place] [address], [place] [address] January, [facility] [address] [id number] [address] [place] [address], [place] [address] January, [facility] [address] [id number] [address] [place] [address], [place] [address] January, [facility] [address] [id number] [address] [place] [address], [place] [address] January, [facility] [address] [id number] [address] [place] [address], [place] [address] January, [facility] [address] [id number] [address] [place] [address], [place] [address] January, [facility] [address] [id number] [address] [place] [address], [place] [address] January, [facility] [address] [id number] [address] [place] [address], [place] [address] Dec, [facility] [address] [id number] [address] [place] [address], [place] [address] Dec, [facility] [address] [id number] [address] [place] [address], [place] [address] Dec, [facility] [address] [id number] [address] [place] [address], [place] [address] Dec, [facility] [address] [id number] [address] [place] [address], [place] [address] Dec, [facility] [address] [id number] [address] [place] [address], [place] [address] Dec, [facility] [address] [id number] [address] [place] [address], [place] [address] Nov, [facility] [address] [id number] [facility] [place] [address] Nov, [facility] [address] [id number] [facility] [place] [address] Nov, [facility] [address] [id number] [facility] [place] [address] Nov, [facility] [address] [id number] [address] [place] [address], [place] [address] Nov, [facility] [address] [id number] [address] [place] [address], [place] [address] Nov, [facility] [address] [id number] [address] [place] [address], [place] [address] Nov, [facility] [address] [id number] [address] [place] [address], [place] [address] Nov, [facility] [address] [id number] [address] [place] [address], [place] [address] Oct, [facility] [address] [id number] [address] [place] [address], [place] [address] Oct, [facility] [address] [id number] [address] [place] [address], [place] [address] Sep, [facility] [address] [id number] [address] [place] [address], [place] [address] Sep, [facility] [address] [id number] [address] [place] [address], [place] [address] Sep, [facility] [address] [id number] [address] [place] [address], [place] [address] Sep, [facility] [address] [id number] [address] [place] [address], [place] [address] Aug, [facility] [address] [id number] [address] [place] [address], [place] [address] Aug, [facility] [address] [id number] [address] [place] [address], [place] [address] Aug, [facility] [address] [id number] [address] [place] [address], [place] [address] Aug, [facility] [address] [id number] [address] [place] [address], [place] [address] Jul, [facility] [address] [id number] [address] [place] [address], [place] [address] Jul, [facility] [address] [id number] [address] [place] [address] Jul, [facility] [facility] [address] [id number] [address] [place] [address], [place] [address] Jul, [facility] [address] [id number] [address] [place] [id number] Jul, [facility] [address] [id number] [address] [place] [address], [place] [address] Jul, [facility] [address] [id number] [address] [place] [address] Jul, [facility] [address] [id number] [address] [place] [address], [place] [address] Jul, [facility] [address] [id number] [address] [place] [address] Jul, [facility] [address] [id number] [address] [place] [address] Jul, [facility] [address] [id number] [address] [place] [address] Jul, [facility] [address] [id number] [address] [place] [address], [place] [address] Jul, [facility] [address] [id number] [address] [place] [address] Jun, [facility] [address] [id number] [address] [place] [address] Jun, [facility] [address] [id number] [address] [place] [address], [place] [address] Jun, [facility] [address] [id number] [address] [place] [address], [place] [address] 21 Jun, 2013 [facility] [address] [id number] [address] [place] [address], [place] [address] 16 Jun, 2013 [facility] [address] [id number] [address] [place] [address], [place] [address] 14 Jun, 2013 [facility] [address] [id number] [address] [place] [address], [place] [address] 14 Jun, 2013 [facility] [address] [id number] [address] [place] [address], [place] [address] 02 Jun, 2013 [facility] [address] [id number] [address] [place] [address], [place] [address] 15 May, 2013 [facility] [address] [id number] [address] [place] [address], [place] [address] 05 May, 2013 [facility] [address] [id number] [address] [place] [address], [place] [address] 04 May, 2013 [facility] [address] [id number] [address] [place] [address], [place] [address] Apr, [facility] [address] [id number] [address] [place] [address], [place] [address] Apr, [facility] [address] [id number] [address] [place] [address], [place] [address] Mar, [facility] [address] [id number] [address] [place] [address], [place] [address] Mar, [facility] [address] [id number] [address] [place] [address], [place] [address] Feb, [facility] [address] [id number] [address] [place] [address], [place] [address] January, [facility] [address] [id number] [address] [place] [address], [place] [address] January, [facility] [address] [id number] [address] [place] [address], [place] [address] 14 Jan, 2013 [facility] [address] [id number] [address] [place] [address], [place] [address] January, [facility] [address] [id number] [address] [place] [address], [place] [address] January, [facility] [address] [id number] [address] [place] [address], [place] [address] 29 Dec, 2012 [facility] [address] [id number] [address] [place] [address], [place] [address] Dec, [facility] [address] [id number] [address] [place] [address], [place] [address] Dec, [facility] [address] [id number] [address] [place] [address], [place] [address] Nov, [facility] [address] [id number] [address] [place] [address], [place] [address] Oct, [facility] [address] [id number] [address] [place] [address], [place] [address] 18 Oct, 2012 [facility] [address] [id number] [address] [place] [address], [place] [address] 15 Oct, 2012 [facility] [address] [id number] [address] [place] [address], [place] [address] Sep, [facility] [address] [id number] [address] [place] [address], [place] [address] 16 Sep, 2012 [facility] [address] [id number] [address] [place] [address], [place] [address] 14 Aug, 2012 [facility] [address] [id number] [address] [place] [address], [place] [address] 14 Aug, 2012 [facility] [address] [id number] [address] [place] [address], [place] [address] 11 Aug, 2012 [facility] [address] [id number] [address] [place] [address], [place] [address] Aug, [facility] [address] [id number] [address] [place] [address], [place] [address] Jul, [facility] [address] [id number] [address] [place] [address], [place] [address] Jul, [facility] [address] [id number] [address] [place] [address], [place] [address] Jul, [facility] [address] [id number] [address] [place] [address], [place] [address] Jul, [facility] [address] [id number] [address] [place] [address], [place] [address] Jul, [facility] [address] [id number] [address] [place] [address], [place] [address] Jun, [facility] [address] [id number] [address] [place] [address], [place] [address] Jun, [facility] [address] [id number] [address] [place] [address], [place] [address] Jun, [facility] [address] [id number] [address] [place] [address], [place] [address] Jun, [facility] [address] [id number] [address] [place] [address], [place] [address] May, [facility] [address] [id number] [address] [place] [address], [place] [address] Apr, [facility] [address] [id number] [address] [place] [address], [place] [address] Apr, [facility] [address] [id number] [address] [place] [address], [place] [address] Apr, [facility] [address] [id number] [address] [place] [address], [place] [address] Apr, [facility] [address] [id number] [address] [place] [address], [place] [address] January, [facility] [address] [id number] [address] [place] [address], [place] [address] January, [facility] [address] [id number] [address] [place] [address], [place] [address] Dec, [facility] [address] [id number] [address] [place] [address], [place] [address] Dec, [facility] [address] [id number] [address] [place] [address], [place] [address] Nov, [facility] [address] [id number] [address] [place] [address], [place] [address] Nov, [facility] [address] [id number] [address] [place] [address], [place] [address] Nov, [facility] [address] [id number] [address] [place] [address], [place] [address] Nov, [facility] [address] [id number] [address] [place] [address], [place] [address] Oct, [facility] [address] [id number] [address] [place] [address], [place] [address] Oct, [facility] [address] [id number] [address] [place] [address], [place] [address] Oct, [facility] [address] [id number] [address] [place] [address], [place] [address] Sep, [facility] [address] [id number] [address] [place] [address], [place] [address] Sep, [facility] [address] [id number] [address] [place] [address], [place] [address] Aug, [facility] [address] [id number] [address] [place] [address], [place] [address] Aug, [facility] [address] [id number] [address] [place] [address], [place] [address] Jul, [facility] [address] [id number] [address] [place] [address], [place] [address] Jul, [facility] [address] [id number] [address] [place] [address], [place] [address] Jul, [facility] [address] [id number] [address] [place] [address], [place] [address] Jun, [facility] [address] [id number] [address] [place] [address], [place] [address] Jun, [facility] [address] [id number] [address] [place] [address], [place] [address] Jun, [facility] [address] [id number] [address] [place] [address], [place] [address] Jun, [facility] [address] [id number] [address] [place] [address], [place] [address] Jun, [facility] [address] [id number] [address] [place] [address], [place] [address] Jun, [facility] [address] [id number] [address] [place] [address], [place] [address] Aug, [facility] [address] [id number] [address] [place] [address], [place] [address] Aug, [facility] [address] [id number] [address] [place] [address], [place] [address] Aug, [facility] [address] [id number] [address] [place] [address], [place] [address] Jul, [facility] [address] [id number] [address] [place] [address], [place] [address] Jul, [facility] [address] [id number] [address] [place] [address], [place] [address] Jul, [facility] [address] [id number] [address] [place] [address], [place] [address] 15 Jul, 2010 [facility] [address] [id number] [address] [place] [address], [place] [address] 15 Jul, 2010 [facility] [address] [id number] [address] [place] [address] 08 Jul, 2010 [facility] [address] [id number] [address] [place] [address] Jun, [facility] [address] [id number] [address] [place] [address] Apr, [facility] [address] [id number] [address] [place] [address] Feb, [facility] [address] [id number] [address] [place] [address] Oct, [facility] [address] [id number] [address] [place] [address] Sep, [facility] [address] [id number] [address] [place] [address] Aug, [facility] [address] [id number] [address] [place] [address] Aug, [facility] [address] [id number] [address] [place] [address] Aug, [facility] [address] [id number] [address] [place] [address] Jul, [facility] [address] [id number] [address] [place] [address] Jun, IMMUNIZATIONS No Known Immunizations SOCIAL HISTORY Never Assessed REASON FOR VISIT [facility] PLAN OF CARE VITAL SIGNS MEDICATIONS Unknown [...]
--- OUTSIDE RECORDS SUMMARY | 2020-02-22 17:25 | XMS REPORT ---
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 Name Role Phone Migration, Doctor Unavailable Unavailable PROBLEMS Type Condition ICD9-CM Code EBO35-CW Code Onset Dates Condition S tatus SNOMED Code Problem Migraine without aura and without status migrain osus, not intractable G43.009 Active 770369893 Problem Acquired hypothyroidism E03.9 Active 284023169 Problem Cervical disc disease M50.90 Active 090155031 Problem Dyspepsia R10.13 Active [id number] ALLERGIES No Information ENCOUNTERS Encounter Location Date Diagnosis [place] [address] [place] [id number] [place] [address] January, Cervical disc disease M50.90 [place] [address] [place] [id number] [address] [place] [address] January, Cervical disc disease M50.90 [facility] [address] [facility] [id number] [address] [place] [address] Dec, Cervical disc disease M50.90 [facility] [address] [place] [id number] [address] [place] [address] Dec, Cervical disc disease M50.90 [facility] [address] [place] [id number] [address] [place] [address] Dec, Cervical disc disease M50.90 [facility] [address] [place] [id number] [address] [place] [address] Dec, Cervical disc disease M50.90 ; Acquired hypothyroidism E03.9 and Migraine without aura and without status migrainosus, not intractable G43.009 [facility] [address] [facility] [id number] [address] [place] [address] Nov, [facility] [address] [facility] [id number] [address] [place] [address] Nov, Cervical disc disease M50.90 [facility] [address] [id number] [address] [place] [address] Oct, Cervical disc disease M50.90 [facility] [address] [id number] [address] [place] [address] Sep, [facility] [address] [id number] [address] [place] [address] Sep, Cervical disc disease M50.90 [facility] [address] [id number] [address] [place] [address] Aug, Cervical disc disease M50.90 [facility] [address] [id number] [address] [place] [address] Jul, Cervical disc disease M50.90 [facility] [address] [id number] [address] [place] [address] Jun, Acute recurrent pansinusitis J01.41 and Cervical disc disease M50.90 [facility] [address] [id number] [address] [place] [address] Jun, Cervical disc disease M50.90 [facility] [address] [id number] [address] [place] [address] May, Cervical disc disease M50.90 [facility] [address] [id number] [address] [place] [address] Apr, Cervical disc disease M50.90 [facility] [address] [id number] [address] [place] [address] Mar, Cervical disc disease M50.90 [facility] [address] [id number] [address] [place] [address] Mar, [facility] [address] [id number] [address] [place] [address] Mar, Cervical disc disease M50.90 [facility] [address] [id number] [address] [place] [address] Feb, Cervical disc disease M50.90 [facility] [address] [id number] [address] [place] [address] January, Cervical disc disease M50.90 [facility] [address] [id number] [address] [place] [address] Dec, [facility] [address] [facility] [id number] [address] [place] [address] Dec, Cervical disc disease M50.90 [facility] [address] [id number] [address] [place] [address] Nov, Cervical disc disease M50.90 [facility] [address] [facility] [id number] [address] [place] [address] Nov, Cervical disc disease M50.90 [facility] [address] [facility] [id number] [address] [place] [address] Oct, Cervical disc disease M50.90 [facility] [address] [id number] [address] [place] [address] Oct, Cervical disc disease M50.90 and Acute non-recurrent maxillary sinusitis J01.00 [facility] [address] [facility] [id number] [address] [place] [address] Sep, Cervical disc disease M50.[address] [facility] [address] [facility] [id number] [address] [place] [address] Sep, [facility] [address] [facility] [id number] [address] [place] [address] Sep, Fatigue, unspecified type R5 3.83 and Cough R05 [facility] [address] [facility] [id number] [address] [place] [address] Aug, Cervical disc disease M50.90 [facility] [address] [facility] [id number] [address] [place] [address] Aug, Sore throat J02.9 ; Canker s ore K12.0 and History of anemia Z86.2 [facility] [address] [facility] [id number] [address] [place] [address] Jul, Cervical disc disease M50.90 [facility] [address] [facility] [id number] [address] [place] [address] Jun, Cervical disc disease M50.90 [facility] [address] [place] [id number] [address] [place] [address] Jun, Cervical disc disease M50.90 [facility] [address] [facility] [id number] [address] [place] [address] May, Cervical disc disease M50.90 [facility] [address] [facility] [id number] [address] [place] [address] Apr, Cervical disc disease M50.90 [facility] [address] [place] [id number] [address] [place] [address] Apr, [facility] [address] [facility] [id number] [address] [place] [address] Feb, Cervical disc disease M50.90 [facility] [address] [place] [id number] [address] [place] [address] January, Cervical disc disease M50.90 [facility] [address] [place] [id number] [address] [place] [address] Nov, [facility] [address] [place] [id number] [address] [place] [address] Nov, Cervical disc disease M50.90 [facility] [address] [facility] [id number] [address] [place] [address] Nov, Acute cystitis with hematuri a N30.01 and Dysuria R30.0 [facility] [address] [facility] [id number] [address] [place] [address] Oct, Cervical disc disease M50.90 and Acute non-recurrent frontal sinusitis J01.10 [facility] [address] [id number] [address] [place] [address] Sep, Neck pain M54.2 [facility] [address] [id number] [address] [place] [address] Sep, [facility] [address] [id number] [address] [place] [address] Aug, Cervical disc disease M50.90 [facility] [address] [id number] [address] [place] [address] Jul, [facility] [address] [id number] [address] [place] [address] Jun, [facility] [address] [id number] [address] [place] [address] May, [facility] [address] [id number] [address] [place] [address] May, Screening for diabetes melli tus Z13.1 ; Chronic fatigue R53.82 and Edema, unspecified type R60.9 [facility] [address] [id number] [address] [place] [address] Apr, Neck pain M54.2 [facility] [address] [id number] [address] [place] [address] Mar, [facility] [address] [id number] [address] [place] [address] Mar, Neck pain M54.2 [facility] [address] [id number] [address] [place] [address] Feb, Cervical disc disease M50.90 [facility] [address] [id number] [address] [place] [address] Feb, Cervical disc disease M50.90 [facility] [address] [id number] [address] [place] [address] January, [facility] [address] [id number] [address] [place] [address] January, [facility] [address] [id number] [address] [place] [address] January, Cervical disc disease M50.90 [facility] [address] [id number] [address] [place] [address] January, [facility] [address] [id number] [address] [place] [address] January, [facility] [address] [id number] [address] [place] [address] Dec, Cervical disc disease M50.90 [facility] [address] [id number] [address] [place] [address] Nov, Cervical disc disease M50.90 [facility] [address] [id number] [address] [place] [address] Oct, Cervical disc disease M50.90 [facility] [address] [id number] [address] [place] [address] Sep, Cervical disc disease M50.90 [facility] [address] [id number] [address] [place] [id number] Aug, Dental caries K02.9 and Enco unter for dental examination Z01.20 [facility] [address] [id number] [address] [place] [address] 16 Aug, 2015 [facility] [address] [id number] [address] [place] [address] 15 Aug, 2015 [facility] [address] [id number] [address] [place] [address] [id number] 08 Aug, 2015 Encounter for dental examina tion Z01.20 [facility] [address] [id number] [address] [place] [address] Jul, [facility] [address] [id number] [address] [place] [address] Jun, Sinusitis J32.9 and Cervical disc disease M50.90 [facility] [address] [id number] [address] [place] [address] Jun, [facility] [address] [id number] [address] [place] [address] 24 May, 2015 [facility] [address] [id number] [address] [place] [address] May, [facility] [address] [id number] [address] [place] [address] 22 May, 2015 [facility] [address] [id number] [address] [place] [address] May, [facility] [address] [id number] [address] [place] [phone] Apr, Cervical spondylosis without myelopathy 721.0 [facility] [address] [id number] [address] [place] [address] Mar, [facility] [address] [id number] [address] [place] [address] January, Cervical spondylosis without myelopathy 721.0 [facility] [address] [id number] [address] [place] [address] Dec, [facility] [address] [id number] [address] [place] [id number] 14 Dec, 2014 [facility] [address] [id number] [address] [place] [address] Dec, [facility] [address] [id number] [address] [place] [address] Nov, [facility] [address] [id number] [address] [place] [address] Nov, [facility] [address] [id number] [address] [place] [address] Oct, [facility] [address] [id number] [address] [place] [id number] Oct, [facility] [address] [id number] [facility] [place] [address] Oct, [facility] [address] [id number] [address] [place] [address], [place] [address] Oct, [facility] [address] [id number] [address] [place] [address], [place] [address] Oct, 2014 [facility] [address] [id number] [address] [place] [address], [place] [address] Oct, 2014 [facility] [address] [id number] [address] [place] [address], [place] [address] Oct, [facility] [address] [id number] [address] [place] [address], [place] [address] Oct, [facility] [address] [id number] [address] [place] [address], [place] [address] Oct, [facility] [address] [id number] [address] [place] [address], [place] [address] Oct, [facility] [address] [id number] [address] [place] [address], [place] [address] Sep, [facility] [address] [id number] [address] [place] [address], [place] [address] Sep, [facility] [address] [id number] [address] [place] [address], [place] [address] Sep, [facility] [address] [id number] [address] [place] [address], [place] [address] Sep, [facility] [address] [id number] [address] [place] [address], [place] [address] Sep, [facility] [address] [id number] [address] [place] [address], [place] [address] Sep, [facility] [address] [id number] [address] [place] [address], [place] [address] Sep, [facility] [address] [id number] [address] [place] [address], [place] [address] Sep, [facility] [address] [id number] [address] [place] [address], [place] [address] Sep, [facility] [address] [id number] [address] [place] [address], [place] [address] Aug, [facility] [address] [id number] [address] [place] [address], [place] [address] Aug, [facility] [address] [id number] [address] [place] [address], [place] [address] Aug, [facility] [address] [id number] [address] [place] [address], [place] [address] Aug, [facility] [address] [id number] [address] [place] [address], [place] [address] Jul, [facility] [address] [id number] [address] [place] [address], [place] [address] Jul, [facility] [address] [id number] [address] [place] [address], [place] [address] Jul, [facility] [address] [id number] [address] [place] [address], [place] [address] Jul, [facility] [address] [id number] [address] [place] [address], [place] [address] Jul, [facility] [address] [id number] [address] [place] [address], [place] [address] Jul, [facility] [address] [id number] [address] [place] [address], [place] [address] Jul, [facility] [address] [id number] [address] [place] [address], [place] [address] Jul, [facility] [address] [id number] [address] [place] [address], [place] [address] Jun, [facility] [address] [id number] [address] [place] [address], [place] [address] Jun, [facility] [address] [id number] [address] [place] [address], [place] [address] 20 Jun, 2014 [facility] [address] [id number] [address] [place] [address], [place] [address] 20 Jun, 2014 [facility] [address] [id number] [address] [place] [address], [place] [address] 16 Jun, 2014 [facility] [address] [id number] [address] [place] [address], [place] [address] 15 Jun, 2014 [facility] [address] [id number] [address] [place] [address], [place] [address] 15 Jun, 2014 [facility] [address] [id number] [address] [place] [address], [place] [address] 14 Jun, 2014 [facility] [address] [id number] [address] [place] [address], [place] [address] 14 Jun, 2014 [facility] [address] [id number] [address] [place] [address], [place] [address] 11 Jun, 2014 [facility] [address] [id number] [address] [place] [address], [place] [address] 11 Jun, 2014 [facility] [address] [id number] [address] [place] [address], [place] [address] 24 May, 2014 [facility] [address] [id number] [address] [place] [address], [place] [address] 24 May, 2013 [facility] [address] [id number] [address] [place] [address], [place] [address] 08 May, 2014 [facility] [address] [id number] [address] [place] [address], [place] [address] 02 May, 2014 [facility] [address] [id number] [address] [place] [address], [place] [address] 02 May, 2014 [facility] [address] [id number] [address] [place] [address], [place] [address] 26 Apr, 2014 [facility] [address] [id number] [address] [place] [address], [place] [address] Apr, [facility] [address] [id number] [facility] [place] [address] Apr, [facility] [address] [id number] [address] [place] [address], [place] [address] Apr, [facility] [address] [id number] [address] [place] [address], [place] [address] Apr, [facility] [address] [id number] [address] [place] [address], [place] [address] Apr, [facility] [address] [id number] [address] [place] [address], [place] [address] Mar, [facility] [address] [id number] [address] [place] [address], [place] [address] Mar, [facility] [address] [id number] [address] [place] [address], [place] [address] Mar, [facility] [address] [id number] [address] [place] [address], [place] [address] Mar, [facility] [address] [id number] [address] [place] [address], [place] [address] Mar, [facility] [address] [id number] [address] [place] [address], [place] [address] Mar, [facility] [address] [id number] [address] [place] [address], [place] [address] Feb, [facility] [address] [id number] [address] [place] [address], [place] [address] Feb, [facility] [address] [id number] [address] [place] [address], [place] [address] Feb, [facility] [address] [id number] [address] [place] [address], [place] [address] Feb, [facility] [address] [id number] [address] [place] [address], [place] [address] Feb, [facility] [address] [id number] [address] [place] [address], [place] [address] Feb, [facility] [address] [id number] [address] [place] [address], [place] [address] Feb, [facility] [address] [id number] [address] [place] [address], [place] [address] Feb, [facility] [address] [id number] [address] [place] [address], [place] [address] January, [facility] [address] [id number] [address] [place] [address], [place] [address] January, [facility] [address] [id number] [address] [place] [address], [place] [address] January, [facility] [address] [id number] [address] [place] [address], [place] [address] January, [facility] [address] [id number] [address] [place] [address], [place] [address] January, [facility] [address] [id number] [address] [place] [address], [place] [address] January, [facility] [address] [id number] [address] [place] [address], [place] [address] January, [facility] [address] [id number] [address] [place] [address], [place] [address] January, [facility] [address] [id number] [address] [place] [address], [place] [address] Dec, [facility] [address] [id number] [address] [place] [address], [place] [address] Dec, [facility] [address] [id number] [address] [place] [address], [place] [address] Dec, [facility] [address] [id number] [address] [place] [address], [place] [address] Dec, [facility] [address] [id number] [address] [place] [address], [place] [address] Dec, [facility] [address] [id number] [facility] [place] [address] Dec, [facility] [address] [id number] [address] [place] [address], [place] [address] Nov, [facility] [address] [id number] [facility] [place] [address] Nov, [facility] [address] [id number] [address] [place] [address], [place] [address] Nov, [facility] [address] [id number] [address] [place] [address], [place] [address] Nov, [facility] [address] [id number] [address] [place] [address], [place] [address] Nov, [facility] [address] [id number] [address] [place] [address], [place] [address] Nov, [facility] [address] [id number] [address] [place] [address], [place] [address] Nov, [facility] [address] [id number] [address] [place] [address], [place] [address] Nov, [facility] [address] [id number] [address] [place] [address], [place] [address] Oct, [facility] [address] [id number] [address] [place] [address], [place] [address] Oct, [facility] [address] [id number] [address] [place] [address], [place] [address] Sep, [facility] [address] [id number] [address] [place] [address], [place] [address] Sep, [facility] [address] [id number] [address] [place] [address], [place] [address] Sep, [facility] [address] [id number] [address] [place] [address], [place] [address] Sep, [facility] [address] [id number] [address] [place] [address], [place] [address] Aug, [facility] [address] [id number] [address] [place] [address], [place] [address] Aug, [facility] [address] [id number] [address] [place] [address], [place] [address] Aug, [facility] [address] [id number] [address] [place] [address], [place] [address] Aug, [facility] [address] [id number] [address] [place] [address], [place] [address] Jul, [facility] [address] [id number] [address] [place] [address], [place] [address] Jul, [facility] [address] [id number] [address] [place] [address], [place] [address] Jul, [facility] [address] [id number] [address] [place] [address], [place] [address] Jul, [facility] [address] [id number] [address] [place] [address], [place] [address] Jul, [facility] [address] [id number] [address] [place], [place] [address], [place] [address] Jul, [facility] [address] [id number] [address] [place] [address], [place] [address] Jul, [facility] [address] [id number] [address] [place] [address], [place] [address] Jul, [facility] [address] [id number] [address] [place] [address], [place] [address] Jul, [facility] [address] [id number] [address] [place] [address], [place] [address] Jul, [facility] [address] [id number] [address] [place] [address], [place] [address] Jul, [facility] [place] [facility] [address] [id number] [address] [place] [address], [place] [address] Jul, [facility] [address] [id number] [address] [place] [address], [place] [address] Jun, [facility] [address] [id number] [address] [place] [address], [place] [address] Jun, [facility] [address] [id number] [address] [place] [address], [place] [address] Jun, [facility] [address] [id number] [address] [place] [address], [place] [address] Jun, [facility] [address] [id number] [address] [place] [address], [place] [address] Jun, [facility] [address] [id number] [address] [place] [address], [place] [address] Jun, [facility] [address] [id number] [address] [place] [address], [place] [address] Jun, [facility] [address] [id number] [address] [place] [address], [place] [address] Jun, [facility] [address] [id number] [address] [place] [address], [place] [address] 15 May, 2013 [facility] [address] [id number] [address] [place] [id number] 05 May, 2013 [facility] [address] [id number] [address] [place] [address] May, [facility] [address] [id number] [address] [place] [address] Apr, [facility] [address] [id number] [address] [place] [address], [place] [address] Apr, [facility] [address] [id number] [address] [place] [address] Mar, [facility] [address] [id number] [address] [place] [address] Mar, [facility] [address] [id number] [address] [place] [address] Feb, [facility] [place] [address] [id number] [address] [place] [address], [place] [address] January, [facility] [address] [id number] [address] [place] [address], [place] [address] January, [facility] [place] [facility] [address] [id number] [address] [place] [address], [place] [address] January, [facility] [address] [id number] [address] [place] [address], [place] [address] January, [facility] [place] [facility] [address] [id number] [address] [place] [address], [place] [address] January, [facility] [place] [facility] [address] [id number] [address] [place] [address], [place] [address] Dec, [facility] [address] [id number] [address] [place] [address], [place] [address] Dec, [facility] [address] [id number] [address] [place] [address], [place] [address] Dec, [facility] [address] [id number] [address] [place] [address], [place] [address] Nov, [facility] [address] [id number] [address] [place] [address], [place] [address] Oct, [facility] [address] [id number] [address] [place] [address], [place] [address] 18 Oct, 2012 [facility] [address] [id number] [address] [place] [address], [place] [address] 15 Oct, 2012 [facility] [address] [id number] [address] [place] [address], [place] [address] Sep, [facility] [address] [id number] [address] [place] [address], [place] [address] 16 Sep, 2012 [facility] [place] [facility] [address] [id number] [address] [place] [address] Aug, [facility] [address] [id number] [address] [place] [address], [place] [address] 14 Aug, 2012 [facility] [address] [id number] [address] [place] [address], [place] [address] Aug, [facility] [address] [id number] [address] [place] [address], [place] [address] Aug, [facility] [address] [id number] [address] [place] [address], [place] [address] Jul, [facility] [address] [id number] [address] [place] [address], [place] [address] Jul, [facility] [address] [id number] [address] [place] [address], [place] [address] Jul, [facility] [address] [id number] [address] [place] [address], [place] [address] Jul, [facility] [address] [id number] [address] [place] [address], [place] [address] Jul, [facility] [address] [id number] [address] [place] [address], [place] [address] 15 Jun, 2012 [facility] [address] [id number] [address] [place] [address], [place] [address] 15 Jun, 2012 [facility] [address] [id number] [address] [place] [address], [place] [address] 10 Jun, 2012 [facility] [address] [id number] [address] [place] [address], [place] [address] 10 Jun, 2012 [facility] [address] [id number] [address] [place] [address], [place] [address] 10 May, 2012 [facility] [address] [id number] [address] [place] [address], [place] [address] Apr, [facility] [address] [id number] [address] [place] [address], [place] [address] 13 Apr, 2012 [facility] [address] [id number] [address] [place] [address], [place] [address] Apr, [facility] [address] [id number] [address] [place] [address], [place] [address] Apr, [facility] [address] [id number] [address] [place] [address], [place] [address] January, [facility] [address] [id number] [address] [place] [address], [place] [address] January, [facility] [address] [id number] [address] [place] [address], [place] [address] Dec, [facility] [address] [id number] [address] [place] [address], [place] [address] Dec, [facility] [address] [id number] [address] [place] [address], [place] [address] Nov, [facility] [address] [id number] [address] [place] [address], [place] [address] Nov, [facility] [address] [id number] [address] [place] [address], [place] [address] Nov, [facility] [address] [id number] [address] [place] [address], [place] [address] Nov, [facility] [address] [id number] [address] [place] [address], [place] [address] Oct, [facility] [address] [id number] [address] [place] [address], [place] [address] Oct, [facility] [address] [id number] [address] [place] [address], [place] [address] Oct, [facility] [address] [id number] [address] [place] [address], [place] [address] Sep, [facility] [address] [id number] [address] [place] [address], [place] [address] Sep, [facility] [address] [id number] [address] [place] [address], [place] [address] Aug, [facility] [address] [id number] [address] [place] [address], [place] [address] Aug, [facility] [address] [id number] [address] [place] [address], [place] [address] Jul, [facility] [address] [id number] [address] [place] [address], [place] [address] Jul, [facility] [address] [id number] [address] [place] [address], [place] [address] Jul, [facility] [address] [id number] [address] [place] [address], [place] [address] Jun, [facility] [address] [id number] [address] [place] [address], [place] [address] 24 Jun, 2011 [facility] [address] [id number] [address] [place] [address], [place] [address] Jun, [facility] [address] [id number] [address] [place] [address], [place] [address] Jun, [facility] [address] [id number] [address] [place] [address], [place] [address] Jun, [facility] [address] [id number] [address] [place] [address], [place] [address] Jun, [facility] [address] [id number] [address] [place] [address], [place] [address] Aug, [facility] [address] [id number] [address] [place] [address], [place] [address] Aug, [facility] [address] [id number] [address] [place] [address], [place] [address] Aug, [facility] [address] [id number] [address] [place] [address], [place] [address] Jul, [facility] [address] [id number] [address] [place] [address], [place] [address] Jul, [facility] [address] [id number] [address] [place] [address], [place] [address] Jul, [facility] [address] [id number] [address] [place] [address] Jul, [facility] [address] [id number] [address] [place] [address] Jul, [facility] [address] [id number] [address] [place] [address] Jul, [facility] [address] [id number] [address] [place] [address] Jun, [facility] [address] [id number] [address] [place] [address] Apr, [facility] [address] [id number] [address] [place] [address] Feb, [facility] [address] [id number] [address] [place] [address] Oct, [facility] [address] [id number] [address] [place] [address] Sep, [facility] [address] [id number] [address] [place] [address] Aug, [facility] [address] [id number] [address] [place] [address] Aug, [facility] [address] [id number] [address] [place] [address] Aug, [facility] [address] [id number] [address] [place] [address] Jul, [facility] [address] [id number] [address] [place] [address] Jun, IMMUNIZATIONS No Known Immunizations SOCIAL HISTORY Never Assessed REASON FOR VISIT [facility] [place] PLAN OF CARE VITAL SIGNS [...]
--- OUTSIDE RECORDS SUMMARY | 2020-02-22 17:25 | XMS REPORT ---
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 Name Role Phone Migration, Doctor Unavailable Unavailable PROBLEMS Type Condition ICD9-CM Code [id number] Code Onset Dates Condition S tatus SNOMED Code Problem Migraine without aura and without status migrain osus, not intractable G43.009 Active 353847344 Problem Acquired hypothyroidism E03.9 Active 105901657 Problem Cervical disc disease M50.90 Active 224675729 Problem Dyspepsia R10.13 Active 461212692 ALLERGIES No Information ENCOUNTERS Encounter Location Date Diagnosis [place] [address] [place] [id number] [address] [place] [address] Dec, Cervical disc disease M50.90 [place] [address] [place] [id number] [address] [place] [address] Dec, Cervical disc disease M50.90 [place] [address] [facility] [id number] [address] [place] [address] Dec, Cervical disc disease M50.90 [place] [address] [place] [id number] [address] [place] [address] Dec, Cervical disc disease M50.90 ; Acquired hypothyroidism E03.9 and Migraine without aura and without status migrainosus, not intractable G43.009 [facility] [place] [address] [facility] [id number] [address] [place] [address] Nov, [place] [address] [place] [id number] [address] [place] [address] Nov, Cervical disc disease M50.90 [place] [address] [facility] [id number] [address] [place] [address] Oct, Cervical disc disease M50.90 [place] [address] [facility] [id number] [address] [place] [address] Sep, [facility] [place] [address] [id number] [address] [place] [address] Sep, Cervical disc disease M50.90 [facility] [place] [address] [id number] [address] [place] [address] Aug, Cervical disc disease M50.90 [facility] [place] [address] [id number] [address] [place] [address] Jul, Cervical disc disease M50.90 [facility] [place] [address] [id number] [address] [place] [address] Jun, Acute recurrent pansinusitis J01.41 and Cervical disc disease M50.90 [facility] [place] [address] [id number] [address] [place] [address] Jun, Cervical disc disease M50.90 [facility] [place] [address] [id number] [address] [place] [id number] May, Cervical disc disease M50.90 [facility] [place] [address] [id number] [address] [place] [address] Apr, Cervical disc disease M50.90 [facility] [place] [address] [id number] [address] [place] [address] Mar, Cervical disc disease M50.90 [facility] [place] [address] [id number] [address] [place] [phone] Mar, [facility] [place] [address] [id number] [address] [place] [address] Mar, Cervical disc disease M50.90 [facility] [place] [address] [id number] [address] [place] [address] Feb, Cervical disc disease M50.90 [facility] [place] [address] [id number] [address] [place] [address] January, Cervical disc disease M50.90 [facility] [place] [address] [id number] [address] [place] [address] Dec, [facility] [place] [address] [facility] [id number] [address] [place] [address] Dec, Cervical disc disease M50.90 [facility] [place] [address] [place] [id number] [address] [place] [address] Nov, Cervical disc disease M50.90 [facility] [place] [address] [address] Nov, Cervical disc disease M50.90 [facility] [place] [address] [place] [id number] [place] [phone] 15 Oct, 2017 Cervical disc disease M50.90 [facility] [place] [address] [place] [id number] [place] [address] 12 Oct, 2017 Cervical disc disease M50.90 and Acute non-recurrent maxillary sinusitis J01.00 [place] [address] [address] Sep, Cervical disc disease M50.90 [facility] [address] [address] Sep, [facility] [address] [address] Sep, Fatigue, unspecified type R5 3.83 and Cough R05 [facility] [place] [address] [address] Aug, Cervical disc disease M50.90 [facility] [address] [place] [id number] [address] [place] [phone] 16 Aug, 2017 Sore throat J02.9 ; Canker s ore K12.0 and History of anemia Z86.2 [facility] [place] [address] [place] [id number] [address] [place] [address] Jul, Cervical disc disease M50.90 [facility] [place] [address] [address] Jun, Cervical disc disease M50.90 [facility] [place] [address] [id number] [address] [place] [address] Jun, Cervical disc disease M50.90 [facility] [place] [address] [id number] [address] [place] [address] May, Cervical disc disease M50.90 [facility] [place] [address] [id number] [address] [place] [phone] Apr, Cervical disc disease M50.90 [facility] [place] [address] [id number] [address] [place] [id number] Apr, [facility] [place] [address] [id number] [address] [place] [address] Feb, Cervical disc disease M50.90 [facility] [place] [address] [id number] [address] [place] [address] January, Cervical disc disease M50.90 [facility] [place] [address] [id number] [address] [place] [phone] Nov, [facility] [place] [address] [id number] [address] [place] [address] Nov, Cervical disc disease M50.90 [facility] [address] [id number] [address] [place] [address] Nov, Acute cystitis with hematuri a N30.01 and Dysuria R30.0 [facility] [place] [address] [id number] [address] [place] [phone] Oct, Cervical disc disease M50.90 and Acute non-recurrent frontal sinusitis J01.10 [facility] [place] [address] [id number] [address] [place] [phone] Sep, Neck pain M54.2 [facility] [place] [address] [facility] [id number] [address] [place] [phone] Sep, [facility] [place] [address] [id number] [address] [place] [address] Aug, Cervical disc disease M50.90 [facility] [place] [address] [facility] [id number] [address] [place] [address] Jul, [facility] [place] [address] [facility] [id number] [address] [place] [address] Jun, [facility] [place] [address] [facility] [id number] [address] [place] [address] May, [facility] [place] [address] [facility] [id number] [address] [place] [address] May, Screening for diabetes emilio tunakia Z13.1 ; Chronic fatigue R53.82 and Edema, unspecified type R60.9 [facility] [place] [address] [facility] [id number] [address] [place] [address] Apr, Neck pain M54.2 [facility] [place] [address] [facility] [id number] [address] [place] [address] Mar, [facility] [place] [address] [facility] [id number] [address] [place] [phone] Mar, Neck pain M54.2 [facility] [place] [address] [facility] [id number] [address] [place] [address] Feb, Cervical disc disease M50.90 [facility] [place] [address] [facility] [id number] [address] [place] [address] Feb, Cervical disc disease M50.90 [facility] [place] [address] [facility] [id number] [address] [place] [phone] January, [facility] [place] [address] [facility] [id number] [address] [place] [id number] January, [facility] [place] [address] [facility] [id number] [address] [place] [address] January, Cervical disc disease M50.90 [facility] [place] [address] [facility] [id number] [address] [place] [phone] January, [facility] [place] [address] [id number] [address] [place] [phone] January, [facility] [place] [address] [id number] [address] [place] [phone] Dec, Cervical disc disease M50.90 [facility] [place] [address] [id number] [address] [place] [address] Nov, Cervical disc disease M50.90 [facility] [place] [address] [id number] [address] [place] [address] Oct, Cervical disc disease M50.90 [facility] [place] [address] [id number] [address] [place] [phone] Sep, Cervical disc disease M50.90 [facility] [address] [id number] [address] [place] [id number] Aug, Dental caries K02.9 and Enco unter for dental examination Z01.20 [facility] [place] [address] [id number] [address] [place] [phone] Aug, [facility] [place] [address] [id number] [address] [place] [phone] Aug, [facility] [address] [id number] [address] [place] [id number] Aug, Encounter for dental examina tion Z01.20 [facility] [place] [address] [id number] [address] [place] [phone] Jul, [facility] [place] [address] [id number] [address] [place] [phone] Jun, Sinusitis J32.9 and Cervical disc disease M50.90 [facility] [place] [address] [id number] [address] [place] [phone] Jun, [facility] [place] [address] [id number] [address] [place] [id number] 24 May, 2015 [facility] [place] [address] [id number] [address] [place] [phone] May, [facility] [address] [id number] [address] [place] [phone] May, [facility] [address] [id number] [address] [place] [phone] May, [facility] [address] [id number] [address] [place] [id number] Apr, Cervical spondylosis without myelopathy 721.0 [facility] [address] [id number] [address] [place] [phone] Mar, [facility] [address] [id number] [address] [place] [phone] January, Cervical spondylosis without myelopathy 721.0 [facility] [address] [id number] [address] [place] [phone] Dec, [facility] [address] [id number] [address] [place] [phone] Dec, [facility] [address] [id number] [address] [place] [phone] Dec, [facility] [address] [id number] [address] [place] [phone] Nov, [facility] [address] [id number] [address] [place] [phone] Nov, [facility] [address] [id number] [address] [place] [phone] Oct, [facility] [address] [id number] [address] [place] [phone] Oct, [facility] [address] [id number] [address] [place] [phone] Oct, [facility] [address] [id number] [address] [place] [id number] Oct, [facility] [address] [id number] [address] [place] [address], [place] [address] Oct, 2014 [facility] [address] [id number] [address] [place] [address], [place] [address] Oct, 2014 [facility] [address] [id number] [address] [place] [address], [place] [address] Oct, 2014 [facility] [address] [id number] [address] [place] [address], [place] [address] Oct, 2014 [facility] [address] [id number] [address] [place] [address], [place] [address] Oct, 2014 [facility] [address] [id number] [address] [place] [address], [place] [address] Oct, [facility] [address] [id number] [address] [place] [address], [place] [address] Sep, [facility] [address] [id number] [address] [place] [address], [place] [address] Sep, [facility] [address] [id number] [address] [place] [address], [place] [address] Sep, [facility] [address] [id number] [address] [place] [address], [place] [address] Sep, [facility] [address] [id number] [address] [place] [address], [place] [address] Sep, [facility] [address] [id number] [address] [place] [address], [place] [address] Sep, [facility] [address] [id number] [address] [place] [address], [place] [address] Sep, [facility] [address] [id number] [address] [place] [address], [place] [address] Sep, [facility] [address] [id number] [address] [place] [address], [place] [address] Sep, [facility] [address] [id number] [address] [place] [address], [place] [address] Aug, [facility] [address] [id number] [address] [place] [address], [place] [address] Aug, [facility] [address] [id number] [address] [place] [address], [place] [address] Aug, [facility] [address] [id number] [address] [place] [address], [place] [address] Aug, [facility] [address] [id number] [address] [place] [address], [place] [address] Jul, [facility] [address] [id number] [address] [place] [address], [place] [address] Jul, [facility] [address] [id number] [address] [place] [address], [place] [address] Jul, [facility] [address] [id number] [address] [place] [address], [place] [address] Jul, [facility] [address] [id number] [address] [place] [address], [place] [address] Jul, [facility] [address] [id number] [address] [place] [address], [place] [address] Jul, [facility] [address] [id number] [address] [place] [address], [place] [address] Jul, [facility] [address] [id number] [address] [place] [address], [place] [address] Jul, [facility] [address] [id number] [address] [place] [address], [place] [address] Jun, [facility] [address] [id number] [address] [place] [address], [place] [address] Jun, [facility] [address] [id number] [address] [place] [address], [place] [address] Jun, [facility] [address] [id number] [address] [place] [address], [place] [address] Jun, [facility] [address] [id number] [address] [place] [address], [place] [address] 16 Jun, 2014 [facility] [address] [id number] [address] [place] [address], [place] [address] 15 Jun, 2014 [facility] [address] [id number] [address] [place] [address], [place] [address] 15 Jun, 2014 [facility] [address] [id number] [address] [place] [address], [place] [address] 14 Jun, 2014 [facility] [address] [id number] [address] [place] [address], [place] [address] 14 Jun, 2014 [facility] [address] [id number] [address] [place] [address], [place] [address] 11 Jun, 2014 [facility] [address] [id number] [address] [place] [address], [place] [address] Jun, [facility] [address] [id number] [address] [place] [address], [place] [address] 24 May, 2014 [facility] [address] [id number] [address] [place] [address], [place] [address] 24 May, 2014 [facility] [address] [id number] [address] [place] [address], [place] [address] 08 May, 2014 [facility] [address] [id number] [address] [place] [address], [place] [address] 02 May, 2014 [facility] [address] [id number] [address] [place] [address], [place] [address] May, [facility] [address] [id number] [address] [place] [address], [place] [address] Apr, [facility] [address] [id number] [address] [place] [address], [place] [address] Apr, [facility] [address] [id number] [address] [place] [address], [place] [address] Apr, [facility] [address] [id number] [address] [place] [address], [place] [address] Apr, [facility] [address] [id number] [address] [place] [address], [place] [address] Apr, [facility] [address] [id number] [address] [place] [address], [place] [address] Apr, [facility] [address] [id number] [address] [place] [address], [place] [address] Mar, [facility] [address] [id number] [address] [place] [address], [place] [address] Mar, [facility] [address] [id number] [address] [place] [address], [place] [address] Mar, [facility] [address] [id number] [address] [place] [address], [place] [address] Mar, [facility] [address] [id number] [address] [place] [address], [place] [address] Mar, [facility] [address] [id number] [address] [place] [address], [place] [address] Mar, [facility] [address] [id number] [address] [place] [address], [place] [address] Feb, [facility] [address] [id number] [address] [place] [address], [place] [address] Feb, [facility] [address] [id number] [address] [place] [address], [place] [address] Feb, [facility] [address] [id number] [address] [place] [address], [place] [address] Feb, [facility] [address] [id number] [address] [place] [address], [place] [address] Feb, [facility] [address] [id number] [address] [place] [address], [place] [address] Feb, [facility] [address] [id number] [address] [place] [address], [place] [address] Feb, [facility] [address] [id number] [address] [place] [address], [place] [address] Feb, [facility] [address] [id number] [address] [place] [address], [place] [address] January, [facility] [address] [id number] [address] [place] [address], [place] [address] January, [facility] [address] [id number] [address] [place] [address], [place] [address] January, [facility] [address] [id number] [address] [place] [address], [place] [address] January, [facility] [address] [id number] [address] [place] [address], [place] [address] January, [facility] [address] [id number] [address] [place] [address], [place] [address] January, [facility] [address] [id number] [address] [place] [address], [place] [address] January, [facility] [address] [id number] [address] [place] [address], [place] [address] January, [facility] [address] [id number] [address] [place] [address], [place] [address] Dec, [facility] [address] [id number] [address] [place] [address], [place] [address] Dec, [facility] [address] [id number] [address] [place] [address], [place] [address] Dec, [facility] [address] [id number] [address] [place] [address], [place] [address] Dec, [facility] [address] [id number] [address] [place] [address], [place] [address] Dec, [facility] [address] [id number] [address] [place] [address], [place] [address] Dec, [facility] [address] [address] [id number] [address] [place] [address], [place] [address] Nov, [facility] [address] [id number] [facility] [place] [address] Nov, [facility] [address] [id number] [facility] [place] [place] [address] Nov, [facility] [address] [id number] [facility] [place] [address] Nov, [facility] [address] [id number] [address] [place] [address], [place] [address] Nov, [facility] [address] [id number] [address] [place] [address], [place] [address] Nov, [facility] [address] [id number] [address] [place] [address], [place] [address] Nov, [facility] [address] [id number] [address] [place] [address], [place] [address] Nov, [facility] [address] [id number] [address] [place] [address], [place] [address] Oct, [facility] [address] [id number] [address] [place] [address], [place] [address] Oct, [facility] [address] [id number] [address] [place] [address], [place] [address] Sep, [facility] [address] [id number] [address] [place] [address], [place] [address] Sep, [facility] [address] [id number] [address] [place] [address], [place] [address] Sep, [facility] [address] [id number] [address] [place] [address], [place] [address] Sep, [facility] [address] [id number] [address] [place] [address], [place] [address] Aug, [facility] [address] [id number] [address] [place] [address], [place] [address] Aug, [facility] [address] [id number] [address] [place] [address], [place] [address] Aug, [facility] [address] [id number] [address] [place] [address], [place] [address] Aug, [facility] [address] [id number] [address] [place] [address], [place] [address] Jul, [facility] [address] [id number] [address] [place] [address], [place] [address] Jul, [facility] [address] [id number] [address] [place] [address] Jul, [facility] [address] [id number] [address] [place] [address], [place] [address] Jul, [facility] [address] [id number] [address] [place] [address] Jul, [facility] [address] [id number] [address] [place] [address], [place] [address] Jul, [facility] [address] [id number] [address] [place] [address] Jul, [facility] [address] [id number] [address] [place] [address], [place] [address] Jul, [facility] [address] [id number] [address] [place] [address] Jul, [facility] [address] [id number] [address] [place] [address] Jul, [facility] [address] [id number] [address] [place] [address] Jul, [facility] [address] [id number] [address] [place] [address], [place] [address] Jul, [facility] [address] [id number] [address] [place] [address] Jun, [facility] [address] [id number] [address] [place] [address] Jun, [facility] [address] [id number] [address] [place] [address], [place] [address] Jun, [facility] [address] [id number] [address] [place] [address], [place] [address] 21 Jun, 2013 [facility] [address] [id number] [address] [place] [address], [place] [address] 16 Jun, 2013 [facility] [address] [id number] [address] [place] [address], [place] [address] 14 Jun, 2013 [facility] [address] [id number] [address] [place] [address], [place] [address] 14 Jun, 2013 [facility] [address] [id number] [address] [place] [address], [place] [address] 02 Jun, 2013 [facility] [address] [id number] [address] [place] [address], [place] [address] 15 May, 2013 [facility] [address] [id number] [address] [place] [address], [place] [address] 05 May, 2013 [facility] [address] [id number] [address] [place] [address], [place] [address] 04 May, 2013 [facility] [address] [id number] [address] [place] [address], [place] [address] Apr, [facility] [address] [id number] [address] [place] [address], [place] [address] Apr, [facility] [address] [id number] [address] [place] [address], [place] [address] Mar, [facility] [address] [id number] [address] [place] [address], [place] [address] Mar, [facility] [address] [id number] [address] [place] [address], [place] [address] Feb, [facility] [address] [id number] [address] [place] [address], [place] [address] January, [facility] [address] [id number] [address] [place] [address], [place] [address] January, [facility] [address] [id number] [address] [place] [address], [place] [address] 14 Jan, 2013 [facility] [address] [id number] [address] [place] [address], [place] [address] January, [facility] [address] [id number] [address] [place] [address], [place] [address] January, [facility] [address] [id number] [address] [place] [address], [place] [address] 29 Dec, 2012 [facility] [address] [id number] [address] [place] [address], [place] [address] Dec, [facility] [address] [id number] [address] [place] [address], [place] [address] Dec, [facility] [address] [id number] [address] [place] [address], [place] [address] Nov, [facility] [address] [id number] [address] [place] [address], [place] [address] Oct, [facility] [address] [id number] [address] [place] [address], [place] [address] 18 Oct, 2012 [facility] [address] [id number] [address] [place] [address], [place] [address] 15 Oct, 2012 [facility] [address] [id number] [address] [place] [address], [place] [address] Sep, [facility] [address] [id number] [address] [place] [address], [place] [address] 16 Sep, 2012 [facility] [address] [id number] [address] [place] [address], [place] [address] 14 Aug, 2012 [facility] [address] [id number] [address] [place] [address], [place] [address] 14 Aug, 2012 [facility] [address] [id number] [address] [place] [address], [place] [address] 11 Aug, 2012 [facility] [address] [id number] [address] [place] [address], [place] [address] Aug, [facility] [address] [id number] [address] [place] [address], [place] [address] Jul, [facility] [address] [id number] [address] [place] [address], [place] [address] Jul, [facility] [address] [id number] [address] [place] [address], [place] [address] Jul, [facility] [address] [id number] [address] [place] [address], [place] [address] Jul, [facility] [address] [id number] [address] [place] [address], [place] [address] Jul, [facility] [address] [id number] [address] [place] [address], [place] [address] Jun, [facility] [address] [id number] [address] [place] [address], [place] [address] Jun, [facility] [address] [id number] [address] [place] [address], [place] [address] Jun, [facility] [address] [id number] [address] [place] [address], [place] [address] Jun, [facility] [address] [id number] [address] [place] [address], [place] [address] May, [facility] [address] [id number] [address] [place] [address], [place] [address] Apr, [facility] [address] [id number] [address] [place] [address], [place] [address] Apr, [facility] [address] [id number] [address] [place] [address], [place] [address] Apr, [facility] [address] [id number] [address] [place] [address], [place] [address] Apr, [facility] [address] [id number] [address] [place] [address], [place] [address] January, [facility] [address] [id number] [address] [place] [address], [place] [address] January, [facility] [address] [id number] [address] [place] [address], [place] [address] Dec, [facility] [address] [id number] [address] [place] [address], [place] [address] Dec, [facility] [address] [id number] [address] [place] [address], [place] [address] Nov, [facility] [address] [id number] [address] [place] [address], [place] [address] Nov, [facility] [address] [id number] [address] [place] [address], [place] [address] Nov, [facility] [address] [id number] [address] [place] [address], [place] [address] Nov, [facility] [address] [id number] [address] [place] [address], [place] [address] Oct, [facility] [address] [id number] [address] [place] [address], [place] [address] Oct, [facility] [address] [id number] [address] [place] [address], [place] [address] Oct, [facility] [address] [id number] [address] [place] [address], [place] [address] Sep, [facility] [address] [id number] [address] [place] [address], [place] [address] Sep, [facility] [address] [id number] [address] [place] [address], [place] [address] Aug, [facility] [address] [id number] [address] [place] [address], [place] [address] Aug, [facility] [address] [id number] [address] [place] [address], [place] [address] Jul, [facility] [address] [id number] [address] [place] [address], [place] [address] Jul, [facility] [address] [id number] [address] [place] [address], [place] [address] Jul, [facility] [address] [id number] [address] [place] [address], [place] [address] Jun, [facility] [address] [id number] [address] [place] [address], [place] [address] Jun, [facility] [address] [id number] [address] [place] [address], [place] [address] Jun, [facility] [address] [id number] [address] [place] [address], [place] [address] Jun, [facility] [address] [id number] [address] [place] [address], [place] [address] Jun, [facility] [address] [id number] [address] [place] [address], [place] [address] Jun, [facility] [address] [id number] [address] [place] [address], [place] [address] Aug, [facility] [address] [id number] [address] [place] [address], [place] [address] Aug, [facility] [address] [id number] [address] [place] [address], [place] [address] Aug, [facility] [address] [id number] [address] [place] [address], [place] [address] Jul, [facility] [address] [id number] [address] [place] [address], [place] [address] Jul, [facility] [address] [id number] [address] [place] [address], [place] [address] Jul, [facility] [address] [id number] [address] [place] [address], [place] [address] 15 Jul, 2010 [facility] [address] [id number] [address] [place] [address], [place] [address] 15 Jul, 2010 [facility] [address] [id number] [address] [place] [address] 08 Jul, 2010 [facility] [address] [id number] [address] [place] [address] Jun, [facility] [place] [address] [id number] [address] [place] [address] Apr, [facility] [place] [address] [id number] [address] [place] [address] Feb, [facility] [place] [address] [id number] [address] [place] [address] Oct, [facility] [place] [address] [id number] [address] [place] [address] Sep, [facility] [place] [address] [id number] [address] [place] [address] Aug, [facility] [place] [address] [id number] [address] [place] [address] Aug, [facility] [place] [address] [id number] [address] [place] [address] Aug, [facility] [place] [address] [id number] [address] [place] [address] Jul, [facility] [place] [address] [id number] [address] [place] [address] Jun, IMMUNIZATIONS No Known Immunizations SOCIAL HISTORY Never Assessed REAS[facility] FOR [place]IT [facility] [place] VITAL SIGNS MEDICATIONS Unknown [...]
--- OUTSIDE RECORDS SUMMARY | 2020-02-22 17:26 | XMS REPORT ---
Author Author Marion Alexander Doctor Organization [facility] Address Unknown Phone Unavailable Care Team Providers Care Swiss Machinist Name Role Phone Migration, Doctor Unavailable Unavailable PROBLEMS Type Condition ICD9-CM Code GGB25-UA Code Onset Dates Condition S tatus SNOMED Code Problem Migraine without aura and without status migrain osus, not intractable G43.009 Active 341427231 Problem Acquired hypothyroidism E03.9 Active 538817330 Problem Cervical disc disease M50.90 Active 832090170 Problem Dyspepsia R10.13 Active [id number] ALLERGIES No Information ENCOUNTERS Encounter Location Date Diagnosis [place] [address] [place] [id number] [address] [place] [address] Dec, Cervical disc disease M50.90 [place] [address] [facility] [id number] [address] [place] [address] Dec, Cervical disc disease M50.90 [place] [address] [facility] [id number] [address] [place] [address] Dec, Cervical disc disease M50.90 [place] [address] [facility] [id number] [address] [place] [address] Dec, Cervical disc disease M50.90 ; Acquired hypothyroidism E03.9 and Migraine without aura and without status migrainosus, not intractable G43.009 [facility] [place] [address] [facility] [id number] [address] [place] [address] Nov, [place] [address] [facility] [id number] [address] [place] [address] Nov, Cervical disc disease M50.90 [place] [address] [facility] [id number] [address] [place] [address] Oct, Cervical disc disease M50.90 [place] [address] [facility] [id number] [address] [place] [address] Sep, [facility] [place] [address] [id number] [address] [place] [address] Sep, Cervical disc disease M50.90 [facility] [place] [address] [id number] [address] [place] [address] Aug, Cervical disc disease M50.90 [facility] [place] [address] [id number] [address] [place] [address] Jul, Cervical disc disease M50.90 [facility] [place] [address] [id number] [address] [place] [address] Jun, Acute recurrent pansinusitis J01.41 and Cervical disc disease M50.90 [facility] [place] [address] [id number] [address] [place] [address] Jun, Cervical disc disease M50.90 [facility] [place] [address] [id number] [address] [place] [address] May, Cervical disc disease M50.90 [facility] [place] [address] [id number] [address] [place] [address] Apr, Cervical disc disease M50.90 [facility] [place] [address] [id number] [address] [place] [address] Mar, Cervical disc disease M50.90 [facility] [place] [address] [id number] [address] [place] [address] Mar, [facility] [place] [address] [id number] [address] [place] [address] Mar, Cervical disc disease M50.90 [facility] [place] [address] [id number] [address] [place] [address] Feb, Cervical disc disease M50.90 [facility] [place] [address] [id number] [address] [place] [address] January, Cervical disc disease M50.90 [facility] [place] [address] [id number] [address] [place] [address] Dec, [facility] [place] [address] [facility] [id number] [address] [place] [address] Dec, Cervical disc disease M50.90 [facility] [place] [address] [place] [id number] [address] [place] [address] Nov, Cervical disc disease M50.90 [facility] [place] [address] [address] Nov, Cervical disc disease M50.90 [facility] [place] [address] [place] [id number] [place] [address] 15 Oct, 2017 Cervical disc disease M50.90 [facility] [place] [address] [place] [id number] [place] [address] 12 Oct, 2017 Cervical disc disease M50.90 and Acute non-recurrent maxillary sinusitis J01.00 [place] [address] [address] Sep, Cervical disc disease M50.90 [facility] [address] [address] Sep, [facility] [address] [address] Sep, Fatigue, unspecified type R5 3.83 and Cough R05 [facility] [place] [address] [address] Aug, Cervical disc disease M50.90 [facility] [address] [place] [id number] [address] [place] [address] 16 Aug, 2017 Sore throat J02.9 ; Canker s ore K12.0 and History of anemia Z86.2 [facility] [place] [address] [place] [id number] [address] [place] [address] Jul, Cervical disc disease M50.90 [facility] [place] [address] [address] Jun, Cervical disc disease M50.90 [facility] [place] [address] [id number] [address] [place] [address] Jun, Cervical disc disease M50.90 [facility] [place] [address] [id number] [address] [place] [address] May, Cervical disc disease M50.90 [facility] [place] [address] [id number] [address] [place] [address] Apr, Cervical disc disease M50.90 [facility] [place] [address] [id number] [address] [place] [address] Apr, [facility] [place] [address] [id number] [address] [place] [address] Feb, Cervical disc disease M50.90 [facility] [place] [address] [id number] [address] [place] [address] January, Cervical disc disease M50.90 [facility] [place] [address] [id number] [address] [place] [address] Nov, [facility] [place] [address] [id number] [address] [place] [address] Nov, Cervical disc disease M50.90 [facility] [address] [id number] [address] [place] [address] Nov, Acute cystitis with hematuri a N30.01 and Dysuria R30.0 [facility] [place] [address] [id number] [address] [place] [address] Oct, Cervical disc disease M50.90 and Acute non-recurrent frontal sinusitis J01.10 [facility] [place] [address] [id number] [address] [place] [address] Sep, Neck pain M54.2 [facility] [place] [address] [facility] [id number] [address] [place] [address] Sep, [facility] [place] [address] [id number] [address] [place] [address] Aug, Cervical disc disease M50.90 [facility] [place] [address] [facility] [id number] [address] [place] [address] Jul, [facility] [place] [address] [facility] [id number] [address] [place] [address] Jun, [facility] [place] [address] [facility] [id number] [address] [place] [address] May, [facility] [place] [address] [facility] [id number] [address] [place] [address] May, Screening for diabetes emilio tunakia Z13.1 ; Chronic fatigue R53.82 and Edema, unspecified type R60.9 [facility] [place] [address] [facility] [id number] [address] [place] [address] Apr, Neck pain M54.2 [facility] [place] [address] [facility] [id number] [address] [place] [address] Mar, [facility] [place] [address] [facility] [id number] [address] [place] [address] Mar, Neck pain M54.2 [facility] [place] [address] [facility] [id number] [address] [place] [address] Feb, Cervical disc disease M50.90 [facility] [place] [address] [facility] [id number] [address] [place] [address] Feb, Cervical disc disease M50.90 [facility] [place] [address] [facility] [id number] [address] [place] [address] January, [facility] [place] [address] [facility] [id number] [address] [place] [address] January, [facility] [place] [address] [facility] [id number] [address] [place] [address] January, Cervical disc disease M50.90 [facility] [place] [address] [facility] [id number] [address] [place] [address] January, [facility] [place] [address] [id number] [address] [place] [address] January, [facility] [place] [address] [id number] [address] [place] [address] Dec, Cervical disc disease M50.90 [facility] [place] [address] [id number] [address] [place] [address] Nov, Cervical disc disease M50.90 [facility] [place] [address] [id number] [address] [place] [address] Oct, Cervical disc disease M50.90 [facility] [place] [address] [id number] [address] [place] [address] Sep, Cervical disc disease M50.90 [facility] [address] [id number] [address] [place] [address] [id number] Aug, Dental caries K02.9 and Enco unter for dental examination Z01.20 [facility] [place] [address] [id number] [address] [place] [address] Aug, [facility] [place] [address] [id number] [address] [place] [address] Aug, [facility] [address] [id number] [address] [place] [address] [id number] Aug, Encounter for dental examina tion Z01.20 [facility] [place] [address] [id number] [address] [place] [address] Jul, [facility] [place] [address] [id number] [address] [place] [address] Jun, Sinusitis J32.9 and Cervical disc disease M50.90 [facility] [place] [address] [id number] [address] [place] [address] Jun, [facility] [place] [address] [id number] [address] [place] [phone] 24 May, 2015 [facility] [place] [address] [id number] [address] [place] [address] May, [facility] [address] [id number] [address] [place] [address] May, [facility] [address] [id number] [address] [place] [address] May, [facility] [address] [id number] [address] [place] [address] Apr, Cervical spondylosis without myelopathy 721.0 [facility] [address] [id number] [address] [place] [address] Mar, [facility] [address] [id number] [address] [place] [address] January, Cervical spondylosis without myelopathy 721.0 [facility] [address] [id number] [address] [place] [address] Dec, [facility] [address] [id number] [address] [place] [address] Dec, [facility] [address] [id number] [address] [place] [address] Dec, [facility] [address] [id number] [address] [place] [address] Nov, [facility] [address] [id number] [address] [place] [address] Nov, [facility] [address] [id number] [address] [place] [address] Oct, [facility] [address] [id number] [address] [place] [address] Oct, [facility] [address] [id number] [address] [place] [address] Oct, [facility] [address] [id number] [address] [place] [address] Oct, [facility] [address] [id number] [address] [place] [address], [place] [address] Oct, 2014 [facility] [address] [id number] [address] [place] [address], [place] [address] Oct, 2014 [facility] [address] [id number] [address] [place] [address], [place] [address] Oct, 2014 [facility] [address] [id number] [address] [place] [address], [place] [address] Oct, 2014 [facility] [address] [id number] [address] [place] [address], [place] [address] Oct, 2014 [facility] [address] [id number] [address] [place] [address], [place] [address] Oct, [facility] [address] [id number] [address] [place] [address], [place] [address] Sep, [facility] [address] [id number] [address] [place] [address], [place] [address] Sep, [facility] [address] [id number] [address] [place] [address], [place] [address] Sep, [facility] [address] [id number] [address] [place] [address], [place] [address] Sep, [facility] [address] [id number] [address] [place] [address], [place] [address] Sep, [facility] [address] [id number] [address] [place] [address], [place] [address] Sep, [facility] [address] [id number] [address] [place] [address], [place] [address] Sep, [facility] [address] [id number] [address] [place] [address], [place] [address] Sep, [facility] [address] [id number] [address] [place] [address], [place] [address] Sep, [facility] [address] [id number] [address] [place] [address], [place] [address] Aug, [facility] [address] [id number] [address] [place] [address], [place] [address] Aug, [facility] [address] [id number] [address] [place] [address], [place] [address] Aug, [facility] [address] [id number] [address] [place] [address], [place] [address] Aug, [facility] [address] [id number] [address] [place] [address], [place] [address] Jul, [facility] [address] [id number] [address] [place] [address], [place] [address] Jul, [facility] [address] [id number] [address] [place] [address], [place] [address] Jul, [facility] [address] [id number] [address] [place] [address], [place] [address] Jul, [facility] [address] [id number] [address] [place] [address], [place] [address] Jul, [facility] [address] [id number] [address] [place] [address], [place] [address] Jul, [facility] [address] [id number] [address] [place] [address], [place] [address] Jul, [facility] [address] [id number] [address] [place] [address], [place] [address] Jul, [facility] [address] [id number] [address] [place] [address], [place] [address] Jun, [facility] [address] [id number] [address] [place] [address], [place] [address] Jun, [facility] [address] [id number] [address] [place] [address], [place] [address] Jun, [facility] [address] [id number] [address] [place] [address], [place] [address] Jun, [facility] [address] [id number] [address] [place] [address], [place] [address] 16 Jun, 2014 [facility] [address] [id number] [address] [place] [address], [place] [address] 15 Jun, 2014 [facility] [address] [id number] [address] [place] [address], [place] [address] 15 Jun, 2014 [facility] [address] [id number] [address] [place] [address], [place] [address] 14 Jun, 2014 [facility] [address] [id number] [address] [place] [address], [place] [address] 14 Jun, 2014 [facility] [address] [id number] [address] [place] [address], [place] [address] 11 Jun, 2014 [facility] [address] [id number] [address] [place] [address], [place] [address] Jun, [facility] [address] [id number] [address] [place] [address], [place] [address] 24 May, 2014 [facility] [address] [id number] [address] [place] [address], [place] [address] 24 May, 2014 [facility] [address] [id number] [address] [place] [address], [place] [address] 08 May, 2014 [facility] [address] [id number] [address] [place] [address], [place] [address] 02 May, 2014 [facility] [address] [id number] [address] [place] [address], [place] [address] May, [facility] [address] [id number] [address] [place] [address], [place] [address] Apr, [facility] [address] [id number] [address] [place] [address], [place] [address] Apr, [facility] [address] [id number] [address] [place] [address], [place] [address] Apr, [facility] [address] [id number] [address] [place] [address], [place] [address] Apr, [facility] [address] [id number] [address] [place] [address], [place] [address] Apr, [facility] [address] [id number] [address] [place] [address], [place] [address] Apr, [facility] [address] [id number] [address] [place] [address], [place] [address] Mar, [facility] [address] [id number] [address] [place] [address], [place] [address] Mar, [facility] [address] [id number] [address] [place] [address], [place] [address] Mar, [facility] [address] [id number] [address] [place] [address], [place] [address] Mar, [facility] [address] [id number] [address] [place] [address], [place] [address] Mar, [facility] [address] [id number] [address] [place] [address], [place] [address] Mar, [facility] [address] [id number] [address] [place] [address], [place] [address] Feb, [facility] [address] [id number] [address] [place] [address], [place] [address] Feb, [facility] [address] [id number] [address] [place] [address], [place] [address] Feb, [facility] [address] [id number] [address] [place] [address], [place] [address] Feb, [facility] [address] [id number] [address] [place] [address], [place] [address] Feb, [facility] [address] [id number] [address] [place] [address], [place] [address] Feb, [facility] [address] [id number] [address] [place] [address], [place] [address] Feb, [facility] [address] [id number] [address] [place] [address], [place] [address] Feb, [facility] [address] [id number] [address] [place] [address], [place] [address] January, [facility] [address] [id number] [address] [place] [address], [place] [address] January, [facility] [address] [id number] [address] [place] [address], [place] [address] January, [facility] [address] [id number] [address] [place] [address], [place] [address] January, [facility] [address] [id number] [address] [place] [address], [place] [address] January, [facility] [address] [id number] [address] [place] [address], [place] [address] January, [facility] [address] [id number] [address] [place] [address], [place] [address] January, [facility] [address] [id number] [address] [place] [address], [place] [address] January, [facility] [address] [id number] [address] [place] [address], [place] [address] Dec, [facility] [address] [id number] [address] [place] [address], [place] [address] Dec, [facility] [address] [id number] [address] [place] [address], [place] [address] Dec, [facility] [address] [id number] [address] [place] [address], [place] [address] Dec, [facility] [address] [id number] [address] [place] [address], [place] [address] Dec, [facility] [address] [id number] [address] [place] [address], [place] [address] Dec, [facility] [address] [id number] [address] [place] [address], [place] [address] Nov, [facility] [address] [id number] [facility] [place] [address] Nov, [facility] [address] [id number] [facility] [place] [address] Nov, [facility] [address] [id number] [facility] [place] [address] Nov, [facility] [address] [id number] [address] [place] [address], [place] [address] Nov, [facility] [address] [id number] [address] [place] [address], [place] [address] Nov, [facility] [address] [id number] [address] [place] [address], [place] [address] Nov, [facility] [address] [id number] [address] [place] [address], [place] [address] Nov, [facility] [address] [id number] [address] [place] [address], [place] [address] Oct, [facility] [address] [id number] [address] [place] [address], [place] [address] Oct, [facility] [address] [id number] [address] [place] [address], [place] [address] Sep, [facility] [address] [id number] [address] [place] [address], [place] [address] Sep, [facility] [address] [id number] [address] [place] [address], [place] [address] Sep, [facility] [address] [id number] [address] [place] [address], [place] [address] Sep, [facility] [address] [id number] [address] [place] [address], [place] [address] Aug, [facility] [address] [id number] [address] [place] [address], [place] [address] Aug, [facility] [address] [id number] [address] [place] [address], [place] [address] Aug, [facility] [address] [id number] [address] [place] [address], [place] [address] Aug, [facility] [address] [id number] [address] [place] [address], [place] [address] Jul, [facility] [address] [id number] [address] [place] [address], [place] [address] Jul, [facility] [address] [id number] [address] [place] [address] Jul, [facility] [address] [id number] [address] [place] [address], [place] [address] Jul, [facility] [address] [id number] [address] [place] [address] Jul, [facility] [address] [id number] [address] [place] [address], [place] [address] Jul, [facility] [address] [id number] [address] [place] [address] Jul, [facility] [address] [id number] [address] [place] [address], [place] [address] Jul, [facility] [address] [id number] [address] [place] [address] Jul, [facility] [address] [id number] [address] [place] [address] Jul, [facility] [address] [id number] [address] [place] [address] Jul, [facility] [address] [id number] [address] [place] [address], [place] [address] Jul, [facility] [address] [id number] [address] [place] [address] Jun, [facility] [address] [id number] [address] [place] [address] Jun, [facility] [address] [id number] [address] [place] [address], [place] [address] Jun, [facility] [address] [id number] [address] [place] [address], [place] [address] 21 Jun, 2013 [facility] [address] [id number] [address] [place] [address], [place] [address] 16 Jun, 2013 [facility] [address] [id number] [address] [place] [address], [place] [address] 14 Jun, 2013 [facility] [address] [id number] [address] [place] [address], [place] [address] 14 Jun, 2013 [facility] [address] [id number] [address] [place] [address], [place] [address] 02 Jun, 2013 [facility] [address] [id number] [address] [place] [address], [place] [address] 15 May, 2013 [facility] [address] [id number] [address] [place] [address], [place] [address] 05 May, 2013 [facility] [address] [id number] [address] [place] [address], [place] [address] 04 May, 2013 [facility] [address] [id number] [address] [place] [address], [place] [address] Apr, [facility] [address] [id number] [address] [place] [address], [place] [address] Apr, [facility] [address] [id number] [address] [place] [address], [place] [address] Mar, [facility] [address] [id number] [address] [place] [address], [place] [address] Mar, [facility] [address] [id number] [address] [place] [address], [place] [address] Feb, [facility] [address] [id number] [address] [place] [address], [place] [address] January, [facility] [address] [id number] [address] [place] [address], [place] [address] January, [facility] [address] [id number] [address] [place] [address], [place] [address] 14 Jan, 2013 [facility] [address] [id number] [address] [place] [address], [place] [address] January, [facility] [address] [id number] [address] [place] [address], [place] [address] January, [facility] [address] [id number] [address] [place] [address], [place] [address] 29 Dec, 2012 [facility] [address] [id number] [address] [place] [address], [place] [address] Dec, [facility] [address] [id number] [address] [place] [address], [place] [address] Dec, [facility] [address] [id number] [address] [place] [address], [place] [address] Nov, [facility] [address] [id number] [address] [place] [address], [place] [address] Oct, [facility] [address] [id number] [address] [place] [address], [place] [address] 18 Oct, 2012 [facility] [address] [id number] [address] [place] [address], [place] [address] 15 Oct, 2012 [facility] [address] [id number] [address] [place] [address], [place] [address] Sep, [facility] [address] [id number] [address] [place] [address], [place] [address] 16 Sep, 2012 [facility] [address] [id number] [address] [place] [address], [place] [address] 14 Aug, 2012 [facility] [address] [id number] [address] [place] [address], [place] [address] 14 Aug, 2012 [facility] [address] [id number] [address] [place] [address], [place] [address] 11 Aug, 2012 [facility] [address] [id number] [address] [place] [address], [place] [address] Aug, [facility] [address] [id number] [address] [place] [address], [place] [address] Jul, [facility] [address] [id number] [address] [place] [address], [place] [address] Jul, [facility] [address] [id number] [address] [place] [address], [place] [address] Jul, [facility] [address] [id number] [address] [place] [address], [place] [address] Jul, [facility] [address] [id number] [address] [place] [address], [place] [address] Jul, [facility] [address] [id number] [address] [place] [address], [place] [address] Jun, [facility] [address] [id number] [address] [place] [address], [place] [address] Jun, [facility] [address] [id number] [address] [place] [address], [place] [address] Jun, [facility] [address] [id number] [address] [place] [address], [place] [address] Jun, [facility] [address] [id number] [address] [place] [address], [place] [address] May, [facility] [address] [id number] [address] [place] [address], [place] [address] Apr, [facility] [address] [id number] [address] [place] [address], [place] [address] Apr, [facility] [address] [id number] [address] [place] [address], [place] [address] Apr, [facility] [address] [id number] [address] [place] [address], [place] [address] Apr, [facility] [address] [id number] [address] [place] [address], [place] [address] January, [facility] [address] [id number] [address] [place] [address], [place] [address] January, [facility] [address] [id number] [address] [place] [address], [place] [address] Dec, [facility] [address] [id number] [address] [place] [address], [place] [address] Dec, [facility] [address] [id number] [address] [place] [address], [place] [address] Nov, [facility] [address] [id number] [address] [place] [address], [place] [address] Nov, [facility] [address] [id number] [address] [place] [address], [place] [address] Nov, [facility] [address] [id number] [address] [place] [address], [place] [address] Nov, [facility] [address] [id number] [address] [place] [address], [place] [address] Oct, [facility] [address] [id number] [address] [place] [address], [place] [address] Oct, [facility] [address] [id number] [address] [place] [address], [place] [address] Oct, [facility] [address] [id number] [address] [place] [address], [place] [address] Sep, [facility] [address] [id number] [address] [place] [address], [place] [address] Sep, [facility] [address] [id number] [address] [place] [address], [place] [address] Aug, [facility] [address] [id number] [address] [place] [address], [place] [address] Aug, [facility] [address] [id number] [address] [place] [address], [place] [address] Jul, [facility] [address] [id number] [address] [place] [address], [place] [address] Jul, [facility] [address] [id number] [address] [place] [address], [place] [address] Jul, [facility] [address] [id number] [address] [place] [address], [place] [address] Jun, [facility] [address] [id number] [address] [place] [address], [place] [address] Jun, [facility] [address] [id number] [address] [place] [address], [place] [address] Jun, [facility] [address] [id number] [address] [place] [address], [place] [address] Jun, [facility] [address] [id number] [address] [place] [address], [place] [address] Jun, [facility] [address] [id number] [address] [place] [address], [place] [address] Jun, [facility] [address] [id number] [address] [place] [address], [place] [address] Aug, [facility] [address] [id number] [address] [place] [address], [place] [address] Aug, [facility] [address] [id number] [address] [place] [address], [place] [address] Aug, [facility] [address] [id number] [address] [place] [address], [place] [address] Jul, [facility] [address] [id number] [address] [place] [address], [place] [address] Jul, [facility] [address] [id number] [address] [place] [address], [place] [address] Jul, [facility] [address] [id number] [address] [place] [address], [place] [address] 15 Jul, 2010 [facility] [address] [id number] [address] [place] [address], [place] [address] 15 Jul, 2010 [facility] [address] [id number] [address] [place] [address] 08 Jul, 2010 [facility] [address] [id number] [address] [place] [address] Jun, [facility] [address] [id number] [address] [place] [address] Apr, [facility] [place] [address] [id number] [address] [place] [address] Feb, [facility] [place] [address] [id number] [address] [place] [address] Oct, [facility] [place] [address] [id number] [address] [place] [address] Sep, [facility] [place] [address] [id number] [address] [place] [address] Aug, [facility] [place] [address] [id number] [address] [place] [address] Aug, [facility] [place] [address] [id number] [address] [place] [address] Aug, [facility] [place] [address] [id number] [address] [place] [address] Jul, [facility] [place] [address] [id number] [address] [place] [address] Jun, IMMUNIZATIONS No Known Immunizations SOCIAL HISTORY Never Assessed REASON FOR VISIT [facility] [place] PLAN OF CARE VITAL SIGNS MEDICATIONS Unknown [...]
--- OUTSIDE RECORDS SUMMARY | 2020-02-22 17:26 | XMS REPORT ---
Author Author Marion Alexander Doctor Organization [facility] Address Unknown Phone Unavailable Care Team Providers [employer] Specialist Name Role Phone Migration, Doctor Unavailable Unavailable PROBLEMS Type Condition ICD9-CM Code CFN57-MG Code Onset Dates Condition S tatus SNOMED Code Problem Migraine without aura and without status migrain osus, not intractable G43.009 Active 456591296 Problem Acquired hypothyroidism E03.9 Active 036244651 Problem Cervical disc disease M50.90 Active 817515558 Problem Dyspepsia R10.13 Active [id number] ALLERGIES No Information ENCOUNTERS Encounter Location Date Diagnosis [place] [address] [place] [id number] [address] [place] [address] Dec, Cervical disc disease M50.90 [place] [address] [place] [id number] [address] [place] [address] Dec, Cervical disc disease M50.90 [place] [address] [facility] [id number] [address] [place] [address] Dec, Cervical disc disease M50.90 [place] [address] [facility] [id number] [address] [place] [address] Dec, Cervical disc disease M50.90 ; Acquired hypothyroidism E03.9 and Migraine without aura and without status migrainosus, not intractable G43.009 [facility] [address] [facility] [id number] [address] [place] [address] Nov, [place] [address] [place] [id number] [address] [place] [address] Nov, Cervical disc disease M50.90 [place] [address] [facility] [id number] [address] [place] [address] Oct, Cervical disc disease M50.90 [place] [address] [facility] [id number] [address] [place] [address] Sep, [facility] [address] [id number] [address] [place] [address] Sep, Cervical disc disease M50.90 [facility] [address] [id number] [address] [place] [address] Aug, Cervical disc disease M50.90 [facility] [address] [id number] [address] [place] [address] Jul, Cervical disc disease M50.90 [facility] [address] [id number] [address] [place] [address] Jun, Acute recurrent pansinusitis J01.41 and Cervical disc disease M50.90 [facility] [address] [id number] [address] [place] [address] Jun, Cervical disc disease M50.90 [facility] [address] [id number] [address] [place] [address] May, Cervical disc disease M50.90 [facility] [address] [id number] [address] [place] [address] Apr, Cervical disc disease M50.90 [facility] [address] [id number] [address] [place] [address] Mar, Cervical disc disease M50.90 [facility] [address] [id number] [address] [place] [address] Mar, [facility] [address] [id number] [address] [place] [address] Mar, Cervical disc disease M50.90 [facility] [address] [id number] [address] [place] [address] Feb, Cervical disc disease M50.90 [facility] [address] [id number] [address] [place] [address] January, Cervical disc disease M50.90 [facility] [address] [id number] [address] [place] [address] Dec, [facility] [address] [facility] [id number] [address] [place] [address] Dec, Cervical disc disease M50.90 [facility] [address] [place] [id number] [address] [place] [address] Nov, Cervical disc disease M50.90 [facility] [address] [address] Nov, Cervical disc disease M50.90 [facility] [address] [place] [id number] [place] [address] 15 Oct, 2017 Cervical disc disease M50.90 [facility] [address] [place] [id number] [place] [address] 12 Oct, 2017 Cervical disc disease M50.90 and Acute non-recurrent maxillary sinusitis J01.00 [place] [address] [address] Sep, Cervical disc disease M50.90 [facility] [address] [address] Sep, [facility] [address] [address] Sep, Fatigue, unspecified type R5 3.83 and Cough R05 [facility] [address] [address] Aug, Cervical disc disease M50.90 [facility] [address] [place] [id number] [address] [place] [address] 16 Aug, 2017 Sore throat J02.9 ; Canker s ore K12.0 and History of anemia Z86.2 [facility] [address] [place] [id number] [address] [place] [address] Jul, Cervical disc disease M50.90 [facility] [address] [address] Jun, Cervical disc disease M50.90 [facility] [address] [id number] [address] [place] [address] Jun, Cervical disc disease M50.90 [facility] [address] [id number] [address] [place] [address] May, Cervical disc disease M50.90 [facility] [address] [id number] [address] [place] [address] Apr, Cervical disc disease M50.90 [facility] [address] [id number] [address] [place] [address] Apr, [facility] [address] [id number] [address] [place] [address] Feb, Cervical disc disease M50.90 [facility] [address] [id number] [address] [place] [address] January, Cervical disc disease M50.90 [facility] [address] [id number] [address] [place] [address] Nov, [facility] [address] [id number] [address] [place] [address] Nov, Cervical disc disease M50.90 [facility] [address] [id number] [address] [place] [address] Nov, Acute cystitis with hematuri a N30.01 and Dysuria R30.0 [facility] [address] [id number] [address] [place] [address] Oct, Cervical disc disease M50.90 and Acute non-recurrent frontal sinusitis J01.10 [facility] [address] [id number] [address] [place] [address] Sep, Neck pain M54.2 [facility] [address] [facility] [id number] [address] [place] [address] Sep, [facility] [address] [id number] [address] [place] [address] Aug, Cervical disc disease M50.90 [facility] [address] [facility] [id number] [address] [place] [address] Jul, [facility] [address] [facility] [id number] [address] [place] [address] Jun, [facility] [address] [facility] [id number] [address] [place] [address] May, [facility] [address] [facility] [id number] [address] [place] [address] May, Screening for diabetes emilio tunakia Z13.1 ; Chronic fatigue R53.82 and Edema, unspecified type R60.9 [facility] [address] [facility] [id number] [address] [place] [address] Apr, Neck pain M54.2 [facility] [address] [facility] [id number] [address] [place] [address] Mar, [facility] [address] [facility] [id number] [address] [place] [address] Mar, Neck pain M54.2 [facility] [address] [facility] [id number] [address] [place] [address] Feb, Cervical disc disease M50.90 [facility] [address] [facility] [id number] [address] [place] [address] Feb, Cervical disc disease M50.90 [facility] [address] [facility] [id number] [address] [place] [address] January, [facility] [address] [facility] [id number] [address] [place] [address] January, [facility] [address] [facility] [id number] [address] [place] [address] January, Cervical disc disease M50.90 [facility] [address] [facility] [id number] [address] [place] [address] January, [facility] [address] [id number] [address] [place] [address] January, [facility] [address] [id number] [address] [place] [address] Dec, Cervical disc disease M50.90 [facility] [address] [id number] [address] [place] [address] Nov, Cervical disc disease M50.90 [facility] [address] [id number] [address] [place] [address] Oct, Cervical disc disease M50.90 [facility] [address] [id number] [address] [place] [address] Sep, Cervical disc disease M50.90 [facility] [address] [id number] [address] [place] [id number] Aug, Dental caries K02.9 and Enco unter for dental examination Z01.20 [facility] [address] [id number] [address] [place] [address] Aug, [facility] [address] [id number] [address] [place] [id number] Aug, [facility] [address] [id number] [address] [place] [id number] Aug, Encounter for dental examina tion Z01.20 [facility] [address] [id number] [address] [place] [address] Jul, [facility] [address] [id number] [address] [place] [address] Jun, Sinusitis J32.9 and Cervical disc disease M50.90 [facility] [address] [id number] [address] [place] [address] Jun, [facility] [address] [id number] [address] [place] [address] 24 May, 2015 [facility] [address] [id number] [address] [place] [address] May, [facility] [address] [id number] [address] [place] [id number] May, [facility] [address] [id number] [address] [place] [address] May, [facility] [address] [id number] [address] [place] [address] Apr, Cervical spondylosis without myelopathy 721.0 [facility] [address] [id number] [address] [place] [address] Mar, [facility] [address] [id number] [address] [place] [address] January, Cervical spondylosis without myelopathy 721.0 [facility] [address] [id number] [address] [place] [address] Dec, [facility] [address] [id number] [address] [place] [id number] Dec, [facility] [address] [id number] [address] [place] [address] Dec, [facility] [address] [id number] [address] [place] [address] Nov, [facility] [address] [id number] [address] [place] [id number] Nov, [facility] [address] [id number] [address] [place] [address] Oct, [facility] [address] [id number] [address] [place] [phone] Oct, [facility] [address] [id number] [address] [place] [phone] Oct, [facility] [address] [id number] [address] [place] [address] Oct, [facility] [address] [id number] [address] [place] [address], [place] [address] Oct, 2014 [facility] [address] [id number] [address] [place] [address], [place] [address] Oct, 2014 [facility] [address] [id number] [address] [place] [address], [place] [address] Oct, 2014 [facility] [address] [id number] [address] [place] [address], [place] [address] Oct, 2014 [facility] [address] [id number] [address] [place] [address], [place] [address] Oct, 2014 [facility] [address] [id number] [address] [place] [address], [place] [address] Oct, [facility] [address] [id number] [address] [place] [address], [place] [address] Sep, [facility] [address] [id number] [address] [place] [address], [place] [address] Sep, [facility] [address] [id number] [address] [place] [address], [place] [address] Sep, [facility] [address] [id number] [address] [place] [address], [place] [address] Sep, [facility] [address] [id number] [address] [place] [address], [place] [address] Sep, [facility] [address] [id number] [address] [place] [address], [place] [address] Sep, [facility] [address] [id number] [address] [place] [address], [place] [address] Sep, [facility] [address] [id number] [address] [place] [address], [place] [address] Sep, [facility] [address] [id number] [address] [place] [address], [place] [address] Sep, [facility] [address] [id number] [address] [place] [address], [place] [address] Aug, [facility] [address] [id number] [address] [place] [address], [place] [address] Aug, [facility] [address] [id number] [address] [place] [address], [place] [address] Aug, [facility] [address] [id number] [address] [place] [address], [place] [address] Aug, [facility] [address] [id number] [address] [place] [address], [place] [address] Jul, [facility] [address] [id number] [address] [place] [address], [place] [address] Jul, [facility] [address] [id number] [address] [place] [address], [place] [id number] Jul, [facility] [address] [id number] [address] [place] [address], [place] [address] Jul, [facility] [address] [id number] [address] [place] [address], [place] [address] Jul, [facility] [address] [id number] [address] [place] [address], [place] [address] Jul, [facility] [address] [id number] [address] [place] [address], [place] [address] Jul, [facility] [address] [id number] [address] [place] [address], [place] [address] Jul, [facility] [address] [id number] [address] [place] [address], [place] [address] Jun, [facility] [address] [id number] [address] [place] [address], [place] [address] Jun, [facility] [address] [id number] [address] [place] [address], [place] [address] Jun, [facility] [address] [id number] [address] [place] [address], [place] [address] Jun, [facility] [address] [id number] [address] [place] [address], [place] [address] 16 Jun, 2014 [facility] [address] [id number] [address] [place] [address], [place] [address] 15 Jun, 2014 [facility] [address] [id number] [address] [place] [address], [place] [address] 15 Jun, 2014 [facility] [address] [id number] [address] [place] [address], [place] [address] 14 Jun, 2014 [facility] [address] [id number] [address] [place] [address], [place] [address] 14 Jun, 2014 [facility] [address] [id number] [address] [place] [address], [place] [address] 11 Jun, 2014 [facility] [address] [id number] [address] [place] [address], [place] [address] Jun, [facility] [address] [id number] [address] [place] [address], [place] [address] 24 May, 2014 [facility] [address] [id number] [address] [place] [address], [place] [address] 24 May, 2014 [facility] [address] [id number] [address] [place] [address], [place] [address] 08 May, 2014 [facility] [address] [id number] [address] [place] [address], [place] [address] 02 May, 2014 [facility] [address] [id number] [address] [place] [address], [place] [address] May, [facility] [address] [id number] [address] [place] [address], [place] [address] Apr, [facility] [address] [id number] [address] [place] [address], [place] [address] Apr, [facility] [address] [id number] [address] [place] [address], [place] [address] Apr, [facility] [address] [id number] [address] [place] [address], [place] [address] Apr, [facility] [address] [id number] [address] [place] [address], [place] [address] Apr, [facility] [address] [id number] [address] [place] [address], [place] [address] Apr, [facility] [address] [id number] [address] [place] [address], [place] [address] Mar, [facility] [address] [id number] [address] [place] [address], [place] [address] Mar, [facility] [address] [id number] [address] [place] [address], [place] [address] Mar, [facility] [address] [id number] [address] [place] [address], [place] [address] Mar, [facility] [address] [id number] [address] [place] [address], [place] [address] Mar, [facility] [address] [id number] [address] [place] [address], [place] [address] Mar, [facility] [address] [id number] [address] [place] [address], [place] [address] Feb, [facility] [address] [id number] [address] [place] [address], [place] [address] Feb, [facility] [address] [id number] [address] [place] [address], [place] [address] Feb, [facility] [address] [id number] [address] [place] [address], [place] [address] Feb, [facility] [address] [id number] [address] [place] [address], [place] [address] Feb, [facility] [address] [id number] [address] [place] [address], [place] [address] Feb, [facility] [address] [id number] [address] [place] [address], [place] [address] Feb, [facility] [address] [id number] [address] [place] [address], [place] [address] Feb, [facility] [address] [id number] [address] [place] [address], [place] [address] January, [facility] [address] [id number] [address] [place] [address], [place] [address] January, [facility] [address] [id number] [address] [place] [address], [place] [address] January, [facility] [address] [id number] [address] [place] [address], [place] [address] January, [facility] [address] [id number] [address] [place] [address], [place] [id number] January, [facility] [address] [id number] [address] [place] [address], [place] [id number] January, [facility] [address] [id number] [address] [place] [address], [place] [address] January, [facility] [address] [id number] [address] [place] [address], [place] [address] January, [facility] [address] [id number] [address] [place] [address], [place] [address] Dec, [facility] [address] [id number] [address] [place] [address], [place] [address] Dec, [facility] [address] [id number] [address] [place] [address], [place] [address] Dec, [facility] [address] [id number] [address] [place] [address], [place] [address] Dec, [facility] [address] [id number] [address] [place] [address], [place] [address] Dec, [facility] [address] [id number] [address] [place] [address], [place] [address] Dec, [facility] [address] [id number] [address] [place] [address], [place] [address] Nov, [facility] [address] [id number] [facility] [place] [address] Nov, [facility] [address] [id number] [facility] [place] [address] Nov, [facility] [address] [id number] [facility] [place] [address] Nov, [facility] [address] [id number] [address] [place] [address], [place] [address] Nov, [facility] [address] [id number] [address] [place] [address], [place] [id number] Nov, [facility] [address] [id number] [address] [place] [address], [place] [id number] Nov, [facility] [address] [id number] [address] [place] [address], [place] [id number] Nov, [facility] [address] [id number] [address] [place] [address], [place] [id number] Oct, [facility] [address] [id number] [address] [place] [address], [place] [address] Oct, [facility] [address] [id number] [address] [place] [address], [place] [address] Sep, [facility] [address] [id number] [address] [place] [address], [place] [id number] Sep, [facility] [address] [id number] [address] [place] [address], [place] [address] Sep, [facility] [address] [id number] [address] [place] [address], [place] [address] Sep, [facility] [address] [id number] [address] [place] [address], [place] [address] Aug, [facility] [address] [id number] [address] [place] [address], [place] [address] Aug, [facility] [address] [id number] [address] [place] [address], [place] [address] Aug, [facility] [address] [id number] [address] [place] [address], [place] [id number] Aug, [facility] [address] [id number] [address] [place] [address], [place] [id number] Jul, [facility] [address] [id number] [address] [place] [address], [place] [address] Jul, [facility] [address] [id number] [address] [place] [id number] Jul, [facility] [address] [id number] [address] [place] [address], [place] [address] Jul, [facility] [address] [id number] [address] [place] [id number] Jul, [facility] [address] [id number] [address] [place] [address], [place] [address] Jul, [facility] [address] [id number] [address] [place] [id number] Jul, [facility] [address] [id number] [address] [place] [address], [place] [address] Jul, [facility] [address] [id number] [address] [place] [id number] Jul, [facility] [address] [address] [id number] [address] [place] [id number] Jul, [facility] [address] [id number] [address] [place] [id number] Jul, [facility] [address] [id number] [address] [place] [address], [place] [address] Jul, [facility] [address] [id number] [address] [place] [address] Jun, [facility] [address] [id number] [address] [place] [address] Jun, [facility] [address] [id number] [address] [place] [address], [place] [address] Jun, [facility] [address] [id number] [address] [place] [address], [place] [address] 21 Jun, 2013 [facility] [address] [id number] [address] [place] [address], [place] [address] 16 Jun, 2013 [facility] [address] [id number] [address] [place] [address], [place] [address] 14 Jun, 2013 [facility] [address] [id number] [address] [place] [address], [place] [address] 14 Jun, 2013 [facility] [address] [id number] [address] [place] [address], [place] [address] 02 Jun, 2013 [facility] [address] [id number] [address] [place] [address], [place] [address] 15 May, 2013 [facility] [address] [id number] [address] [place] [address], [place] [address] 05 May, 2013 [facility] [address] [id number] [address] [place] [address], [place] [address] 04 May, 2013 [facility] [address] [id number] [address] [place] [address], [place] [address] Apr, [facility] [address] [id number] [address] [place] [address], [place] [address] Apr, [facility] [address] [id number] [address] [place] [address], [place] [address] Mar, [facility] [address] [id number] [address] [place] [address], [place] [address] Mar, [facility] [address] [id number] [address] [place] [address], [place] [address] Feb, [facility] [address] [id number] [address] [place] [address], [place] [address] January, [facility] [address] [id number] [address] [place] [address], [place] [address] January, [facility] [address] [id number] [address] [place] [address], [place] [address] 14 Jan, 2013 [facility] [address] [id number] [address] [place] [address], [place] [address] January, [facility] [address] [id number] [address] [place] [address], [place] [address] January, [facility] [address] [id number] [address] [place] [address], [place] [address] 29 Dec, 2012 [facility] [address] [id number] [address] [place] [address], [place] [address] Dec, [facility] [address] [id number] [address] [place] [address], [place] [address] Dec, [facility] [address] [id number] [address] [place] [address], [place] [address] Nov, [facility] [address] [id number] [address] [place] [address], [place] [address] Oct, [facility] [address] [id number] [address] [place] [address], [place] [address] 18 Oct, 2012 [facility] [address] [id number] [address] [place] [address], [place] [address] 15 Oct, 2012 [facility] [address] [id number] [address] [place] [address], [place] [address] Sep, [facility] [address] [id number] [address] [place] [address], [place] [address] 16 Sep, 2012 [facility] [address] [id number] [address] [place] [address], [place] [address] 14 Aug, 2012 [facility] [address] [id number] [address] [place] [address], [place] [address] 14 Aug, 2012 [facility] [address] [id number] [address] [place] [address], [place] [address] 11 Aug, 2012 [facility] [address] [id number] [address] [place] [address], [place] [address] Aug, [facility] [address] [id number] [address] [place] [address], [place] [address] Jul, [facility] [address] [id number] [address] [place] [address], [place] [address] Jul, [facility] [address] [id number] [address] [place] [address], [place] [address] Jul, [facility] [address] [id number] [address] [place] [address], [place] [address] Jul, [facility] [address] [id number] [address] [place] [address], [place] [address] Jul, [facility] [address] [id number] [address] [place] [address], [place] [address] Jun, [facility] [address] [id number] [address] [place] [address], [place] [address] Jun, [facility] [address] [id number] [address] [place] [address], [place] [address] Jun, [facility] [address] [id number] [address] [place] [address], [place] [address] Jun, [facility] [address] [id number] [address] [place] [address], [place] [address] May, [facility] [address] [id number] [address] [place] [address], [place] [address] Apr, [facility] [address] [id number] [address] [place] [address], [place] [address] Apr, [facility] [address] [id number] [address] [place] [address], [place] [address] Apr, [facility] [address] [id number] [address] [place] [address], [place] [address] Apr, [facility] [address] [id number] [address] [place] [address], [place] [address] January, [facility] [address] [id number] [address] [place] [address], [place] [address] January, [facility] [address] [id number] [address] [place] [address], [place] [address] Dec, [facility] [address] [id number] [address] [place] [address], [place] [address] Dec, [facility] [address] [id number] [address] [place] [address], [place] [address] Nov, [facility] [address] [id number] [address] [place] [address], [place] [address] Nov, [facility] [address] [id number] [address] [place] [address], [place] [address] Nov, [facility] [address] [id number] [address] [place] [address], [place] [address] Nov, [facility] [address] [id number] [address] [place] [address], [place] [address] Oct, [facility] [address] [id number] [address] [place] [address], [place] [address] Oct, [facility] [address] [id number] [address] [place] [address], [place] [address] Oct, [facility] [address] [id number] [address] [place] [address], [place] [address] Sep, [facility] [address] [id number] [address] [place] [address], [place] [address] Sep, [facility] [address] [id number] [address] [place] [address], [place] [address] Aug, [facility] [address] [id number] [address] [place] [address], [place] [address] Aug, [facility] [address] [id number] [address] [place] [address], [place] [address] Jul, [facility] [address] [id number] [address] [place] [address], [place] [address] Jul, [facility] [address] [id number] [address] [place] [address], [place] [address] Jul, [facility] [address] [id number] [address] [place] [address], [place] [address] Jun, [facility] [address] [id number] [address] [place] [address], [place] [address] Jun, [facility] [address] [id number] [address] [place] [address], [place] [address] Jun, [facility] [address] [id number] [address] [place] [address], [place] [address] Jun, [facility] [address] [id number] [address] [place] [address], [place] [address] Jun, [facility] [address] [id number] [address] [place] [address], [place] [address] Jun, [facility] [address] [id number] [address] [place] [address], [place] [address] Aug, [facility] [address] [id number] [address] [place] [address], [place] [address] Aug, [facility] [address] [id number] [address] [place] [address], [place] [address] Aug, [facility] [address] [id number] [address] [place] [address], [place] [address] Jul, [facility] [address] [id number] [address] [place] [address], [place] [address] Jul, [facility] [address] [id number] [address] [place] [address], [place] [address] Jul, [facility] [address] [id number] [address] [place] [address], [place] [address] 15 Jul, 2010 [facility] [address] [id number] [address] [place] [address], [place] [address] 15 Jul, 2010 [facility] [address] [id number] [address] [place] [id number] 08 Jul, 2010 [facility] [address] [id number] [address] [place] [id number] Jun, [facility] [address] [id number] [address] [place] [id number] Apr, [facility] [address] [id number] [address] [place] [address] Feb, [facility] [address] [id number] [address] [place] [id number] Oct, [facility] [address] [id number] [address] [place] [id number] Sep, [facility] [address] [id number] [address] [place] [id number] Aug, [facility] [address] [id number] [address] [place] [address] Aug, [facility] [address] [id number] [address] [place] [id number] Aug, [facility] [address] [id number] [address] [place] [address] Jul, [facility] [address] [id number] [address] [place] [id number] Jun, IMMUNIZATIONS No Known Immunizations SOCIAL HISTORY Never Assessed REASON FOR VISIT [facility] [place] OF CARE VITAL SIGNS MEDICATIONS Unknown [...]
--- OUTSIDE RECORDS SUMMARY | 2020-02-22 17:26 | XMS REPORT ---
Author Author Marion Alexander Doctor Organization [facility] Address Unknown Phone Unavailable Care Team Providers Care Proposal Manager Name Role Phone Migration, Doctor Unavailable Unavailable PROBLEMS Type Condition ICD9-CM Code EIC91-YQ Code Onset Dates Condition S tatus SNOMED Code Problem Migraine without aura and without status migrain osus, not intractable G43.009 Active 870068545 Problem Acquired hypothyroidism E03.9 Active 755907823 Problem Cervical disc disease M50.90 Active 350335114 Problem Dyspepsia R10.13 Active [id number] ALLERGIES No Information ENCOUNTERS Encounter Location Date Diagnosis [place] [address] [place] [id number] [address] [place] [id number] Dec, Cervical disc disease M50.90 [place] [address] [place] [id number] [address] [place] [id number] Dec, Cervical disc disease M50.90 [place] [address] [facility] [id number] [address] [place] [address] Dec, Cervical disc disease M50.90 [place] [address] [facility] [id number] [address] [place] [address] Dec, Cervical disc disease M50.90 ; Acquired hypothyroidism E03.9 and Migraine without aura and without status migrainosus, not intractable G43.009 [facility] [address] [facility] [id number] [address] [place] [phone] Nov, [place] [address] [place] [id number] [address] [place] [address] Nov, Cervical disc disease M50.90 [place] [address] [facility] [id number] [address] [place] [address] Oct, Cervical disc disease M50.90 [place] [address] [facility] [id number] [address] [place] [address] Sep, [facility] [address] [id number] [address] [place] [address] Sep, Cervical disc disease M50.90 [facility] [address] [id number] [address] [place] [address] Aug, Cervical disc disease M50.90 [facility] [address] [id number] [address] [place] [phone] Jul, Cervical disc disease M50.90 [facility] [address] [id number] [address] [place] [id number] Jun, Acute recurrent pansinusitis J01.41 and Cervical disc disease M50.90 [facility] [address] [id number] [address] [place] [address] Jun, Cervical disc disease M50.90 [facility] [address] [id number] [address] [place] [address] May, Cervical disc disease M50.90 [facility] [address] [id number] [address] [place] [address] Apr, Cervical disc disease M50.90 [facility] [address] [id number] [address] [place] [address] Mar, Cervical disc disease M50.90 [facility] [address] [id number] [address] [place] [address] Mar, [facility] [address] [id number] [address] [place] [address] Mar, Cervical disc disease M50.90 [facility] [address] [id number] [address] [place] [id number] Feb, Cervical disc disease M50.90 [facility] [address] [id number] [address] [place] [address] January, Cervical disc disease M50.90 [facility] [address] [id number] [address] [place] [phone] Dec, [facility] [address] [facility] [id number] [address] [place] [address] Dec, Cervical disc disease M50.90 [facility] [address] [place] [id number] [address] [place] [address] Nov, Cervical disc disease M50.90 [facility] [address] [address] Nov, Cervical disc disease M50.90 [facility] [address] [place] [id number] [place] [address] 15 Oct, 2017 Cervical disc disease M50.90 [facility] [address] [place] [id number] [place] [address] 12 Oct, 2017 Cervical disc disease M50.90 and Acute non-recurrent maxillary sinusitis J01.00 [place] [address] [address] Sep, Cervical disc disease M50.90 [facility] [address] [address] Sep, [facility] [address] [address] Sep, Fatigue, unspecified type R5 3.83 and Cough R05 [facility] [address] [address] Aug, Cervical disc disease M50.90 [facility] [address] [place] [id number] [address] [place] [phone] 16 Aug, 2017 Sore throat J02.9 ; Canker s ore K12.0 and History of anemia Z86.2 [facility] [address] [place] [id number] [address] [place] [address] Jul, Cervical disc disease M50.90 [facility] [address] [address] Jun, Cervical disc disease M50.90 [facility] [address] [id number] [address] [place] [phone] Jun, Cervical disc disease M50.90 [facility] [address] [id number] [address] [place] [address] May, Cervical disc disease M50.90 [facility] [address] [id number] [address] [place] [id number] Apr, Cervical disc disease M50.90 [facility] [address] [id number] [address] [place] [id number] Apr, [facility] [address] [id number] [address] [place] [address] Feb, Cervical disc disease M50.90 [facility] [address] [id number] [address] [place] [address] January, Cervical disc disease M50.90 [facility] [address] [id number] [address] [place] [id number] Nov, [facility] [address] [id number] [address] [place] [address] Nov, Cervical disc disease M50.90 [facility] [address] [id number] [address] [place] [id number] Nov, Acute cystitis with hematuri a N30.01 and Dysuria R30.0 [facility] [address] [id number] [address] [place] [phone] Oct, Cervical disc disease M50.90 and Acute non-recurrent frontal sinusitis J01.10 [facility] [address] [id number] [address] [place] [phone] Sep, Neck pain M54.2 [facility] [address] [facility] [id number] [address] [place] [id number] Sep, [facility] [address] [id number] [address] [place] [id number] Aug, Cervical disc disease M50.90 [facility] [address] [facility] [id number] [address] [place] [phone] Jul, [facility] [address] [facility] [id number] [address] [place] [phone] Jun, [facility] [address] [facility] [id number] [address] [place] [id number] May, [facility] [address] [facility] [id number] [address] [place] [address] May, Screening for diabetes emilio tunakia Z13.1 ; Chronic fatigue R53.82 and Edema, unspecified type R60.9 [facility] [address] [facility] [id number] [address] [place] [id number] Apr, Neck pain M54.2 [facility] [address] [facility] [id number] [address] [place] [id number] Mar, [facility] [address] [facility] [id number] [address] [place] [phone] Mar, Neck pain M54.2 [facility] [address] [facility] [id number] [address] [place] [phone] Feb, Cervical disc disease M50.90 [facility] [address] [facility] [id number] [address] [place] [phone] Feb, Cervical disc disease M50.90 [facility] [address] [facility] [id number] [address] [place] [id number] January, [facility] [address] [facility] [id number] [address] [place] [phone] January, [facility] [address] [facility] [id number] [address] [place] [id number] January, Cervical disc disease M50.90 [facility] [address] [facility] [id number] [address] [place] [id number] January, [facility] [address] [id number] [address] [place] [phone] January, [facility] [address] [id number] [address] [place] [id number] Dec, Cervical disc disease M50.90 [facility] [address] [id number] [address] [place] [id number] Nov, Cervical disc disease M50.90 [facility] [address] [id number] [address] [place] [id number] Oct, Cervical disc disease M50.90 [facility] [address] [id number] [address] [place] [id number] Sep, Cervical disc disease M50.90 [facility] [address] [id number] [address] [place] [id number] Aug, Dental caries K02.9 and Enco unter for dental examination Z01.20 [facility] [address] [id number] [address] [place] [phone] Aug, [facility] [address] [id number] [address] [place] [id number] Aug, [facility] [address] [id number] [address] [place] [id number] Aug, Encounter for dental examina tion Z01.20 [facility] [address] [id number] [address] [place] [phone] Jul, [facility] [address] [id number] [address] [place] [phone] Jun, Sinusitis J32.9 and Cervical disc disease M50.90 [facility] [address] [id number] [address] [place] [phone] Jun, [facility] [address] [id number] [address] [place] [id number] 24 May, 2015 [facility] [address] [id number] [address] [place] [id number] May, [facility] [address] [id number] [address] [place] [phone] May, [facility] [address] [id number] [address] [place] [phone] May, [facility] [address] [id number] [address] [place] [phone] Apr, Cervical spondylosis without myelopathy 721.0 [facility] [address] [id number] [address] [place] [id number] Mar, [facility] [address] [id number] [address] [place] [id number] January, Cervical spondylosis without myelopathy 721.0 [facility] [address] [id number] [address] [place] [id number] Dec, [facility] [address] [id number] [address] [place] [id number] Dec, [facility] [address] [id number] [address] [place] [phone] Dec, [facility] [address] [id number] [address] [place] [id number] Nov, [facility] [address] [id number] [address] [place] [phone] Nov, [facility] [address] [id number] [address] [place] [id number] Oct, [facility] [address] [id number] [address] [place] [phone] Oct, [facility] [address] [id number] [address] [place] [phone] Oct, [facility] [address] [id number] [address] [place] [id number] Oct, [facility] [address] [id number] [address] [place] [address], [place] [address] Oct, 2014 [facility] [address] [id number] [address] [place] [address], [place] [address] Oct, 2014 [facility] [address] [id number] [address] [place] [address], [place] [address] Oct, 2014 [facility] [address] [id number] [address] [place] [address], [place] [address] Oct, 2014 [facility] [address] [id number] [address] [place] [address], [place] [address] Oct, 2014 [facility] [address] [id number] [address] [place] [address], [place] [address] Oct, [facility] [address] [id number] [address] [place] [address], [place] [address] Sep, [facility] [address] [id number] [address] [place] [address], [place] [address] Sep, [facility] [address] [id number] [address] [place] [address], [place] [address] Sep, [facility] [address] [id number] [address] [place] [address], [place] [address] Sep, [facility] [address] [id number] [address] [place] [address], [place] [address] Sep, [facility] [address] [id number] [address] [place] [address], [place] [address] Sep, [facility] [address] [id number] [address] [place] [address], [place] [address] Sep, [facility] [address] [id number] [address] [place] [address], [place] [address] Sep, [facility] [address] [id number] [address] [place] [address], [place] [address] Sep, [facility] [address] [id number] [address] [place] [address], [place] [address] Aug, [facility] [address] [id number] [address] [place] [address], [place] [address] Aug, [facility] [address] [id number] [address] [place] [address], [place] [address] Aug, [facility] [address] [id number] [address] [place] [address], [place] [address] Aug, [facility] [address] [id number] [address] [place] [address], [place] [address] Jul, [facility] [address] [id number] [address] [place] [address], [place] [address] Jul, [facility] [address] [id number] [address] [place] [address], [place] [address] Jul, [facility] [address] [id number] [address] [place] [address], [place] [address] Jul, [facility] [address] [id number] [address] [place] [address], [place] [address] Jul, [facility] [address] [id number] [address] [place] [address], [place] [address] Jul, [facility] [address] [id number] [address] [place] [address], [place] [address] Jul, [facility] [address] [id number] [address] [place] [address], [place] [address] Jul, [facility] [address] [id number] [address] [place] [address], [place] [address] Jun, [facility] [address] [id number] [address] [place] [address], [place] [address] Jun, [facility] [address] [id number] [address] [place] [address], [place] [address] Jun, [facility] [address] [id number] [address] [place] [address], [place] [address] Jun, [facility] [address] [id number] [address] [place] [address], [place] [address] 16 Jun, 2014 [facility] [address] [id number] [address] [place] [address], [place] [address] 15 Jun, 2014 [facility] [address] [id number] [address] [place] [address], [place] [address] 15 Jun, 2014 [facility] [address] [id number] [address] [place] [address], [place] [address] 14 Jun, 2014 [facility] [address] [id number] [address] [place] [address], [place] [address] 14 Jun, 2014 [facility] [address] [id number] [address] [place] [address], [place] [address] 11 Jun, 2014 [facility] [address] [id number] [address] [place] [address], [place] [address] Jun, [facility] [address] [id number] [address] [place] [address], [place] [address] 24 May, 2014 [facility] [address] [id number] [address] [place] [address], [place] [address] 24 May, 2014 [facility] [address] [id number] [address] [place] [address], [place] [address] 08 May, 2014 [facility] [address] [id number] [address] [place] [address], [place] [address] 02 May, 2014 [facility] [address] [id number] [address] [place] [address], [place] [address] May, [facility] [address] [id number] [address] [place] [address], [place] [address] Apr, [facility] [address] [id number] [address] [place] [address], [place] [address] Apr, [facility] [address] [id number] [address] [place] [address], [place] [address] Apr, [facility] [address] [id number] [address] [place] [address], [place] [address] Apr, [facility] [address] [id number] [address] [place] [address], [place] [address] Apr, [facility] [address] [id number] [address] [place] [address], [place] [address] Apr, [facility] [address] [id number] [address] [place] [address], [place] [address] Mar, [facility] [address] [id number] [address] [place] [address], [place] [address] Mar, [facility] [address] [id number] [address] [place] [address], [place] [address] Mar, [facility] [address] [id number] [address] [place] [address], [place] [address] Mar, [facility] [address] [id number] [address] [place] [address], [place] [address] Mar, [facility] [address] [id number] [address] [place] [address], [place] [address] Mar, [facility] [address] [id number] [address] [place] [address], [place] [address] Feb, [facility] [address] [id number] [address] [place] [address], [place] [address] Feb, [facility] [address] [id number] [address] [place] [address], [place] [address] Feb, [facility] [address] [id number] [address] [place] [address], [place] [address] Feb, [facility] [address] [id number] [address] [place] [address], [place] [address] Feb, [facility] [address] [id number] [address] [place] [address], [place] [address] Feb, [facility] [address] [id number] [address] [place] [address], [place] [address] Feb, [facility] [address] [id number] [address] [place] [address], [place] [address] Feb, [facility] [address] [id number] [address] [place] [address], [place] [address] January, [facility] [address] [id number] [address] [place] [address], [place] [address] January, [facility] [address] [id number] [address] [place] [address], [place] [address] January, [facility] [address] [id number] [address] [place] [address], [place] [address] January, [facility] [address] [id number] [address] [place] [address], [place] [address] January, [facility] [address] [id number] [address] [place] [address], [place] [address] January, [facility] [address] [id number] [address] [place] [address], [place] [address] January, [facility] [address] [id number] [address] [place] [address], [place] [address] January, [facility] [address] [id number] [address] [place] [address], [place] [address] Dec, [facility] [address] [id number] [address] [place] [address], [place] [address] Dec, [facility] [address] [id number] [address] [place] [address], [place] [address] Dec, [facility] [address] [id number] [address] [place] [address], [place] [address] Dec, [facility] [address] [id number] [address] [place] [address], [place] [address] Dec, [facility] [address] [id number] [address] [place] [address], [place] [address] Dec, [facility] [address] [id number] [address] [place] [address], [place] [address] Nov, [facility] [address] [id number] [address] [place] [address] Nov, [facility] [address] [id number] [address] [place] [address] Nov, [facility] [address] [id number] [facility] [place] [address] Nov, [facility] [address] [id number] [address] [place] [address], [place] [address] Nov, [facility] [address] [id number] [address] [place] [address], [place] [address] Nov, [facility] [address] [id number] [address] [place] [address], [place] [address] Nov, [facility] [address] [id number] [address] [place] [address], [place] [address] Nov, [facility] [address] [id number] [address] [place] [address], [place] [address] Oct, [facility] [address] [id number] [address] [place] [address], [place] [address] Oct, [facility] [address] [id number] [address] [place] [address], [place] [address] Sep, [facility] [address] [id number] [address] [place] [address], [place] [address] Sep, [facility] [address] [id number] [address] [place] [address], [place] [address] Sep, [facility] [address] [id number] [address] [place] [address], [place] [address] Sep, [facility] [address] [id number] [address] [place] [address], [place] [address] Aug, [facility] [address] [id number] [address] [place] [address], [place] [address] Aug, [facility] [address] [id number] [address] [place] [address], [place] [address] Aug, [facility] [address] [id number] [address] [place] [address], [place] [address] Aug, [facility] [address] [id number] [address] [place] [address], [place] [address] Jul, [facility] [address] [id number] [address] [place] [address], [place] [address] Jul, [facility] [address] [id number] [address] [place] [id number] Jul, [facility] [address] [id number] [address] [place] [address], [place] [address] Jul, [facility] [address] [id number] [address] [place] [id number] Jul, [facility] [address] [id number] [address] [place] [address], [place] [address] Jul, [facility] [address] [id number] [address] [place] [address] Jul, [facility] [address] [id number] [address] [place] [address], [place] [address] Jul, [facility] [address] [id number] [address] [place] [address] Jul, [facility] [address] [id number] [address] [place] [address] Jul, [facility] [address] [id number] [address] [place] [address] Jul, [facility] [address] [id number] [address] [place] [address], [place] [address] Jul, [facility] [address] [id number] [address] [place] [address] Jun, [facility] [address] [id number] [address] [place] [address] Jun, [facility] [address] [id number] [address] [place] [address], [place] [address] Jun, [facility] [address] [id number] [address] [place] [address], [place] [address] 21 Jun, 2013 [facility] [address] [id number] [address] [place] [address], [place] [address] 16 Jun, 2013 [facility] [address] [id number] [address] [place] [address], [place] [address] 14 Jun, 2013 [facility] [address] [id number] [address] [place] [address], [place] [address] 14 Jun, 2013 [facility] [address] [id number] [address] [place] [address], [place] [address] 02 Jun, 2013 [facility] [address] [id number] [address] [place] [address], [place] [address] 15 May, 2013 [facility] [address] [id number] [address] [place] [address], [place] [address] 05 May, 2013 [facility] [address] [id number] [address] [place] [address], [place] [address] 04 May, 2013 [facility] [address] [id number] [address] [place] [address], [place] [address] Apr, [facility] [address] [id number] [address] [place] [address], [place] [address] Apr, [facility] [address] [id number] [address] [place] [address], [place] [address] Mar, [facility] [address] [id number] [address] [place] [address], [place] [address] Mar, [facility] [address] [id number] [address] [place] [address], [place] [address] Feb, [facility] [address] [id number] [address] [place] [address], [place] [address] January, [facility] [address] [id number] [address] [place] [address], [place] [address] January, [facility] [address] [id number] [address] [place] [address], [place] [address] 14 Jan, 2013 [facility] [address] [id number] [address] [place] [address], [place] [address] January, [facility] [address] [id number] [address] [place] [address], [place] [address] January, [facility] [address] [id number] [address] [place] [address], [place] [address] 29 Dec, 2012 [facility] [address] [id number] [address] [place] [address], [place] [address] Dec, [facility] [address] [id number] [address] [place] [address], [place] [address] Dec, [facility] [address] [id number] [address] [place] [address], [place] [address] Nov, [facility] [address] [id number] [address] [place] [address], [place] [address] Oct, [facility] [address] [id number] [address] [place] [address], [place] [address] 18 Oct, 2012 [facility] [address] [id number] [address] [place] [address], [place] [address] 15 Oct, 2012 [facility] [address] [id number] [address] [place] [address], [place] [address] Sep, [facility] [address] [id number] [address] [place] [address], [place] [address] 16 Sep, 2012 [facility] [address] [id number] [address] [place] [address], [place] [address] 14 Aug, 2012 [facility] [address] [id number] [address] [place] [address], [place] [address] 14 Aug, 2012 [facility] [address] [id number] [address] [place] [address], [place] [address] 11 Aug, 2012 [facility] [address] [id number] [address] [place] [address], [place] [address] Aug, [facility] [address] [id number] [address] [place] [address], [place] [address] Jul, [facility] [address] [id number] [address] [place] [address], [place] [address] Jul, [facility] [address] [id number] [address] [place] [address], [place] [address] Jul, [facility] [address] [id number] [address] [place] [address], [place] [address] Jul, [facility] [address] [id number] [address] [place] [address], [place] [address] Jul, [facility] [address] [id number] [address] [place] [address], [place] [address] Jun, [facility] [address] [id number] [address] [place] [address], [place] [address] Jun, [facility] [address] [id number] [address] [place] [address], [place] [address] Jun, [facility] [address] [id number] [address] [place] [address], [place] [address] Jun, [facility] [address] [id number] [address] [place] [address], [place] [address] May, [facility] [address] [id number] [address] [place] [address], [place] [address] Apr, [facility] [address] [id number] [address] [place] [address], [place] [address] Apr, [facility] [address] [id number] [address] [place] [address], [place] [address] Apr, [facility] [address] [id number] [address] [place] [address], [place] [address] Apr, [facility] [address] [id number] [address] [place] [address], [place] [address] January, [facility] [address] [id number] [address] [place] [address], [place] [address] January, [facility] [address] [id number] [address] [place] [address], [place] [address] Dec, [facility] [address] [id number] [address] [place] [address], [place] [address] Dec, [facility] [address] [id number] [address] [place] [address], [place] [address] Nov, [facility] [address] [id number] [address] [place] [address], [place] [address] Nov, [facility] [address] [id number] [address] [place] [address], [place] [address] Nov, [facility] [address] [id number] [address] [place] [address], [place] [address] Nov, [facility] [address] [id number] [address] [place] [address], [place] [address] Oct, [facility] [address] [id number] [address] [place] [address], [place] [address] Oct, [facility] [address] [id number] [address] [place] [address], [place] [address] Oct, [facility] [address] [id number] [address] [place] [address], [place] [address] Sep, [facility] [address] [id number] [address] [place] [address], [place] [address] Sep, [facility] [address] [id number] [address] [place] [address], [place] [address] Aug, [facility] [address] [id number] [address] [place] [address], [place] [address] Aug, [facility] [address] [id number] [address] [place] [address], [place] [address] Jul, [facility] [address] [id number] [address] [place] [address], [place] [address] Jul, [facility] [address] [id number] [address] [place] [address], [place] [address] Jul, [facility] [address] [id number] [address] [place] [address], [place] [address] Jun, [facility] [address] [id number] [address] [place] [address], [place] [address] Jun, [facility] [address] [id number] [address] [place] [address], [place] [address] Jun, [facility] [address] [id number] [address] [place] [address], [place] [address] Jun, [facility] [address] [id number] [address] [place] [address], [place] [address] Jun, [facility] [address] [id number] [address] [place] [address], [place] [address] Jun, [facility] [address] [id number] [address] [place] [address], [place] [address] Aug, [facility] [address] [id number] [address] [place] [address], [place] [address] Aug, [facility] [address] [id number] [address] [place] [address], [place] [address] Aug, [facility] [address] [id number] [address] [place] [address], [place] [address] Jul, [facility] [address] [id number] [address] [place] [address], [place] [address] Jul, [facility] [address] [id number] [address] [place] [address], [place] [address] Jul, [facility] [address] [id number] [address] [place] [address], [place] [address] 15 Jul, 2010 [facility] [address] [id number] [address] [place] [address], [place] [address] 15 Jul, 2010 [facility] [address] [id number] [address] [place] [id number] 08 Jul, 2010 [facility] [address] [id number] [address] [place] [address] Jun, [facility] [address] [id number] [address] [place] [address] Apr, [facility] [address] [id number] [address] [place] [address] Feb, [facility] [address] [id number] [address] [place] [id number] Oct, [facility] [address] [id number] [address] [place] [address] Sep, [facility] [address] [id number] [address] [place] [address] Aug, [facility] [address] [id number] [address] [place] [id number] Aug, [facility] [address] [id number] [address] [place] [address] Aug, [facility] [address] [id number] [address] [place] [address] Jul, [facility] [address] [id number] [address] [place] [address] Jun, IMMUNIZATIONS No Known Immunizations SOCIAL HISTORY Never Assessed REASON FOR VISIT [facility] [place] CARE VITAL SIGNS MEDICATIONS Unknown [...]
--- OUTSIDE RECORDS SUMMARY | 2020-02-22 17:27 | XMS REPORT ---
Author Author Marion Alexander Doctor Organization [facility] Address Unknown Phone Unavailable Care Team Providers [facility] Attendant Name Role Phone Migration, Doctor Unavailable Unavailable PROBLEMS Type Condition ICD9-CM Code JMG22-NH Code Onset Dates Condition S tatus SNOMED Code Problem Migraine without aura and without status migrain osus, not intractable G43.009 Active 275061373 Problem Acquired hypothyroidism E03.9 Active 321069768 Problem Cervical disc disease M50.90 Active 109425940 Problem Dyspepsia R10.13 Active [id number] ALLERGIES No Information ENCOUNTERS Encounter Location Date Diagnosis [place] [address] [address] Dec, Cervical disc disease M50.90 [place] [address] [address] Dec, Cervical disc disease M50.90 [place] [address] [address] Dec, Cervical disc disease M50.90 ; Acquired hypothyroidism E03.9 and Migraine without aura and without status migrainosus, not intractable G43.009 [id number] [place] [id number] [place] [address] Nov, [place] [address] [address] Nov, Cervical disc disease M50.90 [place] [address] [address] Oct, Cervical disc disease M50.90 [facility] [address] [place] [id number] [address] [place] [address] Sep, [place] [address] [address] Sep, Cervical disc disease M50.90 [facility] [address] [id number] [address] [place] [address] Aug, Cervical disc disease M50.90 [facility] [address] [id number] [address] [place] [address] Jul, Cervical disc disease M50.90 [facility] [address] [id number] [address] [place] [address] Jun, Acute recurrent pansinusitis J01.41 and Cervical disc disease M50.90 [facility] [address] [id number] [address] [place] [address] Jun, Cervical disc disease M50.90 [facility] [address] [id number] [address] [place] [address] May, Cervical disc disease M50.90 [facility] [address] [id number] [address] [place] [address] Apr, Cervical disc disease M50.90 [facility] [address] [id number] [address] [place] [address] Mar, Cervical disc disease M50.90 [facility] [address] [id number] [address] [place] [address] Mar, [facility] [address] [id number] [address] [place] [address] Mar, Cervical disc disease M50.90 [facility] [address] [id number] [address] [place] [address] Feb, Cervical disc disease M50.90 [facility] [address] [id number] [address] [place] [address] January, Cervical disc disease M50.90 [facility] [address] [id number] [address] [place] [address] Dec, [facility] [address] [id number] [address] [place] [address] Dec, Cervical disc disease M50.90 [facility] [address] [facility] [id number] [address] [place] [address] Nov, Cervical disc disease M50.90 [facility] [address] [facility] [id number] [address] [place] [address] Nov, Cervical disc disease M50.90 [facility] [address] [facility] [id number] [address] [place] [address] Oct, Cervical disc disease M50.90 [facility] [address] [facility] [id number] [address] [place] [address] Oct, Cervical disc disease M50.90 and Acute non-recurrent maxillary sinusitis J01.00 [place] [address] [facility] [id number] [address] [place] [address] Sep, Cervical disc disease M50.90 [facility] [address] [facility] [id number] [address] [place] [address] Sep, [facility] [address] [facility] [id number] [address] [place] [address] Sep, Fatigue, unspecified type R5 3.83 and Cough R05 [place] [address] [facility] [id number] [address] [place] [address] Aug, Cervical disc disease M50.90 [facility] [address] [place] [id number] [address] [place] [address] Aug, Sore throat J02.9 ; Canker s ore K12.0 and History of anemia Z86.2 [place] [address] [facility] [id number] [address] [place] [address] Jul, Cervical disc disease M50.90 [facility] [address] [facility] [id number] [address] [place] [address] 24 Jun, 2017 Cervical disc disease M50.90 [facility] [address] [place] [id number] [address] [place] [address] Jun, Cervical disc disease M50.90 [facility] [address] [id number] [address] [place] [address] May, Cervical disc disease M50.90 [facility] [address] [id number] [address] [place] [address] Apr, Cervical disc disease M50.90 [facility] [address] [id number] [address] [place] [address] Apr, [facility] [address] [id number] [address] [place] [address] Feb, Cervical disc disease M50.90 [facility] [address] [id number] [address] [place] [address] January, Cervical disc disease M50.90 [facility] [address] [id number] [address] [place] [address] Nov, [facility] [address] [id number] [address] [place] [address] Nov, Cervical disc disease M50.90 [facility] [address] [facility] [id number] [address] [place] [address] Nov, Acute cystitis with hematuri a N30.01 and Dysuria R30.0 [facility] [address] [id number] [address] [place] [address] Oct, Cervical disc disease M50.90 and Acute non-recurrent frontal sinusitis J01.10 [facility] [address] [id number] [address] [place] [address] Sep, Neck pain M54.2 [facility] [address] [id number] [address] [place] [address] Sep, [facility] [address] [id number] [address] [place] [address] Aug, Cervical disc disease M50.90 [facility] [address] [id number] [address] [place] [address] Jul, [facility] [address] [id number] [address] [place] [address] Jun, [facility] [address] [id number] [address] [place] [address] May, [facility] [address] [id number] [address] [place] [address] May, Screening for diabetes emilio tus Z13.1 ; Chronic fatigue R53.82 and Edema, unspecified type R60.9 [facility] [address] [id number] [address] [place] [address] Apr, Neck pain M54.2 [facility] [address] [id number] [address] [place] [address] Mar, [facility] [address] [id number] [address] [place] [address] Mar, Neck pain M54.2 [facility] [address] [id number] [address] [place] [address] Feb, Cervical disc disease M50.90 [facility] [address] [id number] [address] [place] [address] Feb, Cervical disc disease M50.90 [facility] [address] [id number] [address] [place] [address] January, [facility] [address] [id number] [address] [place] [address] January, [facility] [address] [id number] [address] [place] [address] January, Cervical disc disease M50.90 [facility] [address] [id number] [address] [place] [address] January, [facility] [address] [id number] [address] [place] [address] January, [facility] [address] [id number] [address] [place] [address] Dec, Cervical disc disease M50.90 [facility] [address] [id number] [address] [place] [address] Nov, Cervical disc disease M50.90 [facility] [address] [id number] [address] [place] [address] Oct, Cervical disc disease M50.90 [facility] [address] [id number] [address] [place] [address] Sep, Cervical disc disease M50.90 [facility] [address] [id number] [address] [place] [id number] Aug, Dental caries K02.9 and Enco unter for dental examination Z01.20 [facility] [address] [id number] [address] [place] [address] Aug, [facility] [address] [id number] [address] [place] [address] Aug, [facility] [address] [id number] [address] [place] [id number] Aug, Encounter for dental examina tion Z01.20 [facility] [address] [id number] [address] [place] [address] Jul, [facility] [address] [id number] [address] [place] [address] Jun, Sinusitis J32.9 and Cervical disc disease M50.90 [facility] [address] [id number] [address] [place] [address] Jun, [facility] [address] [id number] [address] [place] [address] 24 May, 2015 [facility] [address] [id number] [address] [place] [address] 23 May, 2015 [facility] [address] [id number] [address] [place] [address] May, [facility] [address] [id number] [address] [place] [address] May, [facility] [address] [id number] [address] [place] [address] Apr, Cervical spondylosis without myelopathy 721.0 [facility] [address] [id number] [address] [place] [address] Mar, [facility] [address] [id number] [address] [place] [address] January, Cervical spondylosis without myelopathy 721.0 [facility] [address] [id number] [address] [place] [phone] Dec, [facility] [address] [id number] [address] [place] [address] Dec, [facility] [address] [id number] [address] [place] [address] Dec, [facility] [address] [id number] [address] [place] [phone] Nov, [facility] [address] [id number] [address] [place] [address] Nov, [facility] [address] [id number] [address] [place] [phone] Oct, [facility] [address] [id number] [address] [place] [address] Oct, [facility] [address] [id number] [address] [place] [address] Oct, [facility] [address] [id number] [address] [place] [phone] Oct, [facility] [address] [id number] [address] [place] [address] Oct, [facility] [address] [id number] [address] [place] [address], [place] [address] 04 Oct, 2014 [facility] [address] [id number] [address] [place] [address], [place] [address] Oct, 2014 [facility] [address] [id number] [address] [place] [address], [place] [address] Oct, 2014 [facility] [address] [id number] [address] [place] [address], [place] [address] Oct, [facility] [address] [id number] [address] [place] [address], [place] [address] Oct, [facility] [address] [id number] [address] [place] [address], [place] [address] Sep, [facility] [address] [id number] [address] [place] [address], [place] [address] Sep, [facility] [address] [id number] [address] [place] [address], [place] [address] Sep, [facility] [address] [id number] [address] [place] [address], [place] [address] Sep, [facility] [address] [id number] [address] [place] [address], [place] [address] Sep, [facility] [address] [id number] [address] [place] [address], [place] [address] Sep, [facility] [address] [id number] [address] [place] [address], [place] [address] Sep, [facility] [address] [id number] [address] [place] [address], [place] [address] Sep, [facility] [address] [id number] [address] [place] [address], [place] [address] Sep, [facility] [address] [id number] [address] [place] [address], [place] [address] Aug, [facility] [address] [id number] [address] [place] [address], [place] [address] Aug, [facility] [address] [id number] [address] [place] [address], [place] [address] Aug, [facility] [address] [id number] [address] [place] [address], [place] [address] Aug, [facility] [address] [id number] [address] [place] [address], [place] [address] Jul, [facility] [address] [id number] [address] [place] [address], [place] [address] Jul, [facility] [address] [id number] [address] [place] [address], [place] [address] Jul, [facility] [address] [id number] [address] [place] [address], [place] [address] Jul, [facility] [address] [id number] [address] [place] [address], [place] [address] Jul, [facility] [address] [id number] [address] [place] [address], [place] [address] Jul, [facility] [address] [id number] [address] [place] [address], [place] [address] Jul, [facility] [address] [id number] [address] [place] [address], [place] [address] Jul, [facility] [address] [id number] [address] [place] [address], [place] [address] Jun, [facility] [address] [id number] [address] [place] [address], [place] [address] Jun, [facility] [address] [id number] [address] [place] [address], [place] [address] Jun, [facility] [address] [id number] [address] [place] [address], [place] [address] Jun, [facility] [address] [id number] [address] [place] [address], [place] [address] 16 Jun, 2014 [facility] [address] [id number] [address] [place] [address] [place] [address] 15 Jun, 2014 [facility] [address] [id number] [address] [place] [address], [place] [address] 15 Jun, 2014 [facility] [address] [id number] [address] [place] [address], [place] [address] 14 Jun, 2014 [facility] [address] [id number] [address] [place] [address], [place] [address] 14 Jun, 2014 [facility] [address] [id number] [address] [place] [address], [place] [address] 11 Jun, 2014 [facility] [address] [id number] [address] [place] [address], [place] [address] 11 Jun, 2014 [facility] [address] [id number] [address] [place] [address], [place] [address] 24 May, 2014 [facility] [address] [id number] [address] [place] [address], [place] [address] 24 May, 2013 [facility] [address] [id number] [address] [place] [address], [place] [address] 08 May, 2014 [facility] [address] [id number] [address] [place] [address], [place] [address] 02 May, 2014 [facility] [address] [id number] [address] [place] [address], [place] [address] 02 May, 2014 [facility] [address] [id number] [address] [place] [address], [place] [address] Apr, [facility] [address] [id number] [address] [place] [address], [place] [address] Apr, [facility] [address] [id number] [address] [place] [address], [place] [address] Apr, [facility] [address] [id number] [address] [place] [address], [place] [address] Apr, [facility] [address] [id number] [address] [place] [address], [place] [address] Apr, [facility] [address] [id number] [address] [place] [address], [place] [address] Apr, [facility] [address] [id number] [facility] [place] [address] Mar, [facility] [address] [id number] [address] [place] [address], [place] [address] Mar, [facility] [address] [id number] [address] [place] [address], [place] [address] Mar, [facility] [address] [id number] [address] [place] [address], [place] [address] Mar, [facility] [address] [id number] [address] [place] [address], [place] [address] Mar, [facility] [address] [id number] [address] [place] [address], [place] [address] Mar, [facility] [address] [id number] [address] [place] [address], [place] [address] Feb, [facility] [address] [id number] [address] [place] [address], [place] [address] Feb, [facility] [address] [id number] [address] [place] [address], [place] [address] Feb, [facility] [address] [id number] [address] [place] [address], [place] [address] Feb, [facility] [address] [id number] [address] [place] [address], [place] [address] Feb, [facility] [address] [id number] [address] [place] [address], [place] [address] Feb, [facility] [address] [id number] [address] [place] [address], [place] [address] Feb, [facility] [address] [id number] [address] [place] [address], [place] [address] Feb, [facility] [address] [id number] [address] [place] [address], [place] [address] January, [facility] [address] [id number] [address] [place] [address], [place] [address] January, [facility] [address] [id number] [address] [place] [address], [place] [address] January, [facility] [address] [id number] [address] [place] [address], [place] [address] January, [facility] [address] [id number] [address] [place] [address], [place] [address] January, [facility] [address] [id number] [address] [place] [address], [place] [address] January, [facility] [address] [id number] [address] [place] [address], [place] [address] January, [facility] [address] [id number] [address] [place] [address], [place] [address] January, [facility] [address] [id number] [address] [place] [address], [place] [address] Dec, [facility] [address] [id number] [address] [place] [address], [place] [address] Dec, [facility] [address] [id number] [address] [place] [address], [place] [address] Dec, [facility] [address] [id number] [address] [place] [address], [place] [address] Dec, [facility] [address] [id number] [address] [place] [address], [place] [address] Dec, [facility] [address] [id number] [address] [place] [address], [place] [address] Dec, [facility] [address] [id number] [address] [place] [address], [place] [address] Nov, [facility] [address] [id number] [address] [place] [address], [place] [address] Nov, [facility] [address] [id number] [address] [place] [address], [place] [address] 27 Nov, 2013 [facility] [address] [id number] [address] [place] [address], [place] [address] Nov, [facility] [address] [id number] [address] [place] [address], [place] [address] Nov, [facility] [address] [id number] [address] [place] [address], [place] [address] Nov, [facility] [address] [id number] [address] [place] [address], [place] [address] Nov, [facility] [address] [id number] [address] [place] [address], [place] [address] Nov, [facility] [address] [id number] [address] [place] [address], [place] [address] Oct, [facility] [address] [id number] [address] [place] [address], [place] [address] Oct, [facility] [address] [id number] [address] [place] [address], [place] [address] Sep, [facility] [address] [id number] [address] [place] [address], [place] [address] Sep, [facility] [address] [id number] [address] [place] [address], [place] [address] Sep, [facility] [address] [id number] [address] [place] [address], [place] [address] Sep, [facility] [address] [id number] [address] [place] [address], [place] [address] Aug, [facility] [address] [id number] [address] [place] [address], [place] [address] Aug, [facility] [address] [id number] [address] [place] [address], [place] [address] Aug, [facility] [address] [id number] [address] [place] [address], [place] [address] Aug, [facility] [address] [id number] [address] [place] [address], [place] [address] Jul, [facility] [address] [id number] [address] [place] [address] Jul, [facility] [address] [id number] [address] [place] [address] Jul, [facility] [address] [id number] [address] [place] [address] Jul, [facility] [address] [id number] [address] [place] [address], [place] [address] Jul, [facility] [address] [address] [id number] [address] [place] [phone] Jul, [facility] [address] [id number] [address] [place] [address] Jul, [facility] [address] [id number] [address] [place] [address] Jul, [facility] [address] [id number] [address] [place] [address] Jul, [facility] [address] [id number] [address] [place] [address] Jul, [facility] [address] [id number] [address] [place] [phone] Jul, [facility] [address] [id number] [address] [place] [address] Jul, [facility] [address] [id number] [address] [place] [address] Jun, [facility] [address] [id number] [address] [place] [phone] Jun, [facility] [address] [id number] [address] [place] [address] Jun, [facility] [address] [id number] [address] [place] [address] Jun, [facility] [address] [id number] [address] [place] [address], [place] [address] 16 Jun, 2013 [facility] [address] [id number] [address] [place] [address], [place] [address] 14 Jun, 2013 [facility] [address] [id number] [address] [place] [address], [place] [address] 14 Jun, 2013 [facility] [address] [id number] [address] [place] [address], [place] [address] Jun, [facility] [address] [id number] [address] [place] [address], [place] [address] 15 May, 2013 [facility] [address] [id number] [address] [place] [address], [place] [address] 05 May, 2013 [facility] [address] [id number] [address] [place] [address], [place] [address] May, [facility] [address] [id number] [address] [place] [address], [place] [address] Apr, [facility] [address] [id number] [address] [place] [address], [place] [address] Apr, [facility] [address] [id number] [address] [place] [address], [place] [address] Mar, [facility] [address] [id number] [address] [place] [address], [place] [address] Mar, [facility] [address] [id number] [address] [place] [address], [place] [address] Feb, [facility] [address] [id number] [address] [place] [address], [place] [address] January, [facility] [address] [id number] [address] [place] [address], [place] [address] January, [facility] [address] [id number] [address] [place] [address], [place] [address] January, [facility] [address] [id number] [address] [place] [address], [place] [address] January, [facility] [address] [id number] [address] [place] [address], [place] [address] January, [facility] [address] [id number] [address] [place] [address], [place] [address] 29 Dec, 2012 [facility] [address] [id number] [address] [place] [address], [place] [address] Dec, [facility] [address] [id number] [address] [place] [address], [place] [address] Dec, [facility] [address] [id number] [address] [place] [address], [place] [address] Nov, [facility] [address] [id number] [address] [place] [address], [place] [address] 27 Oct, 2012 [facility] [address] [id number] [address] [place] [address], [place] [address] 18 Oct, 2012 [facility] [address] [id number] [address] [place] [address], [place] [address] 15 Oct, 2012 [facility] [address] [id number] [address] [place] [address], [place] [address] Sep, [facility] [address] [id number] [address] [place] [address], [place] [address] 16 Sep, 2012 [facility] [address] [id number] [address] [place] [address], [place] [address] 14 Aug, 2012 [facility] [address] [id number] [address] [place] [address], [place] [address] 14 Aug, 2012 [facility] [address] [id number] [address] [place] [address], [place] [address] Aug, [facility] [address] [id number] [address] [place] [address], [place] [address] 11 Aug, 2012 [facility] [address] [id number] [address] [place] [address], [place] [address] Jul, [facility] [address] [id number] [address] [place] [address], [place] [address] Jul, [facility] [address] [id number] [address] [place] [address], [place] [address] Jul, [facility] [address] [id number] [address] [place] [address], [place] [address] Jul, [facility] [address] [id number] [address] [place] [address], [place] [address] Jul, [facility] [address] [id number] [address] [place] [address], [place] [address] Jun, [facility] [address] [id number] [address] [place] [address], [place] [address] 15 Jun, 2012 [facility] [address] [id number] [address] [place] [address], [place] [address] Jun, [facility] [address] [id number] [address] [place] [address], [place] [address] Jun, [facility] [address] [id number] [address] [place] [address], [place] [address] May, [facility] [address] [id number] [address] [place] [address], [place] [address] Apr, [facility] [address] [id number] [address] [place] [address], [place] [address] Apr, [facility] [address] [id number] [address] [place] [address], [place] [address] Apr, [facility] [address] [id number] [address] [place] [address], [place] [address] Apr, [facility] [address] [id number] [address] [place] [address], [place] [address] January, [facility] [address] [id number] [address] [place] [address], [place] [address] January, [facility] [address] [id number] [address] [place] [address], [place] [address] Dec, [facility] [address] [id number] [address] [place] [address], [place] [address] Dec, [facility] [address] [id number] [address] [place] [address], [place] [address] Nov, [facility] [address] [id number] [address] [place] [address], [place] [address] Nov, [facility] [address] [id number] [address] [place] [address], [place] [address] Nov, [facility] [address] [id number] [address] [place] [address], [place] [address] Nov, [facility] [address] [id number] [address] [place] [address], [place] [address] Oct, [facility] [address] [id number] [address] [place] [address], [place] [address] Oct, [facility] [address] [id number] [address] [place] [address], [place] [address] Oct, [facility] [address] [id number] [address] [place] [address], [place] [address] Sep, [facility] [address] [id number] [address] [place] [address], [place] [address] Sep, [facility] [address] [id number] [address] [place] [address], [place] [address] Aug, [facility] [address] [id number] [address] [place] [address], [place] [address] Aug, [facility] [address] [id number] [address] [place] [address], [place] [address] Jul, [facility] [address] [id number] [address] [place] [address], [place] [address] Jul, [facility] [address] [id number] [address] [place] [address], [place] [address] Jul, [facility] [address] [id number] [address] [place] [address], [place] [address] Jun, [facility] [address] [id number] [address] [place] [address], [place] [address] 24 Jun, 2011 [facility] [address] [id number] [address] [place] [address], [place] [address] Jun, [facility] [address] [id number] [address] [place] [address], [place] [address] Jun, [facility] [address] [id number] [address] [place] [address], [place] [address] Jun, [facility] [address] [id number] [address] [place] [address], [place] [address] Jun, [facility] [address] [id number] [address] [place] [address], [place] [address] Aug, [facility] [address] [id number] [address] [place] [address], [place] [address] Aug, [facility] [address] [id number] [address] [place] [address], [place] [address] Aug, [facility] [address] [id number] [address] [place] [address], [place] [address] Jul, [facility] [address] [id number] [address] [place] [address], [place] [address] Jul, [facility] [address] [id number] [address] [place] [address], [place] [address] Jul, [facility] [address] [id number] [address] [place] [address], [place] [address] 15 Jul, 2010 [facility] [address] [id number] [address] [place] [address], [place] [address] Jul, [facility] [address] [id number] [address] [place] [address], [place] [address] 08 Jul, 2010 [facility] [address] [id number] [address] [place] [address] Jun, [facility] [address] [id number] [address] [place] [address] Apr, [facility] [address] [id number] [address] [place] [address] Feb, [facility] [address] [id number] [address] [place] [address] Oct, [facility] [address] [id number] [address] [place] [address] Sep, [facility] [address] [id number] [address] [place] [address] Aug, [facility] [address] [id number] [address] [place] [address] Aug, [facility] [address] [id number] [address] [place] [address] Aug, [facility] [address] [id number] [address] [place] [address] Jul, [facility] [address] [id number] [address] [place] [address] Jun, IMMUNIZATIONS No Known Immunizations SOCIAL HISTORY Never Assessed REASON FOR VISIT [facility] PLAN OF CARE [...]
--- OUTSIDE RECORDS SUMMARY | 2020-02-22 17:27 | XMS REPORT ---
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 Name Role Phone Migration, Doctor Unavailable Unavailable PROBLEMS Type Condition ICD9-CM Code AZR23-DM Code Onset Dates Condition S tatus SNOMED Code Problem Migraine without aura and without status migrain osus, not intractable G43.009 Active 041610869 Problem Acquired hypothyroidism E03.9 Active 559554340 Problem Cervical disc disease M50.90 Active 485776426 Problem Dyspepsia R10.13 Active [id number] ALLERGIES No Information ENCOUNTERS Encounter Location Date Diagnosis [place] [address] [address] [place] [id number] [address] [place] [phone] Dec, Cervical disc disease M50.90 [place] [address] [address] [facility] [id number] [address] [place] [id number] Dec, Cervical disc disease M50.90 [place] [address] [facility] [place] [id number] [address] [place] [phone] Dec, Cervical disc disease M50.90 [place] [address] [facility] [place] [id number] [address] [place] [address] Dec, Cervical disc disease M50.90 ; Acquired hypothyroidism E03.9 and Migraine without aura and without status migrainosus, not intractable G43.009 [facility] [place] [address] [facility] [place] [id number] [address] [place] [phone] Nov, [place] [address] [address] [facility] [place] [id number] [address] [place] [phone] Nov, Cervical disc disease M50.90 [place] [address] [facility] [place] [id number] [address] [place] [phone] Oct, Cervical disc disease M50.90 [place] [address] [facility] [place] [id number] [address] [place] [phone] Sep, [facility] [place] [address] [id number] [address] [place] [phone] Sep, Cervical disc disease M50.90 [facility] [place] [address] [id number] [address] [place] [phone] Aug, Cervical disc disease M50.90 [facility] [place] [address] [id number] [address] [place] [address] Jul, Cervical disc disease M50.90 [facility] [place] [address] [id number] [address] [place] [phone] Jun, Acute recurrent pansinusitis J01.41 and Cervical disc disease M50.90 [facility] [place] [address] [id number] [address] [place] [phone] Jun, Cervical disc disease M50.90 [facility] [place] [address] [id number] [address] [place] [phone] May, Cervical disc disease M50.90 [facility] [place] [address] [id number] [address] [place] [phone] Apr, Cervical disc disease M50.90 [facility] [place] [address] [id number] [address] [place] [phone] Mar, Cervical disc disease M50.90 [facility] [place] [address] [id number] [address] [place] [phone] Mar, [facility] [place] [address] [id number] [address] [place] [phone] Mar, Cervical disc disease M50.90 [facility] [place] [address] [id number] [address] [place] [phone] Feb, Cervical disc disease M50.90 [facility] [place] [address] [id number] [address] [place] [phone] January, Cervical disc disease M50.90 [facility] [place] [address] [id number] [address] [place] [phone] Dec, [facility] [place] [address] [facility] [place] [id number] [address] [place] [phone] Dec, Cervical disc disease M50.90 [facility] [place] [address] [place] [id number] [address] [place] [phone] Nov, Cervical disc disease M50.90 [facility] [place] [address] [address] Nov, Cervical disc disease M50.90 [facility] [place] [address] [place] [id number] [place] [id number] 15 Oct, 2017 Cervical disc disease M50.90 [facility] [place] [address] [place] [id number] [place] [phone] 12 Oct, 2017 Cervical disc disease M50.90 and Acute non-recurrent maxillary sinusitis J01.00 [place] [address] [address] Sep, Cervical disc disease M50.90 [facility] [address] [address] Sep, [facility] [address] [address] Sep, Fatigue, unspecified type R5 3.83 and Cough R05 [facility] [place] [address] [address] Aug, Cervical disc disease M50.90 [facility] [address] [place] [id number] [address] [place] [phone] 16 Aug, 2017 Sore throat J02.9 ; Canker s ore K12.0 and History of anemia Z86.2 [facility] [place] [address] [place] [id number] [address] [place] [address] Jul, Cervical disc disease M50.90 [facility] [place] [address] [address] Jun, Cervical disc disease M50.90 [facility] [place] [address] [id number] [address] [place] [address] Jun, Cervical disc disease M50.90 [facility] [place] [address] [id number] [address] [place] [id number] May, Cervical disc disease M50.90 [facility] [place] [address] [id number] [address] [place] [address] Apr, Cervical disc disease M50.90 [facility] [place] [address] [id number] [address] [place] [id number] Apr, [facility] [place] [address] [id number] [address] [place] [phone] Feb, Cervical disc disease M50.90 [facility] [place] [address] [id number] [address] [place] [id number] January, Cervical disc disease M50.90 [facility] [place] [address] [id number] [address] [place] [phone] Nov, [facility] [place] [address] [id number] [address] [place] [phone] Nov, Cervical disc disease M50.90 [facility] [address] [id number] [address] [place] [phone] Nov, Acute cystitis with hematuri a N30.01 and Dysuria R30.0 [facility] [place] [address] [id number] [address] [place] [phone] Oct, Cervical disc disease M50.90 and Acute non-recurrent frontal sinusitis J01.10 [facility] [place] [address] [id number] [address] [place] [phone] Sep, Neck pain M54.2 [facility] [place] [address] [facility] [place] [id number] [address] [place] [phone] Sep, [facility] [place] [address] [id number] [address] [place] [address] Aug, Cervical disc disease M50.90 [facility] [place] [address] [facility] [place] [id number] [address] [place] [phone] Jul, [facility] [place] [address] [facility] [place] [id number] [address] [place] [phone] Jun, [facility] [place] [address] [facility] [place] [id number] [address] [place] [phone] May, [facility] [place] [address] [facility] [place] [id number] [address] [place] [phone] May, Screening for diabetes emilio tunakia Z13.1 ; Chronic fatigue R53.82 and Edema, unspecified type R60.9 [facility] [place] [address] [facility] [place] [id number] [address] [place] [phone] Apr, Neck pain M54.2 [facility] [place] [address] [facility] [place] [id number] [address] [place] [phone] Mar, [facility] [place] [address] [facility] [place] [id number] [address] [place] [phone] Mar, Neck pain M54.2 [facility] [place] [address] [facility] [place] [id number] [address] [place] [id number] Feb, Cervical disc disease M50.90 [facility] [place] [address] [facility] [place] [id number] [address] [place] [phone] Feb, Cervical disc disease M50.90 [facility] [place] [address] [facility] [place] [id number] [address] [place] [phone] January, [facility] [place] [address] [facility] [place] [id number] [address] [place] [phone] January, [facility] [place] [address] [facility] [place] [id number] [address] [place] [phone] January, Cervical disc disease M50.90 [facility] [place] [address] [facility] [place] [id number] [address] [place] [phone] January, [facility] [place] [address] [id number] [address] [place] [id number] January, [facility] [place] [address] [id number] [address] [place] [phone] Dec, Cervical disc disease M50.90 [facility] [place] [address] [id number] [address] [place] [phone] Nov, Cervical disc disease M50.90 [facility] [place] [address] [id number] [address] [place] [phone] Oct, Cervical disc disease M50.90 [facility] [place] [address] [id number] [address] [place] [phone] Sep, Cervical disc disease M50.90 [facility] [address] [id number] [address] [place] [id number] Aug, Dental caries K02.9 and Enco unter for dental examination Z01.20 [facility] [place] [address] [id number] [address] [place] [phone] Aug, [facility] [place] [address] [id number] [address] [place] [phone] Aug, [facility] [address] [id number] [address] [place] [address] [id number] Aug, Encounter for dental examina tion Z01.20 [facility] [place] [address] [id number] [address] [place] [phone] Jul, [facility] [place] [address] [id number] [address] [place] [id number] Jun, Sinusitis J32.9 and Cervical disc disease M50.90 [facility] [place] [address] [id number] [address] [place] [phone] Jun, [facility] [place] [address] [id number] [address] [place] [phone] 24 May, 2015 [facility] [place] [address] [id number] [address] [place] [phone] May, [facility] [address] [id number] [address] [place] [phone] May, [facility] [address] [id number] [address] [place] [phone] May, [facility] [address] [id number] [address] [place] [phone] Apr, Cervical spondylosis without myelopathy 721.0 [facility] [address] [id number] [address] [place] [phone] Mar, [facility] [address] [id number] [address] [place] [phone] January, Cervical spondylosis without myelopathy 721.0 [facility] [address] [id number] [address] [place] [phone] Dec, [facility] [address] [id number] [address] [place] [phone] Dec, [facility] [address] [id number] [address] [place] [phone] Dec, [facility] [address] [id number] [address] [place] [phone] Nov, [facility] [address] [id number] [address] [place] [phone] Nov, [facility] [address] [id number] [address] [place] [phone] Oct, [facility] [address] [id number] [address] [place] [phone] Oct, [facility] [address] [id number] [address] [place] [phone] Oct, [facility] [address] [id number] [address] [place] [phone] Oct, [facility] [address] [id number] [address] [place] [address], [place] [address] Oct, 2014 [facility] [address] [id number] [address] [place] [address], [place] [address] Oct, 2014 [facility] [address] [id number] [address] [place] [address], [place] [address] Oct, 2014 [facility] [address] [id number] [address] [place] [address], [place] [address] Oct, 2014 [facility] [address] [id number] [address] [place] [address], [place] [address] Oct, 2014 [facility] [address] [id number] [address] [place] [address], [place] [phone] Oct, [facility] [address] [id number] [address] [place] [address], [place] [phone] Sep, [facility] [address] [id number] [address] [place] [address], [place] [address] Sep, [facility] [address] [id number] [address] [place] [address], [place] [address] Sep, [facility] [address] [id number] [address] [place] [address], [place] [address] Sep, [facility] [address] [id number] [address] [place] [address], [place] [address] Sep, [facility] [address] [id number] [address] [place] [address], [place] [phone] Sep, [facility] [address] [id number] [address] [place] [address], [place] [address] Sep, [facility] [address] [id number] [address] [place] [address], [place] [address] Sep, [facility] [address] [id number] [address] [place] [address], [place] [address] Sep, [facility] [address] [id number] [address] [place] [address], [place] [address] Aug, [facility] [address] [id number] [address] [place] [address], [place] [address] Aug, [facility] [address] [id number] [address] [place] [address], [place] [address] Aug, [facility] [address] [id number] [address] [place] [address], [place] [address] Aug, [facility] [address] [id number] [address] [place] [address], [place] [address] Jul, [facility] [address] [id number] [address] [place] [address], [place] [address] Jul, [facility] [address] [id number] [address] [place] [address], [place] [address] Jul, [facility] [address] [id number] [address] [place] [address], [place] [address] Jul, [facility] [address] [id number] [address] [place] [address], [place] [address] Jul, [facility] [address] [id number] [address] [place] [address], [place] [address] Jul, [facility] [address] [id number] [address] [place] [address], [place] [address] Jul, [facility] [address] [id number] [address] [place] [address], [place] [address] Jul, [facility] [address] [id number] [address] [place] [address], [place] [address] Jun, [facility] [address] [id number] [address] [place] [address], [place] [address] Jun, [facility] [address] [id number] [address] [place] [address], [place] [address] Jun, [facility] [address] [id number] [address] [place] [address], [place] [address] Jun, [facility] [address] [id number] [address] [place] [address], [place] [address] 16 Jun, 2014 [facility] [address] [id number] [address] [place] [address], [place] [address] 15 Jun, 2014 [facility] [address] [id number] [address] [place] [address], [place] [address] 15 Jun, 2014 [facility] [address] [id number] [address] [place] [address], [place] [address] 14 Jun, 2014 [facility] [address] [id number] [address] [place] [address], [place] [address] 14 Jun, 2014 [facility] [address] [id number] [address] [place] [address], [place] [address] 11 Jun, 2014 [facility] [address] [id number] [address] [place] [address], [place] [address] Jun, [facility] [address] [id number] [address] [place] [address], [place] [address] 24 May, 2014 [facility] [address] [id number] [address] [place] [address], [place] [address] 24 May, 2014 [facility] [address] [id number] [address] [place] [address], [place] [address] 08 May, 2014 [facility] [address] [id number] [address] [place] [address], [place] [address] 02 May, 2014 [facility] [address] [id number] [address] [place] [address], [place] [address] May, [facility] [address] [id number] [address] [place] [address], [place] [address] Apr, [facility] [address] [id number] [address] [place] [address], [place] [address] Apr, [facility] [address] [id number] [address] [place] [address], [place] [address] Apr, [facility] [address] [id number] [address] [place] [address], [place] [address] Apr, [facility] [address] [id number] [address] [place] [address], [place] [address] Apr, [facility] [address] [id number] [address] [place] [address], [place] [address] Apr, [facility] [address] [id number] [address] [place] [address], [place] [address] Mar, [facility] [address] [id number] [address] [place] [address], [place] [address] Mar, [facility] [address] [id number] [address] [place] [address], [place] [address] Mar, [facility] [address] [id number] [address] [place] [address], [place] [address] Mar, [facility] [address] [id number] [address] [place] [address], [place] [address] Mar, [facility] [address] [id number] [address] [place] [address], [place] [address] Mar, [facility] [address] [id number] [address] [place] [address], [place] [address] Feb, [facility] [address] [id number] [address] [place] [address], [place] [address] Feb, [facility] [address] [id number] [address] [place] [address], [place] [address] Feb, [facility] [address] [id number] [address] [place] [address], [place] [address] Feb, [facility] [address] [id number] [address] [place] [address], [place] [address] Feb, [facility] [address] [id number] [address] [place] [address], [place] [address] Feb, [facility] [address] [id number] [address] [place] [address], [place] [address] Feb, [facility] [address] [id number] [address] [place] [address], [place] [address] Feb, [facility] [address] [id number] [address] [place] [address], [place] [address] January, [facility] [address] [id number] [address] [place] [address], [place] [address] January, [facility] [address] [id number] [address] [place] [address], [place] [address] January, [facility] [address] [id number] [address] [place] [address], [place] [address] January, [facility] [address] [id number] [address] [place] [address], [place] [address] January, [facility] [address] [id number] [address] [place] [address], [place] [address] January, [facility] [address] [id number] [address] [place] [address], [place] [address] January, [facility] [address] [id number] [address] [place] [address], [place] [address] January, [facility] [address] [id number] [address] [place] [address], [place] [address] Dec, [facility] [address] [id number] [address] [place] [address], [place] [address] Dec, [facility] [address] [id number] [address] [place] [address], [place] [address] Dec, [facility] [facility] [address] [id number] [address] [place] [address], [place] [address] Dec, [facility] [address] [id number] [address] [place] [address], [place] [address] Dec, [facility] [address] [id number] [address] [place] [address], [place] [address] Dec, [facility] [address] [id number] [address] [place] [address], [place] [address] Nov, [facility] [address] [id number] [facility] [place] [address] Nov, [facility] [address] [id number] [facility] [place] [address] Nov, [facility] [address] [id number] [facility] [place] [address] Nov, [facility] [address] [id number] [address] [place] [address], [place] [address] Nov, [facility] [address] [id number] [address] [place] [address], [place] [address] Nov, [facility] [address] [id number] [address] [place] [address], [place] [address] Nov, [facility] [address] [id number] [address] [place] [address], [place] [address] Nov, [facility] [address] [id number] [address] [place] [address], [place] [address] Oct, [facility] [address] [id number] [address] [place] [address], [place] [address] Oct, [facility] [address] [id number] [address] [place] [address], [place] [address] Sep, [facility] [address] [id number] [address] [place] [address], [place] [address] Sep, [facility] [address] [id number] [address] [place] [address], [place] [address] Sep, [facility] [address] [id number] [address] [place] [address], [place] [address] Sep, [facility] [address] [id number] [address] [place] [address], [place] [address] Aug, [facility] [address] [id number] [address] [place] [address], [place] [address] Aug, [facility] [address] [id number] [address] [place] [address], [place] [address] Aug, [facility] [address] [id number] [address] [place] [address], [place] [address] Aug, [facility] [address] [id number] [address] [place] [address], [place] [address] Jul, [facility] [address] [id number] [address] [place] [address], [place] [address] Jul, [facility] [address] [id number] [address] [place] [id number] Jul, [facility] [address] [id number] [address] [place] [address], [place] [address] Jul, [facility] [address] [id number] [address] [place] [id number] Jul, [facility] [address] [id number] [address] [place] [address], [place] [address] Jul, [facility] [address] [id number] [address] [place] [id number] Jul, [facility] [address] [id number] [address] [place] [address], [place] [address] Jul, [facility] [address] [id number] [address] [place] [id number] Jul, [facility] [address] [id number] [address] [place] [phone] Jul, [facility] [address] [id number] [address] [place] [id number] Jul, [facility] [address] [id number] [address] [place] [address], [place] [address] Jul, [facility] [address] [id number] [address] [place] [phone] Jun, [facility] [address] [id number] [address] [place] [phone] Jun, [facility] [address] [id number] [address] [place] [address], [place] [address] Jun, [facility] [address] [id number] [address] [place] [address], [place] [address] 21 Jun, 2013 [facility] [address] [id number] [address] [place] [address], [place] [address] 16 Jun, 2013 [facility] [address] [id number] [address] [place] [address], [place] [address] 14 Jun, 2013 [facility] [address] [id number] [address] [place] [address], [place] [address] 14 Jun, 2013 [facility] [address] [id number] [address] [place] [address], [place] [address] 02 Jun, 2013 [facility] [address] [id number] [address] [place] [address], [place] [address] 15 May, 2013 [facility] [address] [id number] [address] [place] [address], [place] [address] 05 May, 2013 [facility] [address] [id number] [address] [place] [address], [place] [address] 04 May, 2013 [facility] [address] [id number] [address] [place] [address], [place] [address] Apr, [facility] [address] [id number] [address] [place] [address], [place] [address] Apr, [facility] [address] [id number] [address] [place] [address], [place] [address] Mar, [facility] [address] [id number] [address] [place] [address], [place] [address] Mar, [facility] [address] [id number] [address] [place] [address], [place] [address] Feb, [facility] [address] [id number] [address] [place] [address], [place] [address] January, [facility] [address] [id number] [address] [place] [address], [place] [address] January, [facility] [address] [id number] [address] [place] [address], [place] [address] 14 Jan, 2013 [facility] [address] [id number] [address] [place] [address], [place] [address] January, [facility] [address] [id number] [address] [place] [address], [place] [address] January, [facility] [address] [id number] [address] [place] [address], [place] [address] 29 Dec, 2012 [facility] [address] [id number] [address] [place] [address], [place] [address] Dec, [facility] [address] [id number] [address] [place] [address], [place] [address] Dec, [facility] [address] [id number] [address] [place] [address], [place] [address] Nov, [facility] [address] [id number] [address] [place] [address], [place] [address] Oct, [facility] [address] [id number] [address] [place] [address], [place] [address] 18 Oct, 2012 [facility] [address] [id number] [address] [place] [address], [place] [address] 15 Oct, 2012 [facility] [address] [id number] [address] [place] [address], [place] [address] Sep, [facility] [address] [id number] [address] [place] [address], [place] [address] 16 Sep, 2012 [facility] [address] [id number] [address] [place] [address], [place] [address] 14 Aug, 2012 [facility] [address] [id number] [address] [place] [address], [place] [address] 14 Aug, 2012 [facility] [address] [id number] [address] [place] [address], [place] [address] 11 Aug, 2012 [facility] [address] [id number] [address] [place] [address], [place] [address] Aug, [facility] [address] [id number] [address] [place] [address], [place] [address] Jul, [facility] [address] [id number] [address] [place] [address], [place] [address] Jul, [facility] [address] [id number] [address] [place] [address], [place] [address] Jul, [facility] [address] [id number] [address] [place] [address], [place] [address] Jul, [facility] [address] [id number] [address] [place] [address], [place] [address] Jul, [facility] [address] [id number] [address] [place] [address], [place] [address] Jun, [facility] [address] [id number] [address] [place] [address], [place] [address] Jun, [facility] [address] [id number] [address] [place] [address], [place] [address] Jun, [facility] [address] [id number] [address] [place] [address], [place] [address] Jun, [facility] [address] [id number] [address] [place] [address], [place] [address] May, [facility] [address] [id number] [address] [place] [address], [place] [address] Apr, [facility] [address] [id number] [address] [place] [address], [place] [address] Apr, [facility] [address] [id number] [address] [place] [address], [place] [address] Apr, [facility] [address] [id number] [address] [place] [address], [place] [address] Apr, [facility] [address] [id number] [address] [place] [address], [place] [address] January, [facility] [address] [id number] [address] [place] [address], [place] [address] January, [facility] [address] [id number] [address] [place] [address], [place] [address] Dec, [facility] [address] [id number] [address] [place] [address], [place] [address] Dec, [facility] [address] [id number] [address] [place] [address], [place] [address] Nov, [facility] [address] [id number] [address] [place] [address], [place] [address] Nov, [facility] [address] [id number] [address] [place] [address], [place] [address] Nov, [facility] [address] [id number] [address] [place] [address], [place] [address] Nov, [facility] [address] [id number] [address] [place] [address], [place] [address] Oct, [facility] [address] [id number] [address] [place] [address], [place] [address] Oct, [facility] [address] [id number] [address] [place] [address], [place] [address] Oct, [facility] [address] [id number] [address] [place] [address], [place] [address] Sep, [facility] [address] [id number] [address] [place] [address], [place] [address] Sep, [facility] [address] [id number] [address] [place] [address], [place] [address] Aug, [facility] [address] [id number] [address] [place] [address], [place] [address] Aug, [facility] [address] [id number] [address] [place] [address], [place] [address] Jul, [facility] [address] [id number] [address] [place] [address], [place] [address] Jul, [facility] [address] [id number] [address] [place] [address], [place] [address] Jul, [facility] [address] [id number] [address] [place] [address], [place] [address] Jun, [facility] [address] [id number] [address] [place] [address], [place] [address] Jun, [facility] [address] [id number] [address] [place] [address], [place] [address] Jun, [facility] [address] [id number] [address] [place] [address], [place] [address] Jun, [facility] [address] [id number] [address] [place] [address], [place] [address] Jun, [facility] [address] [id number] [address] [place] [address], [place] [address] Jun, [facility] [address] [id number] [address] [place] [address], [place] [address] Aug, [facility] [address] [id number] [address] [place] [address], [place] [address] Aug, [facility] [address] [id number] [address] [place] [address], [place] [address] Aug, [facility] [address] [id number] [address] [place] [address], [place] [address] Jul, [facility] [address] [id number] [address] [place] [address], [place] [address] Jul, [facility] [address] [id number] [address] [place] [address], [place] [address] Jul, [facility] [address] [id number] [address] [place] [address], [place] [address] 15 Jul, 2010 [facility] [address] [id number] [address] [place] [address], [place] [address] 15 Jul, 2010 [facility] [address] [id number] [address] [place] [id number] 08 Jul, 2010 [facility] [address] [id number] [address] [place] [id number] Jun, [facility] [address] [id number] [address] [place] [id number] Apr, [facility] [address] [id number] [address] [place] [id number] Feb, [facility] [place] [address] [id number] [address] [place] [id number] Oct, [facility] [place] [address] [id number] [address] [place] [phone] Sep, [facility] [place] [address] [id number] [address] [place] [id number] Aug, [facility] [place] [address] [id number] [address] [place] [id number] Aug, [facility] [place] [address] [id number] [address] [place] [phone] Aug, [facility] [place] [address] [id number] [address] [place] [id number] Jul, [facility] [place] [address] [id number] [address] [place] [phone] Jun, IMMUNIZATIONS No Known Immunizations SOCIAL HISTORY Never Assessed REASON FOR VISIT [facility] [place] PLAN OF CARE VITAL [...]
--- OUTSIDE RECORDS SUMMARY | 2020-02-22 17:27 | XMS REPORT ---
Author Author Marion Alexander Doctor Organization [facility] Address Unknown Phone Unavailable Care Team Providers Care Bus Assistant Name Role Phone Migration, Doctor Unavailable Unavailable PROBLEMS Type Condition ICD9-CM Code JSV40-IN Code Onset Dates Condition S tatus SNOMED Code Problem Migraine without aura and without status migrain osus, not intractable G43.009 Active 002252974 Problem Acquired hypothyroidism E03.9 Active 930070836 Problem Cervical disc disease M50.90 Active 569650778 Problem Dyspepsia R10.13 Active [id number] ALLERGIES No Information ENCOUNTERS Encounter Location Date Diagnosis [place] [address] [address] Dec, Cervical disc disease M50.90 [place] [address] [address] Dec, Cervical disc disease M50.90 [place] [address] [address] Dec, Cervical disc disease M50.90 ; Acquired hypothyroidism E03.9 and Migraine without aura and without status migrainosus, not intractable G43.009 [facility] [address] [place] [id number] [address] [place] [address] Nov, [facility] [address] [place] [id number] [place] [address] Nov, Cervical disc disease M50.90 [place] [address] [place] [id number] [address] [place] [address] Oct, Cervical disc disease M50.90 [facility] [address] [place] [id number] [address] [place] [address] Sep, [place] [address] [address] Sep, Cervical disc disease M50.90 [facility] [address] [id number] [address] [place] [address] Aug, Cervical disc disease M50.90 [facility] [address] [id number] [address] [place] [address] Jul, Cervical disc disease M50.90 [facility] [address] [id number] [address] [place] [address] Jun, Acute recurrent pansinusitis J01.41 and Cervical disc disease M50.90 [facility] [address] [id number] [address] [place] [address] Jun, Cervical disc disease M50.90 [facility] [address] [id number] [address] [place] [address] May, Cervical disc disease M50.90 [facility] [address] [id number] [address] [place] [address] Apr, Cervical disc disease M50.90 [facility] [address] [id number] [address] [place] [address] Mar, Cervical disc disease M50.90 [facility] [address] [id number] [address] [place] [address] Mar, [facility] [address] [id number] [address] [place] [address] Mar, Cervical disc disease M50.90 [facility] [address] [id number] [address] [place] [address] Feb, Cervical disc disease M50.90 [facility] [address] [id number] [address] [place] [address] January, Cervical disc disease M50.90 [facility] [address] [id number] [address] [place] [address] Dec, [facility] [address] [id number] [address] [place] [address] Dec, Cervical disc disease M50.90 [facility] [address] [facility] [id number] [address] [place] [address] Nov, Cervical disc disease M50.90 [facility] [address] [facility] [id number] [address] [place] [address] Nov, Cervical disc disease M50.90 [facility] [address] [facility] [id number] [address] [place] [address] Oct, Cervical disc disease M50.90 [facility] [address] [facility] [id number] [address] [place] [address] Oct, Cervical disc disease M50.90 and Acute non-recurrent maxillary sinusitis J01.00 [place] [address] [facility] [id number] [address] [place] [address] Sep, Cervical disc disease M50.90 [facility] [address] [facility] [id number] [address] [place] [address] Sep, [facility] [address] [facility] [id number] [address] [place] [address] Sep, Fatigue, unspecified type R5 3.83 and Cough R05 [place] [address] [facility] [id number] [address] [place] [address] Aug, Cervical disc disease M50.90 [facility] [address] [place] [id number] [address] [place] [address] Aug, Sore throat J02.9 ; Canker s ore K12.0 and History of anemia Z86.2 [place] [address] [facility] [id number] [address] [place] [address] Jul, Cervical disc disease M50.90 [facility] [address] [facility] [id number] [address] [place] [address] 24 Jun, 2017 Cervical disc disease M50.90 [facility] [address] [place] [id number] [address] [place] [address] Jun, Cervical disc disease M50.90 [facility] [address] [id number] [address] [place] [address] May, Cervical disc disease M50.90 [facility] [address] [id number] [address] [place] [address] Apr, Cervical disc disease M50.90 [facility] [address] [id number] [address] [place] [address] Apr, [facility] [address] [id number] [address] [place] [address] Feb, Cervical disc disease M50.90 [facility] [address] [id number] [address] [place] [address] January, Cervical disc disease M50.90 [facility] [address] [id number] [address] [place] [address] Nov, [facility] [address] [id number] [address] [place] [address] Nov, Cervical disc disease M50.[address] [facility] [address] [facility] [id number] [address] [place] [address] Nov, Acute cystitis with hematuri a N30.01 and Dysuria R30.0 [facility] [address] [id number] [address] [place] [address] Oct, Cervical disc disease M50.90 and Acute non-recurrent frontal sinusitis J01.10 [facility] [address] [id number] [address] [place] [address] Sep, Neck pain M54.2 [facility] [address] [id number] [address] [place] [address] Sep, [facility] [address] [id number] [address] [place] [address] Aug, Cervical disc disease M50.90 [facility] [address] [id number] [address] [place] [address] Jul, [facility] [address] [id number] [address] [place] [address] Jun, [facility] [address] [id number] [address] [place] [address] May, [facility] [address] [id number] [address] [place] [address] May, Screening for diabetes emilio tus Z13.1 ; Chronic fatigue R53.82 and Edema, unspecified type R60.9 [facility] [address] [id number] [address] [place] [address] Apr, Neck pain M54.2 [facility] [address] [id number] [address] [place] [address] Mar, [facility] [address] [id number] [address] [place] [address] Mar, Neck pain M54.2 [facility] [address] [id number] [address] [place] [address] Feb, Cervical disc disease M50.90 [facility] [address] [id number] [address] [place] [address] Feb, Cervical disc disease M50.90 [facility] [address] [id number] [address] [place] [address] January, [facility] [address] [id number] [address] [place] [address] January, [facility] [address] [id number] [address] [place] [address] January, Cervical disc disease M50.90 [facility] [address] [id number] [address] [place] [address] January, [facility] [address] [id number] [address] [place] [address] January, [facility] [address] [id number] [address] [place] [address] Dec, Cervical disc disease M50.90 [facility] [address] [id number] [address] [place] [address] Nov, Cervical disc disease M50.90 [facility] [address] [id number] [address] [place] [address] Oct, Cervical disc disease M50.90 [facility] [address] [id number] [address] [place] [address] Sep, Cervical disc disease M50.90 [facility] [address] [id number] [address] [place] [id number] Aug, Dental caries K02.9 and Enco unter for dental examination Z01.20 [facility] [address] [id number] [address] [place] [address] Aug, [facility] [address] [id number] [address] [place] [address] Aug, [facility] [address] [id number] [address] [place] [id number] Aug, Encounter for dental examina tion Z01.20 [facility] [address] [id number] [address] [place] [address] Jul, [facility] [address] [id number] [address] [place] [address] Jun, Sinusitis J32.9 and Cervical disc disease M50.90 [facility] [address] [id number] [address] [place] [address] Jun, [facility] [address] [id number] [address] [place] [address] 24 May, 2015 [facility] [address] [id number] [address] [place] [address] 23 May, 2015 [facility] [address] [id number] [address] [place] [address] May, [facility] [address] [id number] [address] [place] [address] May, [facility] [address] [id number] [address] [place] [address] Apr, Cervical spondylosis without myelopathy 721.0 [facility] [address] [id number] [address] [place] [address] Mar, [facility] [address] [id number] [address] [place] [address] January, Cervical spondylosis without myelopathy 721.0 [facility] [address] [id number] [address] [place] [address] Dec, [facility] [address] [id number] [address] [place] [phone] Dec, [facility] [address] [id number] [address] [place] [phone] Dec, [facility] [address] [id number] [address] [place] [address] Nov, [facility] [address] [id number] [address] [place] [phone] Nov, [facility] [address] [id number] [address] [place] [phone] Oct, [facility] [address] [id number] [address] [place] [phone] Oct, [facility] [address] [id number] [address] [place] [phone] Oct, [facility] [address] [id number] [address] [place] [phone] Oct, [facility] [address] [id number] [address] [place] [phone] Oct, [facility] [address] [id number] [address] [place] [address], [place] [address] 04 Oct, 2014 [facility] [address] [id number] [address] [place] [address], [place] [address] Oct, 2014 [facility] [address] [id number] [address] [place] [address], [place] [address] Oct, 2014 [facility] [address] [id number] [address] [place] [address], [place] [address] Oct, [facility] [address] [id number] [address] [place] [address], [place] [address] Oct, [facility] [address] [id number] [address] [place] [address], [place] [address] Sep, [facility] [address] [id number] [address] [place] [address], [place] [address] Sep, [facility] [address] [id number] [address] [place] [address], [place] [address] Sep, [facility] [address] [id number] [address] [place] [address], [place] [address] Sep, [facility] [address] [id number] [address] [place] [address], [place] [address] Sep, [facility] [address] [id number] [address] [place] [address], [place] [address] Sep, [facility] [address] [id number] [address] [place] [address], [place] [address] Sep, [facility] [address] [id number] [address] [place] [address], [place] [address] Sep, [facility] [address] [id number] [address] [place] [address], [place] [address] Sep, [facility] [address] [id number] [address] [place] [address], [place] [address] Aug, [facility] [address] [id number] [address] [place] [address], [place] [address] Aug, [facility] [address] [id number] [address] [place] [address], [place] [address] Aug, [facility] [address] [id number] [address] [place] [address], [place] [address] Aug, [facility] [address] [id number] [address] [place] [address], [place] [address] Jul, [facility] [address] [id number] [address] [place] [address], [place] [address] Jul, [facility] [address] [id number] [address] [place] [address], [place] [address] Jul, [facility] [address] [id number] [address] [place] [address], [place] [address] Jul, [facility] [address] [id number] [address] [place] [address], [place] [address] Jul, [facility] [address] [id number] [address] [place] [address], [place] [address] Jul, [facility] [address] [id number] [address] [place] [address], [place] [address] Jul, [facility] [address] [id number] [address] [place] [address], [place] [address] Jul, [facility] [address] [id number] [address] [place] [address], [place] [address] Jun, [facility] [address] [id number] [address] [place] [address], [place] [address] Jun, [facility] [address] [id number] [address] [place] [address], [place] [address] Jun, [facility] [address] [id number] [address] [place] [address], [place] [address] Jun, [facility] [address] [id number] [address] [place] [address], [place] [address] 16 Jun, 2014 [facility] [address] [id number] [address] [place] [address] [place] [address] 15 Jun, 2014 [facility] [address] [id number] [address] [place] [address], [place] [address] 15 Jun, 2014 [facility] [address] [id number] [address] [place] [address], [place] [address] 14 Jun, 2014 [facility] [address] [id number] [address] [place] [address], [place] [address] 14 Jun, 2014 [facility] [address] [id number] [address] [place] [address], [place] [address] 11 Jun, 2014 [facility] [address] [id number] [address] [place] [address], [place] [address] 11 Jun, 2014 [facility] [address] [id number] [address] [place] [address], [place] [address] 24 May, 2014 [facility] [address] [id number] [address] [place] [address], [place] [address] 24 May, 2013 [facility] [address] [id number] [address] [place] [address], [place] [address] 08 May, 2014 [facility] [address] [id number] [address] [place] [address], [place] [address] 02 May, 2014 [facility] [address] [id number] [address] [place] [address], [place] [address] 02 May, 2014 [facility] [address] [id number] [address] [place] [address], [place] [address] Apr, [facility] [address] [id number] [address] [place] [address], [place] [address] Apr, [facility] [address] [id number] [address] [place] [address], [place] [address] Apr, [facility] [address] [id number] [address] [place] [address], [place] [address] Apr, [facility] [address] [id number] [address] [place] [address], [place] [address] Apr, [facility] [address] [id number] [address] [place] [address], [place] [address] Apr, [facility] [address] [id number] [facility] [place] [address] Mar, [facility] [address] [id number] [address] [place] [address], [place] [address] Mar, [facility] [address] [id number] [address] [place] [address], [place] [address] Mar, [facility] [address] [id number] [address] [place] [address], [place] [address] Mar, [facility] [address] [id number] [address] [place] [address], [place] [address] Mar, [facility] [address] [id number] [address] [place] [address], [place] [address] Mar, [facility] [address] [id number] [address] [place] [address], [place] [address] Feb, [facility] [address] [id number] [address] [place] [address], [place] [address] Feb, [facility] [address] [id number] [address] [place] [address], [place] [address] Feb, [facility] [address] [id number] [address] [place] [address], [place] [address] Feb, [facility] [address] [id number] [address] [place] [address], [place] [address] Feb, [facility] [address] [id number] [address] [place] [address], [place] [address] Feb, [facility] [address] [id number] [address] [place] [address], [place] [address] Feb, [facility] [address] [id number] [address] [place] [address], [place] [address] Feb, [facility] [address] [id number] [address] [place] [address], [place] [address] January, [facility] [address] [id number] [address] [place] [address], [place] [address] January, [facility] [address] [id number] [address] [place] [address], [place] [address] January, [facility] [address] [id number] [address] [place] [address], [place] [address] January, [facility] [address] [id number] [address] [place] [address], [place] [address] January, [facility] [address] [id number] [address] [place] [address], [place] [address] January, [facility] [address] [id number] [address] [place] [address], [place] [address] January, [facility] [address] [id number] [address] [place] [address], [place] [address] January, [facility] [address] [id number] [address] [place] [address], [place] [address] Dec, [facility] [address] [id number] [address] [place] [address], [place] [address] Dec, [facility] [address] [id number] [address] [place] [address], [place] [address] Dec, [facility] [address] [id number] [address] [place] [address], [place] [address] Dec, [facility] [address] [id number] [address] [place] [address], [place] [address] Dec, [facility] [address] [id number] [address] [place] [address], [place] [address] Dec, [facility] [address] [id number] [address] [place] [address], [place] [address] Nov, [facility] [address] [id number] [address] [place] [address], [place] [address] Nov, [facility] [address] [id number] [address] [place] [address], [place] [address] 27 Nov, 2013 [facility] [address] [id number] [address] [place] [address], [place] [address] Nov, [facility] [address] [id number] [address] [place] [address], [place] [address] Nov, [facility] [address] [id number] [address] [place] [address], [place] [address] Nov, [facility] [address] [id number] [address] [place] [address], [place] [address] Nov, [facility] [address] [id number] [address] [place] [address], [place] [address] Nov, [facility] [address] [id number] [address] [place] [address], [place] [address] Oct, [facility] [address] [id number] [address] [place] [address], [place] [address] Oct, [facility] [address] [id number] [address] [place] [address], [place] [address] Sep, [facility] [address] [id number] [address] [place] [address], [place] [id number] Sep, [facility] [address] [id number] [address] [place] [address], [place] [address] Sep, [facility] [address] [id number] [address] [place] [address], [place] [address] Sep, [facility] [address] [id number] [address] [place] [address], [place] [address] Aug, [facility] [address] [id number] [address] [place] [address], [place] [address] Aug, [facility] [address] [id number] [address] [place] [address], [place] [address] Aug, [facility] [address] [id number] [address] [place] [address], [place] [address] Aug, [facility] [address] [id number] [address] [place] [address], [place] [address] Jul, [facility] [address] [id number] [address] [place] [id number] Jul, [facility] [address] [id number] [address] [place] [id number] Jul, [facility] [address] [id number] [address] [place] [id number] Jul, [facility] [address] [id number] [address] [place] [address], [place] [address] Jul, [facility] [address] [id number] [address] [place] [id number] Jul, [facility] [address] [id number] [address] [place] [id number] Jul, [facility] [address] [id number] [address] [place] [id number] Jul, [facility] [address] [id number] [address] [place] [id number] Jul, [facility] [address] [id number] [address] [place] [id number] Jul, [facility] [address] [id number] [address] [place] [id number] Jul, [facility] [address] [id number] [address] [place] [phone] Jul, [facility] [address] [id number] [address] [place] [id number] Jun, [facility] [address] [id number] [address] [place] [id number] Jun, [facility] [address] [id number] [address] [place] [phone] Jun, [facility] [address] [id number] [address] [place] [id number] Jun, [facility] [address] [id number] [address] [place] [address], [place] [address] 16 Jun, 2013 [facility] [address] [id number] [address] [place] [address], [place] [address] 14 Jun, 2013 [facility] [address] [id number] [address] [place] [address], [place] [address] 14 Jun, 2013 [facility] [address] [id number] [address] [place] [address], [place] [address] Jun, [facility] [address] [id number] [address] [place] [address], [place] [address] 15 May, 2013 [facility] [address] [id number] [address] [place] [address], [place] [address] 05 May, 2013 [facility] [address] [id number] [address] [place] [address], [place] [address] May, [facility] [address] [id number] [address] [place] [address], [place] [address] Apr, [facility] [address] [id number] [address] [place] [address], [place] [address] Apr, [facility] [address] [id number] [address] [place] [address], [place] [address] Mar, [facility] [address] [id number] [address] [place] [address], [place] [address] Mar, [facility] [address] [id number] [address] [place] [address], [place] [address] Feb, [facility] [address] [id number] [address] [place] [address], [place] [address] January, [facility] [address] [id number] [address] [place] [address], [place] [address] January, [facility] [address] [id number] [address] [place] [address], [place] [address] January, [facility] [address] [id number] [address] [place] [address], [place] [address] January, [facility] [address] [id number] [address] [place] [address], [place] [address] January, [facility] [address] [id number] [address] [place] [address], [place] [address] 29 Dec, 2012 [facility] [address] [id number] [address] [place] [address], [place] [address] Dec, [facility] [address] [id number] [address] [place] [address], [place] [address] Dec, [facility] [address] [id number] [address] [place] [address], [place] [address] Nov, [facility] [address] [id number] [address] [place] [address], [place] [address] 27 Oct, 2012 [facility] [address] [id number] [address] [place] [address], [place] [address] 18 Oct, 2012 [facility] [address] [id number] [address] [place] [address], [place] [address] 15 Oct, 2012 [facility] [address] [id number] [address] [place] [address], [place] [address] Sep, [facility] [address] [id number] [address] [place] [address], [place] [address] 16 Sep, 2012 [facility] [address] [id number] [address] [place] [address], [place] [address] 14 Aug, 2012 [facility] [address] [id number] [address] [place] [address], [place] [address] 14 Aug, 2012 [facility] [address] [id number] [address] [place] [address], [place] [address] Aug, [facility] [address] [id number] [address] [place] [address], [place] [address] 11 Aug, 2012 [facility] [address] [id number] [address] [place] [address], [place] [address] Jul, [facility] [address] [id number] [address] [place] [address], [place] [address] Jul, [facility] [address] [id number] [address] [place] [address], [place] [address] Jul, [facility] [address] [id number] [address] [place] [address], [place] [address] Jul, [facility] [address] [id number] [address] [place] [address], [place] [address] Jul, [facility] [address] [id number] [address] [place] [address], [place] [address] Jun, [facility] [address] [id number] [address] [place] [address], [place] [address] 15 Jun, 2012 [facility] [address] [id number] [address] [place] [address], [place] [address] Jun, [facility] [address] [id number] [address] [place] [address], [place] [address] Jun, [facility] [address] [id number] [address] [place] [address], [place] [address] May, [facility] [address] [id number] [address] [place] [address], [place] [address] Apr, [facility] [address] [id number] [address] [place] [address], [place] [address] Apr, [facility] [address] [id number] [address] [place] [address], [place] [address] Apr, [facility] [address] [id number] [address] [place] [address], [place] [address] Apr, [facility] [address] [id number] [address] [place] [address], [place] [address] January, [facility] [address] [id number] [address] [place] [address], [place] [address] January, [facility] [address] [id number] [address] [place] [address], [place] [address] Dec, [facility] [address] [id number] [address] [place] [address], [place] [address] Dec, [facility] [address] [id number] [address] [place] [address], [place] [address] Nov, [facility] [address] [id number] [address] [place] [address], [place] [address] Nov, [facility] [address] [id number] [address] [place] [address], [place] [address] Nov, [facility] [address] [id number] [address] [place] [address], [place] [address] Nov, [facility] [address] [id number] [address] [place] [address], [place] [address] Oct, [facility] [address] [id number] [address] [place] [address], [place] [address] Oct, [facility] [address] [id number] [address] [place] [address], [place] [address] Oct, [facility] [address] [id number] [address] [place] [address], [place] [address] Sep, [facility] [address] [id number] [address] [place] [address], [place] [address] Sep, [facility] [address] [id number] [address] [place] [address], [place] [address] Aug, [facility] [address] [id number] [address] [place] [address], [place] [address] Aug, [facility] [address] [id number] [address] [place] [address], [place] [address] Jul, [facility] [address] [id number] [address] [place] [address], [place] [address] Jul, [facility] [address] [id number] [address] [place] [address], [place] [address] Jul, [facility] [address] [id number] [address] [place] [address], [place] [address] Jun, [facility] [address] [id number] [address] [place] [address], [place] [address] 24 Jun, 2011 [facility] [address] [id number] [address] [place] [address], [place] [address] Jun, [facility] [address] [id number] [address] [place] [address], [place] [address] Jun, [facility] [address] [id number] [address] [place] [address], [place] [address] Jun, [facility] [address] [id number] [address] [place] [address], [place] [address] Jun, [facility] [address] [id number] [address] [place] [address], [place] [address] Aug, [facility] [address] [id number] [address] [place] [address], [place] [address] Aug, [facility] [address] [id number] [address] [place] [address], [place] [address] Aug, [facility] [address] [id number] [address] [place] [address], [place] [address] Jul, [facility] [address] [id number] [address] [place] [address], [place] [address] Jul, [facility] [address] [id number] [address] [place] [address], [place] [address] Jul, [facility] [address] [id number] [address] [place] [address], [place] [address] 15 Jul, 2010 [facility] [address] [id number] [address] [place] [address], [place] [address] Jul, [facility] [address] [id number] [address] [place] [address], [place] [address] 08 Jul, 2010 [facility] [address] [id number] [address] [place] [id number] Jun, [facility] [address] [id number] [address] [place] [phone] Apr, [facility] [address] [id number] [address] [place] [id number] Feb, [facility] [address] [id number] [address] [place] [id number] Oct, [facility] [address] [id number] [address] [place] [address] Sep, [facility] [address] [id number] [address] [place] [id number] Aug, [facility] [address] [id number] [address] [place] [phone] Aug, [facility] [address] [id number] [address] [place] [phone] Aug, [facility] [address] [id number] [address] [place] [phone] Jul, [facility] [address] [id number] [address] [place] [phone] Jun, IMMUNIZATIONS No Known Immunizations SOCIAL HISTORY Never Assessed REASON FOR VISIT [facility] [place] PLAN OF CARE [...]
--- OUTSIDE RECORDS SUMMARY | 2020-02-22 17:28 | XMS REPORT ---
Author Author Marion Alexander Doctor Organization [facility] Address Unknown Phone Unavailable Care Team Providers Care Service Engineer Name Role Phone Migration, Doctor Unavailable Unavailable PROBLEMS Type Condition ICD9-CM Code FYH20-LJ Code Onset Dates Condition S tatus SNOMED Code Problem Migraine without aura and without status migrain osus, not intractable G43.009 Active 932506921 Problem Acquired hypothyroidism E03.9 Active 797552111 Problem Cervical disc disease M50.90 Active 210427852 Problem Dyspepsia R10.13 Active 467677149 ALLERGIES No Information ENCOUNTERS Encounter Location Date Diagnosis [place] [address] [address] Dec, [place] [address] [address] Dec, Cervical disc disease M50.90 ; Acquired hypothyroidism E03.9 and Migraine without aura and without status migrainosus, not intractable G43.009 [place] [address] [place] [id number] [address] [place] [address] Nov, [place] [address] [address] [place] [id number] [address] [place] [address] Nov, Cervical disc disease M50.90 [place] [address] [address] [place] [id number] [address] [place] [address] Oct, Cervical disc disease M50.90 [place] [id number] [address] [place] [address] Sep, [place] [address] [address] [place] [id number] [address] [place] [address] Sep, Cervical disc disease M50.90 [place] [id number] [address] [place] [address] Aug, Cervical disc disease M50.90 [facility] [address] [id number] [address] [place] [address] Jul, Cervical disc disease M50.90 [facility] [address] [id number] [address] [place] [address] Jun, Acute recurrent pansinusitis J01.41 and Cervical disc disease M50.90 [facility] [address] [id number] [address] [place] [address] Jun, Cervical disc disease M50.90 [facility] [address] [id number] [address] [place] [address] May, Cervical disc disease M50.90 [facility] [address] [id number] [address] [place] [address] Apr, Cervical disc disease M50.90 [facility] [address] [id number] [address] [place] [address] Mar, Cervical disc disease M50.90 [facility] [address] [id number] [address] [place] [address] Mar, [facility] [address] [id number] [address] [place] [address] Mar, Cervical disc disease M50.90 [facility] [address] [id number] [address] [place] [address] Feb, Cervical disc disease M50.90 [facility] [address] [id number] [address] [place] [address] January, Cervical disc disease M50.90 [facility] [address] [id number] [address] [place] [address] Dec, [facility] [address] [id number] [address] [place] [address] Dec, Cervical disc disease M50.90 [facility] [address] [id number] [address] [place] [address] Nov, Cervical disc disease M50.90 [facility] [address] [place] [id number] [address] [place] [address] Nov, Cervical disc disease M50.90 [facility] [address] [place] [id number] [address] [place] [address] 15 Oct, 2017 Cervical disc disease M50.90 [facility] [address] [place] [id number] [address] [place] [address] Oct, Cervical disc disease M50.90 and Acute non-recurrent maxillary sinusitis J01.00 [place] [address] [address] [place] [id number] [address] [place] [address] Sep, Cervical disc disease M50.90 [facility] [address] [place] [id number] [address] [place] [address] Sep, [facility] [address] [address] Sep, Fatigue, unspecified type R5 3.83 and Cough R05 [place] [id number] [address] [place] [address] Aug, Cervical disc disease M50.90 [facility] [address] [address] Aug, Sore throat J02.9 ; Canker s ore K12.0 and History of anemia Z86.2 [place] [id number] [place] [address] Jul, Cervical disc disease M50.90 [place] [id number] [place] [address] Jun, Cervical disc disease M50.90 [place] [address] [address] [place] [id number] [place] [address] Jun, Cervical disc disease M50.90 [place] [address] [address] [place] [id number] [address] [place] [address] May, Cervical disc disease M50.90 [facility] [address] [facility] [id number] [address] [place] [address] Apr, Cervical disc disease M50.90 [facility] [address] [facility] [id number] [address] [place] [address] Apr, [facility] [address] [facility] [id number] [address] [place] [address] Feb, Cervical disc disease M50.90 [facility] [address] [facility] [id number] [address] [place] [address] January, Cervical disc disease M50.90 [facility] [address] [facility] [id number] [address] [place] [address] Nov, [facility] [address] [facility] [id number] [address] [place] [address] Nov, Cervical disc disease M50.90 [facility] [address] [facility] [id number] [address] [place] [address] Nov, Acute cystitis with hematuri a N30.01 and Dysuria R30.0 [facility] [address] [facility] [id number] [address] [place] [address] Oct, Cervical disc disease M50.90 and Acute non-recurrent frontal sinusitis J01.10 [facility] [address] [facility] [id number] [address] [place] [address] Sep, Neck pain M54.2 [facility] [address] [facility] [id number] [address] [place] [address] Sep, [facility] [address] [facility] [id number] [address] [place] [address] Aug, Cervical disc disease M50.90 [facility] [address] [facility] [id number] [address] [place] [address] Jul, [facility] [address] [place] [id number] [address] [place] [address] Jun, [facility] [address] [id number] [address] [place] [address] May, [facility] [address] [id number] [address] [place] [address] May, Screening for diabetes blanchei tus Z13.1 ; Chronic fatigue R53.82 and Edema, unspecified type R60.9 [facility] [address] [id number] [address] [place] [address] Apr, Neck pain M54.2 [facility] [address] [id number] [address] [place] [address] Mar, [facility] [address] [id number] [address] [place] [address] Mar, Neck pain M54.2 [facility] [address] [id number] [address] [place] [address] Feb, Cervical disc disease M50.90 [facility] [address] [id number] [address] [place] [address] Feb, Cervical disc disease M50.90 [facility] [address] [id number] [address] [place] [address] January, [facility] [address] [id number] [address] [place] [address] January, [facility] [address] [id number] [address] [place] [address] January, Cervical disc disease M50.90 [facility] [address] [id number] [address] [place] [address] January, [facility] [address] [id number] [address] [place] [address] January, [facility] [address] [id number] [address] [place] [address] Dec, Cervical disc disease M50.90 [facility] [address] [id number] [address] [place] [address] Nov, Cervical disc disease M50.90 [facility] [address] [id number] [address] [place] [address] Oct, Cervical disc disease M50.90 [facility] [address] [id number] [address] [place] [address] Sep, Cervical disc disease M50.90 [facility] [address] [id number] [address] [place] [id number] Aug, Dental caries K02.9 and Enco unter for dental examination Z01.20 [facility] [address] [id number] [address] [place] [address] Aug, [facility] [address] [id number] [address] [place] [address] Aug, [facility] [address] [id number] [address] [place] [id number] Aug, Encounter for dental examina tion Z01.20 [facility] [address] [id number] [address] [place] [address] Jul, [facility] [address] [id number] [address] [place] [address] Jun, Sinusitis J32.9 and Cervical disc disease M50.90 [facility] [address] [id number] [address] [place] [address] Jun, [facility] [address] [id number] [address] [place] [address] 24 May, 2015 [facility] [address] [id number] [address] [place] [phone] 23 May, 2015 [facility] [address] [id number] [address] [place] [address] 22 May, 2015 [facility] [address] [id number] [address] [place] [address] May, [facility] [address] [id number] [address] [place] [address] Apr, Cervical spondylosis without myelopathy 721.0 [facility] [address] [id number] [address] [place] [address] Mar, [facility] [address] [id number] [address] [place] [address] January, Cervical spondylosis without myelopathy 721.0 [facility] [address] [id number] [address] [place] [address], [place] [address] Dec, [facility] [address] [id number] [address] [place] [address] Dec, [facility] [address] [id number] [address] [place] [address] Dec, [facility] [address] [id number] [address] [place] [address] Nov, [facility] [address] [id number] [address] [place] [address] Nov, [facility] [address] [id number] [address] [place] [address] Oct, [facility] [address] [id number] [address] [place] [address] Oct, [facility] [address] [id number] [address] [place] [address] Oct, [facility] [address] [id number] [address] [place] [address] Oct, [facility] [address] [id number] [address] [place] [address] Oct, [facility] [address] [id number] [address] [place] [address] Oct, [facility] [address] [id number] [address] [place] [address] Oct, [facility] [address] [id number] [address] [place] [address], [place] [address] Oct, [facility] [address] [id number] [address] [place] [address], [place] [address] Oct, [facility] [address] [id number] [address] [place] [address], [place] [address] Oct, [facility] [address] [id number] [address] [place] [address], [place] [address] Sep, [facility] [address] [id number] [address] [place] [address], [place] [address] Sep, [facility] [address] [id number] [address] [place] [address], [place] [address] Sep, [facility] [address] [id number] [address] [place] [address], [place] [address] Sep, [facility] [address] [id number] [address] [place] [address], [place] [address] Sep, [facility] [address] [id number] [address] [place] [address], [place] [address] Sep, [facility] [address] [id number] [address] [place] [address], [place] [address] Sep, [facility] [address] [id number] [address] [place] [address], [place] [address] Sep, [facility] [address] [id number] [address] [place] [address], [place] [address] Sep, [facility] [address] [id number] [address] [place] [address], [place] [address] Aug, [facility] [address] [id number] [address] [place] [address], [place] [address] Aug, [facility] [address] [id number] [address] [place] [address], [place] [address] Aug, [facility] [address] [id number] [address] [place] [address], [place] [address] Aug, [facility] [address] [id number] [address] [place] [address], [place] [address] Jul, [facility] [address] [id number] [address] [place] [address], [place] [address] Jul, [facility] [address] [id number] [address] [place] [address], [place] [address] Jul, [facility] [address] [id number] [address] [place] [address], [place] [address] Jul, [facility] [address] [id number] [address] [place] [address], [place] [address] Jul, [facility] [address] [id number] [address] [place] [address], [place] [address] Jul, [facility] [address] [id number] [address] [place] [address], [place] [address] Jul, [facility] [address] [id number] [address] [place] [address], [place] [address] Jul, [facility] [address] [id number] [address] [place] [address], [place] [address] Jun, [facility] [address] [id number] [address] [place] [address], [place] [address] Jun, [facility] [address] [id number] [address] [place] [address], [place] [address] Jun, [facility] [address] [id number] [address] [place] [address], [place] [address] 20 Jun, 2014 [facility] [address] [id number] [address] [place] [address], [place] [address] 16 Jun, 2014 [facility] [address] [id number] [address] [place] [address], [place] [address] 15 Jun, 2014 [facility] [address] [id number] [address] [place] [address], [place] [address] 15 Jun, 2014 [facility] [address] [id number] [address] [place] [address], [place] [address] 14 Jun, 2014 [facility] [address] [id number] [address] [place] [address], [place] [address] 14 Jun, 2014 [facility] [address] [id number] [address] [place] [address], [place] [address] Jun, [facility] [address] [id number] [address] [place] [address], [place] [address] Jun, [facility] [address] [id number] [address] [place] [address], [place] [address] May, [facility] [address] [id number] [address] [place] [address], [place] [address] May, [facility] [address] [id number] [address] [place] [address], [place] [address] May, [facility] [address] [id number] [address] [place] [address], [place] [address] May, [facility] [address] [id number] [address] [place] [address], [place] [address] May, [facility] [address] [id number] [address] [place] [address], [place] [address] Apr, [facility] [address] [id number] [address] [place] [address], [place] [address] Apr, [facility] [address] [id number] [address] [place] [address], [place] [address] Apr, [facility] [address] [id number] [address] [place] [address], [place] [address] Apr, [facility] [address] [id number] [address] [place] [address], [place] [address] Apr, [facility] [address] [id number] [address] [place] [address], [place] [address] Apr, [facility] [address] [id number] [address] [place] [address], [place] [address] Mar, [facility] [address] [id number] [address] [place] [address], [place] [address] Mar, [facility] [address] [id number] [address] [place] [address], [place] [address] Mar, [facility] [address] [id number] [address] [place] [address], [place] [address] Mar, [facility] [address] [id number] [address] [address], [place] [address] Mar, [facility] [address] [id number] [address] [place] [address], [place] [address] Mar, [facility] [address] [id number] [address] [place] [address], [place] [address] Feb, [facility] [address] [id number] [address] [place] [address], [place] [address] Feb, [facility] [address] [id number] [address] [place] [address], [place] [address] Feb, [facility] [address] [id number] [address] [place] [address], [place] [address] Feb, [facility] [address] [id number] [address] [place] [address], [place] [address] Feb, [facility] [address] [id number] [address] [place] [address], [place] [address] Feb, [facility] [address] [id number] [address] [place] [address], [place] [address] Feb, [facility] [address] [id number] [address] [place] [address], [place] [address] Feb, [facility] [address] [id number] [address] [place] [address], [place] [address] January, [facility] [address] [id number] [address] [place] [address], [place] [address] January, [facility] [address] [id number] [facility] [place] [address] January, [facility] [address] [id number] [address] [place] [address], [place] [address] January, [facility] [address] [id number] [address] [place] [address], [place] [address] January, [facility] [address] [id number] [address] [place] [address], [place] [address] January, [facility] [address] [id number] [address] [place] [address], [place] [address] January, [facility] [address] [id number] [address] [place] [address], [place] [address] January, [facility] [address] [id number] [address] [place] [address], [place] [address] Dec, [facility] [address] [id number] [address] [place] [address], [place] [address] Dec, [facility] [address] [id number] [address] [place] [address], [place] [address] Dec, [facility] [address] [id number] [address] [place] [address], [place] [address] Dec, [facility] [address] [id number] [address] [place] [address], [place] [address] Dec, [facility] [address] [id number] [address] [place] [address], [place] [address] Dec, [facility] [address] [id number] [address] [place] [address], [place] [address] Nov, [facility] [address] [id number] [address] [place] [address], [place] [address] Nov, [facility] [address] [id number] [address] [place] [address], [place] [address] Nov, [facility] [address] [id number] [address] [place] [address], [place] [address] Nov, [facility] [address] [id number] [facility] [place] [address] Nov, [facility] [address] [id number] [address] [place] [address], [place] [address] Nov, [facility] [address] [id number] [facility] [place] [address] Nov, [facility] [address] [id number] [address] [place] [address], [place] [address] Nov, [facility] [address] [id number] [address] [place] [address], [place] [address] Oct, [facility] [address] [id number] [address] [place] [address], [place] [address] Oct, [facility] [address] [id number] [address] [place] [address], [place] [address] Sep, [facility] [address] [id number] [address] [place] [address], [place] [address] Sep, [facility] [address] [id number] [address] [place] [address], [place] [address] Sep, [facility] [address] [id number] [address] [place] [address], [place] [address] Sep, [facility] [address] [id number] [address] [place] [address], [place] [address] Aug, [facility] [address] [id number] [address] [place] [address], [place] [address] Aug, [facility] [address] [id number] [address] [place] [address], [place] [address] Aug, [facility] [address] [id number] [address] [place] [address], [place] [address] Aug, [facility] [address] [id number] [address] [place] [address], [place] [address] Jul, [facility] [address] [id number] [address] [place] [address], [place] [address] Jul, [facility] [address] [id number] [address] [place] [address], [place] [address] Jul, [facility] [address] [id number] [address] [place] [address], [place] [address] Jul, [facility] [address] [id number] [address] [place] [address], [place] [address] Jul, [facility] [address] [id number] [address] [place] [address], [place] [address] Jul, [facility] [address] [id number] [address] [place] [address], [place] [address] Jul, [facility] [address] [id number] [address] [place] [address], [place] [address] Jul, [facility] [address] [id number] [address] [place] [address], [place] [address] Jul, [facility] [address] [id number] [address] [place] [address], [place] [address] Jul, [facility] [address] [id number] [address] [place] [address], [place] [address] Jul, [facility] [address] [id number] [address] [place] [address], [place] [address] Jul, [facility] [address] [id number] [address] [place] [address], [place] [address] Jun, [facility] [address] [id number] [address] [place] [address], [place] [address] Jun, [facility] [address] [id number] [address] [place] [address], [place] [address] Jun, [facility] [address] [id number] [address] [place] [address], [place] [address] Jun, [facility] [address] [id number] [address] [place] [address], [place] [address] 16 Jun, 2013 [facility] [address] [id number] [address] [place] [address], [place] [address] 14 Jun, 2013 [facility] [address] [id number] [address] [place] [address], [place] [address] 14 Jun, 2013 [facility] [address] [id number] [address] [place] [address], [place] [address] 02 Jun, 2013 [facility] [address] [id number] [address] [place] [address], [place] [address] 15 May, 2013 [facility] [address] [id number] [address] [place] [address], [place] [address] 05 May, 2013 [facility] [address] [id number] [address] [place] [address], [place] [address] May, [facility] [address] [id number] [address] [place] [address], [place] [address] Apr, [facility] [address] [id number] [address] [place] [address], [place] [address] Apr, [facility] [address] [id number] [address] [place] [address], [place] [address] Mar, [facility] [address] [id number] [address] [place] [address], [place] [address] Mar, [facility] [address] [id number] [address] [place] [address], [place] [address] Feb, [facility] [address] [id number] [address] [place] [address], [place] [address] January, [facility] [address] [id number] [address] [place] [address], [place] [address] January, [facility] [address] [id number] [address] [place] [address], [place] [address] January, [facility] [address] [id number] [address] [place] [address], [place] [address] January, [facility] [address] [id number] [address] [place] [address], [place] [address] January, [facility] [address] [id number] [address] [place] [address], [place] [address] 29 Dec, 2012 [facility] [address] [id number] [address] [place] [address], [place] [address] 17 Dec, 2012 [facility] [address] [id number] [address] [place] [address], [place] [address] Dec, [facility] [address] [id number] [address] [place] [address], [place] [address] Nov, [facility] [address] [id number] [address] [place] [address], [place] [address] 27 Oct, 2012 [facility] [address] [id number] [address] [place] [address], [place] [address] 18 Oct, 2012 [facility] [address] [id number] [address] [place] [address], [place] [address] 15 Oct, 2012 [facility] [address] [id number] [address] [place] [address], [place] [address] Sep, [facility] [address] [id number] [address] [place] [address], [place] [address] 16 Sep, 2012 [facility] [address] [id number] [address] [place] [address], [place] [address] 14 Aug, 2012 [facility] [address] [id number] [address] [place] [address], [place] [address] 14 Aug, 2012 [facility] [address] [id number] [address] [place] [address], [place] [address] Aug, [facility] [address] [id number] [address] [place] [address], [place] [address] Aug, [facility] [address] [id number] [address] [place] [address], [place] [address] 21 Jul, 2012 [facility] [address] [id number] [address] [place] [address], [place] [address] Jul, [facility] [address] [id number] [address] [place] [address], [place] [address] Jul, [facility] [address] [id number] [address] [place] [address], [place] [address] Jul, [facility] [address] [id number] [address] [place] [address], [place] [address] Jul, [facility] [address] [id number] [address] [place] [address], [place] [address] 15 Jun, 2012 [facility] [address] [id number] [address] [place] [address], [place] [address] 15 Jun, 2012 [facility] [address] [id number] [address] [place] [address], [place] [address] Jun, [facility] [address] [id number] [address] [place] [address], [place] [address] Jun, [facility] [address] [id number] [address] [place] [address], [place] [address] May, [facility] [address] [id number] [address] [place] [address], [place] [address] Apr, [facility] [address] [id number] [address] [place] [address], [place] [address] Apr, [facility] [address] [id number] [address] [place] [address], [place] [address] Apr, [facility] [address] [id number] [address] [place] [address], [place] [address] Apr, [facility] [address] [id number] [address] [place] [address], [place] [address] January, [facility] [address] [id number] [address] [place] [address], [place] [address] January, [facility] [address] [id number] [address] [place] [address], [place] [address] Dec, [facility] [address] [id number] [address] [place] [address], [place] [address] Dec, [facility] [address] [id number] [address] [place] [address], [place] [address] Nov, [facility] [address] [id number] [address] [place] [address], [place] [address] Nov, [facility] [address] [id number] [address] [place] [address], [place] [address] Nov, [facility] [address] [id number] [address] [place] [address], [place] [address] Nov, [facility] [address] [id number] [address] [place] [address], [place] [address] Oct, [facility] [address] [id number] [address] [place] [address], [place] [address] Oct, [facility] [address] [id number] [address] [place] [address], [place] [address] Oct, [facility] [address] [id number] [address] [place] [address], [place] [address] Sep, [facility] [address] [id number] [address] [place] [address], [place] [address] Sep, [facility] [address] [id number] [address] [place] [address], [place] [address] Aug, [facility] [address] [id number] [address] [place] [address], [place] [address] Aug, [facility] [address] [id number] [address] [place] [address], [place] [address] Jul, [facility] [address] [id number] [address] [place] [address], [place] [address] Jul, [facility] [address] [id number] [address] [place] [address], [place] [address] Jul, [facility] [address] [id number] [address] [place] [address], [place] [address] Jun, [facility] [address] [id number] [address] [place] [address], [place] [address] 24 Jun, [address] [facility] [address] [id number] [address] [place] [address], [place] [address] Jun, [facility] [address] [id number] [address] [place] [address], [place] [address] Jun, [facility] [address] [id number] [address] [place] [address], [place] [address] Jun, [facility] [address] [id number] [address] [place] [address], [place] [address] Jun, [facility] [address] [id number] [address] [place] [address], [place] [address] Aug, [facility] [address] [id number] [address] [place] [address], [place] [address] Aug, [facility] [address] [id number] [address] [place] [address], [place] [address] Aug, [facility] [address] [id number] [address] [place] [address], [place] [address] 29 Jul, 2010 [facility] [address] [id number] [address] [place] [address], [place] [address] Jul, [facility] [address] [id number] [address] [place] [address], [place] [address] Jul, [facility] [address] [id number] [address] [place] [address], [place] [address] Jul, [facility] [address] [id number] [address] [place] [address], [place] [address] Jul, [facility] [address] [id number] [address] [place] [address], [place] [address] 08 Jul, 2010 [facility] [address] [id number] [address] [place] [address], [place] [address] Jun, [facility] [address] [id number] [address] [place] [address], [place] [address] Apr, [facility] [address] [id number] [address] [place] [address] Feb, [facility] [address] [facility] [id number] [address] [place] [address] Oct, [facility] [address] [facility] [id number] [address] [place] [address] Sep, [facility] [address] [facility] [id number] [address] [place] [address] Aug, [facility] [address] [facility] [id number] [address] [place] [address] Aug, [facility] [address] [facility] [id number] [address] [place] [address] Aug, [facility] [address] [facility] [id number] [address] [place] [address] Jul, [facility] [address] [facility] [id number] [address] [place] [id number] Jun, IMMUNIZATIONS No Known Immunizations SOCIAL HISTORY Never Assessed REASON FOR VISIT EMR-[facility] [place]AN OF CARE VITAL SIGNS MEDICATIONS Unknown [...]
--- OUTSIDE RECORDS SUMMARY | 2020-02-22 17:28 | XMS REPORT ---
Author Author Marion Alexander Doctor Organization [facility] Address Unknown Phone Unavailable Care Team Providers Care Syrup Maker Cook Name Role Phone Migration, Doctor Unavailable Unavailable PROBLEMS Type Condition ICD9-CM Code QGT45-NO Code Onset Dates Condition S tatus SNOMED Code Problem History of anemia Z86.2 Active 27 2506707 Problem Dyspepsia R10.13 Active 983271505 Problem Neck pain M54.2 Active 69994130 Problem Cervical disc disease M50.90 Active 733775050 ALLERGIES No Information ENCOUNTERS Encounter Location Date Diagnosis [facility] [address] [facility] [id number] [address] [place] [phone] Dec, [facility] [address] [facility] [id number] [address] [place] [phone] Nov, Cervical disc disease M50.90 [facility] [address] [facility] [id number] [address] [place] [phone] Oct, Cervical disc disease M50.90 [facility] [address] [facility] [id number] [address] [place] [phone] Sep, [facility] [address] [facility] [id number] [address] [place] [phone] Sep, Cervical disc disease M50.90 [facility] [address] [facility] [id number] [address] [place] [id number] Aug, Cervical disc disease M50.90 [facility] [address] [facility] [id number] [address] [place] [phone] Jul, Cervical disc disease M50.90 [facility] [address] [facility] [id number] [address] [place] [phone] Jun, Acute recurrent pansinusitis J01.41 and Cervical disc disease M50.90 [facility] [address] [id number] [address] [place] [phone] Jun, Cervical disc disease M50.90 [facility] [address] [id number] [address] [place] [id number] May, Cervical disc disease M50.90 [facility] [address] [id number] [address] [place] [phone] Apr, Cervical disc disease M50.90 [facility] [address] [id number] [address] [place] [phone] Mar, Cervical disc disease M50.90 [facility] [address] [id number] [address] [place] [phone] Mar, [facility] [address] [id number] [address] [place] [phone] Mar, Cervical disc disease M50.90 [facility] [address] [id number] [address] [place] [address] Feb, Cervical disc disease M50.90 [facility] [address] [id number] [address] [place] [id number] January, Cervical disc disease M50.90 [facility] [address] [id number] [address] [place] [id number] Dec, [facility] [address] [id number] [address] [place] [id number] Dec, Cervical disc disease M50.90 [facility] [address] [id number] [address] [place] [id number] Nov, Cervical disc disease M50.90 [facility] [address] [id number] [address] [place] [address] Nov, Cervical disc disease M50.90 [facility] [address] [id number] [address] [place] [id number] Oct, Cervical disc disease M50.90 [facility] [address] [id number] [address] [place] [phone] Oct, Cervical disc disease M50.90 and Acute non-recurrent maxillary sinusitis J01.00 [facility] [address] [facility] [id number] [address] [place] [phone] Sep, Cervical disc disease M50.90 [facility] [address] [place] [id number] [address] [place] [phone] Sep, [facility] [address] [place] [id number] [place] [address] Sep, Fatigue, unspecified type R5 3.83 and Cough R05 [place] [address] [place] [id number] [place] [address] Aug, Cervical disc disease M50.90 [facility] [address] [address] Aug, Sore throat J02.9 ; Canker s ore K12.0 and History of anemia Z86.2 [facility] [address] [place] [id number] [address] [place] [address] Jul, Cervical disc disease M50.90 [place] [address] [place] [place] [id number] [address] [place] [phone] Jun, Cervical disc disease M50.90 [facility] [address] [place] [id number] [address] [place] [id number] Jun, Cervical disc disease M50.90 [facility] [address] [place] [id number] [address] [place] [id number] May, Cervical disc disease M50.90 [facility] [address] [place] [id number] [address] [place] [phone] Apr, Cervical disc disease M50.90 [facility] [address] [place] [place] [id number] [address] [place] [id number] Apr, [facility] [address] [place] [place] [id number] [address] [place] [phone] Feb, Cervical disc disease M50.90 [facility] [address] [facility] [id number] [address] [place] [id number] January, Cervical disc disease M50.90 [facility] [address] [facility] [id number] [address] [place] [phone] Nov, [facility] [address] [facility] [id number] [address] [place] [id number] Nov, Cervical disc disease M50.90 [facility] [address] [facility] [id number] [address] [place] [phone] Nov, Acute cystitis with hematuri a N30.01 and Dysuria R30.0 [facility] [address] [facility] [id number] [address] [place] [phone] Oct, Cervical disc disease M50.90 and Acute non-recurrent frontal sinusitis J01.10 [facility] [address] [facility] [id number] [address] [place] [phone] Sep, Neck pain M54.2 [facility] [address] [facility] [id number] [address] [place] [phone] Sep, [facility] [address] [place] [id number] [place] [phone] Aug, Cervical disc disease M50.90 [facility] [address] [facility] [id number] [address] [place] [phone] Jul, [facility] [address] [facility] [id number] [address] [place] [phone] Jun, [facility] [address] [facility] [id number] [address] [place] [phone] May, [place] [address] [place] [id number] [place] [phone] May, Screening for diabetes melli tus Z13.1 ; Chronic fatigue R53.82 and Edema, unspecified type R60.9 [facility] [address] [id number] [address] [place] [address], [place] [address] Apr, Neck pain M54.2 [facility] [address] [id number] [address] [place] [address], [place] [address] Mar, [facility] [address] [id number] [address] [place] [address], [place] [address] Mar, Neck pain M54.2 [facility] [address] [id number] [address] [place] [address], [place] [address] Feb, Cervical disc disease M50.90 [facility] [address] [id number] [address] [place] [address], [place] [address] Feb, Cervical disc disease M50.90 [facility] [address] [id number] [address] [place] [address], [place] [address] January, [facility] [address] [id number] [address] [place] [phone] January, [facility] [address] [id number] [address] [place] [id number] January, Cervical disc disease M50.90 [facility] [address] [id number] [address] [place] [address], [place] [address] January, [facility] [address] [id number] [address] [place] [phone] January, [facility] [address] [id number] [address] [place] [phone] Dec, Cervical disc disease M50.90 [facility] [address] [id number] [address] [place] [id number] Nov, Cervical disc disease M50.90 [facility] [address] [id number] [address] [place] [id number] Oct, Cervical disc disease M50.90 [facility] [address] [id number] [address] [place] [id number] Sep, Cervical disc disease M50.90 [facility] [address] [id number] [address] [place] [id number] 16 Aug, 2015 Dental caries K02.9 and Enco unter for dental examination Z01.20 [facility] [address] [id number] [address] [place] [phone] Aug, [facility] [address] [id number] [address] [place] [phone] Aug, [facility] [address] [id number] [address] [place] [id number] Aug, Encounter for dental examina tion Z01.20 [facility] [address] [id number] [address] [place] [phone] Jul, [facility] [address] [id number] [address] [place] [phone] Jun, Sinusitis J32.9 and Cervical disc disease M50.90 [facility] [address] [id number] [address] [place] [phone] Jun, [facility] [address] [id number] [address] [place] [phone] 24 May, 2015 [facility] [address] [id number] [address] [place] [phone] May, [facility] [address] [id number] [address] [place] [phone] May, [facility] [address] [id number] [address] [place] [id number] May, [facility] [address] [id number] [address] [place] [phone] Apr, Cervical spondylosis without myelopathy 721.0 [facility] [address] [id number] [address] [place] [phone] Mar, [facility] [address] [id number] [address] [place] [phone] January, Cervical spondylosis without myelopathy 721.0 [facility] [address] [id number] [address] [place] [phone] Dec, [facility] [address] [id number] [address] [place] [phone] Dec, [facility] [address] [id number] [address] [place] [phone] Dec, [facility] [address] [id number] [address] [place] [phone] Nov, [facility] [address] [id number] [address] [place] [phone] Nov, [facility] [address] [id number] [address] [place] [phone] Oct, [facility] [address] [id number] [address] [place] [phone] Oct, [facility] [address] [id number] [address] [place] [phone] Oct, [facility] [address] [id number] [address] [place] [phone] Oct, [facility] [address] [id number] [address] [place] [phone] Oct, [facility] [address] [id number] [address] [place] [phone] Oct, 2014 [facility] [address] [id number] [address] [place] [phone] Oct, [facility] [address] [id number] [address] [place] [phone] Oct, [facility] [address] [id number] [address] [place] [phone] Oct, [facility] [address] [id number] [address] [place] [phone] Oct, [facility] [address] [id number] [address] [place] [address], [place] [address] Sep, [facility] [address] [id number] [address] [place] [address], [place] [address] Sep, [facility] [address] [id number] [address] [place] [address], [place] [address] Sep, [facility] [address] [id number] [address] [place] [address], [place] [address] Sep, [facility] [address] [id number] [address] [place] [address], [place] [address] Sep, [facility] [address] [id number] [address] [place] [address], [place] [address] Sep, [facility] [address] [id number] [address] [place] [address], [place] [address] Sep, [facility] [address] [id number] [address] [place] [address], [place] [address] Sep, [facility] [address] [id number] [address] [place] [address], [place] [address] Sep, [facility] [address] [id number] [address] [place] [address], [place] [address] Aug, [facility] [address] [id number] [address] [place] [address], [place] [address] Aug, [facility] [address] [id number] [address] [place] [address], [place] [address] Aug, [facility] [address] [id number] [address] [place] [address], [place] [address] Aug, [facility] [address] [id number] [address] [place] [address], [place] [address] Jul, [facility] [address] [id number] [address] [place] [address], [place] [address] Jul, [facility] [address] [id number] [address] [place] [address], [place] [address] Jul, [facility] [address] [id number] [address] [place] [address], [place] [address] Jul, [facility] [address] [id number] [address] [place] [phone] Jul, [facility] [address] [id number] [address] [place] [address], [place] [address] Jul, [facility] [address] [id number] [address] [place] [id number] Jul, [facility] [address] [id number] [address] [place] [address], [place] [address] Jul, [facility] [address] [id number] [address] [place] [address], [place] [address] Jun, [facility] [address] [id number] [address] [place] [address], [place] [address] Jun, [facility] [address] [id number] [address] [place] [address], [place] [address] 20 Jun, 2014 [facility] [address] [id number] [address] [place] [address], [place] [address] 20 Jun, 2014 [facility] [address] [id number] [address] [place] [address], [place] [address] 16 Jun, 2014 [facility] [address] [id number] [address] [place] [phone] 15 Jun, 2014 [facility] [address] [id number] [address] [place] [id number] 15 Jun, 2014 [facility] [address] [id number] [address] [place] [address], [place] [address] 14 Jun, 2014 [facility] [address] [id number] [address] [place] [phone] 14 Jun, 2014 [facility] [address] [id number] [address] [place] [address], [place] [address] 11 Jun, 2014 [facility] [address] [id number] [facility] [place] [address] Jun, [facility] [address] [id number] [facility] [place] [address] May, [facility] [address] [id number] [address] [place] [address], [place] [address] May, [facility] [address] [id number] [address] [place] [address], [place] [address] May, [facility] [address] [id number] [address] [place] [address], [place] [address] May, [facility] [address] [id number] [address] [place] [address], [place] [address] May, [facility] [address] [id number] [address] [place] [address], [place] [address] Apr, [facility] [address] [id number] [address] [place] [address], [place] [address] Apr, [facility] [address] [id number] [address] [place] [address], [place] [address] Apr, [facility] [address] [id number] [address] [place] [address], [place] [address] Apr, [facility] [address] [id number] [address] [place] [address], [place] [address] Apr, [facility] [address] [id number] [address] [place] [address], [place] [address] Apr, [facility] [address] [id number] [address] [place] [address], [place] [address] Mar, [facility] [address] [id number] [address] [place] [address], [place] [address] Mar, [facility] [address] [id number] [address] [place] [address], [place] [address] Mar, [facility] [address] [id number] [address] [place] [address], [place] [address] Mar, [facility] [address] [id number] [facility] [place] [address] Mar, [facility] [address] [id number] [address] [place] [address], [place] [address] Mar, [facility] [address] [id number] [address] [place] [address], [place] [address] Feb, [facility] [address] [id number] [address] [place] [address], [place] [address] Feb, [facility] [address] [id number] [address] [place] [address], [place] [address] Feb, [facility] [address] [id number] [address] [place] [address], [place] [address] Feb, [facility] [address] [id number] [address] [place] [address], [place] [address] Feb, [facility] [address] [id number] [address] [place] [address], [place] [address] Feb, [facility] [address] [id number] [address] [place] [address], [place] [address] Feb, [facility] [address] [id number] [address] [place] [address], [place] [address] Feb, [facility] [address] [id number] [address] [place] [address], [place] [address] January, [facility] [address] [id number] [address] [place] [address], [place] [address] January, [facility] [address] [id number] [address] [place] [address], [place] [address] January, [facility] [address] [id number] [address] [place] [address], [place] [address] January, [facility] [address] [id number] [address] [place] [address], [place] [address] January, [facility] [address] [id number] [address] [place] [address], [place] [address] January, [facility] [address] [id number] [address] [place] [address], [place] [address] January, [facility] [address] [id number] [address] [place] [address], [place] [address] January, [facility] [address] [id number] [address] [place] [address], [place] [address] Dec, [facility] [address] [id number] [address] [place] [address], [place] [address] Dec, [facility] [address] [id number] [address] [place] [address], [place] [address] Dec, [facility] [address] [id number] [address] [place] [address], [place] [address] Dec, [facility] [address] [id number] [address] [place] [address], [place] [address] Dec, [facility] [address] [id number] [address] [place] [address], [place] [address] Dec, [facility] [address] [id number] [address] [place] [address], [place] [address] Nov, [facility] [address] [id number] [address] [place] [address], [place] [address] Nov, [facility] [address] [id number] [address] [place] [address], [place] [address] Nov, [facility] [address] [id number] [address] [place] [address], [place] [address] Nov, [facility] [address] [id number] [address] [place] [address], [place] [address] Nov, [facility] [address] [id number] [address] [place] [address], [place] [address] Nov, [facility] [address] [id number] [address] [place] [address], [place] [address] Nov, [facility] [address] [id number] [address] [place] [address], [place] [address] Nov, [facility] [address] [id number] [address] [place] [address], [place] [address] Oct, [facility] [address] [id number] [address] [place] [address], [place] [address] Oct, [facility] [address] [id number] [address] [place] [address], [place] [address] Sep, [facility] [address] [id number] [address] [place] [address], [place] [address] Sep, [facility] [address] [id number] [address] [place] [address], [place] [address] Sep, [facility] [address] [id number] [address] [place] [address], [place] [address] Sep, [facility] [address] [id number] [address] [place] [address], [place] [address] Aug, [facility] [address] [id number] [address] [place] [address], [place] [address] Aug, [facility] [address] [id number] [address] [place] [address], [place] [address] Aug, [facility] [address] [id number] [address] [place] [address], [place] [address] Aug, [facility] [address] [id number] [address] [place] [address], [place] [address] Jul, [facility] [address] [id number] [address] [place] [address], [place] [address] Jul, [facility] [address] [id number] [address] [place] [address], [place] [address] Jul, [facility] [address] [id number] [address] [place] [address], [place] [address] Jul, [facility] [address] [id number] [address] [address] Jul, [facility] [address] [id number] [address] [place] [address], [place] [address] Jul, [facility] [facility] [address] [id number] [address] [place] [address], [place] [address] Jul, [facility] [address] [id number] [address] [place] [id number] Jul, [facility] [address] [id number] [address] [place] [id number] Jul, [facility] [address] [id number] [address] [place] [address], [place] [address] Jul, [facility] [address] [id number] [address] [place] [phone] Jul, [facility] [address] [id number] [address] [place] [address], [place] [address] Jul, [facility] [address] [id number] [address] [place] [id number] Jun, [facility] [address] [id number] [address] [place] [id number] Jun, [facility] [address] [id number] [address] [place] [id number] Jun, [facility] [address] [id number] [address] [place] [id number] Jun, [facility] [address] [id number] [address] [place] [id number] 16 Jun, 2013 [facility] [address] [id number] [address] [place] [address], [place] [address] 14 Jun, 2013 [facility] [address] [id number] [address] [place] [id number] Jun, [facility] [address] [id number] [address] [place] [id number] Jun, [facility] [address] [id number] [address] [place] [address], [place] [address] 15 May, 2013 [facility] [address] [id number] [address] [place] [address], [place] [address] 05 May, 2013 [facility] [address] [id number] [address] [place] [address], [place] [address] May, [facility] [address] [id number] [address] [place] [address], [place] [address] Apr, [facility] [address] [id number] [address] [place] [address], [place] [address] Apr, [facility] [address] [id number] [address] [place] [address], [place] [address] Mar, [facility] [address] [id number] [address] [place] [address], [place] [address] Mar, [facility] [address] [id number] [address] [place] [address], [place] [address] Feb, [facility] [address] [id number] [address] [place] [address], [place] [address] January, [facility] [address] [id number] [address] [place] [address], [place] [address] January, [facility] [address] [id number] [address] [place] [address], [place] [address] January, [facility] [address] [id number] [address] [place] [address], [place] [address] January, [facility] [address] [id number] [address] [place] [address], [place] [address] January, [facility] [address] [id number] [address] [place] [address], [place] [address] Dec, [facility] [address] [id number] [address] [place] [address], [place] [address] Dec, [facility] [address] [id number] [address] [place] [address], [place] [address] Dec, [facility] [address] [id number] [address] [place] [address], [place] [address] Nov, [facility] [address] [id number] [address] [place] [address], [place] [address] 27 Oct, 2012 [facility] [address] [id number] [address] [place] [address], [place] [address] 18 Oct, 2012 [facility] [address] [id number] [address] [place] [address], [place] [address] 15 Oct, 2012 [facility] [address] [id number] [address] [place] [address], [place] [address] Sep, [facility] [address] [id number] [address] [place] [address], [place] [address] 16 Sep, 2012 [facility] [address] [id number] [address] [place] [address], [place] [address] 14 Aug, 2012 [facility] [address] [id number] [address] [place] [address], [place] [address] Aug, [facility] [address] [id number] [address] [place] [address], [place] [address] Aug, [facility] [address] [id number] [address] [place] [address], [place] [address] Aug, [facility] [address] [id number] [address] [place] [address], [place] [address] Jul, [facility] [address] [id number] [address] [place] [address], [place] [address] Jul, [facility] [address] [id number] [address] [place] [address], [place] [address] Jul, [facility] [address] [id number] [address] [place] [address], [place] [address] Jul, [facility] [address] [id number] [address] [place] [address], [place] [address] Jul, [facility] [address] [id number] [address] [place] [address], [place] [address] 15 Jun, 2012 [facility] [address] [id number] [address] [place] [address], [place] [address] 15 Jun, 2012 [facility] [address] [id number] [address] [place] [address], [place] [address] 10 Jun, 2012 [facility] [address] [id number] [address] [place] [address], [place] [address] 10 Jun, 2012 [facility] [address] [id number] [address] [place] [address], [place] [address] 10 May, 2012 [facility] [address] [id number] [address] [place] [address], [place] [address] Apr, [facility] [address] [id number] [address] [place] [address], [place] [address] Apr, [facility] [address] [id number] [address] [place] [address], [place] [address] Apr, [facility] [address] [id number] [address] [place] [address], [place] [address] Apr, [facility] [address] [id number] [address] [place] [address], [place] [address] January, [facility] [address] [id number] [address] [place] [address], [place] [address] January, [facility] [address] [id number] [address] [place] [address], [place] [address] Dec, [facility] [address] [id number] [address] [place] [address], [place] [address] Dec, [facility] [address] [id number] [address] [place] [address], [place] [address] Nov, [facility] [address] [id number] [address] [place] [address], [place] [address] Nov, [facility] [address] [id number] [address] [place] [address], [place] [address] Nov, [facility] [address] [id number] [address] [place] [address], [place] [address] Nov, [facility] [address] [id number] [address] [place] [address], [place] [address] Oct, [facility] [address] [id number] [address] [place] [address], [place] [address] Oct, [facility] [address] [id number] [address] [place] [address], [place] [address] Oct, [facility] [address] [id number] [address] [place] [address], [place] [address] Sep, [facility] [address] [id number] [address] [place] [address], [place] [address] Sep, [facility] [address] [id number] [address] [place] [address], [place] [address] Aug, [facility] [address] [id number] [address] [place] [address], [place] [address] Aug, [facility] [address] [id number] [address] [place] [address], [place] [address] Jul, [facility] [address] [id number] [address] [place] [address], [place] [address] Jul, [facility] [address] [id number] [address] [place] [address], [place] [address] Jul, [facility] [address] [id number] [address] [place] [address], [place] [address] Jun, [facility] [address] [id number] [address] [place] [address], [place] [address] 24 Jun, 2011 [facility] [address] [id number] [address] [place] [address], [place] [address] Jun, [facility] [address] [id number] [address] [place] [address], [place] [address] Jun, [facility] [address] [id number] [address] [place] [id number] 10 Jun, 2011 [facility] [address] [id number] [address] [place] [address], [place] [address] Jun, [facility] [address] [id number] [address] [place] [address] Aug, [facility] [address] [id number] [address] [place] [address], [place] [address] Aug, [facility] [address] [id number] [address] [place] [id number] Aug, [facility] [address] [id number] [address] [place] [address], [place] [address] Jul, [facility] [address] [id number] [address] [place] [address], [place] [address] Jul, [facility] [address] [id number] [address] [place] [address], [place] [address] Jul, [facility] [address] [id number] [address] [place] [address], [place] [address] Jul, [facility] [address] [id number] [address] [place] [id number] Jul, [facility] [address] [id number] [address] [place] [address], [place] [address] Jul, [facility] [address] [id number] [address] [place] [address] Jun, [facility] [address] [id number] [address] [place] [id number] Apr, [facility] [address] [id number] [address] [place] [address] Feb, [facility] [address] [id number] [address] [place] [id number] 10 Oct, 2009 [facility] [address] [id number] [address] [place] [address] 13 Sep, 2009 [facility] [address] [id number] [address] [place] [address] Aug, [facility] [address] [facility] [id number] [address] [place] [address] Aug, [facility] [address] [facility] [id number] [address] [place] [address] Aug, [facility] [address] [facility] [id number] [address] [place] [id number] Jul, [facility] [address] [facility] [id number] [address] [place] [id number] Jun, IMMUNIZATIONS No Known Immunizations SOCIAL HISTORY Never Assessed REASON FOR VISIT [place] [place] VITAL SIGNS MEDICATIONS Unknown [...]
--- OUTSIDE RECORDS SUMMARY | 2020-02-22 17:28 | XMS REPORT ---
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 Name Role Phone Migration, Doctor Unavailable Unavailable PROBLEMS Type Condition ICD9-CM Code [id number] Code Onset Dates Condition S tatus SNOMED Code Problem History of anemia Z86.2 Active 27 3169808 Problem Dyspepsia R10.13 Active 550425714 Problem Neck pain M54.2 Active 36682693 Problem Cervical disc disease M50.90 Active [id number] ALLERGIES No Information ENCOUNTERS Encounter Location Date Diagnosis [facility] [address] [facility] [id number] [address] [place] [phone] Dec, [facility] [address] [facility] [id number] [address] [place] [address] Nov, Cervical disc disease M50.90 [facility] [address] [facility] [id number] [address] [place] [address] Oct, Cervical disc disease M50.90 [facility] [address] [facility] [id number] [address] [place] [phone] Sep, [facility] [address] [facility] [id number] [address] [place] [address] Sep, Cervical disc disease M50.90 [facility] [address] [facility] [id number] [address] [place] [address] Aug, Cervical disc disease M50.90 [facility] [address] [facility] [id number] [address] [place] [address] Jul, Cervical disc disease M50.90 [facility] [address] [facility] [id number] [address] [place] [address] Jun, Acute recurrent pansinusitis J01.41 and Cervical disc disease M50.90 [facility] [address] [id number] [address] [place] [address] Jun, Cervical disc disease M50.90 [facility] [address] [id number] [address] [place] [address] May, Cervical disc disease M50.90 [facility] [address] [id number] [address] [place] [address] Apr, Cervical disc disease M50.90 [facility] [address] [id number] [address] [place] [address] Mar, Cervical disc disease M50.90 [facility] [address] [id number] [address] [place] [address] Mar, [facility] [address] [id number] [address] [place] [address] Mar, Cervical disc disease M50.90 [facility] [address] [id number] [address] [place] [address] Feb, Cervical disc disease M50.90 [facility] [address] [id number] [address] [place] [address] January, Cervical disc disease M50.90 [facility] [address] [id number] [address] [place] [address] Dec, [facility] [address] [id number] [address] [place] [address] Dec, Cervical disc disease M50.90 [facility] [address] [id number] [address] [place] [address] Nov, Cervical disc disease M50.90 [facility] [address] [id number] [address] [place] [address] Nov, Cervical disc disease M50.90 [facility] [address] [id number] [address] [place] [address] Oct, Cervical disc disease M50.90 [facility] [address] [id number] [address] [place] [address] Oct, Cervical disc disease M50.90 and Acute non-recurrent maxillary sinusitis J01.00 [facility] [address] [facility] [id number] [address] [place] [address] Sep, Cervical disc disease M50.90 [facility] [address] [place] [id number] [address] [place] [address] Sep, [facility] [address] [place] [id number] [place] [address] Sep, Fatigue, unspecified type R5 3.83 and Cough R05 [place] [address] [place] [id number] [place] [address] Aug, Cervical disc disease M50.90 [facility] [address] [address] Aug, Sore throat J02.9 ; Canker s ore K12.0 and History of anemia Z86.2 [facility] [address] [place] [id number] [address] [place] [address] Jul, Cervical disc disease M50.90 [place] [address] [place] [id number] [address] [place] [address] Jun, Cervical disc disease M50.90 [facility] [address] [place] [id number] [address] [place] [address] Jun, Cervical disc disease M50.90 [facility] [address] [place] [id number] [address] [place] [address] May, Cervical disc disease M50.90 [facility] [address] [place] [id number] [address] [place] [address] Apr, Cervical disc disease M50.90 [facility] [address] [place] [id number] [address] [place] [address] Apr, [facility] [address] [place] [id number] [address] [place] [address] Feb, Cervical disc disease M50.90 [facility] [address] [facility] [id number] [address] [place] [address] January, Cervical disc disease M50.90 [facility] [address] [facility] [id number] [address] [place] [address] Nov, [facility] [address] [facility] [id number] [address] [place] [address] Nov, Cervical disc disease M50.90 [facility] [address] [facility] [id number] [address] [place] [address] Nov, Acute cystitis with hematuri a N30.01 and Dysuria R30.0 [facility] [address] [facility] [id number] [address] [place] [address] Oct, Cervical disc disease M50.90 and Acute non-recurrent frontal sinusitis J01.10 [facility] [address] [facility] [id number] [address] [place] [address] Sep, Neck pain M54.2 [facility] [address] [facility] [id number] [address] [place] [address] Sep, [facility] [address] [place] [id number] [place] [address] Aug, Cervical disc disease M50.90 [facility] [address] [facility] [id number] [address] [place] [address] Jul, [facility] [address] [facility] [id number] [address] [place] [address] Jun, [facility] [address] [facility] [id number] [address] [place] [address] May, [place] [address] [place] [id number] [place] [address] May, Screening for diabetes melli tus Z13.1 ; Chronic fatigue R53.82 and Edema, unspecified type R60.9 [facility] [address] [id number] [address] [place] [address], [place] [address] Apr, Neck pain M54.2 [facility] [address] [id number] [address] [place] [address], [place] [address] Mar, [facility] [address] [id number] [address] [place] [address], [place] [address] Mar, Neck pain M54.2 [facility] [address] [id number] [address] [place] [address], [place] [address] Feb, Cervical disc disease M50.90 [facility] [address] [id number] [address] [place] [address], [place] [address] Feb, Cervical disc disease M50.90 [facility] [address] [id number] [address] [place] [address], [place] [address] January, [facility] [address] [id number] [address] [place] [address] January, [facility] [address] [id number] [address] [place] [address] January, Cervical disc disease M50.90 [facility] [address] [id number] [address] [place] [address], [place] [address] January, [facility] [address] [id number] [address] [place] [address] January, [facility] [address] [id number] [address] [place] [address] Dec, Cervical disc disease M50.90 [facility] [address] [id number] [address] [place] [address] Nov, Cervical disc disease M50.90 [facility] [address] [id number] [address] [place] [address] Oct, Cervical disc disease M50.90 [facility] [address] [id number] [address] [place] [address] Sep, Cervical disc disease M50.90 [facility] [address] [id number] [address] [place] [id number] 16 Aug, 2015 Dental caries K02.9 and Enco unter for dental examination Z01.20 [facility] [address] [id number] [address] [place] [address] Aug, [facility] [address] [id number] [address] [place] [address] Aug, [facility] [address] [id number] [address] [place] [id number] Aug, Encounter for dental examina tion Z01.20 [facility] [address] [id number] [address] [place] [address] Jul, [facility] [address] [id number] [address] [place] [address] Jun, Sinusitis J32.9 and Cervical disc disease M50.90 [facility] [address] [id number] [address] [place] [address] Jun, [facility] [address] [id number] [address] [place] [id number] 24 May, 2015 [facility] [address] [id number] [address] [place] [address] May, [facility] [address] [id number] [address] [place] [id number] May, [facility] [address] [id number] [address] [place] [address] May, [facility] [address] [id number] [address] [place] [address] Apr, Cervical spondylosis without myelopathy 721.0 [facility] [address] [id number] [address] [place] [address] Mar, [facility] [address] [id number] [address] [place] [phone] January, Cervical spondylosis without myelopathy 721.0 [facility] [address] [id number] [address] [place] [address] Dec, [facility] [address] [id number] [address] [place] [phone] Dec, [facility] [address] [id number] [address] [place] [address] Dec, [facility] [address] [id number] [address] [place] [phone] Nov, [facility] [address] [id number] [address] [place] [id number] Nov, [facility] [address] [id number] [address] [place] [phone] Oct, [facility] [address] [id number] [address] [place] [id number] Oct, [facility] [address] [id number] [address] [place] [id number] Oct, [facility] [address] [id number] [address] [place] [phone] Oct, [facility] [address] [id number] [address] [place] [id number] Oct, [facility] [address] [id number] [address] [place] [id number] Oct, 2014 [facility] [address] [id number] [address] [place] [id number] Oct, [facility] [address] [id number] [address] [place] [id number] Oct, [facility] [address] [id number] [address] [place] [id number] Oct, [facility] [address] [id number] [address] [place] [phone] Oct, [facility] [address] [id number] [address] [place] [address], [place] [address] Sep, [facility] [address] [id number] [address] [place] [address], [place] [address] Sep, [facility] [address] [id number] [address] [place] [address], [place] [address] Sep, [facility] [address] [id number] [address] [place] [address], [place] [address] Sep, [facility] [address] [id number] [address] [place] [address], [place] [address] Sep, [facility] [address] [id number] [address] [place] [address], [place] [address] Sep, [facility] [address] [id number] [address] [place] [address], [place] [address] Sep, [facility] [address] [id number] [address] [place] [address], [place] [address] Sep, [facility] [address] [id number] [address] [place] [address], [place] [address] Sep, [facility] [address] [id number] [address] [place] [address], [place] [address] Aug, [facility] [address] [id number] [address] [place] [address], [place] [address] Aug, [facility] [address] [id number] [address] [place] [address], [place] [address] Aug, [facility] [address] [id number] [address] [place] [address], [place] [address] Aug, [facility] [address] [id number] [address] [place] [address], [place] [address] Jul, [facility] [address] [id number] [address] [place] [address], [place] [address] Jul, [facility] [address] [id number] [address] [place] [address], [place] [address] Jul, [facility] [address] [id number] [address] [place] [address], [place] [address] Jul, [facility] [address] [id number] [address] [place] [phone] Jul, [facility] [address] [id number] [address] [place] [address], [place] [address] Jul, [facility] [address] [id number] [address] [place] [phone] Jul, [facility] [address] [id number] [address] [place] [address], [place] [address] Jul, [facility] [address] [id number] [address] [place] [address], [place] [address] Jun, [facility] [address] [id number] [address] [place] [address], [place] [address] Jun, [facility] [address] [id number] [address] [place] [address], [place] [address] 20 Jun, 2014 [facility] [address] [id number] [address] [place] [address], [place] [address] 20 Jun, 2014 [facility] [address] [id number] [address] [place] [address], [place] [address] 16 Jun, 2014 [facility] [address] [id number] [address] [place] [id number] 15 Jun, 2014 [facility] [address] [id number] [address] [place] [id number] 15 Jun, 2014 [facility] [address] [id number] [address] [place] [address], [place] [address] 14 Jun, 2014 [facility] [address] [id number] [address] [place] [id number] 14 Jun, 2014 [facility] [address] [id number] [address] [place] [address], [place] [address] 11 Jun, 2014 [facility] [address] [id number] [facility] [address] Jun, [facility] [address] [id number] [facility] [address] May, [facility] [address] [id number] [address] [place] [address], [place] [address] May, [facility] [address] [id number] [address] [place] [address], [place] [address] May, [facility] [address] [id number] [address] [place] [address], [place] [address] May, [facility] [address] [id number] [address] [place] [address], [place] [address] May, [facility] [address] [id number] [address] [place] [address], [place] [address] Apr, [facility] [address] [id number] [address] [place] [address], [place] [address] Apr, [facility] [address] [id number] [address] [place] [address], [place] [address] Apr, [facility] [address] [id number] [address] [place] [address], [place] [address] Apr, [facility] [address] [id number] [address] [place] [address], [place] [address] Apr, [facility] [address] [id number] [address] [place] [address], [place] [address] Apr, [facility] [address] [id number] [address] [place] [address], [place] [address] Mar, [facility] [address] [id number] [address] [place] [address], [place] [address] Mar, [facility] [address] [id number] [address] [place] [address], [place] [address] Mar, [facility] [address] [id number] [address] [place] [address], [place] [address] Mar, [facility] [address] [id number] [facility] [address] Mar, [facility] [address] [id number] [address] [place] [address], [place] [address] Mar, [facility] [address] [id number] [address] [place] [address], [place] [address] Feb, [facility] [address] [id number] [address] [place] [address], [place] [address] Feb, [facility] [address] [id number] [address] [place] [address], [place] [address] Feb, [facility] [address] [id number] [address] [place] [address], [place] [address] Feb, [facility] [address] [id number] [address] [place] [address], [place] [address] Feb, [facility] [address] [id number] [address] [place] [address], [place] [address] Feb, [facility] [address] [id number] [address] [place] [address], [place] [address] Feb, [facility] [address] [id number] [address] [place] [address], [place] [address] Feb, [facility] [address] [id number] [address] [place] [address], [place] [address] January, [facility] [address] [id number] [address] [place] [address], [place] [address] January, [facility] [address] [id number] [address] [place] [address], [place] [address] January, [facility] [address] [id number] [address] [place] [address], [place] [address] January, [facility] [address] [id number] [address] [place] [address], [place] [address] January, [facility] [address] [id number] [address] [place] [address], [place] [address] January, [facility] [address] [id number] [address] [place] [address], [place] [address] January, [facility] [address] [id number] [address] [place] [address], [place] [address] January, [facility] [address] [id number] [address] [place] [address], [place] [address] Dec, [facility] [address] [id number] [address] [place] [address], [place] [address] Dec, [facility] [address] [id number] [address] [place] [address], [place] [address] Dec, [facility] [address] [id number] [address] [place] [address], [place] [address] Dec, [facility] [address] [id number] [address] [place] [address], [place] [address] Dec, [facility] [address] [id number] [address] [place] [address], [place] [address] Dec, [facility] [address] [id number] [address] [place] [address], [place] [address] Nov, [facility] [address] [id number] [address] [place] [address], [place] [address] Nov, [facility] [address] [id number] [address] [place] [address], [place] [address] Nov, [facility] [address] [id number] [address] [place] [address], [place] [address] Nov, [facility] [address] [id number] [address] [place] [address], [place] [address] Nov, [facility] [address] [id number] [address] [place] [address], [place] [address] Nov, [facility] [address] [id number] [address] [place] [address], [place] [address] Nov, [facility] [address] [id number] [address] [place] [address], [place] [address] Nov, [facility] [address] [id number] [address] [place] [address], [place] [address] Oct, [facility] [address] [id number] [address] [place] [address], [place] [address] Oct, [facility] [address] [id number] [address] [place] [address], [place] [address] Sep, [facility] [address] [id number] [address] [place] [address], [place] [address] Sep, [facility] [address] [id number] [address] [place] [address], [place] [address] Sep, [facility] [address] [id number] [address] [place] [address], [place] [address] Sep, [facility] [address] [id number] [address] [place] [address], [place] [address] Aug, [facility] [address] [id number] [address] [place] [address], [place] [address] Aug, [facility] [address] [id number] [address] [place] [address], [place] [address] Aug, [facility] [address] [id number] [address] [place] [address], [place] [address] Aug, [facility] [address] [id number] [address] [place] [address], [place] [address] Jul, [facility] [address] [id number] [address] [place] [address], [place] [address] Jul, [facility] [address] [id number] [address] [place] [address], [place] [address] Jul, [facility] [address] [id number] [address] [place] [address], [place] [address] Jul, [facility] [address] [id number] [address] [address] Jul, [facility] [address] [id number] [address] [place] [address], [place] [address] Jul, [facility] [address] [id number] [address] [place] [address], [place] [address] Jul, [facility] [address] [id number] [address] [place] [address] Jul, [facility] [address] [id number] [address] [place] [address] Jul, [facility] [address] [id number] [address] [place] [address], [place] [address] Jul, [facility] [address] [id number] [address] [place] [id number] Jul, [facility] [address] [id number] [address] [place] [address], [place] [address] Jul, [facility] [address] [id number] [address] [place] [address] Jun, [facility] [address] [id number] [address] [place] [address] Jun, [facility] [address] [id number] [address] [place] [address] Jun, [facility] [address] [id number] [address] [place] [address] Jun, [facility] [address] [id number] [address] [place] [id number] 16 Jun, 2013 [facility] [address] [id number] [address] [place] [address], [place] [address] 14 Jun, 2013 [facility] [address] [id number] [address] [place] [address] Jun, [facility] [address] [id number] [address] [place] [address] Jun, [facility] [address] [id number] [address] [place] [address], [place] [address] 15 May, 2013 [facility] [address] [id number] [address] [place] [address], [place] [address] 05 May, 2013 [facility] [address] [id number] [address] [place] [address], [place] [address] May, [facility] [address] [id number] [address] [place] [address], [place] [address] Apr, [facility] [address] [id number] [address] [place] [address], [place] [address] Apr, [facility] [address] [id number] [address] [place] [address], [place] [address] Mar, [facility] [address] [id number] [address] [place] [address], [place] [address] Mar, [facility] [address] [id number] [address] [place] [address], [place] [address] Feb, [facility] [address] [id number] [address] [place] [address], [place] [address] January, [facility] [address] [id number] [address] [place] [address], [place] [address] January, [facility] [address] [id number] [address] [place] [address], [place] [address] January, [facility] [address] [id number] [address] [place] [address], [place] [address] January, [facility] [address] [id number] [address] [place] [address], [place] [address] January, [facility] [address] [id number] [address] [place] [address], [place] [address] Dec, [facility] [address] [id number] [address] [place] [address], [place] [address] Dec, [facility] [address] [id number] [address] [place] [address], [place] [address] Dec, [facility] [address] [id number] [address] [place] [address], [place] [address] Nov, [facility] [address] [id number] [address] [place] [address], [place] [address] 27 Oct, 2012 [facility] [address] [id number] [address] [place] [address], [place] [address] 18 Oct, 2012 [facility] [address] [id number] [address] [place] [address], [place] [address] 15 Oct, 2012 [facility] [address] [id number] [address] [place] [address], [place] [address] Sep, [facility] [address] [id number] [address] [place] [address], [place] [address] 16 Sep, 2012 [facility] [address] [id number] [address] [place] [address], [place] [address] 14 Aug, 2012 [facility] [address] [id number] [address] [place] [address], [place] [address] Aug, [facility] [address] [id number] [address] [place] [address], [place] [address] Aug, [facility] [address] [id number] [address] [place] [address], [place] [address] Aug, [facility] [address] [id number] [address] [place] [address], [place] [address] Jul, [facility] [address] [id number] [address] [place] [address], [place] [address] Jul, [facility] [address] [id number] [address] [place] [address], [place] [address] Jul, [facility] [address] [id number] [address] [place] [address], [place] [address] Jul, [facility] [address] [id number] [address] [place] [address], [place] [address] Jul, [facility] [address] [id number] [address] [place] [address], [place] [address] 15 Jun, 2012 [facility] [address] [id number] [address] [place] [address], [place] [address] 15 Jun, 2012 [facility] [address] [id number] [address] [place] [address], [place] [address] 10 Jun, 2012 [facility] [address] [id number] [address] [place] [address], [place] [address] 10 Jun, 2012 [facility] [address] [id number] [address] [place] [address], [place] [address] 10 May, 2012 [facility] [address] [id number] [address] [place] [address], [place] [address] Apr, [facility] [address] [id number] [address] [place] [address], [place] [address] Apr, [facility] [address] [id number] [address] [place] [address], [place] [address] Apr, [facility] [address] [id number] [address] [place] [address], [place] [address] Apr, [facility] [address] [id number] [address] [place] [address], [place] [address] January, [facility] [address] [id number] [address] [place] [address], [place] [address] January, [facility] [address] [id number] [address] [place] [address], [place] [address] Dec, [facility] [address] [id number] [address] [place] [address], [place] [address] Dec, [facility] [address] [id number] [address] [place] [address], [place] [address] Nov, [facility] [address] [id number] [address] [place] [address], [place] [address] Nov, [facility] [address] [id number] [address] [place] [address], [place] [address] Nov, [facility] [address] [id number] [address] [place] [address], [place] [address] Nov, [facility] [address] [id number] [address] [place] [address], [place] [address] Oct, [facility] [address] [id number] [address] [place] [address], [place] [address] Oct, [facility] [address] [id number] [address] [place] [address], [place] [address] Oct, [facility] [address] [id number] [address] [place] [address], [place] [address] Sep, [facility] [address] [id number] [address] [place] [address], [place] [address] Sep, [facility] [address] [id number] [address] [place] [address], [place] [address] Aug, [facility] [address] [id number] [address] [place] [address], [place] [address] Aug, [facility] [address] [id number] [address] [place] [address], [place] [address] Jul, [facility] [address] [id number] [address] [place] [address], [place] [address] Jul, [facility] [address] [id number] [address] [place] [address], [place] [address] Jul, [facility] [address] [id number] [address] [place] [address], [place] [address] Jun, [facility] [address] [id number] [address] [place] [address], [place] [address] 24 Jun, 2011 [facility] [address] [id number] [address] [place] [address], [place] [address] Jun, [facility] [address] [id number] [address] [place] [address], [place] [address] Jun, [facility] [address] [id number] [address] [place] [address] 10 Jun, 2011 [facility] [address] [id number] [address] [place] [address], [place] [address] Jun, [facility] [address] [id number] [address] [place] [address] Aug, [facility] [address] [id number] [address] [place] [address], [place] [address] Aug, [facility] [address] [id number] [address] [place] [address] Aug, [facility] [address] [id number] [address] [place] [address], [place] [address] Jul, [facility] [address] [id number] [address] [place] [address], [place] [address] Jul, [facility] [address] [id number] [address] [place] [address], [place] [address] Jul, [facility] [address] [id number] [address] [place] [address], [place] [address] Jul, [facility] [address] [id number] [address] [place] [address] Jul, [facility] [address] [id number] [address] [place] [address], [place] [address] Jul, [facility] [address] [id number] [address] [place] [address] Jun, [facility] [address] [id number] [address] [place] [address] Apr, [facility] [address] [id number] [address] [place] [address] Feb, [facility] [address] [id number] [address] [place] [id number] 10 Oct, 2009 [facility] [address] [id number] [address] [place] [id number] 13 Sep, 2009 [facility] [address] [id number] [address] [place] [address] Aug, [facility] [address] [facility] [id number] [address] [place] [address] Aug, [facility] [address] [facility] [id number] [address] [place] [id number] Aug, [facility] [address] [facility] [id number] [address] [place] [address] Jul, [facility] [address] [facility] [id number] [address] [place] [address] Jun, IMMUNIZATIONS No Known Immunizations SOCIAL HISTORY Never Assessed REASON FOR VISIT EMR-[facility] PLAN OF CARE [...]
--- OUTSIDE RECORDS SUMMARY | 2020-02-22 17:28 | XMS REPORT ---
Author Author Marion ORTIZ Organization [facility] Address [address] [place] [address] Care Team Providers Care Material Inspector Name Role Phone ANNA ORTIZ Unavailable PROBLEMS Type Condition ICD9-CM Code [id number] Code Onset Dates Condition S tatus SNOMED Code Problem Dyspepsia R10.13 Active 756664271 Problem History of anemia Z86.2 Active 27 1143522 Problem Cervical disc disease M50.90 Active 672992449 Problem Neck pain M54.2 Active [id number] ALLERGIES No Information ENCOUNTERS Encounter Location Date Diagnosis [facility] [address] [facility] [id number] [address] [place] [phone] Jul, Cervical disc disease M50.90 [facility] [address] [facility] [id number] [address] [place] [id number] Jun, Acute recurrent pansinusitis J01.41 and Cervical disc disease M50.90 [facility] [address] [facility] [id number] [address] [place] [address] Jun, Cervical disc disease M50.90 [facility] [address] [facility] [id number] [address] [place] [address] May, Cervical disc disease M50.90 [facility] [address] [facility] [id number] [address] [place] [address] Apr, Cervical disc disease M50.90 [facility] [address] [facility] [id number] [address] [place] [id number] Mar, Cervical disc disease M50.90 [facility] [address] [facility] [id number] [address] [place] [address] Mar, [facility] [address] [facility] [id number] [address] [place] [phone] Mar, Cervical disc disease M50.90 [facility] [address] [id number] [address] [place] [address] Feb, Cervical disc disease M50.90 [facility] [address] [id number] [address] [place] [address] January, Cervical disc disease M50.90 [facility] [address] [id number] [address] [place] [id number] Dec, [facility] [address] [id number] [address] [place] [id number] Dec, Cervical disc disease M50.90 [facility] [address] [id number] [address] [place] [id number] Nov, Cervical disc disease M50.90 [facility] [address] [id number] [address] [place] [id number] Nov, Cervical disc disease M50.90 [facility] [address] [id number] [address] [place] [id number] Oct, Cervical disc disease M50.90 [facility] [address] [id number] [address] [place] [id number] Oct, Cervical disc disease M50.90 and Acute non-recurrent maxillary sinusitis J01.00 [facility] [address] [id number] [address] [place] [id number] Sep, Cervical disc disease M50.90 [facility] [address] [id number] [address] [place] [id number] Sep, [facility] [address] [id number] [address] [place] [id number] Sep, Fatigue, unspecified type R5 3.83 and Cough R05 [facility] [address] [id number] [address] [place] [address] Aug, Cervical disc disease M50.90 [facility] [address] [facility] [id number] [address] [place] [phone] Aug, Sore throat J02.9 ; Canker s ore K12.0 and History of anemia Z86.2 [facility] [address] [facility] [id number] [address] [place] [address] Jul, Cervical disc disease M50.90 [facility] [address] [facility] [id number] [address] [place] [id number] Jun, Cervical disc disease M50.90 [facility] [address] [facility] [id number] [address] [place] [id number] Jun, Cervical disc disease M50.90 [facility] [address] [facility] [id number] [address] [place] [address] May, Cervical disc disease M50.90 [facility] [address] [place] [id number] [address] [place] [address] Apr, Cervical disc disease M50.90 [facility] [address] [facility] [id number] [address] [place] [id number] Apr, [facility] [address] [place] [id number] [address] [place] [id number] Feb, Cervical disc disease M50.90 [facility] [address] [place] [id number] [address] [place] [id number] January, Cervical disc disease M50.90 [facility] [address] [facility] [id number] [address] [place] [id number] Nov, [facility] [address] [facility] [id number] [address] [place] [id number] Nov, Cervical disc disease M50.90 [facility] [address] [facility] [id number] [address] [place] [id number] Nov, Acute cystitis with hematuri a N30.01 and Dysuria R30.0 [facility] [address] [facility] [id number] [address] [place] [address] Oct, Cervical disc disease M50.90 and Acute non-recurrent frontal sinusitis J01.10 [facility] [address] [facility] [id number] [address] [place] [id number] Sep, Neck pain M54.2 [facility] [address] [id number] [address] [place] [id number] Sep, [facility] [address] [id number] [address] [place] [address] Aug, Cervical disc disease M50.90 [facility] [address] [id number] [address] [place] [id number] Jul, [facility] [address] [facility] [id number] [address] [place] [id number] Jun, [facility] [address] [facility] [id number] [address] [place] [phone] May, [facility] [address] [facility] [id number] [address] [place] [id number] May, Screening for diabetes melli tus Z13.1 ; Chronic fatigue R53.82 and Edema, unspecified type R60.9 [facility] [address] [facility] [id number] [address] [place] [id number] Apr, Neck pain M54.2 [facility] [address] [facility] [id number] [address] [place] [id number] Mar, [facility] [address] [facility] [id number] [address] [place] [id number] Mar, Neck pain M54.2 [facility] [address] [facility] [id number] [address] [place] [id number] Feb, Cervical disc disease M50.90 [facility] [address] [facility] [id number] [address] [place] [id number] Feb, Cervical disc disease M50.90 [facility] [address] [facility] [id number] [address] [place] [id number] January, [facility] [address] [id number] [address] [place] [address] January, [facility] [address] [id number] [address] [place] [id number] January, Cervical disc disease M50.90 [facility] [address] [id number] [address] [place] [id number] January, [facility] [address] [id number] [address] [place] [id number] January, [facility] [address] [id number] [address] [place] [id number] Dec, Cervical disc disease M50.90 [facility] [address] [id number] [address] [place] [id number] Nov, Cervical disc disease M50.90 [facility] [address] [id number] [address] [place] [address] Oct, Cervical disc disease M50.90 [facility] [address] [id number] [address] [place] [address] Sep, Cervical disc disease M50.90 [facility] [address] [id number] [address] [place] [address] [id number] Aug, Dental caries K02.9 and Enco unter for dental examination Z01.20 [facility] [address] [id number] [address] [place] [phone] Aug, [facility] [address] [id number] [address] [place] [id number] Aug, [facility] [address] [id number] [address] [place] [address] [id number] Aug, Encounter for dental examina tion Z01.20 [facility] [address] [id number] [address] [place] [id number] Jul, [facility] [address] [id number] [address] [place] [phone] Jun, Sinusitis J32.9 and Cervical disc disease M50.90 [facility] [address] [id number] [address] [place] [id number] Jun, [facility] [address] [id number] [address] [place] [id number] May, [facility] [address] [id number] [address] [place] [id number] May, [facility] [address] [id number] [address] [place] [phone] May, [facility] [address] [id number] [address] [place] [id number] May, [facility] [address] [id number] [address] [place] [id number] Apr, Cervical spondylosis without myelopathy 721.0 [facility] [address] [id number] [address] [place] [id number] Mar, [facility] [address] [id number] [address] [place] [id number] January, Cervical spondylosis without myelopathy 721.0 [facility] [address] [id number] [address] [place] [id number] Dec, [facility] [address] [id number] [address] [place] [phone] 14 Dec, 2014 [facility] [address] [id number] [address] [place] [id number] 13 Dec, 2014 [facility] [address] [id number] [address] [place] [phone] Nov, [facility] [address] [id number] [address] [place] [phone] Nov, [facility] [address] [id number] [address] [place] [id number] Oct, [facility] [address] [id number] [address] [place] [address], [place] [address] Oct, [facility] [address] [id number] [address] [place] [address], [place] [address] Oct, 2014 [facility] [address] [id number] [address] [place] [address], [place] [address] Oct, 2014 [facility] [address] [id number] [address] [place] [address], [place] [address] Oct, 2014 [facility] [address] [id number] [address] [place] [address], [place] [address] Oct, 2014 [facility] [address] [id number] [address] [place] [address], [place] [address] Oct, 2014 [facility] [address] [id number] [address] [place] [address], [place] [address] Oct, [facility] [address] [id number] [address] [place] [address], [place] [address] Oct, [facility] [address] [id number] [address] [place] [address], [place] [address] Oct, [facility] [address] [id number] [address] [place] [address], [place] [address] Sep, [facility] [address] [id number] [address] [place] [address], [place] [address] Sep, [facility] [address] [id number] [address] [place] [address], [place] [address] Sep, [facility] [address] [id number] [address] [place] [address], [place] [address] Sep, [facility] [address] [id number] [address] [place] [address], [place] [address] Sep, [facility] [address] [id number] [address] [place] [address], [place] [address] Sep, [facility] [address] [id number] [address] [place] [address], [place] [address] Sep, [facility] [address] [id number] [address] [place] [address], [place] [address] Sep, [facility] [address] [id number] [address] [place] [address], [place] [address] Sep, [facility] [address] [id number] [address] [place] [address], [place] [address] Aug, [facility] [address] [id number] [address] [place] [address], [place] [address] Aug, [facility] [address] [id number] [address] [place] [address], [place] [address] Aug, [facility] [address] [id number] [address] [place] [address], [place] [address] Aug, [facility] [address] [id number] [address] [place] [address], [place] [address] Jul, [facility] [address] [id number] [address] [place] [address], [place] [address] Jul, [facility] [address] [id number] [address] [place] [address], [place] [address] Jul, [facility] [address] [id number] [address] [place] [address], [place] [address] Jul, [facility] [address] [id number] [address] [place] [address], [place] [address] Jul, [facility] [address] [id number] [address] [place] [address], [place] [address] Jul, [facility] [address] [id number] [address] [place] [address], [place] [address] Jul, [facility] [address] [id number] [address] [place] [address], [place] [address] Jul, [facility] [address] [id number] [address] [place] [address], [place] [address] Jun, 2014 [facility] [address] [id number] [address] [place] [address], [place] [address] 27 Jun, 2014 [facility] [address] [id number] [address] [place] [address], [place] [address] 20 Jun, 2014 [facility] [address] [id number] [address] [place] [address], [place] [address] 20 Jun, 2014 [facility] [address] [id number] [address] [place] [address], [place] [address] 16 Jun, 2014 [facility] [address] [id number] [address] [place] [address], [place] [address] 15 Jun, 2014 [facility] [address] [id number] [address] [place] [address], [place] [address] 15 Jun, 2014 [facility] [address] [id number] [address] [place] [address], [place] [address] 14 Jun, 2014 [facility] [address] [id number] [address] [place] [address], [place] [address] 14 Jun, 2014 [facility] [address] [id number] [address] [place] [address], [place] [address] 11 Jun, 2014 [facility] [address] [id number] [address] [place] [address], [place] [address] 11 Jun, 2014 [facility] [address] [id number] [address] [place] [address], [place] [address] 24 May, 2013 [facility] [address] [id number] [address] [place] [address], [place] [address] 24 Sep, 2013 [facility] [address] [id number] [address] [place] [address], [place] [address] 08 Sep, 2013 [facility] [address] [id number] [address] [place] [address], [place] [address] 02 Sep, 2013 [facility] [address] [id number] [address] [place] [address], [place] [address] 02 May, 2013 [facility] [address] [id number] [facility] [place] [address] Apr, [facility] [address] [id number] [address] [place] [address], [place] [address] Apr, [facility] [address] [id number] [address] [place] [address], [place] [address] Apr, [facility] [address] [id number] [address] [place] [address], [place] [address] Apr, [facility] [address] [id number] [address] [place] [address], [place] [address] Apr, [facility] [address] [id number] [address] [place] [address], [place] [address] Apr, [facility] [address] [id number] [address] [place] [address], [place] [address] Mar, [facility] [address] [id number] [address] [place] [address], [place] [address] Mar, [facility] [address] [id number] [address] [place] [address], [place] [address] Mar, [facility] [address] [id number] [address] [place] [address], [place] [address] Mar, [facility] [address] [id number] [address] [place] [address], [place] [address] Mar, [facility] [address] [id number] [address] [place] [address], [place] [address] Mar, [facility] [address] [id number] [address] [place] [address], [place] [address] Feb, [facility] [address] [id number] [address] [place] [address], [place] [address] Feb, [facility] [address] [id number] [address] [place] [address], [place] [address] Feb, [facility] [address] [id number] [address] [place] [address], [place] [address] Feb, [facility] [address] [id number] [address] [place] [address], [place] [address] Feb, [facility] [address] [id number] [address] [place] [address], [place] [address] Feb, [facility] [address] [id number] [address] [place] [address], [place] [address] Feb, [facility] [address] [id number] [address] [place] [address], [place] [address] Feb, [facility] [address] [id number] [address] [place] [address], [place] [address] January, [facility] [address] [id number] [address] [place] [address], [place] [address] January, [facility] [address] [id number] [address] [place] [address], [place] [address] January, [facility] [address] [id number] [address] [place] [address], [place] [address] January, [facility] [address] [id number] [address] [place] [address], [place] [address] January, [facility] [address] [id number] [address] [place] [address], [place] [address] January, [facility] [address] [id number] [address] [place] [address], [place] [address] January, [facility] [address] [id number] [address] [place] [address], [place] [address] January, [facility] [address] [id number] [address] [place] [address], [place] [address] Dec, [facility] [address] [id number] [address] [place] [address], [place] [address] Dec, [facility] [address] [id number] [address] [place] [address], [place] [address] Dec, [facility] [address] [id number] [address] [place] [address], [place] [address] Dec, [facility] [address] [id number] [facility] [place] [address] Dec, [facility] [address] [id number] [address] [place] [address], [place] [address] Dec, [facility] [address] [id number] [address] [place] [address], [place] [address] Nov, [facility] [address] [id number] [address] [place] [address], [place] [address] Nov, [facility] [address] [id number] [address] [place] [address], [place] [address] Nov, [facility] [address] [id number] [address] [place] [address], [place] [address] Nov, [facility] [address] [id number] [address] [place] [address], [place] [address] Nov, [facility] [address] [id number] [address] [place] [address], [place] [address] Nov, [facility] [address] [id number] [address] [place] [address], [place] [address] Nov, [facility] [address] [id number] [address] [place] [address], [place] [address] Nov, [facility] [address] [id number] [address] [place] [address], [place] [address] Oct, [facility] [address] [id number] [address] [place] [address], [place] [address] Oct, [facility] [address] [id number] [address] [place] [address], [place] [address] Sep, [facility] [address] [id number] [address] [place] [address], [place] [address] Sep, [facility] [address] [id number] [address] [place] [address], [place] [address] Sep, [facility] [address] [id number] [address] [place] [address], [place] [address] Sep, [facility] [address] [id number] [address] [place] [address], [place] [address] Aug, [facility] [address] [id number] [address] [place] [address], [place] [address] Aug, [facility] [address] [id number] [address] [place] [address], [place] [address] Aug, [facility] [address] [id number] [address] [place] [address], [place] [address] Aug, [facility] [address] [id number] [address] [place] [address], [place] [address] Jul, [facility] [address] [id number] [address] [place] [address], [place] [address] Jul, [facility] [address] [id number] [address] [place] [address], [place] [address] Jul, [facility] [address] [id number] [address] [place] [address], [place] [address] Jul, [facility] [address] [id number] [address] [place] [address], [place] [address] Jul, [facility] [address] [id number] [address] [place] [address], [place] [address] Jul, [facility] [address] [id number] [address] [place] [address], [place] [address] Jul, [facility] [address] [id number] [address] [place] [address], [place] [address] Jul, [facility] [address] [id number] [address] [place] [address], [place] [address] Jul, [facility] [address] [id number] [address] [place] [address], [place] [address] Jul, [facility] [address] [id number] [address] [place] [address], [place] [address] Jul, [facility] [address] [id number] [address] [place] [address], [place] [address] Jul, [facility] [address] [id number] [address] [place] [address], [place] [address] Jun, [facility] [address] [id number] [address] [place] [address], [place] [address] Jun, [facility] [address] [address] [id number] [address] [place] [address], [place] [address] Jun, [facility] [address] [id number] [address] [place] [address], [place] [address] Jun, [facility] [address] [id number] [address] [place] [address], [place] [address] 16 Jun, 2013 [facility] [address] [id number] [address] [place] [address], [place] [address] Jun, [facility] [address] [id number] [address] [place] [address], [place] [address] Jun, [facility] [address] [id number] [address] [place] [address], [place] [address] Jun, [facility] [address] [id number] [address] [place] [id number] 15 May, 2013 [facility] [address] [id number] [address] [place] [phone] 05 May, 2013 [facility] [address] [id number] [address] [place] [id number] 04 May, 2013 [facility] [address] [id number] [address] [place] [address], [place] [address] Apr, [facility] [address] [id number] [address] [place] [phone] Apr, [facility] [address] [id number] [address] [place] [address], [place] [address] Mar, [facility] [address] [id number] [address] [place] [address], [place] [address] Mar, [facility] [address] [id number] [address] [place] [address], [place] [address] Feb, [facility] [address] [id number] [address] [place] [address], [place] [address] January, [facility] [address] [id number] [address] [place] [address], [place] [address] January, [facility] [address] [id number] [address] [place] [address], [place] [address] January, [facility] [address] [id number] [address] [place] [address], [place] [address] January, [facility] [address] [id number] [address] [place] [address], [place] [address] January, [facility] [address] [id number] [address] [place] [address], [place] [address] Dec, [facility] [address] [id number] [address] [place] [address], [place] [address] Dec, [facility] [address] [id number] [address] [place] [address], [place] [address] Dec, [facility] [address] [id number] [address] [place] [address], [place] [address] Nov, [facility] [address] [id number] [address] [place] [address], [place] [address] Oct, [facility] [address] [id number] [address] [place] [address], [place] [address] Oct, [facility] [address] [id number] [address] [place] [address], [place] [address] Oct, [facility] [address] [id number] [address] [place] [address], [place] [address] Sep, [facility] [address] [id number] [address] [place] [address], [place] [address] Sep, [facility] [address] [id number] [address] [place] [address], [place] [address] 14 Aug, 2012 [facility] [address] [id number] [address] [place] [address], [place] [address] 14 Aug, 2012 [facility] [address] [id number] [address] [place] [address], [place] [address] 11 Aug, 2012 [facility] [address] [id number] [address] [place] [address], [place] [address] Aug, [facility] [address] [id number] [address] [place] [address], [place] [address] Jul, [facility] [address] [id number] [address] [place] [address], [place] [address] Jul, [facility] [address] [id number] [address] [place] [address], [place] [address] Jul, [facility] [address] [id number] [address] [place] [address], [place] [address] Jul, [facility] [address] [id number] [address] [place] [address], [place] [address] Jul, [facility] [address] [id number] [address] [place] [address], [place] [address] 15 Jun, 2012 [facility] [address] [id number] [address] [place] [id number] 15 Jun, 2012 [facility] [address] [id number] [address] [place] [id number] 10 Jun, 2012 [facility] [address] [id number] [address] [place] [address], [place] [address] 10 Jun, 2012 [facility] [address] [id number] [address] [place] [address], [place] [address] 10 May, 2012 [facility] [address] [id number] [address] [place] [id number] 13 Apr, 2012 [facility] [address] [id number] [address] [place] [phone] Apr, [facility] [address] [id number] [address] [place] [address], [place] [address] Apr, [facility] [address] [id number] [address] [place] [address], [place] [address] Apr, [facility] [address] [id number] [address] [place] [address], [place] [address] January, [facility] [address] [id number] [address] [place] [address], [place] [address] January, [facility] [address] [id number] [address] [place] [address], [place] [address] Dec, [facility] [address] [id number] [address] [place] [address], [place] [address] Dec, [facility] [address] [id number] [address] [place] [address], [place] [address] Nov, [facility] [address] [id number] [address] [place] [address], [place] [address] Nov, [facility] [address] [id number] [address] [place] [address], [place] [address] Nov, [facility] [address] [id number] [address] [place] [address], [place] [address] Nov, [facility] [address] [id number] [address] [place] [address], [place] [address] Oct, [facility] [address] [id number] [address] [place] [address], [place] [address] Oct, [facility] [address] [id number] [address] [place] [address], [place] [address] Oct, [facility] [address] [id number] [address] [place] [address], [place] [address] Sep, [facility] [address] [id number] [address] [place] [address], [place] [address] Sep, [facility] [address] [id number] [address] [place] [address], [place] [address] Aug, [facility] [address] [id number] [address] [place] [address], [place] [address] Aug, [facility] [address] [id number] [address] [place] [address], [place] [address] 15 Jul, 2011 [facility] [address] [id number] [address] [place] [address], [place] [address] Jul, [facility] [address] [id number] [address] [place] [address], [place] [address] Jul, [facility] [address] [id number] [address] [place] [address], [place] [address] Jun, [facility] [address] [id number] [address] [place] [address], [place] [address] 24 Jun, 2011 [facility] [address] [id number] [address] [place] [address], [place] [address] Jun, [facility] [address] [id number] [address] [place] [address], [place] [address] Jun, [facility] [address] [id number] [address] [place] [address], [place] [address] Jun, [facility] [address] [id number] [address] [place] [address], [place] [address] Jun, [facility] [address] [id number] [address] [place] [address], [place] [address] Aug, [facility] [address] [id number] [address] [place] [address], [place] [address] Aug, [facility] [address] [id number] [address] [place] [address], [place] [address] Aug, [facility] [address] [id number] [address] [place] [address], [place] [address] Jul, [facility] [address] [id number] [address] [place] [address], [place] [address] Jul, [facility] [address] [id number] [address] [place] [phone] Jul, [facility] [address] [id number] [address] [place] [phone] Jul, [facility] [address] [id number] [address] [place] [phone] Jul, [facility] [address] [id number] [address] [place] [id number] Jul, [facility] [address] [id number] [address] [place] [phone] Jun, [facility] [address] [id number] [address] [place] [id number] Apr, [facility] [address] [id number] [address] [place] [phone] Feb, [facility] [address] [id number] [address] [place] [phone] Oct, [facility] [address] [id number] [address] [place] [id number] Sep, [facility] [address] [id number] [address] [place] [phone] Aug, [facility] [address] [id number] [address] [place] [phone] Aug, [facility] [address] [id number] [address] [place] [phone] Aug, [facility] [address] [id number] [address] [place] [phone] Jul, [facility] [address] [id number] [address] [place] [phone] Jun, IMMUNIZATIONS No Known Immunizations SOCIAL HISTORY Never Assessed REASON FOR VISIT Controlled Med Refill 07/24 PLAN OF CARE VITAL SIGNS MEDICATIONS Medication Instructions Dosage Frequency Start Date End Date Duration S mario Tramadol HCl 50 mg Orally every 6 hrs 2 tablet as needed 6h Oct, 28 days Active RESULTS No Results PROCEDURES No Known [...]
[2020-02-22 17:29] LABS: PROTHROMBIN TIME PATIENT 13.2 SEC (12.2-14.7)
--- OUTSIDE RECORDS SUMMARY | 2020-02-22 17:29 | XMS REPORT ---
Author Author Marion TRUJILLO Organization [facility] Address [address] [place] [address] Care Team Providers Care Time Signal Wirer Name Role Phone ZACKARY TRUJILLO Unavailable PROBLEMS Type Condition ICD9-CM Code DVL15-HK Code Onset Dates Condition S tatus SNOMED Code Problem Dyspepsia R10.13 Active 916604868 Problem History of anemia Z86.2 Active 27 3231854 Problem Cervical disc disease M50.90 Active 589576482 Problem Neck pain M54.2 Active [id number] ALLERGIES No Information ENCOUNTERS Encounter Location Date Diagnosis [facility] [address] [facility] [id number] [address] [place] [address] Jun, Cervical disc disease M50.90 [facility] [address] [id number] [address] [place] [address] May, Cervical disc disease M50.90 [facility] [address] [facility] [id number] [address] [place] [address] Apr, Cervical disc disease M50.90 [facility] [address] [facility] [id number] [address] [place] [address] Mar, Cervical disc disease M50.90 [facility] [address] [facility] [id number] [address] [place] [address] Mar, [facility] [address] [facility] [id number] [address] [place] [address] Mar, Cervical disc disease M50.90 [facility] [address] [facility] [id number] [address] [place] [address] Feb, Cervical disc disease M50.90 [facility] [address] [facility] [id number] [address] [place] [address] January, Cervical disc disease M50.90 [facility] [address] [facility] [id number] [address] [place] [address] Dec, [facility] [address] [facility] [id number] [address] [place] [address] Dec, Cervical disc disease M50.90 [facility] [address] [facility] [id number] [address] [place] [address] Nov, Cervical disc disease M50.90 [facility] [address] [facility] [id number] [address] [place] [address] Nov, Cervical disc disease M50.90 [facility] [address] [facility] [id number] [address] [place] [address] Oct, Cervical disc disease M50.90 [facility] [address] [place] [id number] [address] [place] [address] Oct, Cervical disc disease M50.90 and Acute non-recurrent maxillary sinusitis J01.00 [facility] [address] [place] [id number] [address] [place] [address] Sep, Cervical disc disease M50.90 [facility] [address] [id number] [address] [place] [address] Sep, [facility] [address] [place] [id number] [address] [place] [address] Sep, Fatigue, unspecified type R5 3.83 and Cough R05 [facility] [address] [place] [id number] [address] [place] [address] Aug, Cervical disc disease M50.90 [facility] [address] [place] [id number] [address] [place] [address] Aug, Sore throat J02.9 ; Canker s ore K12.0 and History of anemia Z86.2 [place] [address] [place] [id number] [address] [place] [address] Jul, Cervical disc disease M50.90 [facility] [address] [id number] [address] [place] [address] Jun, Cervical disc disease M50.90 [facility] [address] [id number] [address] [place] [address] Jun, Cervical disc disease M50.90 [facility] [address] [id number] [address] [place] [address] May, Cervical disc disease M50.90 [facility] [address] [id number] [address] [place] [address] Apr, Cervical disc disease M50.90 [facility] [address] [id number] [address] [place] [address] Apr, [facility] [address] [facility] [id number] [address] [place] [address] Feb, Cervical disc disease M50.90 [facility] [address] [facility] [id number] [address] [place] [address] January, Cervical disc disease M50.90 [facility] [address] [facility] [id number] [address] [place] [address] Nov, [facility] [address] [facility] [id number] [address] [place] [address] Nov, Cervical disc disease M50.90 [facility] [address] [facility] [id number] [address] [place] [address] Nov, Acute cystitis with hematuri a N30.01 and Dysuria R30.0 [facility] [address] [id number] [address] [place] [address] Oct, Cervical disc disease M50.90 and Acute non-recurrent frontal sinusitis J01.10 [facility] [address] [id number] [address] [place] [address] Sep, Neck pain M54.2 [facility] [address] [facility] [id number] [address] [place] [address] Sep, [facility] [address] [id number] [address] [place] [address] Aug, Cervical disc disease M50.90 [facility] [address] [id number] [address] [place] [address] Jul, [facility] [address] [id number] [address] [place] [address] Jun, [facility] [address] [id number] [address] [place] [address] May, [facility] [address] [id number] [address] [place] [address] May, Screening for diabetes emilio tunakia Z13.1 ; Chronic fatigue R53.82 and Edema, unspecified type R60.9 [facility] [address] [id number] [address] [place] [address] Apr, Neck pain M54.2 [facility] [address] [id number] [address] [place] [address] Mar, [facility] [address] [id number] [address] [place] [address] Mar, Neck pain M54.2 [facility] [address] [id number] [address] [place] [address] Feb, Cervical disc disease M50.90 [facility] [address] [id number] [address] [place] [address] Feb, Cervical disc disease M50.90 [facility] [address] [id number] [address] [place] [address] January, [facility] [address] [facility] [id number] [address] [place] [address] January, [facility] [address] [id number] [address] [place] [address] January, Cervical disc disease M50.90 [facility] [address] [id number] [address] [place] [address] January, [facility] [address] [id number] [address] [place] [address] January, [facility] [address] [id number] [address] [place] [address] Dec, Cervical disc disease M50.90 [facility] [address] [id number] [address] [place] [address] Nov, Cervical disc disease M50.90 [facility] [address] [id number] [address] [place] [address] Oct, Cervical disc disease M50.90 [facility] [address] [id number] [address] [place] [address] Sep, Cervical disc disease M50.90 [facility] [address] [id number] [address] [place] [id number] Aug, Dental caries K02.9 and Enco unter for dental examination Z01.20 [facility] [address] [id number] [address] [place] [address] Aug, [facility] [address] [id number] [address] [place] [address] Aug, [facility] [address] [id number] [address] [place] [id number] Aug, Encounter for dental examina tion Z01.20 [facility] [address] [id number] [address] [place] [address] Jul, [facility] [address] [id number] [address] [place] [address] Jun, Sinusitis J32.9 and Cervical disc disease M50.90 [facility] [address] [id number] [address] [place] [address] Jun, [facility] [address] [id number] [address] [place] [address] 24 May, 2015 [facility] [address] [id number] [address] [place] [address] May, [facility] [address] [id number] [address] [place] [address] May, [facility] [address] [id number] [address] [place] [address] May, [facility] [address] [id number] [address] [place] [address] Apr, Cervical spondylosis without myelopathy 721.0 [facility] [address] [id number] [address] [place] [address] Mar, [facility] [address] [id number] [address] [place] [address] January, Cervical spondylosis without myelopathy 721.0 [facility] [address] [id number] [address] [place] [address] Dec, [facility] [address] [id number] [address] [place] [address] Dec, [facility] [address] [id number] [address] [place] [address] Dec, [facility] [address] [id number] [address] [place] [address] Nov, [facility] [address] [id number] [address] [place] [address] Nov, [facility] [address] [id number] [address] [place] [address] Oct, [facility] [address] [id number] [address] [place] [address] Oct, [facility] [address] [id number] [address] [place] [address] Oct, [facility] [address] [id number] [address] [place] [address], [place] [address] 12 Oct, 2014 [facility] [address] [id number] [address] [place] [address], [place] [address] Oct, 2014 [facility] [address] [id number] [address] [place] [address], [place] [address] Oct, 2014 [facility] [address] [id number] [address] [place] [address], [place] [address] Oct, 2014 [facility] [address] [id number] [address] [place] [address], [place] [address] Oct, 2014 [facility] [address] [id number] [address] [place] [address], [place] [address] Oct, 2014 [facility] [address] [id number] [address] [place] [address], [place] [address] Oct, 2014 [facility] [address] [id number] [address] [place] [address], [place] [address] Sep, [facility] [address] [id number] [address] [place] [address], [place] [address] Sep, [facility] [address] [id number] [address] [place] [address], [place] [address] Sep, [facility] [address] [id number] [address] [place] [address], [place] [address] Sep, [facility] [address] [id number] [address] [place] [address], [place] [address] Sep, [facility] [address] [id number] [address] [place] [address], [place] [address] Sep, [facility] [address] [id number] [address] [place] [address], [place] [address] Sep, [facility] [address] [id number] [address] [place] [address], [place] [address] Sep, [facility] [address] [id number] [address] [place] [address], [place] [address] Sep, [facility] [address] [id number] [address] [place] [address], [place] [address] Aug, [facility] [address] [id number] [address] [place] [address], [place] [address] Aug, [facility] [address] [id number] [address] [place] [address], [place] [address] Aug, [facility] [address] [id number] [address] [place] [address], [place] [address] Aug, [facility] [address] [id number] [address] [place] [address], [place] [address] Jul, [facility] [address] [id number] [address] [place] [address], [place] [address] Jul, [facility] [address] [id number] [address] [place] [address], [place] [address] Jul, [facility] [address] [id number] [address] [place] [address], [place] [address] Jul, [facility] [address] [id number] [address] [place] [address], [place] [address] Jul, [facility] [address] [id number] [address] [place] [address], [place] [address] Jul, [facility] [address] [id number] [address] [place] [address], [place] [address] Jul, [facility] [address] [id number] [address] [place] [address], [place] [address] Jul, [facility] [address] [id number] [address] [place] [address], [place] [address] Jun, [facility] [address] [id number] [address] [place] [address], [place] [address] Jun, [facility] [address] [id number] [address] [place] [address], [place] [address] Jun, [facility] [address] [id number] [address] [place] [address], [place] [address] 20 Jun, 2014 [facility] [address] [id number] [address] [place] [address], [place] [address] 16 Jun, 2014 [facility] [address] [id number] [address] [place] [address], [place] [address] 15 Jun, 2014 [facility] [address] [id number] [address] [place] [address], [place] [address] 15 Jun, 2014 [facility] [address] [id number] [address] [place] [address], [place] [address] 14 Jun, 2014 [facility] [address] [id number] [address] [place] [address], [place] [address] 14 Jun, 2014 [facility] [address] [id number] [address] [place] [address], [place] [address] 11 Jun, 2014 [facility] [address] [id number] [address] [place] [address], [place] [address] 11 Jun, 2014 [facility] [address] [id number] [address] [place] [address], [place] [address] 24 May, 2013 [facility] [address] [id number] [address] [place] [address], [place] [address] 24 May, 2013 [facility] [address] [id number] [address] [place] [address], [place] [address] 08 May, 2014 [facility] [address] [id number] [address] [place] [address], [place] [address] 02 May, 2013 [facility] [address] [id number] [address] [place] [address], [place] [address] May, 2013 [facility] [address] [id number] [address] [place] [address], [place] [address] Apr, [facility] [address] [id number] [address] [place] [address], [place] [address] Apr, [facility] [address] [id number] [address] [place] [address], [place] [address] Apr, [facility] [address] [id number] [facility] [place] [address] Apr, [facility] [address] [id number] [facility] [place] [address] Apr, [facility] [address] [id number] [address] [place] [address], [place] [address] Apr, [facility] [address] [id number] [address] [place] [address], [place] [address] Mar, [facility] [address] [id number] [address] [place] [address], [place] [address] Mar, [facility] [address] [id number] [address] [place] [address], [place] [address] Mar, [facility] [address] [id number] [address] [place] [address], [place] [address] Mar, [facility] [address] [id number] [address] [place] [address], [place] [address] Mar, [facility] [address] [id number] [address] [place] [address], [place] [address] Mar, [facility] [address] [id number] [address] [place] [address], [place] [address] Feb, [facility] [address] [id number] [address] [place] [address], [place] [address] Feb, [facility] [address] [id number] [address] [place] [address], [place] [address] Feb, [facility] [address] [id number] [address] [place] [address], [place] [address] Feb, [facility] [address] [id number] [address] [place] [address], [place] [address] Feb, [facility] [address] [id number] [address] [place] [address], [place] [address] Feb, [facility] [address] [id number] [address] [place] [address], [place] [address] Feb, [facility] [address] [id number] [address] [place] [address], [place] [address] Feb, [facility] [address] [id number] [address] [place] [address], [place] [address] January, [facility] [address] [id number] [address] [place] [address], [place] [address] January, [facility] [address] [id number] [address] [place] [address], [place] [address] January, [facility] [address] [id number] [address] [place] [address], [place] [address] January, [facility] [address] [id number] [address] [place] [address], [place] [address] January, [facility] [address] [id number] [address] [place] [address], [place] [address] January, [facility] [address] [id number] [address] [place] [address], [place] [address] January, [facility] [address] [id number] [address] [place] [address], [place] [address] January, [facility] [address] [id number] [address] [place] [address], [place] [address] Dec, [facility] [address] [id number] [address] [place] [address], [place] [address] Dec, [facility] [address] [id number] [address] [place] [address], [place] [address] Dec, [facility] [address] [id number] [address] [place] [address], [place] [address] Dec, [facility] [address] [id number] [address] [place] [address], [place] [address] Dec, [facility] [address] [id number] [address] [place] [address], [place] [address] Dec, [facility] [address] [id number] [address] [place] [address], [place] [address] 31 Nov, 2013 [facility] [address] [id number] [address] [place] [address], [place] [address] Nov, [facility] [address] [id number] [facility] [address] Nov, [facility] [address] [id number] [address] [place] [address], [place] [address] Nov, [facility] [address] [id number] [address] [place] [address], [place] [address] Nov, [facility] [address] [id number] [address] [place] [address], [place] [address] Nov, [facility] [address] [id number] [address] [place] [address], [place] [address] Nov, [facility] [address] [id number] [address] [place] [address], [place] [address] Nov, [facility] [address] [id number] [address] [place] [address], [place] [address] Oct, [facility] [address] [id number] [address] [place] [address], [place] [address] Oct, [facility] [address] [id number] [address] [place] [address], [place] [address] Sep, [facility] [address] [id number] [address] [place] [address], [place] [address] Sep, [facility] [address] [id number] [address] [place] [address], [place] [address] Sep, [facility] [address] [id number] [address] [place] [address], [place] [address] Sep, [facility] [address] [id number] [address] [place] [address], [place] [address] Aug, [facility] [address] [id number] [address] [place] [address], [place] [address] Aug, [facility] [address] [id number] [address] [place] [address], [place] [address] Aug, [facility] [address] [id number] [address] [place] [address], [place] [address] Aug, [facility] [address] [id number] [address] [place] [address], [place] [address] Jul, [facility] [address] [id number] [address] [place] [address], [place] [address] Jul, [facility] [address] [id number] [address] [place] [address], [place] [address] Jul, [facility] [address] [id number] [address] [place] [address], [place] [address] Jul, [facility] [address] [id number] [address] [place] [address], [place] [address] Jul, [facility] [address] [id number] [address] [place] [address] Jul, [facility] [address] [id number] [address] [place] [address] Jul, [facility] [address] [id number] [address] [place] [address] Jul, [facility] [address] [id number] [address] [place] [address] Jul, [facility] [address] [id number] [address] [place] [address] Jul, [facility] [address] [id number] [address] [place] [address] Jul, [facility] [address] [id number] [address] [place] [address] Jul, [facility] [address] [id number] [address] [place] [address] Jun, [facility] [address] [id number] [address] [place] [address] Jun, [facility] [address] [id number] [address] [place] [address], [place] [address] Jun, [facility] [address] [id number] [address] [place] [address], [place] [address] 21 Jun, 2013 [facility] [address] [id number] [address] [place] [address], [place] [address] 16 Jun, 2013 [facility] [address] [id number] [address] [place] [address], [place] [address] 14 Jun, 2013 [facility] [address] [id number] [address] [place] [address], [place] [address] 14 Jun, 2013 [facility] [address] [id number] [address] [place] [address], [place] [address] 02 Jun, 2013 [facility] [address] [id number] [address] [place] [address], [place] [address] 15 May, 2013 [facility] [address] [id number] [address] [place] [address], [place] [address] 05 May, 2013 [facility] [address] [id number] [address] [place] [address], [place] [address] 04 May, 2013 [facility] [address] [id number] [address] [place] [address], [place] [address] Apr, [facility] [address] [id number] [address] [place] [address], [place] [address] Apr, [facility] [address] [id number] [address] [place] [address], [place] [address] Mar, [facility] [address] [id number] [address] [place] [address], [place] [address] Mar, [facility] [address] [id number] [address] [place] [address], [place] [address] Feb, [facility] [address] [id number] [address] [place] [address], [place] [address] January, [facility] [address] [id number] [address] [place] [address], [place] [address] 15 Jan, 2013 [facility] [address] [id number] [address] [place] [address], [place] [address] January, [facility] [address] [id number] [address] [place] [address], [place] [address] January, [facility] [address] [id number] [address] [place] [address], [place] [address] January, [facility] [address] [id number] [address] [place] [address], [place] [address] 29 Dec, 2012 [facility] [address] [id number] [address] [place] [address], [place] [address] Dec, [facility] [address] [id number] [address] [place] [address], [place] [address] Dec, [facility] [address] [id number] [address] [place] [address], [place] [address] Nov, [facility] [address] [id number] [address] [place] [address], [place] [address] 27 Oct, 2012 [facility] [address] [id number] [address] [place] [address], [place] [address] 18 Oct, 2012 [facility] [address] [id number] [address] [place] [address], [place] [address] 15 Oct, 2012 [facility] [address] [id number] [address] [place] [address], [place] [address] Sep, [facility] [address] [id number] [address] [place] [address], [place] [address] 16 Sep, 2012 [facility] [address] [id number] [address] [place] [address], [place] [address] 14 Aug, 2012 [facility] [address] [id number] [address] [place] [address], [place] [address] 14 Aug, 2012 [facility] [address] [id number] [address] [address] Aug, [facility] [address] [id number] [address] [place] [address], [place] [address] Aug, [facility] [address] [id number] [address] [place] [address], [place] [address] Jul, [facility] [address] [id number] [address] [place] [address], [place] [address] Jul, [facility] [address] [id number] [address] [place] [address], [place] [address] Jul, [facility] [address] [id number] [address] [place] [address], [place] [address] Jul, [facility] [address] [id number] [address] [place] [address], [place] [address] Jul, [facility] [address] [id number] [address] [place] [address], [place] [address] Jun, [facility] [address] [id number] [address] [place] [address], [place] [address] 15 Jun, 2012 [facility] [address] [id number] [address] [place] [address], [place] [address] Jun, [facility] [address] [id number] [address] [place] [address], [place] [address] Jun, [facility] [address] [id number] [address] [place] [address], [place] [address] May, [facility] [address] [id number] [address] [place] [address], [place] [address] Apr, [facility] [address] [id number] [address] [place] [address], [place] [address] Apr, [facility] [address] [id number] [address] [place] [address], [place] [address] Apr, [facility] [address] [id number] [address] [place] [address], [place] [address] Apr, [facility] [address] [id number] [address] [place] [address], [place] [address] January, [facility] [address] [id number] [address] [place] [address], [place] [address] January, [facility] [address] [id number] [address] [place] [address], [place] [address] Dec, [facility] [address] [id number] [address] [place] [address], [place] [address] Dec, [facility] [address] [id number] [address] [place] [address], [place] [address] Nov, [facility] [address] [id number] [address] [place] [address], [place] [address] Nov, [facility] [address] [id number] [address] [place] [address], [place] [address] Nov, [facility] [address] [id number] [address] [place] [address], [place] [address] Nov, [facility] [address] [id number] [address] [place] [address], [place] [address] Oct, [facility] [address] [id number] [address] [place] [address], [place] [address] Oct, [facility] [address] [id number] [address] [place] [address], [place] [address] Oct, [facility] [address] [id number] [address] [place] [address], [place] [address] Sep, [facility] [address] [id number] [address] [place] [address], [place] [address] Sep, [facility] [address] [id number] [address] [place] [address], [place] [address] Aug, [facility] [address] [id number] [address] [place] [address], [place] [address] Aug, [facility] [address] [id number] [address] [place] [address], [place] [address] Jul, [facility] [address] [id number] [address] [place] [address], [place] [address] 11 Jul, 2011 [facility] [address] [id number] [address] [place] [address], [place] [address] 04 Jul, 2011 [facility] [address] [id number] [address] [place] [address], [place] [address] Jun, [facility] [address] [id number] [address] [place] [address], [place] [address] 24 Jun, 2011 [facility] [address] [id number] [address] [place] [address], [place] [address] Jun, [facility] [address] [id number] [address] [place] [address], [place] [address] Jun, [facility] [address] [id number] [address] [place] [address], [place] [address] Jun, [facility] [address] [id number] [address] [place] [address], [place] [address] Jun, [facility] [address] [id number] [address] [place] [address], [place] [address] Aug, [facility] [address] [id number] [address] [place] [address], [place] [address] Aug, [facility] [address] [id number] [address] [place] [address], [place] [address] Aug, [facility] [address] [id number] [address] [place] [address], [place] [address] Jul, [facility] [address] [id number] [address] [place] [address], [place] [address] Jul, [facility] [address] [id number] [address] [place] [address], [place] [address] Jul, [facility] [address] [id number] [address] [place] [address], [place] [address] 15 Jul, 2010 [facility] [address] [id number] [address] [place] [address] 15 Jul, 2010 [facility] [address] [id number] [address] [place] [address] 08 Jul, 2010 [facility] [address] [id number] [address] [place] [address] Jun, [facility] [address] [id number] [address] [place] [address] Apr, [facility] [address] [id number] [address] [place] [address] Feb, [facility] [address] [id number] [address] [place] [address] Oct, [facility] [address] [id number] [address] [place] [address] Sep, [facility] [address] [facility] [id number] [address] [place] [address] Aug, [facility] [address] [id number] [address] [place] [address] Aug, [facility] [address] [facility] [id number] [address] [place] [address] Aug, [facility] [address] [id number] [address] [place] [address] Jul, [facility] [address] [id number] [address] [place] [address] Jun, IMMUNIZATIONS No Known Immunizations SOCIAL HISTORY Never Assessed REASON FOR VISIT Controlled Med Refill 06/28 PLAN OF CARE VITAL SIGNS MEDICATIONS Medication Instructions Dosage Frequency Start Date End Date Duration S tatus Tramadol HCl 50 mg Orally every 6 [...]
--- OUTSIDE RECORDS SUMMARY | 2020-02-22 17:29 | XMS REPORT ---
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 Name Role Phone ZACKARY TRUJILLO Unavailable PROBLEMS Type Condition ICD9-CM Code [id number] Code Onset Dates Condition S tatus SNOMED Code Problem Dyspepsia R10.13 Active 091372842 Problem History of anemia Z86.2 Active 27 6111681 Problem Cervical disc disease M50.90 Active 883445129 Problem Neck pain M54.2 Active 14668802 ALLERGIES Substance Reaction Event Type Date Status sulfa drugs Unknown Drug Allergy Jun, Active Zanaflex Unknown Drug Allergy Jun, Active Naprosyn Unknown Drug Allergy Jun, Active ENCOUNTERS Encounter Location Date Diagnosis [place] [id number] [facility] [id number] [address] [place] [address] Jun, Acute recurrent pansinusitis J01.41 and Cervical disc disease M50.90 [place] [address] [facility] [id number] [address] [place] [address] Jun, Cervical disc disease M50.90 [facility] [address] [facility] [id number] [address] [place] [address] May, Cervical disc disease M50.90 [facility] [address] [facility] [id number] [address] [place] [address] Apr, Cervical disc disease M50.90 [facility] [address] [facility] [id number] [address] [place] [address] Mar, Cervical disc disease M50.90 [facility] [address] [facility] [id number] [address] [place] [address] Mar, [facility] [address] [facility] [id number] [address] [place] [address] Mar, Cervical disc disease M50.90 [facility] [address] [id number] [address] [place] [address] Feb, Cervical disc disease M50.90 [facility] [address] [id number] [address] [place] [address] January, Cervical disc disease M50.90 [facility] [address] [id number] [address] [place] [address] Dec, [facility] [address] [id number] [address] [place] [address] Dec, Cervical disc disease M50.90 [facility] [address] [id number] [address] [place] [address] Nov, Cervical disc disease M50.90 [facility] [address] [id number] [address] [place] [address] Nov, Cervical disc disease M50.90 [facility] [address] [id number] [address] [place] [address] Oct, Cervical disc disease M50.90 [facility] [address] [id number] [address] [place] [address] Oct, Cervical disc disease M50.90 and Acute non-recurrent maxillary sinusitis J01.00 [facility] [address] [id number] [address] [place] [address] Sep, Cervical disc disease M50.90 [facility] [address] [id number] [address] [place] [address] Sep, [facility] [address] [id number] [address] [place] [address] Sep, Fatigue, unspecified type R5 3.83 and Cough R05 [facility] [address] [id number] [address] [place] [address] Aug, Cervical disc disease M50.90 [facility] [address] [facility] [id number] [address] [place] [address] Aug, Sore throat J02.9 ; Canker s ore K12.0 and History of anemia Z86.2 [facility] [address] [facility] [id number] [address] [place] [address] Jul, Cervical disc disease M50.90 [facility] [address] [facility] [id number] [address] [place] [address] Jun, Cervical disc disease M50.90 [facility] [address] [facility] [id number] [address] [place] [address] Jun, Cervical disc disease M50.90 [facility] [address] [facility] [id number] [address] [place] [address] May, Cervical disc disease M50.90 [facility] [address] [place] [id number] [address] [place] [address] Apr, Cervical disc disease M50.90 [facility] [address] [facility] [id number] [address] [place] [address] Apr, [facility] [address] [place] [id number] [place] [address] Feb, Cervical disc disease M50.90 [facility] [address] [place] [id number] [address] [place] [address] January, Cervical disc disease M50.90 [facility] [address] [place] [id number] [address] [place] [address] Nov, [facility] [address] [facility] [id number] [address] [place] [address] Nov, Cervical disc disease M50.90 [facility] [address] [facility] [id number] [address] [place] [address] Nov, Acute cystitis with hematuri a N30.01 and Dysuria R30.0 [facility] [address] [facility] [id number] [address] [place] [address] Oct, Cervical disc disease M50.90 and Acute non-recurrent frontal sinusitis J01.10 [facility] [address] [id number] [address] [place] [address] Sep, Neck pain M54.2 [facility] [address] [id number] [address] [place] [address] Sep, [facility] [address] [id number] [address] [place] [address] Aug, Cervical disc disease M50.90 [facility] [address] [id number] [address] [place] [address] Jul, [facility] [address] [facility] [id number] [address] [place] [address] Jun, [facility] [address] [facility] [id number] [address] [place] [address] May, [facility] [address] [facility] [id number] [address] [place] [address] May, Screening for diabetes melli tus Z13.1 ; Chronic fatigue R53.82 and Edema, unspecified type R60.9 [facility] [address] [facility] [id number] [address] [place] [address] Apr, Neck pain M54.2 [facility] [address] [facility] [id number] [address] [place] [address] Mar, [facility] [address] [facility] [id number] [address] [place] [address] Mar, Neck pain M54.2 [facility] [address] [facility] [id number] [address] [place] [address] Feb, Cervical disc disease M50.90 [facility] [address] [facility] [id number] [address] [place] [address] Feb, Cervical disc disease M50.90 [facility] [address] [facility] [id number] [address] [place] [address] January, [facility] [address] [id number] [address] [place] [address] January, [facility] [address] [id number] [address] [place] [address] January, Cervical disc disease M50.90 [facility] [address] [id number] [address] [place] [address] January, [facility] [address] [id number] [address] [place] [address] January, [facility] [address] [id number] [address] [place] [address] Dec, Cervical disc disease M50.90 [facility] [address] [id number] [address] [place] [address] Nov, Cervical disc disease M50.90 [facility] [address] [id number] [address] [place] [address] Oct, Cervical disc disease M50.90 [facility] [address] [id number] [address] [place] [address] Sep, Cervical disc disease M50.90 [facility] [address] [id number] [address] [place] [address] [id number] Aug, Dental caries K02.9 and Enco unter for dental examination Z01.20 [facility] [address] [id number] [address] [place] [address] Aug, [facility] [address] [id number] [address] [place] [address] Aug, [facility] [address] [id number] [address] [place] [id number] 08 Aug, 2015 Encounter for dental examina tion Z01.20 [facility] [address] [id number] [address] [place] [address] Jul, [facility] [address] [id number] [address] [place] [address] Jun, Sinusitis J32.9 and Cervical disc disease M50.90 [facility] [address] [id number] [address] [place] [address] Jun, [facility] [address] [id number] [address] [place] [address] May, [facility] [address] [id number] [address] [place] [address] May, [facility] [address] [id number] [address] [place] [address] May, [facility] [address] [id number] [address] [place] [address] May, [facility] [address] [id number] [address] [place] [address] Apr, Cervical spondylosis without myelopathy 721.0 [facility] [address] [id number] [address] [place] [address] Mar, [facility] [address] [id number] [address] [place] [address] January, Cervical spondylosis without myelopathy 721.0 [facility] [address] [id number] [address] [place] [address] Dec, [facility] [address] [id number] [address] [place] [address] 14 Dec, 2014 [facility] [address] [id number] [address] [place] [address] 13 Dec, 2014 [facility] [address] [id number] [address] [place] [address] Nov, [facility] [address] [id number] [address] [place] [address] Nov, [facility] [address] [id number] [address] [place] [address] Oct, [facility] [address] [id number] [address] [place] [address], [place] [address] Oct, [facility] [address] [id number] [address] [place] [address], [place] [address] Oct, [facility] [address] [id number] [address] [place] [address], [place] [address] Oct, 2014 [facility] [address] [id number] [address] [place] [address], [place] [address] Oct, 2014 [facility] [address] [id number] [address] [place] [address], [place] [address] Oct, 2014 [facility] [address] [id number] [address] [place] [address], [place] [address] Oct, 2014 [facility] [address] [id number] [address] [place] [address], [place] [address] Oct, [facility] [address] [id number] [address] [place] [address], [place] [address] Oct, [facility] [address] [id number] [address] [place] [address], [place] [address] Oct, [facility] [address] [id number] [address] [place] [address], [place] [address] Sep, [facility] [address] [id number] [address] [place] [address], [place] [address] Sep, [facility] [address] [id number] [address] [place] [address], [place] [address] Sep, [facility] [address] [id number] [address] [place] [address], [place] [address] Sep, [facility] [address] [id number] [address] [place] [address], [place] [address] Sep, [facility] [address] [id number] [address] [place] [address], [place] [address] Sep, [facility] [address] [id number] [address] [place] [address], [place] [address] Sep, [facility] [address] [id number] [address] [place] [address], [place] [address] Sep, [facility] [address] [id number] [address] [place] [address], [place] [address] Sep, [facility] [address] [id number] [address] [place] [address], [place] [address] Aug, [facility] [address] [id number] [address] [place] [address], [place] [address] Aug, [facility] [address] [id number] [address] [place] [address], [place] [address] Aug, [facility] [address] [id number] [address] [place] [address], [place] [address] Aug, [facility] [address] [id number] [address] [place] [address], [place] [address] Jul, [facility] [address] [id number] [address] [place] [address], [place] [address] Jul, [facility] [address] [id number] [address] [place] [address], [place] [address] Jul, [facility] [address] [id number] [address] [place] [address], [place] [address] Jul, [facility] [address] [id number] [address] [place] [address], [place] [address] Jul, [facility] [address] [id number] [address] [place] [address], [place] [address] Jul, [facility] [address] [id number] [address] [place] [address], [place] [address] Jul, [facility] [address] [id number] [address] [place] [address], [place] [address] Jul, [facility] [address] [id number] [address] [place] [address], [place] [address] 27 Jun, 2014 [facility] [address] [id number] [address] [place] [address], [place] [address] 27 Jun, 2014 [facility] [address] [id number] [address] [place] [address], [place] [address] 20 Jun, 2014 [facility] [address] [id number] [address] [place] [address], [place] [address] 20 Jun, 2014 [facility] [address] [id number] [address] [place] [address], [place] [address] 16 Jun, 2014 [facility] [address] [id number] [address] [place] [address], [place] [address] 15 Jun, 2014 [facility] [address] [id number] [address] [place] [address], [place] [address] 15 Jun, 2014 [facility] [address] [id number] [address] [place] [address], [place] [address] 14 Jun, 2014 [facility] [address] [id number] [address] [place] [address], [place] [address] 14 Jun, 2014 [facility] [address] [id number] [address] [place] [address], [place] [address] 11 Jun, 2014 [facility] [address] [id number] [address] [place] [address], [place] [address] 11 Jun, 2014 [facility] [address] [id number] [address] [place] [address], [place] [address] 24 May, 2013 [facility] [address] [id number] [address] [place] [address], [place] [address] 24 Sep, 2013 [facility] [address] [id number] [address] [place] [address], [place] [address] 08 May, 2013 [facility] [address] [id number] [address] [place] [address], [place] [address] 02 Sep, 2013 [facility] [address] [id number] [address] [place] [address], [place] [address] 02 May, 2013 [facility] [address] [id number] [facility] [place] [address] Apr, [facility] [address] [id number] [address] [place] [address], [place] [address] Apr, [facility] [address] [id number] [address] [place] [address], [place] [address] Apr, [facility] [address] [id number] [address] [place] [address], [place] [address] Apr, [facility] [address] [id number] [address] [place] [address], [place] [address] Apr, [facility] [address] [id number] [address] [place] [address], [place] [address] Apr, [facility] [address] [id number] [address] [place] [address], [place] [address] Mar, [facility] [address] [id number] [address] [place] [address], [place] [address] Mar, [facility] [address] [id number] [address] [place] [address], [place] [address] Mar, [facility] [address] [id number] [address] [place] [address], [place] [address] Mar, [facility] [address] [id number] [address] [place] [address], [place] [address] Mar, [facility] [address] [id number] [address] [place] [address], [place] [address] Mar, [facility] [address] [id number] [address] [place] [address], [place] [address] Feb, [facility] [address] [id number] [address] [place] [address], [place] [address] Feb, [facility] [address] [id number] [address] [place] [address], [place] [address] Feb, [facility] [address] [id number] [address] [place] [address], [place] [address] Feb, [facility] [address] [id number] [address] [place] [address], [place] [address] Feb, [facility] [address] [id number] [address] [place] [address], [place] [address] Feb, [facility] [address] [id number] [address] [place] [address], [place] [address] Feb, [facility] [address] [id number] [address] [place] [address], [place] [address] Feb, [facility] [address] [id number] [address] [place] [address], [place] [address] January, [facility] [address] [id number] [address] [place] [address], [place] [address] January, [facility] [address] [id number] [address] [place] [address], [place] [address] January, [facility] [address] [id number] [address] [place] [address], [place] [address] January, [facility] [address] [id number] [address] [place] [address], [place] [address] January, [facility] [address] [id number] [address] [place] [address], [place] [address] January, [facility] [address] [id number] [address] [place] [address], [place] [address] January, [facility] [address] [id number] [address] [place] [address], [place] [address] January, [facility] [address] [id number] [address] [place] [address], [place] [address] Dec, [facility] [address] [id number] [address] [place] [address], [place] [address] Dec, [facility] [address] [id number] [address] [place] [address], [place] [address] Dec, [facility] [address] [id number] [address] [place] [address], [place] [address] Dec, [facility] [address] [id number] [address] [place] [address] Dec, [facility] [address] [id number] [address] [place] [address], [place] [address] Dec, [facility] [address] [id number] [address] [place] [address], [place] [address] Nov, [facility] [address] [id number] [address] [place] [address], [place] [address] Nov, [facility] [address] [id number] [address] [place] [address], [place] [address] Nov, [facility] [address] [id number] [address] [place] [address], [place] [address] Nov, [facility] [address] [id number] [address] [place] [address], [place] [address] Nov, [facility] [address] [id number] [address] [place] [address], [place] [address] Nov, [facility] [address] [id number] [address] [place] [address], [place] [address] Nov, [facility] [address] [id number] [address] [place] [address], [place] [address] Nov, [facility] [address] [id number] [address] [place] [address], [place] [address] Oct, [facility] [address] [id number] [address] [place] [address], [place] [address] Oct, [facility] [address] [id number] [address] [place] [address], [place] [address] Sep, [facility] [address] [id number] [address] [place] [address], [place] [address] Sep, [facility] [address] [id number] [address] [place] [address], [place] [address] Sep, [facility] [address] [id number] [address] [place] [address], [place] [address] Sep, [facility] [address] [id number] [address] [place] [address], [place] [address] Aug, [facility] [address] [id number] [address] [place] [address], [place] [address] Aug, [facility] [address] [id number] [address] [place] [address], [place] [address] Aug, [facility] [address] [id number] [address] [place] [address], [place] [address] Aug, [facility] [address] [id number] [address] [place] [address], [place] [address] Jul, [facility] [address] [id number] [address] [place] [address], [place] [address] Jul, [facility] [address] [id number] [address] [place] [address], [place] [address] Jul, [facility] [address] [id number] [address] [place] [address], [place] [address] Jul, [facility] [address] [id number] [address] [place] [address], [place] [address] Jul, [facility] [address] [id number] [address] [place] [address], [place] [address] Jul, [facility] [address] [id number] [address] [place] [address], [place] [address] Jul, [facility] [address] [id number] [address] [place] [address], [place] [address] Jul, [facility] [address] [id number] [address] [place] [address], [place] [address] Jul, [facility] [address] [id number] [address] [place] [address], [place] [address] Jul, [facility] [address] [id number] [address] [place] [address], [place] [address] Jul, [facility] [address] [id number] [address] [place] [address], [place] [address] Jul, [facility] [address] [id number] [address] [place] [address], [place] [address] Jun, [facility] [address] [id number] [address] [place] [address], [place] [address] Jun, [facility] [address] [id number] [address] [place] [address], [place] [address] Jun, [facility] [address] [id number] [address] [place] [address], [place] [address] Jun, [facility] [address] [address] [id number] [address] [place] [address], [place] [address] 16 Jun, 2013 [facility] [address] [id number] [address] [place] [address], [place] [address] Jun, [facility] [address] [id number] [address] [place] [address], [place] [address] Jun, [facility] [address] [id number] [address] [place] [address], [place] [address] Jun, [facility] [address] [id number] [address] [place] [address] 15 May, 2013 [facility] [address] [id number] [address] [place] [address], [place] [address] 05 May, 2013 [facility] [address] [id number] [address] [place] [address] 04 May, 2013 [facility] [address] [id number] [address] [place] [address], [place] [address] Apr, [facility] [address] [id number] [address] [place] [address], [place] [address] Apr, [facility] [address] [id number] [address] [place] [address], [place] [address] Mar, [facility] [address] [id number] [address] [place] [address], [place] [address] Mar, [facility] [address] [id number] [address] [place] [address], [place] [address] Feb, [facility] [address] [id number] [address] [place] [address], [place] [address] January, [facility] [address] [id number] [address] [place] [address], [place] [address] January, [facility] [address] [id number] [address] [place] [address], [place] [address] January, [facility] [address] [id number] [address] [place] [address], [place] [address] January, [facility] [address] [id number] [address] [place] [address], [place] [address] January, [facility] [address] [id number] [address] [place] [address], [place] [address] Dec, [facility] [address] [id number] [address] [place] [address], [place] [address] Dec, [facility] [address] [id number] [address] [place] [address], [place] [address] Dec, [facility] [address] [id number] [address] [place] [address], [place] [address] Nov, [facility] [address] [id number] [address] [place] [address], [place] [address] Oct, [facility] [address] [id number] [address] [place] [address], [place] [address] Oct, [facility] [address] [id number] [address] [place] [address], [place] [address] Oct, [facility] [address] [id number] [address] [place] [address], [place] [address] Sep, [facility] [address] [id number] [address] [place] [address], [place] [address] Sep, [facility] [address] [id number] [address] [place] [address], [place] [address] 14 Aug, 2012 [facility] [address] [id number] [address] [place] [address], [place] [address] 14 Aug, 2012 [facility] [address] [id number] [address] [place] [address], [place] [address] 11 Aug, 2012 [facility] [address] [id number] [address] [place] [address], [place] [address] Aug, [facility] [address] [id number] [address] [place] [address], [place] [address] Jul, [facility] [address] [id number] [address] [place] [address], [place] [address] Jul, [facility] [address] [id number] [address] [place] [address], [place] [address] Jul, [facility] [address] [id number] [address] [place] [address], [place] [address] Jul, [facility] [address] [id number] [address] [place] [address], [place] [address] Jul, [facility] [address] [id number] [address] [place] [address], [place] [address] 15 Jun, 2012 [facility] [address] [id number] [address] [place] [address], [place] [address] 15 Jun, 2012 [facility] [address] [id number] [address] [place] [address], [place] [address] 10 Jun, 2012 [facility] [address] [id number] [address] [place] [address], [place] [address] 10 Jun, 2012 [facility] [address] [id number] [address] [place] [address], [place] [address] 10 May, 2012 [facility] [address] [id number] [address] [place] [address], [place] [address] 13 Apr, 2012 [facility] [address] [id number] [address] [place] [address], [place] [address] Apr, [facility] [address] [id number] [address] [place] [address], [place] [address] Apr, [facility] [address] [id number] [address] [place] [address], [place] [address] Apr, [facility] [address] [id number] [address] [place] [address], [place] [address] January, [facility] [address] [id number] [address] [place] [address], [place] [address] January, [facility] [address] [id number] [address] [place] [address], [place] [address] Dec, [facility] [address] [id number] [address] [place] [address], [place] [address] Dec, [facility] [address] [id number] [address] [place] [address], [place] [address] Nov, [facility] [address] [id number] [address] [place] [address], [place] [address] Nov, [facility] [address] [id number] [address] [place] [address], [place] [address] Nov, [facility] [address] [id number] [address] [place] [address], [place] [address] Nov, [facility] [address] [id number] [address] [place] [address], [place] [address] Oct, [facility] [address] [id number] [address] [place] [address], [place] [address] Oct, [facility] [address] [id number] [address] [place] [address], [place] [address] Oct, [facility] [address] [id number] [address] [place] [address], [place] [address] Sep, [facility] [address] [id number] [address] [place] [address], [place] [address] Sep, [facility] [address] [id number] [address] [place] [address], [place] [address] Aug, [facility] [address] [id number] [address] [place] [address], [place] [address] Aug, [facility] [address] [id number] [address] [place] [address], [place] [address] Jul, [facility] [address] [id number] [address] [place] [address], [place] [address] Jul, [facility] [address] [id number] [address] [place] [address], [place] [address] Jul, [facility] [address] [id number] [address] [place] [address], [place] [address] Jun, [facility] [address] [id number] [address] [place] [address], [place] [address] 24 Jun, 2011 [facility] [address] [id number] [address] [place] [address], [place] [address] Jun, [facility] [address] [id number] [address] [place] [address], [place] [address] Jun, [facility] [address] [id number] [address] [place] [address], [place] [address] Jun, [facility] [address] [id number] [address] [place] [address], [place] [address] Jun, [facility] [address] [id number] [address] [place] [address], [place] [address] Aug, [facility] [address] [id number] [address] [place] [address], [place] [address] Aug, [facility] [address] [id number] [address] [place] [address], [place] [address] Aug, [facility] [address] [id number] [address] [place] [address], [place] [address] Jul, [facility] [address] [id number] [address] [place], [place] [address], [place] [address] Jul, [facility] [address] [id number] [address] [place] [address] Jul, [facility] [address] [id number] [address] [place] [address] Jul, [facility] [address] [id number] [address] [place] [address] Jul, [facility] [address] [id number] [address] [place] [address] Jul, [facility] [address] [id number] [address] [place] [address] Jun, [facility] [address] [id number] [address] [place] [address] Apr, [facility] [address] [id number] [address] [place] [address] Feb, [facility] [address] [id number] [address] [place] [address] Oct, [facility] [address] [id number] [address] [place] [address] Sep, [facility] [address] [id number] [address] [place] [address] Aug, [facility] [address] [id number] [address] [place] [address] Aug, [facility] [address] [id number] [address] [place] [address] Aug, [facility] [address] [id number] [address] [place] [address] Jul, [facility] [address] [id number] [address] [place] [address] Jun, IMMUNIZATIONS No Known Immunizations SOCIAL HISTORY Never Assessed REASON FOR VISIT c/o Sinus Infection [id number] Yoli Navarro , severe headaches with facial pain Josi harrington mA , has alot of drainage but also has some pressure Yoli MARIAH PLAN OF CARE Activity Details Follow Up 4 Months Reason: VITAL SIGNS Height 65 in 2018-07-02 Weight 176.7 lbs 2018-07-02 Temperature 98.0 degrees Fahrenheit 2018-07-02 Heart Rate 89 bpm 2018-07-02 Respiratory Rate 20 2018-07-02 BMI 29.40 kg/m2 2018-07-02 Blood pressure systolic 136 mmHg 2018-07-02 Blood pressure diastolic 88 mmHg 2018-07-02 MEDICATIONS Medication Instructions Dosage Frequency Start Date End Date Duration S tatus Imitrex 100 MG 1 tablet by Oral rou te 1 time per day PRN may repeat dose once in 2 hours ; quantity must last 30 days 9 Active Doxycycline Hyclate 100 mg Orally twice a day 1 capsule 12h 3 0 Jun, 2018 Jul, 7 days Active SudoGest 60 mg Orally every 6 hrs 1 tablet as needed 6h Oct, 8 5 days Active Tramadol HCl 50 mg Orally every 6 hrs 2 tablet as needed 6h Oct, 28 days Active Rabeprazole Sodium 20 mg Orally Once a day 1 tablet 24h 30 Active Diazepam 5 mg Orally Once a day 1 tablet as needed 24h 28 Active Valium 5 mg Orally Once a day, prn restlessness 1 tablet Oct, Active Sumatriptan Succinate 100 MG TAKE ONE TA BLET BY MOUTH ONCE DAILY NEEDED MAY REPEAT IN 2 HOURS IF HEADACHE REOCCURS (MUST LAST 30 DAYS) 30 Active RESULTS No Results PROCEDURES No Known [...]
--- OUTSIDE RECORDS SUMMARY | 2020-02-22 17:29 | XMS REPORT ---
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 Name Role Phone ZACKARY TRUJILLO Unavailable PROBLEMS Type Condition ICD9-CM Code [id number] Code Onset Dates Condition S tatus SNOMED Code Problem Dyspepsia R10.13 Active 822038981 Problem History of anemia Z86.2 Active 27 5768660 Problem Cervical disc disease M50.90 Active 288370146 Problem Neck pain M54.2 Active [id number] ALLERGIES No Information ENCOUNTERS Encounter Location Date Diagnosis [facility] [address] [facility] [id number] [address] [place] [id number] Apr, Cervical disc disease M50.90 [facility] [address] [id number] [address] [place] [id number] Mar, Cervical disc disease M50.90 [facility] [address] [id number] [address] [place] [id number] Mar, [facility] [address] [facility] [id number] [address] [place] [id number] Mar, Cervical disc disease M50.90 [facility] [address] [facility] [id number] [address] [place] [id number] Feb, Cervical disc disease M50.90 [facility] [address] [id number] [address] [place] [id number] January, Cervical disc disease M50.90 [facility] [address] [facility] [id number] [address] [place] [id number] Dec, [facility] [address] [facility] [id number] [address] [place] [id number] Dec, Cervical disc disease M50.90 [facility] [address] [facility] [id number] [address] [place] [address] Nov, Cervical disc disease M50.90 [facility] [address] [facility] [id number] [address] [place] [id number] Nov, Cervical disc disease M50.90 [facility] [address] [facility] [id number] [address] [place] [id number] Oct, Cervical disc disease M50.90 [facility] [address] [facility] [id number] [address] [place] [id number] Oct, Cervical disc disease M50.90 and Acute non-recurrent maxillary sinusitis J01.00 [place] [address] [facility] [id number] [address] [place] [address] Sep, Cervical disc disease M50.90 [facility] [address] [address] Sep, [facility] [address] [place] [id number] [place] [phone] Sep, Fatigue, unspecified type R5 3.83 and Cough R05 [place] [address] [place] [id number] [address] [place] [id number] Aug, Cervical disc disease M50.90 [facility] [address] [place] [id number] [address] [place] [id number] Aug, Sore throat J02.9 ; Canker s ore K12.0 and History of anemia Z86.2 [facility] [address] [facility] [id number] [address] [place] [address] Jul, Cervical disc disease M50.90 [place] [address] [place] [id number] [address] [place] [id number] Jun, Cervical disc disease M50.90 [place] [address] [place] [id number] [address] [place] [phone] Jun, Cervical disc disease M50.90 [facility] [address] [id number] [address] [place] [id number] May, Cervical disc disease M50.90 [facility] [address] [id number] [address] [place] [phone] Apr, Cervical disc disease M50.90 [facility] [address] [id number] [address] [place] [id number] Apr, [facility] [address] [id number] [address] [place] [id number] Feb, Cervical disc disease M50.90 [facility] [address] [facility] [id number] [address] [place] [address] January, Cervical disc disease M50.90 [facility] [address] [facility] [id number] [address] [place] [phone] Nov, [facility] [address] [facility] [id number] [address] [place] [id number] Nov, Cervical disc disease M50.90 [facility] [address] [facility] [id number] [address] [place] [address] Nov, Acute cystitis with hematuri a N30.01 and Dysuria R30.0 [facility] [address] [facility] [id number] [address] [place] [address] Oct, Cervical disc disease M50.90 and Acute non-recurrent frontal sinusitis J01.10 [facility] [address] [id number] [address] [place] [phone] Sep, Neck pain M54.2 [facility] [address] [facility] [id number] [address] [place] [address] Sep, [facility] [address] [facility] [id number] [address] [place] [address] Aug, Cervical disc disease M50.90 [facility] [address] [facility] [id number] [address] [place] [id number] Jul, [facility] [address] [id number] [address] [place] [phone] Jun, [facility] [address] [id number] [address] [place] [phone] May, [facility] [address] [id number] [address] [place] [id number] May, Screening for diabetes melli tus Z13.1 ; Chronic fatigue R53.82 and Edema, unspecified type R60.9 [facility] [address] [id number] [address] [place] [id number] Apr, Neck pain M54.2 [facility] [address] [id number] [address] [place] [id number] Mar, [facility] [address] [id number] [address] [place] [address] Mar, Neck pain M54.2 [facility] [address] [id number] [address] [place] [address] Feb, Cervical disc disease M50.90 [facility] [address] [id number] [address] [place] [id number] Feb, Cervical disc disease M50.90 [facility] [address] [id number] [address] [place] [id number] January, [facility] [address] [id number] [address] [place] [id number] January, [facility] [address] [id number] [address] [place] [id number] January, Cervical disc disease M50.90 [facility] [address] [id number] [address] [place] [id number] January, [facility] [address] [id number] [address] [place] [id number] January, [facility] [address] [id number] [address] [place] [address] Dec, Cervical disc disease M50.90 [facility] [address] [id number] [address] [place] [id number] Nov, Cervical disc disease M50.90 [facility] [address] [id number] [address] [place] [address] Oct, Cervical disc disease M50.90 [facility] [address] [id number] [address] [place] [id number] Sep, Cervical disc disease M50.90 [facility] [address] [id number] [address] [place] [id number] Aug, Dental caries K02.9 and Enco unter for dental examination Z01.20 [facility] [address] [id number] [address] [place] [id number] Aug, [facility] [address] [id number] [address] [place] [phone] Aug, [facility] [address] [id number] [address] [place] [id number] Aug, Encounter for dental examina tion Z01.20 [facility] [address] [id number] [address] [place] [id number] Jul, [facility] [address] [id number] [address] [place] [id number] Jun, Sinusitis J32.9 and Cervical disc disease M50.90 [facility] [address] [id number] [address] [place] [phone] Jun, [facility] [address] [id number] [address] [place] [id number] 24 May, 2015 [facility] [address] [id number] [address] [place] [id number] 23 May, 2015 [facility] [address] [id number] [address] [place] [id number] May, [facility] [address] [id number] [address] [place] [phone] May, [facility] [address] [id number] [address] [place] [phone] Apr, Cervical spondylosis without myelopathy 721.0 [facility] [address] [id number] [address] [place] [id number] Mar, [facility] [address] [id number] [address] [place] [id number] January, Cervical spondylosis without myelopathy 721.0 [facility] [address] [id number] [address] [place] [phone] Dec, [facility] [address] [id number] [address] [place] [phone] Dec, [facility] [address] [id number] [address] [place] [phone] Dec, [facility] [address] [id number] [address] [place] [id number] Nov, [facility] [address] [id number] [address] [place] [phone] Nov, [facility] [address] [id number] [address] [place] [phone] Oct, [facility] [address] [id number] [address] [place] [id number] Oct, [facility] [address] [id number] [address] [place] [phone] Oct, [facility] [address] [id number] [address] [place] [id number] Oct, [facility] [address] [id number] [address] [place] [phone] Oct, [facility] [address] [id number] [address] [place] [phone] Oct, [facility] [address] [id number] [address] [place] [address], [place] [address] Oct, [facility] [address] [id number] [address] [place] [address], [place] [id number] Oct, [facility] [address] [id number] [address] [place] [address], [place] [address] Oct, [facility] [address] [id number] [address] [place] [address], [place] [id number] Oct, [facility] [address] [id number] [address] [place] [address], [place] [id number] Sep, [facility] [address] [id number] [address] [place] [address], [place] [id number] Sep, [facility] [address] [id number] [address] [place] [address], [place] [address] Sep, [facility] [address] [id number] [address] [place] [address], [place] [address] Sep, [facility] [address] [id number] [address] [place] [address], [place] [address] Sep, [facility] [address] [id number] [address] [place] [address], [place] [address] Sep, [facility] [address] [id number] [address] [place] [address], [place] [id number] Sep, [facility] [address] [id number] [address] [place] [address], [place] [address] Sep, [facility] [address] [id number] [address] [place] [address], [place] [address] Sep, [facility] [address] [id number] [address] [place] [address], [place] [address] Aug, [facility] [address] [id number] [address] [place] [address], [place] [address] Aug, [facility] [address] [id number] [address] [place] [address], [place] [id number] Aug, [facility] [address] [id number] [address] [place] [address], [place] [address] Aug, [facility] [address] [id number] [address] [place] [address], [place] [address] Jul, [facility] [address] [id number] [address] [place] [address], [place] [id number] Jul, [facility] [address] [id number] [address] [place] [address], [place] [id number] Jul, [facility] [address] [id number] [address] [place] [address], [place] [address] Jul, [facility] [address] [id number] [address] [place] [address], [place] [address] Jul, [facility] [address] [id number] [address] [place] [address], [place] [address] Jul, [facility] [address] [id number] [address] [place] [address], [place] [address] Jul, [facility] [address] [id number] [address] [place] [address], [place] [address] Jul, [facility] [address] [id number] [address] [place] [address], [place] [address] Jun, [facility] [address] [id number] [address] [place] [address], [place] [address] Jun, [facility] [address] [id number] [address] [place] [address], [place] [address] Jun, [facility] [address] [id number] [address] [place] [address], [place] [address] 20 Jun, 2014 [facility] [address] [id number] [address] [place] [address], [place] [address] 16 Jun, 2014 [facility] [address] [id number] [address] [place] [address], [place] [id number] 15 Jun, 2014 [facility] [address] [id number] [address] [place] [address], [place] [id number] 15 Jun, 2014 [facility] [address] [id number] [address] [place] [address], [place] [id number] 14 Jun, 2014 [facility] [address] [id number] [address] [place] [address], [place] [address] 14 Jun, 2014 [facility] [address] [id number] [address] [place] [address], [place] [address] Jun, [facility] [address] [id number] [address] [place] [address], [place] [address] Jun, [facility] [address] [id number] [address] [place] [address], [place] [address] 24 May, 2014 [facility] [address] [id number] [address] [place] [address], [place] [address] 24 May, 2014 [facility] [address] [id number] [address] [place] [address], [place] [address] 08 May, 2014 [facility] [address] [id number] [address] [place] [address], [place] [address] 02 May, 2014 [facility] [address] [id number] [address] [place] [address], [place] [address] May, [facility] [address] [id number] [address] [place] [address], [place] [address] Apr, [facility] [address] [id number] [address] [place] [address], [place] [address] Apr, [facility] [address] [id number] [address] [place] [address], [place] [address] Apr, [facility] [address] [id number] [address] [place] [address], [place] [address] Apr, [facility] [address] [id number] [address] [place] [address], [place] [address] Apr, [facility] [address] [id number] [address] [place] [id number] Apr, [facility] [address] [id number] [facility] [place] [address] Mar, [facility] [address] [id number] [address] [place] [address], [place] [address] Mar, [facility] [address] [id number] [address] [place] [address], [place] [address] Mar, [facility] [address] [id number] [address] [place] [address], [place] [address] Mar, [facility] [address] [id number] [address] [place] [address], [place] [address] Mar, [facility] [address] [id number] [address] [place] [address], [place] [address] Mar, [facility] [address] [id number] [address] [place] [address], [place] [address] Feb, [facility] [address] [id number] [address] [place] [address], [place] [address] Feb, [facility] [address] [id number] [address] [place] [address], [place] [address] Feb, [facility] [address] [id number] [address] [place] [address], [place] [address] Feb, [facility] [address] [id number] [address] [place] [address], [place] [address] Feb, [facility] [address] [id number] [address] [place] [address], [place] [address] Feb, [facility] [address] [id number] [address] [place] [address], [place] [address] Feb, [facility] [address] [id number] [address] [place] [address], [place] [address] Feb, [facility] [address] [id number] [address] [place] [address], [place] [id number] January, [facility] [address] [id number] [address] [place] [address], [place] [address] January, [facility] [address] [id number] [address] [place] [address], [place] [address] January, [facility] [address] [id number] [address] [place] [address], [place] [address] January, [facility] [address] [id number] [address] [place] [address], [place] [id number] January, [facility] [address] [id number] [address] [place] [address], [place] [address] January, [facility] [address] [id number] [address] [place] [address], [place] [address] January, [facility] [address] [id number] [address] [place] [address], [place] [address] January, [facility] [address] [id number] [address] [place] [address], [place] [id number] Dec, [facility] [address] [id number] [address] [place] [address], [place] [id number] Dec, [facility] [address] [id number] [address] [place] [address], [place] [id number] Dec, [facility] [address] [id number] [address] [place] [address], [place] [address] Dec, [facility] [address] [id number] [address] [place] [address], [place] [address] Dec, [facility] [address] [id number] [address] [place] [address], [place] [id number] Dec, [facility] [address] [id number] [address] [place] [address], [place] [id number] Nov, [facility] [address] [id number] [address] [place] [address], [place] [id number] Nov, [facility] [address] [id number] [address] [place] [address], [place] [address] Nov, [facility] [address] [id number] [facility] [place] [id number] Nov, [facility] [address] [id number] [address] [place] [address], [place] [address] Nov, [facility] [address] [id number] [address] [place] [address], [place] [id number] Nov, [facility] [address] [id number] [address] [place] [address], [place] [address] Nov, [facility] [address] [id number] [address] [place] [address], [place] [id number] Nov, [facility] [address] [id number] [address] [place] [address], [place] [id number] Oct, [facility] [address] [id number] [address] [place] [address], [place] [id number] Oct, [facility] [address] [id number] [address] [place] [address], [place] [id number] Sep, [facility] [address] [id number] [address] [place] [address], [place] [id number] Sep, [facility] [address] [id number] [address] [place] [address], [place] [id number] Sep, [facility] [address] [id number] [address] [place] [address], [place] [id number] Sep, [facility] [address] [id number] [address] [place] [address], [place] [id number] Aug, [facility] [address] [id number] [address] [place] [address], [place] [id number] Aug, [facility] [address] [id number] [address] [place] [address], [place] [id number] Aug, [facility] [address] [id number] [address] [place] [address], [place] [id number] Aug, [facility] [address] [id number] [address] [place] [address], [place] [id number] Jul, [facility] [address] [id number] [address] [place] [address], [place] [id number] Jul, [facility] [address] [id number] [address] [place] [address], [place] [id number] Jul, [facility] [address] [id number] [address] [place] [address], [place] [id number] Jul, [facility] [address] [id number] [address] [place] [address], [place] [id number] Jul, [facility] [address] [id number] [address] [place] [address], [place] [id number] Jul, [facility] [address] [id number] [address] [place] [address], [place] [id number] Jul, [facility] [address] [id number] [address] [place] [address], [place] [id number] Jul, [facility] [address] [id number] [address] [place] [address], [place] [id number] Jul, [facility] [address] [id number] [address] [place] [address], [place] [address] Jul, [facility] [address] [id number] [address] [place] [address], [place] [id number] Jul, [facility] [address] [id number] [address] [place] [address], [place] [address] Jul, [facility] [address] [id number] [address] [place] [address], [place] [id number] Jun, [facility] [address] [id number] [address] [place] [address], [place] [id number] Jun, [facility] [address] [id number] [address] [place] [address], [place] [id number] Jun, [facility] [address] [id number] [address] [place] [address], [place] [id number] Jun, [facility] [facility] [address] [id number] [address] [place] [address], [place] [id number] 16 Jun, 2013 [facility] [address] [id number] [address] [place] [address], [place] [id number] 14 Jun, 2013 [facility] [address] [id number] [address] [place] [address], [place] [id number] 14 Jun, 2013 [facility] [address] [id number] [address] [place] [address], [place] [id number] 02 Jun, 2013 [facility] [address] [id number] [address] [place] [address], [place] [id number] 15 May, 2013 [facility] [address] [id number] [address] [place] [address], [place] [id number] 05 May, 2013 [facility] [address] [id number] [address] [place] [address], [place] [id number] May, [facility] [address] [id number] [address] [place] [address], [place] [id number] Apr, [facility] [address] [id number] [address] [place] [address], [place] [id number] Apr, [facility] [address] [id number] [address] [place] [address], [place] [id number] Mar, [facility] [address] [id number] [address] [place] [address], [place] [id number] Mar, [facility] [address] [id number] [address] [place] [address], [place] [id number] Feb, [facility] [address] [id number] [address] [place] [address], [place] [id number] January, [facility] [address] [id number] [address] [place] [address], [place] [id number] January, [facility] [address] [id number] [address] [place] [address], [place] [id number] January, [facility] [address] [id number] [address] [place] [address], [place] [id number] January, [facility] [address] [id number] [address] [place] [address], [place] [address] January, [facility] [address] [id number] [address] [place] [address], [place] [id number] 29 Dec, 2012 [facility] [address] [id number] [address] [place] [address], [place] [id number] 17 Dec, 2012 [facility] [address] [id number] [address] [place] [address], [place] [id number] 02 Dec, 2012 [facility] [address] [id number] [address] [place] [address], [place] [address] Nov, [facility] [address] [id number] [address] [place] [address], [place] [id number] 27 Oct, 2012 [facility] [address] [id number] [address] [place] [address], [place] [id number] 18 Oct, 2012 [facility] [address] [id number] [address] [place] [address], [place] [id number] 15 Oct, 2012 [facility] [address] [id number] [address] [place] [address], [place] [id number] 18 Sep, 2012 [facility] [address] [id number] [address] [place] [address], [place] [id number] 16 Sep, 2012 [facility] [address] [id number] [address] [place] [address], [place] [id number] 14 Aug, 2012 [facility] [address] [id number] [address] [place] [address], [place] [id number] 14 Aug, 2012 [facility] [address] [id number] [address] [place] [address], [place] [id number] Aug, [facility] [address] [id number] [address] [place] [address], [place] [id number] Aug, [facility] [address] [id number] [address] [place] [address], [place] [id number] Jul, [facility] [address] [id number] [address] [place] [address], [place] [id number] Jul, [facility] [address] [id number] [address] [place] [address], [place] [address] Jul, [facility] [address] [id number] [address] [place] [address], [place] [id number] Jul, [facility] [address] [id number] [address] [place] [address], [place] [id number] Jul, [facility] [address] [id number] [address] [place] [address], [place] [id number] 15 Jun, 2012 [facility] [address] [id number] [address] [place] [address], [place] [id number] 15 Jun, 2012 [facility] [address] [id number] [address] [place] [address], [place] [id number] Jun, [facility] [address] [id number] [address] [place] [address], [place] [id number] Jun, [facility] [address] [id number] [address] [place] [address], [place] [id number] May, [facility] [address] [id number] [address] [place] [address], [place] [id number] Apr, [facility] [address] [id number] [address] [place] [address], [place] [address] Apr, [facility] [address] [id number] [address] [place] [address], [place] [id number] Apr, [facility] [address] [id number] [address] [place] [address], [place] [address] Apr, [facility] [address] [id number] [address] [place] [address], [place] [id number] January, [facility] [address] [id number] [address] [place] [address], [place] [id number] January, [facility] [address] [id number] [address] [place] [address], [place] [id number] Dec, [facility] [address] [id number] [address] [place] [address], [place] [address] Dec, [facility] [address] [id number] [address] [place] [address], [place] [address] Nov, [facility] [address] [id number] [address] [place] [address], [place] [address] Nov, [facility] [address] [id number] [address] [place] [address], [place] [address] Nov, [facility] [address] [id number] [address] [place] [address], [place] [address] Nov, [facility] [address] [id number] [address] [place] [address], [place] [address] Oct, [facility] [address] [id number] [address] [place] [address], [place] [address] Oct, [facility] [address] [id number] [address] [place] [address], [place] [id number] Oct, [facility] [address] [id number] [address] [place] [address], [place] [address] Sep, [facility] [address] [id number] [address] [place] [address], [place] [address] Sep, [facility] [address] [id number] [address] [place] [address], [place] [address] Aug, [facility] [address] [id number] [address] [place] [address], [place] [address] Aug, [facility] [address] [id number] [address] [place] [address], [place] [address] Jul, [facility] [address] [id number] [address] [place] [address], [place] [id number] Jul, [facility] [address] [id number] [address] [place] [address], [place] [id number] Jul, [facility] [address] [id number] [address] [place] [address], [place] [id number] 26 Jun, 2011 [facility] [address] [id number] [address] [place] [address], [place] [id number] 24 Jun, 2011 [facility] [address] [id number] [address] [place] [address], [place] [address] 11 Jun, 2011 [facility] [address] [id number] [address] [place] [address], [place] [id number] Jun, [facility] [address] [id number] [address] [place] [address], [place] [id number] Jun, [facility] [address] [id number] [address] [place] [address], [place] [address] Jun, [facility] [address] [id number] [address] [place] [address], [place] [address] Aug, [facility] [address] [id number] [address] [place] [address], [place] [address] Aug, [facility] [address] [id number] [address] [place] [address], [place] [address] Aug, [facility] [address] [id number] [address] [place] [address], [place] [address] Jul, [facility] [address] [id number] [address] [place] [address], [place] [address] Jul, [facility] [address] [id number] [address] [place] [address], [place] [address] Jul, [facility] [address] [id number] [address] [place] [address], [place] [address] Jul, [facility] [address] [id number] [address] [place] [address], [place] [id number] 15 Jul, 2010 [facility] [address] [id number] [address] [place] [address], [place] [id number] 08 Jul, 2010 [facility] [address] [id number] [address] [place] [address], [place] [address] Jun, [facility] [address] [id number] [address] [place] [id number] Apr, [facility] [address] [id number] [address] [place] [id number] Feb, [facility] [address] [id number] [address] [place] [id number] Oct, [facility] [address] [id number] [address] [place] [id number] Sep, [facility] [address] [id number] [address] [place] [id number] Aug, [facility] [address] [id number] [address] [place] [id number] Aug, [facility] [address] [id number] [address] [place] [id number] Aug, [facility] [address] [id number] [address] [place] [id number] Jul, [facility] [address] [id number] [address] [place] [id number] Jun, IMMUNIZATIONS No Known Immunizations SOCIAL HISTORY Never Assessed REASON FOR VISIT Controlled Med Refill PLAN OF CARE VITAL SIGNS MEDICATIONS Medication Instructions Dosage Frequency Start Date End Date Duration S tatus Tramadol HCl 50 mg Orally every 6 hrs 2 tablet as needed 6h Oct, Active Valium 5 mg Orally Once a day, prn restlessness 1 tablet Oct, Active RESULTS No Results PROCEDURES No Known [...]
--- OUTSIDE RECORDS SUMMARY | 2020-02-22 17:29 | XMS REPORT ---
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
--- OUTSIDE RECORDS SUMMARY | 2020-02-22 17:30 | XMS REPORT ---
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 Name Role Phone ZACKARY TRUJILLO Unavailable PROBLEMS Type Condition ICD9-CM Code EQW10-CH Code Onset Dates Condition S tatus SNOMED Code Problem Dyspepsia R10.13 Active 333322615 Problem History of anemia Z86.2 Active 27 6266640 Problem Cervical disc disease M50.90 Active 030684621 Problem Neck pain M54.2 Active [id number] ALLERGIES No Information ENCOUNTERS Encounter Location Date Diagnosis [facility] [address] [facility] [id number] [address] [place] [address] Apr, Cervical disc disease M50.90 [facility] [address] [id number] [address] [place] [address] Mar, Cervical disc disease M50.90 [facility] [address] [id number] [address] [place] [address] Mar, [facility] [address] [facility] [id number] [address] [place] [address] Mar, Cervical disc disease M50.90 [facility] [address] [facility] [id number] [address] [place] [address] Feb, Cervical disc disease M50.90 [facility] [address] [id number] [address] [place] [address] January, Cervical disc disease M50.90 [facility] [address] [facility] [id number] [address] [place] [address] Dec, [facility] [address] [facility] [id number] [address] [place] [address] Dec, Cervical disc disease M50.90 [facility] [address] [facility] [id number] [address] [place] [address] Nov, Cervical disc disease M50.90 [facility] [address] [facility] [id number] [address] [place] [address] Nov, Cervical disc disease M50.90 [facility] [address] [facility] [id number] [address] [place] [address] Oct, Cervical disc disease M50.90 [facility] [address] [facility] [id number] [address] [place] [address] Oct, Cervical disc disease M50.90 and Acute non-recurrent maxillary sinusitis J01.00 [place] [address] [facility] [id number] [address] [place] [address] Sep, Cervical disc disease M50.90 [facility] [address] [address] Sep, [facility] [address] [place] [id number] [place] [address] Sep, Fatigue, unspecified type R5 3.83 and Cough R05 [place] [address] [place] [id number] [address] [place] [address] Aug, Cervical disc disease M50.90 [facility] [address] [place] [id number] [address] [place] [address] Aug, Sore throat J02.9 ; Canker s ore K12.0 and History of anemia Z86.2 [facility] [address] [facility] [id number] [address] [place] [address] Jul, Cervical disc disease M50.90 [place] [address] [place] [id number] [address] [place] [address] Jun, Cervical disc disease M50.90 [place] [address] [place] [id number] [address] [place] [address] Jun, Cervical disc disease M50.90 [facility] [address] [id number] [address] [place] [address] May, Cervical disc disease M50.90 [facility] [address] [id number] [address] [place] [address] Apr, Cervical disc disease M50.90 [facility] [address] [id number] [address] [place] [address] Apr, [facility] [address] [id number] [address] [place] [address] Feb, Cervical disc disease M50.90 [facility] [address] [facility] [id number] [address] [place] [address] January, Cervical disc disease M50.90 [facility] [address] [facility] [id number] [address] [place] [address] Nov, [facility] [address] [facility] [id number] [address] [place] [address] Nov, Cervical disc disease M50.90 [facility] [address] [facility] [id number] [address] [place] [address] Nov, Acute cystitis with hematuri a N30.01 and Dysuria R30.0 [facility] [address] [facility] [id number] [address] [place] [address] Oct, Cervical disc disease M50.90 and Acute non-recurrent frontal sinusitis J01.10 [facility] [address] [id number] [address] [place] [address] Sep, Neck pain M54.2 [facility] [address] [facility] [id number] [address] [place] [address] Sep, [facility] [address] [facility] [id number] [address] [place] [address] Aug, Cervical disc disease M50.90 [facility] [address] [facility] [id number] [address] [place] [address] Jul, [facility] [address] [id number] [address] [place] [address] Jun, [facility] [address] [id number] [address] [place] [address] May, [facility] [address] [id number] [address] [place] [address] May, Screening for diabetes melli tus Z13.1 ; Chronic fatigue R53.82 and Edema, unspecified type R60.9 [facility] [address] [id number] [address] [place] [address] Apr, Neck pain M54.2 [facility] [address] [id number] [address] [place] [address] Mar, [facility] [address] [id number] [address] [place] [address] Mar, Neck pain M54.2 [facility] [address] [id number] [address] [place] [address] Feb, Cervical disc disease M50.90 [facility] [address] [id number] [address] [place] [address] Feb, Cervical disc disease M50.90 [facility] [address] [id number] [address] [place] [address] January, [facility] [address] [id number] [address] [place] [address] January, [facility] [address] [id number] [address] [place] [address] January, Cervical disc disease M50.90 [facility] [address] [id number] [address] [place] [address] January, [facility] [address] [id number] [address] [place] [address] January, [facility] [address] [id number] [address] [place] [address] Dec, Cervical disc disease M50.90 [facility] [address] [id number] [address] [place] [address] Nov, Cervical disc disease M50.90 [facility] [address] [id number] [address] [place] [address] Oct, Cervical disc disease M50.90 [facility] [address] [id number] [address] [place] [address] Sep, Cervical disc disease M50.90 [facility] [address] [id number] [address] [place] [id number] Aug, Dental caries K02.9 and Enco unter for dental examination Z01.20 [facility] [address] [id number] [address] [place] [address] Aug, [facility] [address] [id number] [address] [place] [address] Aug, [facility] [address] [id number] [address] [place] [id number] Aug, Encounter for dental examina tion Z01.20 [facility] [address] [id number] [address] [place] [address] Jul, [facility] [address] [id number] [address] [place] [address] Jun, Sinusitis J32.9 and Cervical disc disease M50.90 [facility] [address] [id number] [address] [place] [address] Jun, [facility] [address] [id number] [address] [place] [address] 24 May, 2015 [facility] [address] [id number] [address] [place] [address] 23 May, 2015 [facility] [address] [id number] [address] [place] [address] May, [facility] [address] [id number] [address] [place] [address] May, [facility] [address] [id number] [address] [place] [address] Apr, Cervical spondylosis without myelopathy 721.0 [facility] [address] [id number] [address] [place] [address] Mar, [facility] [address] [id number] [address] [place] [address] January, Cervical spondylosis without myelopathy 721.0 [facility] [address] [id number] [address] [place] [address] Dec, [facility] [address] [id number] [address] [place] [address] Dec, [facility] [address] [id number] [address] [place] [address] Dec, [facility] [address] [id number] [address] [place] [address] Nov, [facility] [address] [id number] [address] [place] [address] Nov, [facility] [address] [id number] [address] [place] [address] Oct, [facility] [address] [id number] [address] [place] [address] Oct, [facility] [address] [id number] [address] [place] [address] Oct, [facility] [address] [id number] [address] [place] [address] Oct, [facility] [address] [id number] [address] [place] [address] Oct, [facility] [address] [id number] [address] [place] [address] Oct, [facility] [address] [id number] [address] [place] [address], [place] [address] Oct, [facility] [address] [id number] [address] [place] [address], [place] [address] Oct, [facility] [address] [id number] [address] [place] [address], [place] [address] Oct, [facility] [address] [id number] [address] [place] [address], [place] [address] Oct, [facility] [address] [id number] [address] [place] [address], [place] [address] Sep, [facility] [address] [id number] [address] [place] [address], [place] [address] Sep, [facility] [address] [id number] [address] [place] [address], [place] [address] Sep, [facility] [address] [id number] [address] [place] [address], [place] [address] Sep, [facility] [address] [id number] [address] [place] [address], [place] [address] Sep, [facility] [address] [id number] [address] [place] [address], [place] [address] Sep, [facility] [address] [id number] [address] [place] [address], [place] [address] Sep, [facility] [address] [id number] [address] [place] [address], [place] [address] Sep, [facility] [address] [id number] [address] [place] [address], [place] [address] Sep, [facility] [address] [id number] [address] [place] [address], [place] [address] Aug, [facility] [address] [id number] [address] [place] [address], [place] [address] Aug, [facility] [address] [id number] [address] [place] [address], [place] [address] Aug, [facility] [address] [id number] [address] [place] [address], [place] [address] Aug, [facility] [address] [id number] [address] [place] [address], [place] [address] Jul, [facility] [address] [id number] [address] [place] [address], [place] [address] Jul, [facility] [address] [id number] [address] [place] [address], [place] [address] Jul, [facility] [address] [id number] [address] [place] [address], [place] [address] Jul, [facility] [address] [id number] [address] [place] [address], [place] [address] Jul, [facility] [address] [id number] [address] [place] [address], [place] [address] Jul, [facility] [address] [id number] [address] [place] [address], [place] [address] Jul, [facility] [address] [id number] [address] [place] [address], [place] [address] Jul, [facility] [address] [id number] [address] [place] [address], [place] [address] Jun, [facility] [address] [id number] [address] [place] [address], [place] [address] Jun, [facility] [address] [id number] [address] [place] [address], [place] [address] Jun, [facility] [address] [id number] [address] [place] [address], [place] [address] 20 Jun, 2014 [facility] [address] [id number] [address] [place] [address], [place] [address] 16 Jun, 2014 [facility] [address] [id number] [address] [place] [address], [place] [address] 15 Jun, 2014 [facility] [address] [id number] [address] [place] [address], [place] [address] 15 Jun, 2014 [facility] [address] [id number] [address] [place] [address], [place] [address] 14 Jun, 2014 [facility] [address] [id number] [address] [place] [address], [place] [address] 14 Jun, 2014 [facility] [address] [id number] [address] [place] [address], [place] [address] Jun, [facility] [address] [id number] [address] [place] [address], [place] [address] Jun, [facility] [address] [id number] [address] [place] [address], [place] [address] 24 May, 2014 [facility] [address] [id number] [address] [place] [address], [place] [address] 24 May, 2014 [facility] [address] [id number] [address] [place] [address], [place] [address] 08 May, 2014 [facility] [address] [id number] [address] [place] [address], [place] [address] 02 May, 2014 [facility] [address] [id number] [address] [place] [address], [place] [address] May, [facility] [address] [id number] [address] [place] [address], [place] [address] Apr, [facility] [address] [id number] [address] [place] [address], [place] [address] Apr, [facility] [address] [id number] [address] [place] [address], [place] [address] Apr, [facility] [address] [id number] [address] [place] [address], [place] [address] Apr, [facility] [address] [id number] [address] [place] [address], [place] [address] Apr, [facility] [address] [id number] [address] [place] [address] Apr, [facility] [address] [id number] [facility] [place] [address] Mar, [facility] [address] [id number] [address] [place] [address], [place] [address] Mar, [facility] [address] [id number] [address] [place] [address], [place] [address] Mar, [facility] [address] [id number] [address] [place] [address], [place] [address] Mar, [facility] [address] [id number] [address] [place] [address], [place] [address] Mar, [facility] [address] [id number] [address] [place] [address], [place] [address] Mar, [facility] [address] [id number] [address] [place] [address], [place] [address] Feb, [facility] [address] [id number] [address] [place] [address], [place] [address] Feb, [facility] [address] [id number] [address] [place] [address], [place] [address] Feb, [facility] [address] [id number] [address] [place] [address], [place] [address] Feb, [facility] [address] [id number] [address] [place] [address], [place] [address] Feb, [facility] [address] [id number] [address] [place] [address], [place] [address] Feb, [facility] [address] [id number] [address] [place] [address], [place] [address] Feb, [facility] [address] [id number] [address] [place] [address], [place] [address] Feb, [facility] [address] [id number] [address] [place] [address], [place] [address] January, [facility] [address] [id number] [address] [place] [address], [place] [address] January, [facility] [address] [id number] [address] [place] [address], [place] [address] January, [facility] [address] [id number] [address] [place] [address], [place] [address] January, [facility] [address] [id number] [address] [place] [address], [place] [address] January, [facility] [address] [id number] [address] [place] [address], [place] [address] January, [facility] [address] [id number] [address] [place] [address], [place] [address] January, [facility] [address] [id number] [address] [place] [address], [place] [address] January, [facility] [address] [id number] [address] [place] [address], [place] [address] Dec, [facility] [address] [id number] [address] [place] [address], [place] [address] Dec, [facility] [address] [id number] [address] [place] [address], [place] [address] Dec, [facility] [address] [id number] [address] [place] [address], [place] [address] Dec, [facility] [address] [id number] [address] [place] [address], [place] [address] Dec, [facility] [address] [id number] [address] [place] [address], [place] [address] Dec, [facility] [address] [id number] [address] [place] [address], [place] [address] Nov, [facility] [address] [id number] [address] [place] [address], [place] [address] Nov, [facility] [address] [id number] [address] [place] [address], [place] [address] Nov, [facility] [address] [id number] [facility] [place] [address] Nov, [facility] [address] [id number] [address] [place] [address], [place] [address] Nov, [facility] [address] [id number] [address] [place] [address], [place] [address] Nov, [facility] [address] [id number] [address] [place] [address], [place] [address] Nov, [facility] [address] [id number] [address] [place] [address], [place] [address] Nov, [facility] [address] [id number] [address] [place] [address], [place] [address] Oct, [facility] [address] [id number] [address] [place] [address], [place] [address] Oct, [facility] [address] [id number] [address] [place] [address], [place] [address] Sep, [facility] [address] [id number] [address] [place] [address], [place] [address] Sep, [facility] [address] [id number] [address] [place] [address], [place] [address] Sep, [facility] [address] [id number] [address] [place] [address], [place] [address] Sep, [facility] [address] [id number] [address] [place] [address], [place] [address] Aug, [facility] [address] [id number] [address] [place] [address], [place] [address] Aug, [facility] [address] [id number] [address] [place] [address], [place] [address] Aug, [facility] [address] [id number] [address] [place] [address], [place] [address] Aug, [facility] [address] [id number] [address] [place] [address], [place] [address] Jul, [facility] [address] [id number] [address] [place] [address], [place] [address] Jul, [facility] [address] [id number] [address] [place] [address], [place] [address] Jul, [facility] [address] [id number] [address] [place] [address], [place] [address] Jul, [facility] [address] [id number] [address] [place] [address], [place] [address] Jul, [facility] [address] [id number] [address] [place] [address], [place] [address] Jul, [facility] [address] [id number] [address] [place] [address], [place] [address] Jul, [facility] [address] [id number] [address] [place] [address], [place] [address] Jul, [facility] [address] [id number] [address] [place] [address], [place] [address] Jul, [facility] [address] [id number] [address] [place] [address], [place] [address] Jul, [facility] [address] [id number] [address] [place] [address], [place] [address] Jul, [facility] [address] [id number] [address] [place] [address], [place] [address] Jul, [facility] [address] [id number] [address] [place] [address], [place] [address] Jun, [facility] [address] [id number] [address] [place] [address], [place] [address] Jun, [facility] [address] [id number] [address] [place] [address], [place] [address] Jun, [facility] [address] [id number] [address] [place] [address], [place] [address] Jun, [facility] [address] [id number] [address] [place] [address], [place] [address] 16 Jun, 2013 [facility] [address] [id number] [address] [place] [address], [place] [address] 14 Jun, 2013 [facility] [address] [id number] [address] [place] [address], [place] [address] 14 Jun, 2013 [facility] [address] [id number] [address] [place] [address], [place] [address] 02 Jun, 2013 [facility] [address] [id number] [address] [place] [address], [place] [address] 15 May, 2013 [facility] [address] [id number] [address] [place] [address], [place] [address] 05 May, 2013 [facility] [address] [id number] [address] [place] [address], [place] [address] May, [facility] [address] [id number] [address] [place] [address], [place] [address] Apr, [facility] [address] [id number] [address] [place] [address], [place] [address] Apr, [facility] [address] [id number] [address] [place] [address], [place] [address] Mar, [facility] [address] [id number] [address] [place] [address], [place] [address] Mar, [facility] [address] [id number] [address] [place] [address], [place] [address] Feb, [facility] [address] [id number] [address] [place] [address], [place] [address] January, [facility] [address] [id number] [address] [place] [address], [place] [address] January, [facility] [address] [id number] [address] [place] [address], [place] [address] January, [facility] [address] [id number] [address] [place] [address], [place] [address] January, [facility] [address] [id number] [address] [place] [address], [place] [address] January, [facility] [address] [id number] [address] [place] [address], [place] [address] 29 Dec, 2012 [facility] [address] [id number] [address] [place] [address], [place] [address] 17 Dec, 2012 [facility] [address] [id number] [address] [place] [address], [place] [address] 02 Dec, 2012 [facility] [address] [id number] [address] [place] [address], [place] [address] Nov, [facility] [address] [id number] [address] [place] [address], [place] [address] 27 Oct, 2012 [facility] [address] [id number] [address] [place] [address], [place] [address] 18 Oct, 2012 [facility] [address] [id number] [address] [place] [address], [place] [address] 15 Oct, 2012 [facility] [address] [id number] [address] [place] [address], [place] [address] 18 Sep, 2012 [facility] [address] [id number] [address] [place] [address], [place] [address] 16 Sep, 2012 [facility] [address] [id number] [address] [place] [address], [place] [address] 14 Aug, 2012 [facility] [address] [id number] [address] [place] [address], [place] [address] 14 Aug, 2012 [facility] [address] [id number] [address] [place] [address], [place] [address] Aug, [facility] [address] [id number] [address] [place] [address], [place] [address] Aug, [facility] [address] [id number] [address] [place] [address], [place] [address] Jul, [facility] [address] [id number] [address] [place] [address], [place] [address] Jul, [facility] [address] [id number] [address] [place] [address], [place] [address] Jul, [facility] [address] [id number] [address] [place] [address], [place] [address] Jul, [facility] [address] [id number] [address] [place] [address], [place] [address] Jul, [facility] [address] [id number] [address] [place] [address], [place] [address] 15 Jun, 2012 [facility] [address] [id number] [address] [place] [address], [place] [address] 15 Jun, 2012 [facility] [address] [id number] [address] [place] [address], [place] [address] Jun, [facility] [address] [id number] [address] [place] [address], [place] [address] Jun, [facility] [address] [id number] [address] [place] [address], [place] [address] May, [facility] [address] [id number] [address] [place] [address], [place] [address] Apr, [facility] [address] [id number] [address] [place] [address], [place] [address] Apr, [facility] [address] [id number] [address] [place] [address], [place] [address] Apr, [facility] [address] [id number] [address] [place] [address], [place] [address] Apr, [facility] [address] [id number] [address] [place] [address], [place] [address] January, [facility] [address] [id number] [address] [place] [address], [place] [address] January, [facility] [address] [id number] [address] [place] [address], [place] [address] Dec, [facility] [address] [id number] [address] [place] [address], [place] [address] Dec, [facility] [address] [id number] [address] [place] [address], [place] [address] Nov, [facility] [address] [id number] [address] [place] [address], [place] [address] Nov, [facility] [address] [id number] [address] [place] [address], [place] [address] Nov, [facility] [address] [id number] [address] [place] [address], [place] [address] Nov, [facility] [address] [id number] [address] [place] [address], [place] [address] Oct, [facility] [address] [id number] [address] [place] [address], [place] [address] Oct, [facility] [address] [id number] [address] [place] [address], [place] [address] Oct, [facility] [address] [id number] [address] [place] [address], [place] [address] Sep, [facility] [address] [id number] [address] [place] [address], [place] [address] Sep, [facility] [address] [id number] [address] [place] [address], [place] [address] Aug, [facility] [address] [id number] [address] [place] [address], [place] [address] Aug, [facility] [address] [id number] [address] [place] [address], [place] [address] Jul, [facility] [address] [id number] [address] [place] [address], [place] [address] Jul, [facility] [address] [id number] [address] [place] [address], [place] [address] Jul, [facility] [address] [id number] [address] [place] [address], [place] [address] 26 Jun, 2011 [facility] [address] [id number] [address] [place] [address], [place] [address] 24 Jun, 2011 [facility] [address] [id number] [address] [place] [address], [place] [address] 11 Jun, 2011 [facility] [address] [id number] [address] [place] [address], [place] [address] Jun, [facility] [address] [id number] [address] [place] [address], [place] [address] Jun, [facility] [address] [id number] [address] [place] [address], [place] [address] Jun, [facility] [address] [id number] [address] [place] [address], [place] [address] Aug, [facility] [address] [id number] [address] [place] [address], [place] [address] Aug, [facility] [address] [id number] [address] [place] [address], [place] [address] Aug, [facility] [address] [id number] [address] [place] [address], [place] [address] Jul, [facility] [address] [id number] [address] [place] [address], [place] [address] Jul, [facility] [address] [id number] [address] [place] [address], [place] [address] Jul, [facility] [address] [id number] [address] [place] [address], [place] [address] Jul, [facility] [address] [id number] [address] [place] [address], [place] [address] 15 Jul, 2010 [facility] [address] [id number] [address] [place] [address], [place] [address] 08 Jul, 2010 [facility] [address] [id number] [address] [place] [address], [place] [address] Jun, [facility] [address] [id number] [address] [place] [address] Apr, [facility] [address] [id number] [address] [place] [address] Feb, [facility] [address] [id number] [address] [place] [address] Oct, [facility] [address] [id number] [address] [place] [address] Sep, [facility] [address] [id number] [address] [place] [address] Aug, [facility] [address] [id number] [address] [place] [address] Aug, [facility] [address] [id number] [address] [place] [address] Aug, [facility] [address] [id number] [address] [place] [address] Jul, [facility] [address] [id number] [address] [place] [address] Jun, IMMUNIZATIONS No Known Immunizations SOCIAL HISTORY Never Assessed REASON FOR VISIT Controlled med refill PLAN OF CARE VITAL SIGNS MEDICATIONS Medication Instructions Dosage Frequency Start Date End Date Duration S tatus Tramadol HCl 50 mg Orally every 6 hrs 2 tablet as needed 6h 10 Oct, 2016 Active RESULTS No Results PROCEDURES No Known [...]
--- OUTSIDE RECORDS SUMMARY | 2020-02-22 17:30 | XMS REPORT ---
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 Name Role Phone ZACKARY TRUJILLO Unavailable PROBLEMS Type Condition ICD9-CM Code PHA02-MW Code Onset Dates Condition S tatus SNOMED Code Problem Dyspepsia R10.13 Active 377278148 Problem History of anemia Z86.2 Active 27 9995964 Problem Cervical disc disease M50.90 Active 864287922 Problem Neck pain M54.2 Active [id number] ALLERGIES No Information ENCOUNTERS Encounter Location Date Diagnosis [facility] [address] [facility] [id number] [address] [place] [phone] Apr, Cervical disc disease M50.90 [facility] [address] [id number] [address] [place] [address] Mar, Cervical disc disease M50.90 [facility] [address] [id number] [address] [place] [phone] Mar, [facility] [address] [facility] [id number] [address] [place] [address] Mar, Cervical disc disease M50.90 [facility] [address] [facility] [id number] [address] [place] [address] Feb, Cervical disc disease M50.90 [facility] [address] [id number] [address] [place] [address] January, Cervical disc disease M50.90 [facility] [address] [facility] [id number] [address] [place] [phone] Dec, [facility] [address] [facility] [id number] [address] [place] [address] Dec, Cervical disc disease M50.90 [facility] [address] [facility] [id number] [address] [place] [address] Nov, Cervical disc disease M50.90 [facility] [address] [facility] [id number] [address] [place] [address] Nov, Cervical disc disease M50.90 [facility] [address] [facility] [id number] [address] [place] [address] Oct, Cervical disc disease M50.90 [facility] [address] [facility] [id number] [address] [place] [address] Oct, Cervical disc disease M50.90 and Acute non-recurrent maxillary sinusitis J01.00 [place] [address] [facility] [id number] [address] [place] [address] Sep, Cervical disc disease M50.90 [facility] [address] [phone] Sep, [facility] [address] [place] [id number] [place] [address] Sep, Fatigue, unspecified type R5 3.83 and Cough R05 [place] [address] [place] [id number] [address] [place] [phone] Aug, Cervical disc disease M50.90 [facility] [address] [place] [id number] [address] [place] [phone] Aug, Sore throat J02.9 ; Canker s ore K12.0 and History of anemia Z86.2 [facility] [address] [facility] [id number] [address] [place] [address] Jul, Cervical disc disease M50.90 [place] [address] [place] [id number] [address] [place] [address] Jun, Cervical disc disease M50.90 [place] [address] [place] [id number] [address] [place] [address] Jun, Cervical disc disease M50.90 [facility] [address] [id number] [address] [place] [address] May, Cervical disc disease M50.90 [facility] [address] [id number] [address] [place] [address] Apr, Cervical disc disease M50.90 [facility] [address] [id number] [address] [place] [address] Apr, [facility] [address] [id number] [address] [place] [address] Feb, Cervical disc disease M50.90 [facility] [address] [facility] [id number] [address] [place] [address] January, Cervical disc disease M50.90 [facility] [address] [facility] [id number] [address] [place] [address] Nov, [facility] [address] [facility] [id number] [address] [place] [address] Nov, Cervical disc disease M50.90 [facility] [address] [facility] [id number] [address] [place] [address] Nov, Acute cystitis with hematuri a N30.01 and Dysuria R30.0 [facility] [address] [facility] [id number] [address] [place] [address] Oct, Cervical disc disease M50.90 and Acute non-recurrent frontal sinusitis J01.10 [facility] [address] [id number] [address] [place] [address] Sep, Neck pain M54.2 [facility] [address] [facility] [id number] [address] [place] [address] Sep, [facility] [address] [facility] [id number] [address] [place] [address] Aug, Cervical disc disease M50.90 [facility] [address] [facility] [id number] [address] [place] [address] Jul, [facility] [address] [id number] [address] [place] [phone] Jun, [facility] [address] [id number] [address] [place] [address] May, [facility] [address] [id number] [address] [place] [address] May, Screening for diabetes melli tus Z13.1 ; Chronic fatigue R53.82 and Edema, unspecified type R60.9 [facility] [address] [id number] [address] [place] [address] Apr, Neck pain M54.2 [facility] [address] [id number] [address] [place] [address] Mar, [facility] [address] [id number] [address] [place] [address] Mar, Neck pain M54.2 [facility] [address] [id number] [address] [place] [address] Feb, Cervical disc disease M50.90 [facility] [address] [id number] [address] [place] [address] Feb, Cervical disc disease M50.90 [facility] [address] [id number] [address] [place] [address] January, [facility] [address] [id number] [address] [place] [address] January, [facility] [address] [id number] [address] [place] [address] January, Cervical disc disease M50.90 [facility] [address] [id number] [address] [place] [address] January, [facility] [address] [id number] [address] [place] [address] January, [facility] [address] [id number] [address] [place] [address] Dec, Cervical disc disease M50.90 [facility] [address] [id number] [address] [place] [address] Nov, Cervical disc disease M50.90 [facility] [address] [id number] [address] [place] [address] Oct, Cervical disc disease M50.90 [facility] [address] [id number] [address] [place] [address] Sep, Cervical disc disease M50.90 [facility] [address] [id number] [address] [place] [id number] Aug, Dental caries K02.9 and Enco unter for dental examination Z01.20 [facility] [address] [id number] [address] [place] [phone] Aug, [facility] [address] [id number] [address] [place] [id number] Aug, [facility] [address] [id number] [address] [place] [id number] Aug, Encounter for dental examina tion Z01.20 [facility] [address] [id number] [address] [place] [id number] Jul, [facility] [address] [id number] [address] [place] [address] Jun, Sinusitis J32.9 and Cervical disc disease M50.90 [facility] [address] [id number] [address] [place] [phone] Jun, [facility] [address] [id number] [address] [place] [id number] 24 May, 2015 [facility] [address] [id number] [address] [place] [address] 23 May, 2015 [facility] [address] [id number] [address] [place] [phone] May, [facility] [address] [id number] [address] [place] [phone] May, [facility] [address] [id number] [address] [place] [address] Apr, Cervical spondylosis without myelopathy 721.0 [facility] [address] [id number] [address] [place] [id number] Mar, [facility] [address] [id number] [address] [place] [address] January, Cervical spondylosis without myelopathy 721.0 [facility] [address] [id number] [address] [place] [phone] Dec, [facility] [address] [id number] [address] [place] [phone] Dec, [facility] [address] [id number] [address] [place] [phone] Dec, [facility] [address] [id number] [address] [place] [phone] Nov, [facility] [address] [id number] [address] [place] [phone] Nov, [facility] [address] [id number] [address] [place] [phone] Oct, [facility] [address] [id number] [address] [place] [phone] Oct, [facility] [address] [id number] [address] [place] [phone] Oct, [facility] [address] [id number] [address] [place] [phone] Oct, [facility] [address] [id number] [address] [place] [phone] Oct, [facility] [address] [id number] [address] [place] [phone] Oct, [facility] [address] [id number] [address] [place] [address], [place] [address] Oct, [facility] [address] [id number] [address] [place] [address], [place] [address] Oct, [facility] [address] [id number] [address] [place] [address], [place] [address] Oct, [facility] [address] [id number] [address] [place] [address], [place] [address] Oct, [facility] [address] [id number] [address] [place] [address], [place] [address] Sep, [facility] [address] [id number] [address] [place] [address], [place] [id number] Sep, [facility] [address] [id number] [address] [place] [address], [place] [address] Sep, [facility] [address] [id number] [address] [place] [address], [place] [address] Sep, [facility] [address] [id number] [address] [place] [address], [place] [address] Sep, [facility] [address] [id number] [address] [place] [address], [place] [address] Sep, [facility] [address] [id number] [address] [place] [address], [place] [address] Sep, [facility] [address] [id number] [address] [place] [address], [place] [address] Sep, [facility] [address] [id number] [address] [place] [address], [place] [address] Sep, [facility] [address] [id number] [address] [place] [address], [place] [address] Aug, [facility] [address] [id number] [address] [place] [address], [place] [address] Aug, [facility] [address] [id number] [address] [place] [address], [place] [address] Aug, [facility] [address] [id number] [address] [place] [address], [place] [address] Aug, [facility] [address] [id number] [address] [place] [address], [place] [address] Jul, [facility] [address] [id number] [address] [place] [address], [place] [address] Jul, [facility] [address] [id number] [address] [place] [address], [place] [address] Jul, [facility] [address] [id number] [address] [place] [address], [place] [address] Jul, [facility] [address] [id number] [address] [place] [address], [place] [address] Jul, [facility] [address] [id number] [address] [place] [address], [place] [address] Jul, [facility] [address] [id number] [address] [place] [address], [place] [address] Jul, [facility] [address] [id number] [address] [place] [address], [place] [address] Jul, [facility] [address] [id number] [address] [place] [address], [place] [address] Jun, [facility] [address] [id number] [address] [place] [address], [place] [address] Jun, [facility] [address] [id number] [address] [place] [address], [place] [address] Jun, [facility] [address] [id number] [address] [place] [address], [place] [address] 20 Jun, 2014 [facility] [address] [id number] [address] [place] [address], [place] [address] 16 Jun, 2014 [facility] [address] [id number] [address] [place] [address], [place] [address] 15 Jun, 2014 [facility] [address] [id number] [address] [place] [address], [place] [address] 15 Jun, 2014 [facility] [address] [id number] [address] [place] [address], [place] [address] 14 Jun, 2014 [facility] [address] [id number] [address] [place] [address], [place] [address] 14 Jun, 2014 [facility] [address] [id number] [address] [place] [address], [place] [address] Jun, [facility] [address] [id number] [address] [place] [address], [place] [address] Jun, [facility] [address] [id number] [address] [place] [address], [place] [address] 24 May, 2014 [facility] [address] [id number] [address] [place] [address], [place] [address] 24 May, 2014 [facility] [address] [id number] [address] [place] [address], [place] [address] 08 May, 2014 [facility] [address] [id number] [address] [place] [address], [place] [address] 02 May, 2014 [facility] [address] [id number] [address] [place] [address], [place] [address] May, [facility] [address] [id number] [address] [place] [address], [place] [address] Apr, [facility] [address] [id number] [address] [place] [address], [place] [address] Apr, [facility] [address] [id number] [address] [place] [address], [place] [address] Apr, [facility] [address] [id number] [address] [place] [address], [place] [address] Apr, [facility] [address] [id number] [address] [place] [address], [place] [address] Apr, [facility] [address] [id number] [address] [place] [phone] Apr, [facility] [address] [id number] [facility] [place] [address] Mar, [facility] [address] [id number] [address] [place] [address], [place] [address] Mar, [facility] [address] [id number] [address] [place] [address], [place] [address] Mar, [facility] [address] [id number] [address] [place] [address], [place] [address] Mar, [facility] [address] [id number] [address] [place] [address], [place] [address] Mar, [facility] [address] [id number] [address] [place] [address], [place] [address] Mar, [facility] [address] [id number] [address] [place] [address], [place] [address] Feb, [facility] [address] [id number] [address] [place] [address], [place] [address] Feb, [facility] [address] [id number] [address] [place] [address], [place] [address] Feb, [facility] [address] [id number] [address] [place] [address], [place] [address] Feb, [facility] [address] [id number] [address] [place] [address], [place] [address] Feb, [facility] [address] [id number] [address] [place] [address], [place] [address] Feb, [facility] [address] [id number] [address] [place] [address], [place] [address] Feb, [facility] [address] [id number] [address] [place] [address], [place] [address] Feb, [facility] [address] [id number] [address] [place] [address], [place] [address] January, [facility] [address] [id number] [address] [place] [address], [place] [address] January, [facility] [address] [id number] [address] [place] [address], [place] [address] January, [facility] [address] [id number] [address] [place] [address], [place] [address] January, [facility] [address] [id number] [address] [place] [address], [place] [address] January, [facility] [address] [id number] [address] [place] [address], [place] [address] January, [facility] [address] [id number] [address] [place] [address], [place] [address] January, [facility] [address] [id number] [address] [place] [address], [place] [address] January, [facility] [address] [id number] [address] [place] [address], [place] [address] Dec, [facility] [address] [id number] [address] [place] [address], [place] [address] Dec, [facility] [address] [id number] [address] [place] [address], [place] [address] Dec, [facility] [address] [id number] [address] [place] [address], [place] [address] Dec, [facility] [address] [id number] [address] [place] [address], [place] [id number] Dec, [facility] [address] [id number] [address] [place] [address], [place] [id number] Dec, [facility] [address] [id number] [address] [place] [address], [place] [id number] Nov, [facility] [address] [id number] [address] [place] [address], [place] [id number] Nov, [facility] [address] [id number] [address] [place] [address], [place] [address] Nov, [facility] [address] [id number] [facility] [place] [address] Nov, [facility] [address] [id number] [address] [place] [address], [place] [address] Nov, [facility] [address] [id number] [address] [place] [address], [place] [id number] Nov, [facility] [address] [id number] [address] [place] [address], [place] [id number] Nov, [facility] [address] [id number] [address] [place] [address], [place] [address] Nov, [facility] [address] [id number] [address] [place] [address], [place] [id number] Oct, [facility] [address] [id number] [address] [place] [address], [place] [id number] Oct, [facility] [address] [id number] [address] [place] [address], [place] [address] Sep, [facility] [address] [id number] [address] [place] [address], [place] [address] Sep, [facility] [address] [id number] [address] [place] [address], [place] [address] Sep, [facility] [address] [id number] [address] [place] [address], [place] [address] Sep, [facility] [address] [id number] [address] [place] [address], [place] [address] Aug, [facility] [address] [id number] [address] [place] [address], [place] [address] Aug, [facility] [address] [id number] [address] [place] [address], [place] [id number] Aug, [facility] [address] [id number] [address] [place] [address], [place] [id number] Aug, [facility] [address] [id number] [address] [place] [address], [place] [address] Jul, [facility] [address] [id number] [address] [place] [address], [place] [address] Jul, [facility] [address] [id number] [address] [place] [address], [place] [id number] Jul, [facility] [address] [id number] [address] [place] [address], [place] [id number] Jul, [facility] [address] [id number] [address] [place] [address], [place] [address] Jul, [facility] [address] [id number] [address] [place] [address], [place] [id number] Jul, [facility] [address] [id number] [address] [place] [address], [place] [id number] Jul, [facility] [address] [id number] [address] [place] [address], [place] [id number] Jul, [facility] [address] [id number] [address] [place] [address], [place] [id number] Jul, [facility] [address] [id number] [address] [place] [address], [place] [address] Jul, [facility] [address] [id number] [address] [place] [address], [place] [address] Jul, [facility] [address] [id number] [address] [place] [address], [place] [id number] Jul, [facility] [address] [id number] [address] [place] [address], [place] [address] Jun, [facility] [address] [id number] [address] [place] [address], [place] [address] Jun, [facility] [address] [id number] [address] [place] [address], [place] [address] Jun, [facility] [address] [id number] [address] [place] [address], [place] [address] Jun, [facility] [address] [id number] [address] [place] [address], [place] [id number] 16 Jun, 2013 [facility] [address] [id number] [address] [place] [address], [place] [id number] 14 Jun, 2013 [facility] [address] [id number] [address] [place] [address], [place] [id number] 14 Jun, 2013 [facility] [address] [id number] [address] [place] [address], [place] [id number] 02 Jun, 2013 [facility] [address] [id number] [address] [place] [address], [place] [id number] 15 May, 2013 [facility] [address] [id number] [address] [place] [address], [place] [id number] 05 May, 2013 [facility] [address] [id number] [address] [place] [address], [place] [address] May, [facility] [address] [id number] [address] [place] [address], [place] [id number] Apr, [facility] [address] [id number] [address] [place] [address], [place] [id number] Apr, [facility] [address] [id number] [address] [place] [address], [place] [id number] Mar, [facility] [address] [id number] [address] [place] [address], [place] [id number] Mar, [facility] [address] [id number] [address] [place] [address], [place] [address] Feb, [facility] [address] [id number] [address] [place] [address], [place] [address] January, [facility] [address] [id number] [address] [place] [address], [place] [address] January, [facility] [address] [id number] [address] [place] [address], [place] [address] January, [facility] [address] [id number] [address] [place] [address], [place] [id number] January, [facility] [address] [id number] [address] [place] [address], [place] [id number] January, [facility] [address] [id number] [address] [place] [address], [place] [id number] 29 Dec, 2012 [facility] [address] [id number] [address] [place] [address], [place] [id number] 17 Dec, 2012 [facility] [address] [id number] [address] [place] [address], [place] [id number] 02 Dec, 2012 [facility] [address] [id number] [address] [place] [address], [place] [address] Nov, [facility] [address] [id number] [address] [place] [address], [place] [id number] 27 Oct, 2012 [facility] [address] [id number] [address] [place] [address], [place] [id number] 18 Oct, 2012 [facility] [address] [id number] [address] [place] [address], [place] [id number] 15 Oct, 2012 [facility] [address] [id number] [address] [place] [address], [place] [id number] 18 Sep, 2012 [facility] [address] [id number] [address] [place] [address], [place] [id number] 16 Sep, 2012 [facility] [address] [id number] [address] [place] [address], [place] [id number] 14 Aug, 2012 [facility] [address] [id number] [address] [place] [address], [place] [address] 14 Aug, 2012 [facility] [address] [id number] [address] [place] [address], [place] [id number] Aug, [facility] [address] [id number] [address] [place] [address], [place] [id number] Aug, [facility] [address] [id number] [address] [place] [address], [place] [id number] Jul, [facility] [address] [id number] [address] [place] [address], [place] [address] Jul, [facility] [address] [id number] [address] [place] [address], [place] [id number] Jul, [facility] [address] [id number] [address] [place] [address], [place] [id number] Jul, [facility] [address] [id number] [address] [place] [address], [place] [id number] Jul, [facility] [address] [id number] [address] [place] [address], [place] [address] 15 Jun, 2012 [facility] [address] [id number] [address] [place] [address], [place] [id number] 15 Jun, 2012 [facility] [address] [id number] [address] [place] [address], [place] [id number] Jun, [facility] [address] [id number] [address] [place] [address], [place] [address] Jun, [facility] [address] [id number] [address] [place] [address], [place] [id number] May, [facility] [address] [id number] [address] [place] [address], [place] [address] Apr, [facility] [address] [id number] [address] [place] [address], [place] [address] Apr, [facility] [address] [id number] [address] [place] [address], [place] [address] Apr, [facility] [address] [id number] [address] [place] [address], [place] [address] Apr, [facility] [address] [id number] [address] [place] [address], [place] [address] January, [facility] [address] [id number] [address] [place] [address], [place] [address] January, [facility] [address] [id number] [address] [place] [address], [place] [id number] Dec, [facility] [address] [id number] [address] [place] [address], [place] [address] Dec, [facility] [address] [id number] [address] [place] [address], [place] [address] Nov, [facility] [address] [id number] [address] [place] [address], [place] [address] Nov, [facility] [address] [id number] [address] [place] [address], [place] [address] Nov, [facility] [address] [id number] [address] [place] [address], [place] [address] Nov, [facility] [address] [id number] [address] [place] [address], [place] [address] Oct, [facility] [address] [id number] [address] [place] [address], [place] [address] Oct, [facility] [address] [id number] [address] [place] [address], [place] [address] Oct, [facility] [address] [id number] [address] [place] [address], [place] [address] Sep, [facility] [address] [id number] [address] [place] [address], [place] [address] Sep, [facility] [address] [id number] [address] [place] [address], [place] [address] Aug, [facility] [address] [id number] [address] [place] [address], [place] [id number] Aug, [facility] [address] [id number] [address] [place] [address], [place] [address] Jul, [facility] [address] [id number] [address] [place] [address], [place] [address] Jul, [facility] [address] [id number] [address] [place] [address], [place] [address] Jul, [facility] [address] [id number] [address] [place] [address], [place] [address] 26 Jun, 2011 [facility] [address] [id number] [address] [place] [address], [place] [id number] 24 Jun, 2011 [facility] [address] [id number] [address] [place] [address], [place] [id number] 11 Jun, 2011 [facility] [address] [id number] [address] [place] [address], [place] [id number] Jun, [facility] [address] [id number] [address] [place] [address], [place] [address] Jun, [facility] [address] [id number] [address] [place] [address], [place] [address] Jun, [facility] [address] [id number] [address] [place] [address], [place] [address] Aug, [facility] [address] [id number] [address] [place] [address], [place] [address] Aug, [facility] [address] [id number] [address] [place] [address], [place] [address] Aug, [facility] [address] [id number] [address] [place] [address], [place] [address] Jul, [facility] [address] [id number] [address] [place] [address], [place] [address] Jul, [facility] [address] [id number] [address] [place] [address], [place] [address] Jul, [facility] [address] [id number] [address] [place] [address], [place] [address] Jul, [facility] [address] [id number] [address] [place] [address], [place] [address] 15 Jul, 2010 [facility] [address] [id number] [address] [place] [address], [place] [id number] 08 Jul, 2010 [facility] [address] [id number] [address] [place] [address], [place] [address] Jun, [facility] [address] [id number] [address] [place] [id number] Apr, [facility] [address] [id number] [address] [place] [id number] Feb, [facility] [address] [id number] [address] [place] [id number] Oct, [facility] [address] [id number] [address] [place] [phone] Sep, [facility] [address] [id number] [address] [place] [id number] Aug, [facility] [address] [id number] [address] [place] [id number] Aug, [facility] [address] [id number] [address] [place] [id number] Aug, [facility] [address] [id number] [address] [place] [id number] Jul, [facility] [address] [id number] [address] [place] [id number] Jun, IMMUNIZATIONS No Known Immunizations SOCIAL HISTORY Never Assessed REASON FOR VISIT Controlled refill- Early PLAN OF CARE VITAL SIGNS MEDICATIONS Medication [...]
--- OUTSIDE RECORDS SUMMARY | 2020-02-22 17:30 | XMS REPORT ---
Author Author Marion TRUJILLO Organization [facility] Address [address] [place] [address] Care Team Providers Care Marketing Programs Manager Name Role Phone ZACKARY TRUJILLO Unavailable PROBLEMS Type Condition ICD9-CM Code [id number] Code Onset Dates Condition S tatus SNOMED Code Problem Dyspepsia R10.13 Active 495571321 Problem History of anemia Z86.2 Active 27 5288949 Problem Cervical disc disease M50.90 Active 884655546 Problem Neck pain M54.2 Active [id number] ALLERGIES No Information ENCOUNTERS Encounter Location Date Diagnosis [facility] [address] [facility] [id number] [address] [place] [phone] Apr, Cervical disc disease M50.90 [facility] [address] [id number] [address] [place] [id number] Mar, Cervical disc disease M50.90 [facility] [address] [id number] [address] [place] [phone] Mar, [facility] [address] [facility] [id number] [address] [place] [phone] Mar, Cervical disc disease M50.90 [facility] [address] [facility] [id number] [address] [place] [id number] Feb, Cervical disc disease M50.90 [facility] [address] [id number] [address] [place] [phone] January, Cervical disc disease M50.90 [facility] [address] [facility] [id number] [address] [place] [phone] Dec, [facility] [address] [facility] [id number] [address] [place] [phone] Dec, Cervical disc disease M50.90 [facility] [address] [facility] [id number] [address] [place] [phone] Nov, Cervical disc disease M50.90 [facility] [address] [facility] [id number] [address] [place] [phone] Nov, Cervical disc disease M50.90 [facility] [address] [facility] [id number] [address] [place] [phone] Oct, Cervical disc disease M50.90 [facility] [address] [facility] [id number] [address] [place] [phone] Oct, Cervical disc disease M50.90 and Acute non-recurrent maxillary sinusitis J01.00 [place] [address] [facility] [id number] [address] [place] [phone] Sep, Cervical disc disease M50.90 [facility] [address] [phone] Sep, [facility] [address] [place] [id number] [place] [phone] Sep, Fatigue, unspecified type R5 3.83 and Cough R05 [place] [address] [place] [id number] [address] [place] [phone] Aug, Cervical disc disease M50.90 [facility] [address] [place] [id number] [address] [place] [phone] Aug, Sore throat J02.9 ; Canker s ore K12.0 and History of anemia Z86.2 [facility] [address] [facility] [id number] [address] [place] [phone] Jul, Cervical disc disease M50.90 [place] [address] [place] [id number] [address] [place] [phone] Jun, Cervical disc disease M50.90 [place] [address] [place] [id number] [address] [place] [phone] Jun, Cervical disc disease M50.90 [facility] [address] [id number] [address] [place] [phone] May, Cervical disc disease M50.90 [facility] [address] [id number] [address] [place] [phone] Apr, Cervical disc disease M50.90 [facility] [address] [id number] [address] [place] [phone] Apr, [facility] [address] [id number] [address] [place] [phone] Feb, Cervical disc disease M50.90 [facility] [address] [facility] [id number] [address] [place] [phone] January, Cervical disc disease M50.90 [facility] [address] [facility] [id number] [address] [place] [phone] Nov, [facility] [address] [facility] [id number] [address] [place] [phone] Nov, Cervical disc disease M50.90 [facility] [address] [facility] [id number] [address] [place] [phone] Nov, Acute cystitis with hematuri a N30.01 and Dysuria R30.0 [facility] [address] [facility] [id number] [address] [place] [phone] Oct, Cervical disc disease M50.90 and Acute non-recurrent frontal sinusitis J01.10 [facility] [address] [id number] [address] [place] [phone] Sep, Neck pain M54.2 [facility] [address] [facility] [id number] [address] [place] [phone] Sep, [facility] [address] [facility] [id number] [address] [place] [phone] Aug, Cervical disc disease M50.90 [facility] [address] [facility] [id number] [address] [place] [phone] Jul, [facility] [address] [id number] [address] [place] [phone] Jun, [facility] [address] [id number] [address] [place] [phone] May, [facility] [address] [id number] [address] [place] [phone] May, Screening for diabetes melli tus Z13.1 ; Chronic fatigue R53.82 and Edema, unspecified type R60.9 [facility] [address] [id number] [address] [place] [phone] Apr, Neck pain M54.2 [facility] [address] [id number] [address] [place] [phone] Mar, [facility] [address] [id number] [address] [place] [phone] Mar, Neck pain M54.2 [facility] [address] [id number] [address] [place] [phone] Feb, Cervical disc disease M50.90 [facility] [address] [id number] [address] [place] [phone] Feb, Cervical disc disease M50.90 [facility] [address] [id number] [address] [place] [phone] January, [facility] [address] [id number] [address] [place] [phone] January, [facility] [address] [id number] [address] [place] [phone] January, Cervical disc disease M50.90 [facility] [address] [id number] [address] [place] [phone] January, [facility] [address] [id number] [address] [place] [phone] January, [facility] [address] [id number] [address] [place] [phone] Dec, Cervical disc disease M50.90 [facility] [address] [id number] [address] [place] [phone] Nov, Cervical disc disease M50.90 [facility] [address] [id number] [address] [place] [phone] Oct, Cervical disc disease M50.90 [facility] [address] [id number] [address] [place] [phone] Sep, Cervical disc disease M50.90 [facility] [address] [id number] [address] [place] [id number] Aug, Dental caries K02.9 and Enco unter for dental examination Z01.20 [facility] [address] [id number] [address] [place] [phone] Aug, [facility] [address] [id number] [address] [place] [id number] Aug, [facility] [address] [id number] [address] [place] [id number] Aug, Encounter for dental examina tion Z01.20 [facility] [address] [id number] [address] [place] [phone] Jul, [facility] [address] [id number] [address] [place] [phone] Jun, Sinusitis J32.9 and Cervical disc disease M50.90 [facility] [address] [id number] [address] [place] [phone] Jun, [facility] [address] [id number] [address] [place] [phone] 24 May, 2015 [facility] [address] [id number] [address] [place] [phone] 23 May, 2015 [facility] [address] [id number] [address] [place] [phone] May, [facility] [address] [id number] [address] [place] [phone] May, [facility] [address] [id number] [address] [place] [phone] Apr, Cervical spondylosis without myelopathy 721.0 [facility] [address] [id number] [address] [place] [phone] Mar, [facility] [address] [id number] [address] [place] [phone] January, Cervical spondylosis without myelopathy 721.0 [facility] [address] [id number] [address] [place] [phone] Dec, [facility] [address] [id number] [address] [place] [phone] Dec, [facility] [address] [id number] [address] [place] [phone] Dec, [facility] [address] [id number] [address] [place] [phone] Nov, [facility] [address] [id number] [address] [place] [phone] Nov, [facility] [address] [id number] [address] [place] [phone] Oct, [facility] [address] [id number] [address] [place] [phone] Oct, [facility] [address] [id number] [address] [place] [phone] Oct, [facility] [address] [id number] [address] [place] [phone] Oct, [facility] [address] [id number] [address] [place] [phone] Oct, [facility] [address] [id number] [address] [place] [phone] Oct, [facility] [address] [id number] [address] [place] [address], [place] [address] Oct, [facility] [address] [id number] [address] [place] [address], [place] [address] Oct, [facility] [address] [id number] [address] [place] [address], [place] [address] Oct, [facility] [address] [id number] [address] [place] [address], [place] [address] Oct, [facility] [address] [id number] [address] [place] [address], [place] [address] Sep, [facility] [address] [id number] [address] [place] [address], [place] [address] Sep, [facility] [address] [id number] [address] [place] [address], [place] [address] Sep, [facility] [address] [id number] [address] [place] [address], [place] [address] Sep, [facility] [address] [id number] [address] [place] [address], [place] [address] Sep, [facility] [address] [id number] [address] [place] [address], [place] [address] Sep, [facility] [address] [id number] [address] [place] [address], [place] [address] Sep, [facility] [address] [id number] [address] [place] [address], [place] [address] Sep, [facility] [address] [id number] [address] [place] [address], [place] [address] Sep, [facility] [address] [id number] [address] [place] [address], [place] [address] Aug, [facility] [address] [id number] [address] [place] [address], [place] [address] Aug, [facility] [address] [id number] [address] [place] [address], [place] [address] Aug, [facility] [address] [id number] [address] [place] [address], [place] [address] Aug, [facility] [address] [id number] [address] [place] [address], [place] [address] Jul, [facility] [address] [id number] [address] [place] [address], [place] [address] Jul, [facility] [address] [id number] [address] [place] [address], [place] [address] Jul, [facility] [address] [id number] [address] [place] [address], [place] [address] Jul, [facility] [address] [id number] [address] [place] [address], [place] [address] Jul, [facility] [address] [id number] [address] [place] [address], [place] [address] Jul, [facility] [address] [id number] [address] [place] [address], [place] [address] Jul, [facility] [address] [id number] [address] [place] [address], [place] [address] Jul, [facility] [address] [id number] [address] [place] [address], [place] [address] Jun, [facility] [address] [id number] [address] [place] [address], [place] [address] Jun, [facility] [address] [id number] [address] [place] [address], [place] [address] Jun, [facility] [address] [id number] [address] [place] [address], [place] [address] 20 Jun, 2014 [facility] [address] [id number] [address] [place] [address], [place] [address] 16 Jun, 2014 [facility] [address] [id number] [address] [place] [address], [place] [address] 15 Jun, 2014 [facility] [address] [id number] [address] [place] [address], [place] [address] 15 Jun, 2014 [facility] [address] [id number] [address] [place] [address], [place] [address] 14 Jun, 2014 [facility] [address] [id number] [address] [place] [address], [place] [address] 14 Jun, 2014 [facility] [address] [id number] [address] [place] [address], [place] [address] Jun, [facility] [address] [id number] [address] [place] [address], [place] [address] Jun, [facility] [address] [id number] [address] [place] [address], [place] [address] 24 May, 2014 [facility] [address] [id number] [address] [place] [address], [place] [address] 24 May, 2014 [facility] [address] [id number] [address] [place] [address], [place] [address] 08 May, 2014 [facility] [address] [id number] [address] [place] [address], [place] [address] 02 May, 2014 [facility] [address] [id number] [address] [place] [address], [place] [address] May, [facility] [address] [id number] [address] [place] [address], [place] [address] Apr, [facility] [address] [id number] [address] [place] [address], [place] [address] Apr, [facility] [address] [id number] [address] [place] [address], [place] [address] Apr, [facility] [address] [id number] [address] [place] [address], [place] [address] Apr, [facility] [address] [id number] [address] [place] [address], [place] [address] Apr, [facility] [address] [id number] [address] [place] [phone] Apr, [facility] [address] [id number] [facility] [place] [address] Mar, [facility] [address] [id number] [address] [place] [address], [place] [address] Mar, [facility] [address] [id number] [address] [place] [address], [place] [address] Mar, [facility] [address] [id number] [address] [place] [address], [place] [address] Mar, [facility] [address] [id number] [address] [place] [address], [place] [address] Mar, [facility] [address] [id number] [address] [place] [address], [place] [address] Mar, [facility] [address] [id number] [address] [place] [address], [place] [address] Feb, [facility] [address] [id number] [address] [place] [address], [place] [address] Feb, [facility] [address] [id number] [address] [place] [address], [place] [address] Feb, [facility] [address] [id number] [address] [place] [address], [place] [address] Feb, [facility] [address] [id number] [address] [place] [address], [place] [address] Feb, [facility] [address] [id number] [address] [place] [address], [place] [address] Feb, [facility] [address] [id number] [address] [place] [address], [place] [address] Feb, [facility] [address] [id number] [address] [place] [address], [place] [address] Feb, [facility] [address] [id number] [address] [place] [address], [place] [address] January, [facility] [address] [id number] [address] [place] [address], [place] [address] January, [facility] [address] [id number] [address] [place] [address], [place] [address] January, [facility] [address] [id number] [address] [place] [address], [place] [address] January, [facility] [address] [id number] [address] [place] [address], [place] [address] January, [facility] [address] [id number] [address] [place] [address], [place] [address] January, [facility] [address] [id number] [address] [place] [address], [place] [address] January, [facility] [address] [id number] [address] [place] [address], [place] [address] January, [facility] [address] [id number] [address] [place] [address], [place] [address] Dec, [facility] [address] [id number] [address] [place] [address], [place] [address] Dec, [facility] [address] [id number] [address] [place] [address], [place] [address] Dec, [facility] [address] [id number] [address] [place] [address], [place] [address] Dec, [facility] [address] [id number] [address] [place] [address], [place] [address] Dec, [facility] [address] [id number] [address] [place] [address], [place] [address] Dec, [facility] [address] [id number] [address] [place] [address], [place] [address] Nov, [facility] [address] [id number] [address] [place] [address], [place] [address] Nov, [facility] [address] [id number] [address] [place] [address], [place] [address] Nov, [facility] [address] [id number] [facility] [place] [address] Nov, [facility] [address] [id number] [address] [place] [address], [place] [address] Nov, [facility] [address] [id number] [address] [place] [address], [place] [address] Nov, [facility] [address] [id number] [address] [place] [address], [place] [address] Nov, [facility] [address] [id number] [address] [place] [address], [place] [address] Nov, [facility] [address] [id number] [address] [place] [address], [place] [address] Oct, [facility] [address] [id number] [address] [place] [address], [place] [address] Oct, [facility] [address] [id number] [address] [place] [address], [place] [address] Sep, [facility] [address] [id number] [address] [place] [address], [place] [address] Sep, [facility] [address] [id number] [address] [place] [address], [place] [address] Sep, [facility] [address] [id number] [address] [place] [address], [place] [address] Sep, [facility] [address] [id number] [address] [place] [address], [place] [address] Aug, [facility] [address] [id number] [address] [place] [address], [place] [address] Aug, [facility] [address] [id number] [address] [place] [address], [place] [address] Aug, [facility] [address] [id number] [address] [place] [address], [place] [address] Aug, [facility] [address] [id number] [address] [place] [address], [place] [address] Jul, [facility] [address] [id number] [address] [place] [address], [place] [address] Jul, [facility] [address] [id number] [address] [place] [address], [place] [address] Jul, [facility] [address] [id number] [address] [place] [address], [place] [address] Jul, [facility] [address] [id number] [address] [place] [address], [place] [address] Jul, [facility] [address] [id number] [address] [place] [address], [place] [address] Jul, [facility] [address] [id number] [address] [place] [address], [place] [address] Jul, [facility] [address] [id number] [address] [place] [address], [place] [address] Jul, [facility] [address] [id number] [address] [place] [address], [place] [address] Jul, [facility] [address] [id number] [address] [place] [address], [place] [address] Jul, [facility] [address] [id number] [address] [place] [address], [place] [address] Jul, [facility] [address] [id number] [address] [place] [address], [place] [address] Jul, [facility] [address] [id number] [address] [place] [address], [place] [address] Jun, [facility] [address] [id number] [address] [place] [address], [place] [address] Jun, [facility] [address] [id number] [address] [place] [address], [place] [address] Jun, [facility] [address] [id number] [address] [place] [address], [place] [address] Jun, [facility] [address] [id number] [address] [place] [address], [place] [address] 16 Jun, 2013 [facility] [address] [id number] [address] [place] [address], [place] [address] 14 Jun, 2013 [facility] [address] [id number] [address] [place] [address], [place] [address] 14 Jun, 2013 [facility] [address] [id number] [address] [place] [address], [place] [address] 02 Jun, 2013 [facility] [address] [id number] [address] [place] [address], [place] [address] 15 May, 2013 [facility] [address] [id number] [address] [place] [address], [place] [address] 05 May, 2013 [facility] [address] [id number] [address] [place] [address], [place] [address] May, [facility] [address] [id number] [address] [place] [address], [place] [address] Apr, [facility] [address] [id number] [address] [place] [address], [place] [address] Apr, [facility] [address] [id number] [address] [place] [address], [place] [address] Mar, [facility] [address] [id number] [address] [place] [address], [place] [address] Mar, [facility] [address] [id number] [address] [place] [address], [place] [address] Feb, [facility] [address] [id number] [address] [place] [address], [place] [address] January, [facility] [address] [id number] [address] [place] [address], [place] [address] January, [facility] [address] [id number] [address] [place] [address], [place] [address] January, [facility] [address] [id number] [address] [place] [address], [place] [address] January, [facility] [address] [id number] [address] [place] [address], [place] [address] January, [facility] [address] [id number] [address] [place] [address], [place] [address] 29 Dec, 2012 [facility] [address] [id number] [address] [place] [address], [place] [address] 17 Dec, 2012 [facility] [address] [id number] [address] [place] [address], [place] [address] 02 Dec, 2012 [facility] [address] [id number] [address] [place] [address], [place] [address] Nov, [facility] [address] [id number] [address] [place] [address], [place] [address] 27 Oct, 2012 [facility] [address] [id number] [address] [place] [address], [place] [address] 18 Oct, 2012 [facility] [address] [id number] [address] [place] [address], [place] [address] 15 Oct, 2012 [facility] [address] [id number] [address] [place] [address], [place] [address] 18 Sep, 2012 [facility] [address] [id number] [address] [place] [address], [place] [address] 16 Sep, 2012 [facility] [address] [id number] [address] [place] [address], [place] [address] 14 Aug, 2012 [facility] [address] [id number] [address] [place] [address], [place] [address] 14 Aug, 2012 [facility] [address] [id number] [address] [place] [address], [place] [address] Aug, [facility] [address] [id number] [address] [place] [address], [place] [address] Aug, [facility] [address] [id number] [address] [place] [address], [place] [address] Jul, [facility] [address] [id number] [address] [place] [address], [place] [address] Jul, [facility] [address] [id number] [address] [place] [address], [place] [address] Jul, [facility] [address] [id number] [address] [place] [address], [place] [address] Jul, [facility] [address] [id number] [address] [place] [address], [place] [address] Jul, [facility] [address] [id number] [address] [place] [address], [place] [address] 15 Jun, 2012 [facility] [address] [id number] [address] [place] [address], [place] [address] 15 Jun, 2012 [facility] [address] [id number] [address] [place] [address], [place] [address] Jun, [facility] [address] [id number] [address] [place] [address], [place] [address] Jun, [facility] [address] [id number] [address] [place] [address], [place] [address] May, [facility] [address] [id number] [address] [place] [address], [place] [address] Apr, [facility] [address] [id number] [address] [place] [address], [place] [address] Apr, [facility] [address] [id number] [address] [place] [address], [place] [address] Apr, [facility] [address] [id number] [address] [place] [address], [place] [address] Apr, [facility] [address] [id number] [address] [place] [address], [place] [address] January, [facility] [address] [id number] [address] [place] [address], [place] [address] January, [facility] [address] [id number] [address] [place] [address], [place] [address] Dec, [facility] [address] [id number] [address] [place] [address], [place] [address] Dec, [facility] [address] [id number] [address] [place] [address], [place] [address] Nov, [facility] [address] [id number] [address] [place] [address], [place] [address] Nov, [facility] [address] [id number] [address] [place] [address], [place] [address] Nov, [facility] [address] [id number] [address] [place] [address], [place] [address] Nov, [facility] [address] [id number] [address] [place] [address], [place] [address] Oct, [facility] [address] [id number] [address] [place] [address], [place] [address] Oct, [facility] [address] [id number] [address] [place] [address], [place] [address] Oct, [facility] [address] [id number] [address] [place] [address], [place] [address] Sep, [facility] [address] [id number] [address] [place] [address], [place] [address] Sep, [facility] [address] [id number] [address] [place] [address], [place] [address] Aug, [facility] [address] [id number] [address] [place] [address], [place] [address] Aug, [facility] [address] [id number] [address] [place] [address], [place] [address] Jul, [facility] [address] [id number] [address] [place] [address], [place] [address] Jul, [facility] [address] [id number] [address] [place] [address], [place] [address] Jul, [facility] [address] [id number] [address] [place] [address], [place] [address] 26 Jun, 2011 [facility] [address] [id number] [address] [place] [address], [place] [address] 24 Jun, 2011 [facility] [address] [id number] [address] [place] [address], [place] [address] 11 Jun, 2011 [facility] [address] [id number] [address] [place] [address], [place] [address] Jun, [facility] [address] [id number] [address] [place] [address], [place] [address] Jun, [facility] [address] [id number] [address] [place] [address], [place] [address] Jun, [facility] [address] [id number] [address] [place] [address], [place] [address] Aug, [facility] [address] [id number] [address] [place] [address], [place] [address] Aug, [facility] [address] [id number] [address] [place] [address], [place] [address] Aug, [facility] [address] [id number] [address] [place] [address], [place] [address] Jul, [facility] [address] [id number] [address] [place] [address], [place] [address] Jul, [facility] [address] [id number] [address] [place] [address], [place] [address] Jul, [facility] [address] [id number] [address] [place] [address], [place] [address] Jul, [facility] [address] [id number] [address] [place] [address], [place] [address] 15 Jul, 2010 [facility] [address] [id number] [address] [place] [address], [place] [address] 08 Jul, 2010 [facility] [address] [id number] [address] [place] [address], [place] [address] Jun, [facility] [address] [id number] [address] [place] [address] Apr, [facility] [address] [id number] [address] [place] [address] Feb, [facility] [address] [id number] [address] [place] [address] Oct, [facility] [address] [id number] [address] [place] [id number] Sep, [facility] [address] [id number] [address] [place] [address] Aug, [facility] [address] [id number] [address] [place] [id number] Aug, [facility] [address] [id number] [address] [place] [id number] Aug, [facility] [address] [id number] [address] [place] [address] Jul, [facility] [address] [id number] [address] [place] [address] Jun, IMMUNIZATIONS No Known Immunizations SOCIAL HISTORY Never Assessed REASON FOR VISIT Valium PLAN OF CARE VITAL SIGNS MEDICATIONS Medication [...]
--- OUTSIDE RECORDS SUMMARY | 2020-02-22 17:31 | XMS REPORT ---
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 Name Role Phone ZACKARY TRUJILLO Unavailable PROBLEMS Type Condition ICD9-CM Code OTS85-ZZ Code Onset Dates Condition S tatus SNOMED Code Problem Dyspepsia R10.13 Active 036370066 Problem History of anemia Z86.2 Active 27 2837109 Problem Cervical disc disease M50.90 Active 621610249 Problem Neck pain M54.2 Active [id number] ALLERGIES No Information ENCOUNTERS Encounter Location Date Diagnosis [facility] [address] [facility] [id number] [address] [place] [id number] Apr, [facility] [address] [id number] [address] [place] [id number] Mar, Cervical disc disease M50.90 [facility] [address] [id number] [address] [place] [id number] Mar, [facility] [address] [id number] [address] [place] [id number] Mar, Cervical disc disease M50.90 [facility] [address] [facility] [id number] [address] [place] [address] Feb, Cervical disc disease M50.90 [facility] [address] [id number] [address] [place] [address] January, Cervical disc disease M50.90 [facility] [address] [id number] [address] [place] [address] Dec, [facility] [address] [facility] [id number] [address] [place] [address] Dec, Cervical disc disease M50.90 [facility] [address] [facility] [id number] [address] [place] [address] Nov, Cervical disc disease M50.90 [facility] [address] [facility] [id number] [address] [place] [address] Nov, Cervical disc disease M50.90 [facility] [address] [place] [id number] [address] [place] [address] Oct, Cervical disc disease M50.90 [facility] [address] [place] [id number] [address] [place] [address] Oct, Cervical disc disease M50.90 and Acute non-recurrent maxillary sinusitis J01.00 [place] [address] [place] [id number] [place] [address] Sep, Cervical disc disease M50.90 [facility] [address] [address] Sep, [facility] [address] [address] Sep, Fatigue, unspecified type R5 3.83 and Cough R05 [place] [address] [place] [id number] [address] [place] [address] Aug, Cervical disc disease M50.90 [facility] [address] [place] [id number] [address] [place] [address] Aug, Sore throat J02.9 ; Canker s ore K12.0 and History of anemia Z86.2 [facility] [address] [place] [id number] [address] [place] [address] Jul, Cervical disc disease M50.90 [place] [address] [place] [id number] [address] [place] [address] Jun, Cervical disc disease M50.90 [place] [address] [place] [id number] [address] [place] [address] Jun, Cervical disc disease M50.90 [place] [address] [id number] [address] [place] [id number] May, Cervical disc disease M50.90 [facility] [address] [id number] [address] [place] [address] Apr, Cervical disc disease M50.90 [facility] [address] [facility] [id number] [address] [place] [phone] Apr, [facility] [address] [facility] [id number] [address] [place] [address] Feb, Cervical disc disease M50.90 [facility] [address] [facility] [id number] [address] [place] [id number] January, Cervical disc disease M50.90 [facility] [address] [facility] [id number] [address] [place] [id number] Nov, [facility] [address] [facility] [id number] [address] [place] [address] Nov, Cervical disc disease M50.90 [facility] [address] [facility] [id number] [address] [place] [address] Nov, Acute cystitis with hematuri a N30.01 and Dysuria R30.0 [facility] [address] [facility] [id number] [address] [place] [address] Oct, Cervical disc disease M50.90 and Acute non-recurrent frontal sinusitis J01.10 [facility] [address] [facility] [id number] [address] [place] [phone] Sep, Neck pain M54.2 [facility] [address] [facility] [id number] [address] [place] [address] Sep, [facility] [address] [facility] [id number] [address] [place] [address] Aug, Cervical disc disease M50.90 [facility] [address] [facility] [id number] [address] [place] [address] Jul, [facility] [address] [id number] [address] [place] [address] Jun, [facility] [address] [id number] [address] [place] [id number] May, [facility] [address] [id number] [address] [place] [address] May, Screening for diabetes melli tus Z13.1 ; Chronic fatigue R53.82 and Edema, unspecified type R60.9 [facility] [address] [id number] [address] [place] [address] Apr, Neck pain M54.2 [facility] [address] [id number] [address] [place] [id number] Mar, [facility] [address] [id number] [address] [place] [id number] Mar, Neck pain M54.2 [facility] [address] [id number] [address] [place] [id number] Feb, Cervical disc disease M50.90 [facility] [address] [id number] [address] [place] [id number] Feb, Cervical disc disease M50.90 [facility] [address] [id number] [address] [place] [id number] January, [facility] [address] [id number] [address] [place] [id number] January, [facility] [address] [id number] [address] [place] [id number] January, Cervical disc disease M50.90 [facility] [address] [id number] [address] [place] [id number] January, [facility] [address] [id number] [address] [place] [id number] January, [facility] [address] [id number] [address] [place] [id number] Dec, Cervical disc disease M50.90 [facility] [address] [id number] [address] [place] [id number] Nov, Cervical disc disease M50.90 [facility] [address] [id number] [address] [place] [id number] Oct, Cervical disc disease M50.90 [facility] [address] [id number] [address] [place] [id number] Sep, Cervical disc disease M50.90 [facility] [address] [id number] [address] [place] [id number] Aug, Dental caries K02.9 and Enco unter for dental examination Z01.20 [facility] [address] [id number] [address] [place] [id number] Aug, [facility] [address] [id number] [address] [place] [id number] Aug, [facility] [address] [id number] [address] [place] [id number] Aug, Encounter for dental examina tion Z01.20 [facility] [address] [id number] [address] [place] [id number] Jul, [facility] [address] [id number] [address] [place] [id number] Jun, Sinusitis J32.9 and Cervical disc disease M50.90 [facility] [address] [id number] [address] [place] [id number] Jun, [facility] [address] [id number] [address] [place] [id number] 24 May, 2015 [facility] [address] [id number] [address] [place] [id number] 23 May, 2015 [facility] [address] [id number] [address] [place] [id number] 22 May, 2015 [facility] [address] [id number] [address] [place] [id number] May, [facility] [address] [id number] [address] [place] [id number] Apr, Cervical spondylosis without myelopathy 721.0 [facility] [address] [id number] [address] [place] [id number] Mar, [facility] [address] [id number] [address] [place] [id number] January, Cervical spondylosis without myelopathy 721.0 [facility] [address] [id number] [address] [place] [id number] Dec, [facility] [address] [id number] [address] [place] [id number] Dec, [facility] [address] [id number] [address] [place] [id number] Dec, [facility] [address] [id number] [address] [place] [id number] Nov, [facility] [address] [id number] [address] [place] [id number] Nov, [facility] [address] [id number] [address] [place] [id number] Oct, [facility] [address] [id number] [address] [place] [id number] Oct, [facility] [address] [id number] [address] [place] [id number] Oct, [facility] [address] [id number] [address] [place] [id number] Oct, [facility] [address] [id number] [address] [place] [id number] Oct, [facility] [address] [id number] [address] [place] [id number] Oct, [facility] [address] [id number] [address] [place] [address], [place] [address] Oct, [facility] [address] [id number] [address] [place] [address], [place] [address] Oct, [facility] [address] [id number] [address] [place] [address], [place] [address] Oct, [facility] [address] [id number] [address] [place] [address], [place] [address] Oct, [facility] [address] [id number] [address] [place] [address], [place] [address] Sep, [facility] [address] [id number] [address] [place] [address], [place] [address] Sep, [facility] [address] [id number] [address] [place] [address], [place] [address] Sep, [facility] [address] [id number] [address] [place] [address], [place] [address] Sep, [facility] [address] [id number] [address] [place] [address], [place] [address] Sep, [facility] [address] [id number] [address] [place] [address], [place] [address] Sep, [facility] [address] [id number] [address] [place] [address], [place] [address] Sep, [facility] [place] [facility] [address] [id number] [address] [place] [address], [place] [address] Sep, [facility] [place] [facility] [address] [id number] [address] [place] [address], [place] [address] Sep, [facility] [place] [facility] [address] [id number] [address] [place] [address], [place] [address] Aug, [facility] [place] [facility] [address] [id number] [address] [place] [address], [place] [address] Aug, [facility] [place] [address] [id number] [address] [place] [address] [place] [address] Aug, [facility] [place] [facility] [address] [id number] [address] [place] [address], [place] [address] Aug, [facility] [place] [facility] [address] [id number] [address] [place] [address], [place] [address] Jul, [facility] [place] [facility] [address] [id number] [address] [place] [address], [place] [address] Jul, [facility] [place] [facility] [address] [id number] [address] [place] [address], [place] [address] Jul, [facility] [place] [address] [id number] [address] [place] [address], [place] [address] Jul, [facility] [place] [address] [id number] [address] [place] [address], [place] [address] Jul, [facility] [place] [address] [id number] [address] [place] [address], [place] [address] Jul, [facility] [place] [facility] [address] [id number] [address] [place] [address], [place] [address] Jul, [facility] [place] [facility] [address] [id number] [address] [place] [address], [place] [address] Jul, [facility] [place] [facility] [address] [id number] [address] [place] [address], [place] [address] Jun, [facility] [place] [facility] [address] [id number] [address] [place] [address], [place] [address] Jun, [facility] [place] [facility] [address] [id number] [address] [place] [address], [place] [address] Jun, [facility] [place] [facility] [address] [id number] [address] [place] [address], [place] [address] Jun, [facility] [place] [facility] [address] [id number] [address] [place] [address], [place] [address] 16 Jun, 2014 [facility] [place] [facility] [address] [id number] [address] [place] [address], [place] [address] 15 Jun, 2014 [facility] [place] [facility] [address] [id number] [address] [place] [address], [place] [address] 15 Jun, 2014 [facility] [place] [facility] [address] [id number] [address] [place] [address], [place] [address] 14 Jun, 2014 [facility] [place] [facility] [address] [id number] [address] [place] [address], [place] [address] 14 Jun, 2014 [facility] [place] [facility] [address] [id number] [address] [place] [address], [place] [address] Jun, [facility] [place] [facility] [address] [id number] [address] [place] [address], [place] [address] Jun, [facility] [place] [facility] [address] [id number] [address] [place] [address], [place] [address] 24 May, 2014 [facility] [place] [facility] [address] [id number] [address] [place] [address], [place] [address] 24 May, 2014 [facility] [place] [facility] [address] [id number] [address] [place] [address], [place] [address] 08 May, 2014 [facility] [place] [facility] [address] [id number] [address] [place] [address], [place] [address] May, [facility] [place] [facility] [address] [id number] [address] [place] [address], [place] [address] May, [facility] [place] [facility] [address] [id number] [address] [place] [address], [place] [address] Apr, [facility] [place] [facility] [address] [id number] [address] [place] [address], [place] [address] Apr, [facility] [place] [facility] [address] [id number] [address] [place] [address], [place] [address] Apr, [facility] [place] [facility] [address] [id number] [address] [place] [address], [place] [address] Apr, [facility] [place] [facility] [address] [id number] [address] [place] [address], [place] [address] Apr, [facility] [place] [facility] [address] [id number] [address] [place] [address], [place] [address] Apr, [facility] [address] [id number] [facility] [place] [address] Mar, [facility] [place] [facility] [address] [id number] [address] [place] [address], [place] [address] Mar, [facility] [place] [facility] [address] [id number] [address] [place] [address], [place] [address] Mar, [facility] [place] [facility] [address] [id number] [address] [place] [address], [place] [address] Mar, [facility] [place] [facility] [address] [id number] [address] [place] [address], [place] [address] Mar, [facility] [place] [facility] [address] [id number] [address] [place] [address], [place] [address] Mar, [facility] [place] [address] [id number] [address] [place] [address], [place] [address] Feb, [facility] [place] [facility] [address] [id number] [address] [place] [address], [place] [address] Feb, [facility] [place] [facility] [address] [id number] [address] [place] [address], [place] [address] Feb, [facility] [address] [id number] [address] [place] [address], [place] [address] Feb, [facility] [place] [facility] [address] [id number] [address] [place] [address], [place] [address] Feb, [facility] [place] [facility] [address] [id number] [address] [place] [address], [place] [address] Feb, [facility] [place] [facility] [address] [id number] [address] [place] [address], [place] [address] Feb, [facility] [place] [facility] [address] [id number] [address] [place] [address], [place] [address] Feb, [facility] [place] [facility] [address] [id number] [address] [place] [address], [place] [address] January, [facility] [place] [facility] [address] [id number] [address] [place] [address] January, [facility] [address] [id number] [address] [place] [address], [place] [address] January, [facility] [address] [id number] [address] [place] [address], [place] [address] January, [facility] [address] [id number] [address] [place] [address], [place] [address] January, [facility] [address] [id number] [address] [place] [address], [place] [address] January, [facility] [address] [id number] [address] [place] [address], [place] [address] January, [facility] [address] [id number] [address] [place] [address], [place] [address] January, [facility] [address] [id number] [address] [place] [address], [place] [address] Dec, [facility] [address] [id number] [address] [place] [address], [place] [address] Dec, [facility] [address] [id number] [address] [place] [address], [place] [address] Dec, [facility] [address] [id number] [address] [place] [address], [place] [address] Dec, [facility] [address] [id number] [address] [place] [address], [place] [address] Dec, [facility] [address] [id number] [address] [place] [address], [place] [address] Dec, [facility] [address] [id number] [address] [place] [address], [place] [address] Nov, [facility] [address] [id number] [address] [place] [address], [place] [address] Nov, [facility] [address] [id number] [address] [place] [address], [place] [address] Nov, [facility] [address] [id number] [address] [place] [address], [place] [address] Nov, [facility] [address] [id number] [address] [place] [address], [place] [address] Nov, [facility] [address] [id number] [address] [place] [address], [place] [address] Nov, [facility] [address] [id number] [address] [place] [address], [place] [address] Nov, [facility] [address] [id number] [address] [place] [address], [place] [address] Nov, [facility] [address] [id number] [address] [place] [address], [place] [address] Oct, [facility] [address] [id number] [address] [place] [address], [place] [address] Oct, [facility] [address] [id number] [address] [place] [address], [place] [address] Sep, [facility] [address] [id number] [address] [place] [address], [place] [address] Sep, [facility] [address] [id number] [address] [place] [address], [place] [address] Sep, [facility] [address] [id number] [address] [place] [address], [place] [address] Sep, [facility] [address] [id number] [address] [place] [address], [place] [address] Aug, [facility] [address] [id number] [address] [place] [address], [place] [address] Aug, [facility] [address] [id number] [address] [place] [address], [place] [address] Aug, [facility] [address] [id number] [address] [place] [address], [place] [address] Aug, [facility] [address] [id number] [address] [place] [address] Jul, [facility] [address] [id number] [address] [place] [address], [place] [address] Jul, [facility] [address] [id number] [address] [place] [address], [place] [address] Jul, [facility] [address] [id number] [address] [place] [address], [place] [address] Jul, [facility] [address] [id number] [address] [place] [address], [place] [address] Jul, [facility] [address] [id number] [address] [place] [address], [place] [address] Jul, [facility] [address] [id number] [address] [place] [address], [place] [address] Jul, [facility] [address] [id number] [address] [place] [address], [place] [address] Jul, [facility] [address] [id number] [address] [place] [address], [place] [address] Jul, [facility] [address] [id number] [address] [place] [address] Jul, [facility] [address] [id number] [address] [place] [address], [place] [address] Jul, [facility] [address] [id number] [address] [place] [id number] Jul, [facility] [address] [id number] [address] [place] [address] Jun, [facility] [address] [id number] [address] [place] [address], [place] [address] Jun, [facility] [address] [id number] [address] [place] [address], [place] [address] Jun, [facility] [address] [id number] [address] [place] [address], [place] [address] Jun, [facility] [address] [id number] [address] [place] [address], [place] [address] 16 Jun, 2013 [facility] [address] [id number] [address] [place] [address], [place] [address] 14 Jun, 2013 [facility] [address] [id number] [address] [place] [address], [place] [address] 14 Jun, 2013 [facility] [address] [id number] [address] [place] [address], [place] [address] 02 Jun, 2013 [facility] [address] [id number] [address] [place] [address], [place] [address] 15 May, 2013 [facility] [address] [id number] [address] [place] [address], [place] [address] 05 May, 2013 [facility] [address] [id number] [address] [place] [address], [place] [address] 04 May, 2013 [facility] [address] [id number] [address] [place] [address], [place] [address] Apr, [facility] [address] [id number] [address] [place] [address], [place] [address] Apr, [facility] [address] [id number] [address] [place] [address], [place] [address] Mar, [facility] [address] [id number] [address] [place] [address], [place] [address] Mar, [facility] [address] [id number] [address] [place] [address], [place] [address] Feb, [facility] [address] [id number] [address] [place] [address], [place] [address] January, [facility] [address] [id number] [address] [place] [address], [place] [address] January, [facility] [address] [id number] [address] [place] [address], [place] [address] January, [facility] [address] [id number] [address] [place] [address], [place] [address] January, [facility] [address] [id number] [address] [place] [address], [place] [address] January, [facility] [address] [id number] [address] [place] [address], [place] [address] 29 Dec, 2012 [facility] [address] [id number] [address] [place] [address], [place] [address] 17 Dec, 2012 [facility] [address] [id number] [address] [place] [address], [place] [address] Dec, [facility] [address] [id number] [address] [place] [address], [place] [address] Nov, [facility] [address] [id number] [address] [place] [address], [place] [address] 27 Oct, 2012 [facility] [address] [id number] [address] [place] [address], [place] [address] 18 Oct, 2012 [facility] [address] [id number] [address] [place] [address], [place] [address] 15 Oct, 2012 [facility] [address] [id number] [address] [place] [address], [place] [address] Sep, [facility] [address] [id number] [address] [place] [address], [place] [address] 16 Sep, 2012 [facility] [address] [id number] [address] [place] [address], [place] [address] 14 Aug, 2012 [facility] [address] [id number] [address] [place] [address], [place] [address] 14 Aug, 2012 [facility] [address] [id number] [address] [place] [address], [place] [address] Aug, [facility] [address] [id number] [address] [place] [address], [place] [address] Aug, [facility] [address] [id number] [address] [place] [address], [place] [address] Jul, [facility] [address] [id number] [address] [place] [address], [place] [address] 11 Jul, 2012 [facility] [address] [id number] [address] [place] [address], [place] [address] Jul, [facility] [address] [id number] [address] [place] [address], [place] [address] Jul, [facility] [address] [id number] [address] [place] [address], [place] [address] Jul, [facility] [address] [id number] [address] [place] [address], [place] [address] 15 Jun, 2012 [facility] [address] [id number] [address] [place] [address], [place] [address] 15 Jun, 2012 [facility] [address] [id number] [address] [place] [address], [place] [address] 10 Jun, 2012 [facility] [address] [id number] [address] [place] [address], [place] [address] Jun, [facility] [address] [id number] [address] [place] [address], [place] [address] May, [facility] [address] [id number] [address] [place] [address], [place] [address] Apr, [facility] [address] [id number] [address] [place] [address], [place] [address] Apr, [facility] [address] [id number] [address] [place] [address], [place] [address] Apr, [facility] [address] [id number] [address] [place] [address], [place] [address] Apr, [facility] [address] [id number] [address] [place] [address], [place] [address] January, [facility] [address] [id number] [address] [place] [address], [place] [address] January, [facility] [address] [id number] [address] [place] [address], [place] [address] Dec, [facility] [address] [id number] [address] [place] [address], [place] [address] Dec, [facility] [address] [id number] [address] [place] [address], [place] [address] Nov, [facility] [address] [id number] [address] [place] [address], [place] [address] Nov, [facility] [address] [id number] [address] [place] [address], [place] [address] Nov, [facility] [address] [id number] [address] [place] [address], [place] [address] Nov, [facility] [address] [id number] [address] [place] [address], [place] [address] Oct, [facility] [address] [id number] [address] [place] [address], [place] [address] Oct, [facility] [address] [id number] [address] [place] [address], [place] [address] Oct, [facility] [address] [id number] [address] [place] [address], [place] [address] Sep, [facility] [address] [id number] [address] [place] [address], [place] [address] Sep, [facility] [address] [id number] [address] [place] [address], [place] [address] Aug, [facility] [address] [id number] [address] [place] [address], [place] [address] Aug, [facility] [address] [id number] [address] [place] [address], [place] [address] Jul, [facility] [address] [id number] [address] [place] [address], [place] [address] Jul, [facility] [address] [id number] [address] [place] [address], [place] [address] Jul, [facility] [address] [id number] [address] [place] [address], [place] [address] 26 Jun, 2011 [facility] [address] [id number] [address] [place] [address], [place] [address] 24 Jun, 2011 [facility] [address] [id number] [address] [place] [address], [place] [address] 11 Jun, 2011 [facility] [address] [id number] [address] [place] [address], [place] [address] 10 Jun, 2011 [facility] [address] [id number] [address] [place] [address], [place] [address] 10 Jun, 2011 [facility] [address] [id number] [address] [place] [address], [place] [address] Jun, [facility] [address] [id number] [address] [place] [address], [place] [address] Aug, [facility] [address] [id number] [address] [place] [address], [place] [address] Aug, [facility] [address] [id number] [address] [place] [address], [place] [address] Aug, [facility] [address] [id number] [address] [place] [address], [place] [address] Jul, [facility] [address] [id number] [address] [place] [address], [place] [address] Jul, [facility] [address] [id number] [address] [place] [address], [place] [address] Jul, [facility] [address] [id number] [address] [place] [address], [place] [address] Jul, [facility] [address] [id number] [address] [place] [address], [place] [address] Jul, [facility] [address] [id number] [address] [place] [address], [place] [address] Jul, [facility] [address] [id number] [address] [place] [address], [place] [address] Jun, [facility] [address] [id number] [address] [place] [address] Apr, [facility] [address] [id number] [address] [place] [address] 11 Feb, 2010 [facility] [address] [id number] [address] [place] [address] 10 Oct, 2009 [facility] [address] [id number] [address] [place] [address] Sep, [facility] [address] [id number] [address] [place] [address] Aug, [facility] [address] [id number] [address] [place] [address] Aug, [facility] [address] [id number] [address] [place] [address] Aug, [facility] [address] [id number] [address] [place] [address] Jul, [facility] [address] [id number] [address] [place] [address] Jun, IMMUNIZATIONS No Known Immunizations SOCIAL HISTORY Never Assessed REASON FOR VISIT Refill request PLAN OF CARE VITAL SIGNS MEDICATIONS Medication Instructions Dosage Frequency Start Date End Date Duration S tatus Rabeprazole Sodium 20 mg Orally Once a day 1 tablet 24h 30 Active RESULTS No Results PROCEDURES No [...]
--- OUTSIDE RECORDS SUMMARY | 2020-02-22 17:31 | XMS REPORT ---
Author Author Marion TRUJILLO Organization [facility] Address [address] [place] [address] Care Team Providers Care Sprue Knocker Name Role Phone ZACKARY TRUJILLO Unavailable PROBLEMS Type Condition ICD9-CM Code RBL92-JE Code Onset Dates Condition S tatus SNOMED Code Problem Dyspepsia R10.13 Active 977243852 Problem History of anemia Z86.2 Active 27 5398588 Problem Cervical disc disease M50.90 Active 043317482 Problem Neck pain M54.2 Active [id number] ALLERGIES No Information ENCOUNTERS Encounter Location Date Diagnosis [facility] [address] [facility] [id number] [address] [place] [phone] Mar, Cervical disc disease M50.90 [facility] [address] [id number] [address] [place] [address] Mar, [facility] [address] [facility] [id number] [address] [place] [address] Mar, Cervical disc disease M50.90 [facility] [address] [facility] [id number] [address] [place] [address] Feb, Cervical disc disease M50.90 [facility] [address] [facility] [id number] [address] [place] [address] January, Cervical disc disease M50.90 [facility] [address] [id number] [address] [place] [address] Dec, [facility] [address] [facility] [id number] [address] [place] [address] Dec, Cervical disc disease M50.90 [facility] [address] [facility] [id number] [address] [place] [address] Nov, Cervical disc disease M50.90 [facility] [address] [facility] [id number] [address] [place] [address] Nov, Cervical disc disease M50.90 [facility] [address] [facility] [id number] [address] [place] [address] 15 Oct, 2017 Cervical disc disease M50.90 [facility] [address] [facility] [id number] [address] [place] [address] Oct, Cervical disc disease M50.90 and Acute non-recurrent maxillary sinusitis J01.00 [facility] [address] [facility] [id number] [address] [place] [address] Sep, Cervical disc disease M50.90 [facility] [address] [place] [id number] [address] [place] [address] Sep, [facility] [address] [id number] [place] [address] Sep, Fatigue, unspecified type R5 3.83 and Cough R05 [facility] [address] [id number] [address] [place] [address] Aug, Cervical disc disease M50.90 [facility] [address] [id number] [address] [place] [address] Aug, Sore throat J02.9 ; Canker s ore K12.0 and History of anemia Z86.2 [facility] [address] [id number] [address] [place] [address] Jul, Cervical disc disease M50.90 [place] [address] [place] [id number] [address] [place] [address] Jun, Cervical disc disease M50.90 [place] [address] [place] [id number] [address] [place] [address] Jun, Cervical disc disease M50.90 [facility] [address] [id number] [address] [place] [address] May, Cervical disc disease M50.90 [facility] [address] [id number] [address] [place] [address] Apr, Cervical disc disease M50.90 [facility] [address] [id number] [address] [place] [address] Apr, [facility] [address] [facility] [id number] [address] [place] [address] Feb, Cervical disc disease M50.90 [facility] [address] [id number] [address] [place] [address] January, Cervical disc disease M50.90 [facility] [address] [id number] [address] [place] [address] Nov, [facility] [address] [id number] [address] [place] [address] Nov, Cervical disc disease M50.90 [facility] [address] [id number] [address] [place] [address] Nov, Acute cystitis with hematuri a N30.01 and Dysuria R30.0 [facility] [address] [facility] [id number] [address] [place] [address] Oct, Cervical disc disease M50.90 and Acute non-recurrent frontal sinusitis J01.10 [facility] [address] [facility] [id number] [address] [place] [address] Sep, Neck pain M54.2 [facility] [address] [facility] [id number] [address] [place] [address] Sep, [facility] [address] [facility] [id number] [address] [place] [address] Aug, Cervical disc disease M50.90 [facility] [address] [facility] [id number] [address] [place] [address] Jul, [facility] [address] [facility] [id number] [address] [place] [address] Jun, [facility] [address] [id number] [address] [place] [address] May, [facility] [address] [id number] [address] [place] [address] May, Screening for diabetes emilio tus Z13.1 ; Chronic fatigue R53.82 and Edema, unspecified type R60.9 [facility] [address] [id number] [address] [place] [address] Apr, Neck pain M54.2 [facility] [address] [id number] [address] [place] [address] Mar, [facility] [address] [id number] [address] [place] [address] Mar, Neck pain M54.2 [facility] [address] [id number] [address] [place] [address] Feb, Cervical disc disease M50.90 [facility] [address] [id number] [address] [place] [address] Feb, Cervical disc disease M50.90 [facility] [address] [id number] [address] [place] [address] January, [facility] [address] [id number] [address] [place] [address] January, [facility] [address] [id number] [address] [place] [address] January, Cervical disc disease M50.90 [facility] [address] [id number] [address] [place] [address] January, [facility] [address] [id number] [address] [place] [address] January, [facility] [address] [id number] [address] [place] [address] Dec, Cervical disc disease M50.90 [facility] [address] [id number] [address] [place] [address] Nov, Cervical disc disease M50.90 [facility] [address] [id number] [address] [place] [address] Oct, Cervical disc disease M50.90 [facility] [address] [id number] [address] [place] [address] Sep, Cervical disc disease M50.90 [facility] [address] [id number] [address] [place] [id number] Aug, Dental caries K02.9 and Enco unter for dental examination Z01.20 [facility] [address] [id number] [address] [place] [address] Aug, [facility] [address] [id number] [address] [place] [address] Aug, [facility] [address] [id number] [address] [place] [id number] Aug, Encounter for dental examina tion Z01.20 [facility] [address] [id number] [address] [place] [address] Jul, [facility] [address] [id number] [address] [place] [address] Jun, Sinusitis J32.9 and Cervical disc disease M50.90 [facility] [address] [id number] [address] [place] [address] Jun, [facility] [address] [id number] [address] [place] [address] 24 May, 2015 [facility] [address] [id number] [address] [place] [address] 23 May, 2015 [facility] [address] [id number] [address] [place] [address] 22 May, 2015 [facility] [address] [id number] [address] [place] [phone] 11 May, 2015 [facility] [address] [id number] [address] [place] [address] Apr, Cervical spondylosis without myelopathy 721.0 [facility] [address] [id number] [address] [place] [address] Mar, [facility] [address] [id number] [address] [place] [address] January, Cervical spondylosis without myelopathy 721.0 [facility] [address] [id number] [address] [place] [address] Dec, [facility] [address] [id number] [address] [place] [address] Dec, [facility] [address] [id number] [address] [place] [id number] Dec, [facility] [address] [id number] [address] [place] [phone] Nov, [facility] [address] [id number] [address] [place] [address] Nov, [facility] [address] [id number] [address] [place] [phone] Oct, [facility] [address] [id number] [address] [place] [phone] Oct, [facility] [address] [id number] [address] [place] [id number] Oct, [facility] [address] [id number] [address] [place] [phone] Oct, [facility] [address] [id number] [address] [place] [phone] Oct, [facility] [address] [id number] [address] [place] [phone] Oct, [facility] [address] [id number] [address] [place] [phone] Oct, [facility] [address] [id number] [address] [place] [address], [place] [address] Oct, [facility] [address] [id number] [address] [place] [address], [place] [address] Oct, [facility] [address] [id number] [address] [place] [address], [place] [address] Oct, [facility] [address] [id number] [address] [place] [address], [place] [address] Sep, [facility] [address] [id number] [address] [place] [address], [place] [address] Sep, [facility] [address] [id number] [address] [place] [address], [place] [address] Sep, [facility] [address] [id number] [address] [place] [address], [place] [address] Sep, [facility] [address] [id number] [address] [place] [address], [place] [address] Sep, [facility] [address] [id number] [address] [place] [address], [place] [address] Sep, [facility] [address] [id number] [address] [place] [address], [place] [address] Sep, [facility] [address] [id number] [address] [place] [address], [place] [address] Sep, [facility] [address] [id number] [address] [place] [address], [place] [address] Sep, [facility] [address] [id number] [address] [place] [address], [place] [address] Aug, [facility] [address] [id number] [address] [place] [address], [place] [address] Aug, [facility] [address] [id number] [address] [place] [address], [place] [address] Aug, [facility] [address] [id number] [address] [place] [address] [place] [address] Aug, [facility] [address] [id number] [address] [place] [address], [place] [address] Jul, [facility] [address] [id number] [address] [place] [address], [place] [address] Jul, [facility] [address] [id number] [address] [place] [address], [place] [address] Jul, [facility] [place] [facility] [address] [id number] [address] [place] [address], [place] [address] Jul, [facility] [address] [id number] [address] [place] [address], [place] [address] Jul, [facility] [place] [address] [id number] [address] [place] [address], [place] [address] Jul, [facility] [address] [id number] [address] [place] [address], [place] [address] Jul, [facility] [place] [address] [id number] [address] [place] [address], [place] [address] Jul, [facility] [place] [address] [id number] [address] [place] [address], [place] [address] Jun, [facility] [place] [address] [id number] [address] [place] [address], [place] [address] Jun, [facility] [place] [address] [id number] [address] [place] [address], [place] [address] Jun, [facility] [place] [facility] [address] [id number] [address] [place] [address], [place] [address] 20 Jun, 2014 [facility] [address] [id number] [address] [place] [address], [place] [address] 16 Jun, 2014 [facility] [address] [id number] [address] [place] [address], [place] [address] 15 Jun, 2014 [facility] [address] [id number] [address] [place] [address], [place] [address] 15 Jun, 2014 [facility] [address] [id number] [address] [place] [address], [place] [address] 14 Jun, 2014 [facility] [address] [id number] [address] [place] [address], [place] [address] 14 Jun, 2014 [facility] [address] [id number] [address] [place] [address], [place] [address] Jun, [facility] [place] [facility] [address] [id number] [address] [place] [address], [place] [address] Jun, [facility] [address] [id number] [address] [place] [address], [place] [address] 24 May, 2014 [facility] [address] [id number] [address] [place] [address], [place] [address] 24 May, 2014 [facility] [address] [id number] [address] [place] [address], [place] [address] May, [facility] [address] [id number] [address] [place] [address], [place] [address] May, [facility] [address] [id number] [address] [place] [address], [place] [address] May, [facility] [address] [id number] [address] [place] [address], [place] [address] Apr, [facility] [address] [id number] [address] [place] [address], [place] [address] Apr, [facility] [address] [id number] [address] [place] [address], [place] [address] Apr, [facility] [place] [address] [id number] [address] [place] [address], [place] [address] Apr, [facility] [address] [id number] [address] [place] [address], [place] [address] Apr, [facility] [address] [id number] [address] [place] [address], [place] [address] Apr, [facility] [address] [id number] [address] [place] [address], [place] [address] Mar, [facility] [address] [id number] [facility] [place] [address] Mar, [facility] [address] [id number] [address] [place] [address], [place] [address] Mar, [facility] [place] [facility] [address] [id number] [address] [place] [address], [place] [address] Mar, [facility] [address] [id number] [address] [place] [address], [place] [address] Mar, [facility] [address] [id number] [address] [place] [address], [place] [address] Mar, [facility] [address] [id number] [address] [place] [address], [place] [address] Feb, [facility] [address] [id number] [address] [place] [address], [place] [address] Feb, [facility] [address] [id number] [address] [place] [address], [place] [address] Feb, [facility] [address] [id number] [address] [place] [address], [place] [address] Feb, [facility] [place] [facility] [address] [id number] [address] [place] [address], [place] [address] Feb, [facility] [place] [address] [id number] [address] [place] [address], [place] [address] Feb, [facility] [place] [address] [id number] [address] [place] [address], [place] [address] Feb, [facility] [address] [id number] [address] [place] [address], [place] [address] Feb, [facility] [address] [id number] [address] [place] [address], [place] [address] January, [facility] [place] [facility] [address] [id number] [address] [place] [address], [place] [address] January, [facility] [place] [facility] [address] [id number] [address] [place] [address] January, [facility] [address] [id number] [address] [place] [address], [place] [address] January, [facility] [address] [id number] [address] [place] [address], [place] [address] January, [facility] [address] [id number] [address] [place] [address], [place] [address] January, [facility] [address] [id number] [address] [place] [address], [place] [address] January, [facility] [address] [id number] [address] [place] [address], [place] [address] January, [facility] [address] [id number] [address] [place] [address], [place] [address] Dec, [facility] [address] [id number] [address] [place] [address], [place] [address] Dec, [facility] [address] [id number] [address] [place] [address], [place] [address] Dec, [facility] [address] [id number] [address] [place] [address], [place] [address] Dec, [facility] [address] [id number] [address] [place] [address], [place] [address] Dec, [facility] [address] [id number] [address] [place] [address], [place] [address] Dec, [facility] [address] [id number] [address] [place] [address], [place] [address] Nov, [facility] [address] [id number] [address] [place] [address], [place] [address] Nov, [facility] [address] [id number] [address] [place] [address], [place] [address] Nov, [facility] [address] [id number] [address] [place] [address], [place] [address] Nov, [facility] [address] [id number] [address] [place] [address], [place] [address] Nov, [facility] [address] [id number] [address] [place] [address], [place] [address] Nov, [facility] [address] [id number] [address] [place] [address], [place] [address] Nov, [facility] [address] [id number] [address] [place] [address], [place] [address] Nov, [facility] [address] [id number] [address] [place] [address], [place] [address] Oct, [facility] [address] [id number] [address] [place] [address], [place] [address] Oct, [facility] [address] [id number] [address] [place] [address], [place] [address] Sep, [facility] [address] [id number] [address] [place] [address], [place] [address] Sep, [facility] [address] [id number] [address] [place] [address], [place] [address] Sep, [facility] [address] [id number] [address] [place] [address], [place] [address] Sep, [facility] [address] [id number] [address] [place] [address], [place] [address] Aug, [facility] [address] [id number] [address] [place] [address], [place] [address] Aug, [facility] [address] [id number] [address] [place] [address], [place] [address] Aug, [facility] [address] [id number] [address] [place] [address], [place] [address] Aug, [facility] [address] [id number] [address] [place] [address], [place] [address] Jul, [facility] [address] [id number] [address] [place] [address] Jul, [facility] [address] [id number] [address] [place] [address], [place] [address] Jul, [facility] [address] [id number] [address] [place] [address], [place] [address] Jul, [facility] [address] [id number] [address] [place] [address], [place] [address] Jul, [facility] [address] [id number] [address] [place] [address], [place] [address] Jul, [facility] [address] [id number] [address] [place] [address], [place] [address] Jul, [facility] [address] [id number] [address] [place] [address], [place] [address] Jul, [facility] [address] [id number] [address] [place] [address], [place] [address] Jul, [facility] [address] [id number] [address] [place] [address], [place] [address] Jul, [facility] [address] [id number] [address] [place] [address], [place] [address] Jul, [facility] [address] [id number] [address] [place] [address], [place] [address] Jul, [facility] [address] [id number] [address] [place] [address], [place] [address] Jun, [facility] [address] [id number] [address] [place] [address], [place] [address] Jun, [facility] [address] [id number] [address] [place] [address], [place] [address] Jun, [facility] [address] [id number] [address] [place] [address], [place] [address] Jun, [facility] [address] [id number] [address] [place] [address], [place] [address] Jun, [facility] [address] [id number] [address] [place] [address], [place] [address] 14 Jun, 2013 [facility] [address] [id number] [address] [place] [address], [place] [address] 14 Jun, 2013 [facility] [address] [id number] [address] [place] [address], [place] [address] 02 Jun, 2013 [facility] [address] [id number] [address] [place] [address], [place] [address] 15 May, 2013 [facility] [address] [id number] [address] [place] [address], [place] [address] 05 May, 2013 [facility] [address] [id number] [address] [place] [address], [place] [address] May, [facility] [address] [id number] [address] [place] [address], [place] [address] Apr, [facility] [address] [id number] [address] [place] [address], [place] [address] Apr, [facility] [address] [id number] [address] [place] [address], [place] [address] Mar, [facility] [address] [id number] [address] [place] [address], [place] [address] Mar, [facility] [address] [id number] [address] [place] [address], [place] [address] Feb, [facility] [address] [id number] [address] [place] [address], [place] [address] January, [facility] [address] [address] [id number] [address] [place] [address], [place] [address] January, [facility] [address] [id number] [address] [place] [address], [place] [address] January, [facility] [address] [id number] [address] [place] [address], [place] [address] January, [facility] [address] [id number] [address] [place] [address], [place] [address] January, [facility] [address] [id number] [address] [place] [address], [place] [address] 29 Dec, 2012 [facility] [address] [id number] [address] [place] [address], [place] [address] 17 Dec, 2012 [facility] [address] [id number] [address] [place] [address], [place] [address] Dec, [facility] [address] [id number] [address] [place] [address], [place] [address] Nov, [facility] [address] [id number] [address] [place] [address], [place] [address] 27 Oct, 2012 [facility] [address] [id number] [address] [place] [address], [place] [address] 18 Oct, 2012 [facility] [address] [id number] [address] [place] [address], [place] [address] 15 Oct, 2012 [facility] [address] [id number] [address] [place] [address], [place] [address] Sep, [facility] [address] [id number] [address] [place] [address], [place] [address] 16 Sep, 2012 [facility] [address] [id number] [address] [place] [address], [place] [address] 14 Aug, 2012 [facility] [address] [id number] [address] [place] [address], [place] [address] 14 Aug, 2012 [facility] [address] [id number] [address] [place] [address], [place] [address] Aug, [facility] [address] [id number] [address] [place] [address], [place] [address] Aug, [facility] [address] [id number] [address] [place] [address], [place] [address] 21 Jul, 2012 [facility] [address] [id number] [address] [place] [address], [place] [address] Jul, [facility] [address] [id number] [address] [place] [address], [place] [address] Jul, [facility] [address] [id number] [address] [place] [address], [place] [address] Jul, [facility] [address] [id number] [address] [place] [address], [place] [address] Jul, [facility] [address] [id number] [address] [place] [address], [place] [address] 15 Jun, 2012 [facility] [address] [id number] [address] [place] [address], [place] [address] 15 Jun, 2012 [facility] [address] [id number] [address] [place] [address], [place] [address] Jun, [facility] [address] [id number] [address] [place] [address], [place] [address] 10 Jun, 2012 [facility] [address] [id number] [address] [place] [address], [place] [address] May, [facility] [address] [id number] [address] [place] [address], [place] [address] Apr, [facility] [address] [id number] [address] [place] [address], [place] [address] Apr, [facility] [address] [id number] [address] [place] [address], [place] [address] Apr, [facility] [address] [id number] [address] [place] [address], [place] [address] Apr, [facility] [address] [id number] [address] [place] [address], [place] [address] January, [facility] [address] [id number] [address] [place] [address], [place] [address] January, [facility] [address] [id number] [address] [place] [address], [place] [address] Dec, [facility] [address] [id number] [address] [place] [address], [place] [address] Dec, [facility] [address] [id number] [address] [place] [address], [place] [address] Nov, [facility] [address] [id number] [address] [place] [address], [place] [address] Nov, [facility] [address] [id number] [address] [place] [address], [place] [address] Nov, [facility] [address] [id number] [address] [place] [address], [place] [address] Nov, [facility] [address] [id number] [address] [place] [address], [place] [address] Oct, [facility] [address] [id number] [address] [place] [address], [place] [address] Oct, [facility] [address] [id number] [address] [place] [address], [place] [address] Oct, [facility] [address] [id number] [address] [place] [address], [place] [address] Sep, [facility] [address] [id number] [address] [place] [address], [place] [address] Sep, [facility] [address] [id number] [address] [place] [address], [place] [address] Aug, [facility] [address] [id number] [address] [place] [address], [place] [address] Aug, [facility] [address] [id number] [address] [place] [address], [place] [address] 15 Jul, 2011 [facility] [address] [id number] [address] [place] [address], [place] [address] Jul, [facility] [address] [id number] [address] [place] [address], [place] [address] 04 Jul, 2011 [facility] [address] [id number] [address] [place] [address], [place] [address] 26 Jun, 2011 [facility] [address] [id number] [address] [place] [address], [place] [address] 24 Jun, 2011 [facility] [address] [id number] [address] [place] [address], [place] [address] 11 Jun, 2011 [facility] [address] [id number] [address] [place] [address], [place] [address] Jun, [facility] [address] [id number] [address] [place] [address], [place] [address] Jun, [facility] [address] [id number] [address] [place] [address], [place] [address] Jun, [facility] [address] [id number] [address] [place] [address], [place] [address] Aug, [facility] [address] [id number] [address] [place] [address], [place] [address] Aug, [facility] [address] [id number] [address] [place] [address], [place] [address] Aug, [facility] [address] [id number] [address] [place] [address], [place] [address] Jul, [facility] [address] [id number] [address] [place] [address], [place] [address] Jul, [facility] [address] [id number] [address] [place] [address], [place] [address] Jul, [facility] [address] [id number] [address] [place] [address], [place] [address] Jul, [facility] [address] [id number] [address] [place] [address], [place] [address] Jul, [facility] [address] [id number] [address] [place] [address], [place] [address] Jul, [facility] [address] [id number] [address] [place] [address], [place] [address] Jun, [facility] [address] [id number] [address] [place] [address], [place] [address] Apr, [facility] [address] [id number] [address] [place] [address] Feb, [facility] [address] [id number] [address] [place] [address] Oct, [facility] [address] [id number] [address] [place] [address] Sep, [facility] [address] [facility] [id number] [address] [place] [address] Aug, [facility] [address] [facility] [id number] [address] [place] [address] Aug, [facility] [address] [facility] [id number] [address] [place] [address] Aug, [facility] [address] [facility] [id number] [address] [place] [address] Jul, [facility] [address] [facility] [id number] [address] [place] [address] Jun, IMMUNIZATIONS No Known Immunizations SOCIAL HISTORY Never Assessed REASON FOR VISIT Tramadol Due 01/11 PLAN OF CARE VITAL SIGNS MEDICATIONS Medication [...]
--- OUTSIDE RECORDS SUMMARY | 2020-02-22 17:31 | XMS REPORT ---
Author Author Marion TRUJILLO Organization [facility] Address [address] [place] [address] Care Team Providers Care Pbx Technician Name Role Phone ZACKARY TRUJILLO Unavailable PROBLEMS Type Condition ICD9-CM Code XLO08-DZ Code Onset Dates Condition S tatus SNOMED Code Problem Dyspepsia R10.13 Active 281349153 Problem History of anemia Z86.2 Active 27 2725169 Problem Cervical disc disease M50.90 Active 751799141 Problem Neck pain M54.2 Active [id number] ALLERGIES No Information ENCOUNTERS Encounter Location Date Diagnosis [facility] [address] [facility] [id number] [address] [place] [id number] Mar, Cervical disc disease M50.90 [facility] [address] [id number] [address] [place] [phone] Mar, [facility] [address] [facility] [id number] [address] [place] [address] Mar, Cervical disc disease M50.90 [facility] [address] [facility] [id number] [address] [place] [id number] Feb, Cervical disc disease M50.90 [facility] [address] [facility] [id number] [address] [place] [address] January, Cervical disc disease M50.90 [facility] [address] [id number] [address] [place] [phone] Dec, [facility] [address] [facility] [id number] [address] [place] [address] Dec, Cervical disc disease M50.90 [facility] [address] [facility] [id number] [address] [place] [id number] Nov, Cervical disc disease M50.90 [facility] [address] [facility] [id number] [address] [place] [address] Nov, Cervical disc disease M50.90 [facility] [address] [facility] [id number] [address] [place] [id number] 15 Oct, 2017 Cervical disc disease M50.90 [facility] [address] [facility] [id number] [address] [place] [id number] Oct, Cervical disc disease M50.90 and Acute non-recurrent maxillary sinusitis J01.00 [facility] [address] [facility] [id number] [address] [place] [phone] Sep, Cervical disc disease M50.90 [facility] [address] [id number] [address] [place] [phone] Sep, [facility] [id number] [place] [phone] Sep, Fatigue, unspecified type R5 3.[address] [facility] [address] [id number] [address] [place] [id number] Aug, Cervical disc disease M50.90 [facility] [address] [id number] [address] [place] [address] Aug, Sore throat J02.9 ; Canker s ore K12.0 and History of anemia Z86.2 [facility] [address] [id number] [address] [place] [address] Jul, Cervical disc disease M50.90 [place] [address] [id number] [address] [place] [id number] Jun, Cervical disc disease M50.90 [place] [address] [id number] [address] [place] [address] Jun, Cervical disc disease M50.90 [facility] [address] [id number] [address] [place] [address] May, Cervical disc disease M50.90 [facility] [address] [id number] [address] [place] [address] Apr, Cervical disc disease M50.90 [facility] [address] [id number] [address] [place] [id number] Apr, [facility] [address] [facility] [id number] [address] [place] [address] Feb, Cervical disc disease M50.90 [facility] [address] [id number] [address] [place] [id number] January, Cervical disc disease M50.90 [facility] [address] [id number] [address] [place] [phone] Nov, [facility] [address] [id number] [address] [place] [id number] Nov, Cervical disc disease M50.90 [facility] [address] [id number] [address] [place] [phone] Nov, Acute cystitis with hematuri a N30.[address] [facility] [address] [facility] [id number] [address] [place] [address] Oct, Cervical disc disease M50.90 and Acute non-recurrent frontal sinusitis J01.10 [facility] [address] [facility] [id number] [address] [place] [phone] Sep, Neck pain M54.2 [facility] [address] [facility] [id number] [address] [place] [id number] Sep, [facility] [address] [facility] [id number] [address] [place] [id number] Aug, Cervical disc disease M50.90 [facility] [address] [facility] [id number] [address] [place] [phone] Jul, [facility] [address] [facility] [id number] [address] [place] [phone] Jun, [facility] [address] [id number] [address] [place] [phone] May, [facility] [address] [id number] [address] [place] [phone] May, Screening for diabetes emilio tus Z13.1 ; Chronic fatigue R53.82 and Edema, unspecified type R60.9 [facility] [address] [id number] [address] [place] [phone] Apr, Neck pain M54.2 [facility] [address] [id number] [address] [place] [phone] Mar, [facility] [address] [id number] [address] [place] [phone] Mar, Neck pain M54.2 [facility] [address] [id number] [address] [place] [id number] Feb, Cervical disc disease M50.90 [facility] [address] [id number] [address] [place] [phone] Feb, Cervical disc disease M50.90 [facility] [address] [id number] [address] [place] [phone] January, [facility] [address] [id number] [address] [place] [id number] January, [facility] [address] [id number] [address] [place] [phone] January, Cervical disc disease M50.90 [facility] [address] [id number] [address] [place] [phone] January, [facility] [address] [id number] [address] [place] [phone] January, [facility] [address] [id number] [address] [place] [address] Dec, Cervical disc disease M50.90 [facility] [address] [id number] [address] [place] [phone] Nov, Cervical disc disease M50.90 [facility] [address] [id number] [address] [place] [id number] Oct, Cervical disc disease M50.90 [facility] [address] [id number] [address] [place] [id number] Sep, Cervical disc disease M50.90 [facility] [address] [id number] [address] [place] [id number] Aug, Dental caries K02.9 and Enco unter for dental examination Z01.20 [facility] [address] [id number] [address] [place] [phone] Aug, [facility] [address] [id number] [address] [place] [phone] Aug, [facility] [address] [id number] [address] [place] [id number] Aug, Encounter for dental examina tion Z01.20 [facility] [address] [id number] [address] [place] [id number] Jul, [facility] [address] [id number] [address] [place] [phone] Jun, Sinusitis J32.9 and Cervical disc disease M50.90 [facility] [address] [id number] [address] [place] [phone] Jun, [facility] [address] [id number] [address] [place] [id number] 24 May, 2015 [facility] [address] [id number] [address] [place] [phone] [address], 2015 [facility] [address] [id number] [address] [place] [phone] 22 May, 2015 [facility] [address] [id number] [address] [place] [phone] 11 May, 2015 [facility] [address] [id number] [address] [place] [phone] Apr, Cervical spondylosis without myelopathy 721.0 [facility] [address] [id number] [address] [place] [phone] Mar, [facility] [address] [id number] [address] [place] [phone] January, Cervical spondylosis without myelopathy 721.0 [facility] [address] [id number] [address] [place] [phone] Dec, [facility] [address] [id number] [address] [place] [phone] Dec, [facility] [address] [id number] [address] [place] [phone] Dec, [facility] [address] [id number] [address] [place] [phone] Nov, [facility] [address] [id number] [address] [place] [phone] Nov, [facility] [address] [id number] [address] [place] [phone] Oct, [facility] [address] [id number] [address] [place] [phone] Oct, [facility] [address] [id number] [address] [place] [phone] Oct, [facility] [address] [id number] [address] [place] [phone] Oct, [facility] [address] [id number] [address] [place] [phone] Oct, [facility] [address] [id number] [address] [place] [phone] Oct, [facility] [address] [id number] [address] [place] [phone] Oct, [facility] [address] [id number] [address] [place] [address], [place] [address] Oct, [facility] [address] [id number] [address] [place] [address], [place] [address] Oct, [facility] [address] [id number] [address] [place] [address], [place] [address] Oct, [facility] [address] [id number] [address] [place] [address], [place] [address] Sep, [facility] [address] [id number] [address] [place] [address], [place] [address] Sep, [facility] [address] [id number] [address] [place] [address], [place] [address] Sep, [facility] [address] [id number] [address] [place] [address], [place] [address] Sep, [facility] [address] [id number] [address] [place] [address], [place] [address] Sep, [facility] [address] [id number] [address] [place] [address], [place] [address] Sep, [facility] [address] [id number] [address] [place] [address], [place] [address] Sep, [facility] [address] [id number] [address] [place] [address], [place] [address] Sep, [facility] [address] [id number] [address] [place] [address], [place] [address] Sep, [facility] [address] [id number] [address] [place] [address], [place] [address] Aug, [facility] [place] [facility] [address] [id number] [address] [place] [address], [place] [address] Aug, [facility] [place] [facility] [address] [id number] [address] [place] [address], [place] [address] Aug, [facility] [address] [id number] [address] [place] [address] [place] [address] Aug, [facility] [place] [facility] [address] [id number] [address] [place] [address], [place] [address] Jul, [facility] [place] [facility] [address] [id number] [address] [place] [address], [place] [address] Jul, [facility] [place] [address] [id number] [address] [place] [address], [place] [address] Jul, [facility] [place] [address] [id number] [address] [place] [address], [place] [address] Jul, [facility] [place] [facility] [address] [id number] [address] [place] [address], [place] [address] Jul, [facility] [place] [facility] [address] [id number] [address] [place] [address], [place] [address] Jul, [facility] [place] [facility] [address] [id number] [address] [place] [address], [place] [address] Jul, [facility] [place] [facility] [address] [id number] [address] [place] [address], [place] [address] Jul, [facility] [place] [facility] [address] [id number] [address] [place] [address], [place] [address] Jun, [facility] [place] [facility] [address] [id number] [address] [place] [address], [place] [address] Jun, [facility] [place] [facility] [address] [id number] [address] [place] [address], [place] [address] Jun, [facility] [place] [facility] [address] [id number] [address] [place] [address], [place] [address] 20 Jun, 2014 [facility] [place] [facility] [address] [id number] [address] [place] [address], [place] [address] 16 Jun, 2014 [facility] [place] [facility] [address] [id number] [address] [place] [address], [place] [address] 15 Jun, 2014 [facility] [place] [address] [id number] [address] [place] [address], [place] [address] 15 Jun, 2014 [facility] [place] [facility] [address] [id number] [address] [place] [address], [place] [address] 14 Jun, 2014 [facility] [place] [facility] [address] [id number] [address] [place] [address], [place] [address] 14 Jun, 2014 [facility] [place] [facility] [address] [id number] [address] [place] [address], [place] [address] Jun, [facility] [place] [facility] [address] [id number] [address] [place] [address], [place] [address] Jun, [facility] [place] [facility] [address] [id number] [address] [place] [address], [place] [address] 24 May, 2014 [facility] [place] [facility] [address] [id number] [address] [place] [address], [place] [address] 24 May, 2014 [facility] [place] [facility] [address] [id number] [address] [place] [address], [place] [address] May, [facility] [place] [facility] [address] [id number] [address] [place] [address], [place] [address] May, [facility] [place] [facility] [address] [id number] [address] [place] [address], [place] [address] May, [facility] [place] [facility] [address] [id number] [address] [place] [address], [place] [address] Apr, [facility] [place] [facility] [address] [id number] [address] [place] [address], [place] [address] Apr, [facility] [place] [facility] [address] [id number] [address] [place] [address], [place] [address] Apr, [facility] [place] [facility] [address] [id number] [address] [place] [address], [place] [address] Apr, [facility] [place] [facility] [address] [id number] [address] [place] [address], [place] [address] Apr, [facility] [place] [facility] [address] [id number] [address] [place] [address], [place] [address] Apr, [facility] [place] [facility] [address] [id number] [address] [place] [address], [place] [address] Mar, [facility] [address] [id number] [facility] [place] [address] Mar, [facility] [place] [facility] [address] [id number] [address] [place] [address], [place] [address] Mar, [facility] [place] [facility] [address] [id number] [address] [place] [address], [place] [address] Mar, [facility] [place] [facility] [address] [id number] [address] [place] [address], [place] [address] Mar, [facility] [place] [facility] [address] [id number] [address] [place] [address], [place] [address] Mar, [facility] [place] [facility] [address] [id number] [address] [place] [address], [place] [address] Feb, [facility] [place] [facility] [address] [id number] [address] [place] [address], [place] [address] Feb, [facility] [place] [facility] [address] [id number] [address] [place] [address], [place] [address] Feb, [facility] [place] [address] [id number] [address] [place] [address], [place] [address] Feb, [facility] [place] [facility] [address] [id number] [address] [place] [address], [place] [address] Feb, [facility] [place] [facility] [address] [id number] [address] [place] [address], [place] [address] Feb, [facility] [place] [facility] [address] [id number] [address] [place] [address], [place] [address] Feb, [facility] [address] [id number] [address] [place] [address], [place] [address] Feb, [facility] [place] [facility] [address] [id number] [address] [place] [address], [place] [address] January, [facility] [place] [facility] [address] [id number] [address] [place] [address], [place] [address] January, [facility] [place] [facility] [address] [id number] [address] [place] [address] January, [facility] [address] [id number] [address] [place] [address], [place] [address] January, [facility] [address] [id number] [address] [place] [address], [place] [address] January, [facility] [address] [id number] [address] [place] [address], [place] [address] January, [facility] [address] [id number] [address] [place] [address], [place] [address] January, [facility] [address] [id number] [address] [place] [address], [place] [address] January, [facility] [address] [id number] [address] [place] [address], [place] [address] Dec, [facility] [address] [id number] [address] [place] [address], [place] [address] Dec, [facility] [address] [id number] [address] [place] [address], [place] [address] Dec, [facility] [address] [id number] [address] [place] [address], [place] [address] Dec, [facility] [address] [id number] [address] [place] [address], [place] [address] Dec, [facility] [address] [id number] [address] [place] [address], [place] [address] Dec, [facility] [address] [id number] [address] [place] [address], [place] [address] Nov, [facility] [address] [id number] [address] [place] [address], [place] [address] Nov, [facility] [address] [id number] [address] [place] [address], [place] [address] Nov, [facility] [address] [id number] [address] [place] [address], [place] [address] Nov, [facility] [address] [id number] [address] [place] [address], [place] [address] Nov, [facility] [address] [id number] [address] [place] [address], [place] [address] Nov, [facility] [address] [id number] [address] [place] [address], [place] [address] Nov, [facility] [address] [id number] [address] [place] [address], [place] [address] Nov, [facility] [address] [id number] [address] [place] [address], [place] [address] Oct, [facility] [address] [id number] [address] [place] [address], [place] [address] Oct, [facility] [address] [id number] [address] [place] [address], [place] [address] Sep, [facility] [address] [id number] [address] [place] [address], [place] [address] Sep, [facility] [address] [id number] [address] [place] [address], [place] [address] Sep, [facility] [address] [id number] [address] [place] [address], [place] [address] Sep, [facility] [address] [id number] [address] [place] [address], [place] [address] Aug, [facility] [address] [id number] [address] [place] [address], [place] [address] Aug, [facility] [address] [id number] [address] [place] [address], [place] [address] Aug, [facility] [address] [id number] [address] [place] [address], [place] [address] Aug, [facility] [address] [id number] [address] [place] [address], [place] [address] Jul, [facility] [address] [id number] [address] [place] [address] Jul, [facility] [address] [id number] [address] [place] [address], [place] [address] Jul, [facility] [address] [id number] [address] [place] [address], [place] [address] Jul, [facility] [address] [id number] [address] [place] [address], [place] [address] Jul, [facility] [address] [id number] [address] [place] [address], [place] [address] Jul, [facility] [address] [id number] [address] [place] [address], [place] [address] Jul, [facility] [address] [id number] [address] [place] [address], [place] [address] Jul, [facility] [address] [id number] [address] [place] [address], [place] [address] Jul, [facility] [address] [id number] [address] [place] [address], [place] [address] Jul, [facility] [address] [id number] [address] [place] [address], [place] [address] Jul, [facility] [address] [id number] [address] [place] [address], [place] [address] Jul, [facility] [address] [id number] [address] [place] [address], [place] [address] Jun, [facility] [address] [id number] [address] [place] [address], [place] [address] Jun, [facility] [address] [id number] [address] [place] [address], [place] [address] Jun, [facility] [address] [id number] [address] [place] [address], [place] [address] Jun, [facility] [address] [id number] [address] [place] [address], [place] [address] Jun, [facility] [address] [id number] [address] [place] [address], [place] [address] 14 Jun, 2013 [facility] [facility] [address] [id number] [address] [place] [address], [place] [address] 14 Jun, 2013 [facility] [address] [id number] [address] [place] [address], [place] [address] 02 Jun, 2013 [facility] [address] [id number] [address] [place] [address], [place] [address] 15 May, 2013 [facility] [address] [id number] [address] [place] [address], [place] [address] 05 May, 2013 [facility] [address] [id number] [address] [place] [address], [place] [address] May, [facility] [address] [id number] [address] [place] [address], [place] [address] Apr, [facility] [address] [id number] [address] [place] [address], [place] [address] Apr, [facility] [address] [id number] [address] [place] [address], [place] [address] Mar, [facility] [address] [id number] [address] [place] [address], [place] [address] Mar, [facility] [address] [id number] [address] [place] [address], [place] [address] Feb, [facility] [address] [id number] [address] [place] [address], [place] [address] January, [facility] [address] [id number] [address] [place] [address], [place] [address] January, [facility] [address] [id number] [address] [place] [address], [place] [address] January, [facility] [address] [id number] [address] [place] [address], [place] [address] January, [facility] [address] [id number] [address] [place] [address], [place] [address] January, [facility] [address] [id number] [address] [place] [address], [place] [address] 29 Dec, 2012 [facility] [address] [id number] [address] [place] [address], [place] [address] 17 Dec, 2012 [facility] [address] [id number] [address] [place] [address], [place] [address] Dec, [facility] [address] [id number] [address] [place] [address], [place] [address] Nov, [facility] [address] [id number] [address] [place] [address], [place] [address] 27 Oct, 2012 [facility] [address] [id number] [address] [place] [address], [place] [address] 18 Oct, 2012 [facility] [address] [id number] [address] [place] [address], [place] [address] 15 Oct, 2012 [facility] [address] [id number] [address] [place] [address], [place] [address] Sep, [facility] [address] [id number] [address] [place] [address], [place] [address] 16 Sep, 2012 [facility] [address] [id number] [address] [place] [address], [place] [address] 14 Aug, 2012 [facility] [address] [id number] [address] [place] [address], [place] [address] 14 Aug, 2012 [facility] [address] [id number] [address] [place] [address], [place] [address] Aug, [facility] [address] [id number] [address] [place] [address], [place] [address] Aug, [facility] [address] [id number] [address] [place] [address], [place] [address] 21 Jul, 2012 [facility] [address] [id number] [address] [place] [address], [place] [address] Jul, [facility] [address] [id number] [address] [place] [address], [place] [address] Jul, [facility] [address] [id number] [address] [place] [address], [place] [address] Jul, [facility] [address] [id number] [address] [place] [address], [place] [address] Jul, [facility] [address] [id number] [address] [place] [address], [place] [address] 15 Jun, 2012 [facility] [address] [id number] [address] [place] [address], [place] [address] 15 Jun, 2012 [facility] [address] [id number] [address] [place] [address], [place] [address] Jun, [facility] [address] [id number] [address] [place] [address], [place] [address] 10 Jun, 2012 [facility] [address] [id number] [address] [place] [address], [place] [address] May, [facility] [address] [id number] [address] [place] [address], [place] [address] Apr, [facility] [address] [id number] [address] [place] [address], [place] [address] Apr, [facility] [address] [id number] [address] [place] [address], [place] [address] Apr, [facility] [address] [id number] [address] [place] [address], [place] [address] Apr, [facility] [address] [id number] [address] [place] [address], [place] [address] January, [facility] [address] [id number] [address] [place] [address], [place] [address] January, [facility] [address] [id number] [address] [place] [address], [place] [address] Dec, [facility] [address] [id number] [address] [place] [address], [place] [address] Dec, [facility] [address] [id number] [address] [place] [address], [place] [address] Nov, [facility] [address] [id number] [address] [place] [address], [place] [address] Nov, [facility] [address] [id number] [address] [place] [address], [place] [address] Nov, [facility] [address] [id number] [address] [place] [address], [place] [address] Nov, [facility] [address] [id number] [address] [place] [address], [place] [address] Oct, [facility] [address] [id number] [address] [place] [address], [place] [address] Oct, [facility] [address] [id number] [address] [place] [address], [place] [address] Oct, [facility] [address] [id number] [address] [place] [address], [place] [address] Sep, [facility] [address] [id number] [address] [place] [address], [place] [address] Sep, [facility] [address] [id number] [address] [place] [address], [place] [address] Aug, [facility] [address] [id number] [address] [place] [address], [place] [address] Aug, [facility] [address] [id number] [address] [place] [address], [place] [address] 15 Jul, 2011 [facility] [address] [id number] [address] [place] [address], [place] [address] Jul, [facility] [address] [id number] [address] [place] [address], [place] [address] 04 Jul, 2011 [facility] [address] [id number] [address] [place] [address], [place] [address] 26 Jun, 2011 [facility] [address] [id number] [address] [place] [address], [place] [address] 24 Jun, 2011 [facility] [address] [id number] [address] [place] [address], [place] [address] 11 Jun, 2011 [facility] [address] [id number] [address] [place] [address], [place] [address] Jun, [facility] [address] [id number] [address] [place] [address], [place] [address] Jun, [facility] [address] [id number] [address] [place] [address], [place] [address] Jun, [facility] [address] [id number] [address] [place] [address], [place] [address] Aug, [facility] [address] [id number] [address] [place] [address], [place] [address] Aug, [facility] [address] [id number] [address] [place] [address], [place] [address] Aug, [facility] [address] [id number] [address] [place] [address], [place] [address] Jul, [facility] [address] [id number] [address] [place] [address], [place] [address] Jul, [facility] [address] [id number] [address] [place] [address], [place] [address] Jul, [facility] [address] [id number] [address] [place] [address], [place] [address] Jul, [facility] [address] [id number] [address] [place] [address], [place] [address] Jul, [facility] [address] [id number] [address] [place] [address], [place] [address] Jul, [facility] [address] [id number] [address] [place] [address], [place] [address] Jun, [facility] [address] [id number] [address] [place] [address], [place] [address] Apr, [facility] [address] [id number] [address] [place] [address] Feb, [facility] [address] [id number] [address] [place] [address] [address], [address] [facility] [address] [id number] [address] [place] [address] Sep, [facility] [address] [facility] [facility] [id number] [address] [place] [address] Aug, [facility] [address] [id number] [address] [place] [address] Aug, [facility] [address] [address] [facility] [id number] [address] [place] [address] Aug, [facility] [address] [address] [facility] [id number] [address] [place] [address] Jul, [facility] [address] [facility] [address] [facility] [id number] [address] [place] [address] Jun, IMMUNIZATIONS No Known Immunizations SOCIAL HISTORY Never Assessed REASON FOR VISIT Controlled x''s 2, due 02/08 PLAN OF CARE VITAL SIGNS MEDICATIONS Medication [...]
--- OUTSIDE RECORDS SUMMARY | 2020-02-22 17:31 | XMS REPORT ---
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 Name Role Phone ZACKARY TRUJILLO Unavailable PROBLEMS Type Condition ICD9-CM Code HJP21-HM Code Onset Dates Condition S tatus SNOMED Code Problem Dyspepsia R10.13 Active 727368724 Problem History of anemia Z86.2 Active 27 5247541 Problem Cervical disc disease M50.90 Active 437522232 Problem Neck pain M54.2 Active [id number] ALLERGIES No Information ENCOUNTERS Encounter Location Date Diagnosis [facility] [address] [facility] [id number] [address] [place] [phone] Mar, [facility] [address] [facility] [id number] [address] [place] [phone] Mar, Cervical disc disease M50.90 [facility] [address] [facility] [id number] [address] [place] [id number] Feb, Cervical disc disease M50.90 [facility] [address] [facility] [id number] [address] [place] [phone] January, Cervical disc disease M50.90 [facility] [address] [facility] [id number] [address] [place] [phone] Dec, [facility] [address] [facility] [id number] [address] [place] [phone] Dec, Cervical disc disease M50.90 [facility] [address] [facility] [id number] [address] [place] [phone] Nov, Cervical disc disease M50.90 [facility] [address] [facility] [id number] [address] [place] [phone] Nov, Cervical disc disease M50.90 [facility] [address] [facility] [id number] [address] [place] [id number] 15 Oct, 2017 Cervical disc disease M50.90 [facility] [address] [facility] [id number] [address] [place] [id number] Oct, Cervical disc disease M50.90 and Acute non-recurrent maxillary sinusitis J01.00 [facility] [address] [facility] [id number] [address] [place] [phone] Sep, Cervical disc disease M50.90 [facility] [address] [facility] [id number] [address] [place] [phone] Sep, [facility] [address] [place] [id number] [place] [phone] Sep, Fatigue, unspecified type R5 3.83 and Cough R05 [place] [address] [place] [id number] [address] [place] [id number] Aug, Cervical disc disease M50.90 [facility] [address] [place] [id number] [address] [place] [phone] Aug, Sore throat J02.9 ; Canker s ore K12.0 and History of anemia Z86.2 [place] [address] [facility] [id number] [address] [place] [address] Jul, Cervical disc disease M50.90 [facility] [address] [place] [id number] [address] [place] [id number] Jun, Cervical disc disease M50.90 [place] [address] [place] [id number] [address] [place] [id number] Jun, Cervical disc disease M50.90 [place] [address] [place] [id number] [address] [place] [id number] May, Cervical disc disease M50.90 [facility] [address] [place] [id number] [address] [place] [phone] Apr, Cervical disc disease M50.90 [facility] [address] [id number] [address] [place] [phone] Apr, [facility] [address] [facility] [id number] [address] [place] [phone] Feb, Cervical disc disease M50.90 [facility] [address] [facility] [id number] [address] [place] [phone] January, Cervical disc disease M50.90 [facility] [address] [id number] [address] [place] [phone] Nov, [facility] [address] [id number] [address] [place] [phone] Nov, Cervical disc disease M50.90 [facility] [address] [facility] [id number] [address] [place] [phone] Nov, Acute cystitis with hematuri a N30.01 and Dysuria R30.0 [facility] [address] [facility] [id number] [address] [place] [id number] Oct, Cervical disc disease M50.90 and Acute non-recurrent frontal sinusitis J01.10 [facility] [address] [facility] [id number] [address] [place] [id number] Sep, Neck pain M54.2 [facility] [address] [facility] [id number] [address] [place] [phone] Sep, [facility] [address] [facility] [id number] [address] [place] [address] Aug, Cervical disc disease M50.90 [facility] [address] [id number] [address] [place] [phone] Jul, [facility] [address] [facility] [id number] [address] [place] [phone] Jun, [facility] [address] [facility] [id number] [address] [place] [phone] May, [facility] [address] [id number] [address] [place] [phone] May, Screening for diabetes blanchei tus Z13.1 ; Chronic fatigue R53.82 and Edema, unspecified type R60.9 [facility] [address] [id number] [address] [place] [phone] Apr, Neck pain M54.2 [facility] [address] [id number] [address] [place] [phone] Mar, [facility] [address] [id number] [address] [place] [phone] Mar, Neck pain M54.2 [facility] [address] [id number] [address] [place] [phone] Feb, Cervical disc disease M50.90 [facility] [address] [id number] [address] [place] [phone] Feb, Cervical disc disease M50.90 [facility] [address] [id number] [address] [place] [phone] January, [facility] [address] [id number] [address] [place] [phone] January, [facility] [address] [id number] [address] [place] [id number] January, Cervical disc disease M50.90 [facility] [address] [id number] [address] [place] [phone] January, [facility] [address] [id number] [address] [place] [phone] January, [facility] [address] [id number] [address] [place] [phone] Dec, Cervical disc disease M50.90 [facility] [address] [id number] [address] [place] [phone] Nov, Cervical disc disease M50.90 [facility] [address] [id number] [address] [place] [id number] 08 Oct, 2015 Cervical disc disease M50.90 [facility] [address] [id number] [address] [place] [id number] Sep, Cervical disc disease M50.90 [facility] [address] [id number] [address] [place] [id number] 16 Aug, 2015 Dental caries K02.9 and Enco unter for dental examination Z01.20 [facility] [address] [id number] [address] [place] [phone] 16 Aug, 2015 [facility] [address] [id number] [address] [place] [phone] Aug, [facility] [address] [id number] [address] [place] [id number] Aug, Encounter for dental examina tion Z01.20 [facility] [address] [id number] [address] [place] [phone] Jul, [facility] [address] [id number] [address] [place] [phone] Jun, Sinusitis J32.9 and Cervical disc disease M50.90 [facility] [address] [id number] [address] [place] [phone] Jun, [facility] [address] [id number] [address] [place] [phone] 24 May, 2015 [facility] [address] [id number] [address] [place] [phone] 23 May, 2015 [facility] [address] [id number] [address] [place] [id number] 22 May, 2015 [facility] [address] [id number] [address] [place] [phone] May, [facility] [address] [id number] [address] [place] [phone] Apr, Cervical spondylosis without myelopathy 721.0 [place] [address] [id number] [address] [place] [phone] Mar, [facility] [address] [id number] [address] [place] [phone] January, Cervical spondylosis without myelopathy 721.0 [facility] [address] [id number] [address] [place] [address], [place] [address] Dec, [facility] [address] [id number] [address] [place] [phone] Dec, [facility] [address] [id number] [address] [place] [address], [place] [address] Dec, [facility] [address] [id number] [address] [place] [phone] Nov, [facility] [address] [id number] [address] [place] [phone] Nov, [facility] [address] [id number] [address] [place] [phone] Oct, [facility] [address] [id number] [address] [place] [phone] Oct, [facility] [address] [id number] [address] [place] [phone] Oct, [facility] [address] [id number] [address] [place] [phone] Oct, [facility] [address] [id number] [address] [place] [phone] Oct, [facility] [address] [id number] [address] [place] [phone] Oct, [facility] [address] [id number] [address] [place] [phone] Oct, [facility] [address] [id number] [address] [place] [phone] Oct, [facility] [address] [id number] [address] [place] [address], [place] [address] Oct, [facility] [address] [id number] [address] [place] [address], [place] [address] Oct, [facility] [address] [id number] [address] [place] [address], [place] [address] Sep, [facility] [address] [id number] [address] [place] [address], [place] [address] Sep, [facility] [address] [id number] [address] [place] [address], [place] [address] Sep, [facility] [address] [id number] [address] [place] [address], [place] [address] Sep, [facility] [address] [id number] [address] [place] [address], [place] [address] Sep, [facility] [address] [id number] [address] [place] [address], [place] [address] Sep, [facility] [address] [id number] [address] [place] [address], [place] [address] Sep, [facility] [address] [id number] [address] [place] [address], [place] [address] Sep, [facility] [address] [id number] [address] [place] [address], [place] [address] Sep, [facility] [address] [id number] [address] [place] [address], [place] [address] Aug, [facility] [address] [id number] [address] [place] [address], [place] [address] Aug, [facility] [address] [id number] [address] [place] [address], [place] [address] Aug, [facility] [address] [id number] [address] [place] [address], [place] [address] Aug, [facility] [address] [id number] [address] [place] [address], [place] [address] Jul, [facility] [address] [id number] [address] [place] [address], [place] [address] Jul, [facility] [address] [id number] [address] [place] [address], [place] [address] Jul, [facility] [address] [id number] [address] [place] [address], [place] [address] Jul, [facility] [address] [id number] [address] [place] [address], [place] [address] Jul, [facility] [address] [id number] [address] [place] [address], [place] [address] Jul, [facility] [address] [id number] [address] [place] [address], [place] [address] Jul, [facility] [address] [id number] [address] [place] [address], [place] [address] Jul, [facility] [address] [id number] [address] [place] [address], [place] [address] Jun, [facility] [address] [id number] [address] [place] [address], [place] [address] 27 Jun, 2014 [facility] [address] [id number] [address] [place] [address], [place] [address] Jun, [facility] [address] [id number] [address] [place] [address], [place] [address] 20 Jun, 2014 [facility] [address] [id number] [address] [place] [phone] 16 Jun, 2014 [facility] [address] [id number] [address] [place] [address], [place] [address] 15 Jun, 2014 [facility] [address] [id number] [address] [place] [address], [place] [address] 15 Jun, 2014 [facility] [address] [id number] [address] [place] [address], [place] [address] 14 Jun, 2014 [facility] [address] [id number] [address] [place] [address], [place] [address] 14 Jun, 2014 [facility] [address] [id number] [address] [place] [address], [place] [address] Jun, [facility] [address] [id number] [address] [place] [address], [place] [address] Jun, [facility] [address] [id number] [address] [place] [address], [place] [address] May, [facility] [address] [id number] [address] [place] [address], [place] [address] May, [facility] [address] [id number] [address] [place] [address], [place] [address] May, [facility] [address] [id number] [address] [place] [address], [place] [address] May, [facility] [address] [id number] [address] [place] [address], [place] [address] May, [facility] [address] [id number] [address] [place] [address], [place] [address] Apr, [facility] [address] [id number] [address] [place] [address], [place] [address] Apr, [facility] [address] [id number] [address] [place] [address], [place] [address] Apr, [facility] [address] [id number] [address] [place] [address], [place] [address] Apr, [facility] [address] [id number] [address] [place] [address], [place] [address] Apr, [facility] [address] [id number] [address] [place] [address], [place] [address] Apr, [facility] [address] [id number] [address] [place] [address], [place] [address] Mar, [facility] [address] [id number] [address] [place] [address], [place] [address] Mar, [facility] [address] [id number] [address] [place] [address], [place] [address] Mar, [facility] [address] [id number] [address] [place] [address], [place] [address] Mar, [facility] [address] [id number] [address] [place] [address], [place] [address] Mar, [facility] [address] [id number] [address] [place] [address], [place] [address] Mar, [facility] [address] [id number] [address] [place] [address], [place] [address] Feb, [facility] [address] [id number] [address] [place] [address], [place] [address] Feb, [facility] [address] [id number] [address] [place] [address], [place] [address] Feb, [facility] [address] [id number] [address] [place] [address], [place] [address] Feb, [facility] [address] [id number] [address] [place] [address], [place] [address] Feb, [facility] [address] [id number] [address] [place] [address], [place] [address] Feb, [facility] [address] [id number] [address] [place] [address], [place] [address] Feb, [facility] [address] [id number] [address] [place] [address], [place] [address] Feb, [facility] [address] [id number] [address] [place] [address], [place] [address] January, [facility] [address] [id number] [address] [place] [address], [place] [address] January, [facility] [address] [id number] [address] [place] [address], [place] [address] January, [facility] [address] [id number] [address] [place] [address], [place] [address] January, [facility] [address] [id number] [address] [place] [address], [place] [address] January, [facility] [address] [id number] [address] [place] [address], [place] [address] January, [facility] [address] [id number] [address] [place] [address], [place] [address] January, [facility] [address] [id number] [address] [place] [address], [place] [address] January, [facility] [address] [id number] [address] [place] [address], [place] [address] Dec, [facility] [address] [id number] [address] [place] [address], [place] [address] Dec, [facility] [address] [id number] [address] [place] [address], [place] [address] Dec, [facility] [address] [id number] [address] [place] [address], [place] [address] Dec, [facility] [address] [id number] [address] [place] [address], [place] [address] Dec, [facility] [address] [id number] [address] [place] [address], [place] [address] Dec, [facility] [address] [id number] [address] [place] [address], [place] [address] Nov, [facility] [address] [id number] [address] [place] [address], [place] [address] Nov, [facility] [address] [id number] [address] [place] [address], [place] [address] Nov, [facility] [address] [id number] [address] [place] [address], [place] [address] Nov, [facility] [address] [id number] [address] [place] [address], [place] [address] Nov, [facility] [address] [id number] [address] [place] [address], [place] [address] Nov, [facility] [address] [id number] [address] [place] [address], [place] [address] Nov, [facility] [address] [id number] [address] [place] [address], [place] [address] Nov, [facility] [address] [id number] [address] [place] [address], [place] [address] Oct, [facility] [address] [id number] [address] [place] [address], [place] [address] Oct, [facility] [address] [id number] [address] [place] [address], [place] [address] Sep, [facility] [address] [id number] [address] [place] [address], [place] [address] Sep, [facility] [address] [id number] [address] [place] [address], [place] [address] Sep, [facility] [address] [id number] [address] [place] [address], [place] [address] Sep, [facility] [address] [id number] [address] [place] [address], [place] [address] Aug, [facility] [address] [id number] [address] [place] [address], [place] [address] Aug, [facility] [address] [id number] [address] [place] [address], [place] [address] Aug, [facility] [address] [id number] [address] [place] [address], [place] [address] Aug, [facility] [address] [id number] [address] [place] [address], [place] [address] Jul, [facility] [address] [id number] [address] [place] [address], [place] [address] Jul, [facility] [address] [id number] [address] [place] [address] [address] Jul, [facility] [address] [id number] [address] [place] [address], [place] [address] Jul, [facility] [address] [id number] [address] [place] [address], [place] [address] Jul, [facility] [address] [id number] [address] [place] [address], [place] [address] Jul, [facility] [address] [id number] [address] [place] [address], [place] [address] Jul, [facility] [address] [id number] [address] [place] [address], [place] [address] Jul, [facility] [address] [id number] [address] [place] [address], [place] [address] Jul, [facility] [address] [id number] [address] [place] [address], [place] [address] Jul, [facility] [address] [id number] [address] [place] [address], [place] [address] Jul, [facility] [address] [address] [id number] [address] [place] [address], [place] [address] Jul, [facility] [address] [id number] [address] [place] [address], [place] [address] Jun, [facility] [address] [id number] [address] [place] [phone] Jun, [facility] [address] [id number] [address] [place] [phone] Jun, [facility] [address] [id number] [address] [place] [address], [place] [address] Jun, [facility] [address] [id number] [address] [place] [id number] 16 Jun, 2013 [facility] [address] [id number] [address] [place] [id number] 14 Jun, 2013 [facility] [address] [id number] [address] [place] [address], [place] [address] 14 Jun, 2013 [facility] [address] [id number] [address] [place] [address], [place] [address] 02 Jun, 2013 [facility] [address] [id number] [address] [place] [address], [place] [address] 15 May, 2013 [facility] [address] [id number] [address] [place] [address], [place] [address] 05 May, 2013 [facility] [address] [id number] [address] [place] [address], [place] [address] May, [facility] [address] [id number] [address] [place] [address], [place] [address] Apr, [facility] [address] [id number] [address] [place] [address], [place] [address] Apr, [facility] [address] [id number] [address] [place] [address], [place] [address] Mar, [facility] [address] [id number] [address] [place] [address], [place] [address] Mar, [facility] [address] [id number] [address] [place] [address], [place] [address] Feb, [facility] [address] [id number] [address] [place] [address], [place] [address] January, [facility] [address] [id number] [address] [place] [address], [place] [address] January, [facility] [address] [id number] [address] [place] [address], [place] [address] January, [facility] [address] [id number] [address] [place] [address], [place] [address] January, [facility] [address] [id number] [address] [place] [address], [place] [address] January, [facility] [address] [id number] [address] [place] [address], [place] [address] Dec, [facility] [address] [id number] [address] [place] [address], [place] [address] 17 Dec, 2012 [facility] [address] [id number] [address] [place] [address], [place] [address] 02 Dec, 2012 [facility] [address] [id number] [address] [place] [address], [place] [address] Nov, [facility] [address] [id number] [address] [place] [address], [place] [address] 27 Oct, 2012 [facility] [address] [id number] [address] [place] [address], [place] [address] 18 Oct, 2012 [facility] [address] [id number] [address] [place] [address], [place] [address] 15 Oct, 2012 [facility] [address] [id number] [address] [place] [address], [place] [address] Sep, [facility] [address] [id number] [address] [place] [address], [place] [address] 16 Sep, 2012 [facility] [address] [id number] [address] [place] [address], [place] [address] 14 Aug, 2012 [facility] [address] [id number] [address] [place] [address], [place] [address] 14 Aug, 2012 [facility] [address] [id number] [address] [place] [address], [place] [address] Aug, [facility] [address] [id number] [address] [place] [address], [place] [address] Aug, [facility] [address] [id number] [address] [place] [address], [place] [address] Jul, [facility] [address] [id number] [address] [place] [address], [place] [address] Jul, [facility] [address] [id number] [address] [place] [address], [place] [address] Jul, [facility] [address] [id number] [address] [place] [address], [place] [address] Jul, [facility] [address] [id number] [address] [place] [address], [place] [address] Jul, [facility] [address] [id number] [address] [place] [address], [place] [address] 15 Jun, 2012 [facility] [address] [id number] [address] [place] [address], [place] [address] 15 Jun, 2012 [facility] [address] [id number] [address] [place] [address], [place] [address] 10 Jun, 2012 [facility] [address] [id number] [address] [place] [address], [place] [address] Jun, [facility] [address] [id number] [address] [place] [address], [place] [address] May, [facility] [address] [id number] [address] [place] [address], [place] [address] Apr, [facility] [address] [id number] [address] [place] [address], [place] [address] Apr, [facility] [address] [id number] [address] [place] [address], [place] [address] Apr, [facility] [address] [id number] [address] [place] [address], [place] [address] Apr, [facility] [address] [id number] [address] [place] [address], [place] [address] January, [facility] [address] [id number] [address] [place] [address], [place] [address] January, [facility] [address] [id number] [address] [place] [address], [place] [address] Dec, [facility] [address] [id number] [address] [place] [address], [place] [address] Dec, [facility] [address] [id number] [address] [place] [address], [place] [address] Nov, [facility] [address] [id number] [address] [place] [address], [place] [address] Nov, [facility] [address] [id number] [address] [place] [address], [place] [address] Nov, [facility] [address] [id number] [address] [place] [address], [place] [address] Nov, [facility] [address] [id number] [address] [place] [address], [place] [address] Oct, [facility] [address] [id number] [address] [place] [address], [place] [address] Oct, [facility] [address] [id number] [address] [place] [address], [place] [address] Oct, [facility] [address] [id number] [address] [place] [address], [place] [address] Sep, [facility] [address] [id number] [address] [place] [address], [place] [address] Sep, [facility] [address] [id number] [address] [place] [address], [place] [address] Aug, [facility] [address] [id number] [address] [place] [address], [place] [address] Aug, [facility] [address] [id number] [address] [place] [address], [place] [address] Jul, [facility] [address] [id number] [address] [place] [address], [place] [address] Jul, [facility] [address] [id number] [address] [place] [address], [place] [address] Jul, [facility] [address] [id number] [address] [place] [address], [place] [address] Jun, [facility] [address] [id number] [address] [place] [address], [place] [address] 24 Jun, 2011 [facility] [address] [id number] [address] [place] [address], [place] [address] 11 Jun, 2011 [facility] [address] [id number] [address] [place] [address], [place] [address] 10 Jun, 2011 [facility] [address] [id number] [address] [place] [address], [place] [address] Jun, [facility] [address] [id number] [address] [place] [address], [place] [address] Jun, [facility] [address] [id number] [address] [place] [address], [place] [address] Aug, [facility] [address] [id number] [address] [place] [address], [place] [address] Aug, [facility] [address] [id number] [address] [place] [address], [place] [address] Aug, [facility] [address] [id number] [address] [place] [address], [place] [address] Jul, [facility] [address] [id number] [address] [place] [address], [place] [address] Jul, [facility] [address] [id number] [address] [place] [address], [place] [address] Jul, [facility] [address] [id number] [address] [place] [address], [place] [address] Jul, [facility] [address] [id number] [address] [place] [address] Jul, [facility] [address] [id number] [address] [place] [id number] Jul, [facility] [address] [id number] [address] [place] [address], [place] [address] Jun, [facility] [address] [id number] [address] [place] [address] Apr, [facility] [address] [id number] [address] [place] [id number] Feb, [facility] [address] [id number] [address] [place] [address] 10 Oct, 2009 [facility] [address] [facility] [id number] [address] [place] [address] Sep, [facility] [address] [facility] [id number] [address] [place] [address] Aug, [facility] [address] [facility] [id number] [address] [place] [id number] Aug, [facility] [address] [facility] [id number] [address] [place] [phone] Aug, [facility] [address] [facility] [id number] [address] [place] [id number] Jul, [facility] [address] [facility] [id number] [address] [place] [id number] Jun, IMMUNIZATIONS No Known Immunizations SOCIAL HISTORY Never Assessed REASON FOR VISIT Tramadol 12/14 PLAN OF CARE VITAL SIGNS MEDICATIONS Medication [...]
[2020-02-22 17:32] LABS: CALCIUM 9.5 MG/DL (8.5-10.1)
--- OUTSIDE RECORDS SUMMARY | 2020-02-22 17:32 | XMS REPORT ---
Author Author Marion TRUJILLO Organization [facility] Address [address] [place] [address] Care Team Providers Care Reproduction Technician Name Role Phone ZACKARY TRUJILLO Unavailable PROBLEMS Type Condition ICD9-CM Code LUQ61-BR Code Onset Dates Condition S tatus SNOMED Code Problem Dyspepsia R10.13 Active 305409175 Problem History of anemia Z86.2 Active 27 0790416 Problem Cervical disc disease M50.90 Active 364798727 Problem Neck pain M54.2 Active [id number] ALLERGIES No Information ENCOUNTERS Encounter Location Date Diagnosis [facility] [address] [facility] [id number] [address] [place] [phone] Mar, [facility] [address] [facility] [id number] [address] [place] [phone] Mar, Cervical disc disease M50.90 [facility] [address] [facility] [id number] [address] [place] [phone] Feb, Cervical disc disease M50.90 [facility] [address] [facility] [id number] [address] [place] [phone] January, Cervical disc disease M50.90 [facility] [address] [facility] [id number] [address] [place] [phone] Dec, [facility] [address] [facility] [id number] [address] [place] [address] Dec, Cervical disc disease M50.90 [facility] [address] [facility] [id number] [address] [place] [phone] Nov, Cervical disc disease M50.90 [facility] [address] [facility] [id number] [address] [place] [phone] Nov, Cervical disc disease M50.90 [facility] [address] [facility] [id number] [address] [place] [phone] 15 Oct, 2017 Cervical disc disease M50.90 [facility] [address] [facility] [id number] [address] [place] [phone] Oct, Cervical disc disease M50.90 and Acute non-recurrent maxillary sinusitis J01.00 [facility] [address] [facility] [id number] [address] [place] [address] Sep, Cervical disc disease M50.90 [facility] [address] [facility] [id number] [address] [place] [phone] Sep, [facility] [address] [place] [id number] [place] [address] Sep, Fatigue, unspecified type R5 3.83 and Cough R05 [place] [address] [place] [id number] [address] [place] [address] Aug, Cervical disc disease M50.90 [facility] [address] [place] [id number] [address] [place] [address] Aug, Sore throat J02.9 ; Canker s ore K12.0 and History of anemia Z86.2 [place] [address] [facility] [id number] [address] [place] [address] Jul, Cervical disc disease M50.90 [facility] [address] [place] [id number] [address] [place] [address] Jun, Cervical disc disease M50.90 [place] [address] [place] [id number] [address] [place] [address] Jun, Cervical disc disease M50.90 [place] [address] [place] [id number] [address] [place] [address] May, Cervical disc disease M50.90 [facility] [address] [place] [id number] [address] [place] [address] Apr, Cervical disc disease M50.90 [facility] [address] [id number] [address] [place] [phone] Apr, [facility] [address] [facility] [id number] [address] [place] [address] Feb, Cervical disc disease M50.90 [facility] [address] [facility] [id number] [address] [place] [phone] January, Cervical disc disease M50.90 [facility] [address] [id number] [address] [place] [address] Nov, [facility] [address] [id number] [address] [place] [address] Nov, Cervical disc disease M50.90 [facility] [address] [facility] [id number] [address] [place] [address] Nov, Acute cystitis with hematuri a N30.01 and Dysuria R30.0 [facility] [address] [facility] [id number] [address] [place] [address] Oct, Cervical disc disease M50.90 and Acute non-recurrent frontal sinusitis J01.10 [facility] [address] [facility] [id number] [address] [place] [address] Sep, Neck pain M54.2 [facility] [address] [facility] [id number] [address] [place] [phone] Sep, [facility] [address] [facility] [id number] [address] [place] [address] Aug, Cervical disc disease M50.90 [facility] [address] [id number] [address] [place] [phone] Jul, [facility] [address] [facility] [id number] [address] [place] [phone] Jun, [facility] [address] [facility] [id number] [address] [place] [address] May, [facility] [address] [id number] [address] [place] [address] May, Screening for diabetes blanchei tus Z13.1 ; Chronic fatigue R53.82 and Edema, unspecified type R60.9 [facility] [address] [id number] [address] [place] [phone] Apr, Neck pain M54.2 [facility] [address] [id number] [address] [place] [phone] Mar, [facility] [address] [id number] [address] [place] [phone] Mar, Neck pain M54.2 [facility] [address] [id number] [address] [place] [address] Feb, Cervical disc disease M50.90 [facility] [address] [id number] [address] [place] [address] Feb, Cervical disc disease M50.90 [facility] [address] [id number] [address] [place] [address] January, [facility] [address] [id number] [address] [place] [address] January, [facility] [address] [id number] [address] [place] [address] January, Cervical disc disease M50.90 [facility] [address] [id number] [address] [place] [phone] January, [facility] [address] [id number] [address] [place] [address] January, [facility] [address] [id number] [address] [place] [address] Dec, Cervical disc disease M50.90 [facility] [address] [id number] [address] [place] [address] Nov, Cervical disc disease M50.90 [facility] [address] [id number] [address] [place] [phone] 08 Oct, 2015 Cervical disc disease M50.90 [facility] [address] [id number] [address] [place] [address] Sep, Cervical disc disease M50.90 [facility] [address] [id number] [address] [place] [id number] 16 Aug, 2015 Dental caries K02.9 and Enco unter for dental examination Z01.20 [facility] [address] [id number] [address] [place] [phone] 16 Aug, 2015 [facility] [address] [id number] [address] [place] [address] Aug, [facility] [address] [id number] [address] [place] [address] [id number] Aug, Encounter for dental examina tion Z01.20 [facility] [address] [id number] [address] [place] [address] Jul, [facility] [address] [id number] [address] [place] [address] Jun, Sinusitis J32.9 and Cervical disc disease M50.90 [facility] [address] [id number] [address] [place] [address] Jun, [facility] [address] [id number] [address] [place] [id number] 24 May, 2015 [facility] [address] [id number] [address] [place] [phone] 23 May, 2015 [facility] [address] [id number] [address] [place] [phone] 22 May, 2015 [facility] [address] [id number] [address] [place] [phone] May, [facility] [address] [id number] [address] [place] [phone] Apr, Cervical spondylosis without myelopathy 721.0 [place] [address] [id number] [address] [place] [phone] Mar, [facility] [address] [id number] [address] [place] [phone] January, Cervical spondylosis without myelopathy 721.0 [facility] [address] [id number] [address] [place] [address], [place] [address] Dec, [facility] [address] [id number] [address] [place] [phone] Dec, [facility] [address] [id number] [address] [place] [address], [place] [address] Dec, [facility] [address] [id number] [address] [place] [phone] Nov, [facility] [address] [id number] [address] [place] [address] Nov, [facility] [address] [id number] [address] [place] [phone] Oct, [facility] [address] [id number] [address] [place] [phone] Oct, [facility] [address] [id number] [address] [place] [phone] Oct, [facility] [address] [id number] [address] [place] [phone] Oct, [facility] [address] [id number] [address] [place] [address] Oct, [facility] [address] [id number] [address] [place] [phone] Oct, [facility] [address] [id number] [address] [place] [phone] Oct, [facility] [address] [id number] [address] [place] [phone] Oct, [facility] [address] [id number] [address] [place] [address], [place] [address] Oct, [facility] [address] [id number] [address] [place] [address], [place] [address] Oct, [facility] [address] [id number] [address] [place] [address], [place] [address] Sep, [facility] [address] [id number] [address] [place] [address], [place] [address] Sep, [facility] [address] [id number] [address] [place] [address], [place] [address] Sep, [facility] [address] [id number] [address] [place] [address], [place] [phone] Sep, [facility] [address] [id number] [address] [place] [address], [place] [address] Sep, [facility] [address] [id number] [address] [place] [address], [place] [address] Sep, [facility] [address] [id number] [address] [place] [address], [place] [phone] Sep, [facility] [address] [id number] [address] [place] [address], [place] [address] Sep, [facility] [address] [id number] [address] [place] [address], [place] [phone] Sep, [facility] [address] [id number] [address] [place] [address], [place] [address] Aug, [facility] [address] [id number] [address] [place] [address], [place] [address] Aug, [facility] [address] [id number] [address] [place] [address], [place] [phone] Aug, [facility] [address] [id number] [address] [place] [address], [place] [phone] Aug, [facility] [address] [id number] [address] [place] [address], [place] [address] Jul, [facility] [address] [id number] [address] [place] [address], [place] [address] Jul, [facility] [address] [id number] [address] [place] [address], [place] [address] Jul, [facility] [address] [id number] [address] [place] [address], [place] [address] Jul, [facility] [address] [id number] [address] [place] [address], [place] [address] Jul, [facility] [address] [id number] [address] [place] [address], [place] [address] Jul, [facility] [address] [id number] [address] [place] [address], [place] [address] Jul, [facility] [address] [id number] [address] [place] [address], [place] [address] Jul, [facility] [address] [id number] [address] [place] [address], [place] [address] Jun, [facility] [address] [id number] [address] [place] [address], [place] [address] 27 Jun, 2014 [facility] [address] [id number] [address] [place] [address], [place] [address] Jun, [facility] [address] [id number] [address] [place] [address], [place] [address] 20 Jun, 2014 [facility] [address] [id number] [address] [place] [phone] 16 Jun, 2014 [facility] [address] [id number] [address] [place] [address], [place] [address] 15 Jun, 2014 [facility] [address] [id number] [address] [place] [address], [place] [address] 15 Jun, 2014 [facility] [address] [id number] [address] [place] [address], [place] [address] 14 Jun, 2014 [facility] [address] [id number] [address] [place] [address], [place] [address] 14 Jun, 2014 [facility] [address] [id number] [address] [place] [address], [place] [address] Jun, [facility] [address] [id number] [address] [place] [address], [place] [address] Jun, [facility] [address] [id number] [address] [place] [address], [place] [address] May, [facility] [address] [id number] [address] [place] [address], [place] [address] May, [facility] [address] [id number] [address] [place] [address], [place] [address] May, [facility] [address] [id number] [address] [place] [address], [place] [address] May, [facility] [address] [id number] [address] [place] [address], [place] [address] May, [facility] [address] [id number] [address] [place] [address], [place] [address] Apr, [facility] [address] [id number] [address] [place] [address], [place] [address] Apr, [facility] [address] [id number] [address] [place] [address], [place] [address] Apr, [facility] [address] [id number] [address] [place] [address], [place] [address] Apr, [facility] [address] [id number] [address] [place] [address], [place] [address] Apr, [facility] [address] [id number] [address] [place] [address], [place] [address] Apr, [facility] [address] [id number] [address] [place] [address], [place] [address] Mar, [facility] [address] [id number] [address] [place] [address], [place] [address] Mar, [facility] [address] [id number] [address] [place] [address], [place] [address] Mar, [facility] [address] [id number] [address] [place] [address], [place] [address] Mar, [facility] [address] [id number] [address] [place] [address], [place] [address] Mar, [facility] [address] [id number] [address] [place] [address], [place] [address] Mar, [facility] [address] [id number] [address] [place] [address], [place] [address] Feb, [facility] [address] [id number] [address] [place] [address], [place] [address] Feb, [facility] [address] [id number] [address] [place] [address], [place] [address] Feb, [facility] [address] [id number] [address] [place] [address], [place] [address] Feb, [facility] [address] [id number] [address] [place] [address], [place] [address] Feb, [facility] [address] [id number] [address] [place] [address], [place] [address] Feb, [facility] [address] [id number] [address] [place] [address], [place] [address] Feb, [facility] [address] [id number] [address] [place] [address], [place] [address] Feb, [facility] [address] [id number] [address] [place] [address], [place] [address] January, [facility] [address] [id number] [address] [place] [address], [place] [address] January, [facility] [address] [id number] [address] [place] [address], [place] [address] January, [facility] [address] [id number] [address] [place] [address], [place] [address] January, [facility] [address] [id number] [address] [place] [address], [place] [address] January, [facility] [address] [id number] [address] [place] [address], [place] [address] January, [facility] [address] [id number] [address] [place] [address], [place] [address] January, [facility] [address] [id number] [address] [place] [address], [place] [address] January, [facility] [address] [id number] [address] [place] [address], [place] [address] Dec, [facility] [address] [id number] [address] [place] [address], [place] [address] Dec, [facility] [address] [id number] [address] [place] [address], [place] [id number] Dec, [facility] [address] [id number] [address] [place] [address], [place] [id number] Dec, [facility] [address] [id number] [address] [place] [address], [place] [id number] Dec, [facility] [address] [id number] [address] [place] [address], [place] [id number] Dec, [facility] [address] [id number] [address] [place] [address], [place] [id number] Nov, [facility] [address] [id number] [address] [place] [address], [place] [id number] Nov, [facility] [address] [id number] [address] [place] [address], [place] [id number] Nov, [facility] [address] [id number] [address] [place] [address], [place] [id number] Nov, [facility] [address] [id number] [address] [place] [address], [place] [id number] Nov, [facility] [address] [id number] [address] [place] [address], [place] [phone] Nov, [facility] [address] [id number] [address] [place] [address], [place] [id number] Nov, [facility] [address] [id number] [address] [place] [address], [place] [id number] Nov, [facility] [address] [id number] [address] [place] [address], [place] [id number] Oct, [facility] [address] [id number] [address] [place] [address], [place] [id number] Oct, [facility] [address] [id number] [address] [place] [address], [place] [phone] Sep, [facility] [address] [id number] [address] [place] [address], [place] [id number] Sep, [facility] [address] [id number] [address] [place] [address], [place] [phone] Sep, [facility] [address] [id number] [address] [place] [address], [place] [id number] Sep, [facility] [address] [id number] [address] [place] [address], [place] [id number] Aug, [facility] [address] [id number] [address] [place] [address], [place] [id number] Aug, [facility] [address] [id number] [address] [place] [address], [place] [id number] Aug, [facility] [address] [id number] [address] [place] [address], [place] [id number] Aug, [facility] [address] [id number] [address] [place] [address], [place] [id number] Jul, [facility] [address] [id number] [address] [place] [address], [place] [id number] Jul, [facility] [address] [id number] [address] [place] [address] [address] Jul, [facility] [address] [id number] [address] [place] [address], [place] [id number] Jul, [facility] [address] [id number] [address] [place] [address], [place] [id number] Jul, [facility] [address] [id number] [address] [place] [address], [place] [id number] Jul, [facility] [address] [id number] [address] [place] [address], [place] [id number] Jul, [facility] [address] [id number] [address] [place] [address], [place] [id number] Jul, [facility] [address] [id number] [address] [place] [address], [place] [id number] Jul, [facility] [address] [id number] [address] [place] [address], [place] [id number] Jul, [facility] [address] [id number] [address] [place] [address], [place] [id number] Jul, [facility] [address] [id number] [address] [place] [address], [place] [id number] Jul, [facility] [address] [id number] [address] [place] [address], [place] [address] Jun, [facility] [address] [id number] [address] [place] [phone] Jun, [facility] [address] [id number] [address] [place] [phone] Jun, [facility] [address] [id number] [address] [place] [address], [place] [address] Jun, [facility] [address] [id number] [address] [place] [phone] 16 Jun, 2013 [facility] [address] [id number] [address] [place] [id number] 14 Jun, 2013 [facility] [address] [id number] [address] [place] [address], [place] [id number] 14 Jun, 2013 [facility] [address] [id number] [address] [place] [address], [place] [id number] 02 Jun, 2013 [facility] [address] [id number] [address] [place] [address], [place] [address] 15 May, 2013 [facility] [address] [id number] [address] [place] [address], [place] [id number] 05 May, 2013 [facility] [address] [id number] [address] [place] [address], [place] [id number] May, [facility] [address] [id number] [address] [place] [address], [place] [address] Apr, [facility] [address] [id number] [address] [place] [address], [place] [address] Apr, [facility] [address] [id number] [address] [place] [address], [place] [id number] Mar, [facility] [address] [id number] [address] [place] [address], [place] [phone] Mar, [facility] [address] [id number] [address] [place] [address], [place] [phone] Feb, [facility] [address] [id number] [address] [place] [address], [place] [phone] January, [facility] [address] [id number] [address] [place] [address], [place] [id number] January, [facility] [address] [id number] [address] [place] [address], [place] [id number] January, [facility] [address] [id number] [address] [place] [address], [place] [address] January, [facility] [address] [id number] [address] [place] [address], [place] [address] January, [facility] [address] [id number] [address] [place] [address], [place] [id number] Dec, [facility] [address] [id number] [address] [place] [address], [place] [id number] 17 Dec, 2012 [facility] [address] [id number] [address] [place] [address], [place] [phone] 02 Dec, 2012 [facility] [address] [id number] [address] [place] [address], [place] [address] Nov, [facility] [address] [id number] [address] [place] [address], [place] [id number] 27 Oct, 2012 [facility] [address] [id number] [address] [place] [address], [place] [phone] 18 Oct, 2012 [facility] [address] [id number] [address] [place] [address], [place] [id number] 15 Oct, 2012 [facility] [address] [id number] [address] [place] [address], [place] [id number] Sep, [facility] [address] [id number] [address] [place] [address], [place] [id number] 16 Sep, 2012 [facility] [address] [id number] [address] [place] [address], [place] [phone] 14 Aug, 2012 [facility] [address] [id number] [address] [place] [address], [place] [address] 14 Aug, 2012 [facility] [address] [id number] [address] [place] [address], [place] [address] Aug, [facility] [address] [id number] [address] [place] [address], [place] [id number] Aug, [facility] [address] [id number] [address] [place] [address], [place] [phone] Jul, [facility] [address] [id number] [address] [place] [address], [place] [id number] Jul, [facility] [address] [id number] [address] [place] [address], [place] [phone] Jul, [facility] [address] [id number] [address] [place] [address], [place] [address] Jul, [facility] [address] [id number] [address] [place] [address], [place] [phone] Jul, [facility] [address] [id number] [address] [place] [address], [place] [address] 15 Jun, 2012 [facility] [address] [id number] [address] [place] [address], [place] [id number] 15 Jun, 2012 [facility] [address] [id number] [address] [place] [address], [place] [address] 10 Jun, 2012 [facility] [address] [id number] [address] [place] [address], [place] [address] Jun, [facility] [address] [id number] [address] [place] [address], [place] [address] May, [facility] [address] [id number] [address] [place] [address], [place] [address] Apr, [facility] [address] [id number] [address] [place] [address], [place] [address] Apr, [facility] [address] [id number] [address] [place] [address], [place] [id number] Apr, [facility] [address] [id number] [address] [place] [address], [place] [address] Apr, [facility] [address] [id number] [address] [place] [address], [place] [id number] January, [facility] [address] [id number] [address] [place] [address], [place] [address] January, [facility] [address] [id number] [address] [place] [address], [place] [address] Dec, [facility] [address] [id number] [address] [place] [address], [place] [address] Dec, [facility] [address] [id number] [address] [place] [address], [place] [address] Nov, [facility] [address] [id number] [address] [place] [address], [place] [address] Nov, [facility] [address] [id number] [address] [place] [address], [place] [address] Nov, [facility] [address] [id number] [address] [place] [address], [place] [address] Nov, [facility] [address] [id number] [address] [place] [address], [place] [address] Oct, [facility] [address] [id number] [address] [place] [address], [place] [address] Oct, [facility] [address] [id number] [address] [place] [address], [place] [address] Oct, [facility] [address] [id number] [address] [place] [address], [place] [address] Sep, [facility] [address] [id number] [address] [place] [address], [place] [address] Sep, [facility] [address] [id number] [address] [place] [address], [place] [address] Aug, [facility] [address] [id number] [address] [place] [address], [place] [address] Aug, [facility] [address] [id number] [address] [place] [address], [place] [address] Jul, [facility] [address] [id number] [address] [place] [address], [place] [id number] Jul, [facility] [address] [id number] [address] [place] [address], [place] [address] Jul, [facility] [address] [id number] [address] [place] [address], [place] [address] Jun, [facility] [address] [id number] [address] [place] [address], [place] [address] 24 Jun, 2011 [facility] [address] [id number] [address] [place] [address], [place] [address] 11 Jun, 2011 [facility] [address] [id number] [address] [place] [address], [place] [address] 10 Jun, 2011 [facility] [address] [id number] [address] [place] [address], [place] [address] Jun, [facility] [address] [id number] [address] [place] [address], [place] [address] Jun, [facility] [address] [id number] [address] [place] [address], [place] [address] Aug, [facility] [address] [id number] [address] [place] [address], [place] [address] Aug, [facility] [address] [id number] [address] [place] [address], [place] [address] Aug, [facility] [address] [id number] [address] [place] [address], [place] [address] Jul, [facility] [address] [id number] [address] [place] [address], [place] [id number] Jul, [facility] [address] [id number] [address] [place] [address], [place] [phone] Jul, [facility] [address] [id number] [address] [place] [address], [place] [address] Jul, [facility] [address] [id number] [address] [place] [id number] Jul, [facility] [address] [id number] [address] [place] [phone] Jul, [facility] [address] [id number] [address] [place] [address], [place] [address] Jun, [facility] [address] [id number] [address] [place] [id number] Apr, [facility] [address] [id number] [address] [place] [id number] Feb, [facility] [address] [id number] [address] [place] [id number] 10 Oct, 2009 [facility] [address] [facility] [id number] [address] [place] [id number] Sep, [facility] [address] [facility] [id number] [address] [place] [phone] Aug, [facility] [address] [facility] [id number] [address] [place] [phone] Aug, [facility] [address] [facility] [id number] [address] [place] [phone] Aug, [facility] [address] [facility] [id number] [address] [place] [id number] Jul, [facility] [address] [facility] [id number] [address] [place] [id number] Jun, IMMUNIZATIONS No Known Immunizations SOCIAL HISTORY Never Assessed REASON FOR VISIT Tramadol 11/16 PLAN OF CARE VITAL SIGNS MEDICATIONS Medication [...]
--- OUTSIDE RECORDS SUMMARY | 2020-02-22 17:32 | XMS REPORT ---
Author Author Marion TRUJILLO Organization [facility] Address [address] [place] [address] Care Team Providers Care Machine Stoppage Frequency Checker Name Role Phone ZACKARY TRUJILLO Unavailable PROBLEMS Type Condition ICD9-CM Code [id number] Code Onset Dates Condition S tatus SNOMED Code Problem Dyspepsia R10.13 Active 959032961 Problem History of anemia Z86.2 Active 27 9128503 Problem Cervical disc disease M50.90 Active 306149389 Problem Neck pain M54.2 Active [id number] ALLERGIES No Information ENCOUNTERS Encounter Location Date Diagnosis [facility] [address] [facility] [id number] [address] [place] [address] Mar, [facility] [address] [facility] [id number] [address] [place] [address] Mar, Cervical disc disease M50.90 [facility] [address] [facility] [id number] [address] [place] [address] Feb, Cervical disc disease M50.90 [facility] [address] [facility] [id number] [address] [place] [address] January, Cervical disc disease M50.90 [facility] [address] [facility] [id number] [address] [place] [address] Dec, [facility] [address] [facility] [id number] [address] [place] [address] Dec, Cervical disc disease M50.90 [facility] [address] [facility] [id number] [address] [place] [address] Nov, Cervical disc disease M50.90 [facility] [address] [facility] [id number] [address] [place] [address] Nov, Cervical disc disease M50.90 [facility] [address] [facility] [id number] [address] [place] [address] 15 Oct, 2017 Cervical disc disease M50.90 [facility] [address] [facility] [id number] [address] [place] [address] Oct, Cervical disc disease M50.90 and Acute non-recurrent maxillary sinusitis J01.00 [facility] [address] [facility] [id number] [address] [place] [address] Sep, Cervical disc disease M50.90 [facility] [address] [facility] [id number] [address] [place] [address] Sep, [facility] [address] [place] [id number] [place] [address] Sep, Fatigue, unspecified type R5 3.83 and Cough R05 [place] [address] [place] [id number] [address] [place] [address] Aug, Cervical disc disease M50.90 [facility] [address] [place] [id number] [address] [place] [address] Aug, Sore throat J02.9 ; Canker s ore K12.0 and History of anemia Z86.2 [place] [id number] [facility] [id number] [address] [place] [address] Jul, Cervical disc disease M50.90 [facility] [address] [place] [id number] [address] [place] [address] Jun, Cervical disc disease M50.90 [place] [address] [place] [id number] [address] [place] [address] Jun, Cervical disc disease M50.90 [place] [address] [place] [id number] [address] [place] [address] May, Cervical disc disease M50.90 [facility] [address] [place] [id number] [address] [place] [address] Apr, Cervical disc disease M50.90 [facility] [address] [id number] [address] [place] [address] Apr, [facility] [address] [facility] [id number] [address] [place] [address] Feb, Cervical disc disease M50.90 [facility] [address] [facility] [id number] [address] [place] [address] January, Cervical disc disease M50.90 [facility] [address] [id number] [address] [place] [address] Nov, [facility] [address] [id number] [address] [place] [address] Nov, Cervical disc disease M50.90 [facility] [address] [facility] [id number] [address] [place] [address] Nov, Acute cystitis with hematuri a N30.01 and Dysuria R30.0 [facility] [address] [facility] [id number] [address] [place] [address] Oct, Cervical disc disease M50.90 and Acute non-recurrent frontal sinusitis J01.10 [facility] [address] [facility] [id number] [address] [place] [address] Sep, Neck pain M54.2 [facility] [address] [facility] [id number] [address] [place] [address] Sep, [facility] [address] [facility] [id number] [address] [place] [address] Aug, Cervical disc disease M50.90 [facility] [address] [id number] [address] [place] [address] Jul, [facility] [address] [facility] [id number] [address] [place] [address] Jun, [facility] [address] [facility] [id number] [address] [place] [address] May, [facility] [address] [id number] [address] [place] [address] May, Screening for diabetes blanchei tus Z13.1 ; Chronic fatigue R53.82 and Edema, unspecified type R60.9 [facility] [address] [id number] [address] [place] [address] Apr, Neck pain M54.2 [facility] [address] [id number] [address] [place] [address] Mar, [facility] [address] [id number] [address] [place] [address] Mar, Neck pain M54.2 [facility] [address] [id number] [address] [place] [address] Feb, Cervical disc disease M50.90 [facility] [address] [id number] [address] [place] [address] Feb, Cervical disc disease M50.90 [facility] [address] [id number] [address] [place] [address] January, [facility] [address] [id number] [address] [place] [address] January, [facility] [address] [id number] [address] [place] [address] January, Cervical disc disease M50.90 [facility] [address] [id number] [address] [place] [address] January, [facility] [address] [id number] [address] [place] [address] January, [facility] [address] [id number] [address] [place] [address] Dec, Cervical disc disease M50.90 [facility] [address] [id number] [address] [place] [address] Nov, Cervical disc disease M50.90 [facility] [address] [id number] [address] [place] [address] 08 Oct, 2015 Cervical disc disease M50.90 [facility] [address] [id number] [address] [place] [address] Sep, Cervical disc disease M50.90 [facility] [address] [id number] [address] [place] [id number] 16 Aug, 2015 Dental caries K02.9 and Enco unter for dental examination Z01.20 [facility] [address] [id number] [address] [place] [address] 16 Aug, 2015 [facility] [address] [id number] [address] [place] [address] Aug, [facility] [address] [id number] [address] [place] [id number] Aug, Encounter for dental examina tion Z01.20 [facility] [address] [id number] [address] [place] [address] Jul, [facility] [address] [id number] [address] [place] [address] Jun, Sinusitis J32.9 and Cervical disc disease M50.90 [facility] [address] [id number] [address] [place] [address] Jun, [facility] [address] [id number] [address] [place] [address] 24 May, 2015 [facility] [address] [id number] [address] [place] [address] 23 May, 2015 [facility] [address] [id number] [address] [place] [address] 22 May, 2015 [facility] [address] [id number] [address] [place] [address] May, [facility] [address] [id number] [address] [place] [address] Apr, Cervical spondylosis without myelopathy 721.0 [place] [address] [id number] [address] [place] [address] Mar, [facility] [address] [id number] [address] [place] [address] January, Cervical spondylosis without myelopathy 721.0 [facility] [address] [id number] [address] [place] [address], [place] [address] Dec, [facility] [address] [id number] [address] [place] [address] Dec, [facility] [address] [id number] [address] [place] [address], [place] [address] Dec, [facility] [address] [id number] [address] [place] [address] Nov, [facility] [address] [id number] [address] [place] [address] Nov, [facility] [address] [id number] [address] [place] [address] Oct, [facility] [address] [id number] [address] [place] [address] Oct, [facility] [address] [id number] [address] [place] [address] Oct, [facility] [address] [id number] [address] [place] [address] Oct, [facility] [address] [id number] [address] [place] [address] Oct, [facility] [address] [id number] [address] [place] [address] Oct, [facility] [address] [id number] [address] [place] [address] Oct, [facility] [address] [id number] [address] [place] [address] Oct, [facility] [address] [id number] [address] [place] [address], [place] [address] Oct, [facility] [address] [id number] [address] [place] [address], [place] [address] Oct, [facility] [address] [id number] [address] [place] [address], [place] [address] Sep, [facility] [address] [id number] [address] [place] [address], [place] [address] Sep, [facility] [address] [id number] [address] [place] [address], [place] [address] Sep, [facility] [address] [id number] [address] [place] [address], [place] [address] Sep, [facility] [address] [id number] [address] [place] [address], [place] [address] Sep, [facility] [address] [id number] [address] [place] [address], [place] [address] Sep, [facility] [address] [id number] [address] [place] [address], [place] [address] Sep, [facility] [address] [id number] [address] [place] [address], [place] [address] Sep, [facility] [address] [id number] [address] [place] [address], [place] [address] Sep, [facility] [address] [id number] [address] [place] [address], [place] [address] Aug, [facility] [address] [id number] [address] [place] [address], [place] [address] Aug, [facility] [address] [id number] [address] [place] [address], [place] [address] Aug, [facility] [address] [id number] [address] [place] [address], [place] [address] Aug, [facility] [address] [id number] [address] [place] [address], [place] [address] Jul, [facility] [address] [id number] [address] [place] [address], [place] [address] Jul, [facility] [address] [id number] [address] [place] [address], [place] [address] Jul, [facility] [address] [id number] [address] [place] [address], [place] [address] Jul, [facility] [address] [id number] [address] [place] [address], [place] [address] Jul, [facility] [address] [id number] [address] [place] [address], [place] [address] Jul, [facility] [address] [id number] [address] [place] [address], [place] [address] Jul, [facility] [address] [id number] [address] [place] [address], [place] [address] Jul, [facility] [address] [id number] [address] [place] [address], [place] [address] Jun, [facility] [address] [id number] [address] [place] [address], [place] [address] 27 Jun, 2014 [facility] [address] [id number] [address] [place] [address], [place] [address] Jun, [facility] [address] [id number] [address] [place] [address], [place] [address] 20 Jun, 2014 [facility] [address] [id number] [address] [place] [address] 16 Jun, 2014 [facility] [address] [id number] [address] [place] [address], [place] [address] 15 Jun, 2014 [facility] [address] [id number] [address] [place] [address], [place] [address] 15 Jun, 2014 [facility] [address] [id number] [address] [place] [address], [place] [address] 14 Jun, 2014 [facility] [address] [id number] [address] [place] [address], [place] [address] 14 Jun, 2014 [facility] [address] [id number] [address] [place] [address], [place] [address] Jun, [facility] [address] [id number] [address] [place] [address], [place] [address] Jun, [facility] [address] [id number] [address] [place] [address], [place] [address] May, [facility] [address] [id number] [address] [place] [address], [place] [address] May, [facility] [address] [id number] [address] [place] [address], [place] [address] May, [facility] [address] [id number] [address] [place] [address], [place] [address] May, [facility] [address] [id number] [address] [place] [address], [place] [address] May, [facility] [address] [id number] [address] [place] [address], [place] [address] Apr, [facility] [address] [id number] [address] [place] [address], [place] [address] Apr, [facility] [address] [id number] [address] [place] [address], [place] [address] Apr, [facility] [address] [id number] [address] [place] [address], [place] [address] Apr, [facility] [address] [id number] [address] [place] [address], [place] [address] Apr, [facility] [address] [id number] [address] [place] [address], [place] [address] Apr, [facility] [address] [id number] [address] [place] [address], [place] [address] Mar, [facility] [address] [id number] [address] [place] [address], [place] [address] Mar, [facility] [address] [id number] [address] [place] [address], [place] [address] Mar, [facility] [address] [id number] [address] [place] [address], [place] [address] Mar, [facility] [address] [id number] [address] [place] [address], [place] [address] Mar, [facility] [address] [id number] [address] [place] [address], [place] [address] Mar, [facility] [address] [id number] [address] [place] [address], [place] [address] Feb, [facility] [address] [id number] [address] [place] [address], [place] [address] Feb, [facility] [address] [id number] [address] [place] [address], [place] [address] Feb, [facility] [address] [id number] [address] [place] [address], [place] [address] Feb, [facility] [address] [id number] [address] [place] [address], [place] [address] Feb, [facility] [address] [id number] [address] [place] [address], [place] [address] Feb, [facility] [address] [id number] [address] [place] [address], [place] [address] Feb, [facility] [address] [id number] [address] [place] [address], [place] [address] Feb, [facility] [address] [id number] [address] [place] [address], [place] [address] January, [facility] [address] [id number] [address] [place] [address], [place] [address] January, [facility] [address] [id number] [address] [place] [address], [place] [address] January, [facility] [address] [id number] [address] [place] [address], [place] [address] January, [facility] [address] [id number] [address] [place] [address], [place] [address] January, [facility] [address] [id number] [address] [place] [address], [place] [address] January, [facility] [address] [id number] [address] [place] [address], [place] [address] January, [facility] [address] [id number] [address] [place] [address], [place] [address] January, [facility] [address] [id number] [address] [place] [address], [place] [address] Dec, [facility] [address] [id number] [address] [place] [address], [place] [address] Dec, [facility] [address] [id number] [address] [place] [address], [place] [address] Dec, [facility] [address] [id number] [address] [place] [address], [place] [address] Dec, [facility] [address] [id number] [address] [place] [address], [place] [address] Dec, [facility] [address] [id number] [address] [place] [address], [place] [address] Dec, [facility] [address] [id number] [address] [place] [address], [place] [address] Nov, [facility] [address] [id number] [address] [place] [address], [place] [address] Nov, [facility] [address] [id number] [address] [place] [address], [place] [address] Nov, [facility] [address] [id number] [address] [place] [address], [place] [address] Nov, [facility] [address] [id number] [address] [place] [address], [place] [address] Nov, [facility] [address] [id number] [address] [place] [address], [place] [address] Nov, [facility] [address] [id number] [address] [place] [address], [place] [address] Nov, [facility] [address] [id number] [address] [place] [address], [place] [address] Nov, [facility] [address] [id number] [address] [place] [address], [place] [address] Oct, [facility] [address] [id number] [address] [place] [address], [place] [address] Oct, [facility] [address] [id number] [address] [place] [address], [place] [address] Sep, [facility] [address] [id number] [address] [place] [address], [place] [address] Sep, [facility] [address] [id number] [address] [place] [address], [place] [address] Sep, [facility] [address] [id number] [address] [place] [address], [place] [address] Sep, [facility] [address] [id number] [address] [place] [address], [place] [address] Aug, [facility] [address] [id number] [address] [place] [address], [place] [address] Aug, [facility] [address] [id number] [address] [place] [address], [place] [address] Aug, [facility] [address] [id number] [address] [place] [address], [place] [address] Aug, [facility] [address] [id number] [address] [place] [address], [place] [address] Jul, [facility] [address] [id number] [address] [place] [address], [place] [address] Jul, [facility] [address] [id number] [address] [place] [address] [address] Jul, [facility] [address] [id number] [address] [place] [address], [place] [address] Jul, [facility] [address] [id number] [address] [place] [address], [place] [address] Jul, [facility] [address] [id number] [address] [place] [address], [place] [address] Jul, [facility] [address] [id number] [address] [place] [address], [place] [address] Jul, [facility] [address] [id number] [address] [place] [address], [place] [address] Jul, [facility] [address] [id number] [address] [place] [address], [place] [address] Jul, [facility] [address] [id number] [address] [place] [address], [place] [address] Jul, [facility] [address] [id number] [address] [place] [address], [place] [address] Jul, [facility] [address] [id number] [address] [place] [address], [place] [address] Jul, [facility] [address] [id number] [address] [place] [address], [place] [address] Jun, [facility] [address] [id number] [address] [place] [address] Jun, [facility] [address] [id number] [address] [place] [address] Jun, [facility] [address] [id number] [address] [place] [address], [place] [address] Jun, [facility] [address] [id number] [address] [place] [address] 16 Jun, 2013 [facility] [address] [id number] [address] [place] [address] 14 Jun, 2013 [facility] [address] [id number] [address] [place] [address], [place] [address] 14 Jun, 2013 [facility] [address] [id number] [address] [place] [address], [place] [address] 02 Jun, 2013 [facility] [address] [id number] [address] [place] [address], [place] [address] 15 May, 2013 [facility] [address] [id number] [address] [place] [address], [place] [address] 05 May, 2013 [facility] [address] [id number] [address] [place] [address], [place] [address] May, [facility] [facility] [address] [id number] [address] [place] [address], [place] [address] Apr, [facility] [address] [id number] [address] [place] [address], [place] [address] Apr, [facility] [address] [id number] [address] [place] [address], [place] [address] Mar, [facility] [address] [id number] [address] [place] [address], [place] [address] Mar, [facility] [address] [id number] [address] [place] [address], [place] [address] Feb, [facility] [address] [id number] [address] [place] [address], [place] [address] January, [facility] [address] [id number] [address] [place] [address], [place] [address] January, [facility] [address] [id number] [address] [place] [address], [place] [address] January, [facility] [address] [id number] [address] [place] [address], [place] [address] January, [facility] [address] [id number] [address] [place] [address], [place] [address] January, [facility] [address] [id number] [address] [place] [address], [place] [address] Dec, [facility] [address] [id number] [address] [place] [address], [place] [address] 17 Dec, 2012 [facility] [address] [id number] [address] [place] [address], [place] [address] 02 Dec, 2012 [facility] [address] [id number] [address] [place] [address], [place] [address] Nov, [facility] [address] [id number] [address] [place] [address], [place] [address] 27 Oct, 2012 [facility] [address] [id number] [address] [place] [address], [place] [address] 18 Oct, 2012 [facility] [address] [id number] [address] [place] [address], [place] [address] 15 Oct, 2012 [facility] [address] [id number] [address] [place] [address], [place] [address] Sep, [facility] [address] [id number] [address] [place] [address], [place] [address] 16 Sep, 2012 [facility] [address] [id number] [address] [place] [address], [place] [address] 14 Aug, 2012 [facility] [address] [id number] [address] [place] [address], [place] [address] 14 Aug, 2012 [facility] [address] [id number] [address] [place] [address], [place] [address] Aug, [facility] [address] [id number] [address] [place] [address], [place] [address] Aug, [facility] [address] [id number] [address] [place] [address], [place] [address] Jul, [facility] [address] [id number] [address] [place] [address], [place] [address] Jul, [facility] [address] [id number] [address] [place] [address], [place] [address] Jul, [facility] [address] [id number] [address] [place] [address], [place] [address] Jul, [facility] [address] [id number] [address] [place] [address], [place] [address] Jul, [facility] [address] [id number] [address] [place] [address], [place] [address] 15 Jun, 2012 [facility] [address] [id number] [address] [place] [address], [place] [address] 15 Jun, 2012 [facility] [address] [id number] [address] [place] [address], [place] [address] 10 Jun, 2012 [facility] [address] [id number] [address] [place] [address], [place] [address] Jun, [facility] [address] [id number] [address] [place] [address], [place] [address] May, [facility] [address] [id number] [address] [place] [address], [place] [address] Apr, [facility] [address] [id number] [address] [place] [address], [place] [address] Apr, [facility] [address] [id number] [address] [place] [address], [place] [address] Apr, [facility] [address] [id number] [address] [place] [address], [place] [address] Apr, [facility] [address] [id number] [address] [place] [address], [place] [address] January, [facility] [address] [id number] [address] [place] [address], [place] [address] January, [facility] [address] [id number] [address] [place] [address], [place] [address] Dec, [facility] [address] [id number] [address] [place] [address], [place] [address] Dec, [facility] [address] [id number] [address] [place] [address], [place] [address] Nov, [facility] [address] [id number] [address] [place] [address], [place] [address] Nov, [facility] [address] [id number] [address] [place] [address], [place] [address] Nov, [facility] [address] [id number] [address] [place] [address], [place] [address] Nov, [facility] [address] [id number] [address] [place] [address], [place] [address] Oct, [facility] [address] [id number] [address] [place] [address], [place] [address] Oct, [facility] [address] [id number] [address] [place] [address], [place] [address] Oct, [facility] [address] [id number] [address] [place] [address], [place] [address] Sep, [facility] [address] [id number] [address] [place] [address], [place] [address] Sep, [facility] [address] [id number] [address] [place] [address], [place] [address] Aug, [facility] [address] [id number] [address] [place] [address], [place] [address] Aug, [facility] [address] [id number] [address] [place] [address], [place] [address] Jul, [facility] [address] [id number] [address] [place] [address], [place] [address] Jul, [facility] [address] [id number] [address] [place] [address], [place] [address] Jul, [facility] [address] [id number] [address] [place] [address], [place] [address] Jun, [facility] [address] [id number] [address] [place] [address], [place] [address] 24 Jun, 2011 [facility] [address] [id number] [address] [place] [address], [place] [address] 11 Jun, 2011 [facility] [address] [id number] [address] [place] [address], [place] [address] 10 Jun, 2011 [facility] [address] [id number] [address] [place] [address], [place] [address] Jun, [facility] [address] [id number] [address] [place] [address], [place] [address] Jun, [facility] [address] [id number] [address] [place] [address], [place] [address] Aug, [facility] [address] [id number] [address] [place] [address], [place] [address] Aug, [facility] [address] [id number] [address] [place] [address], [place] [address] Aug, [facility] [address] [id number] [address] [place] [address], [place] [address] Jul, [facility] [address] [id number] [address] [place] [address], [place] [address] Jul, [facility] [address] [id number] [address] [place] [address], [place] [address] Jul, [facility] [address] [id number] [address] [place] [address], [place] [address] Jul, [facility] [address] [id number] [address] [place] [address] Jul, [facility] [address] [id number] [address] [place] [address] Jul, [facility] [address] [id number] [address] [place] [address], [place] [address] Jun, [facility] [address] [id number] [address] [place] [address] Apr, [facility] [address] [id number] [address] [place] [address] Feb, [facility] [address] [id number] [address] [place] [address] 10 Oct, 2009 [facility] [address] [facility] [id number] [address] [place] [address] Sep, [facility] [address] [facility] [id number] [address] [place] [address] Aug, [facility] [address] [facility] [id number] [address] [place] [address] Aug, [facility] [address] [facility] [id number] [address] [place] [address] Aug, [facility] [address] [facility] [id number] [address] [place] [address] Jul, [facility] [address] [facility] [id number] [address] [place] [address] Jun, IMMUNIZATIONS No Known Immunizations SOCIAL HISTORY Never Assessed REASON FOR VISIT Tramadol 10/19 PLAN OF CARE VITAL SIGNS MEDICATIONS Medication Instructions Dosage Frequency Start Date End Date Duration S tatus Valium 5 mg Orally Once a day, prn restlessness 1 tablet Oct, Active Tramadol HCl 50 mg Orally every 6 hrs 2 tablet as needed 6h Oct, Active RESULTS No Results PROCEDURES No [...]
--- OUTSIDE RECORDS SUMMARY | 2020-02-22 17:32 | XMS REPORT ---
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 Name Role Phone ZACKARY TRUJILLO Unavailable PROBLEMS Type Condition ICD9-CM Code [id number] Code Onset Dates Condition S tatus SNOMED Code Problem Dyspepsia R10.13 Active 948812003 Problem History of anemia Z86.2 Active 27 2036604 Problem Cervical disc disease M50.90 Active 945101253 Problem Neck pain M54.2 Active [id number] ALLERGIES No Information ENCOUNTERS Encounter Location Date Diagnosis [facility] [address] [facility] [id number] [address] [place] [phone] Mar, [facility] [address] [facility] [id number] [address] [place] [phone] Mar, Cervical disc disease M50.90 [facility] [address] [facility] [id number] [address] [place] [phone] Feb, Cervical disc disease M50.90 [facility] [address] [facility] [id number] [address] [place] [phone] January, Cervical disc disease M50.90 [facility] [address] [facility] [id number] [address] [place] [phone] Dec, [facility] [address] [facility] [id number] [address] [place] [phone] Dec, Cervical disc disease M50.90 [facility] [address] [facility] [id number] [address] [place] [phone] Nov, Cervical disc disease M50.90 [facility] [address] [facility] [id number] [address] [place] [address] Nov, Cervical disc disease M50.90 [facility] [address] [facility] [id number] [address] [place] [id number] 15 Oct, 2017 Cervical disc disease M50.90 [facility] [address] [facility] [id number] [address] [place] [address] Oct, Cervical disc disease M50.90 and Acute non-recurrent maxillary sinusitis J01.00 [facility] [address] [facility] [id number] [address] [place] [address] Sep, Cervical disc disease M50.90 [facility] [address] [facility] [id number] [address] [place] [phone] Sep, [facility] [address] [place] [id number] [place] [address] Sep, Fatigue, unspecified type R5 3.83 and Cough R05 [place] [address] [place] [id number] [address] [place] [address] Aug, Cervical disc disease M50.90 [facility] [address] [place] [id number] [address] [place] [address] Aug, Sore throat J02.9 ; Canker s ore K12.0 and History of anemia Z86.2 [place] [address] [facility] [id number] [address] [place] [address] Jul, Cervical disc disease M50.90 [facility] [address] [place] [id number] [address] [place] [address] Jun, Cervical disc disease M50.90 [place] [address] [place] [id number] [address] [place] [address] Jun, Cervical disc disease M50.90 [place] [address] [place] [id number] [address] [place] [address] May, Cervical disc disease M50.90 [facility] [address] [place] [id number] [address] [place] [id number] Apr, Cervical disc disease M50.90 [facility] [address] [id number] [address] [place] [address] Apr, [facility] [address] [facility] [id number] [address] [place] [address] Feb, Cervical disc disease M50.90 [facility] [address] [facility] [id number] [address] [place] [address] January, Cervical disc disease M50.90 [facility] [address] [id number] [address] [place] [phone] Nov, [facility] [address] [id number] [address] [place] [address] Nov, Cervical disc disease M50.90 [facility] [address] [facility] [id number] [address] [place] [address] Nov, Acute cystitis with hematuri a N30.01 and Dysuria R30.0 [facility] [address] [facility] [id number] [address] [place] [id number] Oct, Cervical disc disease M50.90 and Acute non-recurrent frontal sinusitis J01.10 [facility] [address] [facility] [id number] [address] [place] [phone] Sep, Neck pain M54.2 [facility] [address] [facility] [id number] [address] [place] [phone] Sep, [facility] [address] [facility] [id number] [address] [place] [address] Aug, Cervical disc disease M50.90 [facility] [address] [id number] [address] [place] [address] Jul, [facility] [address] [facility] [id number] [address] [place] [phone] Jun, [facility] [address] [facility] [id number] [address] [place] [phone] May, [facility] [address] [id number] [address] [place] [address] May, Screening for diabetes blanchei tus Z13.1 ; Chronic fatigue R53.82 and Edema, unspecified type R60.9 [facility] [address] [id number] [address] [place] [phone] Apr, Neck pain M54.2 [facility] [address] [id number] [address] [place] [phone] Mar, [facility] [address] [id number] [address] [place] [phone] Mar, Neck pain M54.2 [facility] [address] [id number] [address] [place] [id number] Feb, Cervical disc disease M50.90 [facility] [address] [id number] [address] [place] [id number] Feb, Cervical disc disease M50.90 [facility] [address] [id number] [address] [place] [phone] January, [facility] [address] [id number] [address] [place] [phone] January, [facility] [address] [id number] [address] [place] [address] January, Cervical disc disease M50.90 [facility] [address] [id number] [address] [place] [phone] January, [facility] [address] [id number] [address] [place] [phone] January, [facility] [address] [id number] [address] [place] [phone] Dec, Cervical disc disease M50.90 [facility] [address] [id number] [address] [place] [phone] Nov, Cervical disc disease M50.90 [facility] [address] [id number] [address] [place] [id number] 08 Oct, 2015 Cervical disc disease M50.90 [facility] [address] [id number] [address] [place] [phone] Sep, Cervical disc disease M50.90 [facility] [address] [id number] [address] [place] [id number] 16 Aug, 2015 Dental caries K02.9 and Enco unter for dental examination Z01.20 [facility] [address] [id number] [address] [place] [id number] 16 Aug, 2015 [facility] [address] [id number] [address] [place] [phone] Aug, [facility] [address] [id number] [address] [place] [id number] Aug, Encounter for dental examina tion Z01.20 [facility] [address] [id number] [address] [place] [phone] Jul, [facility] [address] [id number] [address] [place] [phone] Jun, Sinusitis J32.9 and Cervical disc disease M50.90 [facility] [address] [id number] [address] [place] [id number] Jun, [facility] [address] [id number] [address] [place] [phone] 24 May, 2015 [facility] [address] [id number] [address] [place] [phone] 23 May, 2015 [facility] [address] [id number] [address] [place] [phone] 22 May, 2015 [facility] [address] [id number] [address] [place] [id number] May, [facility] [address] [id number] [address] [place] [phone] Apr, Cervical spondylosis without myelopathy 721.0 [place] [address] [id number] [address] [place] [phone] Mar, [facility] [address] [id number] [address] [place] [phone] January, Cervical spondylosis without myelopathy 721.0 [facility] [address] [id number] [address] [place] [address], [place] [address] Dec, [facility] [address] [id number] [address] [place] [phone] Dec, [facility] [address] [id number] [address] [place] [address], [place] [address] Dec, [facility] [address] [id number] [address] [place] [phone] Nov, [facility] [address] [id number] [address] [place] [phone] Nov, [facility] [address] [id number] [address] [place] [phone] Oct, [facility] [address] [id number] [address] [place] [phone] Oct, [facility] [address] [id number] [address] [place] [id number] Oct, [facility] [address] [id number] [address] [place] [phone] Oct, [facility] [address] [id number] [address] [place] [phone] Oct, [facility] [address] [id number] [address] [place] [phone] Oct, [facility] [address] [id number] [address] [place] [phone] Oct, [facility] [address] [id number] [address] [place] [phone] Oct, [facility] [address] [id number] [address] [place] [address], [place] [address] Oct, [facility] [address] [id number] [address] [place] [address], [place] [address] Oct, [facility] [address] [id number] [address] [place] [address], [place] [address] Sep, [facility] [address] [id number] [address] [place] [address], [place] [address] Sep, [facility] [address] [id number] [address] [place] [address], [place] [address] Sep, [facility] [address] [id number] [address] [place] [address], [place] [address] Sep, [facility] [address] [id number] [address] [place] [address], [place] [address] Sep, [facility] [address] [id number] [address] [place] [address], [place] [address] Sep, [facility] [address] [id number] [address] [place] [address], [place] [address] Sep, [facility] [address] [id number] [address] [place] [address], [place] [address] Sep, [facility] [address] [id number] [address] [place] [address], [place] [address] Sep, [facility] [address] [id number] [address] [place] [address], [place] [address] Aug, [facility] [address] [id number] [address] [place] [address], [place] [address] Aug, [facility] [address] [id number] [address] [place] [address], [place] [address] Aug, [facility] [address] [id number] [address] [place] [address], [place] [address] Aug, [facility] [address] [id number] [address] [place] [address], [place] [address] Jul, [facility] [address] [id number] [address] [place] [address], [place] [address] Jul, [facility] [address] [id number] [address] [place] [address], [place] [address] Jul, [facility] [address] [id number] [address] [place] [address], [place] [address] Jul, [facility] [address] [id number] [address] [place] [address], [place] [address] Jul, [facility] [address] [id number] [address] [place] [address], [place] [address] Jul, [facility] [address] [id number] [address] [place] [address], [place] [address] Jul, [facility] [address] [id number] [address] [place] [address], [place] [address] Jul, [facility] [address] [id number] [address] [place] [address], [place] [address] Jun, [facility] [address] [id number] [address] [place] [address], [place] [address] 27 Jun, 2014 [facility] [address] [id number] [address] [place] [address], [place] [address] Jun, [facility] [address] [id number] [address] [place] [address], [place] [address] 20 Jun, 2014 [facility] [address] [id number] [address] [place] [id number] 16 Jun, 2014 [facility] [address] [id number] [address] [place] [address], [place] [address] 15 Jun, 2014 [facility] [address] [id number] [address] [place] [address], [place] [address] 15 Jun, 2014 [facility] [address] [id number] [address] [place] [address], [place] [address] 14 Jun, 2014 [facility] [address] [id number] [address] [place] [address], [place] [address] 14 Jun, 2014 [facility] [address] [id number] [address] [place] [address], [place] [address] Jun, [facility] [address] [id number] [address] [place] [address], [place] [address] Jun, [facility] [address] [id number] [address] [place] [address], [place] [address] May, [facility] [address] [id number] [address] [place] [address], [place] [address] May, [facility] [address] [id number] [address] [place] [address], [place] [address] May, [facility] [address] [id number] [address] [place] [address], [place] [address] May, [facility] [address] [id number] [address] [place] [address], [place] [address] May, [facility] [address] [id number] [address] [place] [address], [place] [address] Apr, [facility] [address] [id number] [address] [place] [address], [place] [address] Apr, [facility] [address] [id number] [address] [place] [address], [place] [address] Apr, [facility] [address] [id number] [address] [place] [address], [place] [address] Apr, [facility] [address] [id number] [address] [place] [address], [place] [address] Apr, [facility] [address] [id number] [address] [place] [address], [place] [address] Apr, [facility] [address] [id number] [address] [place] [address], [place] [address] Mar, [facility] [address] [id number] [address] [place] [address], [place] [address] Mar, [facility] [address] [id number] [address] [place] [address], [place] [address] Mar, [facility] [address] [id number] [address] [place] [address], [place] [address] Mar, [facility] [address] [id number] [address] [place] [address], [place] [address] Mar, [facility] [address] [id number] [address] [place] [address], [place] [address] Mar, [facility] [address] [id number] [address] [place] [address], [place] [address] Feb, [facility] [address] [id number] [address] [place] [address], [place] [address] Feb, [facility] [address] [id number] [address] [place] [address], [place] [address] Feb, [facility] [address] [id number] [address] [place] [address], [place] [address] Feb, [facility] [address] [id number] [address] [place] [address], [place] [address] Feb, [facility] [address] [id number] [address] [place] [address], [place] [address] Feb, [facility] [address] [id number] [address] [place] [address], [place] [address] Feb, [facility] [address] [id number] [address] [place] [address], [place] [address] Feb, [facility] [address] [id number] [address] [place] [address], [place] [address] January, [facility] [address] [id number] [address] [place] [address], [place] [address] January, [facility] [address] [id number] [address] [place] [address], [place] [address] January, [facility] [address] [id number] [address] [place] [address], [place] [address] January, [facility] [address] [id number] [address] [place] [address], [place] [address] January, [facility] [address] [id number] [address] [place] [address], [place] [address] January, [facility] [address] [id number] [address] [place] [address], [place] [address] January, [facility] [address] [id number] [address] [place] [address], [place] [address] January, [facility] [address] [id number] [address] [place] [address], [place] [address] Dec, [facility] [address] [id number] [address] [place] [address], [place] [address] Dec, [facility] [address] [id number] [address] [place] [address], [place] [address] Dec, [facility] [address] [id number] [address] [place] [address], [place] [address] Dec, [facility] [address] [id number] [address] [place] [address], [place] [address] Dec, [facility] [address] [id number] [address] [place] [address], [place] [address] Dec, [facility] [address] [id number] [address] [place] [address], [place] [address] Nov, [facility] [address] [id number] [address] [place] [address], [place] [address] Nov, [facility] [address] [id number] [address] [place] [address], [place] [address] Nov, [facility] [address] [id number] [address] [place] [address], [place] [address] Nov, [facility] [address] [id number] [address] [place] [address], [place] [address] Nov, [facility] [address] [id number] [address] [place] [address], [place] [address] Nov, [facility] [address] [id number] [address] [place] [address], [place] [address] Nov, [facility] [address] [id number] [address] [place] [address], [place] [address] Nov, [facility] [address] [id number] [address] [place] [address], [place] [address] Oct, [facility] [address] [id number] [address] [place] [address], [place] [address] Oct, [facility] [address] [id number] [address] [place] [address], [place] [address] Sep, [facility] [address] [id number] [address] [place] [address], [place] [address] Sep, [facility] [address] [id number] [address] [place] [address], [place] [address] Sep, [facility] [address] [id number] [address] [place] [address], [place] [address] Sep, [facility] [address] [id number] [address] [place] [address], [place] [address] Aug, [facility] [address] [id number] [address] [place] [address], [place] [address] Aug, [facility] [address] [id number] [address] [place] [address], [place] [address] Aug, [facility] [address] [id number] [address] [place] [address], [place] [address] Aug, [facility] [address] [id number] [address] [place] [address], [place] [address] Jul, [facility] [address] [id number] [address] [place] [address], [place] [address] Jul, [facility] [address] [id number] [address] [place], [place] [address] [address] Jul, [facility] [address] [id number] [address] [place] [address], [place] [address] Jul, [facility] [address] [id number] [address] [place] [address], [place] [address] Jul, [facility] [address] [id number] [address] [place] [address], [place] [address] Jul, [facility] [address] [id number] [address] [place] [address], [place] [address] Jul, [facility] [address] [id number] [address] [place] [address], [place] [address] Jul, [facility] [address] [id number] [address] [place] [address], [place] [address] Jul, [facility] [address] [id number] [address] [place] [address], [place] [address] Jul, [facility] [address] [id number] [address] [place] [address], [place] [address] Jul, [facility] [address] [id number] [address] [place] [address], [place] [address] Jul, [facility] [address] [id number] [address] [place] [address], [place] [address] Jun, [facility] [address] [id number] [address] [place] [address] Jun, [facility] [address] [id number] [address] [place] [address] Jun, [facility] [address] [id number] [address] [place] [address], [place] [address] Jun, [facility] [address] [id number] [address] [place] [id number] 16 Jun, 2013 [facility] [address] [id number] [address] [place] [id number] 14 Jun, 2013 [facility] [address] [id number] [address] [place] [address], [place] [address] 14 Jun, 2013 [facility] [address] [id number] [address] [place] [address], [place] [address] 02 Jun, 2013 [facility] [address] [id number] [address] [place] [address], [place] [address] 15 May, 2013 [facility] [address] [id number] [address] [place] [address], [place] [address] 05 May, 2013 [facility] [address] [id number] [address] [place] [address], [place] [address] May, [facility] [address] [id number] [address] [place] [address], [place] [address] Apr, [facility] [address] [id number] [address] [place] [address], [place] [address] Apr, [facility] [address] [id number] [address] [place] [address], [place] [address] Mar, [facility] [address] [id number] [address] [place] [address], [place] [address] Mar, [facility] [address] [id number] [address] [place] [address], [place] [address] Feb, [facility] [address] [id number] [address] [place] [address], [place] [address] January, [facility] [address] [id number] [address] [place] [address], [place] [address] January, [facility] [address] [id number] [address] [place] [address], [place] [address] January, [facility] [address] [id number] [address] [place] [address], [place] [address] January, [facility] [address] [id number] [address] [place] [address], [place] [address] January, [facility] [address] [id number] [address] [place] [address], [place] [address] Dec, [facility] [address] [id number] [address] [place] [address], [place] [address] 17 Dec, 2012 [facility] [address] [id number] [address] [place] [address], [place] [address] 02 Dec, 2012 [facility] [address] [id number] [address] [place] [address], [place] [address] Nov, [facility] [address] [id number] [address] [place] [address], [place] [address] 27 Oct, 2012 [facility] [address] [id number] [address] [place] [address], [place] [address] 18 Oct, 2012 [facility] [address] [id number] [address] [place] [address], [place] [address] 15 Oct, 2012 [facility] [address] [id number] [address] [place] [address], [place] [address] Sep, [facility] [address] [id number] [address] [place] [address], [place] [address] 16 Sep, 2012 [facility] [address] [id number] [address] [place] [address], [place] [address] 14 Aug, 2012 [facility] [address] [id number] [address] [place] [address], [place] [address] 14 Aug, 2012 [facility] [address] [id number] [address] [place] [address], [place] [address] Aug, [facility] [address] [id number] [address] [place] [address], [place] [address] Aug, [facility] [address] [id number] [address] [place] [address], [place] [address] Jul, [facility] [address] [id number] [address] [place] [address], [place] [address] Jul, [facility] [address] [id number] [address] [place] [address], [place] [address] Jul, [facility] [address] [id number] [address] [place] [address], [place] [address] Jul, [facility] [address] [id number] [address] [place] [address], [place] [address] Jul, [facility] [address] [id number] [address] [place] [address], [place] [address] 15 Jun, 2012 [facility] [address] [id number] [address] [place] [address], [place] [address] 15 Jun, 2012 [facility] [address] [id number] [address] [place] [address], [place] [address] 10 Jun, 2012 [facility] [address] [id number] [address] [place] [address], [place] [address] Jun, [facility] [address] [id number] [address] [place] [address], [place] [address] May, [facility] [address] [id number] [address] [place] [address], [place] [address] Apr, [facility] [address] [id number] [address] [place] [address], [place] [address] Apr, [facility] [address] [id number] [address] [place] [address], [place] [address] Apr, [facility] [address] [id number] [address] [place] [address], [place] [address] Apr, [facility] [address] [id number] [address] [place] [address], [place] [address] January, [facility] [address] [id number] [address] [place] [address], [place] [address] January, [facility] [address] [id number] [address] [place] [address], [place] [address] Dec, [facility] [address] [id number] [address] [place] [address], [place] [address] Dec, [facility] [address] [id number] [address] [place] [address], [place] [address] Nov, [facility] [address] [id number] [address] [place] [address], [place] [address] Nov, [facility] [address] [id number] [address] [place] [address], [place] [address] Nov, [facility] [address] [id number] [address] [place] [address], [place] [address] Nov, [facility] [address] [id number] [address] [place] [address], [place] [address] Oct, [facility] [address] [id number] [address] [place] [address], [place] [address] Oct, [facility] [address] [id number] [address] [place] [address], [place] [address] Oct, [facility] [address] [id number] [address] [place] [address], [place] [address] Sep, [facility] [address] [id number] [address] [place] [address], [place] [address] Sep, [facility] [address] [id number] [address] [place] [address], [place] [address] Aug, [facility] [address] [id number] [address] [place] [address], [place] [address] Aug, [facility] [address] [id number] [address] [place] [address], [place] [address] Jul, [facility] [address] [id number] [address] [place] [address], [place] [address] Jul, [facility] [address] [id number] [address] [place] [address], [place] [address] Jul, [facility] [address] [id number] [address] [place] [address], [place] [address] Jun, [facility] [address] [id number] [address] [place] [address], [place] [address] 24 Jun, 2011 [facility] [address] [id number] [address] [place] [address], [place] [address] 11 Jun, 2011 [facility] [address] [id number] [address] [place] [address], [place] [address] 10 Jun, 2011 [facility] [address] [id number] [address] [place] [address], [place] [address] Jun, [facility] [address] [id number] [address] [place] [address], [place] [address] Jun, [facility] [address] [id number] [address] [place] [address], [place] [address] Aug, [facility] [address] [id number] [address] [place] [address], [place] [address] Aug, [facility] [address] [id number] [address] [place] [address], [place] [address] Aug, [facility] [address] [id number] [address] [place] [address], [place] [address] Jul, [facility] [address] [id number] [address] [place] [address], [place] [address] Jul, [facility] [address] [id number] [address] [place] [address], [place] [address] Jul, [facility] [address] [id number] [address] [place] [address], [place] [address] Jul, [facility] [address] [id number] [address] [place] [id number] Jul, [facility] [address] [id number] [address] [place] [id number] Jul, [facility] [address] [id number] [address] [place] [address], [place] [address] Jun, [facility] [address] [id number] [address] [place] [id number] Apr, [facility] [address] [id number] [address] [place] [phone] Feb, [facility] [address] [id number] [address] [place] [id number] 10 Oct, 2009 [facility] [address] [facility] [id number] [address] [place] [id number] Sep, [facility] [address] [facility] [id number] [address] [place] [id number] Aug, [facility] [address] [facility] [id number] [address] [place] [address] Aug, [facility] [address] [facility] [id number] [address] [place] [phone] Aug, [facility] [address] [facility] [id number] [address] [place] [id number] Jul, [facility] [address] [facility] [id number] [address] [place] [id number] Jun, IMMUNIZATIONS No Known Immunizations SOCIAL HISTORY Never Assessed REASON FOR VISIT PLAN OF CARE VITAL SIGNS MEDICATIONS Medication [...]
--- OUTSIDE RECORDS SUMMARY | 2020-02-22 17:33 | XMS REPORT ---
Author Author Marion TRUJILLO Organization [facility] [place] Address [address] [place] [address] Care Team Providers Care Card Room Manager Name Role Phone ZACKARY TRUJILLO Unavailable PROBLEMS Type Condition ICD9-CM Code FNQ51-SG Code Onset Dates Condition S tatus SNOMED Code Problem Dyspepsia R10.13 Active 355536489 Problem History of anemia Z86.2 Active 27 [id number] Problem Cervical disc disease M50.90 Active 269048440 Problem Neck pain M54.2 Active [id number] ALLERGIES No Information ENCOUNTERS Encounter Location Date Diagnosis [facility] [place] [address] [facility] [id number] [address] [place] [address] Feb, [facility] [place] [address] [id number] [address] [place] [address] Feb, Cervical disc disease M50.90 [facility] [place] [address] [facility] [id number] [address] [place] [address] January, Cervical disc disease M50.90 [facility] [place] [address] [facility] [id number] [address] [place] [address] Dec, [facility] [place] [address] [facility] [id number] [address] [place] [address] Dec, Cervical disc disease M50.90 [facility] [place] [address] [facility] [id number] [address] [place] [address] Nov, Cervical disc disease M50.90 [facility] [place] [address] [facility] [id number] [address] [place] [address] Nov, Cervical disc disease M50.90 [facility] [place] [address] [facility] [id number] [address] [place] [address] Oct, Cervical disc disease M50.90 [facility] [place] [address] [facility] [id number] [address] [place] [address] Oct, Cervical disc disease M50.90 and Acute non-recurrent maxillary sinusitis J01.00 [facility] [place] [address] [facility] [id number] [address] [place] [address] Sep, Cervical disc disease M50.90 [facility] [address] [place] [id number] [address] [place] [address] Sep, [facility] [address] [facility] [id number] [address] [place] [address] Sep, Fatigue, unspecified type R5 3.83 and Cough R05 [facility] [place] [address] [facility] [id number] [address] [place] [address] Aug, Cervical disc disease M50.90 [facility] [address] [place] [id number] [address] [place] [address] Aug, Sore throat J02.9 ; Canker s ore K12.0 and History of anemia Z86.2 [place] [id number] [place] [id number] [address] [place] [address] Jul, Cervical disc disease M50.90 [facility] [place] [address] [facility] [id number] [address] [place] [address] Jun, Cervical disc disease M50.90 [facility] [place] [address] [place] [id number] [address] [place] [address] Jun, Cervical disc disease M50.90 [facility] [place] [address] [facility] [id number] [address] [place] [address] May, Cervical disc disease M50.90 [facility] [place] [address] [facility] [id number] [address] [place] [address] Apr, Cervical disc disease M50.90 [facility] [place] [address] [place] [id number] [address] [place] [address] Apr, [place] [address] [id number] [address] [place] [address] Feb, Cervical disc disease M50.90 [facility] [place] [address] [id number] [address] [place] [address] January, Cervical disc disease M50.90 [facility] [place] [address] [facility] [id number] [address] [place] [address] Nov, [facility] [place] [address] [facility] [id number] [address] [place] [address] Nov, Cervical disc disease M50.90 [facility] [address] [id number] [address] [place] [address] Nov, Acute cystitis with hematuri a N30.01 and Dysuria R30.0 [facility] [place] [address] [facility] [id number] [address] [place] [address] Oct, Cervical disc disease M50.90 and Acute non-recurrent frontal sinusitis J01.10 [facility] [place] [address] [facility] [id number] [address] [place] [address] Sep, Neck pain M54.2 [facility] [place] [address] [facility] [id number] [address] [place] [address] Sep, [facility] [place] [address] [facility] [id number] [address] [place] [address] Aug, Cervical disc disease M50.90 [facility] [place] [address] [facility] [id number] [address] [place] [address] Jul, [facility] [place] [address] [facility] [id number] [address] [place] [address] Jun, [facility] [place] [address] [facility] [id number] [address] [place] [address] May, [facility] [place] [address] [facility] [id number] [address] [place] [address] 08 May, 2016 Screening for diabetes melli tus Z13.1 ; Chronic fatigue R53.82 and Edema, unspecified type R60.9 [facility] [place] [address] [id number] [address] [place] [address] Apr, Neck pain M54.2 [facility] [place] [address] [id number] [address] [place] [address] Mar, [facility] [place] [address] [id number] [address] [place] [address] Mar, Neck pain M54.2 [facility] [place] [address] [id number] [address] [place] [address] Feb, Cervical disc disease M50.90 [facility] [place] [address] [id number] [address] [place] [address] Feb, Cervical disc disease M50.90 [facility] [place] [address] [id number] [address] [place] [address] January, [facility] [place] [address] [id number] [address] [place] [address] January, [facility] [place] [address] [id number] [address] [place] [address] January, Cervical disc disease M50.90 [facility] [place] [address] [id number] [address] [place] [address] January, [facility] [place] [address] [id number] [address] [place] [address] January, [facility] [place] [address] [id number] [address] [place] [address] Dec, Cervical disc disease M50.90 [facility] [place] [address] [id number] [address] [place] [address] Nov, Cervical disc disease M50.90 [facility] [place] [address] [id number] [address] [place] [address] Oct, Cervical disc disease M50.90 [facility] [place] [address] [id number] [address] [place] [address] Sep, Cervical disc disease M50.90 [facility] [address] [id number] [address] [place] [id number] Aug, Dental caries K02.9 and Enco unter for dental examination Z01.20 [facility] [place] [address] [id number] [address] [place] [address] Aug, [facility] [place] [address] [id number] [address] [place] [address] Aug, [facility] [address] [id number] [address] [place] [id number] Aug, Encounter for dental examina tion Z01.20 [facility] [place] [address] [id number] [address] [place] [address] Jul, [facility] [place] [address] [id number] [address] [place] [address] Jun, Sinusitis J32.9 and Cervical disc disease M50.90 [facility] [place] [address] [id number] [address] [place] [address] Jun, [facility] [place] [address] [id number] [address] [place] [address] May, [facility] [place] [address] [id number] [address] [place] [address] May, [facility] [place] [address] [id number] [address] [place] [address] May, [facility] [place] [address] [id number] [address] [place] [address] May, [facility] [place] [address] [id number] [address] [place] [address] Apr, Cervical spondylosis without myelopathy 721.0 [facility] [place] [address] [id number] [address] [place] [address] Mar, [facility] [place] [address] [id number] [address] [place] [address] January, Cervical spondylosis without myelopathy 721.0 [facility] [address] [id number] [address] [place] [address] Dec, [facility] [address] [id number] [address] [place] [address] Dec, [facility] [address] [id number] [address] [place] [address] Dec, [facility] [address] [id number] [address] [place] [address] Nov, [facility] [address] [id number] [address] [place] [address] Nov, [facility] [address] [id number] [address] [place] [address] Oct, [facility] [address] [id number] [address] [place] [address] Oct, [facility] [address] [id number] [address] [place] [address] Oct, [facility] [address] [id number] [address] [place] [address] Oct, [facility] [address] [id number] [address] [place] [address] Oct, [facility] [address] [id number] [address] [place] [address] Oct, [facility] [address] [id number] [address] [place] [address] Oct, [facility] [address] [id number] [address] [place] [address] Oct, [facility] [address] [id number] [address] [place] [address] Oct, [facility] [address] [id number] [address] [place] [address], [place] [address] Oct, [facility] [address] [id number] [address] [place] [address], [place] [address] Sep, [facility] [address] [id number] [address] [place] [address], [place] [address] Sep, [facility] [address] [id number] [address] [place] [address], [place] [address] Sep, [facility] [address] [id number] [address] [place] [address], [place] [address] Sep, [facility] [address] [id number] [address] [place] [address], [place] [address] Sep, [facility] [address] [id number] [address] [place] [address], [place] [address] Sep, [facility] [address] [id number] [address] [place] [address], [place] [address] Sep, [facility] [address] [id number] [address] [place] [address], [place] [address] Sep, [facility] [address] [id number] [address] [place] [address], [place] [address] Sep, [facility] [address] [id number] [address] [place] [address], [place] [address] Aug, [facility] [address] [id number] [address] [place] [address], [place] [address] Aug, [facility] [address] [id number] [address] [place] [address], [place] [address] Aug, [facility] [address] [id number] [address] [place] [address], [place] [address] Aug, [facility] [address] [id number] [address] [place] [address], [place] [address] Jul, [facility] [address] [id number] [address] [place] [address], [place] [address] Jul, [facility] [address] [id number] [address] [place] [address], [place] [address] Jul, [facility] [address] [id number] [address] [place] [address], [place] [address] Jul, [facility] [address] [id number] [address] [place] [address], [place] [address] Jul, [facility] [address] [id number] [address] [place] [address], [place] [address] Jul, [facility] [address] [id number] [address] [place] [address], [place] [address] Jul, [facility] [address] [id number] [address] [place] [address], [place] [address] Jul, [facility] [address] [id number] [address] [place] [address], [place] [address] Jun, [facility] [address] [id number] [address] [place] [address], [place] [address] Jun, [facility] [address] [id number] [address] [place] [address], [place] [address] Jun, [facility] [address] [id number] [address] [place] [address] 20 Jun, 2014 [facility] [address] [id number] [address] [place] [address] 16 Jun, 2014 [facility] [address] [id number] [address] [place] [address] 15 Jun, 2014 [facility] [address] [id number] [address] [place] [address], [place] [address] 15 Jun, 2014 [facility] [address] [id number] [address] [place] [address], [place] [address] 14 Jun, 2014 [facility] [address] [id number] [address] [place] [address] 14 Jun, 2014 [facility] [address] [id number] [address] [place] [address] Jun, [facility] [address] [id number] [address] [place] [address], [place] [address] Jun, [facility] [address] [id number] [address] [place] [address], [place] [address] May, [facility] [address] [id number] [address] [place] [address], [place] [address] May, [facility] [address] [id number] [address] [place] [address], [place] [address] May, [facility] [address] [id number] [address] [place] [address], [place] [address] May, [facility] [address] [id number] [address] [place] [address], [place] [address] May, [facility] [address] [id number] [address] [place] [address], [place] [address] Apr, [facility] [address] [id number] [address] [place] [address], [place] [address] Apr, [facility] [address] [id number] [address] [place] [address], [place] [address] Apr, [facility] [address] [id number] [address] [place] [address], [place] [address] Apr, [facility] [address] [id number] [address] [place] [address], [place] [address] Apr, [facility] [address] [id number] [address] [place] [address], [place] [address] Apr, [facility] [address] [id number] [address] [place] [address], [place] [address] Mar, [facility] [address] [id number] [address] [place] [address], [place] [address] Mar, [facility] [address] [id number] [address] [place] [address], [place] [address] Mar, [facility] [address] [id number] [facility] [place] [address] 15 Mar, 2014 [facility] [address] [id number] [facility] [place] [address] Mar, [facility] [address] [id number] [facility] [place] [address] Mar, [facility] [address] [id number] [address] [place] [address], [place] [address] Feb, [facility] [address] [id number] [address] [place] [address], [place] [address] Feb, [facility] [address] [id number] [address] [place] [address], [place] [address] Feb, [facility] [address] [id number] [address] [place] [address], [place] [address] Feb, [facility] [address] [id number] [address] [place] [address], [place] [address] Feb, [facility] [address] [id number] [address] [place] [address], [place] [address] Feb, [facility] [address] [id number] [address] [place] [address], [place] [address] Feb, [facility] [address] [id number] [address] [place] [address], [place] [address] Feb, [facility] [address] [id number] [address] [place] [address], [place] [address] January, [facility] [address] [id number] [address] [place] [address], [place] [address] January, [facility] [address] [id number] [address] [place] [address], [place] [address] January, [facility] [address] [id number] [address] [place] [address], [place] [address] January, [facility] [address] [id number] [address] [place] [address], [place] [address] January, [facility] [address] [id number] [facility] [place] [address] January, [facility] [address] [id number] [address] [place] [address], [place] [address] January, [facility] [address] [id number] [address] [place] [address], [place] [address] January, [facility] [address] [id number] [address] [place] [address], [place] [address] Dec, [facility] [address] [id number] [address] [place] [address], [place] [address] Dec, [facility] [address] [id number] [address] [place] [address], [place] [address] Dec, [facility] [address] [id number] [address] [place] [address], [place] [address] Dec, [facility] [address] [id number] [address] [place] [address], [place] [address] Dec, [facility] [address] [id number] [address] [place] [address], [place] [address] Dec, [facility] [address] [id number] [address] [place] [address], [place] [address] Nov, [facility] [address] [id number] [address] [place] [address], [place] [address] Nov, [facility] [address] [id number] [address] [place] [address], [place] [address] Nov, [facility] [address] [id number] [address] [place] [address], [place] [address] Nov, [facility] [address] [id number] [address] [place] [address], [place] [address] Nov, [facility] [address] [id number] [address] [place] [address], [place] [address] Nov, [facility] [address] [id number] [address] [place] [address], [place] [address] Nov, [facility] [address] [id number] [address] [place] [address], [place] [address] Nov, [facility] [address] [id number] [address] [place] [address], [place] [address] Oct, [facility] [address] [id number] [address] [place] [address], [place] [address] Oct, [facility] [address] [id number] [address] [place] [address], [place] [address] Sep, [facility] [address] [id number] [address] [place] [address], [place] [address] Sep, [facility] [address] [id number] [address] [place] [address], [place] [address] Sep, [facility] [address] [id number] [address] [place] [address], [place] [address] Sep, [facility] [address] [id number] [address] [place] [address], [place] [address] Aug, [facility] [address] [id number] [address] [place] [address], [place] [address] Aug, [facility] [address] [id number] [address] [place] [address], [place] [address] Aug, [facility] [address] [id number] [address] [place] [address], [place] [address] Aug, [facility] [address] [id number] [address] [place] [address], [place] [address] Jul, [facility] [address] [id number] [address] [place] [address], [place] [address] Jul, [facility] [address] [id number] [address] [place] [address], [place] [address] Jul, [facility] [address] [id number] [address] [place] [address], [place] [address] Jul, [facility] [address] [id number] [address] [place] [address], [place] [address] Jul, [facility] [address] [id number] [address] [place] [address], [place] [address] Jul, [facility] [address] [id number] [address] [place] [address], [place] [address] Jul, [facility] [address] [id number] [address] [place] [address], [place] [address] Jul, [facility] [address] [id number] [address] [place] [address], [place] [address] Jul, [facility] [address] [id number] [address] [place] [address], [place] [address] Jul, [facility] [address] [id number] [address] [place] [address], [place] [address] Jul, [facility] [address] [id number] [address] [place] [address], [place] [address] Jul, [facility] [address] [id number] [address] [place] [address], [place] [address] Jun, [facility] [address] [id number] [address] [place] [address], [place] [address] Jun, [facility] [address] [id number] [address] [place] [address], [place] [address] Jun, [facility] [address] [id number] [address] [place] [address] Jun, [facility] [address] [id number] [address] [place] [address], [place] [address] 16 Jun, 2013 [facility] [address] [id number] [address] [place] [address], [place] [address] Jun, [facility] [address] [id number] [address] [place] [address] Jun, [facility] [address] [id number] [address] [place] [address] Jun, [facility] [address] [id number] [address] [place] [address], [place] [address] May, [facility] [address] [id number] [address] [place] [address], [place] [address] May, [facility] [address] [id number] [address] [place] [address], [place] [address] May, [facility] [address] [id number] [address] [place] [address], [place] [address] Apr, [facility] [address] [id number] [address] [place] [address], [place] [address] Apr, [facility] [address] [id number] [address] [place] [address], [place] [address] Mar, [facility] [address] [id number] [address] [place] [address], [place] [address] Mar, [facility] [address] [id number] [address] [place] [address], [place] [address] Feb, [facility] [address] [id number] [address] [place] [address], [place] [address] January, [facility] [address] [id number] [address] [place] [address], [place] [address] January, [facility] [address] [id number] [address] [place] [address], [place] [address] January, [facility] [address] [id number] [address] [place] [address], [place] [address] January, [facility] [address] [id number] [address] [place] [address], [place] [address] January, [facility] [address] [id number] [address] [place] [address], [place] [address] 29 Dec, 2012 [facility] [address] [id number] [address] [place] [address], [place] [address] Dec, [facility] [address] [id number] [address] [place] [address], [place] [address] 02 Dec, 2012 [facility] [address] [id number] [address] [place] [address], [place] [address] Nov, [facility] [address] [id number] [address] [place] [address], [place] [address] 27 Oct, 2012 [facility] [address] [id number] [address] [place] [address], [place] [address] 18 Oct, 2012 [facility] [address] [id number] [address] [place] [address], [place] [address] 15 Oct, 2012 [facility] [address] [id number] [address] [place] [address], [place] [address] 18 Sep, 2012 [facility] [address] [id number] [address] [place] [address], [place] [address] 16 Sep, 2012 [facility] [address] [id number] [address] [place] [address], [place] [address] 14 Aug, 2012 [facility] [address] [id number] [address] [place] [address], [place] [address] 14 Aug, 2012 [facility] [address] [id number] [address] [place] [address], [place] [address] Aug, [facility] [address] [id number] [address] [place] [address], [place] [address] Aug, [facility] [address] [id number] [address] [place] [address], [place] [address] Jul, [facility] [address] [id number] [address] [place] [address], [place] [address] Jul, [facility] [address] [id number] [address] [place] [address], [place] [address] Jul, [facility] [address] [id number] [address] [place] [address], [place] [address] Jul, [facility] [address] [id number] [address] [place] [address] [address] Jul, [facility] [address] [id number] [address] [place] [address], [place] [address] 15 Jun, 2012 [facility] [address] [id number] [address] [place] [address], [place] [address] 15 Jun, 2012 [facility] [address] [id number] [address] [place] [address], [place] [address] 10 Jun, 2012 [facility] [address] [id number] [address] [place] [address], [place] [address] 10 Jun, 2012 [facility] [address] [id number] [address] [place] [address], [place] [address] May, [facility] [address] [id number] [address] [place] [address], [place] [address] Apr, [facility] [address] [id number] [address] [place] [address], [place] [address] Apr, [facility] [address] [id number] [address] [place] [address], [place] [address] Apr, [facility] [address] [id number] [address] [place] [address], [place] [address] Apr, [facility] [address] [id number] [address] [place] [address], [place] [address] January, [facility] [address] [id number] [address] [place] [address], [place] [address] January, [facility] [address] [id number] [address] [place] [address], [place] [address] Dec, [facility] [address] [id number] [address] [place] [address], [place] [address] Dec, [facility] [address] [id number] [address] [place] [address], [place] [address] Nov, [facility] [address] [id number] [address] [place] [address], [place] [address] Nov, [facility] [address] [id number] [address] [place] [address], [place] [address] Nov, [facility] [address] [id number] [address] [place] [address], [place] [address] Nov, [facility] [address] [id number] [address] [place] [address], [place] [address] Oct, [facility] [address] [id number] [address] [place] [address], [place] [address] Oct, [facility] [address] [id number] [address] [place] [address], [place] [address] Oct, [facility] [address] [id number] [address] [place] [address], [place] [address] Sep, [facility] [address] [id number] [address] [place] [address], [place] [address] Sep, [facility] [address] [id number] [address] [place] [address], [place] [address] Aug, [facility] [address] [id number] [address] [place] [address], [place] [address] Aug, [facility] [address] [id number] [address] [place] [address], [place] [address] Jul, [facility] [address] [id number] [address] [place] [address], [place] [address] Jul, [facility] [address] [id number] [address] [place] [address], [place] [address] Jul, [facility] [address] [id number] [address] [place] [address], [place] [address] Jun, [facility] [address] [id number] [address] [place] [address], [place] [address] 24 Jun, 2011 [facility] [address] [id number] [address] [place] [address], [place] [address] Jun, [facility] [address] [id number] [address] [place] [address], [place] [address] Jun, [facility] [address] [id number] [address] [place] [address], [place] [address] Jun, [facility] [address] [id number] [address] [place] [address], [place] [address] Jun, [facility] [address] [id number] [address] [place] [address], [place] [address] Aug, [facility] [address] [id number] [address] [place] [address], [place] [address] Aug, [facility] [address] [id number] [address] [place] [address], [place] [address] Aug, [facility] [address] [id number] [address] [place] [address], [place] [address] Jul, [facility] [address] [id number] [address] [place] [address], [place] [address] Jul, [facility] [address] [id number] [address] [place] [address], [place] [address] Jul, [facility] [address] [id number] [address] [place] [address], [place] [address] Jul, [facility] [address] [id number] [address] [place] [address] Jul, [facility] [address] [id number] [address] [place] [address] Jul, [facility] [address] [id number] [address] [place] [address] Jun, [facility] [address] [id number] [address] [place] [address], [place] [address] Apr, [facility] [address] [id number] [address] [place] [address] Feb, [facility] [address] [id number] [address] [place] [address] Oct, [facility] [address] [id number] [address] [place] [address] Sep, [facility] [place] [address] [facility] [id number] [address] [place] [address] Aug, [facility] [place] [address] [facility] [id number] [address] [place] [address] Aug, [facility] [place] [address] [facility] [id number] [address] [place] [address] Aug, [facility] [place] [address] [facility] [id number] [address] [place] [address] Jul, [facility] [place] [address] [facility] [id number] [address] [place] [address] Jun, IMMUNIZATIONS No Known Immunizations SOCIAL HISTORY Never Assessed REASON FOR VISIT Controlled Refill Request PLAN OF CARE VITAL SIGNS MEDICATIONS Medication [...]
--- OUTSIDE RECORDS SUMMARY | 2020-02-22 17:33 | XMS REPORT ---
Author Author Marion TRUJILLO Organization [facility] Address [address] [place] [address] Care Team Providers Care Retail Team Leader Name Role Phone ZACKARY TRUJILLO Unavailable PROBLEMS Type Condition ICD9-CM Code [id number] Code Onset Dates Condition S tatus SNOMED Code Problem Dyspepsia R10.13 Active 431414750 Problem History of anemia Z86.2 Active 27 3750738 Problem Cervical disc disease M50.90 Active 000524171 Problem Neck pain M54.2 Active [id number] ALLERGIES No Information ENCOUNTERS Encounter Location Date Diagnosis [facility] [address] [address] Nov, Cervical disc disease M50.90 [facility] [address] [place] [id number] [address] [place] [address] Nov, Cervical disc disease M50.90 [facility] [address] [address] 15 Oct, 2017 Cervical disc disease M50.90 [facility] [address] [id number] [address] [place] [id number] 12 Oct, 2017 Cervical disc disease M50.90 and Acute non-recurrent maxillary sinusitis J01.00 [facility] [address] [id number] [address] [place] [address] Sep, Cervical disc disease M50.90 [facility] [address] [address] Sep, [facility] [address] [id number] [address] [place] [address] Sep, Fatigue, unspecified type R5 3.83 and Cough R05 [facility] [address] [facility] [id number] [address] [place] [address] Aug, Cervical disc disease M50.90 [facility] [address] [facility] [id number] [address] [place] [address] Aug, Sore throat J02.9 ; Canker s ore K12.0 and History of anemia Z86.2 [facility] [address] [facility] [id number] [address] [place] [address] Jul, Cervical disc disease M50.90 [facility] [address] [facility] [id number] [address] [place] [address] Jun, Cervical disc disease M50.90 [facility] [address] [place] [id number] [address] [place] [address] Jun, Cervical disc disease M50.90 [facility] [address] [place] [id number] [address] [place] [address] May, Cervical disc disease M50.90 [facility] [address] [facility] [id number] [address] [place] [address] Apr, Cervical disc disease M50.90 [facility] [address] [facility] [id number] [address] [place] [address] Apr, [facility] [address] [place] [id number] [address] [place] [address] Feb, Cervical disc disease M50.90 [facility] [address] [facility] [id number] [address] [place] [address] January, Cervical disc disease M50.90 [facility] [address] [facility] [id number] [address] [place] [address] Nov, [facility] [address] [facility] [id number] [address] [place] [address] Nov, Cervical disc disease M50.90 [facility] [address] [facility] [id number] [address] [place] [address] 25 Mar, 2017 Acute cystitis with hematuri a N30.01 and Dysuria R30.0 [facility] [address] [id number] [address] [place] [address] Oct, Cervical disc disease M50.90 and Acute non-recurrent frontal sinusitis J01.10 [facility] [address] [id number] [address] [place] [address] Sep, Neck pain M54.2 [facility] [address] [id number] [address] [place] [address] Sep, [facility] [address] [id number] [address] [place] [address] Aug, Cervical disc disease M50.90 [facility] [address] [id number] [address] [place] [address] Jul, [place] [address] [id number] [address] [place] [address] Jun, [facility] [address] [id number] [address] [place] [address] May, [place] [address] [facility] [id number] [address] [place] [address] May, Screening for diabetes emilio tus Z13.1 ; Chronic fatigue R53.82 and Edema, unspecified type R60.9 [place] [id number] [facility] [id number] [address] [place] [address] Apr, Neck pain M54.2 [facility] [address] [id number] [address] [place] [address] Mar, [facility] [address] [facility] [id number] [address] [place] [address] Mar, Neck pain M54.2 [facility] [address] [id number] [address] [place] [id number] Feb, Cervical disc disease M50.90 [facility] [address] [facility] [id number] [address] [place] [address] Feb, Cervical disc disease M50.90 [facility] [address] [id number] [address] [place] [address] January, [facility] [address] [id number] [address] [place] [address] January, [facility] [address] [id number] [address] [place] [address] January, Cervical disc disease M50.90 [facility] [address] [id number] [address] [place] [address] January, [facility] [address] [id number] [address] [place] [address] January, [facility] [address] [id number] [address] [place] [address] Dec, Cervical disc disease M50.90 [facility] [address] [id number] [address] [place] [address] Nov, Cervical disc disease M50.90 [facility] [address] [id number] [address] [place] [address] Oct, Cervical disc disease M50.90 [facility] [address] [id number] [address] [place] [address] Sep, Cervical disc disease M50.90 [facility] [address] [id number] [address] [place] [id number] Aug, Dental caries K02.9 and Enco unter for dental examination Z01.20 [facility] [address] [id number] [address] [place] [address] Aug, [facility] [address] [id number] [address] [place] [id number] 15 Aug, 2015 [facility] [address] [id number] [address] [place] [id number] 08 Aug, 2015 Encounter for dental examina tion Z01.20 [facility] [address] [id number] [address] [place] [address] 16 Jul, 2015 [facility] [address] [id number] [address] [place] [address] Jun, Sinusitis J32.9 and Cervical disc disease M50.90 [facility] [address] [id number] [address] [place] [address] Jun, [facility] [address] [id number] [address] [place] [address] 24 May, 2015 [facility] [address] [id number] [address] [place] [address] May, [facility] [address] [id number] [address] [place] [address] May, [facility] [address] [id number] [address] [place] [address] May, [facility] [address] [id number] [address] [place] [address] Apr, Cervical spondylosis without myelopathy 721.0 [facility] [address] [id number] [address] [place] [id number] Mar, [facility] [address] [id number] [address] [place] [address] January, Cervical spondylosis without myelopathy 721.0 [facility] [address] [id number] [address] [place] [id number] Dec, [facility] [address] [id number] [address] [place] [id number] 14 Dec, 2014 [facility] [address] [id number] [address] [place] [id number] 13 Dec, 2014 [facility] [address] [id number] [address] [place] [address] Nov, [facility] [address] [id number] [address] [place] [address] Nov, [facility] [address] [id number] [address] [place] [address], [place] [address] Oct, [facility] [address] [id number] [address] [place] [address], [place] [address] Oct, 2014 [facility] [address] [id number] [address] [place] [address], [place] [address] Oct, 2014 [facility] [address] [id number] [address] [place] [address], [place] [address] Oct, 2014 [facility] [address] [id number] [address] [place] [address], [place] [address] Oct, 2014 [facility] [address] [id number] [address] [place] [address], [place] [address] Oct, 2014 [facility] [address] [id number] [address] [place] [address], [place] [address] Oct, 2014 [facility] [address] [id number] [address] [place] [address], [place] [address] Oct, [facility] [address] [id number] [address] [place] [address], [place] [address] Oct, [facility] [address] [id number] [address] [place] [address], [place] [address] Oct, [facility] [address] [id number] [address] [place] [address], [place] [address] Sep, [facility] [address] [id number] [address] [place] [address], [place] [address] Sep, [facility] [address] [id number] [address] [place] [address], [place] [address] Sep, [facility] [address] [id number] [address] [place] [address], [place] [address] Sep, [facility] [address] [id number] [address] [place] [address] Sep, [facility] [address] [id number] [address] [place] [address], [place] [address] Sep, [facility] [address] [id number] [address] [place] [address], [place] [address] Sep, [facility] [address] [id number] [address] [place] [address], [place] [address] Sep, [facility] [address] [id number] [address] [place] [address], [place] [address] Sep, [facility] [address] [id number] [address] [place] [address], [place] [address] Aug, [facility] [address] [id number] [address] [place] [address], [place] [address] Aug, [facility] [address] [id number] [address] [place] [address], [place] [address] Aug, [facility] [address] [id number] [address] [place] [address], [place] [address] Aug, [facility] [address] [id number] [address] [place] [address], [place] [address] Jul, [facility] [address] [id number] [address] [place] [address], [place] [address] Jul, [facility] [address] [id number] [address] [place] [address], [place] [address] Jul, [facility] [address] [id number] [address] [place] [address], [place] [address] Jul, [facility] [address] [id number] [address] [place] [address], [place] [address] Jul, [facility] [address] [id number] [address] [place] [address], [place] [address] Jul, [facility] [address] [id number] [address] [place] [address], [place] [address] Jul, [facility] [address] [id number] [address] [place] [address] Jul, [facility] [address] [id number] [address] [place] [address], [place] [address] 27 Jun, 2014 [facility] [address] [id number] [address] [place] [address] 27 Jun, 2014 [facility] [address] [id number] [address] [place] [address], [place] [address] 20 Jun, 2014 [facility] [address] [id number] [address] [place] [address], [place] [address] 20 Jun, 2014 [facility] [address] [id number] [address] [place] [address], [place] [address] 16 Jun, 2014 [facility] [address] [id number] [address] [place] [address], [place] [address] 15 Jun, 2014 [facility] [address] [id number] [address] [place] [address], [place] [address] 15 Jun, 2014 [facility] [address] [id number] [address] [place] [address], [place] [address] 14 Jun, 2014 [facility] [address] [id number] [address] [place] [address], [place] [address] 14 Jun, 2014 [facility] [address] [id number] [address] [place] [address], [place] [address] 11 Jun, 2014 [facility] [address] [id number] [address] [place] [address] 11 Jun, 2014 [facility] [address] [id number] [address] [place] [address] 24 May, 2014 [facility] [address] [id number] [address] [place] [address], [place] [address] 24 May, 2013 [facility] [address] [id number] [address] [place] [address], [place] [address] 08 May, 2014 [facility] [address] [id number] [address] [place] [address], [place] [address] 02 May, 2013 [facility] [address] [id number] [address] [place] [address], [place] [address] May, [facility] [address] [id number] [address] [place] [address], [place] [address] Apr, [facility] [address] [id number] [address] [place] [address], [place] [address] Apr, [facility] [address] [id number] [address] [place] [address], [place] [address] Apr, [facility] [address] [id number] [address] [place] [address], [place] [address] Apr, [facility] [address] [id number] [address] [place] [address], [place] [address] Apr, [facility] [address] [id number] [address] [place] [address], [place] [address] Apr, [facility] [address] [id number] [address] [place] [address], [place] [address] Mar, [facility] [address] [id number] [address] [place] [address], [place] [address] Mar, [facility] [address] [id number] [address] [place] [address], [place] [address] Mar, [facility] [address] [id number] [address] [place] [address], [place] [address] Mar, [facility] [address] [id number] [address] [place] [address], [place] [address] Mar, [facility] [address] [id number] [address] [place] [address], [place] [address] Mar, [facility] [address] [id number] [address] [place] [address], [place] [address] Feb, [facility] [address] [id number] [address] [place] [address], [place] [address] Feb, [facility] [address] [id number] [address] [place] [address], [place] [address] Feb, [facility] [address] [id number] [address] [place] [address], [place] [address] Feb, [facility] [address] [id number] [address] [place] [address], [place] [address] Feb, [facility] [address] [id number] [address] [place] [address], [place] [address] Feb, [facility] [address] [id number] [address] [place] [address], [place] [address] Feb, [facility] [address] [id number] [address] [place] [address], [place] [address] Feb, [facility] [address] [id number] [address] [place] [address], [place] [address] January, [facility] [address] [id number] [address] [place] [address], [place] [address] January, [facility] [address] [id number] [address] [place] [address], [place] [address] January, [facility] [address] [id number] [address] [place] [address], [place] [address] January, [facility] [address] [id number] [address] [place] [address], [place] [address] January, [facility] [address] [id number] [address] [place] [address], [place] [address] January, [facility] [address] [id number] [address] [place] [address], [place] [address] January, [facility] [address] [id number] [address] [place] [address], [place] [address] January, [facility] [address] [id number] [address] [place] [address], [place] [address] Dec, [facility] [address] [id number] [address] [place] [address], [place] [address] Dec, [facility] [address] [id number] [address] [place] [address], [place] [address] Dec, [facility] [address] [id number] [facility] [place] [address] Dec, [facility] [address] [id number] [facility] [place] [address] Dec, [facility] [address] [id number] [address] [place] [address], [place] [address] Dec, [facility] [address] [id number] [address] [place] [address], [place] [address] Nov, [facility] [address] [id number] [address] [place] [address], [place] [address] Nov, [facility] [address] [id number] [address] [place] [address], [place] [address] Nov, [facility] [address] [id number] [address] [place] [address], [place] [address] Nov, [facility] [address] [id number] [address] [place] [address], [place] [address] Nov, [facility] [address] [id number] [address] [place] [address], [place] [address] Nov, [facility] [address] [id number] [address] [place] [address], [place] [address] Nov, [facility] [address] [id number] [address] [place] [address], [place] [address] Nov, [facility] [address] [id number] [address] [place] [address], [place] [address] Oct, [facility] [address] [id number] [address] [place] [address], [place] [address] Oct, [facility] [address] [id number] [address] [place] [address], [place] [address] Sep, [facility] [address] [id number] [address] [place] [address], [place] [address] Sep, [facility] [address] [id number] [address] [place] [address], [place] [address] Sep, [facility] [address] [id number] [address] [place] [address], [place] [address] Sep, [facility] [address] [id number] [address] [place] [address], [place] [address] Aug, [facility] [address] [id number] [address] [place] [address], [place] [id number] Aug, [facility] [address] [id number] [address] [place] [address], [place] [address] Aug, [facility] [address] [id number] [address] [place] [address], [place] [address] Aug, [facility] [address] [id number] [address] [place] [address], [place] [address] Jul, [facility] [address] [id number] [address] [place] [address], [place] [address] Jul, [facility] [address] [id number] [address] [place] [address], [place] [address] Jul, [facility] [address] [id number] [address] [place] [address], [place] [address] Jul, [facility] [address] [id number] [address] [place] [address], [place] [address] Jul, [facility] [address] [id number] [address] [place] [address], [place] [address] Jul, [facility] [address] [id number] [address] [place] [address], [place] [address] Jul, [facility] [address] [id number] [address] [place] [address], [place] [address] Jul, [facility] [address] [id number] [address] [place] [address], [place] [address] Jul, [facility] [address] [id number] [address] [place] [address], [place] [id number] Jul, [facility] [address] [id number] [address] [place] [address], [place] [address] Jul, [facility] [address] [id number] [address] [place] [address], [place] [address] Jul, [facility] [address] [id number] [address] [place] [address], [place] [address] Jun, [facility] [address] [id number] [address] [place] [address], [place] [address] Jun, [facility] [address] [id number] [address] [place] [address], [place] [address] Jun, [facility] [address] [id number] [address] [place] [address], [place] [address] Jun, [facility] [address] [id number] [address] [place] [address], [place] [address] Jun, [facility] [address] [id number] [address] [place] [address], [place] [address] Jun, [facility] [address] [id number] [address] [place] [address], [place] [address] Jun, [facility] [address] [id number] [address] [place] [address], [place] [address] Jun, [facility] [address] [id number] [address] [place] [id number] 15 May, 2013 [facility] [address] [id number] [address] [place] [id number] 05 May, 2013 [facility] [address] [id number] [address] [place] [address], [place] [address] May, [facility] [address] [id number] [address] [place] [id number] Apr, [facility] [address] [id number] [address] [place] [address], [place] [address] Apr, [facility] [address] [id number] [address] [place] [address], [place] [address] Mar, [facility] [address] [id number] [address] [place] [address], [place] [address] Mar, [facility] [address] [id number] [address] [place] [address], [place] [address] Feb, [facility] [address] [id number] [address] [place] [address], [place] [address] January, [facility] [address] [id number] [address] [place] [address], [place] [address] January, [facility] [address] [id number] [address] [place] [address], [place] [address] January, [facility] [address] [id number] [address] [place] [address], [place] [address] January, [facility] [address] [id number] [address] [place] [address], [place] [address] January, [facility] [address] [id number] [address] [place] [address], [place] [address] Dec, [facility] [address] [id number] [address] [place] [address], [place] [address] Dec, [facility] [address] [id number] [address] [place] [address], [place] [address] Dec, [facility] [address] [id number] [address] [place] [address], [place] [address] Nov, [facility] [address] [id number] [address] [place] [address], [place] [address] Oct, [facility] [address] [id number] [address] [place] [address], [place] [address] Oct, [facility] [address] [id number] [address] [place] [address], [place] [address] Oct, [facility] [address] [id number] [address] [place] [address], [place] [address] 18 Sep, 2012 [facility] [address] [id number] [address] [place] [address], [place] [address] 16 Sep, 2012 [facility] [address] [id number] [address] [place] [address], [place] [address] 14 Aug, 2012 [facility] [address] [id number] [address] [place] [address], [place] [address] 14 Aug, 2012 [facility] [address] [id number] [address] [place] [address], [place] [address] 11 Aug, 2012 [facility] [address] [id number] [address] [place] [address], [place] [address] Aug, [facility] [address] [id number] [address] [place] [address], [place] [address] Jul, [facility] [address] [id number] [address] [place] [address], [place] [address] Jul, [facility] [address] [id number] [address] [place] [address], [place] [address] Jul, [facility] [address] [id number] [address] [place] [address], [place] [id number] Jul, [facility] [address] [id number] [address] [place] [address], [place] [address] Jul, [facility] [address] [id number] [address] [place] [address], [place] [address] 15 Jun, 2012 [facility] [address] [id number] [address] [place] [id number] 15 Jun, 2012 [facility] [address] [id number] [address] [place] [address], [place] [address] 10 Jun, 2012 [facility] [address] [id number] [address] [place] [address], [place] [address] 10 Jun, 2012 [facility] [address] [id number] [address] [place] [address], [place] [address] 10 May, 2012 [facility] [address] [id number] [address] [place] [address], [place] [address] Apr, [facility] [address] [id number] [address] [place] [address], [place] [address] Apr, [facility] [address] [id number] [address] [place] [address], [place] [address] Apr, [facility] [address] [id number] [address] [place] [address], [place] [id number] Apr, [facility] [address] [id number] [address] [place] [address], [place] [address] January, [facility] [address] [id number] [address] [place] [address], [place] [address] January, [facility] [address] [id number] [address] [place] [address], [place] [address] Dec, [facility] [address] [id number] [address] [place] [address], [place] [address] Dec, [facility] [address] [id number] [address] [place] [address], [place] [address] Nov, [facility] [address] [id number] [address] [place] [address], [place] [address] Nov, [facility] [address] [id number] [address] [place] [address], [place] [address] Nov, [facility] [address] [id number] [address] [place] [address], [place] [address] Nov, [facility] [address] [id number] [address] [place] [address], [place] [address] Oct, [facility] [address] [id number] [address] [place] [address], [place] [address] Oct, [facility] [address] [id number] [address] [place] [address], [place] [address] Oct, [facility] [address] [id number] [address] [place] [address], [place] [address] Sep, [facility] [address] [id number] [address] [place] [address], [place] [address] Sep, [facility] [address] [id number] [address] [place] [address], [place] [address] Aug, [facility] [address] [id number] [address] [place] [address], [place] [address] Aug, [facility] [address] [id number] [address] [place] [address], [place] [address] Jul, [facility] [address] [id number] [address] [place] [address], [place] [address] Jul, [facility] [address] [id number] [address] [place] [address], [place] [address] Jul, [facility] [address] [id number] [address] [place] [address], [place] [address] Jun, [facility] [address] [id number] [address] [place] [address], [place] [address] Jun, [facility] [address] [id number] [address] [place] [address], [place] [address] Jun, [facility] [address] [id number] [address] [place] [address], [place] [address] Jun, [facility] [address] [id number] [address] [place] [address], [place] [address] Jun, [facility] [address] [id number] [address] [place] [id number] Jun, [facility] [address] [id number] [address] [place] [address], [place] [address] Aug, [facility] [address] [id number] [address] [place] [address], [place] [address] Aug, [facility] [address] [id number] [address] [place] [address], [place] [address] Aug, [facility] [address] [id number] [address] [place] [address] 29 Jul, 2010 [facility] [address] [id number] [address] [place] [address] Jul, [facility] [address] [id number] [address] [place] [id number] Jul, [facility] [address] [id number] [address] [place] [id number] Jul, [facility] [address] [id number] [address] [place] [id number] 15 Jul, 2010 [facility] [address] [id number] [address] [place] [address] Jul, [facility] [address] [id number] [address] [place] [address] Jun, [facility] [address] [id number] [address] [place] [id number] Apr, [facility] [address] [id number] [address] [place] [address] Feb, [facility] [address] [id number] [address] [place] [address] 10 Oct, 2009 [facility] [address] [id number] [address] [place] [address] Sep, [facility] [address] [id number] [address] [place] [address] Aug, [facility] [address] [id number] [address] [place] [id number] Aug, [facility] [address] [id number] [address] [place] [address] Aug, [facility] [address] [id number] [address] [place] [id number] Jul, [facility] [address] [id number] [address] [place] [id number] Jun, IMMUNIZATIONS No Known Immunizations SOCIAL HISTORY Never Assessed REASON FOR VISIT Requests return call PLAN OF CARE VITAL SIGNS MEDICATIONS Medication Instructions Dosage Frequency Start Date End Date Duration S stephanieus Amoxicillin 500 mg Orally 3 times a day 1 tablet 8h Apr, 10 day(s) Active RESULTS No Results PROCEDURES No Known [...]
--- OUTSIDE RECORDS SUMMARY | 2020-02-22 17:33 | XMS REPORT ---
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 Name Role Phone ZACKARY TRUJILLO Unavailable Allergies No Known Allergies Problems Problem Type Condition Code Onset Dates Condition Statu s Problem Abdominal pain, left upper quadrant 789.02 Active Problem Cervical spondylosis without myelopathy 721.0 Active Problem Abdominal pain, other specified site 789.09 Active Problem Acute sinusitis, unspecified 461.9 Active Problem Palpitations 785.1 Active Problem Neck pain M54.2 Active Problem Unspecified iron deficiency anemia 280.9 Active Problem Unspecified peripheral vertigo 386.10 Active Problem Altered mental status 780.97 Active Problem Unspecified sleep apnea 780.57 Acti ve Problem Thoracic or lumbosacral neuritis or radiculitis, unspe cified 724.4 Active Problem Acute nasopharyngitis (common cold) 460 Active Problem Excessive or frequent menstruation 626.2 Active Problem Chronic gastric ulcer withou t mention of hemorrhage, perforation, without mention of obstruction 531.70 Active Problem Unspecified Eustachian tube disorder 381.9 Active Problem Dysuria 788.1 Active Problem Acute upper respiratory infections of unspecified site 465.9 Active Problem Urinary frequency 788.41 Active Medications Medication Code System Code Instructions Start Date End Date Status Dosage tramadol NDC 0 50 mg Oral every 6 hours November 12, 2014 2 tablets Results No Known Results Summary Purpose eClinicalWorks Submission
--- OUTSIDE RECORDS SUMMARY | 2020-02-22 17:33 | XMS REPORT ---
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 Role Phone RAYRAY BENITEZ Unavailable PROBLEMS Type Condition ICD9-CM Code VCY06-SA Code Onset Dates Condition S tatus SNOMED Code Problem Dyspepsia R10.13 Active 943484014 Problem History of anemia Z86.2 Active 27 8424016 Problem Cervical disc disease M50.90 Active 850642013 Problem Neck pain M54.2 Active [id number] ALLERGIES No Information ENCOUNTERS Encounter Location Date Diagnosis [place] [id number] [facility] [id number] [address] [place] [address] Feb, Cervical disc disease M50.90 [facility] [address] [id number] [address] [place] [address] January, Cervical disc disease M50.90 [facility] [address] [facility] [id number] [address] [place] [address] Dec, [facility] [address] [facility] [id number] [address] [place] [address] Dec, Cervical disc disease M50.90 [facility] [address] [facility] [id number] [address] [place] [address] Nov, Cervical disc disease M50.90 [facility] [address] [facility] [id number] [address] [place] [address] Nov, Cervical disc disease M50.90 [facility] [address] [facility] [id number] [address] [place] [address] Oct, Cervical disc disease M50.90 [facility] [address] [facility] [id number] [address] [place] [address] Oct, Cervical disc disease M50.90 and Acute non-recurrent maxillary sinusitis J01.00 [facility] [address] [facility] [id number] [address] [place] [address] Sep, Cervical disc disease M50.90 [facility] [address] [facility] [id number] [address] [place] [address] Sep, [facility] [address] [facility] [id number] [address] [place] [address] Sep, Fatigue, unspecified type R5 3.83 and Cough R05 [place] [address] [facility] [id number] [address] [place] [address] Aug, Cervical disc disease M50.90 [facility] [address] [facility] [id number] [address] [place] [address] Aug, Sore throat J02.9 ; Canker s ore K12.0 and History of anemia Z86.2 [facility] [address] [facility] [id number] [address] [place] [address] Jul, Cervical disc disease M50.90 [place] [address] [place] [id number] [address] [place] [address] Jun, Cervical disc disease M50.90 [place] [address] [facility] [id number] [address] [place] [address] Jun, Cervical disc disease M50.90 [facility] [address] [facility] [id number] [address] [place] [address] May, Cervical disc disease M50.90 [facility] [address] [facility] [id number] [address] [place] [address] Apr, Cervical disc disease M50.90 [facility] [address] [facility] [id number] [address] [place] [address] Apr, [facility] [address] [facility] [id number] [address] [place] [address] Feb, Cervical disc disease M50.90 [facility] [address] [facility] [id number] [address] [place] [address] January, Cervical disc disease M50.90 [facility] [address] [facility] [id number] [address] [place] [address] Nov, [facility] [address] [facility] [id number] [address] [place] [address] Nov, Cervical disc disease M50.90 [facility] [address] [facility] [id number] [address] [place] [address] Nov, Acute cystitis with hematuri a N30.01 and Dysuria R30.0 [facility] [address] [facility] [id number] [address] [place] [address] Oct, Cervical disc disease M50.90 and Acute non-recurrent frontal sinusitis J01.10 [facility] [address] [place] [id number] [address] [place] [address] Sep, Neck pain M54.2 [place] [address] [place] [id number] [address] [place] [address] Sep, [facility] [address] [place] [id number] [place] [address] Aug, Cervical disc disease M50.90 [facility] [address] [facility] [id number] [address] [place] [address] Jul, [facility] [address] [place] [id number] [address] [place] [address] Jun, [facility] [address] [place] [id number] [address] [place] [address] May, [place] [address] [place] [id number] [place] [address] 08 May, 2016 Screening for diabetes melli tus Z13.1 ; Chronic fatigue R53.82 and Edema, unspecified type R60.9 [place] [address] [place] [id number] [address] [place] [address] Apr, Neck pain M54.2 [facility] [address] [id number] [address] [place] [address] Mar, [facility] [address] [id number] [address] [place] [address] Mar, Neck pain M54.2 [facility] [address] [id number] [address] [place] [address] Feb, Cervical disc disease M50.90 [facility] [address] [id number] [address] [place] [address] Feb, Cervical disc disease M50.90 [facility] [address] [id number] [address] [place] [address] January, [facility] [address] [id number] [address] [place] [address] January, [facility] [address] [id number] [address] [place] [address] January, Cervical disc disease M50.90 [facility] [address] [id number] [address] [place] [address] January, [facility] [address] [id number] [address] [place] [address] January, [facility] [address] [id number] [address] [place] [address] Dec, Cervical disc disease M50.90 [facility] [address] [id number] [address] [place] [address] Nov, Cervical disc disease M50.90 [facility] [address] [id number] [address] [place] [address] Oct, Cervical disc disease M50.90 [facility] [address] [id number] [address] [place] [address] Sep, Cervical disc disease M50.90 [facility] [address] [id number] [address] [place] [address] [id number] 16 Aug, 2015 Dental caries K02.9 and Enco unter for dental examination Z01.20 [facility] [address] [id number] [address] [place] [address] Aug, [facility] [address] [id number] [address] [place] [address] Aug, [facility] [address] [id number] [address] [place] [address] [id number] Aug, Encounter for dental examina tion Z01.20 [facility] [address] [id number] [address] [place] [address] Jul, [facility] [address] [id number] [address] [place] [address] Jun, Sinusitis J32.9 and Cervical disc disease M50.90 [facility] [address] [id number] [address] [place] [address] Jun, [facility] [address] [id number] [address] [place] [address] 24 May, 2015 [facility] [address] [id number] [address] [place] [address] May, [facility] [address] [id number] [address] [place] [address] May, [facility] [address] [id number] [address] [place] [address] May, [facility] [address] [id number] [address] [place] [address] Apr, Cervical spondylosis without myelopathy 721.0 [facility] [address] [id number] [address] [place] [address] Mar, [facility] [address] [id number] [address] [place] [address] January, Cervical spondylosis without myelopathy 721.0 [facility] [address] [id number] [address] [place] [address], [place] [address] 28 Dec, 2014 [facility] [address] [id number] [address] [place] [address], [place] [address] 14 Dec, 2014 [facility] [address] [id number] [address] [place] [address], [place] [address] Dec, [facility] [address] [id number] [address] [place] [address], [place] [address] Nov, [facility] [address] [id number] [address] [place] [address], [place] [address] Nov, [facility] [address] [id number] [address] [place] [address], [place] [address] Oct, [facility] [address] [id number] [address] [place] [address], [place] [address] Oct, [facility] [address] [id number] [address] [place] [address] Oct, [facility] [address] [id number] [address] [place] [address], [place] [address] Oct, [facility] [address] [id number] [address] [place] [address] Oct, [facility] [address] [id number] [address] [place] [address] Oct, 2014 [facility] [address] [id number] [address] [place] [address] Oct, 2014 [facility] [address] [id number] [address] [place] [address] Oct, 2014 [facility] [address] [id number] [address] [place] [address] Oct, [facility] [address] [id number] [address] [place] [address] Oct, 2014 [facility] [address] [id number] [address] [place] [address], [place] [address] Sep, [facility] [address] [id number] [address] [place] [address], [place] [address] Sep, [facility] [address] [id number] [address] [place] [address], [place] [address] Sep, [facility] [address] [id number] [address] [place] [address], [place] [address] Sep, [facility] [address] [id number] [address] [place] [address], [place] [address] Sep, [facility] [address] [id number] [address] [place] [address], [place] [address] Sep, [facility] [address] [id number] [address] [place] [address], [place] [address] Sep, [facility] [address] [id number] [address] [place] [address], [place] [address] Sep, [facility] [address] [id number] [address] [place] [address], [place] [address] Sep, [facility] [address] [id number] [address] [place] [address], [place] [address] Aug, [facility] [address] [id number] [address] [place] [address], [place] [address] Aug, [facility] [address] [id number] [address] [place] [address], [place] [address] Aug, [facility] [address] [id number] [address] [place] [address], [place] [address] Aug, [facility] [address] [id number] [address] [place] [address], [place] [address] Jul, [facility] [address] [id number] [address] [place] [address], [place] [address] Jul, [facility] [address] [id number] [address] [place] [address], [place] [address] Jul, [facility] [address] [id number] [address] [place] [address], [place] [address] 17 Jul, 2014 [facility] [address] [id number] [address] [place] [address], [place] [address] Jul, [facility] [address] [id number] [address] [place] [address], [place] [address] Jul, [facility] [address] [id number] [address] [place] [address], [place] [address] Jul, [facility] [address] [id number] [address] [place] [address], [place] [address] Jul, [facility] [address] [id number] [address] [place] [address], [place] [address] Jun, [facility] [address] [id number] [address] [place] [address], [place] [address] 27 Jun, 2014 [facility] [address] [id number] [address] [place] [address], [place] [address] 20 Jun, 2014 [facility] [address] [id number] [address] [place] [address], [place] [address] 20 Jun, 2014 [facility] [address] [id number] [address] [place] [address], [place] [address] 16 Jun, 2014 [facility] [address] [id number] [address] [place] [address], [place] [address] 15 Jun, 2014 [facility] [address] [id number] [address] [place] [address], [place] [address] 15 Jun, 2014 [facility] [address] [id number] [address] [place] [address], [place] [address] 14 Jun, 2014 [facility] [address] [id number] [address] [place] [address], [place] [address] 14 Jun, 2014 [facility] [address] [id number] [address] [place] [address], [place] [address] 11 Jun, 2014 [facility] [address] [id number] [address] [place] [address] [place] [address] Jun, [facility] [address] [id number] [address] [place] [address], [place] [address] May, [facility] [address] [id number] [address] [place] [address], [place] [address] May, [facility] [address] [id number] [address] [place] [address], [place] [address] May, [facility] [address] [id number] [address] [place] [address], [place] [address] May, [facility] [address] [id number] [address] [place] [address], [place] [address] May, [facility] [address] [id number] [address] [place] [address], [place] [address] Apr, [facility] [address] [id number] [address] [place] [address], [place] [address] Apr, [facility] [address] [id number] [address] [place] [address], [place] [address] Apr, [facility] [address] [id number] [address] [place] [address], [place] [address] Apr, [facility] [address] [id number] [address] [place] [address], [place] [address] Apr, [facility] [address] [id number] [address] [place] [address], [place] [address] Apr, [facility] [address] [id number] [address] [place] [address], [place] [address] Mar, [facility] [address] [id number] [address] [place] [address], [place] [address] Mar, [facility] [address] [id number] [address] [place] [address], [place] [address] Mar, [facility] [address] [id number] [address] [place] [address], [place] [address] Mar, [facility] [address] [id number] [facility] [place] [address] Mar, [facility] [address] [id number] [address] [place] [address], [place] [address] Mar, [facility] [address] [id number] [address] [place] [address], [place] [address] Feb, [facility] [address] [id number] [address] [place] [address], [place] [address] Feb, [facility] [address] [id number] [address] [place] [address], [place] [address] Feb, [facility] [address] [id number] [address] [place] [address], [place] [address] Feb, [facility] [address] [id number] [address] [place] [address], [place] [address] Feb, [facility] [address] [id number] [address] [place] [address], [place] [address] Feb, [facility] [address] [id number] [address] [place] [address], [place] [address] Feb, [facility] [address] [id number] [address] [place] [address], [place] [address] Feb, [facility] [address] [id number] [address] [place] [address], [place] [address] January, [facility] [address] [id number] [address] [place] [address], [place] [address] January, [facility] [address] [id number] [address] [place] [address], [place] [address] January, [facility] [address] [id number] [address] [place] [address], [place] [address] January, [facility] [address] [id number] [address] [place] [address], [place] [address] January, [facility] [address] [id number] [address] [place] [address], [place] [address] January, [facility] [address] [id number] [facility] [place] [address] January, [facility] [address] [id number] [address] [place] [address], [place] [address] January, [facility] [address] [id number] [address] [place] [address], [place] [address] Dec, [facility] [address] [id number] [address] [place] [address], [place] [address] Dec, [facility] [address] [id number] [address] [place] [address], [place] [address] Dec, [facility] [address] [id number] [address] [place] [address], [place] [address] Dec, [facility] [address] [id number] [address] [place] [address], [place] [address] Dec, [facility] [address] [id number] [address] [place] [address], [place] [address] Dec, [facility] [address] [id number] [address] [place] [address], [place] [address] Nov, [facility] [address] [id number] [address] [place] [address], [place] [address] Nov, [facility] [address] [id number] [address] [place] [address], [place] [address] Nov, [facility] [place] [facility] [address] [id number] [address] [place] [address], [place] [address] Nov, [facility] [place] [facility] [address] [id number] [address] [place] [address], [place] [address] Nov, [facility] [place] [facility] [address] [id number] [address] [place] [address], [place] [address] Nov, [facility] [place] [facility] [address] [id number] [address] [place] [address], [place] [address] Nov, [facility] [place] [facility] [address] [id number] [address] [place] [address] Nov, [facility] [address] [id number] [address] [place] [address], [place] [address] Oct, [facility] [address] [id number] [address] [place] [address], [place] [address] Oct, [facility] [address] [id number] [address] [place] [address], [place] [address] Sep, [facility] [address] [id number] [address] [place] [address], [place] [address] Sep, [facility] [address] [id number] [address] [place] [address], [place] [address] Sep, [facility] [address] [id number] [address] [place] [address], [place] [address] Sep, [facility] [address] [id number] [address] [place] [address], [place] [address] Aug, [facility] [address] [id number] [address] [place] [address], [place] [address] Aug, [facility] [address] [id number] [address] [place] [address], [place] [address] Aug, [facility] [address] [id number] [address] [place] [address], [place] [address] Aug, [facility] [address] [id number] [address] [place] [address], [place] [address] Jul, [facility] [address] [id number] [address] [place] [address], [place] [address] Jul, [facility] [address] [id number] [address] [place] [address], [place] [address] Jul, [facility] [address] [id number] [address] [place] [address], [place] [address] Jul, [facility] [address] [id number] [address] [place] [address], [place] [address] Jul, [facility] [address] [id number] [address] [place] [address], [place] [address] Jul, [facility] [address] [id number] [address] [place] [address], [place] [address] Jul, [facility] [address] [id number] [address] [place] [address], [place] [address] Jul, [facility] [place] [facility] [address] [id number] [address] [place] [address], [place] [address] Jul, [facility] [address] [id number] [address] [place] [address], [place] [address] Jul, [facility] [address] [id number] [address] [place] [address], [place] [address] Jul, [facility] [address] [id number] [address] [place] [address], [place] [address] Jul, [facility] [address] [id number] [address] [place] [id number] Jun, [facility] [address] [id number] [address] [place] [address], [place] [address] Jun, [facility] [address] [id number] [address] [place] [address] Jun, [facility] [address] [id number] [address] [place] [id number] Jun, [facility] [address] [id number] [address] [place] [id number] 16 Jun, 2013 [facility] [address] [id number] [address] [place] [address], [place] [address] Jun, [facility] [address] [id number] [address] [place] [address] Jun, [facility] [place] [facility] [address] [id number] [address] [place] [id number] 02 Jun, 2013 [facility] [place] [facility] [address] [id number] [address] [place] [id number] 15 May, 2013 [facility] [address] [id number] [address] [place] [address], [place] [id number] 05 May, 2013 [facility] [address] [id number] [address] [place] [address], [place] [address] May, [facility] [address] [id number] [address] [place] [address], [place] [id number] Apr, [facility] [address] [id number] [address] [place] [address], [place] [address] Apr, [facility] [address] [id number] [address] [place] [address], [place] [address] Mar, [facility] [address] [id number] [address] [place] [address], [place] [address] Mar, [facility] [address] [id number] [address] [place] [address], [place] [address] Feb, [facility] [address] [id number] [address] [place] [address], [place] [address] January, [facility] [address] [id number] [address] [place] [address], [place] [address] January, [facility] [address] [id number] [address] [place] [address], [place] [address] January, [facility] [address] [id number] [address] [place] [address], [place] [address] January, [facility] [address] [id number] [address] [place] [address], [place] [address] January, [facility] [address] [id number] [address] [place] [address], [place] [address] Dec, [facility] [address] [id number] [address] [place] [address], [place] [address] Dec, [facility] [address] [id number] [address] [place] [address], [place] [address] Dec, [facility] [address] [id number] [address] [place] [address], [place] [address] Nov, [facility] [address] [id number] [address] [place] [address], [place] [id number] 27 Oct, 2012 [facility] [address] [id number] [address] [place] [address], [place] [id number] 18 Oct, 2012 [facility] [address] [id number] [address] [place] [address], [place] [id number] 15 Oct, 2012 [facility] [address] [id number] [address] [place] [address], [place] [id number] 18 Sep, 2012 [facility] [address] [id number] [address] [place] [address], [place] [address] 16 Sep, 2012 [facility] [address] [id number] [address] [place] [address], [place] [address] 14 Aug, 2012 [facility] [address] [id number] [address] [place] [address], [place] [address] Aug, [facility] [address] [id number] [address] [place] [address], [place] [address] Aug, [facility] [address] [id number] [address] [place] [address], [place] [address] Aug, [facility] [address] [id number] [address] [place] [address], [place] [address] Jul, [facility] [address] [id number] [address] [place] [address], [place] [address] Jul, [facility] [address] [id number] [address] [place] [address], [place] [address] Jul, [facility] [address] [id number] [address] [place] [address], [place] [address] Jul, [facility] [address] [id number] [address] [place] [address], [place] [address] Jul, [facility] [address] [id number] [address] [place] [address], [place] [id number] 15 Jun, 2012 [facility] [address] [id number] [address] [place] [address], [place] [id number] 15 Jun, 2012 [facility] [address] [id number] [address] [place] [address], [place] [address] 10 Jun, 2012 [facility] [address] [id number] [address] [place] [address], [place] [id number] 10 Jun, 2012 [facility] [address] [id number] [address] [place] [address], [place] [id number] 10 May, 2012 [facility] [address] [id number] [address] [place] [address], [place] [address] Apr, [facility] [address] [id number] [address] [place] [address], [place] [address] Apr, [facility] [address] [id number] [address] [place] [address], [place] [address] Apr, [facility] [address] [id number] [address] [place] [address], [place] [address] Apr, [facility] [address] [id number] [address] [place] [address], [place] [id number] January, [facility] [address] [id number] [address] [place] [address], [place] [address] January, [facility] [address] [id number] [address] [place] [address], [place] [address] Dec, [facility] [address] [id number] [address] [place] [address], [place] [address] Dec, [facility] [address] [id number] [address] [place] [address], [place] [address] Nov, [facility] [address] [id number] [address] [place] [address], [place] [address] Nov, [facility] [address] [id number] [address] [place] [address], [place] [address] Nov, [facility] [address] [id number] [address] [place] [address], [place] [address] Nov, [facility] [address] [id number] [address] [place] [address], [place] [address] Oct, [facility] [address] [id number] [address] [place] [address], [place] [address] Oct, [facility] [address] [id number] [address] [place] [address], [place] [address] Oct, [facility] [address] [id number] [address] [place] [address], [place] [address] Sep, [facility] [address] [id number] [address] [place] [address], [place] [address] Sep, [facility] [address] [id number] [address] [place] [address], [place] [address] Aug, [facility] [address] [id number] [address] [place] [address], [place] [address] Aug, [facility] [address] [id number] [address] [place] [address], [place] [address] Jul, [facility] [address] [id number] [address] [place] [address], [place] [address] Jul, [facility] [address] [id number] [address] [place] [address], [place] [address] Jul, [facility] [address] [id number] [address] [place] [address], [place] [address] Jun, [facility] [address] [id number] [address] [place] [address], [place] [address] Jun, [facility] [address] [id number] [address] [place] [address], [place] [address] Jun, [facility] [address] [id number] [address] [place] [address], [place] [address] Jun, [facility] [address] [id number] [address] [place] [address], [place] [address] Jun, [facility] [address] [id number] [address] [place] [address], [place] [address] 10 Jun, 2011 [facility] [address] [id number] [address] [place] [address], [place] [address] Aug, [facility] [address] [id number] [address] [place] [address], [place] [address] Aug, [facility] [address] [id number] [address] [place] [address], [place] [address] Aug, [facility] [address] [id number] [address] [place] [address], [place] [address] Jul, [facility] [address] [id number] [address] [place] [address], [place] [address] Jul, [facility] [address] [id number] [address] [place] [address], [place] [address] Jul, [facility] [address] [id number] [address] [place] [address], [place] [address] Jul, [facility] [address] [id number] [address] [place] [address], [place] [address] Jul, [facility] [address] [id number] [address] [place] [address], [place] [address] Jul, [facility] [address] [id number] [address] [place] [address], [place] [address] Jun, [facility] [address] [id number] [address] [place] [id number] Apr, [facility] [address] [id number] [address] [place] [address], [place] [address] Feb, [facility] [address] [id number] [address] [place] [address], [place] [id number] 10 Oct, 2009 [facility] [address] [id number] [address] [place] [address], [place] [id number] 13 Sep, 2009 [facility] [address] [id number] [address] [place] [id number] Aug, [facility] [address] [facility] [id number] [address] [place] [address] Aug, [facility] [address] [facility] [id number] [address] [place] [id number] Aug, [facility] [address] [facility] [id number] [address] [place] [id number] Jul, [facility] [address] [facility] [id number] [address] [place] [id number] Jun, IMMUNIZATIONS No Known Immunizations SOCIAL HISTORY [...]
--- OUTSIDE RECORDS SUMMARY | 2020-02-22 17:33 | XMS REPORT ---
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 Role Phone ZACKARY TRUJILLO Unavailable PROBLEMS Type Condition ICD9-CM Code PHH16-NL Code Onset Dates Condition S tatus SNOMED Code Problem Dyspepsia R10.13 Active 241691846 Problem History of anemia Z86.2 Active 27 7271007 Problem Cervical disc disease M50.90 Active 670431539 Problem Neck pain M54.2 Active [id number] ALLERGIES No Information ENCOUNTERS Encounter Location Date Diagnosis [facility] [address] [id number] [address] [place] [address] January, [facility] [address] [facility] [id number] [address] [place] [address] Dec, [facility] [address] [facility] [id number] [address] [place] [address] Dec, Cervical disc disease M50.90 [facility] [address] [facility] [id number] [address] [place] [address] Nov, Cervical disc disease M50.90 [facility] [address] [facility] [id number] [address] [place] [address] Nov, Cervical disc disease M50.90 [facility] [address] [facility] [id number] [address] [place] [address] 15 Oct, 2017 Cervical disc disease M50.90 [facility] [address] [facility] [id number] [address] [place] [address] 12 Oct, 2017 Cervical disc disease M50.90 and Acute non-recurrent maxillary sinusitis J01.00 [facility] [address] [facility] [id number] [address] [place] [address] Sep, Cervical disc disease M50.90 [facility] [address] [facility] [id number] [address] [place] [address] Sep, [facility] [address] [facility] [id number] [address] [place] [address] Sep, Fatigue, unspecified type R5 3.83 and Cough R05 [facility] [address] [facility] [id number] [address] [place] [address] Aug, Cervical disc disease M50.90 [facility] [address] [facility] [id number] [address] [place] [address] Aug, Sore throat J02.9 ; Canker s ore K12.0 and History of anemia Z86.2 [facility] [address] [facility] [id number] [address] [place] [address] Jul, Cervical disc disease M50.90 [facility] [address] [facility] [id number] [address] [place] [address] Jun, Cervical disc disease M50.90 [facility] [address] [facility] [id number] [address] [place] [address] Jun, Cervical disc disease M50.90 [facility] [address] [facility] [id number] [address] [place] [id number] May, Cervical disc disease M50.90 [facility] [address] [facility] [id number] [address] [place] [address] Apr, Cervical disc disease M50.90 [facility] [address] [facility] [id number] [address] [place] [address] Apr, [facility] [address] [facility] [id number] [address] [place] [address] Feb, Cervical disc disease M50.90 [facility] [address] [facility] [id number] [address] [place] [address] January, Cervical disc disease M50.90 [place] [address] [id number] [address] [place] [address] Nov, [facility] [address] [facility] [id number] [address] [place] [address] Nov, Cervical disc disease M50.90 [facility] [address] [facility] [id number] [address] [place] [address] Nov, Acute cystitis with hematuri a N30.01 and Dysuria R30.0 [facility] [address] [facility] [id number] [address] [place] [address] Oct, Cervical disc disease M50.90 and Acute non-recurrent frontal sinusitis J01.10 [facility] [address] [facility] [id number] [address] [place] [address] Sep, Neck pain M54.2 [facility] [address] [facility] [id number] [address] [place] [address] Sep, [facility] [address] [facility] [id number] [address] [place] [address] Aug, Cervical disc disease M50.90 [facility] [address] [facility] [id number] [address] [place] [address] Jul, [facility] [address] [id number] [address] [place] [address] Jun, [facility] [address] [id number] [address] [place] [phone] May, [facility] [address] [facility] [id number] [address] [place] [address] May, Screening for diabetes emilio tunakia Z13.1 ; Chronic fatigue R53.82 and Edema, unspecified type R60.9 [facility] [address] [facility] [id number] [address] [place] [address] Apr, Neck pain M54.2 [facility] [address] [id number] [address] [place] [address] Mar, [facility] [address] [id number] [address] [place] [address] Mar, Neck pain M54.2 [facility] [address] [id number] [address] [place] [address] Feb, Cervical disc disease M50.90 [facility] [address] [id number] [address] [place] [phone] Feb, Cervical disc disease M50.90 [facility] [address] [id number] [address] [place] [address] January, [facility] [address] [id number] [address] [place] [phone] January, [facility] [address] [id number] [address] [place] [address] January, Cervical disc disease M50.90 [facility] [address] [id number] [address] [place] [address] January, [facility] [address] [id number] [address] [place] [address] January, [facility] [address] [id number] [address] [place] [address] Dec, Cervical disc disease M50.90 [facility] [address] [id number] [address] [place] [address] Nov, Cervical disc disease M50.90 [facility] [address] [id number] [address] [place] [address] Oct, Cervical disc disease M50.90 [facility] [address] [id number] [address] [place] [address] Sep, Cervical disc disease M50.90 [facility] [address] [id number] [address] [place] [id number] Aug, Dental caries K02.9 and Enco unter for dental examination Z01.20 [facility] [address] [id number] [address] [place] [phone] 16 Aug, 2015 [facility] [place] [facility] [address] [id number] [address] [place] [phone] Aug, [facility] [address] [id number] [address] [place] [address] [id number] 08 Aug, 2015 Encounter for dental examina tion Z01.20 [facility] [address] [id number] [address] [place] [address] Jul, [facility] [address] [id number] [address] [place] [address] Jun, Sinusitis J32.9 and Cervical disc disease M50.90 [facility] [address] [id number] [address] [place] [address] Jun, [facility] [address] [id number] [address] [place] [phone] 24 May, 2015 [facility] [address] [id number] [address] [place] [phone] May, [facility] [address] [id number] [address] [place] [phone] May, [facility] [address] [id number] [address] [place] [address] May, [facility] [address] [id number] [address] [place] [address] Apr, Cervical spondylosis without myelopathy 721.0 [facility] [address] [id number] [address] [place] [phone] Mar, [facility] [address] [id number] [address] [place] [phone] January, Cervical spondylosis without myelopathy 721.0 [facility] [address] [id number] [address] [place] [phone] Dec, [facility] [address] [id number] [address] [place] [address], [place] [address] 14 Dec, 2014 [facility] [address] [id number] [address] [place] [address], [place] [address] 13 Dec, 2014 [facility] [address] [id number] [address] [place] [address], [place] [address] Nov, [facility] [address] [id number] [address] [place] [address], [place] [address] Nov, [facility] [address] [id number] [address] [place] [address], [place] [address] Oct, [facility] [address] [id number] [address] [place] [address], [place] [address] Oct, [facility] [address] [id number] [address] [place] [address], [place] [address] Oct, [facility] [address] [id number] [address] [place] [address], [place] [address] Oct, [facility] [address] [id number] [address] [place] [address], [place] [address] Oct, [facility] [address] [id number] [address] [place] [address], [place] [address] Oct, [facility] [address] [id number] [address] [place] [address], [place] [address] Oct, [facility] [address] [id number] [address] [place] [address], [place] [address] Oct, [facility] [address] [id number] [address] [place] [address], [place] [address] Oct, [facility] [address] [id number] [address] [place] [address], [place] [address] Oct, [facility] [address] [id number] [address] [place] [address], [place] [address] Sep, [facility] [address] [id number] [address] [place] [address], [place] [address] Sep, [facility] [address] [id number] [address] [place] [address], [place] [address] Sep, [facility] [address] [id number] [address] [place] [address], [place] [address] Sep, [facility] [address] [id number] [address] [place] [address], [place] [address] Sep, [facility] [address] [id number] [address] [place] [address], [place] [address] Sep, [facility] [address] [id number] [address] [place] [address], [place] [address] Sep, [facility] [address] [id number] [address] [place] [address], [place] [address] Sep, [facility] [address] [id number] [address] [place] [address], [place] [address] Sep, [facility] [address] [id number] [address] [place] [address], [place] [address] Aug, [facility] [address] [id number] [address] [place] [address], [place] [address] Aug, [facility] [address] [id number] [address] [place] [address], [place] [address] Aug, [facility] [address] [id number] [address] [place] [address], [place] [address] Aug, [facility] [address] [id number] [address] [place] [address], [place] [address] Jul, [facility] [address] [id number] [address] [place] [address], [place] [address] Jul, [facility] [address] [id number] [address] [place] [address], [place] [address] Jul, [facility] [address] [id number] [address] [place] [address], [place] [address] Jul, [facility] [address] [id number] [address] [place] [address], [place] [address] Jul, [facility] [address] [id number] [address] [place] [address], [place] [address] Jul, [facility] [address] [id number] [address] [place] [address], [place] [address] Jul, [facility] [address] [id number] [address] [place] [address], [place] [address] Jul, [facility] [address] [id number] [address] [place] [address], [place] [address] Jun, [facility] [address] [id number] [address] [place] [address], [place] [address] 27 Jun, 2014 [facility] [address] [id number] [address] [place] [address], [place] [address] Jun, [facility] [address] [id number] [address] [place] [address], [place] [address] 20 Jun, 2014 [facility] [address] [id number] [address] [place] [address], [place] [address] 16 Jun, 2014 [facility] [address] [id number] [address] [place] [address], [place] [address] 15 Jun, 2014 [facility] [address] [id number] [address] [place] [address], [place] [address] 15 Jun, 2014 [facility] [address] [id number] [address] [place] [address], [place] [address] 14 Jun, 2014 [facility] [address] [id number] [address] [place] [address], [place] [address] 14 Jun, 2014 [facility] [address] [id number] [address] [place] [address], [place] [address] 11 Jun, 2014 [facility] [address] [id number] [address] [place] [address], [place] [address] 11 Jun, 2014 [facility] [address] [id number] [address] [place] [address], [place] [address] May, [facility] [address] [id number] [address] [place] [address], [place] [address] May, [facility] [address] [id number] [address] [place] [address], [place] [address] May, [facility] [address] [id number] [address] [place] [address], [place] [address] May, [facility] [address] [id number] [address] [place] [address], [place] [address] May, [facility] [address] [id number] [address] [place] [address], [place] [address] Apr, [facility] [address] [id number] [address] [place] [address], [place] [address] Apr, [facility] [address] [id number] [address] [place] [address], [place] [address] Apr, [facility] [address] [id number] [address] [place] [address], [place] [address] Apr, [facility] [address] [id number] [address] [place] [address], [place] [address] Apr, [facility] [address] [id number] [address] [place] [address], [place] [address] Apr, [facility] [address] [id number] [address] [place] [address], [place] [address] Mar, [facility] [address] [id number] [address] [place] [address], [place] [address] Mar, [facility] [address] [id number] [address] [place] [address], [place] [address] Mar, [facility] [address] [id number] [address] [place] [address], [place] [address] Mar, [facility] [address] [id number] [address] [place] [address], [place] [address] Mar, [facility] [address] [id number] [address] [place] [address], [place] [address] Mar, [facility] [address] [id number] [address] [place] [address], [place] [address] Feb, [facility] [address] [id number] [address] [place] [address], [place] [address] Feb, [facility] [address] [id number] [address] [place] [address], [place] [address] Feb, [facility] [address] [id number] [address] [place] [address], [place] [address] Feb, [facility] [address] [id number] [address] [place] [address], [place] [address] Feb, [facility] [address] [id number] [address] [place] [address], [place] [address] Feb, [facility] [address] [id number] [address] [place] [address], [place] [address] Feb, [facility] [address] [id number] [address] [place] [address], [place] [address] Feb, [facility] [address] [id number] [address] [place] [address], [place] [address] January, [facility] [address] [id number] [address] [place] [address], [place] [address] January, [facility] [address] [id number] [address] [place] [address], [place] [address] January, [facility] [address] [id number] [address] [place] [address], [place] [address] January, [facility] [address] [id number] [address] [place] [address], [place] [address] January, [facility] [address] [id number] [address] [place] [address], [place] [address] January, [facility] [address] [id number] [address] [place] [address], [place] [address] January, [facility] [address] [id number] [facility] [place] [address] January, [facility] [address] [id number] [facility] [place] [address] Dec, [facility] [address] [id number] [address] [place] [address], [place] [address] Dec, [facility] [address] [id number] [address] [place] [address], [place] [address] Dec, [facility] [address] [id number] [address] [place] [address], [place] [address] Dec, [facility] [address] [id number] [address] [place] [address], [place] [address] Dec, [facility] [address] [id number] [address] [place] [address], [place] [address] Dec, [facility] [address] [id number] [address] [place] [address], [place] [address] Nov, [facility] [address] [id number] [address] [place] [address], [place] [address] Nov, [facility] [address] [id number] [address] [place] [address], [place] [address] Nov, [facility] [address] [id number] [address] [place] [address], [place] [address] Nov, [facility] [address] [id number] [address] [place] [address], [place] [address] Nov, [facility] [address] [id number] [address] [place] [address], [place] [address] Nov, [facility] [address] [id number] [address] [place] [address], [place] [address] Nov, [facility] [address] [id number] [address] [place] [address], [place] [address] Nov, [facility] [address] [id number] [address] [place] [address], [place] [address] Oct, [facility] [address] [id number] [address] [place] [address], [place] [address] Oct, [facility] [address] [id number] [address] [place] [address], [place] [address] Sep, [facility] [address] [id number] [address] [place] [address], [place] [address] Sep, [facility] [address] [id number] [address] [place] [address], [place] [address] Sep, [facility] [address] [id number] [address] [place] [address], [place] [address] Sep, [facility] [address] [id number] [address] [place] [address], [place] [address] Aug, [facility] [address] [id number] [address] [place] [address], [place] [address] Aug, [facility] [address] [id number] [address] [place] [address], [place] [address] Aug, [facility] [address] [id number] [address] [place] [address], [place] [address] Aug, [facility] [address] [id number] [address] [place] [address], [place] [address] Jul, [facility] [address] [id number] [address] [place] [address], [place] [address] Jul, [facility] [address] [id number] [address] [place] [address], [place] [address] Jul, [facility] [address] [id number] [address] [place] [address], [place] [address] Jul, [facility] [address] [id number] [address] [place] [address], [place] [address] Jul, [facility] [address] [id number] [address] [place] [address], [place] [address] Jul, [facility] [address] [id number] [address] [place] [address], [place] [address] 12 Jul, 2013 [facility] [address] [id number] [address] [place] [address], [place] [address] 06 Jul, 2013 [facility] [address] [id number] [address] [place] [address], [place] [address] Jul, [facility] [address] [id number] [address] [place] [address], [place] [address] 05 Jul, 2013 [facility] [address] [id number] [address] [place] [address], [place] [address] 05 Jul, 2013 [facility] [address] [id number] [address] [place] [address], [place] [address] Jul, [facility] [address] [id number] [address] [place] [address], [place] [address] Jun, [facility] [address] [id number] [address] [place] [address], [place] [address] Jun, [facility] [address] [id number] [address] [place] [address], [place] [address] Jun, [facility] [address] [id number] [address] [place] [address], [place] [address] Jun, [facility] [address] [id number] [address] [place] [address], [place] [address] 16 Jun, 2013 [facility] [address] [id number] [address] [place] [address], [place] [address] 14 Jun, 2013 [facility] [address] [id number] [address] [place] [address], [place] [address] 14 Jun, 2013 [facility] [address] [id number] [address] [place] [address], [place] [address] 02 Jun, 2013 [facility] [address] [id number] [address] [place] [address], [place] [address] 15 May, 2013 [facility] [address] [id number] [address] [place] [address] 05 May, 2013 [facility] [address] [id number] [address] [place] [address], [place] [address] May, [facility] [address] [id number] [address] [place] [address], [place] [address] Apr, [facility] [address] [id number] [address] [place] [address], [place] [address] Apr, [facility] [address] [id number] [address] [place] [address], [place] [address] Mar, [facility] [address] [id number] [address] [place] [address], [place] [address] Mar, [facility] [address] [id number] [address] [place] [address], [place] [address] Feb, [facility] [address] [id number] [address] [place] [address], [place] [address] January, [facility] [address] [id number] [address] [place] [address], [place] [address] January, [facility] [address] [id number] [address] [place] [address], [place] [address] January, [facility] [address] [id number] [address] [place] [address], [place] [address] January, [facility] [address] [id number] [address] [place] [address], [place] [address] January, [facility] [address] [id number] [address] [place] [address], [place] [address] Dec, [facility] [address] [id number] [address] [place] [address], [place] [address] Dec, [facility] [address] [id number] [address] [place] [address], [place] [address] Dec, [facility] [address] [id number] [address] [place] [address], [place] [address] Nov, [facility] [address] [id number] [address] [address] Oct, [facility] [address] [id number] [address] [place] [address], [place] [address] 18 Oct, 2012 [facility] [address] [id number] [address] [place] [address] 15 Oct, 2012 [facility] [address] [id number] [address] [place] [address], [place] [address] Sep, [facility] [address] [id number] [address] [place] [address] 16 Sep, 2012 [facility] [address] [id number] [address] [place] [address], [place] [address] 14 Aug, 2012 [facility] [address] [id number] [address] [place] [address], [place] [address] 14 Aug, 2012 [facility] [address] [id number] [address] [place] [address], [place] [address] Aug, [facility] [address] [id number] [address] [place] [address], [place] [address] Aug, [facility] [address] [id number] [address] [place] [address] Jul, [facility] [address] [id number] [address] [place] [address], [place] [address] Jul, [facility] [address] [id number] [address] [place] [address] Jul, [facility] [address] [id number] [address] [place] [address] Jul, [facility] [address] [id number] [address] [place] [address] Jul, [facility] [address] [id number] [address] [place] [address] 15 Jun, 2012 [facility] [address] [id number] [address] [place] [address], [place] [address] 15 Jun, 2012 [facility] [address] [id number] [address] [place] [address], [place] [address] 10 Jun, 2012 [facility] [address] [id number] [address] [place] [address], [place] [address] 10 Jun, 2012 [facility] [address] [id number] [address] [place] [address], [place] [address] 10 May, 2012 [facility] [address] [id number] [address] [place] [address], [place] [address] Apr, [facility] [address] [id number] [address] [place] [address], [place] [address] Apr, [facility] [address] [id number] [address] [place] [address], [place] [address] Apr, [facility] [address] [id number] [address] [place] [address], [place] [address] Apr, [facility] [address] [id number] [address] [place] [address], [place] [address] January, [facility] [address] [id number] [address] [place] [address], [place] [address] January, [facility] [address] [id number] [address] [place] [address], [place] [address] Dec, [facility] [address] [id number] [address] [place] [address], [place] [address] Dec, [facility] [address] [id number] [address] [place] [address], [place] [address] Nov, [facility] [address] [id number] [address] [place] [address], [place] [address] Nov, [facility] [address] [id number] [address] [place] [address], [place] [address] Nov, [facility] [address] [id number] [address] [place] [address], [place] [address] Nov, [facility] [address] [id number] [address] [place] [address], [place] [address] Oct, [facility] [address] [id number] [address] [place] [address], [place] [address] Oct, [facility] [address] [id number] [address] [place] [address], [place] [address] Oct, [facility] [address] [id number] [address] [place] [address], [place] [address] Sep, [facility] [address] [id number] [address] [place] [address], [place] [address] Sep, [facility] [address] [id number] [address] [place] [address], [place] [address] Aug, [facility] [address] [id number] [address] [place] [address], [place] [address] Aug, [facility] [address] [id number] [address] [place] [address], [place] [address] Jul, [facility] [address] [id number] [address] [place] [address], [place] [address] Jul, [facility] [address] [id number] [address] [place] [address], [place] [address] Jul, [facility] [address] [id number] [address] [place] [address], [place] [address] Jun, [facility] [address] [id number] [address] [place] [address] 24 Jun, 2011 [facility] [address] [id number] [address] [place] [phone] Jun, [facility] [address] [id number] [address] [place] [address], [place] [address] Jun, [facility] [address] [id number] [address] [place] [address] Jun, [facility] [address] [id number] [address] [place] [address], [place] [address] Jun, [facility] [address] [id number] [address] [place] [address], [place] [address] 29 Aug, 2010 [facility] [address] [id number] [address] [place] [address], [place] [address] 12 Aug, 2010 [facility] [address] [id number] [address] [place] [address], [place] [address] 08 Aug, 2010 [facility] [address] [id number] [address] [place] [address], [place] [address] 29 Jul, 2010 [facility] [address] [id number] [address] [place] [address], [place] [address] 27 Jul, 2010 [facility] [address] [id number] [address] [place] [address], [place] [address] Jul, [facility] [address] [id number] [address] [place] [address], [place] [address] 15 Jul, 2010 [facility] [address] [id number] [address] [place] [address], [place] [address] 15 Jul, 2010 [facility] [address] [id number] [address] [place] [address], [place] [address] 08 Jul, 2010 [facility] [address] [id number] [address] [place] [address], [place] [address] 25 Jun, 2010 [facility] [address] [id number] [address] [place] [address], [place] [address] Apr, [facility] [address] [id number] [address] [place] [address], [place] [address] 11 Feb, 2010 [facility] [address] [id number] [address] [place] [address], [place] [address] 10 Oct, 2009 [facility] [address] [id number] [address] [place] [address], [place] [address] 13 Sep, 2009 [facility] [address] [id number] [address] [place] [address], [place] [address] 18 Aug, 2009 [facility] [address] [id number] [address] [place] [address], [place] [address] Aug, [facility] [address] [facility] [id number] [address] [place] [address] Aug, [facility] [address] [facility] [id number] [address] [place] [address] Jul, [facility] [address] [facility] [id number] [address] [place] [address] Jun, IMMUNIZATIONS No Known Immunizations SOCIAL HISTORY [...]
--- OUTSIDE RECORDS SUMMARY | 2020-02-22 17:33 | XMS REPORT ---
Author Author Marion TRUJILLO Organization [facility] Address [address] [place] [address] Care Team Providers Care Environmental Law Professor Name Role Phone ZACKARY TRUJILLO Unavailable PROBLEMS Type Condition ICD9-CM Code [id number] Code Onset Dates Condition S tatus SNOMED Code Problem Cervical disc disease M50.90 Active 084935722 Problem Neck pain M54.2 Active 30334916 ALLERGIES Unknown Allergies SOCIAL HISTORY No smoking Hx information available PLAN OF CARE VITAL SIGNS MEDICATIONS Medication Instructions Dosage Frequency Start Date End Date Duration S tatus Valium 5 mg Orally Once a day, prn restlessness 1 tablet Oct, Active RESULTS No Results PROCEDURES No Known procedures IMMUNIZATIONS No Known Immunizations
--- OUTSIDE RECORDS SUMMARY | 2020-02-22 17:33 | XMS REPORT ---
Author Author Marion TRUJILLO [facility] eClinical[employer] Address Unknown Phone Unavailable Care Team Providers Care Roof Truss Detailer Name Role Phone ZACKARY TRUJILLO Unavailable Allergies No Known Allergies Problems Problem Type Condition ICD-9 Code Onset Dates Condition Statu s Problem Urinary frequency 788.41 Active Problem Abdominal pain, other specified site 789.09 Active Problem Abdominal pain, left upper quadrant 789.02 Active Problem Palpitations 785.1 Active Problem Altered mental status 780.97 Active Problem Acute sinusitis, unspecified 461.9 Active Problem Unspecified peripheral vertigo 386.10 Active Problem Cervical spondylosis without myelopathy 721.0 Active Problem Unspecified sleep apnea 780.57 Acti ve Problem Unspecified iron deficiency anemia 280.9 Active Problem Thoracic or lumbosacral neuritis or radiculitis, unspe cified 724.4 Active Problem Acute upper respiratory infections of unspecified site 465.9 Active Problem Excessive or frequent menstruation 626.2 Active Problem Acute nasopharyngitis (common cold) 460 Active Problem Chronic gastric ulcer withou t mention of hemorrhage, perforation, without mention of obstruction 531.70 Active Problem Unspecified Eustachian tube disorder 381.9 Active Problem Dysuria 788.1 Active Medications Medication Code System Code Instructions Start Date End Date Status Dosage Imitrex [facility] [address]-96 100 MG Oct 15, 2014 1 ta blet by Oral route 1 time per day PRN may repeat dose once in 2 hours ; quantity must last 30 days Results No Known Results Summary Purpose eClinicalWorks Submission
--- OUTSIDE RECORDS SUMMARY | 2020-02-22 17:33 | XMS REPORT ---
Author Author Marion TRUJILLO [facility] eClinicalWorks Address Unknown Phone Unavailable Care Team Providers Care Certified Histologic Technician Name Role Phone ZACKARY TRUJILLO Unavailable Allergies [...] 381.9 Active Problem Dysuria 788.1 Active Medications No Known Medications Results No Known Results Summary Purpose eClinicalWorks Submission
--- OUTSIDE RECORDS SUMMARY | 2020-02-22 17:33 | XMS REPORT ---
Author Author Marion GORMAN eClinical[employer] Address Unknown Phone Unavailable Care Team Providers Care Human Resource Statistician Name Role Phone MARCUS GORMAN CP Unavailable Allergies, Adverse Reactions, Alerts Substance Reaction Event Type sulfa drugs Info Not Available Drug Allergy Zanaflex Info Not Available Drug Allergy Naprosyn Info Not Available Drug Allergy Problems Problem Type Condition Code Onset Dates [...] Problem Unspecified iron deficiency anemia 280.9 Active Assessment Dental caries K02.9 Active Problem Thoracic or lumbosacral neuritis or radiculitis, unspe cified 724.4 Active Assessment Encounter for dental examination Z01.20 Active Problem Acute upper respiratory infections of [...] Instructions Start Date End Date Status Dosage Rabeprazole Sodium [facility] [address]-07 20 MG Orally Once a day May 1 tablet [place] [facility] [address]-61 7.5-325 MG Orally every 6 hrs 1 tablet as needed tramadol [facility] 0 50 mg Oral every 6 hours November 12, 2014 take 2 tablets by Carafate [facility] [address]-40 not defin ed Valium [facility] [address]-73 5 MG Oct 15, 2014 1 tab let by Oral route 1 time per day hs Imitrex [facility] [address]-21 100 MG Oct 15, 2014 1 ta blet by Oral route 1 time per day PRN may repeat dose once in 2 hours ; quantity must last 30 days Amoxicillin [facility] [address]-10 500 MG Orally every 6 hours 1 capsule Procedures Procedure Coding System Code Date EXTRAC ERUPTED TOOTH/EXPOSED ROOT CPT-4 D7140 Aug 10, 2015 Vital Signs Date/Time: Aug 18, 2015 Blood Pressure Diastolic 95 mmHg Blood Pressure Systolic 134 mmHg Results No Known Results Summary Purpose eClinicalWorks Submission
[2020-02-22 17:34] LABS: TOTAL PROTEIN 7.4 GM/DL (6.4-8.2)
--- OUTSIDE RECORDS SUMMARY | 2020-02-22 17:34 | XMS REPORT ---
Author Author Marion TRUJILLO Organization [facility] Address [address] [place] [address] Care Team Providers Care Consignee Name Role Phone ZACKARY TRUJILLO Unavailable PROBLEMS Type Condition ICD9-CM Code RST58-QE Code Onset Dates Condition S tatus SNOMED Code Problem Dyspepsia R10.13 Active 748792976 Problem History of anemia Z86.2 Active 27 7058422 Problem Cervical disc disease M50.90 Active 697063129 Problem Neck pain M54.2 Active [id number] ALLERGIES No Information ENCOUNTERS Encounter Location Date Diagnosis [facility] [address] [facility] [place] [id number] [address] [place] [address] Feb, Cervical disc disease M50.90 [facility] [address] [id number] [address] [place] [address] January, Cervical disc disease M50.90 [facility] [address] [facility] [place] [id number] [address] [place] [address] Dec, [facility] [address] [facility] [place] [id number] [address] [place] [address] Dec, Cervical disc disease M50.90 [facility] [address] [facility] [place] [id number] [address] [place] [address] Nov, Cervical disc disease M50.90 [facility] [address] [facility] [place] [id number] [address] [place] [address] Nov, Cervical disc disease M50.90 [facility] [address] [facility] [place] [facility] [id number] [address] [place] [address] Oct, Cervical disc disease M50.90 [facility] [address] [facility] [place] [id number] [address] [place] [address] Oct, Cervical disc disease M50.90 and Acute non-recurrent maxillary sinusitis J01.00 [facility] [address] [facility] [place] [id number] [address] [place] [address] Sep, Cervical disc disease M50.90 [facility] [address] [facility] [place] [facility] [id number] [address] [place] [address] Sep, [facility] [address] [facility] [place] [id number] [address] [place] [address] Sep, Fatigue, unspecified type R5 3.83 and Cough R05 [facility] [address] [facility] [place] [id number] [address] [place] [address] Aug, Cervical disc disease M50.90 [facility] [address] [place] [id number] [address] [place] [address] Aug, Sore throat J02.9 ; Canker s ore K12.0 and History of anemia Z86.2 [facility] [address] [place] [id number] [address] [place] [address] Jul, Cervical disc disease M50.90 [place] [address] [place] [id number] [address] [place] [address] Jun, Cervical disc disease M50.90 [facility] [address] [facility] [place] [facility] [id number] [address] [place] [address] Jun, Cervical disc disease M50.90 [facility] [address] [facility] [place] [facility] [id number] [address] [place] [address] May, Cervical disc disease M50.90 [facility] [address] [facility] [place] [facility] [id number] [address] [place] [address] Apr, Cervical disc disease M50.90 [facility] [address] [facility] [place] [facility] [id number] [address] [place] [address] Apr, [facility] [address] [facility] [place] [id number] [address] [place] [address] Feb, Cervical disc disease M50.90 [facility] [address] [facility] [place] [id number] [address] [place] [address] January, Cervical disc disease M50.90 [facility] [address] [facility] [place] [id number] [address] [place] [address] Nov, [facility] [address] [facility] [place] [id number] [address] [place] [address] Nov, Cervical disc disease M50.90 [facility] [address] [facility] [place] [facility] [id number] [address] [place] [address] Nov, Acute cystitis with hematuri a N30.01 and Dysuria R30.0 [facility] [address] [facility] [place] [facility] [id number] [address] [place] [address] Oct, Cervical disc disease M50.90 and Acute non-recurrent frontal sinusitis J01.10 [facility] [address] [facility] [place] [facility] [id number] [address] [place] [address] Sep, Neck pain M54.2 [facility] [address] [facility] [place] [id number] [address] [place] [address] Sep, [facility] [address] [facility] [place] [id number] [address] [place] [address] Aug, Cervical disc disease M50.90 [facility] [address] [facility] [place] [id number] [address] [place] [address] Jul, [facility] [address] [facility] [place] [id number] [address] [place] [address] Jun, [facility] [address] [facility] [place] [id number] [address] [place] [address] May, [place] [address] [place] [id number] [address] [place] [address] 08 May, 2016 Screening for diabetes melli tus Z13.1 ; Chronic fatigue R53.82 and Edema, unspecified type R60.9 [facility] [address] [place] [id number] [address] [place] [address] Apr, Neck pain M54.2 [facility] [address] [id number] [address] [place] [address] Mar, [facility] [address] [id number] [address] [place] [address] Mar, Neck pain M54.2 [facility] [address] [id number] [address] [place] [address] Feb, Cervical disc disease M50.90 [facility] [address] [id number] [address] [place] [address] Feb, Cervical disc disease M50.90 [facility] [address] [id number] [address] [place] [address] January, [facility] [address] [id number] [address] [place] [address] January, [facility] [address] [id number] [address] [place] [address] January, Cervical disc disease M50.90 [facility] [address] [id number] [address] [place] [address] January, [facility] [address] [id number] [address] [place] [address] January, [facility] [address] [id number] [address] [place] [address] Dec, Cervical disc disease M50.90 [facility] [address] [id number] [address] [place] [address] Nov, Cervical disc disease M50.90 [facility] [address] [id number] [address] [place] [address] Oct, Cervical disc disease M50.90 [facility] [address] [id number] [address] [place] [address] Sep, Cervical disc disease M50.90 [facility] [address] [id number] [address] [place] [id number] Aug, 2015 Dental caries K02.9 and Enco unter for dental examination Z01.20 [facility] [address] [id number] [address] [place] [address] Aug, [facility] [address] [id number] [address] [place] [address] Aug, [facility] [address] [id number] [address] [place] [id number] Aug, Encounter for dental examina tion Z01.20 [facility] [address] [id number] [address] [place] [address] Jul, [facility] [address] [id number] [address] [place] [address] Jun, Sinusitis J32.9 and Cervical disc disease M50.90 [facility] [address] [id number] [address] [place] [address] Jun, [facility] [address] [id number] [address] [place] [address] May, [facility] [address] [id number] [address] [place] [address] May, [facility] [address] [id number] [address] [place] [address] May, [facility] [address] [id number] [address] [place] [address] May, [facility] [address] [id number] [address] [place] [address] Apr, Cervical spondylosis without myelopathy 721.0 [facility] [address] [id number] [address] [place] [address] Mar, [facility] [address] [id number] [address] [place] [address] January, Cervical spondylosis without myelopathy 721.0 [facility] [address] [id number] [address] [place] [address], [place] [address] 28 Dec, 2014 [facility] [address] [id number] [address] [place] [address], [place] [address] 14 Dec, 2014 [facility] [address] [id number] [address] [place] [address], [place] [address] Dec, [facility] [address] [id number] [address] [place] [address], [place] [address] Nov, [facility] [address] [id number] [address] [place] [address], [place] [address] Nov, [facility] [address] [id number] [address] [place] [address], [place] [address] Oct, [facility] [address] [id number] [address] [place] [address], [place] [address] Oct, [facility] [address] [id number] [address] [place] [address] Oct, 2014 [facility] [address] [id number] [address] [place] [address], [place] [address] Oct, [facility] [address] [id number] [address] [place] [address] Oct, [facility] [address] [id number] [address] [place] [address] Oct, 2014 [facility] [address] [id number] [address] [place] [address] Oct, 2014 [facility] [address] [id number] [address] [place] [address] Oct, 2014 [facility] [address] [id number] [address] [place] [address] Oct, 2014 [facility] [address] [id number] [address] [place] [address] Oct, 2014 [facility] [address] [id number] [address] [place] [address], [place] [address] Sep, [facility] [address] [id number] [address] [place] [address], [place] [address] Sep, [facility] [address] [id number] [address] [place] [address], [place] [address] Sep, [facility] [address] [id number] [address] [place] [address], [place] [address] Sep, [facility] [address] [id number] [address] [place] [address], [place] [address] Sep, [facility] [address] [id number] [address] [place] [address], [place] [address] Sep, [facility] [address] [id number] [address] [place] [address], [place] [address] Sep, [facility] [address] [id number] [address] [place] [address], [place] [address] Sep, [facility] [address] [id number] [address] [place] [address], [place] [address] Sep, [facility] [address] [id number] [address] [place] [address], [place] [address] Aug, [facility] [address] [id number] [address] [place] [address], [place] [address] Aug, [facility] [address] [id number] [address] [place] [address], [place] [address] Aug, [facility] [address] [id number] [address] [place] [address], [place] [address] Aug, [facility] [address] [id number] [address] [place] [address], [place] [address] Jul, [facility] [address] [id number] [address] [place] [address], [place] [address] Jul, [facility] [address] [id number] [address] [place] [address], [place] [address] Jul, [facility] [address] [id number] [address] [place] [address], [place] [address] 17 Jul, 2014 [facility] [address] [id number] [address] [place] [address], [place] [address] Jul, [facility] [address] [id number] [address] [place] [address], [place] [address] Jul, [facility] [address] [id number] [address] [place] [address], [place] [address] Jul, [facility] [address] [id number] [address] [place] [address], [place] [address] Jul, [facility] [address] [id number] [address] [place] [address], [place] [address] Jun, [facility] [address] [id number] [address] [place] [address], [place] [address] 27 Jun, 2014 [facility] [address] [id number] [address] [place] [address], [place] [address] 20 Jun, 2014 [facility] [address] [id number] [address] [place] [address], [place] [address] 20 Jun, 2014 [facility] [address] [id number] [address] [place] [address] 16 Jun, 2014 [facility] [address] [id number] [address] [place] [address] 15 Jun, 2014 [facility] [address] [id number] [address] [place] [address] 15 Jun, 2014 [facility] [address] [id number] [address] [place] [address], [place] [address] 14 Jun, 2014 [facility] [address] [id number] [address] [place] [address], [place] [address] 14 Jun, 2014 [facility] [address] [id number] [address] [place] [address] 11 Jun, 2014 [facility] [address] [id number] [address] [place] [address] Jun, [facility] [address] [id number] [address] [place] [address], [place] [address] May, [facility] [address] [id number] [address] [place] [address], [place] [address] May, [facility] [address] [id number] [address] [place] [address], [place] [address] May, [facility] [address] [id number] [address] [place] [address], [place] [address] May, [facility] [address] [id number] [address] [place] [address], [place] [address] May, [facility] [address] [id number] [address] [place] [address], [place] [address] Apr, [facility] [address] [id number] [address] [place] [address], [place] [address] Apr, [facility] [address] [id number] [address] [place] [address], [place] [address] Apr, [facility] [address] [id number] [address] [place] [address], [place] [address] Apr, [facility] [address] [id number] [address] [place] [address], [place] [address] Apr, [facility] [address] [id number] [address] [place] [address], [place] [address] Apr, [facility] [address] [id number] [address] [place] [address], [place] [address] Mar, [facility] [address] [id number] [address] [place] [address], [place] [address] Mar, [facility] [address] [id number] [address] [place] [address], [place] [address] Mar, [facility] [address] [id number] [address] [place] [address], [place] [address] Mar, [facility] [address] [id number] [facility] [place] [address] Mar, [facility] [address] [id number] [facility] [place] [address] Mar, [facility] [address] [id number] [facility] [place] [address] Feb, [facility] [address] [id number] [address] [place] [address], [place] [address] Feb, [facility] [address] [id number] [address] [place] [address], [place] [address] Feb, [facility] [address] [id number] [address] [place] [address], [place] [address] Feb, [facility] [address] [id number] [address] [place] [address], [place] [address] Feb, [facility] [address] [id number] [address] [place] [address], [place] [address] Feb, [facility] [address] [id number] [address] [place] [address], [place] [address] Feb, [facility] [address] [id number] [address] [place] [address], [place] [address] Feb, [facility] [address] [id number] [address] [place] [address], [place] [address] January, [facility] [address] [id number] [address] [place] [address], [place] [address] January, [facility] [address] [id number] [address] [place] [address], [place] [address] January, [facility] [address] [id number] [address] [place] [address], [place] [address] January, [facility] [address] [id number] [address] [place] [address], [place] [address] January, [facility] [address] [id number] [address] [place] [address], [place] [address] January, [facility] [address] [id number] [facility] [place] [address] January, [facility] [address] [id number] [facility] [place] [address] January, [facility] [address] [id number] [address] [place] [address], [place] [address] Dec, [facility] [address] [id number] [address] [place] [address], [place] [address] Dec, [facility] [address] [id number] [address] [place] [address], [place] [address] Dec, [facility] [address] [id number] [address] [place] [address], [place] [address] Dec, [facility] [address] [id number] [address] [place] [address], [place] [address] Dec, [facility] [address] [id number] [address] [place] [address], [place] [address] Dec, [facility] [address] [id number] [address] [place] [address], [place] [address] Nov, [facility] [address] [id number] [address] [place] [address], [place] [address] Nov, [facility] [address] [id number] [address] [place] [address], [place] [address] Nov, [facility] [address] [id number] [address] [place] [address], [place] [address] Nov, [facility] [address] [id number] [address] [place] [address], [place] [address] Nov, [facility] [address] [id number] [address] [place] [address], [place] [address] Nov, [facility] [address] [id number] [address] [place] [address], [place] [address] Nov, [facility] [address] [id number] [address] [place] [address], [place] [address] Nov, [facility] [address] [id number] [address] [place] [address], [place] [address] Oct, [facility] [address] [id number] [address] [place] [address], [place] [address] Oct, [facility] [address] [id number] [address] [place] [address], [place] [address] Sep, [facility] [address] [id number] [address] [place] [address], [place] [address] Sep, [facility] [address] [id number] [address] [place] [address], [place] [address] Sep, [facility] [address] [id number] [address] [place] [address], [place] [address] Sep, [facility] [address] [id number] [address] [place] [address], [place] [address] Aug, [facility] [address] [id number] [address] [place] [address], [place] [address] Aug, [facility] [address] [id number] [address] [place] [address], [place] [address] Aug, [facility] [address] [id number] [address] [place] [address], [place] [address] Aug, [facility] [address] [id number] [address] [place] [address], [place] [address] Jul, [facility] [address] [id number] [address] [place] [address], [place] [address] Jul, [facility] [address] [id number] [address] [place] [address], [place] [address] Jul, [facility] [address] [id number] [address] [place] [address], [place] [address] Jul, [facility] [address] [id number] [address] [place] [address], [place] [address] Jul, [facility] [address] [id number] [address] [place] [address], [place] [address] Jul, [facility] [address] [id number] [address] [place] [address], [place] [address] Jul, [facility] [address] [id number] [address] [place] [address], [place] [address] Jul, [facility] [address] [id number] [address] [place] [address], [place] [address] Jul, [facility] [address] [id number] [address] [place] [address], [place] [address] Jul, [facility] [address] [id number] [address] [place] [address], [place] [address] Jul, [facility] [address] [id number] [address] [place] [address], [place] [address] Jul, [facility] [address] [id number] [address] [place] [address], [place] [address] Jun, [facility] [address] [id number] [address] [place] [address], [place] [address] Jun, [facility] [address] [id number] [address] [place] [address], [place] [address] Jun, [facility] [address] [id number] [address] [place] [address], [place] [address] Jun, [facility] [address] [id number] [address] [place] [id number] 16 Jun, 2013 [facility] [address] [id number] [address] [place] [address], [place] [address] Jun, [facility] [address] [id number] [address] [place] [address], [place] [address] Jun, [facility] [address] [id number] [address] [place] [id number] Jun, [facility] [facility] [address] [id number] [address] [place] [address] 15 May, 2013 [facility] [address] [id number] [address] [place] [address], [place] [address] 05 May, 2013 [facility] [address] [id number] [address] [place] [address], [place] [address] May, [facility] [address] [id number] [address] [place] [address], [place] [address] Apr, [facility] [address] [id number] [address] [place] [address], [place] [address] Apr, [facility] [address] [id number] [address] [place] [address], [place] [address] Mar, [facility] [address] [id number] [address] [place] [address], [place] [address] Mar, [facility] [address] [id number] [address] [place] [address], [place] [address] Feb, [facility] [address] [id number] [address] [place] [address], [place] [address] January, [facility] [address] [id number] [address] [place] [address], [place] [address] January, [facility] [address] [id number] [address] [place] [address], [place] [address] January, [facility] [address] [id number] [address] [place] [address], [place] [address] January, [facility] [address] [id number] [address] [place] [address], [place] [address] January, [facility] [address] [id number] [address] [place] [address], [place] [address] Dec, [facility] [address] [id number] [address] [place] [address], [place] [address] Dec, [facility] [address] [id number] [address] [place] [address], [place] [address] Dec, [facility] [address] [id number] [address] [place] [address], [place] [address] 18 Nov, 2012 [facility] [address] [id number] [address] [place] [address], [place] [address] 27 Oct, 2012 [facility] [address] [id number] [address] [place] [address], [place] [address] 18 Oct, 2012 [facility] [address] [id number] [address] [place] [address], [place] [address] 15 Oct, 2012 [facility] [address] [id number] [address] [place] [address], [place] [address] 18 Sep, 2012 [facility] [address] [id number] [address] [place] [address], [place] [address] 16 Sep, 2012 [facility] [address] [id number] [address] [place] [address], [place] [address] 14 Aug, 2012 [facility] [address] [id number] [address] [place] [address], [place] [address] Aug, [facility] [address] [id number] [address] [place] [address], [place] [address] Aug, [facility] [address] [id number] [address] [place] [address], [place] [address] Aug, [facility] [address] [id number] [address] [place] [address], [place] [address] Jul, [facility] [address] [id number] [address] [place] [address], [place] [address] Jul, [facility] [address] [id number] [address] [place] [address], [place] [address] Jul, [facility] [address] [id number] [address] [place] [address], [place] [address] Jul, [facility] [address] [id number] [address] [place] [address], [place] [address] Jul, [facility] [address] [id number] [address] [place] [address], [place] [address] 15 Jun, 2012 [facility] [address] [id number] [address] [place] [address], [place] [address] 15 Jun, 2012 [facility] [address] [id number] [address] [place] [address], [place] [address] 10 Jun, 2012 [facility] [address] [id number] [address] [place] [address], [place] [address] 10 Jun, 2012 [facility] [address] [id number] [address] [place] [address], [place] [address] 10 May, 2012 [facility] [address] [id number] [address] [place] [address], [place] [address] Apr, [facility] [address] [id number] [address] [place] [address], [place] [address] Apr, [facility] [address] [id number] [address] [place] [address], [place] [address] Apr, [facility] [address] [id number] [address] [place] [address], [place] [address] Apr, [facility] [address] [id number] [address] [place] [address], [place] [address] January, [facility] [address] [id number] [address] [place] [address], [place] [address] January, [facility] [address] [id number] [address] [place] [address], [place] [address] Dec, [facility] [address] [id number] [address] [place] [address], [place] [address] Dec, [facility] [address] [id number] [address] [place] [address], [place] [address] Nov, [facility] [address] [id number] [address] [place] [address], [place] [address] Nov, [facility] [address] [id number] [address] [place] [address], [place] [address] Nov, [facility] [address] [id number] [address] [place] [address], [place] [address] Nov, [facility] [address] [id number] [address] [place] [address], [place] [address] Oct, [facility] [address] [id number] [address] [place] [address], [place] [address] Oct, [facility] [address] [id number] [address] [place] [address], [place] [address] Oct, [facility] [address] [id number] [address] [place] [address], [place] [address] Sep, [facility] [address] [id number] [address] [place] [address], [place] [address] Sep, [facility] [address] [id number] [address] [place] [address], [place] [address] Aug, [facility] [address] [id number] [address] [place] [address], [place] [address] Aug, [facility] [address] [id number] [address] [place] [address], [place] [address] Jul, [facility] [address] [id number] [address] [place] [address], [place] [address] Jul, [facility] [address] [id number] [address] [place] [address], [place] [address] Jul, [facility] [address] [id number] [address] [place] [address], [place] [address] Jun, [facility] [address] [id number] [address] [place] [address], [place] [address] Jun, [facility] [address] [id number] [address] [place] [address], [place] [address] Jun, [facility] [address] [id number] [address] [place] [address], [place] [address] Jun, [facility] [address] [id number] [address] [place] [address], [place] [address] Jun, [facility] [address] [id number] [address] [place] [address], [place] [address] 10 Jun, 2011 [facility] [address] [id number] [address] [place] [address], [place] [address] Aug, [facility] [address] [id number] [address] [place] [address], [place] [address] Aug, [facility] [address] [id number] [address] [place] [address], [place] [address] Aug, [facility] [address] [id number] [address] [place] [address], [place] [address] Jul, [facility] [address] [id number] [address] [place] [address], [place] [address] Jul, [facility] [address] [id number] [address] [place] [address], [place] [address] Jul, [facility] [address] [id number] [address] [place] [address] Jul, [facility] [address] [id number] [address] [place] [address], [place] [address] Jul, [facility] [address] [id number] [address] [place] [address] Jul, [facility] [address] [id number] [address] [place] [address] Jun, [facility] [address] [id number] [address] [place] [address] Apr, [facility] [address] [id number] [address] [place] [address], [place] [address] Feb, [facility] [address] [id number] [address] [place] [address] 10 Oct, 2009 [facility] [address] [id number] [address] [place] [address] 13 Sep, 2009 [facility] [address] [id number] [address] [place] [address] Aug, [facility] [address] [facility] [id number] [address] [place] [address] Aug, [facility] [address] [facility] [place] [id number] [address] [place] [address] Aug, [facility] [address] [facility] [place] [id number] [address] [place] [address] Jul, [facility] [address] [facility] [place] [id number] [address] [place] [address] Jun, IMMUNIZATIONS No Known Immunizations SOCIAL HISTORY Never Assessed REASON FOR VISIT Controlled Med Refill 09/21/17 PLAN OF CARE VITAL SIGNS MEDICATIONS Medication [...]
--- OUTSIDE RECORDS SUMMARY | 2020-02-22 17:34 | XMS REPORT ---
Author Author Marion TRUJILLO [facility] eClinicalWorks Address Unknown Phone Unavailable Care Team Providers Care Clinical Rehab Specialist Name Role Phone ZACKARY TRUJILLO CP Unavailable Allergies, Adverse Reactions, Alerts Substance Reaction Event Type Zanaflex Info Not Available Drug Allergy Naprosyn Info Not Available Drug Allergy Problems Problem Type Condition ICD-9 Code Onset [...] Unspecified iron deficiency anemia 280.9 Active Assessment Cervical spondylosis without myelopathy 721.0 Active Problem Thoracic or lumbosacral neuritis or [...] Instructions Start Date End Date Status Dosage Valium NDC [address]-32 5 MG Oct 15, 2014 1 tab let by Oral route 1 time per day hs tramadol NDC 0 50 mg Oral every 6 hours November 12, 2014 take 2 tablets by Imitrex NDC [address]-52 100 MG Oct 15, 2014 1 ta blet by Oral route 1 time per day PRN may repeat dose once in 2 hours ; quantity must last 30 days Procedures Procedure Coding System Code Date Office Visit, Est Pt., Level 2 CPT-4 70549 A 2014 Vital Signs Date/Time: Apr 27, 2015 Temperature 98.0 F Weight 177 lbs Height 65 in BMI 29.45 Index Blood Pressure Diastolic 76 mmHg Blood Pressure Systolic 128 mmHg Cardiac Monitoring Heart Rate 68 bpm Results No Known Results Summary Purpose eClinicalWorks Submission
--- OUTSIDE RECORDS SUMMARY | 2020-02-22 17:34 | XMS REPORT ---
Author Author Marion TRUJILLO [facility] Address [address] [place] [address] Care Team Providers Care Job Foreman Name Role Phone ZACKARY TRUJILLO Unavailable PROBLEMS Type Condition ICD9-CM Code [id number] Code Onset Dates Condition S tatus SNOMED Code Problem Neck pain M54.2 Active 46347861 ALLERGIES Unknown Allergies SOCIAL HISTORY No smoking Hx information available PLAN OF CARE VITAL SIGNS MEDICATIONS Medication Instructions Dosage Frequency Start Date End Date Duration S tatus Levothyroxine Sodium 50 MCG Orally Once a day 1 tablet on an empty stomach in the morning 24h 12 May, 2016 Active RESULTS No Results PROCEDURES No Known procedures IMMUNIZATIONS No Known Immunizations
--- OUTSIDE RECORDS SUMMARY | 2020-02-22 17:34 | XMS REPORT ---
Author Author Marion GORMAN eClinical[employer] Address Unknown Phone Unavailable Care Team Providers Care City Recorder Name Role Phone MARCUS GORMAN CP Unavailable [...] Unspecified iron deficiency anemia 280.9 Active Assessment Encounter for dental examination Z01.20 Active Problem Thoracic or lumbosacral neuritis or [...] Instructions Start Date End Date Status Dosage Carafate [facility] [address]-65 not defin ed [place] [facility] [address]-79 7.5-325 MG Orally every 6 hrs 1 tablet as needed Amoxicillin [facility] [address]-12 500 MG Orally every 6 hours 1 capsule Rabeprazole Sodium [facility] [address]-44 20 MG Orally Once a day May 1 tablet Imitrex [facility] [address]-30 100 MG Oct 15, 2014 1 ta blet by Oral route 1 time per day PRN may repeat dose once in 2 hours ; quantity must last 30 days Valium NDC [address]-71 5 MG Oct 15, 2014 1 tab let by Oral route 1 time per day hs tramadol NDC 0 50 mg Oral every 6 hours November 12, 2014 take 2 tablets by Procedures Procedure Coding System Code Date INTRAORL-PERIAPICAL 1 FILM 52711 CPT-4 D0220 Aug 10, 2015 BITEWING - SINGLE FILM CPT-4 D0270 Aug 10, 015 LTD ORAL EVALUATION - PROBLEM FOCUS CPT-4 D0140 Aug 10, 2015 Vital Signs Date/Time: Aug 10, 2015 Blood Pressure Diastolic 77 mmHg Blood Pressure Systolic 120 mmHg Results No Known Results Summary Purpose eClinicalWorks Submission
--- OUTSIDE RECORDS SUMMARY | 2020-02-22 17:34 | XMS REPORT ---
Author Author Marion TRUJILLO [facility] eClinicalWorks Address Unknown Phone Unavailable Care Team Providers Care Women'S Studies Professor Name Role Phone ZACKARY TRUJILLO Unavailable Allergies No Known Allergies Problems Problem Type Condition Code Onset Dates Condition Statu s Problem Neck pain M54.2 Active Medications Medication Code System Code Instructions Start Date End Date Status Dosage Valium [facility] [address]-73 5 mg Orally Once a day, prn restl essness Oct 15, 2014 1 tablet Results No Known Results Summary Purpose eClinicalWorks Submission
--- OUTSIDE RECORDS SUMMARY | 2020-02-22 17:34 | XMS REPORT ---
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 Name Role Phone ZACKARY TRUJILLO Unavailable PROBLEMS Type Condition ICD9-CM Code [id number] Code Onset Dates Condition S tatus SNOMED Code Problem Dyspepsia R10.13 Active 912813782 Problem History of anemia Z86.2 Active 27 3733646 Problem Cervical disc disease M50.90 Active 197776927 Problem Neck pain M54.2 Active 41860957 ALLERGIES Substance Reaction Event Type Date Status sulfa drugs Unknown Drug Allergy Feb, Active Zanaflex Unknown Drug Allergy Feb, Active Naprosyn Unknown Drug Allergy Feb, Active ENCOUNTERS Encounter Location Date Diagnosis [facility] [address] [id number] [address] [place] [address] Nov, Cervical disc disease M50.90 [facility] [address] [id number] [address] [place] [id number] 15 Oct, 2017 Cervical disc disease M50.90 [facility] [address] [id number] [address] [place] [address] 12 Oct, 2017 Cervical disc disease M50.90 and Acute non-recurrent maxillary sinusitis J01.00 [facility] [address] [id number] [address] [place] [address] Sep, Cervical disc disease M50.90 [facility] [address] [id number] [address] [place] [phone] Sep, [facility] [address] [id number] [address] [place] [id number] Sep, Fatigue, unspecified type R5 3.83 and Cough R05 [facility] [address] [id number] [address] [place] [address] Aug, Cervical disc disease M50.90 [facility] [address] [facility] [id number] [address] [place] [address] Aug, Sore throat J02.9 ; Canker s ore K12.0 and History of anemia Z86.2 [facility] [address] [facility] [id number] [address] [place] [id number] Jul, Cervical disc disease M50.90 [facility] [address] [facility] [id number] [address] [place] [address] Jun, Cervical disc disease M50.90 [facility] [address] [facility] [id number] [address] [place] [address] Jun, Cervical disc disease M50.90 [facility] [address] [facility] [id number] [address] [place] [address] May, Cervical disc disease M50.90 [facility] [address] [facility] [id number] [address] [place] [address] Apr, Cervical disc disease M50.90 [facility] [address] [facility] [id number] [address] [place] [address] Apr, [facility] [address] [facility] [id number] [address] [place] [address] Feb, Cervical disc disease M50.90 [facility] [address] [facility] [id number] [address] [place] [address] January, Cervical disc disease M50.90 [facility] [address] [facility] [id number] [address] [place] [address] Nov, [facility] [address] [facility] [id number] [address] [place] [address] Nov, Cervical disc disease M50.90 [facility] [address] [facility] [id number] [address] [place] [address] Nov, Acute cystitis with hematuri a N30.01 and Dysuria R30.0 [facility] [address] [id number] [address] [place] [address] Oct, Cervical disc disease M50.90 and Acute non-recurrent frontal sinusitis J01.10 [facility] [address] [id number] [address] [place] [id number] Sep, Neck pain M54.2 [facility] [address] [id number] [address] [place] [address] Sep, [facility] [address] [id number] [address] [place] [address] Aug, Cervical disc disease M50.90 [facility] [address] [id number] [address] [place] [id number] Jul, [facility] [address] [id number] [address] [place] [address] Jun, [facility] [address] [id number] [address] [place] [address] May, [facility] [address] [facility] [id number] [address] [place] [address] May, Screening for diabetes emilio tus Z13.1 ; Chronic fatigue R53.82 and Edema, unspecified type R60.9 [facility] [address] [id number] [address] [place] [address] Apr, Neck pain M54.2 [facility] [address] [id number] [address] [place] [address] Mar, [facility] [address] [id number] [address] [place] [address] Mar, Neck pain M54.2 [facility] [address] [id number] [address] [place] [address] Feb, Cervical disc disease M50.90 [facility] [address] [facility] [id number] [address] [place] [address] Feb, Cervical disc disease M50.90 [facility] [address] [id number] [address] [place] [address] January, [facility] [address] [id number] [address] [place] [address] January, [facility] [address] [id number] [address] [place] [address] January, Cervical disc disease M50.90 [facility] [address] [id number] [address] [place] [address] January, [facility] [address] [id number] [address] [place] [address] January, [facility] [address] [id number] [address] [place] [address] Dec, Cervical disc disease M50.90 [facility] [address] [id number] [address] [place] [address] Nov, Cervical disc disease M50.90 [facility] [address] [id number] [address] [place] [address] Oct, Cervical disc disease M50.90 [facility] [address] [id number] [address] [place] [id number] Sep, Cervical disc disease M50.90 [facility] [address] [id number] [address] [place] [id number] Aug, Dental caries K02.9 and Enco unter for dental examination Z01.20 [facility] [address] [id number] [address] [place] [id number] Aug, [facility] [address] [id number] [address] [place] [id number] 15 Aug, 2015 [facility] [address] [id number] [address] [place] [id number] 08 Aug, 2015 Encounter for dental examina tion Z01.20 [facility] [address] [id number] [address] [place] [id number] Jul, [facility] [address] [id number] [address] [place] [address] Jun, Sinusitis J32.9 and Cervical disc disease M50.90 [facility] [address] [id number] [address] [place] [id number] Jun, [facility] [address] [id number] [address] [place] [id number] 24 May, 2015 [facility] [address] [id number] [address] [place] [id number] May, [facility] [address] [id number] [address] [place] [id number] May, [facility] [address] [id number] [address] [place] [id number] May, [facility] [address] [id number] [address] [place] [id number] Apr, Cervical spondylosis without myelopathy 721.0 [facility] [address] [id number] [address] [place] [address] Mar, [facility] [address] [id number] [address] [place] [phone] January, Cervical spondylosis without myelopathy 721.0 [facility] [address] [id number] [address] [place] [id number] 28 Dec, 2014 [facility] [address] [id number] [address] [place] [id number] 14 Dec, 2014 [facility] [address] [id number] [address] [place] [id number] 13 Dec, 2014 [facility] [address] [id number] [address] [place] [id number] Nov, [facility] [address] [id number] [address] [place] [phone] Nov, [facility] [address] [id number] [address] [place] [address], [place] [address] Oct, 2014 [facility] [address] [id number] [address] [place] [address], [place] [address] Oct, 2014 [facility] [address] [id number] [address] [place] [address], [place] [address] Oct, 2014 [facility] [address] [id number] [address] [place] [address], [place] [address] Oct, 2014 [facility] [address] [id number] [address] [place] [address], [place] [address] Oct, 2014 [facility] [address] [id number] [address] [place] [address], [place] [address] Oct, 2014 [facility] [address] [id number] [address] [place] [address], [place] [address] Oct, 2014 [facility] [address] [id number] [address] [place] [address], [place] [address] Oct, [facility] [address] [id number] [address] [place] [address], [place] [address] Oct, [facility] [address] [id number] [address] [place] [address], [place] [address] Oct, [facility] [address] [id number] [address] [place] [address], [place] [address] Sep, [facility] [address] [id number] [address] [place] [address], [place] [address] Sep, [facility] [address] [id number] [address] [place] [address], [place] [address] Sep, [facility] [address] [id number] [address] [place] [address], [place] [address] Sep, [facility] [address] [id number] [address] [place] [phone] Sep, [facility] [address] [id number] [address] [place] [address], [place] [address] Sep, [facility] [address] [id number] [address] [place] [address], [place] [address] Sep, [facility] [address] [id number] [address] [place] [address], [place] [address] Sep, [facility] [address] [id number] [address] [place] [address], [place] [address] Sep, [facility] [address] [id number] [address] [place] [address], [place] [address] Aug, [facility] [address] [id number] [address] [place] [address], [place] [address] Aug, [facility] [address] [id number] [address] [place] [address], [place] [address] Aug, [facility] [address] [id number] [address] [place] [address], [place] [address] Aug, [facility] [address] [id number] [address] [place] [address], [place] [address] Jul, [facility] [address] [id number] [address] [place] [address], [place] [address] Jul, [facility] [address] [id number] [address] [place] [address], [place] [address] Jul, [facility] [address] [id number] [address] [place] [address], [place] [address] Jul, [facility] [address] [id number] [address] [place] [address], [place] [address] Jul, [facility] [address] [id number] [address] [place] [address], [place] [address] Jul, [facility] [address] [id number] [address] [place] [address], [place] [address] Jul, [facility] [address] [id number] [address] [place] [address], [place] [address] Jul, [facility] [address] [id number] [address] [place] [address], [place] [address] 27 Jun, 2014 [facility] [address] [id number] [address] [place] [address], [place] [address] 27 Jun, 2014 [facility] [address] [id number] [address] [place] [address], [place] [address] 20 Jun, 2014 [facility] [address] [id number] [address] [place] [address], [place] [address] 20 Jun, 2014 [facility] [address] [id number] [address] [place] [address], [place] [address] 16 Jun, 2014 [facility] [address] [id number] [address] [place] [address], [place] [address] 15 Jun, 2014 [facility] [address] [id number] [address] [place] [address], [place] [address] 15 Jun, 2014 [facility] [address] [id number] [address] [place] [address], [place] [address] 14 Jun, 2014 [facility] [address] [id number] [address] [place] [address], [place] [address] 14 Jun, 2014 [facility] [address] [id number] [address] [place] [address], [place] [address] 11 Jun, 2014 [facility] [address] [id number] [address] [place] [address], [place] [address] 11 Jun, 2014 [facility] [address] [id number] [address] [place] [address], [place] [address] 24 May, 2014 [facility] [address] [id number] [address] [place] [address], [place] [address] 24 May, 2014 [facility] [address] [id number] [address] [place] [address], [place] [address] 08 May, 2014 [facility] [address] [id number] [address] [place] [address], [place] [address] 02 May, 2013 [facility] [address] [id number] [address] [place] [address], [place] [address] May, [facility] [address] [id number] [address] [place] [address], [place] [address] Apr, [facility] [address] [id number] [address] [place] [address], [place] [address] Apr, [facility] [address] [id number] [address] [place] [address], [place] [address] Apr, [facility] [address] [id number] [address] [place] [address], [place] [address] Apr, [facility] [address] [id number] [address] [place] [address], [place] [address] Apr, [facility] [address] [id number] [address] [place] [address], [place] [address] Apr, [facility] [address] [id number] [address] [place] [address], [place] [address] Mar, [facility] [address] [id number] [address] [place] [address], [place] [address] Mar, [facility] [address] [id number] [address] [place] [address], [place] [address] Mar, [facility] [address] [id number] [address] [place] [address], [place] [address] Mar, [facility] [address] [id number] [address] [place] [address], [place] [address] Mar, [facility] [address] [id number] [address] [place] [address], [place] [address] Mar, [facility] [address] [id number] [address] [place] [address], [place] [address] Feb, [facility] [address] [id number] [address] [place] [address], [place] [address] Feb, [facility] [address] [id number] [address] [place] [address], [place] [address] Feb, [facility] [address] [id number] [address] [place] [address], [place] [address] Feb, [facility] [address] [id number] [address] [place] [address], [place] [address] Feb, [facility] [address] [id number] [address] [place] [address], [place] [address] Feb, [facility] [address] [id number] [address] [place] [address], [place] [address] Feb, [facility] [address] [id number] [address] [place] [address], [place] [address] Feb, [facility] [address] [id number] [address] [place] [address], [place] [address] January, [facility] [address] [id number] [address] [place] [address], [place] [address] January, [facility] [address] [id number] [address] [place] [address], [place] [address] January, [facility] [address] [id number] [address] [place] [address], [place] [address] January, [facility] [address] [id number] [address] [place] [address], [place] [address] January, [facility] [address] [id number] [address] [place] [address], [place] [address] January, [facility] [address] [id number] [address] [place] [address], [place] [address] January, [facility] [address] [id number] [address] [place] [address], [place] [address] January, [facility] [address] [id number] [address] [place] [address], [place] [address] Dec, [facility] [address] [id number] [address] [place] [address], [place] [address] Dec, [facility] [address] [id number] [address] [place] [address], [place] [address] Dec, [facility] [address] [id number] [address] [place] [address], [place] [address] Dec, [facility] [address] [id number] [address] [place] [address], [place] [address] Dec, [facility] [address] [id number] [address] [place] [address], [place] [address] Dec, [facility] [address] [id number] [address] [place] [address], [place] [address] Nov, [facility] [address] [id number] [address] [place] [address], [place] [address] Nov, [facility] [address] [id number] [address] [place] [address], [place] [address] Nov, [facility] [address] [id number] [address] [place] [address], [place] [address] Nov, [facility] [address] [id number] [address] [place] [address], [place] [address] Nov, [facility] [address] [id number] [address] [place] [address], [place] [address] Nov, [facility] [address] [id number] [address] [place] [address], [place] [address] Nov, [facility] [address] [id number] [address] [place] [address], [place] [address] Nov, [facility] [address] [id number] [address] [place] [address], [place] [address] Oct, [facility] [address] [id number] [address] [place] [address], [place] [address] Oct, [facility] [address] [id number] [address] [place] [address], [place] [address] Sep, [facility] [address] [id number] [address] [place] [address], [place] [address] Sep, [facility] [address] [id number] [address] [place] [address], [place] [address] Sep, [facility] [address] [id number] [address] [place] [address], [place] [address] Sep, [facility] [address] [id number] [address] [place] [address], [place] [address] Aug, [facility] [address] [id number] [address] [place] [address], [place] [address] Aug, [facility] [address] [id number] [address] [place] [address], [place] [address] Aug, [facility] [address] [id number] [address] [place] [address], [place] [address] Aug, [facility] [address] [id number] [address] [place] [address], [place] [address] Jul, [facility] [address] [id number] [address] [place] [address], [place] [address] Jul, [facility] [address] [id number] [address] [place] [address], [place] [address] Jul, [facility] [address] [id number] [address] [place] [address], [place] [address] Jul, [facility] [address] [id number] [address] [place] [address], [place] [address] Jul, [facility] [address] [id number] [address] [place] [address], [place] [address] Jul, [facility] [address] [id number] [address] [place] [address], [place] [address] Jul, [facility] [address] [id number] [address] [place] [address], [place] [address] Jul, [facility] [address] [id number] [address] [place] [address], [place] [address] Jul, [facility] [address] [id number] [address] [place] [address], [place] [address] Jul, [facility] [address] [id number] [address] [place] [address], [place] [address] Jul, [facility] [address] [id number] [address] [place] [address], [place] [address] Jul, [facility] [address] [id number] [address] [place] [address], [place] [address] Jun, [facility] [address] [id number] [address] [place] [address], [place] [address] Jun, [facility] [address] [id number] [address] [place] [address], [place] [address] Jun, [facility] [address] [id number] [address] [place] [address], [place] [address] Jun, [facility] [address] [id number] [address] [place] [address], [place] [address] Jun, [facility] [address] [id number] [address] [place] [address], [place] [address] Jun, [facility] [address] [id number] [address] [place] [address], [place] [address] 14 Jun, 2013 [facility] [address] [id number] [address] [place] [address], [place] [address] Jun, [facility] [address] [id number] [address] [place] [id number] 15 May, 2013 [facility] [address] [id number] [address] [place] [id number] 05 May, 2013 [facility] [address] [id number] [address] [place] [address], [place] [address] 04 May, 2013 [facility] [address] [id number] [address] [place] [id number] Apr, [facility] [address] [id number] [address] [place] [address], [place] [address] Apr, [facility] [address] [id number] [address] [place] [address], [place] [address] Mar, [facility] [address] [id number] [address] [place] [address], [place] [id number] Mar, [facility] [address] [id number] [address] [place] [address], [place] [address] Feb, [facility] [address] [id number] [address] [place] [address], [place] [address] January, [facility] [address] [id number] [address] [place] [address], [place] [address] January, [facility] [address] [id number] [address] [place] [address], [place] [address] January, [facility] [address] [id number] [address] [place] [address], [place] [address] January, [facility] [address] [id number] [address] [place] [address], [place] [address] January, [facility] [address] [id number] [address] [place] [address], [place] [address] Dec, [facility] [address] [id number] [address] [place] [address], [place] [address] Dec, [facility] [address] [id number] [address] [place] [address], [place] [address] Dec, [facility] [address] [id number] [address] [place] [address], [place] [address] Nov, [facility] [address] [id number] [address] [place] [address], [place] [address] Oct, [facility] [address] [id number] [address] [place] [address], [place] [address] Oct, [facility] [address] [id number] [address] [place] [address], [place] [address] Oct, [facility] [address] [id number] [address] [place] [address], [place] [address] Sep, [facility] [address] [id number] [address] [place] [address], [place] [address] 16 Sep, 2012 [facility] [address] [id number] [address] [place] [address], [place] [address] 14 Aug, 2012 [facility] [address] [id number] [address] [place] [address], [place] [address] 14 Aug, 2012 [facility] [address] [id number] [address] [place] [address], [place] [address] Aug, [facility] [address] [id number] [address] [place] [address], [place] [address] Aug, [facility] [address] [id number] [address] [place] [address], [place] [address] Jul, [facility] [address] [id number] [address] [place] [address], [place] [address] Jul, [facility] [address] [id number] [address] [place] [address], [place] [address] Jul, [facility] [address] [id number] [address] [place] [address], [place] [address] Jul, [facility] [address] [id number] [address] [place] [address], [place] [address] Jul, [facility] [address] [id number] [address] [place] [address], [place] [address] 15 Jun, 2012 [facility] [address] [id number] [address] [place] [address], [place] [address] 15 Jun, 2012 [facility] [address] [id number] [address] [place] [address], [place] [address] 10 Jun, 2012 [facility] [address] [id number] [address] [place] [address], [place] [address] 10 Jun, 2012 [facility] [address] [id number] [address] [place] [address], [place] [address] 10 May, 2012 [facility] [address] [id number] [address] [place] [address] [place] [address] Apr, [facility] [address] [id number] [address] [place] [address], [place] [address] Apr, [facility] [address] [id number] [address] [place] [address], [place] [address] Apr, [facility] [address] [id number] [address] [place] [address], [place] [address] Apr, [facility] [address] [id number] [address] [place] [address], [place] [address] January, [facility] [address] [id number] [address] [place] [address], [place] [address] January, [facility] [address] [id number] [address] [place] [address], [place] [address] Dec, [facility] [address] [id number] [address] [place] [address], [place] [address] Dec, [facility] [address] [id number] [address] [place] [address], [place] [address] Nov, [facility] [address] [id number] [address] [place] [address], [place] [address] Nov, [facility] [address] [id number] [address] [place] [address], [place] [address] Nov, [facility] [address] [id number] [address] [place] [address], [place] [address] Nov, [facility] [address] [id number] [address] [place] [address], [place] [address] Oct, [facility] [address] [id number] [address] [place] [address], [place] [address] Oct, [facility] [address] [id number] [address] [place] [address], [place] [address] Oct, [facility] [address] [id number] [address] [place] [address], [place] [address] Sep, [facility] [address] [id number] [address] [place] [address], [place] [address] Sep, [facility] [address] [id number] [address] [place] [address], [place] [address] Aug, [facility] [address] [id number] [address] [place] [address], [place] [address] Aug, [facility] [address] [id number] [address] [place] [address], [place] [address] Jul, [facility] [address] [id number] [address] [place] [address], [place] [address] Jul, [facility] [address] [id number] [address] [place] [address], [place] [address] Jul, [facility] [address] [id number] [address] [place] [address], [place] [address] Jun, [facility] [address] [id number] [address] [place] [address], [place] [address] Jun, [facility] [address] [id number] [address] [place] [address], [place] [address] Jun, [facility] [address] [id number] [address] [place] [address], [place] [address] Jun, [facility] [address] [id number] [address] [place] [address], [place] [address] Jun, [facility] [address] [id number] [address] [place] [address], [place] [address] Jun, [facility] [address] [id number] [address] [place] [address], [place] [address] Aug, [facility] [address] [id number] [address] [place] [address], [place] [address] Aug, [facility] [address] [id number] [address] [place] [address], [place] [address] Aug, [facility] [address] [id number] [address] [place] [address] Jul, [facility] [address] [id number] [address] [place] [address] Jul, [facility] [address] [id number] [address] [place] [address] Jul, [facility] [address] [id number] [address] [place] [address] Jul, [facility] [address] [id number] [address] [place] [id number] 15 Jul, 2010 [facility] [address] [id number] [address] [place] [address] Jul, [facility] [address] [id number] [address] [place] [id number] Jun, [facility] [address] [id number] [address] [place] [address] Apr, [facility] [address] [id number] [address] [place] [address] Feb, [facility] [address] [id number] [address] [place] [address] 10 Oct, 2009 [facility] [address] [id number] [address] [place] [address] Sep, [facility] [address] [id number] [address] [place] [address] Aug, [facility] [address] [id number] [address] [place] [address] Aug, [facility] [address] [id number] [address] [place] [address] Aug, [facility] [address] [id number] [address] [place] [address] Jul, [facility] [address] [id number] [address] [place] [address] Jun, IMMUNIZATIONS No Known Immunizations SOCIAL HISTORY Never Assessed REASON FOR VISIT Pain management (chronic). Pt states that a spine center was mentioned in last appointment for referral but that did not happen. Would like to have that addre Layne Gonzalez PLAN OF CARE Activity Details Follow Up 3 Months Reason: VITAL SIGNS Height 65 in 2017-02-02 Weight 176.3 lbs 2017-02-02 Temperature 97.8 degrees Fahrenheit 2017-02-02 Heart Rate 78 bpm 2017-02-02 Respiratory Rate 20 2017-02-02 BMI 29.33 kg/m2 2017-02-02 Blood pressure systolic 136 mmHg 2017-02-02 Blood pressure diastolic 84 mmHg 2017-02-02 MEDICATIONS Medication Instructions Dosage Frequency Start Date End Date Duration S tatus Imitrex 100 MG 1 tablet by Oral rou te 1 time per day PRN may repeat dose once in 2 hours ; quantity must last 30 days 9 Active Valium 5 mg Orally Once a day, prn restlessness 1 tablet Oct, 30 days Active Tramadol HCl 50 mg Orally every 6 hrs 2 tablet as needed 6h Oct, Active Carafate 1 GM Orally 3 times a day 1 tablet 8h Active Levothyroxine Sodium 50 MCG Orally Once a day 1 tablet on an empty stomach in the morning 24h 30 Active Rabeprazole Sodium 20 MG Orally Once a day 1 tablet 24h [...]
--- OUTSIDE RECORDS SUMMARY | 2020-02-22 17:34 | XMS REPORT ---
Author Author Marion TRUJILLO [facility] eClinicalWorks Address Unknown Phone Unavailable Care Team Providers Care Business Systems Analyst Name Role Phone ZACKARY TRUJILLO Unavailable Allergies [...] Problem Acute nasopharyngitis (common cold) 460 Active Assessment Neck pain M54.2 Active Problem Excessive or frequent menstruation 626.2 [...]
--- OUTSIDE RECORDS SUMMARY | 2020-02-22 17:34 | XMS REPORT ---
Author Author Marion TRUJILLO [facility] eClinicalWorks Address Unknown Phone Unavailable Care Team Providers Care Hand Cementer Name Role Phone ZACKARY TRUJILLO CP Unavailable [...] Unspecified iron deficiency anemia 280.9 Active Assessment Sinusitis J32.9 Active Problem Thoracic or lumbosacral neuritis or radiculitis, unspe cified 724.4 Active Assessment Cervical disc disease M50.90 Active Problem Acute upper respiratory infections of [...] Start Date End Date Status Dosage Imitrex [facility] [address]-81 100 MG Oct 15, 2014 1 ta blet by Oral route 1 time per day PRN may repeat dose once in 2 hours ; quantity must last 30 days Amoxicillin [facility] [address]-19 500 MG Orally 3 times a day Jun 22, 2015 Jun 29, 2015 1 tablet Valium [facility] [address]-30 5 MG Oct 15, 2014 1 tab let by Oral route 1 time per day hs tramadol ND 0 50 mg Oral every 6 hours November 12, 2014 take 2 tablets by Rabeprazole Sodium [facility] [address]-42 20 MG Orally Once a day May 1 tablet Procedures Procedure Coding System Code Date Office Visit, Delfina Pt., Level 3 CPT-[address] 2014 Vital Signs Date/Time: Jun 22, 2015 Temperature 98.0 F Weight 175 lbs Height 65 in BMI 29.12 Index Blood Pressure Diastolic 70 mmHg Blood Pressure Systolic 122 mmHg Cardiac Monitoring Heart Rate 60 bpm Results No Known Results Summary Purpose eClinicalWorks Submission
--- OUTSIDE RECORDS SUMMARY | 2020-02-22 17:34 | XMS REPORT ---
Author Author Marion TRUJILLO [facility] Address [address] [place] [address] Care Team Providers Care Exterminator Helper Name Role Phone ZACKARY TRUJILLO Unavailable PROBLEMS Type Condition ICD9-CM Code [id number] Code Onset Dates Condition S tatus SNOMED Code Problem Cervical disc disease M50.90 Active 213447500 Problem Neck pain M54.2 Active 32599665 ALLERGIES Unknown Allergies SOCIAL HISTORY No smoking Hx information available PLAN OF CARE VITAL SIGNS MEDICATIONS Medication Instructions Dosage Frequency Start Date End Date Duration S tatus Tramadol HCl 50 MG TAKE TWO TABLETS BY MOUTH EVERY 6 HOURS 30 Active RESULTS No Results PROCEDURES No Known procedures IMMUNIZATIONS No Known Immunizations
--- OUTSIDE RECORDS SUMMARY | 2020-02-22 17:34 | XMS REPORT ---
Author Author Marion TRUJILLO Organization [facility] Address [address] [place] [address] Care Team Providers Care Motor Builder Winder Name Role Phone ZACKARY TRUJILLO Unavailable PROBLEMS Type Condition ICD9-CM Code [id number] Code Onset Dates Condition S tatus SNOMED Code Problem Cervical disc disease M50.90 Active 785000560 Problem Neck pain M54.2 Active 31758497 ALLERGIES Substance Reaction Event Type Date Status sulfa drugs Unknown Drug Allergy Oct, Active Zanaflex Unknown Drug Allergy Oct, Active Naprosyn Unknown Drug Allergy Oct, Active SOCIAL HISTORY Never Assessed PLAN OF CARE Activity Details Follow Up 3 Months Reason: VITAL SIGNS Height 65 in 2016-10-13 Weight 186.9 lbs 2016-10-13 Temperature 98.6 degrees Fahrenheit 2016-10-13 Heart Rate 94 bpm 2016-10-13 Respiratory Rate 20 2016-10-13 BMI 31.10 kg/m2 2016-10-13 Blood pressure systolic 132 mmHg 2016-10-13 Blood pressure diastolic 84 mmHg 2016-10-13 MEDICATIONS Medication Instructions Dosage Frequency Start Date End Date Duration S tatus Tramadol HCl 50 mg Orally every 6 hrs 2 tablet as needed 6h Oct, Active Imitrex 100 MG 1 tablet by Oral rou te 1 time per day PRN may repeat dose once in 2 hours ; quantity must last 30 days 9 Active Carafate 1 GM Orally 3 times a day 1 tablet 8h Active Valium 5 mg Orally Once a day, prn restlessness 1 tablet Oct, Active tramadol 50 mg Oral every 6 hours 2 tablets 6h Nov, Active Rabeprazole Sodium 20 MG Orally Once a day 1 tablet 24h 30 Active Amoxicillin 500 MG Orally 3 times a day 1 capsule 8h Oct,Oct, 07 days Active Levothyroxine Sodium 50 MCG Orally Once a day 1 tablet on an empty stomach in the morning 24h 30 Active RESULTS No Results PROCEDURES No Known procedures IMMUNIZATIONS No Known Immunizations MEDICAL (GENERAL) HISTORY Type Description Date Medical [...]
--- OUTSIDE RECORDS SUMMARY | 2020-02-22 17:34 | XMS REPORT ---
Author Author Marion TRUJILLO [facility] eClinicalWorks Address Unknown Phone Unavailable Care Team Providers Care Bottle Assembler Name Role Phone ZACKARY TRUJILLO Unavailable Allergies [...] iron deficiency anemia 280.9 Active Assessment Cervical disc disease M50.90 Active Problem Thoracic or lumbosacral neuritis or [...] November 12, 2014 take 2 tablets by Results No Known Results Summary Purpose eClinicalWorks Submission
--- OUTSIDE RECORDS SUMMARY | 2020-02-22 17:35 | XMS REPORT ---
Author Author Marion TRUJILLO [facility] eClinicalWorks Address Unknown Phone Unavailable Care Team Providers Care Bindery Helper Name Role Phone ZACKARY TRUJILLO CP Unavailable [...] Start Date End Date Status Dosage Valium [facility] [address]-59 5 mg Orally Once a day, prn restl essness Oct 15, 2014 1 tablet Carafate [facility] [address]-77 not defin ed tramadol ND 0 50 mg Oral every 6 hours November 12, 2014 2 tablets Rabeprazole Sodium [facility] 31689700472 20 MG Orally Once a day 1 tablet Imitrex [facility] 08635772952 100 MG 1 tablet by Oral route 1 time per day PRN may repeat dose once in 2 hours ; quantity must last 30 days Procedures Procedure Coding System Code Date Office Visit, Est Pt., Level 2 CPT-4 83832 J [email or web address] Vital Signs Date/Time: March 27, 2016 Cardiac Monitoring Heart Rate 83 bpm Weight 177.5 lbs Height 65 in BMI 29.53 Index Blood Pressure Diastolic 83 mmHg Blood Pressure Systolic 136 mmHg Results No Known Results Summary Purpose eClinicalWorks Submission
--- OUTSIDE RECORDS SUMMARY | 2020-02-22 17:35 | XMS REPORT ---
Author Author Marion BENITEZ [facility] IN [facility] Address [address] [place] [address] Care Team Providers Care Philosophy Lecturer Name Role Phone RAYRAY BENITEZ Unavailable PROBLEMS Type Condition ICD9-CM Code QXL68-VA Code Onset Dates Condition S tatus SNOMED Code Problem Dyspepsia R10.13 Active 287544937 Problem History of anemia Z86.2 Active 27 9189039 Problem Cervical disc disease M50.90 Active 054042460 Problem Neck pain M54.2 Active 80255817 ALLERGIES Substance Reaction Event Type Date Status sulfa drugs Unknown Drug Allergy Sep, Active Zanaflex Unknown Drug Allergy Sep, Active Naprosyn Unknown Drug Allergy Sep, Active ENCOUNTERS Encounter Location Date Diagnosis [facility] [address] [id number] [address] [place] [address] Feb, Cervical disc disease M50.90 [facility] [address] [id number] [address] [place] [address] January, Cervical disc disease M50.90 [facility] [address] [id number] [address] [place] [address] Dec, [facility] [address] [id number] [address] [place] [address] Dec, Cervical disc disease M50.90 [facility] [address] [facility] [id number] [address] [place] [address] Nov, Cervical disc disease M50.90 [facility] [address] [id number] [address] [place] [address] Nov, Cervical disc disease M50.90 [facility] [address] [id number] [address] [place] [address] Oct, Cervical disc disease M50.90 [facility] [address] [facility] [id number] [address] [place] [address] Oct, Cervical disc disease M50.90 and Acute non-recurrent maxillary sinusitis J01.00 [facility] [address] [facility] [id number] [address] [place] [address] Sep, Cervical disc disease M50.90 [facility] [address] [id number] [address] [place] [address] Sep, [facility] [address] [id number] [address] [place] [address] Sep, Fatigue, unspecified type R5 3.83 and Cough R05 [place] [address] [id number] [address] [place] [address] Aug, Cervical disc disease M50.90 [facility] [address] [id number] [address] [place] [address] Aug, Sore throat J02.9 ; Canker s ore K12.0 and History of anemia Z86.2 [place] [address] [address] Jul, Cervical disc disease M50.90 [facility] [address] [id number] [address] [place] [address] Jun, Cervical disc disease M50.90 [facility] [address] [id number] [address] [place] [address] Jun, Cervical disc disease M50.90 [facility] [address] [id number] [address] [place] [address] May, Cervical disc disease M50.90 [facility] [address] [id number] [address] [place] [address] Apr, Cervical disc disease M50.90 [facility] [address] [id number] [address] [place] [address] Apr, [facility] [address] [facility] [id number] [address] [place] [address] Feb, Cervical disc disease M50.90 [facility] [address] [facility] [id number] [address] [place] [address] January, Cervical disc disease M50.90 [facility] [address] [facility] [id number] [address] [place] [address] Nov, [facility] [address] [facility] [id number] [address] [place] [address] Nov, Cervical disc disease M50.90 [facility] [address] [facility] [id number] [address] [place] [address] Nov, Acute cystitis with hematuri a N30.01 and Dysuria R30.0 [facility] [address] [facility] [id number] [address] [place] [address] Oct, Cervical disc disease M50.90 and Acute non-recurrent frontal sinusitis J01.10 [facility] [address] [facility] [id number] [address] [place] [address] Sep, Neck pain M54.2 [facility] [address] [facility] [id number] [address] [place] [address] Sep, [facility] [address] [facility] [id number] [address] [place] [address] Aug, Cervical disc disease M50.90 [facility] [address] [facility] [id number] [address] [place] [address] Jul, [facility] [address] [facility] [id number] [address] [place] [address] Jun, [facility] [address] [facility] [id number] [address] [place] [address] May, [facility] [address] [facility] [id number] [address] [place] [address] May, Screening for diabetes melli tus Z13.1 ; Chronic fatigue R53.82 and Edema, unspecified type R60.9 [facility] [address] [id number] [address] [place] [address] Apr, Neck pain M54.2 [facility] [address] [id number] [address] [place] [address] Mar, [facility] [address] [id number] [address] [place] [address] Mar, Neck pain M54.2 [facility] [address] [id number] [address] [place] [address] Feb, Cervical disc disease M50.90 [facility] [address] [id number] [address] [place] [address] Feb, Cervical disc disease M50.90 [facility] [address] [id number] [address] [place] [address] January, [facility] [address] [id number] [address] [place] [address] January, [facility] [address] [id number] [address] [place] [address] January, Cervical disc disease M50.90 [facility] [address] [id number] [address] [place] [address] January, [facility] [address] [id number] [address] [place] [address] January, [facility] [address] [id number] [address] [place] [address] Dec, Cervical disc disease M50.90 [facility] [address] [id number] [address] [place] [address] Nov, Cervical disc disease M50.90 [facility] [address] [id number] [address] [place] [address] Oct, Cervical disc disease M50.90 [facility] [address] [id number] [address] [place] [address] Sep, Cervical disc disease M50.90 [facility] [address] [id number] [address] [place] [id number] Aug, Dental caries K02.9 and Enco unter for dental examination Z01.20 [facility] [address] [id number] [address] [place] [address] Aug, [facility] [address] [id number] [address] [place] [address] Aug, [facility] [address] [id number] [address] [place] [id number] Aug, Encounter for dental examina tion Z01.20 [facility] [address] [id number] [address] [place] [address] Jul, [facility] [address] [id number] [address] [place] [address] Jun, Sinusitis J32.9 and Cervical disc disease M50.90 [facility] [address] [id number] [address] [place] [address] Jun, [facility] [address] [id number] [address] [place] [address] 24 May, 2015 [facility] [address] [id number] [address] [place] [address] May, [facility] [address] [id number] [address] [place] [address] 22 May, 2015 [facility] [address] [id number] [address] [place] [address] May, [facility] [address] [id number] [address] [place] [address] Apr, Cervical spondylosis without myelopathy 721.0 [facility] [address] [id number] [address] [place] [address] Mar, [facility] [address] [id number] [address] [place] [address] January, Cervical spondylosis without myelopathy 721.0 [facility] [address] [id number] [address] [place] [address], [place] [address] Dec, [facility] [address] [id number] [address] [place] [address], [place] [address] Dec, [facility] [address] [id number] [address] [place] [address] Dec, [facility] [address] [id number] [address] [place] [address], [place] [address] Nov, [facility] [address] [id number] [address] [place] [address] Nov, [facility] [address] [id number] [address] [place] [address] Oct, [facility] [address] [id number] [address] [place] [address] Oct, [facility] [address] [id number] [address] [place] [address] Oct, [facility] [address] [id number] [address] [place] [address] Oct, [facility] [address] [id number] [address] [place] [address] Oct, 2014 [facility] [address] [id number] [address] [place] [address] Oct, [facility] [address] [id number] [address] [place] [address] Oct, 2014 [facility] [address] [id number] [address] [place] [address] Oct, 2014 [facility] [address] [id number] [address] [place] [address] Oct, [facility] [address] [id number] [address] [place] [address], [place] [address] Oct, [facility] [address] [id number] [address] [place] [address], [place] [address] Sep, [facility] [address] [id number] [address] [place] [address], [place] [address] Sep, [facility] [address] [id number] [address] [place] [address], [place] [address] Sep, [facility] [address] [id number] [address] [place] [address], [place] [address] Sep, [facility] [address] [id number] [address] [place] [address], [place] [address] Sep, [facility] [address] [id number] [address] [place] [address], [place] [address] Sep, [facility] [address] [id number] [address] [place] [address], [place] [address] Sep, [facility] [address] [id number] [address] [place] [address], [place] [address] Sep, [facility] [address] [id number] [address] [place] [address], [place] [address] Sep, [facility] [address] [id number] [address] [place] [address], [place] [address] Aug, [facility] [address] [id number] [address] [place] [address], [place] [address] Aug, [facility] [address] [id number] [address] [place] [address], [place] [address] Aug, [facility] [address] [id number] [address] [place] [address], [place] [address] Aug, [facility] [address] [id number] [address] [place] [address], [place] [address] Jul, [facility] [address] [id number] [address] [place] [address], [place] [address] Jul, [facility] [address] [id number] [address] [place] [address], [place] [address] Jul, [facility] [address] [id number] [address] [place] [address], [place] [address] Jul, [facility] [address] [id number] [address] [place] [address], [place] [address] Jul, [facility] [address] [id number] [address] [place] [address], [place] [address] Jul, [facility] [address] [id number] [address] [place] [address], [place] [address] Jul, [facility] [address] [id number] [address] [place] [address], [place] [address] Jul, [facility] [address] [id number] [address] [place] [address], [place] [address] Jun, [facility] [address] [id number] [address] [place] [address], [place] [address] 27 Jun, 2014 [facility] [address] [id number] [address] [place] [address], [place] [address] 20 Jun, 2014 [facility] [address] [id number] [address] [place] [address], [place] [address] 20 Jun, 2014 [facility] [address] [id number] [address] [place] [address], [place] [address] 16 Jun, 2014 [facility] [address] [id number] [address] [place] [address] 15 Jun, 2014 [facility] [address] [id number] [address] [place] [address], [place] [address] 15 Jun, 2014 [facility] [address] [id number] [address] [place] [address], [place] [address] 14 Jun, 2014 [facility] [address] [id number] [address] [place] [address], [place] [address] 14 Jun, 2014 [facility] [address] [id number] [address] [place] [address], [place] [address] Jun, [facility] [address] [id number] [address] [place] [address], [place] [address] Jun, [facility] [address] [id number] [address] [place] [address], [place] [address] May, [facility] [address] [id number] [address] [place] [address], [place] [address] May, [facility] [address] [id number] [address] [place] [address], [place] [address] May, [facility] [address] [id number] [address] [place] [address], [place] [address] May, [facility] [address] [id number] [address] [place] [address], [place] [address] May, [facility] [address] [id number] [address] [place] [address], [place] [address] Apr, [facility] [address] [id number] [address] [place] [address], [place] [address] Apr, [facility] [address] [id number] [address] [place] [address], [place] [address] Apr, [facility] [address] [id number] [address] [place] [address], [place] [address] Apr, [facility] [address] [id number] [address] [place] [address], [place] [address] Apr, [facility] [address] [id number] [address] [place] [address], [place] [address] Apr, [facility] [address] [id number] [address] [place] [address], [place] [address] Mar, [facility] [address] [id number] [address] [place] [address], [place] [address] Mar, [facility] [address] [id number] [address] [place] [address], [place] [address] Mar, [facility] [address] [id number] [address] [place] [address], [place] [address] Mar, [facility] [address] [id number] [address] [place] [address], [place] [address] Mar, [facility] [address] [id number] [address] [place] [address], [place] [address] Mar, [facility] [address] [id number] [address] [place] [address], [place] [address] Feb, [facility] [address] [id number] [address] [place] [address], [place] [address] Feb, [facility] [address] [id number] [address] [place] [address], [place] [address] Feb, [facility] [address] [id number] [address] [place] [address], [place] [address] Feb, [facility] [address] [id number] [address] [place] [address], [place] [address] Feb, [facility] [address] [id number] [address] [place] [address], [place] [address] Feb, [facility] [address] [id number] [address] [place] [address], [place] [address] Feb, [facility] [address] [id number] [address] [place] [address], [place] [address] Feb, [facility] [address] [id number] [address] [place] [address], [place] [address] January, [facility] [address] [id number] [address] [place] [address], [place] [address] January, [facility] [address] [id number] [address] [place] [address], [place] [address] January, [facility] [address] [id number] [address] [place] [address], [place] [address] January, [facility] [address] [id number] [address] [place] [address], [place] [address] January, [facility] [address] [id number] [address] [place] [address], [place] [address] January, [facility] [address] [id number] [address] [place] [address], [place] [address] January, [facility] [address] [id number] [address] [place] [address], [place] [address] January, [facility] [address] [id number] [address] [place] [address], [place] [address] Dec, [facility] [address] [id number] [address] [place] [address], [place] [address] Dec, [facility] [address] [id number] [address] [place] [address], [place] [address] Dec, [facility] [address] [id number] [address] [place] [address], [place] [address] Dec, [facility] [address] [id number] [address] [place] [address], [place] [address] Dec, [facility] [address] [id number] [address] [place] [address], [place] [address] Dec, [facility] [address] [id number] [address] [place] [address], [place] [address] Nov, [facility] [address] [id number] [address] [place] [address], [place] [address] Nov, [facility] [address] [id number] [address] [place] [address], [place] [address] Nov, [facility] [address] [id number] [address] [place] [address], [place] [address] Nov, [facility] [address] [id number] [address] [place] [address], [place] [address] Nov, [facility] [address] [id number] [address] [place] [address], [place] [address] Nov, [facility] [address] [id number] [address] [place] [address], [place] [address] Nov, [facility] [address] [id number] [address] [place] [address], [place] [address] Nov, [facility] [address] [id number] [address] [place] [address], [place] [address] Oct, [facility] [address] [id number] [address] [place] [address], [place] [address] Oct, [facility] [address] [id number] [address] [place] [address], [place] [address] Sep, [facility] [address] [id number] [address] [place] [address], [place] [address] Sep, [facility] [address] [id number] [address] [place] [address], [place] [address] Sep, [facility] [address] [id number] [address] [place] [address], [place] [address] Sep, [facility] [address] [id number] [address] [place] [address], [place] [address] Aug, [facility] [address] [id number] [address] [place] [address], [place] [address] Aug, [facility] [address] [id number] [address] [place] [address], [place] [address] Aug, [facility] [address] [id number] [address] [place] [address], [place] [address] Aug, [facility] [address] [id number] [address] [place] [address], [place] [address] Jul, [facility] [address] [id number] [address] [place] [address], [place] [address] Jul, [facility] [address] [id number] [address] [place] [address], [place] [address] Jul, [facility] [address] [id number] [address] [place] [address] [address] Jul, [facility] [address] [id number] [address] [place] [address], [place] [address] Jul, [facility] [address] [id number] [address] [place] [address], [place] [address] Jul, [facility] [address] [id number] [address] [place] [address], [place] [address] Jul, [facility] [address] [id number] [address] [place] [address], [place] [address] Jul, [facility] [address] [id number] [address] [place] [address], [place] [address] Jul, [facility] [address] [id number] [address] [place] [address], [place] [address] Jul, [facility] [address] [id number] [address] [place] [address], [place] [address] Jul, [facility] [address] [id number] [address] [place] [address], [place] [address] Jul, [facility] [address] [id number] [address] [place] [address], [place] [address] Jun, [facility] [address] [id number] [address] [place] [address] Jun, [facility] [address] [id number] [address] [place] [address] Jun, [facility] [address] [id number] [address] [place] [address] Jun, [facility] [address] [id number] [address] [place] [address], [place] [address] 16 Jun, 2013 [facility] [address] [id number] [address] [place] [address] 14 Jun, 2013 [facility] [address] [id number] [address] [place] [address] 14 Jun, 2013 [facility] [address] [id number] [address] [place] [address], [place] [address] Jun, [facility] [address] [id number] [address] [place] [address], [place] [id number] 15 May, 2013 [facility] [address] [id number] [address] [place] [address], [place] [address] May, [facility] [address] [id number] [address] [place] [address], [place] [address] May, [facility] [address] [id number] [address] [place] [address], [place] [address] Apr, [facility] [address] [id number] [address] [place] [address], [place] [address] Apr, [facility] [address] [id number] [address] [place] [address], [place] [address] Mar, [facility] [address] [id number] [address] [place] [address], [place] [address] Mar, [facility] [address] [id number] [address] [place] [address], [place] [address] Feb, [facility] [address] [id number] [address] [place] [address], [place] [address] January, [facility] [address] [id number] [address] [place] [address], [place] [address] January, [facility] [address] [id number] [address] [place] [address], [place] [address] January, [facility] [address] [id number] [address] [place] [address], [place] [address] January, [facility] [address] [id number] [address] [place] [address], [place] [address] January, [facility] [address] [id number] [address] [place] [address], [place] [address] Dec, [facility] [address] [id number] [address] [place] [address], [place] [address] Dec, [facility] [address] [id number] [address] [place] [address], [place] [address] Dec, [facility] [address] [id number] [address] [place] [address], [place] [address] Nov, [facility] [address] [id number] [address] [place] [address], [place] [address] 27 Oct, 2012 [facility] [address] [id number] [address] [place] [address], [place] [address] 18 Oct, 2012 [facility] [address] [id number] [address] [place] [address], [place] [address] Oct, [facility] [address] [id number] [address] [place] [address], [place] [address] Sep, [facility] [address] [id number] [address] [place] [address], [place] [address] 16 Sep, 2012 [facility] [address] [id number] [address] [place] [address], [place] [address] 14 Aug, 2012 [facility] [address] [id number] [address] [place] [address], [place] [address] Aug, [facility] [address] [id number] [address] [place] [address], [place] [address] Aug, [facility] [address] [id number] [address] [place] [address], [place] [address] Aug, [facility] [address] [id number] [address] [place] [address], [place] [address] Jul, [facility] [address] [id number] [address] [place] [address], [place] [address] Jul, [facility] [address] [id number] [address] [place] [address], [place] [address] Jul, [facility] [address] [id number] [address] [place] [address], [place] [address] Jul, [facility] [address] [id number] [address] [place] [address], [place] [address] Jul, [facility] [address] [id number] [address] [place] [address], [place] [address] 15 Jun, 2012 [facility] [address] [id number] [address] [place] [address], [place] [address] 15 Jun, 2012 [facility] [address] [id number] [address] [place] [address], [place] [address] 10 Jun, 2012 [facility] [address] [id number] [address] [place] [address], [place] [address] 10 Jun, 2012 [facility] [address] [id number] [address] [place] [address], [place] [address] May, [facility] [address] [id number] [address] [place] [address], [place] [address] Apr, [facility] [address] [id number] [address] [place] [address], [place] [address] Apr, [facility] [address] [id number] [address] [place] [address], [place] [address] Apr, [facility] [address] [id number] [address] [place] [address], [place] [address] Apr, [facility] [address] [id number] [address] [place] [address], [place] [address] January, [facility] [address] [id number] [address] [place] [address], [place] [address] January, [facility] [address] [id number] [address] [place] [address], [place] [address] Dec, [facility] [address] [id number] [address] [place] [address], [place] [address] Dec, [facility] [address] [id number] [address] [place] [address], [place] [address] Nov, [facility] [address] [id number] [address] [place] [address], [place] [address] Nov, [facility] [address] [id number] [address] [place] [address], [place] [address] Nov, [facility] [address] [id number] [address] [place] [address], [place] [address] Nov, [facility] [address] [id number] [address] [place] [address], [place] [address] Oct, [facility] [address] [id number] [address] [place] [address], [place] [address] Oct, [facility] [address] [id number] [address] [place] [address], [place] [address] Oct, [facility] [address] [id number] [address] [place] [address], [place] [address] Sep, [facility] [address] [id number] [address] [place] [address], [place] [address] Sep, [facility] [address] [id number] [address] [place] [address], [place] [address] Aug, [facility] [address] [id number] [address] [place] [address], [place] [address] Aug, [facility] [address] [id number] [address] [place] [address], [place] [address] Jul, [facility] [address] [id number] [address] [place] [address], [place] [address] Jul, [facility] [address] [id number] [address] [place] [address], [place] [address] Jul, [facility] [address] [id number] [address] [place] [address], [place] [address] Jun, [facility] [address] [id number] [address] [place] [address], [place] [address] 24 Jun, 2011 [facility] [address] [id number] [address] [place] [address], [place] [address] Jun, [facility] [address] [id number] [address] [place] [address], [place] [address] 10 Jun, 2011 [facility] [address] [id number] [address] [place] [address], [place] [address] 10 Jun, 2011 [facility] [address] [id number] [address] [place] [address], [place] [address] Jun, [facility] [address] [id number] [address] [place] [address], [place] [address] Aug, [facility] [address] [id number] [address] [place] [address], [place] [address] Aug, [facility] [address] [id number] [address] [place] [address], [place] [address] Aug, [facility] [address] [id number] [address] [place] [address] Jul, [facility] [address] [id number] [address] [place] [address], [place] [address] Jul, [facility] [address] [id number] [address] [place] [address], [place] [address] Jul, [facility] [address] [id number] [address] [place] [address], [place] [address] Jul, [facility] [address] [id number] [address] [place] [address], [place] [address] Jul, [facility] [address] [id number] [address] [place] [address] Jul, [facility] [address] [id number] [address] [place] [address] Jun, [facility] [address] [id number] [address] [place] [address], [place] [address] Apr, [facility] [address] [id number] [address] [place] [address] Feb, [facility] [address] [id number] [address] [place] [address], [place] [address] Oct, [facility] [address] [id number] [address] [place] [address] Sep, [facility] [address] [facility] [id number] [address] [place] [address] Aug, [facility] [address] [facility] [id number] [address] [place] [address] Aug, [facility] [address] [facility] [id number] [address] [place] [address] Aug, [facility] [address] [facility] [id number] [address] [place] [address] Jul, [facility] [address] [facility] [id number] [address] [place] [address] Jun, IMMUNIZATIONS No Known Immunizations SOCIAL HISTORY Never Assessed REASON FOR VISIT was in the [facility] 3 weeks ago for same complaint. 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 also has a cough. chynaardrgustabo PLAN OF CARE Activity Details Follow Up prn Reason: VITAL SIGNS Height 65 in 2017-09-10 Weight 178.0 lbs 2017-09-10 Temperature 98.6 degrees Fahrenheit 2017-09-10 Heart Rate 82 bpm 2017-09-10 Respiratory Rate 20 2017-09-10 BMI 29.62 kg/m2 2017-09-10 Blood pressure systolic 134 mmHg 2017-09-10 Blood pressure diastolic 82 mmHg 2017-09-10 MEDICATIONS Medication Instructions Dosage Frequency Start Date End Date Duration S tatus Rabeprazole Sodium 20 MG Orally Once a day 1 tablet 24h 30 Active Valium 5 mg Orally Once a day, prn restlessness 1 tablet Oct, 30 days Active Imitrex 100 MG 1 tablet by Oral rou te 1 time per day PRN may repeat dose once in 2 hours ; quantity must last 30 days 9 Active Magic Mouthwash Apply medicated swab to sore areas of the mouth to numb the pain every 4-6 hours as needed Dip cotton swab into medication Aug, 7 Active Tramadol HCl 50 mg Orally every 6 hrs 2 tablet as needed 6h 10 Oct, 2016 Active Carafate 1 GM Orally 3 times a day 1 tablet 8h Active Levothyroxine Sodium 50 MCG Orally Once a day 1 tablet on an empty stomach in the morning 24h 30 Not-Taking RESULTS No Results PROCEDURES Procedure Date Ordered Result Body Site HETEROPHILE ANTIBODIES Sep 10, 2017 MYCOPLASMA ANTIBODY Sep 10, 2017 VENIPUNCT, ROUTINE* Sep 10, 2017 INSTRUCTIONS MEDICATIONS ADMINISTERED No Known Medications MEDICAL [...]
--- OUTSIDE RECORDS SUMMARY | 2020-02-22 17:35 | XMS REPORT ---
Author Author Marion TRUJILLO [facility] eClinical[employer] Address Unknown Phone Unavailable Care Team Providers Care Wardrobe Consultant Name Role Phone ZACKARY TRUJILLO Unavailable Allergies [...]
--- OUTSIDE RECORDS SUMMARY | 2020-02-22 17:35 | XMS REPORT ---
Author Author Marion TRUJILLO [facility] e[employer] Address Unknown Phone Unavailable Care Team Providers Care Punch Box Tender Name Role Phone ZACKARY TRUJILLO Unavailable Allergies [...]
--- OUTSIDE RECORDS SUMMARY | 2020-02-22 17:35 | XMS REPORT ---
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 Name Role Phone JOSE SILVA Unavailable PROBLEMS Type Condition ICD9-CM Code [id number] Code Onset Dates Condition S tatus SNOMED Code Problem Dyspepsia R10.13 Active 778901925 Problem History of anemia Z86.2 Active 27 2246786 Problem Cervical disc disease M50.90 Active 800603044 Problem Neck pain M54.2 Active 10497608 ALLERGIES Substance Reaction Event Type Date Status sulfa drugs Unknown Drug Allergy Aug, Active Zanaflex Unknown Drug Allergy Aug, Active Naprosyn Unknown Drug Allergy Aug, Active ENCOUNTERS Encounter Location Date Diagnosis [facility] [address] [facility] [id number] [address] [place] [address] Feb, [facility] [address] [facility] [id number] [address] [place] [address] Feb, Cervical disc disease M50.90 [facility] [address] [facility] [id number] [address] [place] [address] January, Cervical disc disease M50.90 [facility] [address] [facility] [id number] [address] [place] [address] Dec, [facility] [address] [facility] [id number] [address] [place] [address] Dec, Cervical disc disease M50.90 [facility] [address] [facility] [id number] [address] [place] [address] Nov, Cervical disc disease M50.90 [facility] [address] [facility] [id number] [address] [place] [address] Nov, Cervical disc disease M50.90 [facility] [address] [facility] [id number] [address] [place] [id number] 15 Oct, 2017 Cervical disc disease M50.90 [facility] [address] [place] [id number] [place] [address] Oct, Cervical disc disease M50.90 and Acute non-recurrent maxillary sinusitis J01.00 [place] [address] [address] Sep, Cervical disc disease M50.90 [facility] [address] [place] [id number] [place] [address] Sep, [facility] [address] [address] Sep, Fatigue, unspecified type R5 3.83 and Cough R05 [place] [address] [address] Aug, Cervical disc disease M50.90 [facility] [address] [address] Aug, Sore throat J02.9 ; Canker s ore K12.0 and History of anemia Z86.2 [place] [address] [place] [id number] [address] [place] [address] Jul, Cervical disc disease M50.90 [place] [address] [place] [id number] [address] [place] [address] Jun, Cervical disc disease M50.90 [place] [address] [place] [id number] [address] [place] [address] Jun, Cervical disc disease M50.90 [place] [address] [place] [id number] [address] [place] [address] May, Cervical disc disease M50.90 [place] [address] [place] [id number] [address] [place] [address] Apr, Cervical disc disease M50.90 [facility] [address] [facility] [id number] [address] [place] [address] Apr, [facility] [address] [facility] [id number] [address] [place] [address] Feb, Cervical disc disease M50.90 [facility] [address] [facility] [id number] [address] [place] [address] January, Cervical disc disease M50.90 [facility] [address] [facility] [id number] [address] [place] [address] Nov, [facility] [address] [facility] [id number] [address] [place] [address] Nov, Cervical disc disease M50.90 [facility] [address] [facility] [id number] [address] [place] [address] Nov, Acute cystitis with hematuri a N30.01 and Dysuria R30.0 [facility] [address] [facility] [id number] [address] [place] [address] Oct, Cervical disc disease M50.90 and Acute non-recurrent frontal sinusitis J01.10 [facility] [address] [facility] [id number] [address] [place] [address] Sep, Neck pain M54.2 [facility] [address] [facility] [id number] [address] [place] [address] Sep, [facility] [address] [facility] [id number] [address] [place] [address] Aug, Cervical disc disease M50.90 [facility] [address] [facility] [id number] [address] [place] [address] Jul, [facility] [address] [facility] [id number] [address] [place] [address] Jun, [facility] [address] [facility] [id number] [address] [place] [address] May, [facility] [address] [id number] [address] [place] [address] May, Screening for diabetes blanchei tus Z13.1 ; Chronic fatigue R53.82 and Edema, unspecified type R60.9 [facility] [address] [id number] [address] [place] [address] Apr, Neck pain M54.2 [facility] [address] [id number] [address] [place] [address] Mar, [facility] [address] [id number] [address] [place] [address] Mar, Neck pain M54.2 [facility] [address] [id number] [address] [place] [address] Feb, Cervical disc disease M50.90 [facility] [address] [id number] [address] [place] [address] Feb, Cervical disc disease M50.90 [facility] [address] [id number] [address] [place] [address] January, [facility] [address] [id number] [address] [place] [address] January, [facility] [address] [id number] [address] [place] [address] January, Cervical disc disease M50.90 [facility] [address] [id number] [address] [place] [address] January, [facility] [address] [id number] [address] [place] [address] January, [facility] [address] [id number] [address] [place] [address] Dec, Cervical disc disease M50.90 [facility] [address] [id number] [address] [place] [address] Nov, Cervical disc disease M50.90 [facility] [address] [id number] [address] [place] [id number] 08 Oct, 2015 Cervical disc disease M50.90 [facility] [address] [id number] [address] [place] [address] Sep, Cervical disc disease M50.90 [facility] [address] [id number] [address] [place] [id number] 16 Aug, 2015 Dental caries K02.9 and Enco unter for dental examination Z01.20 [facility] [address] [id number] [address] [place] [address] Aug, [facility] [address] [id number] [address] [place] [address] Aug, [facility] [address] [id number] [address] [place] [id number] Aug, Encounter for dental examina tion Z01.20 [facility] [address] [id number] [address] [place] [address] Jul, [facility] [address] [id number] [address] [place] [address] Jun, Sinusitis J32.9 and Cervical disc disease M50.90 [facility] [address] [id number] [address] [place] [address] Jun, [facility] [address] [id number] [address] [place] [address] 24 May, 2015 [facility] [address] [id number] [address] [place] [id number] 23 May, 2015 [facility] [address] [id number] [address] [place] [address] 22 May, 2015 [facility] [address] [id number] [address] [place] [address] May, [facility] [address] [id number] [address] [place] [address] Apr, Cervical spondylosis without myelopathy 721.0 [facility] [address] [id number] [address] [place] [address] Mar, [facility] [address] [id number] [address] [place] [address] January, Cervical spondylosis without myelopathy 721.0 [facility] [address] [id number] [address] [place] [address] Dec, [facility] [address] [id number] [address] [place] [address] Dec, [facility] [address] [id number] [address] [place] [address] Dec, [facility] [address] [id number] [address] [place] [address] Nov, [facility] [address] [id number] [address] [place] [address] Nov, [facility] [address] [id number] [address] [place] [address] Oct, [facility] [address] [id number] [address] [place] [phone] Oct, [facility] [address] [id number] [address] [place] [address] Oct, [facility] [address] [id number] [address] [place] [address] Oct, [facility] [address] [id number] [address] [place] [phone] Oct, [facility] [address] [id number] [address] [place] [address] Oct, [facility] [address] [id number] [address] [place] [id number] Oct, [facility] [address] [id number] [address] [place] [phone] Oct, [facility] [address] [id number] [address] [place] [address], [place] [address] Oct, [facility] [address] [id number] [address] [place] [address], [place] [address] Oct, [facility] [address] [id number] [address] [place] [address], [place] [address] Sep, [facility] [address] [id number] [address] [place] [address], [place] [address] Sep, [facility] [address] [id number] [address] [place] [address], [place] [address] Sep, [facility] [address] [id number] [address] [place] [address], [place] [address] Sep, [facility] [address] [id number] [address] [place] [address], [place] [address] Sep, [facility] [address] [id number] [address] [place] [address], [place] [address] Sep, [facility] [address] [id number] [address] [place] [address], [place] [address] Sep, [facility] [address] [id number] [address] [place] [address], [place] [address] Sep, [facility] [address] [id number] [address] [place] [address], [place] [address] Sep, [facility] [address] [id number] [address] [place] [address], [place] [address] Aug, [facility] [address] [id number] [address] [place] [address], [place] [address] Aug, [facility] [address] [id number] [address] [place] [address], [place] [address] Aug, [facility] [address] [id number] [address] [place] [address], [place] [address] Aug, [facility] [address] [id number] [address] [place] [address], [place] [address] Jul, [facility] [address] [id number] [address] [place] [address], [place] [address] Jul, [facility] [address] [id number] [address] [place] [address], [place] [address] Jul, [facility] [address] [id number] [address] [place] [address], [place] [address] Jul, [facility] [address] [id number] [address] [place] [address], [place] [address] Jul, [facility] [address] [id number] [address] [place] [address], [place] [address] Jul, [facility] [address] [id number] [address] [place] [address], [place] [address] Jul, [facility] [address] [id number] [address] [place] [address], [place] [address] Jul, [facility] [address] [id number] [address] [place] [address], [place] [address] Jun, [facility] [address] [id number] [address] [place] [address], [place] [address] 27 Jun, 2014 [facility] [address] [id number] [address] [place] [address], [place] [address] Jun, [facility] [address] [id number] [address] [place] [address], [place] [address] 20 Jun, 2014 [facility] [address] [id number] [address] [place] [address] 16 Jun, 2014 [facility] [address] [id number] [address] [place] [address], [place] [address] 15 Jun, 2014 [facility] [address] [id number] [address] [place] [address], [place] [address] 15 Jun, 2014 [facility] [address] [id number] [address] [place] [address], [place] [address] 14 Jun, 2014 [facility] [address] [id number] [address] [place] [address], [place] [address] 14 Jun, 2014 [facility] [address] [id number] [address] [place] [address], [place] [address] Jun, [facility] [address] [id number] [address] [place] [address], [place] [address] Jun, [facility] [address] [id number] [address] [place] [address], [place] [address] May, [facility] [address] [id number] [address] [place] [address], [place] [address] May, [facility] [address] [id number] [address] [place] [address], [place] [address] May, [facility] [address] [id number] [address] [place] [address], [place] [address] May, [facility] [address] [id number] [address] [place] [address], [place] [address] May, [facility] [address] [id number] [address] [place] [address], [place] [address] Apr, [facility] [address] [id number] [address] [place] [address], [place] [address] Apr, [facility] [address] [id number] [address] [place] [address], [place] [address] Apr, [facility] [address] [id number] [address] [place] [address], [place] [address] Apr, [facility] [address] [id number] [address] [place] [address], [place] [address] Apr, [facility] [address] [id number] [address] [place] [address], [place] [address] Apr, [facility] [address] [id number] [address] [place] [address], [place] [address] Mar, [facility] [address] [id number] [address] [place] [address], [place] [address] Mar, [facility] [address] [id number] [address] [place] [address], [place] [address] Mar, [facility] [address] [id number] [address] [place] [address], [place] [address] Mar, [facility] [address] [id number] [address] [place] [address], [place] [address] Mar, [facility] [address] [id number] [address] [place] [address], [place] [address] Mar, [facility] [address] [id number] [address] [place] [address], [place] [address] Feb, [facility] [address] [id number] [address] [place] [address], [place] [address] Feb, [facility] [address] [id number] [address] [place] [address], [place] [address] Feb, [facility] [address] [id number] [address] [place] [address], [place] [address] Feb, [facility] [address] [id number] [address] [place] [address], [place] [address] Feb, [facility] [address] [id number] [address] [place] [address], [place] [address] Feb, [facility] [address] [id number] [address] [place] [address], [place] [address] Feb, [facility] [address] [id number] [address] [place] [address], [place] [address] Feb, [facility] [address] [id number] [address] [place] [address], [place] [address] January, [facility] [address] [id number] [address] [place] [address], [place] [address] January, [facility] [address] [id number] [address] [place] [address], [place] [address] January, [facility] [address] [id number] [address] [place] [address], [place] [address] January, [facility] [address] [id number] [address] [place] [address], [place] [address] January, [facility] [address] [id number] [address] [place] [address], [place] [address] January, [facility] [address] [id number] [address] [place] [address], [place] [address] January, [facility] [address] [id number] [address] [place] [address], [place] [address] January, [facility] [address] [id number] [address] [place] [address], [place] [address] Dec, [facility] [address] [id number] [address] [place] [address], [place] [address] Dec, [facility] [address] [id number] [address] [place] [address], [place] [address] Dec, [facility] [address] [id number] [address] [place] [address], [place] [address] Dec, [facility] [address] [id number] [address] [place] [address], [place] [address] Dec, [facility] [address] [id number] [address] [place] [address], [place] [address] Dec, [facility] [address] [id number] [address] [place] [address], [place] [address] Nov, [facility] [address] [id number] [address] [place] [address], [place] [address] Nov, [facility] [address] [id number] [address] [place] [address], [place] [address] Nov, [facility] [address] [id number] [address] [place] [address], [place] [address] Nov, [facility] [address] [id number] [address] [place] [address], [place] [address] Nov, [facility] [address] [id number] [address] [place] [address], [place] [address] Nov, [facility] [address] [id number] [address] [place] [address], [place] [address] Nov, [facility] [address] [id number] [address] [place] [address], [place] [address] Nov, [facility] [address] [id number] [address] [place] [address], [place] [address] Oct, [facility] [address] [id number] [address] [place] [address], [place] [address] Oct, [facility] [address] [id number] [address] [place] [address], [place] [address] Sep, [facility] [address] [id number] [address] [place] [address], [place] [address] Sep, [facility] [address] [id number] [address] [place] [address], [place] [address] Sep, [facility] [address] [id number] [address] [place] [address], [place] [address] Sep, [facility] [address] [id number] [address] [place] [address], [place] [address] Aug, [facility] [address] [id number] [address] [place] [address], [place] [address] Aug, [facility] [address] [id number] [address] [place] [address], [place] [address] Aug, [facility] [address] [id number] [address] [place] [address], [place] [address] Aug, [facility] [address] [id number] [address] [place] [address], [place] [address] Jul, [facility] [address] [id number] [address] [place] [address], [place] [address] Jul, [facility] [address] [id number] [address] [place] [address], [place] [address] Jul, [facility] [address] [id number] [address] [place] [address], [place] [address] Jul, [facility] [address] [id number] [address] [place] [address], [place] [address] Jul, [facility] [address] [id number] [address] [place] [address], [place] [address] Jul, [facility] [address] [id number] [address] [place] [address], [place] [address] Jul, [facility] [address] [id number] [address] [place] [address], [place] [address] Jul, [facility] [address] [id number] [address] [place] [address], [place] [address] Jul, [facility] [address] [id number] [address] [place] [address], [place] [address] Jul, [facility] [address] [id number] [address] [place] [address], [place] [address] Jul, [facility] [address] [id number] [address] [place] [address], [place] [address] Jul, [facility] [address] [id number] [address] [place] [address], [place] [address] Jun, [facility] [address] [id number] [address] [place] [address] Jun, [facility] [address] [id number] [address] [place] [address] Jun, [facility] [address] [id number] [address] [place] [address], [place] [address] Jun, [facility] [address] [id number] [address] [place] [id number] 16 Jun, 2013 [facility] [address] [id number] [address] [place] [id number] 14 Jun, 2013 [facility] [address] [id number] [address] [place] [address], [place] [address] 14 Jun, 2013 [facility] [address] [id number] [address] [place] [address], [place] [address] Jun, [facility] [address] [id number] [address] [place] [address], [place] [address] 15 May, 2013 [facility] [address] [id number] [address] [place] [address], [place] [address] May, [facility] [address] [id number] [address] [place] [address], [place] [address] May, [facility] [address] [id number] [address] [place] [address], [place] [address] Apr, [facility] [address] [id number] [address] [place] [address], [place] [address] Apr, [facility] [address] [id number] [address] [place] [address], [place] [address] Mar, [facility] [address] [id number] [address] [place] [address], [place] [address] Mar, [facility] [address] [id number] [address] [place] [address], [place] [address] Feb, [facility] [address] [id number] [address] [place] [address], [place] [address] January, [facility] [address] [id number] [address] [place] [address], [place] [address] January, [facility] [address] [id number] [address] [place] [address], [place] [address] January, [facility] [address] [id number] [address] [place] [address], [place] [address] January, [facility] [address] [id number] [address] [place] [address], [place] [address] January, [facility] [address] [id number] [address] [place] [address], [place] [address] Dec, [facility] [address] [id number] [address] [place] [address], [place] [address] 17 Dec, 2012 [facility] [address] [id number] [address] [place] [address], [place] [address] 02 Dec, 2012 [facility] [address] [id number] [address] [place] [address], [place] [address] 18 Nov, 2012 [facility] [address] [id number] [address] [place] [address], [place] [address] 27 Oct, 2012 [facility] [address] [id number] [address] [place] [address], [place] [address] 18 Oct, 2012 [facility] [address] [id number] [address] [place] [address], [place] [address] 15 Oct, 2012 [facility] [address] [id number] [address] [place] [address], [place] [address] 18 Sep, 2012 [facility] [address] [id number] [address] [place] [address], [place] [address] 16 Sep, 2012 [facility] [address] [id number] [address] [place] [address], [place] [address] 14 Aug, 2012 [facility] [address] [id number] [address] [place] [address], [place] [address] 14 Aug, 2012 [facility] [address] [id number] [address] [place] [address], [place] [address] 11 Aug, 2012 [facility] [address] [id number] [address] [place] [address], [place] [address] 11 Aug, 2012 [facility] [address] [id number] [address] [place] [address], [place] [address] Jul, [facility] [address] [id number] [address] [place] [address], [place] [address] Jul, [facility] [address] [id number] [address] [place] [address], [place] [address] Jul, [facility] [address] [id number] [address] [place] [address], [place] [address] Jul, [facility] [address] [id number] [address] [place] [address], [place] [address] Jul, [facility] [address] [id number] [address] [place] [address], [place] [address] 15 Jun, 2012 [facility] [address] [id number] [address] [place] [address], [place] [address] 15 Jun, 2012 [facility] [address] [id number] [address] [place] [address], [place] [address] Jun, [facility] [address] [id number] [address] [place] [address], [place] [address] Jun, [facility] [address] [id number] [address] [place] [address], [place] [address] May, [facility] [address] [id number] [address] [place] [address], [place] [address] Apr, [facility] [address] [id number] [address] [place] [address], [place] [address] Apr, [facility] [address] [id number] [address] [place] [address], [place] [address] Apr, [facility] [address] [id number] [address] [place] [address], [place] [address] Apr, [facility] [address] [id number] [address] [place] [address], [place] [address] January, [facility] [address] [id number] [address] [place] [address], [place] [address] January, [facility] [address] [id number] [address] [place] [address], [place] [address] Dec, [facility] [address] [id number] [address] [place] [address], [place] [address] Dec, [facility] [address] [id number] [address] [place] [address], [place] [address] Nov, [facility] [address] [id number] [address] [place] [address], [place] [address] Nov, [facility] [address] [id number] [address] [place] [address], [place] [address] Nov, [facility] [address] [id number] [address] [place] [address], [place] [address] Nov, [facility] [address] [id number] [address] [place] [address], [place] [address] Oct, [facility] [address] [id number] [address] [place] [address], [place] [address] Oct, [facility] [address] [id number] [address] [place] [address], [place] [address] Oct, [facility] [address] [id number] [address] [place] [address], [place] [address] Sep, [facility] [address] [id number] [address] [place] [address], [place] [address] Sep, [facility] [address] [id number] [address] [place] [address], [place] [address] Aug, [facility] [address] [id number] [address] [place] [address], [place] [address] Aug, [facility] [address] [id number] [address] [place] [address], [place] [address] Jul, [facility] [address] [id number] [address] [place] [address], [place] [address] Jul, [facility] [address] [id number] [address] [place] [address], [place] [address] Jul, [facility] [address] [id number] [address] [place] [address], [place] [address] Jun, [facility] [address] [id number] [address] [place] [address], [place] [address] 24 Jun, 2011 [facility] [address] [id number] [address] [place] [address], [place] [address] Jun, [facility] [address] [id number] [address] [place] [address], [place] [address] Jun, [facility] [address] [id number] [address] [place] [address], [place] [address] Jun, [facility] [address] [id number] [address] [place] [address], [place] [address] Jun, [facility] [address] [id number] [address] [place] [address], [place] [address] Aug, [facility] [address] [id number] [address] [place] [address], [place] [address] Aug, [facility] [address] [id number] [address] [place] [address], [place] [address] Aug, [facility] [address] [id number] [address] [place] [address], [place] [address] Jul, [facility] [address] [id number] [address] [place] [address], [place] [address] Jul, [facility] [address] [id number] [address] [place] [address], [place] [address] Jul, [facility] [address] [id number] [address] [place] [address], [place] [address] Jul, [facility] [address] [id number] [address] [place] [address] Jul, [facility] [address] [id number] [address] [place] [address] Jul, [facility] [address] [id number] [address] [place] [address], [place] [address] Jun, [facility] [address] [id number] [address] [place] [address] Apr, [facility] [address] [id number] [address] [place] [address], [place] [address] Feb, [facility] [address] [id number] [address] [place] [address] Oct, [facility] [address] [facility] [id number] [address] [place] [address] Sep, [facility] [address] [facility] [id number] [address] [place] [address] Aug, [facility] [address] [facility] [id number] [address] [place] [address] Aug, [facility] [address] [facility] [id number] [address] [place] [address] Aug, [facility] [address] [facility] [id number] [address] [place] [address] Jul, [facility] [address] [facility] [id number] [address] [place] [address] Jun, IMMUNIZATIONS No Known Immunizations SOCIAL HISTORY Never Assessed REASON FOR VISIT sore throat, denies cough. had this for 10 days. also has some neck pain for the past 3 days. vera PLAN OF CARE Activity Details Follow Up if not improving with PCP or reg follow up Reason: VITAL SIGNS Height 65 in 2017-08-18 Weight 178.6 lbs 2017-08-18 Temperature 97.8 degrees Fahrenheit 2017-08-18 Heart Rate 80 bpm 2017-08-18 Respiratory Rate 20 2017-08-18 BMI 29.72 kg/m2 2017-08-18 Blood pressure systolic 138 mmHg 2017-08-18 Blood pressure diastolic 80 mmHg 2017-08-18 MEDICATIONS Medication Instructions Dosage Frequency Start Date End Date Duration S mario Rabeprazole Sodium 20 MG Orally Once a day 1 tablet 24h 30 Active Valium 5 mg Orally Once a day, prn restlessness 1 tablet Oct, 30 days Active Imitrex 100 MG 1 tablet by Oral rou te 1 time per day PRN may repeat dose once in 2 hours ; quantity must last 30 days 9 Active Tramadol HCl 50 mg Orally every 6 hrs 2 tablet as needed 6h Oct, Active Levothyroxine Sodium 50 MCG Orally Once a day 1 tablet on an empty stomach in the morning 24h 30 Not-Taking Magic Mouthwash Apply medicated swab to sore areas of the mouth to numb the pain every 4-6 hours as needed Dip cotton swab into medication Aug, 7 Active Carafate 1 GM Orally 3 times a day 1 tablet 8h Active RESULTS Name Result Date Reference Range HEMOGLOBIN (IN HOUSE) 2017-08-18 HEMOGLOBIN 10.7 11.5 - 16 gm/dL Lot # [id number] Exp date STREP A (IN HOUSE) 2017-08-18 STREP A negative Control + Lot # [id number] Exp date 08 02 2018 PROCEDURES Procedure Date Ordered Result Body Site STREP A ASSAY W/OPTIC Aug 18, 2017 HEMOGLOBIN Aug 18, 2017 INSTRUCTIONS MEDICATIONS ADMINISTERED No Known Medications [...]
--- OUTSIDE RECORDS SUMMARY | 2020-02-22 17:35 | XMS REPORT ---
Author Author Marion TRUJILLO [facility] [employer] Address Unknown Phone Unavailable Care Team Providers Care Supervisor Wood Crew Name Role Phone ZACKARY TRUJILLO Unavailable Allergies [...]
[2020-02-22 17:36] LABS: BILIRUBIN,TOTAL 0.4 MG/DL (0.1-1.0)
--- OUTSIDE RECORDS SUMMARY | 2020-02-22 17:36 | XMS REPORT ---
Author Author Marion TRUJILLO Organization [facility] Address [address] [place] [address] Care Team Providers Care Clinical Trial Educator Name Role Phone ZACKARY TRUJILLO Unavailable PROBLEMS Type Condition ICD9-CM Code [id number] Code Onset Dates Condition S tatus SNOMED Code Problem Neck pain M54.2 Active 17629222 Assessment Screening for diabetes mellitus Z13.1 May, Active 981991505 Assessment Chronic fatigue R53.82 May, Active 07924440 Assessment Edema, unspecified type R60.9 May, Ac tive 225573874 ALLERGIES Substance Reaction Event Type Date Status sulfa drugs Unknown Drug Allergy May, Active Zanaflex Unknown Drug Allergy May, Active Naprosyn Unknown Drug Allergy May, Active SOCIAL HISTORY No smoking Hx information available PLAN OF CARE VITAL SIGNS Height 65 in 2016-05-11 Weight 187.5 lbs 2016-05-11 Heart Rate 104 bpm 2016-05-11 Respiratory Rate 18 2016-05-11 BMI 31.20 kg/m2 2016-05-11 Blood pressure systolic 128 mmHg 2016-05-11 Blood pressure diastolic 88 mmHg 2016-05-11 MEDICATIONS Medication Instructions Dosage Frequency Start Date End Date Duration S tatus Carafate 1 GM Orally 3 times a day 1 tablet 8h Active tramadol 50 mg Oral every 6 hours 2 tablets 6h Nov, Active Valium 5 mg Orally Once a day, prn restlessness 1 tablet Oct, Active Rabeprazole Sodium 20 MG Orally Once a day 1 tablet 24h 30 Active Imitrex 100 MG 1 tablet by Oral rou te 1 time per day PRN may repeat dose once in 2 hours ; quantity must last 30 days 1 Active RESULTS Name Result Date Reference Range TSH W/ FREE T4 2016-05-11 TSH 10.490 0.450-4.500 T4,Free(Direct) 0.77 0.82-1.77 CBC 2016-05-11 WBC 6.5 3.4-10.8 RBC 4.33 3.77-5.28 Hemoglobin 12.3 11.1-15.9 Hematocrit 36.8 34.0-46.6 MCV 85 79-97 MCH 28.4 26.6-33.0 MCHC 33.4 31.5-35.7 RDW 15.0 12.3-15.4 Platelets 336 150-379 Neutrophils 50 Lymphs 39 Monocytes 7 Eos 3 Basos 1 Neutrophils (Absolute) 3.3 1.4-7.0 Lymphs (Absolute) 2.5 0.7-3.1 Monocytes(Absolute) 0.4 0.1-0.9 Eos (Absolute) 0.2 0.0-0.4 Baso (Absolute) 0.1 0.0-0.2 Immature Granulocytes 0 Immature Grans (Abs) 0.0 0.0-0.1 CMP 2016-05-11 Glucose, Serum 100 65-99 BUN 12 6-24 Creatinine, Serum 0.80 0.57-1.00 eGFR If NonAfricn Am 89 >59 eGFR If Africn Am 103 >59 BUN/Creatinine Ratio 15 9-23 Sodium, Serum 138 134-144 Potassium, Serum 4.4 3.5-5.2 Chloride, Serum 99 97-108 Carbon Dioxide, Total 22 18-29 Calcium, Serum 9.4 8.7-10.2 Protein, Total, Serum 6.6 6.0-8.5 Albumin, Serum 4.1 3.5-5.5 Globulin, Total 2.5 1.5-4.5 A/G Ratio 1.6 1.1-2.5 Bilirubin, Total <0.2 0.0-1.2 Alkaline Phosphatase, S 47 39-117 AST (SGOT) 29 0-40 ALT (SGPT) 29 0-32 GLUCOSE FINGERSTICK (IN HOUSE) 2016-05-11 GLU FINGERSTICK 101 PC Lot # [id number] Exp date 10/2016 PROCEDURES Procedure Date Ordered Related Diagnosis Body Site GLUCOSE BLOOD TEST May 11, 2016 COMPLETE CBC W/AUTO DIFF WBC May 11, 2016 Office Visit, Est Pt., Level 4 May 11, 2016 ASSAY OF FREE THYROXINE May 11, 2016 ASSAY THYROID STIM HORMONE May 11, 2016 VENIPUNCT, ROUTINE* May 11, 2016 COMPREHEN METABOLIC PANEL May 11, 2016 IMMUNIZATIONS No Known Immunizations
--- OUTSIDE RECORDS SUMMARY | 2020-02-22 17:36 | XMS REPORT | Continuity of Care Document ---
Demographics Preferred Language Unknown Marital Status Unknown Denominational Affiliation Unknown Race Unknown Ethnic Group Unknown Author Organization Unknown Address Unknown Phone Unavailable Allergies Active Description Code Type Severity Reaction Onset Reported/Identified Relationship to Patient Clinical Status Yes latex [id number] Drug Allergy Unknown SWELLING 05/30/2006 Yes theophylline [id number] Drug Allergy Unknown N V 05/30/2006 Yes Naprosyn 500 mg tablet Drug Allergy N/A N/A 06/13/2014 Yes Zanaflex 4 mg capsule Drug Allergy N/A N/A 06/13/2014 Medications There is no data. Problems Date Dx Coded Attending Type Code Diagnosis Diagnosed By 03/10/2009 SHABNAM CORREA APRN 72 4.5 BACKACHE UNSPECIFIED 03/10/2009 JOVAN STONE DO 724.5 BACKACHE UNSPECIFIED 03/10/2009 SHABNAM CORREA APRN 72 4.5 BACKACHE UNSPECIFIED 03/10/2009 ZAYNAB VALVERDE APRN 724.5 BACKACHE UNSPECIFIED 03/10/2009 SHABNAM CORREA APRN 72 4.5 BACKACHE UNSPECIFIED 03/10/2009 JOVAN STONE DO 724.5 BACKACHE UNSPECIFIED 03/10/2009 SANTOS PARSONS MD 72 4.5 BACKACHE UNSPECIFIED 03/10/2009 ZACKARY TRUJILLO MD 724.5 BACKACHE UNSPECIFIED 03/10/2009 ZACKARY TRUJILLO MD 724.5 BACKACHE UNSPECIFIED 03/10/2009 SHABNAM CORREA APRN 72 4.5 BACKACHE UNSPECIFIED 03/10/2009 SHABNAM CORREA APRN 72 4.5 BACKACHE UNSPECIFIED 03/10/2009 JOVAN STONE DO 724.5 BACKACHE UNSPECIFIED 03/10/2009 SHABNAM CORREA APRN 72 4.5 BACKACHE UNSPECIFIED 03/10/2009 ZACKARY TRUJILLO MD 724.5 BACKACHE UNSPECIFIED 03/10/2009 ZACKARY TRUJILLO MD 724.5 BACKACHE UNSPECIFIED 03/10/2009 ZACKARY TRUJLILO MD 724.5 BACKACHE UNSPECIFIED 03/10/2009 JOSE SILVA APRN 724 .5 BACKACHE UNSPECIFIED 03/10/2009 STEPHEN ASH MD 724.5 BACKACHE UNSPECIFIED 03/10/2009 ZACKARY TRUJILLO MD 724.5 BACKACHE UNSPECIFIED 03/10/2009 ZACKARY TRUJILLO MD 724.5 BACKACHE UNSPECIFIED 04/24/2009 SHABNAM CORREA APRN 47 7.9 Allergic Rhinitis Cause Unspecified 04/24/2009 JOVAN STONE DO 477.9 Allergic Rhinitis Cause Unspecified 04/24/2009 SHABNAM CORREA APRN 47 7.9 Allergic Rhinitis Cause Unspecified 04/24/2009 ZAYNAB VALVERDE APRN 477.9 Allergic Rhinitis Cause Unspecified 04/24/2009 SHABNAM CORREA APRN 47 7.9 Allergic Rhinitis Cause Unspecified 04/24/2009 STONE JOVAN SMITH 477.9 Allergic Rhinitis Cause Unspecified 04/24/2009 SANTOS PARSONS MD 47 7.9 Allergic Rhinitis Cause Unspecified 04/24/2009 ZACKARY TRUJILLO MD 477.9 Allergic Rhinitis Cause Unspecified 04/24/2009 ZACKARY TRUJILLO MD 477.9 Allergic Rhinitis Cause Unspecified 04/24/2009 SHABNAM CORREA APRN 47 7.9 Allergic Rhinitis Cause Unspecified 04/24/2009 SHABNAM CORREA APRN 47 7.9 Allergic Rhinitis Cause Unspecified 04/24/2009 JOVAN STONE DO 477.9 Allergic Rhinitis Cause Unspecified 04/24/2009 SHABNAM CORREA APRN 47 7.9 Allergic Rhinitis Cause Unspecified 04/24/2009 ZACKARY TRUJILLO MD 477.9 Allergic Rhinitis Cause Unspecified 04/24/2009 ZACKARY TRUJILLO MD 477.9 Allergic Rhinitis Cause Unspecified 04/24/2009 ZACKARY TRUJILLO MD 477.9 Allergic Rhinitis Cause Unspecified 04/24/2009 JOSE SILVA APRN 477 .9 Allergic Rhinitis Cause Unspecified 04/24/2009 STEHPEN ASH MD 477.9 Allergic Rhinitis Cause Unspecified 04/24/2009 ZACKARY TRUJILLO MD 477.9 Allergic Rhinitis Cause Unspecified 04/24/2009 ZACKARY TRUJILLO MD7.9 Allergic Rhinitis Cause Unspecified 05/25/2009 SHABNAM CORREA APRN 535.50 Gastritis Unspec 05/25/2009 SHABNAM CORREA APRN 780.52 Insomnia Unspecified 05/25/2009 CHASE SMITH JVOAN K 535.50 Gastritis Unspec 05/25/2009 STONE DO, JOVAN K 780.52 Insomnia Unspecified 05/25/2009 SHABNAM CORREA APRN 535.50 Gastritis Unspec 05/25/2009 SHABNAM CORREA APRN 780.52 Insomnia Unspecified 05/25/2009 ZAYNAB VALVERDE APRN R 535.50 Gastritis Unspec 05/25/2009 LEONEL VALVERDE APRNRICIA R 780.52 Insomnia Unspecified 05/25/2009 SHABNAM CORREA APRN 535.50 Gastritis Unspec 05/25/2009 SHABNAM CORREA APRN 780.52 Insomnia Unspecified 05/25/2009 JEN STONE DOA K 535.50 Gastritis Unspec 05/25/2009 CHASE SMITH JOVAN K 780.52 Insomnia Unspecified 05/25/2009 SANTOS PARSONS MD 535.50 Gastritis Unspec 05/25/2009 SANTOS PARSONS MD 780.52 Insomnia Unspecified 05/25/2009 ZACKARY TRUJILLO MD 535.5 0 Gastritis Unspec 05/25/2009 ZACKARY TRUJILLO MD 780.5 2 Insomnia Unspecified 05/25/2009 ZACKARY TRUJILLO MD 535.5 0 Gastritis Unspec 05/25/2009 ZACKARY TRUJILLO MD 780.5 2 Insomnia Unspecified 05/25/2009 SHABNAM CORREA APRN 535.50 Gastritis Unspec 05/25/2009 SHABNAM CORREA APRN 780.52 Insomnia Unspecified 05/25/2009 SHABNAM CORREA APRN 535.50 Gastritis Unspec 05/25/2009 SHABNAM CORREA APRN 780.52 Insomnia Unspecified 05/25/2009 JEN STONE DOA K 535.50 Gastritis Unspec 05/25/2009 JEN STONE DOA K 780.52 Insomnia Unspecified 05/25/2009 SHABNAM CORREA APRN 535.50 Gastritis Unspec 05/25/2009 SHABNAM CORREA APRN 780.52 Insomnia Unspecified 05/25/2009 ZACKARY TRUJILLO MD 535.5 0 Gastritis Unspec 05/25/2009 ZACKARY TRUJILLO MD 780.5 2 Insomnia Unspecified 05/25/2009 ZACKARY TRUJILLO MD 535.5 0 Gastritis Unspec 05/25/2009 ZACKARY TRUJILLO MD 780.5 2 Insomnia Unspecified 05/25/2009 ZACKARY TRUJILLO MD 535.5 0 Gastritis Unspec 05/25/2009 ZACKARY TRUJILLO MD 780.5 2 Insomnia Unspecified 05/25/2009 RICARDO WOOD LATHER, JOSE L 535 .50 Gastritis Unspec 05/25/2009 MADL WOOD LATHER, JOSE L 780 .52 Insomnia Unspecified 05/25/2009 NILSA WHALEN, STEPHEN 535.50 Gastritis Unspec 05/25/2009 NILSA WHLAEN, STEPHEN 780.52 Insomnia Unspecified 05/25/2009 ZACKARY TRUJILLO MD 535.5 0 Gastritis Unspec 05/25/2009 ZACKARY TRUJILLO MD 780.5 2 Insomnia Unspecified 05/25/2009 ZACKARY TRUJILLO MD 535.5 0 Gastritis Unspec 05/25/2009 ZACKARY TRUJILLO MD 780.5 2 Insomnia Unspecified 08/20/2009 SHABNAM CORREA APRN 78 8.1 Dysuria 08/20/2009 SHABNAM CORREA APRN 84 0.9 Sprain/strain Shoulder/arm 08/20/2009 CHASE SMITH, JOVAN K 788.1 Dysuria 08/20/2009 STONE DO, JOVAN K 840.9 Sprain/strain Shoulder/arm 08/20/2009 SHABNAM CORREA APRN 78 8.1 Dysuria 08/20/2009 SHABNAM CORREA APRN 84 0.9 Sprain/strain Shoulder/arm 08/20/2009 NICOLLE KEENE ZAYNAB R 788.1 Dysuria 08/20/2009 LEONEL VALVERDE APRNRICIA R 840.9 Sprain/strain Shoulder/arm 08/20/2009 SHABNAM CORREA APRN T 78 8.1 Dysuria 08/20/2009 SHABNAM CORREA APRN 84 0.9 Sprain/strain Shoulder/arm 08/20/2009 STONE DO, JOVAN K 788.1 Dysuria 08/20/2009 STONE DO, JOVAN K 840.9 Sprain/strain Shoulder/arm 08/20/2009 ISSA WHALEN, SANTOS Workman 78 8.1 Dysuria 08/20/2009 ISSA WHALEN, SANTOS Workman 84 0.9 Sprain/strain Shoulder/arm 08/20/2009 ZACKARY TRUJILLO MD 788.1 Dysuria 08/20/2009 ZACKARY TRUJILLO MD 840.9 Sprain/strain Shoulder/arm 08/20/2009 ZACKARY TRUJILLO MD 788.1 Dysuria 08/20/2009 ZACKARY TRUJILLO MD 840.9 Sprain/strain Shoulder/arm 08/20/2009 SHABNAM CORREA APRN 78 8.1 Dysuria 08/20/2009 SHABNAM CORREA APRN 84 0.9 Sprain/strain Shoulder/arm 08/20/2009 SHABNAM CORREA APRN 78 8.1 Dysuria 08/20/2009 SHABNAM CORREA APRN 84 0.9 Sprain/strain Shoulder/arm 08/20/2009 STONE DO, JOVAN K 788.1 Dysuria 08/20/2009 STONE DO, JOVAN K 840.9 Sprain/strain Shoulder/arm 08/20/2009 SHABNAM CORREA APRN 78 8.1 Dysuria 08/20/2009 SHABNAM CORREA APRN 84 0.9 Sprain/strain Shoulder/arm 08/20/2009 ZACKARY TRUJILLO MD 788.1 Dysuria 08/20/2009 ZACKARY TRUJILLO MD 840.9 Sprain/strain Shoulder/arm 08/20/2009 ZACKARY TRUJILLO MD 788.1 Dysuria 08/20/2009 ZACKARY TRUJILLO MD 840.9 Sprain/strain Shoulder/arm 08/20/2009 ZACKARY TRUJILLO MD 788.1 Dysuria 08/20/2009 RONNIE WHALEN, ZACKARY 840.9 Sprain/strain Shoulder/arm 08/20/2009 JOSE SILVA APRN L 788 .1 Dysuria 08/20/2009 JOSE SILVA APRN L 840 .9 Sprain/strain Shoulder/arm 08/20/2009 NILSA WHALEN, STEPHEN 788.1 Dysuria 08/20/2009 NILSA WHALEN, STEPHEN 840.9 Sprain/strain Shoulder/arm 08/20/2009 ZACKARY TRUJILLO MD 788.1 Dysuria 08/20/2009 ZACKARY TRUJILLO MD 840.9 Sprain/strain Shoulder/arm 08/20/2009 ZACKARY TRUJILLO MD 788.1 Dysuria 08/20/2009 ZACKARY TRUJILLO MD 840.9 Sprain/strain Shoulder/arm 09/15/2009 SHABNAM CORREA APRN 78 4.0 Headache 09/15/2009 STONE DO, JOVAN K 784.0 Headache 09/15/2009 SHABNAM CORREA APRN 78 4.0 Headache 09/15/2009 ZAYNAB VALVERDE APRN R 784.0 Headache 09/15/2009 SHABNAM CORREA APRN T 78 4.0 Headache 09/15/2009 STONE DO, JOVAN K 784.0 Headache 09/15/2009 ISSA WHALEN, SANTOS M 78 4.0 Headache 09/15/2009 RONNIE WHALEN, ZACKARY 784.0 Headache 09/15/2009 RONNIE WHALEN, ZACKARY 784.0 Headache 09/15/2009 SHABNAM CORREA APRN 78 4.0 Headache 09/15/2009 SHABNAM CORREA APRN 78 4.0 Headache 09/15/2009 STONE DO, JOVAN K 784.0 Headache 09/15/2009 SHABNAM CORREA APRN 78 4.0 Headache 09/15/2009 RONNIE WHALEN, ZACKARY 784.0 Headache 09/15/2009 RONNIE WHALEN, ZACKARY 784.0 Headache 09/15/2009 RONNIE WHALEN, ZACKARY 784.0 Headache 09/15/2009 RICARDO KEENE, JOSE L 784 .0 Headache 09/15/2009 NILSA WHALEN, STEPHEN 784.0 Headache 09/15/2009 RONNIE WHALEN, ZACKARY 784.0 Headache 09/15/2009 RONNIE WHALEN, ZACKARY 784.0 Headache 10/13/2009 SHABNAM CORREA APRN T 46 1.9 Sinusitis Acute 10/13/2009 STONE DO, JOVAN K 461.9 Sinusitis Acute 10/13/2009 SHABNAM CORREA APRN 46 1.9 Sinusitis Acute 10/13/2009 ZAYNAB VALVERDE APRN R 461.9 Sinusitis Acute 10/13/2009 SHABNAM CORREA APRN 46 1.9 Sinusitis Acute 10/13/2009 STONE DO, JOVAN K 461.9 Sinusitis Acute 10/13/2009 ISSA WHALEN, SANTOS M 46 1.9 Sinusitis Acute 10/13/2009 ZACKARY TRUJILLO MD 461.9 Sinusitis Acute 10/13/2009 ZACKARY TRUJILLO MD 461.9 Sinusitis Acute 10/13/2009 SHABNAM CORREA APRN 46 1.9 Sinusitis Acute 10/13/2009 SHABNAM CORREA APRN 46 1.9 Sinusitis Acute 10/13/2009 STONE DO, JOVAN K 461.9 Sinusitis Acute 10/13/2009 SHABNAM CORREA APRN 46 1.9 Sinusitis Acute 10/13/2009 RONNIE WHALEN, ZACKARY 461.9 Sinusitis Acute 10/13/2009 ZACKARY TRUJILLO MD 461.9 Sinusitis Acute 10/13/2009 RONNIE WHALEN, ZACKARY 461.9 Sinusitis Acute 10/13/2009 RICARDO KEENE JOSE [place] 461 .9 Sinusitis Acute 10/13/2009 NILSA WHALEN, STEPHEN 461.9 Sinusitis Acute 10/13/2009 ZACKRAY TRUJILLO MD 461.9 Sinusitis Acute 10/13/2009 ZACKARY TRUJILLO MD 461.9 Sinusitis Acute 12/01/2009 SHABNAM CORREA APRN 041.86 Helicobacter Pylori [h.pylori] 12/01/2009 SHABNAM CORREA APRN 68 2.6 Other Cellulitis And Abscess, Leg, Except Foot 12/01/2009 JEN STONE DOA K 041.86 Helicobacter Pylori [h.pylori] 12/01/2009 JOVAN STONE DO K 682.6 Other Cellulitis And Abscess, Leg, Except Foot 12/01/2009 SHABNAM CORREA APRN 041.86 Helicobacter Pylori [h.pylori] 12/01/2009 SHABNAM CORREA APRN 68 2.6 Other Cellulitis And Abscess, Leg, Except Foot 12/01/2009 ZAYNAB VALVERDE APRN R 041.86 Helicobacter Pylori [h.pylori] 12/01/2009 ZAYNAB VALVERDE APRN R 682.6 Other Cellulitis And Abscess, Leg, Except Foot 12/01/2009 SHABNAM CORREA APRN 041.86 Helicobacter Pylori [h.pylori] 12/01/2009 SHABNAM CORREA APRN 68 2.6 Other Cellulitis And Abscess, Leg, Except Foot 12/01/2009 JEN STONE DOA K 041.86 Helicobacter Pylori [h.pylori] 12/01/2009 JEN STONE DOA K 682.6 Other Cellulitis And Abscess, Leg, Except Foot 12/01/2009 SANTOS PARSONS MD 041.86 Helicobacter Pylori [h.pylori] 12/01/2009 SANTOS PARSONS MD 68 2.6 Other Cellulitis And Abscess, Leg, Except Foot 12/01/2009 ZACKARY TRUJILLO MD 041.8 6 Helicobacter Pylori [h.pylori] 12/01/2009 ZACKARY TRUJILLO MD 682.6 Other Cellulitis And Abscess, Leg, Except Foot 12/01/2009 ZACKARY TRUJILLO MD 041.8 6 Helicobacter Pylori [h.pylori] 12/01/2009 ZACKARY TRUJILLO MD 682.6 Other Cellulitis And Abscess, Leg, Except Foot 12/01/2009 SHABNAM CORREA APRN T 041.86 Helicobacter Pylori [h.pylori] 12/01/2009 SHABNAM CORREA APRN T 68 2.6 Other Cellulitis And Abscess, Leg, Except Foot 12/01/2009 SHABNAM CORREA APRN T 041.86 Helicobacter Pylori [h.pylori] 12/01/2009 SHABNAM CORREA APRN T 68 2.6 Other Cellulitis And Abscess, Leg, Except Foot 12/01/2009 JOVAN STONE DO K 041.86 Helicobacter Pylori [h.pylori] 12/01/2009 JOVAN STONE DO 682.6 Other Cellulitis And Abscess, Leg, Except Foot 12/01/2009 SHABNAM CORREA APRN T 041.86 Helicobacter Pylori [h.pylori] 12/01/2009 SHABNAM CORREA APRN 68 2.6 Other Cellulitis And Abscess, Leg, Except Foot 12/01/2009 ZACKARY TRUJILLO MD 041.8 6 Helicobacter Pylori [h.pylori] 12/01/2009 ZACKARY TRUJILLO MD 682.6 Other Cellulitis And Abscess, Leg, Except Foot 12/01/2009 ZACKARY TRUJILLO MD 041.8 6 Helicobacter Pylori [h.pylori] 12/01/2009 ZACKARY TRUJILLO MD 682.6 Other Cellulitis And Abscess, Leg, Except Foot 12/01/2009 ZACKARY TRUJILLO MD 041.8 6 Helicobacter Pylori [h.pylori] 12/01/2009 ZACKARY TRUJILLO MD 682.6 Other Cellulitis And Abscess, Leg, Except Foot 12/01/2009 JOSE SILVA APRN 041 .86 Helicobacter Pylori [h.pylori] 12/01/2009 JOSE SILVA APRN 682 .6 Other Cellulitis And Abscess, Leg, Except Foot 12/01/2009 STEPHEN ASH MD 041.86 Helicobacter Pylori [h.pylori] 12/01/2009 STEPHEN ASH MD 682.6 Other Cellulitis And Abscess, Leg, Except Foot 12/01/2009 ZACKARY TRUJILLO MD 041.8 6 Helicobacter Pylori [h.pylori] 12/01/2009 ZACKARY TRUJILLO MD 682.6 Other Cellulitis And Abscess, Leg, Except Foot 12/01/2009 ZACKARY TRUJILLO MD 041.8 6 Helicobacter Pylori [h.pylori] 12/01/2009 ZACKARY TRUJILLO MD 682.6 Other Cellulitis And Abscess, Leg, Except Foot 12/08/2009 SHABNAM CORREA APRN 68 2.9 Cellulitis And Abscess Of Unspecified Sites 12/08/2009 STONE DO, JOVAN K 682.9 Cellulitis And Abscess Of Unspecified Sites 12/08/2009 SHABNAM CORREA APRN 68 2.9 Cellulitis And Abscess Of Unspecified Sites 12/08/2009 ZAYNAB VALVERDE APRN 682.9 Cellulitis And Abscess Of Unspecified Sites 12/08/2009 SHABNAM CORREA APRN 68 2.9 Cellulitis And Abscess Of Unspecified Sites 12/08/2009 STONE DO, JOVAN K 682.9 Cellulitis And Abscess Of Unspecified Sites 12/08/2009 ISSA WHALEN, SANTOS Workman 68 2.9 Cellulitis And Abscess Of Unspecified Sites 12/08/2009 ZACKARY TRUJILLO MD 682.9 Cellulitis And Abscess Of Unspecified Sites 12/08/2009 ZACKARY TRUJILLO MD 682.9 Cellulitis And Abscess Of Unspecified Sites 12/08/2009 SHABNAM CORREA APRN 68 2.9 Cellulitis And Abscess Of Unspecified Sites 12/08/2009 SHABNAM CORREA APRN 68 2.9 Cellulitis And Abscess Of Unspecified Sites 12/08/2009 CHASE DO, JOVAN K 682.9 Cellulitis And Abscess Of Unspecified Sites 12/08/2009 SHABNAM CORREA APRN 68 2.9 Cellulitis And Abscess Of Unspecified Sites 12/08/2009 ZACKARY TRUJILLO MD 682.9 Cellulitis And Abscess Of Unspecified Sites 12/08/2009 ZACKARY TRUJILLO MD 682.9 Cellulitis And Abscess Of Unspecified Sites 12/08/2009 ZACKARY TRUJILLO MD 682.9 Cellulitis And Abscess Of Unspecified Sites 12/08/2009 JOSE SILVA APRN 682 .9 Cellulitis And Abscess Of Unspecified Sites 12/08/2009 STEPHEN ASH MD 682.9 Cellulitis And Abscess Of Unspecified Sites 12/08/2009 ZACKARY TRUJILLO MD 682.9 Cellulitis And Abscess Of Unspecified Sites 12/08/2009 ZACKARY TRUJILLO MD 682.9 Cellulitis And Abscess Of Unspecified Sites 02/11/2010 SHABNAM CORREA APRN T 33 8.4 Pain Chronic Syndrome 02/11/2010 SHABNAM CORREA APRN T 59 9.0 Urinary Tract Infection 02/11/2010 STONE DO, JOVAN K 338.4 Pain Chronic Syndrome 02/11/2010 STONE DO, JOVAN K 599.0 Urinary Tract Infection 02/11/2010 SHABNAM CORREA APRN T 33 8.4 Pain Chronic Syndrome 02/11/2010 SHABNAM CORREA APRN T 59 9.0 Urinary Tract Infection 02/11/2010 NICOLLE KEENE ZAYNAB R 338.4 Pain Chronic Syndrome 02/11/2010 NICOLLE KEENE ZAYNAB R 599.0 Urinary Tract Infection 02/11/2010 SHABNAM CORREA APRN T 33 8.4 Pain Chronic Syndrome 02/11/2010 SHABNAM CORREA APRN T 59 9.0 Urinary Tract Infection 02/11/2010 STONE DO, JOVAN K 338.4 Pain Chronic Syndrome 02/11/2010 STONE DO, JOVAN K 599.0 Urinary Tract Infection 02/11/2010 ISSA WHALEN, SANTOS M 33 8.4 Pain Chronic Syndrome 02/11/2010 ISSA WHALEN, SANTOS M 59 9.0 Urinary Tract Infection 02/11/2010 ZACKARY TRUJILLO MD 338.4 Pain Chronic Syndrome 02/11/2010 ZACKARY TRUJILLO MD 599.0 Urinary Tract Infection 02/11/2010 ZACKARY TRUJILLO MD 338.4 Pain Chronic Syndrome 02/11/2010 ZACKARY TRUJILLO MD 599.0 Urinary Tract Infection 02/11/2010 SHABNAM CORREA APRN T 33 8.4 Pain Chronic Syndrome 02/11/2010 SHABNAM CORREA APRN T 59 9.0 Urinary Tract Infection 02/11/2010 SHABNAM CORREA APRN T 33 8.4 Pain Chronic Syndrome 02/11/2010 SHABNAM CORREA APRN T 59 9.0 Urinary Tract Infection 02/11/2010 STONE DO, JOVAN K 338.4 Pain Chronic Syndrome 02/11/2010 STONE DO, JOVAN K 599.0 Urinary Tract Infection 02/11/2010 SHABNAM CORREA APRN T 33 8.4 Pain Chronic Syndrome 02/11/2010 SHABNAM CORREA APRN T 59 9.0 Urinary Tract Infection 02/11/2010 RONNIE WHALEN, ZACKARY 338.4 Pain Chronic Syndrome 02/11/2010 RONNIE WHALEN, ZACKARY 599.0 Urinary Tract Infection 02/11/2010 RONNIE WHALEN, ZACKARY 338.4 Pain Chronic Syndrome 02/11/2010 RONNIE WHALEN, ZACKARY 599.0 Urinary Tract Infection 02/11/2010 RONNIE WHALEN, ZACKARY 338.4 Pain Chronic Syndrome 02/11/2010 RONNIE WHALEN, ZACKARY 599.0 Urinary Tract Infection 02/11/2010 MADRosalee WOOD LATHER, JOSE L 338 .4 Pain Chronic Syndrome 02/11/2010 MADL WOOD LATHER, JOSE L 599 .0 Urinary Tract Infection 02/11/2010 NILSA HWALEN, ALI 338.4 Pain Chronic Syndrome 02/11/2010 NILSA WHALEN, ALI 599.0 Urinary Tract Infection 02/11/2010 RONNIE WHALEN, ZACKARY 338.4 Pain Chronic Syndrome 02/11/2010 RONNIE WHALEN, ZACKARY 599.0 Urinary Tract Infection 02/11/2010 RONNIE WHALEN, ZACKARY 338.4 Pain Chronic Syndrome 02/11/2010 RONNIE WHALEN, ZACKARY 599.0 Urinary Tract Infection 02/18/2010 Ot 285.9 04/05/2010 SHABNAM CORREA APRN 528.00 Stomatitis And Mucositis, Unspecified 04/05/2010 JOVAN STONE DO 528.00 Stomatitis And Mucositis, Unspecified 04/05/2010 SHABNAM CORREA APRN 528.00 Stomatitis And Mucositis, Unspecified 04/05/2010 ZAYNAB VALVERDE APRN 528.00 Stomatitis And Mucositis, Unspecified 04/05/2010 SHABNAM CORREA APRN 528.00 Stomatitis And Mucositis, Unspecified 04/05/2010 JOVAN STONE DO K 528.00 Stomatitis And Mucositis, Unspecified 04/05/2010 ISSA WHALEN, SANTOS Workman 528.00 Stomatitis And Mucositis, Unspecified 04/05/2010 ZACKARY TRUJILLO MD 528.0 0 Stomatitis And Mucositis, Unspecified 04/05/2010 ZACKARY TRUJILLO MD 528.0 0 Stomatitis And Mucositis, Unspecified 04/05/2010 SHABNAM CORREA APRN 528.00 Stomatitis And Mucositis, Unspecified 04/05/2010 SHABNAM CORREA APRN 528.00 Stomatitis And Mucositis, Unspecified 04/05/2010 JOVAN STONE DO K 528.00 Stomatitis And Mucositis, Unspecified 04/05/2010 SHABNAM CORREA APRN 528.00 Stomatitis And Mucositis, Unspecified 04/05/2010 ZACKARY TRUJILLO MD 528.0 0 Stomatitis And Mucositis, Unspecified 04/05/2010 ZACKARY TRUJILLO MD 528.0 0 Stomatitis And Mucositis, Unspecified 04/05/2010 ZACKARY TRUJILLO MD 528.0 0 Stomatitis And Mucositis, Unspecified 04/05/2010 JOSE SILVA APRN 528 .00 Stomatitis And Mucositis, Unspecified 04/05/2010 STEPHEN ASH MD 528.00 Stomatitis And Mucositis, Unspecified 04/05/2010 ZACKARY TRUJILLO MD 528.0 0 Stomatitis And Mucositis, Unspecified 04/05/2010 ZACKARY TRUJILLO MD 528.0 0 Stomatitis And Mucositis, Unspecified 04/11/2010 Ot 847.1 04/11/2010 Ot 847.2 04/11/2010 Ot 959.19 04/11/2010 Ot E000.8 04/11/2010 Ot E029.9 04/11/2010 Ot E849.0 04/11/2010 Ot E927.8 06/10/2010 SHABNAM CORREA APRN 70 9.9 Skin Lesions 06/10/2010 JOVAN STONE DO K 709.9 Skin Lesions 06/10/2010 SHABNAM CORREA APRN 70 9.9 Skin Lesions 06/10/2010 ZAYNAB VALVERDE APRN R 709.9 Skin Lesions 06/10/2010 SHABNAM CORREA APRN 70 9.9 Skin Lesions 06/10/2010 JOVAN STONE DO K 709.9 Skin Lesions 06/10/2010 SANTOS PARSONS MD 70 9.9 Skin Lesions 06/10/2010 ZACKARY TRUJILLO MD 709.9 Skin Lesions 06/10/2010 ZACKARY TRUJILLO MD 709.9 Skin Lesions 06/10/2010 SHABNAM CORREA APRN 70 9.9 Skin Lesions 06/10/2010 SHABNAM CORREA APRN 70 9.9 Skin Lesions 06/10/2010 STONE DO, JOVAN K 709.9 Skin Lesions 06/10/2010 SHABNAM CORREA APRN T 70 9.9 Skin Lesions 06/10/2010 ZACKARY TRUJILLO MD 709.9 Skin Lesions 06/10/2010 ZACKARY TRUJILLO MD 709.9 Skin Lesions 06/10/2010 ZACKARY TRUJILLO MD 709.9 Skin Lesions 06/10/2010 JLUIS SILVA APRNNYPablo Turk 709 .9 Skin Lesions 06/10/2010 STEPHEN ASH MD 709.9 Skin Lesions 06/10/2010 ZACKARY TRUJILLO MD 709.9 Skin Lesions 06/10/2010 ZACKARY TRUJILLO MD 709.9 Skin Lesions 06/27/2010 SHABNAM CORREA APRN T 46 5.9 UPPER RESPIRATORY INFECTION 06/27/2010 SHABNAM CORREA APRN T 72 3.1 PAIN NECK 06/27/2010 STONE DO, JOVAN K 465.9 UPPER RESPIRATORY INFECTION 06/27/2010 STONE DO, JOVAN K 723.1 PAIN NECK 06/27/2010 HSABNAM CORREA APRN T 46 5.9 UPPER RESPIRATORY INFECTION 06/27/2010 SHABNAM CORREA APRN T 72 3.1 PAIN NECK 06/27/2010 NICOLLE KEENE, ZAYNAB R 465.9 UPPER RESPIRATORY INFECTION 06/27/2010 NICOLLE KEENE, ZAYNAB R 723.1 PAIN NECK 06/27/2010 SHABNAM CORREA APRN T 46 5.9 UPPER RESPIRATORY INFECTION 06/27/2010 SHABNAM CORREA APRN T 72 3.1 PAIN NECK 06/27/2010 STONE DO, JOVAN K 465.9 UPPER RESPIRATORY INFECTION 06/27/2010 STONE DO, JOVAN K 723.1 PAIN NECK 06/27/2010 SANTOS PARSONS MD M 46 5.9 UPPER RESPIRATORY INFECTION 06/27/2010 ISSA WAHLEN, SANTOS M 72 3.1 PAIN NECK 06/27/2010 ZACKARY TRUJILLO MD 465.9 UPPER RESPIRATORY INFECTION 06/27/2010 ZACKARY TRUJILLO MD 723.1 PAIN NECK 06/27/2010 ZACKARY TRUJILLO MD 465.9 UPPER RESPIRATORY INFECTION 06/27/2010 ZACKARY TRUJILLO MD 723.1 PAIN NECK 06/27/2010 SHABNAM CORREA APRN 46 5.9 UPPER RESPIRATORY INFECTION 06/27/2010 SHABNAM CORREA APRN T 72 3.1 PAIN NECK 06/27/2010 SHABNAM CORREA APRN 46 5.9 UPPER RESPIRATORY INFECTION 06/27/2010 SHABNAM CORREA APRN 72 3.1 PAIN NECK 06/27/2010 STONE DO, JOVAN K 465.9 UPPER RESPIRATORY INFECTION 06/27/2010 STONE DO, JOVAN K 723.1 PAIN NECK 06/27/2010 SHABNAM CORREA APRN T 46 5.9 UPPER RESPIRATORY INFECTION 06/27/2010 SHABNAM CORREA APRN 72 3.1 PAIN NECK 06/27/2010 ZACKARY TRUJILLO MD 465.9 UPPER RESPIRATORY INFECTION 06/27/2010 ZACKARY TRUJILLO MD 723.1 PAIN NECK 06/27/2010 ZACKARY TRUJILLO MD 465.9 UPPER RESPIRATORY INFECTION 06/27/2010 ZACKARY TRUJILLO MD 723.1 PAIN NECK 06/27/2010 ZACKARY TRUJILLO MD 465.9 UPPER RESPIRATORY INFECTION 06/27/2010 ZACKARY TRUJILLO MD 723.1 PAIN NECK 06/27/2010 MADRosalee KEENE, JOSE L 465 .9 UPPER RESPIRATORY INFECTION 06/27/2010 MADRosalee KEENE, JOSE L 723 .1 PAIN NECK 06/27/2010 NILSA WHALEN, STEPHEN 465.9 UPPER RESPIRATORY INFECTION 06/27/2010 NILSA WHALEN, ALI 723.1 PAIN NECK 06/27/2010 ZACKARY TRUJILLO MD 465.9 UPPER RESPIRATORY INFECTION 06/27/2010 ZACKARY TRUJILLO MD 723.1 PAIN NECK 06/27/2010 ZACKARY TRUJILLO MD 465.9 UPPER RESPIRATORY INFECTION 06/27/2010 ZACKARY TRUJILLO MD 723.1 PAIN NECK 07/18/2010 SHABNAM CORREA APRN 296.90 MO MOOD DIS NOS 07/18/2010 STONE DO, JOVAN K 296.90 MO MOOD DIS NOS 07/18/2010 SHABNAM CORREA APRN 296.90 MO MOOD DIS NOS 07/18/2010 ZAYNAB VALVERDE APRN 296.90 MO MOOD DIS NOS 07/18/2010 SHABNAM CORREA APRN T 296.90 MO MOOD DIS NOS 07/18/2010 STONE DO, JOVAN K 296.90 MO MOOD DIS NOS 07/18/2010 ISSA WHALEN, SANTOS Workman 296.90 MO MOOD DIS NOS 07/18/2010 ZACKARY TRUJILLO MD 296.9 0 MO MOOD DIS NOS 07/18/2010 ZACKARY TRUJILLO MD 296.9 0 MO MOOD DIS NOS 07/18/2010 SHABNAM CORREA APRN 296.90 MO MOOD DIS NOS 07/18/2010 SHABNAM CORREA APRN T 296.90 MO MOOD DIS NOS 07/18/2010 STONE DO, JOVAN K 296.90 MO MOOD DIS NOS 07/18/2010 SHABNAM CORREA APRN T 296.90 MO MOOD DIS NOS 07/18/2010 ZACKARY TRUJILLO MD 296.9 0 MO MOOD DIS NOS 07/18/2010 ZACKARY TRUJILLO MD 296.9 0 MO MOOD DIS NOS 07/18/2010 ZACKARY TRUJILLO MD 296.9 0 MO MOOD DIS NOS 07/18/2010 JOSE SILVA APRN L 296 .90 MO MOOD DIS NOS 07/18/2010 NILSA WHALEN, STEPHEN 296.90 MO MOOD DIS NOS 07/18/2010 ZACKARY TRUJILLO MD 296.9 0 MO MOOD DIS NOS 07/18/2010 ZACKARY TRUJILLO MD 296.9 0 MO MOOD DIS NOS 11/08/2010 SHABNAM CORREA APRN 62 5.3 Dysmenorrhea 11/08/2010 SHABNAM CORREA APRN V2 5.9 Contraceptive Management, Unspecified 11/08/2010 SHABNAM CORREA APRN V7 4.5 Std Screen 11/08/2010 STONE DO, JOVAN K 625.3 Dysmenorrhea 11/08/2010 STONE DO, JOVAN K V25.9 Contraceptive Management, Unspecified 11/08/2010 STONE DO, JOVAN K V74.5 Std Screen 11/08/2010 SHABNAM CORREA APRN 62 5.3 Dysmenorrhea 11/08/2010 SHABNAM CORREA APRN V2 5.9 Contraceptive Management, Unspecified 11/08/2010 SHABNAM CORREA APRN V7 4.5 Std Screen 11/08/2010 NICOLLE KEENE ZAYNAB R 625.3 Dysmenorrhea 11/08/2010 NICOLLE KEENE ZAYNAB R V25.9 Contraceptive Management, Unspecified 11/08/2010 NICOLLE KEENE ZAYNAB R V74.5 Std Screen 11/08/2010 SHABNAM CORREA APRN 62 5.3 Dysmenorrhea 11/08/2010 SHABNAM CORREA APRN V2 5.9 Contraceptive Management, Unspecified 11/08/2010 SHABNAM CORREA APRN V7 4.5 Std Screen 11/08/2010 STONE DO, JOVAN K 625.3 Dysmenorrhea 11/08/2010 STONE DO, JOVAN K V25.9 Contraceptive Management, Unspecified 11/08/2010 STONE DO, JOVAN K V74.5 Std Screen 11/08/2010 ISSA WHALEN, SANTOS Workman 62 5.3 Dysmenorrhea 11/08/2010 ISSA WHALEN, SANTOS Workman V2 5.9 Contraceptive Management, Unspecified 11/08/2010 ISSA WHALEN, SANTOS Workman V7 4.5 Std Screen 11/08/2010 ZACKARY TRUJILLO MD 625.3 Dysmenorrhea 11/08/2010 ZACKARY TRUJILLO MD V25.9 Contraceptive Management, Unspecified 11/08/2010 ZACKARY TRUJILLO MD V74.5 Std Screen 11/08/2010 ZACKARY TRUJILLO MD 625.3 Dysmenorrhea 11/08/2010 ZACKARY TRUJILLO MD V25.9 Contraceptive Management, Unspecified 11/08/2010 ZACKARY TRUJILLO MD V74.5 Std Screen 11/08/2010 SHABNAM CORREA APRN 62 5.3 Dysmenorrhea 11/08/2010 SHABNAM CORREA APRN V2 5.9 Contraceptive Management, Unspecified 11/08/2010 SHABNAM CORREA APRN V7 4.5 Std Screen 11/08/2010 SHABNAM CORREA APRN 62 5.3 Dysmenorrhea 11/08/2010 SHABNAM CORREA APRN V2 5.9 Contraceptive Management, Unspecified 11/08/2010 SHABNAM CORREA APRN V7 4.5 Std Screen 11/08/2010 STONE DO, JOVAN K 625.3 Dysmenorrhea 11/08/2010 STONE DO, JOVAN K V25.9 Contraceptive Management, Unspecified 11/08/2010 STONE DO, JOVAN K V74.5 Std Screen 11/08/2010 SHABNAM CORREA APRN 62 5.3 Dysmenorrhea 11/08/2010 SHABNAM CORREA APRN V2 5.9 Contraceptive Management, Unspecified 11/08/2010 SHABNAM CORREA APRN V7 4.5 Std Screen 11/08/2010 ZACKARY TRUJILLO MD 625.3 Dysmenorrhea 11/08/2010 ZACKARY TRUJILLO MD V25.9 Contraceptive Management, Unspecified 11/08/2010 ZACKARY TRUJILLO MD V74.5 Std Screen 11/08/2010 RONNIE WHALEN, ZACKARY 625.3 Dysmenorrhea 11/08/2010 RONNIE WHALEN, ZACKARY V25.9 Contraceptive Management, Unspecified 11/08/2010 RONNIE WHALEN, ZACKARY V74.5 Std Screen 11/08/2010 ZACKARY TRUJILLO MD 625.3 Dysmenorrhea 11/08/2010 RONNIE WHALEN, ZACKARY V25.9 Contraceptive Management, Unspecified 11/08/2010 ZACKARY TRUJILLO MD V74.5 Std Screen 11/08/2010 RICARDO WOOD LATHER, JOSE Turk 625 .3 Dysmenorrhea 11/08/2010 RICARDO WOOD LATHER, JOSE L V25 .9 Contraceptive Management, Unspecified 11/08/2010 RICARDO WOOD LATHER, JOSE L V74 .5 Std Screen 11/08/2010 NILSA WHALEN, STEPHEN 625.3 Dysmenorrhea 11/08/2010 NILSA WHALEN, STEPHEN V25.9 Contraceptive Management, Unspecified 11/08/2010 NILSA WHALEN, STEPHEN V74.5 Std Screen 11/08/2010 ZACKARY TRUJILLO MD 625.3 Dysmenorrhea 11/08/2010 RONNIE WHALEN, ZACKARY V25.9 Contraceptive Management, Unspecified 11/08/2010 ZACKARY TRUJILLO MD V74.5 Std Screen 11/08/2010 ZACKARY TRUJILLO MD 625.3 Dysmenorrhea 11/08/2010 ZACKARY TRUJILLO MD V25.9 Contraceptive Management, Unspecified 11/08/2010 ZACKARY TRUJILLO MD V74.5 Std Screen 02/06/2011 SHABNAM CORREA APRN 52 5.9 Unspecified Disorder Of The Teeth And Supporting Structures 02/06/2011 JOVAN STONE DO 525.9 Unspecified Disorder Of The Teeth And Supporting Structures 02/06/2011 SHABNAM CORREA APRN 5.9 Unspecified Disorder Of The Teeth And Supporting Structures 02/06/2011 ZAYNAB VALVERDE APRN 525.9 Unspecified Disorder Of The Teeth And Supporting Struc tures 02/06/2011 SHABNAM CORREA APRN 52 5.9 Unspecified Disorder Of The Teeth And Supporting Structures 02/06/2011 JOVAN STONE DO 525.9 Unspecified Disorder Of The Teeth And Supporting Structures 02/06/2011 SANTOS PARSONS MD 52 5.9 Unspecified Disorder Of The Teeth And Supporting Structures 02/06/2011 ZACKARY TRUJILLO MD 525.9 Unspecified Disorder Of The Teeth And Supporting Structures 02/06/2011 ZACKARY TRUJILLO MD 525.9 Unspecified Disorder Of The Teeth And Supporting Structures 02/06/2011 SHABNAM CORREA APRN 52 5.9 Unspecified Disorder Of The Teeth And Supporting Structures 02/06/2011 SHABNAM CORREA APRN 52 5.9 Unspecified Disorder Of The Teeth And Supporting Structures 02/06/2011 CHASE SMITH JOVAN K 525.9 Unspecified Disorder Of The Teeth And Supporting Structures 02/06/2011 SHABNAM CORREA APRN 52 5.9 Unspecified Disorder Of The Teeth And Supporting Structures 02/06/2011 ZACKARY TRUJILLO MD 525.9 Unspecified Disorder Of The Teeth And Supporting Structures 02/06/2011 ZACKARY TRUJILLO MD 525.9 Unspecified Disorder Of The Teeth And Supporting Structures 02/06/2011 ZACKARY TRUJILLO MD 525.9 Unspecified Disorder Of The Teeth And Supporting Structures 02/06/2011 JOSE SILVA APRN 525 .9 Unspecified Disorder Of The Teeth And Supporting Structures 02/06/2011 STEPHEN ASH MD 525.9 Unspecified Disorder Of The Teeth And Supporting Structures 02/06/2011 ZACKARY TRUJILLO MD 525.9 Unspecified Disorder Of The Teeth And Supporting Structures 02/06/2011 ZACKARY TRUJILLO MD 525.9 Unspecified Disorder Of The Teeth And Supporting Structures 03/03/2011 SHABNAM CORREA APRN 11 2.1 Candidiasis Vaginal 03/03/2011 SHABNAM CORREA APRN 709.09 Other Dyschromia 03/03/2011 SHABNAM CORREA APRN 72 4.2 BACK PAIN, LOWER 03/03/2011 STONE DO, JOVAN K 112.1 Candidiasis Vaginal 03/03/2011 STONE DO, JOVAN K 709.09 Other Dyschromia 03/03/2011 STONE DO, JOVAN K 724.2 BACK PAIN, LOWER 03/03/2011 SHABNAM CORREA APRN 11 2.1 Candidiasis Vaginal 03/03/2011 SHABNAM CORREA APRN 709.09 Other Dyschromia 03/03/2011 SHABNAM CORREA APRN 72 4.2 BACK PAIN, LOWER 03/03/2011 VALVERDE WOOD LATHER, ZAYNAB R 112.1 Candidiasis Vaginal 03/03/2011 NICOLLE KEENE ZAYNAB R 709.09 Other Dyschromia 03/03/2011 ZAYNAB VALVERDE APRN R 724.2 BACK PAIN, LOWER 03/03/2011 SHABNAM CORREA APRN 11 2.1 Candidiasis Vaginal 03/03/2011 SHABNAM CORREA APRN 709.09 Other Dyschromia 03/03/2011 SHABNAM CORREA APRN 72 4.2 BACK PAIN, LOWER 03/03/2011 STONE DO, JOVAN K 112.1 Candidiasis Vaginal 03/03/2011 STONE DO, JOVAN K 709.09 Other Dyschromia 03/03/2011 STONE DO, JOVAN K 724.2 BACK PAIN, LOWER 03/03/2011 ISSA WHALEN, SANTOS Workman 11 2.1 Candidiasis Vaginal 03/03/2011 ISSA WHALEN, SANTOS Workman 709.09 Other Dyschromia 03/03/2011 ISSA WHALEN, SANTOS Workman 72 4.2 BACK PAIN, LOWER 03/03/2011 ZACKARY TRUJILLO MD 112.1 Candidiasis Vaginal 03/03/2011 ZACKARY TRUJILLO MD 709.0 9 Other Dyschromia 03/03/2011 ZCAKARY TRUJILLO MD 724.2 BACK PAIN, LOWER 03/03/2011 ZACKARY TRUJILLO MD 112.1 Candidiasis Vaginal 03/03/2011 ZACKARY TRUJILLO MD 709.0 9 Other Dyschromia 03/03/2011 ZACKARY TRUJILLO MD 724.2 BACK PAIN, LOWER 03/03/2011 SHABNAM CORREA APRN 11 2.1 Candidiasis Vaginal 03/03/2011 SHABNAM CORREA APRN 709.09 Other Dyschromia 03/03/2011 SHABNAM CORREA APRN 72 4.2 BACK PAIN, LOWER 03/03/2011 SHABNAM CORREA APRN 11 2.1 Candidiasis Vaginal 03/03/2011 SHABNAM CORREA APRN 709.09 Other Dyschromia 03/03/2011 SHABNAM CORREA APRN 72 4.2 BACK PAIN, LOWER 03/03/2011 STONE DO, JOVAN K 112.1 Candidiasis Vaginal 03/03/2011 STONE DO, JOVAN K 709.09 Other Dyschromia 03/03/2011 STONE DO, JOVAN K 724.2 BACK PAIN, LOWER 03/03/2011 SHABNAM CORREA APRN 11 2.1 Candidiasis Vaginal 03/03/2011 SHABNAM CORREA APRN 709.09 Other Dyschromia 03/03/2011 SHABNAM CORREA APRN 72 4.2 BACK PAIN, LOWER 03/03/2011 ZACKARY TRUJILLO MD 112.1 Candidiasis Vaginal 03/03/2011 ZACKARY TRUJILLO MD 709.0 9 Other Dyschromia 03/03/2011 ZACKARY TRUJILLO MD 724.2 BACK PAIN, LOWER 03/03/2011 ZACKARY TRUJILLO MD 112.1 Candidiasis Vaginal 03/03/2011 ZACKARY TRUJILLO MD 709.0 9 Other Dyschromia 03/03/2011 ZACKARY TRUJILLO MD 724.2 BACK PAIN, LOWER 03/03/2011 ZACKARY TRUJILLO MD 112.1 Candidiasis Vaginal 03/03/2011 ZACKARY TRUJILLO MD 709.0 9 Other Dyschromia 03/03/2011 ZACKARY TRUJILLO MD 724.2 BACK PAIN, LOWER 03/03/2011 JOSE SILVA APRN L 112 .1 Candidiasis Vaginal 03/03/2011 JOSE SILVA APRN L 709 .09 Other Dyschromia 03/03/2011 JOSE SILVA APRN L 724 .2 BACK PAIN, LOWER 03/03/2011 NILSA WHALEN, ALI 112.1 Candidiasis Vaginal 03/03/2011 NILSA WHALEN, STEPHEN 709.09 Other Dyschromia 03/03/2011 STEPHEN ASH MD 724.2 BACK PAIN, LOWER 03/03/2011 ZACKARY TRUJILLO MD 112.1 Candidiasis Vaginal 03/03/2011 ZACKARY TRUJILLO MD 709.0 9 Other Dyschromia 03/03/2011 ZACKARY TRUJILLO MD 724.2 BACK PAIN, LOWER 03/03/2011 ZACKARY TRUJILLO MD 112.1 Candidiasis Vaginal 03/03/2011 ZACKARY TRUJILLO MD 709.0 9 Other Dyschromia 03/03/2011 ZACKARY TRUJILLO MD 724.2 BACK PAIN, LOWER 06/05/2011 SHABNAM CORREA APRN V72.83 Other Specified Pre-operative Examination 06/05/2011 JOVAN STONE DO V72.83 Other Specified Pre-operative Examination 06/05/2011 SHABNAM CORREA APRN V72.83 Other Specified Pre-operative Examination 06/05/2011 NICOLLE KEENE, ZAYNAB R V72.83 Other Specified Pre-operative Examination 06/05/2011 SHABNAM CORREA APRN T V72.83 Other Specified Pre-operative Examination 06/05/2011 STONE DO, JOVAN K V72.83 Other Specified Pre-operative Examination 06/05/2011 SANTOS PARSONS MD V72.83 Other Specified Pre-operative Examination 06/05/2011 ZACKARY TRUIJLLO MD V72.8 3 Other Specified Pre-operative Examination 06/05/2011 ZACKARY TRUJILLO MD V72.8 3 Other Specified Pre-operative Examination 06/05/2011 SHABNAM CORREA APRN V72.83 Other Specified Pre-operative Examination 06/05/2011 SHABNAM CORREA APRN V72.83 Other Specified Pre-operative Examination 06/05/2011 STONE DO, JOVAN K V72.83 Other Specified Pre-operative Examination 06/05/2011 SHABNAM CORREA APRN T V72.83 Other Specified Pre-operative Examination 06/05/2011 ZACKARY TRUJILLO MD V72.8 3 Other Specified Pre-operative Examination 06/05/2011 ZACKARY TRUJILLO MD V72.8 3 Other Specified Pre-operative Examination 06/05/2011 ZACKARY TRUJILLO MD V72.8 3 Other Specified Pre-operative Examination 06/05/2011 JOSE SILVA APRN V72 .83 Other Specified Pre-operative Examination 06/05/2011 STEPHEN ASH MD V72.83 Other Specified Pre-operative Examination 06/05/2011 ZACKARY TRUJILLO MD V72.8 3 Other Specified Pre-operative Examination 06/05/2011 ZACKARY TRUJILLO MD V72.8 3 Other Specified Pre-operative Examination 06/12/2011 SHABNAM CORREA APRN T 48 6 Pneumonia Unspecified 06/12/2011 STONE DO, JOVAN K 486 Pneumonia Unspecified 06/12/2011 SHABNAM CORREA APRN T 48 6 Pneumonia Unspecified 06/12/2011 DIONI VALVERDE APRNIA R 486 Pneumonia Unspecified 06/12/2011 SHABNAM CORREA APRN T 48 6 Pneumonia Unspecified 06/12/2011 STONE DO, JOVAN K 486 Pneumonia Unspecified 06/12/2011 PARSONS MD, SANTOS M 48 6 Pneumonia Unspecified 06/12/2011 ORNNIE WHALEN, ZACKARY 486 Pneumonia Unspecified 06/12/2011 RONNIE WHALEN, ZACKARY 486 Pneumonia Unspecified 06/12/2011 SHABNAM CORREA APRN 48 6 Pneumonia Unspecified 06/12/2011 SHABNAM CORREA APRN 48 6 Pneumonia Unspecified 06/12/2011 CHASE SMITH, JOVAN K 486 Pneumonia Unspecified 06/12/2011 SHABNAM CORREA APRN 48 6 Pneumonia Unspecified 06/12/2011 RONNIE WHALEN, ZACKARY 486 Pneumonia Unspecified 06/12/2011 RONNIE WHALEN, ZACKARY 486 Pneumonia Unspecified 06/12/2011 RONNIE WHALEN, ZACKARY 486 Pneumonia Unspecified 06/12/2011 JOSE SILVA APRN 486 Pneumonia Unspecified 06/12/2011 NILSA WHALEN, STEPHEN 486 Pneumonia Unspecified 06/12/2011 RONNIE WHALEN, ZACKARY 486 Pneumonia Unspecified 06/12/2011 RONNIE WHALEN, ZACKARY 486 Pneumonia Unspecified 06/26/2011 SHABNAM CORREA APRN T 53 7.0 PYLORIC STENOSIS 06/26/2011 STONE DO, JOVAN K 537.0 PYLORIC STENOSIS 06/26/2011 SHABNAM CORREA APRN T 53 7.0 PYLORIC STENOSIS 06/26/2011 NICOLLE KEENE ZAYNAB R 537.0 PYLORIC STENOSIS 06/26/2011 SHABNAM CORREA APRN T 53 7.0 PYLORIC STENOSIS 06/26/2011 STONE DO, JOVAN K 537.0 PYLORIC STENOSIS 06/26/2011 ISSA WHALEN, SANTOS Workman 53 7.0 PYLORIC STENOSIS 06/26/2011 ZACKARY TRUJILLO MD 537.0 PYLORIC STENOSIS 06/26/2011 ZACKARY TRUJILLO MD 537.0 PYLORIC STENOSIS 06/26/2011 SHABNAM CORREA APRN T 53 7.0 PYLORIC STENOSIS 06/26/2011 SHABNAM CORREA APRN T 53 7.0 PYLORIC STENOSIS 06/26/2011 STONE DO, JOVAN K 537.0 PYLORIC STENOSIS 06/26/2011 SHABNAM CORREA APRN T 53 7.0 PYLORIC STENOSIS 06/26/2011 RONNIE WHALEN, ZACKARY 537.0 PYLORIC STENOSIS 06/26/2011 RONNIE WHALEN, ZACKARY 537.0 PYLORIC STENOSIS 06/26/2011 RONNIE WHALEN, ZACKARY 537.0 PYLORIC STENOSIS 06/26/2011 RICARDO KEENE, JOSE L 537 .0 PYLORIC STENOSIS 06/26/2011 NILSA WHALEN, STEPHEN 537.0 PYLORIC STENOSIS 06/26/2011 RONNIE WHALEN, ZACKARY 537.0 PYLORIC STENOSIS 06/26/2011 RONNIE WHALEN, ZACKARY 537.0 PYLORIC STENOSIS 08/23/2011 SHABNAM CORREA APRN T 28 5.9 ANEMIA 08/23/2011 SHABNAM CORREA APRN T 33 8.4 CHRONIC PAIN SYNDROME 08/23/2011 STONE DO, JOVAN K 285.9 ANEMIA 08/23/2011 STONE DO, JOVAN K 338.4 CHRONIC PAIN SYNDROME 08/23/2011 SHABNAM CORREA APRN T 28 5.9 ANEMIA 08/23/2011 SHABNAM CORREA APRN T 33 8.4 CHRONIC PAIN SYNDROME 08/23/2011 NICOLLE KEENE ZAYNAB R 285.9 ANEMIA 08/23/2011 NICOLLE KEENE ZAYNAB R 338.4 CHRONIC PAIN SYNDROME 08/23/2011 SHABNAM CORREA APRN T 28 5.9 ANEMIA 08/23/2011 SHABNAM CORREA APRN T 33 8.4 CHRONIC PAIN SYNDROME 08/23/2011 STONE DO, JOVAN K 285.9 ANEMIA 08/23/2011 STONE DO, JOVAN K 338.4 CHRONIC PAIN SYNDROME 08/23/2011 ISSA WHALEN, SANTOS M 28 5.9 ANEMIA 08/23/2011 ISSA WHALEN, SANTOS M 33 8.4 CHRONIC PAIN SYNDROME 08/23/2011 ZACKARY TRUJILLO MD 285.9 ANEMIA 08/23/2011 ZACKARY TRUJILLO MD 338.4 CHRONIC PAIN SYNDROME 08/23/2011 ZACKARY TRUJILLO MD 285.9 ANEMIA 08/23/2011 ZACKARY TRUJILLO MD 338.4 CHRONIC PAIN SYNDROME 08/23/2011 SHABNAM CORREA APRN T 28 5.9 ANEMIA 08/23/2011 SHABNAM CORREA APRN T 33 8.4 CHRONIC PAIN SYNDROME 08/23/2011 SHABNAM CORREA APRN T 28 5.9 ANEMIA 08/23/2011 SHABNAM CORREA APRN T 33 8.4 CHRONIC PAIN SYNDROME 08/23/2011 STONE DO, JOVAN K 285.9 ANEMIA 08/23/2011 STONE DO, JOVAN K 338.4 CHRONIC PAIN SYNDROME 08/23/2011 SHABNAM CORREA APRN T 28 5.9 ANEMIA 08/23/2011 SHABNAM CORREA APRN T 33 8.4 CHRONIC PAIN SYNDROME 08/23/2011 RONNIE WHALEN, ZACKARY 285.9 ANEMIA 08/23/2011 RONNIE WHALEN, ZACKARY 338.4 CHRONIC PAIN SYNDROME 08/23/2011 RONNIE WHALEN, ZACKARY 285.9 ANEMIA 08/23/2011 RONNIE WHALEN, ZACKARY 338.4 CHRONIC PAIN SYNDROME 08/23/2011 RONNIE WHALEN, ZACKARY 285.9 ANEMIA 08/23/2011 ZACKARY TRUJILLO MD 338.4 CHRONIC PAIN SYNDROME 08/23/2011 MADL WOOD LATHER, JOSE L 285 .9 ANEMIA 08/23/2011 MADL WOOD LATHER, JOSE L 338 .4 CHRONIC PAIN SYNDROME 08/23/2011 NILSA WHALEN, ALI 285.9 ANEMIA 08/23/2011 NILSA WHALEN, STEPHEN 338.4 CHRONIC PAIN SYNDROME 08/23/2011 ZACKARY TRUJILLO MD 285.9 ANEMIA 08/23/2011 ZACKARY TRUJILLO MD 338.4 CHRONIC PAIN SYNDROME 08/23/2011 ZACKARY TRUJILLO MD 285.9 ANEMIA 08/23/2011 RONNIE WHALEN, ZACKARY 338.4 CHRONIC PAIN SYNDROME 11/20/2011 SHABNAM CORREA APRN 531.70 GASTRIC ULCER CHRONIC 11/20/2011 SHABNAM CORREA APRN 62 6.2 MENORRHAGIA 11/20/2011 STONE DO, JOVAN K 531.70 GASTRIC ULCER CHRONIC 11/20/2011 STONE , JOVAN K 626.2 MENORRHAGIA 11/20/2011 SHABNAM CORREA APRN 531.70 GASTRIC ULCER CHRONIC 11/20/2011 SHABNAM CORREA APRN 62 6.2 MENORRHAGIA 11/20/2011 LEONEL VALVERDE APRNRICIA R 531.70 GASTRIC ULCER CHRONIC 11/20/2011 NICOLLE KEENE ZAYNAB R 626.2 MENORRHAGIA 11/20/2011 SHABNAM CORREA APRN 531.70 GASTRIC ULCER CHRONIC 11/20/2011 SHABNAM CORREA APRN 62 6.2 MENORRHAGIA 11/20/2011 STONE DO, JOVAN K 531.70 GASTRIC ULCER CHRONIC 11/20/2011 STONE DO, JOVAN K 626.2 MENORRHAGIA 11/20/2011 ISSA WHALEN, SANTOS Workman 531.70 GASTRIC ULCER CHRONIC 11/20/2011 ISSA WHALEN, SANTOS Workman 62 6.2 MENORRHAGIA 11/20/2011 ZACKARY TRUJILLO MD 531.7 0 GASTRIC ULCER CHRONIC 11/20/2011 ZACKARY TRUJILLO MD 626.2 MENORRHAGIA 11/20/2011 ZACKARY TRUJILLO MD 531.7 0 GASTRIC ULCER CHRONIC 11/20/2011 ZACKARY TRUJILLO MD 626.2 MENORRHAGIA 11/20/2011 SHABNAM CORREA APRN T 531.70 GASTRIC ULCER CHRONIC 11/20/2011 SHABNAM CORREA APRN T 62 6.2 MENORRHAGIA 11/20/2011 SHABNAM CORREA APRN T 531.70 GASTRIC ULCER CHRONIC 11/20/2011 SHABNAM CORREA APRN T 62 6.2 MENORRHAGIA 11/20/2011 STONE DO, JOVAN K 531.70 GASTRIC ULCER CHRONIC 11/20/2011 STONE DO, JOVAN K 626.2 MENORRHAGIA 11/20/2011 SHABNAM CORREA APRN T 531.70 GASTRIC ULCER CHRONIC 11/20/2011 SHABNAM CORREA APRN 62 6.2 MENORRHAGIA 11/20/2011 ZACKARY TRUJILLO MD 531.7 0 GASTRIC ULCER CHRONIC 11/20/2011 ZACKARY TRUJILLO MD 626.2 MENORRHAGIA 11/20/2011 ZACKARY TRUJILLO MD 531.7 0 GASTRIC ULCER CHRONIC 11/20/2011 ZACKARY TRUJILLO MD 626.2 MENORRHAGIA 11/20/2011 ZACKARY TRUJILLO MD 531.7 0 GASTRIC ULCER CHRONIC 11/20/2011 ZACKARY TRUJILLO MD 626.2 MENORRHAGIA 11/20/2011 JOSE SILVA APRN L 531 .70 GASTRIC ULCER CHRONIC 11/20/2011 COMFORT SILVA APRNWNYA L 626 .2 MENORRHAGIA 11/20/2011 STEPHEN ASH MD 531.70 GASTRIC ULCER CHRONIC 11/20/2011 STEPHEN ASH MD 626.2 MENORRHAGIA 11/20/2011 ZACKARY TRUJILLO MD 531.7 0 GASTRIC ULCER CHRONIC 11/20/2011 ZACKARY TRUJILLO MD 626.2 MENORRHAGIA 11/20/2011 ZACKARY TRUJILLO MD 531.7 0 GASTRIC ULCER CHRONIC 11/20/2011 ZACKARY TRUJILLO MD 626.2 MENORRHAGIA 04/09/2012 SHABNAM CORREA APRN 28 0.9 ANEMIA, IRON DEFICIENCY 04/09/2012 STONE DO, JOVAN K 280.9 ANEMIA, IRON DEFICIENCY 04/09/2012 SHABNAM CORREA APRN T 28 0.9 ANEMIA, IRON DEFICIENCY 04/09/2012 ZAYNAB VALVERDE APRN R 280.9 ANEMIA, IRON DEFICIENCY 04/09/2012 SHABNAM CORREA APRN T 28 0.9 ANEMIA, IRON DEFICIENCY 04/09/2012 STONE DO, JOVAN K 280.9 ANEMIA, IRON DEFICIENCY 04/09/2012 ISSA WHALEN, SANTOS Workman 28 0.9 ANEMIA, IRON DEFICIENCY 04/09/2012 ZACKARY TRUJILLO MD 280.9 ANEMIA, IRON DEFICIENCY 04/09/2012 ZACKARY TRUJILLO MD 280.9 ANEMIA, IRON DEFICIENCY 04/09/2012 SHABNAM CORREA APRN 28 0.9 ANEMIA, IRON DEFICIENCY 04/09/2012 SHABNAM CORREA APRN 28 0.9 ANEMIA, IRON DEFICIENCY 04/09/2012 STONE DO, JOVAN K 280.9 ANEMIA, IRON DEFICIENCY 04/09/2012 SHABNAM CORREA APRN 28 0.9 ANEMIA, IRON DEFICIENCY 04/09/2012 ZACKARY TRUJILLO MD 280.9 ANEMIA, IRON DEFICIENCY 04/09/2012 ZACKARY TRUJILLO MD 280.9 ANEMIA, IRON DEFICIENCY 04/09/2012 ZACKARY TRUJILLO MD 280.9 ANEMIA, IRON DEFICIENCY 04/09/2012 JOSE SILVA APRN 280 .9 ANEMIA, IRON DEFICIENCY 04/09/2012 NILSA WHALEN, STEPHEN 280.9 ANEMIA, IRON DEFICIENCY 04/09/2012 ZACKARY TRUJILLO MD 280.9 ANEMIA, IRON DEFICIENCY 04/09/2012 ZACKARY TRUJILLO MD 280.9 ANEMIA, IRON DEFICIENCY 07/31/2012 Ot 280.9 IRON DEFIC ANEMIA NOS 07/31/2012 Ot 401.9 HYPE RTENSION NOS 07/31/2012 Ot 716.90 ART HROPATHY NOS- UNSPEC 07/31/2012 Ot V58.69 OTH MED,LT,CURRENT USE 10/18/2012 STONE DO, JOVAN K 788.1 DYSURIA 10/18/2012 STONE DO, JOVAN K 788.41 URINARY FREQUENCY 10/18/2012 ZAYNAB VALVERDE APRN R 788.1 DYSURIA 10/18/2012 ZAYNAB VALVERDE APRN R 788.41 URINARY FREQUENCY 10/18/2012 SHABNAM CORREA APRN 78 8.1 DYSURIA 10/18/2012 SHABNAM CORREA APRN T 788.41 URINARY FREQUENCY 10/18/2012 STONE DO, JOVAN K 788.1 DYSURIA 10/18/2012 STONE DO, JOVAN K 788.41 URINARY FREQUENCY 10/18/2012 ISSA WHALEN, SANTOS Workman 78 8.1 DYSURIA 10/18/2012 ISSA WHALEN, SANTOS Workman 788.41 URINARY FREQUENCY 10/18/2012 ZACKARY TRUJILLO MD 788.1 DYSURIA 10/18/2012 ZACKARY TRUJILLO MD 788.4 1 URINARY FREQUENCY 10/18/2012 ZACKARY TRUJILLO MD 788.1 DYSURIA 10/18/2012 ZACKARY TRUJILLO MD8.4 1 URINARY FREQUENCY 10/18/2012 SHABNAM CORREA APRN T 78 8.1 DYSURIA 10/18/2012 SHABNAM CORREA APRN T 788.41 URINARY FREQUENCY 10/18/2012 SHABNAM CORREA APRN T 78 8.1 DYSURIA 10/18/2012 SHABNAM CORREA APRN T 788.41 URINARY FREQUENCY 10/18/2012 STONE DO, JOVAN K 788.1 DYSURIA 10/18/2012 STONE DO, JOVAN K 788.41 URINARY FREQUENCY 10/18/2012 SHABNAM CORREA APRN T 78 8.1 DYSURIA 10/18/2012 SHABNAM CORREA APRN T 788.41 URINARY FREQUENCY 10/18/2012 ZACKARY TRUJILLO MD 788.1 DYSURIA 10/18/2012 ZACKARY TRUJILLO MD8.4 1 URINARY FREQUENCY 10/18/2012 ZACKARY TRUJILLO MD 788.1 DYSURIA 10/18/2012 ZACKARY TRUJILLO MD8.4 1 URINARY FREQUENCY 10/18/2012 ZACKARY TRUJILLO MD 788.1 DYSURIA 10/18/2012 ZACKARY TRUJILLO MD8.4 1 URINARY FREQUENCY 10/18/2012 JOSE SILVA APRN 788 .1 DYSURIA 10/18/2012 JOSE SILVA APRN 788 .41 URINARY FREQUENCY 10/18/2012 STEPHEN ASH MD 788.1 DYSURIA 10/18/2012 STEPHEN ASH MD 788.41 URINARY FREQUENCY 10/18/2012 ZACKARY TRUJILLO MD 788.1 DYSURIA 10/18/2012 HUERTER MD, ZACKARY 788.4 1 URINARY FREQUENCY 10/18/2012 ZACKARY TRUJILLO MD 788.1 DYSURIA 10/18/2012 ZACKARY TRUJILLO MD8.4 1 URINARY FREQUENCY 12/12/2012 Ot 724.2 LUMBAGO 01/13/2013 NICOLLE KEENE ZAYNAB R 789.09 flank pain left 01/13/2013 SHABNAM CORREA APRN T 789.09 flank pain left 01/13/2013 JOVAN STONE DO K 789.09 flank pain left 01/13/2013 SANTOS PARSONS MD 789.09 flank pain left 01/13/2013 ZACKARY TRUJILLO MD 789.0 9 flank pain left 01/13/2013 ZACKARY TRUJILLO MD9.0 9 flank pain left 01/13/2013 SHABNAM CORREA APRN 789.09 flank pain left 01/13/2013 SHABNAM CORREA APRN 789.09 flank pain left 01/13/2013 JOVAN STONE DO K 789.09 flank pain left 01/13/2013 SHABNAM CORREA APRN T 789.09 flank pain left 01/13/2013 ZACKARY TRUJILLO MD 789.0 9 flank pain left 01/13/2013 ZACKARY TRUJILLO MD 789.0 9 flank pain left 01/13/2013 ZACKARY TRUJILLO MD 789.0 9 FLANK PAIN LEFT 01/13/2013 JLUIS SILVA APRNNYPablo Turk 789 .09 FLANK PAIN LEFT 01/13/2013 NILSA WHALEN, STEPHEN 789.09 FLANK PAIN LEFT 01/13/2013 ZACKARY TRUJILLO MD 789.0 9 FLANK PAIN LEFT 01/13/2013 ZACKARY TRUJILLO MD 789.0 9 FLANK PAIN LEFT 04/03/2013 SANTOS PARSONS MD Ot 531.90 STOMACH ULCER NOS 04/03/2013 SANTOS PARSONS MD Ot 553.3 DIAPHRAGMATIC HERNIA 06/16/2013 SHABNAM CORREA APRN 789.02 ABDOMINAL PAIN LEFT UPPER QUADRANT 06/16/2013 JEN STONE DOA K 789.02 ABDOMINAL PAIN LEFT UPPER QUADRANT 06/16/2013 SANTOS PARSONS MD 789.02 ABDOMINAL PAIN LEFT UPPER QUADRANT 06/16/2013 ZACKARY TRUJILLO MD9.0 2 ABDOMINAL PAIN LEFT UPPER QUADRANT 06/16/2013 HUERTER MD, ZACKARY 789.0 2 ABDOMINAL PAIN LEFT UPPER QUADRANT 06/16/2013 SHABNAM CORREA APRN T 789.02 ABDOMINAL PAIN LEFT UPPER QUADRANT 06/16/2013 SHABNAM CORREA APRN 789.02 ABDOMINAL PAIN LEFT UPPER QUADRANT 06/16/2013 JOVAN STONE DO 789.02 ABDOMINAL PAIN LEFT UPPER QUADRANT 06/16/2013 SHABNAM CORREA APRN 789.02 ABDOMINAL PAIN LEFT UPPER QUADRANT 06/16/2013 ZACKARY TRUJILLO MD 789.0 2 ABDOMINAL PAIN LEFT UPPER QUADRANT 06/16/2013 ZACKARY TRUJILLO MD 789.0 2 ABDOMINAL PAIN LEFT UPPER QUADRANT 06/16/2013 ZACKARY TRUJILLO MD 789.0 2 ABDOMINAL PAIN LEFT UPPER QUADRANT 06/16/2013 JOSE SILVA APRN 789 .02 ABDOMINAL PAIN LEFT UPPER QUADRANT 06/16/2013 STEPHEN ASH MD 789.02 ABDOMINAL PAIN LEFT UPPER QUADRANT 06/16/2013 ZACKARY TRUJILLO MD 789.0 2 ABDOMINAL PAIN LEFT UPPER QUADRANT 06/16/2013 ZACKARY TRUJILLO MD 789.0 2 ABDOMINAL PAIN LEFT UPPER QUADRANT 11/27/2013 ZACKARY TRUJILLO MD 460 ACUTE NASOPHARYNGITIS (COMMON COLD) 11/27/2013 ZACKARY TRUJILLO MD 460 ACUTE NASOPHARYNGITIS (COMMON COLD) 11/27/2013 SHABNAM CORREA APRN 46 0 ACUTE NASOPHARYNGITIS (COMMON COLD) 11/27/2013 SHABNAM CORREA APRN 46 0 ACUTE NASOPHARYNGITIS (COMMON COLD) 11/27/2013 JOVAN STONE DO 460 ACUTE NASOPHARYNGITIS (COMMON COLD) 11/27/2013 SHABNAM CORREA APRN 46 0 ACUTE NASOPHARYNGITIS (COMMON COLD) 11/27/2013 ZACKARY TRUJILLO MD 460 ACUTE NASOPHARYNGITIS (COMMON COLD) 11/27/2013 ZACKARY TRUJILLO MD 460 ACUTE NASOPHARYNGITIS (COMMON COLD) 11/27/2013 ZACKARY TRUJILLO MD 460 ACUTE NASOPHARYNGITIS (COMMON COLD) 11/27/2013 JOSE SILVA APRN 460 ACUTE NASOPHARYNGITIS (COMMON COLD) 11/27/2013 STEPHEN ASH MD 460 ACUTE NASOPHARYNGITIS (COMMON COLD) 11/27/2013 ZACKARY TRUJILLO MD 460 ACUTE NASOPHARYNGITIS (COMMON COLD) 11/27/2013 ZACKARY TRUJILLO MD 460 ACUTE NASOPHARYNGITIS (COMMON COLD) 12/31/2013 ZACKARY TRUJILLO MD 724.4 THORACIC OR LUMBOSACRAL NEURITIS OR RADICULITIS UNSPECIFIED 12/31/2013 SHABNAM CORREA APRN 72 4.4 THORACIC OR LUMBOSACRAL NEURITIS OR RADICULITIS UNSPECIFIED 12/31/2013 SHABNAM CORREA APRN 72 4.4 THORACIC OR LUMBOSACRAL NEURITIS OR RADICULITIS UNSPECIFIED 12/31/2013 JEN STONE DOA K 724.4 THORACIC OR LUMBOSACRAL NEURITIS OR RADICULITIS UNSPECIFIED 12/31/2013 SHABNAM CORREA APRN 72 4.4 THORACIC OR LUMBOSACRAL NEURITIS OR RADICULITIS UNSPECIFIED 12/31/2013 ZACKARY TRUJILLO MD 724.4 THORACIC OR LUMBOSACRAL NEURITIS OR RADICULITIS UNSPECIFIED 12/31/2013 ZACKARY TRUJILLO MD 724.4 THORACIC OR LUMBOSACRAL NEURITIS OR RADICULITIS UNSPECIFIED 12/31/2013 ZACKARY TRUJILLO MD 724.4 THORACIC OR LUMBOSACRAL NEURITIS OR RADICULITIS UNSPECIFIED 12/31/2013 JOSE SILVA APRN 724 .4 THORACIC OR LUMBOSACRAL NEURITIS OR RADICULITIS UNSPECIFIED 12/31/2013 STEPHEN ASH MD 724.4 THORACIC OR LUMBOSACRAL NEURITIS OR RADICULITIS UNSPECIFIED 12/31/2013 ZACKARY TRUJILLO MD 724.4 THORACIC OR LUMBOSACRAL NEURITIS OR RADICULITIS UNSPECIFIED 12/31/2013 ZACKARY TRUJILLO MD 724.4 THORACIC OR LUMBOSACRAL NEURITIS OR RADICULITIS UNSPECIFIED 06/16/2014 CHASE DO, JOVAN K 785.1 PALPITATIONS 06/16/2014 SHABNAM CORREA APRN 78 5.1 PALPITATIONS 06/16/2014 ZACKARY TRUJILLO MD 785.1 PALPITATIONS 06/16/2014 ZACKARY TRUJILLO MD 785.1 PALPITATIONS 06/16/2014 ZACKARY TRUJILLO MD 785.1 PALPITATIONS 06/16/2014 JOSE SILVA APRN L 785 .1 PALPITATIONS 06/16/2014 STEPHEN ASH MD 785.1 PALPITATIONS 06/16/2014 RONNIE WHALEN, ZACKARY 785.1 PALPITATIONS 06/16/2014 RONNIE WHALEN, ZACKARY 785.1 PALPITATIONS 07/06/2014 SHABNAM CORREA APRN 46 1.9 SINUSITIS ACUTE 07/06/2014 ZACKARY TRUJILLO MD 461.9 SINUSITIS ACUTE 07/06/2014 RONNIE WHALEN, ZACKARY 461.9 SINUSITIS ACUTE 07/06/2014 RONNIE WHALEN, ZACKARY 461.9 SINUSITIS ACUTE 07/06/2014 JOSE SILVA APRN L 461 .9 SINUSITIS ACUTE 07/06/2014 NILSA WHALEN, STEPHEN 461.9 SINUSITIS ACUTE 07/06/2014 ZACKARY TRUJILLO MD 461.9 SINUSITIS ACUTE 07/06/2014 ZACKARY TRUJILLO MD 461.9 SINUSITIS ACUTE 07/23/2014 JUAN ZEPEDA, CONNOR M Ot 785 .1 08/24/2014 JUAN ZEPEDA, CONNOR M Ot 785 .1 09/20/2014 JUAN ZEPEDA, CONNOR M Ot 785 .1 PALPITATIONS 09/28/2014 ROWDY SILVA APRNA L 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 09/28/2014 RICARDO KEENE, JOSE L 465 .9 UPPER RESPIRATORY INFECTION 09/28/2014 NILSA WHALEN, STEPHEN 381.9 UNSPECIFIED EUSTACHIAN TUBE DISORDER 09/28/2014 STEPHEN ASH MD 465.9 UPPER RESPIRATORY INFECTION 09/28/2014 ZACKARY TRUJILLO MD 381.9 UNSPECIFIED EUSTACHIAN TUBE DISORDER 09/28/2014 ZACKARY TRUJILLO MD 465.9 UPPER RESPIRATORY INFECTION 09/28/2014 ZACKARY TRUJILLO MD 381.9 UNSPECIFIED EUSTACHIAN TUBE DISORDER 09/28/2014 ZACKARY TRUJILLO MD 465.9 UPPER RESPIRATORY INFECTION 10/02/2014 ZACKARY TRUJILLO MD F Ot 721 .1 10/07/2014 NILSA WHALEN, STEPHNE 780.57 UNSPECIFIED SLEEP APNEA 10/07/2014 STEPHEN ASH MD 780.97 ALTERED MENTAL STATUS 10/07/2014 NILSA WHALEN, ALI 785.1 PALPITATIONS 10/07/2014 ZACKARY TRUJILLO MD 780.5 7 UNSPECIFIED SLEEP APNEA 10/07/2014 ZACKARY TRUJILLO MD 780.9 7 ALTERED MENTAL STATUS 10/07/2014 ZACKARY TRUJILLO MD 785.1 PALPITATIONS 10/07/2014 ZACKARY TRUJILLO MD 780.5 7 UNSPECIFIED SLEEP APNEA 10/07/2014 ZACKARY TRUJILLO MD 780.9 7 ALTERED MENTAL STATUS 10/07/2014 ZCAKARY TRUJILLO MD 785.1 PALPITATIONS 10/09/2014 Ot 285.9 10/09/2014 Ot 401.9 10/09/2014 Ot 535.50 10/09/2014 Ot 716.90 10/09/2014 Ot V58.69 10/09/2014 Ot 285.9 10/09/2014 SHABNAM CORREA Ot 789.02 10/09/2014 SHABNAM CORREA Ot 722.93 10/09/2014 ZACKARY TRUJILLO MD Ot 721 .1 10/09/2014 CONNOR ALEXIS Ot 785 .1 10/30/2014 ZACKARY TRUJILLO MD 461.9 ACUTE SINUSITIS UNSPECIFIED 11/12/2014 ZACKARY TRUJILLO MD 386.1 0 PERIPHERAL VERTIGO UNSPECIFIED 11/12/2014 ZACKARY TRUJILLO MD 721.0 CERVICAL SPONDYLOSIS WITHOUT MYELOPATHY 05/03/2017 Ot 285.9 ANEM IA NOS 05/03/2017 Ot 401.9 HYPE RTENSION NOS 05/03/2017 Ot 535.50 UNS P GASTRITIS GASTRODUODENITIS W/O ME 05/03/2017 Ot 716.90 ART HROPATHY NOS- UNSPEC 05/03/2017 Ot V58.69 OTH MED,LT,CURRENT USE 05/03/2017 Ot 285.9 ANEM IA NOS 05/03/2017 SHABNAM CORREA Ot 789.02 ABDOMINAL PAIN, LEFT UPPER QUADRANT 05/03/2017 SHABNAM CORREA Ot 722.93 DISC DIS NEC/NOS-LUMBAR 05/03/2017 ZACKARY TRUJILLO MD Ot 721 .1 CERV SPONDYL W MYELOPATH 05/03/2017 CONNOR ALEXIS Ot 785 .1 PALPITATIONS 05/09/2017 DONTRELL ESTRADA MD Ot M48.0 6 SPINAL STENOSIS, LUMBAR REGION 05/09/2017 DONTRELL ESTRADA MD Ot 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, 06/05/2017 DONTRELL ESTRADA MD Ot M48.0 6 SPINAL STENOSIS, LUMBAR REGION 06/05/2017 NATALIE WHALEN, DONTRELL Juares Ot 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, 02/05/2018 Ot 285.9 ANEM IA NOS 02/05/2018 SHABNAM CORREA Ot 789.02 ABDOMINAL PAIN, LEFT UPPER QUADRANT 02/05/2018 SHABNAM CORREA Ot 722.93 DISC DIS NEC/NOS-LUMBAR 02/05/2018 RONNIE WHALEN, ZACKARY Gustafson Ot 721 .1 CERV SPONDYL W MYELOPATH 02/05/2018 JUAN ZEPEDA, CONNOR Workman Ot 785 .1 PALPITATIONS 10/01/2018 Ot 285.9 ANEM IA NOS 10/01/2018 SHABNAM CORREA [employer] Ot 789.02 ABDOMINAL PAIN, LEFT UPPER QUADRANT 10/01/2018 SHABNAM CORREA Ot 722.93 DISC DIS NEC/NOS-LUMBAR 10/01/2018 RONNIE WHALEN, ZACKARY Gustafson Ot 721 .1 CERV SPONDYL W MYELOPATH 10/01/2018 JUAN ZEPEDA, CONNOR Workman Ot 785 .1 PALPITATIONS Procedures Code Description [place] [address] UA W / CULTURE IF INDICATED 10/18/2012 62969 HEMO GLOBIN (IN-HOUSE) 10/18/2012 73249 CULT URE URINE 01/13/2013 03555 UA L IDANIA DIP 01/13/[address] A BDOMEN & PELVIS W/ & W/O CONTRAST 06/16/2013 79732 CBC 06/16/2013 26689 UA W / CULTURE IF INDICATED 07/08/2013 Obstetric Margret Recio 07/09/2013 39340 ROUT INE VENIPUNCTURE 11/27/2013 84397 CBC 11/27/2013 28694 MRI SPINE (LUMBAR) W/O CONTRAST 12/31/2013 NeurologDontrell Cam 01/01/2014 78965 CMP 06/17/2014 63546 LIPI D PANEL 06/17/2014 37698 MAGNESIUM 06/17/2014 67117 TSH 06/17/2014 30145 CBC 06/17/2014 84321 EKG, TRACING (IN-HOUSE) 06/17/2014 21986 MARSHALL ER MONITOR (OUTPATIENT) 06/17/2014 CARDIOLOG STEPHEN ASH 06/17/2014 49831 ROUT INE VENIPUNCTURE 06/17/2014 77591 XRAY CERVICAL SPINE, 2 OR 3 VIEWS 08/13/2014 Physical P Dontrell rae 08/13/2014 92086 MRI SPINE (CERVICAL), W/CONTRAST 09/07/2014 92280 NUCL EAR STRESS TESTING 11/12/2014 61284 PREG OSIRIS TEST, SERUM (RML) 11/12/2014 85421 ECHO 2D 11/12/2014 70965 OXIMETRY 11/12/2014 PULMONARY SUZIE ZANE 11/12/2014 Results Test Result Range TSH+Free T4 - 05/11/16 11:57 TSH 10.490 uIU/mL 0.450-4.500 T4,Free(Direct) 0.77 ng/dL 0.82-1.77 CBC With Differential/Platelet - 6 11:57 WBC 6.5 x10E3/uL 3.4-10.8 RBC 4.33 x10E6/uL 3.77-5.28 Hemoglobin 12.3 g/dL 11.1-15.9 Hematocrit 36.8 % 34.0-46.6 MCV 85 fL 79-97 MCH 28.4 pg 26.6-33.0 MCHC 33.4 g/dL 31.5-35.7 RDW 15.0 % 12.3-15.4 Platelets 336 x10E3/uL 150-379 Neutrophils 50 % Lymphs 39 % Monocytes 7 % Eos 3 % Basos 1 % Neutrophils (Absolute) 3.3 x10E3/uL 1.4- 7.0 Lymphs (Absolute) 2.5 x10E3/uL 0.7-3.1 Monocytes(Absolute) 0.4 x10E3/uL 0.1-0.9 Eos (Absolute) 0.2 x10E3/uL 0.0-0.4 Baso (Absolute) 0.1 x10E3/uL 0.0-0.2 Immature Granulocytes 0 % Immature Grans (Abs) 0.0 x10E3/uL 0.0-0. 1 Comp. Metabolic Panel (14) - 05/11/16 11 :57 Glucose, Serum 100 mg/dL 65-99 BUN 12 mg/dL 6-24 Creatinine, Serum 0.80 mg/dL 0.57-1.00 eGFR If NonAfricn Am 89 mL/min/1.73 >59 eGFR If Africn Am 103 mL/min/1.73 >5 9 BUN/Creatinine Ratio 15 9-23 Sodium, Serum 138 mmol/L 134-144 Potassium, Serum 4.4 mmol/L 3.5-5.2 Chloride, Serum 99 mmol/L 97-108 Carbon Dioxide, Total 22 mmol/L 18-29 Calcium, Serum 9.4 mg/dL 8.7-10.2 Protein, Total, Serum 6.6 g/dL 6.0-8.5 Albumin, Serum 4.1 g/dL 3.5-5.5 Globulin, Total 2.5 g/dL 1.5-4.5 A/G Ratio 1.6 1.1-2.5 Bilirubin, Total <0.2 mg/dL 0.0-1.2 Alkaline Phosphatase, S 47 IU/L 39-117 AST (SGOT) 29 IU/L 0-40 ALT (SGPT) 29 IU/L 0-32 MYCOPLASMA, IgM - 09/10/17 12:27 MYCOPLASMA PNEUMONIAE ANTIBODY (IGM) 97 U/mL NRG TSH w/ FREE T4 - 12/05/18 15:57 TSH 2.43 mIU/L NRG T4, FREE 0.8 ng/dL 0.8-1.8 - PANEL (PROFILE 1) - 12/12/18 14 :57 Prescribed Drug 1 Tramadol NRG Creatinine 84.2 mg/dL > or = 20.0 pH 7.19 4.5 - 9.0 Oxidant NEGATIVE mcg/mL <200 Amphetamines NEGATIVE ng/mL <500 medMATCH Amphetamines CONSISTENT NRG Benzodiazepines POSITIVE ng/mL <100 Marijuana Metabolite NEGATIVE ng/mL <20 medMATCH Marijuana Metab CONSISTENT NRG Cocaine Metabolite NEGATIVE ng/mL <150 medMATCH Cocaine Metab CONSISTENT NRG Opiates POSITIVE ng/mL <100 Oxycodone NEGATIVE ng/mL <100 medMATCH Oxycodone CONSISTENT NRG COMMENT NRG Alphahydroxyalprazolam NEGATIVE ng/mL <25 medMATCH aOH alprazolam CONSISTENT NRG Alphahydroxymidazolam NEGATIVE ng/mL < 50 medMATCH aOH midazolam CONSISTENT NRG Alphahydroxytriazolam NEGATIVE ng/mL < 50 medMATCH aOH triazolam CONSISTENT NRG Aminoclonazepam NEGATIVE ng/mL <25 medMATCH Aminoclonazepam CONSISTENT NRG Hydroxyethylflurazepam NEGATIVE ng/mL <50 medMATCH OH,Et flurazepam CONSISTENT NR G Lorazepam NEGATIVE ng/mL <50 medMATCH Lorazepam CONSISTENT NRG Nordiazepam 343 ng/mL <50 medMATCH Nordiazepam CONSISTENT NRG Oxazepam 466 ng/mL <50 medMATCH Oxazepam CONSISTENT NRG Temazepam 786 ng/mL <50 medMATCH Temazepam CONSISTENT NRG Codeine NEGATIVE ng/mL <50 medMATCH Codeine CONSISTENT NRG Hydrocodone 95 ng/mL <50 medMATCH Hydrocodone INCONSISTENT NRG Hydromorphone 159 ng/mL <50 medMATCH Hydromorphone INCONSISTENT NRG Morphine NEGATIVE ng/mL <50 medMATCH Morphine CONSISTENT NRG Norhydrocodone 591 ng/mL <50 medMATCH Norhydrocodone INCONSISTENT NR G Prescribed Drug 2 Diazepam NRG Barbiturates NEGATIVE ng/mL <300 medMATCH Barbiturates CONSISTENT NRG Methadone Metabolite NEGATIVE ng/mL <100 medMATCH Methadone Metab CONSISTENT NRG Phencyclidine NEGATIVE ng/mL <25 medMATCH Phencyclidine CONSISTENT NRG PDM - 09 PANEL (PROFILE 1) - 01/01/19 14 :46 Prescribed Drug 1 Tramadol NRG Creatinine 11.9 mg/dL > or = 20.0 pH 6.81 4.5 - 9.0 Oxidant NEGATIVE mcg/mL <200 Amphetamines NEGATIVE ng/mL <500 medMATCH Amphetamines CONSISTENT NRG Benzodiazepines NEGATIVE CONFIRMED ng/mL <100 Marijuana Metabolite NEGATIVE ng/mL <20 medMATCH Marijuana Metab CONSISTENT NRG Cocaine Metabolite NEGATIVE ng/mL <150 medMATCH Cocaine Metab CONSISTENT NRG Opiates NEGATIVE ng/mL <100 medMATCH Opiates CONSISTENT NRG Oxycodone NEGATIVE ng/mL <100 medMATCH Oxycodone CONSISTENT NRG COMMENT NRG Alphahydroxyalprazolam NEGATIVE ng/mL <25 medMATCH aOH alprazolam CONSISTENT NRG Alphahydroxymidazolam NEGATIVE ng/mL < 50 medMATCH aOH midazolam CONSISTENT NRG Alphahydroxytriazolam NEGATIVE ng/mL < 50 medMATCH aOH triazolam CONSISTENT NRG Aminoclonazepam NEGATIVE ng/mL <25 medMATCH Aminoclonazepam CONSISTENT NRG Hydroxyethylflurazepam NEGATIVE ng/mL <50 medMATCH OH,Et flurazepam CONSISTENT NR G Lorazepam NEGATIVE ng/mL <50 medMATCH Lorazepam CONSISTENT NRG Nordiazepam NEGATIVE ng/mL <50 medMATCH Nordiazepam INCONSISTENT NRG Oxazepam NEGATIVE ng/mL <50 medMATCH Oxazepam INCONSISTENT NRG Temazepam NEGATIVE ng/mL <50 medMATCH Temazepam INCONSISTENT NRG Prescribed Drug 2 Diazepam NRG Specific Alviso 1.002 > or = 1.003 Abnormal Specimen Validity Test: NRG Barbiturates NEGATIVE ng/mL <300 medMATCH Barbiturates CONSISTENT NRG Methadone Metabolite NEGATIVE ng/mL <100 medMATCH Methadone Metab CONSISTENT NRG Phencyclidine NEGATIVE ng/mL <25 medMATCH Phencyclidine CONSISTENT NRG Encounters ACCT No. Visit Date/Time Discharge Status Pt. Type Provider Facility Loc./Unit Complaint [id number] 05/12/2016 08:46:00 Document Registration [id number] 11/12/2014 11:57:00 11/12/2014 23:59: 59 CLS Outpatient ZACKARY TRUJILLO MD [id number] 10/15/2014 16:24:00 10/15/2014 23:59: 59 CLS Outpatient ZACKARY TRUJILLO MD [id number] 10/07/2014 08:39:00 10/07/2014 23:59: 59 CLS Outpatient STEPHEN ASH MD [id number] 09/28/2014 15:22:00 09/28/2014 23:59: 59 CLS Outpatient JOSE SILVA APRN [id number] 09/07/2014 14:33:00 09/07/2014 23:59: 59 CLS Outpatient ZACKARY TRUJILLO MD [id number] 08/13/2014 08:40:00 08/13/2014 23:59: 59 CLS Outpatient ZACKARY TRUJILLO MD [id number] 07/24/2014 10:57:00 07/24/2014 23:59: 59 CLS Outpatient ZACKARY TRUJILLO MD [id number] 07/06/2014 10:34:00 07/06/2014 23:59: 59 CLS Outpatient SHABNAM CORREA APRN [id number] 06/17/2014 15:56:00 06/17/2014 23:59: 59 CLS Outpatient JOVAN STONE DO [id number] 06/13/2014 13:10:00 06/13/2014 23:59: 59 CLS Outpatient SHABNAM CORREA APRN [id number] 05/05/2014 15:11:00 05/05/2014 23:59: 59 CLS Outpatient SHABNAM CORREA APRN [id number] 12/31/2013 16:35:00 12/31/2013 23:59: 59 CLS Outpatient ZACKARY TRUJILLO MD [id number] 11/27/2013 14:50:00 11/27/2013 23:59: 59 CLS Outpatient ZACKARY TRUJILLO MD [id number] 07/24/2013 12:34:00 07/24/2013 23:59: 59 CLS Outpatient SANTOS PARSONS MD [id number] 07/08/2013 14:39:00 07/08/2013 23:59: 59 CLS Outpatient STONE JOVAN SMITH [id number] 06/16/2013 12:28:00 06/16/2013 23:59: 59 CLS Outpatient SHABNAM CORREA APRN [id number] 01/13/2013 11:36:00 01/13/2013 23:59: 59 CLS Outpatient NICOLLE MERINONZAYNAB Oliver [id number] 10/18/2012 15:28:00 10/18/2012 23:59: 59 [place] [id number] 04/15/2012 18:02:00 04/15/2012 23:59:5 9 CLS Outpatient SHABNAM CORREA APRN [id number] 04/15/2012 18:02:00 04/15/2012 23:59: 59 CLS Outpatient SHABNAM CORREA APRN [id number] 10/16/2019 15:20:00 10/16/2019 23:59:5 9 CLS Outpatient ZACKARY TRUJILLO MD [facility] [id number] 01/01/2019 15:40:00 Document Registration [id number] 12/12/2018 14:40:00 Document Registration [id number] 12/05/2018 15:40:00 Document Registration [id number] 09/10/2017 11:55:00 Document Registration [id number] 05/05/2017 08:36:00 017 23:59:59 CLS Outpatient DONTRELL ESTRADA MD [facility] RAD BACK PAIN, RADICULOPATH Y [id number] 10/15/2014 07:45:00 015 23:59:59 CLS Preadmit NILSA WHALEN FACC, STEPHEN FACP CCDS [facility] CARD PALPATATIONS [id number] 10/14/2014 13:00:00 015 23:59:59 CLS Preadmit NILSA WHALEN FACCSTEPHEN FACP CCDS [facility] CARD PALPATATIONS [id number] 09/21/2014 08:30:00 015 23:59:59 CLS Preadmit CONNOR ALEXIS [facility] CARD PALPITATIONS [id number] 06/22/2014 14:59:00 015 00:01:00 DIS Outpatient CONNOR ALEXIS [facility] CARD PALPITATIONS [id number] 09/11/2014 13:13:00 23:59:59 CLS Outpatient ZACKARY TRUJLILO MD [facility] RAD NECK PAIN, PARASTHESIA LEFT ARM [id number] 01/12/2014 08:36:00 014 23:59:59 CLS Outpatient SHABNAM CORREA [facility] RAD LT LUMBAR RADICULOPATH Y [id number] 07/02/2013 08:54:00 013 23:59:59 CLS Outpatient SHABNAM CORREA [facility] RAD ABD PAIN, LUQ PAIN [id number] 04/02/2013 22:33:00 013 12:07:00 DIS Outpatient SANTOS PARSONS MD [facility] SDC INTRACTABLE ABD PAIN [id number] 10/09/2014 15:15:00 Document Registration [id number] 10/09/2014 15:14:00 Document Registration [id number] 10/09/2014 15:14:00 Document Registration [id number] 12/12/2012 18:20:00 Document Registration [id number] 08/01/2012 00:00:00 Document Registration [id number] 05/09/2012 15:43:00 Document Registration [id number] 04/22/2012 13:29:00 Document Registration [id number] 04/11/2010 14:48:00 Document Registration [id number] 02/18/2010 11:03:00 Document Registration
--- OUTSIDE RECORDS SUMMARY | 2020-02-22 17:36 | XMS REPORT ---
Author Author Marion TRUJILLO Organization [facility] Address [address] [place] [address] Care Team Providers Care [employer]otic [employer] Name Role Phone ZACKARY TRUJILLO Unavailable PROBLEMS Type Condition ICD9-CM Code XMN62-AD Code Onset Dates Condition S tatus SNOMED Code Problem Dyspepsia R10.13 Active 529564133 Problem History of anemia Z86.2 Active 27 9649972 Problem Cervical disc disease M50.90 Active 011976264 Problem Neck pain M54.2 Active [id number] ALLERGIES No Information ENCOUNTERS Encounter Location Date Diagnosis [facility] [address] [facility] [id number] [address] [place] [phone] Dec, Cervical disc disease M50.90 [facility] [address] [facility] [id number] [address] [place] [phone] Nov, Cervical disc disease M50.90 [facility] [address] [facility] [id number] [address] [place] [id number] Nov, Cervical disc disease M50.90 [facility] [address] [place] [id number] [address] [place] [phone] Oct, Cervical disc disease M50.90 [facility] [address] [place] [place] [id number] [address] [place] [id number] Oct, Cervical disc disease M50.90 and Acute non-recurrent maxillary sinusitis J01.00 [facility] [address] [facility] [id number] [address] [place] [phone] Sep, Cervical disc disease M50.90 [facility] [address] [facility] [id number] [address] [place] [phone] Sep, [facility] [address] [facility] [id number] [address] [place] [phone] Sep, Fatigue, unspecified type R5 3.83 and Cough R05 [facility] [address] [facility] [id number] [address] [place] [phone] Aug, Cervical disc disease M50.90 [facility] [address] [facility] [id number] [address] [place] [phone] Aug, Sore throat J02.9 ; Canker s ore K12.0 and History of anemia Z86.2 [facility] [address] [facility] [id number] [address] [place] [id number] Jul, Cervical disc disease M50.90 [facility] [address] [facility] [id number] [address] [place] [id number] Jun, Cervical disc disease M50.90 [facility] [address] [place] [id number] [address] [place] [id number] Jun, Cervical disc disease M50.90 [facility] [address] [facility] [id number] [address] [place] [phone] May, Cervical disc disease M50.90 [facility] [address] [facility] [id number] [address] [place] [id number] Apr, Cervical disc disease M50.90 [facility] [address] [facility] [id number] [address] [place] [phone] Apr, [facility] [address] [facility] [id number] [address] [place] [id number] Feb, Cervical disc disease M50.90 [facility] [address] [facility] [id number] [address] [place] [id number] January, Cervical disc disease M50.90 [facility] [address] [facility] [id number] [address] [place] [phone] Nov, [facility] [address] [facility] [id number] [address] [place] [id number] Nov, Cervical disc disease M50.90 [facility] [address] [id number] [address] [place] [phone] Nov, Acute cystitis with hematuri a N30.01 and Dysuria R30.0 [facility] [address] [id number] [address] [place] [id number] 10 Oct, 2016 Cervical disc disease M50.90 and Acute non-recurrent frontal sinusitis J01.10 [facility] [address] [id number] [address] [place] [phone] Sep, Neck pain M54.2 [facility] [address] [id number] [address] [place] [phone] Sep, [facility] [address] [id number] [address] [place] [phone] Aug, Cervical disc disease M50.90 [facility] [address] [id number] [address] [place] [id number] Jul, [facility] [address] [id number] [address] [place] [phone] Jun, [facility] [address] [id number] [address] [place] [id number] May, [facility] [address] [facility] [id number] [address] [place] [id number] May, Screening for diabetes emilio tu Z13.1 ; Chronic fatigue R53.82 and Edema, unspecified type R60.9 [facility] [address] [id number] [address] [place] [phone] Apr, Neck pain M54.2 [facility] [address] [id number] [address] [place] [phone] Mar, [facility] [address] [id number] [address] [place] [id number] Mar, Neck pain M54.2 [facility] [address] [id number] [address] [place] [id number] Feb, Cervical disc disease M50.90 [facility] [address] [id number] [address] [place] [id number] Feb, Cervical disc disease M50.90 [facility] [address] [id number] [address] [place] [phone] January, [facility] [address] [id number] [address] [place] [id number] January, [facility] [address] [id number] [address] [place] [id number] January, Cervical disc disease M50.90 [facility] [address] [id number] [address] [place] [id number] January, [facility] [address] [id number] [address] [place] [id number] January, [facility] [address] [id number] [address] [place] [phone] Dec, Cervical disc disease M50.90 [facility] [address] [id number] [address] [place] [id number] Nov, Cervical disc disease M50.90 [facility] [address] [id number] [address] [place] [id number] Oct, Cervical disc disease M50.90 [facility] [address] [id number] [address] [place] [id number] Sep, Cervical disc disease M50.90 [facility] [address] [id number] [address] [place] [id number] Aug, Dental caries K02.9 and Enco unter for dental examination Z01.20 [facility] [address] [id number] [address] [place] [phone] Aug, [facility] [address] [id number] [address] [place] [id number] Aug, [facility] [address] [id number] [address] [place] [id number] 08 Aug, 2015 Encounter for dental examina tion Z01.20 [facility] [address] [id number] [address] [place] [id number] 16 Jul, 2015 [facility] [address] [id number] [address] [place] [phone] Jun, Sinusitis J32.9 and Cervical disc disease M50.90 [facility] [address] [id number] [address] [place] [phone] Jun, [facility] [address] [id number] [address] [place] [phone] 24 May, 2015 [facility] [address] [id number] [address] [place] [phone] May, [facility] [address] [id number] [address] [place] [phone] May, [facility] [address] [id number] [address] [place] [phone] May, [facility] [address] [id number] [address] [place] [id number] Apr, Cervical spondylosis without myelopathy 721.0 [facility] [address] [id number] [address] [place] [id number] Mar, [facility] [address] [id number] [address] [place] [id number] January, Cervical spondylosis without myelopathy 721.0 [facility] [address] [id number] [address] [place] [phone] 28 Dec, 2014 [facility] [address] [id number] [address] [place] [id number] 14 Dec, 2014 [facility] [address] [id number] [address] [place] [phone] 13 Dec, 2014 [facility] [address] [id number] [address] [place] [address], [place] [address] Nov, [facility] [address] [id number] [address] [place] [address], [place] [address] Nov, [facility] [address] [id number] [address] [place] [address], [place] [address] Oct, 2014 [facility] [address] [id number] [address] [place] [address], [place] [address] Oct, 2014 [facility] [address] [id number] [address] [place] [address], [place] [address] Oct, 2014 [facility] [address] [id number] [address] [place] [address], [place] [address] Oct, 2014 [facility] [address] [id number] [address] [place] [address], [place] [address] Oct, 2014 [facility] [address] [id number] [address] [place] [address], [place] [address] Oct, 2014 [facility] [address] [id number] [address] [place] [address], [place] [address] Oct, [facility] [address] [id number] [address] [place] [address], [place] [address] Oct, [facility] [address] [id number] [address] [place] [address], [place] [address] Oct, [facility] [address] [id number] [address] [place] [address], [place] [address] Oct, [facility] [address] [id number] [address] [place] [address], [place] [address] Sep, [facility] [address] [id number] [address] [place] [address], [place] [address] Sep, [facility] [address] [id number] [address] [place] [address], [place] [address] Sep, [facility] [address] [id number] [address] [place] [phone] Sep, [facility] [address] [id number] [address] [place] [address], [place] [address] Sep, [facility] [address] [id number] [address] [place] [address], [place] [address] Sep, [facility] [address] [id number] [address] [place] [address], [place] [address] Sep, [facility] [address] [id number] [address] [place] [address], [place] [address] Sep, [facility] [address] [id number] [address] [place] [address], [place] [address] Sep, [facility] [address] [id number] [address] [place] [address], [place] [address] Aug, [facility] [address] [id number] [address] [place] [address], [place] [address] Aug, [facility] [address] [id number] [address] [place] [address], [place] [address] Aug, [facility] [address] [id number] [address] [place] [address], [place] [address] Aug, [facility] [address] [id number] [address] [place] [address], [place] [address] Jul, [facility] [address] [id number] [address] [place] [address], [place] [address] Jul, [facility] [address] [id number] [address] [place] [address], [place] [address] Jul, [facility] [address] [id number] [address] [place] [address], [place] [address] Jul, [facility] [address] [id number] [address] [place] [address], [place] [address] Jul, [facility] [address] [id number] [address] [place] [address], [place] [address] Jul, [facility] [address] [id number] [address] [place] [address], [place] [address] Jul, [facility] [address] [id number] [address] [place] [address], [place] [address] 03 Jul, 2014 [facility] [address] [id number] [address] [place] [address], [place] [address] 27 Jun, 2014 [facility] [address] [id number] [address] [place] [address], [place] [address] 27 Jun, 2014 [facility] [address] [id number] [address] [place] [address], [place] [address] 20 Jun, 2014 [facility] [address] [id number] [address] [place] [address], [place] [address] 20 Jun, 2014 [facility] [address] [id number] [address] [place] [address], [place] [address] 16 Jun, 2014 [facility] [address] [id number] [address] [place] [address], [place] [address] 15 Jun, 2014 [facility] [address] [id number] [address] [place] [address], [place] [address] 15 Jun, 2014 [facility] [address] [id number] [address] [place] [address], [place] [address] 14 Jun, 2014 [facility] [address] [id number] [address] [place] [address], [place] [address] 14 Jun, 2014 [facility] [address] [id number] [address] [place] [address], [place] [address] 11 Jun, 2014 [facility] [address] [id number] [address] [place] [address], [place] [address] 11 Jun, 2014 [facility] [address] [id number] [address] [place] [address], [place] [address] 24 May, 2014 [facility] [address] [id number] [address] [place] [address], [place] [address] 24 May, 2014 [facility] [address] [id number] [address] [place] [address], [place] [address] May, [facility] [address] [id number] [address] [place] [address], [place] [address] May, [facility] [address] [id number] [address] [place] [address], [place] [address] May, [facility] [address] [id number] [address] [place] [address], [place] [address] Apr, [facility] [address] [id number] [address] [place] [address], [place] [address] Apr, [facility] [address] [id number] [address] [place] [address], [place] [address] Apr, [facility] [address] [id number] [address] [place] [address], [place] [address] Apr, [facility] [address] [id number] [address] [place] [address], [place] [address] Apr, [facility] [address] [id number] [address] [place] [address], [place] [address] Apr, [facility] [address] [id number] [address] [place] [address], [place] [address] Mar, [facility] [address] [id number] [address] [place] [address], [place] [address] Mar, [facility] [address] [id number] [address] [place] [address], [place] [address] Mar, [facility] [address] [id number] [address] [place] [address], [place] [address] Mar, [facility] [address] [id number] [address] [place] [address], [place] [address] Mar, [facility] [address] [id number] [address] [place] [address], [place] [address] Mar, [facility] [address] [id number] [address] [place] [address], [place] [address] Feb, [facility] [address] [id number] [address] [place] [address], [place] [address] Feb, [facility] [address] [id number] [address] [place] [address], [place] [address] Feb, [facility] [address] [id number] [address] [place] [address], [place] [address] Feb, [facility] [address] [id number] [address] [place] [address], [place] [address] Feb, [facility] [address] [id number] [address] [place] [address], [place] [address] Feb, [facility] [address] [id number] [address] [place] [address], [place] [address] Feb, [facility] [address] [id number] [address] [place] [address], [place] [address] Feb, [facility] [address] [id number] [address] [place] [address], [place] [address] January, [facility] [address] [id number] [address] [place] [address], [place] [address] January, [facility] [address] [id number] [address] [place] [address], [place] [address] January, [facility] [address] [id number] [address] [place] [address], [place] [address] January, [facility] [address] [id number] [address] [place] [address], [place] [address] January, [facility] [address] [id number] [address] [place] [address], [place] [address] January, [facility] [address] [id number] [address] [place] [address], [place] [address] January, [facility] [address] [id number] [address] [place] [address], [place] [address] January, [facility] [address] [id number] [address] [place] [address], [place] [address] Dec, [facility] [address] [id number] [facility] [place] [address] 30 Dec, 2013 [facility] [address] [id number] [facility] [place] [address] Dec, [facility] [address] [id number] [facility] [place] [address] Dec, [facility] [address] [id number] [address] [place] [address], [place] [address] Dec, [facility] [address] [id number] [address] [place] [address], [place] [address] Dec, [facility] [address] [id number] [address] [place] [address], [place] [address] Nov, [facility] [address] [id number] [address] [place] [address], [place] [address] Nov, [facility] [address] [id number] [address] [place] [address], [place] [address] Nov, [facility] [address] [id number] [address] [place] [address], [place] [address] Nov, [facility] [address] [id number] [address] [place] [address], [place] [address] Nov, [facility] [address] [id number] [address] [place] [address], [place] [address] Nov, [facility] [address] [id number] [address] [place] [address], [place] [address] Nov, [facility] [address] [id number] [address] [place] [address], [place] [address] Nov, [facility] [address] [id number] [address] [place] [address], [place] [address] Oct, [facility] [address] [id number] [address] [place] [address], [place] [address] Oct, [facility] [address] [id number] [address] [place] [address], [place] [address] Sep, [facility] [address] [id number] [address] [place] [address], [place] [address] Sep, [facility] [address] [id number] [address] [place] [address], [place] [address] Sep, [facility] [address] [id number] [address] [place] [address], [place] [address] Sep, [facility] [address] [id number] [address] [place] [address], [place] [address] Aug, [facility] [address] [id number] [address] [place] [address], [place] [address] Aug, [facility] [address] [id number] [address] [place] [address], [place] [address] Aug, [facility] [address] [id number] [address] [place] [address], [place] [address] Aug, [facility] [address] [id number] [address] [place] [address], [place] [address] Jul, [facility] [address] [id number] [address] [place] [address], [place] [address] Jul, [facility] [address] [id number] [address] [place] [address], [place] [address] Jul, [facility] [address] [id number] [address] [place] [address], [place] [address] Jul, [facility] [address] [id number] [address] [place] [address], [place] [address] Jul, [facility] [address] [id number] [address] [place] [address], [place] [address] Jul, [facility] [address] [id number] [address] [place] [address], [place] [address] Jul, [facility] [address] [id number] [address] [place] [address], [place] [address] Jul, [facility] [address] [id number] [address] [place] [address], [place] [address] 06 Jul, 2013 [facility] [address] [id number] [address] [place] [address], [place] [address] 05 Jul, 2013 [facility] [address] [id number] [address] [place] [address], [place] [address] Jul, [facility] [address] [id number] [address] [place] [address], [place] [address] Jul, [facility] [address] [id number] [address] [place] [address], [place] [address] Jun, [facility] [address] [id number] [address] [place] [address], [place] [address] Jun, [facility] [address] [id number] [address] [place] [address], [place] [address] Jun, [facility] [address] [id number] [address] [place] [address], [place] [address] Jun, [facility] [address] [id number] [address] [place] [address], [place] [address] 16 Jun, 2013 [facility] [address] [id number] [address] [place] [address], [place] [address] Jun, [facility] [address] [id number] [address] [place] [address], [place] [address] 14 Jun, 2013 [facility] [address] [id number] [address] [place] [address], [place] [address] 02 Jun, 2013 [facility] [address] [id number] [address] [place] [address], [place] [address] 15 May, 2013 [facility] [address] [id number] [address] [place] [address], [place] [address] 05 May, 2013 [facility] [address] [id number] [address] [place] [address], [place] [address] 04 May, 2013 [facility] [address] [id number] [address] [place] [address], [place] [address] Apr, [facility] [address] [id number] [address] [place] [address], [place] [address] Apr, [facility] [address] [id number] [address] [place] [address], [place] [address] Mar, [facility] [address] [id number] [address] [place] [address], [place] [address] Mar, [facility] [address] [id number] [address] [place] [address], [place] [address] Feb, [facility] [address] [id number] [address] [place] [address], [place] [address] January, [facility] [address] [id number] [address] [place] [address], [place] [address] January, [facility] [address] [id number] [address] [place] [address], [place] [address] January, [facility] [address] [id number] [address] [place] [address], [place] [address] January, [facility] [address] [id number] [address] [place] [address], [place] [address] January, [facility] [address] [id number] [address] [place] [address], [place] [address] Dec, [facility] [address] [id number] [address] [place] [address], [place] [address] Dec, [facility] [address] [id number] [address] [place] [address], [place] [address] Dec, [facility] [address] [id number] [address] [place] [address], [place] [address] Nov, [facility] [address] [id number] [address] [place] [address], [place] [address] Oct, [facility] [address] [id number] [address] [place] [address], [place] [address] Oct, [facility] [address] [id number] [address] [place] [id number] 15 Oct, 2012 [facility] [address] [id number] [address] [place] [address], [place] [address] Sep, [facility] [address] [id number] [address] [place] [id number] 16 Sep, 2012 [facility] [address] [id number] [address] [place] [address], [place] [address] 14 Aug, 2012 [facility] [address] [id number] [address] [place] [phone] 14 Aug, 2012 [facility] [address] [id number] [address] [place] [address], [place] [address] Aug, [facility] [address] [id number] [address] [place] [address], [place] [address] Aug, [facility] [address] [id number] [address] [place] [phone] Jul, [facility] [address] [id number] [address] [place] [address], [place] [address] Jul, [facility] [address] [id number] [address] [place] [phone] Jul, [facility] [address] [id number] [address] [place] [phone] Jul, [facility] [address] [id number] [address] [place] [phone] Jul, [facility] [address] [id number] [address] [place] [id number] 15 Jun, 2012 [facility] [address] [id number] [address] [place] [phone] 15 Jun, 2012 [facility] [address] [id number] [address] [place] [phone] 10 Jun, 2012 [facility] [address] [id number] [address] [place] [phone] 10 Jun, 2012 [facility] [address] [id number] [address] [place] [address], [place] [address] 10 May, 2012 [facility] [address] [id number] [address] [place] [address], [place] [address] Apr, [facility] [address] [id number] [address] [place] [address], [place] [address] Apr, [facility] [address] [id number] [address] [place] [address], [place] [address] Apr, [facility] [address] [id number] [address] [place] [address], [place] [address] Apr, [facility] [address] [id number] [address] [place] [address], [place] [address] January, [facility] [address] [id number] [address] [place] [address], [place] [address] January, [facility] [address] [id number] [address] [place] [address], [place] [address] Dec, [facility] [address] [id number] [address] [place] [address], [place] [address] Dec, [facility] [address] [id number] [address] [place] [address], [place] [address] Nov, [facility] [address] [id number] [address] [place] [address], [place] [address] Nov, [facility] [address] [id number] [address] [place] [address], [place] [address] Nov, [facility] [address] [id number] [address] [place] [address], [place] [address] Nov, [facility] [address] [id number] [address] [place] [address], [place] [address] Oct, [facility] [address] [id number] [address] [place] [address], [place] [address] Oct, [facility] [address] [id number] [address] [place] [address] [address] Oct, [facility] [address] [id number] [address] [place] [address], [place] [address] Sep, [facility] [address] [id number] [address] [place] [address], [place] [address] Sep, [facility] [address] [id number] [address] [place] [address], [place] [address] Aug, [facility] [address] [id number] [address] [place] [address], [place] [address] Aug, [facility] [address] [id number] [address] [place] [address], [place] [address] Jul, [facility] [address] [id number] [address] [place] [address], [place] [address] Jul, [facility] [address] [id number] [address] [place] [address], [place] [address] Jul, [facility] [address] [id number] [address] [place] [address], [place] [address] Jun, [facility] [address] [id number] [address] [place] [address], [place] [address] Jun, [facility] [address] [id number] [address] [place] [address], [place] [address] Jun, [facility] [address] [id number] [address] [place] [phone] Jun, [facility] [address] [id number] [address] [place] [phone] Jun, [facility] [address] [id number] [address] [place] [address], [place] [address] Jun, [facility] [address] [id number] [address] [place] [address], [place] [address] Aug, [facility] [address] [id number] [address] [place] [address], [place] [address] Aug, [facility] [address] [id number] [address] [place] [address], [place] [address] 08 Aug, 2010 [facility] [address] [id number] [address] [place] [address], [place] [address] 29 Jul, 2010 [facility] [address] [id number] [address] [place] [address], [place] [address] 27 Jul, 2010 [facility] [address] [id number] [address] [place] [address], [place] [address] Jul, [facility] [address] [id number] [address] [place] [address], [place] [address] 15 Jul, 2010 [facility] [address] [id number] [address] [place] [address], [place] [address] 15 Jul, 2010 [facility] [address] [id number] [address] [place] [address], [place] [address] Jul, [facility] [address] [id number] [address] [place] [address], [place] [address] Jun, [facility] [address] [id number] [address] [place] [address], [place] [address] Apr, [facility] [address] [id number] [address] [place] [address], [place] [address] 11 Feb, 2010 [facility] [address] [id number] [address] [place] [address], [place] [address] 10 Oct, 2009 [facility] [address] [id number] [address] [place] [address], [place] [address] Sep, [facility] [address] [id number] [address] [place] [address], [place] [address] 18 Aug, 2009 [facility] [address] [id number] [address] [place] [address], [place] [address] Aug, [facility] [address] [id number] [address] [place] [address], [place] [address] 05 Aug, 2009 [facility] [address] [id number] [address] [place] [address], [place] [address] Jul, [facility] [address] [facility] [id number] [address] [place] [address] Jun, IMMUNIZATIONS No Known Immunizations SOCIAL HISTORY [...]
--- OUTSIDE RECORDS SUMMARY | 2020-02-22 17:36 | XMS REPORT ---
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
[2020-02-22 17:37] LABS: CREATININE SERUM 1.42 MG/DL (0.60-1.30)
--- NOTE | 2020-02-22 17:38 | Diagnostic Imaging Report ---
INDICATION: Chest pain. EXAMINATION: Single view chest 02/22/2020. COMPARISON: 02/18/2010 FINDINGS: The cardiomediastinal silhouette is unremarkable. The pulmonary vasculature is within normal limits. The lungs and pleural spaces are clear. IMPRESSION: No evidence of an acute cardiopulmonary process. Dictated by: Dictated on workstation # [id number]
[2020-02-22 17:40] LABS: MAGNESIUM 1.7 MG/DL (1.6-2.4)
[2020-02-22] MEDS ORDERED: NS IV 1000 ML 1,000 ML IV SCH (17:45)
[2020-02-22 17:58] LABS: POTASSIUM 2.5 MMOL/L (3.6-5.0)
[2020-02-22 18:00] VITALS: BP 111/71
[2020-02-22] MEDS ORDERED: ENOXAPARIN 80 MG/0.8 ML (LOVENOX) SYR SC ONE (18:00)
[2020-02-22] MEDS ORDERED: KCL 10 MEQ TAB (MICRO K) PO ONE (18:00)
[2020-02-22 18:30] VITALS: BP 108/65
[2020-02-22] MEDS ORDERED: LORazepam INJ 2 MG/ML (ATIVAN) VIAL IVP PRN (18:45)
[2020-02-22] MEDS ORDERED: LORazepam 1 MG (ATIVAN) TAB PO PRN (18:45)
[2020-02-22] MEDS ORDERED: ACETAMINOPHEN 325 MG TABLET PO PRN (18:45)
[2020-02-22] MEDS ORDERED: ONDANSETRON 4 MG/2 ML (SDV) Z0FRAN IVP PRN (18:45)
--- NOTE | 2020-02-22 19:00 | NUR ---
AltheaEduardo admitted to room 423-1, with an admitting diagnosis of dyspnea, hpokalemia , on 02/22/20 from [place] via , accompanied by .EDUARDO ARANA introduced to surroundings, call light, bed controls, phone, TV, temperature control, lights, meal times, smoking policy, visitor policy, side rail policy, bathrooms and showers. Patient Rights given to patient in the handbook.EDUARDO ARANA verbalizes understanding that [facility] is not responsible for the loss or damage to any personal effects or valuables that are kept in the patients posession during their hospitalization. T
[2020-02-22] MEDS: LACTATED RINGERS 1,000 ML IV SCH (19:04)
[2020-02-22] MEDS: POTASSIUM CL 10MEQ/50ML IVPB 50 ML IV SCH ×4 (19:45→22:33)
[2020-02-22 19:50] VITALS: BP 121/65
[2020-02-22 19:52] VITALS: BP 123/57
[2020-02-22] MEDS ORDERED: CALCIUM CARBONATE 500 MG (TUMS) TAB.CHEW PO PRN (20:45)
[2020-02-22] MEDS ORDERED: HYDROcodone/APAP 5 MG/325 MG (LORTAB) TAB PO PRN (20:45)
[2020-02-22] MEDS ORDERED: LOPERAMIDE 2 MG (IMODIUM) TABLET PO PRN (20:45)
[2020-02-22] MEDS ORDERED: ONDANSETRON 4 MG (ZOFRAN) ORAL DISSOLVE TAB PO PRN (20:45)
[2020-02-22] MEDS ORDERED: diphenhydrAMINE 25 MG TAB (BENADRYL) PO PRN (20:45)
[2020-02-22] MEDS ORDERED: DOCUSATE SODIUM 100 MG (COLACE) CAP PO PRN (20:45)
[2020-02-22] MEDS ORDERED: MELATONIN 3 MG TABLET PO PRN (20:45)
[2020-02-22] MEDS ORDERED: ACETAMINOPHEN 500 MG TAB (TYLENOL) PO PRN (20:45)
[2020-02-22] MEDS: SENNA W/DOCUSATE (SENOKOT S) TABLET PO SCH (21:36)
[2020-02-22 23:24] VITALS: BP 115/55
[2020-02-23] MEDS: LACTATED RINGERS 1,000 ML IV SCH ×3 (04:32→17:52)
[2020-02-23 04:45] VITALS: BP 113/69
[2020-02-23 04:50] LABS: BASOPHILS # (AUTO) 0.1 10^3/uL (0.0-0.1); BASOPHILS % (AUTO) 1 % (0-10); EOSINOPHILS # (AUTO) 0.1 10^3/uL (0.0-0.3); EOSINOPHILS % (AUTO) 2 % (0-10); HEMATOCRIT 27 % (35-52); HEMOGLOBIN 8.1 G/DL (11.5-16.0); LYMPHOCYTES # (AUTO) 2.8 X 10^3 (1.0-4.0); LYMPHOCYTES % (AUTO) 50 % (12-44); MEAN CORPUSCULAR HEMOGLOBIN 21 PG (25-34); MEAN CORPUSCULAR HGB CONC 30 G/DL (32-36); MEAN CORPUSCULAR VOLUME 69 FL (80-99); MEAN PLATELET VOLUME 9.2 FL (7.4-10.4); MONOCYTES # (AUTO) 0.4 X 10^3 (0.0-1.0); MONOCYTES % (AUTO) 6 % (0-12); NEUTROPHILS # (AUTO) 2.3 X 10^3 (1.8-7.8); NEUTROPHILS % (AUTO) 41 % (42-75); PLATELET COUNT 603 10^3/uL (130-400); RED CELL DISTRIBUTION WIDTH 17.8 % (10.0-14.5); WHITE BLOOD COUNT 5.5 10^3/uL (4.3-11.0)
[2020-02-23 04:52] LABS: ALBUMIN 3.4 GM/DL (3.2-4.5); CHLORIDE 107 MMOL/L (98-107); POTASSIUM 3.1 MMOL/L (3.6-5.0); SODIUM 140 MMOL/L (135-145)
[2020-02-23 04:53] LABS: CALCIUM 8.9 MG/DL (8.5-10.1)
[2020-02-23 04:54] LABS: TRIGLYCERIDES 92 MG/DL (<150); VLDL CHOLESTEROL 18 MG/DL (5-40)
[2020-02-23 04:55] LABS: GLUCOSE 95 MG/DL (70-105); TOTAL PROTEIN 6.3 GM/DL (6.4-8.2)
[2020-02-23 04:56] LABS: BILIRUBIN,TOTAL 0.2 MG/DL (0.1-1.0); CARBON DIOXIDE 23 MMOL/L (21-32)
[2020-02-23 04:58] LABS: ALKALINE PHOSPHATASE 54 U/L (40-136); GFR ESTIMATED > 60
[2020-02-23 04:59] LABS: CHOLESTEROL 200 MG/DL (< 200)
[2020-02-23 05:00] LABS: BUN/CREATININE RATIO 11
[2020-02-23 05:01] LABS: HDL CHOLESTEROL 49 MG/DL (40-60); MAGNESIUM 1.7 MG/DL (1.6-2.4)
[2020-02-23 05:02] LABS: ALANINE AMINOTRANSFERASE 17 U/L (0-55)
[2020-02-23] MEDS: ENOXAPARIN 80 MG/0.8 ML (LOVENOX) SYR SC SCH ×2 (06:20→17:53)
[2020-02-23 07:28] VITALS: BP 116/57
[2020-02-23] MEDS: SENNA W/DOCUSATE (SENOKOT S) TABLET PO SCH ×2 (07:33→20:37)
[2020-02-23] MEDS ORDERED: KCL 20 MEQ TAB (K-DUR) PO NR (07:45)
--- NOTE | 2020-02-23 12:14 | History & Physical ---
HPI History of Present Illness: 49 yo female came in due to worsening palpitations and feeling her heart pounding heavy in her chest and jaw. She started feeling bad several days ago and did have a sore throat for a day or so. She also has had diarrhea the last 3 days with no blood in her stool. She was preparing for her daughter's wedding which was on Sunday and thought she might be dehydrated. On Sunday she decided to stay home and drink lots of fluid, but she went down stairs and when she tried to go back up she nearly blacked out so she called her to come home and bring her to the ER. She does note a history of mitral valve prolapse and mild palpitations, but this has been much worse than usual. Her last echo an d Holtor were years ago. Her mother and grandmother have had heart failure. She does also have associated nausea, vomited once Sunday night. 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 She feels a little better today but still having pounding heart even while lying down at times, but especially with exertion. Source: patient Date seen by provider: Feb 23, 2020 Time Seen by Provider: 10:[address] MD PCP David Arvizu MD Consult Date of Admission Feb 22, 2020 at 17:54 Home Medications Home Medications Reviewed patient Home Medication Reconciliation performed by pharmacy medication reconciliations technician telecommunication systems and/or nursing. Patients Allergies have been reviewed. Allergies Coded Allergies: latex (Verified Allergy, Unknown, SWELLING, 05/30/06) theophylline (Verified Allergy, Unknown, N&V, 05/30/06) QHL-Hqaslh-Oiqmav Hx Patient Social History Alcohol Use: Rarely Uses Recreational Drug Use: No Smoking Status: Never a Smoker 2nd Hand Smoke Exposure: Yes Recent Foreign Travel: No Contact w/other who traveled: No Recent Hopitalizations: Yes Recent Infectious Disease Expo: No Past Medical History PMHx: Ulcer Mitral valve prolapse SurgHx: x 2 Oophorectomy Cholecystectomy Family Medical History Significant Family History: Heart Disease Review of Systems ([facility]) Constitutional: dizziness; No fever; malaise EENTM: throat pain Respiratory: No cough, No short of breath Cardiovascular: No chest pain; palpitations Gastrointestinal: No constipation; diarrhea, nausea, vomiting Genitourinary: No dysuria Musculoskeletal: back pain (chronic) Skin: No rash Reviewed Test Results Reviewed Test Results Lab Laboratory Tests Test 02/22/20 17:09 02/22/20 17:47 02/23/20 04:30 Range/Units White Blood Count 7.1 5.5 4.3-11.0 10^3/uL Red Blood Count 4.40 3.86 L 4.35-5.85 10^6/uL Hemoglobin 9.2 L 8.1 L 11.5-16.0 G/DL Hematocrit 30 L 27 L 35-52 % Mean Corpuscular Volume 69 L 69 L 80-99 FL Mean Corpuscular Hemoglobin 21 L 21 L 25-34 PG Mean Corpuscular Hemoglobin Concent 31 L 30 L 32-36 G/DL Red Cell Distribution Width 17.8 H 17.8 H 10.0-14.5 % Platelet Count 711 H 603 H 130-400 10^3/uL Mean Platelet Volume 9.0 9.2 7.4-10.4 FL Neutrophils (%) (Auto) 66 41 L 42-75 % Lymphocytes (%) (Auto) 27 50 H 12-44 % Monocytes (%) (Auto) 6 6 0-12 % Eosinophils (%) (Auto) 1 2 0-10 % Basophils (%) (Auto) 1 1 0-10 % Neutrophils # (Auto) 4.7 2.3 1.8-7.8 X 10^3 Lymphocytes # (Auto) 1.9 2.8 1.0-4.0 X 10^3 Monocytes # (Auto) 0.4 0.4 0.0-1.0 X 10^3 Eosinophils # (Auto) 0.1 0.1 0.0-0.3 10^3/uL Basophils # (Auto) 0.0 0.1 0.0-0.1 10^3/uL Prothrombin Time 13.2 12.2-14.7 SEC INR Comment 1.0 0.8-1.4 Activated Partial Thromboplast Time 24 24-35 SEC D-Dimer 1.22 H 0.00-0.49 UG/ML Sodium Level 133 L 140 135-145 MMOL/L Potassium Level 2.5 *L 3.1 L 3.6-5.0 MMOL/L Chloride Level 95 L 107 98-107 MMOL/L Carbon Dioxide Level 27 23 21-32 MMOL/L Anion Gap 11 10 5-14 MMOL/L Blood Urea Nitrogen 17 9 7-18 MG/DL Creatinine 1.42 H 0.80 0.60-1.30 MG/DL Estimat Glomerular Filtration Rate 39 > 60 BUN/Creatinine Ratio 12 11 Glucose Level 124 H 95 70-105 MG/DL Calcium Level 9.5 8.9 8.5-10.1 MG/DL Corrected Calcium 9.5 9.4 8.5-10.1 MG/DL Magnesium Level 1.7 1.7 1.6-2.4 MG/DL Iron Level 38 35-180 ug/dL Total Bilirubin 0.4 0.2 0.1-1.0 MG/DL Aspartate Amino Transf (AST/SGOT) 32 25 5-34 U/L Alanine Aminotransferase (ALT/SGPT) 21 17 0-55 U/L Alkaline Phosphatase 59 54 40-136 U/L Myoglobin 117.2 H 10.0-92.0 NG/ML Troponin I 0.041 H 0.028 <0.028 NG/ML C-Reactive Protein High Sensitivity 0.58 H 0.00-0.50 MG/DL B-Type Natriuretic Peptide 12.2 <100.0 PG/ML Total Protein 7.4 6.3 L 6.4-8.2 GM/DL Albumin 4.0 3.4 3.2-4.5 GM/DL Triglycerides Level 92 <150 MG/DL Cholesterol Level 200 < 200 MG/DL LDL Cholesterol Direct 144 H 1-129 MG/DL VLDL Cholesterol 18 5-40 MG/DL HDL Cholesterol 49 40-60 MG/DL Radiology CXR 02/21: IMPRESSION: No evidence of an acute cardiopulmonary process. Physical Exam-([facility]) Physical Exam Vital Signs VS - Last 72 Hours, by Label 02/22/20 02/22/20 02/22/20 02/22/20 17:13 18:00 18:30 19:00 Temp 36.9 36.9 36.9 36.9 Pulse 16 86 86 81 Resp 18 18 18 18 B/P (MAP) 125/76 (92) 111/71 (84) 108/65 (79) 121/65 Pulse Ox 99 98 99 98 O2 Delivery Room Air 02/22/20 02/22/20 02/22/20 02/22/20 19:12 19:50 19:50 19:52 Temp 36.9 36.9 Pulse 87 87 90 Resp 18 18 B/P (MAP) 121/65 123/57 (79) Pulse Ox 98 100 O2 Delivery Room Air Room Air 02/22/20 02/23/20 02/23/20 02/23/20 23:24 01:00 04:45 07:00 Temp 36.9 37.2 Pulse 80 93 77 77 Resp 18 18 B/P (MAP) 115/55 (75) 113/69 (84) Pulse Ox 100 99 O2 Delivery Room Air Room Air 02/23/20 02/23/20 07:28 08:00 Temp 36.5 Pulse 94 Resp 15 B/P (MAP) 116/57 (76) Pulse Ox 97 97 O2 Delivery Room Air Room Air Capillary Refill : Less Than 3 SecondsLess Than 3 Seconds General Appearance: WD/WN, no apparent distress Respiratory: lungs clear, normal breath sounds Cardiovascular: regular rate, rhythm, no edema, no murmur Gastrointestinal: normal bowel sounds, non tender, soft Extremities: no pedal edema Neurologic/Psychiatric: alert, normal mood/affect Skin: normal color, warm/dry Assessment/Plan Assessment/Plan Admission Status: Inpatient Order (span 2 midnights) Reason for Inpatient Admission: Acute renal insufficiency and possible pulmonary embolism (1) Diarrhea Status: Acute Assessment & Plan: Uncertain etiology, COVID pending. (2) Acute kidney injury Status: Resolved Assessment & Plan: Resolved with fluid overnight. (3) Hypokalemia Status: Acute Assessment & Plan: Improving, continue replacing and recheck. (4) Thrombocytosis Status: Acute Assessment & Plan: Possibly reactive due to anemia vs infection. (5) Anemia Assessment & Plan: Unknown etiology, last CBC in clinic was in 2016 and was normal. She does have history of ulcer disease, which is concerning for GI bleeding, will check iron studies and monitor closely especially given that she is on therapeutic enoxaparin currently. (6) Palpitations Status: Acute Assessment & Plan: Likely will need repeat Holtor and possibly echo. BNP was normal. Initial troponin very slightly elevated, likely related to tachycardia and renal dysfunction, repeat normal, suspect palpitations primarily related to dehydration and hypokalemia. (7) Elevated d-dimer Status: Acute Assessment & Plan: Could not get CTA on admit due to creatinine, is on therapeutic enoxaparin, will await COVID results and likely get CTA after. (8) DVT prophylaxis Status: Acute Assessment & Plan: On treatment enoxaparin for now. Clinical Quality Measures AMI/AHF: ASA po Prior to arrival: No DVT/VTE Risk/Contraindication: Risk Factor Score Per Nursin RFS Level Per Nursing on Admit: 1=Low/No VTE PPX CAMILA LANE MD Feb 23, 2020 12:14
[2020-02-23 12:24] VITALS: BP 119/60
[2020-02-23] MEDS ORDERED: SUCRALFATE 1 GM (CARAFATE) TAB PO SCH (13:00)
[2020-02-23] MEDS ORDERED: ASPI-789 PO (14:24)
[2020-02-23] MEDS ORDERED: SUMA100T3 PO (14:24)
[2020-02-23] MEDS ORDERED: DIAZ5TAB49 PO (14:24)
[2020-02-23] MEDS ORDERED: RABE20TA27 PO (14:24)
[2020-02-23] MEDS ORDERED: TRM50T PO (14:26)
--- NOTE | 2020-02-23 14:26 | NUR ---
SPOKE WITH THE PT (CALLED HER ROOM PHONE) AND GOT A MED LIST FROM [facility] TO COMPLETE THE MED REC THE FOLLOWING ARE FILL DATES NOT SHOWN ON THE EXT MED HISTORY: 01-28-2020 SUMATRIPTAN 100MG #9 01-03-2020 TRAMADOL 50MG #224/28DS OTC MEDS: EXCEDRIN PRN
--- NOTE | 2020-02-23 14:50 | NUR ---
HOME MEDS REVIEWED AND CONTINUED BY DR FLORES BEFORE MED REC WAS COMPLETED. PATIENT NO LONGER TAKING SUCRALFATE AND ONLY TAKING ACIPHEX ONCE A DAY. CALLED DR FLORES WITH CHANGES MADE BY MED REC TECH AFTER REVIEWED WITH PATIENT. RECEIVED VERBAL ORDER TO MAKE CHANGES TO REFLECT WHAT PATIENT IS TAKING AT HOME.
[2020-02-23 16:31] VITALS: BP 126/63
[2020-02-23 20:06] VITALS: BP 131/73
[2020-02-23] MEDS ORDERED: IOHEXOL 350 MG/ML 100 ML (OMNIPAQUE 350) VIAL IV ONE (21:00)
[2020-02-23] MEDS ORDERED: HOLD METFORMIN - RECEIVED CONTRAST 20 ML VIAL IV SCH (21:00)
[2020-02-23] MEDS ORDERED: NON-FORMULARY MEDICATION 1 EA EA (Rabeprazole Sodium (Aciphex) 20 MG) PO SCH (21:00)
[2020-02-23] MEDS ORDERED: NS 100 ML (IVPB) BAG IV ONE (21:00)
--- NOTE | 2020-02-23 22:25 | Diagnostic Imaging Report ---
PROCEDURE: CT angiography of the chest with contrast. TECHNIQUE: Multiple contiguous axial images were obtained through the chest after uneventful bolus administration of intravenous contrast. 3D reconstructed CTA MIP acquisitions were also performed. Auto Exposure Controls were utilized during the CT exam to meet ALARA standards for radiation dose reduction. INDICATION: History of mitral valve prolapse. Chest pressure, shortness of air, racing heart, elevated D-dimer. EXAMINATION: CT angiogram of the chest from 05/25/2020 FINDINGS: There are no central or proximal segmental pulmonary emboli with peripheral vessels poorly opacified. Thoracic aorta is unremarkable. No mediastinal abnormality appreciated. Visualized upper abdomen demonstrates diffuse fatty infiltration throughout the liver with previous cholecystectomy and no acute process seen. The lungs are unremarkable. No acute osseous abnormality. IMPRESSION: 1. No central or proximal segmental pulmonary embolus. 2. Remaining visualized structures demonstrate incidental findings, as above. Dictated by: Dictated on workstation # [id number]
[2020-02-24 00:45] VITALS: BP 138/86
[2020-02-24] MEDS: LACTATED RINGERS 1,000 ML IV SCH ×2 (03:02→04:52)
[2020-02-24 04:00] VITALS: BP 117/76
[2020-02-24 05:51] LABS: ABSOLUTE RETIC # 54 10e9/L (24-90); BASOPHILS # (AUTO) 0.1 10^3/uL (0.0-0.1); BASOPHILS % (AUTO) 1 % (0-10); EOSINOPHILS # (AUTO) 0.2 10^3/uL (0.0-0.3); EOSINOPHILS % (AUTO) 4 % (0-10); HEMATOCRIT 26 % (35-52); HEMOGLOBIN 7.6 G/DL (11.5-16.0); LYMPHOCYTES % (AUTO) 55 % (12-44); MEAN CORPUSCULAR HEMOGLOBIN 21 PG (25-34); MEAN CORPUSCULAR HGB CONC 29 G/DL (32-36); MEAN CORPUSCULAR VOLUME 71 FL (80-99); MEAN PLATELET VOLUME 9.2 FL (7.4-10.4); MONOCYTES # (AUTO) 0.3 X 10^3 (0.0-1.0); MONOCYTES % (AUTO) 5 % (0-12); NEUTROPHILS # (AUTO) 1.9 X 10^3 (1.8-7.8); NEUTROPHILS % (AUTO) 35 % (42-75); PLATELET COUNT 572 10^3/uL (130-400); RED CELL DISTRIBUTION WIDTH 18.7 % (10.0-14.5); RETICULOCYTE % 1.47 % (0.50-2.40); WHITE BLOOD COUNT 5.5 10^3/uL (4.3-11.0)
[2020-02-24] MEDS: ENOXAPARIN 80 MG/0.8 ML (LOVENOX) SYR SC SCH (05:59)
[2020-02-24 06:00] LABS: CHLORIDE 108 MMOL/L (98-107); POTASSIUM 3.6 MMOL/L (3.6-5.0); SODIUM 140 MMOL/L (135-145)
[2020-02-24 06:02] LABS: CALCIUM 8.3 MG/DL (8.5-10.1); GLUCOSE 86 MG/DL (70-105)
[2020-02-24 06:04] LABS: CARBON DIOXIDE 22 MMOL/L (21-32)
[2020-02-24 06:06] LABS: CREATININE SERUM 0.72 MG/DL (0.60-1.30); GFR ESTIMATED > 60
[2020-02-24 06:07] LABS: BUN/CREATININE RATIO 8
[2020-02-24 07:49] LABS: ANISOCYTOSIS MODERATE; BASOPHILS % (MANUAL) 2 %; EOSINOPHILS % (MANUAL) 5 %; HYPOCHROMASIA MODERATE; LYMPHOCYTES % (MANUAL) 54 %; MICROCYTOSIS MODERATE; MONOCYTES % (MANUAL) 4 %; NEUTROPHILS % (MANUAL) 35 %; POIKILOCYTOSIS SLIGHT
[2020-02-24 08:00] VITALS: BP 130/81
[2020-02-24] MEDS: SENNA W/DOCUSATE (SENOKOT S) TABLET PO SCH (08:31)
[2020-02-24] MEDS ORDERED: PANTOPRAZOLE 20 MG TABLET (PROTONIX) PO SCH (09:00)
--- NOTE | 2020-02-24 09:05 | Consultation-Cardiology ---
HPI-Cardiology Cardiology Consultation Date of Consultation 02/24/20 Date of Admission Time Seen by Provider: 08:59 Indication: Palpitation HPI 49-year-old lady with history of mitral valve prolapse, has been having palpitation which became worse recently, she was working on her daughter's wedding at occurred on Sunday. Noted heaviness in her chest and her jaw with frequent palpitation, had nausea, vomited once, has been having diarrhea. Today she is feeling better. No further episode of nausea or vomiting no diarrhea or chest pain, she has anemia with a drop in her hemoglobin. Home Medications & Allergies Allergies: Coded Allergies: latex (Verified Allergy, Unknown, SWELLING, 05/30/06) theophylline (Verified Allergy, Unknown, N&V, 05/30/06) Home Medication List Reviewed: Yes [id number]-[id number] Hx Patient Social History Marital Status: Employed/Student: employed Alcohol Use: Rarely Uses Recreational Drug Use: No Smoking Status: Never a Smoker 2nd Hand Smoke Exposure: Yes Recent Foreign Travel: No Recent Infectious Disease Expo: No Recent Hopitalizations: Yes Past Medical History Discussed below Family Medical History Significant Family History: Heart Disease Review of Systems-General Review of Systems Constitutional: dizziness; No fever; malaise EENTM: throat pain Respiratory: see HPI; No cough, No short of breath Cardiovascular: see HPI, chest pain; No edema, No Hx of Intervention; palpitations; No syncope, No vascular heart diseas, No other Gastrointestinal: see HPI; No constipation; diarrhea, nausea, vomiting Genitourinary: see HPI; No dysuria Musculoskeletal: see HPI, back pain (chronic) Skin: see HPI; No rash Psychiatric/Neurological: No Symptoms Reported, See HPI Reviewed Test Results Reviewed Test Results Lab Laboratory Tests Test 02/24/20 05:35 Range/Units White Blood Count 5.5 4.3-11.0 10^3/uL Red Blood Count 3.68 L 4.35-5.85 10^6/uL Hemoglobin 7.6 L 11.5-16.0 G/DL Hematocrit 26 L 35-52 % Mean Corpuscular Volume 71 L 80-99 FL Mean Corpuscular Hemoglobin 21 L 25-34 PG Mean Corpuscular Hemoglobin Concent 29 L 32-36 G/DL Red Cell Distribution Width 18.7 H 10.0-14.5 % Platelet Count 572 H 130-400 10^3/uL Mean Platelet Volume 9.2 7.4-10.4 FL Neutrophils (%) (Auto) 35 L 42-75 % Lymphocytes (%) (Auto) 55 H 12-44 % Monocytes (%) (Auto) 5 0-12 % Eosinophils (%) (Auto) 4 0-10 % Basophils (%) (Auto) 1 0-10 % Neutrophils # (Auto) 1.9 1.8-7.8 X 10^3 Lymphocytes # (Auto) 3.0 1.0-4.0 X 10^3 Monocytes # (Auto) 0.3 0.0-1.0 X 10^3 Eosinophils # (Auto) 0.2 0.0-0.3 10^3/uL Basophils # (Auto) 0.1 0.0-0.1 10^3/uL Neutrophils % (Manual) 35 % Lymphocytes % (Manual) 54 % Monocytes % (Manual) 4 % Eosinophils % (Manual) 5 % Basophils % (Manual) 2 % Hypochromasia MODERATE Poikilocytosis SLIGHT Anisocytosis MODERATE Microcytosis MODERATE Absolute Reticulocyte Count 54 24-90 10e9/L Percent Reticulocyte Count 1.47 0.50-2.40 % Sodium Level 140 135-145 MMOL/L Potassium Level 3.6 3.6-5.0 MMOL/L Chloride Level 108 H 98-107 MMOL/L Carbon Dioxide Level 22 21-32 MMOL/L Anion Gap 10 5-14 MMOL/L Blood Urea Nitrogen 6 L 7-18 MG/DL Creatinine 0.72 0.60-1.30 MG/DL Estimat Glomerular Filtration Rate > 60 BUN/Creatinine Ratio 8 Glucose Level 86 70-105 MG/DL Calcium Level 8.3 L 8.5-10.1 MG/DL Radiology CXR 02/21: IMPRESSION: No evidence of an acute cardiopulmonary process. Physical Exam Physical Exam Vital Signs Vital Signs - First Documented 02/22/20 02/22/20 17:13 19:00 Temp 36.9 Pulse 16 Resp 18 B/P (MAP) 125/76 (92) Pulse Ox 99 O2 Delivery Room Air Capillary Refill : NONELess Than 3 Seconds Height, Weight, BMI Height: '" Weight: 147lbs. oz. 66.727418eu; 30.85 BMI Method:Stated General Appearance: No Apparent Distress, WD/WN, Other (at the present time she is asymptomatic .) HEENT: PERRL/EOMI, TMs Normal Neck: Full Range of Motion, Normal Inspection Respiratory: No Accessory Muscle Use, No Respiratory Distress Cardiovascular: Regular Rate, Rhythm, No Edema, No Gallop, Normal Peripheral Pulses Gastrointestinal: Normal Bowel Sounds, Non Tender, Soft Extremity: Normal Capillary Refill, Normal Inspection Neurologic/Psychiatric: Alert, Oriented x3 Skin: Normal Color, Warm/Dry A/P-Cardiology Admission Diagnosis Palpitation Premature ventricular contraction Chest pain Anemia Assessment/Plan Palpitation, frequent PVCs. I'm starting low-dose beta blockers and evaluate tolerance and response History of mitral valve prolapse. Planning to evaluate 2-D echo Anemia, worsening H&H, managed by primary care team Nausea and vomiting, diarrhea, managed by primary care team Chest pain nonspecific etiology, atypical in presentation. Unlikely to be cardiac, will consider stress test once her anemia resolved and the source of bleeding is discovered, it can be done as an outpatient History of back pain and maintain on tramadol COVID negative Clinical Quality Measures AMI/AHF: ASA po Prior to arrival: No DVT/VTE Risk/Contraindication: Risk Factor Score Per Nursin RFS Level Per Nursing on Admit: 1=Low/No VTE PPX KIMBERLEY REMY MD Feb 24, 2020 09:05
[2020-02-24] MEDS ORDERED: NS IV 500 ML 500 ML IV SCH (11:08)
[2020-02-24] MEDS ORDERED: FERR325T18 PO (11:12)
[2020-02-24] MEDS ORDERED: MTP25TSR PO (11:12)
[2020-02-24] MEDS ORDERED: HYDROCORTISONE 100 MG/2 ML (Solu-CORTEF) VIAL IV PRN (11:15)
[2020-02-24] MEDS ORDERED: IRON DEXTRAN INJECTION 1,000 MG in NS (IVPB) 250 ML IV ONE (11:15)
[2020-02-24] MEDS ORDERED: diphenhydrAMINE 50 MG/ML INJ (BENADRYL) IV PRN (11:15)
[2020-02-24] MEDS ORDERED: EPINEPHrine INJECTION 1 MG/ML AMP IM PRN (11:15)
[2020-02-24] MEDS ORDERED: IRON DEXTRAN INJECTION 25 MG in NS (IVPB) 5.75 ML IV ONE (11:15)
[2020-02-24] MEDS ORDERED: RT-ALBUTEROL SULF 2.5 MG/3 ML PRE-MIX VIAL IH PRN (11:15)
[2020-02-24 12:00] VITALS: BP 139/85
[2020-02-24 16:41] VITALS: BP 128/73
[2020-02-24 17:20] VITALS: BP 128/73
== END 2020-02-24 18:20 | disposition home or self-care (01) | DRG 309 ==
LOC: EDUNIT# 16:59 → ER 17:02 → 4TH 17:54
PROVIDERS: ADMIT Internal Medicine; ATTEND Family Medicine
DX: I49.3 Ventricular premature depolarization (principal); N17.9 Acute kidney failure, unspecified; R00.2 Palpitations; R07.89 Other chest pain; R19.7 Diarrhea, unspecified; R11.2 Nausea with vomiting, unspecified; E87.6 Hypokalemia; D69.6 Thrombocytopenia, unspecified; D64.9 Anemia, unspecified; M54.9 Dorsalgia, unspecified; Z20.828 Contact with and (suspected) exposure to other viral communicable diseases; Z95.2 Presence of prosthetic heart valve
CPT/HCPCS: 36415; 71045; 71275; 80048; 80053; 80061; 82728; 83540; 83735; 83874; 83880; 84484; 85007; 85025; 85027; 85045; 85379; 85610; 85730; 86141; 87635; 93005; 93041; 93306

== ENCOUNTER → 2022-06-23 | Outpatient (CLI) | payer BC ==
[~2022-06-23] MED LIST changes: +ASPI1TAB23 PO; +DIAZ5TAB49 PO; +FERR325T18 PO; +MTP25TSR PO; +RABE20TA30 PO; +SUMA100T3 PO
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
== END ==
LOC: RAD 08:01
PROVIDERS: ATTEND Internal Medicine
DX: M50.21 Other cervical disc displacement, high cervical region (principal); M47.813 Spondylosis without myelopathy or radiculopathy, cervicothoracic region; M48.02 Spinal stenosis, cervical region
CPT/HCPCS: 72141

== ENCOUNTER 2023-05-08 05:31 | Outpatient (CLI) | payer OTHER ==
[~2023-05-08] VITALS: Ht 165.1 cm; Wt 84.0 kg
== END 2023-05-08 16:00 | disposition home or self-care (01) ==
LOC: PREOP 05:31
PROVIDERS: ATTEND Obstetrics & Gynecology
DX: Z01.818 Encounter for other preprocedural examination (principal)

== ENCOUNTER 2023-05-14 06:41 | Day surgery (SDC) | payer BC, OTHER ==
[~2023-05-14] VITALS: Ht 165.1 cm; Wt 84.0 kg
[2023-05-14] VITALS (12 sets, daily range): BP systolic 107–143; BP diastolic 63–95
[2023-05-14] MEDS ORDERED: dexAMETHasone INJ 10 MG/ML 1 ML VIAL ONE (07:15)
[2023-05-14] MEDS ORDERED: MIDAZOLAM INJ 2 MG/2 ML VIAL ONE (07:15)
[2023-05-14] MEDS ORDERED: ONDANSETRON INJECTION 4 MG/2 ML (SDV) ONE (07:15)
[2023-05-14] MEDS ORDERED: LIDOCAINE PF 2% 5 ML VIAL ONE (07:15)
[2023-05-14] MEDS ORDERED: LACTATED RINGERS 1,000 ML 1,000 ML IV PRN (07:15)
[2023-05-14] MEDS ORDERED: fentaNYL INJECTION 100 MCG/2 ML VIAL ONE (07:15)
[2023-05-14] MEDS ORDERED: proPOfol INJECTION 200 MG/20 ML VIAL IV ONE (07:15)
--- NOTE | 2023-05-14 07:29 | Progress Note-Pre Operative ---
Pre-Operative Progress Note Date H&P Reviewed: May 14, 2023 Time H&P Reviewed: 07:30 History & Physical: H&P Reviewed, No changes noted Pre-Operative Diagnosis: AUB thickened endometrium Plan for D&C hysteroscopy Endometrial ablation MIRACLE BURNS DO May 14, 2023 07:29
[2023-05-14] MEDS ORDERED: HYDROmorphone INJECTION 2 MG/ML VIAL IV ONE (07:30)
[2023-05-14] MEDS ORDERED: ONDANSETRON INJECTION 4 MG/2 ML (SDV) IVP PRN (07:30)
[2023-05-14] MEDS ORDERED: LEVO50CA4 PO (07:57)
[2023-05-14] MEDS ORDERED: SEVOFLURANE (ULTANE) 15 ML INHAL SOLN ONE (08:57)
--- NOTE | 2023-05-14 09:05 | Hysteroscopy D&C Operative ---
Hysteroscopy D&C Note Hysteroscopy D&C Note Date of Procedure: 05/14/23 Preoperative Diagnosis: Marion Maya is a 52 yo with AUB Postoperative Diagnosis: Same Surgeon: MIRACLE BURNS [employer] Pl Sql Developer: [none] Anesthesia: General LMA Name of the Procedure: Hysteroscopy, dilatation and curettage Jennifer ablation Findings of the Procedure: normal cavity EBL: Minimal Specimen(s) collected/removed: Endometrial Curettings Complications: None[] Condition: []Stable to recovery room Indications for Procedure: 52yo presenting with AUB/ Risks, benefits and alternatives to the proposed procedure were discussed with the patient and informed consent was obtained. Description of Procedure: The patient was taken to the operating room and placed in the dorsal supine position. General anesthesia was obtained without difficulty by our anesthesia colleagues. A timeout was performed. The patient was placed in dorsal lithotomy position. The patient was prepped and draped in the usual sterile fashion. The bladder was emptied for 25cc total. A weighted speculum was placed in the vaginal vault and the anterior lip of the cervix was grasped with a single-tooth tenaculum. The cervix was gently dilated with Hegar dilators to accommodate the hysteroscope. Uterus sounded to 8 cm. The hysteroscope was inserted and The uterine cavity was visualized. Both ostia were seen. The hysteroscope was then removed. An endometrial curettings were obtained until there was a good uterine cry. The [facility] was sent to pathology for further analysis.Next attention was paid to placing the Jennifer ablation device. Uterus had sounded to 8 cm the cervical length was noted to be 3.5 cm. The setting on the Jennifer was 4.5 cm. The balloon was then inflated to create a good seal. The device was taken through its protocol and was noted to be in good position. It was engaged 420 seconds. The device was then deflated and removed without difficulty. The hysteroscope was reinserted and there was noted to be a good burn throughout the uterine cavity. Pictures were obtained. The procedure was complete and all instruments were removed from the vagina. S ponge and instrument counts were correct. The patient was awakened from anesthesia and taken to the recovery room in stable condition. EBL was less than 50 cc fluids were 800cc urine output was 25 cc. I/O 1250/1250 Vitals - Labs Vital Signs - I&O Vital Signs Date Time Temp Pulse Resp B/P (MAP) Pulse Ox O2 Delivery O2 Flow Rate FiO2 05/14/23 06:50 36.3 85 18 113/86 (95) 98 Room Air MIRACLE BURNS DO May 14, 2023 09:05
[2023-05-14] MEDS ORDERED: ACHD5005 PO (09:07)
[2023-05-14] MEDS ORDERED: IBUP-1780 PO (09:07)
--- NOTE | 2023-05-14 09:08 | Anesthesia-General Post-Op ---
General Patient Condition Mental Status/LOC: Same as Preop Cardiovascular: Satisfactory Nausea/Vomiting: Absent Respiratory: Satisfactory Pain: Controlled Complications: Absent Post Op Complications Complications None Follow Up Care/Instructions Patient Instructions None needed. Anesthesia/Patient Condition Patient Condition Patient is doing well, just transferred back to [facility] with no complaints, stable vital signs, no apparent adverse anesthesia problems. No complications reported per nursing. GABRIELLA MCCOLLUM DO May 14, 2023 09:08
--- NOTE | 2023-05-14 09:09 | Discharge Inst-Simple/Standard ---
Discharge Inst-Standard Reconcile Patient Problems Problems Reviewed?: Yes Discharge Medications New, Converted or Re-Newed RX: Transmitted to Pharmacy Patient Instructions/Follow Up Plan of Care/Instructions/FU: pelvic rest for 2wks f/u in 1 wk Activity as Tolerated: Yes Discharge Diet: Regular Diet Return to The Hospital For: increased pain, bleeding MIRACLE BURNS DO May 14, 2023 09:09
[2023-05-14] MEDS: morphine INJ 10 MG/ML 1ML (SYR OR VIAL) IVP ONE ×2 (09:30→09:35)
[2023-05-14] MEDS ORDERED: morphine INJ 10 MG/ML 1ML (SYR OR VIAL) ONE (09:35)
[2023-05-14] MEDS ORDERED: HYDROcodone/ACETAMINOPHEN 5 MG/325 MG TABLET ONE (10:22)
[2023-05-14] MEDS ORDERED: HYDROcodone/ACETAMINOPHEN 5 MG/325 MG TABLET PO ONE (10:30)
== END 2023-05-14 10:58 | disposition home or self-care (01) ==
LOC: SDC 06:41
PROVIDERS: ATTEND Obstetrics & Gynecology
DX: N93.9 Abnormal uterine and vaginal bleeding, unspecified (principal); R93.89 Abnormal findings on diagnostic imaging of other specified body structures
CPT/HCPCS: 84703; 87081